=== PATIENT | male | born 1960 | race Caucasian/White ===

== ENCOUNTER 2023-03-31 06:39 | Outpatient (OUT) | payer OTHER, SELFPAY ==
--- NOTE | 2023-03-31 06:46 | MR_ITS ---
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 TECHNIQUE: A variety of imaging planes and parameters were utilized for visualization of suspected pathology. FINDINGS: For the purposes of numbering, sagittal T2 image # 8 extends from the T12 vertebral body superiorly to the S2-3 level inferiorly. PARASPINAL AREA: Normal with no visible mass. BONES: CORD/CAUDA EQUINA: Normal caliber, contour, and signal intensity. DISC LEVELS: 12-L1: No significant disc/facet abnormality, spinal stenosis, or foraminal stenosis. L1-L2: No significant disc/facet abnormality, spinal stenosis, or foraminal stenosis. L2-L3: Early degenerative disc disease is present without focal protrusion or neural impingement. L3-L4: No significant disc/facet abnormality, spinal stenosis, or foraminal stenosis. L4-L5: Mild right, moderate left foramen narrowing. No significant central canal narrowing. Mild diffuse disc bulging with minimal disc at reduction. Mild degenerative facet arthropathy and ligamentum flavum thickening. L5-S1: Minimal central canal and bilateral foramen narrowing. Mild diffuse disc bulging with posterior central disc protrusion projecting 5 mm into the central canal. Moderate disc height reduction. Mild right, moderate left degenerative facet arthropathy. IMPRESSION: 1. L4-5 moderate left foramen narrowing which may contribute to patient's symptoms. 2. L5-S1 disc protrusion without significant central canal or foramen narrowing. No appreciable annular tear. Electronically authenticated by: GARCIA VERMA Date: 03/31/2023 15:20
== END 2023-03-31 06:40 ==
PROVIDERS: PCP Family Medicine; Visit Provider Family Medicine
DX: M51.17 Intervertebral disc disorders with radiculopathy, lumbosacral region (principal)
CPT/HCPCS: 72148

== ENCOUNTER 2023-05-27 12:04 | Outpatient (OUT) | payer OTHER, SELFPAY ==
--- NOTE | 2023-05-27 13:30 | CA_ITS ---
[facility] Test Date: 2023-05-27 Pat Name: Harrison Nichols Department: Room: - Gender: Male Material Expediter: DIPIKA LOYOLA : 1960 Requested By: [id number] Order Number: [id number] Reading MD: JANET GRIFFIN Interpretive Statements Biphasic doppler waveforms PVR waveforms with normal upstroke, amplitude and dicrotic notch Right: - no significant pressure gradient between cuffs - normal STEPHANIE Left: - no significant pressure gradient between cuffs - normal STEPHANIE Impression: Normal arterial evaluation of the lower extremities without hemodynamic impairment of the B/L lower extremities at rest (right STEPHANIE 1.20, left STEPHANIE 1.12) Electronically Signed On 05-28-2023 7:24:44 EDT by JANET GRIFFIN
== END 2023-05-27 12:05 | disposition home or self-care (01) ==
LOC: CARD 12:04
PROVIDERS: PCP Family Medicine; Visit Provider Physician Assistant
DX: R09.89 Other specified symptoms and signs involving the circulatory and respiratory systems (principal)
CPT/HCPCS: 93923

== ENCOUNTER 2023-11-13 09:05 | Outpatient (OUT) | payer OTHER, SELFPAY ==
[2023-11-13 09:20] LABS: Basophils Percent Auto 0.5 % (0.2-2.0); Eosinophils Absolute Auto 0.3 10^3/uL (0.0-0.7); Eosinophils Percent Auto 3.8 % (0.9-7.0); Hematocrit 50.5 % (42.0-54.0); Immature Granulocytes Abs Auto 0.03 10^3/uL (0.00-0.03); Immature Granulocytes Pct Auto 0.4 % (0.0-0.5); Lymphocytes Absolute Auto 2.1 10^3/uL (1.2-3.8); Lymphocytes Percent Auto 28.5 % (20.5-60.0); Mean Corpuscular HGB Conc 33.7 g/dL (29.9-35.2); Mean Corpuscular Hemoglobin 28.7 pg (25.9-34.0); Mean Corpuscular Volume 85.2 fL (80.0-94.0); Mean Platelet Volume 9.4 fL (9.5-13.5); Monocytes Absolute Auto 0.9 10^3/uL (0.3-0.8); Monocytes Percent Auto 11.6 % (1.7-12.0); Neutrophils Percent Auto 55.2 % (43.0-75.0); Platelet Count 235 10^3/uL (150-450); Red Blood Count 5.93 10^6/uL (4.70-6.10); Red Cell Distribution Width 13.6 % (11.0-15.0); White Blood Count 7.3 10^3/uL (4.0-11.0)
[2023-11-13 09:38] LABS: Estimated Average Glucose 126 mg/dL
[2023-11-13 10:21] LABS: Alanine Aminotransferase 42 U/L (16-63); Albumin Globulin Ratio 0.9; Albumin Level 3.7 g/dL (3.4-5.0); Alkaline Phosphatase 58 U/L (46-116); Anion Gap 9.6; Aspartate Amino Transferase 20 U/L (15-37); BUN Creatinine Ratio 13.4; Bilirubin Total 0.6 mg/dL (0.2-1.0); Calcium 9.4 mg/dL (8.5-10.1); Carbon Dioxide 35.5 mmol/L (21.0-32.0); Chloride 99 mmol/L (98-107); Cholesterol 166 mg/dL (<=200); Estimated GFR (African America >60 (>=60); Estimated GFR (Non-African Ame 57 (>=60); Free T3 2.91 pg/mL (2.18-3.98); Globulin 4.3 g/dL; Glucose 108 mg/dL (74-106); HDL Cholesterol 56 mg/dL (40-60); LDL Cholesterol Calculated 89.2 mg/dL; Potassium 3.1 mmol/L (3.5-5.1); Sodium 141 mmol/L (136-145); Thyroid Stimulating Hormone 3.282 uIU/mL (0.358-3.740); Triglycerides 104 mg/dL (<=150); VLDL CHOLESTEROL 20.8 mg/dL
[2023-11-13 10:26] LABS: Prostate Specific Antigen Scrn 1.26 ng/mL (<=4.00)
== END 2023-11-13 09:06 | disposition home or self-care (01) ==
LOC: LAB 09:06
PROVIDERS: PCP Family Medicine; Visit Provider Family Medicine
DX: Z00.00 Encounter for general adult medical examination without abnormal findings (principal); E78.5 Hyperlipidemia, unspecified; R73.09 Other abnormal glucose; Z12.5 Encounter for screening for malignant neoplasm of prostate
CPT/HCPCS: 36415; 80053; 80061; 83036; 84436; 84443; 84481; 85025; G0103

== ENCOUNTER 2024-03-12 08:12 | Outpatient (OUT) | payer OTHER, SELFPAY ==
--- NOTE | 2024-03-12 08:20 | XR_ITS ---
[address] [address] Patient Name: KIM BOWEN MRN: [id number] date: 1960 Sex: M Assigned Patient Location: LAB Current Patient Location: LAB Accession/Order Number: [id number] Exam Date: 03/12/2024 08:25 Report Date: 03/12/2024 09:35 At the request of: AVI YEPEZ Procedure: XR knee LT 3V PROCEDURE: XR knee LT 3V COMPARISON: None. HISTORY: Left Knee Pain M25.562 FINDINGS: BONES:No acute fracture or dislocation. Minimal degenerative changes with marginal osteophyte formation. SOFT TISSUES:Negative. No visible soft tissue swelling. EFFUSION:None visible. OTHER: Negative. XR/XR knee LT 3V IMPRESSION: No acute abnormality Electronically authenticated by: OSCAR FRANCO Date: 03/12/2024 09:35
--- OUTSIDE RECORDS SUMMARY | 2024-03-12 08:24 | XMS_ITS | CCD ---
Author Organization [facility] Care Team Providers Care University Professor Name Role Phone Unavailable Unavailable DR AVI CERVANTES Attending Unavailable DR AVI CERVANTES Admitting Unavailable DR AVI CERVANTES Attending Unavailable DR AVI CERVANTES Admitting Unavailable DR AVI CERVANTES Consulting Unavailable WEST, DR OSCAR Ingram Consulting Unavailable Avi Cervantes Unavailable MD Avi Cervantes Primary Care Provider [phone] Bijan Betts Jr Attending Provider [phone] Bijan Betts Jr Attending Unavailable Bijan Betts Jr Admitting Unavailable Avi Cervantes Primary Care Unavailable Leslie DAVALOS, Dr. Reilly Hernandez Referring Unavailable Leslie DAVALOS, Dr. Reilly Hernandez Attending Unavailable Dr. Avi Cervantes Primary Care Unavail able Avi Cervantes MD Unavailable Avi Cervantes MD Primary Care Provider [phone] DARREN HARRIS Attending Unavailable AVI CERVANTES Primary Care Unavailable DARREN HARRIS Attending Unavailable JESSICA CAMP Admitting Unavailable JESSICA CAMP Attending Unavailable JESSICA CAMP Referring Unavailable JUAN R BEY Attending Unavailable AVI CERVANTES Primary Care Unavailable Allergies Allergy Classification Reported Allergen(s) Allergy Type Date of Onset Reaction(s) Facility (13 sources) Amoxicillin; Translations: [amoxicillin] Drug Allergy 09-26-2020 Judith Beck [facility] (1 source) Amoxicillin Drug Allergy [facility] (1 source) traMADol Drug Allergy [facility] (1 source) Amoxicillin Drug Allergy 09-26-2020 [facility] Medications Current Medications Medication Drug Class(es) Dates Sig (Normalized) Sig (Original) ascorbic acid 1000 mg oral tablet (1 source) Vitamin C Start: 09-26-2020 take 1 g by mouth once daily Ascorbic Acid (Vitamin C) (Vitamin C) 1,000 mg Tablet Active 1 GM PO Daily September 26, 2020 1:00am aspirin 81 mg delayed release oral tablet (10 sources) Platelet Aggregation Inhibitor, Nonsteroidal Anti-inflammatory Drug Start: 09-26-2020 take 81 mg by mouth once daily Aspirin Active 81 MG PO Daily September 26, 2020 1:00am aspirin 81 mg ca p Take by mouth. 0 Active Comment on above: Take by mouth. atorvastatin 40 mg oral tablet (1 source) HMG-CoA Reductase Inhibitor Start: 09-26-20 take 40 mg by mouth once daily Atorvastatin Active 40 MG PO Daily September 26, 2020 1:00am carvedilol 6.25 mg oral tablet (1 source) alpha-Adrenergic Pina, beta-Adrenergic Pina Start: 09-26-20 take 6.25 mg by mouth twice daily Carvedilol Active 6.25 MG PO Twice daily September 26, 2020 1:00am fexofenadine hydrochloride 180 mg oral tablet (1 source) Histamine-1 Receptor Antagonist Start: 09-26-20 take 180 mg by mouth once daily Fexofenadine Active 180 MG PO Daily September 26, 2020 1:00am fluocinonide 0.5 mg/ml topical cream (1 source) Corticosteroid Start: 09-26-20 Fluocinonide Active 1 APPLIC TOPICAL Daily September 26, 2020 1:00am Multivitamin preparation (1 source) Start: 09-26-20 take 1 tablet by mouth once daily in the morning Multivitamin Active 1 TAB PO Every morning September 26, 2020 1:00am Completed/Discontinued Medications Medication Drug Class(es) Dates Sig (Normalized) Sig (Original) acetaminophen 325 mg / HYDROcodone bitartrate 5 mg oral tablet (8 sources) Opioid Agonist Start: 05-02-2023 take 1 tablet by mouth every six hours as needed HYDROcodone-aceta minophen (NORCO) 5-325 mg per tablet Take 1 tablet by mouth every 6 hours as needed. 0 05/02/2023 Active Start: 09-26-2020 take 1 tablet by zainab th every six hours Hydrocodone-Acetaminophen Active 1 TAB P O Q6H September 26, 2020 1:00am [place] 5-325 MG T ABS TAKE 1 TABLET EVERY 4 TO 6 HOURS NEEDED. Quantity: 0 Refills: 0 Ordered: 13-May-2023 DO Active Comment on above: Take 1 tablet by zainab th every 6 hours as needed. betamethasone 0.5 mg/ml / clotrimazole 10 mg/ml topical cream (5 sources) Azole Antifungal, Corticosteroid Start: 023 clotrimazole-betameth asone (LOTRISONE) cream APPLY TO BOTH FEET TWICE A DAY 0 05/13/2023 Active Comment on above: APPLY TO BOTH FEET T WICE A DAY chlorthalidone 25 mg oral tablet (10 sources) Thiazide-like Diuretic Start: 020 take 1 tablet by mouth once daily at mealtime chlorthalidone (HYGROTON) 25 mg tablet TAKE 1 TABLET BY MOUTH EVERY DAY IN THE MORNING WITH FOOD FOR 90 DAYS 0 04/29/2023 Active Comment on above: TAKE 1 TABLET BY ZAINAB TH EVERY DAY IN THE MORNING WITH FOOD FOR 90 DAYS famotidine 40 mg oral tablet (4 sources) Histamine-2 Receptor Antagonist take 1 tablet by mouth at bedtime Famotidine 40 MG Oral Tablet TAKE 1 TABLET AT BEDTIME. Quantity: 30 Refills: 1 Ordered: 07-May-2022 DO Active gabapentin 300 mg oral capsule (7 sources) Anti-epileptic Agent Start: 023 take 1 capsule by mouth twice daily gabapentin (NEURONTIN) 300 mg capsule Take 300 mg by mouth twice daily. 0 05/27/2023 Active take 1 capsule by mouth twice da jose Gabapentin 300 MG Oral Capsule TAKE 1 CAPSULE TWICE DAILY. Quantity: 0 Refills: 0 Ordered: 13-May-2023 DO Active Comment on above: Take 300 mg by mouth twice daily. omeprazole 40 mg delayed release oral capsule (10 sources) Proton Pump Inhibitor Start: 09-26-2020 omeprazole (PRILOSEC) 40 mg capsule rosuvastatin calcium 20 mg oral tablet (9 sources) HMG-CoA Reductase Inhibitor Start: 05-30-2023 rosuvastatin (CRESTOR) 20 mg tablet Start: 12-10-2021 take 1 tablet by zainab th at bedtime Rosuvastatin Calcium 20 MG Oral Tablet take 1 tablet by mouth at bedtime Quantity: 90 Refills: 3 Ordered: 13-May-2023 Reilly Nelson MD Start : 10-Dec-2021 Active Problems Active Problems Problem Classification Problem Date Documented Date Episodic/Chronic Coronary atherosclerosis and other heart disease (4 sources) Coronary arteriosclerosis; Translations: [Coronary atherosclerosis of unspecified type of vessel, [place] or graft] Chronic Diabetes mellitus without complication (1 source) Other abnormal glucose; Translations: [OTHER ABNORMAL GLUCOSE] Onset: 12-21-2021 Episodic Disorders of lipid metabolism (5 sources) Hyperlipidemia; Translations: [Other and unspecified hyperlipidemia] Chronic Esophageal disorders (4 sources) Gastroesophageal reflux disease; Translations: [Esophageal reflux] Chronic Essential hypertension (4 sources) Benign essential hypertension; Translations: [Benign essential hypertension] Chronic Immunizations and screening for infectious disease (4 sources) Patient encounter status; Translations: [Other specified vaccination] Episodic Other nervous system disorders (1 source) Meralgia paresthetica of left leg; Translations: [Meralgia paresthetica, left lower limb] 2023 Chronic Other nervous system disorders (1 source) Meralgia paresthetica, left lower limb; Translations: [Meralgia paresthetica of left side] Onset: 2023 Chronic Other nervous system disorders (1 source) Other chronic pain; Translations: [Chronic midline low back pain without sciatica] Onset: 2023 Chronic Other nutritional; endocrine; and metabolic disorders (4 sources) Obesity; Translations: [Obesity, unspecified] Chronic Other screening for suspected conditions (not mental disorders or infectious disease) (1 source) Encounter for screening for malignant neoplasm of prostate; Translations: [ENC SCREEN MALIG NEOPLASM PROSTATE] Onset: 12-21-2021 Episodic Spondylosis; intervertebral disc disorders; other back problems (6 sources) Prolapsed lumbar intervertebral disc; Translations: [Other intervertebral disc displacement, lumbar region] Onset: 06-02-2023 06-02-2023 Chronic Spondylosis; intervertebral disc disorders; other back problems (7 sources) Lumbar radiculopathy; Translations: [Radiculopathy, lumbar region] Onset: 06-02-2023 06-02-2023 Episodic Unclassified (1 source) LOW BACK PAIN, UNSPECIFIED; Translations: [LOW BACK PAIN, UNSPECIFIED] Onset: 12-21-2021 Unclassified (1 source) Chronic midline low back pain without sciatica; Translations: [Chronic midline low back pain without sciatica] Onset: 2023 Past or Other Problems Problem Classification Problem Date Documented Da te Episodic/Chronic Unclassified (5 sources) Never smoked tobacco; Translations: [Never a smoker] Results Test Name Value Interpretation Reference Range Facility OV 2023 CNOV Office Visit (SPSLU ) KIM NICHOLS ([id number]) 1960 M Date Time Provider Department 08/04/23 8:00 AM JUAN R BEY [facility] During your visit today, we recorded the following information about you: Weight Height 120.2 kg 1.829 m Bossman Saunders 2023 9:14 AM Signed Pt has been identified by name and birthdate: Yes Allergies reviewed: Yes Medication - prescribed and OTC reviewed and updated: Yes Latex allergy: no. Have you had a recent problem with pain? Yes LOCATION: Lower back pain with radiating left left PAIN SCALE: 3 on a scale of 0-10 worse at 10-10 PAIN CHARACTER: burning and numbness DURATION: (How long have you had the pain?) 3 years FREQUENCY: (How often does the pain occur?) occurs intermittently AGGRAVATING FACTORS: activity, standing, and walking ALLEVIATING FACTORS: sitting, resting, lying supine, and medications - muscle relaxants, NSAIDs, and opioids Medications: See medication reconciliation list in [facility] MEDICATIONS: Gabapentin, [place], Tylenol Have you ever seen a pain management physician: No Have you ever taken any pain medications (Narcotics): Yes; Type(s) AND Duration: 1 day How is your appetite?: normal Do you feel safe in the home? Yes Do you have concerns about falling or have you fallen in the past year? No Do you have difficulty performing or completing routine daily living activities? No Juan R Andrew MD 2023 9:14 AM Signed SPINE SURGERY NEW PATIENT This is an in-person visit. PCP: Avi Cervantes MD REFERRING PROVIDER: Clara PACHECO SUBJECTIVE HISTORY OF PRESENT ILLNESS: Kim Nichols is a 63 year old male presenting alone. CHIEF COMPLAINT: Left lateral thigh altered sensation, non radiating, low back pain PRECIPITATING EVENT: None DURATION OF SYMPTOMS: Greater Than 6 Months 63M with isolated left lateral thigh altered sensation. Non radiating. Reports he can walk miles without issues, no radiating pain down his leg. Reports chronic history of low back pain, but left thigh altered sensation is new within last 6 months. Denies it being painful. Reports he underwent L5 SUKUMAR with improvement in his symptoms for < 3 days. Denies bowel or bladder issues. 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 Denies any weakness. No pain, left thigh altered sensation. DERMATOMAL DISTRIBUTION: Not applicable AMBULATORY STATUS: Independent Community Distances ANTIPLATELET OR ANTICOAGULATION STATUS: No PREVIOUS CONSERVATIVE TREATMENTS: Membrane stabilizers PT HEP x 6 weeks Nsaids SUKUMAR left l5/s1 with Dr. Camp 07/01/2023 PREVIOUS SPINAL SURGERY: None ACTIVE PROBLEM LIST Lumbar Radiculopathy Displacement of Lumbar Intervertebral Disc Without Myelopathy No past medical history on file. No past surgical history on file. No family history on file. Social History Tobacco Use Smoking status: Never Smokeless tobacco: Never ALLERGIES Allergen Reactions Amoxicillin Hives, Rash MEDICATIONS: gabapentin (NEURONTIN) 300 mg capsule Take 300 mg by mouth twice daily. HYDROcodone-acetamino phen (NORCO) 5-325 mg per tablet Take 1 tablet by mouth every 6 hours as needed. omeprazole (PRILOSEC) 40 mg capsule rosuvastatin (CRESTOR) 20 mg tablet clotrimazole-betameth asone (LOTRISONE) cream APPLY TO BOTH FEET TWICE A DAY chlorthalidone (HYGROTON) 25 mg tablet TAKE 1 TABLET BY MOUTH EVERY DAY IN THE MORNING WITH FOOD FOR 90 DAYS aspirin 81 mg cap Take by mouth. REVIEW OF SYSTEMS: All are negative except those stated in the History of Present illness. Patient Entered Questionnaires Spine Questions 08/01/2023 08/03/2023 Pain Location: Lower back Lower back Pain Duration: More than 5 years - Pain over last 6 months: Every day or nearly every day in the past 6 months - Symptoms from neck/cervical spine: No No Employment Status: Retired - Involved in law suit/legal claim: No - PROMIS Score Percentiles Physical Health 08/01/2023 Physical Function Percentile 21* Sleep Percentile 12 Fatigue Percentile 24* Pain Interference Percentile 12 PROMIS SOCIAL ROLE SCORE 08/01/2023 Social Role Satisfaction Percentile 31 PROMIS Global Health Scale 08/01/2023 Physical Health Percentile 15 Mental Health Percentile 43 Percentiles provide an indication of how the patient's score ranks in relation to the general population. Higher percentile rankings indicate better function/quality of life. 50th percentile is the average of the general population and indicates half of respondents had a worse score. Depression Screening: PHQ-9 08/01/2023 Score 3 PHQ-9 Self-harm Question 08/01/2023 Thoughts that you would be better off , or of hurting yourself in some way 0 PHQ-9 Self-Harm (Item 9) response options: 0 Not at all 1 Several days 2 More than (more content not included)... [facility] 07-08-2023 [facility] Telephone (SPWYMN) KIM NICHOLS ([id number]) 1960 M Date Time Provider Department 07/08/23 JESSICA CAMP [facility] During your visit today, we recorded the following information about you: Stacy Gallagher RN 07/08/2023 12:56 PM Signed Post Spine Injection phone call: [phone] on 07/08/23 Patient denies fever, chills, new headache, prolonged numbness nor exacerbation of pain status. Injection site(s) flat and dry with no redness nor drainage. Pre Procedure Pain level: 4 Immediately Post Procedure 0 Percentage of pain relief: 70% Patient verbalized understanding that it may take up to 14 days to realize full benefit of spinal injection. Follow up as indicated on order: No follow -up Visit, patient instructed to call office 2-4 weeks. Patient reminded to bring pain diary to follow appointment. If follow up appointment indicated on order, patient encouraged to schedule follow up appointment 2-4 weeks post procedure by calling [phone] Patient does not have any questions or concerns. Patient will call office with any questions or concerns. Allergies As of Date: 07/08/2023 Noted Allergy Reaction AMOXICILLIN 09/26/2020 4 - Hives 2 - Rash Date Reviewed: 07/01/2023 Reviewed by: Fausto Pal, RN - Fully Assessed Reason for Visit: post injection follow up [Other] Prescriptions as of 07/08/2023 - gabapentin (NEURONTIN) 300 mg capsule Take 300 mg by mouth twice daily. - HYDROcodone-acetamino phen (NORCO) 5-325 mg per tablet Take 1 tablet by mouth every 6 hours as needed. - omeprazole (PRILOSEC) 40 mg capsule - rosuvastatin (CRESTOR) 20 mg tablet - clotrimazole-betameth asone (LOTRISONE) cream APPLY TO BOTH FEET TWICE A DAY - chlorthalidone (HYGROTON) 25 mg tablet TAKE 1 TABLET BY MOUTH EVERY DAY IN THE MORNING WITH FOOD FOR 90 DAYS - aspirin 81 mg cap Take by mouth. Problem List As Of Date 07/08/2023 Noted Resolved Lumbar radiculopathy [M54.16] 07/01/2023 Displacement of lumbar intervertebral disc with*07/01/2023 Encounter Status:Closed by STACY GALLAGHER on 07/08/23 [facility] HISTORY PHYSICALon HISTORY PHYSICAL HNO ID: [id number] Author: Sherice Galvin APRN.KNITTING DEMONSTRATOR Service: ? Author Type: Nurse Practitioner Type: HANDP Filed: 07/01/2023 9:05 AM Note Text: LOCAL PROCEDURE HISTORY AND PHYSICAL EXAM SERVICE DATE: 07/01/2023 SERVICE TIME: 9:04 AM Provisional Diagnosis/Treatment Plan: Transforaminal Lumbar epidural steroid injection Subjective HPI: This is a 62 year old male who presents with back pain MEDICATIONS: Prior to Admission medications as of 07/01/23 0857 Medication Sig Last Dose Taking gabapentin (NEURONTIN) 300 mg capsule Take 300 mg by mouth twice daily. 06/30/2023 Yes HYDROcodone-acetamino phen (NORCO) 5-325 mg per tablet Take 1 tablet by mouth every 6 hours as needed. 06/30/2023 Yes omeprazole (PRILOSEC) 40 mg capsule 06/30/2023 Yes rosuvastatin (CRESTOR) 20 mg tablet 06/30/2023 Yes clotrimazole-betameth asone (LOTRISONE) cream APPLY TO BOTH FEET TWICE A DAY 06/30/2023 Yes chlorthalidone (HYGROTON) 25 mg tablet TAKE 1 TABLET BY MOUTH EVERY DAY IN THE MORNING WITH FOOD FOR 90 DAYS 06/30/2023 Yes aspirin 81 mg cap Take by mouth. 06/30/2023 Yes ALLERGIES Allergen Reactions Amoxicillin Hives, Rash Objective PHYSICAL EXAM: The remainder of the physical exam is noncontributory. GENERAL: Alert, no distress, cooperative LUNGS: Lungs clear to auscultation, Good diaphragmatic excursion CARDIAC: Normal S1 and S2; no rubs, murmurs, or gallops BP 135/96 Pulse 74 Temp 36.3 ?C (97.4 ?F) (Temporal) Resp 16 SpO2 96% PAIN ASSESSMENT: PAIN EVALUATION 07/01/2023 0857 Pain Level: 4 Pain Location: Leg-Left Description: Numbness Assessment/Plan Active Problems: Lumbar radiculopathy (POA: Unknown) Assessment AND Plan: Transforaminal Lumbar epidural steroid injection Displacement of lumbar intervertebral disc without myelopathy (POA: Unknown) Assessment AND Plan: Transforaminal Lumbar epidural steroid injection Resolved Problems: * No resolved hospital problems. * Medication and Non-Pharmacologic VTE Prophylaxis/Anticoagu lants VTE Prophylaxis: NA SIGNATURE: Sherice Galvin APRN.CNP PATIENT NAME: Kim Nichols DATE: July 01, 2023 TIME: 9:04 AM Normal [facility] OPERATIVE NOon 07-01-2023 OPERATIVE NO HNO ID: [id number] Author: Jessica Camp DO Service: Physical Medicine AND Rehabilitation Author Type: Physician Type: Operative Report Filed: 07/01/2023 9:40 AM Note Text: PROCEDURE REPORT Surgery/Procedure Date: July 01, 2023 Interventionalist: Jessica Camp DO Procedure(s): Left L5 transforaminal epidural steroid injection Pre-Op/Pre-Procedure Diagnosis: Lumbar radiculopathy Post-Op Diagnosis: same SUBJECTIVE: Kim Nichols is a 62 year old male, who presents to the [facility] for a left L5 transforaminal epidural steroid injection. This is his first (1) procedure. He states he is NPO and has a road driver for return home. Pain is central low back, intermittently radiates to the left anterolateral thigh with burning/numbness, does not go distally. Pain is currently 2/10, but can get to 10/10 at the highest. I have reviewed the nurses notes and am aware of the patient's history. OBJECTIVE: Vital signs are documented in the paper chart prior to and throughout the procedure. INFORMED CONSENT: Risks, benefits, alternatives and personnel discussed with patient who consents to proceed. A formal sign in and timeout with team members and patient present were performed prior to procedure start/delivery of medication. PROCEDURE: Procedure: Left L5 Transforaminal Epidural Steroid Injection Kim Nichols was transferred to the Block Room. Time out was performed. After placement of routine monitors (blood pressure, pulse oximetry, and heart rate monitored by dedicated nurse), the procedure was performed in the usual manner. Anesthesia: Local only Start time: 927 Stop time: 934 Fluoroscopy time: 22 seconds Estimated blood loss: none Level: left L5 Technique: Patient positioned prone. Procedure area was prepped with Betadine and draped with sterile coverings. An oblique approach was used with C-arm guidance. The skin was anesthetized with 1% lidocaine. A #22 gauge short-bevel spinal needle was inserted to the proper location within the intervertebral foramen using intermittent fluoroscopy. Position was confirmed with iohexol contrast under live fluoroscopy. Needle position was verified in two views and epidurogram was visualized and recorded. 10 mg of dexamethasone and 2 cc of lidocaine 1% was injected. The spinal needle was then removed. Adequate hemostasis was obtained at the needle puncture site. The patient's back was cleaned and a sterile dressing was applied. Patient tolerated the procedure well and was taken conscious and in stable condition to the recovery room for observation. No complications as a result of this procedure. Post procedure precautions and instructions were reviewed with the patient who verbalized understanding. I/primary surgeon/proceduralist performed the entire procedure. No complications were encountered. Estimated blood loss: none Specimens: none Implanted devices: none Drains: none Post procedure physical exam unchanged from pre procedure. Significant findings: AP was oblique 5 left Oblique 35 L5 spinous process appears to have spina bifida occulta ASSESSMENT: Pre Procedure diagnosis: Lumbar radiculopathy Post-Procedure diagnosis: same Pre Procedure Pain Level: same as above Post Procedure Pain Level: as documented in nursing notes and paper chart Purposeful response to verbal or tactile stimulation: Yes PLAN: Post-procedure instructions reviewed with patient. Patient is to complete post-procedure pain diary and return for follow-up in 2-3 weeks. Patient is to contact our office with any question or if any side effects are noted. Kim Nichols was transferred to the recovery room and is to be discharged home in stable condition. DO Fátima Castrejon [facility] KIM NICHOLS ([id number]) 1960 M Date Time Provider Department 06/26/23 [facility] During your visit today, we recorded the following information about you: Oscar Rollins LPN 06/26/2023 9:20 AM Signed Phoned patient and message left for Kim to confirm appointment for Kim Nichols for spine procedure on 07/01/2023. Patient notified that [place] will call patient the night before with the time to arrive for injection. Patient verbalized understanding of the following: -Provided education on spine procedure and answered questions related to spine injection procedure. -Applied Technologist is needed to drive patient home. -NPO 6 hours prior to appointment, ok to take morning medications with sip of water. -Not to take any pain medications the day of injection to see how well injection works. -Do not take any NSAIDs/anti-inflammat ories (mobic, ibuprofen, advil, aleve, etc) the day of procedure for all lumbar, hip, and sacroiliac joint procedures. Hold NSAIDs for 1 day prior to procedure for cervical cases. Allergies reviewed: Yes Allergy to IV contrast dye or steroids: No Taking any antiplatelet/anticoag ulant (blood thinners): No Taking aspirin 81mg: Yes, requested to hold the day of procedure Any open wounds/sores?: Patient to report Taking Antibiotics?: Patient to report. Diabetic: No Patient given number [phone], spine injections schedulers, if there is any need to reschedule/ change appointment during normal business hours. Active MyChart users were informed to read MyChart procedure instructions prior to appointment. AMBULATORY PATIENT EDUCATION TOPIC: SPINE INJECTION PROCEDURE, PRE-INJECTION AND POST- INJECTION INSTRUCTIONS READINESS TO LEARN COGNITIVE ABILITY: ALERT AND ORIENTED MOTIVATION TO LEARN: Message FAMILY SUPPORT: Unable to assess - Family not present INSTRUCTION PROVIDED TO: Patient PATIENT LEARNS BEST BY: INDIVIDUAL INSTRUCTION FACTORS AFFECTING LEARNING: None PHYSICAL LIMITATIONS AFFECTING LEARNING: None LEARNING RESPONSE METHOD OF INSTRUCTION: TEACH BACK AND INDIVIDUAL INSTRUCTION PATIENT / FAMILY RESPONSE: VERBALIZED UNDERSTANDING OF PRE AND POST INJECTION INSTRUCTIONS Allergies As of Date: 06/26/2023 Noted Allergy Reaction AMOXICILLIN 09/26/2020 4 - Hives 2 - Rash Date Reviewed: 06/02/2023 Reviewed by: Anna Spencer MA - Fully Assessed Reason for Visit: Preparations For Procedures [899] Cmt: Pre-injection instructions Prescriptions as of 06/26/2023 - gabapentin (NEURONTIN) 300 mg capsule Take 300 mg by mouth twice daily. - HYDROcodone-acetamino phen (NORCO) 5-325 mg per tablet Take 1 tablet by mouth every 6 hours as needed. - omeprazole (PRILOSEC) 40 mg capsule - rosuvastatin (CRESTOR) 20 mg tablet - clotrimazole-betameth asone (LOTRISONE) cream APPLY TO BOTH FEET TWICE A DAY - chlorthalidone (HYGROTON) 25 mg tablet TAKE 1 TABLET BY MOUTH EVERY DAY IN THE MORNING WITH FOOD FOR 90 DAYS - aspirin 81 mg cap Take by mouth. Problem List As Of Date: 06/26/2023 (None) Encounter Status:Closed by OSCAR ROLLINS on 06/26/23 [facility] CNOVon 06-02-2023 CNOV Office Visit (SPNSMN ) KIM NICHOLS ([id number]) 1960 M Date Time Provider Department 06/02/23 1:40 PM DARREN HARRISMN During your visit today, we recorded the following information about you: Pulse Respiration Blood pressure Weight 63/minute 18/minute 128/84 117 kg Height 1.829 m Darren Harris APRN.CNP 06/03/2023 1:01 PM Signed SPINE SURGERY OUTPATIENT CONSULT This is an in-person visit. SERVICE DATE: 06/02/2023 PCP: No primary care provider on file. REFERRING PROVIDER: No referring provider defined for this encounter. Consult requested for an opinion regarding the evaluation and treatment of left leg pain. My final impression and recommendations will be communicated back to the requesting physician by way of the shared medical record or letter via US mail. SUBJECTIVE Kim Nichols is a 62 year old male presenting alone. CHIEF COMPLAINT: low back pain and left leg pain Patient states that he has always had LBP but over the last year it has gotten worse and he started having left leg pain. Denies any weakness, Denies bowel and bladder incontinence. Denies trouble using hands. Denies unsteady gait and feeling unbalanced. States he gets intermittent numbness in his leg but this is rare, denies right leg symptoms. His PCP started him on Gabapentin BID 300 mg which states has helped significantly with him pain. He also is prescribed [place] for breakthrough pain which he only takes PRN. He has not done any recent PT, discussed with patient that PT will be beneficial to him. 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 Never tried injections HISTORY OF PRESENT ILLNESS PRECIPITATING EVENT: None DURATION OF SYMPTOMS: Greater Than 1 Year PAIN EVALUATION 06/02/2023 1322 Pain Level: 3 Pain Location: Back-Lower Description: Aching;Dull Duration Amount of Time: 7 Duration Units: Months Frequency: Intermittent Intervention/Comfort measure: Medication;Heat;Exerc ise Pain Radiation: down the left thigh, below the left knee, and to the left foot/feet Aggravating Factors: Flexion, Standing, Walking Alleviating Factors: Medications DERMATOMAL DISTRIBUTION: Left: L4 and L5 AMBULATORY STATUS: Independent Community Distances ANTIPLATELET OR ANTICOAGULATION STATUS: No PREVIOUS CONSERVATIVE TREATMENTS: See HPI PREVIOUS SPINAL SURGERY: None There is no problem list on file for this patient. No past medical history on file. No past surgical history on file. No family history on file. Social History Tobacco Use Smoking status: Never Smokeless tobacco: Never ALLERGIES Allergen Reactions Amoxicillin Hives, Rash MEDICATIONS: gabapentin (NEURONTIN) 300 mg capsule Take 300 mg by mouth twice daily. HYDROcodone-acetamino phen (NORCO) 5-325 mg per tablet Take 1 tablet by mouth every 6 hours as needed. omeprazole (PRILOSEC) 40 mg capsule rosuvastatin (CRESTOR) 20 mg tablet clotrimazole-betameth asone (LOTRISONE) cream APPLY TO BOTH FEET TWICE A DAY chlorthalidone (HYGROTON) 25 mg tablet TAKE 1 TABLET BY MOUTH EVERY DAY IN THE MORNING WITH FOOD FOR 90 DAYS aspirin 81 mg cap Take by mouth. REVIEW OF SYSTEMS: PAIN ASSESSMENT: See HPI. GENERAL: Denies fever, chills malaise and weight loss. HEENT: No recent change in vision or hearing. CARDIOVASCULAR: Denies chest pain, history of A-fib, valvular disease, or pacemaker/ICD. RESPIRATORY: Denies SOB, sputum production, and hemoptysis. GI: Denies GI ulcers, inflammatory disease, or liver disease. : Denies change in frequency or urgency, kidney disease, and burning with urination. MUSCULOSKELETAL: Positive for low back pain SKIN: Denies rash or itching. PSYCHOLOGICAL: Denies uncontrolled depression or anxiety. NEURO: Denies CVA, seizures, headaches. ENDOCRINE: Denies diabetes, thyroid disease. HEMATOLOGY/LYMPHOLOGY : Denies cancer, bleeding or clotting disorders, anemia,and DVT's. ALLERGIC/IMMUNOLOGICA L: Denies risks for infection, or recent MRSA infections. Patient Entered Questionnaires PROMIS Score Percentiles Percentiles provide an indication of how the patient's score ranks in relation to the general population. Higher percentile rankings indicate better function/quality of life. 50th percentile is the average of the general population and indicates half of respondents had a worse score. Depression Screening: PHQ-9 Self-Harm (Item 9) response options: 0 Not at all 1 Several days 2 More than half the days 3 Nearly every day PHQ-9 Levels: 0-4 No to mild depression 5-9 Mild depression 10-14 Moderate depression 15-19 Moderately severe depression 20-27 Severe depression OBJECTIVE: PHYSICAL EXAM BP 128/84 Pulse 63 Resp 18 Ht 182.9 cm (6') Wt 117 kg (258 lb) SpO2 95% BMI 34.99 kg/m? GENERAL APPEARANCE: Well nourished, well de (more content not included)... Normal [facility] Office Visit (Cardiology)on 05-13-2023 Follow-up visit Diagnoses/Problems Assessed Coronary disease (414.00) (I25.10) Essential hypertension, benign (401.1) (I10) Hyperlipidemia (272.4) (E78.5) Class 2 obesity with body mass index (BMI) of 36.0 to 36.9 in adult (278.00,V85.36) (E66.9,Z68.36) Never a smoker Orders Class 2 obesity with body mass index (BMI) of 36.0 to 36.9 in adult Healthy Weight Tips; Status:Complete - Retrospective Authorization; Done: [id number] Some eating tips that can help you lose weight.; Status:Complete - Retrospective Authorization; Done: [id number] Coronary disease, Hyperlipidemia Renew: Aspirin EC Low Dose 81 MG Oral Tablet Delayed Release; TAKE 1 TABLET DAILY DIRECTED Hyperlipidemia Renew: Rosuvastatin Calcium 20 MG Oral Tablet; take 1 tablet by mouth at bedtime SocHx: Never a smoker Tobacco Use Screening; Status:Complete; Done: [id number] Patient Instructions Please bring all medicines, vitamins, and herbal supplements with you when you come to the office. Prescriptions will not be filled unless you are compliant with your follow up appointments or have a follow up appointment scheduled as per instruction of your physician. Refills should be requested at the time of your visit. Follow up as needed only Chief Complaint KIM NICHOLS is being seen for an annual follow-up of. History of Present Illness Patient returns in follow-up of problems as noted. In the interim he is done well. He has been aggressively dieting and has lost 20 or 30 pounds. He is pleased in this regard and this was discussed in great detail. I advised him that continued weight loss will more than likely bring his blood pressure down and blood sugar under control and ultimately his blood pressure medicine may have to be reduced or discontinued. He understands the concept well and will keep an eye out for orthostatic symptomatology We discussed other management. I believe he requires aspirin lifelong and the rationale for this was explained. I also advocated lifelong treatment of hyperlipidemia with statins. He understands this recommendation as well. He expresses a desire to henceforth follow-up predominantly with primary care physician and I advised him this is a good idea and acceptable. He is on appropriate therapy and I will defer management of blood sugar and hypertension influenced by weight loss to the primary care physician henceforth. He was educated regarding symptoms to watch for and encouraged to call if they arise or occur. Surgical History Problems History of Cardiac catheterization History of Cholecystectomy History of Complete colonoscopy Current Meds Medication NameInstruction Aspirin EC Low Dose 81 MG Oral Tablet Delayed ReleaseTAKE 1 TABLET DAILY DIRECTED. Chlorthalidone 25 MG Oral TabletTAKE 1 TABLET DAILY. Famotidine 40 MG Oral TabletTAKE 1 TABLET AT BEDTIME. Gabapentin 300 MG Oral CapsuleTAKE 1 CAPSULE TWICE DAILY. [place] 5-325 MG TABSTAKE 1 TABLET EVERY 4 TO 6 HOURS NEEDED. Omeprazole 40 MG Oral Capsule Delayed ReleaseTAKE 1 CAPSULE Daily Rosuvastatin Calcium 20 MG Oral Tablettake 1 tablet by mouth at bedtime Allergies Medication amoxicillin Adverse Reaction; Rash; Recorded By: Jolanta Huitron; 12/10/2021 10:44:02 AM Social History Problems Caffeine use (V49.89) (Z78.9) occasional Consumes alcohol (V49.89) (Z78.9) socially Never a smoker No illicit drug use Review of Systems Constitutional: not feeling tired. Eyes: no eyesight problems. ENT: no hearing loss and no nosebleeds. Cardiovascular: no intermittent leg claudication and as noted in HPI. Respiratory: no chronic cough and no shortness of breath. Gastrointestinal: no change in bowel habits and no blood in stools. Genitourinary: no urinary frequency and no hematuria. Skin: no skin rashes. Neurological: no seizures and no frequent falls. Psychiatric: no depression and not suicidal. All other systems have been reviewed and are negative for complaint. Vitals Vital Signs Recorded: [id number] 11:22AM Heart Rate64, R Radial Qcdymcdv897, RUE, Sitting Sikxsasag15, RUE, Sitting Height6 ft Izuwmb519 lb BMI Abbkkghgnn68.21 kg/m2 BSA Calculated2.41 Tobacco Useb) No PHQ-2 #1. Over the last 2 weeks have you felt down, depressed or hopeless? (If yes, answer PHQ-9 below)No PHQ-2 #2. Over the last 2 weeks have you felt little interest or pleasure in doing things? (If yes, answer PHQ-9 below)No Physical Exam Constitutional: alert and in no acute distress. Eyes: no erythema, swelling or discharge from the eye . Neck: neck is supple, symmetric, trachea midline, no masses and no thyromegaly . Pulmonary: no increased work of breathing or signs of respiratory distress and lungs clear to auscultation. Cardiovascular: carotid pulses 2+ bilaterally with no bruit , JVP was normal, no thrills , regular rhythm, normal S1 and S2, no murmurs , pedal pulses 2+ bilaterally and no edema . Abdomen: abdomen non-tender, no masses and no hep (more content not included)... Normal [facility] Tobacco Screening.on 023 Adult depression screening assessment No [facility] [address] DO Work Phone: Tobacco use status CPH[facility] b) No [facility] DO Work Phone: XR knee LT 4V*on 07-17-2022 XR knee LT 4V* [facility] [place] [address] [place] [address] XRay Report Signed Patient: Kim Nichols MR#: [id number] : 1960 Acct:[id number] Age/Sex: 61 / M ADM Date: 07/17/22 Loc: [place] Room: Type: [facility] Attending Dr: Bijan Betts Jr, DO Copies to: Bijan Betts DO Ordering Provider: Bijan Betts DO Date of Service: 07/17/22 XR/XR knee LT 4V*: ICO-SLIP TODAY LEFT KNEE - 4 views COMPARISON: None CLINICAL DATA: Patient slipped on the floor and fell. Anterior left knee pain. AP, lateral and both oblique views were obtained. There is no acute fracture or dislocation. There is no disproportionate joint space narrowing or prominent hypertrophy. A fabella is seen at the popliteal fossa laterally. No significant knee effusion or focal soft tissue swelling. XR/XR knee LT 4V* IMPRESSION: NO ACUTE BONY INJURY. Impression dictated by: Stacy Ellis M.D.07/17/2022 1:18 PM Dictation Location: [place] [address] Transcribed By: ANN 07/17/22 1318 Dictated By: Stacy Ellis MD 07/17/22 1315 Signed By: 07/17/22 1318 [facility] Tobacco Screening.on 022 Adult depression screening assessment No [facility] 250 DO Work Phone: Fall risk assessment c) Not medically indicated [facility] 250 DO Work Phone: Tobacco use status CPHS b) No [facility] 250 DO Work Phone: H PYLORI ANTIBODY IGGon 11-28 H. PYLORI IGG ABS 0.45 Index Value Normal 0.00-0.79 [facility] Comment on above: Result Comment: Nega tive <0.80 Equivocal 0.80 - 0.89 Positive >0.89 Performed By: #### L IPID, TSH, T7, URIC, CMP #### [facility] [address] [address] [address] Conor Chan INSULINon 12-21-2021 Insulin 55.2 uIU/mL Critically high 2.6-24.9 [facility] Comment on above: Performed By: #### I NSULIN #### [facility] [address] [place] [address] Dr. Conor Chan TESTOSTERONE, TOTALon 2021 Testosterone [Mass/Vol] 380 ng/dL Normal 264-916 [facility] Comment on above: Result Comment: Adul t male reference interval is based on a population of healthy nonobese males (BMI <30) between 19 and 39 years old. Travon et.al. JCEM 2017,102;[id number]. PMID: [id number]. Performed By: #### L IPID, TSH, T7, URIC, CMP #### [facility] [address] [address] [address] Conor Chan CBC AUTO DIFFon 12-20-2021 BASO # 0.0 103/ul Normal 0.0-0.1 [facility] Comment on above: Performed By: #### C BC #### [facility] [address] [place] [address] Dr. Conor Chan Basophils/100 WBC (Bld) 0.5 % Normal 0.2-2.0 [facility] Comment on above: Performed By: #### C BC #### [facility] [address] [place] [address] Dr. Conor Chan EO # 0.2 103/ul Normal 0.0-0.7 [facility] Comment on above: Performed By: #### C BC #### [facility] [address] [place] [address] Dr. Conor Chan Eosinophils/100 WBC (Bld) 3.5 % Normal 0.9-7.0 [facility] Comment on above: Performed By: #### C BC #### [facility] [address] [place] [address] Dr. Conor Chan Erythrocyte distribution width (RBC) [Ratio] 13.8 % Normal 11.0-15.0 [facility] Comment on above: Performed By: #### C BC #### [facility] [address] [place] [address] Dr. Conor Chan Hematocrit (Bld) [Volume fraction] 48.5 % Normal 42.0-54.0 [facility] Comment on above: Performed By: #### C BC #### [facility] [address] [place] [address] Dr. Conor Chan Hemoglobin (Bld) [Mass/Vol] 16.3 g/dL Normal 14.0-18.0 [facility] Comment on above: Performed By: #### C BC #### [facility] [address] [place] [address] Dr. Conor Chan IG # 0.02 10e3/ul Normal 0.00-0.03 [facility] Comment on above: Performed By: #### C BC #### [facility] [address] [place] [address] Dr. Conor Chan IG % 0.3 % Normal 0.0-0.5 [facility] Comment on above: Performed By: #### C BC #### [facility] [address] [address] [address] Conor Chan LYMPH # 1.4 103/ul Normal 1.2-3.8 [facility] Comment on above: Performed By: #### C BC #### [facility] [address] [address] [address] Conor Chan Lymphocytes/100 WBC (Bld) 21.7 % Normal 20.5-60.0 [facility] Comment on above: Performed By: #### C BC #### [facility] [address] [place] [address] Dr. Conor Chan MANUAL DIFF REQ NO Normal [facility] Comment on above: Performed By: #### C BC #### [facility] [address] [place] [address] Dr. Conor Chan MCH (RBC) [Entitic mass] 28.5 pg Normal 25.9-34.0 [facility] Comment on above: Performed By: #### C BC #### [facility] [address] [place] [address] Dr. Conor Chan MCHC (RBC) [Mass/Vol] 33.6 g/dL Normal 29.9-35.2 [facility] Comment on above: Performed By: #### C BC #### [facility] [address] [place] [address] Dr. Conor Chan MCV (RBC) [Entitic vol] 84.9 fL Normal 80.0-94.0 [facility] Comment on above: Performed By: #### C BC #### [facility] [address] [place] [address] Dr. Conor Chan MONO # 0.6 103/ul Normal 0.3-0.8 [facility] Comment on above: Performed By: #### C BC #### [facility] [address] [place] [address] Dr. Conor Chan Monocytes/100 WBC (Bld) 9.3 % Normal 1.7-12.0 [facility] Comment on above: Performed By: #### C BC #### [facility] [address] [address] [address] Conor Chan NEUT # 4.1 103/ul Normal 1.4-6.5 [facility] Comment on above: Performed By: #### C BC #### [facility] [address] [place] [address] Dr. Conor Chan Neutrophils/100 WBC (Bld) 64.7 % Normal 43.0-75.0 [facility] Comment on above: Performed By: #### C BC #### [facility] [address] [place] [address] Dr. Conor Chan Platelet mean volume (Bld) [Entitic vol] 9.8 fL Normal 9.5-13.5 [facility] Comment on above: Performed By: #### C BC #### [facility] [address] [place] [address] Dr. Conor Chan PLT 235 103/ul Normal 150-450 [facility] Comment on above: Performed By: #### C BC #### [facility] [address] [place] [address] Dr. Conor Chan RBC 5.71 106/ul Normal 4.70-6.10 [facility] Comment on above: Performed By: #### C BC #### [facility] [address] [place] [address] Dr. Conor Chan WBC 6.4 103/ul Normal 4.0-11.0 [facility] Comment on above: Performed By: #### C BC #### [facility] [address] [place] [address] Dr. Conor Chan FREE THYROXINE INDEX T7on FTI 2.89 Normal [facility] Comment on above: Performed By: #### L IPID, TSH, T7, URIC, CMP #### [facility] [address] [place] [address] Dr. Conor Chan T3U 34.0 % Normal 23.5-40.5 [facility] Comment on above: Performed By: #### L IPID, TSH, T7, URIC, CMP #### [facility] [address] [place] [address] Dr. Conor Chan T4 [Mass/Vol] 8.50 ug/dL Normal 5.53-11.00 [facility] Comment on above: Performed By: #### L IPID, TSH, T7, URIC, CMP #### [facility] [address] [address] [address] Conor Chan GLYCOHEMOGLOBIN A1Con 2021 ADA RECOMMENDATION ADA THERAPEUTIC TARGET 6.0 - 7.0 ACTION SUGGESTED > 7.0 Normal [facility] Comment on above: Performed By: #### A 1C #### [facility] [address] [address] [address] Conor Chan Glucose [Mass/Vol] 126 mg/dL Normal [facility] Comment on above: Performed By: #### A 1C #### [facility] [address] [place] [address] Dr. Conor Chan HbA1c (Bld) [Mass fraction] 6.0 % Normal <=6.0 [facility] Comment on above: Performed By: #### A 1C #### [facility] [address] [place] [address] Dr. Conor Chan LIPID PROFILEon 12-20-2021 CHOL-HDL RATIO NORM SEE BELOW Normal [facility] Comment on above: Result Comment: 3.3 - 4.4 LOW RISK 4.4 - 7.1 AVERAGE RISK 7.1 - 11.0 MODERATE RISK >11.0 HIGH RISK Performed By: #### L IPID, TSH, T7, URIC, CMP #### [facility] [address] [address] [address] Conor Chan Cholesterol [Mass/Vol] 161 mg/dL Normal <=200 [facility] Comment on above: Performed By: #### L IPID, TSH, T7, URIC, CMP #### [facility] [address] [address] [address] Conor Chan Cholesterol in HDL [Mass/Vol] 50 mg/dL Normal [facility] Comment on above: Performed By: #### L IPID, TSH, T7, URIC, CMP #### [facility] [address] [address] [address] Conor Chan Cholesterol in LDL [Mass/Vol] 96.0 mg/dL Normal [facility] Comment on above: Performed By: #### L IPID, TSH, T7, URIC, CMP #### [facility] [address] [place] [address] Dr. Conor Chan Cholesterol.total/Ch olesterol in HDL [Mass ratio] 3.2 {ratio} Normal [facility] Comment on above: Performed By: #### L IPID, TSH, T7, URIC, CMP #### [facility] [address] [address] [address] Conor Chan HDL NORMAL > or = 60 mg/dl - LO W CARDIOVASCULAR RISK <40 mg/dl - HIGH CARDIOVASCULAR RISK Normal [facility] Comment on above: Performed By: #### L IPID, TSH, T7, URIC, CMP #### [facility] [address] [place] [address] Dr. Conor Chan LDL CALC NORMAL SEE BELOW Normal [facility] Comment on above: Result Comment: <100 mg/dl OPTIMAL 100 - 129 mg/dl NEAR OR ABOVE OPTIMAL 130 - 159 mg/dl BORDERLINE HIGH 160 - 189 mg/dl HIGH >190 mg/dl VERY HIGH Performed By: #### L IPID, TSH, T7, URIC, CMP #### [facility] [address] [place] [address] Dr. Conor Chan Triglyceride [Mass/Vol] 75 mg/dL Normal <=150 [facility] Comment on above: Performed By: #### L IPID, TSH, T7, URIC, CMP #### [facility] [address] [place] [address] Dr. Conor Chan VLDL CALC 15.0 mg/dL Normal [facility] Comment on above: Performed By: #### L IPID, TSH, T7, URIC, CMP #### [facility] [address] [place] [address] Dr. Conor Chan PROF 14(COMP METB)on 022 Albumin [Mass/Vol] 3.7 g/dL Normal 3.5-5.0 [facility] Comment on above: Performed By: #### L IPID, TSH, T7, URIC, CMP #### [facility] [address] [place] [address] Dr. Conor Chan Albumin/Globulin [Mass ratio] 0.9 {ratio} Normal [facility] Comment on above: Performed By: #### L IPID, TSH, T7, URIC, CMP #### [facility] [address] [place] [address] Dr. Conor Chan ALP [Catalytic activity/Vol] 58 U/L Normal 38-126 [facility] Comment on above: Performed By: #### L IPID, TSH, T7, URIC, CMP #### [facility] [address] [place] [address] Dr. Conor Chan ALT [Catalytic activity/Vol] 40 U/L Normal 21-72 [facility] Comment on above: Performed By: #### L IPID, TSH, T7, URIC, CMP #### [facility] [address] [place] [address] Dr. Conor Chan Anion gap [Moles/Vol] 5.5 mmol/L Normal [facility] Comment on above: Performed By: #### L IPID, TSH, T7, URIC, CMP #### [facility] [address] [place] [address] Dr. Conor Chan AST [Catalytic activity/Vol] 18 U/L Normal 17-59 [facility] Comment on above: Performed By: #### L IPID, TSH, T7, URIC, CMP #### [facility] [address] [place] [address] Dr. Conor Chan Bilirubin [Mass/Vol] 0.5 mg/dL Normal 0.2-1.3 [facility] Comment on above: Performed By: #### L IPID, TSH, T7, URIC, CMP #### [facility] [address] [place] [address] Dr. Conor Chan Calcium [Mass/Vol] 9.9 mg/dL Normal 8.4-10.2 [facility] Comment on above: Performed By: #### L IPID, TSH, T7, URIC, CMP #### [facility] [address] [address] [address] Conor Chan Chloride [Moles/Vol] 97 mmol/L Critically low 98-107 [facility] Comment on above: Performed By: #### L IPID, TSH, T7, URIC, CMP #### [facility] [address] [place] [address] Dr. Conor Chan CO2 [Moles/Vol] 30.7 mmol/L Critically high 22.0-30.0 [facility] Comment on above: Performed By: #### L IPID, TSH, T7, URIC, CMP #### [facility] [address] [place] [address] Dr. Conor Chan Creatinine [Mass/Vol] 1.04 mg/dL Normal 0.66-1.25 [facility] Comment on above: Performed By: #### L IPID, TSH, T7, URIC, CMP #### [facility] [address] [place] [address] Dr. Conor Chan EGFR-AF FINNISH >60 Normal >=60 [facility] Comment on above: Performed By: #### L IPID, TSH, T7, URIC, CMP #### [facility] [address] [place] [address] Dr. Conor Chan EGFR-NON AF FINNISH >60 Normal >=60 [facility] Comment on above: Performed By: #### L IPID, TSH, T7, URIC, CMP #### [facility] [address] [address] [address] Conor Chan Globulin (S) [Mass/Vol] 4.2 g/dL Normal [facility] Comment on above: Performed By: #### L IPID, TSH, T7, URIC, CMP #### [facility] [address] [address] [address] Conor Chan Glucose [Mass/Vol] 122 mg/dL Critically high 74-106 [facility] Comment on above: Performed By: #### L IPID, TSH, T7, URIC, CMP #### [facility] [address] [place] [address] Dr. Conor Chan Potassium [Moles/Vol] 3.2 mmol/L Critically low 3.4-5.0 [facility] Comment on above: Performed By: #### L IPID, TSH, T7, URIC, CMP #### [facility] [address] [place] [address] Dr. Conor Chan Protein [Mass/Vol] 7.9 g/dL Normal 6.1-8.2 [facility] Comment on above: Performed By: #### L IPID, TSH, T7, URIC, CMP #### [facility] [address] [place] [address] Dr. Conor Chan Sodium [Moles/Vol] 130 mmol/L Critically low 137-145 Th [facility] Comment on above: Performed By: #### L IPID, TSH, T7, URIC, CMP #### [facility] [address] [place] [address] Dr. Conor Chan Urea nitrogen [Mass/Vol] 15.0 mg/dL Normal 9.0-20.0 [facility] Comment on above: Performed By: #### L IPID, TSH, T7, URIC, CMP #### [facility] [address] [place] [address] Dr. Conor Chan Urea nitrogen/Creatinine [Mass ratio] 14.4 mg/mg Normal [facility] Comment on above: Performed By: #### L IPID, TSH, T7, URIC, CMP #### [facility] [address] [place] [address] Dr. Conor Chan TSHon 12-20-2021 TSH 2.122 uIU/mL Normal 0.470-4.680 [facility] Comment on above: Performed By: #### L IPID, TSH, T7, URIC, CMP #### [facility] [address] [place] [address] Dr. Conor Chan TSH RANGE SEE BELOW Normal [facility] Comment on above: Result Comment: <0.3 4 UIU/ml HYPERTHYROID 0.34-5.60 UIU/ml EUTHYROID >5.60 UIU/ml HYPOTHYROID Performed By: #### L IPID, TSH, T7, URIC, CMP #### [facility] [address] [address] [address] Conor Chan URIC ACID SERUMon 12-20-2021 Urate [Mass/Vol] 7.3 mg/dL Normal 3.5-8.5 [facility] Comment on above: Performed By: #### L IPID, TSH, T7, URIC, CMP #### [facility] [id number] Conor Chan XR LSPINE MIN 4 VIEWSon 11-28 XR LSPINE MIN 4 VIEWS EXAMINATION: XR LSPINE MIN 4 VIEWS HISTORY: Low back pain COMPARISON: No relevant comparison available. FINDINGS: BONES: Normal alignment with no acute fracture or spondylolisthesis. Minimal degenerative spondylosis. Mild to moderate facet osteoarthropathy most significant at L5-S1 DISC SPACES: Moderate disc space narrowing L5-S1 with endplate sclerosis PARASPINOUS: Negative. No paraspinous abnormality is seen. OTHER: Atherosclerosis. IMPRESSION: Mild to moderate degenerative changes L5-S1 Electronically authenticated by: OSCAR FRANCO Date: 2021-12-20 10:06 Normal [facility] Vital Signs Date Time Vital Sign Value Performing Clinician Faci lity 2023 08:03-0400 Body height 182.9 cm Bilal Butt Work Phone: [facility] 2023 08:03-0400 Body weight 120.2 kg Bilal Butt Work Phone: [facility] 06-02-2023 13:26-0400 Body height 182.9 cm Darren Harris APRN.KNITTING DEMONSTRATOR Work Phone: [facility] 06-02-2023 13:26-0400 Body weight 117.03 kg Darren Harris APRN.CNP Work Phone: [facility] 06-02-2023 13:26-0400 Diastolic blood pressure 84 mm[Hg] Darren Harris APRN.KNITTING DEMONSTRATOR Work Phone: [facility] 06-02-2023 13:26-0400 Heart rate 63 /min Darren Harris APRN.KNITTING DEMONSTRATOR Work Phone: [facility] 06-02-2023 13:26-0400 Respiratory rate 18 /min Darren Harris REHAB TRAINER.KNITTING DEMONSTRATOR Work Phone: [facility] 06-02-2023 13:26-0400 SaO2% (BldA) [Mass fraction] 95 % Darren Harris REHAB TRAINER.KNITTING DEMONSTRATOR Work Phone: [facility] 06-02-2023 13:26-0400 Systolic blood pressure 128 mm[Hg] Darrensalome Harris REHAB TRAINER.KNITTING DEMONSTRATOR Work Phone: [facility] 05-13-2023 11:22-0400 Body height 182.88 cm Avi Lauren Hoy Work Phone: [facility] DO Work Phone: 05-13-2023 11:22-0400 Body mass index (BMI) [Ratio] 36.21 kg/m2 Avi M Hoy Work Phone: [facility] DO Work Phone: 05-13-2023 11:22-0400 Body surface area Derived from formula 2.41 m2 Avi Lauren Hoy Work Phone: [facility] DO Work Phone: 05-13-2023 11:22-0400 Body weight 121.11 kg Avi Lauren Hoy Work Phone: [facility] 250 DO Work Phone: 05-13-2023 11:22-0400 Diastolic blood pressure 78 mm[Hg] Avi Lauren Hoy Work Phone: [facility] DO Work Phone: 05-13-2023 11:22-0400 Heart rate 64 /min Avi Lauren Hoy Work Phone: [facility] DO Work Phone: 05-13-2023 11:22-0400 Systolic blood pressure 132 mm[Hg] Avi M Hoy Work Phone: [facility] DO Work Phone: 05-07-2022 11:36-0400 Body height 182.88 cm Avi M Hoy Work Phone: [facility] DO Work Phone: 05-07-2022 11:36-0400 Body mass index (BMI) [Ratio] 38.38 kg/m2 Avi M Hoy Work Phone: [facility] DO Work Phone: 05-07-2022 11:36-0400 Body surface area Derived from formula 2.47 m2 Avi M Hoy Work Phone: [facility] DO Work Phone: 05-07-2022 11:36-0400 Body weight 128.37 kg Avi M Hoy Work Phone: [facility] DO Work Phone: 05-07-2022 11:36-0400 Diastolic blood pressure 72 mm[Hg] Avi M Hoy Work Phone: [facility] DO Work Phone: 05-07-2022 11:36-0400 Heart rate 66 /min Avi M Hoy Work Phone: [facility] DO Work Phone: 05-07-2022 11:36-0400 Systolic blood pressure 110 mm[Hg] Avi M Hoy Work Phone: [facility] DO Work Phone: Encounters Encounter Date Encounter Type Care Provider Facility Start: 2023 End: 2023 ambulatory JUAN R BEY Facility:[facility] Start: 2023 End: 2023 Office outpatient new 30 minutes Juan R Bey MD Work Phone: [facility] Comment on above: Meralgia paresthetic a of left side (Primary Dx); Chronic midline low back pain without sciatica Start: 08-01-2023 End: 08-01-2023 ambulatory Darren Harris REHAB TRAINER.KNITTING DEMONSTRATOR Work Phone: [facility] Comment on above: Dr chong Cut me open Start: 07-01-2023 End: 07-01-2023 ambulatory JESSICA CAMP Facility:[facility] Start: 06-26-2023 Telephone encounter Jessica Camp DO Work Phone: [facility] Comment on above: Preparations For Pro cedures (Pre-injection instructions) Start: 06-19-2023 Orders Only Jessica hall DO Work Phone: Neurology Comment on above: Lumbar radiculopathy (Primary Dx); Displacement of lumbar intervertebral disc without myelopathy Start: 06-02-2023 End: 06-03-2023 ambulatory DARREN HARRIS Facility:[facility] Start: 06-02-2023 End: 06-02-2023 Patient encounter procedure Darren Harris REHAB TRAINER.KNITTING DEMONSTRATOR Work Phone: [facility] Comment on above: Radiculopathy, lumba r region (Primary Dx); Lumbar disc herniation Start: 05-13-2023 Office outpatient vi sit 25 minutes Avi Cervantes Work Phone: [facility] DO Work Phone: Start: 05-13-[address] Reilly Nelson II Facility: Start: 05-06-2023 Chart abstracting None (Historical) Neurology Start: 12-16-2022 Rx Renewal Avi Cervantes Work Phone: [facility] DO Work Phone: Start: 07-17-2022 End: 07-17-2022 ambulatory Bijan Betts Jr Facility:[facility] Start: 07-17-2022 End: 07-17-2022 Departed Referred MD Avi Cervantes Work Phone: [facility] 250 Start: 05-07-2022 Office outpatient vi sit 25 minutes Avi Cervantes Work Phone: [facility] 250 DO Work Phone: Start: 01-03-[address] AVI CEVRANTES Facility :[facility] Start: 12-21-2021 Encounter for genera l adult medical examination without abnormal findings DR AVI CERVANTES [facility] Start: 12-20-2021 End: 12-21-[address] AVI CERVANTES Facility:[facility] Start: 12-20-2021 End: 12-21-2021 Encounter for general adult medical examination without abnormal findings DR AVI CERVANTES Facility:[facility] Start: 12-10-2021 Rx Renewal Reilly mcmahon MD Work Phone: [facility] 250 DO Work Phone: Procedures Date Procedure Procedure Detail Performing Clinician Start: 07-17-2022 Radiologic examinati on of knee MD Avi Cervantes Work Phone: Start: 12-20-[address] RONDA CERVANTES Comment on above: Performed By: #### P [facility] #### [facility] [address] [place] [address] Dr. Conor Chan Start: 06-09-2020 Total colonoscopy Chaz Nelson MD Work Phone: Start: 07-02-2019 Colonoscopy Darren harris APRN.KNITTING DEMONSTRATOR Work Phone: Cardiac catheterization Will renetta Nelson MD Work Phone: Cholecystectomy Reilly miranda MD Work Phone: Plan of Treatment Date Care Activity Detail Author Start: 12-20-2026 PROSTATE CANCER SCREENING DISCUSSION PROSTATE CANCER SCREENING DISCUSSION [facility] Start: 06-27-2023 Influenza vaccination [facility] Start: 05-13-2023 FUV, Provider: Reilly Nelson, Status: Pen, Time: 11:10 AM FUV, Provider: Reilly Nelson, Status: Pen, Time: 11:10 AM [facility] 250 DO Work Phone: Start: 10-27-2022 DEPRESSION ASSESSMENT DEPRESSION ASS ESSMENT [facility] Start: 05-17-2022 COVID-19 VACCINE (6 - Pfizer series) COVID-19 VACCINE (6 - Pfizer series) [facility] Start: 05-15-2022 FUV, Provider: Reilly Nelson, Status: Pen, Time: 2:00 PM FUV, Provider: Reilly Nelson, Status: Pen, Time: 2:00 PM [facility] DO Work Phone: Start: 07-02-2020 Colonoscopy COLONOSCOPY [facility] Start: 07-02-2020 COLORECTAL CANCER SCREENING COLORECTAL CANCER SCREENING [facility] Start: 2016 Prostate Cancer Screening Discussion Prostate Cancer Screening Discussion [facility] Start: 2011 SHINGRIX VACCINE (1 of 2) SHINGRIX VACCINE (1 of 2) [facility] Start: 2006 COLOGUARD (FIT-DNA) COLOGUARD (FIT-D NA) [facility] Start: [address] COLONOGRAPHY [facility] Start: 2006 DIABETES SCREEN DIABETES SCREEN [facility] Start: 2006 Diabetes Screening Diabetes Screenin g [facility] Start: 2006 FECAL OCCULT BLOOD FECAL OCCULT BLOO D [facility] Start: 2006 SIGMOIDOSCOPY SIGMOIDOSCOPY [facility] Start: 1996 Lipid 1996 panel - S hayden or Plasma Lipid Screening [facility] Start: 1996 LIPID SCREEN LIPID SCREEN [facility] Start: 1980 Urine microalbumin profile [facility] Start: 1979 HEPATITIS C SCREENING HEPATITIS C SC REENING [facility] Start: 1979 HIV SCREENING HIV SCREENING [facility] End: 09-02-2024 Radex spine lumbosacral minimum 4 views XR LUMBAR MOTION 4V AP/LAT/ FLEX/EXT Radiology Routine Meralgia paresthetica of left side 1 Occurrences starting 2023 until 09/02/2024 [facility] Work Phone: Comment on above: 1 Occurrences starti ng 2023 until 09/02/2024 SPINE INTERVENTION PROCEDURE SPINE INTERVENTION PROCEDURE Procedures Routine Radiculopathy, lumbar region Lumbar disc herniation Ordered: 06/02/2023 [facility] Work Phone: Comment on above: Ordered: 06/02/2023 [facility] RACHAEL [facility] Immunizations Immunization Date Immunization Notes Care Provider Deepa rehman 10-14-2022 Pfizer COVID-19 Vac Bivalent 30 MCG/0.3ML Intramuscular Suspension Avi M Hoy Work Phone: [facility] 250 DO Work Phone: 10-03-2022 influenza, injectabl e, quadrivalent, preservative free Avi M Hoy Work Phone: [facility] 250 DO Work Phone: 10-03-2022 influenza virus vacc ine, unspecified formulation Darren Harris REHAB TRAINER.KNITTING DEMONSTRATOR Work Phone: [facility] 03-22-2022 Comirnaty 30 MCG/0.3 ML Intramuscular Suspension Avi M Hoy Work Phone: [facility] DO Work Phone: 03-22-2022 Moderna COVID-19 Vac cine 100 MCG/0.5ML Intramuscular Suspension Avi M Hoy Work Phone: [facility] Comment on above: Series: 03-22-2022 zoster vaccine recombinant Avi M Hoy Work Phone: [facility] DO Work Phone: 09-03-2021 Pfizer-BioNTech COVI D-19 Vacc 30 MCG/0.3ML Intramuscular Suspension Avi M Hoy Work Phone: [facility] 08-25-2021 influenza, injectabl e, quadrivalent, preservative free Avi M Hoy Work Phone: [facility] 250 DO Work Phone: 08-25-2021 zoster vaccine recombinant Avi M Hoy Work Phone: [facility] DO Work Phone: 02-13-2021 Pfizer-BioNTech COVI D-19 Vacc 30 MCG/0.3ML Intramuscular Suspension Avi Cervantes Work Phone: [facility] 01-13-2021 Pfizer-BioNTech COVI D-19 Vacc 30 MCG/0.3ML Intramuscular Suspension Avi Cervantes Work Phone: [facility] 12-23-2020 Pfizer-BioNTech COVI D-19 Vacc 30 MCG/0.3ML Intramuscular Suspension Avi Cervantes Work Phone: [facility] 08-28-2020 influenza, injectabl e, quadrivalent, preservative free Avi Aguilar Hosvetlana Work Phone: [facility] 250 DO Work Phone: 08-28-2020 influenza virus vacc ine, unspecified formulation Juan R Bey MD Work Phone: [facility] Payers Date Payer Category Payer Self-pay [id number] [phone] [id number] 2021 Private Health Insurance [employer] [place] [employer] POS [id number] 2021-Present [phone] [address] [place] [address] POS [id number] 1961 Unknown [id number] 1961 Unknown [id number] 1961 Unknown [id number] 1959 Private Health Insurance [id number] 1958 Self-pay [id number] Unknown Unknown [facility] [id number] Unknown [id number] Social History Date Type Detail Facility Start: 06-02-2023 End: 08-01-2023 Consumes alcohol Consumes alcohol [facility] Comment on above: socially; occasional; Start: 09-28-2020 End: 06-02-2023 Tobacco smoking status NHIS Never smoked tobacco (finding) [facility] Start: 1960 Sex Assigned At Male F [facility] Tobacco smoking stat us NHIS Tobacco smoking consumption unknown [facility] Start: 1960 Sex Assigned At Not on file [facility] Start: 06-02-2023 End: 08-01-2023 Gender identity Not on file [facility] Start: 06-02-2023 Tobacco use and exposure Smokeless tobacco non-user [facility] National Score (1-10 0), lower number is lower risk 62 [facility] Start: 07-28-2023 Gender identity Identifies as male gender (finding) [facility] Start: 07-28-2023 Sexual orientation Heterosexual (fin ding) [facility] Clinical Notes 05-06-2023 to 2023 Juan R Bey MD - 2023 8:40 AM EDTPBossman Brian - 2023 7:48 AM EDTTelephone Encounter - Oscar Rollins LPN - 06/26/2023 9:12 AM EDT Note Date & Type Note Facility 2023 Note HNO ID: [id number] Author: Juan R Bey MD Service: ? Author Type: Physician Type: Progress Notes Filed: 2023 9:14 AM Note Text: SPINE SURGERY NEW PATIENT This is an in-person visit. PCP: Avi Cervantes MD REFERRING PROVIDER: Clara PACHECO SUBJECTIVE HISTORY OF PRESENT ILLNESS: Kim Nichosl is a 63 year old male presenting alone. CHIEF COMPLAINT: Left lateral thigh altered sensation, non radiating, low back pain PRECIPITATING EVENT: None DURATION OF SYMPTOMS: Greater Than 6 Months 63M with isolated left lateral thigh altered sensation. Non radiating. Reports he can walk miles without issues, no radiating pain down his leg. Reports chronic history of low back pain, but left thigh altered sensation is new within last 6 months. Denies it being painful. Reports he underwent L5 SUKUMAR with improvement in his symptoms for < 3 days. Denies bowel or bladder issues. 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 Denies any weakness. No pain, left thigh altered sensation. DERMATOMAL DISTRIBUTION: Not applicable AMBULATORY STATUS: Independent Community Distances ANTIPLATELET OR ANTICOAGULATION STATUS: No PREVIOUS CONSERVATIVE TREATMENTS: Membrane stabilizers PT HEP x 6 weeks Nsaids SUKUMAR left l5/s1 with Dr. Camp 07/01/2023 PREVIOUS SPINAL SURGERY: None ACTIVE PROBLEM LIST Lumbar Radiculopathy Displacement of Lumbar Intervertebral Disc Without Myelopathy No past medical history on file. No past surgical history on file. No family history on file. Social History Tobacco Use Smoking status: Never Smokeless tobacco: Never ALLERGIES Allergen Reactions Amoxicillin Hives, Rash MEDICATIONS: gabapentin (NEURONTIN) 300 mg capsule Take 300 mg by mouth twice daily. HYDROcodone-acetaminophen (NORCO) 5-325 mg per tablet Take 1 tablet by mouth every 6 hours as needed. omeprazole (PRILOSEC) 40 mg capsule rosuvastatin (CRESTOR) 20 mg tablet clotrimazole-betamethasone (LOTRISONE) cream APPLY TO BOTH FEET TWICE A DAY chlorthalidone (HYGROTON) 25 mg tablet TAKE 1 TABLET BY MOUTH EVERY DAY IN THE MORNING WITH FOOD FOR 90 DAYS aspirin 81 mg cap Take by mouth. REVIEW OF SYSTEMS: All are negative except those stated in the History of Present illness. Patient Entered Questionnaires Spine Questions 08/01/2023 08/03/2023 Pain Location: Lower back Lower back Pain Duration: More than 5 years - Pain over last 6 months: Every day or nearly every day in the past 6 months - Symptoms from neck/cervical spine: No No Employment Status: Retired - Involved in law suit/legal claim: No - PROMIS Score Percentiles Physical Health 08/01/2023 Physical Function Percentile 21* Sleep Percentile 12 Fatigue Percentile 24* Pain Interference Percentile 12 PROMIS SOCIAL ROLE SCORE 08/01/2023 Social Role Satisfaction Percentile 31 PROMIS Global Health Scale 08/01/2023 Physical Health Percentile 15 Mental Health Percentile 43 Percentiles provide an indication of how the patient's score ranks in relation to the general population. Higher percentile rankings indicate better function/quality of life. 50th percentile is the average of the general population and indicates half of respondents had a worse score. Depression Screening: PHQ-9 08/01/2023 Score 3 PHQ-9 Self-harm Question 08/01/2023 Thoughts that you would be better off , or of hurting yourself in some way 0 PHQ-9 Self-Harm (Item 9) response options: 0 Not at all 1 Several days 2 More than half the days 3 Nearly every day PHQ-9 Levels: 0-4 No to mild depression 5-9 Mild depression 10-14 Moderate depression 15-19 Moderately severe depression 20-27 Severe depression OBJECTIVE: PHYSICAL EXAM Ht 182.9 cm (6') Wt 120.2 kg (265 lb) BMI 35.94 kg/m? Spine Exam Drain(s): none Incision: none Neck No obvious deformity, normal ROM Back No stepoffs/deformities. No tenderness or instability to palpation along spinous processes or paravertebral musculature Upper Extremities UE BICEPS TRICEPS DELTS Wrist Ext Wrist Flex Online Program Coordinator HI R 5 5 5 5 5 5 5 L 5 5 5 5 5 5 5 Sensation to light touch intact to bilateral upper extremities +2 radial pulse Right: Triceps, Biceps, Brachial normoreflexic Left: Triceps, Biceps, Brachial normoreflexic Phelps's: negative bilaterally Lower Extremities LE Hip Flex Knee Flex Knee Extend Plantarflex Dorsiflex EHL R 5 5 5 5 5 5 L 5 5 5 5 5 5 Sensation intact to light tough in bilateral lower extremities in spn, dpn, sural, saphenous, and tibial nerves. Right: Patellar, Ankle normoreflexic Left: Patellar, Ankle normoreflexic Clonus: 1 beat bilaterally Toe walk able Heel Walk able Tandem gait able Ambulatory status: independent NEURO TESTS: DATA REVIEW Imaging and outside records independently reviewed MRI reviewed with mild disc bulge at L5/S1 with degenerative changes Xray (more content not included).[facility] 2023 Note HNO ID: [id number] Author: Bossman Saunders Service: ? Author Type: ? Type: Progress Notes Filed: 2023 9:14 AM Note Text: Pt has been identified by name and birthdate: Yes Allergies reviewed: Yes Medication - prescribed and OTC reviewed and updated: Yes Latex allergy: no. Have you had a recent problem with pain? Yes LOCATION: Lower back pain with radiating left left PAIN SCALE: 3 on a scale of 0-10 worse at 10-10 PAIN CHARACTER: burning and numbness DURATION: (How long have you had the pain?) 3 years FREQUENCY: (How often does the pain occur?) occurs intermittently AGGRAVATING FACTORS: activity, standing, and walking ALLEVIATING FACTORS: sitting, resting, lying supine, and medications - muscle relaxants, NSAIDs, and opioids Medications: See medication reconciliation list in [facility] MEDICATIONS: Gabapentin, [place], Tylenol Have you ever seen a pain management physician: No Have you ever taken any pain medications (Narcotics): Yes; Type(s) AND Duration: 1 day How is your appetite?: normal Do you feel safe in the home? Yes Do you have concerns about falling or have you fallen in the past year? No Do you have difficulty performing or completing routine daily living activities? No [facility] 2023 History of Presen t illness Narrative SPINE SURGERY NEW PATIENT This is an in-person visit. PCP: Avi Cervantes MD REFERRING PROVIDER: Clara PACHECO SUBJECTIVE HISTORY OF PRESENT ILLNESS: Kim Nichols is a 63 year old male presenting alone. CHIEF COMPLAINT: Left lateral thigh altered sensation, non radiating, low back pain PRECIPITATING EVENT: None DURATION OF SYMPTOMS: Greater Than 6 Months 63M with isolated left lateral thigh altered sensation. Non radiating. Reports he can walk miles without issues, no radiating pain down his leg. Reports chronic history of low back pain, but left thigh altered sensation is new within last 6 months. Denies it being painful. Reports he underwent L5 SUKUMAR with improvement in his symptoms for < 3 days. Denies bowel or bladder issues. 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 Denies any weakness. No pain, left thigh altered sensation. DERMATOMAL DISTRIBUTION: Not applicable AMBULATORY STATUS: Independent Community Distances ANTIPLATELET OR ANTICOAGULATION STATUS: No PREVIOUS CONSERVATIVE TREATMENTS: Membrane stabilizers PT HEP x 6 weeks Nsaids SUKUMAR left l5/s1 with Dr. Camp 07/01/2023 PREVIOUS SPINAL SURGERY: None ACTIVE PROBLEM LIST Lumbar Radiculopathy Displacement of Lumbar Intervertebral Disc Without Myelopathy No past medical history on file. No past surgical history on file. No family history on file. Social History Tobacco Use Smoking status: Never Smokeless tobacco: Never ALLERGIES Allergen Reactions Amoxicillin Hives, Rash MEDICATIONS: gabapentin (NEURONTIN) 300 mg capsule Take 300 mg by mouth twice daily. HYDROcodone-acetaminophen (NORCO) 5-325 mg per tablet Take 1 tablet by mouth every 6 hours as needed. omeprazole (PRILOSEC) 40 mg capsule rosuvastatin (CRESTOR) 20 mg tablet clotrimazole-betamethasone (LOTRISONE) cream APPLY TO BOTH FEET TWICE A DAY chlorthalidone (HYGROTON) 25 mg tablet TAKE 1 TABLET BY MOUTH EVERY DAY IN THE MORNING WITH FOOD FOR 90 DAYS aspirin 81 mg cap Take by mouth. REVIEW OF SYSTEMS: All are negative except those stated in the History of Present illness. Patient Entered Questionnaires Spine Questions 08/01/2023 08/03/2023 Pain Location: Lower back Lower back Pain Duration: More than 5 years - Pain over last 6 months: Every day or nearly every day in the past 6 months - Symptoms from neck/cervical spine: No No Employment Status: Retired - Involved in law suit/legal claim: No - PROMIS Score Percentiles Physical Health 08/01/2023 Physical Function Percentile 21* Sleep Percentile 12 Fatigue Percentile 24* Pain Interference Percentile 12 PROMIS SOCIAL ROLE SCORE 08/01/2023 Social Role Satisfaction Percentile 31 PROMIS Global Health Scale 08/01/2023 Physical Health Percentile 15 Mental Health Percentile 43 Percentiles provide an indication of how the patient's score ranks in relation to the general population. Higher percentile rankings indicate better function/quality of life. 50th percentile is the average of the general population and indicates half of respondents had a worse score. Depression Screening: PHQ-9 08/01/2023 Score 3 PHQ-9 Self-harm Question 08/01/2023 Thoughts that you would be better off , or of hurting yourself in some way 0 PHQ-9 Self-Harm (Item 9) response options: 0 Not at all 1 Several days 2 More than half the days 3 Nearly every day PHQ-9 Levels: 0-4 No to mild depression 5-9 Mild depression 10-14 Moderate depression 15-19 Moderately severe depression 20-27 Severe depression OBJECTIVE: PHYSICAL EXAM Ht 182.9 cm (6') Wt 120.2 kg (265 lb) BMI 35.94 kg/m Spine Exam Drain(s): none Incision: none Neck No obvious deformity, normal ROM Back No stepoffs/deformities. No tenderness or instability to palpation along spinous processes or paravertebral musculature Upper Extremities UE BICEPS TRICEPS DELTS Wrist Ext Wrist Flex Online Program Coordinator HI R 5 5 5 5 5 5 5 L 5 5 5 5 5 5 5 Sensation to light touch intact to bilateral upper extremities +2 radial pulse Right: Triceps, Biceps, Brachial normoreflexic Left: Triceps, Biceps, Brachial normoreflexic Phelps's: negative bilaterally Lower Extremities LE Hip Flex Knee Flex Knee Extend Plantarflex Dorsiflex EHL R 5 5 5 5 5 5 L 5 5 5 5 5 5 Sensation intact to light tough in bilateral lower extremities in spn, dpn, sural, saphenous, and tibial nerves. Right: Patellar, Ankle normoreflexic Left: Patellar, Ankle normoreflexic Clonus: 1 beat bilaterally Toe walk able Heel Walk able Tandem gait able Ambulatory status: independent NEURO TESTS: DATA REVIEW Imaging and outside records independently reviewed MRI reviewed with mild disc bulge at L5/S1 with degenerative changes Xrays dated 2021 with l5/S1 degenerative changes Maintained lumbar lordosis ASSESSMENT/PLAN (G57.12) Meralgia paresthetica of left side (primary encounter diagnosis) (M54.50, G89.29) Chronic midline low back pain without sciatica Kim Nichols will continue with medical management of his/her condition. 1. Long discussion was had with patient regarding his imaging and his symptoms. 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 I discussed that for his low back pain weight loss, exercise, and home exercise program can help. I discussed for his LFCN entrapment, membrane stabilizers along with continued weight loss can help with his altered sensation in his thigh. I discussed obtaining xrays of his lumbar spine to assess for any dynamic instability. I will see Kim carrillo in approximately 6 months time with xrays for a clinic check. If there are any changes to his overall spine health, I would be more than happy to see him back sooner. 2. Follow up: 6 months Imaging Ordered: Xr lumbar spine, AP, lateral, flex, ex The majority of the visit was spent counseling and/or coordinating care for the patient. The patient was counseled regarding lfcn entrapment, and spinal stenosis. Total face to face time was 30 minutes. SIGNATURE: Juan R Bey MD PATIENT NAME: Kim Nichols DATE: 2023 TIME: 8:40 AM PAGER: Pt has been identified by name and birthdate: Yes Allergies reviewed: Yes Medication - prescribed and OTC reviewed and updated: Yes Latex allergy: no. Have you had a recent problem with pain? Yes LOCATION: Lower back pain with radiating left left PAIN SCALE: 3 on a scale of 0-10 worse at 10-10 PAIN CHARACTER: burning and numbness DURATION: (How long have you had the pain?) 3 years FREQUENCY: (How often does the pain occur?) occurs intermittently AGGRAVATING FACTORS: activity, standing, and walking ALLEVIATING FACTORS: sitting, resting, lying supine, and medications - muscle relaxants, NSAIDs, and opioids Medications: See medication reconciliation list in [facility] MEDICATIONS: Gabapentin, [place], Tylenol Have you ever seen a pain management physician: No Have you ever taken any pain medications (Narcotics): Yes; Type(s) & Duration: 1 day How is your appetite?: normal Do you feel safe in the home? Yes Do you have concerns about falling or have you fallen in the past year? No Do you have difficulty performing or completing routine daily living activities? No Bossman Escoto documented in this encounter [facility] 08-01-2023 Note HNO ID: [id number] Author: Darren Harris APRN.CNP Service: ? Author Type: Nurse Practitioner Type: Progress Notes Filed: 08/01/2023 1:30 PM Note Text: SPINE SURGERY ESTABLISHED VISIT This is a virtual visit using [employer] Video Visit. It required patient-provider interaction for the medical decision making as documented below. DATE OF SERVICE: 08/01/2023 DATE OF LAST VISIT: 06/02/2023 SUBJECTIVE: HPI:Kim Nichols is a 62 year old male presenting via virtual vist s/p Left L5 transforaminal epidural steroid injection on 07/01/[address] Camp[address] Auberry great initially and for the first few days after injection, symptoms returned shortly after. Patient has increased his Gabapentin 300 mg from BID to TID and is feeling good today. 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 Would like to consider surgical intervention and I am agreeable to this next step as he has exacerbated all conservative treatments with minimal relief, and his symptoms continue to hinder and alter his ADLs. MEDICATIONS: gabapentin (NEURONTIN) 300 mg capsule Take 300 mg by mouth twice daily. HYDROcodone-acetaminophen (NORCO) 5-325 mg per tablet Take 1 tablet by mouth every 6 hours as needed. omeprazole (PRILOSEC) 40 mg capsule rosuvastatin (CRESTOR) 20 mg tablet clotrimazole-betamethasone (LOTRISONE) cream APPLY TO BOTH FEET TWICE A DAY chlorthalidone (HYGROTON) 25 mg tablet TAKE 1 TABLET BY MOUTH EVERY DAY IN THE MORNING WITH FOOD FOR 90 DAYS aspirin 81 mg cap Take by mouth. Patient Entered Questionnaires Spine Questions 08/01/2023 Pain Location: Lower back Pain Duration: More than 5 years Pain over last 6 months: Every day or nearly every day in the past 6 months Symptoms from neck/cervical spine: No Employment Status: Retired Involved in law suit/legal claim: No PROMIS Score Percentiles Physical Health 08/01/2023 Physical Function Percentile 21* Sleep Percentile 12 Fatigue Percentile 24* Pain Interference Percentile 12 PROMIS SOCIAL ROLE SCORE 08/01/2023 Social Role Satisfaction Percentile 31 PROMIS Global Health Scale 08/01/2023 Physical Health Percentile 15 Mental Health Percentile 43 Percentiles provide an indication of how the patient's score ranks in relation to the general population. Higher percentile rankings indicate better function/quality of life. 50th percentile is the average of the general population and indicates half of respondents had a worse score. Depression Screening: PHQ-9 08/01/2023 Score 3 PHQ-9 Self-harm Question 08/01/2023 Thoughts that you would be better off , or of hurting yourself in some way 0 PHQ-9 Self-Harm (Item 9) response options: 0 Not at all 1 Several days 2 More than half the days 3 Nearly every day PHQ-9 Levels: 0-4 No to mild depression 5-9 Mild depression 10-14 Moderate depression 15-19 Moderately severe depression 20-27 Severe depression OBJECTIVE: PHYSICAL EXAM: LIMITED DUE TO VIRTUAL VISIT GENERAL APPEARANCE: Well nourished, well developed, and no apparent distress. NEURO PSYCH: Patient oriented to person, place, and time. Mood pleasant. Benign affect. ASSESSMENT/PLAN (M54.16) Radiculopathy, lumbar region (primary encounter diagnosis) (M51.26) Lumbar disc herniation Kim Nichols will continue medically managing his condition and would like to see a surgeon and discussed possible surgical intervention. Discussed various surgeons, I recommend Dr Velasquez/Dr Bey who would have sooner availability and are confident and capable options for the patient. He would like to review with his prior to decided and will reach out to me once he decides. I will connect with scheduling once patient confirms. 1. Medications: Continue current medications 2. Follow up: schedule with surgeon I spent a total of 22 minutes on the date of the service which included preparing to see the patient, [id number] patient care, completing clinical documentation, obtaining and/or reviewing separately obtained history, performing a medically appropriate examination, counseling and educating the patient/family/caregiver, independently interpreting results (not separately reported), and communicating results to the patient/family/caregiver. SIGNATURE: Darren Harris APRN.KNITTING DEMONSTRATOR PATIENT NAME: Kim Nichols DATE: August 01, 2023 TIME: 12:53 PM PAGER: [facility] 06-26-2023 Miscellaneous Notes Phoned patient and message left for Kim to confirm appointment for Kim Nichols for spine procedure on 07/01/2023. Patient notified that [place] will call patient the night before with the time to arrive for injection. Patient verbalized understanding of the following: -Provided education on spine procedure and answered questions related to spine injection procedure. -Applied Technologist is needed to drive patient home. -NPO 6 hours prior to appointment, ok to take morning medications with sip of water. -Not to take any pain medications the day of injection to see how well injection works. -Do not take any NSAIDs/anti-inflammatories (mobic, ibuprofen, advil, aleve, etc) the day of procedure for all lumbar, hip, and sacroiliac joint procedures. Hold NSAIDs for 1 day prior to procedure for cervical cases. Allergies reviewed: Yes Allergy to IV contrast dye or steroids: No Taking any antiplatelet/anticoagulant (blood thinners): No Taking aspirin 81mg: Yes, requested to hold the day of procedure Any open wounds/sores?: Patient to report Taking Antibiotics?: Patient to report. Diabetic: No Patient given number [phone], spine injections schedulers, if there is any need to reschedule/ change appointment during normal business hours. Active MyChart users were informed to read MyChart procedure instructions prior to appointment. AMBULATORY PATIENT EDUCATION TOPIC: SPINE INJECTION PROCEDURE, PRE-INJECTION AND POST- INJECTION INSTRUCTIONS READINESS TO LEARN COGNITIVE ABILITY: ALERT AND ORIENTED MOTIVATION TO LEARN: Message FAMILY SUPPORT: Unable to assess - Family not present INSTRUCTION PROVIDED TO: Patient PATIENT LEARNS BEST BY: INDIVIDUAL INSTRUCTION FACTORS AFFECTING LEARNING: None PHYSICAL LIMITATIONS AFFECTING LEARNING: None LEARNING RESPONSE METHOD OF INSTRUCTION: TEACH BACK AND INDIVIDUAL INSTRUCTION PATIENT / FAMILY RESPONSE: VERBALIZED UNDERSTANDING OF PRE AND POST INJECTION INSTRUCTIONS documented in this encounter [facility] 06-02-2023 Note HNO ID: [id number] Author: Darren Harris APRN.KNITTING DEMONSTRATOR Service: ? Author Type: Nurse Practitioner Type: Progress Notes Filed: 06/03/2023 1:01 PM Note Text: SPINE SURGERY OUTPATIENT CONSULT This is an in-person visit. SERVICE DATE: 06/02/2023 PCP: No primary care provider on file. REFERRING PROVIDER: No referring provider defined for this encounter. Consult requested for an opinion regarding the evaluation and treatment of left leg pain. My final impression and recommendations will be communicated back to the requesting physician by way of the shared medical record or letter via [place] mail. SUBJECTIVE Kim Nichols is a 62 year old male presenting alone. CHIEF COMPLAINT: low back pain and left leg pain Patient states that he has always had LBP but over the last year it has gotten worse and he started having left leg pain. Denies any weakness, Denies bowel and bladder incontinence. Denies trouble using hands. Denies unsteady gait and feeling unbalanced. States he gets intermittent numbness in his leg but this is rare, denies right leg symptoms. His PCP started him on Gabapentin BID 300 mg which states has helped significantly with him pain. He also is prescribed [place] for breakthrough pain which he only takes PRN. He has not done any recent PT, discussed with patient that PT will be beneficial to him. 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 Never tried injections HISTORY OF PRESENT ILLNESS PRECIPITATING EVENT: None DURATION OF SYMPTOMS: Greater Than 1 Year PAIN EVALUATION 06/02/2023 1322 Pain Level: 3 Pain Location: Back-Lower Description: Aching;Dull Duration Amount of Time: 7 Duration Units: Months Frequency: Intermittent Intervention/Comfort measure: Medication;Heat;Exercise Pain Radiation: down the left thigh, below the left knee, and to the left foot/feet Aggravating Factors: Flexion, Standing, Walking Alleviating Factors: Medications DERMATOMAL DISTRIBUTION: Left: L4 and L5 AMBULATORY STATUS: Independent Community Distances ANTIPLATELET OR ANTICOAGULATION STATUS: No PREVIOUS CONSERVATIVE TREATMENTS: See HPI PREVIOUS SPINAL SURGERY: None There is no problem list on file for this patient. No past medical history on file. No past surgical history on file. No family history on file. Social History Tobacco Use Smoking status: Never Smokeless tobacco: Never ALLERGIES Allergen Reactions Amoxicillin Hives, Rash MEDICATIONS: gabapentin (NEURONTIN) 300 mg capsule Take 300 mg by mouth twice daily. HYDROcodone-acetaminophen (NORCO) 5-325 mg per tablet Take 1 tablet by mouth every 6 hours as needed. omeprazole (PRILOSEC) 40 mg capsule rosuvastatin (CRESTOR) 20 mg tablet clotrimazole-betamethasone (LOTRISONE) cream APPLY TO BOTH FEET TWICE A DAY chlorthalidone (HYGROTON) 25 mg tablet TAKE 1 TABLET BY MOUTH EVERY DAY IN THE MORNING WITH FOOD FOR 90 DAYS aspirin 81 mg cap Take by mouth. REVIEW OF SYSTEMS: PAIN ASSESSMENT: See HPI. GENERAL: Denies fever, chills malaise and weight loss. HEENT: No recent change in vision or hearing. CARDIOVASCULAR: Denies chest pain, history of A-fib, valvular disease, or pacemaker/ICD. RESPIRATORY: Denies SOB, sputum production, and hemoptysis. GI: Denies GI ulcers, inflammatory disease, or liver disease. : Denies change in frequency or urgency, kidney disease, and burning with urination. MUSCULOSKELETAL: Positive for low back pain SKIN: Denies rash or itching. PSYCHOLOGICAL: Denies uncontrolled depression or anxiety. NEURO: Denies CVA, seizures, headaches. ENDOCRINE: Denies diabetes, thyroid disease. HEMATOLOGY/LYMPHOLOGY: Denies cancer, bleeding or clotting disorders, anemia,and DVT's. ALLERGIC/IMMUNOLOGICAL: Denies risks for infection, or recent MRSA infections. Patient Entered Questionnaires PROMIS Score Percentiles Percentiles provide an indication of how the patient's score ranks in relation to the general population. Higher percentile rankings indicate better function/quality of life. 50th percentile is the average of the general population and indicates half of respondents had a worse score. Depression Screening: PHQ-9 Self-Harm (Item 9) response options: 0 Not at all 1 Several days 2 More than half the days 3 Nearly every day PHQ-9 Levels: 0-4 No to mild depression 5-9 Mild depression 10-14 Moderate depression 15-19 Moderately severe depression 20-27 Severe depression OBJECTIVE: PHYSICAL EXAM BP 128/84 Pulse 63 Resp 18 Ht 182.9 cm (6') Wt 117 kg (258 lb) SpO2 95% BMI 34.99 kg/m? GENERAL APPEARANCE: Well nourished, well developed, and no apparent distress. NEURO PSYCH: Patient oriented to person, place, and time. Mood pleasant. Benign affect. MUSCULOSKELETAL VISUAL INSPECTION CERVICAL: WNL THORACIC: WNL LUMBAR: WNL SENSORY: Normal sensory exam GAIT: Normal. DATA REVIE (more content not included)... [facility] 06-02-2023 History of Presen t illness Narrative SPINE SURGERY OUTPATIENT CONSULT This is an in-person visit. SERVICE DATE: 06/02/2023 PCP: No primary care provider on file. REFERRING PROVIDER: No referring provider defined for this encounter. Consult requested for an opinion regarding the evaluation and treatment of left leg pain. My final impression and recommendations will be communicated back to the requesting physician by way of the shared medical record or letter via [place] mail. SUBJECTIVE Kim Nichols is a 62 year old male presenting alone. CHIEF COMPLAINT: low back pain and left leg pain Patient states that he has always had LBP but over the last year it has gotten worse and he started having left leg pain. Denies any weakness, Denies bowel and bladder incontinence. Denies trouble using hands. Denies unsteady gait and feeling unbalanced. States he gets intermittent numbness in his leg but this is rare, denies right leg symptoms. His PCP started him on Gabapentin BID 300 mg which states has helped significantly with him pain. He also is prescribed [place] for breakthrough pain which he only takes PRN. He has not done any recent PT, discussed with patient that PT will be beneficial to him. 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 Never tried injections HISTORY OF PRESENT ILLNESS PRECIPITATING EVENT: None DURATION OF SYMPTOMS: Greater Than 1 Year PAIN EVALUATION 06/02/2023 1322 Pain Level: 3 Pain Location: Back-Lower Description: Aching;Dull Duration Amount of Time: 7 Duration Units: Months Frequency: Intermittent Intervention/Comfort measure: Medication;Heat;Exercise Pain Radiation: down the left thigh, below the left knee, and to the left foot/feet Aggravating Factors: Flexion, Standing, Walking Alleviating Factors: Medications DERMATOMAL DISTRIBUTION: Left: L4 and L5 AMBULATORY STATUS: Independent Community Distances ANTIPLATELET OR ANTICOAGULATION STATUS: No PREVIOUS CONSERVATIVE TREATMENTS: See HPI PREVIOUS SPINAL SURGERY: None There is no problem list on file for this patient. No past medical history on file. No past surgical history on file. No family history on file. Social History Tobacco Use Smoking status: Never Smokeless tobacco: Never ALLERGIES Allergen Reactions Amoxicillin Hives, Rash MEDICATIONS: gabapentin (NEURONTIN) 300 mg capsule Take 300 mg by mouth twice daily. HYDROcodone-acetaminophen (NORCO) 5-325 mg per tablet Take 1 tablet by mouth every 6 hours as needed. omeprazole (PRILOSEC) 40 mg capsule rosuvastatin (CRESTOR) 20 mg tablet clotrimazole-betamethasone (LOTRISONE) cream APPLY TO BOTH FEET TWICE A DAY chlorthalidone (HYGROTON) 25 mg tablet TAKE 1 TABLET BY MOUTH EVERY DAY IN THE MORNING WITH FOOD FOR 90 DAYS aspirin 81 mg cap Take by mouth. REVIEW OF SYSTEMS: PAIN ASSESSMENT: See HPI. GENERAL: Denies fever, chills malaise and weight loss. HEENT: No recent change in vision or hearing. CARDIOVASCULAR: Denies chest pain, history of A-fib, valvular disease, or pacemaker/ICD. RESPIRATORY: Denies SOB, sputum production, and hemoptysis. GI: Denies GI ulcers, inflammatory disease, or liver disease. : Denies change in frequency or urgency, kidney disease, and burning with urination. MUSCULOSKELETAL: Positive for low back pain SKIN: Denies rash or itching. PSYCHOLOGICAL: Denies uncontrolled depression or anxiety. NEURO: Denies CVA, seizures, headaches. ENDOCRINE: Denies diabetes, thyroid disease. HEMATOLOGY/LYMPHOLOGY: Denies cancer, bleeding or clotting disorders, anemia,and DVT's. ALLERGIC/IMMUNOLOGICAL: Denies risks for infection, or recent MRSA infections. Patient Entered Questionnaires PROMIS Score Percentiles Percentiles provide an indication of how the patient's score ranks in relation to the general population. Higher percentile rankings indicate better function/quality of life. 50th percentile is the average of the general population and indicates half of respondents had a worse score. Depression Screening: PHQ-9 Self-Harm (Item 9) response options: 0 Not at all 1 Several days 2 More than half the days 3 Nearly every day PHQ-9 Levels: 0-4 No to mild depression 5-9 Mild depression 10-14 Moderate depression 15-19 Moderately severe depression 20-27 Severe depression OBJECTIVE: PHYSICAL EXAM BP 128/84 Pulse 63 Resp 18 Ht 182.9 cm (6') Wt 117 kg (258 lb) SpO2 95% BMI 34.99 kg/m GENERAL APPEARANCE: Well nourished, well developed, and no apparent distress. NEURO PSYCH: Patient oriented to person, place, and time. Mood pleasant. Benign affect. MUSCULOSKELETAL VISUAL INSPECTION CERVICAL: WNL THORACIC: WNL LUMBAR: WNL SENSORY: Normal sensory exam GAIT: Normal. DATA REVIEW Images independently reviewed with the patient MRI Lumbar: L4/5 moderate left foramen narrowing; L5/S1 canal and bilateral foraminal narrowing with posterior central disc protrusion projecting 5 mm in the central canal ASSESSMENT/PLAN (M54.16) Radiculopathy, lumbar region (primary encounter diagnosis) (M51.26) Lumbar disc herniation Kim Nichols will continue with medical management of his/her condition. Discussed with patient SUKUMAR can be both diagnostic and therapeutic and will follow up after to see its effect. Patient agreeable to this. Also discussed continuing his gabapentin and he could increase it if needed as he is currently on low dose. All patient questions answered and he was appreciative of appointment 1. Medications: Continue current medications and OTC NSAIDS/anaglesics as directed, in the absence of medical contraindication, with meals for 7-14 days Consults: Medical Spine Intervention 2. Follow up: 2-4 weeks after injection to assess for symptom improvement. I spent a total of 40 minutes on the date of the service which included preparing to see the patient, [id number] patient care, completing clinical documentation, obtaining and/or reviewing separately obtained history, performing a medically appropriate examination, counseling and educating the patient/family/caregiver, independently interpreting results (not separately reported), and communicating results to the patient/family/caregiver. SIGNATURE: Darren Harris APRN.CNP PATIENT NAME: Kim Nichols DATE: June 02, 2023 TIME: 1:57 PM PAGER: documented in this encounter [facility] 05-14-2023 Note HNO ID: [id number] Author: Ember Delatorre PA-C Service: ? Author Type: Physician Taximeter Repairer Type: Progress Notes Filed: 05/14/2023 4:17 PM Note Text: Per Triage: Kim Nichols is a 62 year old male that requests evaluation of lumbar spine. Per review, they have symptoms of back and LLE pain. Positive for numbness. CMT: Medication: Gabapentin, Tylenol, [place] Studies (Reports unless indicated) MRI Lumbar: L4/5 moderate left foramen narrowing which may contribute to patient's symptoms 2. L5/S1 disc protrusion without significant canal or foramen narrowing. Disposition: Please schedule with surgical SANDY. Consider if injection is appropriate or on effective dose of Neurontin. Also see if symptoms correlate with imaging. [facility] 05-14-2023 History of Presen t illness Narrative Per Triage: Kim Nichols is a 62 year old male that requests evaluation of lumbar spine. Per review, they have symptoms of back and LLE pain. Positive for numbness. CMT: Medication: Gabapentin, Tylenol, [place] Studies (Reports unless indicated) MRI Lumbar: L4/5 moderate left foramen narrowing which may contribute to patient's symptoms 2. L5/S1 disc protrusion without significant canal or foramen narrowing. Disposition: Please schedule with surgical SANDY. Consider if injection is appropriate or on effective dose of Neurontin. Also see if symptoms correlate with imaging. Patient name: Kim Nichols Are you being referred by a [facility] or Pain Management Provider at [facility]? No If answer is YES please schedule directly with surgeon, triage does not need to be completed. Is this a self-referral No If not, who is the Referring Provider Avi Cervantes Is this a 2nd opinion? No Were you offered surgery? No MRI/CT/myelogram within 12 months? Yes If NO , please refer to medical spine or PCP to complete above imaging, triage does not need to be completed If YES, please ask for the name/address of the facility where the MRI/CT/myelogram was completed: [facility] [address] [place] [address] MRI/CT/myelogram viewable in Epic: No If not, please provide [phone] to fax in imaging reports for review. Also, please inform patient to hand carry imaging disc to appointment. XR (spine) within 12 months: No If YES, please ask for the name/address of the facility where the XR was completed: Dr. Nix's patients: Have you had previous EMG/Nerve Conduction Study, Ultrasound, or MRI for these same symptoms? If YES, please ask for the name/address of the facility where they were completed: Requested provider (First and Last name): UN Are you interested in a virtual visit if offered? No 1. Where are you having symptoms related to this visit? LBP (R) Leg pain (L) Numbness, Burning sensation Back pain Yes Leg pain Yes Arm pain No Neck pain No 2. Are you having any of the following symptoms: Difficulty walking No Numbness Yes Weakness No Trouble using your hands? No 3. Have you had any injections or physical therapy in the last 12 months? No If YES then please ask for the name/address of the facility where the injections and/or physical therapy was completed Have you tried any other kinds of non-surgical treatments in the last 12 months? (For example: NSAIDS, muscle relaxants, analgesics, oral steroids, Chiropractor, Acupuncture): Gabapentin Tylenol 4. Are you currently taking daily prescribed narcotic medications for your current symptoms (For example Oxycodone, Hydrocodone, Tramadol, Morphine, Other)? Yes Hydrocodone as needed 5. Have you had previous spinal surgery for this same symptoms? No If YES please ask for the name of facility/address of where the surgery was completed: Additional Comments Hydrocodone documented in this encounter [facility] 05-06-2023 Note HNO ID: [id number] Author: Mauricio Kelley Service: ? Author Type: ? Type: Progress Notes Filed: 05/14/2023 4:17 PM Note Text: Patient name: Kim Nichols Are you being referred by a [facility] or Pain Management Provider at [facility]? No If answer is YES please schedule directly with surgeon, triage does not need to be completed. Is this a self-referral No If not, who is the Referring Provider Avi Cervantes Is this a 2nd opinion? No Were you offered surgery? No MRI/CT/myelogram within 12 months? Yes If NO , please refer to medical spine or PCP to complete above imaging, triage does not need to be completed If YES,? please ask for the name/address of the facility where the MRI/CT/myelogram was completed: [facility] [place] [id number] MRI/CT/myelogram viewable in Epic: No If not, please provide [phone] to fax in imaging reports for review. Also, please inform patient to hand carry imaging disc to appointment. XR (spine) within 12 months: No If YES,? please ask for the name/address of the facility where the XR was completed: Dr. Nix's patients: Have you had previous EMG/Nerve Conduction Study, Ultrasound, or MRI for these same symptoms? If YES,? please ask for the name/address of the facility where they were completed: Requested provider (First and Last name): UN Are you interested in a virtual visit if offered? No 1. Where are you having symptoms related to this visit? LBP (R) Leg pain (L) Numbness, Burning sensation Back pain Yes Leg pain Yes Arm pain No Neck pain No 2. Are you having any of the following symptoms: Difficulty walking No Numbness Yes Weakness No Trouble using your hands? No 3. Have you had any injections or physical therapy in the last 12 months? No If YES then please ask for the name/address of the facility where the injections and/or physical therapy was completed Have you tried any other kinds of non-surgical treatments in the last 12 months? (For example: NSAIDS, muscle relaxants, analgesics, oral steroids, Chiropractor, Acupuncture): Gabapentin Tylenol 4. Are you currently taking daily prescribed narcotic medications for your current symptoms (For example Oxycodone, Hydrocodone, Tramadol, Morphine, Other)? Yes Hydrocodone as needed 5. Have you had previous spinal surgery for this same symptoms? No If YES? please ask for the name of facility/address of where the surgery was completed: Additional Comments Hydrocodone [facility] Evaluation note No assessment inform ation available [facility] Work Phone: Evaluation note Diagnosis Radiculopathy, lumbar region- Primary Thoracic or lumbosacral neuritis or radiculitis, unspecified Lumbar disc herniation Displacement of lumbar intervertebral disc without myelopathy [facility] Diagnosis Lumbar radiculopathy- Primary Thoracic or lumbosacral neuritis or radiculitis, unspecified Displacement of lumbar intervertebral disc without myelopathy [facility] Diagnosis Meralgia paresthetica of left side- Primary Meralgia paresthetica Chronic midline low back pain without sciatica [facility] Present illness NarrativePatient returns in follow-up of problems as noted. Is done well. He has no angina CHF or arrhythmia symptomatology. With the implementation of Pepcid in addition to previously prescribed omeprazole his episodes of nocturnal shortness of breath have completely resolved. We presume it to be on the basis of nocturnal acid reflux and he concurs. Control blood pressure and cholesterol is discussed. Lipids are acceptable and blood pressure also good. He questions whether carvedilol can be stopped Kell believe it is reasonable to give it a try and because of this he will wean off. The merits of diet exercise and weight loss were discussed in regards to their favorable impact on blood pressure andcholesterol.-Merged With [facility] 250 DO Work Phone: History of Present illness Narrative* Patient returns in follow-up of problems as noted. In the interim he is done well. He has been aggressively dieting and has lost 20 or 30 pounds. He is pleased in this regard and this was discussed in great detail. I advised him that continued weight loss will more than likely bring his blood pressure down and blood sugar under control and ultimately his blood pressure medicine may have to be reduced or discontinued. He understands the concept well and will keep an eye out for orthostatic symptomatology * We discussed other management. I believe he requires aspirin lifelong and the rationale for this was explained. I also advocated lifelong treatment of hyperlipidemia with statins. He understands thisrecommendation as well. * He expresses a desire to henceforth follow-up predominantly with primary care physician and I advised him this is a good idea and acceptable. He is on appropriate therapy and I will defer management of blood sugar and hypertension influenced by weight loss to the primary care physician henceforth. He was educated regarding symptoms to watch for and encouraged to call if they arise or occur. [facility] LeadiD DO Work Phone: History of Present illness Narrative* Patient returns in follow-up of problems as noted. In the interim he is done well. He has been aggressively dieting and has lost 20 or 30 pounds. He is pleased in this regard and this was discussed in great detail. I advised him that continued weight loss will more than likely bring his blood pressure down and blood sugar under control and ultimately his blood pressure medicine may have to be reduced or discontinued. He understands the concept well and will keep an eye out for orthostatic symptomatology * We discussed other management. I believe he requires aspirin lifelong and the rationale for this was explained. I also advocated lifelong treatment of hyperlipidemia with statins. He understands thisrecommendation as well. * He expresses a desire to henceforth follow-up predominantly with primary care physician and I advised him this is a good idea and acceptable. He is on appropriate therapy and I will defer management of blood sugar and hypertension influenced by weight loss to the primary care physician henceforth. He was educated regarding symptoms to watch for and encouraged to call if they arise or occur. [facility] Tabber 530 DO Work Phone: Reason for referral (narrative)* Diagnostic Procedure Only (Routine) - Pending Review Specialty Diagnoses / Procedures Referred By Contac t Referred To Contact XR IMAGING Diagnoses Meralgia paresthetica of left side Procedures XR LUMBAR MOTION 4V AP/LAT/ FLEX/EXT RADEX SPINE LUMBOSACRAL MINIMUM 4 VIEWS Juan R Bey MD [address] [place] [address] [place] [address] Referral ID Status Reason Start Date Expiration Date Visits Requested Visits Authorized [id number] Pending Review Auto-Generat ed Referral 2023 09/02/2024 1 1 [facility] Summary Purpose Family History No Family History Records FoundUnknown Family Member Name Dates Details Family history of cardiovasc ular disease: Sister(V17.49, Z82.49) Status:Active Family history of myocardial infarction: Sister(V17.3, Z82.49) Status:Active Family history of diabetes m ellitus: Sister(V18.0, Z83.3) Status:Active Relationship Condition Age at Onset Recorded Date/T tereza father Diabetes mellitus Unknown Malignant neoplasm of urinary bladder Unk nown Myocardial infarction Unknown Cerebrovascular accident (CVA) Unknown Abdominal aortic aneurysm (AAA) Unknown Not Specified Cerebral aneurysm Unknown History of thyroidectomy Unknown sister Diabetes mellitus Unknown Unknown Family Member Name Dates Details Family history of cardiovasc ular disease: Sister(V17.49, Z82.49) Status:Active Family history of myocardial infarction: Sister(V17.3, Z82.49) Status:Active Family history of diabetes m ellitus: Sister(V18.0, Z83.3) Status:Active Unknown Family Member Name Dates Details Family history of cardiovasc ular disease: Sister(V17.49, Z82.49) Status:Active Family history of myocardial infarction: Sister(V17.3, Z82.49) Status:Active Family history of diabetes m ellitus: Sister(V18.0, Z83.3) Status:Active Unknown Family Member Name Dates Details Family history of cardiovasc ular disease: Sister(V17.49, Z82.49) Status:Active Family history of myocardial infarction: Sister(V17.3, Z82.49) Status:Active Family history of diabetes m ellitus: Sister(V18.0, Z83.3) Status:Active Advance Directives No Advanced Directives Records Found Advance Directive Response Recorded Date/ Time Advance Directives No November 25th , 2020 12:49pm Chief Complaint KIM NICHOLS is being seen for an annual follow-up of.KIM NICHOLS is being seen for an annual follow-up of.KIM NICHOLS is being seen for an annual follow-up of. Chief Complaint and Reason for Visit Chief Complaint X-ray Additional Source Comments (unrecognized sect ion and content) No Status Records FoundNo Status Records FoundNo Status Records FoundNo Status Records FoundNo Status Records FoundNo Status Records Found INFORMATION SOURCE (unrecogn ized section and content) DATE CREATED AUTHOR 01/05/2022 [facility] DATE CREATED AUTHOR AUTHOR'S ORGANIZ ATION 07/28/2022 [facility] DATE CREATED AUTHOR AUTHOR'S ORGANIZ ATION 05/14/2023 [facility] DATE CREATED AUTHOR AUTHOR'S ORGANIZ ATION 05/14/2023 [employer] DATE CREATED AUTHOR AUTHOR'S ORGANIZ ATION 2023 [facility] DATE CREATED AUTHOR AUTHOR'S ORGANIZ ATION 08/05/2023 [facility] Care Teams (unrecognized sec tion and content) Team Status: Inactive Member Role Status Dates Avi Cervantes MD Primary Care Provider Active Bijan Betts Jr, DO Attending Provider Active Team Status: Active Member Role Status Dates Avi Cervantes MD Primary Care Provider Active University Professor Relationship Specialty Start Date End Date Avi Cervantes MD [address] [place] [address] Referring Family Medicine 04/24/23 University Professor Relationship Specialty Start Date End Date Avi Cervantes MD [address] [place] [address] Referring Family Medicine 04/24/23 University Professor Relationship Specialty Start Date End Date Avi Cervantes MD [address] [place] [address] Referring Family Medicine 04/24/23 University Professor Relationship Specialty Start Date End Date Avi Cervantes MD [address] [place] [address] PCP - General Family Medicine 06/25/23 Avi Cervantes MD [address] [place] [facility] [address] Referring Family Medicine 04/24/23 University Professor Relationship Specialty Start Date End Date Avi Cervantes MD [address] [place] [facility] [address] PCP - General Family Medicine 06/25/23 Avi Cervantes MD [address] [place] [facility] [address] Referring Family Medicine 04/24/23 University Professor Relationship Specialty Start Date End Date Avi Cervantes MD [address] [place] [facility] [address] PCP - General Family Medicine 06/25/23 Avi Cervantes MD [address] [place] [address] Referring Family Medicine 04/24/23 Goals (unrecognized section and content) Goals may be documented in a n alternate section Source Comments (unrecognize d section and content) In the event this informatio n is protected by the Federal Confidentiality of Alcohol and Drug Abuse Patient Records regulations: The Federal rules restrict any use of the information to criminally investigate or prosecute any alcohol or drug abuse patient.[facility] the event this information is protected by the Federal Confidentiality of Alcohol and Drug Abuse Patient Records regulations: The Federal rules restrict any use of the information to criminally investigate or prosecute any alcohol or drug abuse patient.[facility] Company[facility] the event this information is protected by the Federal Confidentiality of Alcohol and Drug Abuse Patient Records regulations: The Federal rules restrict any use of the information to criminally investigate or prosecute any alcohol or drug abuse patient.[facility] Company[facility] the event this information is protected by the Federal Confidentiality of Alcohol and Drug Abuse Patient Records regulations: The Federal rules restrict any use of the information to criminally investigate or prosecute any alcohol or drug abuse patient.[facility] Company[facility] the event this information is protected by the Federal Confidentiality of Alcohol and Drug Abuse Patient Records regulations: The Federal rules restrict any use of the information to criminally investigate or prosecute any alcohol or drug abuse patient.[facility] Company[facility] the event this information is protected by the Federal Confidentiality of Alcohol and Drug Abuse Patient Records regulations: The Federal rules restrict any use of the information to criminally investigate or prosecute any alcohol or drug abuse patient.[facility] Reason for Visit (unrecogniz ed section and content) Reason Comments New Patient Reason Comments Preparations For Procedures Pre-injectio n instructions Reason Comments Low Back Pain New Patient Evaluation FOR RECORDS PERTAINING TO PATIENTS WHO ARE OR HAVE BEEN ENROLLED IN A CHEMICAL DEPENDENCY/SUBSTANCEABUSE PROGRAM, SOME INFORMATION MAY BE OMITTED. This clinical summary was aggregated from multiple sources. Caution should be exercised in using it in the provision of clinical care. This summary normalizes information from multiple sources, and as a consequence, information in this document may materially change the coding, format and clinical context of patient data. In addition, data may be omitted in some cases. CLINICAL DECISIONS SHOULD BE BASED ON THE PRIMARY CLINICAL RECORDS. [facility] [employer] [facility]. provides no warranty or guarantee of the accuracy or completeness of information in this document.
== END 2024-03-12 08:13 | disposition home or self-care (01) ==
LOC: LAB 08:14
PROVIDERS: PCP Family Medicine; Visit Provider Family Medicine
DX: M25.562 Pain in left knee (principal)
CPT/HCPCS: 73562

== ENCOUNTER 2024-04-27 06:37 | Outpatient (OUT) | payer OTHER, SELFPAY ==
--- OUTSIDE RECORDS SUMMARY | 2024-04-27 06:40 | XMS_ITS ---
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 Reilly Hernandez Referring Unavailable Leslie DAVALOS, Dr. Reilly Hernandez Attending Unavailable Dr. Avi Cervantes Primary Care Unavail able Avi Cervantes MD Unavailable Avi Cervantes MD Primary Care Provider [phone] DARREN HARRIS Attending Unavailable AVI CERVANTES Primary Care Unavailable DARREN HARRIS Attending Unavailable JESSICA CAMP Admitting Unavailable JESSICA CAMP Attending Unavailable JESSICA CAMP Referring Unavailable BUTT, BILAL CHINA Attending Unavailable AVI CERVANTES Primary Care Unavailable Allergies Allergy Classification Reported Allergen(s) Allergy Type Date of Onset Reaction(s) Facility (13 sources) Amoxicillin; Translations: [amoxicillin] Drug Allergy 09-26-2020 Judith Beck [facility] (1 source) Amoxicillin Drug Allergy [facility] (1 source) traMADol Drug Allergy [facility] (1 source) Amoxicillin Drug Allergy 09-26-2020 [facility] Encounters Encounter Date Encounter Type Care Provider Facility Start: 2023 End: 2023 ambulatory BILAL CHINA BUTT Facility:[facility] Start: 2023 End: 2023 Office outpatient new 30 minutes Juan R Bey MD Work Phone: [facility] Comment on above: Meralgia paresthetic a of left side (Primary Dx); Chronic midline low back pain without sciatica Start: 08-01-2023 End: 08-01-2023 ambulatory Darren Harris LEMON GROWER.PLASTICS FITTER Work Phone: [facility] Comment on above: Dr chong Cut me open Start: 07-01-2023 End: 07-01-2023 ambulatory JESSICA CAMP Facility:[facility] Start: 06-26-2023 Telephone encounter Jessica Camp DO Work Phone: [facility] Comment on above: Preparations For Pro cedures (Pre-injection instructions) Start: 06-19-2023 Orders Only Jessica hall DO Work Phone: Neurology Comment on above: Lumbar radiculopathy (Primary Dx); Displacement of lumbar intervertebral disc without myelopathy Start: 06-02-2023 End: 06-03-2023 ambulatory DARREN HARRIS Facility:[facility] Start: 06-02-2023 End: 06-02-2023 Patient encounter procedure Darren Harris LEMON GROWER.PLAST[employer] FITTER Work Phone: [facility] Comment on above: Radiculopathy, lumba r region (Primary Dx); Lumbar disc herniation Start: 05-13-2023 Office outpatient vi sit 25 minutes Avi Cervantes Work Phone: [facility] 250 DO Work Phone: Start: 05-13-[address] Reilly Nelson II Facility: Start: 05-06-2023 Chart abstracting None (Historical) Neurology Start: 12-16-2022 Rx Renewal Avi Cervantes Work Phone: [facility] 250 DO Work Phone: Start: 07-17-2022 End: 07-17-2022 ambulatory Bijan Betts Jr Facility:[facility] Start: 07-17-2022 End: 07-17-2022 Departed Referred MD Avi Cervantes Work Phone: [facility] 250 Start: 05-07-2022 Office outpatient vi sit 25 minutes [facility] Work Phone: Start: 01-03-[address] AVI CERVANTES Facility :[facility] Start: 12-21-2021 Encounter for genera l adult medical examination without abnormal findings DR AVI CERVANTES [facility] Start: 12-20-2021 End: 12-21-[address] AVI CERVANTES Facility:[facility] Start: 12-20-2021 End: 12-21-2021 Encounter for general adult medical examination without abnormal findings DR AVI CERVANTES Facility:[facility] Start: 12-10-2021 Rx Renewal Reilly mcmahon MD [facility] Work Phone: Immunizations Immunization Date Immunization Notes Care Provider [facility] 10-14-2022 Pfizer COVID-19 Vac Bivalent 30 MCG/0.3ML Intramuscular Suspension Avi Cervantes [facility] Work Phone: 10-03-2022 influenza, injectabl e, quadrivalent, preservative free Avi [facility]ervantes [facility] Work Phone: 10-03-2022 influenza virus vacc ine, unspecified formulation Darren Harris LEMON GROWER.PLAST[employer] FITTER Work Phone: [facility] 03-22-2022 Comirnaty 30 MCG/0.3 ML Intramuscular Suspension Avi Cervantes [facility] Work Phone: 03-22-2022 Moderna COVID-19 Vac cine 100 MCG/0.5ML Intramuscular Suspension Avi Cervantes Work Phone: [facility] Comment on above: Series: 03-22-2022 zoster vaccine recombinant Avi M Hoy Work Phone: [facility] DO Work Phone: 09-03-2021 Pfizer-BioNTech COVI D-19 Vacc 30 MCG/0.3ML Intramuscular Suspension Avi M Hoy Work Phone: [facility] 08-25-2021 influenza, injectabl e, quadrivalent, preservative free Avi M Hoy Work [facility]: [facility] DO Work Phone: 08-25-2021 zoster vaccine recombinant Avi M Hoy [facility] DO Work Phone: 02-13-2021 Pfizer-BioNTech COVI D-19 Vacc 30 MCG/0.3ML Intramuscular Suspension Avi M Hoy Work Phone: [facility] 01-13-2021 Pfizer-BioNTech COVI D-19 Vacc 30 MCG/0.3ML Intramuscular Suspension Avi M Hoy Work Phone: [facility] 12-23-2020 Pfizer-BioNTech COVI D-19 Vacc 30 MCG/0.3ML Intramuscular Suspension Avi M Hoy Work Phone: [facility] 08-28-2020 influenza, injectabl e, quadrivalent, preservative free Avi M Hoy Work Phone: [facility] 250 DO Work Phone: 08-28-2020 influenza virus vacc ine, unspecified formulation Juan R Bey MD Work Phone: [facility] Medications Current Medications Medication Drug Class(es) Dates [...] P O Q6H September 26, 2020 1:00am Miami 5-325 MG T ABS TAKE 1 TABLET [...] Reilly Nelson MD Start : 10-Dec-2021 Active Payers Date Payer Category Payer Self-pay [id number] [phone] [id number] 2021 Private Health Insurance [employer] A ETNA POS [id number] 2021-Present [phone] [address] [place] [address] POS [id number] 1960 Unknown [id number] 1960 Unknown [id number] 1960 Unknown [id number] 1959 Private Health Insurance [id number] 1958 Self-pay [id number] Unknown Unknown [facility] [id number] Unknown [id number] Plan of Treatment Date Care Activity Detail Author Start: 12-20-2026 PROSTATE CANCER SCREENING DISCUSSION PROSTATE CANCER SCREENING DISCUSSION [facility] Start: 06-27-2023 Influenza vaccination [facility] Start: 05-13-2023 FUV, Provider: Reilly Nelson, Status: Jus, Time: 11:10 AM FUV, Provider: Reilly Nelson, Status: Jus, Time: 11:10 AM [facility] 250 DO Work Phone: Start: 10-27-2022 DEPRESSION ASSESSMENT DEPRESSION ASS ESSMENT [facility] Start: 05-17-2022 COVID-19 VACCINE (6 - Pfizer series) COVID-19 VACCINE (6 - Pfizer series) [facility] Start: 05-15-2022 FUV, Provider: Reilly Nelson, Status: Jus, Time: 2:00 PM FUV, Provider: Reilly Nelson, Status: Jus, Time: 2:00 PM [facility] 250 DO Work Phone: Start: 07-02-2020 Colonoscopy COLONOSCOPY [facility] Start: 07-02-2020 COLORECTAL CANCER SCREENING COLORECTAL CANCER SCREENING [facility] Start: 2016 Prostate Cancer Screening Discussion Prostate Cancer Screening Discussion [facility] Start: 2011 SHINGRIX VACCINE (1 of 2) SHINGRIX VACCINE (1 of 2) [facility] Start: 2006 COLOGUARD (FIT-DNA) COLOGUARD (FIT-D NA) [facility] Start: [address] COLONOGRAPHY [facility] Start: 2006 DIABETES SCREEN DIABETES SCREEN [facility] Start: 2006 Diabetes Screening Diabetes Screenin g [facility] Start: 2006 FECAL OCCULT BLOOD FECAL OCCULT BLOO D [facility] Start: 2006 SIGMOIDOSCOPY SIGMOIDOSCOPY [facility] Start: 1996 Lipid 1996 panel - S hayden or Plasma Lipid Screening [facility] Start: 1996 LIPID SCREEN LIPID SCREEN [facility] Start: 1980 Urine microalbumin profile [facility] Start: 1979 HEPATITIS C SCREENING HEPATITIS C SC REENING [facility] Start: 1979 HIV SCREENING HIV SCREENING [facility] End: 09-02-2024 Radex spine lumbosacral minimum 4 views XR LUMBAR MOTION 4V AP/LAT/ FLEX/EXT Radiology Routine Meralgia paresthetica of left side 1 Occurrences starting 2023 until 09/02/2024 [facility] Work Phone: Comment on above: 1 Occurrences starti ng 2023 until 09/02/2024 SPINE INTERVENTION PROCEDURE SPINE INTERVENTION PROCEDURE Procedures Routine Radiculopathy, lumbar region Lumbar disc herniation Ordered: 06/02/2023 [facility] Work Phone: Comment on above: Ordered: 06/02/2023 [facility] Problems Active Problems Problem Classification Problem Date Documented Date Episodic/Chronic Coronary atherosclerosis and other heart disease (4 sources) Coronary arteriosclerosis; Translations: [Coronary atherosclerosis of unspecified type of vessel, [place] or graft] Chronic Diabetes mellitus without complication [...] Never smoked tobacco; Translations: [Never a smoker] Procedures Date Procedure Procedure Detail Performing Clinician Start: 07-17-2022 Radiologic examinati on of knee MD Avi Cervantes Work Phone: Start: 12-20-[address] RONDA CERVANTES Comment on above: Performed By: #### P [facility] #### [facility] [address] [place] [address] Dr. Conor Chan Start: 06-09-2020 Total colonoscopy Chaz Nelson MD Work Phone: Start: 07-02-2019 Colonoscopy Darren harris [facility] Work Phone: Cardiac catheterization Will renetta Nelson MD Work Phone: Cholecystectomy Reilly miranda MD Work Phone: Results Test Name Value Interpretation Reference Range Facility CNOVon 2023 CNOV Office Visit (SPSLUH ) KIM NICHOLS ([id number]) 1960 M Date Time Provider Department 08/04/23 8:00 AM JUAN R BEY SPSLUH During your visit today, we recorded the following information about you: Weight Height 120.2 kg 1.829 m Paul Bossman [place] 2023 9:14 AM Signed Pt has been [...] opioids Medications: [facility] MEDICATIONS: Gabapentin, [place], Tylenol Have you ever seen a pain [...] issues. 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 [facility] 07-08-2023 [facility] Telephone (SPNMMN) KIM NICHOLS ([id number]) 1960 M Date Time Provider Department 07/08/23 JESSICA CAMP [facility] During your visit today, we recorded the following information about you: Stacy Gallagher RN 07/08/2023 12:56 PM Signed Post Spine Injection phone call: [phone] on 07/08/23 Patient denies fever, chills, new [...] appointment 2-4 weeks post procedure by calling [phone] Patient does not have any questions or concerns. Patient will call office with any questions or concerns. Allergies As of Date: 07/08/2023 Noted Allergy Reaction AMOXICILLIN 09/26/2020 4 - Hives 2 - Rash Date Reviewed: 07/01/2023 Reviewed by: Fausto Pal RN - Fully Assessed Reason for Visit: [...] Encounter Status:Closed by STACY GALLAGHER on 07/08/23 [facility] HISTORY PHYSICALon HISTORY PHYSICAL HNO ID: [id number] Author: Sherice Galvin APRN.PLASTICS FITTER Service: ? Author Type: Nurse Practitioner Type: [...] July 01, 2023 TIME: 9:04 AM Normal [facility] OPERATIVE NOon 07-01-2023 OPERATIVE NO HNO ID: [id number] Author: Jessica Camp DO Service: Physical Medicine AND Rehabilitation Author Type: Physician Type: Operative Report Filed: 07/01/2023 9:40 AM Note Text: PROCEDURE REPORT Surgery/Procedure Date: July 01, 2023 Interventionalist: Jessica Camp DO Procedure(s): Left L5 transforaminal epidural steroid injection Pre-Op/Pre-Procedure Diagnosis: Lumbar radiculopathy Post-Op Diagnosis: same SUBJECTIVE: Kim Nichols is a 62 year old male, who presents to the [facility] for a left L5 transforaminal epidural steroid injection. This is his first (1) procedure. 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 Pain is central [...] home in stable condition. DO Fátima Castrejon [facility] 06-26-2023 [facility] Telephone (SPNMMN) LANIEKIM Zhang ([id number]) 1960 M Date Time Provider Department 06/26/23 JESSICA CAMP [facility] During your visit today, we recorded the following information about you: Oscar Rollins LPN 06/26/2023 9:20 AM Signed Phoned patient and message left for Kim to confirm appointment for Kim Nichols for spine procedure on 07/01/2023. Patient notified that [facility] will call patient the night before with the time to arrive for injection. Patient verbalized understanding of the following: -Provided education on spine procedure and answered questions related to spine injection procedure. -Director Speech is needed to drive patient home. -NPO [...] to report. Diabetic: No Patient given number [phone], spine injections schedulers, if there is any [...] Encounter Status:Closed by OSCAR ROLLINS on 06/26/23 [facility] CNOVon 06-02-2023 CNOV Office Visit (SPNSMN ) KIM NICHOLS ([id number]) 1960 M Date Time Provider Department 06/02/23 1:40 PM DARREN HARRIS SPNSMN During your visit today, we recorded the following information about you: Pulse Respiration Blood pressure Weight 63/minute 18/minute 128/84 117 kg Height 1.829 m Darren Harris APRN.PLASTICS FITTER 06/03/2023 1:01 PM Signed SPINE SURGERY OUTPATIENT [...] with him pain. He also is prescribed Miami for breakthrough pain which he only takes [...] well de (more content not included)... Normal [facility] Office Visit (Cardiology)on 05-13-2023 Follow-up visit Diagnoses/Problems Assessed Coronary disease (414.00) (I25.10) Essential hypertension, benign (401.1) (I10) Hyperlipidemia (272.4) (E78.5) Class 2 obesity with body mass index (BMI) of 36.0 to 36.9 in adult (278.00,V85.36) (E66.9,Z68.36) Never a smoker Orders Class 2 obesity with body mass index (BMI) of 36.0 to 36.9 in adult Healthy Weight Tips; Status:Complete - Retrospective Authorization; Done: [id number] Some eating tips that can help you lose weight.; Status:Complete - Retrospective Authorization; Done: [id number] Coronary disease, Hyperlipidemia Renew: Aspirin EC Low Dose 81 MG Oral Tablet Delayed Release; TAKE 1 TABLET DAILY DIRECTED Hyperlipidemia Renew: Rosuvastatin Calcium 20 MG Oral Tablet; take 1 tablet by mouth at bedtime SocHx: Never a smoker Tobacco Use Screening; Status:Complete; Done: [id number] Patient Instructions Please bring all medicines, vitamins, [...] MG Oral CapsuleTAKE 1 CAPSULE TWICE DAILY. Miami 5-325 MG TABSTAKE 1 TABLET EVERY 4 [...] negative for complaint. Vitals Vital Signs Recorded: [id number] 11:22AM Heart Rate64, R Radial Vrqnnvgf892, RUE, Sitting Acccpnlej74, RUE, Sitting Height6 ft Xlefxl342 lb BMI Glqkbwrzww68.21 kg/m2 BSA Calculated2.41 Tobacco Useb) No PHQ-2 [...] no hep (more content not included)... Normal [facility] Tobacco Screening.on 023 Adult depression screening assessment No [facility] 250 DO Work Phone: Tobacco use status [facility]PH[facility] b) No [facility] 250 DO Work Phone: XR knee LT 4V*on 07-17-2022 XR knee LT 4V* [facility] Main [place] [address] [place] [address] XRay Report Signed Patient: Kim Nichols MR#: [id number] : 1960 Acct:[id number] Age/Sex: 61 / M ADM Date: 07/17/22 Loc: [place] Room: Type: REG REF Attending Dr: Bijan Betts Jr, DO Copies [...] Stacy Ellis M.D.07/17/2022 1:18 PM Dictation Location: [place] [address] Transcribed By: [facility] 07/17/22 1318 Dictated By: Stacy Ellis MD 07/17/22 1315 Signed By: 07/17/22 1318 [facility] Tobacco Screening.on 022 Adult depression screening assessment No [facility] 250 DO Work Phone: Fall risk assessment c) Not medically indicated [facility] 250 DO Work Phone: Tobacco use status [facility] b) No [facility] DO Work Phone: H PYLORI ANTIBODY IGGon 11-28 H. PYLORI IGG ABS 0.45 Index Value Normal 0.00-0.79 [facility] Comment on above: Result Comment: Nega tive <0.80 Equivocal 0.80 - 0.89 Positive >0.89 Performed By: #### L IPID, TSH, T7, URIC, CMP #### [facility] [address] [address] [address] Conor Chan INSULINon 12-21-2021 Insulin 55.2 uIU/mL Critically high 2.6-24.9 [facility] Comment on above: Performed By: #### I NSULIN #### [facility] [address] [address] [address] Conor Chan TESTOSTERONE, TOTALon 2021 Testosterone [Mass/Vol] 380 ng/dL Normal 264-916 [facility] Comment on above: Result Comment: Adul t male reference interval is based on a population of healthy nonobese males (BMI <30) between 19 and 39 years old. Travison, et.al. JCEM 2017,102;0588-3330. PMID: [id number]. Performed By: #### L IPID, TSH, T7, URIC, CMP #### [facility] [address] [address] [address] Conor Chan CBC AUTO DIFFon 12-20-2021 BASO # 0.0 103/ul Normal 0.0-0.1 [facility] Comment on above: Performed By: #### C BC #### [facility] [address] [place] [address] Dr. Conor Chan Basophils/100 WBC (Bld) 0.5 % Normal 0.2-2.0 [facility] Comment on above: Performed By: #### C BC #### [facility] [address] [place] [address] Dr. Conor Chan EO # 0.2 103/ul Normal 0.0-0.7 [facility] Comment on above: Performed By: #### C BC #### [facility] [address] [place] [address] Dr. Conor Chan Eosinophils/100 WBC (Bld) 3.5 % Normal 0.9-7.0 [facility] Comment on above: Performed By: #### C BC #### [facility] [address] [place] [address] Dr. Conor Chan Erythrocyte distribution width (RBC) [Ratio] 13.8 % Normal 11.0-15.0 [facility] Comment on above: Performed By: #### C BC #### [facility] [address] [place] [address] Dr. Conor Chan Hematocrit (Bld) [Volume fraction] 48.5 % Normal 42.0-54.0 [facility] Comment on above: Performed By: #### C BC #### [facility] [address] [place] [address] Dr. Conor Chan Hemoglobin (Bld) [Mass/Vol] 16.3 g/dL Normal 14.0-18.0 [facility] Comment on above: Performed By: #### C BC #### [facility] [address] [place] [address] Dr. Conor Chan IG # 0.02 10e3/ul Normal 0.00-0.03 [facility] Comment on above: Performed By: #### C BC #### [facility] [address] [place] [address] Dr. Conor Chan IG % 0.3 % Normal 0.0-0.5 [facility] Comment on above: Performed By: #### C BC #### [facility] [address] [place] [address] Dr. Conor Chan LYMPH # 1.4 103/ul Normal 1.2-3.8 [facility] Comment on above: Performed By: #### C BC #### [facility] [address] [place] [address] Dr. Conor Chan Lymphocytes/100 WBC (Bld) 21.7 % Normal 20.5-60.0 [facility] Comment on above: Performed By: #### C BC #### [facility] [address] [place] [address] Dr. Conor Chan MANUAL DIFF REQ NO Normal [facility] Comment on above: Performed By: #### C BC #### [facility] [address] [place] [address] Dr. Conor Chan MCH (RBC) [Entitic mass] 28.5 pg Normal 25.9-34.0 [facility] Comment on above: Performed By: #### C BC #### [facility] [address] [place] [address] Dr. Conor Chan MCHC (RBC) [Mass/Vol] 33.6 g/dL Normal 29.9-35.2 [facility] Comment on above: Performed By: #### C BC #### [facility] [address] [place] [address] Dr. Conor Chan MCV (RBC) [Entitic vol] 84.9 fL Normal 80.0-94.0 [facility] Comment on above: Performed By: #### C BC #### [facility] [address] [place] [address] Dr. Conor Chan MONO # 0.6 103/ul Normal 0.3-0.8 [facility] Comment on above: Performed By: #### C BC #### [facility] [address] [place] [address] Dr. Conor Chan Monocytes/100 WBC (Bld) 9.3 % Normal 1.7-12.0 [facility] Comment on above: Performed By: #### C BC #### [facility] [address] [place] [address] Dr. Conor Chan NEUT # 4.1 103/ul Normal 1.4-6.5 [facility] Comment on above: Performed By: #### C BC #### [facility] [address] [place] [address] Dr. Conor Chan Neutrophils/100 WBC (Bld) 64.7 % Normal 43.0-75.0 [facility] Comment on above: Performed By: #### C BC #### [facility] [address] [place] [address] Dr. Conor Chan Platelet mean volume (Bld) [Entitic vol] 9.8 fL Normal 9.5-13.5 [facility] Comment on above: Performed By: #### C BC #### [facility] [address] [place] [address] Dr. Conor Chan PLT 235 103/ul Normal 150-450 [facility] Comment on above: Performed By: #### C BC #### [facility] [address] [place] [address] Dr. Conor Chan RBC 5.71 106/ul Normal 4.70-6.10 [facility] Comment on above: Performed By: #### C BC #### [facility] [address] [place] [address] Dr. Conor Chan WBC 6.4 103/ul Normal 4.0-11.0 [facility] Comment on above: Performed By: #### C BC #### [facility] [address] [place] [address] Dr. Conor Chan FREE THYROXINE INDEX T7on FTI 2.89 Normal [facility] Comment on above: Performed By: #### L IPID, TSH, T7, URIC, CMP #### [facility] [address] [address] [address] Conor Chan T3U 34.0 % Normal 23.5-40.5 [facility] Comment on above: Performed By: #### L IPID, TSH, T7, URIC, CMP #### [facility] [address] [place] [address] Dr. Conor Chan T4 [Mass/Vol] 8.50 ug/dL Normal 5.53-11.00 [facility] Comment on above: Performed By: #### L IPID, TSH, T7, URIC, CMP #### [facility] [address] [address] [address] Conor Chan GLYCOHEMOGLOBIN A1Con 2021 ADA RECOMMENDATION ADA THERAPEUTIC TARGET 6.0 - 7.0 ACTION SUGGESTED > 7.0 Normal [facility] Comment on above: Performed By: #### A 1C #### [facility] [address] [place] [address] Dr. Conor Chan Glucose [Mass/Vol] 126 mg/dL Normal [facility] Comment on above: Performed By: #### A 1C #### [facility] [address] [place] [address] Dr. Conor Chan HbA1c (Bld) [Mass fraction] 6.0 % Normal <=6.0 [facility] Comment on above: Performed By: #### A 1C #### [facility] [address] [place] [address] Dr. Conor Chan LIPID PROFILEon 12-20-2021 CHOL-HDL RATIO NORM SEE BELOW Normal [facility] Comment on above: Result Comment: 3.3 - 4.4 LOW RISK 4.4 - 7.1 AVERAGE RISK 7.1 - 11.0 MODERATE RISK >11.0 HIGH RISK Performed By: #### L IPID, TSH, T7, URIC, CMP #### [facility] Laboratory [address] [place] [address] Dr. Conor Chan Cholesterol [Mass/Vol] 161 mg/dL Normal <=200 [facility] Comment on above: Performed By: #### L IPID, TSH, T7, URIC, CMP #### [facility] [address] [address] [address] Conor Chan Cholesterol in HDL [Mass/Vol] 50 mg/dL Normal [facility] Comment on above: Performed By: #### L IPID, TSH, T7, URIC, CMP #### [facility] [address] [address] [address] Conor Chan Cholesterol in LDL [Mass/Vol] 96.0 mg/dL Normal [facility] Comment on above: Performed By: #### L IPID, TSH, T7, URIC, CMP #### [facility] [address] [place] [address] Dr. Conor Chan Cholesterol.total/Ch olesterol in HDL [Mass ratio] 3.2 {ratio} Normal [facility] Comment on above: Performed By: #### L IPID, TSH, T7, URIC, CMP #### [facility] [address] [place] [address] Dr. Conor Chan HDL NORMAL > or = 60 mg/dl - LO W CARDIOVASCULAR RISK <40 mg/dl - HIGH CARDIOVASCULAR RISK Normal [facility] Comment on above: Performed By: #### L IPID, TSH, T7, URIC, CMP #### [facility] [address] [place] [address] Dr. Conor Chan LDL CALC NORMAL SEE BELOW Normal [facility] Comment on above: Result Comment: <100 mg/dl OPTIMAL 100 - 129 mg/dl NEAR OR ABOVE OPTIMAL 130 - 159 mg/dl BORDERLINE HIGH 160 - 189 mg/dl HIGH >190 mg/dl VERY HIGH Performed By: #### L IPID, TSH, T7, URIC, CMP #### [facility] [address] [place] [address] Dr. Conor Chan Triglyceride [Mass/Vol] 75 mg/dL Normal <=150 [facility] Comment on above: Performed By: #### L IPID, TSH, T7, URIC, CMP #### [facility] [address] [place] [address] Dr. Conor Chan VLDL CALC 15.0 mg/dL Normal [facility] Comment on above: Performed By: #### L IPID, TSH, T7, URIC, CMP #### [facility] [address] [place] [address] Dr. Conor Chan PROF 14(COMP METB)on 022 Albumin [Mass/Vol] 3.7 g/dL Normal 3.5-5.0 [facility] Comment on above: Performed By: #### L IPID, TSH, T7, URIC, CMP #### [facility] [address] [place] [address] Dr. Conor Chan Albumin/Globulin [Mass ratio] 0.9 {ratio} Normal [facility] Comment on above: Performed By: #### L IPID, TSH, T7, URIC, CMP #### [facility] [address] [place] [address] Dr. Conor Chan ALP [Catalytic activity/Vol] 58 U/L Normal 38-126 [facility] Comment on above: Performed By: #### L IPID, TSH, T7, URIC, CMP #### [facility] [address] [place] [address] Dr. Conor Chan ALT [Catalytic activity/Vol] 40 U/L Normal 21-72 [facility] Comment on above: Performed By: #### L IPID, TSH, T7, URIC, CMP #### [facility] [address] [address] [address] oCnor Chan Anion gap [Moles/Vol] 5.5 mmol/L Normal [facility] Comment on above: Performed By: #### L IPID, TSH, T7, URIC, CMP #### [facility] [address] [address] [address] Conor Chan AST [Catalytic activity/Vol] 18 U/L Normal 17-59 [facility] Comment on above: Performed By: #### L IPID, TSH, T7, URIC, CMP #### [facility] [address] [address] [address] Conor Chan Bilirubin [Mass/Vol] 0.5 mg/dL Normal 0.2-1.3 [facility] Comment on above: Performed By: #### L IPID, TSH, T7, URIC, CMP #### [facility] [address] [place] [address] Dr. Conor Chan Calcium [Mass/Vol] 9.9 mg/dL Normal 8.4-10.2 [facility] Comment on above: Performed By: #### L IPID, TSH, T7, URIC, CMP #### [facility] [address] [place] [address] Dr. Conor Chan Chloride [Moles/Vol] 97 mmol/L Critically low 98-107 [facility] Comment on above: Performed By: #### L IPID, TSH, T7, URIC, CMP #### [facility] [address] [place] [address] Dr. Conor Chan CO2 [Moles/Vol] 30.7 mmol/L Critically high 22.0-30.0 [facility] Comment on above: Performed By: #### L IPID, TSH, T7, URIC, CMP #### [facility] [address] [place] [address] Dr. Conor Chan Creatinine [Mass/Vol] 1.04 mg/dL Normal 0.66-1.25 [facility] Comment on above: Performed By: #### L IPID, TSH, T7, URIC, CMP #### [facility] [address] [place] [address] Dr. Conor Chan EGFR-AF MARTINIQUAIS >60 Normal >=60 [facility] Comment on above: Performed By: #### L IPID, TSH, T7, URIC, CMP #### [facility] [address] [place] [address] Dr. Conor Chan EGFR-NON AF MARTINIQUAIS >60 Normal >=60 [facility] Comment on above: Performed By: #### L IPID, TSH, T7, URIC, CMP #### [facility] [address] [place] [address] Dr. Conor Chan Globulin (S) [Mass/Vol] 4.2 g/dL Normal [facility] Comment on above: Performed By: #### L IPID, TSH, T7, URIC, CMP #### [facility] [address] [place] [address] Dr. Conor Chan Glucose [Mass/Vol] 122 mg/dL Critically high 74-106 [facility] Comment on above: Performed By: #### L IPID, TSH, T7, URIC, CMP #### [facility] [address] [place] [address] Dr. Conor Chan Potassium [Moles/Vol] 3.2 mmol/L Critically low 3.4-5.0 [facility] Comment on above: Performed By: #### L IPID, TSH, T7, URIC, CMP #### [facility] [address] [place] [address] Dr. Conor Chan Protein [Mass/Vol] 7.9 g/dL Normal 6.1-8.2 [facility] Comment on above: Performed By: #### L IPID, TSH, T7, URIC, CMP #### [facility] [address] [place] [address] Dr. Conor Chan Sodium [Moles/Vol] 130 mmol/L Critically low 137-145 [facility] Comment on above: Performed By: #### L IPID, TSH, T7, URIC, CMP #### [facility] [address] [place] [address] Dr. Conor Chan Urea nitrogen [Mass/Vol] 15.0 mg/dL Normal 9.0-20.0 [facility] Comment on above: Performed By: #### L IPID, TSH, T7, URIC, CMP #### [facility] [address] [place] [address] Dr. Conor Chan Urea nitrogen/Creatinine [Mass ratio] 14.4 mg/mg Normal [facility] Comment on above: Performed By: #### L IPID, TSH, T7, URIC, CMP #### [facility] [address] [place] [address] Dr. Conor Chan TSHon 12-20-2021 TSH 2.122 uIU/mL Normal 0.470-4.680 [facility] Comment on above: Performed By: #### L IPID, TSH, T7, URIC, CMP #### [facility] [address] [address] [address] Conor Chan TSH RANGE SEE BELOW Normal [facility] Comment on above: Result Comment: <0.3 4 UIU/ml HYPERTHYROID 0.34-5.60 UIU/ml EUTHYROID >5.60 UIU/ml HYPOTHYROID Performed By: #### L IPID, TSH, T7, URIC, CMP #### [facility] [address] [address] [address] Conor Chan URIC ACID SERUMon 12-20-2021 Urate [Mass/Vol] 7.3 mg/dL Normal 3.5-8.5 [facility] Comment on above: Performed By: #### L IPID, TSH, T7, URIC, CMP #### [facility] [address] [address] [address] Conor Chan XR LSPINE MIN 4 [...] by: OSCAR FRANCO Date: 2021-12-20 10:06 Normal [facility] Social History Date Type Detail Facility Start: 07-28-2023 Gender identity Identifies as male gender (finding) [facility] Start: 07-28-2023 Sexual orientation Heterosexual (fin rajan) [facility] Start: 06-02-2023 End: 08-01-2023 Consumes alcohol Consumes alcohol [facility] Comment on above: socially; occasional; Start: 06-02-2023 End: 08-01-2023 Gender identity Not on file [facility] Start: 06-02-2023 Tobacco use and exposure Smokeless tobacco non-user [facility] Start: 09-28-2020 End: 06-02-2023 Tobacco smoking status NHIS Never smoked tobacco (finding) [facility] Start: 1960 Sex Assigned At Male [facility] Start: 1960 Sex Assigned At Not on file [facility] unknown [facility] National Score (1-10 0), lower number is lower risk 61 [facility] Vital Signs Date Time Vital Sign Value Performing Clinician Faci lity 2023 08:03-0400 Body height 182.9 cm Bilal Butt Work Phone: [facility] 2023 08:03-0400 Body weight 120.2 kg Bilal Butt Work Phone: [facility] 06-02-2023 13:26-0400 Body height 182.9 cm Darren Harris APRN.PLASTICS FITTER Work Phone: [facility] 06-02-2023 13:26-0400 Body weight 117.03 kg Darren Harris APRN.PLASTICS FITTER Work Phone: [facility] 06-02-2023 13:26-0400 Diastolic blood pressure 84 mm[Hg] Darren Harris APRN.PLASTICS FITTER Work Phone: [facility] 06-02-2023 13:26-0400 Heart rate 63 /min Darren Harris APRN.PLASTICS FITTER Work Phone: [facility] 06-02-2023 13:26-0400 Respiratory rate 18 /min Darren Harris APRN.PLASTICS FITTER Work Phone: [facility] 06-02-2023 13:26-0400 SaO2% (BldA) [Mass fraction] 95 % Darren Harris APRN.PLASTICS FITTER Work Phone: [facility] 06-02-2023 13:26-0400 Systolic blood pressure 128 mm[Hg] Darren Harris APRN.PLASTICS FITTER Work Phone: [facility] 05-13-2023 11:22-0400 Body height 182.88 cm Avi Lauren Billy Work Phone: [facility] [address] DO Work Phone: 05-13-2023 11:22-0400 Body mass index (BMI) [Ratio] 36.21 kg/m2 Avi M Hoy Work Phone: [facility] 250 DO Work Phone: 05-13-2023 11:22-0400 Body surface area Derived from formula 2.41 m2 Avi M Hoy Work Phone: [facility] [address] DO Work Phone: 05-13-2023 11:22-0400 Body weight 121.11 kg Avi M Hoy Work Phone: [facility] [address] DO Work Phone: 05-13-2023 11:22-0400 Diastolic blood pressure 78 mm[Hg] Avi M Hoy Work Phone: [facility] [address] DO Work Phone: 05-13-2023 11:22-0400 Heart rate 64 /min Avi M Hoy Work Phone: [facility] [address] DO Work Phone: 05-13-2023 11:22-0400 Systolic blood pressure 132 mm[Hg] Avi M Hoy Work Phone: [facility] [address] DO Work Phone: 05-07-2022 11:36-0400 Body height 182.88 cm Avi M Hoy Work Phone: [facility] [address] DO Work Phone: 05-07-2022 11:36-0400 Body mass index (BMI) [Ratio] 38.38 kg/m2 Avi M Hoy Work Phone: [facility] DO Work Phone: 05-07-2022 11:36-0400 Body surface area Derived from formula 2.47 m2 Avi M Hoy Work Phone: [facility] DO Work Phone: 05-07-2022 11:36-0400 Body weight 128.37 kg Avi Cervantes Work Phone: [facility] DO Work Phone: 05-07-2022 11:36-0400 Diastolic blood pressure 72 mm[Hg] Avi Cervantes Work Phone: [facility] DO Work Phone: 05-07-2022 11:36-0400 Heart rate 66 /min Avi Cervantes Work Phone: [facility] DO Work Phone: 05-07-2022 11:36-0400 Systolic blood pressure 110 mm[Hg] Avi Cervantes Work Phone: [facility] DO Work Phone: Clinical Notes 05-06-2023 to 2023 Juan R Bey MD - 2023 8:40 AM EDTPBossman Brian - 2023 7:48 AM EDTTelephone Encounter - Oscar Rollins LPN - 06/26/2023 9:12 AM EDT Note Date & Type Note Facility 2023 Note HNO ID: [id number] Author: Juan R Bey MD Service: ? [...] issues. 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 [facility] 2023 Note HNO ID: [id number] Author: Bossman Saunders Service: ? Author Type: [...] opioids Medications: See medication reconciliation list in [facility] MEDICATIONS: Gabapentin, [place], Tylenol Have you ever seen a pain [...] issues. 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 Author Type: Nurse Practitioner Type: Progress Notes Filed: 08/01/2023 1:30 PM Note Text: SPINE SURGERY ESTABLISHED VISIT This is a virtual visit using [employer] Video Visit. It required patient-provider interaction for the medical decision making as documented below. DATE OF SERVICE: 08/01/2023 DATE OF LAST VISIT: 06/02/2023 SUBJECTIVE: HPI:Kim Nichols is a 62 year old male presenting via virtual vist s/p Left L5 transforaminal epidural steroid injection on 07/01/[address] Camp. [place] great initially and for the first few [...] which included preparing to see the patient, [id number] patient care, completing clinical documentation, obtaining and/or reviewing separately obtained history, performing a medically appropriate examination, counseling and educating the patient/family/caregiver, independently interpreting results (not separately reported), and communicating results to the patient/family/caregiver. SIGNATURE: Darren Harris APRN.PLASTICS FITTER PATIENT NAME: Kim Nichols DATE: August 01, 2023 TIME: 12:53 PM PAGER: [facility] 06-26-2023 Miscellaneous Notes Phoned patient and message left for Kim to confirm appointment for Kim Nichols for spine procedure on 07/01/2023. Patient notified that [facility] will call patient the night before with the time to arrive for injection. Patient verbalized understanding of the following: -Provided education on spine procedure and answered questions related to spine injection procedure. -Director Speech is needed to drive patient home. -NPO [...] to report. Diabetic: No Patient given number [phone], spine injections schedulers, if there is any [...] POST INJECTION INSTRUCTIONS documented in this encounter [facility] 06-02-2023 Note HNO ID: [id number] Author: Darren Harris APRN.PLASTICS FITTER Service: ? Author Type: Nurse Practitioner Type: [...] with him pain. He also is prescribed Miami for breakthrough pain which he only takes [...] Normal. DATA REVIE (more content not included)... [facility] 06-02-2023 History of Presen t illness Narrative [...] with him pain. He also is prescribed Miami for breakthrough pain which he only takes [...] which included preparing to see the patient, [id number] patient care, completing clinical documentation, obtaining and/or reviewing separately obtained history, performing a medically appropriate examination, counseling and educating the patient/family/caregiver, independently interpreting results (not separately reported), and communicating results to the patient/family/caregiver. SIGNATURE: Darren Harris APRN.CNP PATIENT NAME: Kim Nichols DATE: June 02, 2023 TIME: 1:57 PM PAGER: documented in this encounter [facility] 05-14-2023 Note HNO ID: [id number] Author: Ember Deltaorre PA-C Service: ? Author Type: Physician Sas Statistical Programmer Type: Progress Notes Filed: 05/14/2023 4:17 PM Note Text: Per Triage: Kim Nichols is a 62 year old male that requests evaluation of lumbar spine. Per review, they have symptoms of back and LLE pain. Positive for numbness. CMT: Medication: Gabapentin, Tylenol, [place] Studies (Reports unless indicated) MRI Lumbar: L4/5 moderate left foramen narrowing which may contribute to patient's symptoms 2. L5/S1 disc protrusion without significant canal or foramen narrowing. Disposition: Please schedule with surgical SANDY. Consider if injection is appropriate or on effective dose of Neurontin. Also see if symptoms correlate with imaging. [facility] 05-14-2023 History of Presen t illness Narrative Per Triage: Kim Nichols is a 62 year old male that requests evaluation of lumbar spine. Per review, they have symptoms of back and LLE pain. Positive for numbness. CMT: Medication: Gabapentin, Tylenol, [place] Studies (Reports unless indicated) MRI Lumbar: L4/5 [...] Health Provider or Pain Management Provider at [facility]? No If answer is YES please [...] facility where the MRI/CT/myelogram was completed: [facility] [address] [place] [address] MRI/CT/myelogram viewable in Epic: No If not, please provide [phone] to fax in imaging reports for review. [...] Additional Comments Hydrocodone documented in this encounter [facility] 05-06-2023 Note HNO ID: [id number] Author: Mauricio Kelley Service: ? Author Type: ? Type: Progress Notes Filed: 05/14/2023 4:17 PM Note Text: Patient name: Kim Nichols Are you being referred by a [place] for Spine Health Provider or Pain Management Provider at [facility]? No If answer is YES please [...] facility where the MRI/CT/myelogram was completed: [facility] [place] [id number] MRI/CT/myelogram viewable in Epic: No If not, please provide [phone] to fax in imaging reports for review. [...] the surgery was completed: Additional Comments Hydrocodone [facility] Evaluation note No assessment inform ation available 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 [facility] Lumbar radiculopathy- Primary Thoracic or lumbosacral neuritis or radiculitis, unspecified Displacement of lumbar intervertebral disc without myelopathy [facility] Diagnosis Meralgia paresthetica of left side- Primary Meralgia paresthetica Chronic midline low back pain without sciatica [facility] of Present illness NarrativePatient returns in follow-up [...] to their favorable impact on blood pressure andcholesterol.-[facility] DO Work Phone: History [...] to call if they arise or occur. [facility] Beep DO Work Phone: History of Present illness [...] to call if they arise or occur. [facility] LOOKSIMA 361 DO Work Phone: Reason for referral (narrative)* Diagnostic Procedure Only (Routine) - Pending Review Specialty Diagnoses / Procedures Referred By Contac t Referred To Contact XR IMAGING Diagnoses Meralgia paresthetica of left side Procedures XR LUMBAR MOTION 4V AP/LAT/ FLEX/EXT RADEX SPINE LUMBOSACRAL MINIMUM 4 VIEWS Juan R Bey MD [address] [place] [address] [place] [id number] Referral ID Status Reason Start Date Expiration Date Visits Requested Visits Authorized [id number] Pending Review Auto-Generat ed Referral 2023 09/02/2024 1 1 [facility] Summary Purpose Family History No Family History [...] Response Recorded Date/ Time Advance Directives No August 12:49pm Chief Complaint KIM NICHOLS is being [...] and content) DATE CREATED AUTHOR 01/05/2022 [facility] DATE CREATED AUTHOR AUTHOR'S ORGANIZ ATION 07/28/2022 [facility] DATE CREATED AUTHOR AUTHOR'S ORGANIZ ATION 05/14/2023 [facility] DATE CREATED AUTHOR AUTHOR'S ORGANIZ ATION 05/14/2023 [facility] DATE CREATED AUTHOR AUTHOR'S ORGANIZ ATION 2023 [facility] DATE CREATED AUTHOR AUTHOR'S ORGANIZ ATION 08/05/2023 [facility] Care Teams (unrecognized sec tion and content) Team Status: Inactive Member Role Status Dates Avi Cervantes MD Primary Care Provider Active Bijan Betts Jr, DO Attending Provider Active Team Status: Active Member Role Status Dates Avi Cervantes MD Primary Care Provider Active Hydro Excavation Operator Relationship Specialty Start Date End Date Avi Cervantes MD [address] [place] [address] Referring Family Medicine 04/24/23 Hydro Excavation Operator Relationship Specialty Start Date End Date Avi Cervantes MD [address] [place] [address] Referring Family Medicine 04/24/23 Hydro Excavation Operator Relationship Specialty Start Date End Date Avi Cervantes MD [address] [place] [address] Referring Family Medicine 04/24/23 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 Excavation Operator Relationship Specialty Start Date End Date Avi Cervantes MD [address] [place] [facility] [address] PCP - General Family Medicine 06/25/23 Avi Cervantes MD [address] [place] [facility] [address] Referring Family Medicine 04/24/23 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 Excavation Operator Relationship Specialty Start Date End Date Avi Cervantes MD [address] [place] [facility] [address] PCP - General Family Medicine 06/25/23 Avi Cervantes MD [address] [place] [facility] [address] Referring Family Medicine 04/24/23 Hydro Excavation Operator Relationship Specialty Start Date End Date Avi Cervantes MD [address] [place] [facility] [address] PCP - General Family Medicine 06/25/23 Avi Cervantes MD [address] [place] [address] Referring Family Medicine 04/24/23 Goals (unrecognized section [...] or prosecute any alcohol or drug abuse patient.[facility] the event this information is protected by the Federal Confidentiality of Alcohol and Drug Abuse Patient Records regulations: The Federal rules restrict any use of the information to criminally investigate or prosecute any alcohol or drug abuse patient.[facility] the event this information is protected by the Federal Confidentiality of Alcohol and Drug Abuse Patient Records regulations: The Federal rules restrict any use of the information to criminally investigate or prosecute any alcohol or drug abuse patient.[facility] the event this information is protected by the Federal Confidentiality of Alcohol and Drug Abuse Patient Records regulations: The Federal rules restrict any use of the information to criminally investigate or prosecute any alcohol or drug abuse patient.[facility] the event this information is protected by the Federal Confidentiality of Alcohol and Drug Abuse Patient Records regulations: The Federal rules restrict any use of the information to criminally investigate or prosecute any alcohol or drug abuse patient.[facility] the event this information is protected by the Federal Confidentiality of Alcohol and Drug Abuse Patient Records regulations: The Federal rules restrict any use of the information to criminally investigate or prosecute any alcohol or drug abuse patient.[facility] Reason for Visit (unrecogniz ed section and [...] BE BASED ON THE PRIMARY CLINICAL RECORDS. [facility] [facility]. provides no warranty or guarantee of the accuracy or completeness of information in this document.
--- NOTE | 2024-04-27 06:47 | MR_ITS ---
[address] [address] Patient Name: KIM BOWEN MRN: [id number] date: 1960 Sex: M Assigned Patient Location: MRI Current Patient Location: Accession/Order Number: [id number] Exam Date: 04/27/2024 06:55 Report Date: 04/28/2024 08:42 At the request of: AVI YEPEZ Procedure: MR knee LT wo con EXAMINATION: MR knee LT wo con HISTORY: knee osteoarthritis M17.9 ; chronic knee pain COMPARISON: XR knee left 03/12/2024 TECHNIQUE: A complete multi-planar MRI was performed. FINDINGS: MEDIAL COMPARTMENT MEDIAL MENISCUS: No visible tear or significant degeneration. CARTILAGE: Marked thinning with focal areas of loss of cartilage overlying the weightbearing surface of the femoral condyle. BONES: Prominent marrow edema adjacent weightbearing surface of medial femoral condyle. . MCL AND MEDIAL CAPSULE: Grade I sprain of the medial collateral ligament. LATERAL COMPARTMENT LATERAL MENISCUS: No visible tear or significant degeneration. CARTILAGE: No visible defect. BONES: No marrow pathology, fracture, or significant arthropathy. LCL/POSTEROLAT COMPLEX: Normal lateral collateral ligament, fascicles, lateral capsule and ligaments. ANTERIOR COMPARTMENT PATELLA: No marrow pathology, fracture, or significant arthropathy. CARTILAGE: No visible defect. TENDONS: Normal. EFFUSION: Large joint effusion. ACL: Normal appearing ligament. PCL: Normal appearing ligament. MENISCOFEMORAL: Normal meniscofemoral ligaments. OTHER: Prominent Willis cyst. MR/MR knee LT wo con IMPRESSION: 1. Prominent bone bruising of medial femoral condyle with overlying cartilage thinning and focal areas of cartilage loss. 2. Mild strain of medial collateral ligament. 3. Large joint effusion. 4. Prominent Willis cyst. Electronically authenticated by: GARCIA VERMA Date: 04/28/2024 08:42
== END 2024-04-27 06:38 | disposition home or self-care (01) ==
LOC: MRI 06:38
PROVIDERS: PCP Family Medicine; Visit Provider Family Medicine
DX: M17.9 Osteoarthritis of knee, unspecified (principal); M25.462 Effusion, left knee; M71.22 Synovial cyst of popliteal space [Baker], left knee
CPT/HCPCS: 73721

== ENCOUNTER 2024-05-07 12:02 | Observation (INO) | payer OTHER, SELFPAY ==
[2024-05-07] VITALS (58 sets, daily range): BP systolic 90–144; BP diastolic 60–97; PULSE 56–155; TEMP 36.6; O2SAT 62–96; BMI 86.4; BMI 40.2
--- NOTE | 2024-05-07 12:19 | XR_ITS ---
The [address] [address] Patient Name: KIM BOWEN MRN: [id number] date: 1960 Sex: M Assigned Patient Location: ER Current Patient Location: ER Accession/Order Number: [id number] Exam Date: 05/07/2024 12:55 Report Date: 05/07/2024 13:27 At the request of: ASTRID LANDERS Procedure: XR chest 1V EXAMINATION: XR chest 1V HISTORY: chest discomfort COMPARISON: No relevant comparison available. TECHNIQUE: AP portable FINDINGS: LUNGS: No significant pulmonary parenchymal abnormalities. VASCULATURE: No increased pulmonary vasculature. PLEURA: No pneumothorax, effusion, or pleural thickening. CARDIAC: No cardiomegaly or cardiac silhouette abnormality. MEDIASTINUM: No visible mass or adenopathy. BONES: No fracture or visible bone lesion. OTHER: Negative. XR/XR chest 1V IMPRESSION: No acute cardiopulmonary process Electronically authenticated by: OSCAR FRANCO Date: 05/07/2024 13:27
--- NOTE | 2024-05-07 12:19 | ECG_ITS ---
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: : 1960 Requested By: VAI YEPEZ Order Number: [id number] Reading MD: AVI YEPEZ Measurements Intervals [place] Rate: 129 P: -03371 OR: -[id number] QRS: 8 QRSD: 78 T: -47 QT: 304 QTc: 380 Interpretive Statements 84721 Atrial fibrillation with rapid ventricular response [address] depression, probably digitalis effect 50436 Twave abnormality, possible lateral ischemia or digitalis effect 15710 Twave abnormality, possible inferior ischemia or digitalis effect 8102 Low QRS voltage in chest leads 9150 abnormal ECG No previous ECG available for comparison Electronically Signed On 05-08-2024 13:19:14 EDT by AVI YEPEZ
--- NOTE | 2024-05-07 12:21 | ED_ITS ---
HPI - Chest Pain General Chief Complaint: Chest Pain Stated Complaint: CHEST PAIN Time Seen by Provider: 05/07/24 12:19 Source: patient Mode of arrival: walk-in Limitations: no limitations History of Present Illness HPI narrative: The patient presented to us with a sense of discomfort in his chest that started this morning. He mentioned that he went to sleep with no complain, he never been diagnosed with A-fib and he mentioned that he had a cardiac cath 4 years ago during which she had a 20% blockage and he did not need to follow-up with cardiology after that The patient is not a smoker and denies any drug use No history of fever chills coughing or any difficulty breathing Related Data Allergies Allergy/AdvReac Type Severity Reaction Status Date / Time amoxicillin Allergy Intermediate Rash Verified 05/07/24 12:08 Review of Systems ROS Status of ROS 10 or more systems reviewed and unremark able except as noted in history and below Exam Narrative Exam Narrative: Nurses notes and vital signs reviewed and patient is not hypoxic. General: Well-appearing and in no apparent distress. Skin: Warm, dry, no pallor noted. No rash. Head: Normocephalic, atraumatic. Neck: Supple, non-tender. Eye: Pupils are equal, round and EOMI. No scleral icterus. Ears, Nose, Mouth, and Throat: TM are clear, no nasal mucosal hypertrophy. Oral mucosa is moist, no posterior oropharynx erythema, uvula is mid-line Cardiovascular: irregular Rate and Rhythm without murmur, gallop or rub. Respiratory: No accessory muscle use or respiratory distress. Lungs are clear to auscultation, no wheezing, rales or rhonchi Chest Wall: no tenderness Back: No midline thoracic or lumbar vertebral tenderness. No CVA tenderness Musculoskeletal: normal ROM, no calf or popliteal tenderness, no lower extremity edema/swelling GI: Abdomen is soft, non-distended. Normal bowel sounds. No masses appreciated. No tenderness to palpation. No rebound, guarding, or rigidity noted. Neurological: A&O x4. No cranial nerve dysfunction observed. No truncal ataxia. Moves all extremities. Sensation intact. Psychiatric: Cooperative and interactive. Normal mood and affect. Constitutional Vital Signs, click to edit/add: Last Vital Signs Temp 97.9 F 05/07/24 12:20 Pulse 68 05/07/24 14:50 Resp 17 05/07/24 14:50 BP 120/78 05/07/24 14:45 Pulse Ox 92 L 05/07/24 14:50 O2 Del Method Room Air 05/07/24 12:08 Course Vital Signs Vital signs: Vital Signs Pulse Rate 82 05/07/24 12:08 Respiratory Rate 18 05/07/24 12:08 Blood Pressure 130/97 H 05/07/24 12:08 Pulse Oximetry 92 L 05/07/24 12:08 Oxygen Delivery Method Room Air 05/07/24 12:08 Temperature 97.9 F 05/07/24 12:20 Pulse Rate 68 05/07/24 14:50 Respiratory Rate 17 05/07/24 14:50 Blood Pressure 120/78 05/07/24 14:45 Pulse Oximetry 92 L 05/07/24 14:50 Oxygen Delivery Method Room Air 05/07/24 12:08 MDM - Chest Pain MDM Narrative Medical decision making narrative: The patient EKG showing A-fib with a heart rate of 129 at least although it could be 146 according to the monitor There is no ST elevation or any concern for acute changes The patient after being provided with Lopressor 5 mg he is in sinus rhythm the EKG repeated shows a sinus rhythm with a heart rate of [address] elevation or depression Patient potassium 2.8 and he was provided with 20 milliequivalents of potassium Troponin as well as negative The patient had his chest x-ray showing no acute pathology Patient case was discussed with team ( fellow ) and right now the patient plan is to be started on Eliquis in addition to amiodarone 150 with no drip just a bolus and the patient to be admitted for further monitoring and correcting his potassium Patient case discussed with Dr. Cervantes and he agreed to admit the patient for observation Lab Data Labs: Lab Results 05/07/24 05/07/24 Range/Units 12:43 15:19 WBC 6.0 (4.0-11.0) 10^3/uL RBC 6.03 (4.70-6.10) 10^6/uL Hgb 17.4 (14.0-18.0) g/dL Hct 50.6 (42.0-54.0) % MCV 83.9 (80.0-94.0) fL MCH 28.9 (25.9-34.0) pg MCHC 34.4 (29.9-35.2) g/dL RDW 13.4 (11.0-15.0) % Plt Count 191 (150-450) 10^3/uL MPV 10.8 (9.5-13.5) fL Neut % (Auto) 58.7 (43.0-75.0) % Lymph % (Auto) 24.8 (20.5-60.0) % [place] % (Auto) 11.8 (1.7-12.0) % Eos % (Auto) 3.8 (0.9-7.0) % Baso % (Auto) 0.7 (0.2-2.0) % Neut # (Auto) 3.5 (1.4-6.5) 10^3/uL Lymph # (Auto) 1.5 (1.2-3.8) 10^3/uL [place] # (Auto) 0.7 (0.3-0.8) 10^3/uL Eos # (Auto) 0.2 (0.0-0.7) 10^3/uL Baso # (Auto) 0.0 (0.0-0.1) 10^3/uL Abs Immat Gran (auto) 0.01 (0.00-0.03) 10^3/uL Imm/Tot Granulo (auto) 0.2 (0.0-0.5) % Sodium 139 (136-145) mmol/L Potassium 2.8 L* (3.5-5.1) mmol/L Chloride 98 (98-107) mmol/L Carbon Dioxide 28.1 (21.0-32.0) mmol/L Anion Gap 15.7 BUN 20.0 H (7.0-18.0) mg/dL Creatinine 1.10 (0.70-1.30) mg/dL Est GFR ( Amer) >60 (>=60) Est GFR (Non-Af Amer) >60 (>=60) BUN/Creatinine Ratio 18.2 Glucose 95 (74-106) mg/dL Calcium 9.5 (8.5-10.1) mg/dL Magnesium 1.9 (1.8-2.4) mg/dL Total Bilirubin 0.7 (0.2-1.0) mg/dL AST 32 (15-37) U/L ALT 47 (16-63) U/L Alkaline Phosphatase 61 (46-116) U/L Troponin I High Sens 42.5 50.0 (4.0-76.1) pg/mL Total Protein 7.4 (6.4-8.2) g/dL Albumin 3.5 (3.4-5.0) g/dL Globulin 3.9 g/dL Albumin/Globulin Ratio 0.9 Ethanol Quant <3 mg/dL Discharge Plan Discharge Chief Complaint: Chest Pain Clinical Impression: New onset a-fib, Hypokalemia Patient Disposition: Admitted as Observation Time of Disposition Decision: 15:10
[2024-05-07] MEDS: METOPROLOL TARTRATE 5 MG/5 ML VIAL IVP (12:33)
[2024-05-07] MEDS: 0.9 % SODIUM CHLORIDE 1,000 ML 500 ML IV (12:33)
[2024-05-07 12:53] LABS: Basophils Percent Auto 0.7 % (0.2-2.0); Eosinophils Absolute Auto 0.2 10^3/uL (0.0-0.7); Eosinophils Percent Auto 3.8 % (0.9-7.0); Hematocrit 50.6 % (42.0-54.0); Hemoglobin 17.4 g/dL (14.0-18.0); Immature Granulocytes Abs Auto 0.01 10^3/uL (0.00-0.03); Immature Granulocytes Pct Auto 0.2 % (0.0-0.5); Lymphocytes Absolute Auto 1.5 10^3/uL (1.2-3.8); Lymphocytes Percent Auto 24.8 % (20.5-60.0); Mean Corpuscular HGB Conc 34.4 g/dL (29.9-35.2); Mean Corpuscular Hemoglobin 28.9 pg (25.9-34.0); Mean Corpuscular Volume 83.9 fL (80.0-94.0); Mean Platelet Volume 10.8 fL (9.5-13.5); Monocytes Absolute Auto 0.7 10^3/uL (0.3-0.8); Monocytes Percent Auto 11.8 % (1.7-12.0); Neutrophils Absolute Auto 3.5 10^3/uL (1.4-6.5); Neutrophils Percent Auto 58.7 % (43.0-75.0); Platelet Count 191 10^3/uL (150-450); Red Blood Count 6.03 10^6/uL (4.70-6.10); Red Cell Distribution Width 13.4 % (11.0-15.0)
[2024-05-07 13:08] LABS: Magnesium 1.9 mg/dL (1.8-2.4)
[2024-05-07 13:16] LABS: Alanine Aminotransferase 47 U/L (16-63); Albumin Globulin Ratio 0.9; Albumin Level 3.5 g/dL (3.4-5.0); Alkaline Phosphatase 61 U/L (46-116); Anion Gap 15.7; Aspartate Amino Transferase 32 U/L (15-37); BUN Creatinine Ratio 18.2; Bilirubin Total 0.7 mg/dL (0.2-1.0); Calcium 9.5 mg/dL (8.5-10.1); Carbon Dioxide 28.1 mmol/L (21.0-32.0); Chloride 98 mmol/L (98-107); Estimated GFR (African America >60 (>=60); Estimated GFR (Non-African Ame >60 (>=60); Globulin 3.9 g/dL; Glucose 95 mg/dL (74-106); Sodium 139 mmol/L (136-145); Total Protein 7.4 g/dL (6.4-8.2); Troponin I High Sensitivity 42.5 pg/mL (4.0-76.1)
[2024-05-07 13:30] LABS: Ethanol <3 mg/dL
[2024-05-07 13:33] LABS: Potassium 2.8 mmol/L (3.5-5.1)
[2024-05-07] MEDS: POTASSIUM CHLORIDE IN WATER 10 MEQ/100 ML PIGGYBACK 100 MEQ IV (14:25)
--- NOTE | 2024-05-07 14:47 | ECG_ITS ---
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
[2024-05-07] MEDS: AMIODARONE IN DEXTROSE,ISO-OSM 150 MG/100 ML PIGGYBACK 600 MG IV (15:51)
[2024-05-07] MEDS: APIXABAN 5 MG TABLET PO ×2 (15:51→21:48)
--- NOTE | 2024-05-07 16:29 | P.HP_ITS ---
HPI H&P: HPI History of Present Illness Chief complaint: CHEST PAIN Narrative: Patient is a acute onset of chest pain, pressure type, palpitations. Presented to the emergency room found to be in atrial fibrillation with rapid ventricular response. Treated with amiodarone and metoprolol, rate improved and converted back to normal sinus rhythm. With the chest pain part he will be admitted overnight observation. When I saw the patient in the emergency room, he was resting comfortably in bed, denies any chest pain or shortness of breath. Feels much improved. Denies any prodromal symptoms no recent palpitations or shortness of breath. No other history of atrial fibrillation in the past. Has been dieting differently lately but for him to eat is more of a starvation type diet. No decongestants, actually decreasing caffeine Opioid HPI Opioid Management Most Recent Pain and Opioid Data: No Data to Display Review of Systems ROS Status of ROS 10 or more systems reviewed and unremark able except as noted in history and below Meds Home Medications and Allergies Allergies Allergy/AdvReac Type Severity Reaction Status Date / Time amoxicillin Allergy Intermediate Rash Verified 05/07/24 12:08 Exam Constitutional Vital Signs, click to edit/add: Last Vital Signs Temp 97.9 F 05/07/24 12:20 Pulse 68 05/07/24 14:50 Resp 17 05/07/24 14:50 BP 120/78 05/07/24 14:45 Pulse Ox 92 L 05/07/24 14:50 O2 Del Method Room Air 05/07/24 12:08 Documenting provider has reviewed patient's vital signs: yes Common normals: no apparent distress Respiratory Common normals: normal respiratory effort Cardio Common normals: regular rate, regular rhythm and no murmurs GI Common normals: Normal to inspection, nondistended, normoactive bowel sounds present and soft to palpation Extremity Common normals: normal to inspection Neuro Common normals: oriented x3, CN's II-XII intact bilaterally and moves all extremities Results Labs Labs: Short CBC 05/07/24 Range/Units 12:43 WBC 6.0 (4.0-11.0) 10^3/uL Hgb 17.4 (14.0-18.0) g/dL Hct 50.6 (42.0-54.0) % Plt Count 191 (150-450) 10^3/uL BMP 05/07/24 12:43 Sodium 139 Potassium 2.8 L* Chloride 98 Carbon Dioxide 28.1 BUN 20.0 H Creatinine 1.10 Glucose 95 Calcium 9.5 Liver Function 05/07/24 Range/Units 12:43 Total Bilirubin 0.7 (0.2-1.0) mg/dL AST 32 (15-37) U/L ALT 47 (16-63) U/L Alkaline Phosphatase 61 (46-116) U/L Albumin 3.5 (3.4-5.0) g/dL Assessment and Plan Assessment and Plan (1) Hypokalemia: (2) New onset a-fib: Plan Admission findings: Tachycardia, chest pain, shortness of breath, palpitations labs showing hypokalemia resulting in the new onset atrial fibrillation with rapid ventricular response. Treated with amiodarone and metoprolol. Converted back to normal sinus rhythm. Placed patient on metoprolol. Check cardiac markers secondary to the chest pain part. Repeat labs in AM. Stable overnight, patient will be started on Eliquis tonight, will be discharged home in improving condition. Medications see list. Admission status: Patient with new onset atrial fibrillation with rapid ventricular response. Converted in ER, start patient on metoprolol and Eliquis, likely discharge to home in a.m., medically necessary treatment likely only to span 1 midnight, observation status.
[2024-05-07 17:21] LABS: Basophils Percent Auto 0.5 % (0.2-2.0); Eosinophils Absolute Auto 0.2 10^3/uL (0.0-0.7); Eosinophils Percent Auto 3.4 % (0.9-7.0); Hematocrit 49.4 % (42.0-54.0); Hemoglobin 16.6 g/dL (14.0-18.0); Immature Granulocytes Abs Auto 0.02 10^3/uL (0.00-0.03); Immature Granulocytes Pct Auto 0.3 % (0.0-0.5); Lymphocytes Absolute Auto 1.5 10^3/uL (1.2-3.8); Lymphocytes Percent Auto 23.8 % (20.5-60.0); Mean Corpuscular HGB Conc 33.6 g/dL (29.9-35.2); Mean Corpuscular Hemoglobin 28.6 pg (25.9-34.0); Mean Corpuscular Volume 85.2 fL (80.0-94.0); Mean Platelet Volume 11.1 fL (9.5-13.5); Monocytes Absolute Auto 0.7 10^3/uL (0.3-0.8); Monocytes Percent Auto 11.5 % (1.7-12.0); Neutrophils Absolute Auto 3.9 10^3/uL (1.4-6.5); Neutrophils Percent Auto 60.5 % (43.0-75.0); Platelet Count 221 10^3/uL (150-450); Red Cell Distribution Width 13.4 % (11.0-15.0); White Blood Count 6.5 10^3/uL (4.0-11.0)
[2024-05-07 17:46] LABS: Alanine Aminotransferase 50 U/L (16-63); Albumin Level 3.4 g/dL (3.4-5.0); Alkaline Phosphatase 55 U/L (46-116); Anion Gap 9.2; Aspartate Amino Transferase 34 U/L (15-37); BUN Creatinine Ratio 15.9; Bilirubin Total 0.7 mg/dL (0.2-1.0); Calcium 9.2 mg/dL (8.5-10.1); Carbon Dioxide 33.8 mmol/L (21.0-32.0); Chloride 100 mmol/L (98-107); Estimated GFR (African America >60 (>=60); Estimated GFR (Non-African Ame >60 (>=60); Globulin 3.5 g/dL; Glucose 92 mg/dL (74-106); Sodium 140 mmol/L (136-145); Total Protein 6.9 g/dL (6.4-8.2); Troponin I High Sensitivity 54.9 pg/mL (4.0-76.1)
[2024-05-07 17:52] LABS: Thyroid Stimulating Hormone 1.055 uIU/mL (0.358-3.740)
[2024-05-07 19:55] LABS: Troponin I High Sensitivity 57.1 pg/mL (4.0-76.1)
[2024-05-07] MEDS: 0.9 % SODIUM CHLORIDE 250 ML 50 ML IV (21:47)
[2024-05-07] MEDS: POTASSIUM CHLORIDE 40 MEQ in 0.9 % SODIUM CHLORIDE 250 ML 67.5 MEQ IV (21:47)
[2024-05-07] MEDS: METOPROLOL TARTRATE 25 MG TABLET PO (21:48)
[2024-05-07] MEDS: GABAPENTIN 300 MG CAPSULE 600 MG PO (21:48)
[2024-05-07] MEDS: ATORVASTATIN CALCIUM 40 MG TABLET PO (21:48)
[2024-05-08] VITALS (11 sets, daily range): BP systolic 121–128; BP diastolic 65–87; PULSE 59–82; TEMP 36.3–36.4; O2SAT 92–96
[2024-05-08 06:09] LABS: Troponin I High Sensitivity 54.7 pg/mL (4.0-76.1)
[2024-05-08] MEDS: OMEPRAZOLE 40 MG CAPSULE.DR PO (06:17)
[2024-05-08 08:18] LABS: Anion Gap 14.4; BUN Creatinine Ratio 14.6; Calcium 9.2 mg/dL (8.5-10.1); Carbon Dioxide 29.5 mmol/L (21.0-32.0); Chloride 100 mmol/L (98-107); Estimated GFR (African America >60 (>=60); Estimated GFR (Non-African Ame >60 (>=60); Glucose 82 mg/dL (74-106); Sodium 141 mmol/L (136-145)
[2024-05-08 08:26] LABS: Potassium 2.9 mmol/L (3.5-5.1)
[2024-05-08] MEDS: POTASSIUM CHLORIDE 10 MEQ ER TABLET 20 MEQ PO (09:28)
[2024-05-08] MEDS: CHLORTHALIDONE 25 MG TABLET PO (09:29)
[2024-05-08] MEDS: APIXABAN 5 MG TABLET PO (09:29)
[2024-05-08] MEDS: METOPROLOL TARTRATE 25 MG TABLET PO (09:29)
[2024-05-08] MEDS: POTASSIUM CHLORIDE 40 MEQ in 0.9 % SODIUM CHLORIDE 250 ML 67.5 MEQ IV (09:29)
[2024-05-08] MEDS: GABAPENTIN 300 MG CAPSULE 600 MG PO (09:29)
--- NOTE | 2024-05-08 10:29 | PM.DS1 ---
DS: Providers Provider Date of admission: 05/07/24 18:02 Primary care physician: Jason Cervantes MD Consults: 05/07/24 16:18 Consult to Pharmacy Routine Consulting Provider: Reason for consultation: Please [place] me when Med Rec is Updated Has provider been notified: No DS: Diagnosis Discharge Diagnosis (1) Hypokalemia: (2) New onset a-fib: Plan Admission findings: Tachycardia, chest pain, shortness of breath, palpitations labs showing hypokalemia resulting in the new onset atrial fibrillation with rapid ventricular response. Proving at the time of discharge Admission status: Patient with new onset atrial fibrillation with rapid ventricular response. Converted in ER, start patient on metoprolol and Eliquis, likely discharge to home in a.m., medically necessary treatment likely only to span 1 midnight, observation status. ? DS: Summary Hospital Course Hospital Course: While I was seeing his in the office, she received a text message from her son indicating that he was having chest pain. I recommended he go to the emergency room. In the emergency room he was found to have atrial fibrillation with rapid ventricular response and significant hypokalemia. The potassium was treated in the emergency room, given amiodarone for the atrial fibrillation and patient converted into the normal sinus rhythm. With his chest pain he was observed overnight. His high-sensitivity troponins have been negative. Only other issue is his hypokalemia. He will receive infusion of potassium IV this morning. He is no longer having any chest pain. He feels back to his baseline. So we will discharge patient to home in improved condition. Medications see list. Follow-up with me in the office in 2 days. Status at Discharge Overall status at discharge: patient is back to baseline Time Spent with Patient Time attestation: Total time spent providing and/or coordinating discharge services: Time spent: greater than 30 minutes Exam Constitutional Vital Signs, click to edit/add: Last Vital Signs Temp 97.6 F 05/08/24 08:14 Pulse 68 05/08/24 08:14 Resp 12 05/08/24 08:14 BP 128/87 05/08/24 08:14 Pulse Ox 96 05/08/24 08:14 O2 Del Method Room Air 05/08/24 08:14 Documenting provider has reviewed patient's vital signs: yes Common normals: no apparent distress Respiratory Common normals: normal respiratory effort Cardio Common normals: regular rate, regular rhythm and no murmurs GI Common normals: Normal to inspection, nondistended, normoactive bowel sounds present and soft to palpation Extremity Common normals: normal to inspection Neuro Common normals: oriented x3, CN's II-XII intact bilaterally and moves all extremities DS: Data Data Completed and Pending Labs on day of discharge: Labs from last 24 hours 05/08/24 05/07/24 05/07/24 05:13 19:20 16:45 WBC 6.5 RBC 5.80 Hgb 16.6 Hct 49.4 MCV 85.2 MCH 28.6 MCHC 33.6 RDW 13.4 Plt Count 221 MPV 11.1 Neut % (Auto) 60.5 Lymph % (Auto) 23.8 [place] % (Auto) 11.5 Eos % (Auto) 3.4 Baso % (Auto) 0.5 Neut # (Auto) 3.9 Lymph # (Auto) 1.5 [place] # (Auto) 0.7 Eos # (Auto) 0.2 Baso # (Auto) 0.0 Abs Immat Gran (auto) 0.02 Imm/Tot Granulo (auto) 0.3 Sodium 141 140 Potassium 2.9 L* 3.0 L Chloride 100 100 Carbon Dioxide 29.5 33.8 H Anion Gap 14.4 9.2 BUN 15.0 18.0 Creatinine 1.03 1.13 Est GFR ( Amer) >60 >60 Est GFR (Non-Af Amer) >60 >60 BUN/Creatinine Ratio 14.6 15.9 Glucose 82 92 Calcium 9.2 9.2 Magnesium Total Bilirubin 0.7 AST 34 ALT 50 Alkaline Phosphatase 55 Troponin I High Sens 54.7 57.1 54.9 NT-Pro-B Natriuret Pep 92.0 Total Protein 6.9 Albumin 3.4 Globulin 3.5 Albumin/Globulin Ratio 1.0 TSH 1.055 Thyroxine (T4) 9.00 Ethanol Quant 05/07/24 05/07/24 15:19 12:43 WBC 6.0 RBC 6.03 Hgb 17.4 Hct 50.6 MCV 83.9 MCH 28.9 MCHC 34.4 RDW 13.4 Plt Count 191 MPV 10.8 Neut % (Auto) 58.7 Lymph % (Auto) 24.8 [place] % (Auto) 11.8 Eos % (Auto) 3.8 Baso % (Auto) 0.7 Neut # (Auto) 3.5 Lymph # (Auto) 1.5 [place] # (Auto) 0.7 Eos # (Auto) 0.2 Baso # (Auto) 0.0 Abs Immat Gran (auto) 0.01 Imm/Tot Granulo (auto) 0.2 Sodium 139 Potassium 2.8 L* Chloride 98 Carbon Dioxide 28.1 Anion Gap 15.7 BUN 20.0 H Creatinine 1.10 Est GFR ( Amer) >60 Est GFR (Non-Af Amer) >60 BUN/Creatinine Ratio 18.2 Glucose 95 Calcium 9.5 Magnesium 1.9 Total Bilirubin 0.7 AST 32 ALT 47 Alkaline Phosphatase 61 Troponin I High Sens 50.0 42.5 NT-Pro-B Natriuret Pep Total Protein 7.4 Albumin 3.5 Globulin 3.9 Albumin/Globulin Ratio 0.9 TSH Thyroxine (T4) Ethanol Quant <3 Discharge Plan Discharge Disposition: Home, Self-Care Discharge Medications: New potassium chloride 20 mEq tablet extended release 20 meq PO BID Qty: 60 11RF metoprolol tartrate 25 mg Tablet 25 mg PO BID Qty: 60 11RF Eliquis 5 mg Tablet 5 mg PO BID Qty: 60 11RF Continued chlorthalidone 25 mg tablet 25 mg PO QAM gabapentin 300 mg capsule 300 mg PO .Q1400 omeprazole 40 mg capsule,delayed release(DR/EC) 40 mg PO .ACB rosuvastatin 20 mg tablet 20 mg PO .QHS aspirin 81 mg capsule 81 mg PO DAILY gabapentin 600 mg tablet 600 mg PO BID Print Language: Turkmen Forms: Portal Instructions
--- NOTE | 2024-05-10 13:28 | CM.DCFOLLOWU ---
Person spoke with: contacted How are you feeling? well How is your pain? none Did you understand your discharge instructions? yes Do you have any questions about your discharge instructions? no Were you given any prescriptions at discharge? yes Were you able to get your prescriptions filled? yes Do you understand how to take your medications as ordered? yes Do you have any questions about your follow up appointment and do you plan to keep your follow up appointment? no questions, follow up tomorrow with PCP, meeting with a medical artist for heart healthy diet and eventually pediatric psychologist Is there anything else that you would like to discuss? no Questions/Comments/Concerns/Other: no
== END 2024-05-08 14:51 | disposition home or self-care (01) ==
LOC: ER 15:19 → MS 18:13
PROVIDERS: Admitting Provider Family Medicine; Emergency Provider Emergency Medicine; PCP Family Medicine; Visit Provider Family Medicine
DX: I48.91 Unspecified atrial fibrillation (principal); E87.6 Hypokalemia; R07.9 Chest pain, unspecified; R00.0 Tachycardia, unspecified; R06.02 Shortness of breath
CPT/HCPCS: 36415; 71045; 80048; 80053; 80320; 83735; 83880; 84436; 84443; 84484; 85025; 93005; 94761; 96365; 96366; 96368; 96375; 99285; G0378; J0283; J3480

== ENCOUNTER 2024-05-25 06:35 | Outpatient (OUT) | payer OTHER, SELFPAY ==
--- NOTE | 2024-05-25 06:20 | NM_ITS ---
Patient Name: KIM BOWEN MR#: [id number] : 1960 Exam Date: 05/25/2024 Ordering Doctor: DR Jason Cervantes . RADIOLOGY REPORT PROCEDURE: NM JUDY PERF SPECT REST STR COMPARISON: None. INDICATIONS: ATRIAL FIBRILLATION, CHEST PAIN TECHNIQUE: Exam Description: Stress/Rest two day protocol gated SPECT Rest Imagin.2 mCi Tc-99m Cardiolite IV on 05/25/2024 Stress Imaging 26.2 mCi Tc-99m Cardiolite IV on 05/26/2024 Exercise Protocol: 0.4 mg Lexiscan given IV Heart Rate (bpm): Rest: 68 Max: 93 PMHR: 58 Blood Pressure: Rest: 132/88 Max: 132/88 Symptoms: Rest and peak stress ECG findings were pending and the exercise portion of the study was pending per attending physician Dr. Melara . For more details please see separate cardiac stress test report. FINDINGS: QUALITY OF STUDY: Good. PERFUSION DEFECT: LOCATION: Basal inferior. Mid-inferior. [place]. SIZE: Medium (3-4 segments). SEVERITY: Moderate. TYPE: Persistent. WALL MOTION: Normal. LV SIZE: Normal. 81 mL. TID / TCD: None; 0.9 LVEF: Normal. Calculated EF 59%. SUMMARY: Myocardial perfusion imaging study has ABNORMAL findings. CONCLUSION: 1. Fixed defect inferior wall and apex, primarily RCA distribution 2. No reversible ischemia 3. Pending exercise test results Dictated by: Stefano Pearson MD on 05/26/2024 at 14:59 Approved by: Stefano Pearson MD on 05/26/2024 at 15:00
--- OUTSIDE RECORDS SUMMARY | 2024-05-25 06:37 | XMS_ITS | CCD ---
Author Organization [facility] Care Team Providers Care Fish Cake Maker Name Role Phone Unavailable Unavailable DR AVI CERVANTES Attending Unavailable MARLENI, DR CÁRDENAS Admitting Unavailable MARLENI, DR CÁRDENAS Attending Unavailable DR AVI CERVANTES Admitting Unavailable DR AVI CERVANTES Consulting Unavailable WEST, DR OSCAR Ingram Consulting Unavailable Avi Cervantes Unavailable MD Avi Cervantes Primary Care Provider [phone] DO Bijan Betts Jr Attending Provider [phone] Bijan Betts Jr Attending Unavailable Bijan Betts Jr Admitting Unavailable Avi Cervantes Primary Care Unavailable Leslie DAVALOS, Dr. Reilly Hernandez Referring Unavailable Leslie DAVALOS, Dr. Reilly Hernandez Attending Unavailable Dr. Avi Cervantes Primary Care Unavail able Avi Cervantes MD Unavailable Avi Cervantes MD Primary Care Provider DARREN HARRIS Attending Unavailable AVI CERVANTES Primary Care Unavailable DARREN HARRIS Attending Unavailable JESSICA CAMP Admitting Unavailable JESSICA CAMP Attending Unavailable JESSICA CAMP Referring Unavailable JUAN R BEY Attending Unavailable AVI CERVANTES Primary Care Unavailable Allergies Allergy Classification Reported Allergen(s) Allergy Type Date of Onset Reaction(s) Facility (13 sources) Amoxicillin; Translations: [amoxicillin] Drug Allergy 09-26-2020 Judith Beck [facility] (1 source) Amoxicillin Drug Allergy [facility] (1 source) traMADol Drug Allergy [facility] (1 source) Amoxicillin Drug Allergy 09-26-2020 [facility] Medications Current Medications Medication Drug Class(es) [...] P O Q6H September 26, 2020 1:00am Ardsley 5-325 MG T ABS TAKE 1 TABLET [...] [Coronary atherosclerosis of unspecified type of vessel, campo or graft] Chronic Diabetes mellitus without complication [...] Range Facility OV 2023 CNOV Office Visit (SPSLUH ) KIM NICHOLS ([id number]) 1960 M Date Time Provider Department 08/04/23 8:00 AM JUAN R BEY [facility] During your visit today, we recorded the [...] opioids Medications: See medication reconciliation list in [facility] MEDICATIONS: Gabapentin, Ardsley, Tylenol Have you ever seen a pain [...] issues. 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 [facility] 07-08-2023 [facility] Telephone (SPNMMN) KIM NICHOLS ([id number]) 1960 M Date Time Provider Department 07/08/23 JESSICA CAMP [facility] During your visit today, we recorded the following information about you: Stacy Gallagher RN 07/08/2023 12:56 PM Signed Post Spine Injection phone call: [phone] on 07/08/23 Patient denies fever, chills, new [...] appointment 2-4 weeks post procedure by calling [phone] Patient does not have any questions or [...] Status:Closed by STACY GALLAGHER on 07/08/23 [facility] HISTORY PHYSICALon HISTORY PHYSICAL HNO ID: [id number] Author: Sherice Galvin APRN.CHILD CARE CENTER ASSISTANT DIRECTOR Service: ? Author Type: Nurse Practitioner Type: [...] July 01, 2023 TIME: 9:04 AM [facility] OPERATIVE NOon 07-01-2023 OPERATIVE NO HNO ID: [id number] Author: Jessica Camp DO Service: Physical Medicine AND Rehabilitation Author Type: Physician Type: Operative Report Filed: 07/01/2023 9:40 AM Note Text: PROCEDURE REPORT Surgery/Procedure Date: July 01, 2023 Interventionalist: Jessica Camp DO Procedure(s): Left L5 transforaminal epidural steroid injection Pre-Op/Pre-Procedure Diagnosis: Lumbar radiculopathy Post-Op Diagnosis: same SUBJECTIVE: Kim Nichols is a 62 year old male, who presents to the [facility] for a left L5 transforaminal epidural steroid injection. This is his first (1) procedure. 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 Pain is central [...] to be discharged home in stable condition. [facility] Camp [facility] KIM NICHOLS ([id number]) 1960 M Date Time Provider Department 06/26/[address] [facility] During your visit today, we recorded the following information about you: Oscar Rollins LPN 06/26/2023 9:20 AM Signed Phoned patient and message left for Kim to confirm appointment for Kim Sureshjamal for spine procedure on 07/01/2023. Patient notified that [facility] will call patient the night before with the time to arrive for injection. Patient verbalized understanding of the following: -Provided education on spine procedure and answered questions related to spine injection procedure. -Welt Rander is needed to drive patient home. -NPO [...] to report. Diabetic: No Patient given number [phone], spine injections schedulers, if there is any [...] Encounter Status:Closed by OSCAR ROLLINS on 06/26/23 [facility] [place] 06-02-2023 CNOV Office Visit (SPNSMN ) KIM NICHOLS ([id number]) 1960 M Date Time Provider Department 06/02/23 1:40 PM DARREN HARRIS During your visit today, we recorded the [...] with him pain. He also is prescribed Ardsley for breakthrough pain which he only takes [...] well de (more content not included)... [facility] Office Visit (Cardiology)on 05-13-2023 Follow-up visit Diagnoses/Problems Assessed Coronary disease (414.00) (I25.10) Essential hypertension, benign (401.1) (I10) Hyperlipidemia (272.4) (E78.5) Class 2 obesity with body mass index (BMI) of 36.0 to 36.9 in adult (278.00,V85.36) (E66.9,Z68.36) Never a smoker Orders Class 2 obesity with body mass index (BMI) of 36.0 to 36.9 in adult Healthy Weight Tips; Status:Complete - Retrospective Authorization; Done: [id number] Some eating tips that can help you lose weight.; Status:Complete - Retrospective Authorization; Done: [id number] Coronary disease, Hyperlipidemia Renew: Aspirin EC Low Dose 81 MG Oral Tablet Delayed Release; TAKE 1 TABLET DAILY DIRECTED Hyperlipidemia Renew: Rosuvastatin Calcium 20 MG Oral Tablet; take 1 tablet by mouth at bedtime SocHx: Never a smoker Tobacco Use Screening; Status:Complete; Done: [id number] Patient Instructions Please bring all medicines, vitamins, [...] MG Oral CapsuleTAKE 1 CAPSULE TWICE DAILY. Ardsley 5-325 MG TABSTAKE 1 TABLET EVERY 4 [...] negative for complaint. Vitals Vital Signs Recorded: [id number] 11:22AM Heart Rate64, R Radial Xriszjbh007, RUE, Sitting Odhikoxuf76, RUE, Sitting Height6 ft Pfcjxv935 lb BMI Yfawehjfbd88.21 kg/m2 BSA Calculated2.41 Tobacco Useb) No PHQ-2 [...] Screening.on 023 Adult depression screening assessment No [facility] 250 DO Work Phone: Tobacco use status CPHS b) No [facility] 250 DO Work Phone: XR knee LT 4V*on 07-17-2022 XR knee LT 4V* [facility] [place] [address] [place] [address] XRay Report Signed Patient: Kim Nichols MR#: [id number] : 1960 Acct:[id number] Age/Sex: 61 / M ADM Date: 07/17/22 Loc: [place] Room: Type: [facility] Attending Dr: Bijan Betts Jr, DO Copies [...] Stacy Ellis M.D.07/17/2022 1:18 PM Dictation Location: [place] [address] Transcribed By: [facility] 07/17/22 1318 Dictated By: Stacy Ellis MD 07/17/22 1315 Signed By: 07/17/22 1318 [facility] Tobacco Screening.on 022 Adult depression screening assessment No [facility] 250 DO Work Phone: Fall risk assessment c) Not medically indicated [facility] 250 DO Work Phone: Tobacco use status CPHS b) No [facility] 250 DO Work Phone: H PYLORI ANTIBODY IGGon 11-28 H. PYLORI IGG ABS 0.45 Index Value Normal 0.00-0.79 [facility] Comment on above: Result Comment: Nega tive <0.80 Equivocal 0.80 - 0.89 Positive >0.89 Performed By: #### L IPID, TSH, T7, URIC, CMP #### [facility] [address] [address] [address] Conor Chan INSULINon 12-21-2021 Insulin 55.2 uIU/mL Critically high 2.6-24.9 [facility] Comment on above: Performed By: #### I NSULIN #### [facility] [address] [address] [address] Conor Chan TESTOSTERONE, TOTALon 2021 Testosterone [Mass/Vol] 380 ng/dL Normal 264-916 [facility] Comment on above: Result Comment: Adul t male reference interval is based on a population of healthy nonobese males (BMI <30) between 19 and 39 years old. Travon, et.al. JCEM 2017,102;7843-2253. PMID: [id number]. Performed By: #### L IPID, TSH, T7, URIC, CMP #### [facility] [address] [place] [address] Dr. Conor Chan CBC AUTO DIFFon 12-20-2021 BASO # 0.0 103/ul Normal 0.0-0.1 [facility] Comment on above: Performed By: #### C BC #### [facility] [address] [place] [address] Dr. Conor Chan Basophils/100 WBC (Bld) 0.5 % Normal 0.2-2.0 [facility] Comment on above: Performed By: #### C BC #### [facility] [address] [place] [address] Dr. Conor Chan EO # 0.2 103/ul Normal 0.0-0.7 [facility] Comment on above: Performed By: #### C BC #### [facility] [address] [place] [address] Dr. Conor Chan Eosinophils/100 WBC (Bld) 3.5 % Normal 0.9-7.0 [facility] Comment on above: Performed By: #### C BC #### [facility] [address] [place] [address] Dr. Conor Chan Erythrocyte distribution width (RBC) [Ratio] 13.8 % Normal 11.0-15.0 [facility] Comment on above: Performed By: #### C BC #### [facility] [address] [place] [address] Dr. Conor Chan Hematocrit (Bld) [Volume fraction] 48.5 % Normal 42.0-54.0 [facility] Comment on above: Performed By: #### C BC #### [facility] [address] [place] [address] Dr. Conor Chan Hemoglobin (Bld) [Mass/Vol] 16.3 g/dL Normal 14.0-18.0 [facility] Comment on above: Performed By: #### C BC #### [facility] [address] [place] [address] Dr. Conor Chan IG # 0.02 10e3/ul Normal 0.00-0.03 [facility] Comment on above: Performed By: #### C BC #### [facility] [address] [place] [address] Dr. Conor Chan IG % 0.3 % Normal 0.0-0.5 [facility] Comment on above: Performed By: #### C BC #### [facility] [address] [place] [address] Dr. Conor Chan LYMPH # 1.4 103/ul Normal 1.2-3.8 [facility] Comment on above: Performed By: #### C BC #### [facility] [address] [address] [address] Conor Chan Lymphocytes/100 WBC (Bld) 21.7 % Normal 20.5-60.0 [facility] Comment on above: Performed By: #### C BC #### [facility] [address] [place] [address] Dr. Conor Chan MANUAL DIFF REQ NO Normal [facility] Comment on above: Performed By: #### C BC #### [facility] [address] [place] [address] Dr. Conor Chan MCH (RBC) [Entitic mass] 28.5 pg Normal 25.9-34.0 [facility] Comment on above: Performed By: #### C BC #### [facility] [address] [place] [address] Dr. Conor Chan MCHC (RBC) [Mass/Vol] 33.6 g/dL Normal 29.9-35.2 [facility] Comment on above: Performed By: #### C BC #### [facility] [address] [place] [address] Dr. Conor Chan MCV (RBC) [Entitic vol] 84.9 fL Normal 80.0-94.0 [facility] Comment on above: Performed By: #### C BC #### [facility] [address] [place] [address] Dr. Conor Chan MONO # 0.6 103/ul Normal 0.3-0.8 [facility] Comment on above: Performed By: #### C BC #### [facility] [address] [place] [address] Dr. Conor Chan Monocytes/100 WBC (Bld) 9.3 % Normal 1.7-12.0 [facility] Comment on above: Performed By: #### C BC #### [facility] [address] [address] [address] Conor Chan NEUT # 4.1 103/ul Normal 1.4-6.5 [facility] Comment on above: Performed By: #### C BC #### [facility] [address] [place] [address] Dr. Conor Chan Neutrophils/100 WBC (Bld) 64.7 % Normal 43.0-75.0 [facility] Comment on above: Performed By: #### C BC #### [facility] [address] [place] [address] Dr. Conor Chan Platelet mean volume (Bld) [Entitic vol] 9.8 fL Normal 9.5-13.5 [facility] Comment on above: Performed By: #### C BC #### [facility] [address] [place] [address] Dr. Conor Chan PLT 235 103/ul Normal 150-450 [facility] Comment on above: Performed By: #### C BC #### [facility] [address] [place] [address] Dr. Conor Chan RBC 5.71 106/ul Normal 4.70-6.10 [facility] Comment on above: Performed By: #### C BC #### [facility] [address] [place] [address] Dr. Conor Chan WBC 6.4 103/ul Normal 4.0-11.0 [facility] Comment on above: Performed By: #### C BC #### [facility] [address] [place] [address] Dr. Conor Chan FREE THYROXINE INDEX T7on FTI 2.89 Normal [facility] Comment on above: Performed By: #### L IPID, TSH, T7, URIC, CMP #### [facility] [address] [place] [address] Dr. Conor Chan T3U 34.0 % Normal 23.5-40.5 [facility] Comment on above: Performed By: #### L IPID, TSH, T7, URIC, CMP #### [facility] [address] [place], [place] [id number] Dr. Conor Chan T4 [Mass/Vol] 8.50 ug/dL Normal 5.53-11.00 [facility] Comment on above: Performed By: #### L IPID, TSH, T7, URIC, CMP #### [facility] [address] [address] [address] Conor Chan GLYCOHEMOGLOBIN A1Con 2021 ADA RECOMMENDATION ADA THERAPEUTIC TARGET 6.0 - 7.0 ACTION SUGGESTED > 7.0 Normal [facility] Comment on above: Performed By: #### A 1C #### [facility] [address] [place] [address] Dr. Conor Chan Glucose [Mass/Vol] 126 mg/dL Normal [facility] Comment on above: Performed By: #### A 1C #### [facility] [address] [place] [address] Dr. Conor Chan HbA1c (Bld) [Mass fraction] 6.0 % Normal <=6.0 [facility] Comment on above: Performed By: #### A 1C #### [facility] [address] [place] [address] Dr. Conor Chan LIPID PROFILEon 12-20-2021 CHOL-HDL RATIO NORM SEE BELOW Normal [facility] Comment on above: Result Comment: 3.3 - 4.4 LOW RISK 4.4 - 7.1 AVERAGE RISK 7.1 - 11.0 MODERATE RISK >11.0 HIGH RISK Performed By: #### L IPID, TSH, T7, URIC, CMP #### [facility] [address] [place] [address] Dr. Conor Chan Cholesterol [Mass/Vol] 161 mg/dL Normal <=200 [facility] Comment on above: Performed By: #### L IPID, TSH, T7, URIC, CMP #### [facility] [address] [place] [address] Dr. Conor Chan Cholesterol in HDL [Mass/Vol] 50 mg/dL Normal [facility] Comment on above: Performed By: #### L IPID, TSH, T7, URIC, CMP #### [facility] [address] [address] [address] Conor Chan Cholesterol in LDL [Mass/Vol] 96.0 mg/dL Normal [facility] Comment on above: Performed By: #### L IPID, TSH, T7, URIC, CMP #### [facility] [address] [place] [address] Dr. Conor Chan Cholesterol.total/Ch olesterol in HDL [Mass ratio] 3.2 {ratio} Normal [facility] Comment on above: Performed By: #### L IPID, TSH, T7, URIC, CMP #### [facility] [address] [address] [address] Conor Chan HDL NORMAL > or = 60 mg/dl - LO W CARDIOVASCULAR RISK <40 mg/dl - HIGH CARDIOVASCULAR RISK Normal [facility] Comment on above: Performed By: #### L IPID, TSH, T7, URIC, CMP #### [facility] [address] [place] [address] Dr. Conor Chan LDL CALC NORMAL SEE BELOW Normal [facility] Comment on above: Result Comment: <100 mg/dl OPTIMAL 100 - 129 mg/dl NEAR OR ABOVE OPTIMAL 130 - 159 mg/dl BORDERLINE HIGH 160 - 189 mg/dl HIGH >190 mg/dl VERY HIGH Performed By: #### L IPID, TSH, T7, URIC, CMP #### [facility] [address] [address] [address] Conor Chan Triglyceride [Mass/Vol] 75 mg/dL Normal <=150 [facility] Comment on above: Performed By: #### L IPID, TSH, T7, URIC, CMP #### [facility] [address] [address] [address] Conor Chan VLDL CALC 15.0 mg/dL Normal [facility] Comment on above: Performed By: #### L IPID, TSH, T7, URIC, CMP #### [facility] [address] [address] [address] Conor Chan PROF 14(COMP METB)on 022 Albumin [Mass/Vol] 3.7 g/dL Normal 3.5-5.0 [facility] Comment on above: Performed By: #### L IPID, TSH, T7, URIC, CMP #### [facility] [address] [address] [address] Conor Chan Albumin/Globulin [Mass ratio] 0.9 {ratio} Normal [facility] Comment on above: Performed By: #### L IPID, TSH, T7, URIC, CMP #### [facility] [address] [place] [address] Dr. Conor Chan ALP [Catalytic activity/Vol] 58 U/L Normal 38-126 [facility] Comment on above: Performed By: #### L IPID, TSH, T7, URIC, CMP #### [facility] [address] [place] [address] Dr. Conor Chan ALT [Catalytic activity/Vol] 40 U/L Normal 21-72 [facility] Comment on above: Performed By: #### L IPID, TSH, T7, URIC, CMP #### [facility] [address] [place] [address] Dr. Conor Chan Anion gap [Moles/Vol] 5.5 mmol/L Normal [facility] Comment on above: Performed By: #### L IPID, TSH, T7, URIC, CMP #### [facility] [address] [place] [address] Dr. Conor Chan AST [Catalytic activity/Vol] 18 U/L Normal 17-59 [facility] Comment on above: Performed By: #### L IPID, TSH, T7, URIC, CMP #### [facility] [address] [place] [address] Dr. Conor Chan Bilirubin [Mass/Vol] 0.5 mg/dL Normal 0.2-1.3 [facility] Comment on above: Performed By: #### L IPID, TSH, T7, URIC, CMP #### [facility] [address] [place] [address] Dr. Conor Chan Calcium [Mass/Vol] 9.9 mg/dL Normal 8.4-10.2 [facility] Comment on above: Performed By: #### L IPID, TSH, T7, URIC, CMP #### [facility] [address] [place] [address] Dr. Conor Chan Chloride [Moles/Vol] 97 mmol/L Critically low 98-107 [facility] Comment on above: Performed By: #### L IPID, TSH, T7, URIC, CMP #### [facility] [address] [place] [address] Dr. Conor Chan CO2 [Moles/Vol] 30.7 mmol/L Critically high 22.0-30.0 [facility] Comment on above: Performed By: #### L IPID, TSH, T7, URIC, CMP #### [facility] [address] [place] [address] Dr. Conor Chan Creatinine [Mass/Vol] 1.04 mg/dL Normal 0.66-1.25 [facility] Comment on above: Performed By: #### L IPID, TSH, T7, URIC, CMP #### [facility] [address] [place] [address] Dr. Conor Chan EGFR-AF ROMANIAN >60 Normal >=60 [facility] Comment on above: Performed By: #### L IPID, TSH, T7, URIC, CMP #### [facility] [address] [place] [address] Dr. Conor Chan EGFR-NON AF ROMANIAN >60 Normal >=60 [facility] Comment on above: Performed By: #### L IPID, TSH, T7, URIC, CMP #### [facility] [address] [place] [address] Dr. Conor Chan Globulin (S) [Mass/Vol] 4.2 g/dL Normal [facility] Comment on above: Performed By: #### L IPID, TSH, T7, URIC, CMP #### [facility] [address] [place] [address] Dr. Conor Chan Glucose [Mass/Vol] 122 mg/dL Critically high 74-106 [facility] Comment on above: Performed By: #### L IPID, TSH, T7, URIC, CMP #### [facility] [address] [place] [address] Dr. Conor Chan Potassium [Moles/Vol] 3.2 mmol/L Critically low 3.4-5.0 [facility] Comment on above: Performed By: #### L IPID, TSH, T7, URIC, CMP #### [facility] [address] [place] [address] Dr. Conor Chan Protein [Mass/Vol] 7.9 g/dL Normal 6.1-8.2 [facility] Comment on above: Performed By: #### L IPID, TSH, T7, URIC, CMP #### [facility] [address] [place] [address] Dr. Conor Chan Sodium [Moles/Vol] 130 mmol/L Critically low 137-145 [facility] Comment on above: Performed By: #### L IPID, TSH, T7, URIC, CMP #### [facility] [address] [place] [address] Dr. Conor Chan Urea nitrogen [Mass/Vol] 15.0 mg/dL Normal 9.0-20.0 [facility] Comment on above: Performed By: #### L IPID, TSH, T7, URIC, CMP #### [facility] [address] [place] [address] Dr. Conor Chan Urea nitrogen/Creatinine [Mass ratio] 14.4 mg/mg Normal [facility] Comment on above: Performed By: #### L IPID, TSH, T7, URIC, CMP #### [facility] [address] [place] [address] Dr. Conor Chan TSHon 12-20-2021 TSH 2.122 uIU/mL Normal 0.470-4.680 [facility] Comment on above: Performed By: #### L IPID, TSH, T7, URIC, CMP #### [facility] [address] [place] [address] Dr. Conor Chan TSH RANGE SEE BELOW Normal [facility] Comment on above: Result Comment: <0.3 4 UIU/ml HYPERTHYROID 0.34-5.60 UIU/ml EUTHYROID >5.60 UIU/ml HYPOTHYROID Performed By: #### L IPID, TSH, T7, URIC, CMP #### [facility] [address] [address] [address] Conor Chan URIC ACID SERUMon 12-20-2021 Urate [Mass/Vol] 7.3 mg/dL Normal 3.5-8.5 [facility] Comment on above: Performed By: #### L IPID, TSH, T7, URIC, CMP #### [facility] [address] [address] [address] Conor Chan XR LSPINE MIN 4 [...] by: OSCAR FRANCO Date: 2021-12-20 10:06 Normal [facility] Vital Signs Date Time Vital Sign Value Performing Clinician Idalmis rausch 2023 08:03-0400 Body height 182.9 cm Bilal Butt Work Phone: [facility] 2023 08:03-0400 Body weight 120.2 kg Bilal Butt Work Phone: [facility] 06-02-2023 13:26-0400 Body height 182.9 cm Darren Harris APRN.CHILD CARE CENTER ASSISTANT DIRECTOR Work Phone: [facility] 06-02-2023 13:26-0400 Body weight 117.03 kg Darren Harris APRN.CHILD CARE CENTER ASSISTANT DIRECTOR Work Phone: [facility] 06-02-2023 13:26-0400 Diastolic blood pressure 84 mm[Hg] Darren Harris APRN.KIRILL Work Phone: [facility] 06-02-2023 13:26-0400 Heart rate 63 /min Darren Harris APRN.KIRILL Work Phone: [facility] 08-07-2023 13:26-0400 Respiratory rate 18 /min Darren Clara ACTING SECTION CHIEF.CHILD CARE CENTER ASSISTANT DIRECTOR Work Phone: [facility] 06-02-2023 13:26-0400 SaO2% (BldA) [Mass fraction] 95 % Darren Harris ACTING SECTION CHIEF.CHILD CARE CENTER ASSISTANT DIRECTOR Work Phone: [facility] 06-02-2023 13:26-0400 Systolic blood pressure 128 mm[Hg] Darren Clara ACTING SECTION CHIEF.CHILD CARE CENTER ASSISTANT DIRECTOR Work Phone: [facility] 05-13-2023 11:22-0400 Body height 182.88 cm Avi Lauren Hoy Work Phone: [facility] [facility] DO Work Phone: 05-13-2023 11:22-0400 Body mass index (BMI) [Ratio] 36.21 kg/m2 Avi M Hoy Work Phone: [facility] 250 DO Work Phone: 05-13-2023 11:22-0400 Body surface area Derived from formula 2.41 m2 Avi Lauren Hoy Work Phone: [facility] [place] 250 DO Work Phone: 05-13-2023 11:22-0400 Body weight 121.11 kg Avi M Hoy Work Phone: [facility] 250 DO Work Phone: 05-13-2023 11:22-0400 Diastolic blood pressure 78 mm[Hg] Avi M Hoy Work Phone: [facility] [place] 250 DO Work Phone: 05-13-2023 11:22-0400 Heart rate 64 /min Avi M Hoy Work Phone: [facility] 250 DO Work Phone: 05-13-2023 11:22-0400 Systolic blood pressure 132 mm[Hg] Avi M Hoy Work Phone: [facility] [place] 250 DO Work Phone: 05-07-2022 11:36-0400 Body height 182.88 cm Avi M Hoy Work Phone: [facility] 250 DO Work Phone: 05-07-2022 11:36-0400 Body mass index (BMI) [Ratio] 38.38 kg/m2 Avi M Hoy Work Phone: [facility] 250 DO Work Phone: 05-07-2022 11:36-0400 Body surface area Derived from formula 2.47 m2 Avi M Hoy Work Phone: [facility] 250 DO Work Phone: 05-07-2022 11:36-0400 Body weight 128.37 kg Avi M Hoy Work Phone: [facility] 250 DO Work Phone: 05-07-2022 11:36-0400 Diastolic blood pressure 72 mm[Hg] Avi M Hoy Work Phone: [facility] 250 DO Work Phone: 05-07-2022 11:36-0400 Heart rate 66 /min Avi M Hoy Work Phone: [facility] 250 DO Work Phone: 05-07-2022 11:36-0400 Systolic blood pressure 110 mm[Hg] Avi M Hoy Work Phone: [facility] 250 DO Work Phone: Encounters Encounter Date Encounter Type Care Provider Facility Start: 2023 End: 2023 ambulatory JUAN R BEY Facility:[facility] Start: 2023 End: 2023 Office outpatient new 30 minutes Juan R Bey MD Work Phone: [facility] Comment on above: Meralgia paresthetic a of left side (Primary Dx); Chronic midline low back pain without sciatica Start: 08-01-2023 End: 08-01-2023 ambulatory Darren Harris ACTING SECTION CHIEF.CHILD CARE CENTER ASSISTANT DIRECTOR Work Phone: [facility] Comment on above: Dr chong Cut me open Start: 07-01-2023 End: 07-01-2023 ambulatory JESSICA CAMP Facility:[facility] Start: 06-26-2023 Telephone encounter Jessica Camp DO Work Phone: [facility] Comment on above: Preparations For Pro cedures (Pre-injection instructions) Start: 06-19-2023 Orders Only Jessica hall DO Work Phone: Neurology Comment on above: Lumbar radiculopathy (Primary Dx); Displacement of lumbar intervertebral disc without myelopathy Start: 06-02-2023 End: 06-03-2023 ambulatory DARREN HARRIS Facility:[facility] Start: 06-02-2023 End: 06-02-2023 Patient encounter procedure Darren Harris ACTING SECTION CHIEF.CHILD CARE CENTER ASSISTANT DIRECTOR Work Phone: [facility] Comment on above: Radiculopathy, lumba r region (Primary Dx); Lumbar disc herniation Start: 05-13-2023 Office outpatient vi sit 25 minutes Avi Cervantes Work Phone: [facility] 250 DO Work Phone: Start: 05-13-[address] Reilly Nelson II Facility: Start: 05-06-2023 Chart abstracting None (Historical) Neurology Start: 12-16-2022 Rx Renewal Avi Cervantes Work Phone: [facility] 250 DO Work Phone: Start: 07-17-2022 End: 07-17-2022 ambulatory Bijan Betts Jr Facility:[facility] Start: 07-17-2022 End: 07-17-2022 Departed Referred MD Avi Cervantes Work Phone: [facility] 250 Start: 05-07-2022 Office outpatient vi sit 25 minutes Avi Cervantes Work Phone: [facility] 250 DO Work Phone: Start: 01-03-[address] AVI CERVANTES Facility :[facility] Start: 12-21-2021 Encounter for genera l adult medical examination without abnormal findings DR AVI CERVANTES [facility] Start: 12-20-2021 End: 12-21-[address] AVI CERVANTES Facility:[facility] Start: 12-20-2021 End: 12-21-2021 Encounter for general adult medical examination without abnormal findings DR AVI CERVANTES Facility:[facility] Start: 12-10-2021 Rx Renewal Reilly mcmahon MD Work Phone: [facility] 250 DO Work Phone: Procedures Date Procedure Procedure Detail Performing Clinician Start: 07-17-2022 Radiologic examinati on of knee MD Avi Cervantes Work Phone: Start: 12-20-[address] RONDA CERVANTES Comment on above: Performed By: #### [facility] #### [facility] [address] [place] [address] Dr. Conor Chan Start: 06-09-2020 Total colonoscopy Chaz Nelson MD Work Phone: Start: 07-02-2019 Colonoscopy Darren harris APRN.CHILD CARE CENTER ASSISTANT DIRECTOR Work Phone: Cardiac catheterization Will renetta Nelson MD Work Phone: Cholecystectomy Reilly miranda MD Work Phone: Plan of Treatment Date Care Activity Detail Author Start: 12-20-2026 PROSTATE CANCER SCREENING DISCUSSION PROSTATE CANCER SCREENING DISCUSSION [facility] Start: 06-27-2023 Influenza vaccination [facility] Start: 05-13-2023 FUV, Provider: Reilly Nelson, Status: Pen, Time: 11:10 AM FUV, Provider: Reilly Nelson, Status: Pen, Time: 11:10 AM [facility] 250 DO Work Phone: Start: 10-27-2022 DEPRESSION ASSESSMENT DEPRESSION ASS ESSMENT [facility] Start: 05-17-2022 COVID-19 VACCINE (6 - Pfizer series) COVID-19 VACCINE (6 - Pfizer series) [facility] Start: 05-15-2022 FUV, Provider: Reilly Nelson, Status: Pen, Time: 2:00 PM FUV, Provider: Reilly Nelson, Status: Pen, Time: 2:00 PM [facility] 250 DO Work Phone: Start: 07-02-2020 Colonoscopy COLONOSCOPY [facility] Start: 07-02-2020 COLORECTAL CANCER SCREENING COLORECTAL CANCER SCREENING [facility] Start: 2016 Prostate Cancer Screening Discussion Prostate Cancer Screening Discussion [facility] Start: 2011 SHINGRIX VACCINE (1 of 2) SHINGRIX VACCINE (1 of 2) [facility] Start: 2006 COLOGUARD (FIT-DNA) COLOGUARD (FIT-D NA) [facility] Start: [address] COLONOGRAPHY [facility] Start: 2006 DIABETES SCREEN DIABETES SCREEN [facility] Start: 2006 Diabetes Screening Diabetes Screenin g [facility] Start: 2006 FECAL OCCULT BLOOD FECAL OCCULT BLOO D [facility] Start: 2006 SIGMOIDOSCOPY SIGMOIDOSCOPY [facility] Start: 1996 Lipid 1996 panel - S hayden or Plasma Lipid Screening [facility] Start: 1996 LIPID SCREEN LIPID SCREEN [facility] Start: 1980 Urine microalbumin profile [facility] Start: 1979 HEPATITIS C SCREENING HEPATITIS C SC REENING [facility] Start: 1979 HIV SCREENING HIV SCREENING [facility] End: 09-02-2024 Radex spine lumbosacral minimum 4 views XR LUMBAR MOTION 4V AP/LAT/ FLEX/EXT Radiology Routine Meralgia paresthetica of left side 1 Occurrences starting 2023 until 09/02/2024 [facility] Work Phone: Comment on above: 1 Occurrences starti ng 2023 until 09/02/2024 SPINE INTERVENTION PROCEDURE SPINE INTERVENTION PROCEDURE Procedures Routine Radiculopathy, lumbar region Lumbar disc herniation Ordered: 06/02/2023 [facility] Work Phone: Comment on above: Ordered: 06/02/2023 [facility] RACHAEL [facility] Immunizations Immunization Date Immunization Notes Care Provider Deepa rehman 10-14-2022 Pfizer COVID-19 Vac Bivalent 30 MCG/0.3ML Intramuscular Suspension Avi M Hoy Work Phone: [facility] 250 DO Work Phone: 10-03-2022 influenza, injectabl e, quadrivalent, preservative free Avi M Hoy Work Phone: [facility] 250 DO Work Phone: 10-03-2022 influenza virus vacc ine, unspecified formulation Darren Harris APRN.CHILD CARE CENTER ASSISTANT DIRECTOR Work Phone: [facility] 03-22-2022 Comirnaty 30 MCG/0.3 ML Intramuscular Suspension Avi M Hoy Work Phone: [facility] 250 DO Work Phone: 03-22-2022 Moderna COVID-19 Vac cine 100 MCG/0.5ML Intramuscular Suspension Avi M Hoy Work Phone: [facility] Comment on above: Series: 03-22-2022 zoster vaccine recombinant Avi M Hoy Work Phone: [facility] 250 DO Work Phone: 09-03-2021 Pfizer-BioNTech COVI D-19 Vacc 30 MCG/0.3ML Intramuscular Suspension Avi M Hoy Work Phone: [facility] 08-25-2021 influenza, injectabl e, quadrivalent, preservative free Avi M Hoy Work Phone: [facility] 250 DO Work Phone: 08-25-2021 zoster vaccine recombinant Avi M Hoy Work Phone: [facility] DO Work Phone: 02-13-2021 Pfizer-BioNTech COVI D-19 Vacc 30 MCG/0.3ML Intramuscular Suspension Avi Cervantes Work Phone: [facility] 01-13-2021 Pfizer-BioNTech COVI D-19 Vacc 30 MCG/0.3ML Intramuscular Suspension Avi Cervantes Work Phone: [facility] 12-23-2020 Pfizer-BioNTech COVI D-19 Vacc 30 MCG/0.3ML Intramuscular Suspension Avi Cervantes Work Phone: [facility] 08-28-2020 influenza, injectabl e, quadrivalent, preservative free Avi Cervantes Work Phone: [facility] 250 DO Work Phone: 08-28-2020 influenza virus vacc ine, unspecified formulation Juan R Bey MD Work Phone: [facility] Payers Date Payer Category Payer Self-pay [id number] [phone] [id number] 2021 Private Health Insurance [employer] A ETNA POS [id number] 2021-Present [phone] [address] [place] [address] POS [id number] 1961 Unknown [id number] 1961 Unknown [id number] 1961 Unknown [id number] 1959 Private Health Insurance [id number] 1958 Self-pay [id number] Unknown Unknown [facility] [id number] Unknown [id number] Social History Date Type Detail Facility Start: 06-02-2023 End: 08-01-2023 Consumes alcohol Consumes alcohol [facility] Comment on above: socially; occasional; Start: 09-28-2020 End: 06-02-2023 Tobacco smoking status NHIS Never smoked tobacco (finding) [facility] Start: 1960 Sex Assigned At Male F [facility] Tobacco smoking stat NHIS Tobacco smoking consumption unknown [facility] Start: 1960 Sex Assigned At Not on file [facility] Start: 06-02-2023 End: 08-01-2023 Gender identity Not on file [facility] Start: 06-02-2023 Tobacco use and exposure Smokeless tobacco non-user [facility] National Score (1-10 0), lower number is lower risk 61 [facility] Start: 07-28-2023 Gender identity Identifies as male gender (finding) [facility] Start: 07-28-2023 Sexual orientation Heterosexual (fin ding) [facility] Clinical Notes 05-06-2023 to 2023 Juan R Bey MD - 2023 8:40 AM EDTPBossman Brian - 2023 7:48 AM EDTTelephone Encounter - Oscar Rollins LPN - 06/26/2023 9:12 AM EDT Note Date & Type Note Facility 2023 Note HNO ID: [id number] Author: Juan R Bey MD Service: ? [...] issues. 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 Author Type: [...] opioids Medications: See medication reconciliation list in [facility] MEDICATIONS: Gabapentin, Ardsley, Tylenol Have you ever seen a pain [...] or completing routine daily living activities? No [facility] 2023 History of Presen t illness [...] issues. 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 Author Type: Nurse Practitioner Type: Progress Notes Filed: 08/01/2023 1:30 PM Note Text: SPINE SURGERY ESTABLISHED VISIT This is a virtual visit using BackTrack[employer] Video Visit. It required patient-provider interaction for the medical decision making as documented below. DATE OF SERVICE: 08/01/2023 DATE OF LAST VISIT: 06/02/2023 SUBJECTIVE: HPI:Kim Nichols is a 62 year old male presenting via virtual vist s/p Left L5 transforaminal epidural steroid injection on 07/01/[address] Camp. [place] great initially and for the first few [...] (primary encounter diagnosis) (M51.26) Lumbar disc herniation iKm Nichols will continue medically managing his condition [...] which included preparing to see the patient, [id number] patient care, completing clinical documentation, obtaining and/or reviewing separately obtained history, performing a medically appropriate examination, counseling and educating the patient/family/caregiver, independently interpreting results (not separately reported), and communicating results to the patient/family/caregiver. SIGNATURE: Darren Harris APRN.KIRILL PATIENT NAME: Kim Nichols DATE: August 01, 2023 TIME: 12:53 PM PAGER: [facility] 06-26-2023 Miscellaneous Notes Phoned patient and message left for Kim to confirm appointment for Kim Nichols for spine procedure on 07/01/2023. Patient notified that [place] will call patient the night before with the time to arrive for injection. Patient verbalized understanding of the following: -Provided education on spine procedure and answered questions related to spine injection procedure. -Welt Rander is needed to drive patient home. -NPO [...] to report. Diabetic: No Patient given number [phone], spine injections schedulers, if there is any [...] POST INJECTION INSTRUCTIONS documented in this encounter [facility] 06-02-2023 Note HNO ID: [id number] Author: Darren Harris APRN.CHILD CARE CENTER ASSISTANT DIRECTOR Service: ? Author Type: Nurse Practitioner Type: [...] with him pain. He also is prescribed Ardsley for breakthrough pain which he only takes [...] Normal. DATA REVIE (more content not included)... [facility] 06-02-2023 History of Presen t illness [...] with him pain. He also is prescribed Ardsley for breakthrough pain which he only takes [...] which included preparing to see the patient, [id number] patient care, completing clinical documentation, obtaining and/or reviewing separately obtained history, performing a medically appropriate examination, counseling and educating the patient/family/caregiver, independently interpreting results (not separately reported), and communicating results to the patient/family/caregiver. SIGNATURE: Darren Harris APRN.CNP PATIENT NAME: Kim Nichols DATE: June 02, 2023 TIME: 1:57 PM PAGER: documented in this encounter [facility] 05-14-2023 Note HNO ID: [id number] Author: Ember Delatorre PA-C Service: ? Author Type: Physician Machine Buffer Type: Progress Notes Filed: 05/14/2023 4:17 PM Note Text: Per Triage: Kim Nichols is a 62 year old male that requests evaluation of lumbar spine. Per review, they have symptoms of back and LLE pain. Positive for numbness. CMT: Medication: Gabapentin, Tylenol, Ardsley Studies (Reports unless indicated) MRI Lumbar: L4/5 moderate left foramen narrowing which may contribute to patient's symptoms 2. L5/S1 disc protrusion without significant canal or foramen narrowing. Disposition: Please schedule with surgical SANDY. Consider if injection is appropriate or on effective dose of Neurontin. Also see if symptoms correlate with imaging. [facility] 05-14-2023 History of Presen t illness Narrative Per Triage: Kim Nichols is a 62 year old male that requests evaluation of lumbar spine. Per review, they have symptoms of back and LLE pain. Positive for numbness. CMT: Medication: Gabapentin, Tylenol, Ardsley Studies (Reports unless indicated) MRI Lumbar: L4/5 [...] Health Provider or Pain Management Provider at [facility]? No If answer is YES please [...] facility where the MRI/CT/myelogram was completed: [facility] [address] [place] [address] MRI/CT/myelogram viewable in Epic: No If not, please provide [phone] to fax in imaging reports for review. [...] Additional Comments Hydrocodone documented in this encounter [facility] 05-06-2023 Note HNO ID: [id number] Author: Mauricio Kelley Service: ? Author Type: ? Type: Progress Notes Filed: 05/14/2023 4:17 PM Note Text: Patient name: Kim Nichols Are you being referred by a [place] for Spine Health Provider or Pain Management Provider at [facility]? No If answer is YES please [...] facility where the MRI/CT/myelogram was completed: The [address] [address] MRI/CT/myelogram viewable in Epic: No If not, please provide [phone] to fax in imaging reports for review. [...] the surgery was completed: Additional Comments Hydrocodone [facility] Evaluation note No assessment inform ation [facility] Work Phone: Evaluation note Diagnosis Radiculopathy, lumbar region- Primary Thoracic or lumbosacral neuritis or radiculitis, unspecified Lumbar disc herniation Displacement of lumbar intervertebral disc without myelopathy [facility] Lumbar radiculopathy- Primary Thoracic or lumbosacral neuritis or radiculitis, unspecified Displacement of lumbar intervertebral disc without myelopathy [facility] Diagnosis Meralgia paresthetica of left side- Primary Meralgia paresthetica Chronic midline low back pain without sciatica documented [facility] this encounter [facility] Present illness NarrativePatient returns in [...] to their favorable impact on blood pressure andcholesterol.-[facility] DO Work Phone: History [...] to call if they arise or occur. -[facility] [employer] DO Work Phone: History of Present illness [...] to call if they arise or occur. [facility] [employer] DO Work Phone: Reason for referral (narrative)* Diagnostic Procedure Only (Routine) - Pending Review Specialty Diagnoses / Procedures Referred By Contac t Referred To Contact XR IMAGING Diagnoses Meralgia paresthetica of left side Procedures XR LUMBAR MOTION 4V AP/LAT/ FLEX/EXT RADEX SPINE LUMBOSACRAL MINIMUM 4 VIEWS Juan R Bey MD [address] [place] [address] [place] [address] Referral ID Status Reason Start Date Expiration Date Visits Requested Visits Authorized [id number] Pending Review Auto-Generat ed Referral 2023 09/02/2024 1 1 [facility] Summary Purpose Family History No Family [...] and content) DATE CREATED AUTHOR 01/05/2022 [facility] DATE CREATED AUTHOR AUTHOR'S ORGANIZ ATION 07/28/2022 [facility] DATE CREATED AUTHOR AUTHOR'S ORGANIZ ATION 05/14/2023 [facility] DATE CREATED AUTHOR AUTHOR'S ORGANIZ ATION 05/14/2023 [facility] DATE CREATED AUTHOR AUTHOR'S ORGANIZ ATION 2023 [facility] DATE CREATED AUTHOR AUTHOR'S ORGANIZ ATION 08/05/2023 [facility] l Care Teams (unrecognized sec tion and content) Team Status: Inactive Member Role Status Dates Avi Cervantes MD Primary Care Provider Active Bijan Betts Jr, DO Attending Provider Active Team Status: Active Member Role Status Dates Avi Cervantes MD Primary Care Provider Active Fish Cake Maker Relationship Specialty Start Date End Date Avi Cervantes MD [address] [place] [address] Referring Family Medicine 04/24/23 [employer] Relationship Specialty Start Date End Date Avi Cervantes MD [address] [place] [address] Referring Family Medicine 04/24/23 Fish Cake Maker Relationship Specialty Start Date End Date Avi Cervantes MD [address] [place] [address] Referring Family Medicine 04/24/23 Fish Cake Maker Relationship Specialty Start Date End Date Avi Cervantes MD [address] [facility] [place] [address] PCP - General Family Medicine 06/25/23 Avi Cervantes MD [address] [facility] [place] [address] Referring Family Medicine 04/24/23 Fish Cake Maker Relationship Specialty Start Date End Date Avi Cervantes MD [address] [place] [address] PCP - General Family Medicine 06/25/23 Avi Cervantes MD [address] [place] [address] Referring Family Medicine 04/24/23 Fish Cake Maker Relationship Specialty Start Date End Date Avi Cervantes MD [address] [place] [address] PCP - General Family Medicine 06/25/23 Avi Cervantes MD [address] [place] [address] Referring Family Medicine 04/24/23 Goals (unrecognized section [...] or prosecute any alcohol or drug abuse patient.[facility] the event this information is protected by the Federal Confidentiality of Alcohol and Drug Abuse Patient Records regulations: The Federal rules restrict any use of the information to criminally investigate or prosecute any alcohol or drug abuse patient.[facility] the event this information is protected by the Federal Confidentiality of Alcohol and Drug Abuse Patient Records regulations: The Federal rules restrict any use of the information to criminally investigate or prosecute any alcohol or drug abuse patient.[facility] the event this information is protected by the Federal Confidentiality of Alcohol and Drug Abuse Patient Records regulations: The Federal rules restrict any use of the information to criminally investigate or prosecute any alcohol or drug abuse patient.[facility] the event this information is protected by the Federal Confidentiality of Alcohol and Drug Abuse Patient Records regulations: The Federal rules restrict any use of the information to criminally investigate or prosecute any alcohol or drug abuse patient.[facility] the event this information is protected by the Federal Confidentiality of Alcohol and Drug Abuse Patient Records regulations: The Federal rules restrict any use of the information to criminally investigate or prosecute any alcohol or drug abuse patient.[facility] Reason for Visit (unrecogniz ed section [...] BE BASED ON THE PRIMARY CLINICAL RECORDS. [facility] [employer] [facility]. provides no warranty or guarantee of the accuracy or completeness of information in this document.
--- NOTE | 2024-05-25 08:00 | CA_ITS ---
Patient Name: KIM BOWEN MR#: [id number] : 1960 Exam Date: 05/25/2024 Ordering Doctor: DR Jason Cervantes . ECHOCARDIOGRAM REPORT PROCEDURE: CA ECHO DOPPLER COMPLETE INDICATIONS: Atrial fibrillation, Chest pain, MILIAN COMPARISON: None. DESCRIPTION: COMPLETE ECHOCARDIOGRAM Real-time transthoracic echocardiography with 2D, M-mode, spectral and color flow Doppler performed. QUALITY: Technical quality was good. LEFT VENTRICLE: Normal chamber size. Normal left ventricular wall thickness. LV EF: Global left ventricular systolic function is normal. Visual estimation of left ventricular ejection fraction is 60%. No obvious wall motion abnormalities DIASTOLIC: Normal diastolic function. ATRIAL SEPTUM: Inadequately seen LEFT ATRIUM: Normal chamber size. RIGHT ATRIUM: Normal chamber size. RIGHT VENTRICLE: Appears enlarged. Systolic function appears reduced. TRICUSPID VALVE: Normal mobility and thickness. No stenosis with trivial regurgitation. No evidence of pulmonary hypertension. RVSP 23mmHg. MITRAL VALVE: Normal mobility and thickness. No evidence of mitral valve stenosis. There is no mitral annular calcification. No mitral regurgitation. AORTIC VALVE: Normal trileaflet appearance. No visible sclerosis. Normal leaflet mobility. No evidence of aortic valve stenosis. No aortic regurgitation. AORTIC ROOT: Normal diameter and appearance. PULMONIC VALVE: Normal thickness and mobility. No stenosis. No regurgitation. PERICARDIUM: No evidence of pericardial effusion. IVC: Collapses with inspirations. Normal size. CONCLUSION: 1. Global left ventricular systolic function is normal; visually estimated ejection fraction is 60 to 65% 2. The right ventricle appears enlarged with reduced systolic function 3. Normal diastolic function 4. The valves are poorly seen; no significant valvular abnormalities Adult Echocardiography Procedure Report Left Ventricle LVEDD (3.7 - 5.6 cm): 5.08 cm LVESD (2.2 - 4.0 cm): 3.13 cm LVIVS thickness (0.6 - 1.2 cm): 0.89 cm LVPW thickness (0.5 - 1.0 cm): 0.71 cm e': 0.10 m/s E - e': 3.82 LVOT Max Gradient: 1.87 mm[Hg] LVOT Area (cm2): 0.68 m/s Peak Velocity (LVOT): 0.68 m/s Mean Velocity (LVOT): 0.52 m/s LVOT Diameter 2.33 cm Left Atrium LA Volume Index (2D A2C): 14.77 ml/m2 Left Atrium Systolic Dimension: 2.82 cm Mitral Valve MV E to A Ratio: 0.91 Mitral Valve A-Wave Peak Velocity: 0.41 m/s Mitral Valve E-Wave Peak Velocity: 0.37 m/s Right Ventricle RV Internal Diastolic Dimension: 3.37 cm Aorta AO Root Diam: 3.34 cm Ascending Ao Diam: 3.56 cm Aortic Valve AoV Area (Peak Andrew): 2.68 cm2, 2.68 cm2 AoV Area (VTI): 2.21 cm2, 2.21 cm2 Peak Velocity(Antegrade Flow): 1.09 m/s Peak Gradient(Antegrade Flow): 4.72 mm[Hg] Mean Velocity(Antegrade Flow): 0.77 m/s Mean Gradient(Antegrade Flow): 2.71 mm[Hg] Velocity Time Integral: 26.77 cm Tricuspid Valve Peak Velocity (Regurgitant Flow): 2.23 m/s, 1.84 m/s, 2.26 m/s Pulmonic Valve Mean Gradient: 1.72 mm[Hg] Mean Velocity: 0.62 m/s Peak Velocity: 0.94 m/s, 0.59 m/s Peak Gradient: 1.39 mm[Hg], 3.56 mm[Hg] Right Atrium Right Atrium Systolic Pressure: 38.01 ml, 38.01 ml Dictated by: Jero Mims M.D. on 05/25/2024 at 13:51 Approved by: Jero Mims M.D. on 05/25/2024 at 13:54
== END 2024-05-25 06:36 | disposition home or self-care (01) ==
LOC: NM 06:35
PROVIDERS: PCP Family Medicine; Visit Provider Family Medicine
DX: I48.91 Unspecified atrial fibrillation (principal); R07.9 Chest pain, unspecified
CPT/HCPCS: 78452; 93306; A9500

== ENCOUNTER 2024-05-26 07:07 | Outpatient (OUT) | payer OTHER, SELFPAY ==
--- OUTSIDE RECORDS SUMMARY | 2024-05-26 07:09 | XMS_ITS | CCD ---
Author Organization [facility] Care Team Providers Care Animal [place] Code Enforcement Officer Name Role Phone Unavailable Unavailable DR AVI CERVANTES Attending Unavailable MARLENI, DR CÁRDENAS Admitting Unavailable MARLENI, DR CÁRDENAS Attending Unavailable DR AVI CERVANTES Admitting Unavailable DR AVI CERVANTES Consulting Unavailable WEST, DR OSCAR Ingram Consulting Unavailable Avi Cervantes Unavailable MD Avi Cervantes Primary Care Provider [phone] DO Bijan Betts Jr Attending Provider Bijan Betts Jr Attending Unavailable Bijan Betts Jr Admitting Unavailable Avi Cervantes Primary Care Unavailable Leslie DAVALOS, Dr. Reilly Hernandez Referring Unavailable Leslie DAVALOS, Dr. Reilly Hernandez Attending Unavailable Dr. Avi Cervantes Primary Care Unavail able Avi Cervantes MD Unavailable Avi Cervantes MD Primary Care Provider [phone] DARREN HARRIS Attending Unavailable AVI CERVANTES Primary Care Unavailable DARREN HARRIS Attending Unavailable JESSICA CAMP Admitting Unavailable JESSICA CAMP Attending Unavailable JESSICA CAMP Referring Unavailable JUAN R BEY Attending Unavailable AVI CERVANTES Primary Care Unavailable Allergies Allergy Classification Reported Allergen(s) Allergy Type Date of Onset Reaction(s) Facility (13 sources) Amoxicillin; Translations: [amoxicillin] Drug Allergy 09-26-[address] [facility] (1 source) Amoxicillin Drug Allergy [facility] (1 source) traMADol Drug Allergy [facility] (1 source) Amoxicillin Drug Allergy 09-26-[address] [facility] Repository Medications Current Medications Medication Drug [...] P O Q6H September 26, 2020 1:00am Kohler 5-325 MG T ABS TAKE 1 TABLET [...] [Coronary atherosclerosis of unspecified type of vessel, [place] or graft] Chronic Diabetes mellitus without complication [...] CNOV Office Visit (SPSLUH ) KIM NICHOLS ([id number]) 1960 M Date Time Provider Department 08/04/23 8:00 AM JUAN R BEY [facility] During your visit today, we recorded [...] opioids Medications: See medication reconciliation list in [facility] MEDICATIONS: Gabapentin, Kohler, Tylenol Have you ever seen a pain [...] issues. 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 [facility] 07-08-2023 [facility] Telephone (SPNMMN) KIM NICHOLS ([id number]) 1960 M Date Time Provider Department 07/08/23 JESSICA CAMP [facility] During your visit today, we recorded the following information about you: Stacy Gallagher RN 07/08/2023 12:56 PM Signed Post Spine Injection phone call: [phone] on 07/08/23 Patient denies fever, chills, new [...] appointment 2-4 weeks post procedure by calling [phone] Patient does not have any questions or [...] Status:Closed by STACY GALLAGHER on 07/08/23 Normal [facility] HISTORY PHYSICALon HISTORY PHYSICAL HNO ID: [id number] Author: Sherice Galvin APRN.PATTERN AND CHAIN MAKER Service: ? Author Type: Nurse Practitioner Type: [...] 2023 TIME: 9:04 AM Normal [facility] OPERATIVE NOon 07-01-2023 OPERATIVE NO HNO ID: [id number] Author: Jessica Camp DO Service: Physical Medicine AND Rehabilitation Author Type: Physician Type: Operative Report Filed: 07/01/2023 9:40 AM Note Text: PROCEDURE REPORT Surgery/Procedure Date: July 01, 2023 Interventionalist: Jessica Camp DO Procedure(s): Left L5 transforaminal epidural steroid injection Pre-Op/Pre-Procedure Diagnosis: Lumbar radiculopathy Post-Op Diagnosis: same SUBJECTIVE: Kim Nichols is a 62 year old male, [facility]5 transforaminal epidural steroid injection. This is his first (1) procedure. He states he is NPO and has a city driver for return home. Pain is central [...] in stable condition. [facility] Camp [facility] KIM NICHOLS ([id number]) 1960 M Date Time Provider Department 06/26/23 [facility] During your visit today, we recorded the following information about you: Oscar Rollins LPN 06/26/2023 9:20 AM Signed Phoned patient and message left for Kim to confirm appointment for Kim Sureshjamal for spine procedure on 07/01/2023. Patient notified that [place] will call patient the night before with the time to arrive for injection. Patient verbalized understanding of the following: -Provided education on spine procedure and answered questions related to spine injection procedure. -[facility] [place] is needed to drive patient home. -NPO [...] to report. Diabetic: No Patient given number [phone], spine injections schedulers, if there is any [...] Encounter Status:Closed by OSCAR ROLLINS on 06/26/23 [facility] [place] 06-02-2023 CNOV Office Visit (SPNSMN ) KIM NICHOLS ([id number]) 1960 M Date Time Provider Department 06/02/23 [...] with him pain. He also is prescribed Kohler for breakthrough pain which he only takes [...] (more content not included)... Normal [facility] Office Visit (Cardiology)on 05-13-2023 Follow-up visit Diagnoses/Problems Assessed Coronary disease (414.00) (I25.10) Essential hypertension, benign (401.1) (I10) Hyperlipidemia (272.4) (E78.5) Class 2 obesity with body mass index (BMI) of 36.0 to 36.9 in adult (278.00,V85.36) (E66.9,Z68.36) Never a smoker Orders Class 2 obesity with body mass index (BMI) of 36.0 to 36.9 in adult Healthy Weight Tips; Status:Complete - Retrospective Authorization; Done: [id number] Some eating tips that can help you lose weight.; Status:Complete - Retrospective Authorization; Done: [id number] Coronary disease, Hyperlipidemia Renew: Aspirin EC Low Dose 81 MG Oral Tablet Delayed Release; TAKE 1 TABLET DAILY DIRECTED Hyperlipidemia Renew: Rosuvastatin Calcium 20 MG Oral Tablet; take 1 tablet by mouth at bedtime SocHx: Never a smoker Tobacco Use Screening; Status:Complete; Done: [id number] Patient Instructions Please bring all medicines, vitamins, [...] MG Oral CapsuleTAKE 1 CAPSULE TWICE DAILY. Kohler 5-325 MG TABSTAKE 1 TABLET EVERY 4 [...] negative for complaint. Vitals Vital Signs Recorded: [id number] 11:22AM Heart Rate64, R Radial Xocatsrj047, RUE, Sitting Lrxxmhcxp69, RUE, Sitting Height6 ft Vwydnv944 lb BMI Xshilpugdc98.21 kg/m2 BSA Calculated2.41 Tobacco Useb) No PHQ-2 [...] depression screening assessment No [facility] 250 DO Work Phone: Tobacco use status CPHS b) No [facility] 250 DO Work Phone: XR knee LT 4V*on 07-17-2022 XR knee LT 4V* [facility] [employer] [address] [place] [address] XRay Report Signed Patient: Kim Nichols MR#: [id number] : 1960 Acct:[id number] Age/Sex: 61 / M ADM Date: 07/17/22 Loc: [place] Room: Type: [facility] Attending Dr: Bijan Betts Jr, DO Copies [...] Stacy Ellis M.D.07/17/2022 1:18 PM Dictation Location: [place] [address] Transcribed By: [facility] 07/17/22 1318 Dictated By: Stacy Ellis MD 07/17/22 1315 Signed By: 07/17/22 1318 [facility] Tobacco Screening.on 022 Adult depression screening assessment No [facility] DO Work Phone: Fall risk assessment c) Not medically indicated [facility] 250 DO Work Phone: Tobacco use status CPHS b) No [facility] 250 DO Work Phone: H PYLORI ANTIBODY IGGon 11-28 H. PYLORI IGG ABS 0.45 Index Value Normal 0.00-0.79 [facility] Comment on above: Result Comment: Nega tive <0.80 Equivocal 0.80 - 0.89 Positive >0.89 Performed By: #### L IPID, TSH, T7, URIC, CMP #### [facility] [address] [address] [address] Conor Chan INSULINon 12-21-2021 Insulin 55.2 uIU/mL Critically high 2.6-24.9 [facility] Comment on above: Performed By: #### I NSULIN #### [facility] [address] [address] [address] Conor Chan TESTOSTERONE, TOTALon 2021 Testosterone [Mass/Vol] 380 ng/dL Normal 264-916 [facility] Comment on above: Result Comment: Adul t male reference interval is based on a population of healthy nonobese males (BMI <30) between 19 and 39 years old. Travon, et.al. JCEM 2017,102;3522-9253. PMID: [id number]. Performed By: #### L IPID, TSH, T7, URIC, CMP #### [facility] [address] [place] [address] Dr. Conor Chan CBC AUTO DIFFon 12-20-2021 BASO # 0.0 103/ul Normal 0.0-0.1 [facility] Comment on above: Performed By: #### C BC #### [facility] [address] [place] [address] Dr. Conor Chan Basophils/100 WBC (Bld) 0.5 % Normal 0.2-2.0 [facility] Comment on above: Performed By: #### C BC #### [facility] [address] [place] [address] Dr. Conor Chan EO # 0.2 103/ul Normal 0.0-0.7 [facility] Comment on above: Performed By: #### C BC #### [facility] [address] [place] [address] Dr. Conor Chan Eosinophils/100 WBC (Bld) 3.5 % Normal 0.9-7.0 [facility] Comment on above: Performed By: #### C BC #### [facility] [address] [place] [address] Dr. Conor Chan Erythrocyte distribution width (RBC) [Ratio] 13.8 % Normal 11.0-15.0 [facility] Comment on above: Performed By: #### C BC #### [facility] [address] [place] [address] Dr. Conor Chan Hematocrit (Bld) [Volume fraction] 48.5 % Normal 42.0-54.0 [facility] Comment on above: Performed By: #### C BC #### [facility] [address] [place] [address] Dr. Conor Chan Hemoglobin (Bld) [Mass/Vol] 16.3 g/dL Normal 14.0-18.0 [facility] Comment on above: Performed By: #### C BC #### [facility] [address] [place] [address] Dr. Conor Chan IG # 0.02 10e3/ul Normal 0.00-0.03 [facility] Comment on above: Performed By: #### C BC #### [facility] [address] [place] [address] Dr. Conor Chan IG % 0.3 % Normal 0.0-0.5 [facility] Comment on above: Performed By: #### C BC #### [facility] [address] [place] [address] Dr. Conor Chan LYMPH # 1.4 103/ul Normal 1.2-3.8 [facility] Comment on above: Performed By: #### C BC #### [facility] [address] [address] [address] Conor Chan Lymphocytes/100 WBC (Bld) 21.7 % Normal 20.5-60.0 [facility] Comment on above: Performed By: #### C BC #### [facility] [address] [place] [address] Dr. Conor Chan MANUAL DIFF REQ NO Normal [facility] Comment on above: Performed By: #### C BC #### [facility] [address] [place] [address] Dr. Conor Chan MCH (RBC) [Entitic mass] 28.5 pg Normal 25.9-34.0 [facility] Comment on above: Performed By: #### C BC #### [facility] [address] [place] [address] Dr. Conor Chan MCHC (RBC) [Mass/Vol] 33.6 g/dL Normal 29.9-35.2 [facility] Comment on above: Performed By: #### C BC #### [facility] [address] [place] [address] Dr. Conor Chan MCV (RBC) [Entitic vol] 84.9 fL Normal 80.0-94.0 [facility] Comment on above: Performed By: #### C BC #### [facility] [address] [place] [address] Dr. Conor Chan MONO # 0.6 103/ul Normal 0.3-0.8 [facility] Comment on above: Performed By: #### C BC #### [facility] [address] [place] [address] Dr. Conor Chan Monocytes/100 WBC (Bld) 9.3 % Normal 1.7-12.0 [facility] Comment on above: Performed By: #### C BC #### [facility] [address] [address] [address] Conor Chan NEUT # 4.1 103/ul Normal 1.4-6.5 [facility] Comment on above: Performed By: #### C BC #### [facility] [address] [place] [address] Dr. Conor Chan Neutrophils/100 WBC (Bld) 64.7 % Normal 43.0-75.0 [facility] Comment on above: Performed By: #### C BC #### [facility] [address] [place] [address] Dr. Conor Chan Platelet mean volume (Bld) [Entitic vol] 9.8 fL Normal 9.5-13.5 [facility] Comment on above: Performed By: #### C BC #### [facility] [address] [place] [address] Dr. Conor Chan PLT 235 103/ul Normal 150-450 [facility] Comment on above: Performed By: #### C BC #### [facility] [address] [place] [address] Dr. Conor Chan RBC 5.71 106/ul Normal 4.70-6.10 [facility] Comment on above: Performed By: #### C BC #### [facility] [address] [place] [address] Dr. Conor Chan WBC 6.4 103/ul Normal 4.0-11.0 [facility] Comment on above: Performed By: #### C BC #### [facility] [address] [place] [address] Dr. Conor Chan FREE THYROXINE INDEX T7on FTI 2.89 Normal [facility] Comment on above: Performed By: #### L IPID, TSH, T7, URIC, CMP #### [facility] [address] [place] [address] Dr. Conor Chan T3U 34.0 % Normal 23.5-40.5 [facility] Comment on above: Performed By: #### L IPID, TSH, T7, URIC, CMP #### [facility] [address] [place], [place] [address] Dr. Conor Chan T4 [Mass/Vol] 8.50 ug/dL Normal 5.53-11.[address] [facility] Comment on above: Performed By: #### L IPID, TSH, T7, URIC, CMP #### [facility] [address] [address] [address] Conor Chan GLYCOHEMOGLOBIN A1Con 2021 ADA RECOMMENDATION ADA THERAPEUTIC TARGET 6.0 - 7.0 ACTION SUGGESTED > 7.0 Normal [facility] Comment on above: Performed By: #### A 1C #### [facility] [address] [place] [address] Dr. Conor Chan Glucose [Mass/Vol] 126 mg/dL Normal [facility] Comment on above: Performed By: #### A 1C #### [facility] [address] [place] [address] Dr. Conor Chan HbA1c (Bld) [Mass fraction] 6.0 % Normal <=6.0 [facility] Comment on above: Performed By: #### A 1C #### [facility] [address] [place] [address] Dr. Conor Chan LIPID PROFILEon 12-20-2021 CHOL-HDL RATIO NORM SEE BELOW Normal [facility] Comment on above: Result Comment: 3.3 - 4.4 LOW RISK 4.4 - 7.1 AVERAGE RISK 7.1 - 11.0 MODERATE RISK >11.0 HIGH RISK Performed By: #### L IPID, TSH, T7, URIC, CMP #### [facility] [address] [place] [address] Dr. Conor Chan Cholesterol [Mass/Vol] 161 mg/dL Normal <=200 [facility] Comment on above: Performed By: #### L IPID, TSH, T7, URIC, CMP #### [facility] [address] [place] [address] Dr. Conor Chan Cholesterol in HDL [Mass/Vol] 50 mg/dL Normal [facility] Comment on above: Performed By: #### L IPID, TSH, T7, URIC, CMP #### [facility] [address] [address] [address] Conor Chan Cholesterol in LDL [Mass/Vol] 96.0 mg/dL Normal [facility] Comment on above: Performed By: #### L IPID, TSH, T7, URIC, CMP #### [facility] [address] [place] [address] Dr. Conor Chan Cholesterol.total/Ch olesterol in HDL [Mass ratio] 3.2 {ratio} Normal [facility] Comment on above: Performed By: #### L IPID, TSH, T7, URIC, CMP #### [facility] [address] [address] [address] Conor Chan HDL NORMAL > or = 60 mg/dl - LO W CARDIOVASCULAR RISK <40 mg/dl - HIGH CARDIOVASCULAR RISK Normal [facility] Comment on above: Performed By: #### L IPID, TSH, T7, URIC, CMP #### [facility] [address] [place] [address] Dr. Conor Chan LDL CALC NORMAL SEE BELOW Normal [facility] Comment on above: Result Comment: <100 mg/dl OPTIMAL 100 - 129 mg/dl NEAR OR ABOVE OPTIMAL 130 - 159 mg/dl BORDERLINE HIGH 160 - 189 mg/dl HIGH >190 mg/dl VERY HIGH Performed By: #### L IPID, TSH, T7, URIC, CMP #### [facility] [address] [address] [address] Conor Chan Triglyceride [Mass/Vol] 75 mg/dL Normal <=150 [facility] Comment on above: Performed By: #### L IPID, TSH, T7, URIC, CMP #### [facility] [address] [address] [address] Conor Chan VLDL CALC 15.0 mg/dL Normal [facility] Comment on above: Performed By: #### L IPID, TSH, T7, URIC, CMP #### [facility] [address] [address] [address] Conor Chan PROF 14(COMP METB)on 022 Albumin [Mass/Vol] 3.7 g/dL Normal 3.5-5.0 [facility] Comment on above: Performed By: #### L IPID, TSH, T7, URIC, CMP #### [facility] [address] [address] [address] Conor Chan Albumin/Globulin [Mass ratio] 0.9 {ratio} Normal [facility] Comment on above: Performed By: #### L IPID, TSH, T7, URIC, CMP #### [facility] [address] [place] [address] Dr. Conor Chan ALP [Catalytic activity/Vol] 58 U/L Normal 38-126 [facility] Comment on above: Performed By: #### L IPID, TSH, T7, URIC, CMP #### [facility] [address] [place] [address] Dr. Conor Chan ALT [Catalytic activity/Vol] 40 U/L Normal 21-72 [facility] Comment on above: Performed By: #### L IPID, TSH, T7, URIC, CMP #### [facility] [address] [place] [address] Dr. Conor Chan Anion gap [Moles/Vol] 5.5 mmol/L Normal [facility] Comment on above: Performed By: #### L IPID, TSH, T7, URIC, CMP #### [facility] [address] [place] [address] Dr. Conor Chan AST [Catalytic activity/Vol] 18 U/L Normal 17-59 [facility] Comment on above: Performed By: #### L IPID, TSH, T7, URIC, CMP #### [facility] [address] [place] [address] Dr. Conor Chan Bilirubin [Mass/Vol] 0.5 mg/dL Normal 0.2-1.3 [facility] Comment on above: Performed By: #### L IPID, TSH, T7, URIC, CMP #### [facility] [address] [place] [address] Dr. Conor Chan Calcium [Mass/Vol] 9.9 mg/dL Normal 8.4-10.2 [facility] Comment on above: Performed By: #### L IPID, TSH, T7, URIC, CMP #### [facility] [address] [place] [address] Dr. Conor Chan Chloride [Moles/Vol] 97 mmol/L Critically low 98-107 [facility] Comment on above: Performed By: #### L IPID, TSH, T7, URIC, CMP #### [facility] [address] [place] [address] Dr. Conor Chan CO2 [Moles/Vol] 30.7 mmol/L Critically high 22.0-30.0 [facility] Comment on above: Performed By: #### L IPID, TSH, T7, URIC, CMP #### [facility] [address] [place] [address] Dr. Conor Chan Creatinine [Mass/Vol] 1.04 mg/dL Normal 0.66-1.25 [facility] Comment on above: Performed By: #### L IPID, TSH, T7, URIC, CMP #### [facility] [address] [place] [address] Dr. Conor Chan EGFR-AF [place] >60 Normal >=60 [facility] Comment on above: Performed By: #### L IPID, TSH, T7, URIC, CMP #### [facility] [address] [place] [address] Dr. Conor Chan EGFR-NON AF [place] >60 Normal >=60 [facility] Comment on above: Performed By: #### L IPID, TSH, T7, URIC, CMP #### [facility] [address] [place] [address] Dr. Conor Chan Globulin (S) [Mass/Vol] 4.2 g/dL Normal [facility] Comment on above: Performed By: #### L IPID, TSH, T7, URIC, CMP #### [facility] [address] [place] [address] Dr. Conor Chan Glucose [Mass/Vol] 122 mg/dL Critically high 74-106 [facility] Comment on above: Performed By: #### L IPID, TSH, T7, URIC, CMP #### [facility] [address] [place] [address] Dr. Conor Chan Potassium [Moles/Vol] 3.2 mmol/L Critically low 3.4-5.0 [facility] Comment on above: Performed By: #### L IPID, TSH, T7, URIC, CMP #### [facility] [address] [place] [address] Dr. Conor Chan Protein [Mass/Vol] 7.9 g/dL Normal 6.1-8.2 [facility] Comment on above: Performed By: #### L IPID, TSH, T7, URIC, CMP #### [facility] [address] [place] [address] Dr. Conor Chan Sodium [Moles/Vol] 130 mmol/L Critically low 137-145 [facility] Comment on above: Performed By: #### L IPID, TSH, T7, URIC, CMP #### [facility] [address] [place] [address] Dr. Conor Chan Urea nitrogen [Mass/Vol] 15.0 mg/dL Normal 9.0-20.0 [facility] Comment on above: Performed By: #### L IPID, TSH, T7, URIC, CMP #### [facility] [address] [place] [address] Dr. Conor Chan Urea nitrogen/Creatinine [Mass ratio] 14.4 mg/mg Normal [facility] Comment on above: Performed By: #### L IPID, TSH, T7, URIC, CMP #### [facility] [address] [place] [address] Dr. Conor Chan TSHon 12-20-2021 TSH 2.122 uIU/mL Normal 0.470-4.[address] [facility] Comment on above: Performed By: #### L IPID, TSH, T7, URIC, CMP #### [facility] [address] [place] [address] Dr. Conor Chan TSH RANGE SEE BELOW Normal [facility] Comment on above: Result Comment: <0.3 4 UIU/ml HYPERTHYROID 0.34-5.60 UIU/ml EUTHYROID >5.60 UIU/ml HYPOTHYROID Performed By: #### L IPID, TSH, T7, URIC, CMP #### [facility] [address] [address] [address] Conor Chan URIC ACID SERUMon 12-20-2021 Urate [Mass/Vol] 7.3 mg/dL Normal 3.5-8.5 [facility] Comment on above: Performed By: #### L IPID, TSH, T7, URIC, CMP #### [facility] [address] [address] [address] Conor Chan XR LSPINE MIN 4 [...] by: OSCAR FRANCO Date: 2021-12-20 10:06 Normal [facility] Vital Signs Date Time Vital Sign Value Performing Clinician Idalmis rausch 2023 08:03-0400 Body height 182.9 cm Bilal Butt Work Phone: [facility] 2023 08:03-0400 Body weight 120.2 kg Bilal Butt Work Phone: [facility] 06-02-2023 13:26-0400 Body height 182.9 cm Darren Harris APRN.[employer]KER Work Phone: [facility] [facility] 06-[facility]-2023 13:26-0400 Body weight 117.03 kg Darren Harris APRN.PATTERN AND CHAIN MAKER Work Phone: [facility] 06-02-2023 13:26-0400 Diastolic blood pressure 84 mm[Hg] Darren Harris APRN.KIRILL Work Phone: [facility] 06-02-2023 13:26-0400 Heart rate 63 /min Darren Harris APRN.KIRILL Work Phone: [facility] 08-07-2023 13:26-0400 Respiratory rate 18 /min Darren Clara WRITER EDITOR.PATTERN AND CHAIN MAKER Work Phone: [facility] 06-02-2023 13:26-0400 SaO2% (BldA) [Mass fraction] 95 % Darren Harris WRITER EDITOR.PATTERN AND CHAIN MAKER Work Phone: [facility] 06-02-2023 13:26-0400 Systolic blood pressure 128 mm[Hg] Darren Clara WRITER EDITOR.PATTERN AND CHAIN MAKER Work Phone: [facility] 05-13-2023 11:22-0400 Body height 182.88 cm Avi Lauren Hoy Work Phone: [facility] DO Work Phone: 05-13-2023 11:22-0400 Body mass index (BMI) [Ratio] 36.21 kg/m2 Avi M Hoy Work Phone: [facility] 250 DO Work Phone: 05-13-2023 11:22-0400 Body surface area Derived from formula 2.41 m2 Avi Lauren Hoy Work Phone: [facility] 250 DO Work Phone: 05-13-2023 11:22-0400 Body weight 121.11 kg Avi M Hoy Work Phone: [facility] 250 DO Work Phone: 05-13-2023 11:22-0400 Diastolic blood pressure 78 mm[Hg] Avi M Hoy Work Phone: [facility] DO Work Phone: 05-13-2023 11:22-0400 Heart rate 64 /min Avi M Hoy Work Phone: [facility] DO Work Phone: 05-13-2023 11:22-0400 Systolic blood pressure 132 mm[Hg] Avi M Hoy Work Phone: [facility] DO Work Phone: 05-07-2022 11:36-0400 Body height 182.88 cm Avi M Hoy Work Phone: [facility] DO Work Phone: 05-07-2022 11:36-0400 Body mass index (BMI) [Ratio] 38.38 kg/m2 Avi M Hoy Work Phone: [facility] DO Work Phone: 05-07-2022 11:36-0400 Body surface area Derived from formula 2.47 m2 Avi M Hoy Work Phone: [facility] DO Work Phone: 05-07-2022 11:36-0400 Body weight 128.37 kg Avi M Hoy Work Phone: [facility] DO Work Phone: 05-07-2022 11:36-0400 Diastolic blood pressure 72 mm[Hg] Avi M Hoy Work Phone: [facility] DO Work Phone: 05-07-2022 11:36-0400 Heart rate 66 /min Avi M Hoy Work Phone: [facility] DO Work Phone: 05-07-2022 11:36-0400 Systolic blood pressure 110 mm[Hg] Avi M Hoy Work Phone: [facility] DO Work Phone: Encounters Encounter Date Encounter Type Care Provider Facility Start: 2023 End: 2023 ambulatory JUAN R BEY Facility:[facility] Start: 2023 End: 2023 Office outpatient new 30 minutes Juan R Bey MD Work Phone: [facility] Comment on above: Meralgia paresthetic a of left side (Primary Dx); Chronic midline low back pain without sciatica Start: 08-01-2023 End: 08-01-2023 ambulatory Darren Harris WRITER EDITOR.PATTERN AND CHAIN MAKER Work Phone: [facility] Comment on above: Dr chong Cut me open Start: 07-01-2023 End: 07-01-2023 ambulatory JESSICA CAMP Facility:[facility] Start: 06-26-2023 Telephone encounter Jessica Camp DO Work Phone: [facility] Comment on above: Preparations For Pro cedures (Pre-injection instructions) Start: 06-19-2023 Orders Only Jessica hall DO Work Phone: Neurology Comment on above: Lumbar radiculopathy (Primary Dx); Displacement of lumbar intervertebral disc without myelopathy Start: 06-02-2023 End: 06-03-2023 ambulatory DARREN HARRIS Facility:[facility] Start: 06-02-2023 End: 06-02-2023 Patient encounter procedure Darren Harris WRITER EDITOR.PATTERN AND CHAIN MAKER Work Phone: [facility] Comment on above: Radiculopathy, lumba r region (Primary Dx); Lumbar disc herniation Start: 05-13-2023 Office outpatient vi sit 25 minutes Avi Cervantes Work Phone: [facility] DO Work Phone: Start: 05-13-[address] Reilly Nelson II Facility: Start: 05-06-2023 Chart abstracting None (Historical) Neurology Start: 12-16-2022 Rx Renewal Avi Cervantes Work Phone: [facility] DO Work Phone: Start: 07-17-2022 End: 07-17-2022 ambulatory Bijan Betts Jr Facility:[facility] Start: 07-17-2022 End: 07-17-2022 Departed Referred MD Avi Cervantes Work Phone: [facility] 250 Start: 05-07-2022 Office outpatient vi sit 25 minutes Avi Cervantes Work Phone: [facility] 250 DO Work Phone: Start: 01-03-[address] AVI CERVANTES Facility :[facility] Start: 12-21-2021 Encounter for genera l adult medical examination without abnormal findings DR AVI CERVANTES [facility] Start: 12-20-2021 End: 12-21-[address] AVI CERVANTES Facility:[facility] Start: 12-20-2021 End: 12-21-2021 Encounter for general adult medical examination without abnormal findings DR AVI CERVANTES Facility:[facility] Start: 12-10-2021 Rx Renewal Reilly mcmahon MD Work Phone: [facility] 250 DO Work Phone: Procedures Date Procedure Procedure Detail Performing Clinician Start: 07-17-2022 Radiologic examinati on of knee MD Avi Cervantes Work Phone: Start: 12-20-[address] RONDA CERVANTES Comment on above: Performed By: #### P [facility] #### [facility] [address] [place] [address] Dr. Conor Chan Start: 06-09-2020 Total colonoscopy Chaz Nelson MD Work Phone: Start: 07-02-2019 Colonoscopy Darren harris APRN.PATTERN AND CHAIN MAKER Work Phone: Cardiac catheterization Will renetta Nelson MD Work Phone: Cholecystectomy Reilly miranda MD Work Phone: Plan of Treatment Date Care Activity Detail Author Start: 12-20-2026 PROSTATE CANCER SCREENING DISCUSSION PROSTATE CANCER SCREENING DISCUSSION [facility] Start: 06-27-2023 Influenza vaccination C [facility] Start: 05-13-2023 FUV, Provider: Reilly Nelson, Status: Pen, Time: 11:10 AM FUV, Provider: Reilly Nelson, Status: Pen, Time: 11:10 AM [facility] 250 DO Work Phone: Start: 10-27-2022 DEPRESSION ASSESSMENT DEPRESSION ASS ESSMENT [facility] Start: 05-17-2022 COVID-19 VACCINE (6 - Pfizer series) COVID-19 VACCINE (6 - Pfizer series) [facility] Start: 05-15-2022 FUV, Provider: Reilly Nelson, Status: Pen, Time: 2:00 PM FUV, Provider: Reilly Nelson, Status: Pen, Time: 2:00 PM [facility] DO Work Phone: Start: 07-02-2020 Colonoscopy COLONOSCOPY [facility] Start: 07-02-2020 COLORECTAL CANCER SCREENING COLORECTAL CANCER SCREENING [facility] Start: 2016 Prostate Cancer Screening Discussion Prostate Cancer Screening Discussion [facility] Start: 2011 SHINGRIX VACCINE (1 of 2) SHINGRIX VACCINE (1 of 2) [facility] Start: 2006 COLOGUARD (FIT-DNA) COLOGUARD (FIT-D NA) [facility] Start: [address] COLONOGRAPHY [facility] Start: 2006 DIABETES SCREEN DIABETES SCREEN [facility] Start: 2006 Diabetes Screening Diabetes Screenin g [facility] Start: 2006 FECAL OCCULT BLOOD FECAL OCCULT BLOO D [facility] Start: 2006 SIGMOIDOSCOPY SIGMOIDOSCOPY [facility] Start: 1996 Lipid 1996 panel - S hayden or Plasma Lipid Screening [facility] Start: 1996 LIPID SCREEN LIPID SCREEN [facility] Start: 1980 Urine microalbumin profile [facility] Start: 1979 HEPATITIS C SCREENING HEPATITIS C SC REENING [facility] Start: 1979 HIV SCREENING HIV SCREENING [facility] End: 09-02-2024 Radex spine lumbosacral minimum 4 views XR LUMBAR MOTION 4V AP/LAT/ FLEX/EXT Radiology Routine Meralgia paresthetica of left side 1 Occurrences starting 2023 until 09/02/2024 [facility] Work Phone: Comment on above: 1 Occurrences starti ng 2023 until 09/02/2024 SPINE INTERVENTION PROCEDURE SPINE INTERVENTION PROCEDURE Procedures Routine Radiculopathy, lumbar region Lumbar disc herniation Ordered: 06/02/2023 [facility] Work Phone: Comment on above: Ordered: 06/02/2023 [facility] RACHAEL [facility] Immunizations Immunization Date Immunization Notes Care Provider Deepa rehman 10-14-2022 Pfizer COVID-19 Vac Bivalent 30 MCG/0.3ML Intramuscular Suspension Avi M Hoy Work Phone: [facility] DO Work Phone: 10-03-2022 influenza, injectabl e, quadrivalent, preservative free Avi M Hoy Work Phone: [facility] 250 DO Work Phone: 10-03-2022 influenza virus vacc ine, unspecified formulation Darren Harris APRN.PATTERN AND CHAIN MAKER Work Phone: [facility] 03-22-2022 Comirnaty 30 MCG/0.3 ML Intramuscular Suspension Avi M Hoy Work Phone: [facility] DO Work Phone: 03-22-2022 Moderna COVID-19 Vac cine 100 MCG/0.5ML Intramuscular Suspension Avi M Hoy Work Phone: [facility] Comment on above: Series: 03-22-2022 zoster vaccine recombinant Avi M Hoy Work Phone: [facility] DO Work Phone: 09-03-2021 Pfizer-BioNTech COVI D-19 Vacc 30 MCG/0.3ML Intramuscular Suspension Avi M Hoy Work Phone: [facility] 08-25-2021 influenza, injectabl e, quadrivalent, preservative free Avi M Hoy Work Phone: [facility] DO Work Phone: 08-25-2021 zoster vaccine recombinant Avi M Hoy Work Phone: [facility] 250 DO Work Phone: 02-13-2021 Pfizer-BioNTech COVI D-19 Vacc 30 MCG/0.3ML Intramuscular Suspension Avi Cervantes Work Phone: [facility] 01-13-2021 Pfizer-BioNTech COVI D-19 Vacc 30 MCG/0.3ML Intramuscular Suspension Avi Cervantes Work Phone: [facility] 12-23-2020 Pfizer-BioNTech COVI D-19 Vacc 30 MCG/0.3ML Intramuscular Suspension Avi Cervantes Work Phone: [facility] 08-28-2020 influenza, injectabl e, quadrivalent, preservative free Avi Cervantes Work Phone: [facility] DO Work Phone: 08-28-2020 influenza virus vacc ine, unspecified formulation Juan R Bey MD Work Phone: [facility] Payers Date Payer Category Payer Self-pay [id number] [phone] [id number] 2021 Private Health Insurance [employer] A ETNA POS [id number] 2021-Present [phone] [address] [place] [address] POS [id number] 1961 Unknown [id number] 1961 Unknown [id number] 1961 Unknown [id number] 1959 Private Health Insurance [id number] 1958 Self-pay [id number] Unknown Unknown [facility] [id number] Unknown [id number] Social History Date Type Detail Facility Start: 06-02-2023 End: 08-01-2023 Consumes alcohol Consumes alcohol [facility] Comment on above: socially; occasional; Start: 09-28-2020 End: 06-02-2023 Tobacco smoking status NHIS Never smoked tobacco (finding) [facility] Start: 1960 Sex Assigned At Male F [facility] Tobacco smoking stat NHIS Tobacco smoking consumption unknown [facility] Start: 1960 Sex Assigned At Not on file C [facility] Start: 06-02-2023 End: 08-01-2023 Gender identity Not on file [facility] Start: 06-02-2023 Tobacco use and exposure Smokeless tobacco non-user [facility] National Score (1-10 0), lower number is lower risk 61 [facility] Start: 07-28-2023 Gender identity Identifies as male gender (finding) [facility] Start: 07-28-2023 Sexual orientation Heterosexual (fin ding) [facility] Clinical Notes 05-06-2023 to 2023 Juan R Bey MD - 2023 8:40 AM EDTPBossman Brian - 2023 7:48 AM EDTTelephone Encounter - Oscar Rollins LPN - 06/26/2023 9:12 AM EDT Note Date & Type Note Facility 2023 Note HNO ID: [id number] Author: Juan R Bey MD Service: ? Author Type: Physician Type: Progress Notes Filed: 2023 9:14 AM Note Text: SPINE SURGERY NEW PATIENT This is an in-person visit. PCP: Avi Cervatnes MD REFERRING PROVIDER: Clara PACHECO SUBJECTIVE HISTORY [...] issues. 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 2023 Note HNO ID: [id number] Author: Bossman Saunders Service: ? Author Type: [...] opioids Medications: See medication reconciliation list in [facility] MEDICATIONS: Gabapentin, Kohler, Tylenol Have you ever seen a pain [...] or completing routine daily living activities? No [facility] 2023 History of Presen t illness Narrative [...] issues. 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 Author Type: Nurse Practitioner Type: Progress Notes Filed: 08/01/2023 1:30 PM Note Text: SPINE SURGERY ESTABLISHED VISIT This is a virtual visit using [employer] Video Visit. It required patient-provider interaction for the medical decision making as documented below. DATE OF SERVICE: 08/01/2023 DATE OF LAST VISIT: 06/02/2023 SUBJECTIVE: HPI:Kim Nichols is a 62 year old male presenting via virtual vist s/p Left L5 transforaminal epidural steroid injection on 07/01/[address] Camp[address] Kenefic great initially and for the first few [...] which included preparing to see the patient, [id number] patient care, completing clinical documentation, obtaining and/or reviewing separately obtained history, performing a medically appropriate examination, counseling and educating the patient/family/caregiver, independently interpreting results (not separately reported), and communicating results to the patient/family/caregiver. SIGNATURE: Darren Harris APRN.KIRILL PATIENT NAME: Kim Nichols DATE: August 01, 2023 TIME: 12:53 PM PAGER: [facility] 06-26-2023 Miscellaneous Notes Phoned patient and message left for Kim to confirm appointment for Kim Nichols for spine procedure on 07/01/2023. Patient notified that [place] will call patient the night before with the time to arrive for injection. Patient verbalized understanding of the following: -Provided education on spine procedure and answered questions related to spine injection procedure. -Laboratory [facility] is needed to drive patient home. -NPO [...] to report. Diabetic: No Patient given number [phone], spine injections schedulers, if there is any [...] POST INJECTION INSTRUCTIONS documented in this encounter [facility] 06-02-2023 Note HNO ID: [id number] Author: Darren Harris APRN.PATTERN AND CHAIN MAKER Service: ? Author Type: Nurse Practitioner Type: [...] with him pain. He also is prescribed Kohler for breakthrough pain which he only takes [...] REVIE (more content not included)... [facility] 06-02-2023 History of Presen t illness Narrative [...] with him pain. He also is prescribed Kohler for breakthrough pain which he only takes [...] which included preparing to see the patient, [id number] patient care, completing clinical documentation, obtaining and/or reviewing separately obtained history, performing a medically appropriate examination, counseling and educating the patient/family/caregiver, independently interpreting results (not separately reported), and communicating results to the patient/family/caregiver. SIGNATURE: Darren Harris APRN.CNP PATIENT NAME: Kim Nichols DATE: June 02, 2023 TIME: 1:57 PM PAGER: documented in this encounter [facility] 05-14-2023 Note HNO ID: [id number] Author: Ember Delatorre PA-C Service: ? Author Type: Physician Building Operator Type: Progress Notes Filed: 05/14/2023 4:17 PM Note Text: Per Triage: Kim Nichols is a 62 year old male that requests evaluation of lumbar spine. Per review, they have symptoms of back and LLE pain. Positive for numbness. CMT: Medication: Gabapentin, Tylenol, Kohler Studies (Reports unless indicated) MRI Lumbar: L4/5 moderate left foramen narrowing which may contribute to patient's symptoms 2. L5/S1 disc protrusion without significant canal or foramen narrowing. Disposition: Please schedule with surgical SANDY. Consider if injection is appropriate or on effective dose of Neurontin. Also see if symptoms correlate with imaging. [facility] 05-14-2023 History of Presen t illness Narrative Per Triage: Kim Nichols is a 62 year old male that requests evaluation of lumbar spine. Per review, they have symptoms of back and LLE pain. Positive for numbness. CMT: Medication: Gabapentin, Tylenol, Kohler Studies (Reports unless indicated) MRI Lumbar: L4/5 [...] Health Provider or Pain Management Provider at [facility]? No If answer is YES please [...] facility where the MRI/CT/myelogram was completed: [facility] [address] [place] [address] MRI/CT/myelogram viewable in Epic: No If not, please provide [phone] to fax in imaging reports for review. [...] Additional Comments Hydrocodone documented in this encounter [facility] 05-06-2023 Note HNO ID: [id number] Author: Mauricio Kelley Service: ? Author Type: ? Type: Progress Notes Filed: 05/14/2023 4:17 PM Note Text: Patient name: Kim Nichols Are you being referred by a [place] for Spine Health Provider or Pain Management Provider at [facility]? No If answer is YES please [...] facility where the MRI/CT/myelogram was completed: The [address] [address] MRI/CT/myelogram viewable in Epic: No If not, please provide [phone] to fax in imaging reports for review. [...] was completed: Additional Comments Hydrocodone [facility] Evaluation note No assessment inform ation [facility] Work Phone: Evaluation note Diagnosis Radiculopathy, lumbar region- Primary Thoracic or lumbosacral neuritis or radiculitis, unspecified Lumbar disc herniation Displacement of lumbar intervertebral disc without myelopathy [facility] Diagnosis Lumbar radiculopathy- Primary Thoracic or lumbosacral neuritis or radiculitis, unspecified Displacement of lumbar intervertebral disc without myelopathy [facility] Diagnosis Meralgia paresthetica of left side- Primary Meralgia paresthetica Chronic midline low back pain without sciatica documented [facility] this [facility] Present illness NarrativePatient returns in [...] to their favorable impact on blood pressure andcholesterol.-[facility] DO Work Phone: History of [...] to call if they arise or occur. -[facility] [employer] DO Work Phone: History of Present illness [...] to call if they arise or occur. [facility] [employer] DO Work Phone: Reason for referral (narrative)* Diagnostic Procedure Only (Routine) - Pending Review Specialty Diagnoses / Procedures Referred By Contac t Referred To Contact XR IMAGING Diagnoses Meralgia paresthetica of left side Procedures XR LUMBAR MOTION 4V AP/LAT/ FLEX/EXT RADEX SPINE LUMBOSACRAL MINIMUM 4 VIEWS Juan R Bey MD [address] [place] [address] [place] [address] Referral ID Status Reason Start Date Expiration Date Visits Requested Visits Authorized [id number] Pending Review Auto-Generat ed Referral 2023 09/02/2024 1 1 [facility] Summary Purpose Family History No Family [...] and content) DATE CREATED AUTHOR 01/05/2022 [facility] DATE CREATED AUTHOR AUTHOR'S ORGANIZ ATION 07/28/2022 [facility] DATE CREATED AUTHOR AUTHOR'S ORGANIZ ATION 05/14/2023 [facility] DATE CREATED AUTHOR AUTHOR'S ORGANIZ ATION 05/14/2023 [employer] DATE CREATED AUTHOR AUTHOR'S ORGANIZ ATION 2023 [facility] DATE CREATED AUTHOR AUTHOR'S ORGANIZ ATION 08/05/2023 [facility] l Care Teams (unrecognized sec tion and content) Team Status: Inactive Member Role Status Dates Avi Cervantes MD Primary Care Provider Active Bijan Betts Jr, DO Attending Provider Active Team Status: Active Member Role Status Dates Avi Cervantes MD Primary Care Provider Active [employer] Code Enforcement Officer Relationship Specialty Start Date End Date Avi Cervantes MD [address] [place] [address] Referring Family Medicine 04/24/23 [employer] Code Enforcement Officer Relationship Specialty Start Date End Date Avi Cervantes MD [address] [place] [address] Referring Family Medicine 04/24/23 [employer] Code Enforcement Officer Relationship Specialty Start Date End Date Avi Cervantes MD [address] [place] [address] Referring Family Medicine 04/24/23 [employer] Code Enforcement Officer Relationship Specialty Start Date End Date Avi Cervantes MD [address] [facility] [address] PCP - General Family Medicine 06/25/23 Avi Cervantes MD [address] [facility] [place] [address] Referring Family Medicine 04/24/23 [employer] Code Enforcement Officer Relationship Specialty Start Date End Date Avi Cervantes MD [address] [place] [address] PCP - General Family Medicine 06/25/23 Avi Cervantes MD [address] [place] [address] Referring Family Medicine 04/24/23 [employer] Code Enforcement Officer Relationship Specialty Start Date End Date Avi Cervantes MD [address] [place] [address] PCP - General Family Medicine 06/25/23 Avi Cervantes MD [address] [place] [address] Referring Family Medicine 04/24/23 Goals (unrecognized section [...] or prosecute any alcohol or drug abuse patient.[facility] the event this information is protected by the Federal Confidentiality of Alcohol and Drug Abuse Patient Records regulations: The Federal rules restrict any use of the information to criminally investigate or prosecute any alcohol or drug abuse patient.[facility] the event this information is protected by the Federal Confidentiality of Alcohol and Drug Abuse Patient Records regulations: The Federal rules restrict any use of the information to criminally investigate or prosecute any alcohol or drug abuse patient.[facility] the event this information is protected by the Federal Confidentiality of Alcohol and Drug Abuse Patient Records regulations: The Federal rules restrict any use of the information to criminally investigate or prosecute any alcohol or drug abuse patient.[facility] the event this information is protected by the Federal Confidentiality of Alcohol and Drug Abuse Patient Records regulations: The Federal rules restrict any use of the information to criminally investigate or prosecute any alcohol or drug abuse patient.[facility] the event this information is protected by the Federal Confidentiality of Alcohol and Drug Abuse Patient Records regulations: The Federal rules restrict any use of the information to criminally investigate or prosecute any alcohol or drug abuse patient.[facility] [facility] Reason for Visit (unrecogniz ed section [...] BE BASED ON THE PRIMARY CLINICAL RECORDS. [facility] [employer] [facility]. provides no warranty or guarantee of the accuracy or completeness of information in this document.
[2024-05-26] MEDS: REGADENOSON 0.4 MG/5 ML SYRINGE IV (07:54)
--- NOTE | 2024-05-26 08:13 | PC.NURSE ---
Nursing Note Cardiac Stress Test Reviewed: Medication, allergies and patient history reviewed. Stress Test: [x ] Patient tolerated stress test well. [ ] Patient unable to tolerate walking on treadmill. Switched to Lexiscan stress test. [x ] No chest pain noted per patient [ ] Chest pain that resolved prior to leaving stress lab. [x ] No dyspnea noted. [ ] Dyspnea that resolved prior to leaving stress lab. [ x] Patient left stress lab asymptomatic and hemodynamically stable. [ ] Patient taken to the Emergency Room due to non-resolving symptoms following stress test. [ ] Patient achieved target heart rate. [ ] Patient unable to achieve target heart rate. [ ] Aminophylline administered as reversal agent to Lexiscan (Regadenoson). [ ] Nitro administered. Nursing Comments:Pt had Lexiscan done and tolerated well. No issues noted. Pt ambulated with staff to cafeteria for breakfast.
--- NOTE | 2024-05-26 15:16 | P.STRESS_ITS ---
Stress Test Stress Test Allergies Allergy/AdvReac Type Severity Reaction Status Date / Time amoxicillin Allergy Intermediate Rash Verified 05/07/24 12:08 Requesting physician: Jason Cervantes Procedure: Lexiscan Cardiolite stress test General Information: Reason for Stress Test: Atrial fibrillation Cardiac History and Risk Factors: Father and sister had [place] Resting 12 - Lead Electrocardiogram: Rate & rhythm: Normal sinus at a rate of 68. [place]: Normal T-waves: Normal ST-segments: Normal Stress Test: Protocol: Lexiscan protocol was initiated with injection of 0.4mg Lexiscan IV push followed by Cardiolite. Blood pressure: Initial and Maximum: 132/88 Rate & rhythm: Patient remained in sinus rhythm during the exercise and recovery portions of the study.? The maximum heart rate was 93, which was 58% of the maximum predicted heart rate. ST-segments & T-waves: There were no T-wave changes and no ST-segment changes when compared to the baseline EKG. Patient response/symptoms: There were no symptoms similar to the chief complain t. Interpretation: Normal Lexiscan stress test without electrocardiographical evidence of ischemia. Cardiolite imaging interpretation will be reported separately. Clinical correlation required.?
== END 2024-05-26 07:08 | disposition home or self-care (01) ==
LOC: CARD 07:07
PROVIDERS: PCP Family Medicine; Visit Provider Family Medicine
DX: I48.91 Unspecified atrial fibrillation (principal); R07.9 Chest pain, unspecified; R06.00 Dyspnea, unspecified
CPT/HCPCS: 93017; J2785

== ENCOUNTER 2024-05-27 11:44 | Outpatient (OUT) | payer OTHER, SELFPAY ==
--- OUTSIDE RECORDS SUMMARY | 2024-05-27 11:53 | XMS_ITS | CCD ---
Author Organization [facility] Care Team Providers Care Credit Card Control Clerk Name Role Phone Unavailable Unavailable DR AVI CERVANTES Attending Unavailable MARLENI, DR CÁRDENAS Admitting Unavailable MARLENI, DR CÁRDENAS Attending Unavailable DR AVI CERVANTES Admitting Unavailable DR AVI CERVANTES Consulting Unavailable WEST, DR OSCAR Ingram Consulting Unavailable Avi Cervantes Unavailable MD Avi Cervantes Primary Care Provider [phone] DO Bijan Betts Jr Attending Provider [phone] Bijan Betts Jr Attending Unavailable Bijan Betts [...] Translations: [amoxicillin] Drug Allergy 09-26-2020 Judith Beck [facility] (1 source) Amoxicillin Drug Allergy [facility] (1 source) traMADol Drug Allergy [facility] (1 source) Amoxicillin Drug Allergy 09-26-2020 [facility] Repository Medications Current Medications Medication Drug Class(es) [...] P O Q6H September 26, 2020 1:00am Howells 5-325 MG T ABS TAKE 1 TABLET [...] [Coronary atherosclerosis of unspecified type of vessel, [place] or graft] Chronic Diabetes mellitus without complication [...] CNOV Office Visit (SPSLUH ) KIM NICHOLS ([id number]) 1960 M Date Time Provider Department 08/04/23 8:00 AM JUAN R BEY [facility] During your visit today, we recorded [...] Medications: See medication reconciliation list in [facility] MEDICATIONS: Gabapentin, Howells, Tylenol Have you ever seen a pain [...] issues. 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 [facility] 07-08-2023 [facility] Telephone (SPNMMN) KIM NICHOLS ([id number]) 1960 M Date Time Provider Department 07/08/23 JESSICA CAMP [facility] During your visit today, we recorded the following information about you: Stacy Gallagher RN 07/08/2023 12:56 PM Signed Post Spine Injection phone call: [phone] on 07/08/23 Patient denies fever, chills, new [...] appointment 2-4 weeks post procedure by calling [phone] Patient does not have any questions or [...] Status:Closed by STACY GALLAGHER on 07/08/23 [facility] HISTORY PHYSICALon HISTORY PHYSICAL HNO ID: [id number] Author: Sherice Galvin APRN.PICK PULLING MACHINE TENDER Service: ? Author Type: Nurse Practitioner Type: [...] July 01, 2023 TIME: 9:04 AM [facility] OPERATIVE NOon 07-01-2023 OPERATIVE NO HNO ID: [id number] Author: Jessica Camp DO Service: Physical Medicine AND Rehabilitation Author Type: Physician Type: Operative Report Filed: 07/01/2023 9:40 AM Note Text: PROCEDURE REPORT Surgery/Procedure Date: July 01, 2023 Interventionalist: Jessica Camp DO Procedure(s): Left L5 transforaminal epidural steroid injection Pre-Op/Pre-Procedure Diagnosis: Lumbar radiculopathy Post-Op Diagnosis: same SUBJECTIVE: Kim Nichols is a 62 year old male, who presents to the [facility] for a left L5 transforaminal epidural steroid injection. This is his first (1) procedure. 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 Pain is central [...] in stable condition. Jessica [facility] DO [facility] KIM NICHOLS ([id number]) 1960 M Date Time Provider Department 06/26/[address] [facility] During your visit today, we recorded the following information about you: Oscar Rollins LPN 06/26/2023 9:20 AM Signed Phoned patient and message left for Kim to confirm appointment for Kim Sureshjamal for spine procedure on 07/01/2023. Patient notified that [facility] will call patient the night before with the time to arrive for injection. Patient verbalized understanding of the following: -Provided education on spine procedure and answered questions related to spine injection procedure. -Design Painter is needed to drive patient home. -NPO [...] to report. Diabetic: No Patient given number [phone], spine injections schedulers, if there is any [...] by OSCAR ROLLINS on 06/26/23 [facility] [place] 06-02-2023 CNOV Office Visit (SPNSMN ) KIM NICHOLS ([id number]) 1960 M Date Time Provider Department 06/02/23 [...] with him pain. He also is prescribed Howells for breakthrough pain which he only takes [...] well de (more content not included)... [facility] Office Visit (Cardiology)on 05-13-2023 Follow-up visit Diagnoses/Problems Assessed Coronary disease (414.00) (I25.10) Essential hypertension, benign (401.1) (I10) Hyperlipidemia (272.4) (E78.5) Class 2 obesity with body mass index (BMI) of 36.0 to 36.9 in adult (278.00,V85.36) (E66.9,Z68.36) Never a smoker Orders Class 2 obesity with body mass index (BMI) of 36.0 to 36.9 in adult Healthy Weight Tips; Status:Complete - Retrospective Authorization; Done: [id number] Some eating tips that can help you lose weight.; Status:Complete - Retrospective Authorization; Done: [id number] Coronary disease, Hyperlipidemia Renew: Aspirin EC Low Dose 81 MG Oral Tablet Delayed Release; TAKE 1 TABLET DAILY DIRECTED Hyperlipidemia Renew: Rosuvastatin Calcium 20 MG Oral Tablet; take 1 tablet by mouth at bedtime SocHx: Never a smoker Tobacco Use Screening; Status:Complete; Done: [id number] Patient Instructions Please bring all medicines, vitamins, [...] MG Oral CapsuleTAKE 1 CAPSULE TWICE DAILY. Howells 5-325 MG TABSTAKE 1 TABLET EVERY 4 [...] negative for complaint. Vitals Vital Signs Recorded: [id number] 11:22AM Heart Rate64, R Radial Gmjlhgbx322, RUE, Sitting Jvjwxcpbr23, RUE, Sitting Height6 ft Kpgjfc379 lb BMI Nuqvrppkhm69.21 kg/m2 BSA Calculated2.41 Tobacco Useb) No PHQ-2 [...] Screening.on 023 Adult depression screening assessment No [facility] [address] DO Work Phone: Tobacco use status CPHS b) No [facility] DO Work Phone: XR knee LT 4V*on 07-17-2022 XR knee LT 4V* [facility] [place] [address] [place] [address] XRay Report Signed Patient: Kim Nichols MR#: [id number] : 1960 Acct:[id number] Age/Sex: 61 / M ADM Date: 07/17/22 Loc: [place] Room: Type: [facility] Attending Dr: Bijan Betts Jr, DO [...] Stacy Ellis M.D.07/17/2022 1:18 PM Dictation Location: [place] [address] Transcribed By: [facility] 07/17/22 1318 Dictated By: Stacy Ellis MD 07/17/22 1315 Signed By: 07/17/22 1318 [facility] Tobacco Screening.on 022 Adult depression screening assessment No [facility] 250 DO Work Phone: Fall risk assessment c) Not medically indicated [facility] DO Work Phone: Tobacco use status CPHS b) No [facility] DO Work Phone: H PYLORI ANTIBODY IGGon 11-28 H. PYLORI IGG ABS 0.45 Index Value Normal 0.00-0.79 [facility] Comment on above: Result Comment: Nega tive <0.80 Equivocal 0.80 - 0.89 Positive >0.89 Performed By: #### L IPID, TSH, T7, URIC, CMP #### [facility] [address] [address] [address] Conor Chan INSULINon 12-21-2021 Insulin 55.2 uIU/mL Critically high 2.6-24.9 [facility] Comment on above: Performed By: #### I NSULIN #### [facility] [address] [address] [address] Conor Chan TESTOSTERONE, TOTALon 2021 Testosterone [Mass/Vol] 380 ng/dL Normal 264-916 [facility] Comment on above: Result Comment: Adul t male reference interval is based on a population of healthy nonobese males (BMI <30) between 19 and 39 years old. Travon, et.al. JCEM 2017,102;2521-3506. PMID: [id number]. Performed By: #### L IPID, TSH, T7, URIC, CMP #### [facility] [address] [place] [address] Dr. Conor Chan CBC AUTO DIFFon 12-20-2021 BASO # 0.0 103/ul Normal 0.0-0.1 [facility] Comment on above: Performed By: #### C BC #### [facility] [address] [place] [address] Dr. Conor Chan Basophils/100 WBC (Bld) 0.5 % Normal 0.2-2.0 [facility] Comment on above: Performed By: #### C BC #### [facility] [address] [place] [address] Dr. Conor Chan EO # 0.2 103/ul Normal 0.0-0.7 [facility] Comment on above: Performed By: #### C BC #### [facility] [address] [place] [address] Dr. Conor Chan Eosinophils/100 WBC (Bld) 3.5 % Normal 0.9-7.0 [facility] Comment on above: Performed By: #### C BC #### [facility] [address] [place] [address] Dr. Conor Chan Erythrocyte distribution width (RBC) [Ratio] 13.8 % Normal 11.0-15.0 [facility] Comment on above: Performed By: #### C BC #### [facility] [address] [place] [address] Dr. Conor Chan Hematocrit (Bld) [Volume fraction] 48.5 % Normal 42.0-54.0 [facility] Comment on above: Performed By: #### C BC #### [facility] [address] [place] [address] Dr. Conor Chan Hemoglobin (Bld) [Mass/Vol] 16.3 g/dL Normal 14.0-18.0 [facility] Comment on above: Performed By: #### C BC #### [facility] [address] [place] [address] Dr. Conor Chan IG # 0.02 10e3/ul Normal 0.00-0.03 [facility] Comment on above: Performed By: #### C BC #### [facility] [address] [place] [address] Dr. Conor Chan IG % 0.3 % Normal 0.0-0.5 [facility] Comment on above: Performed By: #### C BC #### [facility] [address] [place] [address] Dr. Conor Chan LYMPH # 1.4 103/ul Normal 1.2-3.8 [facility] Comment on above: Performed By: #### C BC #### [facility] [address] [address] [address] Conor Chan Lymphocytes/100 WBC (Bld) 21.7 % Normal 20.5-60.0 [facility] Comment on above: Performed By: #### C BC #### [facility] [address] [place] [address] Dr. Conor Chan MANUAL DIFF REQ NO Normal [facility] Comment on above: Performed By: #### C BC #### [facility] [address] [place] [address] Dr. Conor Chan MCH (RBC) [Entitic mass] 28.5 pg Normal 25.9-34.0 [facility] Comment on above: Performed By: #### C BC #### [facility] [address] [place] [address] Dr. Conor Chan MCHC (RBC) [Mass/Vol] 33.6 g/dL Normal 29.9-35.2 [facility] Comment on above: Performed By: #### C BC #### [facility] [address] [place] [address] Dr. Conor Chan MCV (RBC) [Entitic vol] 84.9 fL Normal 80.0-94.0 [facility] Comment on above: Performed By: #### C BC #### [facility] [address] [place] [address] Dr. Conor Chan MONO # 0.6 103/ul Normal 0.3-0.8 [facility] Comment on above: Performed By: #### C BC #### [facility] [address] [place] [address] Dr. Conor Chan Monocytes/100 WBC (Bld) 9.3 % Normal 1.7-12.0 [facility] Comment on above: Performed By: #### C BC #### [facility] [address] [address] [address] Conor Chan NEUT # 4.1 103/ul Normal 1.4-6.5 [facility] Comment on above: Performed By: #### C BC #### [facility] [address] [place] [address] Dr. Conor Chan Neutrophils/100 WBC (Bld) 64.7 % Normal 43.0-75.0 [facility] Comment on above: Performed By: #### C BC #### [facility] [address] [place] [address] Dr. Conor Chan Platelet mean volume (Bld) [Entitic vol] 9.8 fL Normal 9.5-13.5 [facility] Comment on above: Performed By: #### C BC #### [facility] [address] [place] [address] Dr. Conor Chan PLT 235 103/ul Normal 150-450 [facility] Comment on above: Performed By: #### C BC #### [facility] [address] [place] [address] Dr. Conor Chan RBC 5.71 106/ul Normal 4.70-6.10 [facility] Comment on above: Performed By: #### C BC #### [facility] [address] [place] [address] Dr. Conor Chan WBC 6.4 103/ul Normal 4.0-11.0 [facility] Comment on above: Performed By: #### C BC #### [facility] [address] [place] [address] Dr. Conor Chan FREE THYROXINE INDEX T7on FTI 2.89 Normal [facility] Comment on above: Performed By: #### L IPID, TSH, T7, URIC, CMP #### [facility] [address] [place] [address] Dr. Conor Chan T3U 34.0 % Normal 23.5-40.5 [facility] Comment on above: Performed By: #### L IPID, TSH, T7, URIC, CMP #### [facility] [address] [place], [place] [address] Dr. Conor Chan T4 [Mass/Vol] 8.50 ug/dL Normal 5.53-11.00 [facility] Comment on above: Performed By: #### L IPID, TSH, T7, URIC, CMP #### [facility] [address] [address] [address] Conor Chan GLYCOHEMOGLOBIN A1Con 2021 ADA RECOMMENDATION ADA THERAPEUTIC TARGET 6.0 - 7.0 ACTION SUGGESTED > 7.0 Normal [facility] Comment on above: Performed By: #### A 1C #### [facility] [address] [place] [address] Dr. Conor Chan Glucose [Mass/Vol] 126 mg/dL Normal [facility] Comment on above: Performed By: #### A 1C #### [facility] [address] [place] [address] Dr. Conor Chan HbA1c (Bld) [Mass fraction] 6.0 % Normal <=6.0 [facility] Comment on above: Performed By: #### A 1C #### [facility] [address] [place] [address] Dr. Conor Chan LIPID PROFILEon 12-20-2021 CHOL-HDL RATIO NORM SEE BELOW Normal [facility] Comment on above: Result Comment: 3.3 - 4.4 LOW RISK 4.4 - 7.1 AVERAGE RISK 7.1 - 11.0 MODERATE RISK >11.0 HIGH RISK Performed By: #### L IPID, TSH, T7, URIC, CMP #### [facility] [address] [place] [address] Dr. Conor Chan Cholesterol [Mass/Vol] 161 mg/dL Normal <=200 [facility] Comment on above: Performed By: #### L IPID, TSH, T7, URIC, CMP #### [facility] [address] [place] [address] Dr. Conor Chan Cholesterol in HDL [Mass/Vol] 50 mg/dL Normal [facility] Comment on above: Performed By: #### L IPID, TSH, T7, URIC, CMP #### [facility] [address] [address] [address] Conor Chan Cholesterol in LDL [Mass/Vol] 96.0 mg/dL Normal [facility] Comment on above: Performed By: #### L IPID, TSH, T7, URIC, CMP #### [facility] [address] [place] [address] Dr. Conor Chan Cholesterol.total/Ch olesterol in HDL [Mass ratio] 3.2 {ratio} Normal [facility] Comment on above: Performed By: #### L IPID, TSH, T7, URIC, CMP #### [facility] [address] [address] [address] Conor Chan HDL NORMAL > or = 60 mg/dl - LO W CARDIOVASCULAR RISK <40 mg/dl - HIGH CARDIOVASCULAR RISK Normal [facility] Comment on above: Performed By: #### L IPID, TSH, T7, URIC, CMP #### [facility] [address] [place] [address] Dr. Conor Chan LDL CALC NORMAL SEE BELOW Normal [facility] Comment on above: Result Comment: <100 mg/dl OPTIMAL 100 - 129 mg/dl NEAR OR ABOVE OPTIMAL 130 - 159 mg/dl BORDERLINE HIGH 160 - 189 mg/dl HIGH >190 mg/dl VERY HIGH Performed By: #### L IPID, TSH, T7, URIC, CMP #### [facility] [address] [address] [address] Conor Chan Triglyceride [Mass/Vol] 75 mg/dL Normal <=150 [facility] Comment on above: Performed By: #### L IPID, TSH, T7, URIC, CMP #### [facility] [address] [address] [address] Conor Chan VLDL CALC 15.0 mg/dL Normal [facility] Comment on above: Performed By: #### L IPID, TSH, T7, URIC, CMP #### [facility] [address] [address] [address] Conor Chan PROF 14(COMP METB)on 022 Albumin [Mass/Vol] 3.7 g/dL Normal 3.5-5.0 [facility] Comment on above: Performed By: #### L IPID, TSH, T7, URIC, CMP #### [facility] [address] [address] [address] Conor Chan Albumin/Globulin [Mass ratio] 0.9 {ratio} Normal [facility] Comment on above: Performed By: #### L IPID, TSH, T7, URIC, CMP #### [facility] [address] [place] [address] Dr. Conor Chan ALP [Catalytic activity/Vol] 58 U/L Normal 38-126 [facility] Comment on above: Performed By: #### L IPID, TSH, T7, URIC, CMP #### [facility] [address] [place] [address] Dr. Conor Chan ALT [Catalytic activity/Vol] 40 U/L Normal 21-72 [facility] Comment on above: Performed By: #### L IPID, TSH, T7, URIC, CMP #### [facility] [address] [place] [address] Dr. Conor Chan Anion gap [Moles/Vol] 5.5 mmol/L Normal [facility] Comment on above: Performed By: #### L IPID, TSH, T7, URIC, CMP #### [facility] [address] [place] [address] Dr. Conor Chan AST [Catalytic activity/Vol] 18 U/L Normal 17-59 [facility] Comment on above: Performed By: #### L IPID, TSH, T7, URIC, CMP #### [facility] [address] [place] [address] Dr. Conor Chan Bilirubin [Mass/Vol] 0.5 mg/dL Normal 0.2-1.3 [facility] Comment on above: Performed By: #### L IPID, TSH, T7, URIC, CMP #### [facility] [address] [place] [address] Dr. Conor Chan Calcium [Mass/Vol] 9.9 mg/dL Normal 8.4-10.2 [facility] Comment on above: Performed By: #### L IPID, TSH, T7, URIC, CMP #### [facility] [address] [place] [address] Dr. Conor Chan Chloride [Moles/Vol] 97 mmol/L Critically low 98-107 [facility] Comment on above: Performed By: #### L IPID, TSH, T7, URIC, CMP #### [facility] [address] [place] [address] Dr. Conor Chan CO2 [Moles/Vol] 30.7 mmol/L Critically high 22.0-30.0 [facility] Comment on above: Performed By: #### L IPID, TSH, T7, URIC, CMP #### [facility] [address] [place] [address] Dr. Conor Chan Creatinine [Mass/Vol] 1.04 mg/dL Normal 0.66-1.25 [facility] Comment on above: Performed By: #### L IPID, TSH, T7, URIC, CMP #### [facility] [address] [place] [address] Dr. Conor Chan EGFR-AF SALVADOREAN >60 Normal >=60 [facility] Comment on above: Performed By: #### L IPID, TSH, T7, URIC, CMP #### [facility] [address] [place] [address] Dr. Conor Chan EGFR-NON AF SALVADOREAN >60 Normal >=60 [facility] Comment on above: Performed By: #### L IPID, TSH, T7, URIC, CMP #### [facility] [address] [place] [address] Dr. Conor Chan Globulin (S) [Mass/Vol] 4.2 g/dL Normal [facility] Comment on above: Performed By: #### L IPID, TSH, T7, URIC, CMP #### [facility] [address] [place] [address] Dr. Conor Chan Glucose [Mass/Vol] 122 mg/dL Critically high 74-106 [facility] Comment on above: Performed By: #### L IPID, TSH, T7, URIC, CMP #### [facility] [address] [place] [address] Dr. Conor Chan Potassium [Moles/Vol] 3.2 mmol/L Critically low 3.4-5.0 [facility] Comment on above: Performed By: #### L IPID, TSH, T7, URIC, CMP #### [facility] [address] [place] [address] Dr. Conor Chan Protein [Mass/Vol] 7.9 g/dL Normal 6.1-8.2 [facility] Comment on above: Performed By: #### L IPID, TSH, T7, URIC, CMP #### [facility] [address] [place] [address] Dr. Conor Chan Sodium [Moles/Vol] 130 mmol/L Critically low 137-145 [facility] Comment on above: Performed By: #### L IPID, TSH, T7, URIC, CMP #### [facility] [address] [place] [address] Dr. Conor Chan Urea nitrogen [Mass/Vol] 15.0 mg/dL Normal 9.0-20.0 [facility] Comment on above: Performed By: #### L IPID, TSH, T7, URIC, CMP #### [facility] [address] [place] [address] Dr. Conor Chan Urea nitrogen/Creatinine [Mass ratio] 14.4 mg/mg Normal [facility] Comment on above: Performed By: #### L IPID, TSH, T7, URIC, CMP #### [facility] [address] [place] [address] Dr. Conor Chan TSHon 12-20-2021 TSH 2.122 uIU/mL Normal 0.470-4.680 [facility] Comment on above: Performed By: #### L IPID, TSH, T7, URIC, CMP #### [facility] [address] [place] [address] Dr. Conor Chan TSH RANGE SEE BELOW Normal [facility] Comment on above: Result Comment: <0.3 4 UIU/ml HYPERTHYROID 0.34-5.60 UIU/ml EUTHYROID >5.60 UIU/ml HYPOTHYROID Performed By: #### L IPID, TSH, T7, URIC, CMP #### [facility] [address] [address] [address] Conor Chan URIC ACID SERUMon 12-20-2021 Urate [Mass/Vol] 7.3 mg/dL Normal 3.5-8.5 [facility] Comment on above: Performed By: #### L IPID, TSH, T7, URIC, CMP #### [facility] [address] [address] [address] Conor Chan XR LSPINE MIN 4 [...] OSCAR FRANCO Date: 2021-12-20 10:06 Normal [facility] Vital Signs Date Time Vital Sign Value Performing Clinician Idalmis rausch 2023 08:03-0400 Body height 182.9 cm Bilal Butt Work Phone: [facility] 2023 08:03-0400 Body weight 120.2 kg Bilal Butt Work Phone: [facility] 06-02-2023 13:26-0400 Body height 182.9 cm Darren Harris APRN.PICK PULLING MACHINE TENDER Work Phone: [facility] 06-02-2023 13:26-0400 Body weight 117.03 kg Darren Harris APRN.PICK PULLING MACHINE TENDER Work Phone: [facility] 06-02-2023 13:26-0400 Diastolic blood pressure 84 mm[Hg] Darren Harris APRN.KIRILL Work Phone: [facility] 06-02-2023 13:26-0400 Heart rate 63 /min Darren Harris APRN.KIRILL Work Phone: [facility] 08-07-2023 13:26-0400 Respiratory rate 18 /min Darren Clara GARDE MANGER.PICK PULLING MACHINE TENDER Work Phone: [facility] 06-02-2023 13:26-0400 SaO2% (BldA) [Mass fraction] 95 % Darren Harris GARDE MANGER.PICK PULLING MACHINE TENDER Work Phone: [facility] 06-02-2023 13:26-0400 Systolic blood pressure 128 mm[Hg] Darren Clara GARDE MANGER.PICK PULLING MACHINE TENDER Work Phone: [facility] 05-13-2023 11:22-0400 Body height 182.88 cm Avi Lauren Hoy Work Phone: [facility] 250 DO Work Phone: 05-13-2023 11:22-0400 Body mass index (BMI) [Ratio] 36.21 kg/m2 Avi M Hoy Work Phone: [facility] 250 DO Work Phone: 05-13-2023 11:22-0400 Body surface area Derived from formula 2.41 m2 Avi Lauren Hoy Work Phone: [facility] 250 DO Work Phone: 05-13-2023 11:22-0400 Body weight 121.11 kg Avi M Hoy Work Phone: [facility] 250 DO Work Phone: 05-13-2023 11:22-0400 Diastolic blood pressure 78 mm[Hg] Avi M Hoy Work Phone: [facility] 250 DO Work Phone: 05-13-2023 11:22-0400 Heart rate 64 /min Avi M Hoy Work Phone: [facility] 250 DO Work Phone: 05-13-2023 11:22-0400 Systolic blood pressure 132 mm[Hg] Avi M Hoy Work Phone: [facility] 250 DO Work Phone: 05-07-2022 11:36-0400 Body height 182.88 cm Avi M Hoy Work Phone: [facility] DO Work Phone: 05-07-2022 11:36-0400 Body mass index (BMI) [Ratio] 38.38 kg/m2 Avi M Hoy Work Phone: [facility] 250 DO Work Phone: 05-07-2022 11:36-0400 Body surface area Derived from formula 2.47 m2 Avi M Hoy Work Phone: [facility] 250 DO Work Phone: 05-07-2022 11:36-0400 Body weight 128.37 kg Avi M Hoy Work Phone: [facility] DO Work Phone: 05-07-2022 11:36-0400 Diastolic blood pressure 72 mm[Hg] Avi M Hoy Work Phone: [facility] DO Work Phone: 05-07-2022 11:36-0400 Heart rate 66 /min Avi M Hoy Work Phone: [facility] DO Work Phone: 05-07-2022 11:36-0400 Systolic blood pressure 110 mm[Hg] Avi M Hoy Work Phone: [facility] DO Work Phone: Encounters Encounter Date Encounter Type Care Provider Facility Start: 2023 End: 2023 ambulatory JUAN R BEY Facility:[facility] Start: 2023 End: 2023 Office outpatient new 30 minutes Juan R Bey MD Work Phone: [facility] Comment on above: Meralgia paresthetic a of left side (Primary Dx); Chronic midline low back pain without sciatica Start: 08-01-2023 End: 08-01-2023 ambulatory Darren Harris GARDE MANGER.PICK PULLING MACHINE TENDER Work Phone: [facility] Comment on above: Dr chong Cut me open Start: 07-01-2023 End: 07-01-2023 ambulatory JESSICA CAMP Facility:[facility] Start: 06-26-2023 Telephone encounter Jessica Camp DO Work Phone: [facility] Comment on above: Preparations For Pro cedures (Pre-injection instructions) Start: 06-19-2023 Orders Only Jessica hall DO Work Phone: Neurology Comment on above: Lumbar radiculopathy (Primary Dx); Displacement of lumbar intervertebral disc without myelopathy Start: 06-02-2023 End: 06-03-2023 ambulatory DARREN HARRIS Facility:[facility] Start: 06-02-2023 End: 06-02-2023 Patient encounter procedure Darren Harris GARDE MANGER.PICK PULLING MACHINE TENDER Work Phone: [facility] Comment on above: Radiculopathy, lumba r region (Primary Dx); Lumbar disc herniation Start: 05-13-2023 Office outpatient vi sit 25 minutes Avi Cervantes Work Phone: [facility] 250 DO Work Phone: Start: 05-13-[address] Reilly Nelson II Facility: Start: 05-06-2023 Chart abstracting None (Historical) Neurology Start: 12-16-2022 Rx Renewal Avi Cervantes Work Phone: [facility] 250 DO Work Phone: Start: 07-17-2022 End: 07-17-2022 ambulatory Bijan Betts Jr Facility:[facility] Start: 07-17-2022 End: 07-17-2022 Departed Referred MD Avi Cervantes Work Phone: [facility] 250 Start: 05-07-2022 Office outpatient vi sit 25 minutes Avi Cervantes Work Phone: [facility] 250 DO Work Phone: Start: 01-03-[address] AVI CERVANTES Facility :[facility] Start: 12-21-2021 Encounter for genera l adult medical examination without abnormal findings DR AVI CERVANTES [facility] Start: 12-20-2021 End: 12-21-[address] AVI CERVANTES Facility:[facility] Start: 12-20-2021 End: 12-21-2021 Encounter for general adult medical examination without abnormal findings DR AVI CERVANTES Facility:[facility] Start: 12-10-2021 Rx Renewal Reilly mcmahon MD Work Phone: [facility] 250 DO Work Phone: Procedures Date Procedure Procedure Detail Performing Clinician Start: 07-17-2022 Radiologic examinati on of knee MD Avi Cervantes Work Phone: Start: 12-20-[address] RONDA CERVANTES Comment on above: Performed By: #### P [facility] #### [facility] [address] [place] [address] Dr. Conor Chan Start: 06-09-2020 Total colonoscopy Chaz Nelson MD Work Phone: Start: 07-02-2019 Colonoscopy Darren harris APRN.PICK PULLING MACHINE TENDER Work Phone: Cardiac catheterization Will renetta Nelson MD Work Phone: Cholecystectomy Reilly miranda MD Work Phone: Plan of Treatment Date Care Activity Detail Author Start: 12-20-2026 PROSTATE CANCER SCREENING DISCUSSION PROSTATE CANCER SCREENING DISCUSSION [facility] Start: 06-27-2023 Influenza vaccination C [facility] Start: 05-13-2023 FUV, Provider: Reilly Nelson, Status: Pen, Time: 11:10 AM FUV, Provider: Reilly Nelson, Status: Pen, Time: 11:10 AM [facility] 250 DO Work Phone: Start: 10-27-2022 DEPRESSION ASSESSMENT DEPRESSION ASS ESSMENT [facility] Start: 05-17-2022 COVID-19 VACCINE (6 - Pfizer series) COVID-19 VACCINE (6 - Pfizer series) [facility] Start: 05-15-2022 FUV, Provider: Reilly Nelson, Status: Pen, Time: 2:00 PM FUV, Provider: Reilly Nelson, Status: Pen, Time: 2:00 PM [facility] 250 DO Work Phone: Start: 07-02-2020 Colonoscopy COLONOSCOPY [facility] Start: 07-02-2020 COLORECTAL CANCER SCREENING COLORECTAL CANCER SCREENING [facility] Start: 2016 Prostate Cancer Screening Discussion Prostate Cancer Screening Discussion [facility] Start: 2011 SHINGRIX VACCINE (1 of 2) SHINGRIX VACCINE (1 of 2) [facility] Start: 2006 COLOGUARD (FIT-DNA) COLOGUARD (FIT-D NA) [facility] Start: [address] COLONOGRAPHY [facility] Start: 2006 DIABETES SCREEN DIABETES SCREEN [facility] Start: 2006 Diabetes Screening Diabetes Screenin g [facility] Start: 2006 FECAL OCCULT BLOOD FECAL OCCULT BLOO D [facility] Start: 2006 SIGMOIDOSCOPY SIGMOIDOSCOPY [facility] Start: 1996 Lipid 1996 panel - S hayden or Plasma Lipid Screening [facility] Start: 1996 LIPID SCREEN LIPID SCREEN [facility] Start: 1980 Urine microalbumin profile [facility] Start: 1979 HEPATITIS C SCREENING HEPATITIS C SC REENING [facility] Start: 1979 HIV SCREENING HIV SCREENING [facility] End: 09-02-2024 Radex spine lumbosacral minimum 4 views XR LUMBAR MOTION 4V AP/LAT/ FLEX/EXT Radiology Routine Meralgia paresthetica of left side 1 Occurrences starting 2023 until 09/02/2024 [facility] Work Phone: Comment on above: 1 Occurrences starti ng 2023 until 09/02/2024 SPINE INTERVENTION PROCEDURE SPINE INTERVENTION PROCEDURE Procedures Routine Radiculopathy, lumbar region Lumbar disc herniation Ordered: 06/02/2023 [facility] Work Phone: Comment on above: Ordered: 06/02/2023 [facility] RACHAEL [facility] Immunizations Immunization Date Immunization Notes Care Provider Deepa rehman 10-14-2022 Pfizer COVID-19 Vac Bivalent 30 MCG/0.3ML Intramuscular Suspension Avi M Hoy Work Phone: [facility] 250 DO Work Phone: 10-03-2022 influenza, injectabl e, quadrivalent, preservative free Avi M Hoy Work Phone: [facility] 250 DO Work Phone: 10-03-2022 influenza virus vacc ine, unspecified formulation Darren Harris APRN.PICK PULLING MACHINE TENDER Work Phone: [facility] 03-22-2022 Comirnaty 30 MCG/0.3 ML Intramuscular Suspension Avi M Hoy Work Phone: [facility] 250 DO Work Phone: 03-22-2022 Moderna COVID-19 Vac cine 100 MCG/0.5ML Intramuscular Suspension Avi M Hoy Work Phone: [facility] Comment on above: Series: 03-22-2022 zoster vaccine recombinant Avi M Hoy Work Phone: [facility] 250 DO Work Phone: 09-03-2021 Pfizer-BioNTech COVI D-19 Vacc 30 MCG/0.3ML Intramuscular Suspension Avi M Hoy Work Phone: [facility] 08-25-2021 influenza, injectabl e, quadrivalent, preservative free Avi M Hoy Work Phone: [facility] 250 DO Work Phone: 08-25-2021 zoster vaccine recombinant Avi M Hoy Work Phone: [facility] 250 DO Work Phone: 02-13-2021 Pfizer-BioNTech COVI D-19 Vacc 30 MCG/0.3ML Intramuscular Suspension Avi Cervantes Work Phone: [facility] 01-13-2021 Pfizer-BioNTech COVI D-19 Vacc 30 MCG/0.3ML Intramuscular Suspension Avi Cervantes Work Phone: [facility] 12-23-2020 Pfizer-BioNTech COVI D-19 Vacc 30 MCG/0.3ML Intramuscular Suspension Avi Cervantes Work Phone: [facility] 08-28-2020 influenza, injectabl e, quadrivalent, preservative free Avi Cervantes Work Phone: [facility] 250 DO Work Phone: 08-28-2020 influenza virus vacc ine, unspecified formulation Juan R Bey MD Work Phone: [facility] Payers Date Payer Category Payer Self-pay [id number] [phone] [id number] 2021 Private Health Insurance [employer] A ETNA POS [id number] 2021-Present [phone] [address] [place] [address] POS [id number] 1961 Unknown [id number] 1961 Unknown [id number] 1961 Unknown [id number] 1959 Private Health Insurance [id number] 1958 Self-pay [id number] Unknown Unknown [facility] [id number] Unknown [id number] Social History Date Type Detail Facility Start: 06-02-2023 End: 08-01-2023 Consumes alcohol Consumes alcohol [facility] Comment on above: socially; occasional; Start: 09-28-2020 End: 06-02-2023 Tobacco smoking status NHIS Never smoked tobacco (finding) [facility] Start: 1960 Sex Assigned At Male F [facility] Tobacco smoking stat NHIS Tobacco smoking consumption unknown [facility] Start: 1960 Sex Assigned At Not on file C [facility] Start: 06-02-2023 End: 08-01-2023 Gender identity Not on file [facility] Start: 06-02-2023 Tobacco use and exposure Smokeless tobacco non-user [facility] National Score (1-10 0), lower number is lower risk 61 [facility] Start: 07-28-2023 Gender identity Identifies as male gender (finding) [facility] Start: 07-28-2023 Sexual orientation Heterosexual (fin ding) [facility] Clinical Notes 05-06-2023 to 2023 Juan R Bey MD - 2023 8:40 AM EDTPBossman Brian - 2023 7:48 AM EDTTelephone Encounter - Oscar oRllins LPN - 06/26/2023 9:12 AM EDT Note Date & Type Note Facility 2023 Note HNO ID: [id number] Author: Juan R Bey MD Service: ? [...] issues. 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 Author Type: [...] Medications: See medication reconciliation list in [facility] MEDICATIONS: Gabapentin, Howells, Tylenol Have you ever seen a pain [...] or completing routine daily living activities? No [facility] 2023 History of Presen t illness [...] issues. 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 Author Type: Nurse Practitioner Type: Progress Notes Filed: 08/01/2023 1:30 PM Note Text: SPINE SURGERY ESTABLISHED VISIT This is a virtual visit using [employer] Video Visit. It required patient-provider interaction for the medical decision making as documented below. DATE OF SERVICE: 08/01/2023 DATE OF LAST VISIT: 06/02/2023 SUBJECTIVE: HPI:Kim Nichols is a 62 year old male presenting via virtual vist s/p Left L5 transforaminal epidural steroid injection on 07/01/[address] Camp. [place] great initially and for the first few [...] which included preparing to see the patient, [id number] patient care, completing clinical documentation, obtaining and/or reviewing separately obtained history, performing a medically appropriate examination, counseling and educating the patient/family/caregiver, independently interpreting results (not separately reported), and communicating results to the patient/family/caregiver. SIGNATURE: Darren Harris APRN.KIRILL PATIENT NAME: Kim Nichols DATE: August 01, 2023 TIME: 12:53 PM PAGER: [facility] 06-26-2023 Miscellaneous Notes Phoned patient and message left for Kim to confirm appointment for Kim Nichols for spine procedure on 07/01/2023. Patient notified that Beauregard will call patient the night before with the time to arrive for injection. Patient verbalized understanding of the following: -Provided education on spine procedure and answered questions related to spine injection procedure. -Design Painter is needed to drive patient home. -NPO [...] to report. Diabetic: No Patient given number [phone], spine injections schedulers, if there is any [...] POST INJECTION INSTRUCTIONS documented in this encounter [facility] 06-02-2023 Note HNO ID: [id number] Author: Darren Harris APRN.PICK PULLING MACHINE TENDER Service: ? Author Type: Nurse Practitioner Type: [...] with him pain. He also is prescribed Howells for breakthrough pain which he only takes [...] Normal. DATA REVIE (more content not included)... [facility] 06-02-2023 History of Presen t illness [...] with him pain. He also is prescribed Howells for breakthrough pain which he only takes [...] which included preparing to see the patient, [id number] patient care, completing clinical documentation, obtaining and/or reviewing separately obtained history, performing a medically appropriate examination, counseling and educating the patient/family/caregiver, independently interpreting results (not separately reported), and communicating results to the patient/family/caregiver. SIGNATURE: Darren Harris APRN.CNP PATIENT NAME: Kim Nichols DATE: June 02, 2023 TIME: 1:57 PM PAGER: documented in this encounter [facility] 05-14-2023 Note HNO ID: [id number] Author: Ember Delatorre PA-C Service: ? Author Type: Physician Produce Assistant Type: Progress Notes Filed: 05/14/2023 4:17 PM Note Text: Per Triage: Kim Nichols is a 62 year old male that requests evaluation of lumbar spine. Per review, they have symptoms of back and LLE pain. Positive for numbness. CMT: Medication: Gabapentin, Tylenol, Howells Studies (Reports unless indicated) MRI Lumbar: L4/5 moderate left foramen narrowing which may contribute to patient's symptoms 2. L5/S1 disc protrusion without significant canal or foramen narrowing. Disposition: Please schedule with surgical SANDY. Consider if injection is appropriate or on effective dose of Neurontin. Also see if symptoms correlate with imaging. [facility] 05-14-2023 History of Presen t illness Narrative Per Triage: Kim Nichols is a 62 year old male that requests evaluation of lumbar spine. Per review, they have symptoms of back and LLE pain. Positive for numbness. CMT: Medication: Gabapentin, Tylenol, Howells Studies (Reports unless indicated) MRI Lumbar: L4/5 [...] Health Provider or Pain Management Provider at [facility]? No If answer is YES please [...] facility where the MRI/CT/myelogram was completed: [facility] [place] [address] [place] [address] MRI/CT/myelogram viewable in Epic: No If not, please provide [phone] to fax in imaging reports for review. [...] Additional Comments Hydrocodone documented in this encounter [facility] 05-06-2023 Note HNO ID: [id number] Author: Mauricio Kelley Service: ? Author Type: ? Type: Progress Notes Filed: 05/14/2023 4:17 PM Note Text: Patient name: Kim Nichols Are you being referred by a Dougherty for Spine Health Provider or Pain Management Provider at [facility]? No If answer is YES please [...] facility where the MRI/CT/myelogram was completed: The [address] [address] MRI/CT/myelogram viewable in Epic: No If not, please provide [phone] to fax in imaging reports for review. [...] the surgery was completed: Additional Comments Hydrocodone [facility] Evaluation note No assessment inform ation [facility] Work Phone: Evaluation note Diagnosis Radiculopathy, lumbar region- Primary Thoracic or lumbosacral neuritis or radiculitis, unspecified Lumbar disc herniation Displacement of lumbar intervertebral disc without myelopathy [facility] Lumbar radiculopathy- Primary Thoracic or lumbosacral neuritis or radiculitis, unspecified Displacement of lumbar intervertebral disc without myelopathy [facility] Diagnosis Meralgia paresthetica of left side- Primary Meralgia paresthetica Chronic midline low back pain without sciatica [facility] of [facility] NarrativePatient returns in follow-up [...] to their favorable impact on blood pressure andcholesterol.-[facility] DO Work Phone: History of [...] to call if they arise or occur. -[facility] [employer] DO Work Phone: History of Present illness [...] to call if they arise or occur. [facility] DO Work Phone: Reason for referral (narrative)* Diagnostic Procedure Only (Routine) - Pending Review Specialty Diagnoses / Procedures Referred By Contac t Referred To Contact XR IMAGING Diagnoses Meralgia paresthetica of left side Procedures XR LUMBAR MOTION 4V AP/LAT/ FLEX/EXT RADEX SPINE LUMBOSACRAL MINIMUM 4 VIEWS Juan R Bey MD [address] [place] [address] [place] [address] Referral ID Status Reason Start Date Expiration Date Visits Requested Visits Authorized [id number] Pending Review Auto-Generat ed Referral 2023 09/02/2024 1 1 [facility] Summary Purpose Family History No Family History [...] and content) DATE CREATED AUTHOR 01/05/2022 [facility] DATE CREATED AUTHOR AUTHOR'S ORGANIZ ATION 07/28/2022 [facility] DATE CREATED AUTHOR AUTHOR'S ORGANIZ ATION 05/14/2023 [facility] DATE CREATED AUTHOR AUTHOR'S ORGANIZ ATION 05/14/2023 [facility] DATE CREATED AUTHOR AUTHOR'S ORGANIZ ATION 2023 [facility] DATE CREATED AUTHOR AUTHOR'S ORGANIZ ATION 08/05/2023 [facility] l Care Teams (unrecognized sec tion and content) Team Status: Inactive Member Role Status Dates Avi Cervantes MD Primary Care Provider Active Bijan Betts Jr, DO Attending Provider Active Team Status: Active Member Role Status Dates Avi Cervantes MD Primary Care Provider Active Credit Card Control Clerk Relationship Specialty Start Date End Date Avi Cervantes MD [address] [place] [address] Referring Family Medicine 04/24/23 Credit Card Control Clerk Relationship Specialty Start Date End Date Avi Cervantes MD [address] [place] [address] Referring Family Medicine 04/24/23 Credit Card Control Clerk Relationship Specialty Start Date End Date Avi Cervantes MD [address] [place] [address] Referring Family Medicine 04/24/23 Credit Card Control Clerk Relationship Specialty Start Date End Date Avi Cervantes MD [address] [facility] [address] PCP - General Family Medicine 06/25/23 Avi Cervantes MD [address] [place] [facility] [address] Referring Family Medicine 04/24/23 Credit Card Control Clerk Relationship Specialty Start Date End Date Avi Cervantes MD [address] [place] [address] PCP - General Family Medicine 06/25/23 Avi Cervantes MD [address] [place] [address] Referring Family Medicine 04/24/23 Credit Card Control Clerk Relationship Specialty Start Date End Date Avi Cervantes MD [address] [place] [address] PCP - General Family Medicine 06/25/23 Avi Cervantes MD [address] [place] [address] Referring Family Medicine 04/24/23 Goals (unrecognized section [...] or prosecute any alcohol or drug abuse patient.[facility] the event this information is protected by the Federal Confidentiality of Alcohol and Drug Abuse Patient Records regulations: The Federal rules restrict any use of the information to criminally investigate or prosecute any alcohol or drug abuse patient.[facility] the event this information is protected by the Federal Confidentiality of Alcohol and Drug Abuse Patient Records regulations: The Federal rules restrict any use of the information to criminally investigate or prosecute any alcohol or drug abuse patient.[facility] the event this information is protected by the Federal Confidentiality of Alcohol and Drug Abuse Patient Records regulations: The Federal rules restrict any use of the information to criminally investigate or prosecute any alcohol or drug abuse patient.[facility] the event this information is protected by the Federal Confidentiality of Alcohol and Drug Abuse Patient Records regulations: The Federal rules restrict any use of the information to criminally investigate or prosecute any alcohol or drug abuse patient.[facility] the event this information is protected by the Federal Confidentiality of Alcohol and Drug Abuse Patient Records regulations: The Federal rules restrict any use of the information to criminally investigate or prosecute any alcohol or drug abuse patient.[facility] Reason for Visit (unrecogniz ed section and [...] BE BASED ON THE PRIMARY CLINICAL RECORDS. [facility] [employer] [facility]. provides no warranty or guarantee of the accuracy or completeness of information in this document.
== END 2024-05-27 11:45 | disposition home or self-care (01) ==
LOC: CARD 11:44
PROVIDERS: PCP Family Medicine; Visit Provider Family Medicine
DX: I48.91 Unspecified atrial fibrillation (principal)
CPT/HCPCS: 93270

== ENCOUNTER 2024-05-28 09:22 | Outpatient (OUT) | payer OTHER, SELFPAY ==
--- OUTSIDE RECORDS SUMMARY | 2024-05-28 09:25 | XMS_ITS | CCD ---
Author Organization [facility] Care Team Providers Care Senior Manager Name Role Phone Unavailable Unavailable DR AVI CERVANTES Attending Unavailable MARLENI, DR CÁRDENAS Admitting Unavailable MARLENI, DR CÁRDENAS Attending Unavailable DR AVI CERVANTES Admitting Unavailable DR AVI CERVANTES Consulting Unavailable WEST, DR OSCAR Ingram Consulting Unavailable Avi Cervantes Unavailable MD Avi Cervantes Primary Care Provider [phone] DO Bijan Betts Jr Attending Provider [...] Translations: [amoxicillin] Drug Allergy 09-26-[address] [facility] (1 source) Amoxicillin Drug Allergy [facility] (1 source) traMADol Drug Allergy [facility] (1 source) Amoxicillin Drug Allergy 09-26-[address] [facility] Repository Medications Current Medications Medication Drug [...] P O Q6H September 26, 2020 1:00am [place] 5-325 MG T ABS TAKE 1 TABLET [...] [Coronary atherosclerosis of unspecified type of vessel, [place] or graft] Chronic Diabetes mellitus without complication [...] CNOV Office Visit (SPSLUH ) KIM NICHOLS ([id number]) 1960 M Date Time Provider Department 08/04/23 8:00 AM JUAN R BEY [facility] During your visit today, we recorded the [...] opioids Medications: See medication reconciliation list in [facility] MEDICATIONS: Gabapentin, [place], Tylenol Have you ever seen a pain [...] issues. 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 [facility] 07-08-2023 [facility] Telephone (SPNMMN) KIM NICHOLS ([id number]) 1960 M Date Time Provider Department 07/08/23 JESSICA CAMP [facility] During your visit today, we recorded the following information about you: Stacy Gallagher RN 07/08/2023 12:56 PM Signed Post Spine Injection phone call: [phone] on 07/08/23 Patient denies fever, chills, new [...] appointment 2-4 weeks post procedure by calling [phone] Patient does not have any questions or [...] Status:Closed by STACY GALLAGHER on 07/08/23 Normal [facility] HISTORY PHYSICALon HISTORY PHYSICAL HNO ID: [id number] Author: Sherice Galvin APRN.PIPELINE DISPATCH OPERATOR Service: ? Author Type: Nurse Practitioner Type: [...] July 01, 2023 TIME: 9:04 AM Normal [facility] OPERATIVE NOon 07-01-2023 OPERATIVE NO HNO ID: [id number] Author: Jessica Camp DO Service: Physical Medicine AND Rehabilitation Author Type: Physician Type: Operative Report Filed: 07/01/2023 9:40 AM Note Text: PROCEDURE REPORT Surgery/Procedure Date: July 01, 2023 Interventionalist: Jessica Camp DO Procedure(s): Left L5 transforaminal epidural steroid injection Pre-Op/Pre-Procedure Diagnosis: Lumbar radiculopathy Post-Op Diagnosis: same SUBJECTIVE: Kim Nichols is a 62 year old male, who presents to the [facility] for a left L5 transforaminal epidural steroid injection. This is his first (1) procedure. 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 Pain is [...] in stable condition. Jessica Camp DO [facility] Telephone (SPNMMN) KIM NICHOLS ([id number]) 1960 M Date Time Provider Department 06/26/23 [facility] During your visit today, we recorded the following information about you: Oscar Rollins LPN 06/26/2023 9:20 AM Signed Phoned patient and message left for Kim to confirm appointment for Kim Sureshjamal for spine procedure on 07/01/2023. Patient notified that [place] will call patient the night before with the time to arrive for injection. Patient verbalized understanding of the following: -Provided education on spine procedure and answered questions related to spine injection procedure. -Production Assembly Supervisor is needed to drive patient home. -NPO [...] to report. Diabetic: No Patient given number [phone], spine injections schedulers, if there is any [...] Encounter Status:Closed by OSCAR ROLLINS on 06/26/23 [facility] [place] 06-02-2023 CNOV Office Visit (SPNSMN ) KIM NICHOLS ([id number]) 1960 M Date Time Provider Department 06/02/23 [...] with him pain. He also is prescribed N[place]ilchik for breakthrough pain which he only takes [...] well de (more content not included)... Normal [facility] Office Visit (Cardiology)on 05-13-2023 Follow-up visit Diagnoses/Problems Assessed Coronary disease (414.00) (I25.10) Essential hypertension, benign (401.1) (I10) Hyperlipidemia (272.4) (E78.5) Class 2 obesity with body mass index (BMI) of 36.0 to 36.9 in adult (278.00,V85.36) (E66.9,Z68.36) Never a smoker Orders Class 2 obesity with body mass index (BMI) of 36.0 to 36.9 in adult Healthy Weight Tips; Status:Complete - Retrospective Authorization; Done: [id number] Some eating tips that can help you lose weight.; Status:Complete - Retrospective Authorization; Done: [id number] Coronary disease, Hyperlipidemia Renew: Aspirin EC Low Dose 81 MG Oral Tablet Delayed Release; TAKE 1 TABLET DAILY DIRECTED Hyperlipidemia Renew: Rosuvastatin Calcium 20 MG Oral Tablet; take 1 tablet by mouth at bedtime SocHx: Never a smoker Tobacco Use Screening; Status:Complete; Done: [id number] Patient Instructions Please bring all medicines, vitamins, [...] MG Oral CapsuleTAKE 1 CAPSULE TWICE DAILY. [place] 5-325 MG TABSTAKE 1 TABLET EVERY 4 [...] negative for complaint. Vitals Vital Signs Recorded: [id number] 11:22AM Heart Rate64, R Radial Ztvcpozh351, RUE, Sitting Xhzoysvdr78, RUE, Sitting Height6 ft Woqgow032 lb BMI Gqvduihhsp24.21 kg/m2 BSA Calculated2.41 Tobacco Useb) No PHQ-2 [...] Screening.on 023 Adult depression screening assessment No [facility] 250 DO Work Phone: Tobacco use status [facility] b) No [facility] [address] DO Work Phone: XR knee LT 4V*on 07-17-2022 XR knee LT 4V* [facility] [place] [address] [place] [address] XRay Report Signed Patient: Kim Nichols MR#: [id number] : 1960 Acct:[id number] Age/Sex: 61 / M ADM Date: 07/17/22 Loc: [place] Room: Type: [facility] Attending Dr: Bijan Betts Jr, DO [...] Stacy Ellis M.D.07/17/2022 1:18 PM Dictation Location: [place] [address] Transcribed By: [facility] 07/17/22 1318 Dictated By: Stacy Ellis MD 07/17/22 1315 Signed By: 07/17/22 1318 [facility] Tobacco Screening.on 022 Adult depression screening assessment No [facility] [address] DO Work Phone: Fall risk assessment c) Not medically indicated [facility] [address] DO Work Phone: Tobacco use status CPHS b) No [facility] [address] DO Work Phone: H PYLORI ANTIBODY IGGon 11-28 H. PYLORI IGG ABS 0.45 Index Value Normal 0.00-0.79 [facility] Comment on above: Result Comment: Nega tive <0.80 Equivocal 0.80 - 0.89 Positive >0.89 Performed By: #### L IPID, TSH, T7, URIC, CMP #### [facility] [address] [address] [address] Conor Chan INSULINon 12-21-2021 Insulin 55.2 uIU/mL Critically high 2.6-24.9 [facility] Comment on above: Performed By: #### I NSULIN #### [facility] [address] [address] [address] Conor Chan TESTOSTERONE, TOTALon 2021 Testosterone [Mass/Vol] 380 ng/dL Normal 264-916 [facility] Comment on above: Result Comment: Adul t male reference interval is based on a population of healthy nonobese males (BMI <30) between 19 and 39 years old. Travon, et.al. JCEM 2017,102;[id number]. PMID: [id number]. Performed By: #### L IPID, TSH, T7, URIC, CMP #### [facility] [address] [place] [address] Dr. Conor Chan CBC AUTO DIFFon 12-20-2021 BASO # 0.0 103/ul Normal 0.0-0.1 [facility] Comment on above: Performed By: #### C BC #### [facility] [address] [place] [address] Dr. Conor Chan Basophils/100 WBC (Bld) 0.5 % Normal 0.2-2.0 [facility] Comment on above: Performed By: #### C BC #### [facility] [address] [place] [address] Dr. Conor Chan EO # 0.2 103/ul Normal 0.0-0.7 [facility] Comment on above: Performed By: #### C BC #### [facility] [address] [place] [address] Dr. Conor Chan Eosinophils/100 WBC (Bld) 3.5 % Normal 0.9-7.0 [facility] Comment on above: Performed By: #### C BC #### [facility] [address] [place] [address] Dr. Conor Chan Erythrocyte distribution width (RBC) [Ratio] 13.8 % Normal 11.0-15.0 [facility] Comment on above: Performed By: #### C BC #### [facility] [address] [place] [address] Dr. Conro Chan Hematocrit (Bld) [Volume fraction] 48.5 % Normal 42.0-54.0 [facility] Comment on above: Performed By: #### C BC #### [facility] [address] [place] [address] Dr. Conor Chan Hemoglobin (Bld) [Mass/Vol] 16.3 g/dL Normal 14.0-18.0 [facility] Comment on above: Performed By: #### C BC #### [facility] [address] [place] [address] Dr. Conor Chan IG # 0.02 10e3/ul Normal 0.00-0.03 [facility] Comment on above: Performed By: #### C BC #### [facility] [address] [place] [address] Dr. Conor Chan IG % 0.3 % Normal 0.0-0.5 [facility] Comment on above: Performed By: #### C BC #### [facility] [address] [place] [address] Dr. Conor hCan LYMPH # 1.4 103/ul Normal 1.2-3.8 [facility] Comment on above: Performed By: #### C BC #### [facility] [address] [address] [address] Conor Chan Lymphocytes/100 WBC (Bld) 21.7 % Normal 20.5-60.0 [facility] Comment on above: Performed By: #### C BC #### [facility] [address] [place] [address] Dr. Conor Chan MANUAL DIFF REQ NO Normal [facility] Comment on above: Performed By: #### C BC #### [facility] [address] [place] [address] Dr. Conor Chan MCH (RBC) [Entitic mass] 28.5 pg Normal 25.9-34.0 [facility] Comment on above: Performed By: #### C BC #### [facility] [address] [place] [address] Dr. Conor Chan MCHC (RBC) [Mass/Vol] 33.6 g/dL Normal 29.9-35.2 [facility] Comment on above: Performed By: #### C BC #### [facility] [address] [place] [address] Dr. Conor Chan MCV (RBC) [Entitic vol] 84.9 fL Normal 80.0-94.0 [facility] Comment on above: Performed By: #### C BC #### [facility] [address] [place] [address] Dr. Conor Chan MONO # 0.6 103/ul Normal 0.3-0.8 [facility] Comment on above: Performed By: #### C BC #### [facility] [address] [place] [address] Dr. Conor Chan Monocytes/100 WBC (Bld) 9.3 % Normal 1.7-12.0 [facility] Comment on above: Performed By: #### C BC #### [facility] [address] [address] [address] Conor hCan NEUT # 4.1 103/ul Normal 1.4-6.5 [facility] Comment on above: Performed By: #### C BC #### [facility] [address] [place] [address] Dr. Conor Chan Neutrophils/100 WBC (Bld) 64.7 % Normal 43.0-75.0 [facility] Comment on above: Performed By: #### C BC #### [facility] [address] [place] [address] Dr. Conor Chan Platelet mean volume (Bld) [Entitic vol] 9.8 fL Normal 9.5-13.5 [facility] Comment on above: Performed By: #### C BC #### [facility] [address] [place] [address] Dr. Conor Chan PLT 235 103/ul Normal 150-450 [facility] Comment on above: Performed By: #### C BC #### [facility] [address] [place] [address] Dr. Conor Chan RBC 5.71 106/ul Normal 4.70-6.10 [facility] Comment on above: Performed By: #### C BC #### [facility] [address] [place] [address] Dr. Conor Chan WBC 6.4 103/ul Normal 4.0-11.0 [facility] Comment on above: Performed By: #### C BC #### [facility] [address] [place] [address] Dr. Conor Chan FREE THYROXINE INDEX T7on FTI 2.89 Normal [facility] Comment on above: Performed By: #### L IPID, TSH, T7, URIC, CMP #### [facility] [address] [place] [address] Dr. Conor Chan T3U 34.0 % Normal 23.5-40.5 [facility] Comment on above: Performed By: #### L IPID, TSH, T7, URIC, CMP #### [facility] [address] [place], [place] [address] Dr. Conor Chan T4 [Mass/Vol] 8.50 ug/dL Normal 5.53-11.00 [facility] Comment on above: Performed By: #### L IPID, TSH, T7, URIC, CMP #### [facility] [address] [address] [address] Conor Chan GLYCOHEMOGLOBIN A1Con 2021 ADA RECOMMENDATION ADA THERAPEUTIC TARGET 6.0 - 7.0 ACTION SUGGESTED > 7.0 Normal [facility] Comment on above: Performed By: #### A 1C #### [facility] [address] [place] [address] Dr. Conor Chan Glucose [Mass/Vol] 126 mg/dL Normal [facility] Comment on above: Performed By: #### A 1C #### [facility] [address] [place] [address] Dr. Conor Chan HbA1c (Bld) [Mass fraction] 6.0 % Normal <=6.0 [facility] Comment on above: Performed By: #### A 1C #### [facility] [address] [place] [address] Dr. Conor Chan LIPID PROFILEon 12-20-2021 CHOL-HDL RATIO NORM SEE BELOW Normal [facility] Comment on above: Result Comment: 3.3 - 4.4 LOW RISK 4.4 - 7.1 AVERAGE RISK 7.1 - 11.0 MODERATE RISK >11.0 HIGH RISK Performed By: #### L IPID, TSH, T7, URIC, CMP #### [facility] [address] [place] [address] Dr. Conor Chan Cholesterol [Mass/Vol] 161 mg/dL Normal <=200 [facility] Comment on above: Performed By: #### L IPID, TSH, T7, URIC, CMP #### [facility] [address] [place] [address] Dr. Conor Chan Cholesterol in HDL [Mass/Vol] 50 mg/dL Normal [facility] Comment on above: Performed By: #### L IPID, TSH, T7, URIC, CMP #### [facility] [address] [address] [address] Conor Chan Cholesterol in LDL [Mass/Vol] 96.0 mg/dL Normal [facility] Comment on above: Performed By: #### L IPID, TSH, T7, URIC, CMP #### [facility] [address] [place] [address] Dr. Conor Chan Cholesterol.total/Ch olesterol in HDL [Mass ratio] 3.2 {ratio} Normal [facility] Comment on above: Performed By: #### L IPID, TSH, T7, URIC, CMP #### [facility] [address] [address] [address] Conor Chan HDL NORMAL > or = 60 mg/dl - LO W CARDIOVASCULAR RISK <40 mg/dl - HIGH CARDIOVASCULAR RISK Normal [facility] Comment on above: Performed By: #### L IPID, TSH, T7, URIC, CMP #### [facility] [address] [place] [address] Dr. Conor Chan LDL CALC NORMAL SEE BELOW Normal [facility] Comment on above: Result Comment: <100 mg/dl OPTIMAL 100 - 129 mg/dl NEAR OR ABOVE OPTIMAL 130 - 159 mg/dl BORDERLINE HIGH 160 - 189 mg/dl HIGH >190 mg/dl VERY HIGH Performed By: #### L IPID, TSH, T7, URIC, CMP #### [facility] [address] [address] [address] Conor Chan Triglyceride [Mass/Vol] 75 mg/dL Normal <=150 [facility] Comment on above: Performed By: #### L IPID, TSH, T7, URIC, CMP #### [facility] [address] [address] [address] Conor Chan VLDL CALC 15.0 mg/dL Normal [facility] Comment on above: Performed By: #### L IPID, TSH, T7, URIC, CMP #### [facility] [address] [address] [address] Conor Chan PROF 14(COMP METB)on 022 Albumin [Mass/Vol] 3.7 g/dL Normal 3.5-5.0 [facility] Comment on above: Performed By: #### L IPID, TSH, T7, URIC, CMP #### [facility] [address] [address] [address] Conor Chan Albumin/Globulin [Mass ratio] 0.9 {ratio} Normal [facility] Comment on above: Performed By: #### L IPID, TSH, T7, URIC, CMP #### [facility] [address] [place] [address] Dr. Conor Chan ALP [Catalytic activity/Vol] 58 U/L Normal 38-126 [facility] Comment on above: Performed By: #### L IPID, TSH, T7, URIC, CMP #### [facility] [address] [place] [address] Dr. Conor Chan ALT [Catalytic activity/Vol] 40 U/L Normal 21-72 [facility] Comment on above: Performed By: #### L IPID, TSH, T7, URIC, CMP #### [facility] [address] [place] [address] Dr. Conor Chan Anion gap [Moles/Vol] 5.5 mmol/L Normal [facility] Comment on above: Performed By: #### L IPID, TSH, T7, URIC, CMP #### [facility] [address] [place] [address] Dr. Conor Chan AST [Catalytic activity/Vol] 18 U/L Normal 17-59 [facility] Comment on above: Performed By: #### L IPID, TSH, T7, URIC, CMP #### [facility] [address] [place] [address] Dr. Conor Chan Bilirubin [Mass/Vol] 0.5 mg/dL Normal 0.2-1.3 [facility] Comment on above: Performed By: #### L IPID, TSH, T7, URIC, CMP #### [facility] [address] [place] [address] Dr. Conor Chan Calcium [Mass/Vol] 9.9 mg/dL Normal 8.4-10.2 [facility] Comment on above: Performed By: #### L IPID, TSH, T7, URIC, CMP #### [facility] [address] [place] [address] Dr. Conor Chan Chloride [Moles/Vol] 97 mmol/L Critically low 98-107 [facility] Comment on above: Performed By: #### L IPID, TSH, T7, URIC, CMP #### [facility] [address] [place] [address] Dr. Conor Chan CO2 [Moles/Vol] 30.7 mmol/L Critically high 22.0-30.0 [facility] Comment on above: Performed By: #### L IPID, TSH, T7, URIC, CMP #### [facility] [address] [place] [address] Dr. Conor Chan Creatinine [Mass/Vol] 1.04 mg/dL Normal 0.66-1.25 [facility] Comment on above: Performed By: #### L IPID, TSH, T7, URIC, CMP #### [facility] [address] [place] [address] Dr. Conor Chan EGFR-AF SURINAMESE >60 Normal >=60 [facility] Comment on above: Performed By: #### L IPID, TSH, T7, URIC, CMP #### [facility] [address] [place] [address] Dr. Conor Chan EGFR-NON AF SURINAMESE >60 Normal >=60 [facility] Comment on above: Performed By: #### L IPID, TSH, T7, URIC, CMP #### [facility] [address] [place] [address] Dr. Conor Chan Globulin (S) [Mass/Vol] 4.2 g/dL Normal [facility] Comment on above: Performed By: #### L IPID, TSH, T7, URIC, CMP #### [facility] [address] [place] [address] Dr. Conor Chan Glucose [Mass/Vol] 122 mg/dL Critically high 74-106 [facility] Comment on above: Performed By: #### L IPID, TSH, T7, URIC, CMP #### [facility] [address] [place] [address] Dr. Conor Chan Potassium [Moles/Vol] 3.2 mmol/L Critically low 3.4-5.0 [facility] Comment on above: Performed By: #### L IPID, TSH, T7, URIC, CMP #### [facility] [address] [place] [address] Dr. Conor Chan Protein [Mass/Vol] 7.9 g/dL Normal 6.1-8.2 [facility] Comment on above: Performed By: #### L IPID, TSH, T7, URIC, CMP #### [facility] [address] [place] [address] Dr. Conor Chan Sodium [Moles/Vol] 130 mmol/L Critically low 137-145 [facility] Comment on above: Performed By: #### L IPID, TSH, T7, URIC, CMP #### [facility] [address] [place] [address] Dr. Conor Chan Urea nitrogen [Mass/Vol] 15.0 mg/dL Normal 9.0-20.0 [facility] Comment on above: Performed By: #### L IPID, TSH, T7, URIC, CMP #### [facility] [address] [place] [address] Dr. Conor Chan Urea nitrogen/Creatinine [Mass ratio] 14.4 mg/mg Normal [facility] Comment on above: Performed By: #### L IPID, TSH, T7, URIC, CMP #### [facility] [address] [place] [address] Dr. Conor Chan TSHon 12-20-2021 TSH 2.122 uIU/mL Normal 0.470-4.680 [facility] Comment on above: Performed By: #### L IPID, TSH, T7, URIC, CMP #### [facility] [address] [place] [address] Dr. Conor Chan TSH RANGE SEE BELOW Normal [facility] Comment on above: Result Comment: <0.3 4 UIU/ml HYPERTHYROID 0.34-5.60 UIU/ml EUTHYROID >5.60 UIU/ml HYPOTHYROID Performed By: #### L IPID, TSH, T7, URIC, CMP #### [facility] [address] [address] [address] Conor Chan URIC ACID SERUMon 12-20-2021 Urate [Mass/Vol] 7.3 mg/dL Normal 3.5-8.5 [facility] Comment on above: Performed By: #### L IPID, TSH, T7, URIC, CMP #### [facility] [address] [address] [address] Conor Chan XR LSPINE MIN 4 [...] by: OSCAR FRANCO Date: 2021-12-20 10:06 Normal [facility] Vital Signs Date Time Vital Sign Value Performing Clinician Idalmis rausch 2023 08:03-0400 Body height 182.9 cm Bilal Butt Work Phone: [facility] 2023 08:03-0400 Body weight 120.2 kg Bilal Butt Work Phone: [facility] 06-02-2023 13:26-0400 Body height 182.9 cm Darren Harris APRN.PIPELINE DISPATCH OPERATOR Work Phone: [facility] 06-02-2023 13:26-0400 Body weight 117.03 kg Darren Harris APRN.PIPELINE DISPATCH OPERATOR Work Phone: [facility] 06-02-2023 13:26-0400 Diastolic blood pressure 84 mm[Hg] Darren Harris APRN.KIRILL Work Phone: [facility] 06-02-2023 13:26-0400 Heart rate 63 /min Darren Harris APRN.KIRILL Work Phone: [facility] 08-07-2023 13:26-0400 Respiratory rate 18 /min Darren Clara MANAGER DR[address].PIPELINE DISPATCH OPERATOR Work Phone: [facility] 06-02-2023 13:26-0400 SaO2% (BldA) [Mass fraction] 95 % Darren Harris MANAGER DRIVE.PIPELINE DISPATCH OPERATOR Work Phone: [facility] 06-02-2023 13:26-0400 Systolic blood pressure 128 mm[Hg] Darren Clara MANAGER DRIVE.PIPELINE DISPATCH OPERATOR Work Phone: [facility] 05-13-2023 11:22-0400 Body height 182.88 cm Avi Lauren Hoy Work Phone: [facility] [address] DO Work Phone: 05-13-2023 11:22-0400 Body mass index (BMI) [Ratio] 36.21 kg/m2 Avi M Hoy Work Phone: [facility] DO Work Phone: 05-13-2023 11:22-0400 Body surface area Derived from formula 2.41 m2 Avi Lauren Hoy Work Phone: [facility] 250 DO Work Phone: 05-13-2023 11:22-0400 Body weight 121.11 kg Avi M Hoy Work Phone: [facility] DO Work Phone: 05-13-2023 11:22-0400 Diastolic blood pressure 78 mm[Hg] Avi M Hoy Work Phone: [facility] DO Work Phone: 05-13-2023 11:22-0400 Heart rate 64 /min Avi M Hoy Work Phone: [facility] DO Work Phone: 05-13-2023 11:22-0400 Systolic blood pressure 132 mm[Hg] Avi M Hoy Work Phone: [facility] DO Work Phone: 05-07-2022 11:36-0400 Body height 182.88 cm Avi M Hoy Work Phone: [facility] DO Work Phone: 05-07-2022 11:36-0400 Body mass index (BMI) [Ratio] 38.38 kg/m2 Avi M Hoy Work Phone: [facility] DO Work Phone: 05-07-2022 11:36-0400 Body surface area Derived from formula 2.47 m2 Avi M Hoy Work Phone: [facility] 250 DO Work Phone: 05-07-2022 11:36-0400 Body weight 128.37 kg Avi M Hoy Work Phone: [facility] DO Work Phone: 05-07-2022 11:36-0400 Diastolic blood pressure 72 mm[Hg] Avi M Hoy Work Phone: [facility] DO Work Phone: 05-07-2022 11:36-0400 Heart rate 66 /min Avi M Hoy Work Phone: [facility] DO Work Phone: 05-07-2022 11:36-0400 Systolic blood pressure 110 mm[Hg] Avi M Hoy Work Phone: [facility] DO Work Phone: Encounters Encounter Date Encounter Type Care Provider Facility Start: 2023 End: 2023 ambulatory JUAN R BEY Facility:[facility] Start: 2023 End: 2023 Office outpatient new 30 minutes Juan R Bey MD Work Phone: [facility] Comment on above: Meralgia paresthetic a of left side (Primary Dx); Chronic midline low back pain without sciatica Start: 08-01-2023 End: 08-01-2023 ambulatory Darren Harris MANAGER [address]IVE.PIPELINE DISPATCH OPERATOR Work Phone: [facility] [place] Comment on above: Dr chong Cut me open Start: 07-01-2023 End: 07-01-2023 ambulatory JESSICA CAMP Facility:[facility] Start: 06-26-2023 Telephone encounter Jessica Camp DO Work Phone: [facility] Comment on above: Preparations For Pro cedures (Pre-injection instructions) Start: 06-19-2023 Orders Only Jessica hall DO Work Phone: Neurology Comment on above: Lumbar radiculopathy (Primary Dx); Displacement of lumbar intervertebral disc without myelopathy Start: 06-02-2023 End: 06-03-2023 ambulatory DARREN HARRIS Facility:[facility] Start: 06-02-2023 End: 06-02-2023 Patient encounter procedure Darren Harris MANAGER DRIVE.PIPELINE DISPATCH OPERATOR Work Phone: [facility] [place] Comment on above: Radiculopathy, lumba r region (Primary Dx); Lumbar disc herniation Start: 05-13-2023 Office outpatient vi sit 25 minutes Avi Cervantes Work Phone: [facility] DO Work Phone: Start: 05-13-[address] Reilly Nelson II Facility: Start: 05-06-2023 Chart abstracting None (Historical) Neurology Start: 12-16-2022 Rx Renewal Avi Cervantes Work Phone: [facility] DO Work Phone: Start: 07-17-2022 End: 07-17-2022 ambulatory Bijan Betts Jr Facility:[facility] Start: 07-17-2022 End: 07-17-2022 Departed Referred MD Avi Cervantes Work Phone: [facility] 250 Start: 05-07-2022 Office outpatient vi sit 25 minutes Avi Cervantes Work Phone: [facility] 250 DO Work Phone: Start: 01-03-[address] AVI CERVANTES Facility :[facility] Start: 12-21-2021 Encounter for genera l adult medical examination without abnormal findings DR AVI CERVANTES [facility] Start: 12-20-2021 End: 12-21-[address] AVI CERVANTES Facility:[facility] Start: 12-20-2021 End: 12-21-2021 Encounter for general adult medical examination without abnormal findings DR AVI CERVANTES Facility:[facility] Start: 12-10-2021 Rx Renewal Reilly mcmahon MD Work Phone: [facility] 250 DO Work Phone: Procedures Date Procedure Procedure Detail Performing Clinician Start: 07-17-2022 Radiologic examinati on of knee MD Avi Cervantes Work Phone: Start: 12-20-[address] RONDA CERVANTES Comment on above: Performed By: #### P [facility] #### [facility] [address] [place] [address] Dr. Conor Chan Start: 06-09-2020 Total colonoscopy Chaz Nelson MD Work Phone: Start: 07-02-2019 Colonoscopy Darren harris APRN.PIPELINE DISPATCH OPERATOR Work Phone: Cardiac catheterization Will renetta Nelson MD Work Phone: Cholecystectomy Reilly miranda MD Work Phone: Plan of Treatment Date Care Activity Detail Author Start: 12-20-2026 PROSTATE CANCER SCREENING DISCUSSION PROSTATE CANCER SCREENING DISCUSSION [facility] Start: 06-27-2023 Influenza vaccination [facility] Start: 05-13-2023 FUV, Provider: Reilly Nelson, Status: Pen, Time: 11:10 AM FUV, Provider: Reilly Nelson, Status: Pen, Time: 11:10 AM [facility] 250 DO Work Phone: Start: 10-27-2022 DEPRESSION ASSESSMENT DEPRESSION ASS ESSMENT [facility] Start: 05-17-2022 COVID-19 VACCINE (6 - Pfizer series) COVID-19 VACCINE (6 - Pfizer series) [facility] Start: 05-15-2022 FUV, Provider: Reilly Nelson, Status: Pen, Time: 2:00 PM FUV, Provider: Reilly Nelson, Status: Pen, Time: 2:00 PM [facility] DO Work Phone: Start: 07-02-2020 Colonoscopy COLONOSCOPY [facility] Start: 07-02-2020 COLORECTAL CANCER SCREENING COLORECTAL CANCER SCREENING [facility] Start: 2016 Prostate Cancer Screening Discussion Prostate Cancer Screening Discussion [facility] Start: 2011 SHINGRIX VACCINE (1 of 2) SHINGRIX VACCINE (1 of 2) [facility] Start: 2006 COLOGUARD (FIT-DNA) COLOGUARD (FIT-D NA) [facility] Start: [address] COLONOGRAPHY [facility] Start: 2006 DIABETES SCREEN DIABETES SCREEN [facility] Start: 2006 Diabetes Screening Diabetes Screenin g [facility] Start: 2006 FECAL OCCULT BLOOD FECAL OCCULT BLOO D [facility] Start: 2006 SIGMOIDOSCOPY SIGMOIDOSCOPY [facility] Start: 1996 Lipid 1996 panel - S hayden or Plasma Lipid Screening [facility] Start: 1996 LIPID SCREEN LIPID SCREEN [facility] Start: 1980 Urine microalbumin profile [facility] Start: 1979 HEPATITIS C SCREENING HEPATITIS C SC REENING [facility] Start: 1979 HIV SCREENING HIV SCREENING [facility] End: 09-02-2024 Radex spine lumbosacral minimum 4 views XR LUMBAR MOTION 4V AP/LAT/ FLEX/EXT Radiology Routine Meralgia paresthetica of left side 1 Occurrences starting 2023 until 09/02/2024 [facility] Work Phone: Comment on above: 1 Occurrences starti ng 2023 until 09/02/2024 SPINE INTERVENTION PROCEDURE SPINE INTERVENTION PROCEDURE Procedures Routine Radiculopathy, lumbar region Lumbar disc herniation Ordered: 06/02/2023 [facility] Work Phone: Comment on above: Ordered: 06/02/2023 [facility] RACHAEL [facility] Immunizations Immunization Date Immunization Notes Care Provider Deepa rehman 10-14-2022 Pfizer COVID-19 Vac Bivalent 30 MCG/0.3ML Intramuscular Suspension Avi M Hoy Work Phone: [facility] DO Work Phone: 10-03-2022 influenza, injectabl e, quadrivalent, preservative free Avi M Hoy Work Phone: [facility] 250 DO Work Phone: 10-03-2022 influenza virus vacc ine, unspecified formulation Darren Harris APRN.PIPELINE DISPATCH OPERATOR Work Phone: [facility] 03-22-2022 Comirnaty 30 MCG/0.3 ML Intramuscular Suspension Avi M Hoy Work Phone: [facility] 250 DO Work Phone: 03-22-2022 Moderna COVID-19 Vac cine 100 MCG/0.5ML Intramuscular Suspension Avi M Hoy Work Phone: [facility] Comment on above: Series: 03-22-2022 zoster vaccine recombinant Avi M Hoy Work Phone: [facility] DO Work Phone: 09-03-2021 Pfizer-BioNTech COVI D-19 Vacc 30 MCG/0.3ML Intramuscular Suspension Avi M Hoy Work Phone: [facility] 08-25-2021 influenza, injectabl e, quadrivalent, preservative free Avi M Hoy Work Phone: [facility] DO Work Phone: 08-25-2021 zoster vaccine recombinant Avi M Hoy Work Phone: [facility] 250 DO Work Phone: 02-13-2021 Pfizer-BioNTech COVI D-19 Vacc 30 MCG/0.3ML Intramuscular Suspension Avi Cervantes Work Phone: [facility] 01-13-2021 Pfizer-BioNTech COVI D-19 Vacc 30 MCG/0.3ML Intramuscular Suspension Avi Cervantes Work Phone: [facility] 12-23-2020 Pfizer-BioNTech COVI D-19 Vacc 30 MCG/0.3ML Intramuscular Suspension Avi Cervantes Work Phone: [facility] 08-28-2020 influenza, injectabl e, quadrivalent, preservative free Avi Cervantes Work Phone: [facility] DO Work Phone: 08-28-2020 influenza virus vacc ine, unspecified formulation Juan R Bey MD Work Phone: [facility] Payers Date Payer Category Payer Self-pay [id number] [phone] [id number] 2021 Private Health Insurance [employer] A ETNA POS [id number] 2021-Present [phone] [address] [place] [address] POS [id number] 1961 Unknown [id number] 1961 Unknown [id number] 1961 Unknown [id number] 1959 Private Health Insurance [id number] 1958 Self-pay [id number] Unknown Unknown [facility] [id number] Unknown [id number] Social History Date Type Detail Facility Start: 06-02-2023 End: 08-01-2023 Consumes alcohol Consumes alcohol [facility] Comment on above: socially; occasional; Start: 09-28-2020 End: 06-02-2023 Tobacco smoking status NHIS Never smoked tobacco (finding) [facility] Start: 1960 Sex Assigned At Male F [facility] Tobacco smoking stat NHIS Tobacco smoking consumption unknown [facility] Start: 1960 Sex Assigned At Not on file [facility] Start: 06-02-2023 End: 08-01-2023 Gender identity Not on file [facility] Start: 06-02-2023 Tobacco use and exposure Smokeless tobacco non-user [facility] National Score (1-10 0), lower number is lower risk 61 [facility] Start: 07-28-2023 Gender identity Identifies as male gender (finding) [facility] Start: 07-28-2023 Sexual orientation Heterosexual (fin ding) [facility] Clinical Notes 05-06-2023 to 2023 Juan R Bey MD - 2023 8:40 AM EDTPBossman Brian - 2023 7:48 AM EDTTelephone Encounter - Oscar Rollins LPN - 06/26/2023 9:12 AM EDT Note Date & Type Note Facility 2023 Note HNO ID: [id number] Author: Juan R Bey MD Service: ? [...] issues. 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 Author Type: [...] opioids Medications: See medication reconciliation list in [facility] MEDICATIONS: Gabapentin, N[place], Tylenol Have you ever seen a pain [...] or completing routine daily living activities? No [facility] 2023 History of Presen t illness [...] issues. 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 Author Type: Nurse Practitioner Type: Progress Notes Filed: 08/01/2023 1:30 PM Note Text: SPINE SURGERY ESTABLISHED VISIT This is a virtual visit using [email or web address] Video Visit. It required patient-provider interaction for the medical decision making as documented below. DATE OF SERVICE: 08/01/2023 DATE OF LAST VISIT: 06/02/2023 SUBJECTIVE: HPI:Kim Nichols is a 62 year old male presenting via virtual vist s/p Left L5 transforaminal epidural steroid injection on 07/01/[address] Camp. Parks great initially and for the first few [...] which included preparing to see the patient, [id number] patient care, completing clinical documentation, obtaining and/or reviewing separately obtained history, performing a medically appropriate examination, counseling and educating the patient/family/caregiver, independently interpreting results (not separately reported), and communicating results to the patient/family/caregiver. SIGNATURE: Darren Harris APRN.KIRILL PATIENT NAME: Kim Nichols DATE: August 01, 2023 TIME: 12:53 PM PAGER: [facility] 06-26-2023 Miscellaneous Notes Phoned patient and message left for Kim to confirm appointment for Kim Nichols for spine procedure on 07/01/2023. Patient notified that [place] will call patient the night before with the time to arrive for injection. Patient verbalized understanding of the following: -Provided education on spine procedure and answered questions related to spine injection procedure. -Production Assembly Supervisor is needed to drive patient home. -NPO [...] to report. Diabetic: No Patient given number [phone], spine injections schedulers, if there is any [...] POST INJECTION INSTRUCTIONS documented in this encounter [facility] 06-02-2023 Note HNO ID: [id number] Author: Darren Harris APRN.PIPELINE DISPATCH OPERATOR Service: ? Author Type: Nurse Practitioner Type: [...] with him pain. He also is prescribed Ninilchik for breakthrough pain which he only takes [...] Normal. DATA REVIE (more content not included)... [facility] 06-02-2023 History of Presen t illness [...] with him pain. He also is prescribed Ninilchik for breakthrough pain which he only takes [...] which included preparing to see the patient, sxhz-bi-ghhc patient care, completing clinical documentation, obtaining and/or reviewing separately obtained history, performing a medically appropriate examination, counseling and educating the patient/family/caregiver, independently interpreting results (not separately reported), and communicating results to the patient/family/caregiver. SIGNATURE: Darren Harris APRN.CNP PATIENT NAME: Kim Nichols DATE: June 02, 2023 TIME: 1:57 PM PAGER: documented in this encounter [facility] 05-14-2023 Note HNO ID: [id number] Author: Ember Delatorre PA-C Service: ? Author Type: Physician Gun Mechanic Type: Progress Notes Filed: 05/14/2023 4:17 PM Note Text: Per Triage: Kim Nichols is a 62 year old male that requests evaluation of lumbar spine. Per review, they have symptoms of back and LLE pain. Positive for numbness. CMT: Medication: Gabapentin, Tylenol, Ninilchik Studies (Reports unless indicated) MRI Lumbar: L4/5 moderate left foramen narrowing which may contribute to patient's symptoms 2. L5/S1 disc protrusion without significant canal or foramen narrowing. Disposition: Please schedule with surgical SANDY. Consider if injection is appropriate or on effective dose of Neurontin. Also see if symptoms correlate with imaging. [facility] 05-14-2023 History of Presen t illness Narrative Per Triage: Kim Nichols is a 62 year old male that requests evaluation of lumbar spine. Per review, they have symptoms of back and LLE pain. Positive for numbness. CMT: Medication: Gabapentin, Tylenol, N[place] Studies (Reports unless indicated) MRI Lumbar: L4/5 [...] Health Provider or Pain Management Provider at [facility]? No If answer is YES please [...] facility where the MRI/CT/myelogram was completed: [facility] [address] [place] [address] MRI/CT/myelogram viewable in Epic: No If not, please provide [phone] to fax in imaging reports for review. [...] Additional Comments Hydrocodone documented in this encounter [facility] 05-06-2023 Note HNO ID: [id number] Author: Mauricio Kelley Service: ? Author Type: ? Type: Progress Notes Filed: 05/14/2023 4:17 PM Note Text: Patient name: Kim Nichols Are you being referred by a [place] for Spine Health Provider or Pain Management Provider at [facility]? No If answer is YES please [...] where the MRI/CT/myelogram was completed: The [address] [address] MRI/CT/myelogram viewable in Epic: No If not, please provide [phone] to fax in imaging reports for review. [...] the surgery was completed: Additional Comments Hydrocodone [facility] Evaluation note No assessment inform ation [facility] Work Phone: Evaluation note Diagnosis Radiculopathy, lumbar region- Primary Thoracic or lumbosacral neuritis or radiculitis, unspecified Lumbar disc herniation Displacement of lumbar intervertebral disc without myelopathy [facility] Diagnosis Lumbar radiculopathy- Primary Thoracic or lumbosacral neuritis or radiculitis, unspecified Displacement of lumbar intervertebral disc without myelopathy [facility] Diagnosis Meralgia paresthetica of left side- Primary Meralgia paresthetica Chronic midline low back pain without sciatica documented [facility] Present illness NarrativePatient returns in [...] to their favorable impact on blood pressure andcholesterol.-[facility] DO Work Phone: History [...] to call if they arise or occur. -[facility] DO Work Phone: History of Present illness [...] to call if they arise or occur. [facility] DO Work Phone: Reason for referral (narrative)* Diagnostic Procedure Only (Routine) - Pending Review Specialty Diagnoses / Procedures Referred By Contac t Referred To Contact XR IMAGING Diagnoses Meralgia paresthetica of left side Procedures XR LUMBAR MOTION 4V AP/LAT/ FLEX/EXT RADEX SPINE LUMBOSACRAL MINIMUM 4 VIEWS Juan R Bey MD [address] [place] [address] [place] [address] Referral ID Status Reason Start Date Expiration Date Visits Requested Visits Authorized [id number] Pending Review Auto-Generat ed Referral 2023 09/02/2024 1 1 [facility] Summary Purpose Family History No Family [...] and content) DATE CREATED AUTHOR 01/05/2022 [facility] DATE CREATED AUTHOR AUTHOR'S ORGANIZ ATION 07/28/2022 [facility] DATE CREATED AUTHOR AUTHOR'S ORGANIZ ATION 05/14/2023 [facility] DATE CREATED AUTHOR AUTHOR'S ORGANIZ ATION 05/14/2023 [facility] DATE CREATED AUTHOR AUTHOR'S ORGANIZ ATION 2023 [facility] DATE CREATED AUTHOR AUTHOR'S ORGANIZ ATION 08/05/2023 [facility] l Care Teams (unrecognized sec tion and content) Team Status: Inactive Member Role Status Dates Avi Cervantes MD Primary Care Provider Active Bijan Betts Jr, DO Attending Provider Active Team Status: Active Member Role Status Dates Avi Cervantes MD Primary Care Provider Active Senior Manager Relationship Specialty Start Date End Date Avi Cervantes MD [address] [place] [address] Referring Family Medicine 04/24/23 Senior Manager Relationship Specialty Start Date End Date Avi Cervantes MD [address] [place] [address] Referring Family Medicine 04/24/23 Senior Manager Relationship Specialty Start Date End Date Avi Cervantes MD [address] [place] [address] Referring Family Medicine 04/24/23 Senior Manager Relationship Specialty Start Date End Date Avi Cervantes MD [address] [place] [facility] [place] [address] PCP - General Family Medicine 06/25/23 Avi Cervantes MD [address] [place] [facility] [place] [address] Referring Family Medicine 04/24/23 Senior Manager Relationship Specialty Start Date End Date Avi Cervantes MD [address] [place] [address] PCP - General Family Medicine 06/25/23 Avi Cervantes MD [address] [place] [address] Referring Family Medicine 04/24/23 Senior Manager Relationship Specialty Start Date End Date Avi Cervantes MD [address] [place] [address] PCP - General Family Medicine 06/25/23 Avi Cervantes MD [address] [place] [address] Referring Family Medicine 04/24/23 Goals (unrecognized section [...] or prosecute any alcohol or drug abuse patient.[facility] the event this information is protected by the Federal Confidentiality of Alcohol and Drug Abuse Patient Records regulations: The Federal rules restrict any use of the information to criminally investigate or prosecute any alcohol or drug abuse patient.[facility] the event this information is protected by the Federal Confidentiality of Alcohol and Drug Abuse Patient Records regulations: The Federal rules restrict any use of the information to criminally investigate or prosecute any alcohol or drug abuse patient.[facility] the event this information is protected by the Federal Confidentiality of Alcohol and Drug Abuse Patient Records regulations: The Federal rules restrict any use of the information to criminally investigate or prosecute any alcohol or drug abuse patient.[facility] the event this information is protected by the Federal Confidentiality of Alcohol and Drug Abuse Patient Records regulations: The Federal rules restrict any use of the information to criminally investigate or prosecute any alcohol or drug abuse patient.[facility] the event this information is protected by the Federal Confidentiality of Alcohol and Drug Abuse Patient Records regulations: The Federal rules restrict any use of the information to criminally investigate or prosecute any alcohol or drug abuse patient.[facility] Reason for Visit (unrecogniz ed section [...] BE BASED ON THE PRIMARY CLINICAL RECORDS. [facility] [employer] [facility]. provides no warranty or guarantee of the accuracy or completeness of information in this document.
== END 2024-05-28 09:23 | disposition home or self-care (01) ==
LOC: MN 09:23
PROVIDERS: PCP Family Medicine
DX: E78.00 Pure hypercholesterolemia, unspecified (principal); Z68.41 Body mass index [BMI] 40.0-44.9, adult
CPT/HCPCS: 97802

== ENCOUNTER 2024-06-12 09:35 | Outpatient (OUT) | payer OTHER, SELFPAY ==
--- OUTSIDE RECORDS SUMMARY | 2024-06-12 09:37 | XMS_ITS | CCD ---
Author Organization [facility] Care Team Providers Care Government Affairs Fellow Name Role Phone Unavailable Unavailable DR AVI CERVANTES Attending Unavailable MARLENI, DR CÁRDENAS Admitting Unavailable MARLENI, DR CÁRDENAS Attending Unavailable DR AVI CERVANTES Admitting Unavailable DR AVI CERVANTES Consulting Unavailable WEST, DR OSCAR Ingram Consulting Unavailable Avi Cervantes Unavailable MD Avi Cervantes Primary Care Provider [phone] DO Bijan Betts Jr Attending Provider [phone] Bijan Betts Jr Attending Unavailable Bijan Betts [...] Translations: [amoxicillin] Drug Allergy 09-26-2020 [facility] (1 source) Amoxicillin Drug Allergy [facility] (1 source) traMADol Drug Allergy [facility] (1 source) Amoxicillin Drug Allergy 09-26-2020 [facility] Medications Current Medications Medication Drug [...] P O Q6H September 26, 2020 1:00am Nerstrand 5-325 MG T ABS TAKE 1 TABLET [...] [Coronary atherosclerosis of unspecified type of vessel, crow or graft] Chronic Diabetes mellitus without complication [...] CNOV Office Visit (SPSLUH ) KIM NICHOLS ([id number]) 1960 M Date Time Provider Department 08/04/23 8:00 AM [facility] During your visit today, we recorded the [...] opioids Medications: See medication reconciliation list in [facility] MEDICATIONS: Gabapentin, Nerstrand, Tylenol Have you ever seen a pain [...] issues. 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 [facility] 07-08-2023 [facility] Telephone (SPNMMN) KIM NICHOLS ([id number]) 1960 M Date Time Provider Department 07/08/23 [facility]ESSICA CAMP [facility] During your visit today, we recorded the following information about you: Stacy Gallagher RN 07/08/2023 12:56 PM Signed Post Spine Injection phone call: [phone] on 07/08/23 Patient denies fever, chills, new [...] appointment 2-4 weeks post procedure by calling [phone] Patient does not have any questions or [...] Status:Closed by STACY GALLAGHER on 07/08/23 Normal [facility] HISTORY PHYSICALon HISTORY PHYSICAL HNO ID: [id number] Author: Sherice Galvin APRN.BARKING MACHINE FEEDER Service: ? Author Type: Nurse Practitioner Type: [...] July 01, 2023 TIME: 9:04 AM Normal [facility] OPERATIVE NOon 07-01-2023 OPERATIVE NO HNO ID: [id number] Author: Jessica Camp DO Service: Physical Medicine AND Rehabilitation Author Type: Physician Type: Operative Report Filed: 07/01/2023 9:40 AM Note Text: PROCEDURE REPORT Surgery/Procedure Date: July 01, 2023 Interventionalist: Jessica Camp DO Procedure(s): Left L5 transforaminal epidural steroid injection Pre-Op/Pre-Procedure Diagnosis: Lumbar radiculopathy Post-Op Diagnosis: same SUBJECTIVE: Kim Nichols is a 62 year old male, who presents to the [facility] for a left L5 transforaminal epidural steroid injection. This is his first (1) procedure. 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 Pain is central low [...] in stable condition. [facility] KIM NICHOLS ([id number]) 1960 M Date Time Provider Department 06/26/23 [facility] During your visit today, we recorded the following information about you: Oscar Rollins LPN 06/26/2023 9:20 AM Signed Phoned patient and message left for Kim to confirm appointment for Kim Sureshjamal for spine procedure on 07/01/2023. Patient notified that [place] will call patient the night before with the time to arrive for injection. Patient verbalized understanding of the following: -Provided education on spine procedure and answered questions related to spine injection procedure. -Small Package And Bundle Sorter Clerk is needed to drive patient home. -NPO [...] to report. Diabetic: No Patient given number [phone], spine injections schedulers, if there is any [...] Encounter Status:Closed by OSCAR ROLLINS on 06/26/23 [facility] 06-02-2023 CNOV Office Visit (SPNSMN ) KIM NICHOLS ([id number]) 1960 M Date Time Provider Department 06/02/23 [...] with him pain. He also is prescribed Nerstrand for breakthrough pain which he only takes [...] well de (more content not included)... Normal [facility] Office Visit (Cardiology)on 05-13-2023 Follow-up visit Diagnoses/Problems Assessed Coronary disease (414.00) (I25.10) Essential hypertension, benign (401.1) (I10) Hyperlipidemia (272.4) (E78.5) Class 2 obesity with body mass index (BMI) of 36.0 to 36.9 in adult (278.00,V85.36) (E66.9,Z68.36) Never a smoker Orders Class 2 obesity with body mass index (BMI) of 36.0 to 36.9 in adult Healthy Weight Tips; Status:Complete - Retrospective Authorization; Done: [id number] Some eating tips that can help you lose weight.; Status:Complete - Retrospective Authorization; Done: [id number] Coronary disease, Hyperlipidemia Renew: Aspirin EC Low Dose 81 MG Oral Tablet Delayed Release; TAKE 1 TABLET DAILY DIRECTED Hyperlipidemia Renew: Rosuvastatin Calcium 20 MG Oral Tablet; take 1 tablet by mouth at bedtime SocHx: Never a smoker Tobacco Use Screening; Status:Complete; Done: [id number] Patient Instructions Please bring all medicines, vitamins, [...] MG Oral CapsuleTAKE 1 CAPSULE TWICE DAILY. Nerstrand 5-325 MG TABSTAKE 1 TABLET EVERY 4 [...] negative for complaint. Vitals Vital Signs Recorded: [id number] 11:22AM Heart Rate64, R Radial Xkdsooci250, RUE, Sitting Jhyphkojk99, RUE, Sitting Height6 ft Rjopqw651 lb BMI Uhjsjvqrda09.21 kg/m2 BSA Calculated2.41 Tobacco Useb) No PHQ-2 [...] Screening.on 023 Adult depression screening assessment No [facility] 250 DO Work Phone: Tobacco use status [facility] b) No [facility] 250 DO Work Phone: XR knee LT 4V*on 07-17-2022 XR knee LT 4V* [facility] [place] [address] [place] [address] XRay Report Signed Patient: Kim Nichols MR#: [id number] : 1960 Acct:[id number] Age/Sex: 61 / M ADM Date: 07/17/22 [...] Stacy Ellis M.D.07/17/2022 1:18 PM Dictation Location: [place] [address] Transcribed By: [facility] 07/17/22 1318 Dictated By: Stacy Ellis MD 07/17/22 1315 Signed By: 07/17/22 1318 [facility] Tobacco Screening.on 022 Adult depression screening assessment No [facility] 250 DO Work Phone: Fall risk assessment c) Not medically indicated [facility] 250 DO Work Phone: Tobacco use status [facility] b) No [facility] 250 DO Work Phone: H PYLORI ANTIBODY IGGon 11-28 H. PYLORI IGG ABS 0.45 Index Value Normal 0.00-0.79 [facility] Comment on above: Result Comment: Nega tive <0.80 Equivocal 0.80 - 0.89 Positive >0.89 Performed By: #### L IPID, TSH, T7, URIC, CMP #### [facility] [address] [address] [address] Conor Chan INSULINon 12-21-2021 Insulin 55.2 uIU/mL Critically high 2.6-24.[address] [facility] Comment on above: Performed By: #### I NSULIN #### [facility] [address] [address] [address] Conor Chan TESTOSTERONE, TOTALon 2021 Testosterone [Mass/Vol] 380 ng/dL Normal 264-916 [facility] Comment on above: Result Comment: Adul t male reference interval is based on a population of healthy nonobese males (BMI <30) between 19 and 39 years old. Travon, et.al. JCEM 2017,102;9935-8971. PMID: [id number]. Performed By: #### L IPID, TSH, T7, URIC, CMP #### [facility] [address] [place] [address] Dr. Conor Chan CBC AUTO DIFFon 12-20-2021 BASO # 0.0 103/ul Normal 0.0-0.1 [facility] Comment on above: Performed By: #### C BC #### [facility] [address] [place] [address] Dr. Conor Chan Basophils/100 WBC (Bld) 0.5 % Normal 0.2-2.0 [facility] Comment on above: Performed By: #### C BC #### [facility] [address] [place] [address] Dr. Conor Chan EO # 0.2 103/ul Normal 0.0-0.7 [facility] Comment on above: Performed By: #### C BC #### [facility] [address] [place] [address] Dr. Conor Chan Eosinophils/100 WBC (Bld) 3.5 % Normal 0.9-7.0 [facility] Comment on above: Performed By: #### C BC #### [facility] [address] [place] [address] Dr. Conor Chan Erythrocyte distribution width (RBC) [Ratio] 13.8 % Normal 11.0-15.0 [facility] Comment on above: Performed By: #### C BC #### [facility] [address] [place] [address] Dr. Conor Chan Hematocrit (Bld) [Volume fraction] 48.5 % Normal 42.0-54.0 [facility] Comment on above: Performed By: #### C BC #### [facility] [address] [place] [address] Dr. Conor Chan Hemoglobin (Bld) [Mass/Vol] 16.3 g/dL Normal 14.0-18.0 [facility] Comment on above: Performed By: #### C BC #### [facility] [address] [place] [address] Dr. Conor Chan IG # 0.02 10e3/ul Normal 0.00-0.03 [facility] Comment on above: Performed By: #### C BC #### [facility] [address] [place] [address] Dr. Conor Chan IG % 0.3 % Normal 0.0-0.5 [facility] Comment on above: Performed By: #### C BC #### [facility] [address] [place] [address] Dr. Conor Chan LYMPH # 1.4 103/ul Normal 1.2-3.8 [facility] Comment on above: Performed By: #### C BC #### [facility] [address] [address] [address] Conor Chan Lymphocytes/100 WBC (Bld) 21.7 % Normal 20.5-60.0 [facility] Comment on above: Performed By: #### C BC #### [facility] [address] [place] [address] Dr. Conor Chan MANUAL DIFF REQ NO Normal [facility] Comment on above: Performed By: #### C BC #### [facility] [address] [place] [address] Dr. Conor Chan MCH (RBC) [Entitic mass] 28.5 pg Normal 25.9-34.0 [facility] Comment on above: Performed By: #### C BC #### [facility] [address] [place] [address] Dr. Conor Chan MCHC (RBC) [Mass/Vol] 33.6 g/dL Normal 29.9-35.2 [facility] Comment on above: Performed By: #### C BC #### [facility] [address] [place] [address] Dr. Conor Chan MCV (RBC) [Entitic vol] 84.9 fL Normal 80.0-94.0 [facility] Comment on above: Performed By: #### C BC #### [facility] [address] [place] [address] Dr. Cnoor Chan MONO # 0.6 103/ul Normal 0.3-0.8 [facility] Comment on above: Performed By: #### C BC #### [facility] [address] [place] [address] Dr. Conor Chan Monocytes/100 WBC (Bld) 9.3 % Normal 1.7-12.0 [facility] Comment on above: Performed By: #### C BC #### [facility] [address] [address] [address] Conor Chan NEUT # 4.1 103/ul Normal 1.4-6.5 [facility] Comment on above: Performed By: #### C BC #### [facility] [address] [place] [address] Dr. Conor Chan Neutrophils/100 WBC (Bld) 64.7 % Normal 43.0-75.0 [facility] Comment on above: Performed By: #### C BC #### [facility] [address] [place] [address] Dr. Conor Chan Platelet mean volume (Bld) [Entitic vol] 9.8 fL Normal 9.5-13.5 [facility] Comment on above: Performed By: #### C BC #### [facility] [address] [place] [address] Dr. Conor Chan PLT 235 103/ul Normal 150-450 [facility] Comment on above: Performed By: #### C BC #### [facility] [address] [place] [address] Dr. Conor Chan RBC 5.71 106/ul Normal 4.70-6.10 [facility] Comment on above: Performed By: #### C BC #### [facility] [address] [place] [address] Dr. Conor Chan WBC 6.4 103/ul Normal 4.0-11.0 [facility] Comment on above: Performed By: #### C BC #### [facility] [address] [place] [address] Dr. Conor Chan FREE THYROXINE INDEX T7on FTI 2.89 Normal [facility] Comment on above: Performed By: #### L IPID, TSH, T7, URIC, CMP #### [facility] [address] [place] [address] Dr. Conor Chan T3U 34.0 % Normal 23.5-40.5 [facility] Comment on above: Performed By: #### L IPID, TSH, T7, URIC, CMP #### [facility] [address] [place], [place] [id number] Dr. Conor Chan T4 [Mass/Vol] 8.50 ug/dL Normal 5.53-11.00 [facility] Comment on above: Performed By: #### L IPID, TSH, T7, URIC, CMP #### [facility] [address] [address] [address] Conor Chan GLYCOHEMOGLOBIN A1Con 2021 ADA RECOMMENDATION ADA THERAPEUTIC TARGET 6.0 - 7.0 ACTION SUGGESTED > 7.0 Normal [facility] Comment on above: Performed By: #### A 1C #### [facility] [address] [place] [address] Dr. Conor Chan Glucose [Mass/Vol] 126 mg/dL Normal [facility] [place] [facility] Comment on above: Performed By: #### A 1C #### [facility] [address] [place] [address] Dr. Conor Chan HbA1c (Bld) [Mass fraction] 6.0 % Normal <=6.0 [facility] Comment on above: Performed By: #### A 1C #### [facility] [address] [place] [address] Dr. Conor Chan LIPID PROFILEon 12-20-2021 CHOL-HDL RATIO NORM SEE BELOW Normal [facility] Comment on above: Result Comment: 3.3 - 4.4 LOW RISK 4.4 - 7.1 AVERAGE RISK 7.1 - 11.0 MODERATE RISK >11.0 HIGH RISK Performed By: #### L IPID, TSH, T7, URIC, CMP #### [facility] [address] [place] [address] Dr. Conor Chan Cholesterol [Mass/Vol] 161 mg/dL Normal <=200 [facility] Comment on above: Performed By: #### L IPID, TSH, T7, URIC, CMP #### [facility] [address] [place] [address] Dr. Conor Chan Cholesterol in HDL [Mass/Vol] 50 mg/dL Normal [facility] Comment on above: Performed By: #### L IPID, TSH, T7, URIC, CMP #### [facility] [address] [address] [address] Conor Chan Cholesterol in LDL [Mass/Vol] 96.0 mg/dL Normal [facility] Comment on above: Performed By: #### L IPID, TSH, T7, URIC, CMP #### [facility] [address] [place] [address] Dr. Conor Chan Cholesterol.total/Ch olesterol in HDL [Mass ratio] 3.2 {ratio} Normal [facility] Comment on above: Performed By: #### L IPID, TSH, T7, URIC, CMP #### [facility] [address] [address] [address] Conor Chan HDL NORMAL > or = 60 mg/dl - LO W CARDIOVASCULAR RISK <40 mg/dl - HIGH CARDIOVASCULAR RISK Normal [facility] Comment on above: Performed By: #### L IPID, TSH, T7, URIC, CMP #### [facility] [address] [place] [address] Dr. Conor Chan LDL CALC NORMAL SEE BELOW Normal [facility] Comment on above: Result Comment: <100 mg/dl OPTIMAL 100 - 129 mg/dl NEAR OR ABOVE OPTIMAL 130 - 159 mg/dl BORDERLINE HIGH 160 - 189 mg/dl HIGH >190 mg/dl VERY HIGH Performed By: #### L IPID, TSH, T7, URIC, CMP #### [facility] [address] [address] [address] Conor Chan Triglyceride [Mass/Vol] 75 mg/dL Normal <=150 [facility] Comment on above: Performed By: #### L IPID, TSH, T7, URIC, CMP #### [facility] [address] [address] [address] Conor Chan VLDL CALC 15.0 mg/dL Normal [facility] Comment on above: Performed By: #### L IPID, TSH, T7, URIC, CMP #### [facility] [address] [address] [address] Conor Chan PROF 14(COMP METB)on 022 Albumin [Mass/Vol] 3.7 g/dL Normal 3.5-5.[address] [facility] [place] [facility] Comment on above: Performed By: #### L IPID, TSH, T7, URIC, CMP #### [facility] [address] [address] [address] Conor Chan Albumin/Globulin [Mass ratio] 0.9 {ratio} Normal [facility] Comment on above: Performed By: #### L IPID, TSH, T7, URIC, CMP #### [facility] [address] [place] [address] Dr. Conor Chan ALP [Catalytic activity/Vol] 58 U/L Normal 38-126 [facility] Comment on above: Performed By: #### L IPID, TSH, T7, URIC, CMP #### [facility] [address] [place] [address] Dr. Conor Chan ALT [Catalytic activity/Vol] 40 U/L Normal 21-72 [facility] Comment on above: Performed By: #### L IPID, TSH, T7, URIC, CMP #### [facility] [address] [place] [address] Dr. Conor Chan Anion gap [Moles/Vol] 5.5 mmol/L Normal [facility] Comment on above: Performed By: #### L IPID, TSH, T7, URIC, CMP #### [facility] [address] [place] [address] Dr. Conor Chan AST [Catalytic activity/Vol] 18 U/L Normal 17-59 [facility] Comment on above: Performed By: #### L IPID, TSH, T7, URIC, CMP #### [facility] [address] [place] [address] Dr. Conor Chan Bilirubin [Mass/Vol] 0.5 mg/dL Normal 0.2-1.3 [facility] Comment on above: Performed By: #### L IPID, TSH, T7, URIC, CMP #### [facility] [address] [place] [address] Dr. Conor Chan Calcium [Mass/Vol] 9.9 mg/dL Normal 8.4-10.2 [facility] Comment on above: Performed By: #### L IPID, TSH, T7, URIC, CMP #### [facility] [address] [place] [address] Dr. Conor Chan Chloride [Moles/Vol] 97 mmol/L Critically low 98-107 [facility] Comment on above: Performed By: #### L IPID, TSH, T7, URIC, CMP #### [facility] [address] [place] [address] Dr. Conor Chan CO2 [Moles/Vol] 30.7 mmol/L Critically high 22.0-30.0 [facility] Comment on above: Performed By: #### L IPID, TSH, T7, URIC, CMP #### [facility] [address] [place] [address] Dr. Conor Chan Creatinine [Mass/Vol] 1.04 mg/dL Normal 0.66-1.25 [facility] Comment on above: Performed By: #### L IPID, TSH, T7, URIC, CMP #### [facility] [address] [place] [address] Dr. Conor Chan EGFR-AF ENGLISH >60 Normal >=[address] [facility] Comment on above: Performed By: #### L IPID, TSH, T7, URIC, CMP #### [facility] [address] [place] [address] Dr. Conor Chan EGFR-NON AF ENGLISH >60 Normal >=60 [facility] Comment on above: Performed By: #### L IPID, TSH, T7, URIC, CMP #### [facility] [address] [place] [address] Dr. Conor Chan Globulin (S) [Mass/Vol] 4.2 g/dL Normal [facility] Comment on above: Performed By: #### L IPID, TSH, T7, URIC, CMP #### [facility] [address] [place] [address] Dr. Conor Chan Glucose [Mass/Vol] 122 mg/dL Critically high 74-106 [facility] Comment on above: Performed By: #### L IPID, TSH, T7, URIC, CMP #### [facility] [address] [place] [address] Dr. Conor Chan Potassium [Moles/Vol] 3.2 mmol/L Critically low 3.4-5.0 [facility] Comment on above: Performed By: #### L IPID, TSH, T7, URIC, CMP #### [facility] [address] [place] [address] Dr. Conor Chan Protein [Mass/Vol] 7.9 g/dL Normal 6.1-8.[address] [facility] Comment on above: Performed By: #### L IPID, TSH, T7, URIC, CMP #### [facility] [address] [place] [address] Dr. Conor Chan Sodium [Moles/Vol] 130 mmol/L Critically low 137-145 [facility] Comment on above: Performed By: #### L IPID, TSH, T7, URIC, CMP #### [facility] [address] [place] [address] Dr. Conor Chan Urea nitrogen [Mass/Vol] 15.0 mg/dL Normal 9.0-20.0 [facility] Comment on above: Performed By: #### L IPID, TSH, T7, URIC, CMP #### [facility] [address] [place] [address] Dr. Conor Chan Urea nitrogen/Creatinine [Mass ratio] 14.4 mg/mg Normal [facility] Comment on above: Performed By: #### L IPID, TSH, T7, URIC, CMP #### [facility] [address] [place] [address] Dr. Conor Chan TSHon 12-20-2021 TSH 2.122 uIU/mL Normal 0.470-4.680 [facility] Comment on above: Performed By: #### L IPID, TSH, T7, URIC, CMP #### [facility] [address] [place] [address] Dr. Conor Chan TSH RANGE SEE BELOW Normal [facility] Comment on above: Result Comment: <0.3 4 UIU/ml HYPERTHYROID 0.34-5.60 UIU/ml EUTHYROID >5.60 UIU/ml HYPOTHYROID Performed By: #### L IPID, TSH, T7, URIC, CMP #### [facility] [address] [address] [address] Conor Chan URIC ACID SERUMon 12-20-2021 Urate [Mass/Vol] 7.3 mg/dL Normal 3.5-8.[address] [facility] Comment on above: Performed By: #### L IPID, TSH, T7, URIC, CMP #### [facility] [address] [address] [address] Conor Chan XR LSPINE MIN 4 [...] by: OSCAR FRANCO Date: 2021-12-20 10:06 Normal [facility] Vital Signs Date Time Vital Sign Value Performing Clinician Idalmis rausch 2023 08:03-0400 Body height 182.9 cm Bilal Butt Work Phone: [facility] 2023 08:03-0400 Body weight 120.2 kg Bilal Butt Work Phone: [facility] 06-02-2023 13:26-0400 Body height 182.9 cm Darren Harris APRN.BARKING MACHINE FEEDER Work Phone: [facility] 06-02-2023 13:26-0400 Body weight 117.03 kg Darren Harris APRN.BARKING MACHINE FEEDER Work Phone: [facility] 06-02-2023 13:26-0400 Diastolic blood pressure 84 mm[Hg] Darren Harris APRN.KIRILL Work Phone: [facility] 06-02-2023 13:26-0400 Heart rate 63 /min Darren Harris APRN.KIRILL Work Phone: [facility] 08-07-2023 13:26-0400 Respiratory rate 18 /min Darren Clara AUTOMOTIVE SERVICE MANAGEMENT TEACHER.BARKING MACHINE FEEDER Work Phone: [facility] 06-02-2023 13:26-0400 SaO2% (BldA) [Mass fraction] 95 % Darren Harris AUTOMOTIVE SERVICE MANAGEMENT TEACHER.BARKING MACHINE FEEDER Work Phone: [facility] [facility] 06-02-2023 13:26-0400 Systolic blood pressure 128 mm[Hg] Darren Clara AUTOMOTIVE SERVICE MANAGEMENT TEACHER.BARKING MACHINE FEEDER Work Phone: [facility] 05-13-2023 11:22-0400 Body height 182.88 cm Avi Lauren Hoy Work Phone: [facility] 250 DO Work Phone: 05-13-2023 11:22-0400 Body mass index (BMI) [Ratio] 36.21 kg/m2 Avi M Hoy Work Phone: [facility] DO Work Phone: 05-13-2023 11:22-0400 Body surface area Derived from formula 2.41 m2 Avi Lauren Hoy Work Phone: [facility] 250 DO Work Phone: 05-13-2023 11:22-0400 Body weight 121.11 kg Avi M Hoy Work Phone: [facility] DO Work Phone: 05-13-2023 11:22-0400 Diastolic blood pressure 78 mm[Hg] Avi M Hoy Work Phone: [facility] DO Work Phone: 05-13-2023 11:22-0400 Heart rate 64 /min Avi M Hoy Work Phone: [facility] DO Work Phone: 05-13-2023 11:22-0400 Systolic blood pressure 132 mm[Hg] Avi M Hoy Work Phone: [facility] DO Work Phone: 05-07-2022 11:36-0400 Body height 182.88 cm Avi M Hoy Work Phone: [facility] DO Work Phone: 05-07-2022 11:36-0400 Body mass index (BMI) [Ratio] 38.38 kg/m2 Avi M Hoy Work Phone: [facility] DO Work Phone: 05-07-2022 11:36-0400 Body surface area Derived from formula 2.47 m2 Avi M Hoy Work Phone: [facility] DO Work Phone: 05-07-2022 11:36-0400 Body weight 128.37 kg Avi M Hoy Work Phone: [facility] DO Work Phone: 05-07-2022 11:36-0400 Diastolic blood pressure 72 mm[Hg] Avi M Hoy Work Phone: [facility] DO Work Phone: 05-07-2022 11:36-0400 Heart rate 66 /min Avi M Hoy Work Phone: [facility] DO Work Phone: 05-07-2022 11:36-0400 Systolic blood pressure 110 mm[Hg] Avi M Hoy Work Phone: [facility] DO Work Phone: Encounters Encounter Date Encounter Type Care Provider Facility Start: 2023 End: 2023 ambulatory JUAN R BEY Facility:[facility] Start: 2023 End: 2023 Office outpatient new 30 minutes Juan R Bey MD Work Phone: [facility] Comment on above: Meralgia paresthetic a of left side (Primary Dx); Chronic midline low back pain without sciatica Start: 08-01-2023 End: 08-01-2023 ambulatory Darren Harris AUTOMOTIVE SERVICE MANAGEMENT TEACHER.BARKING MACHINE FEEDER Work Phone: [facility] Comment on above: Dr chong Cut me open Start: 07-01-2023 End: 07-01-2023 ambulatory JESSICA CAMP Facility:[facility] Start: 06-26-2023 Telephone encounter Jessica Camp DO Work Phone: [facility] Comment on above: Preparations For Pro cedures (Pre-injection instructions) Start: 06-19-2023 Orders Only Jessica hall DO Work Phone: Neurology Comment on above: Lumbar radiculopathy (Primary Dx); Displacement of lumbar intervertebral disc without myelopathy Start: 06-02-2023 End: 06-03-2023 ambulatory DARREN HARRIS Facility:[facility] Start: 06-02-2023 End: 06-02-2023 Patient encounter procedure Darren Harris AUTOMOTIVE SERVICE MANAGEMENT TEACHER.BARKING MACHINE FEEDER Work Phone: [facility] Comment on above: Radiculopathy, lumba r region (Primary Dx); Lumbar disc herniation Start: 05-13-2023 Office outpatient vi sit 25 minutes Avi Cervantes Work Phone: [facility] DO Work Phone: Start: 05-13-[address] Reilly Nelson II Facility: Start: 05-06-2023 Chart abstracting None (Historical) Neurology Start: 12-16-2022 Rx Renewal Avi Cervantes Work Phone: [facility] DO Work Phone: Start: 07-17-2022 End: 07-17-2022 ambulatory Bijan Betts Jr Facility:[facility] Start: 07-17-2022 End: 07-17-2022 Departed Referred MD Avi Cervantes Work Phone: [facility] 250 Start: 05-07-2022 Office outpatient vi sit 25 minutes Avi Cervantes Work Phone: [facility] 250 DO Work Phone: Start: 01-03-[address] AVI CERVANTES Facility :[facility] Start: 12-21-2021 Encounter for genera l adult medical examination without abnormal findings DR AVI CERVANTES [facility] Start: 12-20-2021 End: 12-21-[address] AVI CERVANTES Facility:[facility] Start: 12-20-2021 End: 12-21-2021 Encounter for general adult medical examination without abnormal findings DR AVI CERVANTES Facility:[facility] Start: 12-10-2021 Rx Renewal Reilly mcmahon MD Work Phone: [facility] 250 DO Work Phone: Procedures Date Procedure Procedure Detail Performing Clinician Start: 07-17-2022 Radiologic examinati on of knee MD Avi Cervantes Work Phone: Start: 12-20-[address] RONDA CERVANTES Comment on above: Performed By: #### [facility] #### [facility] [address] [place] [address] Dr. Conor Chan Start: 06-09-2020 Total colonoscopy Chaz Nelson MD Work Phone: Start: 07-02-2019 Colonoscopy Darren harris APRN.BARKING MACHINE FEEDER Work Phone: Cardiac catheterization Will renetta Nelson MD Work Phone: Cholecystectomy Reilly miranda MD Work Phone: Plan of Treatment Date Care Activity Detail Author Start: 12-20-2026 PROSTATE CANCER SCREENING DISCUSSION PROSTATE CANCER SCREENING DISCUSSION [facility] Start: 06-27-2023 Influenza vaccination [facility] Start: 05-13-2023 FUV, Provider: Reilly Nelson, Status: Pen, Time: 11:10 AM FUV, Provider: Reilly Nelson, Status: Pen, Time: 11:10 AM [facility] 250 DO Work Phone: Start: 10-27-2022 DEPRESSION ASSESSMENT DEPRESSION ASS ESSMENT [facility] Start: 05-17-2022 COVID-19 VACCINE (6 - Pfizer series) COVID-19 VACCINE (6 - Pfizer series) [facility] Start: 05-15-2022 FUV, Provider: Reilly Nelson, Status: Pen, Time: 2:00 PM FUV, Provider: Reilly Nelson, Status: Pen, Time: 2:[address] [facility] DO Work Phone: Start: 07-02-2020 Colonoscopy COLONOSCOPY [facility] Start: 07-02-2020 COLORECTAL CANCER SCREENING COLORECTAL CANCER SCREENING [facility] Start: 2016 Prostate Cancer Screening Discussion Prostate Cancer Screening Discussion [facility] Start: 2011 SHINGRIX VACCINE (1 of 2) SHINGRIX VACCINE (1 of 2) [facility] Start: 2006 COLOGUARD (FIT-DNA) COLOGUARD (FIT-D NA) [facility] Start: [address] COLONOGRAPHY [facility] Start: 2006 DIABETES SCREEN DIABETES SCREEN [facility] Start: 2006 Diabetes Screening Diabetes Screenin g [facility] Start: 2006 FECAL OCCULT BLOOD FECAL OCCULT BLOO D [facility] Start: 2006 SIGMOIDOSCOPY SIGMOIDOSCOPY [facility] Start: 1996 Lipid 1996 panel - S hayden or Plasma Lipid Screening [facility] Start: 1996 LIPID SCREEN LIPID SCREEN [facility] Start: 1980 Urine microalbumin profile [facility] Start: 1979 HEPATITIS C SCREENING HEPATITIS C SC REENING [facility] Start: 1979 HIV SCREENING HIV SCREENING [facility] End: 09-02-2024 Radex spine lumbosacral minimum 4 views XR LUMBAR MOTION 4V AP/LAT/ FLEX/EXT Radiology Routine Meralgia paresthetica of left side 1 Occurrences starting 2023 until 09/02/2024 [facility] Work Phone: Comment on above: 1 Occurrences starti ng 2023 until 09/02/2024 SPINE INTERVENTION PROCEDURE SPINE INTERVENTION PROCEDURE Procedures Routine Radiculopathy, lumbar region Lumbar disc herniation Ordered: 06/02/2023 [facility] Work Phone: Comment on above: Ordered: 06/02/2023 [facility] R[facility] Immunizations Immunization Date Immunization Notes Care Provider Deepa rehman 10-14-2022 Pfizer COVID-19 Vac Bivalent 30 MCG/0.3ML Intramuscular Suspension Avi M Hoy Work Phone: [facility] DO Work Phone: 10-03-2022 influenza, injectabl e, quadrivalent, preservative free Avi M Hoy Work Phone: [facility] 250 DO Work Phone: 10-03-2022 influenza virus vacc ine, unspecified formulation Darren Harris APRN.BARKING MACHINE FEEDER Work Phone: [facility] 03-22-2022 Comirnaty 30 MCG/0.3 ML Intramuscular Suspension Avi M Hoy Work Phone: [facility] 250 DO Work Phone: 03-22-2022 Moderna COVID-19 Vac cine 100 MCG/0.5ML Intramuscular Suspension Avi M Hoy Work Phone: [facility] Comment on above: Series: 03-22-2022 zoster vaccine recombinant Avi M Hoy Work Phone: [facility] DO Work Phone: 09-03-2021 Pfizer-BioNTech COVI D-19 Vacc 30 MCG/0.3ML Intramuscular Suspension Avi M Hoy Work Phone: [facility] 08-25-2021 influenza, injectabl e, quadrivalent, preservative free Avi M Hoy Work Phone: [facility] DO Work Phone: 08-25-2021 zoster vaccine recombinant Avi M Hoy Work Phone: [facility] DO Work Phone: 02-13-2021 Pfizer-BioNTech COVI D-19 Vacc 30 MCG/0.3ML Intramuscular Suspension Avi Cervantes Work Phone: [facility] 01-13-2021 Pfizer-BioNTech COVI D-19 Vacc 30 MCG/0.3ML Intramuscular Suspension Avi Cervantes Work Phone: [facility] 12-23-2020 Pfizer-BioNTech COVI D-19 Vacc 30 MCG/0.3ML Intramuscular Suspension Avi Cervantes Work Phone: [facility] 08-28-2020 influenza, injectabl e, quadrivalent, preservative free Avi Cervantes Work Phone: [facility] 250 DO Work Phone: 08-28-2020 influenza virus vacc ine, unspecified formulation Juan R Bey MD Work Phone: [facility] Payers Date Payer Category Payer Self-pay [id number] [id number] 2021 Private Health Insurance [employer] A ETNA POS [id number] 2021-Present [phone] [address] [place] [address] POS [id number] 1961 Unknown [id number] 1961 Unknown [id number] 1961 Unknown [id number] 1959 Private Health Insurance [id number] 1958 Self-pay [id number] Unknown Unknown [facility] [id number] Unknown [id number] Social History Date Type Detail Facility Start: 06-02-2023 End: 08-01-2023 Consumes alcohol Consumes alcohol [facility] Comment on above: socially; occasional; Start: 09-28-2020 End: 06-02-2023 Tobacco smoking status NHIS Never smoked tobacco (finding) [facility] Start: 1960 Sex Assigned At Male F [facility] Tobacco smoking stat NHIS Tobacco smoking consumption unknown [facility] Start: 1960 Sex Assigned At Not on file [facility] Start: 06-02-2023 End: 08-01-2023 Gender identity Not on file [facility] Start: 06-02-2023 Tobacco use and exposure Smokeless tobacco non-user [facility] National Score (1-10 0), lower number is lower risk 61 [facility] Start: 07-28-2023 Gender identity Identifies as male gender (finding) [facility] Start: 07-28-2023 Sexual orientation Heterosexual (fin ding) [facility] Clinical Notes 05-06-2023 to 2023 Juan R Bey MD - 2023 8:40 AM EDTPBossman Brian - 2023 7:48 AM EDTTelephone Encounter - Oscar Rollins LPN - 06/26/2023 9:12 AM EDT Note Date & Type Note Facility 2023 Note HNO ID: [id number] Author: Juan R Bey MD Service: ? [...] issues. 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 Author Type: [...] opioids Medications: See medication reconciliation list in [facility] MEDICATIONS: Gabapentin, Nerstrand, Tylenol Have you ever seen a pain [...] or completing routine daily living activities? No [facility] 2023 History of Presen t illness Narrative [...] issues. 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 MEDICATIONS: Gabapentin, Nerstrand, Tylenol Have you ever seen a pain [...] No Bossman Escoto documented in this encounter [facility] 08-01-2023 Note HNO ID: [id number] Author: Darren Harris APRN.KIRILL Service: ? Author Type: Nurse Practitioner Type: Progress Notes Filed: 08/01/2023 1:30 PM Note Text: SPINE SURGERY ESTABLISHED VISIT This is a virtual visit using [employer] Video Visit. It required patient-provider interaction for the medical decision making as documented below. DATE OF SERVICE: 08/01/2023 DATE OF LAST VISIT: 06/02/2023 SUBJECTIVE: HPI:Kim Nichols is a 62 year old male presenting via virtual vist s/p Left L5 transforaminal epidural steroid injection on 07/01/[address] Camp. [place] great initially and for the first few [...] which included preparing to see the patient, [id number] patient care, completing clinical documentation, obtaining and/or reviewing separately obtained history, performing a medically appropriate examination, counseling and educating the patient/family/caregiver, independently interpreting results (not separately reported), and communicating results to the patient/family/caregiver. SIGNATURE: Darren Harris APRN.KIRILL PATIENT NAME: Kim Nichols DATE: August 01, 2023 TIME: 12:53 PM PAGER: [facility] 06-26-2023 Miscellaneous Notes Phoned patient and message left for Kim to confirm appointment for Kim Nichols for spine procedure on 07/01/2023. Patient notified that [place] will call patient the night before with the time to arrive for injection. Patient verbalized understanding of the following: -Provided education on spine procedure and answered questions related to spine injection procedure. -Small Package And Bundle Sorter Clerk is needed to drive patient home. -NPO [...] to report. Diabetic: No Patient given number [phone], spine injections schedulers, if there is any [...] POST INJECTION INSTRUCTIONS documented in this encounter [facility] 06-02-2023 Note HNO ID: [id number] Author: Darren Harris APRN.BARKING MACHINE FEEDER Service: ? Author Type: Nurse Practitioner Type: [...] with him pain. He also is prescribed Nerstrand for breakthrough pain which he only takes [...] Normal. DATA REVIE (more content not included)... [facility] 06-02-2023 History of Presen t illness Narrative [...] with him pain. He also is prescribed Nerstrand for breakthrough pain which he only takes [...] which included preparing to see the patient, [id number] patient care, completing clinical documentation, obtaining and/or reviewing separately obtained history, performing a medically appropriate examination, counseling and educating the patient/family/caregiver, independently interpreting results (not separately reported), and communicating results to the patient/family/caregiver. SIGNATURE: Darren Harris APRN.CNP PATIENT NAME: Kim Nichols DATE: June 02, 2023 TIME: 1:57 PM PAGER: documented in this encounter [facility] 05-14-2023 Note HNO ID: [id number] Author: Ember Delatorre PA-C Service: ? Author Type: Physician Medical Recruiter Type: Progress Notes Filed: 05/14/2023 4:17 PM Note Text: Per Triage: Kim Nichols is a 62 year old male that requests evaluation of lumbar spine. Per review, they have symptoms of back and LLE pain. Positive for numbness. CMT: Medication: Gabapentin, Tylenol, Nerstrand Studies (Reports unless indicated) MRI Lumbar: L4/5 moderate left foramen narrowing which may contribute to patient's symptoms 2. L5/S1 disc protrusion without significant canal or foramen narrowing. Disposition: Please schedule with surgical SANDY. Consider if injection is appropriate or on effective dose of Neurontin. Also see if symptoms correlate with imaging. [facility] 05-14-2023 History of Presen t illness Narrative Per Triage: Kim Nichols is a 62 year old male that requests evaluation of lumbar spine. Per review, they have symptoms of back and LLE pain. Positive for numbness. CMT: Medication: Gabapentin, Tylenol, Nerstrand Studies (Reports unless indicated) MRI Lumbar: L4/5 [...] Health Provider or Pain Management Provider at [facility]? No If answer is YES please [...] facility where the MRI/CT/myelogram was completed: [facility] [address] [place] [address] MRI/CT/myelogram viewable in Epic: No If not, please provide [phone] to fax in imaging reports for review. [...] Additional Comments Hydrocodone documented in this encounter [facility] 05-06-2023 Note HNO ID: [id number] Author: Mauricio Kelley Service: ? Author Type: ? Type: Progress Notes Filed: 05/14/2023 4:17 PM Note Text: Patient name: Kim Nichols Are you being referred by a [place] for Spine Health Provider or Pain Management Provider at [facility]? No If answer is YES please [...] facility where the MRI/CT/myelogram was completed: The [address] [address] MRI/CT/myelogram viewable in Epic: No If not, please provide [phone] to fax in imaging reports for review. [...] the surgery was completed: Additional Comments Hydrocodone [facility] Evaluation note No assessment inform ation [facility] Work Phone: Evaluation note Diagnosis Radiculopathy, lumbar region- Primary Thoracic or lumbosacral neuritis or radiculitis, unspecified Lumbar disc herniation Displacement of lumbar intervertebral disc without myelopathy [facility] Diagnosis Lumbar radiculopathy- Primary Thoracic or lumbosacral neuritis or radiculitis, unspecified Displacement of lumbar intervertebral disc without myelopathy [facility] Diagnosis Meralgia paresthetica of left side- Primary Meralgia paresthetica Chronic midline low back pain without sciatica documented in this [facility] Present illness NarrativePatient returns in [...] to their favorable impact on blood pressure andcholesterol.-[facility] DO Work Phone: History [...] to call if they arise or occur. -[facility] [place] DO Work Phone: History of Present illness [...] call if they arise or occur. [facility] [place] DO Work Phone: Reason for referral (narrative)* Diagnostic Procedure Only (Routine) - Pending Review Specialty Diagnoses / Procedures Referred By Contac t Referred To Contact XR IMAGING Diagnoses Meralgia paresthetica of left side Procedures XR LUMBAR MOTION 4V AP/LAT/ FLEX/EXT RADEX SPINE LUMBOSACRAL MINIMUM 4 VIEWS Juan R Bey MD [address] [place] [address] [place] [address] Referral ID Status Reason Start Date Expiration Date Visits Requested Visits Authorized [id number] Pending Review Auto-Generat ed Referral 2023 09/02/2024 1 1 [facility] Summary Purpose Family History No Family [...] and content) DATE CREATED AUTHOR 01/05/2022 [facility] DATE CREATED AUTHOR AUTHOR'S ORGANIZ ATION 07/28/2022 [facility] DATE CREATED AUTHOR AUTHOR'S ORGANIZ ATION 05/14/2023 [facility] DATE CREATED AUTHOR AUTHOR'S ORGANIZ ATION 05/14/2023 [facility] DATE CREATED AUTHOR AUTHOR'S ORGANIZ ATION 2023 [facility] DATE CREATED AUTHOR AUTHOR'S ORGANIZ ATION 08/05/2023 [facility] l Care Teams (unrecognized sec tion and content) Team Status: Inactive Member Role Status Dates Avi Cervantes MD Primary Care Provider Active Bijan Betts Jr, DO Attending Provider Active Team Status: Active Member Role Status Dates Avi Cervantes MD Primary Care Provider Active Government Affairs Fellow Relationship Specialty Start Date End Date Avi Cervantes MD [address] [place] [address] Referring Family Medicine 04/24/23 Government Affairs Fellow Relationship Specialty Start Date End Date Avi Cervantes MD [address] [place] [address] Referring Family Medicine 04/24/23 Government Affairs Fellow Relationship Specialty Start Date End Date Avi Cervantes MD [address] [place] [address] Referring Family Medicine 04/24/23 Government Affairs Fellow Relationship Specialty Start Date End Date Avi Cervantes MD [address] [place] [facility] [address] PCP - General Family Medicine 06/25/23 Avi Cervantes MD [address] [place] [facility] [address] Referring Family Medicine 04/24/23 Government Affairs Fellow Relationship Specialty Start Date End Date Avi Cervantes MD [address] [place] [address] PCP - General Family Medicine 06/25/23 Avi Cervantes MD [address] [place] [address] Referring Family Medicine 04/24/23 Government Affairs Fellow Relationship Specialty Start Date End Date Avi Cervantes MD [address] [place] [address] PCP - General Family Medicine 06/25/23 Avi Cervantes MD [address] [place] [address] Referring Family Medicine 04/24/23 Goals (unrecognized section [...] or prosecute any alcohol or drug abuse patient.[facility] the event this information is protected by the Federal Confidentiality of Alcohol and Drug Abuse Patient Records regulations: The Federal rules restrict any use of the information to criminally investigate or prosecute any alcohol or drug abuse patient.[facility] the event this information is protected by the Federal Confidentiality of Alcohol and Drug Abuse Patient Records regulations: The Federal rules restrict any use of the information to criminally investigate or prosecute any alcohol or drug abuse patient.[facility] the event this information is protected by the Federal Confidentiality of Alcohol and Drug Abuse Patient Records regulations: The Federal rules restrict any use of the information to criminally investigate or prosecute any alcohol or drug abuse patient.[facility] the event this information is protected by the Federal Confidentiality of Alcohol and Drug Abuse Patient Records regulations: The Federal rules restrict any use of the information to criminally investigate or prosecute any alcohol or drug abuse patient.[facility] the event this information is protected by the Federal Confidentiality of Alcohol and Drug Abuse Patient Records regulations: The Federal rules restrict any use of the information to criminally investigate or prosecute any alcohol or drug abuse patient.[facility] Reason for Visit (unrecogniz ed section [...] BE BASED ON THE PRIMARY CLINICAL RECORDS. [facility]. provides no warranty or guarantee of the accuracy or completeness of information in this document.
[2024-06-12 11:03] LABS: Anion Gap 10.7; BUN Creatinine Ratio 12.5; Calcium 9.8 mg/dL (8.5-10.1); Carbon Dioxide 30.9 mmol/L (21.0-32.0); Chloride 99 mmol/L (98-107); Cholesterol 137 mg/dL (<=200); Estimated GFR (African America >60 (>=60); Estimated GFR (Non-African Ame >60 (>=60); Glucose 89 mg/dL (74-106); HDL Cholesterol 46 mg/dL (40-60); LDL Cholesterol Calculated 77.8 mg/dL; Potassium 3.6 mmol/L (3.5-5.1); Sodium 137 mmol/L (136-145); Triglycerides 66 mg/dL (<=150); VLDL CHOLESTEROL 13.2 mg/dL
== END 2024-06-12 09:36 | disposition home or self-care (01) ==
LOC: LAB 09:36
PROVIDERS: PCP Family Medicine; Visit Provider Internal Medicine Cardiovascular Disease
DX: E78.5 Hyperlipidemia, unspecified (principal)
CPT/HCPCS: 36415; 80048; 80061

== ENCOUNTER 2024-07-02 08:03 | Outpatient (OUT) | payer OTHER, SELFPAY ==
--- NOTE | 2024-07-02 08:06 | FL_ITS ---
The [address] [address] Patient Name: KIM BOWEN MRN: [id number] date: 1960 Sex: M Assigned Patient Location: [place] Current Patient Location: [place] Accession/Order Number: [id number] Exam Date: 07/02/2024 08:18 Report Date: 07/02/2024 11:26 At the request of: AVI YEPEZ Procedure: FL cineradiography PROCEDURE: FL upper GI w air, FL cineradiography COMPARISON: None. HISTORY: Gastroesophageal Reflux Disease K21.9 TECHNIQUE: An air contrast upper gastrointestinal series was performed in the usual manner. Standard level fluoroscopic mode of operation utilized. FINDINGS: ESOPHAGUS:Trace amount of gastroesophageal reflux. No visible obstruction, dilatation, or hernia STOMACH: No obstruction, mass, or ulceration. Normal motility. DUODENUM:No ulceration or diverticulum. OTHER: Negative. FL/KS cineradiography IMPRESSION: 1. Trace amount of gastroesophageal reflux during the study. Otherwise normal examination. Electronically authenticated by: GARCIA VERMA Date: 07/02/2024 11:26
--- NOTE | 2024-07-02 08:06 | FL_ITS ---
The [address] [address] Patient Name: KIM BOWEN MRN: [id number] date: 1960 Sex: M Assigned Patient Location: [place] Current Patient Location: [place] Accession/Order Number: [id number] Exam Date: 07/02/2024 08:18 Report Date: 07/02/2024 11:26 At the request of: AVI YEPEZ Procedure: FL upper GI w air PROCEDURE: FL upper GI w air, FL cineradiography COMPARISON: None. HISTORY: Gastroesophageal Reflux Disease K21.9 TECHNIQUE: An air contrast upper gastrointestinal series was performed in the usual manner. Standard level fluoroscopic mode of operation utilized. FINDINGS: ESOPHAGUS:Trace amount of gastroesophageal reflux. No visible obstruction, dilatation, or hernia STOMACH: No obstruction, mass, or ulceration. Normal motility. DUODENUM:No ulceration or diverticulum. OTHER: Negative. FL/FL upper GI w air IMPRESSION: 1. Trace amount of gastroesophageal reflux during the study. Otherwise normal examination. Electronically authenticated by: GARCIA VERMA Date: 07/02/2024 11:26
--- OUTSIDE RECORDS SUMMARY | 2024-07-02 08:08 | XMS_ITS | CCD ---
Author Organization [facility] Care Team Providers Care Data Analyst Name Role Phone Unavailable Unavailable DR AVI CERVANTES Attending Unavailable MARLENI, DR CÁRDENAS Admitting Unavailable MARLENI, DR CÁRDENAS Attending Unavailable AMRLENI, DR CÁRDENAS Admitting Unavailable MARLENI, DR CÁRDENAS Consulting Unavailable WEST, DR OSCAR Ingram Consulting Unavailable Avi Cervantes Unavailable MD Avi Cervantes Primary Care Provider DO Bijan Betts Jr Attending Provider Bijan [...] Attending Unavailable AVI CERVANTES Primary Care Unavailable JR. FLETCHER GEORGE C Attending Unavaila amy FLETCHER JR., GEORGE C Referring Unavaila amy FLETCHER JR., GEORGE C Attending Unavaila RICHARD Valentine Attending Unavailable Allergies Allergy Classification Reported Allergen(s) Allergy Type Date of Onset Reaction(s) Facility (14 sources) Amoxicillin; Translations: [amoxicillin] Drug Allergy 09-26-2020 [facility] (1 source) Amoxicillin Drug Allergy [facility] Repository (1 source) traMADol Drug Allergy [facility] (1 source) Amoxicillin Drug Allergy 09-26-2020 [place] [facility] (1 source) traMADol; Translations: [TRAMADOL] Drug Allergy 05-10-2024 [facility] Repository Medications Current Medications Medication Drug [...] topical cream (1 source) Corticosteroid Start: 09-26-20 20 Fluocinonide Active 1 APPLIC TOPICAL Daily September 26, 2020 1:00am Multivitamin preparation (1 source) Start: 09-26-20 20 take 1 tablet by mouth once daily [...] P O Q6H September 26, 2020 1:00am Holland 5-325 MG T ABS TAKE 1 TABLET [...] Problem Classification Problem Date Documented Date Episodic/Chronic Cardiac dysrhythmias (2 sources) Unspecified atrial fibrillation; Translations: [Unspecified atrial fibrillation] Onset: 06-11-2024 Chronic Coronary atherosclerosis and other heart disease (4 sources) Coronary arteriosclerosis; Translations: [Coronary atherosclerosis of unspecified type of vessel, manzanita or graft] Chronic Diabetes mellitus without complication [...] Test Name Value Interpretation Reference Range Facility Office Visiton 06-11-2024 Follow-up visit [id number] Kim Nichols 1960 M Date Provider Department Center 06/11/2024 3848-RICHARD BENITEZ [facility]ARD [facility] Family History Problem Relation Age of Onset Brain Aneurysm Mother Stroke Father Heart attack Sister Family Status - Relation Status Age at Mother Father Sister Level of Service:11285 AL OFFICE/OUTPATIENT NEW MODERATE MDM 45 MINUTES Reason for Visit and Comments: New Patient [Other] - CHEST PAIN/AFIB Normal [facility] CNOVon 2023 CNOV Office Visit (SPSLUH ) KIM NICHOLS ([id number]) 1960 M Date Time Provider Department 08/04/23 [...] list in [facility] MEDICATIONS: Gabapentin, Holland, Tylenol Have you ever seen a pain [...] issues. 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 [facility] 07-08-2023 [facility] Telephone (SPNMMN) KIM NICHOLS ([id number]) 1960 M Date Time Provider Department 07/08/23 ZOË JESSICA G SPNMMN During your visit today, we recorded the following information about you: Stacy Gallagher RN 07/08/2023 12:56 PM Signed Post Spine Injection phone call: [phone] on 07/08/23 Patient denies fever, chills, new [...] appointment 2-4 weeks post procedure by calling [phone] Patient does not have any questions or [...] 07/08/23 Normal [facility] HISTORY PHYSICALon HISTORY PHYSICAL HNO ID: [id number] Author: Sherice Galvin APRN.KIRILL Service: ? Author Type: Nurse Practitioner [...] AM Normal [facility] OPERATIVE NOon 07-01-2023 OPERATIVE NO HNO ID: [id number] Author: Jessica Camp DO Service: Physical Medicine AND Rehabilitation Author Type: Physician Type: Operative Report Filed: 07/01/2023 9:40 AM Note Text: PROCEDURE REPORT Surgery/Procedure Date: July 01, 2023 Interventionalist: Jessica Camp DO Procedure(s): Left L5 transforaminal epidural steroid injection Pre-Op/Pre-Procedure Diagnosis: Lumbar radiculopathy Post-Op Diagnosis: same SUBJECTIVE: Kim Nichols is a 62 year old male, who presents to the [facility] for a left L5 transforaminal epidural steroid injection. This is his first (1) procedure. He states he is NPO and has a powder truck driver for return home. Pain is central [...] if any side effects are noted. Kim Bertoamaya was transferred to the recovery room and is to be discharged home in stable condition. DO Fátima Castrejon [facility] Nina 06-26-2023 [facility] Telephone (SPNMMN) JESSIKIM ([id number]) 1960 M Date Time Provider Department 06/26/23 JESSICA CAMP SPNMMN During your visit today, we recorded the following information about you: Oscar RollinsHERNANDO 06/26/2023 9:20 AM Signed Phoned patient and message left for Kim to confirm appointment for Kim Nichols for spine procedure on 07/01/2023. Patient notified that [place] will call patient the night before with the time to arrive for injection. Patient verbalized understanding of the following: -Provided education on spine procedure and answered questions related to spine injection procedure. -[employer] Contractor is needed to drive patient home. -NPO [...] to report. Diabetic: No Patient given number [phone], spine injections schedulers, if there is any [...] Encounter Status:Closed by OSCAR ROLLINS on 06/26/23 [facility] CNOVon 06-02-2023 CNOV Office Visit (SPNSMN ) KIM NICHOLS ([id number]) 1960 M Date Time Provider Department 06/02/23 1:40 PM DARREN HARRIS SPNSMN During your visit today, we recorded the following information about you: Pulse Respiration Blood pressure Weight 63/minute 18/minute 128/84 117 kg Height 1.829 m Darren Harris APRN.MEASUREMENT DEPARTMENT CHIEF CLERK 06/03/2023 1:01 PM Signed SPINE SURGERY OUTPATIENT [...] with him pain. He also is prescribed Holland for breakthrough pain which he only takes [...] included)... Normal [facility] Office Visit (Cardiology)on 05-13-2023 Follow-up visit Diagnoses/Problems Assessed Coronary disease (414.00) (I25.10) Essential hypertension, benign (401.1) (I10) Hyperlipidemia (272.4) (E78.5) Class 2 obesity with body mass index (BMI) of 36.0 to 36.9 in adult (278.00,V85.36) (E66.9,Z68.36) Never a smoker Orders Class 2 obesity with body mass index (BMI) of 36.0 to 36.9 in adult Healthy Weight Tips; Status:Complete - Retrospective Authorization; Done: [id number] Some eating tips that can help you lose weight.; Status:Complete - Retrospective Authorization; Done: [id number] Coronary disease, Hyperlipidemia Renew: Aspirin EC Low Dose 81 MG Oral Tablet Delayed Release; TAKE 1 TABLET DAILY DIRECTED Hyperlipidemia Renew: Rosuvastatin Calcium 20 MG Oral Tablet; take 1 tablet by mouth at bedtime Socx: Never a smoker Tobacco Use Screening; Status:Complete; Done: [id number] Patient Instructions Please bring all medicines, vitamins, [...] MG Oral CapsuleTAKE 1 CAPSULE TWICE DAILY. Holland 5-325 MG TABSTAKE 1 TABLET EVERY 4 [...] negative for complaint. Vitals Vital Signs Recorded: [id number] 11:22AM Heart Rate64, R Radial Immvzhko441, RUE, Sitting Lbpmeuwwr18, RUE, Sitting Height6 ft Kpbvzm974 lb BMI Trpjdlaclj31.21 kg/m2 BSA Calculated2.41 Tobacco Useb) No PHQ-2 [...] no hep (more content not included)... Normal [place] Tobacco Screening.on 023 Adult depression screening assessment No [facility] 250 DO Work Phone: Tobacco use status CPHS b) No [facility] 250 DO Work Phone: XR knee LT 4V*on 07-17-2022 XR knee LT 4V* [facility] Main [place] [address] [place] [id number] XRay Report Signed Patient: Kim Nichols MR#: [id number] : 1960 Acct:[id number] Age/Sex: 61 / M ADM Date: 07/17/22 Loc: [place] Room: Type: [facility] Attending Dr: Bijan Betts Jr, DO [...] M.D.07/17/2022 1:18 PM Dictation Location: [place] [address] Transcribed By: [facility] 07/17/22 1318 Dictated By: Stacy Ellis MD 07/17/22 1315 Signed By: 07/17/22 1318 [facility] Tobacco Screening.on 022 Adult depression screening assessment No [facility] 250 DO Work Phone: Fall risk assessment c) Not medically indicated [facility] 250 DO Work Phone: Tobacco use status CPHS b) No [facility] 250 DO Work Phone: H PYLORI ANTIBODY IGGon 11-28 H. PYLORI IGG ABS 0.45 Index Value Normal 0.00-0.79 [facility] Comment on above: Result Comment: Nega tive <0.80 Equivocal 0.80 - 0.89 Positive >0.89 Performed By: #### L IPID, TSH, T7, URIC, CMP #### [facility] [address] [place], [place] [address] Dr. Conor Chan INSULINon 12-21-2021 Insulin 55.2 uIU/mL Critically high 2.6-24.9 [facility] Comment on above: Performed By: #### I NSULIN #### [facility] [address] [place] [address] Dr. Conor Chan TESTOSTERONE, TOTALon 2021 Testosterone [Mass/Vol] 380 ng/dL Normal 264-916 [facility] Comment on above: Result Comment: Adul t male reference interval is based on a population of healthy nonobese males (BMI <30) between 19 and 39 years old. Travon, et.al. JCEM 2017,102;4452-3456. PMID: [id number]. Performed By: #### L IPID, TSH, T7, URIC, CMP #### [facility] [address] [place] [address] Dr. Conor Chan CBC AUTO DIFFon 12-20-2021 BASO # 0.0 103/ul Normal 0.0-0.1 [facility] Comment on above: Performed By: #### C BC #### [facility] [address] [place] [address] Dr. Conor Chan Basophils/100 WBC (Bld) 0.5 % Normal 0.2-2.0 [facility] Comment on above: Performed By: #### C BC #### [facility] [address] [place] [address] Dr. Conor Chan EO # 0.2 103/ul Normal 0.0-0.7 [facility] Comment on above: Performed By: #### C BC #### [facility] [address] [place] [address] Dr. Conor Chan Eosinophils/100 WBC (Bld) 3.5 % Normal 0.9-7.0 [facility] Comment on above: Performed By: #### C BC #### [facility] [address] [place] [address] Dr. Conor Chan Erythrocyte distribution width (RBC) [Ratio] 13.8 % Normal 11.0-15.0 [facility] Comment on above: Performed By: #### C BC #### [facility] [address] [place] [address] Dr. Conor Chan Hematocrit (Bld) [Volume fraction] 48.5 % Normal 42.0-54.0 [facility] Comment on above: Performed By: #### C BC #### [facility] [address] [place] [address] Dr. Conor Chan Hemoglobin (Bld) [Mass/Vol] 16.3 g/dL Normal 14.0-18.0 [facility] Comment on above: Performed By: #### C BC #### [facility] [address] [place] [address] Dr. Conor Chan IG # 0.02 10e3/ul Normal 0.00-0.03 [facility] Comment on above: Performed By: #### C BC #### [facility] [address] [place] [address] Dr. Conor Chan IG % 0.3 % Normal 0.0-0.5 [facility] Comment on above: Performed By: #### C BC #### [facility] [address] [place] [address] Dr. Conor Chan LYMPH # 1.4 103/ul Normal 1.2-3.8 [facility] Comment on above: Performed By: #### C BC #### [facility] [address] [place] [address] Dr. Conor Chan Lymphocytes/100 WBC (Bld) 21.7 % Normal 20.5-60.0 [facility] Comment on above: Performed By: #### C BC #### [facility] [address] [place] [address] Dr. Conor Chan MANUAL DIFF REQ NO Normal [facility] Comment on above: Performed By: #### C BC #### [facility] [address] [place] [address] Dr. Conor Chan MCH (RBC) [Entitic mass] 28.5 pg Normal 25.9-34.0 [facility] Comment on above: Performed By: #### C BC #### [facility] [address] [place] [address] Dr. Conor Chan MCHC (RBC) [Mass/Vol] 33.6 g/dL Normal 29.9-35.2 [facility] Comment on above: Performed By: #### C BC #### [facility] [address] [place] [address] [address] Conor Chan MCV (RBC) [Entitic vol] 84.9 fL Normal 80.0-94.0 [facility] Comment on above: Performed By: #### C BC #### [facility] [address] [place] [address] Dr. Conor Chan MONO # 0.6 103/ul Normal 0.3-0.8 [facility] Comment on above: Performed By: #### C BC #### [facility] [address] [place] [address] Dr. Conor Chan Monocytes/100 WBC (Bld) 9.3 % Normal 1.7-12.0 [facility] Comment on above: Performed By: #### C BC #### [facility] [address] [place] [address] Dr. Conor Chan NEUT # 4.1 103/ul Normal 1.4-6.5 [facility] Comment on above: Performed By: #### C BC #### [facility] [address] [place] [address] Dr. Conor Chan Neutrophils/100 WBC (Bld) 64.7 % Normal 43.0-75.0 [facility] Comment on above: Performed By: #### C BC #### [facility] [address] [place] [address] Dr. Conor Chan Platelet mean volume (Bld) [Entitic vol] 9.8 fL Normal 9.5-13.5 [facility] Comment on above: Performed By: #### C BC #### [facility] [address] [place] [address] Dr. Conor Chan PLT 235 103/ul Normal 150-450 [facility] Comment on above: Performed By: #### C BC #### [facility] [address] [place] [address] Dr. Conor Chan RBC 5.71 106/ul Normal 4.70-6.10 [facility] Comment on above: Performed By: #### C BC #### [facility] [address] [place] [address] Dr. Conor Chan WBC 6.4 103/ul Normal 4.0-11.0 [facility] Comment on above: Performed By: #### C BC #### [facility] [address] [place] [address] Dr. Conor Chan FREE THYROXINE INDEX T7on FTI 2.89 Normal [facility] Comment on above: Performed By: #### L IPID, TSH, T7, URIC, CMP #### [facility] [address] [place] [address] Dr. Conor Chan T3U 34.0 % Normal 23.5-40.5 [facility] Comment on above: Performed By: #### L IPID, TSH, T7, URIC, CMP #### [facility] [address] [place] [address] Dr. Conor Chan T4 [Mass/Vol] 8.50 ug/dL Normal 5.53-11.00 [place] Comment on above: Performed By: #### L IPID, TSH, T7, URIC, CMP #### [facility] [address] [place] [address] Dr. Conor Chan GLYCOHEMOGLOBIN A1Con 2021 ADA RECOMMENDATION ADA THERAPEUTIC TARGET 6.0 - 7.0 ACTION SUGGESTED > 7.0 Normal [facility] Comment on above: Performed By: #### A 1C #### [facility] [address] [place] [address] Dr. Conor Chan Glucose [Mass/Vol] 126 mg/dL Normal [facility] Comment on above: Performed By: #### A 1C #### [facility] [address] [place] [address] Dr. Conor Chan HbA1c (Bld) [Mass fraction] 6.0 % Normal <=6.0 [facility] Comment on above: Performed By: #### A 1C #### [facility] [address] [place] [address] [address] Conor Chan LIPID PROFILEon 12-20-2021 CHOL-HDL RATIO NORM SEE BELOW Normal [facility] Comment on above: Result Comment: 3.3 - 4.4 LOW RISK 4.4 - 7.1 AVERAGE RISK 7.1 - 11.0 MODERATE RISK >11.0 HIGH RISK Performed By: #### L IPID, TSH, T7, URIC, CMP #### [facility] [address] [place] [address] [address] Conor Chan Cholesterol [Mass/Vol] 161 mg/dL Normal <=200 [facility] Comment on above: Performed By: #### L IPID, TSH, T7, URIC, CMP #### [facility] [address] [place] [address] [address] Conor Chan Cholesterol in HDL [Mass/Vol] 50 mg/dL Normal [facility] Comment on above: Performed By: #### L IPID, TSH, T7, URIC, CMP #### [facility] [address] [place] [address] [address] Conor Chan Cholesterol in LDL [Mass/Vol] 96.0 mg/dL Normal [facility] Comment on above: Performed By: #### L IPID, TSH, T7, URIC, CMP #### [facility] [address] [place] [address] [address] Conor Chan Cholesterol.total/Ch olesterol in HDL [Mass ratio] 3.2 {ratio} Normal [facility] Comment on above: Performed By: #### L IPID, TSH, T7, URIC, CMP #### [facility] [address] [place] [address] [address] Conor Chan HDL NORMAL > or = 60 mg/dl - LO W CARDIOVASCULAR RISK <40 mg/dl - HIGH CARDIOVASCULAR RISK Normal [facility] Comment on above: Performed By: #### L IPID, TSH, T7, URIC, CMP #### [facility] [address] [place] [address] [address] Conor Chan LDL CALC NORMAL SEE BELOW Normal [facility] Comment on above: Result Comment: <100 mg/dl OPTIMAL 100 - 129 mg/dl NEAR OR ABOVE OPTIMAL 130 - 159 mg/dl BORDERLINE HIGH 160 - 189 mg/dl HIGH >190 mg/dl VERY HIGH Performed By: #### L IPID, TSH, T7, URIC, CMP #### [facility] [address] [place] [address] [address] Conor Chan Triglyceride [Mass/Vol] 75 mg/dL Normal <=150 [facility] Comment on above: Performed By: #### L IPID, TSH, T7, URIC, CMP #### [facility] [address] [place] [address] [address] Conor Chan VLDL CALC 15.0 mg/dL Normal [facility] Comment on above: Performed By: #### L IPID, TSH, T7, URIC, CMP #### [facility] [address] [place] [address] Dr. Conor Chan PROF 14(COMP METB)on 022 Albumin [Mass/Vol] 3.7 g/dL Normal 3.5-5.0 [facility] Comment on above: Performed By: #### L IPID, TSH, T7, URIC, CMP #### [facility] [address] [place] [address] [address] Conor Chan Albumin/Globulin [Mass ratio] 0.9 {ratio} Normal [facility] Comment on above: Performed By: #### L IPID, TSH, T7, URIC, CMP #### [facility] [address] [place] [address] [address] Conor Chan ALP [Catalytic activity/Vol] 58 U/L Normal 38-126 [facility] Comment on above: Performed By: #### L IPID, TSH, T7, URIC, CMP #### [facility] [address] [place] [address] [address] Conor Chan ALT [Catalytic activity/Vol] 40 U/L Normal 21-72 [facility] Comment on above: Performed By: #### L IPID, TSH, T7, URIC, CMP #### [facility] [address] [place] [address] [address] Conor Chan Anion gap [Moles/Vol] 5.5 mmol/L Normal [facility] Comment on above: Performed By: #### L IPID, TSH, T7, URIC, CMP #### [facility] [address] [place] [address] Dr. Conor Chan AST [Catalytic activity/Vol] 18 U/L Normal 17-59 [facility] Comment on above: Performed By: #### L IPID, TSH, T7, URIC, CMP #### [facility] [address] [place] [address] Dr. Conor Chan Bilirubin [Mass/Vol] 0.5 mg/dL Normal 0.2-1.3 [facility] Comment on above: Performed By: #### L IPID, TSH, T7, URIC, CMP #### [facility] [address] [place] [address] Dr. Conor Chan Calcium [Mass/Vol] 9.9 mg/dL Normal 8.4-10.2 [facility] Comment on above: Performed By: #### L IPID, TSH, T7, URIC, CMP #### [facility] [address] [place] [address] Dr. Conor Chan Chloride [Moles/Vol] 97 mmol/L Critically low 98-107 [facility] Comment on above: Performed By: #### L IPID, TSH, T7, URIC, CMP #### [facility] [address] [place] [address] Dr. Conor Chan CO2 [Moles/Vol] 30.7 mmol/L Critically high 22.0-30.0 [facility] Comment on above: Performed By: #### L IPID, TSH, T7, URIC, CMP #### [facility] [address] [place] [address] Dr. Conor Chan Creatinine [Mass/Vol] 1.04 mg/dL Normal 0.66-1.25 [facility] Comment on above: Performed By: #### L IPID, TSH, T7, URIC, CMP #### [facility] [address] [place] [address] Dr. Conor Chan EGFR-AF [place] >60 Normal >=60 [facility] Comment on above: Performed By: #### L IPID, TSH, T7, URIC, CMP #### [facility] [address] [place] [address] Dr. Conor Chan EGFR-NON AF [place] >60 Normal >=60 [facility] Comment on above: Performed By: #### L IPID, TSH, T7, URIC, CMP #### [facility] [address] [place] [address] Dr. Conor Chan Globulin (S) [Mass/Vol] 4.2 g/dL Normal [facility] Comment on above: Performed By: #### L IPID, TSH, T7, URIC, CMP #### [facility] [address] [place] [address] Dr. Conor Chan Glucose [Mass/Vol] 122 mg/dL Critically high 74-106 [facility] Comment on above: Performed By: #### L IPID, TSH, T7, URIC, CMP #### [facility] [address] [place] [address] Dr. Conor Chan Potassium [Moles/Vol] 3.2 mmol/L Critically low 3.4-5.0 [facility] Comment on above: Performed By: #### L IPID, TSH, T7, URIC, CMP #### [facility] [address] [place] [address] Dr. Conor Chan Protein [Mass/Vol] 7.9 g/dL Normal 6.1-8.2 [facility] Comment on above: Performed By: #### L IPID, TSH, T7, URIC, CMP #### [facility] [address] [place] [address] Dr. Conor Chan Sodium [Moles/Vol] 130 mmol/L Critically low 137-145 [facility] Comment on above: Performed By: #### L IPID, TSH, T7, URIC, CMP #### [facility] [address] [place] [address] Dr. Conor Chan Urea nitrogen [Mass/Vol] 15.0 mg/dL Normal 9.0-20.0 [facility] Comment on above: Performed By: #### L IPID, TSH, T7, URIC, CMP #### [facility] [address] [place] [address] [address] Conor Chan Urea nitrogen/Creatinine [Mass ratio] 14.4 mg/mg Normal [facility] Comment on above: Performed By: #### L IPID, TSH, T7, URIC, CMP #### [facility] [address] [place] [address] Dr. Conor Chan TSHon 12-20-2021 TSH 2.122 uIU/mL Normal 0.470-4.680 [place] Comment on above: Performed By: #### L IPID, TSH, T7, URIC, CMP #### [facility] [address] [place] [address] Dr. Conor Chan TSH RANGE SEE BELOW Normal [facility] Comment on above: Result Comment: <0.3 4 UIU/ml HYPERTHYROID 0.34-5.60 UIU/ml EUTHYROID >5.60 UIU/ml HYPOTHYROID Performed By: #### L IPID, TSH, T7, URIC, CMP #### [facility] [address] [place] [address] Dr. Conor Chan URIC ACID SERUMon 12-20-2021 Urate [Mass/Vol] 7.3 mg/dL Normal 3.5-8.5 [facility] Comment on above: Performed By: #### L IPID, TSH, T7, URIC, CMP #### [facility] [address] [place] [address] Dr. Conor Chan XR LSPINE MIN 4 [...] OSCAR FRANCO Date: 2021-12-20 10:06 Normal [facility] Vital Signs Date Time Vital Sign Value Performing Clinician Idalmis rausch 2023 08:03-0400 Body height 182.9 cm Bilal Butt Work Phone: [place] [facility] 2023 08:03-0400 Body weight 120.2 kg Bilal Butt Work Phone: [place] [facility] 06-02-2023 13:26-0400 Body height 182.9 cm Darren Harris TITLE SEARCHER.MEASUREMENT DEPARTMENT CHIEF CLERK Work Phone: [facility] 06-02-2023 13:26-0400 Body weight 117.03 kg Darren Harris TITLE SEARCHER.MEASUREMENT DEPARTMENT CHIEF CLERK Work Phone: [facility] 06-02-2023 13:26-0400 Diastolic blood pressure 84 mm[Hg] Darren Harris TITLE SEARCHER.MEASUREMENT DEPARTMENT CHIEF CLERK Work Phone: [facility] 06-02-2023 13:26-0400 Heart rate 63 /min Darren Harris TITLE SEARCHER.MEASUREMENT DEPARTMENT CHIEF CLERK Work Phone: [facility] 06-02-2023 13:26-0400 Respiratory rate 18 /min Darren Harris TITLE SEARCHER.MEASUREMENT DEPARTMENT CHIEF CLERK Work Phone: [facility] 06-02-2023 13:26-0400 SaO2% (BldA) [Mass fraction] 95 % Darren Harris TITLE SEARCHER.MEASUREMENT DEPARTMENT CHIEF CLERK Work Phone: [facility] 06-02-2023 13:26-0400 Systolic blood pressure 128 mm[Hg] Darren Harris TITLE SEARCHER.MEASUREMENT DEPARTMENT CHIEF CLERK Work Phone: [facility] 05-13-2023 11:22-0400 Body height 182.88 cm Avi Cervantes Work Phone: [facility] [employer] 250 DO Work Phone: 05-13-2023 11:22-0400 Body mass index (BMI) [Ratio] 36.21 kg/m2 Avi Cervantes Work Phone: [facility] 250 DO Work Phone: 05-13-2023 11:22-0400 Body surface area Derived from formula 2.41 m2 Avi M Hoy Work Phone: [facility] 250 DO Work Phone: 05-13-2023 11:22-0400 Body weight 121.11 kg Avi Lauren Hoy Work Phone: [facility] 250 DO Work Phone: 05-13-2023 11:22-0400 Diastolic blood pressure 78 mm[Hg] Avi Lauren Hoy Work Phone: [facility] 250 DO Work Phone: 05-13-2023 11:22-0400 Heart rate 64 /min Avi Lauren Hoy Work Phone: [facility] 250 DO Work Phone: 05-13-2023 11:22-0400 Systolic blood pressure 132 mm[Hg] Avi Aguilar Hoy Work Phone: [facility] 250 DO Work Phone: 05-07-2022 11:36-0400 Body height 182.88 cm Avi Lauren Hoy Work Phone: [facility] 250 DO Work Phone: 05-07-2022 11:36-0400 Body mass index (BMI) [Ratio] 38.38 kg/m2 Avi Aguilar Hoy Work Phone: [facility] 250 DO Work Phone: 05-07-2022 11:36-0400 Body surface area Derived from formula 2.47 m2 Avi Lauren Hoy Work Phone: [facility] 250 DO Work Phone: 05-07-2022 11:36-0400 Body weight 128.37 kg Avi Lauren Hoy Work Phone: [facility] 250 DO Work Phone: 05-07-2022 11:36-0400 Diastolic blood pressure 72 mm[Hg] Avi Cervantes Work Phone: [facility] 250 DO Work Phone: 05-07-2022 11:36-0400 Heart rate 66 /min Avi Cervantes Work Phone: [facility] 250 DO Work Phone: 05-07-2022 11:36-0400 Systolic blood pressure 110 mm[Hg] Avi Cervantes Work Phone: [facility] 250 DO Work Phone: Encounters Encounter Date Encounter Type Care Provider Facility Start: 06-21-2024 End: 06-21-2024 ambulatory ELIAS EDEN Not Available Start: 06-11-2024 End: 06-11-2024 ambulatory [facility] Start: 05-10-2024 End: 05-10-2024 ambulatory ELIAS EDEN Not Available Start: 2023 End: 2023 ambulatory JUAN R BEY Facility:[facility] Start: 2023 End: 2023 Office outpatient new 30 minutes Juan R Bey MD Work Phone: [facility] Comment on above: Meralgia paresthetic a of left side (Primary Dx); Chronic midline low back pain without sciatica Start: 08-01-2023 End: 08-01-2023 ambulatory Darren Harris TITLE SEARCHER.MEASUREMENT DEPARTMENT CHIEF CLERK Work Phone: [facility] Comment on above: Dr chong Cut me open Start: 07-01-2023 End: 07-01-2023 ambulatory JESSICA CAMP Facility:[facility] Start: 06-26-2023 Telephone encounter Jessica Camp DO Work Phone: [facility] Comment on above: Preparations For Pro cedures (Pre-injection instructions) Start: 06-19-2023 Orders Only Jessica hall DO Work Phone: Neurology Comment on above: Lumbar radiculopathy (Primary Dx); Displacement of lumbar intervertebral disc without myelopathy Start: 06-02-2023 End: 06-03-2023 ambulatory DARREN HARRIS Facility:[facility] Start: 06-02-2023 End: 06-02-2023 Patient encounter procedure Darren Harris TITLE SEARCHER.MEASUREMENT DEPARTMENT CHIEF CLERK Work Phone: [facility] Comment on above: Radiculopathy, lumba r region (Primary Dx); Lumbar disc herniation Start: 05-13-2023 Office outpatient vi sit 25 minutes Avi Cervantes Work Phone: [facility] 250 DO Work Phone: Start: 05-13-[address] Reilly Nelson II Facility: Start: 05-06-2023 Chart abstracting None (Historical) Neurology Start: 12-16-2022 Rx Renewal Avi Cervantes Work Phone: [facility] 250 DO Work Phone: Start: 07-17-2022 End: 07-17-2022 ambulatory Bijan Betts Jr Facility:[place] Start: 07-17-2022 End: 07-17-2022 Departed Referred MD Avi Cervantes Work Phone: [facility] 250 Start: 05-07-2022 Office outpatient vi sit 25 minutes Avi Cervantes Work Phone: [facility] 250 DO Work Phone: Start: 01-03-[address] AVI CERVANTES Facility :[facility] Start: 12-21-2021 Encounter for genera l adult medical examination without abnormal findings DR AVI CERVANTES [facility] Start: 12-20-2021 End: 12-21-[address] AVI CERVANTES Facility:[facility] Start: 12-20-2021 End: 12-21-2021 Encounter for general adult medical examination without abnormal findings DR AVI CERVANTES Facility:[facility] Start: 12-10-2021 Rx Renewal Reilly mcmahon MD Work Phone: [facility] 250 DO Work Phone: Procedures Date Procedure Procedure Detail Performing Clinician Start: 07-17-2022 Radiologic examinati on of knee MD Avi Cervantes Work Phone: Start: 12-20-[address] RONDA CERVANTES Comment on above: Performed By: #### [facility] #### [facility] [address] [address] [address] Conor Chan Start: 06-09-2020 Total colonoscopy Willi daryl Nelson MD Work Phone: Start: 07-02-2019 Colonoscopy Darren harris APRN.MEASUREMENT DEPARTMENT CHIEF CLERK Work Phone: Cardiac catheterization Will renetta Nelson MD Work Phone: Cholecystectomy Reilly miranda MD Work Phone: Plan of Treatment Date Care Activity Detail Author Start: 12-20-2026 PROSTATE CANCER SCREENING DISCUSSION PROSTATE CANCER SCREENING DISCUSSION [facility] Start: 06-27-2023 Influenza vaccination [facility] Start: 05-13-2023 FUV, Provider: Reilly Nelson, Status: Pen, Time: 11:10 AM FUV, Provider: Reilly Nelson, Status: Pen, Time: 11:10 AM [facility] Work [facility]: Start: 10-27-2022 DEPRESSION ASSESSMENT DEPRESSION ASS ESSMENT [facility] Start: 05-17-2022 COVID-19 VACCINE (6 - Pfizer series) COVID-19 VACCINE (6 - Pfizer series) [facility] Start: 05-15-2022 FUV, Provider: Reilly Nelson, Status: Pen, Time: 2:00 PM FUV, Provider: Reilly Nelson, Status: Pen, Time: 2:00 PM [facility] Work Phone: Start: 07-02-2020 Colonoscopy COLONOSCOPY [facility] Start: 07-02-2020 COLORECTAL CANCER SCREENING COLORECTAL CANCER SCREENING [facility] Start: 2016 Prostate Cancer Screening Discussion Prostate Cancer Screening Discussion [facility] Start: 2011 SHINGRIX VACCINE (1 of 2) SHINGRIX VACCINE (1 of 2) [facility] Start: 2006 COLOGUARD (FIT-DNA) COLOGUARD (FIT-D NA) [facility] Start: [address] COLONOGRAPHY [facility] Start: 2006 DIABETES SCREEN DIABETES SCREEN [facility] Start: 2006 Diabetes Screening Diabetes Screenin g [facility] Start: 2006 FECAL OCCULT BLOOD FECAL OCCULT BLOO D [facility] Start: 2006 SIGMOIDOSCOPY SIGMOIDOSCOPY [facility] Start: 1996 Lipid 1996 panel - S hayden or Plasma Lipid Screening [facility] Start: 1996 LIPID SCREEN LIPID SCREEN [facility] Start: 1980 Urine microalbumin profile [facility] Start: 1979 HEPATITIS C SCREENING HEPATITIS C SC REENING [facility] Start: 1979 HIV SCREENING HIV SCREENING [facility] End: 09-02-2024 Radex spine lumbosacral minimum 4 views XR LUMBAR MOTION 4V AP/LAT/ FLEX/EXT Radiology Routine Meralgia paresthetica of left side 1 Occurrences starting 2023 until 09/02/2024 [facility] Work Phone: Comment on above: 1 Occurrences starti ng 2023 until 09/02/2024 SPINE INTERVENTION PROCEDURE SPINE INTERVENTION PROCEDURE Procedures Routine Radiculopathy, lumbar region Lumbar disc herniation Ordered: 06/02/2023 [facility] Work Phone: Comment on above: Ordered: 06/02/2023 [facility] Immunizations Immunization Date Immunization Notes Care Provider Fa cilitatyana 10-14-2022 Pfizer COVID-19 Vac Bivalent 30 MCG/0.3ML Intramuscular Suspension Avi Cervantes Work Phone: [facility] [employer] 250 DO Work Phone: 10-03-2022 influenza, injectabl e, quadrivalent, preservative free Avi Cervantes Work Phone: [facility] [employer] 250 DO Work Phone: 10-03-2022 influenza virus vacc ine, unspecified formulation Darren Harris TITLE SEARCHER.MEASUREMENT DEPARTMENT CHIEF CLERK Work Phone: [facility] 03-22-2022 Comirnaty 30 MCG/0.3 ML Intramuscular Suspension Avi M Hoy Work Phone: [facility] 250 DO Work Phone: 03-22-2022 Moderna COVID-19 Vac cine 100 MCG/0.5ML Intramuscular Suspension Avi M Hoy Work Phone: [facility] Comment on above: Series: 03-22-2022 zoster vaccine recombinant Avi M Hoy Work Phone: [facility] 250 DO Work Phone: 09-03-2021 Pfizer-BioNTech COVI D-19 Vacc 30 MCG/0.3ML Intramuscular Suspension Avi M Hoy Work Phone: [facility] 08-25-2021 influenza, injectabl e, quadrivalent, preservative free Avi M Hoy Work Phone: [facility] 250 DO Work Phone: 08-25-2021 zoster vaccine recombinant Avi M Hoy Work Phone: [facility] 250 DO Work Phone: 02-13-2021 Pfizer-BioNTech COVI D-19 Vacc 30 MCG/0.3ML Intramuscular Suspension Avi M Hoy Work Phone: [facility] 01-13-2021 Pfizer-BioNTech COVI D-19 Vacc 30 MCG/0.3ML Intramuscular Suspension Avi M Hoy Work Phone: [facility] 12-23-2020 Pfizer-BioNTech COVI D-19 Vacc 30 MCG/0.3ML Intramuscular Suspension Avi M Hoy Work Phone: [facility] 08-28-2020 influenza, injectabl e, quadrivalent, preservative free Avi M Hoy Work Phone: [facility] 250 DO Work Phone: 08-28-2020 influenza virus vacc ine, unspecified formulation Juan R Bey MD Work Phone: [facility] Payers Date Payer Category Payer Self-pay [id number] [phone] [id number] 2021 Private Health Insurance [employer] A ETNA POS [id number] 2021-Present [phone] [address] [place] [address] POS [id number] 1961 Unknown [id number] 1961 Unknown [id number] 1961 Unknown [id number] 1960 Unknown [id number] 1960 Unknown [id number] 1960 Unknown [id number] 1958 Private Health Insurance [id number] 1958 Self-pay [id number] Unknown Unknown [facility] [id number] Unknown [id number] Social History Date Type Detail Facility Start: 06-02-2023 End: 08-01-2023 Consumes alcohol Consumes alcohol [facility] Comment on above: socially; occasional; Start: 09-28-2020 End: 06-02-2023 Tobacco smoking status NHIS Never smoked tobacco (finding) [place] Start: 1960 Sex Assigned At Male F [facility] Tobacco smoking stat us NHIS Tobacco smoking consumption unknown [facility] Start: 1960 Sex Assigned At Not on file [facility] Start: 06-02-2023 End: 08-01-2023 Gender identity Not on file [facility] Start: 06-02-2023 Tobacco use and exposure Smokeless tobacco non-user [facility] National Score (1-10 0), lower number is lower risk 62 [facility] Start: 07-28-2023 Gender identity Identifies as male gender (finding) [facility] Start: 07-28-2023 Sexual orientation Heterosexual (jose alfredo tolentino) [facility] Clinical Notes 05-06-2023 to 06-11-2024 Juan R Bey MD - 2023 8:40 AM EDTPBossman Brian - 2023 7:48 AM EDTTelephone Encounter - Oscar Rollins LPN - 06/26/2023 9:12 AM EDT Note Date & Type Note Facility 06-11-2024 Note Cardiology Clinic No te Chief Complaint: New Patient (CHEST PAIN/AFIB ) HPI: Kim Nichols is a 63 y.o. male who With no significant past cardiac history who was referred to cardiology clinic for chest pain and new diagnosis of A-fib. Patient was recently evaluated in the hospital after presenting with acute onset shortness of breath. At the time, he was found to be in atrial fibrillation. He was started on rate control anticoagulation, and he was discharged home. Since that time, patient has experienced intermittent chest pain. Chest pain can occur both at rest and with exertion, and does not seem to be worsened with exertion. He denies any associated shortness of breath at the present time. He denies any lower extremity DIPIKA, orthopnea, or paroxysmal nocturnal dyspnea. Patient is skeptical about diagnosis of atrial fibrillation. He does not believe he has atrial fibrillation, despite being found to be in atrial fibrillation in the hospital. Additionally, he was profoundly hypokalemic, which likely incited his arrhythmia genic event. Patient denies any previous history of CVA, PVD, DM, HTN, Depressed LVEF, and CAD. ROS 10 point ROS is performed and is negative unless otherwise specified in HPI Past Medical History He has a past medical history of Aching headache. Surgical History He has a past surgical history that includes Cholecystectomy. Social History He reports that he has never smoked. He has never used smokeless tobacco. He reports current alcohol use. He reports that he does not use drugs. Family History Family History Problem Relation Name Age of Onset Brain Aneurysm Mother Stroke Father Heart attack Sister Medications Current Outpatient Medications on File Prior to Visit Medication Sig Dispense Refill apixaban (Eliquis) 5 mg tablet 5 mg. aspirin (Vazalore) 81 mg capsule Take by mouth. chlorthalidone (Hygroton) 25 mg tablet TAKE 1 TABLET BY MOUTH EVERY MORNING WITH FOOD FOR 90 DAYS gabapentin (Neurontin) 300 mg capsule Take 300 mg by mouth twice a day. metoprolol tartrate (Lopressor) 25 mg tablet omeprazole (PriLOSEC) [address] capsule 40 mg. potassium chloride CR (K-Tab) 20 mEq ER tablet rosuvastatin (Crestor) 20 mg tablet Take 20 mg by mouth. No current facility-administered medications on file prior to visit. Allergies Tramadol and Amoxicillin Physical Exam VITAL SIGNS: BP 126/78 (BP Location: Right arm, Patient Position: Sitting, BP Cuff Size: Adult) Pulse 78 Resp 16 Ht 1.829 m (6') Wt 129 kg (285 lb) SpO2 95% BMI 38.65 kg/m??? Constitutional: Well developed, Well nourished, No acute distress, Non-toxic appearance. HENT: Normocephalic, Atraumatic, Bilateral external ears have normal appearance, Nose appears normal, nares are patent. Eyes: PERRLA, EOMI, Conjunctiva normal, No discharge. Neck: Normal range of motion, No tenderness, Supple, No stridor. No cervical lymphadenopathy noted. Cardiovascular: Normal heart rate, Normal rhythm, No murmurs, No rubs, No gallops. Thorax & Lungs: Normal breath sounds, No respiratory distress, No wheezing, No chest tenderness to palpation. Abdomen: Bowel sounds normal, Soft, Nontender, No masses, No pulsatile masses. Skin: Warm, Dry, No erythema, No rash. Back: No tenderness, No CVA tenderness. Extremities: Intact distal pulses, No edema, No tenderness, No cyanosis, No clubbing. Musculoskeletal: Grossly normal strength in extremities Neurologic: Alert & oriented x 3, no gross focal neurological deficits Psychiatric: Affect normal, Judgment normal, Mood normal. EKG results: No results found for this or any previous visit (from the past 4464 hour(s)). Echo results: No echocardiogram results found for the past 12 months Radiology: No image results found. Assessment/Plan: Kim Nichols is a 63 y.o. male with Chest pain, unspecified type Atrial fibrillation, unspecified type (CMS/HCC) Mixed hyperlipidemia Primary hypertension Diagnoses and all orders for this visit: Atrial fibrillation, unspecified type (CMS/HCC) - ECG 12 lead; Future Chest pain is atypical in nature. Patient had a Lexiscan myocardial perfusion imaging which demonstrates a fixed perfusion defect in the inferior portion of the heart. No reversible iscehmia He had a cardiac catheterization performed in 2019 for abnormal stress test with reversible perfusion defect in the inferior portion of the heart. Cardiac cath was unremarkable. There was no significant coronary artery disease identified Discussed options with patient, including invasive coronary angiography versus optimization of medical management and evaluation for additional causes of chest pain. Patient prefers to look into alternative causes of chest pain at the present time. He declines cath presently, but will consider in future if chest pain persists Patient is moderate risk for surgery. He may proceed without additional cardiac (more content not included)... [facility] 2023 Note HNO ID: [id number] Author: Juan R Bey MD Service: ? [...] issues. 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 Author Type: [...] list in [facility] MEDICATIONS: Gabapentin, Holland, Tylenol Have you ever seen a pain [...] or completing routine daily living activities? No [facility] 2023 History of Presen t illness Narrative [...] issues. 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 Author Type: Nurse Practitioner Type: Progress Notes Filed: 08/01/2023 1:30 PM Note Text: SPINE SURGERY ESTABLISHED VISIT This is a virtual visit using [employer] Video Visit. It required patient-provider interaction for the medical decision making as documented below. DATE OF SERVICE: 08/01/2023 DATE OF LAST VISIT: 06/02/2023 SUBJECTIVE: HPI:Kim Nichols is a 62 year old male presenting via virtual vist s/p Left L5 transforaminal epidural steroid injection on 07/01/[address] Camp. [place] great initially and for the first few days after injection, symptoms returned shortly after. Patient has increased his Gabapentin 300 mg from BID to TID and is feeling good today. 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 SIGNATURE: Darren Harris APRN.KIRILL PATIENT NAME: Kim Nichols DATE: August 01, 2023 TIME: 12:53 PM PAGER: [facility] 06-26-2023 Miscellaneous Notes Phoned patient and message left for Kim to confirm appointment for Kim Nichols for spine procedure on 07/01/2023. Patient notified that [place] will call patient the night before with the time to arrive for injection. Patient verbalized understanding of the following: -Provided education on spine procedure and answered questions related to spine injection procedure. -[employer]or is needed to drive patient home. -NPO [...] to report. Diabetic: No Patient given number [phone], spine injections schedulers, if there is any [...] POST INJECTION INSTRUCTIONS documented in this encounter [facility] 06-02-2023 Note HNO ID: [id number] Author: Darren Harris APRN.MEASUREMENT DEPARTMENT CHIEF CLERK Service: ? Author Type: Nurse Practitioner Type: [...] with him pain. He also is prescribed Holland for breakthrough pain which he only takes [...] not included)... [facility] 06-02-2023 History of Presen t illness Narrative [...] with him pain. He also is prescribed Holland for breakthrough pain which he only takes [...] which included preparing to see the patient, [id number] patient care, completing clinical documentation, obtaining and/or reviewing separately obtained history, performing a medically appropriate examination, counseling and educating the patient/family/caregiver, independently interpreting results (not separately reported), and communicating results to the patient/family/caregiver. SIGNATURE: Darren Harris APRN.CNP PATIENT NAME: Kim Nichols DATE: June 02, 2023 TIME: 1:57 PM PAGER: documented in this encounter [facility] 05-14-2023 Note HNO ID: [id number] Author: Ember Delatorre PA-C Service: ? Author Type: Physician Horticultural Farmer Type: Progress Notes Filed: 05/14/2023 4:17 PM Note Text: Per Triage: Kim Nichols is a 62 year old male that requests evaluation of lumbar spine. Per review, they have symptoms of back and LLE pain. Positive for numbness. CMT: Medication: Gabapentin, Tylenol, Holland Studies (Reports unless indicated) MRI Lumbar: L4/5 moderate left foramen narrowing which may contribute to patient's symptoms 2. L5/S1 disc protrusion without significant canal or foramen narrowing. Disposition: Please schedule with surgical SANDY. Consider if injection is appropriate or on effective dose of Neurontin. Also see if symptoms correlate with imaging. [facility] 05-14-2023 History of Presen t illness Narrative Per Triage: Kim Nichols is a 62 year old male that requests evaluation of lumbar spine. Per review, they have symptoms of back and LLE pain. Positive for numbness. CMT: Medication: Gabapentin, Tylenol, Holland Studies (Reports unless indicated) MRI Lumbar: L4/5 [...] Health Provider or Pain Management Provider at [facility]? No If answer is YES please [...] facility where the MRI/CT/myelogram was completed: [facility] [address] [place] [address] MRI/CT/myelogram viewable in Epic: No If not, please provide [phone] to fax in imaging reports for review. [...] Additional Comments Hydrocodone documented in this encounter [facility] 05-06-2023 Note HNO ID: [id number] Author: Mauricio Kelley Service: ? Author Type: ? Type: Progress Notes Filed: 05/14/2023 4:17 PM Note Text: Patient name: Kim Nichols Are you being referred by a [facility] Spine Health Provider or Pain Management Provider at [facility]? No If answer is YES please [...] facility where the MRI/CT/myelogram was completed: The [address] [address] MRI/CT/myelogram viewable in Epic: No If not, please provide [phone] to fax in imaging reports for review. [...] Comments Hydrocodone [facility] Evaluation note No assessment inform [facility] Work Phone: Evaluation note Diagnosis Radiculopathy, lumbar region- Primary Thoracic or lumbosacral neuritis or radiculitis, unspecified Lumbar disc herniation Displacement of lumbar intervertebral disc without myelopathy [facility] Lumbar radiculopathy- Primary Thoracic or lumbosacral neuritis or radiculitis, unspecified Displacement of lumbar intervertebral disc without myelopathy [facility] Diagnosis Meralgia paresthetica of left side- Primary Meralgia paresthetica Chronic midline low back pain without sciatica documented [facility] this [facility] of Present illness NarrativePatient returns in [...] their favorable impact on blood pressure andcholesterol.-[facility] [address] DO Work Phone: [...] to call if they arise or occur. [facility] [employer] [address] DO Work Phone: History of Present [...] to call if they arise or occur. [facility] [employer] 250 DO Work Phone: Reason for referral (narrative)* Diagnostic Procedure Only (Routine) - Pending Review Specialty Diagnoses / Procedures Referred By Erlinda mao Referred To Contact XR IMAGING Diagnoses Meralgia paresthetica of left side Procedures XR LUMBAR MOTION 4V AP/LAT/ FLEX/EXT RADEX SPINE LUMBOSACRAL MINIMUM 4 VIEWS Juan R Bey MD [address] [place], [place] [id number] [place] [address] Referral ID Status Reason Start Date Expiration Date Visits Requested Visits Authorized [id number] Pending Review Auto-Generat ed Referral 2023 09/02/2024 1 1 [facility] Summary Purpose Family History No Family [...] and content) DATE CREATED AUTHOR 01/05/2022 [facility] DATE CREATED AUTHOR AUTHOR'S ORGANIZ ATION 07/28/2022 [facility] DATE CREATED AUTHOR AUTHOR'S ORGANIZ ATION 05/14/2023 [facility] DATE CREATED AUTHOR AUTHOR'S ORGANIZ ATION 05/14/2023 [employer] DATE CREATED AUTHOR AUTHOR'S ORGANIZ ATION 2023 [facility] DATE CREATED AUTHOR AUTHOR'S ORGANIZ ATION 08/05/2023 [facility] DATE CREATED AUTHOR AUTHOR'S ORGANIZ ATION 06/22/2024 [facility] EPIC DATE CREATED AUTHOR AUTHOR'S ORGANIZ ATION 06/24/2024 [facility] Care Teams (unrecognized sec tion and content) Team Status: Inactive Member Role Status Dates Avi Cervantes MD Primary Care Provider Active Bijan Betts Jr, DO Attending Provider Active Team Status: Active Member Role Status Dates Avi Cervantes MD Primary Care Provider Active Data Analyst Relationship Specialty Start Date End Date Avi Cervantes MD [address] [place] [address] Referring Family Medicine 04/24/23 Data Analyst Relationship Specialty Start Date End Date Avi Cervantes MD [address] [place] [address] Referring Family Medicine 04/24/23 Data Analyst Relationship Specialty Start Date End Date Avi Cervantes MD [address] [place] [address] Referring Family Medicine 04/24/23 Data Analyst Relationship Specialty Start Date End Date Avi Cervantes MD [address] [facility] [place] [place] [address] PCP - General Family Medicine 06/25/23 Avi Cervantes MD [address] [place] [facility] [address] Referring Family Medicine 04/24/23 Data Analyst Relationship Specialty Start Date End Date Avi Cervantes MD [address] [facility] [place] [address] PCP - General Family Medicine 06/25/23 Avi Cervantes MD [address] [facility] [place] [address] Referring Family Medicine 04/24/23 Data Analyst Relationship Specialty Start Date End Date Avi Cervantes MD [address] [place] [address] PCP - General Family Medicine 06/25/23 Avi Cervantes MD [address] [facility] [place] [address] Referring Family Medicine 04/24/23 Goals (unrecognized section [...] or prosecute any alcohol or drug abuse patient.[facility] the event this information is protected by the Federal Confidentiality of Alcohol and Drug Abuse Patient Records regulations: The Federal rules restrict any use of the information to criminally investigate or prosecute any alcohol or drug abuse patient.[facility] the event this information is protected by the Federal Confidentiality of Alcohol and Drug Abuse Patient Records regulations: The Federal rules restrict any use of the information to criminally investigate or prosecute any alcohol or drug abuse patient.[facility] the event this information is protected by the Federal Confidentiality of Alcohol and Drug Abuse Patient Records regulations: The Federal rules restrict any use of the information to criminally investigate or prosecute any alcohol or drug abuse patient.[facility] Hospital[facility] the event this information is protected by the Federal Confidentiality of Alcohol and Drug Abuse Patient Records regulations: The Federal rules restrict any use of the information to criminally investigate or prosecute any alcohol or drug abuse patient.[facility] HospitalIn the event this information is protected by the Federal Confidentiality of Alcohol and Drug Abuse Patient Records regulations: The Federal rules restrict any use of the information to criminally investigate or prosecute any alcohol or drug abuse patient.[facility] Reason for Visit (unrecogniz ed section [...] BE BASED ON THE PRIMARY CLINICAL RECORDS. [employer] provides no warranty or guarantee of the accuracy or completeness of information in this document.
== END 2024-07-02 08:04 | disposition home or self-care (01) ==
LOC: FL 08:03
PROVIDERS: PCP Family Medicine; Visit Provider Family Medicine
DX: K21.9 Gastro-esophageal reflux disease without esophagitis (principal)
CPT/HCPCS: 74246; 76120

== ENCOUNTER 2024-07-09 12:23 | Outpatient (OUT) | payer OTHER, SELFPAY ==
--- OUTSIDE RECORDS SUMMARY | 2024-07-09 12:29 | XMS_ITS | CCD ---
Author Organization [facility] Care Team Providers Care Dental Surgery Doctor Name Role Phone Unavailable Unavailable DR AVI CERVANTES Attending Unavailable MARLENI, DR CÁRDENAS Admitting Unavailable MARLENI, DR CÁRDENAS Attending Unavailable MARLENI, DR CÁRDENAS Admitting Unavailable MARLENI, DR CÁRDENAS Consulting Unavailable WEST, DR OSCAR Ingram Consulting Unavailable Avi Cervantes Unavailable MD Avi Cervantes Primary Care Provider [phone] Bijan Betts Jr Attending Provider [phone] Bijan Betts Jr Attending Unavailable Bijan Betts Jr Admitting Unavailable Avi Cervantes Primary Care Unavailable Leslie DAVALOS, Dr. Reilly Hernandez Referring Unavailable Leslie DAVALOS, Dr. Reilly Hernandez Attending Unavailable Dr. Avi Cervantes Primary Care Unavail able Avi Cervantes MD Unavailable Avi Cervantes MD Primary Care Provider [phone] DARREN HARRIS Attending Unavailable AVI CERVANTES Primary Care Unavailable DARREN HARRIS Attending Unavailable JESSICA CAMP Admitting Unavailable JESSICA CAMP Attending Unavailable JESSICA CAMP Referring Unavailable JUAN R BEY Attending Unavailable AVI CERVANTES Primary Care Unavailable JR. FLETCHER GEORGE C Attending Unavaila amy FLETCHER JR., GEORGE C Referring Unavaila amy FLETCHER JR., GEORGE C Attending Unavaila RICHARD Valentine Attending Unavailable Rell ADAMSON Attending Unavailable Allergies Allergy Classification Reported Allergen(s) Allergy Type Date of Onset Reaction(s) Facility (14 sources) Amoxicillin; Translations: [amoxicillin] Drug Allergy 09-26-2020 [facility] (1 source) Amoxicillin Drug Allergy [facility] Repository (1 source) traMADol Drug Allergy [facility] Repository (1 source) Amoxicillin Drug Allergy 09-26-2020 [facility] Repository (1 source) traMADol; Translations: [TRAMADOL] Drug Allergy 05-10-2024 [facility] Repository Medications Current Medications Medication Drug [...] P O Q6H September 26, 2020 1:00am Steens 5-325 MG T ABS TAKE 1 TABLET [...] [Coronary atherosclerosis of unspecified type of vessel, nez perce or graft] Chronic Diabetes mellitus without complication [...] Range Facility Office Visiton 06-11-2024 Follow-up visit [id number] Kim Nichols 1960 M Date Provider Department Center 06/11/2024 3848-RICHARD BENITEZ [facility] Family History Problem Relation Age of Onset Brain Aneurysm Mother Stroke Father Heart attack Sister Family Status - Relation Status Age at Mother Father Sister Level of Service:52862 GA OFFICE/OUTPATIENT NEW MODERATE MDM 45 MINUTES Reason for Visit and Comments: New Patient [Other] - CHEST PAIN/AFIB Normal [facility] CNOVon 2023 CNOV Office Visit (SPSLUH ) KIM NICHOLS ([id number]) 1960 M Date Time Provider Department 08/04/23 [...] opioids Medications: See medication reconciliation list in [facility] MEDICATIONS: Gabapentin, Steens, Tylenol Have you ever seen a pain [...] issues. 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 [facility] 07-08-2023 [facility] Telephone (SPNMMN) KIM NICHOLS ([id number]) 1960 M Date Time Provider Department 07/08/23 ZOË JESSICA G SPNMMN During your visit today, we recorded the following information about you: Stacy Gallagher RN 07/08/2023 12:56 PM Signed Post Spine Injection phone call: [phone] on 07/08/23 Patient denies fever, chills, new [...] appointment 2-4 weeks post procedure by calling [phone] Patient does not have any questions or [...] Status:Closed by STACY GALLAGHER on 07/08/23 Normal [facility] HISTORY PHYSICALon HISTORY PHYSICAL HNO ID: [id number] Author: Sherice Galvin APRN.KIRILL Service: ? Author [...] July 01, 2023 TIME: 9:04 AM Normal [facility] OPERATIVE NOon 07-01-2023 OPERATIVE NO HNO ID: [id number] Author: Jessica Camp DO Service: Physical Medicine AND Rehabilitation Author Type: Physician Type: Operative Report Filed: 07/01/2023 9:40 AM Note Text: PROCEDURE REPORT Surgery/Procedure Date: July 01, 2023 Interventionalist: Jessica Camp DO Procedure(s): Left L5 transforaminal epidural steroid injection Pre-Op/Pre-Procedure Diagnosis: Lumbar radiculopathy Post-Op Diagnosis: same SUBJECTIVE: Kim Nichols is a 62 year old male, who presents to the [facility] for a left L5 transforaminal epidural steroid injection. This is his first (1) procedure. He states he is NPO and has a lokie driver for return home. Pain is central [...] home in stable condition. DO Fátima Castrejon [facility] Nina 06-26-2023 [facility] Telephone (SPNMMN) JESSIKIM ([id number]) 1960 M Date Time Provider Department 06/26/23 JESSICA CAMP SPNMMN During your visit today, we recorded the following information about you: Oscar RollinsHERNANDO 06/26/2023 9:20 AM Signed Phoned patient and message left for Kim to confirm appointment for Kim Nichols for spine procedure on 07/01/2023. Patient notified that Jefferson Davis will call patient the night before with the time to arrive for injection. Patient verbalized understanding of the following: -Provided education on spine procedure and answered questions related to spine injection procedure. -Mechanical Design Technician is needed to drive patient home. -NPO [...] to report. Diabetic: No Patient given number [phone], spine injections schedulers, if there is any [...] Encounter Status:Closed by OSCAR ROLLINS on 06/26/23 [facility] [place] CNOVon 06-02-2023 CNOV Office Visit (SPNSMN ) KIM NICHOLS ([id number]) 1960 M Date Time Provider Department 06/02/23 1:40 PM DARREN HARRIS SPNSMN During your visit today, we recorded the following information about you: Pulse Respiration Blood pressure Weight 63/minute 18/minute 128/84 117 kg Height 1.829 m Darren Harris APRN.[employer] 06/03/2023 1:01 PM Signed SPINE SURGERY OUTPATIENT [...] with him pain. He also is prescribed Steens for breakthrough pain which he only takes [...] well de (more content not included)... Normal [facility] Office Visit (Cardiology)on 05-13-2023 Follow-up visit Diagnoses/Problems Assessed Coronary disease (414.00) (I25.10) Essential hypertension, benign (401.1) (I10) Hyperlipidemia (272.4) (E78.5) Class 2 obesity with body mass index (BMI) of 36.0 to 36.9 in adult (278.00,V85.36) (E66.9,Z68.36) Never a smoker Orders Class 2 obesity with body mass index (BMI) of 36.0 to 36.9 in adult Healthy Weight Tips; Status:Complete - Retrospective Authorization; Done: [id number] Some eating tips that can help you lose weight.; Status:Complete - Retrospective Authorization; Done: [id number] Coronary disease, Hyperlipidemia Renew: Aspirin EC Low Dose 81 MG Oral Tablet Delayed Release; TAKE 1 TABLET DAILY DIRECTED Hyperlipidemia Renew: Rosuvastatin Calcium 20 MG Oral Tablet; take 1 tablet by mouth at bedtime Socx: Never a smoker Tobacco Use Screening; Status:Complete; Done: [id number] Patient Instructions Please bring all medicines, vitamins, [...] MG Oral CapsuleTAKE 1 CAPSULE TWICE DAILY. Steens 5-325 MG TABSTAKE 1 TABLET EVERY 4 [...] negative for complaint. Vitals Vital Signs Recorded: [id number] 11:22AM Heart Rate64, R Radial Favgtrib300, RUE, Sitting Xecjnlhmc24, RUE, Sitting Height6 ft Uqqcgi483 lb BMI Djipnldego48.21 kg/m2 BSA Calculated2.41 Tobacco Useb) No PHQ-2 [...] no hep (more content not included)... Normal [facility] Tobacco Screening.on 023 Adult depression screening assessment No [facility] 250 DO Work Phone: Tobacco use status CPHS b) No [facility] 250 DO Work Phone: XR knee LT 4V*on 07-17-2022 XR knee LT 4V* [facility] Main [place] [address] [place] [id number] XRay Report Signed Patient: Kim Nicohls MR#: [id number] : 1960 Acct:[id number] Age/Sex: 61 / M ADM Date: 07/17/22 Loc: [place] Room: Type: [facility] Attending Dr: Bijan Betts Jr, DO [...] Stacy Ellis M.D.07/17/2022 1:18 PM Dictation Location: [place] [address] Transcribed By: [facility] 07/17/22 1318 Dictated By: Stacy Ellis MD 07/17/22 1315 Signed By: 07/17/[address] [facility] Tobacco Screening.on 022 Adult depression screening assessment No [facility] 250 DO Work Phone: Fall risk assessment c) Not medically indicated [facility] 250 DO Work Phone: Tobacco use status CPHS b) No [facility] 250 DO Work Phone: H PYLORI ANTIBODY IGGon 11-28 H. PYLORI IGG ABS 0.45 Index Value Normal 0.00-0.79 [facility] Comment on above: Result Comment: Nega tive <0.80 Equivocal 0.80 - 0.89 Positive >0.89 Performed By: #### L IPID, TSH, T7, URIC, CMP #### [facility] [address] [place], [place] [address] Dr. Conor Chan INSULINon 12-21-2021 Insulin 55.2 uIU/mL Critically high 2.6-24.9 [facility] Comment on above: Performed By: #### I NSULIN #### [facility] [address] [place] [address] Dr. Conor Chan TESTOSTERONE, TOTALon 2021 Testosterone [Mass/Vol] 380 ng/dL Normal 264-916 [facility] Comment on above: Result Comment: Adul t male reference interval is based on a population of healthy nonobese males (BMI <30) between 19 and 39 years old. Travon, et.al. JCEM 2017,102;5737-3677. PMID: [id number]. Performed By: #### L IPID, TSH, T7, URIC, CMP #### [facility] [address] [place] [address] Dr. Conor Chan CBC AUTO DIFFon 12-20-2021 BASO # 0.0 103/ul Normal 0.0-0.1 [facility] Comment on above: Performed By: #### C BC #### [facility] [address] [place] [address] Dr. Conor Chan Basophils/100 WBC (Bld) 0.5 % Normal 0.2-2.0 [facility] Comment on above: Performed By: #### C BC #### [facility] [address] [place] [address] Dr. Conor Chan EO # 0.2 103/ul Normal 0.0-0.7 [facility] Comment on above: Performed By: #### C BC #### [facility] [address] [place] [address] Dr. Conor Chan Eosinophils/100 WBC (Bld) 3.5 % Normal 0.9-7.0 [facility] Comment on above: Performed By: #### C BC #### [facility] [address] [place] [address] Dr. Conor Chan Erythrocyte distribution width (RBC) [Ratio] 13.8 % Normal 11.0-15.0 [facility] Comment on above: Performed By: #### C BC #### [facility] [address] [place] [address] Dr. Conor Chan Hematocrit (Bld) [Volume fraction] 48.5 % Normal 42.0-54.0 [facility] Comment on above: Performed By: #### C BC #### [facility] [address] [place] [address] Dr. Conor Chan Hemoglobin (Bld) [Mass/Vol] 16.3 g/dL Normal 14.0-18.0 [facility] Comment on above: Performed By: #### C BC #### [facility] [address] [place] [address] Dr. Conor Chan IG # 0.02 10e3/ul Normal 0.00-0.03 [facility] Comment on above: Performed By: #### C BC #### [facility] [address] [place] [address] Dr. Conor Chan IG % 0.3 % Normal 0.0-0.5 [facility] Comment on above: Performed By: #### C BC #### [facility] [address] [place] [address] Dr. Conor Chan LYMPH # 1.4 103/ul Normal 1.2-3.8 [facility] Comment on above: Performed By: #### C BC #### [facility] [address] [place] [address] Dr. Conor Chan Lymphocytes/100 WBC (Bld) 21.7 % Normal 20.5-60.0 [facility] Comment on above: Performed By: #### C BC #### [facility] [address] [place] [address] Dr. Conor Chan MANUAL DIFF REQ NO Normal [facility] Comment on above: Performed By: #### C BC #### [facility] [address] [place] [address] Dr. Conor Chan MCH (RBC) [Entitic mass] 28.5 pg Normal 25.9-34.0 [facility] Comment on above: Performed By: #### C BC #### [facility] [address] [place] [address] Dr. Conor Chan MCHC (RBC) [Mass/Vol] 33.6 g/dL Normal 29.9-35.2 [facility] Comment on above: Performed By: #### C BC #### [facility] [address] [place] [address] [address] Conor Chan MCV (RBC) [Entitic vol] 84.9 fL Normal 80.0-94.0 [facility] Comment on above: Performed By: #### C BC #### [facility] [address] [place] [address] Dr. Conor Chan MONO # 0.6 103/ul Normal 0.3-0.8 [facility] Comment on above: Performed By: #### C BC #### [facility] [address] [place] [address] Dr. Conor Chan Monocytes/100 WBC (Bld) 9.3 % Normal 1.7-12.0 [facility] Comment on above: Performed By: #### C BC #### [facility] [address] [place] [address] Dr. Conor Chan NEUT # 4.1 103/ul Normal 1.4-6.5 [facility] Comment on above: Performed By: #### C BC #### [facility] [address] [place] [address] Dr. Conor Chan Neutrophils/100 WBC (Bld) 64.7 % Normal 43.0-75.0 [facility] Comment on above: Performed By: #### C BC #### [facility] [address] [place] [address] Dr. Conor Chan Platelet mean volume (Bld) [Entitic vol] 9.8 fL Normal 9.5-13.5 [facility] Comment on above: Performed By: #### C BC #### [facility] [address] [place] [address] Dr. Conor Chan PLT 235 103/ul Normal 150-450 [facility] Comment on above: Performed By: #### C BC #### [facility] [address] [place] [address] Dr. Conor Chan RBC 5.71 106/ul Normal 4.70-6.10 [facility] Comment on above: Performed By: #### C BC #### [facility] [address] [place] [address] Dr. Conor Chan WBC 6.4 103/ul Normal 4.0-11.0 [facility] Comment on above: Performed By: #### C BC #### [facility] [address] [place] [address] Dr. Conor Chan FREE THYROXINE INDEX T7on FTI 2.89 Normal [facility] Comment on above: Performed By: #### L IPID, TSH, T7, URIC, CMP #### [facility] [address] [place] [address] Dr. Conor Chan T3U 34.0 % Normal 23.5-40.5 [facility] Comment on above: Performed By: #### L IPID, TSH, T7, URIC, CMP #### [facility] [address] [place] [address] Dr. Conor Chan T4 [Mass/Vol] 8.50 ug/dL Normal 5.53-11.00 [facility] Comment on above: Performed By: #### L IPID, TSH, T7, URIC, CMP #### [facility] [address] [place] [address] Dr. Conor Chan GLYCOHEMOGLOBIN A1Con 2021 ADA RECOMMENDATION ADA THERAPEUTIC TARGET 6.0 - 7.0 ACTION SUGGESTED > 7.0 Normal [facility] Comment on above: Performed By: #### A 1C #### [facility] [address] [place] [address] Dr. Conor Chan Glucose [Mass/Vol] 126 mg/dL Normal [facility] Comment on above: Performed By: #### A 1C #### [facility] [address] [place] [address] Dr. Conor Chan HbA1c (Bld) [Mass fraction] 6.0 % Normal <=6.0 [facility] Comment on above: Performed By: #### A 1C #### [facility] [address] [place] [address] [address] Conor Chan LIPID PROFILEon 12-20-2021 CHOL-HDL RATIO NORM SEE BELOW Normal [facility] Comment on above: Result Comment: 3.3 - 4.4 LOW RISK 4.4 - 7.1 AVERAGE RISK 7.1 - 11.0 MODERATE RISK >11.0 HIGH RISK Performed By: #### L IPID, TSH, T7, URIC, CMP #### [facility] [address] [place] [address] [address] Conor Chan Cholesterol [Mass/Vol] 161 mg/dL Normal <=200 [facility] Comment on above: Performed By: #### L IPID, TSH, T7, URIC, CMP #### [facility] [address] [place] [address] [address] Conor Chan Cholesterol in HDL [Mass/Vol] 50 mg/dL Normal [facility] Comment on above: Performed By: #### L IPID, TSH, T7, URIC, CMP #### [facility] [address] [place] [address] [address] Conor Chan Cholesterol in LDL [Mass/Vol] 96.0 mg/dL Normal [facility] Comment on above: Performed By: #### L IPID, TSH, T7, URIC, CMP #### [facility] [address] [place] [address] [address] Conor Chan Cholesterol.total/Ch olesterol in HDL [Mass ratio] 3.2 {ratio} Normal [facility] Comment on above: Performed By: #### L IPID, TSH, T7, URIC, CMP #### [facility] [address] [place] [address] [address] Conor Chan HDL NORMAL > or = 60 mg/dl - LO W CARDIOVASCULAR RISK <40 mg/dl - HIGH CARDIOVASCULAR RISK Normal [facility] Comment on above: Performed By: #### L IPID, TSH, T7, URIC, CMP #### [facility] [address] [place] [address] [address] Conor Chan LDL CALC NORMAL SEE BELOW Normal [facility] Comment on above: Result Comment: <100 mg/dl OPTIMAL 100 - 129 mg/dl NEAR OR ABOVE OPTIMAL 130 - 159 mg/dl BORDERLINE HIGH 160 - 189 mg/dl HIGH >190 mg/dl VERY HIGH Performed By: #### L IPID, TSH, T7, URIC, CMP #### [facility] [address] [place] [address] [address] Conor Chan Triglyceride [Mass/Vol] 75 mg/dL Normal <=150 [facility] Comment on above: Performed By: #### L IPID, TSH, T7, URIC, CMP #### [facility] [address] [place] [address] [address] Conor Chan VLDL CALC 15.0 mg/dL Normal [facility] Comment on above: Performed By: #### L IPID, TSH, T7, URIC, CMP #### [facility] [address] [place] [address] Dr. Conor Chan PROF 14(COMP METB)on 022 Albumin [Mass/Vol] 3.7 g/dL Normal 3.5-5.0 [facility] Comment on above: Performed By: #### L IPID, TSH, T7, URIC, CMP #### [facility] [address] [place] [address] [address] Conor Chan Albumin/Globulin [Mass ratio] 0.9 {ratio} Normal [facility] Comment on above: Performed By: #### L IPID, TSH, T7, URIC, CMP #### [facility] [address] [place] [address] [address] Conor Chan ALP [Catalytic activity/Vol] 58 U/L Normal 38-126 [facility] Comment on above: Performed By: #### L IPID, TSH, T7, URIC, CMP #### [facility] [address] [place] [address] [address] Conor Chan ALT [Catalytic activity/Vol] 40 U/L Normal 21-72 [facility] Comment on above: Performed By: #### L IPID, TSH, T7, URIC, CMP #### [facility] [address] [place] [address] [address] Conor Chan Anion gap [Moles/Vol] 5.5 mmol/L Normal [facility] Comment on above: Performed By: #### L IPID, TSH, T7, URIC, CMP #### [facility] [address] [place] [address] Dr. Conor Chan AST [Catalytic activity/Vol] 18 U/L Normal 17-59 [facility] Comment on above: Performed By: #### L IPID, TSH, T7, URIC, CMP #### [facility] [address] [place] [address] Dr. Conor Chan Bilirubin [Mass/Vol] 0.5 mg/dL Normal 0.2-1.3 [facility] Comment on above: Performed By: #### L IPID, TSH, T7, URIC, CMP #### [facility] [address] [place] [address] Dr. Conor Chan Calcium [Mass/Vol] 9.9 mg/dL Normal 8.4-10.2 [facility] Comment on above: Performed By: #### L IPID, TSH, T7, URIC, CMP #### [facility] [address] [place] [address] Dr. Conor Chan Chloride [Moles/Vol] 97 mmol/L Critically low 98-107 [facility] Comment on above: Performed By: #### L IPID, TSH, T7, URIC, CMP #### [facility] [address] [place] [address] Dr. Conor Chan CO2 [Moles/Vol] 30.7 mmol/L Critically high 22.0-30.0 [facility] Comment on above: Performed By: #### L IPID, TSH, T7, URIC, CMP #### [facility] [address] [place] [address] Dr. Conor Chan Creatinine [Mass/Vol] 1.04 mg/dL Normal 0.66-1.25 [facility] Comment on above: Performed By: #### L IPID, TSH, T7, URIC, CMP #### [facility] [address] [place] [address] Dr. Conor Chan EGFR-AF BHUTANESE >60 Normal >=60 [facility] Comment on above: Performed By: #### L IPID, TSH, T7, URIC, CMP #### [facility] [address] [place] [address] Dr. Conor Chan EGFR-NON AF BHUTANESE >60 Normal >=60 [facility] Comment on above: Performed By: #### L IPID, TSH, T7, URIC, CMP #### [facility] [address] [place] [address] Dr. Conor Chan Globulin (S) [Mass/Vol] 4.2 g/dL Normal [facility] Comment on above: Performed By: #### L IPID, TSH, T7, URIC, CMP #### [facility] [address] [place] [address] Dr. Conor Chan Glucose [Mass/Vol] 122 mg/dL Critically high 74-106 T [facility] Comment on above: Performed By: #### L IPID, TSH, T7, URIC, CMP #### [facility] [address] [place] [address] Dr. Conor Chan Potassium [Moles/Vol] 3.2 mmol/L Critically low 3.4-5.0 [facility] Comment on above: Performed By: #### L IPID, TSH, T7, URIC, CMP #### [facility] [address] [place] [address] Dr. Conor Chan Protein [Mass/Vol] 7.9 g/dL Normal 6.1-8.2 [facility] Comment on above: Performed By: #### L IPID, TSH, T7, URIC, CMP #### [facility] [address] [place] [address] Dr. Conor Chan Sodium [Moles/Vol] 130 mmol/L Critically low 137-145 Th [facility] Comment on above: Performed By: #### L IPID, TSH, T7, URIC, CMP #### [facility] [address] [place] [address] Dr. Conor Chan Urea nitrogen [Mass/Vol] 15.0 mg/dL Normal 9.0-20.0 [facility] Comment on above: Performed By: #### L IPID, TSH, T7, URIC, CMP #### [facility] [address] [place] [address] [address] Conor Chan Urea nitrogen/Creatinine [Mass ratio] 14.4 mg/mg Normal [facility] Comment on above: Performed By: #### L IPID, TSH, T7, URIC, CMP #### [facility] [address] [place] [address] Dr. Conor Chan TSHon 12-20-2021 TSH 2.122 uIU/mL Normal 0.470-4.680 [facility] Comment on above: Performed By: #### L IPID, TSH, T7, URIC, CMP #### [facility] [address] [place] [address] Dr. Conor Chan TSH RANGE SEE BELOW Normal [facility] Comment on above: Result Comment: <0.3 4 UIU/ml HYPERTHYROID 0.34-5.60 UIU/ml EUTHYROID >5.60 UIU/ml HYPOTHYROID Performed By: #### L IPID, TSH, T7, URIC, CMP #### [facility] [address] [place] [address] Dr. Conor Chan URIC ACID SERUMon 12-20-2021 Urate [Mass/Vol] 7.3 mg/dL Normal 3.5-8.5 [facility] Comment on above: Performed By: #### L IPID, TSH, T7, URIC, CMP #### [facility] [address] [place] [address] Dr. Conor Chan XR LSPINE MIN 4 [...] OSCAR FRANCO Date: 2021-12-20 10:06 Normal [facility] Vital Signs Date Time Vital Sign Value Performing Clinician Idalmis rausch 2023 08:03-0400 Body height 182.9 cm Bilal Butt Work Phone: [facility] 2023 08:03-0400 Body weight 120.2 kg Bilal Butt Work Phone: [facility] 06-02-2023 13:26-0400 Body height 182.9 cm Darren Harris HOOP PUNCH AND COILER OPERATOR.STAINLESS STEEL FINISHER Work Phone: [facility] 06-02-2023 13:26-0400 Body weight 117.03 kg Darren Harris HOOP PUNCH AND COILER OPERATOR.STAINLESS STEEL FINISHER Work Phone: [facility] 06-02-2023 13:26-0400 Diastolic blood pressure 84 mm[Hg] Darren Harris HOOP PUNCH AND COILER OPERATOR.STAINLESS STEEL FINISHER Work Phone: [facility] 06-02-2023 13:26-0400 Heart rate 63 /min Darren Harris HOOP PUNCH AND COILER OPERATOR.STAINLESS STEEL FINISHER Work Phone: [facility] 06-02-2023 13:26-0400 Respiratory rate 18 /min Darren Harris HOOP PUNCH AND COILER OPERATOR.STAINLESS STEEL FINISHER Work Phone: [facility] 06-02-2023 13:26-0400 SaO2% (BldA) [Mass fraction] 95 % Darren Harris HOOP PUNCH AND COILER OPERATOR.STAINLESS STEEL FINISHER Work Phone: [facility] 06-02-2023 13:26-0400 Systolic blood pressure 128 mm[Hg] Darren Harris HOOP PUNCH AND COILER OPERATOR.STAINLESS STEEL FINISHER Work Phone: [facility] 05-13-2023 11:22-0400 Body height 182.88 cm Avi Cervantes Work Phone: [facility] [employer] [address] DO Work Phone: 05-13-2023 11:22-0400 Body mass index (BMI) [Ratio] 36.21 kg/m2 Avi Cervantes Work Phone: [facility] DO Work Phone: 05-13-2023 11:22-0400 Body surface area Derived from formula 2.41 m2 Avi M Hoy Work Phone: [facility] 250 DO Work Phone: 05-13-2023 11:22-0400 Body weight 121.11 kg Avi Zach Hoy Work Phone: [facility] DO Work Phone: 05-13-2023 11:22-0400 Diastolic blood pressure 78 mm[Hg] Avi Zach Hoy Work Phone: [facility] DO Work Phone: 05-13-2023 11:22-0400 Heart rate 64 /min Avi Zach Hoy Work Phone: [facility] DO Work Phone: 05-13-2023 11:22-0400 Systolic blood pressure 132 mm[Hg] Avi Aguilar Hoy Work Phone: [facility] DO Work Phone: 05-07-2022 11:36-0400 Body height 182.88 cm Avi Zach Hoy Work Phone: [facility] DO Work Phone: 05-07-2022 11:36-0400 Body mass index (BMI) [Ratio] 38.38 kg/m2 Avi Aguilar Hoy Work Phone: [facility] DO Work Phone: 05-07-2022 11:36-0400 Body surface area Derived from formula 2.47 m2 Avi Zach Hoy Work Phone: [facility] DO Work Phone: 05-07-2022 11:36-0400 Body weight 128.37 kg Avi Zach Hoy Work Phone: [facility] DO Work Phone: 05-07-2022 11:36-0400 Diastolic blood pressure 72 mm[Hg] Avi Cervantes Work Phone: [facility] DO Work Phone: 05-07-2022 11:36-0400 Heart rate 66 /min Avi Cervantes Work Phone: [facility] DO Work Phone: 05-07-2022 11:36-0400 Systolic blood pressure 110 mm[Hg] Avi Cervantes Work Phone: [facility] DO Work Phone: Encounters Encounter Date Encounter Type Care Provider Facility Start: 07-20-2024 ambulatory Rell ADAMSON Facility : [facility] Start: 07-05-2024 ambulatory Rell ADAMSON Facility: [facility] Start: 06-21-2024 End: 06-21-2024 ambulatory ELIAS EDEN Not Available Start: 06-11-2024 End: 06-11-2024 ambulatory [facility] Start: 05-10-2024 End: 05-10-2024 ambulatory ELIAS EDEN Not Available Start: 2023 End: 2023 ambulatory JUAN R BEY Facility:[facility] Start: 2023 End: 2023 Office outpatient new 30 minutes Juan R Bey MD Work Phone: [facility] Comment on above: Meralgia paresthetic a of left side (Primary Dx); Chronic midline low back pain without sciatica Start: 08-01-2023 End: 08-01-2023 ambulatory Darren Harris HOOP PUNCH AND COILER OPERATOR.STAINLESS STEEL FINISHER Work Phone: [facility] Comment on above: Dr chong Cut me open Start: 07-01-2023 End: 07-01-2023 ambulatory JESSICA CAMP Facility:[facility] Start: 06-26-2023 Telephone encounter Jessica Camp DO Work Phone: [facility] Comment on above: Preparations For Pro cedures (Pre-injection instructions) Start: 06-19-2023 Orders Only Jessica Montgomery is DO Work Phone: Neurology Comment on above: Lumbar radiculopathy (Primary Dx); Displacement of lumbar intervertebral disc without myelopathy Start: 06-02-2023 End: 06-03-2023 ambulatory DARREN HARRIS Facility:[facility] Start: 06-02-2023 End: 06-02-2023 Patient encounter procedure Darrensalome Harris HOOP PUNCH AND COILER OPERATOR.STAINLESS STEEL FINISHER Work Phone: [facility] Comment on above: Radiculopathy, lumba r region (Primary Dx); Lumbar disc herniation Start: 05-13-2023 Office outpatient vi sit 25 minutes Avi Cervantes Work Phone: [facility] [employer] DO Work Phone: Start: 05-13-[address] [facility]: Start: 05-06-2023 Chart abstracting None (Historical) Neurology Start: 12-16-2022 Rx Renewal Avi Cervantes Work Phone: [facility] DO Work Phone: Start: 07-17-2022 End: 07-17-2022 ambulatory Bijan Betts Jr Facility:[facility] Start: 07-17-2022 End: 07-17-2022 Departed Referred MD Avi Cervantes Work Phone: [facility] [address] Start: 05-07-2022 Office outpatient vi sit 25 minutes Avi Cervantes Work Phone: [facility] DO Work Phone: Start: 01-03-[address] AVI CERVANTES Facility :[facility] Start: 12-21-2021 Encounter for genera l adult medical examination without abnormal findings DR AVI CERVANTES [facility] Start: 12-20-2021 End: 12-21-[address] AVI CERVANTES Facility:[facility] Start: 12-20-2021 End: 12-21-2021 Encounter for general adult medical examination without abnormal findings DR AVI CERVANTES Facility: Start: 12-10-2021 Rx Renewal Reilly mcmahon MD Work Phone: [facility] 250 DO Work Phone: Procedures Date Procedure Procedure Detail Performing Clinician Start: 07-17-2022 Radiologic examinati on of knee MD Avi Cervantes Work Phone: Start: 12-20-[address] RONDA CERVANTES Comment on above: Performed By: #### P [facility] #### [facility] [address] [place] [address] Dr. Conor Chan Start: 06-09-2020 Total colonoscopy Willi daryl Nelson MD Work Phone: Start: 07-02-2019 Colonoscopy Darren hraris APRN.STAINLESS STEEL FINISHER Work Phone: Cardiac catheterization Will renetta Nelson MD Work Phone: Cholecystectomy Reilly miranda MD Work Phone: Plan of Treatment Date Care Activity Detail Author Start: 12-20-2026 PROSTATE CANCER SCREENING DISCUSSION PROSTATE CANCER SCREENING DISCUSSION [facility] Start: 06-27-2023 Influenza vaccination C [facility] Start: 05-13-2023 FUV, Provider: Reilly Nelson, Status: Pen, Time: 11:10 AM FUV, Provider: Reilly Nelson, Status: Pen, Time: 11:10 AM [facility] Work Phone: Start: 10-27-2022 DEPRESSION ASSESSMENT DEPRESSION ASS ESSMENT [facility] Start: 05-17-2022 COVID-19 VACCINE (6 - Pfizer series) COVID-19 VACCINE (6 - Pfizer series) [facility] Start: 05-15-2022 FUV, Provider: Reilly Nelson, Status: Pen, Time: 2:00 PM FUV, Provider: Reilly Nelson, Status: Pen, Time: 2:00 PM [facility] DO Work Phone: Start: 07-02-2020 Colonoscopy COLONOSCOPY [facility] Start: 07-02-2020 COLORECTAL CANCER SCREENING COLORECTAL CANCER SCREENING [facility] Start: 2016 Prostate Cancer Screening Discussion Prostate Cancer Screening Discussion [facility] Start: 2011 SHINGRIX VACCINE (1 of 2) SHINGRIX VACCINE (1 of 2) [facility] Start: 2006 COLOGUARD (FIT-DNA) COLOGUARD (FIT-D NA) [facility] Start: [address] COLONOGRAPHY [facility] Start: 2006 DIABETES SCREEN DIABETES SCREEN [facility] Start: 2006 Diabetes Screening Diabetes Screenin g [facility] Start: 2006 FECAL OCCULT BLOOD FECAL OCCULT BLOO D [facility] Start: 2006 SIGMOIDOSCOPY SIGMOIDOSCOPY [facility] Start: 1996 Lipid 1996 panel - S hayden or Plasma Lipid Screening [facility] Start: 1996 LIPID SCREEN LIPID SCREEN [facility] Start: 1980 Urine microalbumin profile [facility] Start: 1979 HEPATITIS C SCREENING HEPATITIS C SC REENING [facility] Start: 1979 HIV SCREENING HIV SCREENING [facility] End: 09-02-2024 Radex spine lumbosacral minimum 4 views XR LUMBAR MOTION 4V AP/LAT/ FLEX/EXT Radiology Routine Meralgia paresthetica of left side 1 Occurrences starting 2023 until 09/02/[address] [facility] Work Phone: Comment on above: 1 Occurrences starti ng 2023 until 09/02/2024 SPINE INTERVENTION PROCEDURE SPINE INTERVENTION PROCEDURE Procedures Routine Radiculopathy, lumbar region Lumbar disc herniation Ordered: 06/02/[address] [facility] Work Phone: Comment on above: Ordered: 06/02/2023 [facility] LIC[facility] Immunizations Immunization Date Immunization Notes Care Provider Deepa rehman 10-14-2022 Pfizer COVID-19 Vac Bivalent 30 MCG/0.3ML Intramuscular Suspension Avi Cervantes Work Phone: [facility] 250 DO Work Phone: 10-03-2022 influenza, injectabl e, quadrivalent, preservative free Avi M Hoy Work Phone: [facility] Work Phone: 10-03-2022 influenza virus vacc ine, unspecified formulation Darren Harris HOOP PUNCH AND COILER OPERATOR.STAINLESS STEEL FINISHER Work Phone: [facility] 03-22-2022 Comirnaty 30 MCG/0.3 ML Intramuscular Suspension Avi M Hoy Work Phone: [facility] DO Work Phone: 03-22-2022 Moderna COVID-19 Vac cine 100 MCG/0.5ML Intramuscular Suspension Avi M Hoy Work Phone: [facility] Comment on above: Series: 03-22-2022 zoster vaccine recombinant Avi M Hoy Work Phone: [facility] 250 DO Work Phone: 09-03-2021 Pfizer-BioNTech COVI D-19 Vacc 30 MCG/0.3ML Intramuscular Suspension Avi M Hoy Work Phone: [facility] 08-25-2021 influenza, injectabl e, quadrivalent, preservative free Avi M Hoy Work Phone: [facility] DO Work Phone: 08-25-2021 zoster vaccine recombinant Vai M Hoy Work Phone: [facility] 250 DO Work Phone: 02-13-2021 Pfizer-BioNTech COVI D-19 Vacc 30 MCG/0.3ML Intramuscular Suspension Avi M Hoy Work Phone: [facility] 01-13-2021 Pfizer-BioNTech COVI D-19 Vacc 30 MCG/0.3ML Intramuscular Suspension Avi M Hoy Work Phone: [facility] 12-23-2020 Pfizer-BioNTech COVI D-19 Vacc 30 MCG/0.3ML Intramuscular Suspension Avi M Hoy Work Phone: [facility] 08-28-2020 influenza, injectabl e, quadrivalent, preservative free Avi Cervantes Work Phone: -[facility] DO Work Phone: 08-28-2020 influenza virus vacc ine, unspecified formulation Juan R Bey MD Work Phone: [facility] Payers Date Payer Category Payer Self-pay [id number] [id number] 2021 Private Health Insurance [employer] A ETNA POS [id number] 2021-Present [phone] [address] [place] [address] POS [id number] 2021 Private Health Insurance [facility] [id number] 1960 Unknown [id number] 1960 Unknown [id number] 1960 Unknown [id number] 1960 Unknown [id number] 1960 Unknown [id number] 1961 Unknown [id number] 1960 Unknown [id number] 1959 Private Health Insurance [facility] [id number] 1958 Self-pay [id number] Unknown Unknown [facility] [id number] Unknown [id number] Social History Date Type Detail Facility Start: 06-02-2023 End: 08-01-2023 Consumes alcohol Consumes alcohol [facility] Comment on above: socially; occasional; Start: 09-28-2020 End: 06-02-2023 Tobacco smoking status NHIS Never smoked tobacco (finding) [facility] Start: 1960 Sex Assigned At Male [facility] Start: 1960 Sex Assigned At Not on file C [facility] Start: 06-02-2023 End: 08-01-2023 Gender identity Not on file [facility] Start: 06-02-2023 Tobacco use and exposure Smokeless tobacco non-user [facility] National Score (1-10 0), lower number is lower risk 61 [facility] Start: 07-28-2023 Gender identity Identifies as male gender (finding) [facility] Start: 07-28-2023 Sexual orientation Heterosexual (fin rajan) [facility] Clinical Notes 05-06-2023 to 06-11-2024 Juan [...] He had a cardiac catheterization performed in 2020 for abnormal stress test with reversible perfusion [...] without additional cardiac (more content not included)... [facility] 2023 Note HNO ID: [id number] Author: Juan R Bey MD Service: ? [...] issues. 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 Denies any [...] BICEPS TRICEPS DELTS Wrist Ext Wrist Flex Amphibian Crewmember HI R 5 5 5 5 5 [...] changes Xray (more content not included)... [facility] 2023 Note HNO ID: [id number] Author: Bossman Saunders Service: ? Author Type: [...] opioids Medications: See medication reconciliation list in [facility] MEDICATIONS: Gabapentin, Steens, Tylenol Have you ever seen a pain [...] or completing routine daily living activities? No [facility] 2023 History of Presen t illness [...] issues. 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 Author Type: Nurse Practitioner Type: Progress Notes Filed: 08/01/2023 1:30 PM Note Text: SPINE SURGERY ESTABLISHED VISIT This is a virtual visit using [employer] Video Visit. It required patient-provider interaction for the medical decision making as documented below. DATE OF SERVICE: 08/01/2023 DATE OF LAST VISIT: 06/02/2023 SUBJECTIVE: HPI:Kim Nichols is a 62 year old male presenting via virtual vist s/p Left L5 transforaminal epidural steroid injection on 07/01/[address] Camp. [place] great initially and for the first few [...] which included preparing to see the patient, [id number] patient care, completing clinical documentation, obtaining and/or reviewing separately obtained history, performing a medically appropriate examination, counseling and educating the patient/family/caregiver, independently interpreting results (not separately reported), and communicating results to the patient/family/caregiver. SIGNATURE: Darren Harris APRN.CNP PATIENT NAME: Kim Nichols DATE: August 01, 2023 TIME: 12:53 PM PAGER: [facility] 06-26-2023 Miscellaneous Notes Phoned patient and message left for Kim to confirm appointment for Kim Nichols for spine procedure on 07/01/2023. Patient notified that Jefferson Davis will call patient the night before with the time to arrive for injection. Patient verbalized understanding of the following: -Provided education on spine procedure and answered questions related to spine injection procedure. -Mechanical Design Technician is needed to drive patient home. -NPO [...] to report. Diabetic: No Patient given number [phone], spine injections schedulers, if there is any [...] POST INJECTION INSTRUCTIONS documented in this encounter [facility] 06-02-2023 Note HNO ID: [id number] Author: Darren Harris APRN.STAINLESS STEEL FINISHER Service: ? Author Type: Nurse Practitioner Type: [...] with him pain. He also is prescribed Steens for breakthrough pain which he only takes [...] Normal. DATA REVIE (more content not included)... [facility] 06-02-2023 History of Presen t illness Narrative [...] with him pain. He also is prescribed Steens for breakthrough pain which he only takes [...] which included preparing to see the patient, anca-rr-btas patient care, completing clinical documentation, obtaining and/or reviewing separately obtained history, performing a medically appropriate examination, counseling and educating the patient/family/caregiver, independently interpreting results (not separately reported), and communicating results to the patient/family/caregiver. SIGNATURE: Darren Harris APRN.CNP PATIENT NAME: Kim Nichols DATE: June 02, 2023 TIME: 1:57 PM PAGER: documented in this encounter [facility] 05-14-2023 Note HNO ID: [id number] Author: Ember Delatorre PA-C Service: ? Author Type: Physician Tub Tender Type: Progress Notes Filed: 05/14/2023 4:17 PM Note Text: Per Triage: Kim Nichols is a 62 year old male that requests evaluation of lumbar spine. Per review, they have symptoms of back and LLE pain. Positive for numbness. CMT: Medication: Gabapentin, Tylenol, Steens Studies (Reports unless indicated) MRI Lumbar: L4/5 moderate left foramen narrowing which may contribute to patient's symptoms 2. L5/S1 disc protrusion without significant canal or foramen narrowing. Disposition: Please schedule with surgical SANDY. Consider if injection is appropriate or on effective dose of Neurontin. Also see if symptoms correlate with imaging. [facility] 05-14-2023 History of Presen t illness Narrative Per Triage: Kim Nichols is a 62 year old male that requests evaluation of lumbar spine. Per review, they have symptoms of back and LLE pain. Positive for numbness. CMT: Medication: Gabapentin, Tylenol, Steens Studies (Reports unless indicated) MRI Lumbar: L4/5 [...] Health Provider or Pain Management Provider at [facility]? No If answer is YES please [...] facility where the MRI/CT/myelogram was completed: The [address] [address] MRI/CT/myelogram viewable in Epic: No If not, please provide [phone] to fax in imaging reports for review. [...] Additional Comments Hydrocodone documented in this encounter [facility] 05-06-2023 Note HNO ID: [id number] Author: Mauricio Kelley Service: ? Author Type: ? Type: Progress Notes Filed: 05/14/2023 4:17 PM Note Text: Patient name: Kim Nichols Are you being referred by a [facility] Spine Health Provider or Pain Management Provider at [facility]? No If answer is YES please [...] facility where the MRI/CT/myelogram was completed: The [place] [id number] MRI/CT/myelogram viewable in Epic: No If not, please provide [phone] to fax in imaging reports for review. [...] the surgery was completed: Additional Comments Hydrocodone [facility]: Evaluation note Diagnosis Radiculopathy, lumbar region- Primary Thoracic or lumbosacral neuritis or radiculitis, unspecified Lumbar disc herniation Displacement of lumbar intervertebral disc without myelopathy [facility] Lumbar radiculopathy- Primary Thoracic or lumbosacral neuritis or radiculitis, unspecified Displacement of lumbar intervertebral disc without myelopathy [facility] Meralgia paresthetica of left side- Primary Meralgia paresthetica Chronic midline low back pain without sciatica [facility] illness NarrativePatient returns in [...] their favorable impact on blood pressure andcholesterol.-[facility] 250 DO Work Phone: History [...] call if they arise or occur. -[facility] [employer] DO Work Phone: History of Present illness [...] to call if they arise or occur. [facility] Work Phone: Reason for referral (narrative)* Diagnostic Procedure Only (Routine) - Pending Review Specialty Diagnoses / Procedures Referred By Contac t Referred To Contact XR IMAGING Diagnoses Meralgia paresthetica of left side Procedures XR LUMBAR MOTION 4V AP/LAT/ FLEX/EXT RADEX SPINE LUMBOSACRAL MINIMUM 4 VIEWS Juan R Bey MD [address] [place] [address] [place] [id number] Referral ID Status Reason Start Date Expiration Date Visits Requested Visits Authorized [id number] Pending Review Auto-Generat ed Referral 2023 09/02/2024 1 1 [facility] Summary Purpose Family History No Family [...] Sister(V17.3, Z82.49) Status:Active Family history of diabetes zach ayoub: Sister(V18.0, Z83.3) Status:Active Advance Directives No Advanced [...] content) DATE CREATED AUTHOR 01/05/2022 [facility] DATE CREATED AUTHOR AUTHOR'S ORGANIZ ATION 07/28/2022 [facility] DATE CREATED AUTHOR AUTHOR'S ORGANIZ ATION 05/14/2023 [facility] DATE CREATED AUTHOR AUTHOR'S ORGANIZ ATION 05/14/2023 [employer] DATE CREATED AUTHOR AUTHOR'S ORGANIZ ATION 2023 [facility] DATE CREATED AUTHOR AUTHOR'S ORGANIZ ATION 08/05/2023 [facility] DATE CREATED AUTHOR AUTHOR'S ORGANIZ ATION 06/22/2024 [facility] EPIC DATE CREATED AUTHOR AUTHOR'S ORGANIZ ATION 06/24/2024 [facility] DATE CREATED AUTHOR AUTHOR'S ORGANIZ ATION 07/09/2024 [facility] Care Teams (unrecognized sec tion and content) Team Status: Inactive Member Role Status Dates Avi Cervantes MD Primary Care Provider Active Bijan Betts Jr, DO Attending Provider Active Team Status: Active Member Role Status Dates Avi Cervantes MD Primary Care Provider Active Dental Surgery Doctor Relationship Specialty Start Date End Date Avi Cervantes MD [address] [place] [id number] Referring Family Medicine 04/24/23 Dental Surgery Doctor Relationship Specialty Start Date End Date Avi Cervantes MD [address] [facility] [address] Referring Family Medicine 04/24/23 Dental Surgery Doctor Relationship Specialty Start Date End Date Avi Cervantes MD [address] [facility] [address] Referring Family Medicine 04/24/23 Dental Surgery Doctor Relationship Specialty Start Date End Date Avi Cervantes MD [address] [facility] [address] PCP - General Family Medicine 06/25/23 Avi Cervantes MD [address] [facility] [address] Referring Family Medicine 04/24/23 Dental Surgery Doctor Relationship Specialty Start Date End Date Avi Cervantes MD [address] [facility] [place] [address] PCP - General Family Medicine 06/25/23 Avi Cervantes MD [address] [facility] [address] Referring Family Medicine 04/24/23 Dental Surgery Doctor Relationship Specialty Start Date End Date Avi Cervantes MD [address] [facility] [address] PCP - General Family Medicine 06/25/23 Avi Cervantes MD [address] [place] [address] Referring Family Medicine 04/24/23 Goals (unrecognized section [...] or prosecute any alcohol or drug abuse patient.[facility] the event this information is protected by the Federal Confidentiality of Alcohol and Drug Abuse Patient Records regulations: The Federal rules restrict any use of the information to criminally investigate or prosecute any alcohol or drug abuse patient.[facility] the event this information is protected by the Federal Confidentiality of Alcohol and Drug Abuse Patient Records regulations: The Federal rules restrict any use of the information to criminally investigate or prosecute any alcohol or drug abuse patient.[facility] the event this information is protected by the Federal Confidentiality of Alcohol and Drug Abuse Patient Records regulations: The Federal rules restrict any use of the information to criminally investigate or prosecute any alcohol or drug abuse patient.[facility] the event this information is protected by the Federal Confidentiality of Alcohol and Drug Abuse Patient Records regulations: The Federal rules restrict any use of the information to criminally investigate or prosecute any alcohol or drug abuse patient.[facility] the event this information is protected by the Federal Confidentiality of Alcohol and Drug Abuse Patient Records regulations: The Federal rules restrict any use of the information to criminally investigate or prosecute any alcohol or drug abuse patient.[facility] Reason for Visit (unrecogniz ed section [...] BE BASED ON THE PRIMARY CLINICAL RECORDS. [facility] [employer] [facility]. provides no warranty or guarantee of the accuracy or completeness of information in this document.
[2024-07-09 12:57] LABS: Basophils Percent Auto 0.5 % (0.2-2.0); Eosinophils Absolute Auto 0.2 10^3/uL (0.0-0.7); Hematocrit 46.2 % (42.0-54.0); Hemoglobin 15.6 g/dL (14.0-18.0); Immature Granulocytes Abs Auto 0.03 10^3/uL (0.00-0.03); Immature Granulocytes Pct Auto 0.5 % (0.0-0.5); Lymphocytes Absolute Auto 1.4 10^3/uL (1.2-3.8); Lymphocytes Percent Auto 22.3 % (20.5-60.0); Mean Corpuscular HGB Conc 33.8 g/dL (29.9-35.2); Mean Corpuscular Hemoglobin 28.9 pg (25.9-34.0); Mean Corpuscular Volume 85.7 fL (80.0-94.0); Mean Platelet Volume 10.5 fL (9.5-13.5); Monocytes Absolute Auto 0.7 10^3/uL (0.3-0.8); Monocytes Percent Auto 11.6 % (1.7-12.0); Neutrophils Percent Auto 62.1 % (43.0-75.0); Platelet Count 246 10^3/uL (150-450); Red Blood Count 5.39 10^6/uL (4.70-6.10); Red Cell Distribution Width 13.9 % (11.0-15.0); White Blood Count 6.4 10^3/uL (4.0-11.0)
== END 2024-07-09 12:24 | disposition home or self-care (01) ==
LOC: LAB 12:25
PROVIDERS: PCP Family Medicine; Visit Provider Personal Emergency Response Attendant
DX: Z01.818 Encounter for other preprocedural examination (principal)
CPT/HCPCS: 36415; 85025

== ENCOUNTER 2024-08-17 13:12 | Outpatient (OUT) | payer OTHER, SELFPAY ==
--- OUTSIDE RECORDS SUMMARY | 2024-08-17 13:28 | XMS_ITS | CCD ---
Author Organization [facility] Care Team Providers Care Shed Boss Name Role Phone Unavailable Unavailable DR AVI CERVANTES Attending Unavailable MARLENI, DR CÁRDENAS Admitting Unavailable MARLENI, DR CÁRDENAS Attending Unavailable MARLENI, DR CÁRDENAS Admitting Unavailable MARLENI, DR CÁRDENAS Consulting Unavailable WEST, DR OSCAR Ingram Consulting Unavailable Avi Cervantes Unavailable MD Avi Cervantes Primary Care Provider [phone] DO Bijan Betts Jr Attending Provider Bijan Betts Jr Attending Unavailable Bijan Betts Jr Admitting Unavailable Avi Cervantes Primary Care Unavailable Leslie DAVALOS, Dr. Reilly Hernandez Referring Unavailable Leslie DAVALOS, Dr. Reilly Hernandez Attending Unavailable Dr. Avi Cervantes Primary Care Unavail able Avi Cervantes MD Unavailable Avi Cervantes MD Primary Care Provider [phone] DARREN HARRIS Attending Unavailable AVI CERVANTES Primary Care Unavailable DARREN HARRIS Attending Unavailable NIKOLAY CAMP Admitting Unavailable NIKOLAY CAMP Attending Unavailable NIKOLAY CAMP Referring Unavailable JUICE BEYAL CHINA Attending Unavailable AVI CERVANTES Primary Care Unavailable RICHARD BENITEZ Attending Unavailable JR. THOMAS GEORGE C Attending Unavailfarhad THOMAS JR., GEORGE C Referring Unavaila amy THOMAS JR., GEORGE C Attending Unavaila CAR Mack Attending Unavailable MARIA E LEDBETTER Attending Unavailable CAR CUELLAR Referring Unavailable Avi Cervantes Primary Care Physician Rell ADAMSON Attending Unavailable Avi Cervantes MD Primary Care Provider [phone] Allergies Allergy Classification Reported Allergen(s) Allergy Type Date of Onset Reaction(s) Facility (18 sources) Amoxicillin; Translations: [amoxicillin] Drug Allergy 0 Hives, Rash [facility] (1 source) Amoxicillin Drug Allergy [facility] (1 source) traMADol Drug Allergy [facility] (1 source) Amoxicillin Drug Allergy 0 [facility] Repository (5 sources) traMADol; Translations: [TRAMADOL] Drug Allergy 4 Unknown [facility] Repository (2 sources) Penicillin; Translations: [penicillin] Drug Allergy Weal (disorder) [facility] [place] Medications Current Medications Medication Drug Class(es) Dates Sig (Normalized) Sig (Original) acetaminophen 325 mg / HYDROcodone bitartrate 5 mg oral tablet (10 sources) Opioid Agonist Start: 07-28-2024 End: 07-31-2024 take 1 tablet by mouth every six hours for pain HYDROcodone-aceta minophen ([place]) 5-325 MG tablet Indications: Post-op pain Take 1 tablet by mouth every 6 (six) hours if needed for severe pain for up to 3 days 12 tablet 07/28/2024 07/31/2024 Active Start: 07-08-2024 take 1 tablet by zainab th twice daily as needed for pain [place] 325 mg-5 mg oral tablet 1 tab(s), Oral, BID as needed for pain, Refill(s) 0 Start Date: 07/08/24 Status: Ordered Start: 05-02-2023 take 1 tablet by zainab th every six hours as needed HYDROcodone-acetaminophen (NORCO) 5-325 mg per tablet Take 1 tablet by mouth every 6 hours as needed. 0 05/02/2023 Active Start: 09-26-2020 take 1 tablet by zainab th every six hours Hydrocodone-Acetaminophen Active 1 TAB PO Q6H September 26, 2020 1:00am [place] 5-325 MG T ABS TAKE 1 TABLET EVERY 4 TO 6 HOURS NEEDED. Quantity: 0 Refills: 0 Ordered: 13-May-2023 DO Active Comment on above: Take 1 tablet by zainab th every 6 hours as needed. apixaban 5 mg oral tablet (5 sources) Factor Xa Inhibitor Start: 07-13-2024 Eliquis 5 MG tablet 5 mg 05/08/2024 Active ascorbic acid 1000 mg oral tablet (1 source) Vitamin C Start: 09-26-2020 take 1 g by mouth once daily Ascorbic Acid (Vitamin C) (Vitamin C) 1,000 mg Tablet Active 1 GM PO Daily September 26, 2020 1:00am aspirin 81 mg delayed release oral tablet (15 sources) Platelet Aggregation Inhibitor, Nonsteroidal Anti-inflammatory Drug Start: 07-08-2024 take 1 tablet by mouth once daily aspirin 81 mg Oral EC Tab 81 mg = 1 tab(s), Oral, Daily, Refills(s) 0 Start Date: 07/08/24 Status: Ordered Start: 09-26-2020 take 81 mg by mouth once daily Aspirin Active 81 MG PO Daily September 26, 2020 1:00am aspirin (Vazalor e) 81 MG capsule Take by mouth Active Comment on above: Take by mouth. atorvastatin 40 mg oral tablet (1 source) HMG-CoA Reductase Inhibitor Start: take 40 mg by mouth once daily Atorvastatin Active 40 MG PO Daily September 26, 2020 1:00am carvedilol 6.25 mg oral tablet (1 source) alpha-Adrenergic Pina, beta-Adrenergic Pina Start: take 6.25 mg by mouth twice daily Carvedilol Active 6.25 MG PO Twice daily September 26, 2020 1:00am chlorthalidone 25 mg oral tablet (15 sources) Thiazide-like Diuretic Start: take 1 tablet by mouth once daily chlorthalidone 25 mg Tab 25 mg = 1 tab(s), Oral, Daily, Refills(s) 0 Start Date: 07/08/24 Status: Ordered Comment on above: TAKE 1 TABLET BY ZAINAB TH EVERY DAY IN THE MORNING WITH FOOD FOR 90 DAYS diclofenac 35 mg oral capsule (4 sources) Nonsteroidal Anti-inflammatory Drug Diclofenac 35 MG capsule Active fexofenadine hydrochloride 180 mg oral tablet (1 source) Histamine-1 Receptor Antagonist Start: take 180 mg by mouth once daily Fexofenadine Active 180 MG PO Daily September 26, 2020 1:00am fluocinonide 0.5 mg/ml topical cream (1 source) Corticosteroid Start: Fluocinonide Active 1 APPLIC TOPICAL Daily September 26, 2020 1:00am gabapentin 300 mg oral capsule (12 sources) Anti-epileptic Agent Start: 023 take 1 capsule by mouth in the morning gabapentin (Neurontin) 300 MG capsule Take 300 mg by mouth in the morning and 300 mg in the evening. 05/27/2023 Active Start: 05-27-2023 take 1 capsule by mo [facility] twice daily gabapentin (NEURONTIN) 300 mg capsule Take 300 mg by mouth twice daily. 0 05/27/2023 Active take 1 capsule by mo [facility] twice daily Gabapentin 300 MG Oral Capsule TAKE 1 CAPSULE TWICE DAILY. Quantity: 0 Refills: 0 Ordered: 13-May-2023 DO Active Comment on above: Take 300 mg by mouth twice daily. metoprolol tartrate 25 mg oral tablet (5 sources) beta-Adrenergic Pina Start: 4 metoprolol tartrate (Lopressor) 25 MG tablet 05/08/2024 Active Multivitamin preparation (1 source) Start: 0 take 1 tablet by mouth once daily in the morning Multivitamin Active 1 TAB PO Every morning September 26, 2020 1:00am omeprazole 40 mg delayed release oral capsule (11 sources) Proton Pump Inhibitor Start: 4 take 1 capsule by mouth once daily omeprazole 40 mg Cap-DR 40 mg = 1 cap(s), Oral, Daily, Refills(s) 0 Start Date: 07/20/24 Status: Ordered Start: 09-26-2020 omeprazole (MD ILOSEC) 40 mg capsule pantoprazole 40 mg delayed release oral tablet (4 sources) Proton Pump Inhibitor take 1 tablet by mouth before mealtime pantoprazole (ProtoNix) 40 MG EC tablet Take 40 mg by mouth in the morning. Take before meals. Do not crush, chew, or split.. Active potassium chloride 20 meq extended release oral tablet (5 sources) Start: potassium chloride CR (K-Tab) 20 MEQ ER tablet 05/08/2024 Active rosuvastatin calcium 20 mg oral tablet (14 sources) HMG-CoA Reductase Inhibitor Start: take 1 tablet by mouth once daily rosuvastatin 20 mg Tab 20 mg = 1 tab(s), Oral, Daily, Refills(s) 0 Start Date: 07/08/24 Status: Ordered sildenafil 50 mg oral tablet (4 sources) Phosphodiesterase 5 Inhibitor Start: End: 10-21-2 024 take 1 tablet by mouth once daily sildenafil (Viagra) 50 MG tablet take 1 tablet by mouth once daily if needed for 10 days 07/14/2023 08/16/2024 Discontinued sucralfate 1000 mg oral tablet (4 sources) Aluminum Complex sucralfate (Carafate) 1 g tablet Take by mouth 4 (four) times a day before meals Active Completed/Discontinued Medications Medication Drug Class(es) Dates Sig (Normalized) Sig (Original) betamethasone 0.5 mg/ml / clotrimazole 10 mg/ml topical cream (5 sources) Azole Antifungal, Corticosteroid Start: 05-13-2023 clotrimazole-bet amethasone (LOTRISONE) cream APPLY TO BOTH FEET TWICE A DAY 0 05/13/2023 Active Comment on above: APPLY TO BOTH FEET T WICE A DAY famotidine 40 mg oral tablet (4 sources) Histamine-2 Receptor Antagonist take 1 tablet by mouth at bedtime Famotidine 40 MG Oral Tablet TAKE 1 TABLET AT BEDTIME. Quantity: 30 Refills: 1 Ordered: 07-May-2022 DO Active Problems Active Problems Problem Classification Problem Date Documented Date Episodic/Chronic Cardiac dysrhythmias (3 sources) Unspecified atrial fibrillation; Translations: [Atrial fibrillation] Onset: 05-07-2024 Chronic Coronary atherosclerosis and other heart disease (5 sources) Coronary arteriosclerosis; Translations: [Coronary atherosclerosis of unspecified type of vessel, [place] or graft] 07-08-2024 Chronic Diabetes mellitus without complication (1 source) Other abnormal glucose; Translations: [OTHER ABNORMAL GLUCOSE] Onset: 12-21-2021 Episodic Disorders of lipid metabolism (6 sources) Hyperlipidemia; Translations: [Other and unspecified hyperlipidemia] Onset: 05-28-2024 07-08-2024 Chronic Diverticulosis and diverticulitis (1 source) Diverticular disease 07-08-2024 Chronic Esophageal disorders (7 sources) Gastroesophageal reflux disease; Translations: [Esophageal reflux] Onset: 07-20-2024 Chronic Essential hypertension (5 sources) Benign essential hypertension; Translations: [Benign essential hypertension] 07-08-2024 Chronic Headache; including migraine (1 source) Migraine 07-08-2024 Chronic Immunizations and screening for infectious disease (8 sources) Patient encounter status; Translations: [Other specified vaccination] Onset: 07-19-2024 07-19-2024 Episodic Joint disorders and dislocations; trauma-related (4 sources) Derangement of left knee; Translations: [Unspecified internal derangement of left knee] Onset: 07-19-2024 07-19-2024 Chronic Nonspecific chest pain (2 sources) Chest pain; Translations: [Chest pain, unspecified] Onset: 07-20-2024 Episodic Other male genital disorders (1 source) Impotence 07-08-2024 Chronic Other nervous system disorders (1 source) Meralgia paresthetica of left leg; Translations: [Meralgia paresthetica, left lower limb] 2023 Chronic Other nervous system disorders (1 source) Meralgia paresthetica, left lower limb; Translations: [Meralgia paresthetica of left side] Onset: 2023 Chronic Other nervous system disorders (1 source) Other chronic pain; Translations: [Chronic midline low back pain without sciatica] Onset: 2023 Chronic Other nervous system disorders (1 source) Postoperative pain ; Translations: [Other acute postprocedural pain] 07-28-2024 Episodic Other nutritional; endocrine; and metabolic disorders (4 sources) Obesity; Translations: [Obesity, unspecified] Chronic Other nutritional; endocrine; and metabolic disorders (1 source) Body mass index 30+ - obesity 07-20-2024 Chronic Other nutritional; endocrine; and metabolic disorders (1 source) Obese class III 07-08-2024 Chronic Other screening for suspected conditions (not mental disorders or infectious disease) (1 source) Encounter for screening for malignant neoplasm of prostate; Translations: [ENC SCREEN MALIG NEOPLASM PROSTATE] Onset: 12-21-2021 Episodic Residual codes; unclassified (2 sources) Family history of polyp of colon; Translations: [Family history of colon polyps, unspecified] Onset: 07-20-2024 Episodic Residual codes; unclassified (2 sources) History of arthroscopy of knee joint; Translations: [Other specified postprocedural states] 08-16-2024 Episodic Spondylosis; intervertebral disc disorders; other back problems (6 sources) Prolapsed lumbar intervertebral disc; Translations: [Other intervertebral disc displacement, lumbar region] Onset: 06-02-2023 06-02-2023 Chronic Spondylosis; intervertebral disc disorders; other back problems (9 sources) Lumbar radiculopathy; Translations: [Radiculopathy, lumbar region] [...] Test Name Value Interpretation Reference Range Facility Ambulatory Visit Summaryon 0 07-20-2024 Ambulatory Visit Summary Ambulatory Visit Summary KIM NICHOLS :1960 Visit Date:07/20/2024 Ambulatory Visit Instructions Your Diagnosis Gastroesophageal reflux disease, Chest pain due to GERD Family history of colonic polyps Chest pain, unspecified Your Care Team Attending Physician - SNOW LANDA, Rell Marr Primary Care Physician - Marleni LANDA, Avi This Is Your Medications List Contact prescribing physician if questions or concerns acetaminophen-hydroco done ([place] 325 mg-5 mg oral tablet) apixaban (Eliquis 5 mg oral tablet) aspirin (aspirin 81 mg Oral EC Tab) chlorthalidone (chlorthalidone 25 mg Tab) gabapentin (gabapentin 300 mg Cap) metoprolol (Metoprolol tartrate 25 mg Tab) omeprazole (omeprazole 40 mg Cap-DR) potassium chloride (potassium chloride 20 mEq ER Tab) rosuvastatin (rosuvastatin 20 mg Tab) Procedures Performed Colonoscopy (07/02/2019), Cardiac catheterization, Cholecystectomy, Nasal septoplasty. Discharge Vitals Heart Rate (Peripheral) 72 Respiratory Rate 16 Blood Pressure 116/78 Height 177.8 cm Height 70 in Weight 122.7 kg Weight 269.94 lb BMI 38.81 Medications What How Much When Instructions Unchanged acetaminophen-hydroco done ([place] 325 mg-5 mg oral tablet) 1 Tablets By Mouth 2 times a day as needed for as needed for pain Contact prescribing physician if questions or concerns Unchanged apixaban (Eliquis 5 mg oral tablet) 1 Tablets By Mouth 2 times a day Contact prescribing physician if questions or concerns Unchanged aspirin (aspirin 81 mg Oral EC Tab) 1 Tablets By Mouth Every day Contact prescribing physician if questions or concerns Unchanged chlorthalidone (chlorthalidone 25 mg Tab) 1 Tablets By Mouth Every day Contact prescribing physician if questions or concerns Unchanged gabapentin (gabapentin 300 mg Cap) 1 Capsules By Mouth 3 times a day Contact prescribing physician if questions or concerns Unchanged metoprolol (Metoprolol tartrate 25 mg Tab) 1 Tablets By Mouth 2 times a day Contact prescribing physician if questions or concerns Unchanged omeprazole (omeprazole 40 mg Cap-DR) 1 Capsules By Mouth Every day Contact prescribing physician if questions or concerns Unchanged potassium chloride (potassium chloride 20 mEq ER Tab) 1 Tablets By Mouth 2 times a day Contact prescribing physician if questions or concerns Unchanged rosuvastatin (rosuvastatin 20 mg Tab) 1 Tablets By Mouth Every day Contact prescribing physician if questions or concerns Allergies penicillin (Hives) Problems Ongoing - Any problem that you are currently receiving treatment for. Atrial fibrillation Benign essential hypertension BMI 38.0-38.9,adult Chest pain due to GERD Chronic low back pain Class 3 obesity Coronary arteriosclerosis Diverticulosis Erectile dysfunction Family history of colonic polyps Gastroesophageal reflux disease Hyperlipidemia Lumbar radiculopathy Migraine Patient Survey You may receive a survey via text or e-mail asking about your office visit. Please share your experience with us by completing your survey. We appreciate your feedback and thank you for choosing us for your care. [facility] Office Visiton 06-11-2024 Follow-up visit [id number] Kim Nichols 1960 M Date Provider Department Center 06/11/2024 3848-RICHARD BENITEZ RAVIN [facility] Family History Problem Relation Age of Onset Brain Aneurysm Mother Stroke Father Heart attack Sister Family Status - Relation Status Age at Mother Father Sister Level of Service:99082 MD OFFICE/OUTPATIENT NEW MODERATE MDM 45 MINUTES Reason for Visit and Comments: New Patient [Other] - CHEST PAIN/AFIB Normal [facility] CNOVon 2023 CNOV Office Visit (SPSLUH ) KIM NICHOLS ([id number]) 1960 M Date Time Provider Department 08/04/23 8:00 AM JUAN R BEY During your visit today, we recorded the [...] opioids Medications: See medication reconciliation list in [facility] MEDICATIONS: Gabapentin, [place], Tylenol Have you ever [...] completing routine daily living activities? No Bossman Paul Juan R Teresa MD 2023 9:14 AM Signed SPINE SURGERY [...] issues. 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 [facility] 07-08-2023 [facility] Telephone (SPNMMN) KIM NICHOLS ([id number]) 1960 M Date Time Provider Department 07/08/23 NIKOLAY CAMP SPWVMN During your visit today, we recorded the following information about you: Stacy Gallagher RN 07/08/2023 12:56 PM Signed Post Spine Injection phone call: [phone] on 07/08/23 Patient denies fever, chills, new [...] appointment 2-4 weeks post procedure by calling [phone] Patient does not have any questions or [...] Status:Closed by STACY GALLAGHER on 07/08/23 Normal [facility] HISTORY PHYSICALon HISTORY PHYSICAL HNO ID: [id number] Author: Sherice Galvin APRN.CATEGORY SPECIALIST Service: ? Author Type: Nurse Practitioner Type: [...] July 01, 2023 TIME: 9:04 AM Normal [facility] OPERATIVE NOon 07-01-2023 OPERATIVE NO HNO ID: [id number] Author: Nikolay Camp DO Service: Physical Medicine AND Rehabilitation Author Type: Physician Type: Operative Report Filed: 07/01/2023 9:40 AM Note Text: PROCEDURE REPORT Surgery/Procedure Date: July 01, 2023 Interventionalist: Nikolay Camp DO Procedure(s): Left L5 transforaminal epidural steroid injection Pre-Op/Pre-Procedure Diagnosis: Lumbar radiculopathy Post-Op Diagnosis: same SUBJECTIVE: Kim Nichols is a 62 year old male, who presents to the [facility] for a left L5 transforaminal epidural steroid injection. This is his first (1) procedure. 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 Pain is central [...] home in stable condition. DO Fátima Castrejon [facility] 06-26-2023 [facility] Telephone (SPWVMN) JESSIKIM ([id number]) 1960 M Date Time Provider Department 06/26/23 NIKOLAY CAMP [facility] During your visit today, we recorded the following information about you: Oscar Rollins LPN 06/26/2023 9:20 AM Signed Phoned patient and message left for Kim to confirm appointment for Kim Nichols for spine procedure on 07/01/2023. Patient notified that [place] will call patient the night before with the time to arrive for injection. Patient verbalized understanding of the following: -Provided education on spine procedure and answered questions related to spine injection procedure. -Kindergartners Helper is needed to drive patient home. -NPO [...] to report. Diabetic: No Patient given number [phone], spine injections schedulers, if there is any [...] Encounter Status:Closed by OSCAR ROLLINS on 06/26/23 [facility] [place] 06-02-2023 CNOV Office Visit (SPNSMN ) KIM NICHOLS ([id number]) 1960 M Date Time Provider Department 06/02/23 1:40 PM DARREN HARRIS During your visit today, we recorded the following information about you: Pulse Respiration Blood pressure Weight 63/minute 18/minute 128/84 117 kg Height 1.829 m Darren Harris APRN.CATEGORY SPECIALIST 06/03/2023 1:01 PM Signed SPINE SURGERY OUTPATIENT [...] well de (more content not included)... Normal [facility] Office Visit (Cardiology)on 05-13-2023 Follow-up visit Diagnoses/Problems Assessed Coronary disease (414.00) (I25.10) Essential hypertension, benign (401.1) (I10) Hyperlipidemia (272.4) (E78.5) Class 2 obesity with body mass index (BMI) of 36.0 to 36.9 in adult (278.00,V85.36) (E66.9,Z68.36) Never a smoker Orders Class 2 obesity with body mass index (BMI) of 36.0 to 36.9 in adult Healthy Weight Tips; Status:Complete - Retrospective Authorization; Done: [id number] Some eating tips that can help you lose weight.; Status:Complete - Retrospective Authorization; Done: [id number] Coronary disease, Hyperlipidemia Renew: Aspirin EC Low Dose 81 MG Oral Tablet Delayed Release; TAKE 1 TABLET DAILY DIRECTED Hyperlipidemia Renew: Rosuvastatin Calcium 20 MG Oral Tablet; take 1 tablet by mouth at bedtime SocHx: Never a smoker Tobacco Use Screening; Status:Complete; Done: [id number] Patient Instructions Please bring all medicines, vitamins, [...] negative for complaint. Vitals Vital Signs Recorded: [id number] 11:22AM Heart Rate64, R Radial Vdciualk827, RUE, Sitting Cedqullyd05, RUE, Sitting Height6 ft Cdzmrb862 lb BMI Igeldcfweg50.21 kg/m2 BSA Calculated2.41 Tobacco Useb) No PHQ-2 [...] Screening.on 023 Adult depression screening assessment No [facility] 250 DO Work Phone: Tobacco use status [facility]PH[facility] b) No [facility] 250 DO Work Phone: XR knee LT 4V*on 07-17-2022 XR knee LT 4V* [facility] Main [place] [address] [place] [id number] XRay Report Signed Patient: Kim Nichols MR#: [id number] : 1960 Acct:[id number] Age/Sex: 61 / M ADM Date: 07/17/22 Loc: [place] Room: Type: [facility] Attending Dr: Bijan Betts Jr, DO [...] M.D.07/17/2022 1:18 PM Dictation Location: [place] [address] Transcribed By: [facility] 07/17/22 1318 Dictated By: Stacy Ellis MD 07/17/22 1315 Signed By: 07/17/22 1318 [facility] Tobacco Screening.on 022 Adult depression screening assessment No [facility] 250 DO Work Phone: Fall risk assessment c) Not medically indicated [facility] 250 DO Work Phone: Tobacco use status [facility] b) [facility] Work Phone: H PYLORI ANTIBODY IGGon 11-28 H. PYLORI IGG ABS 0.45 Index Value Normal 0.00-0.79 T [facility] Comment on above: Result Comment: Nega tive <0.80 Equivocal 0.80 - 0.89 Positive >0.89 Performed By: #### L IPID, TSH, T7, URIC, CMP #### [facility] [address] [place] [address] Dr. Conor Chan INSULINon 12-21-2021 Insulin 55.2 uIU/mL Critically high 2.6-24.9 [facility] Comment on above: Performed By: #### I NSULIN #### [facility] [address] [place] [address] Dr. Conor Chan TESTOSTERONE, TOTALon 2021 Testosterone [Mass/Vol] 380 ng/dL Normal 264-916 [facility] Comment on above: Result Comment: Adul t male reference interval is based on a population of healthy nonobese males (BMI <30) between 19 and 39 years old. Travon, et.al. JCEM 2017,102;4163-5058. PMID: [id number]. Performed By: #### L IPID, TSH, T7, URIC, CMP #### [facility] [address] [place] [address] Dr. Conor Chan CBC AUTO DIFFon 12-20-2021 BASO # 0.0 103/ul Normal 0.0-0.1 [facility] Comment on above: Performed By: #### C BC #### [facility] [address] [place] [address] Dr. Conor Chan Basophils/100 WBC (Bld) 0.5 % Normal 0.2-2.0 [facility] Comment on above: Performed By: #### C BC #### [facility] [address] [place] [address] Dr. Conor Chan EO # 0.2 103/ul Normal 0.0-0.7 [facility] Comment on above: Performed By: #### C BC #### [facility] [address] [place] [address] Dr. Conor Chan Eosinophils/100 WBC (Bld) 3.5 % Normal 0.9-7.0 [facility] Comment on above: Performed By: #### C BC #### [facility] [address] [place] [address] Dr. Conor Chan Erythrocyte distribution width (RBC) [Ratio] 13.8 % Normal 11.0-15.0 [facility] Comment on above: Performed By: #### C BC #### [facility] [address] [place] [address] Dr. Conor Chan Hematocrit (Bld) [Volume fraction] 48.5 % Normal 42.0-54.0 [facility] Comment on above: Performed By: #### C BC #### [facility] [address] [place] [address] Dr. Conor Chan Hemoglobin (Bld) [Mass/Vol] 16.3 g/dL Normal 14.0-18.0 [facility] Comment on above: Performed By: #### C BC #### [facility] [address] [place] [address] Dr. Conor Chan IG # 0.02 10e3/ul Normal 0.00-0.03 [facility] [facility] Comment on above: Performed By: #### C BC #### [facility] [address] [place] [address] Dr. Conor Chan IG % 0.3 % Normal 0.0-0.5 [facility] Comment on above: Performed By: #### C BC #### [facility] [address] [place] [address] Dr. Conor Chan LYMPH # 1.4 103/ul Normal 1.2-3.8 [facility] Comment on above: Performed By: #### C BC #### [facility] [address] [place] [address] Dr. Conor Chan Lymphocytes/100 WBC (Bld) 21.7 % Normal 20.5-60.0 [facility] Comment on above: Performed By: #### C BC #### [facility] [address] [place] [address] Dr. Conor Chan MANUAL DIFF REQ NO Normal [facility] Comment on above: Performed By: #### C BC #### [facility] [address] [place] [address] Dr. Conor Chan MCH (RBC) [Entitic mass] 28.5 pg Normal 25.9-34.0 [facility] Comment on above: Performed By: #### C BC #### [facility] [address] [place] [address] Dr. Conor Chan MCHC (RBC) [Mass/Vol] 33.6 g/dL Normal 29.9-35.2 [facility] Comment on above: Performed By: #### C BC #### [facility] [address] [place] [address] Dr. Conor Chan MCV (RBC) [Entitic vol] 84.9 fL Normal 80.0-94.0 [facility] Comment on above: Performed By: #### C BC #### [facility] [address] [place] [address] Dr. Conor Chan MONO # 0.6 103/ul Normal 0.3-0.8 [facility] Comment on above: Performed By: #### C BC #### [facility] [address] [place] [address] Dr. Conor Chan Monocytes/100 WBC (Bld) 9.3 % Normal 1.7-12.0 [facility] Comment on above: Performed By: #### C BC #### [facility] [address] [place] [address] Dr. Conor Chan NEUT # 4.1 103/ul Normal 1.4-6.5 [facility] Comment on above: Performed By: #### C BC #### [facility] [address] [place] [address] Dr. Conor Chan Neutrophils/100 WBC (Bld) 64.7 % Normal 43.0-75.0 [facility] Comment on above: Performed By: #### C BC #### [facility] [address] [address] [address] Conor Chan Platelet mean volume (Bld) [Entitic vol] 9.8 fL Normal 9.5-13.5 [facility] Comment on above: Performed By: #### C BC #### [facility] [address] [place] [address] Dr. Conor Chan PLT 235 103/ul Normal 150-450 [facility] Comment on above: Performed By: #### C BC #### [facility] [address] [address] [address] Conor Chan RBC 5.71 106/ul Normal 4.70-6.10 [facility] Comment on above: Performed By: #### C BC #### [facility] [address] [place] [address] Dr. Conor Chan WBC 6.4 103/ul Normal 4.0-11.0 [facility] Comment on above: Performed By: #### C BC #### [facility] [address] [place] [address] Dr. Conor Chan FREE THYROXINE INDEX T7on FTI 2.89 Normal [facility] Comment on above: Performed By: #### L IPID, TSH, T7, URIC, CMP #### [facility] [address] [place] [address] Dr. Conor Chan T3U 34.0 % Normal 23.5-40.5 [facility] Comment on above: Performed By: #### L IPID, TSH, T7, URIC, CMP #### [facility] [address] [place] [address] Dr. Conor Chan T4 [Mass/Vol] 8.50 ug/dL Normal 5.53-11.00 [facility] Comment on above: Performed By: #### L IPID, TSH, T7, URIC, CMP #### [facility] [address] [place] [address] Dr. Conor Chan GLYCOHEMOGLOBIN A1Con 2021 ADA RECOMMENDATION ADA THERAPEUTIC TARGET 6.0 - 7.0 ACTION SUGGESTED > 7.0 Normal [facility] Comment on above: Performed By: #### A 1C #### [facility] [address] [place] [address] Dr. Conor Chan Glucose [Mass/Vol] 126 mg/dL Normal [facility] Comment on above: Performed By: #### A 1C #### [facility] [address] [place] [address] Dr. Conor Chan HbA1c (Bld) [Mass fraction] 6.0 % Normal <=6.0 [facility] Comment on above: Performed By: #### A 1C #### [facility] [address] [place] [address] Dr. Conor Chan LIPID PROFILEon 12-20-2021 CHOL-HDL RATIO NORM SEE BELOW Normal [facility] Comment on above: Result Comment: 3.3 - 4.4 LOW RISK 4.4 - 7.1 AVERAGE RISK 7.1 - 11.0 MODERATE RISK >11.0 HIGH RISK Performed By: #### L IPID, TSH, T7, URIC, CMP #### [facility] [address] [place] [address] Dr. Conor Chan Cholesterol [Mass/Vol] 161 mg/dL Normal <=200 [facility] Comment on above: Performed By: #### L IPID, TSH, T7, URIC, CMP #### [facility] [address] [place] [address] Dr. Conor Chan Cholesterol in HDL [Mass/Vol] 50 mg/dL Normal [facility] Comment on above: Performed By: #### L IPID, TSH, T7, URIC, CMP #### [facility] [address] [place] [address] Dr. Conor Chan Cholesterol in LDL [Mass/Vol] 96.0 mg/dL Normal [facility] Comment on above: Performed By: #### L IPID, TSH, T7, URIC, CMP #### [facility] [address] [place] [address] Dr. Conor Chan Cholesterol.total/Ch olesterol in HDL [Mass ratio] 3.2 {ratio} Normal [facility] Comment on above: Performed By: #### L IPID, TSH, T7, URIC, CMP #### [facility] [address] [address] [address] Conor Chan HDL NORMAL > or = 60 mg/dl - LO W CARDIOVASCULAR RISK <40 mg/dl - HIGH CARDIOVASCULAR RISK Normal [facility] Comment on above: Performed By: #### L IPID, TSH, T7, URIC, CMP #### [facility] [address] [address] [address] Conor Chan LDL CALC NORMAL SEE BELOW Normal [facility] Comment on above: Result Comment: <100 mg/dl OPTIMAL 100 - 129 mg/dl NEAR OR ABOVE OPTIMAL 130 - 159 mg/dl BORDERLINE HIGH 160 - 189 mg/dl HIGH >190 mg/dl VERY HIGH Performed By: #### L IPID, TSH, T7, URIC, CMP #### [facility] [address] [address] [address] Conor Chan Triglyceride [Mass/Vol] 75 mg/dL Normal <=150 [facility] Comment on above: Performed By: #### L IPID, TSH, T7, URIC, CMP #### [facility] [address] [address] [address] Conor Chan VLDL CALC 15.0 mg/dL Normal [facility] Comment on above: Performed By: #### L IPID, TSH, T7, URIC, CMP #### [facility] [address] [address] [address] Conor Chan PROF 14(COMP METB)on 022 Albumin [Mass/Vol] 3.7 g/dL Normal 3.5-5.0 [facility] Comment on above: Performed By: #### L IPID, TSH, T7, URIC, CMP #### [facility] [address] [address] [address] Conor Chan Albumin/Globulin [Mass ratio] 0.9 {ratio} Normal [facility] Comment on above: Performed By: #### L IPID, TSH, T7, URIC, CMP #### [facility] [address] [address] [address] Conor Chan ALP [Catalytic activity/Vol] 58 U/L Normal 38-126 [facility] Comment on above: Performed By: #### L IPID, TSH, T7, URIC, CMP #### [facility] [address] [place] [address] Dr. Conor Chan ALT [Catalytic activity/Vol] 40 U/L Normal 21-72 [facility] Comment on above: Performed By: #### L IPID, TSH, T7, URIC, CMP #### [facility] [address] [place] [address] Dr. Conor Chan Anion gap [Moles/Vol] 5.5 mmol/L Normal [facility] Comment on above: Performed By: #### L IPID, TSH, T7, URIC, CMP #### [facility] [address] [place] [address] Dr. Conor Chan AST [Catalytic activity/Vol] 18 U/L Normal 17-59 [facility] Comment on above: Performed By: #### L IPID, TSH, T7, URIC, CMP #### [facility] [address] [place] [address] Dr. Conor Chan Bilirubin [Mass/Vol] 0.5 mg/dL Normal 0.2-1.3 [facility] Comment on above: Performed By: #### L IPID, TSH, T7, URIC, CMP #### [facility] [address] [place] [address] Dr. Conor Chan Calcium [Mass/Vol] 9.9 mg/dL Normal 8.4-10.2 [facility] Comment on above: Performed By: #### L IPID, TSH, T7, URIC, CMP #### [facility] [address] [place] [address] Dr. Conor Chan Chloride [Moles/Vol] 97 mmol/L Critically low 98-107 [facility] Comment on above: Performed By: #### L IPID, TSH, T7, URIC, CMP #### [facility] [address] [place] [address] Dr. Conor Chan CO2 [Moles/Vol] 30.7 mmol/L Critically high 22.0-30.0 [facility] Comment on above: Performed By: #### L IPID, TSH, T7, URIC, CMP #### [facility] [address] [place] [address] Dr. Conor Chan Creatinine [Mass/Vol] 1.04 mg/dL Normal 0.66-1.25 [facility] Comment on above: Performed By: #### L IPID, TSH, T7, URIC, CMP #### [facility] [address] [place] [address] Dr. Conor Chan EGFR-AF SAUDI ARABIAN >60 Normal >=60 [facility] Comment on above: Performed By: #### L IPID, TSH, T7, URIC, CMP #### [facility] [address] [place] [address] Dr. Conor Chan EGFR-NON AF SAUDI ARABIAN >60 Normal >=60 [facility] Comment on above: Performed By: #### L IPID, TSH, T7, URIC, CMP #### [facility] [address] [place] [address] Dr. Conor Chan Globulin (S) [Mass/Vol] 4.2 g/dL Normal [facility] Comment on above: Performed By: #### L IPID, TSH, T7, URIC, CMP #### [facility] [address] [place] [address] Dr. Conor Chan Glucose [Mass/Vol] 122 mg/dL Critically high 74-106 T [facility] Comment on above: Performed By: #### L IPID, TSH, T7, URIC, CMP #### [facility] [address] [place] [address] Dr. Conor Chan Potassium [Moles/Vol] 3.2 mmol/L Critically low 3.4-5.0 [facility] Comment on above: Performed By: #### L IPID, TSH, T7, URIC, CMP #### [facility] [address] [place] [address] Dr. Conor Chan Protein [Mass/Vol] 7.9 g/dL Normal 6.1-8.2 [facility] Comment on above: Performed By: #### L IPID, TSH, T7, URIC, CMP #### [facility] [address] [place] [address] Dr. Conor Chan Sodium [Moles/Vol] 130 mmol/L Critically low 137-145 [facility] Comment on above: Performed By: #### L IPID, TSH, T7, URIC, CMP #### [facility] [address] [place] [address] Dr. Conor Chan Urea nitrogen [Mass/Vol] 15.0 mg/dL Normal 9.0-20.0 [facility] Comment on above: Performed By: #### L IPID, TSH, T7, URIC, CMP #### [facility] [address] [place] [address] Dr. Conor Chan Urea nitrogen/Creatinine [Mass ratio] 14.4 mg/mg Normal [facility] Comment on above: Performed By: #### L IPID, TSH, T7, URIC, CMP #### [facility] [address] [place] [address] Dr. Conor Chan TSHon 12-20-2021 TSH 2.122 uIU/mL Normal 0.470-4.680 [facility] Comment on above: Performed By: #### L IPID, TSH, T7, URIC, CMP #### [facility] [address] [place] [address] Dr. Conor Chan TSH RANGE SEE BELOW Normal [facility] Comment on above: Result Comment: <0.3 4 UIU/ml HYPERTHYROID 0.34-5.60 UIU/ml EUTHYROID >5.60 UIU/ml HYPOTHYROID Performed By: #### L IPID, TSH, T7, URIC, CMP #### [facility] [address] [place] [address] Dr. Conor Chan URIC ACID SERUMon 12-20-2021 Urate [Mass/Vol] 7.3 mg/dL Normal 3.5-8.5 [facility] Comment on above: Performed By: #### L IPID, TSH, T7, URIC, CMP #### [facility] [address] [place] [address] Dr. Conor Chan XR LSPINE MIN 4 VIEWSon 02-2 4-2022 XR LSPINE MIN 4 VIEWS EXAMINATION: XR [...] by: OSCAR FRANCO Date: 2021-12-20 10:06 Normal [facility] Vital Signs Date Time Vital Sign Value Performing Clinician Idalmis rausch 07-20-2024 13:29-0400 Blood Pressure Location Rell SNOW [facility] 07-20-2024 13:29-0400 Diastolic blood pressure 78 mm[Hg] Rell ADAMSON [facility] 07-20-2024 13:29-0400 Heart rate 72 /min Rell ADAMSON [facility] 07-20-2024 13:29-0400 Respiratory rate 16 /min Rell ADAMSON [facility] 07-20-2024 13:29-0400 Systolic blood pressure 116 mm[Hg] Rell ADAMSON [facility] 2023 08:03-0400 Body height 182.9 cm Bilal Butt Work Phone: [facility] 2023 08:03-0400 Body weight 120.2 kg Bilal Butt Work Phone: [facility] 06-02-2023 13:26-0400 Body height 182.9 cm Darern Harris PRODUCTION CONTROL TECHNOLOGIST.CATEGORY SPECIALIST Work Phone: [facility] 06-02-2023 13:26-0400 Body weight 117.03 kg Darren Harris PRODUCTION CONTROL TECHNOLOGIST.CATEGORY SPECIALIST Work Phone: [facility] 08-07-2023 13:26-0400 Diastolic blood pressure 84 mm[Hg] Darrensalome Harris PRODUCTION CONTROL TECHNOLOGIST.CATEGORY SPECIALIST Work Phone: [facility] 06-02-2023 13:26-0400 Heart rate 63 /min Darren Harris PRODUCTION CONTROL TECHNOLOGIST.CATEGORY SPECIALIST Work Phone: [facility] 06-02-2023 13:26-0400 Respiratory rate 18 /min Darren Harris PRODUCTION CONTROL TECHNOLOGIST.CATEGORY SPECIALIST Work Phone: [facility] 06-02-2023 13:26-0400 SaO2% (BldA) [Mass fraction] 95 % Darrensalome Harris PRODUCTION CONTROL TECHNOLOGIST.CATEGORY SPECIALIST Work Phone: [facility] 06-02-2023 13:26-0400 Systolic blood pressure 128 mm[Hg] Darrensalome Harris PRODUCTION CONTROL TECHNOLOGIST.CATEGORY SPECIALIST Work Phone: [facility] 05-13-2023 11:22-0400 Body height 182.88 cm Avi Lauren Hoy Work Phone: [facility] 250 DO Work Phone: 05-13-2023 11:22-0400 Body mass index (BMI) [Ratio] 36.21 kg/m2 Avi Lauren Hoy Work Phone: [facility] 250 DO Work Phone: 05-13-2023 11:22-0400 Body surface area Derived from formula 2.41 m2 Vai Lauren Hoy Work Phone: [facility] 250 DO Work Phone: 05-13-2023 11:22-0400 Body weight 121.11 kg Avi M Hoy Work Phone: [facility] 250 DO Work Phone: 05-13-2023 11:22-0400 Diastolic blood pressure 78 mm[Hg] Avi M Hoy Work Phone: [facility] 250 DO Work Phone: 05-13-2023 11:22-0400 Heart rate 64 /min Avi M Hoy Work Phone: [facility] 250 DO Work Phone: 05-13-2023 11:22-0400 Systolic blood pressure 132 mm[Hg] Avi M Hoy Work Phone: [facility] 250 DO Work Phone: 05-07-2022 11:36-0400 Body height 182.88 cm Avi M Hoy Work Phone: [facility] 250 DO Work Phone: 05-07-2022 11:36-0400 Body mass index (BMI) [Ratio] 38.38 kg/m2 Avi M Hoy Work Phone: [facility] 250 DO Work Phone: 05-07-2022 11:36-0400 Body surface area Derived from formula 2.47 m2 Avi Lauren Hoy Work Phone: [facility] 250 DO Work Phone: 05-07-2022 11:36-0400 Body weight 128.37 kg Avi Lauren Hoy Work Phone: [facility] 250 DO Work Phone: 05-07-2022 11:36-0400 Diastolic blood pressure 72 mm[Hg] Avi Lauren Hoy Work Phone: [facility] 250 DO Work Phone: 05-07-2022 11:36-0400 Heart rate 66 /min Avi Lauren Hoy Work Phone: [facility] 250 DO Work Phone: 05-07-2022 11:36-0400 Systolic blood pressure 110 mm[Hg] Avi M Hoy Work Phone: [facility] 250 DO Work Phone: Encounters Encounter Date Encounter Type Care Provider Facility Start: 08-16-2024 End: 08-16-2024 Bamboo flowsheet Car LUCIANO Work Phone: [facility] Start: 08-16-2024 End: 08-16-2024 Bamboo flowsheet Car LUCIANO Work Phone: [facility] Start: 08-16-2024 End: 08-16-2024 Postop follow up visit related to original px Car Cuellar PA Work Phone: [facility] Comment on above: S/P left knee arthro scopy (Primary Dx) Start: 07-28-2024 End: 07-28-2024 Refill Corona Peng [employer] Work Phone: [facility] Comment on above: Post-op pain (Primar y Dx) Start: 07-20-2024 End: 07-20-2024 ambulatory Rell ADAMSON Facility:[facility] Start: 07-20-2024 End: 07-20-2024 Patient encounter procedure Rell ADAMSON [facility] Start: 07-19-2024 End: 07-19-2024 ambulatory MARIA E KHLOE Not Available Start: 07-08-2024 End: 07-08-2024 ambulatory CAR CUELLAR Not Available Start: 07-05-2024 ambulatory Rell ADAMSON Facility:[facility] Start: 06-21-2024 End: 06-21-2024 ambulatory ELIAS EDEN Not Available Start: 06-11-2024 End: 06-11-2024 ambulatory [facility] Start: 05-10-2024 End: 05-10-2024 ambulatory ELIAS EDEN Not Available Start: 2023 End: 2023 ambulatory JUAN R BEY Facility:[facility] Start: 2023 End: 2023 Office outpatient new 30 minutes Juan R Bey MD Work Phone: [facility] Comment on above: Meralgia paresthetic a of left side (Primary Dx); Chronic midline low back pain without sciatica Start: 08-01-2023 End: 08-01-2023 ambulatory Darren Harris PRODUCTION CONTROL TECHNOLOGIST.CATEGORY SPECIALIST Work Phone: [facility] Comment on above: Dr chong Cut me open Start: 07-01-2023 End: 07-01-2023 ambulatory NIKOLAY Maira CAMP Facility:[facility] Start: 06-26-2023 Telephone encounter Nikolay Camp DO Work Phone: [facility] Comment on above: Preparations For Pro cedures (Pre-injection instructions) Start: 06-19-2023 Orders Only Nikolay hall DO Work Phone: Neurology Comment on above: Lumbar radiculopathy (Primary Dx); Displacement of lumbar intervertebral disc without myelopathy Start: 06-02-2023 End: 06-03-2023 ambulatory DARREN HARRIS Facility:[facility] Start: 06-02-2023 End: 06-02-2023 Patient encounter procedure Darren Harris PRODUCTION CONTROL TECHNOLOGIST.CATEGORY SPECIALIST Work Phone: [facility] Comment on above: Radiculopathy, lumba r region (Primary Dx); Lumbar disc herniation Start: 05-13-2023 Office outpatient vi sit 25 minutes Avi Cervantes Work Phone: [facility] 250 DO Work Phone: Start: 05-13-[address] [facility] Facility: Start: 05-06-2023 Chart abstracting None (Historical) Neurology Start: 12-16-2022 Rx Renewal Avi Cervantes Work Phone: [facility] 250 DO Work Phone: Start: 07-17-2022 End: 07-17-2022 ambulatory Bijan Betts Jr Facility:[facility] Start: 07-17-2022 End: 07-17-2022 Departed Referred MD Avi Cervantes Work Phone: [facility] [address] 250 Start: 05-07-2022 Office outpatient vi sit 25 minutes Avi Cervantes Work Phone: [facility] 250 DO Work Phone: Start: 01-03-[address] AVI CERVANTES Facility :[facility] Start: 12-21-2021 Encounter for genera l adult medical examination without abnormal findings DR AVI CERVANTES [facility] Start: 12-20-2021 End: 12-21-[address] AVI CERVANTES Facility:[facility] Start: 12-20-2021 End: 12-21-2021 Encounter for general adult medical examination without abnormal findings DR AVI CERVANTES Facility:[facility] Start: 12-10-2021 Rx Renewal Reilly mcmahon MD [facility] Phone[facility] 250 DO Work Phone: Procedures Date Procedure Procedure Detail Performing Clinician Start: 07-17-2022 Radiologic examinati on of knee MD Avi Cervantes Work Phone: Start: 12-20-[address] RONDA CERVANTES Comment on above: Performed By: #### P [facility] #### [facility] [address] [place] [address] Dr. Conor Chan Start: 06-09-2020 Total colonoscopy Chaz Nelson MD Work Phone: Start: 07-02-2019 End: 07-02-2019 Colonoscopy Darren Harris PRODUCTION CONTROL TECHNOLOGIST.CATEGORY SPECIALIST Work Phone: Cardiac catheterization Will renetta Nelson MD Work Phone: Cardiac catheterization Jorge ADAMSON Cholecystectomy Reilly miranda MD Work Phone: Cholecystectomy Rell ADAMSON Nasal septoplasty Rell MORALEZ Plan of Treatment Date Care Activity Detail Author Start: 07-02-2029 Screening for malign ant neoplasm of colon [facility] Start: 12-20-2026 PROSTATE CANCER SCREENING DISCUSSION PROSTATE CANCER SCREENING DISCUSSION [facility] Start: 08-16-2024 End: 08-16-2024 Patient encounter procedure 08/16/2024 10:00 AM EDT Office Visit [facility] [address] [place] [address] Car Cuellar, PA [address] [place] [address] S/P left knee arthroscopy (Primary Dx) [facility] Comment on above: S/P left knee arthro scopy (Primary Dx) Start: 08-12-2024 End: 08-12-2024 Patient encounter procedure 08/12/2024 9:00 AM EDT Office Visit [facility] [address] [place] [id number] Car Cuellar, ANKITA [address] [place] [address] [facility] Start: 07-29-2024 End: 07-29-2024 Patient encounter procedure 07/29/2024 10:45 AM EDT Procedure Visit [facility] Jr. Elias Thomas, DO [address] [place] [address] [facility] Start: 06-27-2024 Influenza vaccination Influenza Vacc ine (#1) [facility] Start: 06-27-2023 Influenza vaccination C [facility] Start: 05-13-2023 FUV, Provider: Reilly Nelson, Status: Jus, Time: 11:10 AM FUV, Provider: Reilly Nelson, Status: Pen, Time: 11:10 AM [facility] 250 DO Work Phone: Start: 10-27-2022 DEPRESSION ASSESSMENT DEPRESSION ASS ESSMENT [facility] Start: 05-17-2022 COVID-19 VACCINE (6 - Pfizer series) COVID-19 VACCINE (6 - Pfizer series) [facility] Start: 05-15-2022 FUV, Provider: Reilly Nelson, Status: Jus, Time: 2:00 PM FUV, Provider: Reilly Nelson, Status: Pen, Time: 2:00 PM -[facility] 250 DO Work Phone: Start: 07-02-2020 Colonoscopy COLONOSCOPY [facility] Start: 07-02-2020 COLORECTAL CANCER SCREENING COLORECTAL CANCER SCREENING [facility] Start: 2016 Prostate Cancer Screening Discussion Prostate Cancer Screening Discussion [facility] Start: 2011 SHINGRIX VACCINE (1 of 2) SHINGRIX VACCINE (1 of 2) [facility] Start: 2006 COLOGUARD (FIT-DNA) COLOGUARD (FIT-D NA) [facility] Start: [address] COLONOGRAPHY [facility] Start: 2006 DIABETES SCREEN DIABETES SCREEN [facility] Start: 2006 Diabetes Screening Diabetes Screenin g [facility] Start: 2006 FECAL OCCULT BLOOD FECAL OCCULT BLOO D [facility] Start: 2006 SIGMOIDOSCOPY SIGMOIDOSCOPY [facility] Start: 1996 Lipid 1996 panel - S hayden or Plasma Lipid Screening [facility] Start: 1996 LIPID SCREEN LIPID SCREEN [facility] Start: 1980 Urine microalbumin profile [facility] Start: 1979 HEPATITIS C SCREENING HEPATITIS C SC REENING [facility] Start: 1979 HIV SCREENING HIV SCREENING [facility] Start: 1961 Screening for malign ant neoplasm of colon [facility] End: 09-02-2024 Radex spine lumbosacral minimum 4 views XR LUMBAR MOTION 4V AP/LAT/ FLEX/EXT Radiology Routine Meralgia paresthetica of left side 1 Occurrences starting 2023 until 09/02/2024 [facility] Work Phone: Comment on above: 1 Occurrences starti ng 2023 until 09/02/2024 SPINE INTERVENTION PROCEDURE SPINE INTERVENTION PROCEDURE Procedures Routine Radiculopathy, lumbar region Lumbar disc herniation Ordered: 06/02/2023 [facility] Work Phone: Comment on above: Ordered: 06/02/2023 [facility] Immunizations Immunization Date Immunization Notes Care Provider Fa sherie 09-12-2023 influenza virus vacc ine, unspecified formulation Rell ADAMSON [facility] 10-14-2022 Pfizer COVID-19 Vac Bivalent 30 MCG/0.3ML Intramuscular Suspension Avi Cervantes Work Phone: [facility] 10-03-2022 influenza, injectabl e, quadrivalent, preservative free Avi Aguilar Hosvetlana Work Phone: [facility] 250 DO Work Phone: 10-03-2022 influenza virus vacc ine, unspecified formulation Darren Harris APRN.CATEGORY SPECIALIST Work Phone: [facility] 03-22-2022 Comirnaty 30 MCG/0.3 ML Intramuscular Suspension Avi Cervantes Work Phone: [facility] 250 DO Work Phone: 03-22-2022 Moderna COVID-19 Vac cine 100 MCG/0.5ML Intramuscular Suspension Avi Cervantes Work Phone: [facility] Comment on above: Series: 03-22-2022 SARS-CoV-2 mRNA (nccgquxirbq-nuec-svdamx e) vaccine Rell ADAMSON [facility] 03-22-2022 zoster vaccine recombinant Avi Cervantes Work Phone: [facility] 250 DO Work Phone: 09-03-2021 Pfizer-BioNTech COVI D-19 Vacc 30 MCG/0.3ML Intramuscular Suspension Avi Cervantes Work Phone: [facility] 08-25-2021 influenza virus vacc ine, unspecified formulation Rell ADAMSON [facility] 08-25-2021 influenza, injectabl e, quadrivalent, preservative free Avi Aguilar Hosvetlana Work Phone: [facility] 250 DO Work Phone: 08-25-2021 zoster vaccine recombinant Avi Cervantes Work Phone: [facility] Work Phone: 02-13-2021 Pfizer-BioNTech COVI D-19 Vacc 30 MCG/0.3ML Intramuscular Suspension Avi Cervantes Work Phone: [facility] 01-20-2021 SARS-CoV-2 (COVID-19 ) mRNA BNT-162b2 vax Rell ADAMSON [facility] 01-13-2021 Pfizer-BioNTech COVI D-19 Vacc 30 MCG/0.3ML Intramuscular Suspension Avi Cervantes Work Phone: [facility] 12-23-2020 Pfizer-BioNTech COVI D-19 Vacc 30 MCG/0.3ML Intramuscular Suspension Avi Cervantes Work Phone: [facility] 08-28-2020 influenza, injectabl e, quadrivalent, preservative free Avi Cervantes Work Phone: [facility] 250 DO Work Phone: 08-28-2020 influenza virus vacc ine, unspecified formulation Juan R Bey MD Work Phone: [facility] Payers Date Payer Category Payer Self-pay [id number] [phone] [id number] 2021 Private Health Insurance [employer] A ETNA POS [id number] 2021-Present [phone] [address] [place] [address] POS [id number] 2007 Managed Care O (unspecified) [id number] 1961 Unknown [id number] 1961 Unknown [id number] 1961 Unknown [id number] 1961 Unknown [id number] .1259 1961 Unknown [id number] [id number] .1259 1961 Unknown [id number] .1259 1961 Unknown [id number] [id number] .1259 1961 Unknown [id number] .1259 1961 Unknown [id number] 1959 Private Health Insurance [id number] 1959 Self-pay [id number] Unknown Unknown [facility] [id number] Unknown [id number] Social History Date Type Detail Facility Start: 06-02-2023 End: 07-08-2024 Consumes alcohol Consumes alcohol [facility] Comment on above: socially; occasional; Start: 09-28-2020 End: 05-10-2024 Tobacco smoking status NHIS Never smoked tobacco (finding) [facility] Start: 1960 Sex Assigned At Male F [facility] Tobacco smoking stat us AKIS Tobacco smoking consumption unknown [facility] Start: 1960 Sex Assigned At Not on file C [facility] Start: 06-02-2023 End: 07-08-2024 Gender identity Not on file [facility] Start: 06-02-2023 End: 05-10-2024 Tobacco use and exposure Smokeless tobacco non-user [facility] National Score (1-10 0), lower number is lower risk 61 [facility] Start: 07-28-2023 Gender identity Identifies as male gender (finding) [facility] Start: 07-28-2023 Sexual orientation Heterosexual (fin ding) [facility] Start: 07-08-2024 End: 08-09-2024 Alcoholic beverage intake Current drinker of alcohol (finding) [facility] Start: 05-10-2024 Alcohol Comment 1/WK [facility] Functional Status Date Assessment Result Facility 07-20-2024 Functional Status N/A [facility] Clinical Notes 05-06-2023 to 08-16-2024 Car Cuellar, ANKITA - 08/16/2024 10:00 AM EDTPatient InstructionsTelephone Encounter - Corona Peng NP - 07/28/2024 8:14 AM EDTTelephone Encounter - Corona Peng NP - 07/28/2024 8:14 AM EDT Note Date & Type Note Facility 08-16-2024 History of Presen t illness Narrative Images from the original note were not included. HISTORY OF PRESENT ILLNESS: POST OP PT Kim Nichols is an 64 y.o. @ male. (EST PT) 1ST P/O (R) KNEE SCOPE 07/29/24 (18 DAYS). DOING WELL. CONTINUES TO HAVE SOME SORENESS. NO HEP BUT STATES HE IS STAYING ACTIVE - NOTES GOOD ROM ; SOME TIGHTNESS WITH FULL BENDING. DENIES ANY INSTABILITY / WEAKNESS. DENIES ANY SWELLING - ICES PRN. TAKING NORCO PRN. SUTURES INTACT, REMOVED. NO S/S OF INFECTION. REVIEW OF SYSTEMS: General: Denies fever, fatigue or weight loss Lungs: Denies SOB Cardio: Denies chest pain GI: Denies indigestion or abdominal pain Neuro: Denies numbness or tingling, denies new onset paralysis Musculoskeletal: ( see note) PHYSICAL EXAM: Left Knee Exam Left knee exam is normal. Tenderness Left knee tenderness location: Compartments soft. Range of Motion The patient has normal left knee ROM. Left knee flexion: tightness on terminal flexion. Other Erythema: absent Scars: present (Portals well healing, sutures removed, no erythema, drainge or discharge, no dehisence) Sensation: normal Pulse: present Swelling: mild Effusion: effusion (consistent with surgery) present Comments: Operative lower extremity was noted to be neurovascularly intact. Patient was able to motor feet, toes and ankles in all anatomic planes bilaterally with 5 out of 5 strength. Operative knee's patellar tracking was optimal and quad/ham strength was 5 out of 5 to operative lower extremity. There was no varus valgus, anterior-posterior, or rotatory instability noted to the operative knee. Swelling was well controlled, patella was not ballotable and compartments were soft to the operative lower extremity. Dorsalis pedis and posterior tibial pulses were present and equal bilaterally. There was no evidence of infection or ascending lymphangitis to operative lower extremity. Sensation to light touch was intact to all dermatomes to bilateral lower extremities. Negative Homans and negative Carl were noted bilaterally to lower extremities. Incision was healing without evidence of infection XR knee 1 or 2 views left Imaging Result: X-rays AP and lateral of left knee show mild degenerative changes with mild flattening of the articular surfaces to the medial joint line with decreased joint space height to the medial joint line. Lateral joint line appeared to be well preserved there was subchondral sclerosis noted at the medial joint line and patellofemoral joint. There is no evidence of fracture or dislocation. Bony structures visualized appeared to be adequately ossified. Procedures No orders of the defined types were placed in this encounter. ASSESSMENT: ICD-10-CM 1. S/P left knee arthroscopy Z98.890 S/p TPHMM, CPMFC-4, CDMTP-4 PLAN: Pt noted improvement in symptoms from before surgery.. Pt going [place] in [place].. pt denies any catching or locking, we discussed Medial jointline OA at length at bedside.. pt had abrupt onset of symptoms and improvement more recently with scope.. discussed gradual return to exercise.. Questions answered in laymen terms at the bedside. The diagnosis, home exercise plan and any ongoing restrictions/ recommendations reviewed. If unable to be reached in office, I recommend evaluation at nearest Emergency Room if any symptoms worsened or new symptoms develop for requiring urgent evaluation. documented in this encounter [facility] 08-16-2024 Instructions ANKITA Stapleton - 08/16/2024 10:00 AM EDT Discussed surgery for knee arthroscopy: Recommend no deep squatting, no pivoting or rotation... Recommend no running, jumping or high impact.. Avoid kneeling Cont with ice and elevation, 20 minutes on and 20 minutes off for 1 hour 2-3 times day. Be mindful of swelling pending increasing activities... consider sleeve or sunshine wrap if up for more than 10 mins documented in this encounter [facility] 07-28-2024 Telephone encounter Note Post op pain rx. PDMP reviewed [facility] 07-28-2024 Miscellaneous Notes Post op pain rx. PDMP reviewed documented in this encounter [facility] 07-20-2024 Note General Surgery Offi ce/Clinic Note Chief Complaint consultation for GERD and colonoscopy HPI Staff 63 year old male presents on consultation from Dr. Cervantes for GERD and surveillance colonoscopy. Patient reports several month history of intermittent sternal chest pain. Describes pain as being punched in the chest . Denies heartburn, belching, bloating, sour taste in mouth, nausea or vomiting. Denies abdominal pain, rectal pain or bleeding or bowel changes. UGI completed 07/02 with trace GERD. Took Protonix 40mg daily x 1 month, Carafate BID without change in pain. Patient has since stopped these medications and resumed Omeprazole 40mg daily. Last colonoscopy completed 06/2019 with diverticulosis. FH of colon polyps in father. Patient had negative cardiac workup. Has a.fib which is treated with Metoprolol and Eliquis. History of Present Illness 63 yo male with h/o CAD, atrial fibrillation, on Eliquis, htn, hyperlipidemia, GERD, migraines, lumbar radiculopathy, referred for GERD and possible colonoscopy; patient with intermittent GERD symptoms/chest pain, recent negative cardiac workup; on omeprazole 40 mg daily, no dysphagia or early satiety, no wt loss, no change in bms or blood in stools, no melena; abdominal operations significant for cholecystectomy; last colonoscopy 2018 with sigmoid diverticulosis, one remote EGD with gastritis; on Eliquis and baby asa daily, no NSAID use; no tobacco use; no fmhx of GI malignancy or IBD, fmhx of colon polyps. Review of Systems PHQ Score Initial Depression Screen Score: 0 SCORE ROS - Provider Constitutional: no fever, no sweats, no weight loss. Eyes: no glasses, no blurred vision, no visual loss. ENMT: no dentures, no hoarseness, no swallowing difficulties, no hearing loss, no ear infection(s), no nose bleeds. Cardiovascular: normal blood pressure, mild chest pain, regular heartbeat, no heart murmur. Respiratory: no shortness of breath, no cough, no asthma, no wheezing. Gastrointestinal: no nausea, no vomiting, no diarrhea, no constipation, no blood in stool, no change in bowel habits, no abdominal pain, no hepatitis. Genitourinary: no kidney stones, no urine infection, no dysuria. Musculoskeletal: no pain, no weakness. Skin: no changing moles, no rash, no skin lumps. Neurologic: no seizures, no epilepsy, no headache. Psychiatric: no emotional or psychiatric problem. Heme/Lymph: no bleeding problems, no anemia, no blood clots, no transfusions. Allergy/Immunologic: no swollen lymph nodes/glands, no IV drug abuse. Other: Additional ROS info: Except as noted in the above Review of Systems and in the History of Present Illness, all other systems have been reviewed and are negative or noncontributory. Physical Exam Vitals & Measurements HR: 72(Peripheral) RR: 16 BP: 116/78 HT: 70 in HT: 177.8 cm WT: 122.7 kg WT: 269.94 lb BMI: 38.81 HEENT: normal conjunctiva, sclera clear, no scleral icterus, EOM intact, PERRLA, oral mucosa moist without lesions. Neck: trachea midline, no mass, symmetric, no thyromegaly or nodules, no adenopathy Respiratory: lungs CTA, respirations non labored. Cardiovascular: regular rate and rhythm, no murmur, no pedal edema or varicosities. Gastrointestinal: obese, soft, non distended, no tenderness, no masses, no palpable hernias, diastasis recti no, no hepatosplenomegaly; normal bs Lymphatic: no cervical adenopathy, no supraclavicular adenopathy. Musculoskeletal: normal gait, digits and nails without infection, nodes, cyanosis, clubbing. Skin: no rashes, no lesions, no ulcers, no subcutaneous nodules, induration. Psychiatric/Neuro: oriented to time, place, person, judgement normal, affect appropriate for age, insight intact, no focal deficits. Tests: labs reviewed, x-rays reviewed, review of old records completed , Discussed surgical options, risks, and possible complications with patient. Assessment/Plan 1. Gastroesophageal reflux disease, (K21.9: Gastro-esophageal reflux disease without esophagitis)Chest pain due to GERD plan EGD and colonoscopy under anesthesia for further evaluation, informed consent obtained. 3. Family history of colonic polyps (Z83.719: Family history of colon polyps, unspecified) see # 1 Chest pain, unspecified (R07.9: Chest pain, unspecified) see # 1 Follow-up No qualifying data available Problem List/Past Medical History Ongoing Atrial fibrillation Benign essential hypertension BMI 38.0-38.9,adult Chest pain due to GERD Chronic low back pain Class 3 obesity Coronary arteriosclerosis Diverticulosis Erectile dysfunction Family history of colonic polyps Gastroesophageal reflux disease Hyperlipidemia Lumbar radiculopathy Migraine Historical No qualifying data Procedure/Surgical History Colonoscopy (07/02/2019), Cardiac catheterization, Cholecystectomy, Nasal septoplasty. Medications aspirin 81 mg Oral EC Tab, 81 mg= 1 tab(s), Oral, Daily chlorthalidone 25 mg Tab, 25 mg= 1 tab(s), Oral, Ivy (more content not included)... [facility] Comment on above: Result Comment: Elec tronically Signed By: SNOW LANDA, Rell Mccormick\Date and Time Signed: 07/20/24 14:20 EDT 06-11-2024 Note Cardiology Clinic No te Chief [...] additional cardiac (more content not included)... [facility] 2023 Note O ID: [id number] Author: Juan R Bey MD Service: ? [...] issues. 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 [facility] 2023 Note HNO ID: [id number] Author: Bossman Saunders Service: ? Author Type: [...] opioids Medications: See medication reconciliation list in [facility] MEDICATIONS: Gabapentin, [place], Tylenol Have you ever [...] routine daily living activities? No Bossman Escoto [facility] 2023 History of [...] issues. 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 Author Type: Nurse Practitioner Type: Progress Notes Filed: 08/01/2023 1:30 PM Note Text: SPINE SURGERY ESTABLISHED VISIT This is a virtual visit using [employer] Video Visit. It required patient-provider interaction for the medical decision making as documented below. DATE OF SERVICE: 08/01/2023 DATE OF LAST VISIT: 06/02/2023 SUBJECTIVE: HPI:Kim Nichols is a 62 year old male presenting via virtual vist s/p Left L5 transforaminal epidural steroid injection on 07/01/[address] Camp. Philip great initially and for the first few days after injection, symptoms returned shortly after. Patient has increased his Gabapentin 300 mg from BID to TID and is feeling good today. 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 SIGNATURE: Darren Harris APRN.CNP PATIENT NAME: Kim Nichols DATE: August 01, 2023 TIME: 12:53 PM PAGER: [facility] 06-26-2023 Miscellaneous Notes Phoned patient and message left for Kim to confirm appointment for Kim Nichols for spine procedure on 07/01/2023. Patient notified that [place] will call patient the night before with the time to arrive for injection. Patient verbalized understanding of the following: -Provided education on spine procedure and answered questions related to spine injection procedure. -Kindergartners Helper is needed to drive patient home. -NPO [...] to report. Diabetic: No Patient given number [phone], spine injections schedulers, if there is any need to reschedule/ change appointment during normal business hours. Active MyChart users were informed to read Metrum Swedenhart procedure instructions prior to appointment. AMBULATORY PATIENT [...] POST INJECTION INSTRUCTIONS documented in this encounter [facility] 06-02-2023 Note HNO ID: [id number] Author: Darren Harris APRN.KIRILL Service: ? Author [...] Normal. DATA REVIE (more content not included)... [facility] 06-02-2023 History of Presen t illness [...] which included preparing to see the patient, [id number] patient care, completing clinical documentation, obtaining and/or reviewing separately obtained history, performing a medically appropriate examination, counseling and educating the patient/family/caregiver, independently interpreting results (not separately reported), and communicating results to the patient/family/caregiver. SIGNATURE: Darren Harris APRN.CNP PATIENT NAME: Kim Nichols DATE: June 02, 2023 TIME: 1:57 PM PAGER: documented in this encounter [facility] 05-14-2023 Note HNO ID: [id number] Author: Ember Delatorre PA-C Service: ? Author Type: Physician Warrant Clerk Type: Progress Notes Filed: 05/14/2023 4:17 PM [...] Also see if symptoms correlate with imaging. [facility] 05-14-2023 History of Presen t illness [...] Health Provider or Pain Management Provider at [facility]? No If answer is YES please schedule [...] facility where the MRI/CT/myelogram was completed: The [address] [address] MRI/CT/myelogram viewable in Epic: No If not, please provide [phone] to fax in imaging reports for review. [...] Additional Comments Hydrocodone documented in this encounter [facility] 05-06-2023 Note HNO ID: [id number] Author: Mauricio Kelley Service: ? Author Type: ? Type: Progress Notes Filed: 05/14/2023 4:17 PM Note Text: Patient name: Kim Nichols Are you being referred by a [place] for Spine Health Provider or Pain Management Provider at [facility]? No If answer is YES please schedule [...] facility where the MRI/CT/myelogram was completed: The [address] [address] MRI/CT/myelogram viewable in Epic: No If not, please provide [phone] to fax in imaging reports for review. [...] the surgery was completed: Additional Comments Hydrocodone [facility] Evaluation + Plan note No data available for this section [facility] General Surgery [facility] Evaluation note No assessment inform ation available [facility] Work Phone: Evaluation note Diagnosis Radiculopathy, lumbar region- Primary Thoracic or lumbosacral neuritis or radiculitis, unspecified Lumbar disc herniation Displacement of lumbar intervertebral disc without myelopathy [facility] Lumbar radiculopathy- Primary Thoracic or lumbosacral neuritis or radiculitis, unspecified Displacement of lumbar intervertebral disc without myelopathy [facility] Meralgia paresthetica of left side- Primary Meralgia paresthetica Chronic midline low back pain without sciatica [facility] Diagnosis Post-op pain- Primary Other acute postoperative pain documented in this encounter [facility]* Diagnosis S/P left knee arthroscopy- Primary [facility] NarrativePatient returns in follow-up [...] to their favorable impact on blood pressure andcholesterol.[facility] Weatlas DO Work Phone: History of Present illness [...] to call if they arise or occur. [facility] [employer] 250 DO Work Phone: History of Present [...] to call if they arise or occur. [facility]na 250 DO Work Phone: Hospital Discharge instructions No data available for this section [facility] [employer] Progress note No data available for this section [facility] [employer] Reason for referral (narrative)* Diagnostic Procedure Only (Routine) - Pending Review Specialty Diagnoses / Procedures Referred By Erlinda t Referred To Contact XR IMAGING Diagnoses Meralgia paresthetica of left side Procedures XR LUMBAR MOTION 4V AP/LAT/ FLEX/EXT RADEX SPINE LUMBOSACRAL MINIMUM 4 VIEWS Juan R Bey MD [address] [place] [address] [place] [address] Referral ID Status Reason Start Date Expiration Date Visits Requested Visits Authorized [id number] Pending Review Auto-Generat ed Referral 2023 09/02/2024 1 1 [facility] Summary Purpose Family History Unknown Family Member Name Dates Details Family [...] m ellitus: Sister(V18.0, Z83.3) Status:Active Advance Directives Advance Directive Response Recorded Date/ Time Advance [...] content) DATE CREATED AUTHOR 01/05/2022 [facility] DATE CREATED AUTHOR AUTHOR'S ORGANIZ ATION 07/28/2022 [facility] DATE CREATED AUTHOR AUTHOR'S ORGANIZ ATION 05/14/2023 [facility] DATE CREATED AUTHOR AUTHOR'S ORGANIZ ATION 05/14/2023 [employer] DATE CREATED AUTHOR AUTHOR'S ORGANIZ ATION 2023 [facility] DATE CREATED AUTHOR AUTHOR'S ORGANIZ ATION 08/05/2023 [facility] DATE CREATED AUTHOR AUTHOR'S ORGANIZ ATION 06/24/2024 [facility] DATE CREATED AUTHOR AUTHOR'S ORGANIZ ATION 07/21/2024 [facility] d[facility] Specialists [facility] DATE CREATED AUTHOR AUTHOR'S ORGANIZ ATION 07/22/2024 Arsh Wetzel [facility] Care Teams (unrecognized sec tion and content) Team Status: Inactive Member Role Status Dates Avi Cervantes MD Primary Care Provider Active Bijan Betts Jr, DO Attending Provider Active Team Status: Active Member Role Status Dates Avi Cervantes MD Primary Care Provider Active Shed Boss Relationship Specialty Start Date End Date Avi Cervantes MD [address] [place] [address] Referring Family Medicine 04/24/23 Shed Boss Relationship Specialty Start Date End Date Avi Cervantes MD [address] [phone] Referring Family Medicine 04/24/23 Shed Boss Relationship Specialty Start Date End Date Avi Cervantes MD [address] [place] [address] Referring Family Medicine 04/24/23 Shed Boss Relationship Specialty Start Date End Date Avi Cervantes MD [address] [place] [address] PCP - General Family Medicine 06/25/23 Avi Cervantes MD [address] [place] [address] Referring Family Medicine 04/24/23 Shed Boss Relationship Specialty Start Date End Date Avi Cervantes MD [address] [place] [facility] [address] PCP - General Family Medicine 06/25/23 Avi Cervantes MD [address] [place] [facility] [address] Referring Family Medicine 04/24/23 Shed Boss Relationship Specialty Start Date End Date Avi Cervantes MD [address] [place] [facility] [address] PCP - General Family Medicine 06/25/23 Avi Cervantes MD [address] [place] [facility] [address] Referring Family Medicine 04/24/23 Shed Boss Relationship Specialty Start Date End Date Avi Cervantes MD [address] [facility] [place] [address] PCP - General 05/05/24 Shed Boss Relationship Specialty Start Date End Date Avi Cervantes MD [address] [facility] [place] [address] PCP - General 05/05/24 Shed Boss Relationship Specialty Start Date End Date Avi Cervantes MD [address] [facility] [place] [address] PCP - General 05/05/24 Goals (unrecognized section and content) Goals may be documented in a n alternate section No data available for this section Source Comments (unrecognize d section and content) In the event this informatio n is protected by the Federal Confidentiality of Alcohol and Drug Abuse Patient Records regulations: The Federal rules restrict any use of the information to criminally investigate or prosecute any alcohol or drug abuse patient.[facility] the event this information is protected by the Federal Confidentiality of Alcohol and Drug Abuse Patient Records regulations: The Federal rules restrict any use of the information to criminally investigate or prosecute any alcohol or drug abuse patient.[facility] the event this information is protected by the Federal Confidentiality of Alcohol and Drug Abuse Patient Records regulations: The Federal rules restrict any use of the information to criminally investigate or prosecute any alcohol or drug abuse patient.[facility] the event this information is protected by the Federal Confidentiality of Alcohol and Drug Abuse Patient Records regulations: The Federal rules restrict any use of the information to criminally investigate or prosecute any alcohol or drug abuse patient.[facility] the event this information is protected by the Federal Confidentiality of Alcohol and Drug Abuse Patient Records regulations: The Federal rules restrict any use of the information to criminally investigate or prosecute any alcohol or drug abuse patient.[facility] the event this information is protected by the Federal Confidentiality of Alcohol and Drug Abuse Patient Records regulations: The Federal rules restrict any use of the information to criminally investigate or prosecute any alcohol or drug abuse patient.[facility] Reason for Visit (unrecogniz ed section and content) Reason Comments New Patient Reason Comments Preparations For Procedures Pre-injectio n instructions Reason Comments Low Back Pain New Patient Evaluation Reason Comments Pain Post-op FOR RECORDS PERTAINING TO PATIENTS WHO ARE [...] BE BASED ON THE PRIMARY CLINICAL RECORDS. [facility] [employer] [facility]. provides no warranty or guarantee of the accuracy or completeness of information in this document.
== END 2024-08-17 13:13 | disposition home or self-care (01) ==
LOC: PST 13:12
PROVIDERS: PCP Family Medicine; Visit Provider Surgery
DX: Z01.818 Encounter for other preprocedural examination (principal); Z86.0100 Personal history of colon polyps, unspecified; K21.9 Gastro-esophageal reflux disease without esophagitis

== ENCOUNTER 2024-08-25 06:45 | Day surgery (SDC) | payer OTHER, SELFPAY ==
--- NOTE | 2024-08-25 | OP_ITS ---
OPERATION DATE: 08/25/2024 PREOPERATIVE DIAGNOSIS: Refractory GERD and family history of colon polyps. POSTOPERATIVE DIAGNOSIS: Small sliding type hiatal hernia, 7 mm gastric polyp in the fundus. PROCEDURE: EGD with biopsy of gastric polyp and colonoscopy to cecum. SURGEON: Rell Hall M.D. ANESTHESIA: Monitored anesthesia care. ESTIMATED BLOOD LOSS: Less than 1 mL. INDICATIONS AND CONSENT: Patient is a 64-year-old male with refractory gastroesophageal reflux disease, despite proton pump inhibitors and Carafate, with intermittent chest pain. He also has a family history of colon polyps. Last colonoscopy was 2018. Indications, risks, benefits, alternatives of proceeding with EGD and colonoscopy were explained extensively to the patient, including the risks of bleeding, aspiration, esophageal/gastric/duodenal or colonic perforation or anesthetic complications. All of his questions were answered. Informed consent was obtained. PROCEDURE: Patient brought to the operating room, placed in the left lateral decubitus position. Monitored anesthesia care was provided. Bite block was placed in the patient?s mouth. Scope was inserted into the oropharynx. Under direct visualization, it was advanced into the esophagus, past the cricopharyngeus, down to the stomach. The stomach was insufflated with air. The pylorus was traversed down to the descending portion of the duodenum. There was no evidence of duodenitis or ulceration. There was no scarring within the pyloric channel. Scope was pulled back into the stomach and retroflexed. There was noted to be a small, sliding type hiatal hernia. No gastritis or ulcerations. Within the fundus, there was noted to be a 7 mm pedunculated polyp. Biopsy was obtained with cold biopsy forceps with good hemostasis. The GE junction was noted at approximately 40 cm. There was no distal esophagitis or Tobar?s changes. The remainder of the esophagus was unremarkable. The scope was then withdrawn. Patient tolerated procedure well, was then positioned for colonoscopy. Rectal exam was performed which showed no masses or blood. Scope was inserted into the anal canal. Under direct visualization was advanced. With the aid of abdominal compression, it was advanced to the cecum where cecal markings were clearly identified. Upon withdrawal of the scope, mucosal surfaces were carefully examined. There were no mass lesions or polyps. No inflammatory changes or ulcerations. There was moderate sigmoid diverticulosis without inflammatory changes or scarring. The scope was retroflexed in the anal canal. There was no significant hemorrhoidal disease. Scope was then withdrawn. Patient tolerated procedure well, was sent to recovery room in good condition. Follow up screening colonoscopy should be in 10 years. [facility]
--- OUTSIDE RECORDS SUMMARY | 2024-08-25 06:48 | XMS_ITS | CCD ---
Author Organization [facility] Care Team Providers Care Engineer [employer] Name Role Phone Unavailable Unavailable DR AVI CERVANTES Attending Unavailable MARLENI, DR CÁRDENAS Admitting Unavailable MARLENI, DR CÁRDENAS Attending Unavailable MARLENI, DR CÁRDENAS Admitting Unavailable MARLENI, DR CÁRDENAS Consulting Unavailable WEST, DR OSCAR Ingram Consulting Unavailable Avi Cervantes Unavailable MD Avi Cervantes Primary Care Provider [phone] Bijan Betts Jr Attending Provider [phone] Bijan Betts Jr Attending Unavailable Bijan Betts Jr Admitting Unavailable Avi Cervantes Primary Care Unavailable Leslie DAVALOS, Dr. Reilly Hernandez Referring Unavailable Leslie DAVALOS, Dr. Reilly Hernandez Attending Unavailable Dr. Avi Cervantes Primary Care Unavail able Avi Cervantes MD Unavailable Avi Cervantes MD Primary Care Provider [phone] DARREN HARRIS Attending Unavailable AVI CERVANTES Primary Care Unavailable DARREN HARRIS Attending Unavailable NIKOLAY CAMP Admitting Unavailable NIKOLAY CAMP Attending Unavailable NIKOLAY CAMP Referring Unavailable JUAN R BEY Attending Unavailable AVI CERVANTES Primary Care Unavailable RICHARD BENITEZ Attending Unavailable Avi Cervantes Primary Care Physician Rell ADAMSON Attending Unavailable Avi Cervantes MD Primary Care Provider JR. THOMAS GEORGE C Attending Unavaila amy THOMAS JR., GEORGE C Referring Unavaila amy THOMAS JR., GEORGE C Attending Unavaila CAR Mack Attending Unavailable MARIA E LEDBETTER Attending Unavailable CAR CUELLAR Referring Unavailable CAR CUELLAR Attending Unavailable Allergies Allergy Classification Reported Allergen(s) Allergy Type Date of Onset Reaction(s) Facility (18 sources) Amoxicillin; Translations: [amoxicillin] Drug Allergy 0 Hives, Rash [facility] (1 source) Amoxicillin Drug Allergy [facility] (1 source) traMADol Drug Allergy [facility] (1 source) Amoxicillin Drug Allergy 0 [facility] Repository (5 sources) traMADol; Translations: [TRAMADOL] Drug Allergy 4 Unknown [facility] Rep[facility] (2 sources) Penicillin; Translations: [penicillin] Drug Allergy Weal (disorder) [facility] Medications Current Medications Medication Drug Class(es) Dates Sig (Normalized) Sig (Original) acetaminophen 325 mg / HYDROcodone bitartrate 5 mg oral tablet (10 sources) Opioid Agonist Start: 07-28-2024 End: 07-31-2024 take 1 tablet by mouth every six hours for pain HYDROcodone-aceta minophen (Anamosa) 5-325 MG tablet Indications: Post-op pain Take 1 tablet by mouth every 6 (six) hours if needed for severe pain for up to 3 days 12 tablet 07/28/2024 07/31/2024 Active Start: 07-08-2024 take 1 tablet by zainab th twice daily as needed for pain Anamosa 325 mg-5 mg oral tablet 1 tab(s), [...] TAB PO Q6H September 26, 2020 1:00am Anamosa 5-325 MG T ABS TAKE 1 TABLET EVERY 4 TO 6 HOURS NEEDED. Quantity: 0 Refills: 0 Ordered: 13-May-2023 DO Active Comment on above: Take 1 tablet by zainab th every 6 hours as needed. apixaban 5 mg oral tablet (5 sources) Factor Xa Inhibitor Start: 05-08-2024 Eliquis 5 MG tablet 5 mg 05/08/2024 [...] Active Start: 05-27-2023 take 1 capsule by [facility] twice daily gabapentin (NEURONTIN) 300 mg capsule Take 300 mg by mouth twice daily. 0 05/27/2023 Active take 1 capsule by [facility] twice daily Gabapentin 300 MG Oral Capsule [...] Date: 07/20/24 Status: Ordered Start: 09-26-2020 omeprazole (NH ILOSEC) 40 mg capsule pantoprazole 40 mg delayed release oral tablet (4 sources) Proton Pump Inhibitor take 1 tablet by mouth before mealtime pantoprazole (ProtoNix) 40 MG EC tablet Take 40 mg by mouth in the morning. Take before meals. Do not crush, chew, or split.. Active potassium chloride 20 meq extended release oral tablet (5 sources) Start: 024 potassium chloride CR (K-Tab) 20 MEQ ER tablet 05/08/2024 Active rosuvastatin calcium 20 mg oral tablet (14 sources) HMG-CoA Reductase Inhibitor Start: 022 take 1 tablet by mouth once daily rosuvastatin 20 mg Tab 20 mg = 1 tab(s), Oral, Daily, Refills(s) 0 Start Date: 07/08/24 Status: Ordered sildenafil 50 mg oral tablet (4 sources) Phosphodiesterase 5 Inhibitor Start: 023 End: 024 take 1 tablet by mouth once [...] [Coronary atherosclerosis of unspecified type of vessel, cher-ae heights or graft] 07-08-2024 Chronic Diabetes mellitus without [...] LANDA, Rell Marr Primary Care Physician - Avi Cervantes MD This Is Your Medications List Contact prescribing physician if questions or concerns acetaminophen-hydroco done (Anamosa 325 mg-5 mg oral tablet) apixaban (Eliquis [...] How Much When Instructions Unchanged acetaminophen-hydroco done (Anamosa 325 mg-5 mg oral tablet) 1 Tablets [...] you for choosing us for your care. [facility] Office Visiton 06-11-2024 Follow-up visit [id number] Kim Nichols 1960 [facility] Provider Department Center 06/11/2024 3848-RICHARD BENITEZ [facility] [place] [facility] Family History Problem Relation Age of Onset Brain Aneurysm Mother Stroke Father Heart attack Sister Family Status - Relation Status Age at Mother Father Sister Level of Service:00277 [place] OFFICE/OUTPATIENT NEW MODERATE MDM 45 MINUTES Reason for Visit and Comments: New Patient [Other] - CHEST PAIN/AFIB Normal [facility] CNOVon 2023 CNOV Office Visit (SPSLUH ) KIM NICHOLS ([id number]) 1960 M Date Time Provider Department 08/04/23 8:00 AM JUAN R BEYDemond During your visit today, we recorded the following information about you: Weight Height 120.2 kg 1.829 m Paul EscotoBossman 2023 9:14 AM Signed Pt has been [...] opioids Medications: See medication reconciliation list in [facility] MEDICATIONS: Gabapentin, Anamosa, Tylenol Have you ever seen a pain [...] issues. 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 [facility]ICH[facility]S ([id number]) 1960 M Date Time Provider Department 07/08/23 NIKOLAY CAMP SPAKMN During your visit today, we recorded the following information about you: Stacy Gallagher RN 07/08/2023 12:56 PM Signed Post Spine Injection phone call: [phone] on 07/08/23 Patient denies fever, chills, new [...] appointment 2-4 weeks post procedure by calling [phone] Patient does not have any questions or concerns. Patient will call office with any questions or concerns. Allergies As of Date: 07/08/2023 Noted Allergy Reaction AMOXICILLIN 09/26/2020 4 - Hives 2 - Rash Date Reviewed: 07/01/2023 Reviewed by: Fausto Pal, FAVIOLA - Fully Assessed Reason for Visit: post [...] Status:Closed by STACY GALLAGHER on 07/08/23 Normal [facility] HISTORY PHYSICALon HISTORY PHYSICAL HNO ID: [id number] Author: Sherice Galvin APRN.LEAD INVESTIGATOR Service: ? Author Type: Nurse Practitioner Type: [...] July 01, 2023 TIME: 9:04 AM Normal [facility] OPERATIVE NOon 07-01-2023 OPERATIVE NO HNO ID: [id number] Author: Nikolay Camp DO Service: Physical Medicine AND Rehabilitation Author Type: Physician Type: Operative Report Filed: 07/01/2023 9:40 AM Note Text: PROCEDURE REPORT Surgery/Procedure Date: July 01, 2023 Interventionalist: Nikolay Camp DO Procedure(s): Left L5 transforaminal epidural steroid injection Pre-Op/Pre-Procedure Diagnosis: Lumbar radiculopathy Post-Op Diagnosis: same SUBJECTIVE: Kim Nichols is a 62 year old male, who presents to the [facility] for a left L5 transforaminal epidural steroid injection. This is his first (1) procedure. 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 Pain is central [...] to be discharged home in stable condition. Nikolay Camp, DO Normal [facility] 06-26-2023 CNPN Telephone (SPNMMN) JESSIKIM ([id number]) 1960 M Date Time Provider Department 06/26/23 NIKOLAY CAMP [facility] During your visit today, we recorded the following information about you: Oscar Rollins LPN 06/26/2023 9:20 AM Signed Phoned patient and message left for Kim to confirm appointment for Kim Nichols for spine procedure on 07/01/2023. Patient notified that [facility] will call patient the night before with the time to arrive for injection. Patient verbalized understanding of the following: -Provided education on spine procedure and answered questions related to spine injection procedure. -Foreign Language Professor is needed to drive patient home. -NPO [...] to report. Diabetic: No Patient given number [phone], spine injections schedulers, if there is any [...] CNOV Office Visit (SPNSMN ) KIM NICHOLS ([id number]) 1960 M Date Time Provider Department 06/02/23 1:40 PM DARREN HARRIS During your visit today, we recorded the following information about you: Pulse Respiration Blood pressure Weight 63/minute 18/minute 128/84 117 kg Height 1.829 m Darren Harris APRN.LEAD INVESTIGATOR 06/03/2023 1:01 PM Signed SPINE SURGERY OUTPATIENT [...] with him pain. He also is prescribed Anamosa for breakthrough pain which he only takes [...] well de (more content not included)... Normal [facility] Office Visit (Cardiology)on 05-13-2023 Follow-up visit Diagnoses/Problems Assessed Coronary disease (414.00) (I25.10) Essential hypertension, benign (401.1) (I10) Hyperlipidemia (272.4) (E78.5) Class 2 obesity with body mass index (BMI) of 36.0 to 36.9 in adult (278.00,V85.36) (E66.9,Z68.36) Never a smoker Orders Class 2 obesity with body mass index (BMI) of 36.0 to 36.9 in adult Healthy Weight Tips; Status:Complete - Retrospective Authorization; Done: [id number] Some eating tips that can help you lose weight.; Status:Complete - Retrospective Authorization; Done: [id number] Coronary disease, Hyperlipidemia Renew: Aspirin EC Low Dose 81 MG Oral Tablet Delayed Release; TAKE 1 TABLET DAILY DIRECTED Hyperlipidemia Renew: Rosuvastatin Calcium 20 MG Oral Tablet; take 1 tablet by mouth at bedtime SocHx: Never a smoker Tobacco Use Screening; Status:Complete; Done: [id number] Patient Instructions Please bring all medicines, vitamins, [...] MG Oral CapsuleTAKE 1 CAPSULE TWICE DAILY. Anamosa 5-325 MG TABSTAKE 1 TABLET EVERY 4 [...] negative for complaint. Vitals Vital Signs Recorded: [id number] 11:22AM Heart Rate64, R Radial Vjybtnyh732, RUE, Sitting Kotpgxyyq29, RUE, Sitting Height6 ft Mcpawx691 lb BMI Ukyqounnpo14.21 kg/m2 BSA Calculated2.41 Tobacco Useb) No PHQ-2 [...] no hep (more content not included)... Normal [place] Tobacco Screening.on 023 Adult depression screening assessment No [facility] 250 DO Work Phone: Tobacco use status CPHS b) No [facility] 250 DO Work Phone: XR knee LT 4V*on 07-17-2022 XR knee LT 4V* [facility] Main [place] [address] [place] [id number] XRay Report Signed Patient: Kim Nichols MR#: [id number] : 1960 Acct:[id number] Age/Sex: 61 / M ADM Date: 07/17/22 Loc: [place] Room: Type: [facility] Attending Dr: Bijan Betts Jr, DO Copies [...] Stacy Ellis M.D.07/17/2022 1:18 PM Dictation Location: [place] [address] Transcribed By: [facility] 07/17/22 1318 Dictated By: Stacy Ellis MD 07/17/22 1315 Signed By: 07/17/22 1318 [facility] Tobacco Screening.on 022 Adult depression screening assessment No [facility] 250 DO Work Phone: Fall risk assessment c) Not medically indicated [facility] 250 DO Work Phone: Tobacco use status CP b) No [facility] 250 DO Work Phone: H PYLORI ANTIBODY IGGon 11-28 H. PYLORI IGG ABS 0.45 Index Value Normal 0.00-0.79 [facility] Comment on above: Result Comment: Nega tive <0.80 Equivocal 0.80 - 0.89 Positive >0.89 Performed By: #### L IPID, TSH, T7, URIC, CMP #### [facility] [address] [place] [address] Dr. Conor Chan INSULINon 12-21-2021 Insulin 55.2 uIU/mL Critically high 2.6-24.9 [facility] Comment on above: Performed By: #### I NSULIN #### [facility] [address] [place] [address] Dr. Conor Chan TESTOSTERONE, TOTALon 2021 Testosterone [Mass/Vol] 380 ng/dL Normal 264-916 [facility] Comment on above: Result Comment: Adul t male reference interval is based on a population of healthy nonobese males (BMI <30) between 19 and 39 years old. Travon, et.al. JCEM 2017,102;7110-0930. PMID: [id number]. Performed By: #### L IPID, TSH, T7, URIC, CMP #### [facility] [address] [place] [address] Dr. Conor Chan CBC AUTO DIFFon 12-20-2021 BASO # 0.0 103/ul Normal 0.0-0.1 [facility] Comment on above: Performed By: #### C BC #### [facility] [address] [place] [address] Dr. Conor Chan Basophils/100 WBC (Bld) 0.5 % Normal 0.2-2.0 [facility] Comment on above: Performed By: #### C BC #### [facility] [address] [place] [address] Dr. Conor Chan EO # 0.2 103/ul Normal 0.0-0.7 [facility] Comment on above: Performed By: #### C BC #### [facility] [address] [place] [address] Dr. Conor Chan Eosinophils/100 WBC (Bld) 3.5 % Normal 0.9-7.0 [facility] Comment on above: Performed By: #### C BC #### [facility] [address] [place] [address] Dr. Conor Chan Erythrocyte distribution width (RBC) [Ratio] 13.8 % Normal 11.0-15.0 [facility] Comment on above: Performed By: #### C BC #### [facility] [address] [place] [address] Dr. Conor Chan Hematocrit (Bld) [Volume fraction] 48.5 % Normal 42.0-54.0 [facility] Comment on above: Performed By: #### C BC #### [facility] [address] [place] [address] Dr. Conor Chan Hemoglobin (Bld) [Mass/Vol] 16.3 g/dL Normal 14.0-18.0 [facility] Comment on above: Performed By: #### C BC #### [facility] [address] [place] [address] Dr. Conor Chan IG # 0.02 10e3/ul Normal 0.00-0.03 [facility] Comment on above: Performed By: #### C BC #### [facility] [address] [place] [address] Dr. Conor Chan IG % 0.3 % Normal 0.0-0.5 [facility] Comment on above: Performed By: #### C BC #### [facility] [address] [place] [address] Dr. Conor Chan LYMPH # 1.4 103/ul Normal 1.2-3.8 [facility] Comment on above: Performed By: #### C BC #### [facility] [address] [place] [address] Dr. Conor Chan Lymphocytes/100 WBC (Bld) 21.7 % Normal 20.5-60.0 [facility] Comment on above: Performed By: #### C BC #### [facility] [address] [place] [address] Dr. Conor Chan MANUAL DIFF REQ NO Normal [facility] Comment on above: Performed By: #### C BC #### [facility] [address] [place] [address] Dr. Conor Chan MCH (RBC) [Entitic mass] 28.5 pg Normal 25.9-34.0 [facility] Comment on above: Performed By: #### C BC #### [facility] [address] [place] [address] Dr. Conor Chan MCHC (RBC) [Mass/Vol] 33.6 g/dL Normal 29.9-35.2 [facility] Comment on above: Performed By: #### C BC #### [facility] [address] [place] [address] Dr. Conor Chan MCV (RBC) [Entitic vol] 84.9 fL Normal 80.0-94.0 [facility] Comment on above: Performed By: #### C BC #### [facility] [address] [place] [address] Dr. Conor Chan MONO # 0.6 103/ul Normal 0.3-0.8 [facility] Comment on above: Performed By: #### C BC #### [facility] [address] [place] [address] Dr. Conor Chan Monocytes/100 WBC (Bld) 9.3 % Normal 1.7-12.0 [facility] Comment on above: Performed By: #### C BC #### [facility] [address] [place] [address] Dr. Conor Chan NEUT # 4.1 103/ul Normal 1.4-6.5 [facility] Comment on above: Performed By: #### C BC #### [facility] [address] [place] [address] Dr. Conor Chan Neutrophils/100 WBC (Bld) 64.7 % Normal 43.0-75.0 [facility] Comment on above: Performed By: #### C BC #### [facility] [address] [place] [address] [address] Conor Chan Platelet mean volume (Bld) [Entitic vol] 9.8 fL Normal 9.5-13.5 [facility] Comment on above: Performed By: #### C BC #### [facility] [address] [place] [address] [address] Conor Chan PLT 235 103/ul Normal 150-450 [facility] Comment on above: Performed By: #### C BC #### [facility] [address] [place] [address] [address] Conor Chan RBC 5.71 106/ul Normal 4.70-6.10 [facility] Comment on above: Performed By: #### C BC #### [facility] [address] [place] [address] Dr. Conor Chan WBC 6.4 103/ul Normal 4.0-11.0 [facility] Comment on above: Performed By: #### C BC #### [facility] [address] [place] [address] Dr. Conor Chan FREE THYROXINE INDEX T7on FTI 2.89 Normal [facility] Comment on above: Performed By: #### L IPID, TSH, T7, URIC, CMP #### [facility] [address] [place] [address] Dr. Conor Chan T3U 34.0 % Normal 23.5-40.5 [facility] Comment on above: Performed By: #### L IPID, TSH, T7, URIC, CMP #### [facility] [address] [place] [address] Dr. Conor Chan T4 [Mass/Vol] 8.50 ug/dL Normal 5.53-11.00 [facility] Comment on above: Performed By: #### L IPID, TSH, T7, URIC, CMP #### [facility] [address] [place] [address] Dr. Conor Chan GLYCOHEMOGLOBIN A1Con 2021 ADA RECOMMENDATION ADA THERAPEUTIC TARGET 6.0 - 7.0 ACTION SUGGESTED > 7.0 Normal [facility] Comment on above: Performed By: #### A 1C #### [facility] [address] [place] [address] [address] Conor Chan Glucose [Mass/Vol] 126 mg/dL Normal [facility] Comment on above: Performed By: #### A 1C #### [facility] [address] [place] [address] [address] Conor Chan HbA1c (Bld) [Mass fraction] 6.0 % Normal <=6.0 [facility] Comment on above: Performed By: #### A 1C #### [facility] [address] [place] [address] [address] Conor Chan LIPID PROFILEon 12-20-2021 CHOL-HDL RATIO NORM SEE BELOW Normal [facility] Comment on above: Result Comment: 3.3 - 4.4 LOW RISK 4.4 - 7.1 AVERAGE RISK 7.1 - 11.0 MODERATE RISK >11.0 HIGH RISK Performed By: #### L IPID, TSH, T7, URIC, CMP #### [facility] [address] [place] [address] [address] Conor Chan Cholesterol [Mass/Vol] 161 mg/dL Normal <=200 [facility] Comment on above: Performed By: #### L IPID, TSH, T7, URIC, CMP #### [facility] [address] [place] [address] [address] Conor Chan Cholesterol in HDL [Mass/Vol] 50 mg/dL Normal [facility] Comment on above: Performed By: #### L IPID, TSH, T7, URIC, CMP #### [facility] [address] [place] [address] [address] Conor Chan Cholesterol in LDL [Mass/Vol] 96.0 mg/dL Normal [facility] Comment on above: Performed By: #### L IPID, TSH, T7, URIC, CMP #### [facility] [address] [place] [address] [address] Conor Chan Cholesterol.total/Ch olesterol in HDL [Mass ratio] 3.2 {ratio} Normal [facility] Comment on above: Performed By: #### L IPID, TSH, T7, URIC, CMP #### [facility] [address] [place] [address] [address] Conor Chan HDL NORMAL > or = 60 mg/dl - LO W CARDIOVASCULAR RISK <40 mg/dl - HIGH CARDIOVASCULAR RISK Normal [facility] Comment on above: Performed By: #### L IPID, TSH, T7, URIC, CMP #### [facility] [address] [place] [address] [address] Conor Chan LDL CALC NORMAL SEE BELOW Normal [facility] Comment on above: Result Comment: <100 mg/dl OPTIMAL 100 - 129 mg/dl NEAR OR ABOVE OPTIMAL 130 - 159 mg/dl BORDERLINE HIGH 160 - 189 mg/dl HIGH >190 mg/dl VERY HIGH Performed By: #### L IPID, TSH, T7, URIC, CMP #### [facility] [address] [place] [address] Dr. Conor Chan Triglyceride [Mass/Vol] 75 mg/dL Normal <=150 [facility] Comment on above: Performed By: #### L IPID, TSH, T7, URIC, CMP #### [facility] [address] [place] [address] Dr. Conor Chan VLDL CALC 15.0 mg/dL Normal [facility] Comment on above: Performed By: #### L IPID, TSH, T7, URIC, CMP #### [facility] [address] [place] [address] Dr. Conor Chan PROF 14(COMP METB)on 022 Albumin [Mass/Vol] 3.7 g/dL Normal 3.5-5.0 [facility] Comment on above: Performed By: #### L IPID, TSH, T7, URIC, CMP #### [facility] [address] [place] [address] Dr. Conor Chan Albumin/Globulin [Mass ratio] 0.9 {ratio} Normal [facility] Comment on above: Performed By: #### L IPID, TSH, T7, URIC, CMP #### [facility] [address] [place] [address] Dr. Conor Chan ALP [Catalytic activity/Vol] 58 U/L Normal 38-126 [facility] Comment on above: Performed By: #### L IPID, TSH, T7, URIC, CMP #### [facility] [address] [place] [address] Dr. Conor Chan ALT [Catalytic activity/Vol] 40 U/L Normal 21-72 [facility] Comment on above: Performed By: #### L IPID, TSH, T7, URIC, CMP #### [facility] [address] [place] [address] Dr. Conor Chan Anion gap [Moles/Vol] 5.5 mmol/L Normal [facility] Comment on above: Performed By: #### L IPID, TSH, T7, URIC, CMP #### [facility] [address] [place] [address] Dr. Conor Chan AST [Catalytic activity/Vol] 18 U/L Normal 17-59 [facility] Comment on above: Performed By: #### L IPID, TSH, T7, URIC, CMP #### [facility] [address] [place] [address] Dr. Conor Chan Bilirubin [Mass/Vol] 0.5 mg/dL Normal 0.2-1.3 [facility] Comment on above: Performed By: #### L IPID, TSH, T7, URIC, CMP #### [facility] [address] [place] [address] Dr. Conor Chan Calcium [Mass/Vol] 9.9 mg/dL Normal 8.4-10.2 [facility] Comment on above: Performed By: #### L IPID, TSH, T7, URIC, CMP #### [facility] [address] [place] [address] Dr. Conor Chan Chloride [Moles/Vol] 97 mmol/L Critically low 98-107 [facility] Comment on above: Performed By: #### L IPID, TSH, T7, URIC, CMP #### [facility] [address] [place] [address] Dr. Conor Chan CO2 [Moles/Vol] 30.7 mmol/L Critically high 22.0-30.0 [facility] Comment on above: Performed By: #### L IPID, TSH, T7, URIC, CMP #### [facility] [address] [place] [address] Dr. Conor Chan Creatinine [Mass/Vol] 1.04 mg/dL Normal 0.66-1.25 [facility] Comment on above: Performed By: #### L IPID, TSH, T7, URIC, CMP #### [facility] [address] [place] [address] Dr. Conor Chan EGFR-AF BELGIAN >60 Normal >=60 [facility] Comment on above: Performed By: #### L IPID, TSH, T7, URIC, CMP #### [facility] [address] [place] [address] Dr. Conor Chan EGFR-NON AF BELGIAN >60 Normal >=60 [facility] Comment on above: Performed By: #### L IPID, TSH, T7, URIC, CMP #### [facility] [address] [place] [address] Dr. Conor Chan Globulin (S) [Mass/Vol] 4.2 g/dL Normal [facility] Comment on above: Performed By: #### L IPID, TSH, T7, URIC, CMP #### [facility] [address] [place] [address] Dr. Conor Chan Glucose [Mass/Vol] 122 mg/dL Critically high 74-106 [facility] Comment on above: Performed By: #### L IPID, TSH, T7, URIC, CMP #### [facility] [address] [place] [address] Dr. Conor Chan Potassium [Moles/Vol] 3.2 mmol/L Critically low 3.4-5.0 [facility] Comment on above: Performed By: #### L IPID, TSH, T7, URIC, CMP #### [facility] [address] [place] [address] Dr. Conor Chan Protein [Mass/Vol] 7.9 g/dL Normal 6.1-8.2 [facility] Comment on above: Performed By: #### L IPID, TSH, T7, URIC, CMP #### [facility] [address] [address] [address] Conor Chan Sodium [Moles/Vol] 130 mmol/L Critically low 137-145 [facility] Comment on above: Performed By: #### L IPID, TSH, T7, URIC, CMP #### [facility] [address] [place] [address] Dr. Conor Chan Urea nitrogen [Mass/Vol] 15.0 mg/dL Normal 9.0-20.0 [facility] Comment on above: Performed By: #### L IPID, TSH, T7, URIC, CMP #### [facility] [address] [place] [address] Dr. Conor Chan Urea nitrogen/Creatinine [Mass ratio] 14.4 mg/mg Normal [facility] Comment on above: Performed By: #### L IPID, TSH, T7, URIC, CMP #### [facility] [address] [place] [address] Dr. Conor Chan TSHon 12-20-2021 TSH 2.122 uIU/mL Normal 0.470-4.680 [facility] Comment on above: Performed By: #### L IPID, TSH, T7, URIC, CMP #### [facility] [address] [place] [address] Dr. Conor Chan TSH RANGE SEE BELOW Normal [facility] Comment on above: Result Comment: <0.3 4 UIU/ml HYPERTHYROID 0.34-5.60 UIU/ml EUTHYROID >5.60 UIU/ml HYPOTHYROID Performed By: #### L IPID, TSH, T7, URIC, CMP #### [facility] [address] [place] [address] Dr. Conor Chan URIC ACID SERUMon 12-20-2021 Urate [Mass/Vol] 7.3 mg/dL Normal 3.5-8.5 [facility] Comment on above: Performed By: #### L IPID, TSH, T7, URIC, CMP #### [facility] [address] [place] [address] Dr. Conor Chan XR LSPINE MIN 4 [...] OSCAR FRANCO Date: 2021-12-20 10:06 Normal [facility] Vital Signs Date Time Vital Sign Value Performing Clinician Idalmis rausch 07-20-2024 13:29-0400 Blood Pressure Location Rell SNOW [facility] 07-20-2024 13:29-0400 Diastolic blood pressure 78 mm[Hg] Rell ADAMSON [facility] 07-20-2024 13:29-0400 Heart rate 72 /min Rell ADAMSON [facility] 07-20-2024 13:29-0400 Respiratory rate 16 /min Rell VALENCIAGia [facility] 07-20-2024 13:29-0400 Systolic blood pressure 116 mm[Hg] Rell ADAMSON [facility] 2023 08:03-0400 Body height 182.9 cm Bilal Butt Work Phone: [facility] 2023 08:03-0400 Body weight 120.2 kg Bilal Butt Work Phone: [facility] 06-02-2023 13:26-0400 Body height 182.9 cm Darren Harris BOARD MACHINE SET UP OPERATOR.LEAD INVESTIGATOR Work Phone: [facility] 06-02-2023 13:26-0400 Body weight 117.03 kg Darren Harris BOARD MACHINE SET UP OPERATOR.LEAD INVESTIGATOR Work Phone: [facility] 06-02-2023 13:26-0400 Diastolic blood pressure 84 mm[Hg] Darrensalome Harris BOARD MACHINE SET UP OPERATOR.LEAD INVESTIGATOR Work Phone: [facility] 06-02-2023 13:26-0400 Heart rate 63 /min Darren Harris BOARD MACHINE SET UP OPERATOR.LEAD INVESTIGATOR Work Phone: [facility] 06-02-2023 13:26-0400 Respiratory rate 18 /min Darrensalome Harris BOARD MACHINE SET UP OPERATOR.LEAD INVESTIGATOR Work Phone: [facility] 06-02-2023 13:26-0400 SaO2% (BldA) [Mass fraction] 95 % Darrensalome Harris BOARD MACHINE SET UP OPERATOR.LEAD INVESTIGATOR Work Phone: [facility] 06-02-2023 13:26-0400 Systolic blood pressure 128 mm[Hg] Darrensalome Harris BOARD MACHINE SET UP OPERATOR.LEAD INVESTIGATOR Work Phone: [facility] 05-13-2023 11:22-0400 Body height 182.88 cm Avi Aguilar Hoy Work Phone: [facility] 250 DO Work Phone: 05-13-2023 11:22-0400 Body mass index (BMI) [Ratio] 36.21 kg/m2 Avi Lauren Hoy Work Phone: [facility] 250 DO Work Phone: 05-13-2023 11:22-0400 Body surface area Derived from formula 2.41 m2 Avi Lauren Hoy Work Phone: [facility] 250 DO Work Phone: 05-13-2023 11:22-0400 Body weight 121.11 kg Avi Lauren Hoy Work Phone: [facility] 250 DO Work Phone: 05-13-2023 11:22-0400 Diastolic blood pressure 78 mm[Hg] Avi Lauren Hoy Work Phone: [facility] 250 DO Work Phone: 05-13-2023 11:22-0400 Heart rate 64 /min Avi Lauren Hoy Work Phone: [facility] 250 DO Work Phone: 05-13-2023 11:22-0400 Systolic blood pressure 132 mm[Hg] Avi M Hoy Work Phone: [facility] 250 DO Work Phone: 05-07-2022 11:36-0400 Body height 182.88 cm Avi M Hoy Work Phone: [facility] 250 DO Work Phone: 05-07-2022 11:36-0400 Body mass index (BMI) [Ratio] 38.38 kg/m2 Avi M Hoy Work Phone: [facility] 250 DO Work Phone: 05-07-2022 11:36-0400 Body surface area Derived from formula 2.47 m2 Avi Lauren Hoy Work Phone: [facility] 250 DO Work Phone: 05-07-2022 11:36-0400 Body weight 128.37 kg Avi Lauren Hoy Work Phone: [facility] 250 DO Work Phone: 05-07-2022 11:36-0400 Diastolic blood pressure 72 mm[Hg] Avi Lauren Hoy Work Phone: [facility] 250 DO Work Phone: 05-07-2022 11:36-0400 Heart rate 66 /min Avi Lauren Hoy Work Phone: [facility] 250 DO Work Phone: 05-07-2022 11:36-0400 Systolic blood pressure 110 mm[Hg] Avi M Hoy Work Phone: [facility] 250 DO Work Phone: Encounters Encounter Date Encounter Type Care Provider Facility Start: 08-16-2024 End: 08-16-2024 Bamboo flowsheet Car Cuellar PA Work Phone: [facility] Start: 08-16-2024 End: 08-16-2024 Bamboo flowsheet Car Cuellar PA Work Phone: [facility] Start: 08-16-2024 End: 08-16-2024 Postop follow up visit related to original px Car Cuellar PA Work Phone: [facility] Comment on above: S/P left knee arthro scopy (Primary Dx) Start: 08-16-2024 End: 08-16-2024 ambulatory CAR CUELLAR Not Available Start: 07-28-2024 End: 07-28-2024 Refill Corona Peng NP Work Phone: [facility] Comment on above: Post-op pain (Primar y Dx) Start: 07-20-2024 End: 07-20-2024 ambulatory Rell ADAMSON Facility:[facility] Start: 07-20-2024 End: 07-20-2024 Patient encounter procedure Rell ADAMSON [facility] Start: 07-19-2024 End: 07-19-2024 ambulatory MARIA E KHLOE Not Available Start: 07-08-2024 End: 07-08-2024 ambulatory CAR CUELLAR Not Available Start: 07-05-2024 ambulatory Rell VALENCIAGia Facility: [facility] Start: 06-21-2024 End: 06-21-2024 ambulatory ELIAS EDEN Not Available Start: 06-11-2024 End: 06-11-2024 ambulatory [facility] Start: 05-10-2024 End: 05-10-2024 ambulatory ELIAS EDEN Not Available Start: 2023 End: 2023 ambulatory BILAL CHINA BUTT Facility:[facility] Start: 2023 End: 2023 Office outpatient new 30 minutes Juan R Bey MD Work Phone: [facility] Comment on above: Meralgia paresthetic a of left side (Primary Dx); Chronic midline low back pain without sciatica Start: 08-01-2023 End: 08-01-2023 ambulatory Darren Harris BOARD MACHINE SET UP OPERATOR.LEAD INVESTIGATOR Work Phone: [facility] Comment on above: Dr chong Cut me open Start: 07-01-2023 End: 07-01-2023 ambulatory NIKOLAY CAMP Facility:[facility] Start: 06-26-2023 Telephone encounter Nikolay Camp DO Work Phone: [facility] Comment on above: Preparations For Pro cedures (Pre-injection instructions) Start: 06-19-2023 Orders Only Nikolay hall DO Work Phone: Neurology Comment on above: Lumbar radiculopathy (Primary Dx); Displacement of lumbar intervertebral disc without myelopathy Start: 06-02-2023 End: 06-03-2023 ambulatory DARREN HARRIS Facility:[facility] Start: 06-02-2023 End: 06-02-2023 Patient encounter procedure Darren Harris BOARD MACHINE SET UP OPERATOR.LEAD INVESTIGATOR Work Phone: [facility] Comment on above: Radiculopathy, lumba r region (Primary Dx); Lumbar disc herniation Start: 05-13-2023 Office outpatient vi sit 25 minutes Avi Cervantes Work Phone: [facility] 250 DO Work Phone: Start: 05-13-[address] Reilly Nelson II Facility: Start: 05-06-2023 Chart abstracting None (Historical) Neurology Start: 12-16-2022 Rx Renewal Avi M Hoy Work Phone: [facility] 250 DO Work Phone: Start: 07-17-2022 End: 07-17-2022 ambulatory Bijan Betts Jr Facility:[facility] Start: 07-17-2022 End: 07-17-2022 Departed Referred MD Avi Cervantes Work Phone: [facility] [address] Start: 05-07-2022 Office outpatient vi sit 25 minutes Avi Cervantes Work Phone: [facility] 250 DO Work Phone: Start: 01-03-[address] AVI CERVANTES Facility :[facility] Start: 12-21-2021 Encounter for genera l adult medical examination without abnormal findings DR AVI CERVANTES [facility] Start: 12-20-2021 End: 12-21-[address] AVI CERVANTES Facility:[facility] Start: 12-20-2021 End: 12-21-2021 Encounter for general adult medical examination without abnormal findings DR AVI CERVANTES Facility:[facility] Start: 12-10-2021 Rx Renewal Reilly mcmahon MD Work Phone: [facility] 250 DO Work Phone: Procedures Date Procedure Procedure Detail Performing Clinician Start: 07-17-2022 Radiologic examinati on of knee MD Avi Cervantes Work Phone: Start: 12-20-[address] RONDA CERVANTES Comment on above: Performed By: #### P [facility] #### [facility] [address] [place] [address] Dr. Conor Chan Start: 06-09-2020 Total colonoscopy Chaz Nelson MD Work Phone: Start: 07-02-2019 End: 07-02-2019 Colonoscopy Darren Harris BOARD MACHINE SET UP OPERATOR.LEAD INVESTIGATOR Work Phone: Cardiac catheterization Will renetta Nelson MD Work Phone: Cardiac catheterization Jorge aegia NILGia Cholecystectomy Reilly miranda MD Work Phone: Cholecystectomy Rell ADAMSON Nasal septoplasty Rell MORALEZ Plan of Treatment Date Care Activity Detail Author Start: 07-02-2029 Screening for malign ant neoplasm of colon [facility] Start: 12-20-2026 PROSTATE CANCER SCREENING DISCUSSION PROSTATE CANCER SCREENING DISCUSSION [facility] Start: 08-16-2024 End: 08-16-2024 Patient encounter procedure 08/16/2024 10:00 AM EDT Office Visit [facility] [address] [place] [id number] Car Cuellar, PA [address] [place] [address] S/P left knee arthroscopy (Primary Dx) [facility] Comment on above: S/P left knee arthro scopy (Primary Dx) Start: 08-12-2024 End: 08-12-2024 Patient encounter procedure 08/12/2024 9:00 AM EDT Office Visit [facility] [address] [place] [address] Car Cuellar, PA [address] [place] [address] [facility] Start: 07-29-2024 End: 07-29-2024 Patient encounter procedure 07/29/2024 10:45 AM EDT Procedure Visit [facility] Jr. Elias Thomas DO [address] [place] [address] [facility] Start: 06-27-2024 Influenza vaccination Influenza Vacc ine (#1) [facility] Start: 06-27-2023 Influenza vaccination [facility] Start: 05-13-2023 FUV, Provider: Reilly Nelson, Status: Pen, Time: 11:10 AM FUV, Provider: Reilly Nelson, Status: Jus, Time: 11:10 AM [facility] 250 DO Work Phone: Start: 10-27-2022 DEPRESSION ASSESSMENT DEPRESSION ASS ESSMENT [facility] Start: 05-17-2022 COVID-19 VACCINE (6 - Pfizer series) COVID-19 VACCINE (6 - Pfizer series) [facility] Start: 07-20-2022 FUV, Provider: Reilly Nelson, Status: Pen, Time: 2:00 PM FUV, Provider: Reilly Nelson, Status: Pen, Time: 2:00 PM -[facility] 250 DO Work Phone: Start: 07-02-2020 Colonoscopy COLONOSCOPY [facility] Start: 07-02-2020 COLORECTAL CANCER SCREENING COLORECTAL CANCER SCREENING [facility] Start: 2016 Prostate Cancer Screening Discussion Prostate Cancer Screening Discussion [facility] Start: 2011 SHINGRIX VACCINE (1 of 2) SHINGRIX VACCINE (1 of 2) [facility] Start: 2006 COLOGUARD (FIT-DNA) COLOGUARD (FIT-D NA) [facility] Start: [address] COLONOGRAPHY [facility] Start: 2006 DIABETES SCREEN DIABETES SCREEN [facility] Start: 2006 Diabetes Screening Diabetes Screenin g [facility] Start: 2006 FECAL OCCULT BLOOD FECAL OCCULT BLOO D [facility] Start: 2006 SIGMOIDOSCOPY SIGMOIDOSCOPY [facility] Start: 1996 Lipid 1996 panel - S hayden or Plasma Lipid Screening [facility] Start: 1996 LIPID SCREEN LIPID SCREEN [facility] Start: 1980 Urine microalbumin profile [facility] Start: 1979 [facility] Start: 1979 HIV SCREENING HIV SCREENING [facility] Start: 1961 Screening for malign ant neoplasm of colon [facility] End: 09-02-2024 Radex spine lumbosacral minimum 4 views XR LUMBAR MOTION 4V AP/LAT/ FLEX/EXT Radiology Routine Meralgia paresthetica of left side 1 Occurrences starting 2023 until 09/02/2024 [facility] Work Phone: Comment on above: 1 Occurrences starti ng 2023 until 09/02/2024 SPINE INTERVENTION PROCEDURE SPINE INTERVENTION PROCEDURE Procedures Routine Radiculopathy, lumbar region Lumbar disc herniation Ordered: 06/02/2023 [facility] Work Phone: Comment on above: Ordered: 06/02/2023 [facility] Immunizations Immunization Date Immunization Notes Care Provider Deepa rehman 09-12-2023 influenza virus vacc ine, unspecified formulation Rell SNOW [facility] 10-14-2022 Pfizer COVID-19 Vac Bivalent 30 MCG/0.3ML Intramuscular Suspension Avi Cervantes Work Phone: [facility] 10-03-2022 influenza, injectabl e, quadrivalent, preservative free Avi Aguilar Hosvetlana Work Phone: [facility] 250 DO Work Phone: 10-03-2022 influenza virus vacc ine, unspecified formulation Darren Harris APRN.LEAD INVESTIGATOR Work Phone: [facility] 03-22-2022 Comirnaty 30 MCG/0.3 ML Intramuscular Suspension Avi Cervantes Work Phone: [facility] 250 DO Work Phone: 03-22-2022 Moderna COVID-19 Vac cine 100 MCG/0.5ML Intramuscular Suspension Avi Cervantes Work Phone: [facility] Comment on above: Series: 03-22-2022 SARS-CoV-2 mRNA (ltvxljfabfv-eegt-swnakm e) vaccine Rell VALENCIAGia [facility] 03-22-2022 zoster vaccine recombinant Avi Cervantes Work Phone: [facility] 250 DO Work Phone: 09-03-2021 Pfizer-BioNTech COVI D-19 Vacc 30 MCG/0.3ML Intramuscular Suspension Avi Cervantes Work Phone: [facility] 08-25-2021 influenza virus vacc ine, unspecified formulation Rell ADAMSON [facility] 08-25-2021 influenza, injectabl e, quadrivalent, preservative free Avi Cervantes Work Phone: [facility] 250 DO Work Phone: 08-25-2021 zoster vaccine recombinant Avi Cervantes Work Phone: [facility] 250 DO Work Phone: 02-13-2021 Pfizer-BioNTech COVI D-19 Vacc 30 MCG/0.3ML Intramuscular Suspension Avi Cervantes Work Phone: [facility] 01-20-2021 SARS-CoV-2 (COVID-19 ) mRNA BNT-162b2 vax Rell VALENCIAL [facility] 01-13-2021 Pfizer-BioNTech COVI D-19 Vacc 30 MCG/0.3ML Intramuscular Suspension Avi Cervantes Work Phone: [facility] 12-23-2020 Pfizer-BioNTech COVI D-19 Vacc 30 MCG/0.3ML Intramuscular Suspension Avi Cervantes Work Phone: [facility] 08-28-2020 influenza, injectabl e, quadrivalent, preservative free Avi Cervantes Work Phone: [facility] 250 DO Work Phone: 08-28-2020 influenza virus vacc ine, unspecified formulation Juan R Bey MD Work Phone: [facility] Payers Date Payer Category Payer Self-pay [id number] [id number] 2021 Private Health Insurance CHRISTINA EWING POS [id number] 2021-Present [phone] [address] [place] [address] POS [id number] 2007 Managed Care O (unspecified) [id number] 1961 Unknown [id number] 1961 Unknown [id number] 1961 Unknown [id number] 1961 Unknown [id number] 1961 Unknown [id number] .[id number] 1961 Unknown [id number] .[id number] 1961 Unknown [id number] .[id number] 1961 Unknown [id number] .[id number] 1961 Unknown [id number] .[id number] 1961 Unknown [id number] 1959 Private Health Insurance [id number] 1959 Self-pay [id number] Unknown Unknown [facility] [id number] Unknown [id number] Social History Date Type Detail Facility Start: 06-02-2023 End: 07-08-2024 Consumes alcohol Consumes alcohol [facility] Comment on above: socially; occasional; Start: 09-28-2020 End: 05-10-2024 Tobacco smoking status LAIS Never smoked tobacco (finding) [facility] Start: 1960 Sex Assigned At Male F [facility] Tobacco smoking stat us NHIS Tobacco smoking consumption unknown [facility] Start: 1960 Sex Assigned At Not on file [facility] Start: 06-02-2023 End: 07-08-2024 Gender identity Not on file [facility] Start: 06-02-2023 End: 05-10-2024 Tobacco use and exposure Smokeless tobacco non-user [facility] National Score (1-10 0), lower number is lower risk 61 [facility] Start: 07-28-2023 Gender identity Identifies as male gender (finding) [facility] Start: 07-28-2023 Sexual orientation Heterosexual (fin ding) [facility] Start: 07-08-2024 End: 08-09-2024 Alcoholic beverage intake Current drinker of alcohol (finding) [facility] Start: 05-10-2024 Alcohol Comment 1/WK [facility] Functional Status Date Assessment Result Facility 07-20-2024 Functional Status N/A [facility] Clinical Notes 05-06-2023 to 08-16-2024 Car Cuellar, [...] requiring urgent evaluation. documented in this encounter [facility] 08-16-2024 Instructions ANKITA Stapleton - 08/16/2024 10:00 [...] than 10 mins documented in this encounter [facility] 07-28-2024 Telephone encounter Note Post op pain rx. PDMP reviewed [facility] 07-28-2024 Miscellaneous Notes Post op pain rx. PDMP reviewed documented in this encounter [facility] 07-20-2024 Note General Surgery Offi ce/Clinic Note [...] tab(s), Oral, Ivy (more content not included)... [facility] Comment on above: Result Comment: Elec tronically [...] without additional cardiac (more content not included)... [facility] 2023 Note HNO ID: [id number] Author: Juan R Bey MD Service: ? [...] issues. 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 [facility] 2023 Note HNO ID: [id number] Author: Bossman Saunders Service: ? Author Type: [...] opioids Medications: See medication reconciliation list in [facility] MEDICATIONS: Gabapentin, [place], Tylenol Have you ever seen a pain [...] living activities? No Bossman Escoto [facility] 2023 History of Presen t illness [...] issues. 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 Author Type: Nurse Practitioner Type: Progress Notes Filed: 08/01/2023 1:30 PM Note Text: SPINE SURGERY ESTABLISHED VISIT This is a virtual visit using [employer] Video Visit. It required patient-provider interaction for the medical decision making as documented below. DATE OF SERVICE: 08/01/2023 DATE OF LAST VISIT: 06/02/2023 SUBJECTIVE: HPI:Kim Nichols is a 62 year old male presenting via virtual vist s/p Left L5 transforaminal epidural steroid injection on 07/01/[address] Camp. [place] great initially and for the first few days after injection, symptoms returned shortly after. Patient has increased his Gabapentin 300 mg from BID to TID and is feeling good today. 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 SIGNATURE: Darren Harris APRN.KIRILL PATIENT NAME: Kim Nichols DATE: August 01, 2023 TIME: 12:53 PM PAGER: [facility] 06-26-2023 Miscellaneous Notes Phoned patient and message left for Kim to confirm appointment for Kim Nichols for spine procedure on 07/01/2023. Patient notified that [facility] will call patient the night before with the time to arrive for injection. Patient verbalized understanding of the following: -Provided education on spine procedure and answered questions related to spine injection procedure. -Foreign Language Professor is needed to drive patient home. -NPO [...] to report. Diabetic: No Patient given number [phone], spine injections schedulers, if there is any [...] POST INJECTION INSTRUCTIONS documented in this encounter [facility] 06-02-2023 Note HNO ID: [id number] Author: Darren Harris APRN.LEAD INVESTIGATOR Service: ? Author Type: Nurse Practitioner Type: [...] with him pain. He also is prescribed Anamosa for breakthrough pain which he only takes [...] Normal. DATA REVIE (more content not included)... [facility] 06-02-2023 History of Presen t illness [...] with him pain. He also is prescribed Anamosa for breakthrough pain which he only takes [...] which included preparing to see the patient, [id number] patient care, completing clinical documentation, obtaining and/or reviewing separately obtained history, performing a medically appropriate examination, counseling and educating the patient/family/caregiver, independently interpreting results (not separately reported), and communicating results to the patient/family/caregiver. SIGNATURE: Darren Harris APRN.CNP PATIENT NAME: Kim Nichols DATE: June 02, 2023 TIME: 1:57 PM PAGER: documented in this encounter [facility] 05-14-2023 Note HNO ID: [id number] Author: Ember Delatorre PA-C Service: ? Author Type: Physician [employer] Tier Type: Progress Notes Filed: 05/14/2023 4:17 PM Note Text: Per Triage: Kim Nichols is a 62 year old male that requests evaluation of lumbar spine. Per review, they have symptoms of back and LLE pain. Positive for numbness. CMT: Medication: Gabapentin, Tylenol, Anamosa Studies (Reports unless indicated) MRI Lumbar: L4/5 moderate left foramen narrowing which may contribute to patient's symptoms 2. L5/S1 disc protrusion without significant canal or foramen narrowing. Disposition: Please schedule with surgical SANDY. Consider if injection is appropriate or on effective dose of Neurontin. Also see if symptoms correlate with imaging. [facility] 05-14-2023 History of Presen t illness Narrative Per Triage: Kim Nichols is a 62 year old male that requests evaluation of lumbar spine. Per review, they have symptoms of back and LLE pain. Positive for numbness. CMT: Medication: Gabapentin, Tylenol, Anamosa Studies (Reports unless indicated) MRI Lumbar: L4/5 moderate left foramen narrowing which may contribute to patient's symptoms 2. L5/S1 disc protrusion without significant canal or foramen narrowing. Disposition: Please schedule with surgical SANDY. Consider if injection is appropriate or on effective dose of Neurontin. Also see if symptoms correlate with imaging. Patient name: Kim Nichols Are you being referred by a [facility] Spine Health Provider or Pain Management Provider at [facility]? No If answer is YES [...] facility where the MRI/CT/myelogram was completed: [facility] [address] [place] [address] MRI/CT/myelogram viewable in Epic: No If not, please provide [phone] to fax in imaging reports for review. [...] Additional Comments Hydrocodone documented in this encounter [facility] 05-06-2023 Note HNO ID: [id number] Author: Mauricio Kelley Service: ? Author Type: ? Type: Progress Notes Filed: 05/14/2023 4:17 PM Note Text: Patient name: Kim Nichols Are you being referred by a [facility] for Spine Health Provider or Pain Management Provider at [facility]? No If answer is YES [...] facility where the MRI/CT/myelogram was completed: [facility] [address] [place] [address] MRI/CT/myelogram viewable in Epic: No If not, please provide [phone] to fax in imaging reports for review. [...] the surgery was completed: Additional Comments Hydrocodone [facility] Evaluation + Plan note No data available for this section [facility] Evaluation note No assessment inform ation available [facility] Work Phone: Evaluation note Diagnosis Radiculopathy, lumbar region- Primary Thoracic or lumbosacral neuritis or radiculitis, unspecified Lumbar disc herniation Displacement of lumbar intervertebral disc without myelopathy [facility] Diagnosis Lumbar radiculopathy- Primary Thoracic or lumbosacral neuritis or radiculitis, unspecified Displacement of lumbar intervertebral disc without myelopathy [facility] Diagnosis Meralgia paresthetica of left side- Primary Meralgia paresthetica Chronic midline low back pain without sciatica [facility] Diagnosis Post-op pain- Primary Other acute postoperative pain [facility] S/P left knee arthroscopy- [...] to their favorable impact on blood pressure andcholesterol.-[facility] [place] [employer] DO Work Phone: History of Present illness [...] to call if they arise or occur. [facility] [employer] DO Work Phone: History of Present illness [...] to call if they arise or occur. [facility] 250 DO Work Phone: Hospital Discharge instructions No data available for this section [facility] [employer] Progress note No data available for this section [facility] [employer] Reason for referral (narrative)* Diagnostic Procedure Only (Routine) - Pending Review Specialty Diagnoses / Procedures Referred By Erlinda mao Referred To Contact XR IMAGING Diagnoses Meralgia paresthetica of left side Procedures XR LUMBAR MOTION 4V AP/LAT/ FLEX/EXT RADEX SPINE LUMBOSACRAL MINIMUM 4 VIEWS Juan R Bey MD [address] [place] [address] [place] [address] Referral ID Status Reason Start Date Expiration Date Visits Requested Visits Authorized [id number] Pending Review Auto-Generat ed Referral 2023 09/02/2024 1 1 [facility] Summary Purpose Family History No Family History [...] Directives No August 12:49pm Chief Complaint KIM MATACOLTON is being seen for an annual follow-up of.KIM NICHOLS is being seen for an annual follow-up of.KIM JESSI is being seen for an annual follow-up [...] content) DATE CREATED AUTHOR 01/05/2022 [facility] DATE CREATED AUTHOR AUTHOR'S CE ATCHARU 07/28/2022 [facility] DATE CREATED AUTHOR AUTHOR'S ORGANIZ ATION [facility]/14[facility]20[facility] DATE CREATED AUTHOR AUTHOR'S ORGANIZ ATION 05/14/2023 [employer] DATE CREATED AUTHOR AUTHOR'S ORGANIZ ATION 2023 [facility] DATE CREATED AUTHOR AUTHOR'S ORGANIZ ATION 08/05/2023 [facility] DATE CREATED AUTHOR AUTHOR'S ORGANIZ ATION 06/24/2024 [facility] DATE CREATED AUTHOR AUTHOR'S ORGANIZ ATION 07/22/2024 Arsh Wetzel [facility] DATE CREATED AUTHOR AUTHOR'S ORGANIZ ATION 08/17/2024 [facility] Care Teams (unrecognized sec tion and content) Team Status: Inactive Member Role Status Dates Avi Cervantes MD Primary Care Provider Active Bijan Betts Jr, DO Attending Provider Active Team Status: Active Member Role Status Dates Avi Cervantes MD Primary Care Provider Active [employer] Relationship Specialty Start Date End Date Avi Cervantes MD [address] [place] [address] Referring Family Medicine 04/24/23 [employer] Relationship Specialty Start Date End Date Avi Cervantes MD [address] [place] [address] Referring Family Medicine 04/24/23 [employer] Relationship Specialty Start Date End Date Avi Cervantes MD [address] [place] [address] Referring Family Medicine 04/24/23 [employer] Relationship Specialty Start Date End Date Avi Cervantes MD [address] [place] [address] PCP - General Family Medicine 06/25/23 Avi Cervantes MD [address] [place] [facility] [address] Referring Family Medicine 04/24/23 [employer] Relationship Specialty Start Date End Date Avi Cervantes MD [address] [place] [facility] [place] [address] PCP - General Family Medicine 06/25/23 Avi Cervantes MD [address] [place] [facility] [place] [address] Referring Family Medicine 04/24/23 [employer] Relationship Specialty Start Date End Date Avi Cervantes MD [address] [place] [facility] [address] PCP - General Family Medicine 06/25/23 Avi Cervantes MD [address] [place] [facility] [place] [address] Referring Family Medicine 04/24/23 [employer] Relationship Specialty Start Date End Date Avi Cervantes MD [address] [facility] [place] [address] PCP - General 05/05/24 [employer] Relationship Specialty Start Date End Date Avi Cervantes MD [address] [facility] [place] [address] PCP - General 05/05/24 [employer] Relationship Specialty Start Date End Date Avi Cervantes MD [address] [facility] [place] [address] PCP - General 05/05/24 Goals (unrecognized section [...] or prosecute any alcohol or drug abuse patient.[facility] the event this information is protected by the Federal Confidentiality of Alcohol and Drug Abuse Patient Records regulations: The Federal rules restrict any use of the information to criminally investigate or prosecute any alcohol or drug abuse patient.[facility] the event this information is protected by the Federal Confidentiality of Alcohol and Drug Abuse Patient Records regulations: The Federal rules restrict any use of the information to criminally investigate or prosecute any alcohol or drug abuse patient.[facility] the event this information is protected by the Federal Confidentiality of Alcohol and Drug Abuse Patient Records regulations: The Federal rules restrict any use of the information to criminally investigate or prosecute any alcohol or drug abuse patient.[facility] the event this information is protected by the Federal Confidentiality of Alcohol and Drug Abuse Patient Records regulations: The Federal rules restrict any use of the information to criminally investigate or prosecute any alcohol or drug abuse patient.[facility] Center[facility] the event this information is protected by the Federal Confidentiality of Alcohol and Drug Abuse Patient Records regulations: The Federal rules restrict any use of the information to criminally investigate or prosecute any alcohol or drug abuse patient.[facility] Reason for Visit (unrecogniz ed section and [...] BE BASED ON THE PRIMARY CLINICAL RECORDS. [employer] [facility]. provides no warranty or guarantee of the accuracy or completeness of information in this document.
[2024-08-25 06:55] VITALS: BP 132/89; PULSE 95; TEMP 36.1; O2SAT 95; BMI 35.4
[2024-08-25] MEDS: 0.9 % SODIUM CHLORIDE 500 ML 50 ML IV (07:19)
[2024-08-25 08:29] VITALS: BP 108/68; PULSE 66; TEMP 36.7; O2SAT 94
[2024-08-25 08:46] VITALS: BP 126/88; PULSE 68; O2SAT 96
[2024-08-25 08:59] VITALS: BP 120/82; PULSE 64; O2SAT 94
== END 2024-08-25 08:59 | disposition home or self-care (01) ==
PROVIDERS: PCP Family Medicine; Visit Provider Surgery
PROC: (CPT 00813; principal; 2024-08-25 07:55)
DX: K21.9 Gastro-esophageal reflux disease without esophagitis (principal); K44.9 Diaphragmatic hernia without obstruction or gangrene; K57.30 Diverticulosis of large intestine without perforation or abscess without bleeding; Z83.719 Family history of colon polyps, unspecified; I25.10 Atherosclerotic heart disease of native coronary artery without angina pectoris; I48.91 Unspecified atrial fibrillation; Z79.01 Long term (current) use of anticoagulants; I10 Essential (primary) hypertension; G47.33 Obstructive sleep apnea (adult) (pediatric); E78.5 Hyperlipidemia, unspecified
CPT/HCPCS: 00813; 43239; 45378; J2704

== ENCOUNTER 2024-12-13 12:11 | Outpatient (OUT) | payer OTHER, SELFPAY ==
--- OUTSIDE RECORDS SUMMARY | 2024-12-13 12:27 | XMS_ITS | CCD ---
Author Organization [facility] CliniSyak Care Team Providers Care Data Network Architect Name Role Phone Unavailable Unavailable DR AVI YEPEZ Attending Unavailable MARLENI, DR CÁRDENAS Admitting Unavailable MARLENI, DR CÁRDENAS Attending Unavailable MARLENI, DR CÁRDENAS Admitting Unavailable MARLENI, DR CÁRDENAS Consulting Unavailable WEST, DR OSCAR Ingram Consulting Unavailable Avi Yepez Unavailable MD Avi Yepez Primary Care Provider [phone] DO Bijan Betts Jr Attending Provider Leslie DAVALOS, Dr. Reilly Hernandez Referring Unavailable Leslie DAVALOS, Dr. Reilly Hernandez Attending Unavailable Dr. Avi Yepez Primary Care Unavail able Avi Yepez MD Unavailable Avi Yepez MD Primary Care Provider [phone] DARREN ELIZABETH Attending Unavailable AVI YEPEZ Primary Care Unavailable DARREN ELIZABETH Attending Unavailable NIKOLAY CAMP Admitting Unavailable NIKOLAY CAMP Attending Unavailable NIKOLAY CAMP Referring Unavailable JUAN R LING Attending Unavailable AVI YEPEZ Primary Care Unavailable Avi Yepez Primary Care Physician Avi Yepez MD Primary Care Provider MD Avi Yepez Primary Care Provider MD Rell Adamson Attending Provider JR. CHANCE, ELIAS Saucedo Attending Unavailfarhad THOMAS JR., GEORGE C Referring Unavaila amy THOMAS JR., ELIAS Saucedo Attending Unavaila CAR Mack Attending Unavailable MARIA E PECK Attending Unavailable CAR CUELLAR Referring Unavailable CAR CUELLAR Attending Unavailable CAR CUELLAR Attending Unavailable Avi Yepez Primary Care Unavailable Rell Adamson Attending Unavailable Rell Adamson Admitting Unavailable Rell ADAMSON Attending Unavailable Rell ADAMSON Attending Unavailable Rell ADAMSON Attending Unavailable RICHARD BENITEZ Attending Unavailable RICHARD BENITEZ Attending Unavailable Allergies Allergy Classification Reported Allergen(s) Allergy Type Date of Onset Reaction(s) Facility (20 sources) Amoxicillin; Translations: [amoxicillin] Drug Allergy 0 Hives, Rash [facility] (1 source) Amoxicillin Drug Allergy [facility] Repository (1 source) traMADol Drug Allergy [facility] Repository (3 sources) Penicillin; Translations: [penicillin] Drug Allergy Weal (disorder) [facility] [place] (16 sources) traMADol; Translations: [TRAMADOL] Drug Allergy 4 Unknown [facility] Healthcare (1 source) Amoxicillin Drug Allergy 0 [facility] Repository Medications Current Medications Medication Drug Class(es) Dates Sig (Normalized) Sig (Original) acetaminophen 325 mg / HYDROcodone bitartrate 5 mg oral tablet (14 sources) Opioid Agonist Start: 07-08-2024 take 1 tablet by mouth twice daily as needed for pain Pleasant Unity 325 mg-5 mg oral tablet 1 tab(s), Oral, BID as needed for pain, Refill(s) 0 Start Date: 07/08/24 Status: Ordered Start: 03-29-2024 End: 06-21-2024 take 1 tablet by mouth every twelve hours HYDROcodone-acetaminophen (Pleasant Unity) 5-325 MG tablet Take 1 tablet by mouth every 12 (twelve) hours 03/29/2024 06/21/2024 Discontinued (Therapy completed) Start: 09-26-2020 End: 07-31-2024 take 1 tablet by mouth every six hours for pain HYDROcodone-acetaminophen (Pleasant Unity) 5-325 MG tablet Indications: Post-op pain Take 1 tablet by mouth every 6 (six) hours if needed for severe pain for up to 3 days 12 tablet 07/28/2024 07/31/2024 Active Pleasant Unity 5-325 MG T ABS TAKE 1 TABLET EVERY 4 TO 6 HOURS NEEDED. Quantity: 0 Refills: 0 Ordered: 13-May-2023 DO Active Comment on above: Take 1 tablet by zainab th every 6 hours as needed. apixaban 5 mg oral tablet (17 sources) Factor Xa Inhibitor Start: 05-08-2024 take 1 tablet by mouth twice daily Eliquis 5 mg oral tablet 5 mg = 1 tab(s), Oral, BID, Refills(s) 0 Start Date: 07/08/24 Status: Ordered ascorbic acid 1000 mg oral tablet (2 sources) Vitamin C Start: 09-26-2020 take 1 g by mouth once daily Ascorbic Acid (Vitamin C) (Vitamin C) 1,000 mg Tablet Active 1 GM PO Daily September 26, 2020 1:00am aspirin 81 mg delayed release oral tablet (20 sources) Platelet Aggregation Inhibitor, Nonsteroidal Anti-inflammatory Drug Start: 09-26-2020 take 1 tablet by mouth once daily aspirin 81 mg Oral EC Tab 81 mg = 1 tab(s), Oral, Daily, Refills(s) 0 Start Date: 07/08/24 Status: Ordered aspirin (Vazalor e) 81 MG capsule Take by mouth Active Comment on above: Take by mouth. atorvastatin 40 mg oral tablet (2 sources) HMG-CoA Reductase Inhibitor Start: take 40 mg by mouth once daily Atorvastatin Active 40 MG PO Daily September 26, 2020 1:00am carvedilol 6.25 mg oral tablet (2 sources) alpha-Adrenergic Pina, beta-Adrenergic Pina Start: take 6.25 mg by mouth twice daily Carvedilol Active 6.25 MG PO Twice daily September 26, 2020 1:00am chlorthalidone 25 mg oral tablet (20 sources) Thiazide-like Diuretic Start: take 1 tablet by mouth once daily chlorthalidone 25 mg Tab 25 mg = 1 tab(s), Oral, Daily, Refills(s) 0 Start Date: 07/08/24 Status: Ordered Comment on above: TAKE 1 TABLET BY ZAINAB TH EVERY DAY IN THE MORNING WITH FOOD FOR 90 DAYS diclofenac 35 mg oral capsule (15 sources) Nonsteroidal Anti-inflammatory Drug Diclofenac 35 MG capsule Active fexofenadine hydrochloride 180 mg oral tablet (2 sources) Histamine-1 Receptor Antagonist Start: take 180 mg by mouth once daily Fexofenadine Active 180 MG PO Daily September 26, 2020 1:00am fluocinonide 0.5 mg/ml topical cream (2 sources) Corticosteroid Start: Fluocinonide Active 1 APPLIC TOPICAL Daily September 26, 2020 1:00am gabapentin 300 mg oral capsule (20 sources) Anti-epileptic Agent Start: take 1 capsule by mouth three times daily gabapentin 300 mg Cap 300 mg = 1 cap(s), Oral, TID, Refills(s) 0 Start Date: 07/08/24 Status: Ordered Start: 05-27-2023 take 1 capsule by mo ut twice daily gabapentin (NEURONTIN) 300 mg capsule Take 300 mg by mouth twice daily. 0 05/27/2023 Active take 1 capsule by mo uth twice daily Gabapentin 300 MG Oral Capsule TAKE 1 CAPSULE TWICE DAILY. Quantity: 0 Refills: 0 Ordered: 13-May-2023 DO Active Comment on above: Take 300 mg by mouth twice daily. metoprolol tartrate 25 mg oral tablet (17 sources) beta-Adrenergic Pina Start: take 1 tablet by mouth twice daily Metoprolol tartrate 25 mg Tab 25 mg = 1 tab(s), Oral, BID, Refills(s) 0 Start Date: 07/08/24 Status: Ordered Multivitamin preparation (2 sources) Start: take 1 tablet by mouth once daily in the morning Multivitamin Active 1 TAB PO Every morning September 26, 2020 1:00am omeprazole 40 mg delayed release oral capsule (15 sources) Proton Pump Inhibitor Start: End: take 1 capsule by mouth once daily omeprazole 40 mg Cap-DR 40 mg = 1 cap(s), Oral, Daily, Refills(s) 0 Start Date: 07/20/24 Status: Ordered pantoprazole 40 mg delayed release oral tablet (15 sources) Proton Pump Inhibitor take 1 tablet by mouth before mealtime pantoprazole (ProtoNix) 40 MG EC tablet Take 40 mg by mouth in the morning. Take before meals. Do not crush, chew, or split.. Active rosuvastatin calcium 20 mg oral tablet (20 sources) HMG-CoA Reductase Inhibitor Start: take 1 tablet by mouth once daily rosuvastatin 20 mg Tab 20 mg = 1 tab(s), Oral, Daily, Refills(s) 0 Start Date: 07/08/24 Status: Ordered sildenafil 50 mg oral tablet (12 sources) Phosphodiesterase 5 Inhibitor Start: 023 End: 024 take 1 tablet by mouth once daily sildenafil (Viagra) 50 MG tablet take 1 tablet by mouth once daily if needed for 10 days 07/14/2023 08/16/2024 Discontinued sucralfate 1000 mg oral tablet (15 sources) Aluminum Complex sucralfate (Carafate) 1 g [...] 30 Refills: 1 Ordered: 07-May-2022 DO Active potassium chloride 20 meq extended release oral tablet (17 sources) Start: 05-08-2024 take 1 tablet by mouth twice daily potassium chloride 20 mEq ER Tab 20 mEq = 1 tab(s), Oral, BID, Refills(s) 0 Start Date: 07/08/24 Status: Ordered Problems Active Problems Problem Classification Problem Date Documented Date Episodic/Chronic Abdominal hernia (1 source) Diaphragmatic hernia; Translations: [Diaphragmatic hernia without obstruction or gangrene] Onset: 09-08-2024 Episodic Cardiac dysrhythmias (4 sources) Atrial fibrillation; Translations: [Unspecified atrial fibrillation] Onset: 05-07-2024 07-08-2024 Chronic Coronary atherosclerosis and other heart disease (6 sources) Coronary arteriosclerosis; Translations: [Coronary atherosclerosis of unspecified type of vessel, chevak or graft] 07-08-2024 Chronic Diabetes mellitus without complication (1 source) Other abnormal glucose; Translations: [OTHER ABNORMAL GLUCOSE] Onset: 12-21-2021 Episodic Disorders of lipid metabolism (7 sources) Hyperlipidemia; Translations: [Other and unspecified hyperlipidemia] Onset: 05-28-2024 07-08-2024 Chronic Diverticulosis and diverticulitis (4 sources) Diverticular disease; Translations: [Diverticula of intestine] Onset: 09-08-2024 07-08-2024 Chronic Esophageal disorders (10 sources) Gastroesophageal reflux disease; Translations: [Esophageal reflux] Onset: 07-20-2024 Chronic Essential hypertension (6 sources) Benign essential hypertension; Translations: [Benign essential hypertension] 07-08-2024 Chronic Headache; including migraine (2 sources) Migraine 07-08-2024 Chronic Immunizations and screening for infectious disease (13 sources) Patient encounter status; Translations: [Other specified vaccination] Onset: 07-19-2024 07-19-2024 Episodic Joint disorders and dislocations; trauma-related (13 sources) Derangement of left knee; Translations: [Unspecified internal derangement of left knee] Onset: 07-19-2024 07-19-2024 Chronic Nonspecific chest pain (3 sources) Chest pain; Translations: [Chest pain, unspecified] Onset: 07-20-2024 Episodic Other and unspecified benign neoplasm (1 source) Benign neoplasm of stomach; Translations: [Benign neoplasm of stomach] Onset: 09-08-2024 Episodic Other and unspecified benign neoplasm (1 source) Gastric polyp 09-08-2024 Episodic Other male genital disorders (2 sources) Impotence 07-08-2024 Chronic Other nervous system disorders [...] Chronic Other nutritional; endocrine; and metabolic disorders (2 sources) Body mass index 30+ - obesity 07-20-2024 Chronic Other nutritional; endocrine; and metabolic disorders (2 sources) Obese class III 07-08-2024 Chronic Other screening for suspected conditions (not mental disorders or infectious disease) (1 source) Encounter for screening for malignant neoplasm of prostate; Translations: [ENC SCREEN MALIG NEOPLASM PROSTATE] Onset: 12-21-2021 Episodic Residual codes; unclassified (4 sources) Family history of polyp of colon; Translations: [Family history of colon polyps, unspecified] Onset: 07-20-2024 Episodic Residual codes; unclassified (4 sources) History of arthroscopy of knee joint; Translations: [Other specified postprocedural states] 08-16-2024 Episodic Spondylosis; intervertebral disc disorders; other back problems (6 sources) Prolapsed lumbar intervertebral disc; Translations: [Other intervertebral disc displacement, lumbar region] Onset: 06-02-2023 06-02-2023 Chronic Spondylosis; intervertebral disc disorders; other back problems (11 sources) Lumbar radiculopathy; Translations: [Radiculopathy, lumbar region] [...] Value Interpretation Reference Range Facility Office Visiton 09-09-2024 Follow-up visit [id number] Kim Nichols 1960 M Date Provider Department Center 09/09/2024 3848-RICHARD BENITEZ [facility] Family History Problem Relation Age of Onset Brain Aneurysm Mother Stroke Father Heart attack Sister Family Status - Relation Status Age at Mother Father Sister Level of Service:75318 MO OFFICE/OUTPATIENT ESTABLISHED LOW MDM 20 MIN Normal [facility] Ambulatory Visit Summaryon 1 11-08-2023 Ambulatory Visit Summary Ambulatory Visit Summary KIM NICHOLS :1960 Visit Date:09/08/2024 Ambulatory Visit Instructions Your Care Team Attending Physician - SNOW LANDA, Rell Marr Primary Care Physician - Avi Yepez MD This Is Your Medications List acetaminophen-hydrocodone (Pleasant Unity 325 mg-5 mg oral tablet) apixaban (Eliquis 5 mg oral tablet) aspirin (aspirin 81 mg Oral EC Tab) chlorthalidone (chlorthalidone 25 mg Tab) gabapentin (gabapentin 300 mg Cap) metoprolol (Metoprolol tartrate 25 mg Tab) omeprazole (omeprazole 40 mg Cap-DR) potassium chloride (potassium chloride 20 mEq ER Tab) rosuvastatin (rosuvastatin 20 mg Tab) Procedures Performed Colonoscopy (08/25/2024), EGD - esophagogastroduodenoscopy (08/25/2024), Colonoscopy (07/02/2019), Cardiac catheterization, Cholecystectomy, Nasal septoplasty. Medications What How Much When Instructions Unchanged acetaminophen-hydrocodone (Pleasant Unity 325 mg-5 mg oral tablet) 1 Tablets By Mouth 2 times a day as needed for as needed for pain Unchanged apixaban (Eliquis 5 mg oral tablet) 1 Tablets By Mouth 2 times a day Unchanged aspirin (aspirin 81 mg Oral EC Tab) 1 Tablets By Mouth Every day Unchanged chlorthalidone (chlorthalidone 25 mg Tab) 1 Tablets By Mouth Every day Unchanged gabapentin (gabapentin 300 mg Cap) 1 Capsules By Mouth 3 times a day Unchanged metoprolol (Metoprolol tartrate 25 mg Tab) 1 Tablets By Mouth 2 times a day Unchanged omeprazole (omeprazole 40 mg Cap-DR) 1 Capsules By Mouth Every day Unchanged potassium chloride (potassium chloride 20 mEq ER Tab) 1 Tablets By Mouth 2 times a day Unchanged rosuvastatin (rosuvastatin 20 mg Tab) 1 Tablets By Mouth Every day Allergies penicillin (Hives) Problems Ongoing - Any [...] you for choosing us for your care. [facility] General Surgery Office/Clini c Noteon 09-08-2024 General Surgery Office/Clinic Note General Surgery Office/Clinic Note Chief Complaint post operative follow up HPI Staff 14 day post operative follow up post EGD with gastric polyp biopsy and colonoscopy. Review of Systems PHQ Score Initial Depression Screen Score: 0 SCORE ROS - Provider Constitutional: no fever, no sweats, no weight loss. Eyes: no glasses, no blurred vision, no visual loss. ENMT: no dentures, no hoarseness, no swallowing difficulties, no hearing loss, no ear infection(s), no nose bleeds. Cardiovascular: normal blood pressure, no chest pain, regular heartbeat, no heart murmur. [...] been reviewed and are negative or noncontributory. Assessment/Plan 1. Hiatal hernia with GERD (K44.9: Diaphragmatic hernia without obstruction or gangrene) consider changing to Protonix daily, patient will discuss with Dr Yepez. 2. Fundic gland polyps of stomach, benign (D13.1: Benign neoplasm of stomach) from PPI 3. Sigmoid diverticulosis (K57.30: Diverticulosis of large intestine without perforation or abscess without bleeding) high fiber diet and daily fiber supplement 4. Family history of colonic polyps (Z83.719: Family history of colon polyps, unspecified) surveillance colonoscopy in 10 years, call sooner if problems/questions. Gastro-esophageal reflux disease without esophagitis (K21.9: Gastro-esophageal reflux disease without esophagitis) Follow-up No qualifying data available Problem List/Past Medical History Ongoing Atrial fibrillation Benign essential hypertension BMI 38.0-38.9,adult Chest pain due to GERD Chronic low back pain Class 3 obesity Coronary arteriosclerosis Diverticulosis Erectile dysfunction Family history of colonic polyps Fundic gland polyps of stomach, benign Gastroesophageal reflux disease Hiatal hernia with GERD Hyperlipidemia Lumbar radiculopathy Migraine Sigmoid diverticulosis Historical No qualifying data Procedure/Surgical History Colonoscopy (08/25/2024), EGD - esophagogastroduodenoscopy (08/25/2024), Colonoscopy (07/02/2019), Cardiac catheterization, Cholecystectomy, Nasal septoplasty. Medications aspirin 81 mg Oral EC Tab, 81 mg= 1 tab(s), Oral, Daily chlorthalidone 25 mg Tab, 25 mg= 1 tab(s), Oral, Daily Eliquis 5 mg oral tablet, 5 mg= 1 tab(s), Oral, BID gabapentin 300 mg Cap, 300 mg= 1 cap(s), Oral, TID Metoprolol tartrate 25 mg Tab, 25 mg= 1 tab(s), Oral, BID Pleasant Unity 325 mg-5 mg oral tablet, 1 tab(s), Oral, BID, PRN omeprazole 40 mg Cap-DR, 40 mg= 1 cap(s), Oral, Daily potassium chloride 20 mEq ER Tab, 20 mEq= 1 tab(s), Oral, BID rosuvastatin 20 mg Tab, 20 mg= 1 tab(s), Oral, Daily Allergies penicillin (Hives) Social History Alcohol Never., 09/03/2024 Substance Abuse Current. Marijuana. 1-2 times per month. Previous treatment: None., 09/03/2024 Tobacco Never (less than 100 in lifetime) Tobacco Use:. Never Smokeless Tobacco Use:., 09/08/2024 Family History Acute myocardial infarction: Sister. Aneurysm: Mother. Diabetes mellitus type 2: Father and Sister. Heart disease: Father. Immunizations Vaccine Date Status influenza virus vaccine, inactivated 09/12/2023 Recorded SARS-CoV-2 (COVID-19) [id number] 10/14/2022 Recorded influenza virus vaccine, inactivated 10/03/2022 Recorded SARSCoV2 mRNA([id number]) vac 03/22/2022 Recorded SARS-CoV-2 (COVID-19) mRNA BNT-162b2 vax 09/03/2021 Recorded influenza virus vaccine, inactivated 08/25/2021 Recorded SARS-CoV-2 (COVID-19) mRNA BNT-162b2 vax 02/13/2021 Recorded SARS-CoV-2 (COVID-19) mRNA BNT-162b2 vax 01/20/2021 Recorded SARS-CoV-2 (COVID-19) mRNA BNT-162b2 vax 01/13/2021 Recorded SARS-CoV-2 (COVID-19) mRNA BNT-162b2 vax 12/23/2020 Recorded influenza virus vaccine, inactivated 08/28/2020 Recorded [facility] Comment on above: Result Comment: Elec tronically Signed By: SNOW LANDA, Rell Marr\.br\Date and Time Signed: 09/08/24 16:32 EST Reminderson 08-26-2024 Reminders Reminders From: María Ayala LPN To: N - Clinical; Sent: 08/26/2024 11:53:39 EDT Show up: 07/26/2034 07:00:00 EDT Subject: colonoscopy recall Due Date/Time: 08/25/2034 07:00:00 EDT Reminder/Recall Patient due for screening colonoscopy 08/25/2034. [facility] Pathology Request for Lab Co rpon 08-25-2024 Pathology Request for Lab Le Normal [facility] Comment on above: Order Comment: PATHO LOGY GI SPECIMEN Result Comment: See report. Scanned copy available in EMR. PERFORMED BY: [place] [address] PATHOLOGIST PACK TRAIN DRIVER MICHAEL LEMUS M.D. Performed By: #### P ATH TO [facility] #### [address] Ambulatory Visit Summaryon 0 07-20-2024 Ambulatory Visit Summary Ambulatory Visit Summary KIM NICHOLS :1960 Visit Date:07/20/2024 Ambulatory Visit Instructions Your Diagnosis Gastroesophageal reflux disease, Chest pain due to GERD Family history of colonic polyps Chest pain, unspecified Your Care Team Attending Physician - SNOW LANDA, Rell Marr Primary Care Physician - Avi Yepez MD This Is Your Medications List Contact prescribing physician if questions or concerns acetaminophen-hydrocodone (Pleasant Unity 325 mg-5 mg oral tablet) apixaban (Eliquis [...] Medications What How Much When Instructions Unchanged acetaminophen-hydrocodone (Pleasant Unity 325 mg-5 mg oral tablet) 1 Tablets [...] you for choosing us for your care. [facility] ALL CBC WITH AUTO DIFFon BASOPHILS ABSOLUTE AUTO 0.0 [facility] Basophils/100 WBC (Bld) 0.5 % 0.2 - 2.0 % [facility] Eosinophils/100 WBC (Bld) 3.0 % 0.9 - 7.0 % [facility] Erythrocyte distribution width (RBC) [Ratio] 13.9 % 11.0 - 15.0 % [facility] Hematocrit (Bld) [Volume fraction] 46.2 % 42.0 - 54.0 % [facility] Hemoglobin (Bld) [Mass/Vol] 15.6 g/dL 14.0 - 18.0 g/dL [facility] IMMATURE GRANULOCYTES ABS AUTO 0.03 [facility] Immature granulocytes/100 WBC (Bld) 0.5 % 0.0 - 0.5 % [facility] LYMPHOCYTES ABSOLUTE AUTO 1.4 [facility] Lymphocytes/100 WBC (Bld) 22.3 % 20.5 - 60.0 % [facility] MCH (RBC) [Entitic mass] 28.9 pg 25.9 - 34.[address] [facility] MCHC (RBC) [Mass/Vol] 33.8 g/dL 29.9 - 35.2 g/dL [facility] MCV (RBC) [Entitic vol] 85.7 fL 80.0 - 94.[address] [facility] MONOCYTES ABSOLUTE AUTO 0.7 [facility] Monocytes/100 WBC (Bld) 11.6 % 1.7 - 12.0 % [facility] NEUTROPHILS ABSOLUTE AUTO 4.0 [facility] Neutrophils/100 WBC (Bld) 62.1 % 43.0 - 75.0 % [facility] Platelet mean volume (Bld) [Entitic vol] 10.5 fL 9.5 - 13.[address] [facility] TBH EO # 0.2 [facility] Healthcare TBH PLT 246 [facility] TB RBC 5.39 [facility] Healthcare TB WBC 6.4 [facility] Healthcare [facility] Office Visiton 06-11-2024 Follow-up visit [id number] Kim Nichols 1960 Date Provider Department Center 06/11/2024 3848-RICHARD BENITEZ [facility] Family History Problem Relation Age of Onset Brain Aneurysm Mother Stroke Father Heart attack Sister Family Status - Relation Status Age at Mother Father Sister Level of Service:25801 MO OFFICE/OUTPATIENT NEW MODERATE MDM 45 MINUTES Reason for Visit and Comments: New Patient [Other] - CHEST PAIN/AFIB Normal [facility] CNOVon 2023 CNOV Office Visit (SPSLUH ) KIM NICHOLS ([id number]) 1960 M Date Time Provider Department 08/04/23 8:00 AM [facility] During your visit today, we recorded the [...] opioids [facility]ations: [facility]: Gabapentin, Ple[place], Tylenol Have you ever seen a pain [...] This is an in-person visit. PCP: Avi Yepez MD REFERRING PROVIDER: Clara PACHECO SUBJECTIVE HISTORY [...] issues. 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 [facility] 07-08-2023 [facility] Telephone (SPCOMN) KIM NICHOLS ([id number]) 1960 M Date Time Provider Department 07/08/23 NIKOLAY CAMP [facility] During your visit today, we recorded the following information about you: Stacy Gallagher RN 07/08/2023 12:56 PM Signed Post Spine Injection phone call: [phone] on 07/08/23 Patient denies fever, chills, new [...] appointment 2-4 weeks post procedure by calling [phone] Patient does not have any questions or [...] 300 mg by mouth twice daily. - HYDROcodone-acetaminophen (NORCO) 5-325 mg per tablet Take 1 tablet by mouth every 6 hours as needed. - omeprazole (PRILOSEC) 40 mg capsule - rosuvastatin (CRESTOR) 20 mg tablet - clotrimazole-betamethasone (LOTRISONE) cream APPLY TO BOTH FEET [...] Status:Closed by STACY GALLAGHER on 07/08/23 Normal [facility] HISTORY PHYSICALon HISTORY PHYSICAL HNO ID: [id number] Author: Sherice Galvin APRN.PROCESSING MANAGER Service: ? Author Type: Nurse Practitioner Type: [...] mg by mouth twice daily. 06/30/2023 Yes HYDROcodone-acetaminophen (NORCO) 5-325 mg per tablet Take 1 tablet by mouth every 6 hours as needed. 06/30/2023 Yes omeprazole (PRILOSEC) 40 mg capsule 06/30/2023 Yes rosuvastatin (CRESTOR) 20 mg tablet 06/30/2023 Yes clotrimazole-betamethasone (LOTRISONE) cream APPLY TO BOTH FEET [...] hospital problems. * Medication and Non-Pharmacologic VTE Prophylaxis/Anticoagulants VTE Prophylaxis: NA SIGNATURE: Sherice Galvin APRN.CNP PATIENT NAME: Kim Nichols DATE: July 01, 2023 TIME: 9:04 AM Normal [facility] OPERATIVE NOon 07-01-2023 OPERATIVE NO HNO ID: [id number] Author: Nikolay Camp DO Service: Physical Medicine AND Rehabilitation Author Type: Physician Type: Operative Report Filed: 07/01/2023 9:40 AM Note Text: PROCEDURE REPORT Surgery/Procedure Date: July 01, 2023 Interventionalist: Nikolay Camp DO Procedure(s): Left L5 transforaminal epidural steroid injection Pre-Op/Pre-Procedure Diagnosis: Lumbar radiculopathy Post-Op Diagnosis: same SUBJECTIVE: Kim Nichols is a 62 year old male, who presents to the [facility] for a left L5 transforaminal epidural steroid injection. This is his first (1) procedure. 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 Pain is [...] home in stable condition. DO Fátima Castrejon [facility] JESSIKIM ([id number]) 1960 M Date Time Provider Department 06/26/23 NIKOLAY CAMP [facility] During your visit today, we recorded the following information about you: Oscar Rollins LPN 06/26/2023 9:20 AM Signed Phoned patient and message left for Kim to confirm appointment for Kim Nichols for spine procedure on 07/01/2023. Patient notified that [place] will call patient the night before with the time to arrive for injection. Patient verbalized understanding of the following: -Provided education on spine procedure and answered questions related to spine injection procedure. -[employer] Assistant Manager is needed to drive patient home. -NPO [...] to report. Diabetic: No Patient given number [phone], spine injections schedulers, if there is any [...] 300 mg by mouth twice daily. - HYDROcodone-acetaminophen (NORCO) 5-325 mg per tablet Take 1 tablet by mouth every 6 hours as needed. - omeprazole (PRILOSEC) 40 mg capsule - rosuvastatin (CRESTOR) 20 mg tablet - clotrimazole-betamethasone (LOTRISONE) cream APPLY TO BOTH FEET TWICE A DAY - chlorthalidone (HYGROTON) 25 mg tablet TAKE 1 TABLET BY MOUTH EVERY DAY IN THE MORNING WITH FOOD FOR 90 DAYS - aspirin 81 mg cap Take by mouth. 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 He also is prescribed Pleasant Unity for breakthrough pain which he only takes [...] well de (more content not included)... Normal [facility] Office Visit (Cardiology)on 05-13-2023 Follow-up visit Diagnoses/Problems Assessed Coronary disease (414.00) (I25.10) Essential hypertension, benign (401.1) (I10) Hyperlipidemia (272.4) (E78.5) Class 2 obesity with body mass index (BMI) of 36.0 to 36.9 in adult (278.00,V85.36) (E66.9,Z68.36) Never a smoker Orders Class 2 obesity with body mass index (BMI) of 36.0 to 36.9 in adult Healthy Weight Tips; Status:Complete - Retrospective Authorization; Done: [id number] Some eating tips that can help you lose weight.; Status:Complete - Retrospective Authorization; Done: [id number] Coronary disease, Hyperlipidemia Renew: Aspirin EC Low Dose 81 MG Oral Tablet Delayed Release; TAKE 1 TABLET DAILY DIRECTED Hyperlipidemia Renew: Rosuvastatin Calcium 20 MG Oral Tablet; take 1 tablet by mouth at bedtime SocHx: Never a smoker Tobacco Use Screening; Status:Complete; Done: [id number] Patient Instructions Please bring all medicines, vitamins, [...] MG Oral CapsuleTAKE 1 CAPSULE TWICE DAILY. Pleasant Unity 5-325 MG TABSTAKE 1 TABLET EVERY 4 [...] negative for complaint. Vitals Vital Signs Recorded: [id number] 11:22AM Heart Rate64, R Radial Xrrqnibu812, RUE, Sitting Noffuucip66, RUE, Sitting Height6 ft Ddjaih687 lb BMI Rfhlvdlufz44.21 kg/m2 BSA Calculated2.41 Tobacco Useb) No PHQ-2 [...] Screening.on 023 Adult depression screening assessment No [facility] [address] DO Work Phone: Tobacco use status [facility] b) No -[facility] [address] DO Work Phone: Tobacco Screening.on 022 Adult depression screening assessment No [facility] [address] DO Work Phone: Fall risk assessment c) Not medically indicated MP-No [facility] 250 DO Work Phone: Tobacco use status [facility] b) No [facility] 250 DO Work Phone: H PYLORI ANTIBODY IGGon 11-28 H. PYLORI IGG ABS 0.45 Index Value Normal 0.00-0.79 [facility] Comment on above: Result Comment: Nega tive <0.80 Equivocal 0.80 - 0.89 Positive >0.89 Performed By: #### L IPID, TSH, T7, URIC, CMP #### [facility] [address] [place] [address] Dr. Conor Chan INSULINon 12-21-2021 Insulin 55.2 uIU/mL Critically high 2.6-24.9 [facility] Comment on above: Performed By: #### I NSULIN #### [facility] [address] [address] [address] Conor Chan TESTOSTERONE, TOTALon 2021 Testosterone [Mass/Vol] 380 ng/dL Normal 264-916 [facility] Comment on above: Result Comment: Adul t male reference interval is based on a population of healthy nonobese males (BMI <30) between 19 and 39 years old. román Cool.al. JCEM 2017,102;2606-6353. PMID: [id number]. Performed By: #### L IPID, TSH, T7, URIC, CMP #### [facility] [address] [place] [address] Dr. Conor Chan CBC AUTO DIFFon 12-20-2021 BASO # 0.0 103/ul Normal 0.0-0.1 [facility] Comment on above: Performed By: #### C BC #### [facility] [address] [place] [address] Dr. Conor Chan Basophils/100 WBC (Bld) 0.5 % Normal 0.2-2.0 [facility] Comment on above: Performed By: #### C BC #### [facility] [address] [place] [address] Dr. Conor Chan EO # 0.2 103/ul Normal 0.0-0.7 [facility] Comment on above: Performed By: #### C BC #### [facility] [address] [place] [address] Dr. Conor Chan Eosinophils/100 WBC (Bld) 3.5 % Normal 0.9-7.0 [facility] Comment on above: Performed By: #### C BC #### [facility] [address] [place] [address] Dr. Conor Chan Erythrocyte distribution width (RBC) [Ratio] 13.8 % Normal 11.0-15.0 [facility] Comment on above: Performed By: #### C BC #### [facility] [address] [place] [address] Dr. Conor Chan Hematocrit (Bld) [Volume fraction] 48.5 % Normal 42.0-54.0 [facility] Comment on above: Performed By: #### C BC #### [facility] [address] [place] [address] Dr. Conor Chan Hemoglobin (Bld) [Mass/Vol] 16.3 g/dL Normal 14.0-18.0 [facility] Comment on above: Performed By: #### C BC #### [facility] [address] [place] [address] Dr. Conor Chan IG # 0.02 10e3/ul Normal 0.00-0.03 [facility] Comment on above: Performed By: #### C BC #### [facility] [address] [place] [address] Dr. Conor Chan IG % 0.3 % Normal 0.0-0.5 [facility] Comment on above: Performed By: #### C BC #### [facility] [address] [place] [address] Dr. Conor Chan LYMPH # 1.4 103/ul Normal 1.2-3.8 [facility] Comment on above: Performed By: #### C BC #### [facility] [address] [place] [address] Dr. Conor Chan Lymphocytes/100 WBC (Bld) 21.7 % Normal 20.5-60.0 [facility] Comment on above: Performed By: #### C BC #### [facility] [address] [place] [address] Dr. Conor Chan MANUAL DIFF REQ NO Normal [facility] Comment on above: Performed By: #### C BC #### [facility] [address] [place] [address] Dr. Conor Chan MCH (RBC) [Entitic mass] 28.5 pg Normal 25.9-34.0 [facility] Comment on above: Performed By: #### C BC #### [facility] [address] [place] [address] Dr. Conor Chan MCHC (RBC) [Mass/Vol] 33.6 g/dL Normal 29.9-35.2 [facility] Comment on above: Performed By: #### C BC #### [facility] [address] [place] [address] Dr. Conor Chan MCV (RBC) [Entitic vol] 84.9 fL Normal 80.0-94.0 [facility] Comment on above: Performed By: #### C BC #### [facility] [address] [place] [address] Dr. Conor Chan MONO # 0.6 103/ul Normal 0.3-0.8 [facility] Comment on above: Performed By: #### C BC #### [facility] [address] [place] [address] Dr. Conor Chan Monocytes/100 WBC (Bld) 9.3 % Normal 1.7-12.0 [facility] Comment on above: Performed By: #### C BC #### [facility] [address] [place] [address] Dr. Conor Chan NEUT # 4.1 103/ul Normal 1.4-6.5 [facility] Comment on above: Performed By: #### C BC #### [facility] [address] [place] [address] Dr. Conor Chan Neutrophils/100 WBC (Bld) 64.7 % Normal 43.0-75.0 [facility] Comment on above: Performed By: #### C BC #### [facility] [address] [place] [address] Dr. Conor Chan Platelet mean volume (Bld) [Entitic vol] 9.8 fL Normal 9.5-13.5 [facility] Comment on above: Performed By: #### C BC #### [facility] [address] [place] [address] Dr. Conor Chan PLT 235 103/ul Normal 150-450 [facility] Comment on above: Performed By: #### C BC #### [facility] [address] [place] [address] Dr. Conor Chan RBC 5.71 106/ul Normal 4.70-6.10 [facility] Comment on above: Performed By: #### C BC #### [facility] [address] [place] [address] Dr. Conor Chan WBC 6.4 103/ul Normal 4.0-11.0 [facility] Comment on above: Performed By: #### C BC #### [facility] [address] [place] [address] Dr. Conor Chan FREE THYROXINE INDEX T7on FTI 2.89 Normal [facility] Comment on above: Performed By: #### L IPID, TSH, T7, URIC, CMP #### [facility] [address] [place] [address] Dr. Conor Chan T3U 34.0 % Normal 23.5-40.5 [facility] Comment on above: Performed By: #### L IPID, TSH, T7, URIC, CMP #### [facility] [address] [place] [address] Dr. Conor Chan T4 [Mass/Vol] 8.50 ug/dL Normal 5.53-11.00 [facility] Comment on above: Performed By: #### L IPID, TSH, T7, URIC, CMP #### [facility] [address] [place] [address] Dr. Conor Chan GLYCOHEMOGLOBIN A1Con 2021 ADA RECOMMENDATION ADA THERAPEUTIC TARG ET 6.0 - 7.0 ACTION SUGGESTED > 7.0 Normal [facility] Comment on above: Performed By: #### A 1C #### [facility] [address] [place] [address] Dr. Conor Chan Glucose [Mass/Vol] 126 mg/dL Normal [facility] Comment on above: Performed By: #### A 1C #### [facility] [address] [place] [address] Dr. Conor Chan HbA1c (Bld) [Mass fraction] 6.0 % Normal <=6.0 [facility] Comment on above: Performed By: #### A 1C #### [facility] [address] [place] [address] Dr. Conor Chan LIPID PROFILEon 12-20-2021 CHOL-HDL RATIO NORM SEE BELOW Normal [facility] Comment on above: Result Comment: 3.3 - 4.4 LOW RISK 4.4 - 7.1 AVERAGE RISK 7.1 - 11.0 MODERATE RISK >11.0 HIGH RISK Performed By: #### L IPID, TSH, T7, URIC, CMP #### [facility] [address] [place] [address] Dr. Conor Chan Cholesterol [Mass/Vol] 161 mg/dL Normal <=200 [facility] Comment on above: Performed By: #### L IPID, TSH, T7, URIC, CMP #### [facility] [address] [place] [address] Dr. Conor Chan Cholesterol in HDL [Mass/Vol] 50 mg/dL Normal [facility] Comment on above: Performed By: #### L IPID, TSH, T7, URIC, CMP #### [facility] [address] [place] [address] Dr. Conor Chan Cholesterol in LDL [Mass/Vol] 96.0 mg/dL Normal [facility] Comment on above: Performed By: #### L IPID, TSH, T7, URIC, CMP #### [facility] [address] [place] [address] Dr. Conor Chan Cholesterol.total/ Cholesterol in HDL [Mass ratio] 3.2 {ratio} Normal [facility] Comment on above: Performed By: #### L IPID, TSH, T7, URIC, CMP #### [facility] [address] [place] [address] Dr. Conor Chan HDL NORMAL > or = 60 mg/dl - LO W CARDIOVASCULAR RISK <40 mg/dl - HIGH CARDIOVASCULAR RISK Normal [facility] Comment on above: Performed By: #### L IPID, TSH, T7, URIC, CMP #### [facility] [address] [place] [address] Dr. Conor Chan LDL CALC NORMAL SEE BELOW Normal [facility] Comment on above: Result Comment: <100 mg/dl OPTIMAL 100 - 129 mg/dl NEAR OR ABOVE OPTIMAL 130 - 159 mg/dl BORDERLINE HIGH 160 - 189 mg/dl HIGH >190 mg/dl VERY HIGH Performed By: #### L IPID, TSH, T7, URIC, CMP #### [facility] [address] [place] [address] Dr. Conor Chan Triglyceride [Mass/Vol] 75 mg/dL Normal <=150 [facility] Comment on above: Performed By: #### L IPID, TSH, T7, URIC, CMP #### [facility] [address] [address] [address] Conor Chan VLDL CALC 15.0 mg/dL Normal [facility] Comment on above: Performed By: #### L IPID, TSH, T7, URIC, CMP #### [facility] [address] [address] [address] Conor Chan PROF 14(COMP METB)on 022 Albumin [Mass/Vol] 3.7 g/dL Normal 3.5-5.0 [facility] Comment on above: Performed By: #### L IPID, TSH, T7, URIC, CMP #### [facility] [address] [place] [address] Dr. Conor Chan Albumin/Globulin [Mass ratio] 0.9 {ratio} Normal [facility] Comment on above: Performed By: #### L IPID, TSH, T7, URIC, CMP #### [facility] [address] [address] [address] Conor Chan ALP [Catalytic activity/Vol] 58 U/L Normal 38-126 [facility] Comment on above: Performed By: #### L IPID, TSH, T7, URIC, CMP #### [facility] [address] [place] [address] Dr. Conor Chan ALT [Catalytic activity/Vol] 40 U/L Normal 21-72 [facility] Comment on above: Performed By: #### L IPID, TSH, T7, URIC, CMP #### [facility] [address] [address] [address] Conor Chan Anion gap [Moles/Vol] 5.5 mmol/L Normal [facility] Comment on above: Performed By: #### L IPID, TSH, T7, URIC, CMP #### [facility] [address] [address] [address] Conor Chan AST [Catalytic activity/Vol] 18 U/L Normal 17-59 [facility] Comment on above: Performed By: #### L IPID, TSH, T7, URIC, CMP #### [facility] [address] [place] [address] Dr. Coonr Chan Bilirubin [Mass/Vol] 0.5 mg/dL Normal 0.2-1.3 [facility] Comment on above: Performed By: #### L IPID, TSH, T7, URIC, CMP #### [facility] [address] [place] [address] Dr. Conor Chan Calcium [Mass/Vol] 9.9 mg/dL Normal 8.4-10.2 [facility] Comment on above: Performed By: #### L IPID, TSH, T7, URIC, CMP #### [facility] [address] [place] [address] Dr. Conor Chan Chloride [Moles/Vol] 97 mmol/L Critically low 98-107 [facility] Comment on above: Performed By: #### L IPID, TSH, T7, URIC, CMP #### [facility] [address] [place] [address] Dr. Conor Chan CO2 [Moles/Vol] 30.7 mmol/L Critically high 22.0-30.0 [facility] Comment on above: Performed By: #### L IPID, TSH, T7, URIC, CMP #### [facility] [address] [place] [address] Dr. Conor Chan Creatinine [Mass/Vol] 1.04 mg/dL Normal 0.66-1.25 [facility] Comment on above: Performed By: #### L IPID, TSH, T7, URIC, CMP #### [facility] [address] [place] [address] Dr. Conor Chan EGFR-AF SLOVAK >60 Normal >=60 [facility] Comment on above: Performed By: #### L IPID, TSH, T7, URIC, CMP #### [facility] [address] [place] [address] Dr. Conor Chan EGFR-NON AF SLOVAK >60 Normal >=60 [facility] Comment on above: Performed By: #### L IPID, TSH, T7, URIC, CMP #### [facility] [address] [place] [address] Dr. Conor Chan Globulin (S) [Mass/Vol] 4.2 g/dL Normal [facility] Comment on above: Performed By: #### L IPID, TSH, T7, URIC, CMP #### [facility] [address] [place] [address] Dr. Conor Chan Glucose [Mass/Vol] 122 mg/dL Critically high 74-106 T [facility] Comment on above: Performed By: #### L IPID, TSH, T7, URIC, CMP #### [facility] [address] [place] [address] Dr. Conor Chan Potassium [Moles/Vol] 3.2 mmol/L Critically low 3.4-5.0 [facility] Comment on above: Performed By: #### L IPID, TSH, T7, URIC, CMP #### [facility] [address] [place] [address] Dr. Conor Chan Protein [Mass/Vol] 7.9 g/dL Normal 6.1-8.2 [facility] Comment on above: Performed By: #### L IPID, TSH, T7, URIC, CMP #### [facility] [address] [place] [address] Dr. Conor Chan Sodium [Moles/Vol] 130 mmol/L Critically low 137-145 [facility] Comment on above: Performed By: #### L IPID, TSH, T7, URIC, CMP #### [facility] [address] [place] [address] Dr. Conor Chan Urea nitrogen [Mass/Vol] 15.0 mg/dL Normal 9.0-20.0 [facility] Comment on above: Performed By: #### L IPID, TSH, T7, URIC, CMP #### [facility] [address] [place] [address] Dr. Conor Chan Urea nitrogen/Creatinin e [Mass ratio] 14.4 mg/mg Normal [facility] Comment on above: Performed By: #### L IPID, TSH, T7, URIC, CMP #### [facility] [address] [address] [address] Conor Chan TSHon 12-20-2021 TSH 2.122 uIU/mL Normal 0.470-4.[address] [facility] Comment on above: Performed By: #### L IPID, TSH, T7, URIC, CMP #### [facility] [address] [place] [address] Dr. Conor Chan TSH RANGE SEE BELOW Normal [facility] Comment on above: Result Comment: <0.3 4 UIU/ml HYPERTHYROID 0.34-5.60 UIU/ml EUTHYROID >5.60 UIU/ml HYPOTHYROID Performed By: #### L IPID, TSH, T7, URIC, CMP #### [facility] [address] [place] [address] Dr. Conor Chan URIC ACID SERUMon 12-20-2021 Urate [Mass/Vol] 7.3 mg/dL Normal 3.5-8.5 [facility] Comment on above: Performed By: #### L IPID, TSH, T7, URIC, CMP #### [facility] [address] [place] [address] Dr. Conor Chan XR LSPINE MIN 4 [...] by: OSCAR FRANCO Date: 2021-12-20 10:06 Normal [facility] Vital Signs Date Time Vital Sign Value Performing Clinician Facility 07-20-2024 13:29-0400 Blood Pressure Location Rell ADAMSON [facility] [place] 07-20-2024 13:29-0400 Diastolic blood pressure 78 mm[Hg] Rell ADAMSON [facility] 07-20-2024 13:29-0400 Heart rate 72 /min Rell VALENCIAL [facility] 07-20-2024 13:29-0400 Respiratory rate 16 /min Rell NILL [facility] 07-20-2024 13:29-0400 Systolic blood pressure 116 mm[Hg] Rell NILL [facility] 07-08-2024 09:47-0400 Body height 182.9 cm Car LUCIANO Work Phone: [facility] 07-08-2024 09:47-0400 Body mass index (BMI) [Ratio] 36.84 kg/m2 Car LUCIANO Work Phone: [facility] 07-08-2024 09:47-0400 Body weight 123.2 kg Car LUCIANO Work Phone: [facility] 2023 08:03-0400 Body height 182.9 cm Bilal Butt Work Phone: [facility] 2023 08:03-0400 Body weight 120.2 kg Bilal Butt Work Phone: [facility] 06-02-2023 13:26-0400 Body height 182.9 cm Darren Elizabeth SPRING COVERER.PROCESSING MANAGER Work Phone: [facility] 06-02-2023 13:26-0400 Body weight 117.03 kg Darren Elizabeth SPRING COVERER.PROCESSING MANAGER Work Phone: [facility] 06-02-2023 13:26-0400 Diastolic blood pressure 84 mm[Hg] Darren Elizabeth SPRING COVERER.PROCESSING MANAGER Work Phone: [facility] 06-02-2023 13:26-0400 Heart rate 63 /min Darren Elizabeth SPRING COVERER.PROCESSING MANAGER Work Phone: [facility] 06-02-2023 13:26-0400 Respiratory rate 18 /min Darren Elizabeth SPRING COVERER.PROCESSING MANAGER Work Phone: [facility] 06-02-2023 13:26-0400 SaO2% (BldA) [Mass fraction] 95 % Darren Clara SPRING COVERER.PROCESSING MANAGER Work Phone: [facility] 06-02-2023 13:26-0400 Systolic blood pressure 128 mm[Hg] Darrensalome Elizabeth SPRING COVERER.PROCESSING MANAGER Work Phone: [facility] 05-13-2023 11:22-0400 Body height 182.88 cm Avi Aguilar Hoy Work Phone: [facility] 250 DO Work Phone: 05-13-2023 11:22-0400 Body mass index (BMI) [Ratio] 36.21 kg/m2 Avi Lauren Hoy Work Phone: [facility] 250 DO Work Phone: 05-13-2023 11:22-0400 Body surface area Derived from formula 2.41 m2 Avi Lauren Hoy Work Phone: [facility] 250 DO Work Phone: 05-13-2023 11:22-0400 Body weight 121.11 kg Avi Lauren Hoy Work Phone: [facility] 250 DO Work Phone: 05-13-2023 11:22-0400 Diastolic blood pressure 78 mm[Hg] Avi Lauren Hoy Work Phone: [facility] 250 DO Work Phone: 05-13-2023 11:22-0400 Heart rate 64 /min Avi Lauren Hoy Work Phone: [facility] 250 DO Work Phone: 05-13-2023 11:22-0400 Systolic blood pressure 132 mm[Hg] Avi M Hoy Work Phone: [facility] 250 DO Work Phone: 05-07-2022 11:36-0400 Body height 182.88 cm Avi M Hoy Work Phone: [facility] 250 DO Work Phone: 05-07-2022 11:36-0400 Body mass index (BMI) [Ratio] 38.38 kg/m2 Avi M Hoy Work Phone: [facility] 250 DO Work Phone: 05-07-2022 11:36-0400 Body surface area Derived from formula 2.47 m2 Avi M Hoy Work Phone: [facility] 250 DO Work Phone: 05-07-2022 11:36-0400 Body weight 128.37 kg Avi M Hoy Work Phone: [facility] 250 DO Work Phone: 05-07-2022 11:36-0400 Diastolic blood pressure 72 mm[Hg] Avi M Hoy Work Phone: [facility] 250 DO Work Phone: 05-07-2022 11:36-0400 Heart rate 66 /min Avi M Hoy Work Phone: [facility] 250 DO Work Phone: 05-07-2022 11:36-0400 Systolic blood pressure 110 mm[Hg] Avi M Hoy Work Phone: [facility] 250 DO Work Phone: Encounters Encounter Date Encounter Type Care Provider Facility Start: 09-09-2024 End: 09[facility]09[facility]: 09-08-2024 End: 09-08-2024 ambulatory Rell ADAMSON Facility: [facility] Start: 09-08-2024 End: 09-08-2024 Patient encounter procedure Rell ADAMSON [facility] Start: 08-30-2024 End: 08-30-2024 Bamboo flowsheet Car Cuellar PA Work Phone: [facility] Start: 08-30-2024 End: 08-30-2024 Bamboo flowsheet Car Cuellar PA Work Phone: [facility] Start: 08-30-2024 End: 08-30-2024 Postop follow up visit related to original px Car Cuellar PA Work Phone: [facility] Comment on above: S/P left knee arthro scopy (Primary Dx) Start: 08-30-2024 End: 08-30-2024 ambulatory CAR CUELLAR Not Available Start: 08-25-2024 End: 08-25-2024 ambulatory MD Avi Yepez Work Phone: [facility] Work Phone: Start: 08-25-2024 End: 08-25-2024 Departed Referred MD Avi Yepez Work Phone: [facility] Start: 08-25-2024 End: 08-25-2024 ambulatory Rell ADAMSON Facility:[id number] Start: 08-16-2024 End: 08-16-2024 Bamboo flowsheet Car [...] Available Start: 07-28-2024 End: 07-28-2024 Refill Corona Son Danish ARNOLD Work Phone: [facility] Comment on above: Post-op pain (Primar y Dx) Start: 07-20-2024 End: 07-20-2024 ambulatory Rell ADAMSON Facility:[facility] Start: 07-20-2024 End: 07-20-2024 Patient encounter procedure Rell ADAMSON [facility] Start: 07-19-2024 End: 07-19-2024 Bamboo flowsheet Maria E Fate PT [facility] Start: 07-19-2024 End: 07-19-2024 Bamboo flowsheet Maria E Fate PT [facility] Start: 07-19-2024 End: 07-19-2024 ambulatory MARIA EAMERICA MONTEZKHLOE [facility] Comment on above: Internal derangement of left knee (Primary Dx); Need for crutch training Start: 07-09-2024 End: 07-09-2024 Clinisync Result Encounter Car LUCIANO Work Phone: [facility] Department Unsolicited Start: 07-09-2024 End: 07-09-2024 Clinisync Result Encounter Car LUCIANO Work Phone: [facility] Unsolicited Start: 07-08-2024 End: 07-08-2024 Bamboo flowsheet Car LUCIANO Work Phone: [facility] Start: 07-08-2024 End: 07-08-2024 Bamboo flowsheet Car LUCIANO Work Phone: [facility] Start: 07-08-2024 End: 07-08-2024 Patient encounter procedure Car LUCIANO Work Phone: [facility] Comment on above: Preop examination (P rimary Dx); Internal derangement of left knee Start: 07-08-2024 End: 07-08-2024 Preprocedural examination done Car LUCIANO Work Phone: [facility] Start: 07-08-2024 End: 07-08-2024 ambulatory CAR CUELLAR Not Available Start: 07-05-2024 ambulatory Rell ADAMSON Facility:[facility] Start: 06-21-2024 End: 06-21-2024 Office outpatient visit 25 minutes Jr. Elias Thomas DO Work Phone: [facility] Comment on above: Internal derangement of left knee (Primary Dx) Start: 06-21-2024 End: 06-21-2024 ambulatory ELIAS EDEN Not Available Start: 06-11-2024 End: 06-11-2024 ambulatory [facility] Start: 06-09-2024 Non-patient / Non-visit MD Indra Yepez Work Phone: [facility] Work Phone: Start: 05-10-2024 End: 05-10-2024 ambulatory ELIAS EDEN Not Available Start: 2023 End: 2023 ambulatory JUAN R LING Facility:[facility] Start: 2023 End: 2023 Office outpatient new 30 minutes Juan R Ling MD Work Phone: [facility] Comment on above: Meralgia paresthetic a of left side (Primary Dx); Chronic midline low back pain without sciatica Start: 08-01-2023 End: 08-01-2023 ambulatory Darren Elizabeth SPRING COVERER.PROCESSING MANAGER Work Phone: [facility] Comment on above: Dr chong Cut me open Start: 07-01-2023 End: 07-01-2023 ambulatory NIKOLAY CAMP Facility:[facility] Start: 06-26-2023 Telephone encounter Nikolay Camp DO Work Phone: [facility] Comment on above: Preparations For Pro cedures (Pre-injection instructions) Start: 06-19-2023 Orders Only Nikolay hall DO Work Phone: Neurology Comment on above: Lumbar radiculopathy (Primary Dx); Displacement of lumbar intervertebral disc without myelopathy Start: 06-02-2023 End: 06-03-2023 ambulatory DARREN ELIZABETH Facility:[facility] Start: 06-02-2023 End: 06-02-2023 Patient encounter procedure Darrensalome Elizabeth SPRING COVERER.PROCESSING MANAGER Work Phone: [facility] Comment on above: Radiculopathy, lumba r region (Primary Dx); Lumbar disc herniation Start: 05-13-2023 Office outpatient vi sit 25 minutes Avizander Yepez Work Phone: [facility] 250 DO Work Phone: Start: 05-13-[address] Reilly Nelson II Facility: Start: 05-06-2023 Chart abstracting None (Historical) Neurology Start: 12-16-2022 Rx Renewal Avi Yepez Work Phone: [facility] 250 DO Work Phone: Start: 07-17-2022 End: 07-17-2022 Departed Referred MD Avi Yepez Work Phone: [facility] [address] 250 Start: 05-07-2022 Office outpatient vi sit 25 minutes Avi M Hosvetlana Work Phone: [facility] 250 DO Work Phone: Start: 01-03-[address] AVI YEPEZ Facility :[facility] Start: 12-21-2021 Encounter for genera l adult medical examination without abnormal findings DR AVI YEPEZ [facility] Start: 12-20-2021 End: 12-21-[address] AVI YEPEZ Facility:[facility] Start: 12-20-2021 End: 12-21-2021 Encounter for general adult medical examination without abnormal findings DR AVI YEPEZ Facility:[facility] Start: 12-10-2021 Rx Renewal Reilly mcmahon MD Work Phone: [facility] 250 DO Work Phone: Procedures Date Procedure Procedure Detail Performing Clinician Start: 08-25-2024 Colonoscopy Rell NI LL Start: 08-25-2024 Esophagogastroduodenoscopy Rell NILL Start: 07-09-2024 ALL CBC WITH AUTO DIFF Car LUCIANO Work Phone: Start: 07-17-2022 Radiologic examination of knee MD Avi Yepez Work Phone: Start: 12-20-[address] RONDA YEPEZ Comment on above: Performed By: #### P [facility] #### [facility] [address] [place] [address] Dr. Conor Chan Start: 06-09-2020 Total colonoscopy Chaz Nelson MD Work Phone: Start: 07-02-2019 End: 07-02-2019 Colonoscopy Darren Elizabeth APRN.PROCESSING MANAGER Work Phone: Cardiac catheterization Will renetta Nelson MD Work Phone: Cardiac catheterization Jorge aegia ADAMSON Cholecystectomy Reilly miranda MD Work Phone: Cholecystectomy Rell NILGia Nasal septoplasty Rell NI LL Plan of Treatment Date Care Activity Detail Author Start: 07-02-2029 Screening for malign ant neoplasm of colon [facility] Start: 12-20-2026 PROSTATE CANCER SCREENING DISCUSSION PROSTATE CANCER SCREENING DISCUSSION [facility] Start: 08-30-2024 End: 08-30-2024 Patient encounter procedure 08/30/2024 10:15 AM EST Office Visit [facility] [address] [place] [address] Car Cuellar, ANKITA [address] [place] [address] S/P left knee arthroscopy (Primary Dx) [facility] Comment on above: S/P left knee arthro scopy (Primary Dx) Start: 08-25-2024 [facility] Start: 08-16-2024 End: 08-16-2024 Patient encounter procedure 08/16/2024 10:00 AM EDT Office Visit [facility] [address] [place] [phone] Car Cuellar, PA [address] [place] [address] S/P left knee arthroscopy (Primary Dx) [facility] Comment on above: S/P left knee arthro scopy (Primary Dx) Start: 08-12-2024 End: 08-12-2024 Patient encounter procedure 08/12/2024 9:00 AM EDT Office Visit [facility] [address] [place] [address] Car Cuellar, PA [address] [place] [address] [facility] Start: 07-29-2024 End: 07-29-2024 Patient encounter procedure 07/29/2024 10:45 AM EDT Procedure Visit [facility] Jr. Elias Thomas DO [address] [place] [address] [facility] Start: 07-19-2024 End: 07-19-2024 ambulatory [facility] PT Comment on above: Internal derangement of left knee Start: 07-08-2024 End: 07-08-2025 CBC W Auto Differential panel - Blood CBC and differential Lab Routine Preop examination Expected: 07/08/2024 (Approximate), Expires: 07/08/2025 [facility] Work Phone: Comment on above: Expected: 07/08/2024 (Approximate), Expires: 07/08/2025 Start: 07-08-2024 End: 07-08-2024 Patient encounter procedure 07/08/2024 10:00 AM EDT Office Visit [facility] [address] [place] [phone] Car Cuellar PA [address] [facility] [address] [place] [address] Preop examination (Primary Dx); Internal derangement of left knee [facility] Comment on above: Preop examination (P rimary Dx); Internal derangement of left knee Start: 06-27-2024 Influenza vaccination Influenza Vacc ine (#1) [facility] Start: 06-27-2023 Influenza vaccination [facility] Start: 05-13-2023 FUV, Provider: Reilly Nelson, Status: Pen, Time: 11:10 AM FUV, Provider: Reilly Nelson, Status: Pen, Time: 11:10 AM [facility] [employer] 250 DO Work Phone: Start: 10-27-2022 DEPRESSION ASSESSMENT DEPRESSION ASS ESSMENT [facility] Start: 05-17-2022 COVID-19 VACCINE (6 - Pfizer series) COVID-19 VACCINE (6 - Pfizer series) [facility] Start: 05-15-2022 FUV, Provider: Reilly Nelson, Status: Pen, Time: 2:00 PM FUV, Provider: Reilly Nelson, Status: Pen, Time: 2:00 PM [facility] [employer] 250 DO Work Phone: Start: 07-02-2020 Colonoscopy COLONOSCOPY [facility] Start: 07-02-2020 COLORECTAL CANCER SCREENING COLORECTAL CANCER SCREENING [facility] Start: 2016 Prostate Cancer Screening Discussion Prostate Cancer Screening Discussion [facility] Start: 2011 SHINGRIX VACCINE (1 of 2) SHINGRIX VACCINE (1 of 2) [facility] Start: 2006 COLOGUARD (FIT-DNA) COLOGUARD (FIT-D NA) [facility] Start: [address] COLONOGRAPHY [facility] Start: 2006 DIABETES SCREEN DIABETES SCREEN [facility] Start: 2006 Diabetes Screening Diabetes Screenin g [facility] Start: 2006 FECAL OCCULT BLOOD FECAL OCCULT BLOO D [facility] Start: [address] Start: 1996 Lipid 1996 panel - S hayden or Plasma Lipid Screening [facility] Start: 1996 LIPID SCREEN LIPID SCREEN [facility] Start: 1980 Urine microalbumin profile [facility] Start: 1979 HEPATITIS C SCREENING HEPATITIS C SC RAUL [facility] Start: 1979 HIV SCREENING HIV SCREENING [facility] Start: 1961 Screening for malign ant neoplasm of colon [facility] End: 09-02-2024 Radex spine lumbosacral minimum 4 views XR LUMBAR MOTION 4V AP/LAT/ FLEX/EXT Radiology Routine Meralgia paresthetica of left side 1 Occurrences starting 2023 until 09/02/2024 [facility] Work Phone: Comment on above: 1 Occurrences starti ng 2023 until 09/02/2024 SPINE INTERVENTION PROCEDURE SPINE INTERVENTION PROCEDURE Procedures Routine Radiculopathy, lumbar region Lumbar disc herniation Ordered: 06/02/2023 [facility] Work Phone: Comment on above: Ordered: 06/02/[address] [facility] Immunizations Immunization Date Immunization Notes Care Provider Deep[facility] 09-12-2023 influenza virus vacc ine, unspecified formulation JrHerbie Stepanic DO Work Phone: [facility] 10-14-2022 Pfizer COVID-19 Vac Bivalent 30 MCG/0.3ML Intramuscular Suspension Avi M Hoy Work Phone: [facility] 10-03-2022 influenza, injectabl e, quadrivalent, preservative free [facility]vi M [facility]oy [facility] Work Phone: 10-03-2022 influenza virus vacc ine, unspecified formulation Darren Elizabeth SPRING COVERER.PROCESSING MANAGER Work Phone: [facility] 03-22-2022 Comirnaty 30 MCG/0.3 ML Intramuscular Suspension [facility]vi M [facility] Work Phone: 03-22-2022 Moderna COVID-19 Vac cine 100 MCG/0.5ML Intramuscular Suspension Avi Yepez Work Phone: [facility] Comment on above: Series: 03-22-2022 SARS-CoV-2 mRNA (amobcxekhdw-euhm-mmjrmd e) vaccine Rell ADAMSON [facility] 03-22-2022 zoster vaccine recombinant [facility] Work Phone: 09-03-2021 Pfizer-BioNTech COVI D-19 Vacc 30 MCG/0.3ML Intramuscular Suspension Avi Yepez Work Phone: [facility] 08-25-2021 influenza virus vacc ine, unspecified formulation Rell ADAMSON [facility] 08-25-2021 influenza, injectabl e, quadrivalent, preservative free [facility]vi [facility]pez [facility] Work Phone: 08-25-2021 zoster vaccine recombinant [facility] Work Phone: 02-13-2021 Pfizer-BioNTech COVI D-19 Vacc 30 MCG/0.3ML Intramuscular Suspension Avi Yepez Work Phone: [facility] 01-20-2021 SARS-CoV-2 (COVID-19 ) mRNA BNT-162b2 vax Rell ADAMSON [facility] 01-13-2021 Pfizer-BioNTech COVI D-19 Vacc 30 MCG/0.3ML Intramuscular Suspension Avi Yepez Work Phone: [facility] 12-23-2020 Pfizer-BioNTech COVI D-19 Vacc 30 MCG/0.3ML Intramuscular Suspension Avi Yepez Work Phone: [facility] 08-28-2020 influenza, injectabl e, quadrivalent, preservative free Avi Yepez Work Phone: -[facility] 250 DO Work Phone: 08-28-2020 influenza virus vacc ine, unspecified formulation Juan R Ling MD Work Phone: [facility] Payers Date Payer Category Payer Self-pay [id number] [phone] [id number] 2021 Private Health Insurance AEDAISY EWING POS [id number] 2021-Present [phone] [address] [place] [address] POS [id number] 2007 Managed Care HMO (unspecified) [id number] 1961 Unknown [id number] 1961 Unknown [id number] [id number] .593 1961 Unknown [id number] [id number] .356 1961 Unknown [id number] [id number] .1259 1961 Unknown [id number] [id number] .1259 1961 Unknown [id number] [id number] .1259 1961 Unknown [id number] [id number] .1259 1961 Unknown [id number] [id number] .1259 1961 Unknown [id number] 2.16.840.1.943267.3.579.2 .9 1961 Unknown [id number] 2.16.840.1.932230.3.579.2 .1259 1961 Unknown [id number] 2.16.840.1.473483.3.579.2 .727 1961 Unknown [id number] [id number] .727 1961 Unknown [id number] [id number] .727 1959 Private Health Insurance [id number] 1959 Self-pay [id number] Unknown Unknown [facility] [id number] Unknown [id number] Social History Date Type Detail Facility Start: 06-02-2023 End: 07-08-2024 Consumes alcohol Consumes alcohol [facility] Comment on above: socially; occasional; Start: 09-28-2020 End: 05-10-2024 Tobacco smoking status SDIS Never smoked tobacco (finding) [facility] Start: 1960 Sex Assigned At Male F [facility] Tobacco smoking stat us SDIS Tobacco smoking consumption unknown [facility] Start: 1960 Sex Assigned At Not on file [facility] Start: 06-02-2023 End: 07-08-2024 Gender identity Not on file [facility] Start: 06-02-2023 End: 05-10-2024 Tobacco use and exposure Smokeless tobacco non-user [facility] National Score (1-10 0), lower number is lower risk 61 [facility] Start: 07-28-2023 Gender identity Identifies as male gender (finding) [facility] Start: 07-28-2023 Sexual orientation Heterosexual (fin ding) [facility] Start: 05-10-2024 End: 07-08-2024 Alcoholic beverage intake Current drinker of alcohol (finding) [facility] Start: 05-10-2024 Alcohol Comment 1/WK [facility] Functional Status Date Assessment Result Facility 09-08-2024 Functional Status N/A [facility] 07-20-2024 Functional Status N/A [facility] [place] Clinical Notes 05-06-2023 to 09-09-2024 Car Cuellar, ANKITA - 08/30/2024 10:15 AM Magnus Cuellar, ANKITA - 08/16/2024 10:00 AM EDTPatient InstructionsTelephone Encounter - Corona Peng, CLAYTON - 07/28/2024 8:14 AM EDT Note Date & Type Note Facility 09-09-2024 Note Cardiology Clinic No te Chief Complaint: Follow up HPI: Kim Nichols is a 64 y.o. male who With no significant past cardiac history who was referred to cardiology clinic for chest pain and new diagnosis of A-fib. He presents today for followup. He is doing well from a cardiac standpoint. Patient adamantly denies any cardiac complaints or concerns. Patient denies any chest pain or shortness of breath. Patient denies any lower extremity edema, orthopnea, or proximal nocturnal dyspnea. No near-syncope or syncope. No dizziness or lightheadedness. ROS 10 point ROS is performed and [...] and Amoxicillin Physical Exam VITAL SIGNS: BP 134/80 (BP Location: Left arm, Patient Position: Sitting) Pulse 73 Ht 1.829 m (6') Wt 120 kg (264 lb) SpO2 95% BMI 35.80 kg/m??? Constitutional: Well developed, Well nourished, No [...] results found. Assessment/Plan: Kim Nichols is a 64 y.o. male with Atrial fibrillation, unspecified type (CMS/HCC) Primary hypertension Mixed hyperlipidemia Chest pain was atypical in nature and has resolved. Patient had a Lexiscan myocardial perfusion imaging [...] consider in future if chest pain persists Continue Eliquis And metoprolol to tartrate for A-fib Continue chlorthalidone 25 mg daily for hypertension, as blood pressure is well-controlled Continue rosuvastatin 20 mg daily for hyperlipidemia Optimize medical management Aggressive risk factor modification Plan of care discussed with patient. All questions were answered. Patient voices understanding and is agreeable with current plan. Patient was educated on red flag symptoms. Strict return precautions were provided. Patient verbalizes understanding Follow-up in cardiology clinic in 6 months, or sooner as needed Richard Benitez MD Interventional Cardiology [facility] 08-30-2024 History of Presen t illness Narrative Images from the original note were not included. HISTORY OF PRESENT ILLNESS: POST OP PT Kim Nichols is an 64 y.o. @ male. (EST PT) S/P (R) KNEE SCOPE 07/29/24 (4WKS 4DAYS). CONTINUES TO HAVE MILD SORENESS - WORSE AFTER PROLONGED SITTING ; MEDIAL ASPECT. CONTINUES HEP - NOTES GOOD ROM ; DENIES ANY INSTABILITY / WEAKNESS. NO PAIN MEDS ; CONTINUES TO ICE. REVIEW OF SYSTEMS: General: Denies fever, fatigue [...] Left knee flexion: tightness on terminal flexion. Tests Varus: negative Valgus: negative Other Erythema: absent Scars: present (Portal scars well healed) Sensation: normal Pulse: present Swelling: mild Effusion: no effusion present Comments: Operative lower extremity was noted [...] Z98.890 S/p TPHMM, CPMFC-4, CDMTP-4 PLAN: Pt noting soreness anterior medial near portal, no s/s of infection, walks well, discussed symptoms of arthritis such as pain medial knee, worse with standing/ activity or end of day... pt denies these symptoms, notes knee overall feeling better than before, will call if symptoms worsen, consider injection/ [place] trip in December. Questions answered in laymen terms at the bedside. The diagnosis, home exercise plan and any ongoing restrictions/ recommendations reviewed. If unable to be reached in office, I recommend evaluation at nearest Emergency Room if any symptoms worsened or new symptoms develop for requiring urgent evaluation. documented in this encounter [facility] 08-16-2024 History of Presen t illness Narrative [...] requiring urgent evaluation. documented in this encounter [facility] 08-16-2024 Instructions ANKITA Stapleton - 08/16/2024 [...] than 10 mins documented in this encounter [facility] 07-28-2024 Telephone encounter Note Post op pain rx. PDMP reviewed [facility] 07-28-2024 Miscellaneous Notes Post op pain rx. PDMP reviewed documented in this encounter [facility] 07-20-2024 Note General Surgery Offi ce/Clinic Note Chief Complaint consultation for GERD and colonoscopy HPI Staff 63 year old male presents on consultation from Dr. Yepez for GERD and surveillance colonoscopy. Patient reports several month history of intermittent sternal chest pain. Describes pain as being punched in the chest . Denies heartburn, belching, bloating, sour taste in mouth, nausea or vomiting. Denies abdominal pain, rectal pain or bleeding or bowel changes. UGI completed 9/6 with trace GERD. Took Protonix 40mg daily [...] tab(s), Oral, Ivy (more content not included)... [facility] Comment on above: Result Comment: Elec tronically Signed By: SNOW LANDA, Rell Mccormick\Date and Time Signed: 07/20/24 14:20 EDT 07-19-2024 History of Presen t illness Narrative Physical Therapy Physical Therapy Evaluation Visit Patient Name: Kim Nichosl Today's Date: 07/19/2024 Encounter Diagnoses Name Primary? Internal derangement of left knee Yes Need for crutch training Visit number: 1 Subjective: Interim History: Kim Nichols presents today for crutch training. He will be using bilateral crutches with (weightbearing orders) on the left. Here today for instruction on proper use, safety, and training. Pt says he will be NWB for at least 1 week and potentially up to 6 weeks. Pt says he only has to go up 1 step to get into his house. He is going to try and get a handrail installed prior to surgery. Precautions: pt will be having L knee scope on 07/29/24. Treatment: Gait Training: Crutch training provided today. Fit crutches to proper height. Educated and demonstrated proper sequencing on flat ground, stairs, and transfers. Patient able to demonstrate with proper and safe pattern. Educated on safety tips including removing trip hazards at home, going at a controlled pace. No other questions from patient. x20' Assessment: Goal: Patient met goal of one time crutch training by demonstrating safe ambulation with bilateral crutches on flat ground and stairs- MET Completed 1 times crutch training. Discharge after today's visit.. I hereby deem this POC medically necessary. Please sign below. Date: documented in this encounter [facility] 07-08-2024 History of Presen t illness Narrative Images from the original note were not included. GENERAL HISTORY AND PHYSICAL: NAME: Kim Nichols : 1960 HISTORY OF PRESENT ILLNESS: Kim Nichols is an 63 y.o. @ male. Here for surgery instructions - (L) KNEE SCOPE 07/29/2024 @TANMAY PAST MEDICAL HISTORY: Past Medical History: Diagnosis Date A-fib (CMS/HCC) GERD (gastroesophageal reflux disease) High cholesterol (CMS/HCC) Hypertension (CMS/HCC) PAST SURGICAL HISTORY: Past Surgical History: Procedure Laterality Date CHOLECYSTECTOMY 1996 SOCIAL HISTORY: Social History Occupational History Not on file Tobacco Use Smoking status: Never Smokeless tobacco: Never Substance and Sexual Activity Alcohol use: Yes Comment: 1/WK Drug use: Not on file Sexual activity: Not on file ALLERGIES: Allergies Allergen Reactions Tramadol Unknown Amoxicillin Hives and Rash MEDICATIONS: Current Outpatient Medications Medication Instructions aspirin (Vazalore) 81 MG capsule Oral chlorthalidone (Hygroton) 25 MG tablet TAKE 1 TABLET BY MOUTH EVERY MORNING WITH FOOD FOR 90 DAYS Diclofenac 35 MG capsule Eliquis 5 mg gabapentin (NEURONTIN) 300 mg, Oral, 2 times daily metoprolol tartrate (Lopressor) 25 MG tablet pantoprazole (PROTONIX) 40 mg, Oral, Daily before breakfast, Do not crush, chew, or split. potassium chloride CR (K-Tab) 20 MEQ ER tablet rosuvastatin (CRESTOR) 20 mg, Oral, Nightly sildenafil (Viagra) 50 MG tablet take 1 tablet by mouth once daily if needed for 10 days sucralfate (Carafate) 1 g tablet Oral, 4 times daily before meals and nightly REVIEW OF SYSTEMS: Review of Systems Constitutional: Negative for fatigue, fever and unexpected weight change. Eyes: Negative for redness and visual disturbance. Cardiovascular: Positive for chest pain (Pt notes GI related.. still investigating per PCP). Gastrointestinal: Negative for abdominal pain. Denies Indigestion Musculoskeletal: See note: Skin: Negative for color change and rash. Neurological: Negative for light-headedness and numbness. Vitals: Body mass index is 36.84 kg/m . PHYSICAL EXAM: Physical Exam Constitutional: General: He is not in acute distress. Appearance: Normal appearance. HENT: Head: Normocephalic and atraumatic. Right Ear: External ear normal. Left Ear: External ear normal. Nose: Nose normal. No rhinorrhea. Mouth/Throat: Mouth: Mucous membranes are moist. Pharynx: No posterior oropharyngeal erythema. Eyes: Extraocular Movements: Extraocular movements intact. Conjunctiva/sclera: Conjunctivae normal. Cardiovascular: Rate and Rhythm: Normal rate and regular rhythm. Pulses: Normal pulses. Heart sounds: No murmur heard. Pulmonary: Effort: Pulmonary effort is normal. No respiratory distress. Breath sounds: Normal breath sounds. No wheezing or rhonchi. Abdominal: Palpations: Abdomen is soft. Tenderness: There is no abdominal tenderness. Musculoskeletal: Cervical back: Normal range of motion and neck supple. Lymphadenopathy: Cervical: No cervical adenopathy. Skin: General: Skin is warm and dry. Findings: No erythema or rash. Neurological: General: No focal deficit present. Mental Status: He is alert and oriented to person, place, and time. Psychiatric: Mood and Affect: Mood normal. Behavior: Behavior normal. Orders Placed This Encounter Procedures CBC and differential Standing Status: Future Number of Occurrences: 1 Standing Expiration Date: 07/08/2025 Order Specific Question: Print requisition? Answer: No Ambulatory referral to Physical Therapy FERNY WOO ; PLEASE CALL PATIENT TO SCHEDULE, THANK YOU (CAMILLA Arteaga/OUR OFFICE 07/08 @10AM) [facility]UT[facility] TRAIN AND DISPENSE - (L) KNEE SCOPE 07/29 Standing Status: Future Standing Expiration Date: 12/29/2024 Referral Priority: Routine Referral Type: Consultation Referral Reason: Consult and Treat Referred to Provider: Tasha Davis, PT Requested Specialty: Physical Therapy Number of Visits Requested: 1 ASSESSMENT: ICD-10-CM 1. Preop examination Z01.818 CBC and differential CBC and differential 2. Internal derangement of left knee M23.92 Ambulatory referral to Physical Therapy PLAN: This patient presents for preadmission testing for upcoming surgery. Complete history with medical, surgery, and current allergy and medication list obtained. Consent for surgery signed and witnessed after verbal consent to perform surgery received. All questions answered and proposed surgery scheduled. (L) KNEE SCOPE 07/29 @TANMAY MONTEZ INSTRUCTIONS GIVEN TODAY 07/08 @10AM - [facility] CARDIAC CLEARANCE ; OBTAINED - JOEQU PROTOCOL PT REFERRAL SENT ; CRUTCH TRAIN AND DISPENSE NPAR ([id number], [id number]) Follow up for 08/12 @9AM W/AMANDA IN [place]. documented in this encounter [facility] 06-21-2024 History of Presen t illness Narrative Images from the original note were not included. HISTORY OF PRESENT ILLNESS: EST PT Kim Nichols is an 63 y.o. @ male. EST PT RECHECK LT KNEE PAIN - POSSIBLY DISCUSS SURGERY- PT WAS GETTING A CARDIAC WORK UP- PT DID SEE DR BENITEZ (STOVE MECHANIC) 06/11/24; PT STATES HE IS CLEARED (OFFICE NOT IS UNDER ENCOUNTER) PT STATES HE WAS ADMITTED TO [facility] FOR A-FIB X 1DAY ~05/17/24 XRAY LT KNEE EPIC 05/10/24 XRAY LT KNEE TBH 03/12/24 MRI LT KNEE TB 04/28/24 CORTISONE INJ 03/2024; TEMP RELIEF - per Dr. Yepez PREDNISONE; DENIES RELIEF - per Dr. Yepez NO PT PT NOTES INCREASE PAIN- PAIN POSTERIOR KNEE THAT RADIATES DOWN CALF AND HAMSTRING- +MEDIAL KNEE PAIN- INCREASE PAIN FROM GOING TO SITTING TO STANDING- +INSTABILITY- +SWELLING -NO PAIN MEDS JASON: 01/2024- PT STATES HE WAS WALKING AND STATES KNEE STOPPED WORKING Lower Extremity Issue The symptoms are aggravated by weight bearing. ALLERGIES: Allergies Allergen Reactions Tramadol Unknown Amoxicillin Hives and Rash HOME MEDICATIONS: Current Outpatient Medications Medication Instructions aspirin (Vazalore) 81 MG capsule Oral chlorthalidone (Hygroton) 25 MG tablet TAKE 1 TABLET BY MOUTH EVERY MORNING WITH FOOD FOR 90 DAYS Diclofenac 35 MG capsule Eliquis 5 mg gabapentin (NEURONTIN) 300 mg, Oral, 2 times daily metoprolol tartrate (Lopressor) 25 MG tablet pantoprazole (PROTONIX) 40 mg, Oral, Daily before breakfast, Do not crush, chew, or split. potassium chloride CR (K-Tab) 20 MEQ ER tablet rosuvastatin (CRESTOR) 20 mg, Oral, Nightly sildenafil (Viagra) 50 MG tablet take 1 tablet by mouth once daily if needed for 10 days sucralfate (Carafate) 1 g tablet Oral, 4 times daily before meals and nightly PHYSICAL EXAM: Knee Musculoskeletal Exam Gait Antalgic: left Limp: left Inspection Left Erythema: none Effusion: mild Edema: mild Ecchymosis: none Deformity: none Alignment: normal Previous incision: no previous incision Palpation Left Increased warmth: none Masses: none Crepitus: none Tenderness: present Medial joint line: moderate Range of Motion Left Active extension: 0 Active flexion: 120 Strength Left Extension: 5/5. Flexion: 5/5. Instability Left Varus stress grade: normal Valgus stress grade: normal Pivot shift: normal Anterior drawer: normal Posterior drawer: normal Quad active test: normal Medial Sly test: positive Gerald: negative Neurovascular Left Sensation: sural, saphenous, tibial, superficial peroneal and deep peroneal Patella reflex: normal and 2/4 Dorsalis pedis: 2+ Posterior tibial: 2+ Capillary refill: brisk Special Signs Left Left knee special signs are normal. Vitals: There is no height or weight on file to calculate BMI. Tobacco Use: Low Risk (06/11/2024) Received from [facility] Patient History Smoking Tobacco Use: Never Smokeless Tobacco Use: Never Passive Exposure: Not on file Alcohol Use: Not on file IMAGING: Procedures No orders of the defined types were placed in this encounter. ASSESSMENT: ICD-10-CM 1. Internal derangement of left knee M23.92 PLAN: We have answered all the patients questions and explained the patients condition, decision making and plan including the risks and benefits associated with said plan in layman''s terms in a language the patient could understand easily. If patient''s symptoms significantly worsen and they cannot get a hold of us or their family physician, we have recommended that the patient proceed to the nearest emergency department (room). Dr. Thomas obtained history and examined the patient, I am acting as scribe for Dr. Thomas/[facility], PLAN: We have reviewed prior (L) knee xrays / MRI results. After examination of his left knee today we have discussed both surgical and nonsurgical intervention, with the risks and benefits of both. Patient is requesting a (L) knee scope as the pain is affecting his ADL's - increased pain with ambulation. Patient states that he was cleared per his job hand ; we will need to obtain clearance prior to proceeding with surgical intervention. He is understanding if a repair is made he could be NWB. We have discussed his HEP and restrictions and will see him back on the day of sx. Surgery - Diagnostic and operative (L) knee scope w/medial meniscetomy. We have discussed both surgical and nonsurgical treatment options with the patient at length and the risks and benefits associated with both. The patient is requesting surgical intervention because they have not responded to outpatient treatment options including but not limited to rest ice, and home exercise program. Pain and decreased range of motion are affecting the patient''s ability to sleep and activities of daily living and we have recommended surgical intervention. Elias Thomas D.O. documented in this encounter [facility] 06-11-2024 Note Cardiology Clinic No te Chief [...] without additional cardiac (more content not included)... [facility] 2023 Note HNO ID: [id number] Author: Juan R Ling MD Service: ? Author Type: Physician Type: Progress Notes Filed: 2023 9:14 AM Note Text: SPINE SURGERY NEW PATIENT This is an in-person visit. PCP: Avi Yepez MD REFERRING PROVIDER: Clara PACHECO SUBJECTIVE HISTORY [...] issues. 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 [facility] 2023 Note HNO ID: [id number] Author: Bossman Saunders Service: ? Author Type: [...] opioids Medications: See medication reconciliation list in [facility] MEDICATIONS: Gabapentin, Pleasant Unity, Tylenol Have you ever seen a pain [...] or completing routine daily living activities? No [facility] 2023 History of Presen t illness Narrative SPINE SURGERY NEW PATIENT This is an in-person visit. PCP: Avi Yepez MD REFERRING PROVIDER: Clara PACHECO SUBJECTIVE HISTORY [...] issues. 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 SIGNATURE: Juan R Ling MD PATIENT NAME: Kim Nichols DATE: 2023 [...] opioids Medications: See medication reconciliation list in [facility] MEDICATIONS: Gabapentin, Pleasant Unity, Tylenol Have you ever seen a pain [...] No Bossman Escoto documented in this encounter [facility] 08-01-2023 Note HNO ID: [id number] Author: Darren Elizabeth APRN.PROCESSING MANAGER Service: ? Author Type: Nurse Practitioner Type: Progress Notes Filed: 08/01/2023 1:30 PM Note Text: SPINE SURGERY ESTABLISHED VISIT This is a virtual visit using Anyviteom Video Visit. It required patient-provider interaction for the medical decision making as documented below. DATE OF SERVICE: 08/01/2023 DATE OF LAST VISIT: 06/02/2023 SUBJECTIVE: HPI:Kim Nichols is a 62 year old male presenting via virtual vist s/p Left L5 transforaminal epidural steroid injection on 07/01/[address] Camp. [place] great initially and for the first few days after injection, symptoms returned shortly after. Patient has increased his Gabapentin 300 mg from BID to TID and is feeling good today. 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 SIGNATURE: Darren Elizabeth APRN.CNP PATIENT NAME: Kim Nichols DATE: August 01, 2023 TIME: 12:53 PM PAGER: [facility] 06-26-2023 Miscellaneous Notes Phoned patient and message left for Kim to confirm appointment for Kim Nichols for spine procedure on 07/01/2023. Patient notified that [place] will call patient the night before with the time to arrive for injection. Patient verbalized understanding of the following: -Provided education on spine procedure and answered questions related to spine injection procedure. -[employer] Assistant Manager is needed to drive patient home. -NPO [...] to report. Diabetic: No Patient given number [phone], spine injections schedulers, if there is any need to reschedule/ change appointment during normal business hours. Active MyChart users were informed to read Futubankhart procedure instructions prior to appointment. AMBULATORY PATIENT [...] POST INJECTION INSTRUCTIONS documented in this encounter [facility] 06-02-2023 Note HNO ID: [id number] Author: Darren Elizabeth APRN.PROCESSING MANAGER Service: ? Author Type: Nurse Practitioner Type: [...] with him pain. He also is prescribed Pleasant Unity for breakthrough pain which he only takes [...] Normal. DATA REVIE (more content not included)... [facility] 06-02-2023 History of Presen t illness Narrative [...] with him pain. He also is prescribed Pleasant Unity for breakthrough pain which he only takes [...] which included preparing to see the patient, [id number] patient care, completing clinical documentation, obtaining and/or reviewing separately obtained history, performing a medically appropriate examination, counseling and educating the patient/family/caregiver, independently interpreting results (not separately reported), and communicating results to the patient/family/caregiver. SIGNATURE: Darren Elizabeth APRN.CNP PATIENT NAME: Kim Nichols DATE: June 02, 2023 TIME: 1:57 PM PAGER: documented in this encounter [facility] 05-14-2023 Note HNO ID: [id number] Author: Ember Delatorre PA-C Service: ? Author Type: Physician Skiver Operator Type: Progress Notes Filed: 05/14/2023 4:17 PM Note Text: Per Triage: Kim Nichols is a 62 year old male that requests evaluation of lumbar spine. Per review, they have symptoms of back and LLE pain. Positive for numbness. CMT: Medication: Gabapentin, Tylenol, Pleasant Unity Studies (Reports unless indicated) MRI Lumbar: L4/5 moderate left foramen narrowing which may contribute to patient's symptoms 2. L5/S1 disc protrusion without significant canal or foramen narrowing. Disposition: Please schedule with surgical SANDY. Consider if injection is appropriate or on effective dose of Neurontin. Also see if symptoms correlate with imaging. [facility] 05-14-2023 History of Presen t illness Narrative Per Triage: Kim Nichols is a 62 year old male that requests evaluation of lumbar spine. Per review, they have symptoms of back and LLE pain. Positive for numbness. CMT: Medication: Gabapentin, Tylenol, Pleasant Unity Studies (Reports unless indicated) MRI Lumbar: L4/5 [...] Health Provider or Pain Management Provider at [facility]? No If answer is YES please schedule directly with surgeon, triage does not need to be completed. Is this a self-referral No If not, who is the Referring Provider Avi Yepez Is this a 2nd opinion? No Were you offered surgery? No MRI/CT/myelogram within 12 months? Yes If NO , please refer to medical spine or PCP to complete above imaging, triage does not need to be completed If YES, please ask for the name/address of the facility where the MRI/CT/myelogram was completed: [facility] [address] [place] [address] MRI/CT/myelogram viewable in Epic: No If not, please provide [phone] to fax in imaging reports for review. [...] Additional Comments Hydrocodone documented in this encounter [facility] 05-06-2023 Note HNO ID: [id number] Author: Mauricio Kelley Service: ? Author Type: ? Type: Progress Notes Filed: 05/14/2023 4:17 PM Note Text: Patient name: Kim Nichols Are you being referred by a [facility] Provider or Pain Management Provider at [facility]? No If answer is YES please schedule directly with surgeon, triage does not need to be completed. Is this a self-referral No If not, who is the Referring Provider Avi Yepez Is this a 2nd opinion? No Were you offered surgery? No MRI/CT/myelogram within 12 months? Yes If NO , please refer to medical spine or PCP to complete above imaging, triage does not need to be completed If YES,? please ask for the name/address of the facility where the MRI/CT/myelogram was completed: [facility] [address] [place] [address] MRI/CT/myelogram viewable in Epic: No If not, please provide [phone] to fax in imaging reports for review. [...] the surgery was completed: Additional Comments Hydrocodone [facility] Evaluation + Plan note No data available for this section [facility] Evaluation note No assessment inform ation available [facility] Work Phone: Evaluation note Diagnosis Radiculopathy, lumbar region- Primary Thoracic or lumbosacral neuritis or radiculitis, unspecified Lumbar disc herniation Displacement of lumbar intervertebral disc without myelopathy [facility] Lumbar radiculopathy- Primary Thoracic or lumbosacral neuritis or radiculitis, unspecified Displacement of lumbar intervertebral disc without myelopathy [facility] Meralgia paresthetica of left side- Primary Meralgia paresthetica Chronic midline low back pain without sciatica [facility] Post-op pain- Primary Other acute postoperative pain documented in this encounter [facility]* Diagnosis S/P left knee arthroscopy- Primary documented in this encounter [facility]* Diagnosis S/P left knee arthroscopy- Primary documented in this encounter [facility]* Diagnosis Preop examination- Primary Unspecified pre-operative examination Internal derangement of left knee [facility] Diagnosis Internal derangement of left knee- Primary [facility] Diagnosis Internal derangement of left knee- Primary Need for crutch training documented [facility] [...] impact on blood pressure andcholesterol.-[facility] [address] DO Work Phone: History of Present [...] to call if they arise or occur. [facility] [employer] DO Work Phone: History of Present illness [...] to call if they arise or occur. [facility] Work Phone: Hospital Discharge instructions No data available for this section [facility] Progress note No data available for this section [facility] Surgery Fern Reason for referral (narrative)* Diagnostic Procedure Only (Routine) - Pending Review Specialty Diagnoses / Procedures Referred By Erlinda mao Referred To Contact XR IMAGING Diagnoses Meralgia paresthetica of left side Procedures XR LUMBAR MOTION 4V AP/LAT/ FLEX/EXT RADEX SPINE LUMBOSACRAL MINIMUM 4 VIEWS Juan R Ling MD [address] [place] [address] [place] [address] Referral ID Status Reason Start Date Expiration Date Visits Requested Visits Authorized [id number] Pending Review Auto-Generat ed Referral 2023 09/02/2024 1 1 [facility] for referral (narrative)* Consultation (Routine) - Pending Review Specialty Diagnoses / Procedures Referred By Erlinda mao Referred To Contact Physical Therapy Diagnoses Internal derangement of left knee Procedures MO OFFICE/OUTPATIENT NEW HIGH MDM 60 MINUTES Car Cuellar PA [address] [place] [address] [facility] [address] [place] [address] Referral ID Status Reason Start Date Expiration Date Visits Requested Visits Authorized [id number] Pending Review Consult and Treat 07/01/2024 12/28/2024 1 1 [facility] Summary Purpose Family History Unknown Family Member [...] (CVA) Unknown Abdominal aortic aneurysm (AAA) Unknown mother Cerebral aneurysm Unknown History of thyroidectomy Unknown sister Diabetes mellitus Unknown Advance Directives Advance Directive Response Recorded Date/ Time Advance Directives No August 12:49pm Chief Complaint KIM NICHOLS is being seen for an annual follow-up of.KIM NICHOLS is being seen for an annual follow-up of.KIM NICHOLS is being seen for an annual follow-up of. Chief Complaint and Reason for Visit Chief Complaint X-ray Chief Complaint Unknown Additional Source Comments (unrecognized sect ion and content) No Status Records FoundNo Status Records FoundNo Status Records FoundNo Status Records FoundNo Status Records FoundNo Status Records FoundNo Status Records FoundNo Status Records FoundNo Status Records Found INFORMATION SOURCE (unrecogn ized section and content) DATE CREATED AUTHOR 01/05/2022 [place] [facility] DATE CREATED AUTHOR AUTHOR'S CE CALDWELL 05/14/2023 [facility] DATE CREATED AUTHOR AUTHOR'S ORGANIZ ATION 05/14/2023 [facility] DATE CREATED AUTHOR AUTHOR'S ORGANIZ ATION 2023 [facility] DATE CREATED AUTHOR AUTHOR'S ORGANIZ ATION 08/05/2023 [facility] DATE CREATED AUTHOR AUTHOR'S ORGANIZ ATION 08/31/2024 [facility] EPIC DATE CREATED AUTHOR AUTHOR'S ORGANIZ ATION 09/01/2024 [facility] DATE CREATED AUTHOR AUTHOR'S ORGANIZ ATION 09/10/2024 [facility] DATE CREATED AUTHOR AUTHOR'S ORGANIZ ATION 09/16/2024 [facility] Care Teams (unrecognized sec tion and content) Team Status: Active Member Role Status Dates Avi Yepez MD Primary Care Provider Active Team Status: Active Member Role Status Dates Avi Yepez MD Primary Care Provider Active Start: June 09, 2024 Kaushal Moy DO Attending Provider Active Sta rt: June 09, 2024 Team Status: Inactive Member Role Status Dates Avi Yepez MD Primary Care Provider Active Start: August 25, 2024 End: August 25, 2024 Rell Adamson MD [facility] Attending Provider Active Start: August 25, 2024 End: August 25, 2024 Team Status: Inactive Member Role Status Dates Avi Yepez MD Primary Care Provider Active Bijan Betts Jr, DO Attending Provider Active Data Network Architect Relationship Specialty Start Date End Date Avi Yepez MD [address] [place] [address] Referring Family Medicine 04/24/23 Data Network Architect Relationship Specialty Start Date End Date Avi Yepez MD [address] [place] [address] Referring Family Medicine 04/24/23 Data Network Architect Relationship Specialty Start Date End Date Avi Yeepz MD [address] [place] [address] Referring Family Medicine 04/24/23 Data Network Architect Relationship Specialty Start Date End Date Avi Yepez MD [address] [place] [address] PCP - General Family Medicine 06/25/23 Avi Yepez MD [address] [place] [facility] [place] [address] Referring Family Medicine 04/24/23 Data Network Architect Relationship Specialty Start Date End Date Avi Yepez MD [address] [place] [facility] [address] PCP - General Family Medicine 06/25/23 Avi Yepez MD [address] [place] [facility] [place] [address] Referring Family Medicine 04/24/23 Data Network Architect Relationship Specialty Start Date End Date Avi Yepez MD [address] [place] [facility] [place] [address] PCP - General Family Medicine 06/25/23 Avi Yepez MD [address] [place] [address] Referring Family Medicine 04/24/23 Data Network Architect Relationship Specialty Start Date End Date Avi Yepez MD [address] [place] [address] PCP - General 05/05/24 Data Network Architect Relationship Specialty Start Date End Date Avi Yepez MD [address] [place] [address] PCP - General 05/05/24 Data Network Architect Relationship Specialty Start Date End Date Avi Yepez MD [address] [place] [facility] [address] PCP - General 05/05/24 Data Network Architect Relationship Specialty Start Date End Date Avi Yepez MD [address] [place] [facility] [address] PCP - General 05/05/24 Data Network Architect Relationship Specialty Start Date End Date Avi Yepez MD [address] [place] [facility] [address] PCP - General 05/05/24 Data Network Architect Relationship Specialty Start Date End Date Avi Yepez MD [address] [place] [facility] [address] PCP - General 05/05/24 Data Network Architect Relationship Specialty Start Date End Date Avi Yepez MD [address] [place] [facility] [address] PCP - General 05/05/24 Data Network Architect Relationship Specialty Start Date End Date Avi Yepez MD [address] [place] [facility] [address] PCP - General 05/05/24 Data Network Architect Relationship Specialty Start Date End Date Avi Yepez MD [address] [place] [address] PCP - General 05/05/24 Goals (unrecognized section and content) Goals may be documented in a n alternate section No data available for this sectionGoals may be documented in an alternate section No data available for this section Source Comments (unrecognize d section and content) In the event this informatio n is protected by the Federal Confidentiality of Alcohol and Drug Abuse Patient Records regulations: The Federal rules restrict any use of the information to criminally investigate or prosecute any alcohol or drug abuse patient.[facility] the event this information is protected by the Federal Confidentiality of Alcohol and Drug Abuse Patient Records regulations: The Federal rules restrict any use of the information to criminally investigate or prosecute any alcohol or drug abuse patient.[facility] the event this information is protected by the Federal Confidentiality of Alcohol and Drug Abuse Patient Records regulations: The Federal rules restrict any use of the information to criminally investigate or prosecute any alcohol or drug abuse patient.[facility] the event this information is protected by the Federal Confidentiality of Alcohol and Drug Abuse Patient Records regulations: The Federal rules restrict any use of the information to criminally investigate or prosecute any alcohol or drug abuse patient.[facility] the event this information is protected by the Federal Confidentiality of Alcohol and Drug Abuse Patient Records regulations: The Federal rules restrict any use of the information to criminally investigate or prosecute any alcohol or drug abuse patient.[facility] the event this information is protected by the Federal Confidentiality of Alcohol and Drug Abuse Patient Records regulations: The Federal rules restrict any use of the information to criminally investigate or prosecute any alcohol or drug abuse patient.[facility] Reason for Visit (unrecogniz ed section and content) Reason Comments New Patient Reason Comments Preparations For Procedures Pre-injectio n instructions Reason Comments Low Back Pain New Patient Evaluation Reason Comments Pain Post-op Reason Comments Pain Reason Comments Pain Specialty Diagnoses / Procedures Referred By Contac t Referred To Contact Physical Therapy Diagnoses Internal derangement of left knee Procedures MO OFFICE/OUTPATIENT NEW HIGH MDM 60 MINUTES Car Cuellar PA [address] [facility] [address] [place] [address] Maria E Peck PT Referral ID Status Reason Start Date Expiration Date Visits Requested Visits Authorized [id number] Authorized Consult and Treat 07/01/2024 12/28/2024 60 60 FOR RECORDS PERTAINING TO PATIENTS WHO ARE [...] BE BASED ON THE PRIMARY CLINICAL RECORDS. [facility]. provides no warranty or guarantee of the accuracy or completeness of information in this document.
--- NOTE | 2024-12-13 14:17 | P.CN_ITS ---
Consult Note: HPI Data of Consult Patient: new to practice Consult date: 12/13/24 Requesting Physician: Evelyne Polk MD Primary Care Provider: Jason Cervantes MD Consult Narrative Reason for consult: low back pain Narrative: 64yom who presents for evaluation. notes longstanding low back pain history, worsening over past several months to years. imaging reviewed, significant for multilevel spondylosis in lower lumbar spine, as well as disc bulge with resultant stenosis at l4-5, l5-s1. has engaged in a series of provider directed home exercises >6 weeks, without lasting benefit. uses norco on very rare occasions. denies adverse med side effects. cc:: CC: Evelyne Polk MD Review of Systems ROS Status of ROS 10 or more systems reviewed and unremark able except as noted in history and below PFSH [facility] Medical History Migraine ?G43.909 - Migraine, unspecified, not intractable, without status migrainosus (ICD-10) Colon polyp ?K63.5 - Polyp of colon (ICD-10) Sleep apnea ?G47.30 - Sleep apnea, unspecified (ICD-10) Atrial fibrillation ?I48.91 - Unspecified atrial fibrillation (ICD-10) Erectile dysfunction ?N52.9 - Male erectile dysfunction, unspecified (ICD-10) Hypokalemia ?E87.6 - Hypokalemia (ICD-10) New onset a-fib ?I48.91 - Unspecified atrial fibrillation (ICD-10) H/O multiple concussions ?Z87.820 - Personal history of traumatic brain injury (ICD-10) Arthritis ?M19.90 - Unspecified osteoarthritis, unspecified site (ICD-10) Bulging lumbar disc ?M51.36 - Other intervertebral disc degeneration, lumbar region (ICD-10) Chronic GERD ?K21.9 - Gastro-esophageal reflux disease without esophagitis (ICD-10) Hyperlipidemia ?E78.5 - Hyperlipidemia, unspecified (ICD-10) Hypertension ?I10 - Essential (primary) hypertension (ICD-10) Surgical History History of arthroscopy of knee (07/2024) ?Z98.890 - Other specified postprocedural states (ICD-10) H/O nasal septoplasty ?Z98.890 - Other specified postprocedural states (ICD-10) H/O left heart catheterization by ventricular puncture ?Z98.890 - Other specified postprocedural states (ICD-10) Hx of cholecystectomy ?Z90.49 - Acquired absence of other specified parts of digestive tract (ICD- 10) Family History Sister Family history of myocardial infarction Family history of diabetes mellitus Father Family history of cancer Family history of myocardial infarction Family history of hypertension Family history of diabetes mellitus Mother Brain aneurysm Grandmother Family history of stroke Social History Within the past year, how often did you have a drink containing alcohol: monthly or less Within the past year, how many standard drinks containing alcohol did you have on a typical day: 1 or 2 Within the past year, how often did you have six or more drinks on one occasion: never Total score: 0 Score interpretation: A score less than 4 is consistent with normal alcohol consumption. Smoking status: Never smoker Non-prescribed substance use: cannabis (any form) Previous occupational history: Retired Highest level of school completed/degree received: Bachelor's degree Are you now , , , , never or living with a partner: In a typical week, how many times do you talk on the telephone with family, friends, or neighbors: twice per week How often do you get together with friends or relatives: twice per week How often do you attend zoroastrian or orthodox services: 4 or more times per year Do you belong to any clubs or organizations such as zoroastrian groups unions, fraternal or athletic groups, or school groups: no Total score: 3 Score interpretation: A score of greater than or equal to 2 indicates the lowest level of social isolation. Little interest or pleasure in doing things: not at all Feeling down, depressed, or hopeless: several days Feel stressed/tense/nervous/anxious/difficulty sleeping: not at all Do you think of yourself as: straight/heterosexual Gender Identity: male Meds Home Medications and Allergies Home Medications ?Medication ?Instructions ?Recorded ?Confirmed ?Type aspirin 81 mg capsule 81 mg PO DAILY 05/07/24 08/25/24 History chlorthalidone 25 mg tablet 25 mg PO QAM 05/07/24 08/25/24 History gabapentin 300 mg capsule 300 mg PO BID 05/07/24 12/13/24 History rosuvastatin 20 mg tablet 20 mg PO .QHS 05/07/24 08/25/24 History apixaban 5 mg tablet (Eliquis) 5 mg PO BID #60 tabs 05/08/24 08/25/24 Rx metoprolol tartrate 25 mg tablet 25 mg PO BID #60 tabs 05/08/24 08/25/24 Rx potassium chloride 20 mEq 20 meq PO BID #60 tabs 05/08/24 08/25/24 Rx tablet,extended release hydrocodone 5 mg-acetaminophen 325 1 tab PO Q6H PRN pain 08/17/24 08/25/24 History mg tablet pantoprazole 40 mg tablet,delayed mg PO 12/13/24 History release Allergies Allergy/AdvReac Type Severity Reaction Status Date / Time amoxicillin Allergy Intermediate Rash Verified 05/07/24 12:08 thiopental (From Pentothal) Allergy delayed Verified 08/17/24 13:30 emergence Exam Narrative Exam Narrative: Psych-alert and oriented x 3. Attentive and appropriate, constitutionally normal, displays normal mood and affect per situation.? There are no obvious deficits in memory, reasoning, or intellect.? Skin-no obvious rashes, bruising, erythema noted to the patient's area of pain. Extremities- extremities are warm with minimal edema and palpable pulses. Lumbar-no significant tenderness to palpation noted in the lumbar spine and paraspinal musculature.? Pain is elicited with extension, and lateral rotation of the lumbar spine. Range of motion is slightly diminished with these motions due to pain. Facet loading maneuvers are positive bilaterally and do appear to be concordant with the patient's normal complaints of pain.? Coordination remains intact.? Gait remains non-antalgic. Assessment and Plan Assessment and Plan (1) Lumbar spondylosis: Plan 64yom who presents for evaluation. failed conservative measures, as noted. imaging reviewed, as noted. given symptoms and imaging, prudent to attempt diagnostic bilateral l4-5, l5-s1 medial branch block under fluoroscopic guidance with intention of proceeding to radiofrequency ablation. he will call to schedule when ready. meds reviewed, no changes. follow up after procedure.
== END 2024-12-13 12:12 | disposition home or self-care (01) ==
PROVIDERS: PCP Family Medicine; Visit Provider Anesthesiology
DX: M47.816 Spondylosis without myelopathy or radiculopathy, lumbar region (principal)
CPT/HCPCS: G0463

== ENCOUNTER 2025-01-25 03:44 | Emergency (ER) | payer OTHER, SELFPAY ==
--- OUTSIDE RECORDS SUMMARY | 2025-01-25 03:52 | XMS_ITS | CCD ---
Author Organization [facility] Care Team Providers Care Commissioner Conservation Of Resources Name Role Phone Unavailable Unavailable DR AVI YEPEZ Attending Unavailable MARLENI, DR CÁRDENAS Admitting Unavailable MARLENI, DR CÁRDENAS Attending Unavailable MARLENI, DR CÁRDENAS Admitting Unavailable MARLENI, DR CÁRDENAS Consulting Unavailable SALVADOR, DR OSCAR Ingram Consulting Unavailable Avi Yepez Unavailable MD Avi Yepez Primary Care Provider DO Bijan Betts Jr Attending Provider Leslie DAVALOS, Dr. Reilly Hernandez Referring Unavailable Leslie DAVALOS, Dr. Reilly Hernandez Attending Unavailable Dr. Avi Yepez Primary Care Unavail able Avi Yepez MD Unavailable Avi Yepez MD Primary Care Provider DARREN ELIZABETH Attending Unavailable AVI YEPEZ Primary Care Unavailable DARREN ELIZABETH Attending Unavailable NIKOLAY CAMP Admitting Unavailable NIKOLAY CAMP Attending Unavailable NIKOLAY CAMP Referring Unavailable JUAN R LING Attending Unavailable AVI YEPEZ Primary Care Unavailable Avi Yepez Primary Care Physician Avi Yepez MD Primary Care Provider MD Avi Yepez Primary Care Provider MD Rell Adamson Attending Provider JR. CHANCE, ELIAS Saucedo Attending Unavailbrenton THOMAS JR., GEORGE C Referring Unavaila amy [...] BENITEZ Attending Unavailable RICHARD BENITEZ Attending Unavailable Jam LANDA, Evelyne Bradley Attending Unavailable Allergies Allergy Classification Reported Allergen(s) Allergy Type Date of Onset Reaction(s) Facility (20 sources) Amoxicillin; Translations: [amoxicillin] Drug Allergy 0 Hives, Rash [facility] [place] [facility] (1 source) Amoxicillin Drug Allergy [facility] (1 source) traMADol Drug Allergy [facility] (3 sources) Penicillin; Translations: [penicillin] Drug Allergy Weal (disorder) [facility] (16 sources) traMADol; Translations: [TRAMADOL] Drug Allergy 4 Unknown [facility] (1 source) Amoxicillin Drug Allergy 0 [facility] [place] [facility] Repository Medications Current Medications Medication Drug Class(es) Dates Sig (Normalized) Sig (Original) acetaminophen 325 mg / HYDROcodone bitartrate 5 mg oral tablet (14 sources) Opioid Agonist Start: 07-08-2024 take 1 tablet by mouth twice daily as needed for pain Weston 325 mg-5 mg oral tablet 1 tab(s), Oral, BID as needed for pain, Refill(s) 0 Start Date: 07/08/24 Status: Ordered Start: 03-29-2024 End: 06-21-2024 take 1 tablet by mouth every twelve hours HYDROcodone-acetaminophen (Weston) 5-325 MG tablet Take 1 tablet by mouth every 12 (twelve) hours 03/29/2024 06/21/2024 Discontinued (Therapy completed) Start: 09-26-2020 End: 07-31-2024 take 1 tablet by mouth every six hours for pain HYDROcodone-acetaminophen (Weston) 5-325 MG tablet Indications: Post-op pain Take 1 tablet by mouth every 6 (six) hours if needed for severe pain for up to 3 days 12 tablet 07/28/2024 07/31/2024 Active Weston 5-325 MG T ABS TAKE 1 TABLET [...] Start: 05-27-2023 take 1 capsule by mo [facility] twice daily gabapentin (NEURONTIN) 300 mg capsule Take 300 mg by mouth twice daily. 0 05/27/2023 Active take 1 capsule by mo [facility] twice daily Gabapentin 300 MG Oral Capsule [...] [Coronary atherosclerosis of unspecified type of vessel, [place] or graft] 07-08-2024 Chronic Diabetes mellitus without [...] Range Facility Office Visiton 09-09-2024 Follow-up visit [id number] Kim Nichols 1960 M Date Provider Department Center 09/09/2024 3848-RICHARD BENITEZ [facility] Family History Problem Relation Age of Onset Brain Aneurysm Mother Stroke Father Heart attack Sister Family Status - Relation Status Age at Mother Father Sister Level of Service:25727 [place] OFFICE/OUTPATIENT ESTABLISHED LOW MDM 20 MIN Normal [facility] Ambulatory Visit Summaryon 1 11-08-2023 Ambulatory Visit Summary Ambulatory Visit Summary KIM NICHOLS :1960 Visit Date:09/08/2024 Ambulatory Visit Instructions Your Care Team Attending Physician - SNOW LANDA, Rell Marr Primary Care Physician - Avi Yepez MD This Is Your Medications List acetaminophen-hydrocodone (Weston 325 mg-5 mg oral tablet) apixaban (Eliquis [...] What How Much When Instructions Unchanged acetaminophen-hydrocodone (Weston 325 mg-5 mg oral tablet) 1 Tablets [...] choosing us for your care. [facility] General Surgery Office/Clini c Noteon 09-08-2024 General [...] Tab, 25 mg= 1 tab(s), Oral, BID Weston 325 mg-5 mg oral tablet, 1 tab(s), [...] virus vaccine, inactivated 09/12/2023 Recorded SARS-CoV-2 (COVID-19) [id number] 10/14/2022 Recorded influenza virus vaccine, inactivated 10/03/2022 Recorded SARSCoV2 mRNA(ucrneclly-zmdr-jxutvh) vac 03/22/2022 Recorded SARS-CoV-2 (COVID-19) mRNA BNT-162b2 vax 09/03/2021 Recorded influenza virus vaccine, inactivated 08/25/2021 Recorded SARS-CoV-2 (COVID-19) mRNA BNT-162b2 vax 02/13/2021 Recorded SARS-CoV-2 (COVID-19) mRNA BNT-162b2 vax 01/20/2021 Recorded SARS-CoV-2 (COVID-19) mRNA BNT-162b2 vax 01/13/2021 Recorded SARS-CoV-2 (COVID-19) mRNA BNT-162b2 vax 12/23/2020 Recorded influenza virus vaccine, inactivated 08/28/2020 Recorded Normal [facility] Comment on above: Result Comment: Elec tronically Signed By: SNOW LANDA, Rell Mccormick\Date and Time Signed: 09/08/24 16:32 EST Reminderson 08-26-2024 Reminders Reminders From: María Ayala LPN To: N - Clinical; Sent: 08/26/2024 11:53:39 EDT Show up: 07/26/2034 07:00:00 EDT Subject: colonoscopy recall Due Date/Time: 08/25/2034 07:00:00 EDT Reminder/Recall Patient due for screening colonoscopy 08/25/2034. Normal [facility] Pathology Request for Lab Co rpon 08-25-2024 Pathology Request for Lab Le Normal [facility] Comment on above: Order Comment: PATHO LOGY GI SPECIMEN Result Comment: See report. Scanned copy available in EMR. PERFORMED BY: [place] [address] PATHOLOGIST SECURITY DOOR INSTALLER MICHAEL LEMUS M.D. Performed By: #### P ATH TO [facility] #### [address] Ambulatory Visit Summaryon 0 07-20-2024 Ambulatory [...] prescribing physician if questions or concerns acetaminophen-hydrocodone (Weston 325 mg-5 mg oral tablet) apixaban (Eliquis [...] What How Much When Instructions Unchanged acetaminophen-hydrocodone (Weston 325 mg-5 mg oral tablet) 1 Tablets [...] for choosing us for your care. Normal [facility] ALL CBC WITH AUTO DIFFon BASOPHILS ABSOLUTE AUTO 0.0 [facility] Healthcare Basophils/100 WBC (Bld) 0.5 % 0.2 - 2.0 % [facility] Eosinophils/100 WBC (Bld) 3.0 % 0.9 - 7.0 % [facility] Erythrocyte distribution width (RBC) [Ratio] 13.9 % 11.0 - 15.0 % [facility] Hematocrit (Bld) [Volume fraction] 46.2 % 42.0 - 54.0 % [facility] Hemoglobin (Bld) [Mass/Vol] 15.6 g/dL 14.0 - 18.0 g/dL [facility] IMMATURE GRANULOCYTES ABS AUTO 0.03 [facility] Immature granulocytes/100 WBC (Bld) 0.5 % 0.0 - 0.5 % [facility] LYMPHOCYTES ABSOLUTE AUTO 1.4 [facility] Lymphocytes/100 WBC (Bld) 22.3 % 20.5 - 60.0 % [facility] MCH (RBC) [Entitic mass] 28.9 pg 25.9 - 34.0 pg [facility] MCHC (RBC) [Mass/Vol] 33.8 g/dL 29.9 - 35.2 g/dL [facility] MCV (RBC) [Entitic vol] 85.7 fL 80.0 - 94.0 fL [facility] MONOCYTES ABSOLUTE AUTO 0.7 [facility] Monocytes/100 WBC (Bld) 11.6 % 1.7 - 12.0 % [facility] NEUTROPHILS ABSOLUTE AUTO 4.0 [facility] Neutrophils/100 WBC (Bld) 62.1 % 43.0 - 75.0 % [facility] Platelet mean volume (Bld) [Entitic vol] 10.5 fL 9.5 - 13.5 fL [facility] TBH EO # 0.2 [facility] TBH PLT 246 [facility] TB RBC 5.39 [facility]H WBC 6.4 [facility] Office Visiton 06-11-2024 Follow-up visit [id number] Kim Nichols 1960 M Date Provider Department Center 06/11/2024 3848-RICHARD BENITEZ [facility] Family History Problem Relation Age of Onset Brain Aneurysm Mother Stroke Father Heart attack Sister Family Status - Relation Status Age at Mother Father Sister Level of Service:99334 [place] OFFICE/OUTPATIENT NEW MODERATE MDM 45 MINUTES Reason for Visit and Comments: New Patient [Other] - CHEST PAIN/AFIB Normal [facility] CNOVon 2023 CNOV Office Visit (SPSLUH ) KIM NICHOLS ([id number]) 1960 M Date Time Provider Department 08/04/23 8:00 AM JUAN R LING SPSLUH During your visit today, we recorded [...] opioids Medications: [facility] MEDICATIONS: Gabapentin, Weston, Tylenol Have you ever seen a pain [...] completing routine daily living activities? No Bossman Juan R Patino MD 2023 9:14 AM Signed SPINE SURGERY [...] issues. 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 [facility] 07-08-2023 [facility] Telephone (SPNMMN) KIM NICHOLS ([id number]) 1960 M Date Time Provider Department 07/08/23 NIKOLAY CAMP [facility] During your visit today, we recorded the following information about you: Stacy Gallagher RN 07/08/2023 12:56 PM Signed Post Spine Injection phone call: [phone] on 07/08/23 Patient denies fever, chills, new [...] appointment 2-4 weeks post procedure by calling [phone] Patient does not have any questions or [...] Encounter Status:Closed by STACY GALLAGHER on 07/08/23 [facility] HISTORY PHYSICALon HISTORY PHYSICAL HNO ID: [id number] Author: Sherice Galvin APRN.TELEGRAPH INSPECTOR Service: ? Author Type: Nurse Practitioner Type: [...] Prophylaxis/Anticoagulants VTE Prophylaxis: NA SIGNATURE: Sherice Galvin APRN.KIRILL PATIENT NAME: Kim Nichols DATE: July 01, 2023 TIME: 9:04 AM Normal [facility] OPERATIVE NOon 07-01-2023 OPERATIVE NO HNO ID: [id number] Author: Nikolay Camp DO Service: Physical Medicine AND Rehabilitation Author Type: Physician Type: Operative Report Filed: 07/01/2023 9:40 AM Note Text: PROCEDURE REPORT Surgery/Procedure Date: July 01, 2023 Interventionalist: Nikolay Camp DO Procedure(s): Left L5 transforaminal epidural steroid injection Pre-Op/Pre-Procedure Diagnosis: Lumbar radiculopathy Post-Op Diagnosis: same SUBJECTIVE: Kim Nichols is a 62 year old male, who presents to the [facility] for a left L5 transforaminal epidural steroid injection. This is his first (1) procedure. He states he is NPO and has a driver medic for return home. Pain is central low [...] home in stable condition. DO Fátima Castrejon [facility] 06-26-2023 [facility] Telephone (SPNMMN) KIM NICHOLS ([id number]) 1960 M Date Time Provider Department 06/26/23 NIKOLAY CAMP [facility] During your visit today, we recorded the following information about you: Oscar Rollins LPN 06/26/2023 9:20 AM Signed Phoned patient and message left for Kim to confirm appointment for Kim Nichols for spine procedure on 07/01/2023. Patient notified that [place] will call patient the night before with the time to arrive for injection. Patient verbalized understanding of the following: -Provided education on spine procedure and answered questions related to spine injection procedure. -Advanced Nursing Professor is needed to drive patient home. [...] to report. Diabetic: No Patient given number [phone], spine injections schedulers, if there is any [...] Encounter Status:Closed by OSCAR ROLLINS on 06/26/23 [facility] CNOVon 06-02-2023 CNOV Office Visit (SPNSMN ) KIM NICHOLS ([id number]) 1960 M Date Time Provider Department 06/02/23 1:40 PM DARREN ELIZABETH SPNSMN During your visit today, we recorded the following information about you: Pulse Respiration Blood pressure Weight 63/minute 18/minute 128/84 117 kg Height 1.829 m Darren Elizabeth, KRYS.TELEGRAPH INSPECTOR 06/03/2023 1:01 PM Signed SPINE SURGERY OUTPATIENT [...] with him pain. He also is prescribed Weston for breakthrough pain which he only takes [...] well de (more content not included)... Normal [facility] Office Visit (Cardiology)on 05-13-2023 Follow-up visit Diagnoses/Problems Assessed Coronary disease (414.00) (I25.10) Essential hypertension, benign (401.1) (I10) Hyperlipidemia (272.4) (E78.5) Class 2 obesity with body mass index (BMI) of 36.0 to 36.9 in adult (278.00,V85.36) (E66.9,Z68.36) Never a smoker Orders Class 2 obesity with body mass index (BMI) of 36.0 to 36.9 in adult Healthy Weight Tips; Status:Complete - Retrospective Authorization; Done: [id number] Some eating tips that can help you lose weight.; Status:Complete - Retrospective Authorization; Done: [id number] Coronary disease, Hyperlipidemia Renew: Aspirin EC Low Dose 81 MG Oral Tablet Delayed Release; TAKE 1 TABLET DAILY DIRECTED Hyperlipidemia Renew: Rosuvastatin Calcium 20 MG Oral Tablet; take 1 tablet by mouth at bedtime SocHx: Never a smoker Tobacco Use Screening; Status:Complete; Done: [id number] Patient Instructions Please bring all medicines, vitamins, [...] MG Oral CapsuleTAKE 1 CAPSULE TWICE DAILY. Weston 5-325 MG TABSTAKE 1 TABLET EVERY 4 [...] negative for complaint. Vitals Vital Signs Recorded: [id number] 11:22AM Heart Rate64, R Radial Fshzydby209, RUE, Sitting Fwcuiayni17, RUE, Sitting Height6 ft Prrbcw796 lb BMI Isbeomozbj01.21 kg/m2 BSA Calculated2.41 Tobacco Useb) No PHQ-2 [...] Screening.on 023 Adult depression screening assessment No [facility] [address] DO Work Phone: Tobacco use status [facility] b) No [facility] [address] DO Work Phone: Tobacco Screening.on 022 Adult depression screening assessment No [facility] [address] DO Work Phone: Fall risk assessment c) Not medically indicated [facility] [place] [facility] [address] DO Work Phone: Tobacco use status [facility] b) No [facility] [address] DO Work Phone: H PYLORI ANTIBODY IGGon 11-28 H. PYLORI IGG ABS 0.45 Index Value Normal 0.00-0.79 [facility] Comment on above: Result Comment: Nega tive <0.80 Equivocal 0.80 - 0.89 Positive >0.89 Performed By: #### L IPID, TSH, T7, URIC, CMP #### [facility] [address] [place], [place] [address] Dr. Conor Chan INSULINon 12-21-2021 Insulin 55.2 uIU/mL Critically high 2.6-24.9 [facility] Comment on above: Performed By: #### I NSULIN #### [facility] [address] [place] [address] Dr. Conor Chan TESTOSTERONE, TOTALon 2021 Testosterone [Mass/Vol] 380 ng/dL Normal 264-916 [facility] Comment on above: Result Comment: Adul t male reference interval is based on a population of healthy nonobese males (BMI <30) between 19 and 39 years old. Travon, et.al. JCEM 2017,102;3704-8859. PMID: [id number]. Performed By: #### L IPID, TSH, T7, URIC, CMP #### [facility] [address] [place] [address] Dr. Conor Chan CBC AUTO DIFFon 12-20-2021 BASO # 0.0 103/ul Normal 0.0-0.1 [facility] Comment on above: Performed By: #### C BC #### [facility] [address] [place] [address] Dr. Conor Chan Basophils/100 WBC (Bld) 0.5 % Normal 0.2-2.0 [facility] Comment on above: Performed By: #### C BC #### [facility] [address] [place] [address] Dr. Conor Chan EO # 0.2 103/ul Normal 0.0-0.7 [facility] Comment on above: Performed By: #### C BC #### [facility] [address] [place] [address] Dr. Conor Chan Eosinophils/100 WBC (Bld) 3.5 % Normal 0.9-7.0 [facility] Comment on above: Performed By: #### C BC #### [facility] [address] [place] [address] Dr. Conor Chan Erythrocyte distribution width (RBC) [Ratio] 13.8 % Normal 11.0-15.0 [facility] Comment on above: Performed By: #### C BC #### [facility] [address] [place] [address] Dr. Conor Chan Hematocrit (Bld) [Volume fraction] 48.5 % Normal 42.0-54.0 [facility] Comment on above: Performed By: #### C BC #### [facility] [address] [place] [address] [address] Conor Chan Hemoglobin (Bld) [Mass/Vol] 16.3 g/dL Normal 14.0-18.0 [facility] Comment on above: Performed By: #### C BC #### [facility] [address] [place] [address] [address] Conor Chan IG # 0.02 10e3/ul Normal 0.00-0.03 [facility] Comment on above: Performed By: #### C BC #### [facility] [address] [place] [address] Dr. Conor Chan IG % 0.3 % Normal 0.0-0.5 [facility] Comment on above: Performed By: #### C BC #### [facility] [address] [place] [address] Dr. Conor Chan LYMPH # 1.4 103/ul Normal 1.2-3.8 [facility] Comment on above: Performed By: #### C BC #### [facility] [address] [place] [address] Dr. Conor Chan Lymphocytes/100 WBC (Bld) 21.7 % Normal 20.5-60.0 [facility] Comment on above: Performed By: #### C BC #### [facility] [address] [place] [address] Dr. Conor Chan MANUAL DIFF REQ NO Normal [facility] Comment on above: Performed By: #### C BC #### [facility] [address] [place] [address] Dr. Conor Chan MCH (RBC) [Entitic mass] 28.5 pg Normal 25.9-34.0 [facility] Comment on above: Performed By: #### C BC #### [facility] [address] [place] [address] Dr. Conor Chan MCHC (RBC) [Mass/Vol] 33.6 g/dL Normal 29.9-35.2 [facility] Comment on above: Performed By: #### C BC #### [facility] [address] [address] [address] Conor Chan MCV (RBC) [Entitic vol] 84.9 fL Normal 80.0-94.0 [facility] Comment on above: Performed By: #### C BC #### [facility] [address] [address] [address] Conor Chan MONO # 0.6 103/ul Normal 0.3-0.8 [facility] Comment on above: Performed By: #### C BC #### [facility] [address] [address] [address] Conor Chan Monocytes/100 WBC (Bld) 9.3 % Normal 1.7-12.0 [facility] Comment on above: Performed By: #### C BC #### [facility] [address] [place] [address] Dr. Conor Chan NEUT # 4.1 103/ul Normal 1.4-6.5 [facility] Comment on above: Performed By: #### C BC #### [facility] [address] [place] [address] Dr. Conor Chan Neutrophils/100 WBC (Bld) 64.7 % Normal 43.0-75.0 [facility] Comment on above: Performed By: #### C BC #### [facility] [address] [place] [address] Dr. Conor Chan Platelet mean volume (Bld) [Entitic vol] 9.8 fL Normal 9.5-13.5 [facility] Comment on above: Performed By: #### C BC #### [facility] [address] [place] [address] Dr. Conor Chan PLT 235 103/ul Normal 150-450 [facility] Comment on above: Performed By: #### C BC #### [facility] [address] [place] [address] Dr. Conor Chan RBC 5.71 106/ul Normal 4.70-6.10 [facility] Comment on above: Performed By: #### C BC #### [facility] [address] [place] [address] [address] Conor Chan WBC 6.4 103/ul Normal 4.0-11.0 [facility] Comment on above: Performed By: #### C BC #### [facility] [address] [place] [address] Dr. Conor Chan FREE THYROXINE INDEX T7on FTI 2.89 Normal [facility] Comment on above: Performed By: #### L IPID, TSH, T7, URIC, CMP #### [facility] [address] [place] [address] Dr. Conor Chan T3U 34.0 % Normal 23.5-40.5 [facility] Comment on above: Performed By: #### L IPID, TSH, T7, URIC, CMP #### [facility] [address] [place] [address] Dr. Conor Chan T4 [Mass/Vol] 8.50 ug/dL Normal 5.53-11.00 [facility] Comment on above: Performed By: #### L IPID, TSH, T7, URIC, CMP #### [facility] [address] [place] [address] Dr. Conor Chan GLYCOHEMOGLOBIN A1Con 2021 ADA RECOMMENDATION ADA THERAPEUTIC TARG ET 6.0 - 7.0 ACTION SUGGESTED > 7.0 Normal [facility] Comment on above: Performed By: #### A 1C #### [facility] [address] [place] [address] Dr. Conor Chan Glucose [Mass/Vol] 126 mg/dL Normal [facility] Comment on above: Performed By: #### A 1C #### [facility] [address] [place] [address] Dr. Conor Chan HbA1c (Bld) [Mass fraction] 6.0 % Normal <=6.0 [facility] Comment on above: Performed By: #### A 1C #### [facility] [address] [place] [address] Dr. Conor Chan LIPID PROFILEon 12-20-2021 CHOL-HDL RATIO NORM SEE BELOW Normal [facility] Comment on above: Result Comment: 3.3 - 4.4 LOW RISK 4.4 - 7.1 AVERAGE RISK 7.1 - 11.0 MODERATE RISK >11.0 HIGH RISK Performed By: #### L IPID, TSH, T7, URIC, CMP #### [facility] [address] [address] [address] Conor Chan Cholesterol [Mass/Vol] 161 mg/dL Normal <=200 [facility] Comment on above: Performed By: #### L IPID, TSH, T7, URIC, CMP #### [facility] [address] [address] [address] Conor Chan Cholesterol in HDL [Mass/Vol] 50 mg/dL Normal [facility] Comment on above: Performed By: #### L IPID, TSH, T7, URIC, CMP #### [facility] [address] [place] [address] Dr. Conor Chan Cholesterol in LDL [Mass/Vol] 96.0 mg/dL Normal [facility] Comment on above: Performed By: #### L IPID, TSH, T7, URIC, CMP #### [facility] [address] [address] [address] Conor Chan Cholesterol.total/ Cholesterol in HDL [Mass ratio] 3.2 {ratio} Normal [facility] Comment on above: Performed By: #### L IPID, TSH, T7, URIC, CMP #### [facility] [address] [address] [address] Conor Chan HDL NORMAL > or = 60 mg/dl - LO W CARDIOVASCULAR RISK <40 mg/dl - HIGH CARDIOVASCULAR RISK Normal [facility] Comment on above: Performed By: #### L IPID, TSH, T7, URIC, CMP #### [facility] [address] [place] [address] [address] Conor Chan LDL CALC NORMAL SEE BELOW Normal [facility] Comment on above: Result Comment: <100 mg/dl OPTIMAL 100 - 129 mg/dl NEAR OR ABOVE OPTIMAL 130 - 159 mg/dl BORDERLINE HIGH 160 - 189 mg/dl HIGH >190 mg/dl VERY HIGH Performed By: #### L IPID, TSH, T7, URIC, CMP #### [facility] [address] [address] [address] Conor Chan Triglyceride [Mass/Vol] 75 mg/dL Normal <=150 [facility] Comment on above: Performed By: #### L IPID, TSH, T7, URIC, CMP #### [facility] [address] [address] [address] Conor Chan VLDL CALC 15.0 mg/dL Normal [facility] Comment on above: Performed By: #### L IPID, TSH, T7, URIC, CMP #### [facility] [address] [address] [address] Conor Chan PROF 14(COMP METB)on 022 Albumin [Mass/Vol] 3.7 g/dL Normal 3.5-5.0 [facility] Comment on above: Performed By: #### L IPID, TSH, T7, URIC, CMP #### [facility] [address] [place] [address] Dr. Conor Chan Albumin/Globulin [Mass ratio] 0.9 {ratio} Normal [facility] Comment on above: Performed By: #### L IPID, TSH, T7, URIC, CMP #### [facility] [address] [place] [address] Dr. Conor Chan ALP [Catalytic activity/Vol] 58 U/L Normal 38-126 [facility] Comment on above: Performed By: #### L IPID, TSH, T7, URIC, CMP #### [facility] [address] [place] [address] Dr. Conor Chan ALT [Catalytic activity/Vol] 40 U/L Normal 21-72 [facility] Comment on above: Performed By: #### L IPID, TSH, T7, URIC, CMP #### [facility] [address] [place] [address] Dr. Conor Chan Anion gap [Moles/Vol] 5.5 mmol/L Normal [facility] Comment on above: Performed By: #### L IPID, TSH, T7, URIC, CMP #### [facility] [address] [place] [address] Dr. Conor Chan AST [Catalytic activity/Vol] 18 U/L Normal 17-59 [facility] Comment on above: Performed By: #### L IPID, TSH, T7, URIC, CMP #### [facility] [address] [place] [address] Dr. Conor Chan Bilirubin [Mass/Vol] 0.5 mg/dL Normal 0.2-1.3 [facility] Comment on above: Performed By: #### L IPID, TSH, T7, URIC, CMP #### [facility] [address] [place] [address] Dr. Conor Chan Calcium [Mass/Vol] 9.9 mg/dL Normal 8.4-10.2 [facility] Comment on above: Performed By: #### L IPID, TSH, T7, URIC, CMP #### [facility] [address] [place] [address] Dr. Conor Chan Chloride [Moles/Vol] 97 mmol/L Critically low 98-107 [facility] Comment on above: Performed By: #### L IPID, TSH, T7, URIC, CMP #### [facility] [address] [place] [address] Dr. Conor Chan CO2 [Moles/Vol] 30.7 mmol/L Critically high 22.0-30.0 [facility] Comment on above: Performed By: #### L IPID, TSH, T7, URIC, CMP #### [facility] [address] [place] [address] Dr. Conor Chan Creatinine [Mass/Vol] 1.04 mg/dL Normal 0.66-1.25 [facility] Comment on above: Performed By: #### L IPID, TSH, T7, URIC, CMP #### [facility] [address] [place] [address] Dr. Conor Chan EGFR-AF UKRAINIAN >60 Normal >=60 [facility] Comment on above: Performed By: #### L IPID, TSH, T7, URIC, CMP #### [facility] [address] [place] [address] Dr. Conor Chan EGFR-NON AF UKRAINIAN >60 Normal >=60 [facility] Comment on above: Performed By: #### L IPID, TSH, T7, URIC, CMP #### [facility] [address] [place] [address] Dr. Conor Chan Globulin (S) [Mass/Vol] 4.2 g/dL Normal [facility] Comment on above: Performed By: #### L IPID, TSH, T7, URIC, CMP #### [facility] [address] [place] [address] Dr. Conor Chan Glucose [Mass/Vol] 122 mg/dL Critically high 74-106 T [facility] Comment on above: Performed By: #### L IPID, TSH, T7, URIC, CMP #### [facility] [address] [place] [address] Dr. Conor Chan Potassium [Moles/Vol] 3.2 mmol/L Critically low 3.4-5.0 [facility] Comment on above: Performed By: #### L IPID, TSH, T7, URIC, CMP #### [facility] [address] [place] [address] Dr. Conor Chan Protein [Mass/Vol] 7.9 g/dL Normal 6.1-8.2 [facility] Comment on above: Performed By: #### L IPID, TSH, T7, URIC, CMP #### [facility] [address] [place] [address] Dr. Conor Chan Sodium [Moles/Vol] 130 mmol/L Critically low 137-145 Th [facility] Comment on above: Performed By: #### L IPID, TSH, T7, URIC, CMP #### [facility] [address] [place] [address] Dr. Conor Chan Urea nitrogen [Mass/Vol] 15.0 mg/dL Normal 9.0-20.0 [facility] Comment on above: Performed By: #### L IPID, TSH, T7, URIC, CMP #### [facility] [address] [place] [address] Dr. Conor Chan Urea nitrogen/Creatinin e [Mass ratio] 14.4 mg/mg Normal [facility] Comment on above: Performed By: #### L IPID, TSH, T7, URIC, CMP #### [facility] [address] [place] [address] Dr. Conor Chan TSHon 12-20-2021 TSH 2.122 uIU/mL Normal 0.470-4.680 [facility] Comment on above: Performed By: #### L IPID, TSH, T7, URIC, CMP #### [facility] [address] [place] [address] Dr. Conor Chan TSH RANGE SEE BELOW Normal [facility] Comment on above: Result Comment: <0.3 4 UIU/ml HYPERTHYROID 0.34-5.60 UIU/ml EUTHYROID >5.60 UIU/ml HYPOTHYROID Performed By: #### L IPID, TSH, T7, URIC, CMP #### [facility] [address] [place] [address] Dr. Conor Chan URIC ACID SERUMon 12-20-2021 Urate [Mass/Vol] 7.3 mg/dL Normal 3.5-8.5 [facility] Comment on above: Performed By: #### L IPID, TSH, T7, URIC, CMP #### [facility] [address] [place] [address] Dr. Conor Chan XR LSPINE MIN 4 [...] by: OSCAR FRANCO Date: 2021-12-20 10:06 Normal [facility] Vital Signs Date Time Vital Sign Value Performing Clinician Facility 07-20-2024 13:29-0400 Blood Pressure Location Rell VALENCIAClif [facility] [place] 07-20-2024 13:29-0400 Diastolic blood pressure 78 mm[Hg] Rell VALENCIAL [facility] 07-20-2024 13:29-0400 Heart rate 72 /min Rell VALENCIAL [facility] 07-20-2024 13:29-0400 Respiratory rate 16 /min Rell VALENCIAL [facility] 07-20-2024 13:29-0400 Systolic blood pressure 116 mm[Hg] Rell VALENCIAL [facility] 07-08-2024 09:47-0400 Body height 182.9 cm Car LUCIANO Work Phone: [facility] 07-08-2024 09:47-0400 Body mass index (BMI) [Ratio] 36.84 kg/m2 Car LUCIANO Work Phone: [facility] 07-08-2024 09:47-0400 Body weight 123.2 kg Car LUCIANO Work Phone: [facility] 2023 08:03-0400 Body height 182.9 cm Bilal Butt Work Phone: [facility] 2023 08:03-0400 Body weight 120.2 kg Bilal Butt Work Phone: [facility] 06-02-2023 13:26-0400 Body height 182.9 cm Darren Elizabeth APRN.TELEGRAPH INSPECTOR Work Phone: [facility] 06-02-2023 13:26-0400 Body weight 117.03 kg Darren Elizabeth APRN.TELEGRAPH INSPECTOR Work Phone: [facility] 06-02-2023 13:26-0400 Diastolic blood pressure 84 mm[Hg] Darren Elizabeth APRN.TELEGRAPH INSPECTOR Work Phone: [facility] 06-02-2023 13:26-0400 Heart rate 63 /min Darren Elizabeth APRN.TELEGRAPH INSPECTOR Work Phone: [facility] 06-02-2023 13:26-0400 Respiratory rate 18 /min Darren Clara THRESHING OPERATOR.TELEGRAPH INSPECTOR Work Phone: [facility] 06-02-2023 13:26-0400 SaO2% (BldA) [Mass fraction] 95 % Darrensalome Elizabeth THRESHING OPERATOR.TELEGRAPH INSPECTOR Work Phone: [facility] 06-02-2023 13:26-0400 Systolic blood pressure 128 mm[Hg] Darrensalome Elizabeth THRESHING OPERATOR.TELEGRAPH INSPECTOR Work Phone: [facility] 05-13-2023 11:22-0400 Body height 182.88 cm Avi M Hoy Work Phone: [facility] 250 DO Work Phone: 05-13-2023 11:22-0400 Body mass index (BMI) [Ratio] 36.21 kg/m2 Avi M Hoy Work Phone: [facility] 250 DO Work Phone: 05-13-2023 11:22-0400 Body surface area Derived from formula 2.41 m2 Avi M Hoy Work Phone: [facility] 250 DO Work Phone: 05-13-2023 11:22-0400 Body weight 121.11 kg Avi M Hoy Work Phone: [facility] 250 DO Work Phone: 05-13-2023 11:22-0400 Diastolic blood pressure 78 mm[Hg] Avi M Hoy Work Phone: [facility] 250 DO Work Phone: 05-13-2023 11:22-0400 Heart rate 64 /min Avi M Hoy Work Phone: [facility] 250 DO Work Phone: 05-13-2023 11:22-0400 Systolic blood pressure 132 mm[Hg] Avi M Hoy Work Phone: [facility] 250 DO Work Phone: 05-07-2022 11:36-0400 Body height 182.88 cm Avi Aguilar Hoy Work Phone: [facility] 250 DO Work Phone: 05-07-2022 11:36-0400 Body mass index (BMI) [Ratio] 38.38 kg/m2 Avi Aguilar Hoy Work Phone: [facility] 250 DO Work Phone: 05-07-2022 11:36-0400 Body surface area Derived from formula 2.47 m2 Avi Lauren Hoy Work Phone: [facility] 250 DO Work Phone: 05-07-2022 11:36-0400 Body weight 128.37 kg Avi Aguilar Hoy Work Phone: [facility] 250 DO Work Phone: 05-07-2022 11:36-0400 Diastolic blood pressure 72 mm[Hg] Avi Aguilar Hoy Work Phone: [facility] 250 DO Work Phone: 05-07-2022 11:36-0400 Heart rate 66 /min Avi Aguilar Hoy Work Phone: [facility] 250 DO Work Phone: 05-07-2022 11:36-0400 Systolic blood pressure 110 mm[Hg] Avi Aguilar Hoy Work Phone: [facility] 250 DO Work Phone: Encounters Encounter Date Encounter Type Care Provider Facility Start: 12-13-2024 End: 12-13-2024 ambulatory Evelyne Polk MD Facility: [facility] Start: 09-09-2024 End: 09-09-2024 ambulatory [facility] Start: 09-08-2024 End: 09-08-2024 ambulatory Rell Marr ANNIEClif Facility:[facility] [place] Start: 09-08-2024 End: 09-08-2024 Patient encounter procedure Rell ADAMSON [facility] [place] Start: 08-30-2024 End: 08-30-2024 Bamboo flowsheet Car [...] 08-25-2024 ambulatory MD Avi Yepez Work Phone: [facility] Work Phone: Start: 08-25-2024 End: 08-25-2024 Departed Referred MD Avi Yepez Work Phone: [facility] Start: 08-25-2024 End: 08-25-2024 ambulatory Rell ADAMSON Facility:[id number] Start: 08-16-2024 End: 08-16-2024 Bamboo flowsheet Car Cuellar PA Work Phone: [facility] Start: 08-16-2024 End: 08-16-2024 Bamboo flowsheet Car Cuellar PA Work Phone: [facility] Start: 08-16-2024 End: 08-16-2024 Postop follow up visit related to original px Car LUCIANO Work Phone: [facility] Comment on above: S/P left knee arthro scopy (Primary Dx) Start: 08-16-2024 End: 08-16-2024 ambulatory CAR CUELLAR Not Available Start: 07-28-2024 End: 07-28-2024 Refill Corona Peng COUNTER INTELLIGENCE AGENT Work Phone: [facility] Comment on above: Post-op pain (Primar y Dx) Start: 07-20-2024 End: 07-20-2024 ambulatory Rell ADAMSON Facility:[facility] Start: 07-20-2024 End: 07-20-2024 Patient encounter procedure Rell ADAMSON [facility] Start: 07-19-2024 End: 07-19-2024 Bamboo flowsheet Maria E Liv PT [facility] Start: 07-19-2024 End: 07-19-2024 Bamboo flowsheet Maria E [place] [facility] Start: 07-19-2024 End: 07-19-2024 ambulatory MARIA E LIV [facility] Comment on above: Internal derangement of [...] Patient encounter procedure Car LUCIANO Work Phone: [facility] Comment on above: Preop examination (P rimary Dx); Internal derangement of left knee Start: 07-08-2024 End: 07-08-2024 Preprocedural examination done Car Cuellar PA Work Phone: [facility] Start: 07-08-2024 End: 07-08-2024 ambulatory CAR CUELLAR Not Available Start: 07-05-2024 [facility] Start: 06-21-2024 End: 06-21-2024 Office outpatient visit 25 minutes Jr. Elias Thomas DO Work Phone: [facility] Comment on above: Internal derangement of left knee (Primary Dx) Start: 06-21-2024 End: 06-21-2024 ambulatory ELIAS EDEN Not Available Start: 06-11-2024 End: 06-11-2024 ambulatory [facility] Start: 06-09-2024 Non-patient / Non-visit MD Indra Yepez Work Phone: [facility] Work Phone: Start: 05-10-2024 End: 05-10-2024 ambulatory ELIAS EDEN Not Available Start: 2023 End: 2023 ambulatory BILAL CHINA BUTT Facility:[facility] Start: 2023 End: 2023 Office outpatient new 30 minutes Bilal Chinaanjana Ling MD Work Phone: [facility] Comment on above: Meralgia paresthetic a of left side (Primary Dx); Chronic midline low back pain without sciatica Start: 08-01-2023 End: 08-01-2023 ambulatory Darren Elizabeth THRESHING OPERATOR.TELEGRAPH INSPECTOR Work Phone: [facility] Comment on above: Dr chong Cut me open Start: 07-01-2023 End: 07-01-2023 ambulatory NIKOLAY CAMP Facility:[facility] Start: 06-26-2023 Telephone encounter Nikolay Camp DO Work Phone: [facility] Comment on above: Preparations For Pro cedures (Pre-injection instructions) Start: 06-19-2023 Orders Only Nikolay hall DO Work Phone: Neurology Comment on above: Lumbar radiculopathy (Primary Dx); Displacement of lumbar intervertebral disc without myelopathy Start: 06-02-2023 End: 06-03-2023 ambulatory DARREN ELIZABETH Facility:[facility] Start: 06-02-2023 End: 06-02-2023 Patient encounter procedure Darren Elizabeth THRESHING OPERATOR.TELEGRAPH INSPECTOR Work Phone: [facility] Comment on above: Radiculopathy, lumba r region (Primary Dx); Lumbar disc herniation Start: 05-13-2023 Office outpatient vi sit 25 minutes Avi Yepez Work Phone: [facility] [employer] 250 DO Work Phone: Start: 05-13-[address] Reilly ochoa [facility] Facility: Start: 05-06-2023 Chart abstracting None (Historical) Neurology Start: 12-16-2022 Rx Renewal Avi Yepez Work Phone: [facility] 250 DO Work Phone: Start: 07-17-2022 End: 07-17-2022 Departed Referred MD Avi Yepez Work Phone: [facility] [address] 250 Start: 05-07-2022 Office outpatient vi sit 25 minutes Avi Yepez Work Phone: [facility] 250 DO Work Phone: Start: 01-03-[address] AVI YEPEZ Facility :[facility] Start: 12-21-2021 Encounter for genera l adult medical examination without abnormal findings DR AVI YEPEZ [facility] Start: 12-20-2021 End: 12-21-[address] AIV YEPEZ Facility:[facility] Start: 12-20-2021 End: 12-21-2021 Encounter for general adult medical examination without abnormal findings DR AVI YEPEZ Facility:[facility] Start: 12-10-2021 Rx Renewal Reilly mcmahon MD Work Phone: [facility] 250 DO Work Phone: Procedures Date Procedure Procedure Detail Performing Clinician Start: 08-25-2024 Colonoscopy Rell MORALEZ Start: 08-25-2024 Esophagogastroduodenoscopy Rell ADAMSON Start: 07-09-2024 ALL CBC WITH AUTO DIFF Car LUCIANO Work Phone: Start: 07-17-2022 Radiologic examination of knee MD Avi Yepez Work Phone: Start: 12-20-[address] RONDA YEPEZ Comment on above: Performed By: #### P [facility] #### [facility] [address] [place] [address] Dr. Conor Chan Start: 06-09-2020 Total colonoscopy Chaz Nelson MD Work Phone: Start: 07-02-2019 End: 07-02-2019 Colonoscopy Darren Elizabeth THRESHING OPERATOR.TELEGRAPH INSPECTOR Work Phone: Cardiac catheterization Will ernetta Nelson MD Work Phone: Cardiac catheterization Jorge ADAMSON Cholecystectomy Reilly miranda MD Work Phone: Cholecystectomy Rell ADAMSON Nasal septoplasty Rell MORALEZ Plan of Treatment Date Care Activity Detail Author Start: 07-02-2029 Screening for malign ant neoplasm of colon [facility] Start: 12-20-2026 PROSTATE CANCER SCREENING DISCUSSION PROSTATE CANCER SCREENING DISCUSSION [facility] Start: 08-30-2024 End: 08-30-2024 Patient encounter procedure 08/30/2024 10:15 AM EST Office Visit [facility] [address] [place] [address] Car Cuellar, PA [address] [place] [address] S/P left knee arthroscopy (Primary Dx) [facility] Comment on above: S/P left knee arthro scopy (Primary Dx) Start: 08-25-2024 [facility] Start: 08-16-2024 End: 08-16-2024 Patient encounter procedure 08/16/2024 10:00 AM EDT Office Visit [facility] [address] [place] [address] Car Cuellar, PA [address] [place] [address] S/P left knee arthroscopy (Primary Dx) [facility] Comment on above: S/P left knee arthro scopy (Primary Dx) Start: 08-12-2024 End: 08-12-2024 Patient encounter procedure 08/12/2024 9:00 AM EDT Office Visit [facility] [address] [place] [address] Car Cuellar, PA [address] [place] [address] [facility] Start: 07-29-2024 End: 07-29-2024 Patient encounter procedure 07/29/2024 10:45 AM EDT Procedure Visit [facility] Jr. Elias Thomas DO [address] [place] [address] [facility] Start: 07-19-2024 End: 07-19-2024 ambulatory [facility] Comment on above: Internal derangement of left knee Start: 07-08-2024 End: 07-08-2025 CBC W Auto Differential panel - Blood CBC and differential Lab Routine Preop examination Expected: 07/08/2024 (Approximate), Expires: 07/08/2025 [facility] Work Phone: Comment on above: Expected: 07/08/2024 (Approximate), Expires: 07/08/2025 Start: 07-08-2024 End: 07-08-2024 Patient encounter procedure 07/08/2024 10:00 AM EDT Office Visit [facility] [address] [place] [address] Car Cuellar PA [address] [place] [address] Preop examination (Primary Dx); [facility] Comment on above: Preop examination (P rimary Dx); Internal derangement of left knee Start: 06-27-2024 Influenza vaccination Influenza Vacc ine (#1) [facility] Start: 06-27-2023 Influenza vaccination [facility] Start: 05-13-2023 FUV, Provider: Reilly Nelson, Status: Pen, Time: 11:10 AM FUV, Provider: Reilly Nelson, Status: Pen, Time: 11:10 AM [facility] 250 DO Work Phone: Start: 10-27-2022 DEPRESSION ASSESSMENT DEPRESSION ASS ESSMENT [facility] Start: 05-17-2022 COVID-19 VACCINE (6 - Pfizer series) COVID-19 VACCINE (6 - Pfizer series) [facility] Start: 05-15-2022 FUV, Provider: Reilly Nelson, Status: Pen, Time: 2:00 PM FUV, Provider: Reilly Nelson, Status: Pen, Time: 2:00 PM [facility] 250 DO Work Phone: Start: 07-02-2020 Colonoscopy COLONOSCOPY [facility] Start: 07-02-2020 COLORECTAL CANCER SCREENING COLORECTAL CANCER SCREENING [facility] Start: 2016 Prostate Cancer Screening Discussion Prostate Cancer Screening Discussion [facility] Start: 2011 SHINGRIX VACCINE (1 of 2) SHINGRIX VACCINE (1 of 2) [facility] Start: 2006 COLOGUARD (FIT-DNA) COLOGUARD (FIT-D NA) [facility] Start: [address] COLONOGRAPHY [facility] Start: 2006 DIABETES SCREEN DIABETES SCREEN [facility] Start: 2006 Diabetes Screening Diabetes Screenin g [facility] Start: 2006 FECAL OCCULT BLOOD FECAL OCCULT BLOO D [facility] Start: 2006 SIGMOIDOSCOPY SIGMOIDOSCOPY [facility] Start: 1996 Lipid 1996 panel - S hayden or Plasma Lipid Screening [facility] Start: 1996 LIPID SCREEN LIPID SCREEN [facility] Start: 1980 Urine microalbumin profile [facility] Start: 1979 HEPATITIS C SCREENING HEPATITIS C SC REENING [facility] Start: 1979 HIV SCREENING HIV SCREENING [facility] Start: 1961 Screening for malign ant neoplasm of colon [facility] End: 09-02-2024 Radex spine lumbosacral minimum 4 views XR LUMBAR MOTION 4V AP/LAT/ FLEX/EXT Radiology Routine Meralgia paresthetica of left side 1 Occurrences starting 2023 until 09/02/2024 [facility] Work Phone: Comment on above: 1 Occurrences starti ng 2023 until 09/02/2024 SPINE INTERVENTION PROCEDURE SPINE INTERVENTION PROCEDURE Procedures Routine Radiculopathy, lumbar region Lumbar disc herniation Ordered: 06/02/2023 [facility] Work Phone: Comment on above: Ordered: 06/02/2023 [facility] RACHAEL [facility] Immunizations Immunization Date Immunization Notes Care Provider Deepa [facility] 09-12-2023 influenza virus vacc ine, unspecified formulation JrHerbie Stepanic DO Work Phone: [facility] 10-14-2022 Pfizer COVID-19 Vac Bivalent 30 MCG/0.3ML Intramuscular Suspension Avi Yepez Work Phone: [facility] 10-03-2022 influenza, injectabl e, quadrivalent, preservative free Avi Yepez Work Phone: [facility] 250 DO Work Phone: 10-03-2022 influenza virus vacc ine, unspecified formulation Darren Elizabeth THRESHING OPERATOR.TELEGRAPH INSPECTOR Work Phone: [facility] 03-22-2022 Comirnaty 30 MCG/0.3 ML Intramuscular Suspension Avi Yepez Work Phone: [facility] 250 DO Work Phone: 03-22-2022 Moderna COVID-19 Vac cine 100 MCG/0.5ML Intramuscular Suspension Avi Yepez Work Phone: [facility] Comment on above: Series: 03-22-2022 SARS-CoV-2 mRNA (vsexlrgypbs-qseh-rjgvcv e) vaccine Rell ADAMSON [facility] 03-22-2022 zoster vaccine recombinant Avi Yepez Work Phone: [facility] 250 DO Work Phone: 09-03-2021 Pfizer-BioNTech COVI D-19 Vacc 30 MCG/0.3ML Intramuscular Suspension Avi Yepez Work Phone: [facility] 08-25-2021 influenza virus vacc ine, unspecified formulation Rell ADAMSON [facility] 08-25-2021 influenza, injectabl e, quadrivalent, preservative free Avi Yepez Work Phone: [facility] 250 DO Work Phone: 08-25-2021 zoster vaccine recombinant Avi Yepez Work Phone: [facility] 250 DO Work Phone: 02-13-2021 Pfizer-BioNTech COVI D-19 Vacc 30 MCG/0.3ML Intramuscular Suspension Avi Yepez Work Phone: [facility] 01-20-2021 SARS-CoV-2 (COVID-19 ) mRNA BNT-162b2 vax Rell ADAMSON [facility] 01-13-2021 Pfizer-BioNTech COVI D-19 Vacc 30 MCG/0.3ML Intramuscular Suspension Avi Yepez Work Phone: [facility] 12-23-2020 Pfizer-BioNTech COVI D-19 Vacc 30 MCG/0.3ML Intramuscular Suspension Avi Yepez Work Phone: [facility] 08-28-2020 influenza, injectabl e, quadrivalent, preservative free Avi Yepez Work Phone: [facility] 250 DO Work Phone: 08-28-2020 influenza virus vacc ine, unspecified formulation Juan R Ling MD Work Phone: [facility] Payers Date Payer Category Payer Self-pay [id number] [id number] 2021 Private Health Insurance [id number] 2007 Managed Care HMO (unspecified) [id number]. 3 .[id number] 1960 Unknown [id number] 2.16.840.1.773775.3.579.2.593 1960 Unknown [id number] 2.16.840.1.317706.3.579.2.593 1961 Unknown [id number] 2.16.840.1.335467.3.579.2.356 1961 Unknown [id number] 2.16.840.1.851294.3.579.2.125 9 1961 Unknown [id number] 2.16.840.1.886734.3.579.2.125 9 1961 Unknown [id number] 2.16.840.1.945943.3.579.2.125 9 1961 Unknown [id number] 2.16.840.1.291101.3.579.2.125 9 1961 Unknown [id number] 2.16.840.1.050919.3.579.2.125 9 1961 Unknown [id number] 2.16.840.1.262405.3.579.2.125 9 1961 Unknown [id number] 2.16.840.1.998220.3.579.2.125 9 1961 Unknown [id number] 2.16.840.1.989452.3.579.2.727 1961 Unknown [id number] 2.16.840.1.400169.3.579.2.727 1961 Unknown [id number] 2.16.840.1.638659.3.579.2.727 1961 Unknown [id number] 2.16.840.1.499513.3.579.2.196 1958 Private Health Insurance [id number] Self-pay [id number] Unknown Unknown [facility] [id number] Unknown [id number] 2.16.840.1.994840.3.579.2.531 Social History Date Type Detail Facility Start: 06-02-2023 End: 07-08-2024 Consumes alcohol Consumes alcohol [facility] Comment on above: socially; occasional; Start: 09-28-2020 End: 05-10-2024 Tobacco smoking status INIS Never smoked tobacco (finding) [facility] Start: 1960 Sex Assigned At Male F [facility] Tobacco smoking stat us INIS Tobacco smoking consumption unknown [facility] Start: 1960 Sex Assigned At Not on file [facility] Start: 06-02-2023 End: 07-08-2024 Gender identity Not on file [facility] Start: 06-02-2023 End: 05-10-2024 Tobacco use and exposure Smokeless tobacco non-user [facility] National Score (1-10 0), lower number is lower risk 62 [facility] Start: 07-28-2023 Gender identity Identifies as male gender (finding) [facility] Start: 07-28-2023 Sexual orientation Heterosexual (jose alfredo tolentino) [facility] Start: 05-10-2024 End: 07-08-2024 Alcoholic beverage intake Current drinker of alcohol (finding) [facility] Start: 05-10-2024 Alcohol Comment 1/WK [facility] Functional Status Date Assessment Result Facility 09-08-2024 Functional Status N/A [facility] [place] 07-20-2024 Functional Status N/A [facility] [place] Clinical Notes 05-06-2023 to 09-09-2024 ANKITA Stapleton - 08/30/2024 10:15 AM ANKITA Christiansen - 08/16/2024 10:00 AM EDTPatient InstructionsTelephone Encounter [...] as needed Richard Benitez MD Interventional Cardiology [facility] 08-30-2024 History of Presen t illness Narrative [...] requiring urgent evaluation. documented in this encounter [facility] 08-16-2024 History of Presen t illness Narrative [...] requiring urgent evaluation. documented in this encounter [facility] 08-16-2024 Instructions ANKITA Stapleton - 08/16/2024 10:00 [...] than 10 mins documented in this encounter [facility] 07-28-2024 Telephone encounter Note Post op pain rx. PDMP reviewed [facility] 07-28-2024 Miscellaneous Notes Post op pain rx. PDMP reviewed documented in this encounter [facility] 07-20-2024 Note General Surgery Offi ce/Clinic Note [...] tab(s), Oral, Ivy (more content not included)... [facility] Comment on above: Result Comment: Elec tronically Signed By: SNOW LANDA, Rell Mccormick\Date and Time Signed: 07/20/24 14:20 EDT 07-19-2024 History of Presen t illness Narrative Physical Therapy Physical Therapy Evaluation Visit Patient Name: Kim Nichols Today's Date: 07/19/2024 Encounter Diagnoses Name Primary? [...] sign below. Date: documented in this encounter [facility] 07-08-2024 History of Presen t illness Narrative [...] SCOPE 07/29 @TANMAY MONTEZ INSTRUCTIONS GIVEN TODAY 9/12 @10AM - [place] [facility] CLEARANCE ; OBTAINED - ELIQUIS PROTOCOL PT REFERRAL SENT ; CRUTCH TRAIN AND DISPENSE NPAR ([id number], [id number]) Follow up for 08/12 @9AM W/AMANDA IN [place]. documented in this encounter [facility] 06-21-2024 History of Presen t illness Narrative Images from the original note were not included. HISTORY OF PRESENT ILLNESS: EST PT Kim Nichols is an 63 y.o. @ male. EST PT RECHECK LT KNEE PAIN - POSSIBLY DISCUSS SURGERY- PT WAS GETTING A CARDIAC WORK UP- PT DID SEE DR BENITEZ (BLOOD BANK COORDINATOR) 06/11/24; PT STATES HE IS CLEARED (OFFICE NOT IS UNDER ENCOUNTER) PT STATES HE WAS ADMITTED TO [facility] FOR A-FIB X 1DAY ~05/17/24 XRAY LT KNEE [facility] 05/10/24 XRAY LT KNEE [facility] 03/12/24 MRI LT KNEE [facility] 04/28/24 CORTISONE INJ 03/2024; TEMP RELIEF - [...] Use: Low Risk (06/11/2024) Received from [facility] Patient History Smoking Tobacco Use: Never Smokeless [...] I am acting as scribe for Dr. Thomas/jacqueline, PLAN: We have reviewed prior (L) knee xrays / MRI results. After examination of his left knee today we have discussed both surgical and nonsurgical intervention, with the risks and benefits of both. Patient is requesting a (L) knee scope as the pain is affecting his ADL's - increased pain with ambulation. Patient states that he was cleared per his reception specialist ; we will need to obtain clearance [...] Elias Thomas D.O. documented in this encounter [facility] 06-11-2024 Note Cardiology Clinic No te Chief [...] without additional cardiac (more content not included)... [facility] 2023 Note HNO ID: [id number] Author: Juan R Ling MD Service: ? [...] issues. 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 [facility] 2023 Note HNO ID: [id number] Author: Bossman Saunders Service: ? Author Type: [...] opioids Medications: See medication reconciliation list in [facility] MEDICATIONS: Gabapentin, Weston, Tylenol Have you ever seen a pain [...] routine daily living activities? No [facility] 2023 History of Presen t illness [...] issues. 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 Author Type: Nurse Practitioner Type: Progress Notes Filed: 08/01/2023 1:30 PM Note Text: SPINE SURGERY ESTABLISHED VISIT This is a virtual visit using [employer] Video Visit. It required patient-provider interaction for the medical decision making as documented below. DATE OF SERVICE: 08/01/2023 DATE OF LAST VISIT: 06/02/2023 SUBJECTIVE: HPI:Kim Nichols is a 62 year old male presenting via virtual vist s/p Left L5 transforaminal epidural steroid injection on 07/01/[address] Camp. [place] great initially and for the first few days after injection, symptoms returned shortly after. Patient has increased his Gabapentin 300 mg from BID to TID and is feeling good today. 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 SIGNATURE: Darren Elizabeth APRN.CNP PATIENT NAME: iKm Nichols DATE: August 01, 2023 TIME: 12:53 PM PAGER: [facility] 06-26-2023 Miscellaneous Notes Phoned patient and message left for Kim to confirm appointment for Kim Nichols for spine procedure on 07/01/2023. Patient notified that [place] will call patient the night before with the time to arrive for injection. Patient verbalized understanding of the following: -Provided education on spine procedure and answered questions related to spine injection procedure. -Advanced Nursing Professor is needed to drive patient home. [...] to report. Diabetic: No Patient given number [phone], spine injections schedulers, if there is any [...] POST INJECTION INSTRUCTIONS documented in this encounter [facility] 06-02-2023 Note HNO ID: [id number] Author: Darren Elizabeth APRN.KIRILL Service: ? Author Type: Nurse Practitioner [...] with him pain. He also is prescribed Weston for breakthrough pain which he only takes [...] Normal. DATA REVIE (more content not included)... [facility] 06-02-2023 History of Presen t illness [...] with him pain. He also is prescribed Weston for breakthrough pain which he only takes [...] which included preparing to see the patient, [id number] patient care, completing clinical documentation, obtaining and/or reviewing separately obtained history, performing a medically appropriate examination, counseling and educating the patient/family/caregiver, independently interpreting results (not separately reported), and communicating results to the patient/family/caregiver. SIGNATURE: Darren Elizabeth APRN.KIRILL PATIENT NAME: Kim Nichols DATE: June 02, 2023 TIME: 1:57 PM PAGER: documented in this encounter [facility] 05-14-2023 Note HNO ID: [id number] Author: Ember Delatorre PA-C Service: ? Author Type: Physician Alarm Field Technician Type: Progress Notes Filed: 05/14/2023 4:17 PM Note Text: Per Triage: Kim Nichols is a 62 year old male that requests evaluation of lumbar spine. Per review, they have symptoms of back and LLE pain. Positive for numbness. CMT: Medication: Gabapentin, Tylenol, Weston Studies (Reports unless indicated) MRI Lumbar: L4/5 moderate left foramen narrowing which may contribute to patient's symptoms 2. L5/S1 disc protrusion without significant canal or foramen narrowing. Disposition: Please schedule with surgical SANDY. Consider if injection is appropriate or on effective dose of Neurontin. Also see if symptoms correlate with imaging. [facility] 05-14-2023 History of Presen t illness Narrative Per Triage: Kim Nichols is a 62 year old male that requests evaluation of lumbar spine. Per review, they have symptoms of back and LLE pain. Positive for numbness. CMT: Medication: Gabapentin, Tylenol, Weston Studies (Reports unless indicated) MRI Lumbar: L4/5 [...] Health Provider or Pain Management Provider at [facility]? No If answer is YES [...] facility where the MRI/CT/myelogram was completed: [facility] [address] [place] [address] MRI/CT/myelogram viewable in Epic: No If not, please provide [phone] to fax in imaging reports for review. [...] Additional Comments Hydrocodone documented in this encounter [facility] 05-06-2023 Note HNO ID: [id number] Author: Mauricio Kelley Service: ? Author Type: ? Type: Progress Notes Filed: 05/14/2023 4:17 PM Note Text: Patient name: Kim Nichols Are you being referred by a Center for [facility] Provider or Pain Management Provider at [facility]? No If answer is YES [...] facility where the MRI/CT/myelogram was completed: [facility] [address] [place] [address] MRI/CT/myelogram viewable in Epic: No If not, please provide [phone] to fax in imaging reports for review. [...] the surgery was completed: Additional Comments Hydrocodone [facility] Evaluation + Plan note No data available for this section [facility] Evaluation note No assessment inform ation available [facility] Work Phone: Evaluation note Diagnosis Radiculopathy, lumbar region- Primary Thoracic or lumbosacral neuritis or radiculitis, unspecified Lumbar disc herniation Displacement of lumbar intervertebral disc without myelopathy [facility] Diagnosis Lumbar radiculopathy- Primary Thoracic or lumbosacral neuritis or radiculitis, unspecified Displacement of lumbar intervertebral disc without myelopathy [facility] Diagnosis Meralgia paresthetica of left side- Primary Meralgia paresthetica Chronic midline low back pain without sciatica [facility] Diagnosis Post-op pain- Primary Other acute postoperative pain documented in this encounter [facility]* Diagnosis S/P left knee arthroscopy- Primary documented in this encounter [facility] note* Diagnosis S/P left knee arthroscopy- Primary documented in this encounter [facility] Healthcare[facility]* Diagnosis Preop examination- Primary Unspecified pre-operative examination Internal derangement of left knee documented in this encounter [facility]* Diagnosis Internal derangement of left knee- Primary documented in this encounter [facility]* Diagnosis Internal derangement of left [...] to their favorable impact on blood pressure andcholesterol.[facility] 250 DO Work Phone: History of Present [...] to call if they arise or occur. [facility] 250 DO Work Phone: History of Present [...] to call if they arise or occur. [facility] Work Phone: Hospital Discharge instructions No data available for this section [facility] [place] Progress note No data available for this section [facility] [place] Reason for referral (narrative)* Diagnostic Procedure Only (Routine) - Pending Review Specialty Diagnoses / Procedures Referred By Erlinda mao Referred To Contact XR IMAGING Diagnoses Meralgia paresthetica of left side Procedures XR LUMBAR MOTION 4V AP/LAT/ FLEX/EXT RADEX SPINE LUMBOSACRAL MINIMUM 4 VIEWS Juan R Ling MD [address] [place] [address] [place] [address] Referral ID Status Reason Start Date Expiration Date Visits Requested Visits Authorized [id number] Pending Review Auto-Generat ed Referral 2023 09/02/2024 1 1 [facility] for referral (narrative)* Consultation (Routine) - Pending Review Specialty Diagnoses / Procedures Referred By Erlinda mao Referred To Contact Physical Therapy Diagnoses Internal derangement of left knee Procedures [place] OFFICE/OUTPATIENT NEW HIGH MDM 60 MINUTES Car Cuellar PA [address] [place] [address] [facility] [address] [place] [address] Referral ID Status Reason Start Date Expiration Date Visits Requested Visits Authorized [id number] Pending Review Consult and Treat 07/01/2024 12/28/2024 1 1 [facility] Healthcare Summary Purpose Family History No Family History [...] Unknown sister Diabetes mellitus Unknown Advance Directives No Advanced Directives Records Found [...] pital DATE CREATED AUTHOR AUTHOR'S ORGANIZ ATION 05/14/2023 [facility] DATE CREATED AUTHOR AUTHOR'S ORGANIZ ATION 05/14/2023 [facility] DATE CREATED AUTHOR AUTHOR'S ORGANIZ ATION 2023 [facility] DATE CREATED AUTHOR AUTHOR'S ORGANIZ ATION 08/05/2023 [facility] DATE CREATED AUTHOR AUTHOR'S ORGANIZ ATION 08/31/2024 [facility] EPIC DATE CREATED AUTHOR AUTHOR'S ORGANIZ ATION 09/01/2024 [facility] DATE CREATED AUTHOR AUTHOR'S ORGANIZ ATION 09/10/2024 [facility] DATE CREATED AUTHOR AUTHOR'S ORGANIZ ATION 09/16/2024 [facility] DATE CREATED AUTHOR AUTHOR'S ORGANIZ ATION 12/17/2024 [facility] Care Teams (unrecognized sec tion and content) [...] End: August 25, 2024 Rell Adamson MD [facility] Attending Provider Active Start: August 25, 2024 End: August 25, 2024 Team Status: Inactive Member Role Status Dates Avi Yepez MD Primary Care Provider Active Bijan Betts Jr, DO Attending Provider Active [employer] Relationship Specialty Start Date End Date Avi Yepez MD [address] [place] [address] Referring Family Medicine 04/24/23 [employer] Relationship Specialty Start Date End Date Avi Yepez MD [address] [place] [address] Referring Family Medicine 04/24/23 [employer] Relationship Specialty Start Date End Date Avi Yepez MD [address] [facility] [address] Referring Family Medicine 04/24/23 [employer] Relationship Specialty Start Date End Date Avi Yepez MD [address] [facility] [place] [address] PCP - General Family Medicine 06/25/23 Avi Yepez MD [address] [place] [address] Referring Family Medicine 04/24/23 [employer] Relationship Specialty Start Date End Date Avi Yepez MD [address] [facility] [place] [address] PCP - General Family Medicine 06/25/23 Avi Yepez MD [address] [place] [address], [place] [address] Referring Family Medicine 04/24/23 [employer] Relationship Specialty Start Date End Date Avi Yepez MD [address] [facility] [place] [address] PCP - General Family Medicine 06/25/23 Avi Yepez MD [address] [place] [facility] [place] [address] Referring Family Medicine 04/24/23 [employer] Relationship Specialty Start Date End Date Avi Yepez MD [address] [facility] [place] [address] PCP - General 05/05/24 [employer] Relationship Specialty Start Date End Date Avi Yepez MD [address] [facility] [place] [address] PCP - General 05/05/24 [employer] Relationship Specialty Start Date End Date Avi Yepez MD [address] [facility] [place] [address] PCP - General 05/05/24 [employer] Relationship Specialty Start Date End Date Avi Yepez MD [address] [facility] [place] [address] PCP - General 05/05/24 [employer] Relationship Specialty Start Date End Date Avi Yepez MD [address] [facility] [place] [address] PCP - General 05/05/24 [employer] Relationship Specialty Start Date End Date Avi Yepez MD [address] [facility] [place] [address] PCP - General 05/05/24 [employer] Relationship Specialty Start Date End Date Avi Yepez MD [address] [facility] [place] [address] PCP - General 05/05/24 [employer] Relationship Specialty Start Date End Date Avi Yepez MD [address] [facility] [place] [address] PCP - General 05/05/24 [employer] Relationship Specialty Start Date End Date Avi Yepez MD [address] [facility] [place] [address] PCP - General 05/05/24 Goals (unrecognized section [...] or prosecute any alcohol or drug abuse patient.[facility] the event this information is protected by the Federal Confidentiality of Alcohol and Drug Abuse Patient Records regulations: The Federal rules restrict any use of the information to criminally investigate or prosecute any alcohol or drug abuse patient.[facility] the event this information is protected by the Federal Confidentiality of Alcohol and Drug Abuse Patient Records regulations: The Federal rules restrict any use of the information to criminally investigate or prosecute any alcohol or drug abuse patient.[facility] the event this information is protected by the Federal Confidentiality of Alcohol and Drug Abuse Patient Records regulations: The Federal rules restrict any use of the information to criminally investigate or prosecute any alcohol or drug abuse patient.[facility] the event this information is protected by the Federal Confidentiality of Alcohol and Drug Abuse Patient Records regulations: The Federal rules restrict any use of the information to criminally investigate or prosecute any alcohol or drug abuse patient.[facility] the event this information is protected by the Federal Confidentiality of Alcohol and Drug Abuse Patient Records regulations: The Federal rules restrict any use of the information to criminally investigate or prosecute any alcohol or drug abuse patient.[facility] Reason for Visit (unrecogniz ed section and content) Reason Comments New Patient Reason Comments Preparations For Procedures Pre-injectio n instructions Reason Comments Low Back Pain New Patient Evaluation Reason Comments Pain Post-op Reason Comments Pain Reason Comments Pain Specialty Diagnoses / Procedures Referred By Contac t Referred To Contact Physical Therapy Diagnoses Internal derangement of left knee Procedures [place] OFFICE/OUTPATIENT NEW HIGH MDM 60 MINUTES Car Cuellar, ANKITA [address] [address] Maria E Peck, PT Referral ID Status Reason Start Date Expiration Date Visits Requested Visits Authorized [id number] Authorized Consult and Treat 07/01/2024 12/28/2024 60 [...] BE BASED ON THE PRIMARY CLINICAL RECORDS. [email or web address] [facility]. provides no warranty or guarantee of the accuracy or completeness of information in this document.
[2025-01-25 03:58] VITALS: BP 145/88; PULSE 65; TEMP 36.5; O2SAT 95; BMI 33.2
--- NOTE | 2025-01-25 04:26 | ED_ITS ---
HPI - Ear Problem General Chief complaint: Ear Stated complaint: RINGING IN R EAR Time Seen by Provider: 01/25/25 04:00 Source: patient Mode of arrival: walk-in History of Present Illness HPI Narrative: This 64-year-old male who has left-sided hearing loss which he states he thinks is due to excessive use of Excedrin and [place] in the past presents for evaluation of ringing in the right ear. The patient states he woke up around 3 in the morning and had ringing in his right ear. He used a wet Q-tip in his ear and pulled out a large piece of wax. He is concerned because the wax was brown and he thinks there may be blood in it. The wax looks like normal earwax to me. Upon arrival to the emergency department he states that the ringing in his ear has started to improve and has resolved at some point. The patient has severe anxiety about awakening with tinnitus because several years ago he awakened with ringing in the left ear and ultimately lost the hearing in the left ear. He was seen by several ENTs and an attempt was made to preserve the hearing in the left ear but ultimately he became deaf in the left ear. He denies any headache. He has no dizziness. He has no sore throat. He has no ear pain. He has had some mild nasal congestion. There is been no drainage from his ears. He does not have any chest pain or shortness of breath. He did recently have a bout of atrial fibrillation which he attributes to hypokalemia. Related Data Home Medications ?Medication ?Instructions ?Recorded ?Confirmed aspirin 81 mg capsule 81 mg PO DAILY 05/07/24 01/25/25 chlorthalidone 25 mg tablet 25 mg PO QAM 05/07/24 01/25/25 gabapentin 300 mg capsule 300 mg PO BID 05/07/24 01/25/25 rosuvastatin 20 mg tablet 20 mg PO .QHS 05/07/24 01/25/25 hydrocodone 5 mg-acetaminophen 325 1 tab PO Q6H PRN pain 08/17/24 01/25/25 mg tablet pantoprazole 40 mg tablet,delayed 40 mg PO DAILY 12/13/24 01/25/25 release Previous Rx's ?Medication ?Instructions ?Recorded apixaban 5 mg tablet (Eliquis) 5 mg PO BID #60 tabs 05/08/24 metoprolol tartrate 25 mg tablet 25 mg PO BID #60 tabs 05/08/24 potassium chloride 20 mEq 20 meq PO BID #60 tabs 05/08/24 tablet,extended release Allergies Allergy/AdvReac Type Severity Reaction Status Date / Time amoxicillin Allergy Intermediate Rash Verified 01/25/25 04:04 thiopental (From Pentothal) Allergy delayed Verified 01/25/25 04:04 emergence Review of Systems ROS Status of ROS 10 or more systems reviewed and unremark able except as noted in history and below [facility] Medical History Migraine ?G43.909 - Migraine, unspecified, not intractable, without status migrainosus (ICD-10) Colon polyp ?K63.5 - Polyp of colon (ICD-10) Sleep apnea ?G47.30 - Sleep apnea, unspecified (ICD-10) Atrial fibrillation ?I48.91 - Unspecified atrial fibrillation (ICD-10) Erectile dysfunction ?N52.9 - Male erectile dysfunction, unspecified (ICD-10) Hypokalemia ?E87.6 - Hypokalemia (ICD-10) New onset a-fib ?I48.91 - Unspecified atrial fibrillation (ICD-10) H/O multiple concussions ?Z87.820 - Personal history of traumatic brain injury (ICD-10) Arthritis ?M19.90 - Unspecified osteoarthritis, unspecified site (ICD-10) Bulging lumbar disc ?M51.36 - Other intervertebral disc degeneration, lumbar region (ICD-10) Chronic GERD ?K21.9 - Gastro-esophageal reflux disease without esophagitis (ICD-10) Hyperlipidemia ?E78.5 - Hyperlipidemia, unspecified (ICD-10) Hypertension ?I10 - Essential (primary) hypertension (ICD-10) Surgical History History of arthroscopy of knee (07/2024) ?Z98.890 - Other specified postprocedural states (ICD-10) H/O nasal septoplasty ?Z98.890 - Other specified postprocedural states (ICD-10) H/O left heart catheterization by ventricular puncture ?Z98.890 - Other specified postprocedural states (ICD-10) Hx of cholecystectomy ?Z90.49 - Acquired absence of other specified parts of digestive tract (ICD- 10) Family History Sister Family history of myocardial infarction Family history of diabetes mellitus Father Family history of cancer Family history of myocardial infarction Family history of hypertension Family history of diabetes mellitus Mother Brain aneurysm Grandmother Family history of stroke Social History Within the past year, how often did you have a drink containing alcohol: monthly or less Within the past year, how many standard drinks containing alcohol did you have on a typical day: 1 or 2 Within the past year, how often did you have six or more drinks on one occasion: never Total score: 0 Score interpretation: A score less than 4 is consistent with normal alcohol consumption. Smoking status: Never smoker Non-prescribed substance use: cannabis (any form) Previous occupational history: Retired Highest level of school completed/degree received: Bachelor's degree Are you now , , , , never or living with a partner: In a typical week, how many times do you talk on the telephone with family, friends, or neighbors: twice per week How often do you get together with friends or relatives: twice per week How often do you attend pentecostalism or gnosticist services: 4 or more times per year Do you belong to any clubs or organizations such as pentecostalism groups unions, fraternal or athletic groups, or school groups: no Total score: 3 Score interpretation: A score of greater than or equal to 2 indicates the lowest level of social isolation. Little interest or pleasure in doing things: not at all Feeling down, depressed, or hopeless: several days Feel stressed/tense/nervous/anxious/difficulty sleeping: not at all Do you think of yourself as: straight/heterosexual Gender Identity: male Exam Narrative Exam Narrative: Vital signs and Nursing Notes reviewed: Patient is afebrile with a normal pulse, blood pressure is mildly elevated 145/88, he is not hypoxic with pulse ox of 95% on room air General: Awake, alert, oriented, no acute distress, lying comfortably on the stretcher HEENT: Normocephalic atraumatic, mucous membranes are moist and pink, eyes are clear, normal conjunctiva, vision is grossly intact, posterior pharynx is normal in appearance. Tympanic membranes are normal bilaterally. There is no redness, effusion, tympanic membrane bulging or perforation noted. He was able to hear the different pitches on the tuning fork without difficulty. Neck: Supple, no meningeal signs, no anterior or posterior cervical lymphadenopathy Chest: Lungs are clear to auscultation with good air entry, there is no wheezing rhonchi or rales appreciated no accessory muscle use, patient is speaking in complete sentences-no chest wall tenderness to palpation CVS: Regular rate and rhythm S1-S2, no murmurs rubs or gallops, pulses are brisk and equal bilaterally Skin: Normal in appearance without rash,pallor, petechiae or purpura Neuro: No focal deficits Constitutional Vital Signs, click to edit/add: Last Vital Signs Temp 97.7 F 01/25/25 03:58 Pulse 65 01/25/25 03:58 Resp 16 01/25/25 03:58 BP 145/88 H 01/25/25 03:58 Pulse Ox 95 01/25/25 03:58 O2 Del Method Room Air 01/25/25 03:58 Course Vital Signs Vital signs: Vital Signs Temperature 97.7 F 01/25/25 03:58 Pulse Rate 65 01/25/25 03:58 Respiratory Rate 16 01/25/25 03:58 Blood Pressure 145/88 H 01/25/25 03:58 Pulse Oximetry 95 01/25/25 03:58 Oxygen Delivery Method Room Air 01/25/25 03:58 Temperature 97.7 F 01/25/25 03:58 Pulse Rate 65 01/25/25 03:58 Respiratory Rate 16 01/25/25 03:58 Blood Pressure 145/88 H 01/25/25 03:58 Pulse Oximetry 95 01/25/25 03:58 Oxygen Delivery Method Room Air 01/25/25 03:58 Medical Decision Making MDM Narrative Medical decision making narrative: This 64-year-old male with left-sided hearing loss which he attributes to excessive aspirin and [place] ingestion in the past presents for evaluation of awakening with ringing in the right ear. He states that this makes him very nervous since he lost the hearing in the left ear. He did pull a large piece of brown wax out of the right ear at home and his symptoms appeared to improve after that. His physical exam is benign. I do not appreciate any redness swelling effusion or other notable abnormality in the right ear. He was able to hear the tuning fork without difficulty and even prior to seeing me he states that the ringing in the right ear had improved and during my exam it had resolved. He did request something for treatment of a potential ear infection and although I do not appreciate any ear infection he was provided with a prescription for Cipro HC otic suspension. He was encouraged to follow-up with ENT as needed for ongoing or worsening symptoms or any concerns. Discharge Plan Discharge Chief Complaint: Ear Clinical Impression: Tinnitus of right ear Patient Disposition: Home, Self-Care Time of Disposition Decision: 04:24 Condition: Good Prescriptions / Home Meds: No Action hydrocodone-acetaminophen 5-325 mg tablet 1 tab PO Q6H PRN (Reason: pain) pantoprazole 40 mg tablet,delayed release (DR/EC) 40 mg PO DAILY chlorthalidone 25 mg tablet 25 mg PO QAM gabapentin 300 mg capsule 300 mg PO BID Rx Instructions: 3 tablets in AM and 2 tablets in pm rosuvastatin 20 mg tablet 20 mg PO .QHS aspirin 81 mg capsule 81 mg PO DAILY potassium chloride 20 mEq tablet extended release 20 meq PO BID Qty: 60 11RF metoprolol tartrate 25 mg Tablet 25 mg PO BID Qty: 60 11RF Eliquis 5 mg Tablet 5 mg PO BID Qty: 60 11RF Print Language: Citizen Of [place] Instructions: Tinnitus (ED) Referrals: Jason Cervantes MD [Primary Care Provider] - 1 week Discharge Date/Time: 01/25/25 04:35
== END 2025-01-25 04:35 | disposition home or self-care (01) ==
PROVIDERS: Emergency Provider Emergency Medicine; PCP Family Medicine
DX: H93.11 Tinnitus, right ear (principal); H91.92 Unspecified hearing loss, left ear; I48.91 Unspecified atrial fibrillation; Z90.49 Acquired absence of other specified parts of digestive tract
CPT/HCPCS: 99283

== ENCOUNTER 2025-04-21 07:47 | Outpatient (OUT) | payer OTHER, SELFPAY ==
--- OUTSIDE RECORDS SUMMARY | 2021-01-13 07:00 | XMS_ITS | Continuity of Care Document ---
Author Organization [facility] Address [address] [place] [address] Phone Care Team Providers Care Mobile Paint Specialist Name Role Phone Severiano Martin Unavailable Unavailable Procedures Procedure Date Pfizer COVID Vaccine Admin Dose 2 COVID-19 Pfizer Pfizer COVID Vaccine Admin Dose 1 COVID-19 Pfizer Advance Directives Directive Yes / No Effective Date File Name No Information Encounters Encounter Description Practice Location Reason(s) For Visit Diagnoses Date Provider Providers Copied on Encounter [facility], [address] [place], [place], [id number], [place] tel:[phone] COVID ECHD No Information Radha Man. [address] [place], [place], [id number], [place]. tel:[phone] [facility], [address] [place] [address], [id number], tel:[phone] COVID ECHD No Information Radha Man. [address] [place], [place], [id number], [place]. tel:[phone] Family History Family Member Type Diagnosis Age At Onset No Information Immunizations Vaccine Date Status Comments Pfizer COVID administered Source: New Imm unization Record Pfizer COVID administered Source: New Imm unization Record Payers Payer name Insurance type Covered republican ID Authoriza tion(s) Aetna CI [id number] Aetna CI [id number] Aetna CI [id number] Social History Type Description Quantity Date Captured [...]
--- OUTSIDE RECORDS SUMMARY | 2024-12-07 05:00 | XMS_ITS ---
Author Organization [facility] in [place] Address [address] [place] [address] Care Team Providers Care Hearing Therapy Teacher Name Role Phone Billy Del Primary Care Provider Allergies Allergen (clinical drug ingredient) Drug/Non Drug Allergy documented on EMR Reaction Allergy Type Onset Date Status amoxicillin Amoxicillin hives Drug Allergy Act kriss Reason For Referral Diagnosis 1 Chronic midline low back pain without sciatica (M54.50) Referral Organization [facility] Medicine Referring Provider First Name Del Referring Provider Last Name Billy Referring Provider Speciality Family Med icine Referred Provider Pain Management, TB Referred Provider Specialty Pain Medicin e Referral Priority Routine REASON FOR VISIT Discuss meds- discuss pain management Medications Medication SIG (Take, Route, Frequency, Duration) Notes Start Date End Date Status HYDROcodone-Acetaminop hen 5-325 MG 1 tablet as needed - max sdose 2/day Orally every 6 hrs PRN 12/07/2024 Active HYDROcodone-Acetaminop hen 5-325 MG 1 tablet - M25.569 Orally every 12 hrs for 7 days M25.569 03/29/2024 Unknown Urea 40 % 1 application as needed to bottom of feet Externally Once a day for 30 days Dispense large trade size bottle/tube 10/07/2024 Active Terbinafine HCl 1 % 1 application Externally bid for 21 days 10/12/2024 Active Rosuvastatin Calcium 20 MG 1 tablet Orally Once a day for 7 days Active Protonix 40 MG 1 tablet Orally Once a day for 90 days 09/10/2024 Active Potassium Chloride ER 20 MEQ 1 tablet with food Orally twice daily for 90 days 06/25/2024 Active Metoprolol Tartrate 25 MG 1 tablet with food Orally Twice a day for 90 days 06/25/2024 Active Eliquis 5 MG 1 tablet Orally twice daily for 90 days 06/25/2024 Active Chlorthalidone 25 MG TAKE 1 TABLET BY MOUTH EVERY MORNING WITH FOOD FOR 90 DAYS for 90 Active Aspirin Adult Low Dose 81 MG 1 tablet Orally Once a day Active Luzu 1 % 1 application to bottom and sides of both feet Externally Once a day for 14 days Patient failed OTC lotrimin and Rx lotrisone in past 10/07/2024 Active Gabapentin 300 MG TAKE 3 CAPSULES EVERY MORNING AND TAKE 2 CAPSULESAT BEDTIME Orally as directed for 90 days Active Triamcinolone Acetonide 0.1 % 1 application Externally bid 12/07/2024 Active Social History Tobacco Use: Social History Observation Description Date Details (start date - stop date) Never Smoker NA - NA Tobacco Use/Smoking Question Answer Notes Patient is a nonsmoker AUDIT-C (Standard) Question Answer Notes Did you have a drink contain ing alcohol in the past year? Yes How often did you have six o r more drinks on one occasion in the past year? Never (0 point) How many drinks did you have on a typical day when you were drinking in the past year? 1 or 2 drinks (0 point) How often did you have a dri nk containing alcohol in the past year? 2 to 3 times a week (3 points) Points 3 Interpretation Negative Vital Signs Blood pressure systolic 110 mm Hg 12/07/19 25 Blood pressure diastolic 70 mm Hg 025 Height 70 in 12/07/2024 Weight 258.8 lbs 12/07/2024 BMI 37.13 kg/m2 12/07/2024 Encounters Encounter Location Date Provider Diagnosis [facility] [address] [place] [address] 12/07/2024 Del Cervantes Benign essential hypertension I10 ; Chronic midline low back pain without sciatica M54.50 and Atrial fibrillation I48.91 Assessments Encounter Date Diagnosis (ICD Code) Assessment Notes Treatment Notes Treatment Clinical Notes Section Notes 12/07/2024 Benign essential hypertension (ICD-10 - I10) 12/07/2024 Chronic midline low back pain without sciatica (ICD-10 - M54.50) 12/07/2024 Atrial fibrillation (ICD-10 - I48.91) Plan Of Treatment Medication Medication Name Sig Start Date Stop Date Notes HYDROcodone-Acetaminophen 5-325 MG 1 tablet as needed - max sdose 2/day Orally every 6 hrs 12/07/2024 PRN Diclofenac Sodium 75 MG 1 tablet as need ed Orally Twice a day 01/16/2024 Carafate 1 GM 1 tablet on an empty stomach Orally Twice a day 06/16/2024 Triamcinolone Acetonide 0.1 % 1 application Externally bid 12/07/2024 Referrals Referral Date Details 12/07/2024 12/07/2024, [facility] Pain Management Next Appt Details Provider Name:Del Cervantes, 10:30:00 AM, [address] [place], [address], Progress Notes * Harrison NICHOLSDOB:1959 (64 yo M)Acc No.[id number]:12/07/2024 Progress Note Patient: Suyapa MCLAUGHLINHarrison Provider: Tamara Cervantes ([facility])MD :1960 A ge:64 Y S ex:Male Date:12/07/2024 Address:[address] [place], [place] [id number] Check In:08:35 AM ESTCheck O ut:09:33 AM EST Subjective: * Chief Complaints: * D iscuss meds- discuss pain management * HPI: D epression Screening: PHQ-2 (2015 Edition) L ittle interest or pleasure in doing things??Several days F eeling down, depressed, or hopeless? N ot at all T otal Score 1 KNe is better - acting up at time discussed low back - recommending Pain management itchng on knee. * ROS: E ENT: hearing changes d enies. v isual changes d enies.?non-healing mouth sores d enies. s wollen glands or neck lumps d enies. h oarseness d enies. s ore throat d enies. d ifficulty swallowing d enies. n ose bleeds d enies. n randa congestion d enies. e ar ache d enies. e ar discharge?denies. r inging in ears d enies. l ight sensitivity d enies. e ye pain d enies. b lurring d enies. e ye irritation d enies. d ouble vision d enies.?vision loss d enies. G eneral/Constitutional: Sweats: D enies. F atigue d enies. S leep problems d enies. A norexia d enies. M alaise d enies. W eight loss d enies.?Fatigue or Weakness d enies. F ever or Chills d enies. C ardiovascular: Shortness of Breath w/lying flat d enies. L ightheadedness/dizziness d enies. C hest tightness/ heavy pressure d enies. S welling of legs, ankles, or feet d enies. W aking up with shortness of breath d enies. C hest pain denies. P alpitations d enies. W eight gain d enies. R espiratory: Chronic or frequent cough d enies. C oughing up blood?denies. D ifficulty breathing d enies. P roductive cough d enies. S noring?denies. S hortness of breath that awakens from sleep (PND) d enies. C hest pain d enies. S putum production d enies. W heezing d enies. M usculoskeletal: Joint pain d enies. J oint Fluid d enies. B ack pain d enies. K nee pain d enies. N karl pain d enies. J oint Stiffness d enies. M uscle cramps d enies. W eakness of muscles d enies. A rthritis d enies. M uscle aches d enies. P ain in shoulder(s) d enies. S wollen joints d enies. * Active Problem List K21.9 Gastro-esophageal re flux disease without esophagitis Modified On:11/13/2023W/U Status:confirmed Z90.49 History of cholecyst ectomy Modified On:03/21/2023W/U Status:confirmed G43.909 Migraine Modified On:03/21/2023 Status:confirmed I10 Benign essential hyp ertension Modified On:11/13/2023 Status:confirmed J01.90 Acute sinusitis Modified On:03/21/2023 Status:confirmed Z00.00 Well adult Modified On:11/13/2023 Status:confirmed N52.9 Impotence Modified On:03/21/2023 Status:confirmed M54.50 Chronic midline low back pain without sciatica Modified On:11/13/2023 Status:confirmed M48.061 Spinal stenosis, lum bar region without neurogenic claudication Modified On:01/16/2024 Status:confirmed M51.27 Other intervertebral disc displacement, lumbosacral region Modified On:04/02/2023 Status:confirmed M54.16 Lumbar radiculopathy Modified On:04/24/2023 Status:confirmed R09.89 Other specified symp toms and signs involving the circulatory and respiratory systems Modified On:05/14/2023 Status:confirmed M17.9 Knee osteoarthritis Modified On:03/05/2024 Status:confirmed M17.12 Unilateral primary o steoarthritis, left knee Modified On:03/09/2024 Status:confirmed 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, left Modified On:04/30/2024 Status:confirmed I48.91 Atrial fibrillation Modified On:05/12/2024U Status:confirmed R06.00 MILIAN (dyspnea on exer tion) Modified On:05/12/2024U Status:confirmed R07.9 Chest pain Modified On:05/12/2024U Status:confirmed Z68.41 BMI 40.0-44.9, adult Modified On:05/12/2024 Status:confirmed I48.91 New onset a-fib Modified On:06/14/2024 Status:confirmed * Medical History: * Surgical History: S eptal Plasty Laproscopic Gall Bladder Removal Right Knee Scope 07/29/24EGD with biopsy of gastric polyp and colonoscopy to cecum 08/25/2024 * Hospitalization/Major Diagno stic Procedure: s ee above * Family History: F ather: 88 yrs, cancer, diagnosed with Diabetes mellitus without mention of complication, type II or unspecified type, not stated as uncontrolled, Unspecified heart disease. M other: 42 yrs, Brain Aneurysm. S ister(s): alive, type II diabetes, acute myocardial infarction. S on(s): alive. D russel(s): alive, depression, anxiety. 3 sister(s) . 1 son(s) , 1 daughter(s) - healthy. . * Social History: T obacco Use: T obacco Use/Smoking P atient is a n onsmoker D rug/Alcohol: A AMIRAH-C (Standard) D id you have a drink containing alcohol in the past year? Y es H ow often did you have six or more drinks on one occasion in the past year? N ever (0 point) H ow many drinks did you have on a typical day when you were drinking in the past year? 1 or 2 drinks (0 point) H ow often did you have a drink containing alcohol in the past year? 2 to 3 times a week (3 points) P oints 3 I nterpretation N egative * Medications: T akingAspirin Adult Low Dose(Aspirin) 81 MG Tablet Delayed Release 1 tablet Orally Once a day Carafate(Sucralfate) 1 GM Tablet 1 tablet on an empty stomach Orally Twice a day Chlorthalidone 25 MG Tablet TAKE 1 TABLET BY MOUTH EVERY MORNING WITH FOOD FOR 90 DAYS Diclofenac Sodium 75 MG Tablet Delayed Release 1 tablet as needed Orally Twice a day Eliquis(Apixaban) 5 MG Tablet 1 tablet Orally twice daily Gabapentin 300 MG Capsule TAKE 3 CAPSULES EVERY MORNING AND TAKE 2 CAPSULESAT BEDTIME Orally as directed Luzu(Luliconazole) 1 % Cream 1 application to bottom and sides of both feet Externally Once a day , Notes to Pharmacist: Patient failed OTC lotrimin and Rx lotrisone in pastMetoprolol Tartrate 25 MG Tablet 1 tablet with food Orally Twice a day Potassium Chloride ER 20 MEQ Tablet Extended Release 1 tablet with food Orally twice daily Protonix(Pantoprazole Sodium) 40 MG Tablet Delayed Release 1 tablet Orally Once a day Rosuvastatin Calcium 20 MG Tablet 1 tablet Orally Once a day Terbinafine HCl 1 % Cream 1 application Externally bid Urea 40 % Cream 1 application as needed to bottom of feet Externally Once a day Dispense large trade size bottle/tubeTaking Aspirin Adult Low Dose(Aspirin) 81 MG Tablet Delayed Release 1 tablet Orally Once a day Taking Carafate(Sucralfate) 1 GM Tablet 1 tablet on an empty stomach Orally Twice a day Taking Chlorthalidone 25 MG Tablet TAKE 1 TABLET BY MOUTH EVERY MORNING WITH FOOD FOR 90 DAYS Taking Diclofenac Sodium 75 MG Tablet Delayed Release 1 tablet as needed Orally Twice a day Taking Eliquis(Apixaban) 5 MG Tablet 1 tablet Orally twice daily Taking Gabapentin 300 MG Capsule TAKE 3 CAPSULES EVERY MORNING AND TAKE 2 CAPSULESAT BEDTIME Orally as directed Taking Luzu(Luliconazole) 1 % Cream 1 application to bottom and sides of both feet Externally Once a day , Notes to Pharmacist: Patient failed OTC lotrimin and Rx lotrisone in pastTaking Metoprolol Tartrate 25 MG Tablet 1 tablet with food Orally Twice a day Taking Potassium Chloride ER 20 MEQ Tablet Extended Release 1 tablet with food Orally twice daily Taking Protonix(Pantoprazole Sodium) 40 MG Tablet Delayed Release 1 tablet Orally Once a day Taking Rosuvastatin Calcium 20 MG Tablet 1 tablet Orally Once a day Taking Terbinafine HCl 1 % Cream 1 application Externally bid Taking Urea 40 % Cream 1 application as needed to bottom of feet Externally Once a day Dispense large trade size bottle/tubeUnknownHYDROcodone-Acetaminophen 5-325 MG Tablet 1 tablet as needed - max sdose 2/day Orally every 6 hrs , Notes to Pharmacist: PRNHYDROcodone-Acetaminophen 5-325 MG Tablet 1 tablet - M25.569 Orally every 12 hrs , Notes to Pharmacist: M25.569Medication List reviewed and reconciled with the patientUnknown HYDROcodone-Acetaminophen 5-325 MG Tablet 1 tablet as needed - max sdose 2/day Orally every 6 hrs , Notes to Pharmacist: PRNUnknown HYDROcodone-Acetaminophen 5-325 MG Tablet 1 tablet - M25.569 Orally every 12 hrs , Notes to Pharmacist: M25.569Medication List reviewed and reconciled with the patient * Allergies: A moxicillin: hives - Allergyno[Allergies Verified] Objective: * Vitals: W t:258.8lbs, Ht: 70 in, BP:110/70mm Hg, BMI:37.13Index, Ht-cm: 177.8 cm, Wt-k.39 kg. * Examination: P hysical Exam: GENERAL: w ell developed, well nourished, in no acute distress. HEAD: n ormocephalic/atraumatic. EYES: p upils equal, round and reactive to light, conjunctivae and sclerae normal. EARS: n o deformity or lesion of external ear, canals and TM appear normal bilaterally, TM's intact, not inflamed with normal light reflex, hearing grossly normal to conversational speech. NOSE: n o deformity, discharge, inflammation, or lesions.? MOUTH: m ucous membranes moist, normal oropharynx and posterior pharynx without lesions or exudates, tongue normal, dentition normal. NECK: n karl supple, no masses or palpable cervical nodes, trachea midline, thyroid without nodules, masses, tenderness, or enlargement. CHEST: n o chest wall deformity, no chest wall tenderness.? LUNGS: n ormal respiratory effort and clear to auscultation, no wheezes, rales, or rhonchi, good air exchange. CARDIO: r egular rate and rhythm, normal S1 and S2, nor murmur, rub, or gallop. PULSES: n ormal capillary refill. ABDOMEN: s oft, non-distended, non-tender, no masses. MUSCULOSKELETAL: n o deformity or scoliosis noted, normal range of motion, joints normal, no erythema, edema, effusion, or ecchymosis. EXTREMITY: n o clubbing, cyanosis, edema, or deformity with normal ROM in both upper and lower bilateral extremities. NEUROLOGIC: g rossly normal. SKIN: n o rashes, ulcerations, or suspicious lesions. LYMPH NODES: n o cervical adenopathy, nodes normal. MENTAL STATUS: a lert and oriented x3, normal mood and affect. Assessment: * Assessment: 1. B enign essential hypertension - I10 (Primary) 2 . C hronic midline low back pain without sciatica - M54.50 3 . A trial fibrillation - I48.91 Plan: * Treatment: 2. C hronic midline low back pain without sciatica Referral To:[facility] Pain Management Pain Medicine Reason: * Procedure Codes: * Preventive Medicine: Screenings/Counseling: F ALL RISK SCREENING Fall Risk Assessment: O ne fall without injury in the past year B TN ACTION PLAN Above Normal BMI Follow-up D ietary management education, guidance, and counseling * * Sign off status: Completed Visit Status: C HK (Check Out) true * Provider: Tamara Cervantes ([facility])MD Date: 0 12/07/2024 Generated for Printi ng/Faxing/eTransmitting on: 0 04/21/2025 07:51 AM EDT History and Physical Notes * HPI (History of Present Illness) Category Sub-Category Detail Notes Category Not es Depression Screening PHQ-2 (2015 Edition) Little interest or pleasure in doing things?: Several days KNe is better - acting up at time discussed low back - recommending Pain management itchng on knee Feeling down, depressed, or hopeless?: N ot at all Total Score: 1 Examination Category Sub-Category Detail Notes Category Not es Physical Exam GENERAL: well developed, well nourished, in no acute distress HEAD: normocephalic/atraum atic EYES: pupils equal, round and reactive to light, conjunctivae and sclerae normal EARS: no deformity or lesi on of external ear, canals and TM appear normal bilaterally, TM's intact, not inflamed with normal light reflex, hearing grossly normal to conversational speech NOSE: no deformity, discha rge, inflammation, or lesions MOUTH: mucous membranes julien st, normal oropharynx and posterior pharynx without lesions or exudates, tongue normal, dentition normal NECK: neck supple, no mass es or palpable cervical nodes, trachea midline, thyroid without nodules, masses, tenderness, or enlargement CHEST: no chest wall deform ity, no chest wall tenderness LUNGS: normal respiratory e ffort and clear to auscultation, no wheezes, rales, or rhonchi, good air exchange CARDIO: regular rate and rhy thm, normal S1 and S2, nor murmur, rub, or gallop PULSES: normal capillary ref ill ABDOMEN: soft, non-distended, non-tender, no masses RECTAL: MUSCULOSKELETAL: no deformity or scol iosis noted, normal range of motion, joints normal, no erythema, edema, effusion, or ecchymosis EXTREMITY: no clubbing, cyanosi s, edema, or deformity with normal ROM in both upper and lower bilateral extremities NEUROLOGIC: grossly normal SKIN: no rashes, ulceratio ns, or suspicious lesions LYMPH NODES: no cervical adenopat hy, nodes normal MENTAL STATUS: alert and oriented x 3, normal mood and affect Consultation Request Notes Referral Date Referring Provider Referred Provider Not es 12/07/2024 Del Cervantes Pain Management, [facility]
--- OUTSIDE RECORDS SUMMARY | 2025-02-17 05:16 | XMS_ITS ---
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 Name Role Phone Del Cervantes Primary Care Provider [phone] REASON FOR VISIT pain Medications Medication SIG (Take, Route, Frequency, Duration) Notes Start Date End Date Status HYDROcodone-Acetaminophen 5-325 MG 1 tablet as needed - max sdose 2/day Orally every 6 hrs PRN 02/17/2025 Active Encounters Encounter Location Date Provider Diagnosis [facility] [address] [place] [address] 02/17/2025 Del Cervantes Benign essential hypertension I10 [...] Provider Name:Del Cervantes, 10:30:00 AM, [address] [place], [address], Progress Notes * Harrison NICHOLSDOB:1959 (64 yo M)Acc No.[id number]:02/17/2025 Patient: Harrison ROLAND :1960 A ge:64 Y S ex:Male Address:[address] [place] [address], [facility] [place] [address] * Refills Refill HYDROcodone-Acetaminophen Tablet, 5-325 MG, Orally, 20, 1 tablet as needed - max sdose 2/day, every 6 hrs, Refills=0 * true * Date: Generated for Artur pradhan/Joshua/William on: 0 04/21/2025 07:51 AM EDT
--- OUTSIDE RECORDS SUMMARY | 2025-04-11 06:45 | XMS_ITS ---
Author Organization The [facility] in [place] Address [address] [place] [address] Care Team Providers Care [employer] Board Certified Orthotist Name Role Phone Del Cervantes Primary Care Provider Allergies Allergen (clinical drug ingredient) Drug/Non Drug Allergy documented on EMR Reaction Allergy Type Onset Date Status amoxicillin Amoxicillin hives Drug Allergy Act kriss REASON FOR VISIT Presents to office alone [...] Status Risk Notes Problem Osteoarthritis of knee (246009255) Knee osteoarthritis (M17.10) Active confirmed Vital Signs Blood pressure systolic 116 mm Hg 04/11/20 25 Blood pressure diastolic 68 mm Hg 025 Height 70 in 04/11/2025 Weight 264.8 lbs 04/11/2025 BMI 37.99 kg/m2 04/11/2025 Encounters Encounter Location Date Provider Diagnosis [facility] [address] [place] [address] 04/11/2025 Del Hoy Knee osteoarthritis M17.10 ; [...] INSULIN, TOTAL 04/11/2025 LIPID PANEL (CHOL/TRIG/HDL/LDL) 04/11/20 25 THYROID PANEL (T4/TSH/FREE T3) 5 XR thoracic spine 3V 04/11/2025 PSA, SCREENING 04/11/2025 CMP (COMP MET ELY) w/eGFR CKD-EPI 2024 CBC WITH DIFF 04/11/2025 Next Appt Details Provider Name:Del Cervantes, 10:30:00 AM, [address] [place], [address], Progress Notes * Harrison NICHOLSDOB:1959 (64 yo M)Acc No.[id number]:04/11/2025 Progress Note Patient: Suyapa MCLAUGHLINHarrison Provider: Tamara Cervantes ([facility])MD :1960 A ge:64 Y S ex:Male Date:04/11/2025 Address:[address] [place], [place] [address] Check In:10:24 AM ESTCheck O ut:11:22 AM [...] ectomy Modified On:03/21/2023W/U Status:confirmed G43.909 Migraine Modified On:03/21/2023/U Status:confirmed I10 Benign essential hyp ertension Modified [...] Modified On:05/12/2024 Status:confirmed R07.9 Chest pain Modified On:05/12/2024U Status:confirmed Z68.41 BMI 40.0-44.9, adult Modified On:05/12/2024U Status:confirmed I48.91 New onset a-fib Modified On:06/14/2024 [...] osteoarthritis - M17.10 (Primary) 2 . W [facility] adult - Z00.00 ? 3 . T horacic back pain - M54.6 Plan: * Treatment: 2. W [facility] adult L AB: HEMOGLOBIN A1C (GLYCO) L AB: INSULIN, TOTAL L AB: LIPID PANEL (CHOL/TRIG/HDL/LDL) L AB: THYROID PANEL (T4/TSH/FREE T3) L AB: PSA, SCREENING L AB: CMP (COMP MET ELY) w/eGFR CKD-EPI L AB: CBC WITH DIFF 3. T horacic back pain I maging: XR thoracic spine 3V * Procedure Codes: * Preventive Medicine: Screenings/Counseling: B AR ACTION PLAN Above Normal BMI Follow-up D ietary management education, guidance, and counseling See treatment section of progress note for complete details of management plan. * * Sign off status: Completed Visit Status: C HK (Check Out) true * Provider: Tamara Cervantes ([facility])MD Date: 0 04/11/2025 Generated for Printi ng/Faxing/eTransmitting on: 0 04/21/2025 07:51 AM EDT History and Physical Notes * HPI (History of Present Illness) Category Sub-Category Detail Notes Category Not es General See sundar fung htei month - wants a new [...]
--- OUTSIDE RECORDS SUMMARY | 2025-04-20 08:30 | XMS_ITS | Encounter Summary ---
Author Organization [facility] Address [address] [place] [address] Care Team Providers Care Ecommerce Project Manager Name Role Phone Jason Cervantes MD Primary Care Provider [phone] Reason for Visit * Reason Comments Pain Encounter Details Date Type Department Care Team (Late st Contact Info) Description 04/20/2025 8:30 AM EDT Office Visit [facility] [address] [place] [id number] Jr. Landon Thomas, DO [address] [place] [address] Acute pain of left knee (Primary Dx); Arthritis of left knee Social History Tobacco Use Types Packs/Day Years Used Date Smoking Tobacco: Never Smokeless Tobacco: Never Alcohol Use Standard Drinks/Week Comments Yes 0 (1 standard drink = 0.6 oz pur e alcohol) 1/WK Sex and Gender Information Value Date Recorded Sex Assigned at Male 05/05/2024 8:36 AM EDT Legal Sex Male 7:18 PM EDT Gender Identity Male 05/05/2024 8:36 AM EDT Sexual Orientation Straight 05/05/2024 8: 36 AM EDT documented as of this encounter Progress Notes * Jr. Landon Thomas DO - 04/20/2025 8:30 AM EDT Images from the original note were not included. Orthopedic Office note: NAME: Harrison Nichols : 1960 (EST PT) (LAST APPT W/ [facility]) - S/P (L) KNEE SCOPE 07/29/24 (~9 MONTHS) ; S/P (L) KNEE CORTISONE INJ 02/18/25 (8 WKS, 5 DAYS) - HERE TO DISCUSS OPTIONS PT WOULD LIKE TO SCHEDULE SX AROUND 1ST WK OF OCT IF SURGICAL XRAY (L) KNEE 05/10/24 EPIC NO MRI HX CORTISONE INJ ~1YR AGO NO VISCO NO MDP/PREDNISONE PT (POST-OP) S/P CORTISONE INJ - RELIEF ~2 WKS. ADMITS INTERMITTENT ACHING MEDIAL DISCOMFORT WITH STANDING / USE. PT UMPIRES AND IS ACTIVE ON FEET. CAN RADIATE TO POSTERIOR THIGH. ADMITS INSTABILITY - DENIES GIVING OUT. FULL ROM. ADMITS SWELLING AFTER USE. SOME STIFFNESS AFTER PROLONGED SITTING / DRIVING. OCCASIONALLY WAKING HS WITH CERTAIN POSITIONS. ADMITS ICING / ELEVATING. NORCO PRN - WITH RELIEF. VOLTAREN PRN. LIDOCAINE PATCH - NO RELIEF. EMILIA WRAP WHEN UMPIRING. Physical Exam Knee Musculoskeletal Exam Gait Limp: left Limp comment: with initiation of gait. Inspection Leg length disparity: no discrepancy Left Erythema: none Effusion: mild Edema: mild Ecchymosis: none Deformity: none Alignment: varus Previous incision: arthroscopic portals Incision: well-healed Palpation Left Left knee palpation is unremarkable. Increased warmth: none Masses: none Crepitus: patellofemoral and medial Tenderness: present Medial joint line: moderate Patella: mild Range of Motion Left Left knee range of motion is normal and full. Active extension: 5 Passive extension: 0 Active flexion: 110 Passive flexion: 115 Strength Left Left knee strength is normal. Extension: 5/5. Extension is affected by pain. Flexion: 5/5. Flexion is affected by pain. Instability Left Anterior drawer: normal Instability additional comments: Slight LCL laxity. Firm end point Neurovascular Left Left knee neurovascular exam is normal. Pulses - PT: normal Posterior tibial: 2+ Capillary refill: warm and well-perfused Special Signs Left Left knee special signs are normal. Straight leg raise: normal Patellar compression: mild General Constitutional: appears stated age Labored breathing: no Psychiatric: normal mood and affect Neurological: alert Skin: intact Lymphadenopathy: none No orders of the defined types were placed in this encounter. Procedures Results ICD-10-CM 1. Acute pain of left knee M25.562 2. Arthritis of left knee M17.12 Assessment & Plan We have discussed his restrictions, home exercise program, x-rays, and exam today at length. We recommended total knee arthroplasty O to his left knee in July. Patient fully understands risks and benefits of said surgical program. We have discussed both surgical and nonsurgical treatment options with the patient and the risks and benefits associated with both. The patient is requesting surgical intervention because the patient's symptoms were affecting the patient's activities of daily living and ability to sleep. The patient's symptoms were unresponsive to outpatient treatment options. After lengthy discussions involving but not limited to both surgical and nonsurgical treatment options the patient has requested surgical intervention and we will see them back on the day of surgery. The patient understands the risks ofsaid treatment. We have discussed both surgical and nonsurgical [...] living and we have recommended surgical intervention. We recommended surgery in the form of a total knee arthroplasty. Factors including the patient's age and longevity of pro sthesis, usual postoperative course, and possible need for revision in the future, and leg length inequality postoperatively were discussed at length. We have discussed with the patient that this is a major orthopedic procedure. We discussed that the patient may require more than the average 30 MEDlimited and may require greater than 7 days narcotic treatment postoperatively. Therefore, patient's narcotic usage will be tailored on an individual basis. If this patient at the time of surgery hasany of the following: Morbidities including but not limited to history of falling, cognitive impairment, BMI greater than 30, end-stage renal disease, respiratory failure, heart failure, kidney failure, liver failure, diabetes, cardiac event in the last year, sleep apnea, disorder, excessive tobacco use, if at the time of surgery the patient is greater than 80 years old, or the patient requires discharge to a penitentiary facility, the patient may require to have additional inpatient hospital stay days following the surgery. Physical therapy is contraindicated in this patient''s case because of the [id number] articulation of the patient's knee.. Questions answered in laymen terms at the bedside. The diagnosis, home exercise plan and any ongoing restrictions/ recommendations reviewed. If unable to be reached in office, I recommend evaluation at nearest Emergency Room if any symptoms worsened or new symptoms develop for requiring urgent evaluation. Visit was preformed using [employer] commercial speech recognition. documented in this encounter Plan of Treatment Upcoming Encounters Date Type Department Care Team (Late st Contact Info) Description 06/17/2025 9:00 AM EDT [facility] [address] [place] [address] Justen Cuellar PA [address] [facility] [address] [place] [address] 07/14/2025 9:00 AM EDT Office Visit [facility] [address] [place] [id number] Justen Cuellar PA [address] [facility] [address] [place] [address] documented as of this encounter Visit Diagnoses Diagnosis Acute pain of left knee- Primary Arthritis of left knee documented in this encounter Care Teams Ecommerce Project Manager Relationship Specialty Start Date End Date Jason Cervantes MD PCP - General 05/05/24 documented as of this encounter
--- OUTSIDE RECORDS SUMMARY | 2025-04-21 07:51 | XMS_ITS | Patient Health Record ---
Author Organization The [facility] in [place] Address [address] [place] [address] Care Team Providers Care Radio Division Officer Name Role Phone Del Cervantes Primary Care Provider Elis Salcedo [phone] Allergies Allergen (clinical drug ingredient) Drug/Non Drug Allergy documented on EMR Reaction Allergy Type Onset Date Status amoxicillin Amoxicillin hives Drug Allergy Act kriss Results Component Value Reference Range Notes BNP Reviewed date:05/09/2024 11:55:27 AM Interpretation: Performing Lab: Notes/Report: [facility] , NT Pro B Type Natriuretic Pept 92.0 <=900.0 pg/mL Performing Lab: see note ML - [facility] LB CBC AUTO DIFF Reviewed date:05/09/2024 11:55:27 AM Interpretation: Performing Lab: Notes/Report: [facility] , White Blood Count 6.0 4.0-11.0 10 3/uL Red Blood Count 6.03 4.70-6.10 10 6/uL Hemoglobin 17.4 14.0-18.0 g/dL Hematocrit 50.6 42.0-54.0 % Mean Corpuscular Volume 83.9 80.0-94.0 fL Mean Corpuscular Hemoglobin 28.9 25.9-34.0 pg Mean Corpuscular HGB Conc 34.4 29.9-35.2 g/dL Red Cell Distribution Width 13.4 11.0-15.0 % Platelet Count 191 150-450 10 3/uL Mean Platelet Volume 10.8 9.5-13.5 fL Neutrophils Percent Auto 58.7 43.0-75.0 % Lymphocytes Percent Auto 24.8 20.5-60.0 % Monocytes Percent Auto 11.8 1.7-12.0 % Eosinophils Percent Auto 3.8 0.9-7.0 % Basophils Percent Auto 0.7 0.2-2.0 % Immature Granulocytes Pct Auto 0.2 0.0-0.5 % Neutrophils Absolute Auto 3.5 1.4-6.5 10 3/uL Lymphocytes Absolute Auto 1.5 1.2-3.8 10 3/uL Monocytes Absolute Auto 0.7 0.3-0.8 10 3/uL Eosinophils Absolute Auto 0.2 0.0-0.7 10 3/uL Basophils Absolute Auto 0.0 0.0-0.1 10 3/uL Immature Granulocytes Abs Auto 0.01 0.00-0.03 10 3/uL Performing Lab: see note ML - [facility] LB T4 Reviewed date:05/09/2024 11:55:27 AM Interpretation: Performing Lab: Notes/Report: [facility] , T4 Thyroxine 9.00 4.50-12.10 ug/dL Performing Lab: see note ML - [facility] LB TSH Reviewed date:05/09/2024 11:55:27 AM Interpretation: Performing Lab: Notes/Report: [facility] , Thyroid Stimulating Hormone 1.055 0.358-3.740 uIU/mL Performing Lab: see note ML - [facility] LB ECG 12 lead Reviewed date:05/09/2024 11:55:27 AM Interpretation: Performing Lab: Notes/Report: Source Facility: [place] [address] [place] [address] Electrocardiograph Report Signed Patient: KIM NICHOLS MR#: [id number] : 1960 Acct:[id number] Age/Sex: 63 / M ADM Date: 05/07/24 Loc: [place] 213-[address]: Avi Cervantes M.D. 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 Signed By: 05/08/24 1319 DD/ 1244 TD/TT: [employer]: [place] [address] Electrocardiograph Report Signed Patient: KIM NICHOLS MR#: [id number] : 1960 Acct:[id number] Age/Sex: 63 / M ADM Date: 05/07/24 Loc: [place] 213-[address]: Puja Cervantes M.D. 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 Signed By: 05/08/24 1319 DD/ 1244 TD/TT: [employer]: Troponin I High Sensitivity Reviewed date:05/09/2024 11:55:27 AM Interpretation: Performing Lab: Notes/Report: [facility] , Troponin I High Sensitivity 50.0 4.0-76.1 pg/mL CUT-OFF POINTS HAVE BEEN ESTABLISHED BASED ON THE FOURTH UNIVERSAL DEFINITION OF MYOCARDIAL INFARCTION. THE UPPER REFERENCE LIMIT (URL) OF TROPONIN, DEFINED THE 99TH PERCENTILE OF cTnI DISTRIBUTION IN A REFERENCE POPULATION, HAS BEEN CONFIRMED THE DECISION THRESHOLD FOR AR DIAGNOSIS. 99TH PERCENTILE = 76.2 PG/ML NOTE: HIGH-SENSITIVITY TROPONIN ASSAY IS NOT INTENDED TO BE USED IN ISOLATION BUT SHOULD BE INTERPRETED IN CONJUNCTION WITH OTHER DIAGNOSTIC AND CLINICAL INFORMATION. Performing Lab: see note ML - [facility] LB CBC AUTO DIFF Reviewed date:05/09/2024 11:55:27 AM Interpretation: Performing Lab: Notes/Report: [facility] , White Blood Count 6.5 4.0-11.0 10 3/uL Red Blood Count 5.80 4.70-6.10 10 6/uL Hemoglobin 16.6 14.0-18.0 g/dL Hematocrit 49.4 42.0-54.0 % Mean Corpuscular Volume 85.2 80.0-94.0 fL Mean Corpuscular Hemoglobin 28.6 25.9-34.0 pg Mean Corpuscular HGB Conc 33.6 29.9-35.2 g/dL Red Cell Distribution Width 13.4 11.0-15.0 % Platelet Count 221 150-450 10 3/uL Mean Platelet Volume 11.1 9.5-13.5 fL Neutrophils Percent Auto 60.5 43.0-75.0 % Lymphocytes Percent Auto 23.8 20.5-60.0 % Monocytes Percent Auto 11.5 1.7-12.0 % Eosinophils Percent Auto 3.4 0.9-7.0 % Basophils Percent Auto 0.5 0.2-2.0 % Immature Granulocytes Pct Auto 0.3 0.0-0.5 % Neutrophils Absolute Auto 3.9 1.4-6.5 10 3/uL Lymphocytes Absolute Auto 1.5 1.2-3.8 10 3/uL Monocytes Absolute Auto 0.7 0.3-0.8 10 3/uL Eosinophils Absolute Auto 0.2 0.0-0.7 10 3/uL Basophils Absolute Auto 0.0 0.0-0.1 10 3/uL Immature Granulocytes Abs Auto 0.02 0.00-0.03 10 3/uL Performing Lab: see note - [facility] LB PROF 14(COMP METB) Reviewed date:05/09/2024 11:55:27 AM Interpretation: Performing Lab: Notes/Report: Comment Total of 4 please and thank you [facility] , Sodium 140 136-145 mmol/L Potassium 3.0 3.5-5.1 mmol/L Chloride 100 98-107 mmol/L Carbon Dioxide 33.8 21.0-32.0 mmol/L Anion Gap 9.2 Glucose 92 74-106 mg/dL Blood Urea Nitrogen 18.0 7.0-18.0 mg/dL Creatinine 1.13 0.70-1.30 mg/dL Estimated GFR ( Tatiana >60 >=60 Estimated GFR (Non- [place] >60 >=60 BUN Creatinine Ratio 15.9 Calcium 9.2 8.5-10.1 mg/dL Bilirubin Total 0.7 0.2-1.0 mg/dL Aspartate Amino Transferase 34 15-37 U/L Alanine Aminotransferase 50 16-63 U/L Alkaline Phosphatase 55 46-116 U/L Total Protein 6.9 6.4-8.2 g/dL Albumin Level 3.4 3.4-5.0 g/dL Globulin 3.5 Albumin Globulin Ratio 1.0 Performing Lab: see note - [facility] LB Troponin I High Sensitivity Reviewed date:05/09/2024 11:55:27 AM Interpretation: Performing Lab: Notes/Report: Comment Total of 4 please and thank you [facility] , Troponin I High Sensitivity 54.9 4.0-76.1 pg/mL CUT-OFF POINTS HAVE BEEN ESTABLISHED BASED ON THE FOURTH UNIVERSAL DEFINITION OF MYOCARDIAL INFARCTION. THE UPPER REFERENCE LIMIT (URL) OF TROPONIN, DEFINED THE 99TH PERCENTILE OF cTnI DISTRIBUTION IN A REFERENCE POPULATION, HAS BEEN CONFIRMED THE DECISION THRESHOLD FOR AR DIAGNOSIS. 99TH PERCENTILE = 76.2 PG/ML NOTE: HIGH-SENSITIVITY TROPONIN ASSAY IS NOT INTENDED TO BE USED IN ISOLATION BUT SHOULD BE INTERPRETED IN CONJUNCTION WITH OTHER DIAGNOSTIC AND CLINICAL INFORMATION. Performing Lab: see note ML - [facility] Troponin I High Sensitivity Reviewed date:05/09/2024 11:55:27 AM Interpretation: Performing Lab: Notes/Report: Comment Total of 4 please and thank you [facility] , Troponin I High Sensitivity 57.1 4.0-76.1 pg/mL CUT-OFF POINTS HAVE BEEN ESTABLISHED BASED ON THE FOURTH UNIVERSAL DEFINITION OF MYOCARDIAL INFARCTION. THE UPPER REFERENCE LIMIT (URL) OF TROPONIN, DEFINED THE 99TH PERCENTILE OF cTnI DISTRIBUTION IN A REFERENCE POPULATION, HAS BEEN CONFIRMED THE DECISION THRESHOLD FOR AR DIAGNOSIS. 99TH PERCENTILE = 76.2 PG/ML NOTE: HIGH-SENSITIVITY TROPONIN ASSAY IS NOT INTENDED TO BE USED IN ISOLATION BUT SHOULD BE INTERPRETED IN CONJUNCTION WITH OTHER DIAGNOSTIC AND CLINICAL INFORMATION. Performing Lab: see note ML - [facility] PROF CHEM 8 (BAS METB) Reviewed date:05/09/2024 11:55:27 AM Interpretation: Performing Lab: Notes/Report: Comment use blood from this am? [facility] , Sodium 141 136-145 mmol/L Potassium 2.9 3.5-5.1 mmol/L RESULTS NORRIS D TO Lurdes Burgess RN Chloride 100 98-107 mmol/L Carbon Dioxide 29.5 21.0-32.0 mmol/L Anion Gap 14.4 Glucose 82 74-106 mg/dL Blood Urea Nitrogen 15.0 7.0-18.0 mg/dL Creatinine 1.03 0.70-1.30 mg/dL Estimated GFR ( Tatiana >60 >=60 Estimated GFR (Non- Cand[place]aria >60 >=60 BUN Creatinine Ratio 14.6 Calcium 9.2 8.5-10.1 mg/dL Performing Lab: see note ML - [facility] FL cineradiography Reviewed date:07/04/2024 08:44:38 PM Interpretation: Performing Lab: Notes/Report: Source Facility: [facility]-[address] [place] [address] [place] [address] Fluoroscopy Report Signed Patient: KIM NICHOLS MR#: [id number] : 1960 Acct:[id number] Age/Sex: 63 / M ADM Date: 07/02/24 Loc: [place] Attending Dr: Avi Cervantes M.D. Ordering Physician: Avi Cervantes M.D. Date of Service: 07/02/24 Procedure(s): [place] cineradiography Accession Number(s): [id number] cc: Avi Cervantes M.D. The [place] [id number] Patient Name: KIM NICHOLS MRN: [id number] date: 1960 Sex: M Assigned Patient Location: [place] Current Patient Location: [place] Accession/Order Number: [id number] Exam Date: 07/02/2024 08:18 Report Date: 07/02/2024 11:26 At the request of: AVI CERVANTES Procedure: FL cineradiography PROCEDURE: FL upper GI w air, FL cineradiography COMPARISON: None. HISTORY: Gastroesophageal Reflux Disease K21.9 TECHNIQUE: An air contrast upper gastrointestinal series was performed in the usual manner. Standard level fluoroscopic mode of operation utilized. FINDINGS: ESOPHAGUS:Trace amount of gastroesophageal reflux. No visible obstruction, dilatation, or hernia STOMACH: No obstruction, mass, or ulceration. Normal motility. DUODENUM:No ulceration or diverticulum. OTHER: Negative. FL/FL cineradiography IMPRESSION: 1. Trace amount of gastroesophageal reflux during the study. Otherwise normal examination. Electronically authenticated by: CHRIS VALENCIA Date: 07/02/2024 11:26 Dictated By: Chris Valencia M.D. Signed By: 07/02/24 1128 DD/ 1126 TD/TT: [employer]: [place] [address] Fluoroscopy Report Signed Patient: KIM NICHOLS MR#: [id number] : 1960 Acct:[id number] Age/Sex: 63 / M ADM Date: 07/02/24 Loc: [place] Attending Dr: Puja Cervantes M.D. Ordering Physician: Avi Cervantes M.D. Date of Service: 07/02/24 Procedure(s): FL cineradiography Accession Number(s): [id number] cc: Avi Cervantes M.D. The [place] [address] Patient Name: KIM NICHOLS MRN: [id number] date: 1960 Sex: M Assigned Patient Location: [place] Current Patient Loca tion: [place] Accession/Order Numb er: [id number] Exam Date: 07/02/2024 08:18 Report Date: 07/02/2024 11:26 At the request of: AVI CERVANTES Procedure: FL cineradiography PROCEDURE: FL upper GI w air, FL cineradiography COMPARISON: None. HISTORY: Gastroesoph ageal Reflux Disease K21.9 TECHNIQUE: An air contrast upper gastrointestinal series was performed in the usual manner. Standa rd level fluoroscopic mode of operation utilized. FINDINGS: ESOPHAGUS:Trace amou nt of gastroesophageal reflux. No visible obstruction, dilatation, or hernia STOMACH: No obstruct ion, mass, or ulceration. Normal motility. DUODENUM:No ulcerati on or diverticulum. OTHER: Negative. F L/FL cineradiography IMPRESSION: 1. Trace amount of gastroesophageal reflux during the study. Otherwise normal examination. Electronically authenticated by: CHRIS VALENCIA Date: 07/02/2024 11:26 Dictated By: Chris Valencia M.D. Signed By: 07/02/24 1128 DD/ 1126 TD/TT: [employer]: FL upper GI w air Reviewed date:07/04/2024 08:44:38 PM Interpretation: Performing Lab: Notes/Report: Source Facility: [place] [address] [place] [address] Fluoroscopy Report Signed Patient: KIM NICHOLS MR#: [id number] : 1960 Acct:[id number] Age/Sex: 63 / M ADM Date: 07/02/24 Loc: [place] Attending Dr: Avi Cervantes M.D. Ordering Physician: Avi Cervantes M.D. Date of Service: 07/02/24 Procedure(s): FL upper GI w air Accession Number(s): [id number] cc: Avi Cervantes M.D. The [address] [address] Patient Name: KIM NICHOLS MRN: [id number] date: 1960 Sex: M Assigned Patient Location: [place] Current Patient Location: [place] Accession/Order Number: [id number] Exam Date: 07/02/2024 08:18 Report Date: 07/02/2024 11:26 At the request of: AVI CERVANTES Procedure: FL upper GI w air PROCEDURE: FL upper GI w air, FL cineradiography COMPARISON: None. HISTORY: Gastroesophageal Reflux Disease K21.9 TECHNIQUE: An air contrast upper gastrointestinal series was performed in the usual manner. Standard level fluoroscopic mode of operation utilized. FINDINGS: ESOPHAGUS:Trace amount of gastroesophageal reflux. No visible obstruction, dilatation, or hernia STOMACH: No obstruction, mass, or ulceration. Normal motility. DUODENUM:No ulceration or diverticulum. OTHER: Negative. FL/FL upper GI w air IMPRESSION: 1. Trace amount of gastroesophageal reflux during the study. Otherwise normal examination. Electronically authenticated by: CHRIS VALENCIA Date: 07/02/2024 11:26 Dictated By: Chris Valencia M.D. Signed By: 07/02/24 1129 DD/ 1126 TD/TT: [employer]: [place] [address] Fluoroscopy Report Signed Patient: KIM NICHOLS MR#: [id number] : 1960 Acct:[id number] Age/Sex: 63 / M ADM Date: 07/02/24 Loc: [place] Attending Dr: Puja Cervantes M.D. Ordering Physician: Avi Cervantes M.D. Date of Service: 07/02/24 Procedure(s): FL upp er GI w air Accession Number(s): [id number] cc: Avi Cervantes M.D. The [address] [id number] Patient Name: KIM NICHOLS MRN: [id number] date: 1960 Sex: M Assigned Patient Location: [place] Current Patient Loca tion: [place] Accession/Order Numb er: [id number] Exam Date: 07/02/2024 08:18 Report Date: 07/02/2024 11:26 At the request of: AVI CERVANTES Procedure: FL upper GI w air PROCEDURE: FL upper GI w air, FL cineradiography COMPARISON: None. HISTORY: Gastroesoph ageal Reflux Disease K21.9 TECHNIQUE: An air contrast upper gastrointestinal series was performed in the usual manner. Standa rd level fluoroscopic mode of operation utilized. FINDINGS: ESOPHAGUS:Trace amou nt of gastroesophageal reflux. No visible obstruction, dilatation, or hernia STOMACH: No obstruct ion, mass, or ulceration. Normal motility. DUODENUM:No ulcerati on or diverticulum. OTHER: Negative. F L/FL upper GI w air IMPRESSION: 1. Trace amount of gastroesophageal reflux during the study. Otherwise normal examination. Electronically authenticated by: CHRIS VALENCIA Date: 07/02/2024 11:26 Dictated By: Chris Valencia M.D. Signed By: 07/02/24 1129 DD/ 1126 TD/TT: [employer]: PROF BRIGHT Child ([facility]) Reviewed date:06/13/2024 05:28:01 PM Interpretation: Performing Lab: Notes/Report: [facility] , Sodium 137 136-145 mmol/L Potassium 3.6 3.5-5.1 mmol/L Chloride 99 98-107 mmol/L Carbon Dioxide 30.9 21.0-32.0 mmol/L Anion Gap 10.7 Glucose 89 74-106 mg/dL Blood Urea Nitrogen 13.0 7.0-18.0 mg/dL Creatinine 1.04 0.70-1.30 mg/dL Estimated GFR ( Tatiana >60 >=60 Estimated GFR (Non- Candelaria >60 >=60 BUN Creatinine Ratio 12.5 Calcium 9.8 8.5-10.1 mg/dL Performing Lab: see note ML - [facility] LB LIPID PROFILE Reviewed date:06/13/2024 05:28:01 PM Interpretation: Performing Lab: Notes/Report: [facility] , Triglycerides 66 <=150 mg/dL Cholesterol 137 <=200 mg/dL HDL Cholesterol 46 40-60 mg/dL > or =60 mg/dl - LOW CARDIOVASCULAR RISK <40 mg/dl - HIGH CARDIOVASCULAR RISK LDL Cholesterol Calculated 77.8 <100 mg/dl OPTIMAL 100-129 mg/dl NEAR OR ABOVE OPTIMAL 130-159 mg/dl BORDERLINE HIGH 160-189 mg/dl HIGH >190 mg/dl VERY HIGH VLDL CHOLESTEROL 13.2 Chol HDL Ratio 3.0 3.3 - 4.4 LOW RISK 4.4 - 7.1 AVERAGE RISK 7.1 - 11.0 MODERATE RISK >11.0 HIGH RISK Performing Lab: see note ML - [facility] LB CA 30 day event monitor Reviewed date:06/10/2024 08:43:34 PM Interpretation: Performing Lab: Notes/Report: Source Facility: [facility]-[address] [place] [address] [place] [address] Cardiology Report Signed Patient: KIM NICHOLS MR#: [id number] : 1960 Acct:[id number] Age/Sex: 63 / M ADM Date: 05/27/24 Loc: CARD Attending Dr: Avi Cervantes M.D. Ordering Physician: Avi Cervantes M.D. Date of Service: 05/27/24 Procedure(s): CA 30 day event monitor Accession Number(s): [id number] cc: Avi Cervantes M.D. 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 Signed By: 06/09/24222006/09/242220 DD/ 4 TD/TT: [employer]: [place] [address] Cardiology Report Signed Patient: KIM NICHOLS MR#: [id number] : 1960 Acct:[id number] Age/Sex: 63 / M ADM Date: 05/27/24 Loc: CARD Attending Dr: Puja Cervantes M.D. Ordering Physician: Avi Cervantes M.D. Date of Service: 05/27/24 Procedure(s): CA 30 day event monitor Accession Number(s): [id number] cc: Avi Cervantes M.D. 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 Signed By: 06/09/24222006/09/242220 DD/ 4 TD/TT: [employer]: ALEENA skinner SPECT rest str Reviewed date:05/26/2024 07:36:50 PM Interpretation: Performing Lab: Notes/Report: Source Facility: [place] [address] [place] [address] Nuclear Medicine Report Signed Patient: KIM NICHOLS MR#: [id number] : 1960 Acct:[id number] Age/Sex: 63 / M ADM Date: 05/25/24 Loc: [place] Attending Dr: Avi Cervantes M.D. Ordering Physician: Avi Cervantes M.D. Date of Service: 05/25/24 Procedure(s): NM zainab perf SPECT rest str Accession Number(s): [id number] cc: Avi Cervantes M.D. Patient Name: KIM NICHOLS MR#: [id number] : 1960 Exam Date: 05/25/2024 Ordering Doctor: DR Avi Cervantes . RADIOLOGY REPORT PROCEDURE: NM ZAINAB PERF SPECT REST STR COMPARISON: None. INDICATIONS: ATRIAL FIBRILLATION, CHEST PAIN TECHNIQUE: Exam Description: Stress/Rest two day protocol gated SPECT Rest Imagin.2 mCi Tc-99m Cardiolite IV on 05/25/2024 Stress Imaging 26.2 mCi Tc-99m Cardiolite IV on 05/26/2024 Exercise Protocol: 0.4 mg Lexiscan given IV Heart Rate (bpm): Rest: 68 Max: 93 PMHR: 58 Blood Pressure: Rest: 132/88 Max: 132/88 Symptoms: Rest and peak stress ECG findings were pending and the exercise portion of the study was pending per attending physician Dr. Melara . For more details please see separate cardiac stress test report. FINDINGS: QUALITY OF STUDY: Good. PERFUSION DEFECT: LOCATION: Basal inferior. Mid-inferior. [place]. SIZE: Medium (3-4 segments). SEVERITY: Moderate. TYPE: Persistent. WALL MOTION: Normal. LV SIZE: Normal. 81 mL. TID / TCD: None; 0.9 LVEF: Normal. Calculated EF 59%. SUMMARY: Myocardial perfusion imaging study has ABNORMAL findings. CONCLUSION: 1. Fixed defect inferior wall and apex, primarily RCA distribution 2. No reversible ischemia 3. Pending exercise test results Dictated by: Oscar Franco MD on 05/26/2024 at 14:59 Approved by: Oscar Franco MD on 05/26/2024 at 15:00 Dictated By: Oscar Franco M.D. Signed By: 05/26/24 1501 DD/ 1500 TD/TT: [employer]: [place] [address] Nuclear Medicine Report Signed Patient: KIM NICHOLS MR#: [id number] : 1960 Acct:[id number] Age/Sex: 63 / M ADM Date: 05/25/24 Loc: [place] Attending Dr: Puja Cervantes M.D. Ordering Physician: Avi Cervantes M.D. Date of Service: 05/25/24 Procedure(s): NM zainab perf SPECT rest str Accession Number(s): [id number] cc: Avi Cervantes M.D. Patient Name: KIM NICHOLS MR#: [id number] : 1960 Exam Date: 05/25/2024 Ordering Doctor: DR Avi Cervantes . RADIOLOGY REPORT PROCEDURE: NM ZAINAB PE RF SPECT REST STR COMPARISON: None. INDICATIONS: ATRIAL FIBRILLATION, CHEST PAIN TECHNIQUE: Exam Description: Stress/Rest two day protocol gated SPECT Rest Imagin.2 m Ci Tc-99m Cardiolite IV on 05/25/2024 Stress Imaging 26.2 mCi Tc-99m Cardiolite IV on 05/26/2024 Exercise Protocol: 0 .4 mg Lexiscan given IV Heart Rate (bpm): Re st: 68 Max: 93 PMHR: 58 Blood Pressure: Res t: 132/88 Max: 132/88 Symptoms: Rest and peak stress ECG findings were pending and the exercise portion of the study was pending pe r attending physician Dr. Melara . For more details please see separate cardiac stress test report. FINDINGS: QUALITY OF STUDY: Good. PERFUSION DEFECT: LOCATION: Basal infe rior. Mid-inferior. [place]. SIZE: Medium (3-4 segments). SEVERITY: Moderate. TYPE: Persistent. WALL MOTION: Normal. LV SIZE: Normal. 81 mL. TID / TCD: None; 0.9 LVEF: Normal. Calcul ated EF 59%. SUMMARY: Myocardial perfusion imaging study has ABNORMAL findings. CONCLUSION: 1. Fixed defect infe rior wall and apex, primarily RCA distribution 2. No reversible ischemia 3. Pending exercise test results Dictated by: Oscar zhu MD on 05/26/2024 at 14:59 Approved by: Oscar zhu MD on 05/26/2024 at 15:00 Dictated By: Mandeep Franco M.D. Signed By: 05/26/24 1501 DD/ 1500 TD/TT: [employer]: Troponin I High Sensitivity Reviewed date:05/09/2024 11:55:27 AM Interpretation: Performing Lab: Notes/Report: [facility] , Troponin I High Sensitivity 54.7 4.0-76.1 pg/mL CUT-OFF POINTS HAVE BEEN ESTABLISHED BASED ON THE FOURTH UNIVERSAL DEFINITION OF MYOCARDIAL INFARCTION. THE UPPER REFERENCE LIMIT (URL) OF TROPONIN, DEFINED THE 99TH PERCENTILE OF cTnI DISTRIBUTION IN A REFERENCE POPULATION, HAS BEEN CONFIRMED THE DECISION THRESHOLD FOR AR DIAGNOSIS. 99TH PERCENTILE = 76.2 PG/ML NOTE: HIGH-SENSITIVITY TROPONIN ASSAY IS NOT INTENDED TO BE USED IN ISOLATION BUT SHOULD BE INTERPRETED IN CONJUNCTION WITH OTHER DIAGNOSTIC AND CLINICAL INFORMATION. Performing Lab: see note ML - [facility] LB XR chest 1V Reviewed date:05/09/2024 11:55:27 AM Interpretation: Performing Lab: Notes/Report: Source Facility: [place] [address] [place] [address] XRay Report Signed Patient: KIM NICHOLS MR#: [id number] : 1960 Acct:[id number] Age/Sex: 63 / M ADM Date: 05/07/24 Loc: ER Attending Dr: Ordering Physician: Stephanie Landers Date of Service: 05/07/24 Procedure(s): XR chest 1V Accession Number(s): [id number] cc: Avi Cervantes M.D.; Stephanie Landers [place] [address] Patient Name: KIM NICHOLS MRN: [id number] date: 1960 Sex: M Assigned Patient Location: ER Current Patient Location: ER Accession/Order Number: [id number] Exam Date: 05/07/2024 12:55 Report Date: 05/07/2024 13:27 At the request of: STEPHANIE LANDERS Procedure: XR chest 1V EXAMINATION: XR chest 1V HISTORY: chest discomfort COMPARISON: No relevant comparison available. TECHNIQUE: AP portable FINDINGS: LUNGS: No significant pulmonary parenchymal abnormalities. VASCULATURE: No increased pulmonary vasculature. PLEURA: No pneumothorax, effusion, or pleural thickening. CARDIAC: No cardiomegaly or cardiac silhouette abnormality. MEDIASTINUM: No visible mass or adenopathy. BONES: No fracture or visible bone lesion. OTHER: Negative. XR/XR chest 1V IMPRESSION: No acute cardiopulmonary process Electronically authenticated by: OSCAR FRANCO Date: 05/07/2024 13:27 Dictated By: Oscar Franco M.D. Signed By: 05/07/24 1330 DD/ 1327 TD/TT: [employer]: [place] [address] XRay Report Signed Patient: KIM NICHOLS MR#: [id number] : 1960 Acct:[id number] Age/Sex: 63 / M ADM Date: 05/07/24 Loc: ER Attending Dr: Ordering Physician: Stephanie Landers Date of Service: 05/07/24 Procedure(s): XR chest 1V Accession Number(s): [id number] cc: Avi Cervantes M.D. ; Stephanie Landers [place] [address] Patient Name: KIM NICHOLS MRN: [id number] date: 1960 Sex: M Assigned Patient Location: ER Current Patient Loca tion: ER Accession/Order Numb er: [id number] Exam Date: 05/07/2024 12:55 Report Date: 05/07/2024 13:27 At the request of: STEPHANIE LANDERS Procedure: XR chest 1V EXAMINATION: XR chest 1V HISTORY: chest discomfort COMPARISON: No relev ant comparison available. TECHNIQUE: AP portable FINDINGS: LUNGS: No significan t pulmonary parenchymal abnormalities. VASCULATURE: No incr eased pulmonary vasculature. PLEURA: No pneumotho rax, effusion, or pleural thickening. CARDIAC: No cardiome emily or cardiac silhouette abnormality. MEDIASTINUM: No visi ble mass or adenopathy. BONES: No fracture o r visible bone lesion. OTHER: Negative. X R/XR chest 1V IMPRESSION: No acute cardiopulmo nary process Electronically authenticated by: OSCAR FRANCO Date: 05/07/2024 13:27 Dictated By: Mandeep Franco M.D. Signed By: 05/07/24 133 DD/ 1327 TD/TT: [employer]: Ethanol Reviewed date:05/09/2024 11:55:27 AM Interpretation: Performing Lab: Notes/Report: [facility] , Ethanol <3 NOTE: 80 mg/dl is the legal limit for a blood alcohol level Performing Lab: see note ML - [facility] LB Troponin I High Sensitivity Reviewed date:05/09/2024 11:55:27 AM Interpretation: Performing Lab: Notes/Report: [facility] , Troponin I High Sensitivity 42.5 4.0-76.1 pg/mL CUT-OFF POINTS HAVE BEEN ESTABLISHED BASED ON THE FOURTH UNIVERSAL DEFINITION OF MYOCARDIAL INFARCTION. THE UPPER REFERENCE LIMIT (URL) OF TROPONIN, DEFINED THE 99TH PERCENTILE OF cTnI DISTRIBUTION IN A REFERENCE POPULATION, HAS BEEN CONFIRMED THE DECISION THRESHOLD FOR AR DIAGNOSIS. 99TH PERCENTILE = 76.2 PG/ML NOTE: HIGH-SENSITIVITY TROPONIN ASSAY IS NOT INTENDED TO BE USED IN ISOLATION BUT SHOULD BE INTERPRETED IN CONJUNCTION WITH OTHER DIAGNOSTIC AND CLINICAL INFORMATION. Performing Lab: see note ML - [facility] PROF 14(COMP METB) Reviewed date:05/09/2024 11:55:27 AM Interpretation: Performing Lab: Notes/Report: [facility] , Sodium 139 136-145 mmol/L Potassium 2.8 3.5-5.1 mmol/L RESULTS NORRIS D TO AZEB WHITMORE Chloride 98 98-107 mmol/L Carbon Dioxide 28.1 21.0-32.0 mmol/L Anion Gap 15.7 Glucose 95 74-106 mg/dL Blood Urea Nitrogen 20.0 7.0-18.0 mg/dL Creatinine 1.10 0.70-1.30 mg/dL Estimated GFR ( Tatiana >60 >=60 Estimated GFR (Non- Candelaria >60 >=60 BUN Creatinine Ratio 18.2 Calcium 9.5 8.5-10.1 mg/dL Bilirubin Total 0.7 0.2-1.0 mg/dL Aspartate Amino Transferase 32 15-37 U/L Alanine Aminotransferase 47 16-63 U/L Alkaline Phosphatase 61 46-116 U/L Total Protein 7.4 6.4-8.2 g/dL Albumin Level 3.5 3.4-5.0 g/dL Globulin 3.9 Albumin Globulin Ratio 0.9 Performing Lab: see note ML - [facility] MAGNESIUM Reviewed date:05/09/2024 11:55:27 AM Interpretation: Performing Lab: Notes/Report: [facility] , Magnesium 1.9 1.8-2.4 mg/dL Performing Lab: see note ML - [facility] LB MR knee LT wo con Reviewed date:04/29/2024 12:44:52 PM Interpretation: Performing Lab: Notes/Report: Source Facility: [place] [address] [place] [address] Magnetic Resonance Report Signed Patient: KIM NICHOLS MR#: [id number] : 1960 Acct:[id number] Age/Sex: 63 / M ADM Date: 04/27/24 Loc: MRI Attending Dr: Avi Cervantes M.D. Ordering Physician: Avi Cervantes M.D. Date of Service: 04/27/24 Procedure(s): MR knee LT wo con Accession Number(s): [id number] cc: Avi Cervantes M.D. The [place] [address] Patient Name: KIM NICHOLS MRN: [id number] date: 1960 Sex: M Assigned Patient Location: MRI Current Patient Location: Accession/Order Number: [id number] Exam Date: 04/27/2024 06:55 Report Date: 04/28/2024 08:42 At the request of: AVI CERVANTES Procedure: MR knee LT wo con EXAMINATION: MR knee LT wo con HISTORY: knee osteoarthritis M17.9 ; chronic knee pain COMPARISON: XR knee left 03/12/2024 TECHNIQUE: A complete multi-planar MRI was performed. FINDINGS: MEDIAL COMPARTMENT MEDIAL MENISCUS: No visible tear or significant degeneration. CARTILAGE: Marked thinning with focal areas of loss of cartilage overlying the weightbearing surface of the femoral condyle. BONES: Prominent marrow edema adjacent weightbearing surface of medial femoral condyle. . MCL AND MEDIAL CAPSULE: Grade I sprain of the medial collateral ligament. LATERAL COMPARTMENT LATERAL MENISCUS: No visible tear or significant degeneration. CARTILAGE: No visible defect. BONES: No marrow pathology, fracture, or significant arthropathy. LCL/POSTEROLAT COMPLEX: Normal lateral collateral ligament, fascicles, lateral capsule and ligaments. ANTERIOR COMPARTMENT PATELLA: No marrow pathology, fracture, or significant arthropathy. CARTILAGE: No visible defect. TENDONS: Normal. EFFUSION: Large joint effusion. ACL: Normal appearing ligament. PCL: Normal appearing ligament. MENISCOFEMORAL: Normal meniscofemoral ligaments. OTHER: Prominent Willis cyst. MR/MR knee LT wo con IMPRESSION: 1. Prominent bone bruising of medial femoral condyle with overlying cartilage thinning and focal areas of cartilage loss. 2. Mild strain of medial collateral ligament. 3. Large joint effusion. 4. Prominent Willis cyst. Electronically authenticated by: CHRIS VALENCIA Date: 04/28/2024 08:42 Dictated By: Chris Valencia M.D. Signed By: 04/28/2444 DD/ TD/TT: [employer]: [place] [address] Magnetic Resonance Report Signed Patient: KIM NICHOLS MR#: [id number] : 1960 Acct:[id number] Age/Sex: 63 / M ADM Date: 04/27/24 Loc: MRI Attending Dr: Puja Cervantes M.D. Ordering Physician: Avi Cervantes M.D. Date of Service: 04/27/24 Procedure(s): kne e LT wo con Accession Number(s): [id number] cc: Avi Cervantes M.D. [place] [address] Patient Name: KIM NICHOLS MRN: [id number] date: 1960 Sex: M Assigned Patient Location: MRI Current Patient Location: Accession/Order Numb er: [id number] Exam Date: 04/27/2024 06:55 Report Date: 04/28/2024 08:42 At the request of: AVI CERVANTES Procedure: MR knee L T wo con EXAMINATION: MR knee LT wo con HISTORY: knee osteoarthritis M17.9 ; chronic knee pain COMPARISON: XR knee left 03/12/2024 TECHNIQUE: A complet e multi-planar MRI was performed. FINDINGS: MEDIAL COMPARTMENT MEDIAL MENISCUS: No visible tear or significant degeneration. CARTILAGE: Marked thinning with focal areas of loss of cartilage overlying the weightbearing surfac e of the femoral condyle. BONES: Prominent mar row edema adjacent weightbearing surface of medial femoral condyle. . MCL AND MEDIAL CAPSU LE: Grade I sprain of the medial collateral ligament. LATERAL COMPARTMENT LATERAL MENISCUS: No visible tear or significant degeneration. CARTILAGE: No visibl e defect. BONES: No marrow pathology, fracture, or significant arthropathy. LCL/POSTEROLAT COMPL EX: Normal lateral collateral ligament, fascicles, lateral capsule and ligaments. ANTERIOR COMPARTMENT PATELLA: No marrow pathology, fracture, or significant arthropathy. CARTILAGE: No visibl e defect. TENDONS: Normal. EFFUSION: Large join t effusion. ACL: Normal appearin g ligament. PCL: Normal appearin g ligament. MENISCOFEMORAL: Norm al meniscofemoral ligaments. OTHER: Prominent Donna er cyst. M R/MR knee LT wo con IMPRESSION: 1. Prominent bone bruising of medial femoral condyle with overlying cartilage thinning and focal a reas of cartilage loss. 2. Mild strain of me dial collateral ligament. 3. Large joint effusion. 4. Prominent Willis cyst. Electronically authenticated by: CHRIS VALENCIA Date: 04/28/2024 08:42 Dictated By: Chris Valencia M.D. Signed By: 04/28/24 0844 DD/ 0842 TD/TT: [employer]: BIBI echo doppler complete Reviewed date:05/25/2024 07:24:38 PM Interpretation: Performing Lab: Notes/Report: Source Facility: [place] [address] [place] [address] Cardiology Report Signed Patient: KIM NICHOLS MR#: [id number] : 1960 Acct:[id number] Age/Sex: 63 / M ADM Date: 05/25/24 Loc: NM Attending Dr: Avi Cervantes M.D. Ordering Physician: Avi Cervantes M.D. Date of Service: 05/25/24 Procedure(s): CA echo doppler complete Accession Number(s): [id number] cc: Avi Cervantes M.D. Patient Name: KIM NICHOLS MR#: [id number] : 1960 Exam Date: 05/25/2024 Ordering Doctor: DR Avi Cervantes . ECHOCARDIOGRAM REPORT PROCEDURE: CA ECHO DOPPLER COMPLETE INDICATIONS: Atrial fibrillation, Chest pain, MILIAN COMPARISON: None. DESCRIPTION: COMPLETE ECHOCARDIOGRAM Real-time transthoracic echocardiography with 2D, M-mode, spectral and color flow Doppler performed. QUALITY: Technical quality was good. LEFT VENTRICLE: Normal chamber size. Normal left ventricular wall thickness. LV EF: Global left ventricular systolic function is normal. Visual estimation of left ventricular ejection fraction is 60%. No obvious wall motion abnormalities DIASTOLIC: Normal diastolic function. ATRIAL SEPTUM: Inadequately seen LEFT ATRIUM: Normal chamber size. RIGHT ATRIUM: Normal chamber size. RIGHT VENTRICLE: Appears enlarged. Systolic function appears reduced. TRICUSPID VALVE: Normal mobility and thickness. No stenosis with trivial regurgitation. No evidence of pulmonary hypertension. RVSP 23mmHg. MITRAL VALVE: Normal mobility and thickness. No evidence of mitral valve stenosis. There is no mitral annular calcification. No mitral regurgitation. AORTIC VALVE: Normal trileaflet appearance. No visible sclerosis. Normal leaflet mobility. No evidence of aortic valve stenosis. No aortic regurgitation. AORTIC ROOT: Normal diameter and appearance. PULMONIC VALVE: Normal thickness and mobility. No stenosis. No regurgitation. PERICARDIUM: No evidence of pericardial effusion. IVC: Collapses with inspirations. Normal size. CONCLUSION: 1. Global left ventricular systolic function is normal; visually estimated ejection fraction is 60 to 65% 2. The right ventricle appears enlarged with reduced systolic function 3. Normal diastolic function 4. The valves are poorly seen; no significant valvular abnormalities Adult Echocardiography Procedure Report Left Ventricle LVEDD (3.7 - 5.6 cm): 5.08 cm LVESD (2.2 - 4.0 cm): 3.13 cm LVIVS thickness (0.6 - 1.2 cm): 0.89 cm LVPW thickness (0.5 - 1.0 cm): 0.71 cm e': 0.10 m/s E - e': 3.82 LVOT Max Gradient: 1.87 mm[Hg] LVOT Area (cm2): 0.68 m/s Peak Velocity (LVOT): 0.68 m/s Mean Velocity (LVOT): 0.52 m/s LVOT Diameter 2.33 cm Left Atrium LA Volume Index (2D A2C): 14.77 ml/m2 Left Atrium Systolic Dimension: 2.82 cm Mitral Valve MV E to A Ratio: 0.91 Mitral Valve A-Wave Peak Velocity: 0.41 m/s Mitral Valve E-Wave Peak Velocity: 0.37 m/s Right Ventricle RV Internal Diastolic Dimension: 3.37 cm Aorta AO Root Diam: 3.34 cm Ascending Ao Diam: 3.56 cm Aortic Valve AoV Area (Peak Andrew): 2.68 cm2, 2.68 cm2 AoV Area (VTI): 2.21 cm2, 2.21 cm2 Peak Velocity(Antegrade Flow): 1.09 m/s Peak Gradient(Antegrade Flow): 4.72 mm[Hg] Mean Velocity(Antegrade Flow): 0.77 m/s Mean Gradient(Antegrade Flow): 2.71 mm[Hg] Velocity Time Integral: 26.77 cm Tricuspid Valve Peak Velocity (Regurgitant Flow): 2.23 m/s, 1.84 m/s, 2.26 m/s Pulmonic Valve Mean Gradient: 1.72 mm[Hg] Mean Velocity: 0.62 m/s Peak Velocity: 0.94 m/s, 0.59 m/s Peak Gradient: 1.39 mm[Hg], 3.56 mm[Hg] Right Atrium Right Atrium Systolic Pressure: 38.01 ml, 38.01 ml Dictated by: Jero Mims M.D. on 05/25/2024 at 13:51 Approved by: Jero Mims M.D. on 05/25/2024 at 13:54 Dictated By: Jero Mims M.D. Signed By: 05/25/24 1355 DD/ 53 TD/TT: [employer]: [place] [address] Cardiology Report Signed Patient: KIM NICHOLS MR#: [id number] : 1960 Acct:[id number] Age/Sex: 63 / M ADM Date: 05/25/24 Loc: NM Attending Dr: Puja Cervantes M.D. Ordering Physician: Avi Cervantes M.D. Date of Service: 05/25/24 Procedure(s): CA ech o doppler complete Accession Number(s): [id number] cc: Avi Cervantes M.D. Patient Name: KIM NICHOLS MR#: [id number] : 1960 Exam Date: 05/25/2024 Ordering Doctor: DR Avi Cervantes . ECHOCARDIOGRAM REPORT PROCEDURE: CA ECHO DOPPLER COMPLETE INDICATIONS: Atrial fibrillation, Chest pain, MILIAN COMPARISON: None. DESCRIPTION: COMPLET E ECHOCARDIOGRAM Real-time transthoracic echocardiography wit h 2D, M-mode, spectral and color flow Doppler performed. QUALITY: Technical quality was good. LEFT VENTRICLE: Nor mal chamber size. Normal left ventricular wall thickness. LV EF: Global left ventricular systolic function is normal. Visual estimation of left ventricular ejection fraction is 60%. No obvious wall motion abnormalities DIASTOLIC: Normal diastolic function. ATRIAL SEPTUM: Inadequately seen LEFT ATRIUM: Normal chamber size. RIGHT ATRIUM: Normal chamber size. RIGHT VENTRICLE: Vilma ears enlarged. Systolic function appears reduced. TRICUSPID VALVE: Nor mal mobility and thickness. No stenosis with trivial regurgitation. No evidence of pulmonary hypertension. RVSP 23mmHg. MITRAL VALVE: Normal mobility and thickness. No evidence of mitral valve stenosis. There is n o mitral annular calcification. No mitral regurgitation. AORTIC VALVE: Normal trileaflet appearance. No visible sclerosis. Normal leaflet mobility. No evidence of aortic valve stenosis. No aortic regurgitation. AORTIC ROOT: Normal diameter and appearance. PULMONIC VALVE: Norm al thickness and mobility. No stenosis. No regurgitation. PERICARDIUM: No evid ence of pericardial effusion. IVC: Collapses with inspirations. Normal size. CONCLUSION: 1. Global left ventricular systolic function is normal; visually estimated ejection fraction is 60 to 65% 2. The right ventric le appears enlarged with reduced systolic function 3. Normal diastolic function 4. The valves are po alicia seen; no significant valvular abnormalities Adult Echocardiograp hy Procedure Report Left Ventricle LVEDD (3.7 - 5.6 cm) : 5.08 cm LVESD (2.2 - 4.0 cm) : 3.13 cm LVIVS thickness (0.6 - 1.2 cm): 0.89 cm LVPW thickness (0.5 - 1.0 cm): 0.71 cm e': 0.10 m/s E - e': 3.82 LVOT Max Gradient: 1 .87 mm[Hg] LVOT Area (cm2): 0.68 m/s Peak Velocity (LVOT) : 0.68 m/s Mean Velocity (LVOT) : 0.52 m/s LVOT Diameter 2.33 cm Left Atrium LA Volume Index (2D A2C): 14.77 ml/m2 Left Atrium Systolic Dimension: 2.82 cm Mitral Valve MV E to A Ratio: 0.91 Mitral Valve A-Wave Peak Velocity: 0.41 m/s Mitral Valve E-Wave Peak Velocity: 0.37 m/s Right Ventricle RV Internal Diastoli c Dimension: 3.37 cm Aorta AO Root Diam: 3.34 cm Ascending Ao Diam: 3 .56 cm Aortic Valve AoV Area (Peak Andrew): 2.68 cm2, 2.68 cm2 AoV Area (VTI): 2.21 cm2, 2.21 cm2 Peak Velocity(Antegr sidney Flow): 1.09 m/s Peak Gradient(Antegr sidney Flow): 4.72 mm[Hg] Mean Velocity(Antegr sidney Flow): 0.77 m/s Mean Gradient(Antegr sidney Flow): 2.71 mm[Hg] Velocity Time Integr al: 26.77 cm Tricuspid Valve Peak Velocity (Regurgitant Flow): 2.23 m/s, 1.84 m/s, 2.26 m/s Pulmonic Valve Mean Gradient: 1.72 mm[Hg] Mean Velocity: 0.62 m/s Peak Velocity: 0.94 m/s, 0.59 m/s Peak Gradient: 1.39 mm[Hg], 3.56 mm[Hg] Right Atrium Right Atrium Systoli c Pressure: 38.01 ml, 38.01 ml Dictated by: Jero Mims M.D. on 05/25/2024 at 13:51 Approved by: Jero Mims M.D. on 05/25/2024 at 13:54 Dictated By: Jero Mims M.D. Signed By: 05/25/24 1355 DD/ 1354 TD/TT: [employer]: CBC AUTO DIFF Reviewed date:07/11/2024 11:24:42 AM Interpretation: Performing Lab: Notes/Report: [facility] , White Blood Count 6.4 4.0-11.0 10 3/uL Red Blood Count 5.39 4.70-6.10 10 6/uL Hemoglobin 15.6 14.0-18.0 g/dL Hematocrit 46.2 42.0-54.0 % Mean Corpuscular Volume 85.7 80.0-94.0 fL Mean Corpuscular Hemoglobin 28.9 25.9-34.0 pg Mean Corpuscular HGB Conc 33.8 29.9-35.2 g/dL Red Cell Distribution Width 13.9 11.0-15.0 % Platelet Count 246 150-450 10 3/uL Mean Platelet Volume 10.5 9.5-13.5 fL Neutrophils Percent Auto 62.1 43.0-75.0 % Lymphocytes Percent Auto 22.3 20.5-60.0 % Monocytes Percent Auto 11.6 1.7-12.0 % Eosinophils Percent Auto 3.0 0.9-7.0 % Basophils Percent Auto 0.5 0.2-2.0 % Immature Granulocytes Pct Auto 0.5 0.0-0.5 % Neutrophils Absolute Auto 4.0 1.4-6.5 10 3/uL Lymphocytes Absolute Auto 1.4 1.2-3.8 10 3/uL Monocytes Absolute Auto 0.7 0.3-0.8 10 3/uL Eosinophils Absolute Auto 0.2 0.0-0.7 10 3/uL Basophils Absolute Auto 0.0 0.0-0.1 10 3/uL Immature Granulocytes Abs Auto 0.03 0.00-0.03 10 3/uL Performing Lab: see note ML - [facility] Reason For Referral Diagnosis 1 Synovial cyst of pop liteal space [Willis], unspecified knee (M71.20) Referral Organization [facility] ([place], [place]) Medicine Referring Provider First Name Del Referring Provider Last Name Billy Referring Provider Speciality Family Med dara Referred Provider Landon Thomas Referred Provider Specialty Orthopedic S urgery Referral Priority Routine Reason LOW FAT/ HEART HE ALTHY DIET Diagnosis 1 BMI 40.0-44.9, adult (Z68.41) Referral Organization [facility] Referring Provider First Name Del Referring Provider Last Name Billy Referring Provider [facility] gregne Referred Provider Specialty Dietitian Referral Priority Routine Diagnosis 1 Chest pain (R07.9) Referral Organization [facility] Referring Provider First Name Del Referring Provider Last Name Billy Referring Provider [facility] gregne Referred Provider [facility] Cardiology, [facility] Referred Provider Specialty Cardiology Referral Priority Routine Diagnosis 1 Gastro-esophageal re flux disease without esophagitis (K21.9) Referral Organization [facility] Referring Provider First Name Del Referring Provider Last Name Billy [facility]erred Provider Rell Hall Referred Provider Specialty General Surg ahsan Referral Priority Routine Diagnosis 1 Chronic midline low back pain without sciatica (M54.50) Referral Organization [facility] Referring Provider First Name Del Referring Provider Last Name Billy Referring Provider [facility] dara Referred Provider Pain Management, [facility] Referred Provider Specialty Pain Medicin e Referral Priority Routine Medications Medication SIG (Take, Route, Frequency, Duration) Notes Start Date End Date Status Gabapentin 300 MG TAKE 3 CAPSULES EVERY MORNING AND TAKE 2 CAPSULESAT BEDTIME Orally as directed for 90 days Active HYDROcodone-Acetaminop hen 5-325 MG 1 tablet as needed Orally every 6 hrs for 7 days 04/11/2025 Active HYDROcodone-Acetaminop hen 5-325 MG 1 tablet as needed - max sdose 2/day Orally every 6 hrs PRN 02/17/2025 Active Chlorthalidone 25 MG TAKE 1 TABLET BY MOUTH EVERY MORNING WITH FOOD FOR 90 DAYS for 90 Active Urea 40 % 1 application as needed to bottom of feet Externally Once a day for 30 days Dispense large trade size bottle/tube 10/07/2024 Active Eliquis 5 MG 1 tablet Orally twice daily for 90 days 06/25/2024 Active Terbinafine HCl 1 % 1 application Externally bid for 21 days 10/12/2024 Active Aspirin Adult Low Dose 81 MG 1 tablet Orally Once a day Active Triamcinolone Acetonide 0.1 % 1 application [...] a day for 90 days 06/25/2024 Active Social History Tobacco Use: Social History Observation Description Date Details (start date - stop date) Never Smoker NA - NA Tobacco Use/Smoking Question Answer Notes Patient is a nonsmoker Alcohol Screen (Audit-C) Question Answer Notes Did you have a drink containing alcohol in the p ast year? No Points 0 Interpretation Negative AUDIT-C (Standard) Question Answer Notes Did you [...] Problem Status W/U Status Risk Notes Problem Gastro-esophageal reflux disease without esophagitis (795127614) Gastro-esophageal reflux disease without esophagitis (K21.9) Active confirmed Problem Osteoarthritis of knee (695636347) Unilateral primary osteoarthritis, left knee (M17.12) Active confirmed Problem 06341387 Other intervertebral disc displacement, lumbosacral region (M51.27) Active confirmed Problem 165695507 Other specified symptoms and signs involving the circulatory and respiratory systems (R09.89) Active confirmed Problem Chest pain (54258539) Chest pain (R07.9) Active confirmed Problem Atrial fibrillation (03733740) Atrial fibrillation (I48.91) Active confirmed Problem History of cholecystectomy (387505817) History of cholecystectomy (Z90.49) Active confirmed Problem Osteoarthritis of knee (978774101) Knee osteoarthritis (M17.9) Active confirmed Problem Migraine (27518319) Migraine (G43.909) Active confirmed Problem Benign essential hypertension (4837493) Benign essential hypertension (I10) Active confirmed Problem Lumbar radiculopathy (496446635) Lumbar radiculopathy (M54.16) Active confirmed Problem Acute sinusitis (49569860) Acute sinusitis (J01.90) Active confirmed Problem Well adult (592486768) Well adult (Z00.00) Active confirmed Problem Impotence (N52.9) Active confirmed Problem Willis cyst, 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) Active confirmed Problem Body mass index 40+ - morbidly obese (092931830) BMI 40.0-44.9, adult (Z68.41) Active confirmed Problem Atrial fibrillation (79355539) New onset a-fib (I48.91) Active confirmed Problem 291001178 Spinal stenosis, lumbar region without neurogenic claudication (M48.061) Active confirmed Problem Osteoarthritis of knee (193209105) Knee osteoarthritis (M17.10) Active confirmed Problem Dyspnea on exertion (56870128) MILIAN (dyspnea on exertion) (R06.00) Active confirmed Problem Chronic low back pain (finding) (638772499) Chronic midline low back pain without sciatica (M54.50) Active confirmed Vital Signs Heart Rate 76 /min 10/07/2024 Temperature 98 degrees Fahrenheit 10/07/2024 Respiratory Rate 16 /min 10/07/2024 Oximetry 98 % 10/07/2024 Blood pressure diastolic 68 mm Hg 04/11/2025 Height 70 in 04/11/2025 Blood pressure systolic 116 mm Hg 04/11/2025 Weight 264.8 lbs 04/11/2025 BMI 37.99 kg/m2 04/11/2025 Encounters Encounter Location Date Provider Diagnosis [facility] [address] [place] [address] 05/12/2024 Del Hoy Atrial fibrillation I48.91 ; Chest pain R07.9 and MILIAN (dyspnea on exertion) R06.00 [facility] [address] [place] [address] 06/16/2024 Del Hoy Gastro-esophageal reflux disease without esophagitis K21.9 ; Benign essential hypertension I10 ; Chest pain R07.9 ; New onset a-fib I48.91 and Knee osteoarthritis M17.9 [facility] [address] [place] [address] 09/10/2024 Del Hoy Benign essential hypertension I10 ; Well adult Z00.00 and Chest pain R07.9 [facility] [address] [place] [address] 12/07/2024 Del Hoy Benign essential hypertension I10 ; Chronic midline low back pain without sciatica M54.50 and Atrial fibrillation I48.91 [facility] [address] [place] [place] [address] 04/11/2025 Del Hoy Knee osteoarthritis M17.10 ; Thoracic back pain M54.6 and Well adult Z00.00 [facility] ([facility]) [address] [place] [address] [place] [address] 10/07/2024 Elis Salcedo Tinea pedis B35.3 [facility] [address] [place] [address] 04/29/2024 Del Hoy Synovial cyst of popliteal space [Willis], unspecified knee M71.20 [facility] [address] [place] [address] 05/12/2024 Del Hoy BMI 40.0-44.9, adult Z68.41 and Benign essential hypertension I10 [facility] [address] [place] [address] 05/25/2024 Del Hoy Atrial fibrillation I48.91 [facility] [address] [place] [address] 05/25/2024 Del Hoy [facility] [address] [place] [address] 05/26/2024 Del Hoy Chest pain R07.9 and Atrial fibrillation I48.91 [facility] [address] [place] [address] 06/10/2024 Del Hoy [facility] [address] [place] [address] 06/16/2024 Del Hoy Back pain M54.9 [facility] [address] [place] [address] 06/21/2024 Del Hoy Gastro-esophageal reflux disease without esophagitis K21.9 [facility] [address] [place] [address] 06/25/2024 Del Hoy [facility] [address] [place] [address] 07/04/2024 Del Hosvetlana Gastro-esophageal reflux disease without esophagitis K21.9 [facility] [address] [place] [address] 10/04/2024 Del Hoy Benign essential hypertension I10 [facility] (POD[facility]AT[facility]) [address] [place] [address] [place] [address] 10/12/2024 Elis Salcedo [facility] [address] [place] [address] 02/17/2025 Del Hoy Benign essential hypertension I10 Assessments Encounter Date Diagnosis (ICD Code) Assessment Notes Treatment Notes Treatment Clinical Notes Section Notes 09/10/2024 Benign essential hypertension (ICD-10 - I10) 09/10/2024 Well adult (ICD-10 - Z00.00) 10/07/2024 Tinea pedis (ICD-10 - B35.3) The patient is a pleasant 64-year-old gentleman who presents with recurrent eruption on both plantar feet consistent with tinea pedis/moccasin foot.The patient was previously treated with Lotrisone and topical urea, however symptoms recurred.Prior to that he tried several ygeu-ops-utkwwwu remedies which failed to provide relief in symptoms.The patient could benefit from oral antifungals, however he is on several medications that could interact, so I would feel more comfortable if this type of medication was prescribed by his primary care provider.I would like to try topical Luzu. He was also given a prescription for topical urea to start when the Luzu course is finished. 12/07/2024 Benign essential hypertension (ICD-10 - I10) 12/07/2024 Chronic midline low back pain without sciatica (ICD-10 - M54.50) 06/16/2024 Gastro-esophageal reflux disease without esophagitis (ICD-10 - K21.9) 06/16/2024 Benign essential hypertension (ICD-10 - I10) 05/12/2024 Atrial fibrillation (ICD-10 - I48.91) needs stress and echo 05/12/2024 Chest pain (ICD-10 - R07.9) 04/11/2025 Knee osteoarthritis (ICD-10 - M17.10) neecs new on 0 nees pain meds due to new knee 04/11/2025 Thoracic back pain (ICD-10 - M54.6) 04/11/2025 Well adult (ICD-10 - Z00.00) 04/29/2024 Synovial cyst of popliteal space [Willis], unspecified knee (ICD-10 - M71.20) 05/12/2024 BMI 40.0-44.9, adult (ICD-10 - Z68.41) 05/12/2024 Benign essential hypertension (ICD-10 - I10) 05/25/2024 Atrial fibrillation (ICD-10 - I48.91) 05/26/2024 Chest pain (ICD-10 - R07.9) 05/26/2024 Atrial fibrillation (ICD-10 - I48.91) 06/16/2024 Back pain (ICD-10 - M54.9) 06/21/2024 Gastro-esophageal reflux disease without esophagitis (ICD-10 - K21.9) 07/04/2024 Gastro-esophageal reflux disease without esophagitis (ICD-10 - K21.9) 10/04/2024 Benign essential hypertension (ICD-10 - I10) 02/17/2025 Benign essential hypertension (ICD-10 - I10) 05/12/2024 MILIAN (dyspnea on exertion) (ICD-10 - R06.00) 06/16/2024 Chest pain (ICD-10 - R07.9) 12/07/2024 Atrial fibrillation (ICD-10 - I48.91) 09/10/2024 Chest pain (ICD-10 - R07.9) 06/16/2024 New onset a-fib (ICD-10 - I48.91) 06/16/2024 Knee osteoarthritis (ICD-10 - M17.9) Plan Of Treatment Pending Test Test Name Order Date MRI : Knee, left 04/16/2024 Event Monitor 05/25/2024 CMP (COMPLETE METABOLIC PANEL) HEMOGLOBIN A1C (GLYCO) 11/13/2023 HEMOGLOBIN A1C (GLYCO) 04/11/2025 INSULIN, TOTAL 04/11/2025 LIPID PANEL (CHOL/TRIG/HDL/LDL) 04/11/20 25 LIPID PANEL (CHOL/TRIG/HDL/LDL) 11/13/19 24 CBC WITH DIFF 11/13/2023 PSA, PROSTATE-SPECIFIC ANTIGEN 4 Stress Test Lexiscan Persantine (Lexisca n Stress Test) 05/12/2024 XR Upper GI 06/21/2024 MRI LSPINE WO CON 03/25/2023 THYROID PANEL (T4/TSH/FREE T3) 4 THYROID PANEL (T4/TSH/FREE T3) 5 XR thoracic spine 3V 06/16/2024 XR thoracic spine 3V 04/11/2025 PSA, SCREENING 04/11/2025 CMP (COMP MET ELY) w/eGFR CKD-EPI 2024 CBC WITH DIFF 04/11/2025 Next Appt Details Provider Name:Del Cervantes, 10:30:00 AM, [address] [place], [address], Insurance Providers Payer Name Payer Address Payer Phone Subscriber Number Group Number Insured Name Patient Relationship to Insured Coverage Start Date Coverage End Date [employer] [place] [address] [place] [address] [id number] Stella Nichols Spouse - patient is the spouse of the insured 8 Medications Administered Medication Instructions Date of Administration Dosage Notes Kenalog-40 03/17/2024 80 mg with 1 cc of l odocaine with EPI Medical (General) History Medical History History ICD Code Acute sinusitis J01.90 Impotence N52.9 History of cholecystectomy Z90.49 Chronic midline low back pain without sc iatica M54.50 Well adult Z00.00 Migraine G43.909 Gastro-esophageal reflux disease without esophagitis K21.9 Benign essential hypertension I10 Surgical History Surgery Date(Month/Year) EGD with biopsy of gastric polyp and col onoscopy to cecum 08/25/2024 Laproscopic Gall Bladder Removal Right Knee Scope 07/29/24 Septal Plasty Hospitalization History Reason Date(Month/Year) see above
--- OUTSIDE RECORDS SUMMARY | 2025-04-21 07:51 | XMS_ITS | Encounter Summary ---
Author Organization [facility] Address [address] [place] [address] Phone Care Team Providers Care Yarn Sizer Name Role Phone Jason Cervantes MD Primary Care Provider [phone] Encounter Details Date Type Department Care Team (Late st Contact Info) Description 04/20/2019 Orders Only [facility] [address] [place] [address] Conversion, Onbase Social History Tobacco Use Types Packs/Day Years Used Date Smoking Tobacco: Never Assessed Sex and Gender Information Value Date Recorded Sex Assigned at Not on file Legal Sex Male 4:21 PM EST Gender Identity Not on file Sexual Orientation Not on file documented as of this encounter Plan of Treatment Scheduled Orders Name Type Priority Associated Diagnoses Orde r Schedule OUTSIDE LAB SCAN Lab Ordered: 04/20/2019 documented as of this encounter Visit Diagnoses Not on filedocumented in this encounter Care Teams Yarn Sizer Relationship Specialty Start Date End Date Jason Cervantes MD [address] [facility] [place] [address] PCP - General 05/07/22 documented as of this encounter
--- OUTSIDE RECORDS SUMMARY | 2025-04-21 07:51 | XMS_ITS | Encounter Summary ---
Author Organization [facility] Address [address] [place] [address] Phone Care Team Providers Care Fur Blowing Machine Operator Name Role Phone Jason Cervantes MD Primary Care Provider [phone] Encounter Details Date Type Department Care Team (Late st Contact Info) Description 09/26/2020 Orders Only [facility] [address] [place] [address] Conversion, Onbase Social History Tobacco Use Types [...] r Schedule OUTSIDE LAB SCAN Lab Ordered: 09/26/2020 OUTSIDE LAB SCAN Lab Ordered: 09/26/2020 documented as of this encounter Visit Diagnoses Not on filedocumented in this encounter Care Teams Fur Blowing Machine Operator Relationship Specialty Start Date End Date Jason Cervantes MD [address], [place] [phone] PCP - General 05/07/22 documented as of this encounter
--- OUTSIDE RECORDS SUMMARY | 2025-04-21 07:51 | XMS_ITS | Referral Summary ---
Author Organization [facility] Address [address] [place] [address] Care Team Providers Care Feeder Driver Name Role Phone Jason Cervantes MD Primary Care Provider [phone] Encounters Date Type Department Care Team Description 03/04/2025 9:00 AM EDT Office Visit [facility] at [facility] [address] [place] [address] Marquis Irene MD Coronary arteriosclerosis (Primary Dx); Paroxysmal atrial fibrillation (CMS/HCC); Benign essential hypertension; Pure hypercholesterolemia; Gastroesophageal reflux disease, unspecified whether esophagitis present; BMI 38.0-38.9,adult; Class 3 obesity from Last 3 Months Allergies Active Allergy Reactions Criticality Noted Date Comments Amoxicillin Hives,Rash Low 09/26/2020 Tramadol Other 05/10/2024 Medications chlorthalidone (Hygroton) 25 mg tablet TAKE 1 TABLET BY MOUTH EVERY MORNING WITH FOOD FOR 90 DAYS 09/26/2020 Active rosuvastatin (Crestor) 20 mg tablet Take 20 mg by mouth. 05/30/2023 Active aspirin (Vazalore) 81 mg capsule Take by mouth. Active gabapentin (Neurontin) 300 mg capsule Take 300 mg by mouth twice a day. 05/27/2023 Active apixaban (Eliquis) 5 mg tablet 5 mg. 05/08/2024 Active metoprolol tartrate (Lopressor) 25 mg tablet Take 25 mg by mouth two times daily. 05/08/2024 Active potassium chloride CR (K-Tab) 20 mEq ER tablet Take 20 mEq by mouth two times daily. 05/08/2024 Active pantoprazole (ProtoNix) 40 mg EC tablet Take 40 mg by mouth in the morning. 12/27/2024 Active HYDROcodone-sunshine taminophen ([place]) 5-325 mg tablet Take 1 tablet by mouth every 4 (four) hours if needed for severe pain (8-10 pain score). 02/17/2025 Active Active Problems Problem Noted Date Diagnosed Date Benign essential hypertension 03/04/2025 Chest pain due to GERD 03/04/2025 Chronic low back pain 03/04/2025 BMI 38.0-38.9,adult 03/04/2025 Coronary arteriosclerosis 03/04/2025 Diverticulosis 03/04/2025 Erectile dysfunction 03/04/2025 Family history of colonic polyps 03/04/2025 Fundic gland polyps of stomach, benign Gastroesophageal reflux disease 03/04/2025 Migraine 03/04/2025 Sigmoid diverticulosis 03/04/2025 Internal derangement of left knee 07/19/2024 Need for crutch training 07/19/2024 Hyperlipidemia 05/28/2024 Atrial fibrillation 05/07/2024 Displacement of lumbar inter vertebral disc without myelopathy 07/01/2023 Lumbar radiculopathy 06/02/2023 Resolved Problems Problem Noted Date Diagnosed Date Resolved Date Class 3 obesity 03/04/2025 03/04/2025 Social History Tobacco Use Types Packs/Day Years Used Date Smoking Tobacco: Never Smokeless Tobacco: Never Tobacco Cessation:Counseling Given: Not Answered Alcohol Use Standard Drinks/Week Comments Yes 0 (1 standard drink = 0.6 oz pur e alcohol) occ Sex and Gender Information Value Date Recorded Sex Assigned at Not on file Legal Sex Male 9:12 AM EDT Gender Identity Not on file Sexual Orientation Not on file Last Filed Vital Signs Vital Sign Reading Time Taken Comments Blood Pressure 108/74 03/04/2025 8:58 AM EDT Pulse 57 03/04/2025 8:58 AM EDT Temperature - - Respiratory Rate 16 06/11/2024 9:42 AM EDT Oxygen Saturation 97% 03/04/2025 8:58 AM EDT Inhaled Oxygen Concentration - - Weight 117 kg (257 lb) 03/04/2025 8:58 AM EDT Height 182.9 cm (6') 03/04/2025 8:58 AM EDT Body Mass Index 34.86 03/04/2025 8:58 AM EDT Plan of Treatment Not on file Insurance [employer] Care Teams Feeder Driver Relationship Specialty Start Date End Date Jason Cervantes MD [address] [facility] [address] [address] PCP - General 09/09/24
--- OUTSIDE RECORDS SUMMARY | 2025-04-21 07:51 | XMS_ITS | Clinical Summary ---
Author Organization [facility] Address [address] [place] [address] Care Team Providers Care Financial Aid Counselor Name Role Phone Jason Cervantes MD Primary Care Provider [phone] Allergies Active Allergy Reactions Criticality Noted Date [...] in the morning. 12/27/2024 Active HYDROcodone-sunshine taminophen ([place]) 5-325 mg tablet Take 1 tablet by [...] Resolved Date Class 3 obesity 03/04/2025 03/04/2025 Encounters Date Type Department Care Team Description 03/04/2025 9:00 AM EDT Office Visit [facility] Heart at [address] [address] Marquis Irene MD Coronary arteriosclerosis (Primary Dx); Paroxysmal atrial fibrillation (CMS/HCC); Benign essential hypertension; Pure hypercholesterolemia; Gastroesophageal reflux disease, unspecified whether esophagitis present; BMI 38.0-38.9,adult; Class 3 obesity from Last 3 Months Family History Medical History Relation Name Comments Stroke Father Brain Aneurysm Mother Heart attack Sister Relation Name Status Comments Father Mother Sister Social History Tobacco Use Types Packs/Day Years [...] 03/04/2025 8:58 AM EDT Plan of Treatment Health Maintenance Due Date Last Done Comments CT Colonography 1961 FIT-DNA 1961 FIT 1961 FOBT 1961 Sigmoidoscopy 1961 Depression Screening 1973 Adult Tetanus 1983 COVID-19 Vaccine ( season) 2024 09/03/2024, 09/12/2023, 10/14/2022, Additional history exists Colonoscopy 08/25/2034 08/25/2024, 07/02/2019 Colorectal Cancer Screening 08/25/2034 Zoster Vaccines Completed 03/22/2022, 08/25/2021 Influenza Vaccine Completed 09/03/2024, , 10/03/2022, Additional history exists Pneumococcal Vaccine: Pediatrics (0 to 5 Years) and At-Risk Patients (6 to 64 Years) Completed 09/03/2024 HIB Vaccines Aged Out No longer eligi ble based on patient's age to complete this topic HPV Vaccines Aged Out No longer eligi ble based on patient's age to complete this topic IPV Vaccines Aged Out No longer eligi ble based on patient's age to complete this topic Meningococcal B Vaccine Aged Out No l onger eligible based on patient's age to complete this topic Meningococcal Vaccine Aged Out No doug paz eligible based on patient's age to complete this topic Rotavirus Vaccines Aged Out No longer eligible based on patient's age to complete this topic Insurance [employer] Care Teams Financial Aid Counselor Relationship Specialty Start Date End Date Jason Cervantes MD [address] [facility] [place] [address] [address] PCP - General 09/09/24
--- OUTSIDE RECORDS SUMMARY | 2025-04-21 07:51 | XMS_ITS | Encounter Summary ---
Author Organization [facility] Address [address] [place] [address] Care Team Providers Care Billing Administrator Name Role Phone Jason Cervantes MD Primary Care Provider [phone] Encounter Details Date Type Department Care Team (Latest Contact Info) Description 04/20/2025 Travel Social History Tobacco Use Types Packs/Day Years [...] AM EDT documented as of this encounter Plan of Treatment Upcoming Encounters Date Type Department Care Team (Late st Contact Info) Description 06/17/2025 9:00 AM EDT Office Visit [facility] [address] [place] [address] Justen Cuellar PA [address] [facility] [address] [place] [address] 07/14/2025 9:00 AM EDT Office Visit [facility] [address] [facility] [address] [place] [address] Justen Cuellar, PA [address] [facility] [address] [place] [address] documented as of this encounter Visit Diagnoses Not on filedocumented in this encounter Care Teams Billing Administrator Relationship Specialty Start Date End Date Jason Cervantes MD PCP - General 05/05/24 documented as of this encounter
--- OUTSIDE RECORDS SUMMARY | 2025-04-21 07:51 | XMS_ITS | Encounter Summary ---
Author Organization [facility] Address [address] [place] [address] Care Team Providers Care Patch Setter Name Role Phone Jason Cervantes MD Primary Care Provider [phone] Encounter Details Date Type Department Care Team (Latest Contact Info) Description 04/17/2025 Travel Social History Tobacco Use Types Packs/Day [...] Office Visit [facility] [address] [place] [address] Justen Cuellar PA [address] [facility] [address] [place] [address] 07/14/2025 9:00 AM EDT Office Visit [facility] [address] [facility] [address] [place] [address] Justen Cuellar, PA [address] [facility] [address] [place] [address] documented as of this encounter Visit Diagnoses Not on filedocumented in this encounter Care Teams Patch Setter Relationship Specialty Start Date End Date Jason Cervantes MD PCP - General 05/05/24 documented as of this encounter
--- OUTSIDE RECORDS SUMMARY | 2025-04-21 07:51 | XMS_ITS | Encounter Summary ---
Author Organization [facility] Address [address] [facility] [place] [address] Care Team Providers Care Outpatient Case Manager Name Role Phone Jason Cervantes MD Primary Care Provider [phone] Encounter Details Date Type Department Care Team (Late st Contact Info) Description 04/20/2025 Bamboo flowsheet [facility] [address] [facility] [address] [place] [address] Jr. Landon Thomas DO [address] [place] [address] [place] [address] Social History Tobacco Use Types Packs/Day Years [...] EDT Office Visit [facility] [address] [place] [address] Justen Cuellar, PA [address] [place] [address] [place] [address] 07/14/2025 9:00 AM EDT Office Visit [facility] [address] [facility] [address] [place] [address] Justen Cuellar PA [address] [facility] [address] [place] [address] documented as of this encounter Visit Diagnoses Not on filedocumented in this encounter Care Teams Outpatient Case Manager Relationship Specialty Start Date End Date Jason Cervantes MD PCP - General 05/05/24 documented as of this encounter
--- OUTSIDE RECORDS SUMMARY | 2025-04-21 07:51 | XMS_ITS | Clinical Summary ---
Author Organization [facility] Address [address] [place] [address] Care Team Providers Care Well Drill Operator Rotary Drill Name Role Phone Jason Cervantes MD Primary Care Provider [phone] Allergies Active Allergy Reactions Criticality Noted Date Comments Amoxicillin Hives,Rash Low 09/26/2020 Tramadol Unknown 05/10/2024 Medications Eliquis 5 MG tablet 5 mg 05/08/2024 Active aspirin (Vazalore) 81 MG capsule Take by mouth Active chlorthalidone (Hygroton) 25 MG tablet TAKE 1 TABLET BY MOUTH EVERY MORNING WITH FOOD FOR 90 DAYS Active Diclofenac 35 MG capsule Active gabapentin (Neurontin) 300 MG capsule Take 300 mg by mouth in the morning and 300 mg in the evening. 05/27/2023 Active metoprolol tartrate (Lopressor) 25 MG tablet 05/08/2024 Active potassium chloride CR (K-Tab) 20 MEQ ER tablet 05/08/2024 Active rosuvastatin (Crestor) 20 MG tablet Take 20 mg by mouth at bedtime Active pantoprazole (ProtoNix) 40 MG EC tablet Take 40 mg by mouth in the morning. Take before meals. Do not crush, chew, or split.. Active sucralfate (Carafate) 1 g tablet Take by mouth 4 (four) times a day before meals Active Active Problems Problem Noted Date Diagnosed Date Internal derangement of left knee 07/19/2024 Need for crutch training 07/19/2024 Encounters Date Type Department Care Team Description 04/20/2025 8:30 AM EDT Office Visit [facility] [address] [place] [address] [place] [address] Jr. Landon Thomas, DO Acute pain of left knee (Primary Dx); Arthritis of left knee 04/20/2025 Bamboo flowsheet [facility] [address] [facility] [address] [place] [address] Jr. Landon Thomas, DO 04/20/2025 Travel 04/17/2025 Travel 03/17/2025 Telephone [facility] [address] [facility] 150 [place] [address] Justen Cuellar PA 02/18/2025 9:00 AM EDT Office Visit [facility] [address] [place] [address] Justen Cuellar PA Acute pain of left knee (Primary Dx); Arthritis of left knee; Knee instability, left 02/18/2025 Travel 02/11/2025 Travel from Last 3 Months Family History Medical History Relation Name Comments Brain Aneurysm Mother Relation Name Status Comments Father Mother Social History Tobacco Use Types Packs/Day Years [...] Orientation Straight 05/05/2024 8: 36 AM EDT Last Filed Vital Signs Vital Sign Reading Time Taken Comments Blood Pressure 136/86 06/11/2021 12:00 PM EDT Pulse - - Temperature - - Respiratory Rate - - Oxygen Saturation - - Inhaled Oxygen Concentration - - Weight 123 kg (271 lb 9.6 oz) 07/08/2024 9:47 AM EDT Height 182.9 cm (6') 07/08/2024 9:47 AM EDT Body Mass Index 36.84 07/08/2024 9:47 AM EDT Plan of Treatment Upcoming Encounters Date Type Department Care Team (Late st Contact Info) Description 06/17/2025 9:00 AM EDT Office Visit [facility] [address] [facility] [address] Justen Cuellar PA [address] [facility] 150 [place] [address] 07/14/2025 9:00 AM EDT Office Visit [facility] [address] [place] [address] [place] [address] Justen Cuellar PA 112 [facility] [address] [place] [address] Health Maintenance Due Date Last Done Comments CT Colonography 1961 FIT-DNA 1961 FIT 1961 FOBT 1961 Sigmoidoscopy 1961 Colonoscopy 08/25/2034 08/25/2024, 07/02/2019, 03/2019 Colorectal Cancer Screening 08/25/2034 Influenza Vaccine Completed 09/03/2024, , 10/03/2022, Additional history exists Procedures Procedure Name Priority Date/Time Associated Diagnosis Comments IA ARTHROCENTESIS ASPIR&/INJ MAJOR JT/BURSA W/O US Routine 02/18/2025 9:07 AM EDT Arthritis of left knee COLONOSCOPY Routine 07/02/2019 12:00 PM EDT from Last 3 Months or Most Recently Relevant to Health Maintenance Results * IA ARTHROCENTESIS ASPIR&/INJ MAJOR JT/BURSA W/O US (02/18/2025 9:07 AM EDT) Narrative Justen Cuellar PA - 02/18/2025 9:07 AM EDT ANKITA [place]ap[place] 02/18/2025 9:15 AM L Inj/Asp: L knee on 02/18/2025 9:07 AM Indications: pain Details: 22 G needle, anterolateral approach Medications: 40 mg methylPREDNISolone acetate 40 MG/ML; 2 mL bupivacaine PF 0.5 % Outcome: tolerated well, no immediate complications UTILIZING ASEPTIC TECHNIQUE PT GIVEN INJECTION IN LEFT KNEE, NEUROVASC INTACT S/P INJ, TOLERATED WELL Procedure, treatment alternatives, risks and benefits explained, specific risks discussed. Consent was given by the patient. Patient was prepped and draped in the usual sterile fashion. us Justen LUCIANO IN CLINIC/BEDSIDE ORDERABLES Final Result * Colonoscopy (07/02/2019 12:00 PM EDT) Anatomical Region Laterality Modality Endoscopy 07/02/2019 12:0 0 PM EDT Narrative 07/02/2019 12:00 PM EDT PERFORMED AT [facility] LOCATION:[id number] Procedure Note CONVERSION, GENERIC - 03/12/2023 PERFORMED AT [facility] LOCATION:[id number] Severiano Allison MD ENDOSCOPY PROCEDURE ORDERABL ES Final Result from Last 3 Months or Most Recently Relevant to Health Maintenance Insurance [employer] Care Teams Well Drill Operator Rotary Drill Relationship Specialty Start Date End Date Jason Cervantes MD PCP - General 05/05/24
--- OUTSIDE RECORDS SUMMARY | 2025-04-21 07:51 | XMS_ITS | Encounter Summary ---
Author Organization [facility] Address [address] [place] [address] Phone Care Team Providers Care Theater Teacher Name Role Phone Jason Cervantes MD Primary Care Provider [phone] Encounter Details Date Type Department Care Team (Late st Contact Info) Description 12/20/2021 Orders Only [facility] [address] [place] [address] Conversion, Onbase Social History Tobacco Use Types [...] r Schedule OUTSIDE LAB SCAN Lab Ordered: 12/20/2021 documented as of this encounter Visit Diagnoses Not on filedocumented in this encounter Care Teams Theater Teacher Relationship Specialty Start Date End Date Jason Cervantes MD [address] [facility] [place] [address] PCP - General 05/07/22 documented as of this encounter
--- OUTSIDE RECORDS SUMMARY | 2025-04-21 07:51 | XMS_ITS | Clinical Summary ---
Author Organization [facility] Address [address] [place] [id number] Care Team Providers Care Sustainable Agriculture Specialist Name Role Phone Jason Cervantes MD Unavailable [phone] Jason Cervantes MD Primary Care Provider [phone] Allergies Active Allergy Reactions Criticality Noted Date Comments Amoxicillin Hives,Rash 09/26/2020 Medications gabapentin (NEURONTIN) 300 mg capsule Take 300 mg by mouth twice daily. 05/27/2023 Active HYDROcodone-sunshine taminophen (NORCO) 5-325 mg per tablet Take 1 tablet by mouth every 6 hours as needed. 05/02/2023 Active omeprazole (PRILOSEC) 40 mg capsule 04/29/2023 Active rosuvastatin (CRESTOR) 20 mg tablet 05/30/2023 Active clotrimazole-be tamethasone (LOTRISONE) cream APPLY TO BOTH FEET TWICE A DAY 05/13/2023 Active chlorthalidone (HYGROTON) 25 mg tablet TAKE 1 TABLET BY MOUTH EVERY DAY IN THE MORNING WITH FOOD FOR 90 DAYS 04/29/2023 Active aspirin 81 mg cap Take by mouth. 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 07/01/2023 Immunizations Immunization Administration Dates Next Due COVID-19 original vaccine, a ge 12+ yr, monovalent (SulfurCell - PURPLE TOP) 09/03/2021,02/13/2021,01/13/2021,2020 COVID-19 original vaccine, f ull dose, monovalent (MODERNA) 03/22/2022 Social History Tobacco Use Types Packs/Day Years Used Date Smoking Tobacco: Never Smokeless Tobacco: Never Tobacco Cessation:Counseling Given: Not Answered PHQ-2 Answer Date Recorded PHQ-2 score 1 08/01/2023 Area Deprivation Index Answer Date Garret rded National Score (1-100), lower number is lower ri sk 61 06/02/2023 State Score (1-10), lower number is lower risk 4 06/02/2023 Data from: https://www.neighborhoodatlas.medicine.[facility]/. Last address used for calculation [address] 06/02/2023 Sex and Gender Information Value Date Recorded Sex Assigned at Male 07/28/2023 10:39 AM EDT Legal Sex Male 3:29 PM EDT Gender Identity Male 07/28/2023 10:39 AM EDT Sexual Orientation Straight 07/28/2023 10 :39 AM EDT Last Filed Vital Signs Vital Sign Reading Time Taken Comments Blood Pressure 136/85 07/01/2023 9:45 AM EDT Pulse 66 07/01/2023 9:45 AM EDT Temperature 36.3 C (97.4 F) 07/01/2023 8:57 AM EDT Respiratory Rate 16 07/01/2023 9:35 AM EDT Oxygen Saturation 96% 07/01/2023 9:45 AM EDT Inhaled Oxygen Concentration - - Weight 120.2 kg (265 lb) 2023 8:03 AM EDT Height 182.9 cm (6') 2023 8:03 AM EDT Body Mass Index 35.94 2023 8:03 AM EDT Plan of Treatment Health Maintenance Due Date Last Done Comments Anxiety Screening 1979 Depression Screening 1979 HIV Screening 1979 Hepatitis C Screening 1979 DTaP,Tdap,Td Vaccine (1 - Tdap) [address] Colonography 2006 Cologuard (FIT-DNA) 2006 Diabetes Screening 2006 Fecal Occult Blood 2006 Prostate Cancer Screening Discussion 2006 Sigmoidoscopy 2006 Pneumococcal Vaccine: 50+ (1 of 1 - PCV) 2011 Shingrix Vaccine (1 of 2) 2011 Colonoscopy 07/02/2020 07/02/2019 Colorectal Cancer Screening 07/02/2020 Covid-19 Vaccine (6 - 2023-2 5 season) 2024 03/22/2022, 09/03/2021, 02/13/2021, Additional history exists Influenza Vaccine (Season Ended) 2025 08/28/2020, 09/25/2016, 08/22/2015 RSV Vaccine (1 - 1-dose 75+ series) 2036 Insurance [employer] Care Teams Sustainable Agriculture Specialist Relationship Specialty Start Date End Date Jason Cervantes MD [address] [place] [address] PCP - General Family Medicine 06/25/23 Jason Cervantes MD [address] [place] [address] Referring Family Medicine 04/24/23
--- OUTSIDE RECORDS SUMMARY | 2025-04-21 07:52 | XMS_ITS | Clinical Summary ---
Author Organization [facility] Address [address] [place] [id number] Phone Care Team Providers Care Business Systems Advisor Name Role Phone Jason Cervantes MD Primary Care Provider [phone] Medications rosuvastatin (Crestor) 20 mg tabletIndication s:Hyperlipidemia , unspecified TAKE 1 TABLET BY MOUTH EVERYDAY AT BEDTIME 90 tablet 3 4 Active Social History Tobacco Use Types Packs/Day Years Used Date Smoking Tobacco: Never Assessed Sex and Gender Information Value Date Recorded Sex Assigned at Not on file Legal Sex Male 4:21 PM EST Gender Identity Not on file Sexual Orientation Not on file Last Filed Vital Signs Vital Sign Reading Time Taken Comments Blood Pressure 132/78 05/13/2023 11:22 AM EDT Pulse 64 05/13/2023 11:22 AM EDT Temperature - - Respiratory Rate - - Oxygen Saturation - - Inhaled Oxygen Concentration - - Weight 121 kg (267 lb) 05/13/2023 11:22 AM EDT Height 182.9 cm (6') 05/13/2023 11:22 AM EDT Body Mass Index 36.21 05/13/2023 11:22 AM EDT Plan of Treatment Health Maintenance Due Date Last Done Comments CT Colonography 1961 Colonoscopy 1961 Colorectal Cancer Screening 1961 FIT-DNA (Cologuard) 1961 FIT 1961 HIV Screening 1961 Lipid Panel 1961 Sigmoidoscopy 1961 Skin Cancer Screening 1961 Yearly Adult Physical 1961 MMR Vaccines (1 of 1 - Stand miranda series) 1962 Hepatitis C Screening 1979 DTaP/Tdap/Td Vaccines (1 - Tdap) 1983 Pneumococcal Vaccine (1 of 1 - PCV) 2011 Zoster Vaccines (1 of 2) 2011 RSV High Risk: (Elderly (60+ ) or Population) (1 - Risk 60-74 years 1-dose series) 2021 COVID-19 Vaccine (2 - 2023-2 5 season) 2024 03/22/2022 Influenza Vaccine (Season Ended) 2025 HIB Vaccines Aged Out No longer eligi ble based on patient's age to complete this topic HPV Vaccines (No Doses Required) Completed Hepatitis A Vaccines Aged Out No long er eligible based on patient's age to complete this topic Hepatitis B Vaccines Aged Out No long er eligible based on patient's age to complete this topic IPV Vaccines Aged Out No longer eligi ble based on patient's age to complete this topic Meningococcal Vaccine Aged Out No doug paz eligible based on patient's age to complete this topic Rotavirus Vaccines Aged Out No longer eligible based on patient's age to complete this topic Care Teams Business Systems Advisor Relationship Specialty Start Date End Date Jason Cervantes MD [address] [facility] [place] [address] PCP - General 05/07/22
--- OUTSIDE RECORDS SUMMARY | 2025-04-21 07:56 | XMS_ITS | CCD ---
Author Organization [facility] Care Team Providers Care Hassock Maker Name Role Phone Unavailable Unavailable DR [...] Care Provider MD Rell Adamson Attending Provider Avi Yepez Primary Care Unavailable Rell Adamson Attending Unavailable Rell Adamson Admitting Unavailable Rell ADAMSON Attending Unavailable Rell ADAMSON Attending Unavailable Rell ADAMSON Attending Unavailable Jam LANDA, Evelyne Bradley Attending Unavailable CAR CUELLAR Attending CAR Ceballos Attending Unavailable CAR CUELLAR Attending Unavailable CAR CUELLAR Referring Unavailable MARIA E PECK Attending Unavailable CAR CUELLAR Attending Lacie THOMAS JR., ELIAS Saucedo Attending Wes THOMAS JR., ELIAS Saucedo Referring Unavaila amy THOMAS JR., ELIAS Saucedo Attending Unavaila RICHARD Valentine Attending Unavailable RICHARD BENITEZ Attending Unavailable CJ MOHAMUD Attending Unavailable Avi Yepez MD Primary Care Provider [phone] Allergies Allergy Classification Reported Allergen(s) Allergy Type Date of Onset Reaction(s) Facility (20 sources) Amoxicillin; Translations: [amoxicillin] Drug Allergy 0 Hives, Rash [facility] (1 source) Amoxicillin Drug Allergy [facility] (1 source) traMADol Drug Allergy [facility] (3 sources) Penicillin; Translations: [penicillin] Drug Allergy Weal (disorder) [facility] (20 sources) traMADol; Translations: [TRAMADOL] Drug Allergy 4 Unknown [facility] (1 source) Amoxicillin Drug Allergy 0 [facility] Repository Medications Current Medications Medication Drug Class(es) Dates Sig (Normalized) Sig (Original) acetaminophen 325 mg / HYDROcodone bitartrate 5 mg oral tablet (14 sources) Opioid Agonist Start: 07-08-2024 take 1 tablet by mouth twice daily as needed for pain Winona 325 mg-5 mg oral tablet 1 tab(s), Oral, BID as needed for pain, Refill(s) 0 Start Date: 07/08/24 Status: Ordered Start: 03-29-2024 End: 06-21-2024 take 1 tablet by mouth every twelve hours HYDROcodone-acetaminophen (Winona) 5-325 MG tablet Take 1 tablet by mouth every 12 (twelve) hours 03/29/2024 06/21/2024 Discontinued (Therapy completed) Start: 09-26-2020 End: 07-31-2024 take 1 tablet by mouth every six hours for pain HYDROcodone-acetaminophen (Winona) 5-325 MG tablet Indications: Post-op pain Take 1 tablet by mouth every 6 (six) hours if needed for severe pain for up to 3 days 12 tablet 07/28/2024 07/31/2024 Active Winona 5-325 MG T ABS TAKE 1 TABLET EVERY 4 TO 6 HOURS NEEDED. Quantity: 0 Refills: 0 Ordered: 13-May-2023 DO Active Comment on above: Take 1 tablet by zainab th every 6 hours as needed. apixaban 5 mg oral tablet (20 sources) Factor Xa Inhibitor Start: 05-08-2024 Eliquis 5 MG tablet 5 mg 05/08/2024 Active ascorbic acid 1000 mg oral tablet (2 [...] 90 DAYS diclofenac 35 mg oral capsule (20 sources) Nonsteroidal Anti-inflammatory Drug Diclofenac 35 MG [...] Agent Start: take 1 capsule by mouth in the [...] daily. metoprolol tartrate 25 mg oral tablet (20 sources) beta-Adrenergic Pina Start: metoprolol tartrate (Lopressor) 25 MG tablet 05/08/2024 Active Multivitamin preparation (2 sources) Start: take 1 [...] pantoprazole 40 mg delayed release oral tablet (20 sources) Proton Pump Inhibitor take 1 tablet by mouth before mealtime pantoprazole (ProtoNix) 40 MG EC tablet Take 40 mg by mouth in the morning. Take before meals. Do not crush, chew, or split.. Active potassium chloride 20 meq extended release oral tablet (20 sources) Start: potassium chloride CR (K-Tab) 20 [...] 08/16/2024 Discontinued sucralfate 1000 mg oral tablet (20 sources) Aluminum Complex sucralfate (Carafate) 1 g tablet Take by mouth 4 (four) times a day before meals Active Completed/Discontinued Medications Medication Drug Class(es) Dates Sig (Normalized) Sig (Original) betamethasone 0.5 mg/ml / clotrimazole 10 mg/ml topical cream (5 sources) Azole Antifungal, Corticosteroid Start: 05-13-2023 clotrimazole-beta methasone (LOTRISONE) cream APPLY TO BOTH FEET TWICE A DAY 0 05/13/2023 Active Comment on above: APPLY TO BOTH FEET T WICE A DAY 5 ml bupivacaine hydrochloride 5 mg/ml injection (4 sources) Amide Local Anesthetic Start: 02-18-2025 End: 02-18-2025 bupivacaine PF (Marcaine) 0.5 % injection 2 mL Start: 02-18-2025 End: 02-18-2025 2 mL, Injection, Once PRN Pr ocedure, Starting on Fri02/18/25 at 0907, For 1 dose famotidine 40 mg oral tablet (4 sources) Histamine-2 Receptor Antagonist take 1 tablet by mouth at bedtime Famotidine 40 MG Oral Tablet TAKE 1 TABLET AT BEDTIME. Quantity: 30 Refills: 1 Ordered: 07-May-2022 DO Active 1 ml methylPREDNISolone acetate 40 mg/ml injection (4 sources) Corticosteroid Start: 2024 End: 2024 methylPREDNISolone acetate (DEPO-Medrol) injection 40 mg Start: 02-18-2025 End: 02-18-2025 40 mg, Intra-articular, Once PRN Procedure, Starting on Fri02/18/25 at 0907, For 1 dose Problems Active Problems Problem Classification Problem Date Documented Date Episodic/Chronic Abdominal hernia (1 source) Diaphragmatic hernia; Translations: [Diaphragmatic hernia without obstruction or gangrene] Onset: 09-08-2024 Episodic Cardiac dysrhythmias (6 sources) Atrial fibrillation; Translations: [Paroxysmal atrial fibrillation] Onset: 05-07-2024 07-08-2024 Chronic Coronary atherosclerosis and other heart disease (8 sources) Coronary arteriosclerosis; Translations: [Coronary atherosclerosis of unspecified type of vessel, [place] or graft] Onset: 03-04-2025 07-08-2024 Chronic Diabetes mellitus without complication (1 source) Other abnormal glucose; Translations: [OTHER ABNORMAL GLUCOSE] Onset: 12-21-2021 Episodic Disorders of lipid metabolism (9 sources) Hyperlipidemia; Translations: [Other and unspecified hyperlipidemia] Onset: 05-28-2024 07-08-2024 Chronic Diverticulosis and diverticulitis (4 sources) Diverticular disease; Translations: [Diverticula of intestine] Onset: 09-08-2024 07-08-2024 Chronic Esophageal disorders (12 sources) Gastroesophageal reflux disease; Translations: [Esophageal reflux] Onset: 07-20-2024 Chronic Essential hypertension (8 sources) Benign essential hypertension; Translations: [Benign essential hypertension] Onset: 03-04-2025 07-08-2024 Chronic Headache; including migraine (2 sources) Migraine 07-08-2024 Chronic Joint disorders and dislocations; trauma-related (18 sources) Derangement of left knee; Translations: [Unspecified internal derangement of left knee] Onset: 07-19-2024 07-19-2024 Chronic Nonspecific chest pain (3 sources) Chest pain; Translations: [Chest pain, unspecified] Onset: 07-20-2024 Episodic Osteoarthritis (6 sources) Arthritis of left knee; Translations: [Unilateral primary osteoarthritis, left knee] 02-17-2025 Chronic Other and unspecified benign neoplasm (1 source) [...] [Other acute postprocedural pain] 07-28-2024 Episodic Other non-traumatic joint disorders (4 sources) Pain in left knee; Translations: [Pain in joint, lower leg] 02-17-2025 Episodic Other non-traumatic joint disorders (2 sources) Instability of joint of left knee; Translations: [Other instability, left knee] 02-18-2025 Episodic Other nutritional; endocrine; and metabolic disorders (4 sources) Obesity; Translations: [Obesity, unspecified] Chronic Other nutritional; endocrine; and metabolic disorders (2 sources) Body mass index 30+ - obesity 07-20-2024 Chronic Other nutritional; endocrine; and metabolic disorders (2 sources) Obese class III 07-08-2024 Chronic Other nutritional; endocrine; and metabolic disorders (2 sources) Body mass index (BMI) 38.0-38.9, adult; Translations: [Body mass index (BMI) 38.0-38.9, adult] Onset: 03-04-2025 Chronic Other screening for suspected conditions (not [...] low back pain without sciatica] Onset: 2023 Unclassified (1 source) Obesity, class 3; Translations: [Obesity, class 3] Onset: 03-04-2025 Past or Other Problems Problem Classification Problem Date Documented Da te Episodic/Chronic Immunizations and screening for infectious disease (18 sources) Patient encounter status; Translations: [Other specified vaccination] Onset: 07-19-2024 07-19-2024 Episodic Unclassified (5 sources) Never smoked tobacco; Translations: [Never a smoker] Unclassified (1 source) Obesity, class 3; Translations: [Obesity, class 3] Onset: 03-04-2025 Results Test Name Value Interpretation Reference Range Facility Office Visiton 03-04-2025 Follow-up visit [id number] Kim Nichols 1960 M Date Provider Department Center 03/04/2025 [id number] MOHAMUD [facility] Family History Problem Relation Age of Onset Brain Aneurysm Mother Stroke Father Heart attack Sister Family Status - Relation Status Age at Mother Father Sister Level of Service:46257 [place] OFFICE/OUTPATIENT ESTABLISHED LOW [facility] 20 MIN Reason for Visit and Comments: Coronary Artery Disease [187] - Denies SOB. Atrial Fibrillation [80] - On Eliquis, denies bleeding. Denies palpitations and syncope. Hyperlipidemia [182] - Had lipid panel in May 2024. On rosuvastatin. Hypertension [761522] Chest Pain [746949] - Intermittent, blames his hiatal hernia and back pain. Normal [facility] No Panel Informationon 02-18 ANKITA Stapleton 02/18/2025 9:15 AM L Inj/Asp: [...] and draped in the usual sterile fashion. [facility] Office Visiton 09-09-2024 Follow-up visit [id number] Kim Nichols 1960 M Date Provider Department Center 09/09/2024 3848-RICHARD BENITEZ [facility] Family History Problem Relation Age of Onset Brain Aneurysm Mother Stroke Father Heart attack Sister Family Status - Relation Status Age at Mother Father Sister Level of Service:71732 [place] OFFICE/OUTPATIENT ESTABLISHED LOW MDM 20 MIN Normal [facility] Ambulatory Visit Summaryon 1 11-08-2023 Ambulatory Visit Summary Ambulatory Visit Summary KIM NICHOLS :1960 Visit Date:09/08/2024 Ambulatory Visit Instructions Your Care Team Attending Physician - SNWO LANDA, Rell Marr Primary Care Physician - Avi Yepez MD This Is Your Medications List acetaminophen-hydrocodone (Winona 325 mg-5 mg oral tablet) apixaban (Eliquis [...] What How Much When Instructions Unchanged acetaminophen-hydrocodone (Winona 325 mg-5 mg oral tablet) 1 Tablets [...] you for choosing us for your care. Fátima Caban [facility] General Surgery Office/Clini c Noteon 09-08-2024 [...] Tab, 25 mg= 1 tab(s), Oral, BID Winona 325 mg-5 mg oral tablet, 1 tab(s), [...] virus vaccine, inactivated 09/12/2023 Recorded SARS-CoV-2 (COVID-19) [id number] 10/14/2022 Recorded influenza virus vaccine, inactivated 10/03/2022 Recorded SARSCoV2 mRNA(gdwuuboma-osmv-lcfeum) vac 03/22/2022 Recorded SARS-CoV-2 (COVID-19) mRNA BNT-162b2 vax 09/03/2021 Recorded influenza virus vaccine, inactivated 08/25/2021 Recorded SARS-CoV-2 (COVID-19) mRNA BNT-162b2 vax 02/13/2021 Recorded SARS-CoV-2 (COVID-19) mRNA BNT-162b2 vax 01/20/2021 Recorded SARS-CoV-2 (COVID-19) mRNA BNT-162b2 vax 01/13/2021 Recorded SARS-CoV-2 (COVID-19) mRNA BNT-162b2 vax 12/23/2020 Recorded influenza virus vaccine, inactivated 08/28/2020 Recorded Normal [facility] Comment on above: Result Comment: Elec tronically Signed By: SNOW LANDA, Rell Mccormick\Date and Time Signed: 09/08/24 16:32 EST Reminderson 08-26-2024 Reminders Reminders From: María Ayala LPN To: GSN - Clinical; Sent: 08/26/2024 11:53:39 EDT Show up: 07/26/2034 07:00:00 EDT Subject: colonoscopy recall Due Date/Time: 08/25/2034 07:00:00 EDT Reminder/Recall Patient due for screening colonoscopy 08/25/2034. Normal [facility] Pathology Request for Lab Co rpon 08-25-2024 Pathology Request for Lab Le [facility] Comment on above: Order Comment: PATHO LOGY GI SPECIMEN Result Comment: See report. Scanned copy available in EMR. PERFORMED BY: [place] [address] PATHOLOGIST DRUG REGULATORY AFFAIRS SPECIALIST MICHAEL LEMUS M.D. Performed By: #### P ATH TO [facility] #### [address] Ambulatory Visit Summaryon 0 07-20-2024 Ambulatory [...] prescribing physician if questions or concerns acetaminophen-hydrocodone (Winona 325 mg-5 mg oral tablet) apixaban (Eliquis [...] What How Much When Instructions Unchanged acetaminophen-hydrocodone (Winona 325 mg-5 mg oral tablet) 1 Tablets [...] for choosing us for your care. Normal [facility] ALL CBC WITH AUTO DIFFon BASOPHILS ABSOLUTE AUTO 0.0 [facility] Healthcare Basophils/100 WBC (Bld) 0.5 % 0.2 - 2.0 % [facility] Eosinophils/100 WBC (Bld) 3.0 % 0.9 - 7.0 % [facility] Erythrocyte distribution width (RBC) [Ratio] 13.9 % 11.0 - 15.0 % [facility] Hematocrit (Bld) [Volume fraction] 46.2 % 42.0 - 54.0 % [facility] Hemoglobin (Bld) [Mass/Vol] 15.6 g/dL 14.0 - 18.0 g/dL [facility] IMMATURE GRANULOCYTES ABS AUTO 0.03 [facility] Immature granulocytes/100 WBC (Bld) 0.5 % 0.0 - 0.5 % [facility] LYMPHOCYTES ABSOLUTE AUTO 1.4 [facility] Lymphocytes/100 WBC (Bld) 22.3 % 20.5 - 60.0 % [facility] MCH (RBC) [Entitic mass] 28.9 pg 25.9 - 34.0 pg [facility] MCHC (RBC) [Mass/Vol] 33.8 g/dL 29.9 - 35.2 g/dL [facility] MCV (RBC) [Entitic vol] 85.7 fL 80.0 - 94.0 fL [facility] MONOCYTES ABSOLUTE AUTO 0.7 [facility] Monocytes/100 WBC (Bld) 11.6 % 1.7 - 12.0 % [facility] NEUTROPHILS ABSOLUTE AUTO 4.0 [facility] Neutrophils/100 WBC (Bld) 62.1 % 43.0 - 75.0 % [facility] Platelet mean volume (Bld) [Entitic vol] 10.5 fL 9.5 - 13.5 fL [facility] TBH EO # 0.2 [facility]H PLT 246 [facility] TBH RBC 5.39 [facility] TB WBC 6.4 [facility] Office Visiton 06-11-2024 Follow-up visit [id number] Kim Nichols 1960 M Date Provider Department Center 06/11/2024 3848-RICHARD BENITEZ [facility] Family History Problem Relation Age of Onset Brain Aneurysm Mother Stroke Father Heart attack Sister Family Status - Relation Status Age at Mother Father Sister Level of Service:75771 MI OFFICE/OUTPATIENT NEW MODERATE MDM 45 MINUTES Reason for Visit and Comments: New Patient [Other] - CHEST PAIN/AFIB Normal [facility] CNOVon 2023 CNOV Office Visit (SPSLUH ) KIM NICHOLS ([id number]) 1960 M Date Time Provider Department 08/04/23 [...] opioids Medications: See medication reconciliation list in [facility] MEDICATIONS: Gabapentin, Winona, Tylenol Have you ever seen a pain [...] issues. 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 [facility] 07-08-2023 [facility] Telephone (SPNMMN) KIM NICHOLS ([id number]) 1960 M Date Time Provider Department 07/08/23 NIKOLAY CAMP SPNMMN During your visit today, we recorded the following information about you: Stacy Gallagher RN 07/08/2023 12:56 PM Signed Post Spine Injection phone call: [phone] on 07/08/23 Patient denies fever, chills, new [...] appointment 2-4 weeks post procedure by calling [phone] Patient does not have any questions or [...] Status:Closed by STACY GALLAGHER on 07/08/23 Normal [facility] HISTORY PHYSICALon HISTORY PHYSICAL HNO ID: [id number] Author: Sherice Galvin APRN.KIRILL Service: ? Author [...] July 01, 2023 TIME: 9:04 AM Normal [facility] OPERATIVE NOon 07-01-2023 OPERATIVE NO HNO ID: [id number] Author: Nikolay Camp DO Service: Physical Medicine AND Rehabilitation Author Type: Physician Type: Operative Report Filed: 07/01/2023 9:40 AM Note Text: PROCEDURE REPORT Surgery/Procedure Date: July 01, 2023 Interventionalist: Nikolay Camp DO Procedure(s): Left L5 transforaminal epidural steroid injection Pre-Op/Pre-Procedure Diagnosis: Lumbar radiculopathy Post-Op Diagnosis: same SUBJECTIVE: Kim Nichols is a 62 year old male, who presents to the [facility] for a left L5 transforaminal epidural steroid injection. This is his first (1) procedure. He states he is NPO and has a courtesy car driver for return home. Pain is central [...] if any side effects are noted. Kim Sureshluisfayamaya was transferred to the recovery room and is to be discharged home in stable condition. DO Fátima Castrejon [facility] 06-26-2023 [facility] Telephone (SPNMMN) KIM NICHOLS ([id number]) 1960 M Date Time Provider Department 06/26/23 NIKOLAY CAMPMN During your visit today, we recorded the following information about you: Oscar Rollins LPN 06/26/2023 9:20 AM Signed Phoned patient and message left for Kim to confirm appointment for Kim Nichols for spine procedure on 07/01/2023. Patient notified that Iota will call patient the night before with the time to arrive for injection. Patient verbalized understanding of the following: -Provided education on spine procedure and answered questions related to spine injection procedure. -Chief Radiology is needed to drive patient home. -NPO [...] to report. Diabetic: No Patient given number [phone], spine injections schedulers, if there is any [...] Encounter Status:Closed by OSCAR ROLLINS on 06/26/23 [facility] CNOVon 06-02-2023 CNOV Office Visit (SPNSMN ) KIM NICHOLS ([id number]) 1960 M Date Time Provider Department 06/02/23 1:[address] [facility] During your visit today, we recorded the following information about you: Pulse Respiration Blood pressure Weight 63/minute 18/minute 128/84 117 kg Height 1.829 m Darren Elizabeth APRN.BEE RANCHER 06/03/2023 1:01 PM Signed SPINE SURGERY OUTPATIENT [...] with him pain. He also is prescribed Winona for breakthrough pain which he only takes [...] well de (more content not included)... Normal [facility] Office Visit (Cardiology)on 05-13-2023 Follow-up [...] Weight Tips; Status:Complete - Retrospective Authorization; Done: [id number] Some eating tips that can help you lose weight.; Status:Complete - Retrospective Authorization; Done: [id number] Coronary disease, Hyperlipidemia Renew: Aspirin EC Low Dose 81 MG Oral Tablet Delayed Release; TAKE 1 TABLET DAILY DIRECTED Hyperlipidemia Renew: Rosuvastatin Calcium 20 MG Oral Tablet; take 1 tablet by mouth at bedtime SocHx: Never a smoker Tobacco Use Screening; Status:Complete; Done: [id number] Patient Instructions Please bring all medicines, vitamins, [...] MG Oral CapsuleTAKE 1 CAPSULE TWICE DAILY. Winona 5-325 MG TABSTAKE 1 TABLET EVERY 4 [...] negative for complaint. Vitals Vital Signs Recorded: [id number] 11:22AM Heart Rate64, R Radial Ohmralmv600, RUE, Sitting Xqruebkaa03, RUE, Sitting Height6 ft Ormqix962 lb BMI Tyxyxaphqv66.21 kg/m2 BSA Calculated2.41 Tobacco Useb) No PHQ-2 [...] no hep (more content not included)... Normal [employer] Tobacco Screening.on 023 Adult depression screening assessment No [facility] [address] DO Work Phone: Tobacco use status [facility] b) No [facility] [address] DO Work Phone: Tobacco Screening.on 022 Adult depression screening assessment No [facility] [address] DO Work Phone: Fall risk assessment c) Not medically indicated MP-No [facility] DO Work Phone: Tobacco use status [facility] b) No [facility] DO Work Phone: H PYLORI ANTIBODY IGGon 11-28 H. PYLORI IGG ABS 0.45 Index Value Normal 0.00-0.79 T [facility] Comment on above: Result Comment: Nega tive <0.80 Equivocal 0.80 - 0.89 Positive >0.89 Performed By: #### L IPID, TSH, T7, URIC, CMP #### [facility] [address] [place] [address] Dr. Conor Chan INSULINon 12-21-2021 Insulin 55.2 uIU/mL Critically high 2.6-24.9 [facility] Comment on above: Performed By: #### I NSULIN #### [facility] [address] [place] [address] Dr. Conor Chan TESTOSTERONE, TOTALon 2021 Testosterone [Mass/Vol] 380 ng/dL Normal 264-916 [facility] Comment on above: Result Comment: Adul t male reference interval is based on a population of healthy nonobese males (BMI <30) between 19 and 39 years old. Travon, et.al. JCEM 2017,102;9075-4294. PMID: [id number]. Performed By: #### L IPID, TSH, T7, URIC, CMP #### [facility] [address] [place] [address] Dr. Conor Chan CBC AUTO DIFFon 12-20-2021 BASO # 0.0 103/ul Normal 0.0-0.1 [facility] Comment on above: Performed By: #### C BC #### [facility] [address] [place] [address] Dr. Conor Chan Basophils/100 WBC (Bld) 0.5 % Normal 0.2-2.0 [facility] Comment on above: Performed By: #### C BC #### [facility] [address] [place] [address] Dr. Conor Chan EO # 0.2 103/ul Normal 0.0-0.7 [facility] Comment on above: Performed By: #### C BC #### [facility] [address] [place] [address] Dr. Conor Chan Eosinophils/100 WBC (Bld) 3.5 % Normal 0.9-7.0 [facility] Comment on above: Performed By: #### C BC #### [facility] [address] [place] [address] Dr. Conor Chan Erythrocyte distribution width (RBC) [Ratio] 13.8 % Normal 11.0-15.0 [facility] Comment on above: Performed By: #### C BC #### [facility] [address] [place] [address] Dr. Conor Chan Hematocrit (Bld) [Volume fraction] 48.5 % Normal 42.0-54.0 [facility] Comment on above: Performed By: #### C BC #### [facility] [address] [place] [address] Dr. Conor Chan Hemoglobin (Bld) [Mass/Vol] 16.3 g/dL Normal 14.0-18.0 [facility] Comment on above: Performed By: #### C BC #### [facility] [address] [place] [address] Dr. Conor Chan IG # 0.02 10e3/ul Normal 0.00-0.03 [facility] Comment on above: Performed By: #### C BC #### [facility] [address] [place] [address] Dr. Conor Chan IG % 0.3 % Normal 0.0-0.5 [facility] Comment on above: Performed By: #### C BC #### [facility] [address] [place] [address] Dr. Conor Chan LYMPH # 1.4 103/ul Normal 1.2-3.8 [facility] Comment on above: Performed By: #### C BC #### [facility] [address] [place] [address] Dr. Conor Chan Lymphocytes/100 WBC (Bld) 21.7 % Normal 20.5-60.0 [facility] Comment on above: Performed By: #### C BC #### [facility] [address] [place] [address] Dr. Conor Chan MANUAL DIFF REQ NO Normal [facility] Comment on above: Performed By: #### C BC #### [facility] [address] [place] [address] Dr. Conor Chan MCH (RBC) [Entitic mass] 28.5 pg Normal 25.9-34.0 [facility] Comment on above: Performed By: #### C BC #### [facility] [address] [place] [address] Dr. Conor Chan MCHC (RBC) [Mass/Vol] 33.6 g/dL Normal 29.9-35.2 [facility] Comment on above: Performed By: #### C BC #### [facility] [address] [place] [address] Dr. Conor Chan MCV (RBC) [Entitic vol] 84.9 fL Normal 80.0-94.0 [facility] Comment on above: Performed By: #### C BC #### [facility] [address] [place] [address] Dr. Conor Chan MONO # 0.6 103/ul Normal 0.3-0.8 [facility] Comment on above: Performed By: #### C BC #### [facility] Laboratory [address] [place] [address] Dr. Conor Chan Monocytes/100 WBC (Bld) 9.3 % Normal 1.7-12.0 [facility] Comment on above: Performed By: #### C BC #### [facility] [address] [place] [address] Dr. Conor Chan NEUT # 4.1 103/ul Normal 1.4-6.5 [facility] Comment on above: Performed By: #### C BC #### [facility] [address] [place] [address] Dr. Conor Chan Neutrophils/100 WBC (Bld) 64.7 % Normal 43.0-75.0 [facility] Comment on above: Performed By: #### C BC #### [facility] [address] [address] [address] Conor Chan Platelet mean volume (Bld) [Entitic vol] 9.8 fL Normal 9.5-13.5 [facility] Comment on above: Performed By: #### C BC #### [facility] [address] [place] [address] Dr. Conor Chan PLT 235 103/ul Normal 150-450 [facility] Comment on above: Performed By: #### C BC #### [facility] [address] [place] [address] Dr. Conor Chan RBC 5.71 106/ul Normal 4.70-6.10 [facility] Comment on above: Performed By: #### C BC #### [facility] [address] [place] [address] Dr. Conor Chan WBC 6.4 103/ul Normal 4.0-11.0 [facility] Comment on above: Performed By: #### C BC #### [facility] [address] [place] [address] Dr. Conor Chan FREE THYROXINE INDEX T7on FTI 2.89 Normal [facility] Comment on above: Performed By: #### L IPID, TSH, T7, URIC, CMP #### [facility] [address] [place] [address] Dr. Conor Chan T3U 34.0 % Normal 23.5-40.5 [facility] Comment on above: Performed By: #### L IPID, TSH, T7, URIC, CMP #### [facility] [address] [place] [address] Dr. Conor Chan T4 [Mass/Vol] 8.50 ug/dL Normal 5.53-11.00 [facility] Comment on above: Performed By: #### L IPID, TSH, T7, URIC, CMP #### [facility] [address] [place] [address] Dr. Conor Chan GLYCOHEMOGLOBIN A1Con 2021 ADA RECOMMENDATION ADA THERAPEUTIC TARG ET 6.0 - 7.0 ACTION SUGGESTED > 7.0 Normal [facility] Comment on above: Performed By: #### A 1C #### [facility] [address] [address] [address] Conor Chan Glucose [Mass/Vol] 126 mg/dL Normal [facility] Comment on above: Performed By: #### A 1C #### [facility] [address] [place] [address] Dr. Conor Chan HbA1c (Bld) [Mass fraction] 6.0 % Normal <=6.0 [facility] Comment on above: Performed By: #### A 1C #### [facility] [address] [place] [address] Dr. Conor Chan LIPID PROFILEon 12-20-2021 CHOL-HDL RATIO NORM SEE BELOW Normal [facility] Comment on above: Result Comment: 3.3 - 4.4 LOW RISK 4.4 - 7.1 AVERAGE RISK 7.1 - 11.0 MODERATE RISK >11.0 HIGH RISK Performed By: #### L IPID, TSH, T7, URIC, CMP #### [facility] [address] [place] [address] Dr. Conor Chan Cholesterol [Mass/Vol] 161 mg/dL Normal <=200 [facility] Comment on above: Performed By: #### L IPID, TSH, T7, URIC, CMP #### [facility] [address] [place] [address] Dr. Conor Chan Cholesterol in HDL [Mass/Vol] 50 mg/dL Normal [facility] Comment on above: Performed By: #### L IPID, TSH, T7, URIC, CMP #### [facility] [address] [place] [address] Dr. Conor Chan Cholesterol in LDL [Mass/Vol] 96.0 mg/dL Normal [facility] Comment on above: Performed By: #### L IPID, TSH, T7, URIC, CMP #### [facility] [address] [place] [address] Dr. Conor Chan Cholesterol.total/ Cholesterol in HDL [Mass ratio] 3.2 {ratio} Normal [facility] Comment on above: Performed By: #### L IPID, TSH, T7, URIC, CMP #### [facility] [address] [address] [address] Conor Chan HDL NORMAL > or = 60 mg/dl - LO W CARDIOVASCULAR RISK <40 mg/dl - HIGH CARDIOVASCULAR RISK Normal [facility] Comment on above: Performed By: #### L IPID, TSH, T7, URIC, CMP #### [facility] [address] [address] [address] Conor Chan LDL CALC NORMAL SEE BELOW Normal [facility] Comment on above: Result Comment: <100 mg/dl OPTIMAL 100 - 129 mg/dl NEAR OR ABOVE OPTIMAL 130 - 159 mg/dl BORDERLINE HIGH 160 - 189 mg/dl HIGH >190 mg/dl VERY HIGH Performed By: #### L IPID, TSH, T7, URIC, CMP #### [facility] [address] [place] [address] Dr. Conor Chan Triglyceride [Mass/Vol] 75 mg/dL Normal <=150 [facility] Comment on above: Performed By: #### L IPID, TSH, T7, URIC, CMP #### [facility] [address] [place] [address] Dr. Conor Chan VLDL CALC 15.0 mg/dL Normal [facility] Comment on above: Performed By: #### L IPID, TSH, T7, URIC, CMP #### [facility] [address] [place] [address] Dr. Conor Chan PROF 14(COMP METB)on 022 Albumin [Mass/Vol] 3.7 g/dL Normal 3.5-5.0 [facility] Comment on above: Performed By: #### L IPID, TSH, T7, URIC, CMP #### [facility] [address] [address] [address] Conor Chan Albumin/Globulin [Mass ratio] 0.9 {ratio} Normal [facility] Comment on above: Performed By: #### L IPID, TSH, T7, URIC, CMP #### [facility] [address] [place] [address] Dr. Conor Chan ALP [Catalytic activity/Vol] 58 U/L Normal 38-126 [facility] Comment on above: Performed By: #### L IPID, TSH, T7, URIC, CMP #### [facility] [address] [place] [address] Dr. Conor Chan ALT [Catalytic activity/Vol] 40 U/L Normal 21-72 [facility] Comment on above: Performed By: #### L IPID, TSH, T7, URIC, CMP #### [facility] [address] [place] [address] Dr. Conor Chan Anion gap [Moles/Vol] 5.5 mmol/L Normal [facility] Comment on above: Performed By: #### L IPID, TSH, T7, URIC, CMP #### [facility] [address] [place] [address] Dr. Conor Chan AST [Catalytic activity/Vol] 18 U/L Normal 17-59 [facility] Comment on above: Performed By: #### L IPID, TSH, T7, URIC, CMP #### [facility] [address] [place] [address] Dr. Conor Chan Bilirubin [Mass/Vol] 0.5 mg/dL Normal 0.2-1.3 [facility] Comment on above: Performed By: #### L IPID, TSH, T7, URIC, CMP #### [facility] [address] [place] [address] Dr. Conor Chan Calcium [Mass/Vol] 9.9 mg/dL Normal 8.4-10.2 [facility] Comment on above: Performed By: #### L IPID, TSH, T7, URIC, CMP #### [facility] [address] [place] [address] Dr. Conor Chan Chloride [Moles/Vol] 97 mmol/L Critically low 98-107 [facility] Comment on above: Performed By: #### L IPID, TSH, T7, URIC, CMP #### [facility] [address] [place] [address] Dr. Conor Chan CO2 [Moles/Vol] 30.7 mmol/L Critically high 22.0-30.0 [facility] Comment on above: Performed By: #### L IPID, TSH, T7, URIC, CMP #### [facility] [address] [place] [address] Dr. Conor Chan Creatinine [Mass/Vol] 1.04 mg/dL Normal 0.66-1.25 [facility] Comment on above: Performed By: #### L IPID, TSH, T7, URIC, CMP #### [facility] [address] [place] [address] Dr. Conor Chan EGFR-AF PERUVIAN >60 Normal >=60 [facility] Comment on above: Performed By: #### L IPID, TSH, T7, URIC, CMP #### [facility] [address] [place] [address] Dr. Conor Chan EGFR-NON AF PERUVIAN >60 Normal >=60 [facility] Comment on above: Performed By: #### L IPID, TSH, T7, URIC, CMP #### [facility] [address] [place] [address] Dr. Conor Chan Globulin (S) [Mass/Vol] 4.2 g/dL Normal [facility] Comment on above: Performed By: #### L IPID, TSH, T7, URIC, CMP #### [facility] [address] [place] [address] Dr. Conor Chan Glucose [Mass/Vol] 122 mg/dL Critically high 74-106 T [facility] Comment on above: Performed By: #### L IPID, TSH, T7, URIC, CMP #### [facility] [address] [place] [address] Dr. Conor Chan Potassium [Moles/Vol] 3.2 mmol/L Critically low 3.4-5.0 [facility] Comment on above: Performed By: #### L IPID, TSH, T7, URIC, CMP #### [facility] [address] [place] [address] Dr. Conor Chan Protein [Mass/Vol] 7.9 g/dL Normal 6.1-8.2 [facility] Comment on above: Performed By: #### L IPID, TSH, T7, URIC, CMP #### [facility] [address] [place] [address] Dr. Conor Chan Sodium [Moles/Vol] 130 mmol/L Critically low 137-145 [facility] Comment on above: Performed By: #### L IPID, TSH, T7, URIC, CMP #### [facility] [address] [place] [address] Dr. Conor Chan Urea nitrogen [Mass/Vol] 15.0 mg/dL Normal 9.0-20.0 [facility] Comment on above: Performed By: #### L IPID, TSH, T7, URIC, CMP #### [facility] [address] [place] [address] Dr. Conor Chan Urea nitrogen/Creatinin e [Mass ratio] 14.4 mg/mg Normal [facility] Comment on above: Performed By: #### L IPID, TSH, T7, URIC, CMP #### [facility] [address] [place] [address] Dr. Conor Chan TSHon 12-20-2021 TSH 2.122 uIU/mL Normal 0.470-4.680 [facility] Comment on above: Performed By: #### L IPID, TSH, T7, URIC, CMP #### [facility] [address] [place] [address] Dr. Conor Chan TSH RANGE SEE BELOW Normal [facility] Comment on above: Result Comment: <0.3 4 UIU/ml HYPERTHYROID 0.34-5.60 UIU/ml EUTHYROID >5.60 UIU/ml HYPOTHYROID Performed By: #### L IPID, TSH, T7, URIC, CMP #### [facility] [address] [place] [address] Dr. Conor Chan URIC ACID SERUMon 12-20-2021 Urate [Mass/Vol] 7.3 mg/dL Normal 3.5-8.5 [facility] Comment on above: Performed By: #### L IPID, TSH, T7, URIC, CMP #### [facility] [address] [place] [address] Dr. Conor Chan XR LSPINE MIN 4 [...] FRANCO Date: 2021-12-20 10:06 Normal [facility] Vital Signs Date Time Vital Sign Value Performing Clinician Facility 07-20-2024 13:29-0400 Blood Pressure Location Rell VALENCIAClif [facility] 07-20-2024 13:29-0400 Diastolic blood pressure 78 mm[Hg] Rell ADAMSON [facility] 07-20-2024 13:29-0400 Heart rate 72 /min Rell ADAMSON [facility] 07-20-2024 13:29-0400 Respiratory rate 16 /min Rell VALENCIAClif [facility] 07-20-2024 13:29-0400 Systolic blood pressure 116 mm[Hg] Rell ADAMSON [facility] 07-08-2024 09:47-0400 Body height 182.9 cm Car LUCIANO Work Phone: [facility] 07-08-2024 09:47-0400 Body mass index (BMI) [Ratio] 36.84 kg/m2 Car LUCIANO Work Phone: [facility] 07-08-2024 09:47-0400 Body weight 123.2 kg Car LUCIANO Work Phone: [facility] 2023 08:03-0400 Body height 182.9 cm Juan R Ling MD Work Phone: [facility] 2023 08:03-0400 Body weight 120.2 kg Juan R Ling MD Work Phone: [facility] 06-02-2023 13:26-0400 Body height 182.9 cm Darren Elizabeth APRN.BEE RANCHER Work Phone: [facility] 06-02-2023 13:26-0400 Body weight 117.03 kg Darren Elizabeth APRN.KIRILL Work Phone: [facility] 06-02-2023 13:26-0400 Diastolic blood pressure 84 mm[Hg] Darren Elizabeth APRN.KIRILL Work Phone: [facility] 06-02-2023 13:26-0400 Heart rate 63 /min Darren Elizabeth APRN.BEE RANCHER Work Phone: [facility] 06-02-2023 13:26-0400 Respiratory rate 18 /min Darren Elizabeth APRN.KIRILL Work Phone: [facility] 06-02-2023 13:26-0400 SaO2% (BldA) [Mass fraction] 95 % Darren Elizabeth APRN.BEE RANCHER Work Phone: [facility] 06-02-2023 13:26-0400 Systolic blood pressure 128 mm[Hg] Darren Elizabeth APRN.BEE RANCHER Work Phone: [facility] 05-13-2023 11:22-0400 Body height 182.88 cm Avi Yepez Work Phone: [facility] 250 DO Work Phone: 05-13-2023 11:22-0400 Body mass index (BMI) [Ratio] 36.21 kg/m2 Avi Lauren Hoy Work Phone: [facility] 250 DO Work Phone: 05-13-2023 11:22-0400 Body surface area Derived from formula 2.41 m2 Avi Aguilar Hoy Work Phone: [facility] 250 DO Work Phone: 05-13-2023 11:22-0400 Body weight 121.11 kg Avi Aguilar Hoy Work Phone: [facility] 250 DO Work Phone: 05-13-2023 11:22-0400 Diastolic blood pressure 78 mm[Hg] Avi M Hoy Work Phone: [facility] 250 DO Work Phone: 05-13-2023 11:22-0400 Heart rate 64 /min Avi Lauren Hoy Work Phone: [facility] 250 DO Work Phone: 05-13-2023 11:22-0400 Systolic blood pressure 132 mm[Hg] Avi M Hoy Work Phone: [facility] [facility] DO Work Phone: 05-07-2022 11:36-0400 Body height 182.88 cm Avi Lauren Hoy Work Phone: [facility] 250 DO Work Phone: 05-07-2022 11:36-0400 Body mass index (BMI) [Ratio] 38.38 kg/m2 Avi Lauren Hoy Work Phone: [facility] 250 DO Work Phone: 05-07-2022 11:36-0400 Body surface area Derived from formula 2.47 m2 Avi Lauren Hoy Work Phone: [facility] 250 DO Work Phone: 05-07-2022 11:36-0400 Body weight 128.37 kg Avi Lauren Hoy Work Phone: [facility] 250 DO Work Phone: 05-07-2022 11:36-0400 Diastolic blood pressure 72 mm[Hg] Avi M Hoy Work Phone: [facility] 250 DO Work Phone: 05-07-2022 11:36-0400 Heart rate 66 /min Avi Aguilar Hosvetlana Work Phone: [facility] [facility] DO Work Phone: 05-07-2022 11:36-0400 Systolic blood pressure 110 mm[Hg] Avi Aguilar Hosvetlana Work Phone: [facility] 250 DO Work Phone: Encounters Encounter Date Encounter Type Care Provider Facility Start: 04-20-2025 End: 04-20-2025 Bamboo flowsheet JrHerbie Elias Saucedo Stepanic DO Work Phone: [facility] Start: 04-20-2025 End: 04-20-2025 Bamboo Dering Hallheet JrHerbie Elias Saucedo Stepanic DO Work Phone: [facility] Start: 04-20-2025 End: 04-20-2025 Office outpatient visit 40 minutes Elias Lewis Stepvicenta DO Work Phone: [facility] Comment on above: Acute pain of left k nee (Primary Dx); Arthritis of left knee Start: 03-04-2025 End: 03-04-2025 ambulatory [facility] Start: 02-18-2025 End: 02-18-2025 Office outpatient visit 15 minutes Car Cuellar PA Work Phone: [facility] Comment on above: Acute pain of left k nee (Primary Dx); Arthritis of left knee; Knee instability, left Start: 02-18-2025 End: 02-18-2025 ambulatory CAR CUELLAR Not Available Start: 12-13-2024 End: 12-13-2024 ambulatory Evelyne Polk MD Facility:[facility] Start: 09-09-2024 End: 09-09-2024 [facility] Start: 09-08-2024 End: 09-08-2024 ambulatory Rell ADAMSON Facility: [facility] Start: 09-08-2024 End: 09-08-2024 Patient encounter procedure Rell ADAMSON [facility] Start: 08-30-2024 End: 08-30-2024 Bamboo [...] 08-25-2024 ambulatory MD Avi Yepez Work Phone: [facility] Work Phone: Start: 08-25-2024 End: 08-25-2024 Departed Referred MD Avi Yepez Work Phone: [facility] Start: 08-25-2024 End: 08-25-2024 ambulatory Rell ADAMSON Facility:[id number] Start: 08-16-2024 End: 08-16-2024 Bamboo flowsheet [...] Refill Corona Peng NP Work Phone: [facility] Comment on above: Post-op pain (Primar y Dx) Start: 07-20-2024 End: 07-20-2024 ambulatory Rell ADAMSON Facility:[facility] Start: 07-20-2024 End: 07-20-2024 Patient encounter procedure Rell ADAMSON [facility] Start: 07-19-2024 End: 07-19-2024 Bamboo flowsheet Maria E Liv PT [facility] Start: 07-19-2024 End: 07-19-2024 Bamboo flowsheet Maria E [place] [facility] Start: 07-19-2024 End: 07-19-2024 ambulatory Maria E Liv PT [facility] Comment on above: Internal [...] Preprocedural examination done Car LUCIANO Work Phone: [facility] Start: 07-08-2024 End: 07-08-2024 ambulatory CAR CUELLAR Not Available Start: 07-05-2024 ambulatory Rell ADAMSON Facility:[facility] Start: 06-21-2024 End: 06-21-2024 Office outpatient visit 25 minutes Jr. Elias Thomas DO Work Phone: [facility] Comment on above: Internal derangement of left knee (Primary Dx) Start: 06-21-2024 End: 06-21-2024 ambulatory ELIAS EDEN Not Available Start: 06-11-2024 End: 06-11-2024 ambulatory [facility] Start: 06-09-2024 Non-patient / Non-visit MD Indra Yepez Work Phone: [facility] Work Phone: Start: 05-10-2024 End: 05-10-2024 ambulatory ELIAS EDEN Not Available Start: 2023 End: 2023 ambulatory JUAN R LING Facility:[facility] Start: 2023 End: 2023 Office outpatient new 30 minutes Juan R Ling MD Work Phone: [facility] Comment on above: Meralgia paresthetic a of left side (Primary Dx); Chronic midline low back pain without sciatica Start: 08-01-2023 End: 08-01-2023 ambulatory Darren Elizabeth CATTLE SHIPPER.BEE RANCHER Work Phone: [facility] Comment on above: Dr chong Cut me open Start: 07-01-2023 End: 07-01-2023 ambulatory NIKOLAY CAMP Facility:[facility] Start: 06-26-2023 Telephone encounter Nikolay Camp DO Work Phone: [facility] Comment on above: Preparations For Pro cedures (Pre-injection instructions) Start: 06-19-2023 Orders Only Nikolay hall DO Work Phone: Neurology Comment on above: Lumbar radiculopathy (Primary Dx); Displacement of lumbar intervertebral disc without myelopathy Start: 06-02-2023 End: 06-03-2023 ambulatory DARREN ELIZABETH Facility:[facility] Start: 06-02-2023 End: 06-02-2023 Patient encounter procedure Darren Elizabeth CATTLE SHIPPER.BEE RANCHER Work Phone: [facility] Comment on above: Radiculopathy, lumba r region (Primary Dx); Lumbar disc herniation Start: 05-13-2023 Office outpatient vi sit 25 minutes Avi Archersvetlana Work Phone: [facility] DO Work Phone: Start: 05-13-[address] Reilly Nelson II Facility: Start: 05-06-2023 Chart abstracting None (Historical) Neurology Start: 12-16-2022 Rx Renewal Avi Yepez Work Phone: [facility] DO Work Phone: Start: 07-17-2022 End: 07-17-2022 Departed Referred MD Avi Yepez Work Phone: [facility] [address] Start: 05-07-2022 Office outpatient vi sit 25 minutes Avi Lauren Gianniy Work Phone: [facility] DO Work Phone: Start: 01-03-[address] AVI YEPEZ Facility :[facility] Start: 12-21-2021 Encounter for genera l adult medical examination without abnormal findings DR AVI EYPEZ [facility] Start: 12-20-2021 End: 12-21-[address] AVI YEPEZ Facility:[facility] Start: 12-20-2021 End: 12-21-2021 Encounter for general adult medical examination without abnormal findings DR AVI YEPEZ Facility:[facility] Start: 12-10-2021 Rx Renewal Reilly mcmahon MD Work Phone: [facility] DO Work Phone: Procedures Date Procedure Procedure Detail Performing Clinician Start: 02-18-2025 Arthrocentesis aspir&/inj major jt/bursa w/o us Car LUCIANO Work Phone: Start: 08-25-2024 Colonoscopy Car LUCIANO Work Phone: Start: 08-25-2024 Colonoscopy Rell ADAMSON Start: 08-25-2024 Esophagogastroduodenoscopy Rell NILClif Start: 07-09-2024 ALL CBC WITH AUTO DIFF Car Farris Work Phone: Start: 07-17-2022 Radiologic examination of knee MD Puja Yepez Work Phone: Start: 12-20-[address] AVI YEPEZ Comment on above: Performed By: #### PSASC #### [facility] [address] [place] [address] Dr. Conor Chan Start: 06-09-2020 Total colonoscopy Reilly Nelson MD Work Phone: Start: 07-02-2019 End: 07-02-2019 Colonoscopy Darren Elizabeth CATTLE SHIPPER.BEE RANCHER Work Phone: Cardiac catheterization Will renetta Nelson MD Work Phone: Cardiac catheterization Jorge ADAMSON Cholecystectomy Reilly miranda MD Work Phone: Cholecystectomy Rell ADAMSON Nasal septoplasty Rell MORALEZ Plan of Treatment Date Care Activity Detail Author Start: 08-25-2034 Screening for malign ant neoplasm of colon [facility] Start: 07-02-2029 Screening for malign ant neoplasm of colon [facility] Start: 12-20-2026 PROSTATE CANCER SCREENING DISCUSSION PROSTATE CANCER SCREENING DISCUSSION [facility] Start: 07-14-2025 End: 07-14-2025 Patient encounter procedure 07/14/2025 9:00 AM EDT Office Visit [facility] [address] [place] [address] Car Cuellar, PA [address] [place] [address] [facility] Start: 06-17-2025 End: 06-17-2025 Patient encounter procedure 06/17/2025 9:00 AM EDT Office Visit [facility] [address] [place] [phone] Car Cuellar, PA [address] [place] [address] [facility] Start: 04-20-2025 End: 04-20-2025 Patient encounter procedure 04/20/2025 8:30 AM EDT Office Visit [facility] [address] [place] [phone] Jr. Elias Thomas DO [address] [place] [address] Arrived [facility] Comment on above: Arrived Start: 08-30-2024 End: 08-30-2024 Patient encounter procedure 08/30/2024 10:15 AM EST Office Visit [facility] [address] [place] [phone] Car Cuellar, PA [address] [place] [address] S/P left knee arthroscopy (Primary Dx) [facility] Comment on above: S/P left knee arthro scopy (Primary Dx) Start: 08-25-2024 [facility] Start: 08-16-2024 End: 08-16-2024 Patient encounter procedure 08/16/2024 10:00 AM EDT Office Visit [facility] [address] [place] [phone] Car Cuellar, PA [address] [place] [address] S/P left knee arthroscopy (Primary Dx) [facility] Comment on above: S/P left knee arthro scopy (Primary Dx) Start: 08-12-2024 End: 08-12-2024 Patient encounter procedure 08/12/2024 9:00 AM EDT Office Visit [facility] [address] [place] [phone] Car Cuellar, PA [address] [place] [address] [facility] Start: 07-29-2024 End: 07-29-2024 Patient encounter procedure 07/29/2024 10:45 AM EDT Procedure Visit [facility] Jr. Elias Thomas DO [address] [place] [address] [facility] Start: 07-19-2024 End: 07-19-2024 ambulatory [facility] Comment on above: Internal derangement of left knee Start: 07-08-2024 End: 07-08-2025 CBC W Auto Differential panel - Blood CBC and differential Lab Routine Preop examination Expected: 07/08/2024 (Approximate), Expires: 07/08/2025 [facility] Work Phone: Comment on above: Expected: 07/08/2024 (Approximate), Expires: 07/08/2025 Start: 07-08-2024 End: 07-08-2024 Patient encounter procedure 07/08/2024 10:00 AM EDT Office Visit [facility] [address] [place] [id number] Car Cuellar, [place] [address] [place] [address] Preop examination (Primary Dx); Internal derangement of left knee [facility] Comment on above: Preop examination (P rimary Dx); Internal derangement of left knee Start: 06-27-2024 Influenza vaccination Influenza Vacc ine (#1) [facility] Start: 06-27-2023 Influenza vaccination C [facility] Start: 05-13-2023 FUV, Provider: Reilly Nelson, Status: Pen, Time: 11:10 AM FUV, Provider: Reilly Nelson, Status: Pen, Time: 11:[address] [facility] [email or web address] 250 DO Work Phone: Start: 10-27-2022 DEPRESSION ASSESSMENT DEPRESSION ASS ESSMENT [facility] Start: 05-17-2022 COVID-19 VACCINE (6 - Pfizer series) COVID-19 VACCINE (6 - Pfizer series) [facility] Start: 05-15-2022 FUV, Provider: Reilly Nelson, Status: Pen, Time: 2:00 PM FUV, Provider: Reilly Nelson, Status: Pen, Time: 2:[address] [facility] [email or web address] 250 DO Work Phone: Start: 07-02-2020 Colonoscopy COLONOSCOPY [facility] Start: 07-02-2020 COLORECTAL CANCER SCREENING COLORECTAL CANCER SCREENING [facility] Start: 2016 Prostate Cancer Screening Discussion Prostate Cancer Screening Discussion [facility] Start: 2011 SHINGRIX VACCINE (1 of 2) SHINGRIX VACCINE (1 of 2) [facility] Start: 2006 COLOGUARD (FIT-DNA) COLOGUARD (FIT-D NA) [facility] Start: [address] COLONOGRAPHY [facility] Start: 2006 DIABETES SCREEN DIABETES SCREEN [facility] Start: 2006 Diabetes Screening Diabetes Screenin g [facility] Start: 2006 FECAL OCCULT BLOOD FECAL OCCULT BLOO D [facility] Start: 2006 SIGMOIDOSCOPY SIGMOIDOSCOPY [facility] Start: 1996 Lipid 1996 panel - Serum or Plasma Lipid Screening [facility] Start: 1996 LIPID SCREEN LIPID SCREEN [facility] Start: 1980 Urine microalbumin profile [facility] Start: 1979 HEPATITIS C SCREENING HEPATITIS C SC REENING [facility] Start: 1979 HIV SCREENING HIV SCREENING [facility] Start: 1961 Screening for malign ant neoplasm of colon [facility] End: 09-02-2024 Radex spine lumbosacral minimum 4 views XR LUMBAR MOTION 4V AP/LAT/ FLEX/EXT Radiology Routine Meralgia paresthetica of left side 1 Occurrences starting 2023 until 09/02/2024 [facility] Work Phone: Comment on above: 1 Occurrences starti ng 2023 until 09/02/2024 SPINE INTERVENTION PROCEDURE SPINE INTERVENTION PROCEDURE Procedures Routine Radiculopathy, lumbar region Lumbar disc herniation Ordered: 06/02/2023 [facility] Work Phone: Comment on above: Ordered: 06/02/2023 [facility] Immunizations Immunization Date Immunization Notes Care Provider Deepa rehman 09-12-2023 influenza virus vacc ine, unspecified formulation Stepanic DO Work Phone: [facility] 10-14-2022 Pfizer COVID-19 Vac Bivalent 30 MCG/0.3ML Intramuscular Suspension Avi Lauren Hoy Work Phone: [facility] 10-03-2022 influenza, injectabl e, quadrivalent, preservative free [facility] M [facility] Work Phone: 10-03-2022 influenza virus vacc ine, unspecified formulation Darren Elizabeth APRN.BEE RANCHER Work Phone: [facility] 03-22-2022 Comirnaty 30 MCG/0.3 ML Intramuscular Suspension Avi M Hoy Work Phone: [facility] DO Work Phone: 03-22-2022 Moderna COVID-19 Vac cine 100 MCG/0.5ML Intramuscular Suspension Avi M Hoy Work Phone: [facility] Comment on above: Series: 03-22-2022 SARS-CoV-2 mRNA (nfcfocmpicw-vcqx-whqlfi e) vaccine Rell ADAMSON [facility] 03-22-2022 zoster vaccine recombinant Avi Lauren Hoy Work Phone: [facility] 250 DO Work Phone: 09-03-2021 Pfizer-BioNTech COVI D-19 Vacc 30 MCG/0.3ML Intramuscular Suspension Avi M Hoy Work Phone: [facility] 08-25-2021 influenza virus vacc ine, unspecified formulation Rell ADAMSON [facility] 08-25-2021 influenza, injectabl e, quadrivalent, preservative free Avi M Hoy Work Phone: [facility] 250 DO Work Phone: 08-25-2021 zoster vaccine recombinant Avi M Hoy Work Phone: [facility] 250 DO Work Phone: 02-13-2021 Pfizer-BioNTech COVI D-19 Vacc 30 MCG/0.3ML Intramuscular Suspension Avi Archery Work Phone: [facility] 01-20-2021 SARS-CoV-2 (COVID-19 ) mRNA BNT-162b2 vax Rell ADAMSON [facility] 01-13-2021 Pfizer-BioNTech COVI D-19 Vacc 30 MCG/0.3ML Intramuscular Suspension Avi M Hoy Work Phone: [facility] 12-23-2020 Pfizer-BioNTech COVI D-19 Vacc 30 MCG/0.3ML Intramuscular Suspension Avi M Hoy Work Phone: [facility] 08-28-2020 influenza, injectabl e, quadrivalent, preservative free Avi M Hoy Work Phone: [facility] 250 DO Work Phone: 08-28-2020 influenza virus vacc ine, unspecified formulation Juan R Ling MD Work Phone: [facility] Payers Date Payer Category Payer Self-pay [id number] 2021 Private Health Insurance [id number] 2007 Managed Care HMO (unspecified) [id number] 1961 Unknown [id number] 1961 Unknown [id number] 1961 Unknown [id number] [id number] 1961 Unknown [id number] [id number] 1961 Unknown [id number] [id number] 1961 Unknown [id number] [id number] 1961 Unknown [id number] [id number] 1961 Unknown [id number] [id number] 9 1961 Unknown [id number] 2.16.840.1.261324.3.579.2.125 9 1961 Unknown [id number] 2.16.840.1.552004.3.579.2.125 9 1961 Unknown [id number] 2.16.840.1.473648.3.579.2.125 9 1961 Unknown [id number] 2.16.840.1.846352.3.579.2.125 9 1961 Unknown [id number] 2.16.840.1.507058.3.579.2.125 9 1961 Unknown [id number] 2.16.840.1.291702.3.579.2.125 9 1961 Unknown [id number] [id number] 9 1959 Private Health Insurance [id number] 1959 Self-pay [id number] Unknown Unknown [facility] [id number] Unknown [id number] Social History Date Type Detail Facility Start: 06-02-2023 End: 04-20-2025 Consumes alcohol Consumes alcohol [facility] Comment on above: socially; occasional; Start: 09-28-2020 End: 05-10-2024 Tobacco smoking status NHIS Never smoked tobacco (finding) [facility] Start: 1960 Sex Assigned At Male F [facility] Tobacco smoking stat RUSTIS Tobacco smoking consumption unknown [facility] Start: 1960 Sex Assigned At Not on file [facility] Start: 06-02-2023 End: 04-20-2025 Gender identity Not on file [facility] Start: 06-02-2023 End: 05-10-2024 Tobacco use and exposure Smokeless tobacco non-user [facility] National Score (1-10 0), lower number is lower risk 61 [facility] Start: 07-28-2023 Gender identity Identifies as male gender (finding) [facility] Start: 07-28-2023 Sexual orientation Heterosexual (fin rajan) [facility] Start: 07-08-2024 End: 04-20-2025 Alcoholic beverage intake Current drinker of alcohol (finding) [facility] Start: 05-10-2024 Alcohol Comment 1/WK [facility] Functional Status Date Assessment Result Facility 09-08-2024 Functional Status N/A [facility] 07-20-2024 Functional Status N/A [facility] Clinical Notes 05-06-2023 to 04-20-2025 Jr. Elias Thomas, - 04/20/2025 8:30 AM ANKITA Burgos - 02/18/2025 9:00 AM ANKITA Burgos - 08/30/2024 10:15 AM ANKITA Christiansen - 08/16/2024 10:00 AM EDT Note Date & Type Note Facility 04-20-2025 History of Present illness Narrative Images from the original note were not included. Orthopedic Office note: NAME: Kim Nichols : 1960 (EST PT) (LAST APPT [...] VOLTAREN PRN. LIDOCAINE PATCH - NO RELIEF. SUNSHINE WRAP WHEN UMPIRING. Physical Exam Knee Musculoskeletal [...] of surgery. The patient understands the risks of said treatment. We have discussed both surgical and [...] including the patient's age and longevity of prosthesis, usual postoperative course, and possible need for revision in the future, and leg length inequality postoperatively were discussed at length. We have discussed with the patient that this is a major orthopedic procedure. We discussed that the patient may require more than the average 30 MED limited and may require greater than 7 days narcotic treatment postoperatively. Therefore, patient's narcotic usage will be tailored on an individual basis. If this patient at the time of surgery has any of the following: Morbidities including but not limited to history of falling, cognitive impairment, BMI greater than 30, end-stage renal disease, respiratory failure, heart failure, kidney failure, liver failure, diabetes, cardiac event in the last year, sleep apnea, disorder, excessive tobacco use, if at the time of surgery the patient is greater than 80 years old, or the patient requires discharge to a fdc facility, the patient may require to have additional inpatient hospital stay days following the surgery. Physical therapy is contraindicated in this patient''s case because of the jpsy-eu-oeui articulation of the patient's knee.. Questions answered in laymen terms at the bedside. The diagnosis, home exercise plan and any ongoing restrictions/ recommendations reviewed. If unable to be reached in office, I recommend evaluation at nearest Emergency Room if any symptoms worsened or new symptoms develop for requiring urgent evaluation. Visit was preformed using [employer]-warehouse helper speech recognition. documented in this encounter [facility] 03-04-2025 Note ID Cardiology - [facility] Subjective Kim Nichols is a 64 y.o. year old male patient being seen for Coronary Artery Disease (Denies SOB.), Atrial Fibrillation (On Eliquis, denies bleeding. Denies palpitations and syncope. ), Hyperlipidemia (Had lipid panel in May 2024. On rosuvastatin. ), Hypertension, and Chest Pain (Intermittent, blames his hiatal hernia and back pain. ) Patient Active Problem List Diagnosis Atrial fibrillation (CMS/HCC) Benign essential hypertension Chest pain due to GERD Chronic low back pain BMI 38.0-38.9,adult Class 3 obesity Coronary arteriosclerosis Displacement of lumbar intervertebral disc without myelopathy Diverticulosis Erectile dysfunction Family history of colonic polyps Fundic gland polyps of stomach, benign Gastroesophageal reflux disease Hyperlipidemia Internal derangement of left knee Lumbar radiculopathy Migraine Need for crutch training Sigmoid diverticulosis HPI 64-year-old male who used to follow with . He was evaluated for atypical chest pain and he had Lexiscan nuclear stress test which showed fixed inferior perfusion defect without ischemia and normal left ventricular systolic function.. Patient had prior cardiac catheterization in 2019 which did not show significant coronary artery disease. Chest pain resolved. He also had new onset atrial fibrillation in April 2024 and he was started on metoprolol tartrate and Eliquis. Patient also had history of hypertension, and hyperlipidemia. He denies that he ever had a TIA or stroke in the past. He reports that his dad had a stroke and by mistake it was reported as his issue He states that he has been doing very well. He reports sick occasional chest pains and specifically occurs when he is sitting in bad position and is usually back pain radiating towards the chest or vice versa and it is not related to exertion. He thinks it is related to his back disc herniation and sometimes to hiatal hernia. He denies any chest discomfort with activities. He denies exertional dyspnea orthopnea or paroxysmal nocturnal dyspnea. He denies dizziness or palpitation or legs edema or leg discomfort on exertion. He follows with pain management regarding his back pain. Also he has knees arthritis send he is planning to have knee replacement next summer He denies smoking, alcohol or illicit drugs Regarding family history his father had a stroke but also he was a heavy smoker and he had carotid stenosis, sister had [place], mother had brain aneurysm ROS All systems were reviewed and they were negative except for the positive findings noted above in the history Past Medical History: Diagnosis Date Abnormal ECG Aching headache Arrhythmia Atrial fibrillation (CMS/HCC) Coronary artery disease Hyperlipidemia Hypertension Past Surgical History: Procedure Laterality Date CARDIAC CATHETERIZATION CHOLECYSTECTOMY KNEE SURGERY Family History Problem Relation Name Age of Onset Brain Aneurysm Mother Stroke Father Heart attack Sister Social History Tobacco Use Smoking status: Never Smokeless tobacco: Never Substance Use Topics Alcohol use: Yes Comment: occ Drug use: Never Allergies Allergies Allergen Reactions Tramadol Other Amoxicillin Hives and Rash Medications Current Outpatient Medications: apixaban (Eliquis) 5 mg tablet, 5 mg., Disp: , Rfl: aspirin (Vazalore) 81 mg capsule, Take by mouth., Disp: , Rfl: chlorthalidone (Hygroton) 25 mg tablet, TAKE 1 TABLET BY MOUTH EVERY MORNING WITH FOOD FOR 90 DAYS, Disp: , Rfl: gabapentin (Neurontin) 300 mg capsule, Take 300 mg by mouth twice a day., Disp: , Rfl: HYDROcodone-acetaminophen (Winona) 5-325 mg tablet, Take 1 tablet by mouth every 4 (four) hours if needed for severe pain (8-10 pain score)., Disp: , Rfl: metoprolol tartrate (Lopressor) 25 mg tablet, Take 25 mg by mouth two times daily., Disp: , Rfl: pantoprazole (ProtoNix) 40 mg EC tablet, Take 40 mg by mouth in the morning., Disp: , Rfl: potassium chloride CR (K-Tab) 20 mEq ER tablet, Take 20 mEq by mouth two times daily., Disp: , Rfl: rosuvastatin (Crestor) 20 mg tablet, Take 20 mg by mouth., Disp: , Rfl: Objective Visit Vitals BP 108/74 (BP Location: Left arm, Patient Position: Sitting) Pulse 57 Ht 1.829 m (6') Wt 117 kg (257 lb) SpO2 97% BMI 34.86 kg/m??? Smoking Status Never BSA 2.44 m??? Physical exam: GENERAL: alert and oriented x3, well developed, in no acute distress. HEAD: atraumatic, normocephalic. EYES: ELPIDIO, EOMI. NECK: trachea midline, no JVD present, no carotid bruits present. CARDIAC: S1, S2 present. RRR. No murmur, rubs, or gallops. RESPIRATORY: CTAB, no increased effort of breathing, no rales, rhonchi, or wheezing. ABDOMEN: soft, nontender, nondistended. EXTREMITIES: no lower extremity edema. No rash/skin discoloration present. NEURO: strength/sensation equal and symmetric in (more content not included)... [facility] 02-18-2025 History of Present illness Narrative Associated Order(s): L Inj/Asp: L knee Post-Procedure Diagnose(s): Arthritis of left knee Images from the original note were not included. Orthopedic Office note: NAME: Kim Nichols : 1960 EST PT) S/P (L) KNEE SCOPE 07/29/24 (~6MO)- PT WAS POSSIBLY GOING TO HAVE INJ TODAY XRAY LT KNEE 05/10/24 EPIC NO MRI HX CORTISONE INJ ~1YR AGO NO VISCO NO MDP/PREDNISONE PT NOTES INTERMITTENT DISCOMFORT- PAIN WITH TWISTING WHILE UMPIRING- PAIN GENERALLY MEDIAL KNEE- OCCASIONAL INSTABILITY- PAIN CAN BE SHARP/STABBING- +STIFFNESS WITH PROLONG SITTING- +NORCO - GOOD ROM- PT ICES /ELEVATES- PT DOES WEAR SUNSHINE WRAP WHEN UMPIRING Physical Exam General Appearance: Normal Respiratory: No acute distress Musculoskeletal: Gait: - Patient notes some instability with walking, like his knee may buckle or give out. Left Knee: - Left knee pain and arthritis with prior knee arthroscopy noting grade 4 changes medial femoral condyle and medial tibial plateau. - Increasing pain medial knee. Skin: Warm and dry, no rash. Neurological: Normal Knee Musculoskeletal Exam Gait Limp: left Limp comment: with initiation of gait. Inspection Leg length disparity: no discrepancy Left Erythema: none Effusion: mild Edema: none Ecchymosis: none Deformity: none Alignment: varus Previous incision: arthroscopic portals Incision: well-healed Palpation Left Left knee palpation is unremarkable. Increased warmth: none Masses: none Crepitus: patellofemoral and medial Tenderness: present Medial joint line: moderate Patella: mild Range of Motion Left Left knee range of motion is normal and full. Active extension: 5 Passive extension: 0 Active flexion: 115 Passive flexion: 120 Strength Left Left knee strength is normal. [...] affect Neurological: alert Skin: intact Lymphadenopathy: none Orders Placed This Encounter Procedures L Inj/Asp This order was created via procedure documentation L Inj/Asp: L knee on 02/18/2025 9:07 [...] and draped in the usual sterile fashion. Results ICD-10-CM 1. Acute pain of left knee M25.562 2. Arthritis of left knee M17.12 3. Knee instability, left M25.362 S/p TPHMM, CPMFC-4, CDMTP-4 Assessment & Plan Left knee pain Increasing pain in the medial knee, especially after firing with his son and increased walking. Instability with walking, feeling like the knee may buckle or give out. Fitted with a large economy hinged knee brace today but prefers to see if the injection works first before committing to daily brace use. Treatment plan: Recommended hinged knee brace for stability. Discussed surgical and nonsurgical treatment options, including the possibility of total knee arthroplasty due to significant arthritic changes noted in prior scope. Viscosupplementation discussed as a potential treatment to reduce recurrence, but effectiveness may be diminished. Current pain management routine includes taking 2 Winona before activity, which is not recommended. Discussed appropriate use of narcotic medication, emphasizing not using it solely to complete activities. Surgery may need to be considered sooner if experiencing significant pain. Left knee arthritis Prior knee arthroscopy revealed grade 4 changes in the medial femoral condyle and medial tibial plateau. Follow-up: Follow-up in 4 months. Will call next week if deciding to move forward with the hinged knee brace. PROCEDURE He was fitted with a large hinged knee brace today which felt good, but did not take the brace yet, awaiting to see relief from weekend. We discussed AAOS guidlines for initial treatment of symptomatic osteoarthritis: We have recommended Self-Management programs for strengthening, low-impact aerobic exercises, and physical activity maintenance and modifications to symptom tolerance. Questions answered in laymen terms at the bedside. The diagnosis, home exercise plan and any ongoing restrictions/ recommendations reviewed. If unable to be reached in office, I recommend evaluation at nearest Emergency Room if any symptoms worsened or new symptoms develop for requiring urgent evaluation. Visit was preformed using [employer]-warehouse helper speech recognition. documented in this encounter [facility] 09-09-2024 Note Cardiology Clinic No te Chief [...] as needed Richard Benitez MD Interventional Cardiology [facility] 08-30-2024 History of Present illness Narrative Images from the original note [...] requiring urgent evaluation. documented in this encounter [facility] 08-16-2024 History of Present illness Narrative Images from the original note [...] requiring urgent evaluation. documented in this encounter [facility] 08-16-2024 Instructions ANKITA Stapleton - 08/16/2024 [...] than 10 mins documented in this encounter [facility] 07-28-2024 Telephone encounter Note Post op pain rx. PDMP reviewed [facility] 07-28-2024 Miscellaneous Notes Post op pain rx. PDMP reviewed documented in this encounter [facility] 07-20-2024 Note General Surgery Offi ce/Clinic [...] tab(s), Oral, Ivy (more content not included)... [facility] Comment on above: Result Comment: Elec tronically Signed By: SNOW LANDA, Rell Mccormick\Date and Time Signed: 07/20/24 14:20 EDT 07-19-2024 History of Present illness Narrative Physical Therapy Physical Therapy Evaluation [...] sign below. Date: documented in this encounter [facility] 07-08-2024 History of Present illness Narrative Images from the original note [...] Answer: No Ambulatory referral to Physical Therapy [facility] ; PLEASE CALL PATIENT TO SCHEDULE, THANK YOU (CAMILLA W/OUR OFFICE 07/08 @10AM) CRUTCH TRAIN [employer] DISP[employer] [...] surgery scheduled. (L) KNEE SCOPE 07/29 @TANMAY SX INSTRUCTIONS GIVEN TODAY 07/08 @10AM - [place] CARDIAC CLEARANCE ; OBTAINED - NELLA PROTOCOL PT REFERRAL SENT ; CRUTCH TRAIN AND DISPENSE NPAR ([id number], [id number]) Follow up for 08/12 @9AM W/AMANDA IN [place]. documented in this encounter [facility] 06-21-2024 History of Present illness Narrative Images from the original note were not included. HISTORY OF PRESENT ILLNESS: EST PT Kim Nichols is an 63 y.o. @ male. EST PT RECHECK LT KNEE PAIN - POSSIBLY DISCUSS SURGERY- PT WAS GETTING A CARDIAC WORK UP- PT DID SEE DR BENITEZ (JOINT MACHINE OPERATOR) 06/11/24; PT STATES HE IS CLEARED (OFFICE NOT IS UNDER ENCOUNTER) PT STATES HE WAS ADMITTED TO [facility] FOR A-FIB X 1DAY ~05/17/24 XRAY LT KNEE EPIC 05/10/24 XRAY LT KNEE TB 03/12/24 MRI LT KNEE TB 04/28/24 CORTISONE [...] Use: Low Risk (06/11/2024) Re[facility] from [facility] Patient History Smoking Tobacco Use: Never [...] states that he was cleared per his call center representative ; we will need to obtain clearance [...] Elias Thomas D.O. documented in this encounter [facility] 06-11-2024 Note Cardiology Clinic No te [...] without additional cardiac (more content not included)... [facility] 2023 Note HNO ID: [id number] Author: Juan R Ling MD Service: ? [...] issues. 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 Denies any [...] BICEPS TRICEPS DELTS Wrist Ext Wrist Flex Solder Cream Maker HI R 5 5 5 5 5 [...] degenerative changes Xray (more content not included)... [facility] 2023 Note HNO ID: [id number] Author: Bossman Saunders Service: ? Author Type: [...] opioids Medications: See medication reconciliation list in [facility] MEDICATIONS: Gabapentin, Winona, Tylenol Have you ever seen a pain [...] routine daily living activities? No Bossman Escoto [facility] 2023 History of Present illness Narrative SPINE SURGERY NEW PATIENT This [...] issues. 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 Denies any weakness. No [...] BICEPS TRICEPS DELTS Wrist Ext Wrist Flex Solder Cream Maker HI R 5 5 5 5 5 [...] any dynamic instability. I will see Kim back in approximately 6 months time with xrays [...] opioids Medications: [facility] MEDICATIONS: Gabapentin, Winona, Tylenol Have you ever seen a pain [...] No Bossman Escoto documented in this encounter [facility] 08-01-2023 Note HNO ID: [id number] Author: Darren Elizabeth APRN.BEE RANCHER Service: ? Author Type: Nurse Practitioner Type: Progress Notes Filed: 08/01/2023 1:30 PM Note Text: SPINE SURGERY ESTABLISHED VISIT This is a virtual visit using [employer] Video Visit. It required patient-provider interaction for the medical decision making as documented below. DATE OF SERVICE: 08/01/2023 DATE OF LAST VISIT: 06/02/2023 SUBJECTIVE: HPI:Kim Nichols is a 62 year old male presenting via virtual vist s/p Left L5 transforaminal epidural steroid injection on 07/01/[address] [place] great initially and for the first few days after injection, symptoms returned shortly after. Patient has increased his Gabapentin 300 mg from BID to TID and is feeling good today. 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 SIGNATURE: Darren Elizabeth APRN.KIRILL PATIENT NAME: Kim Nichols DATE: August 01, 2023 TIME: 12:53 PM PAGER: [facility] 06-26-2023 Miscellaneous Notes Phoned patient and message left for Kim to confirm appointment for Kim Nichols for spine procedure on 07/01/2023. Patient notified that Iota will call patient the night before with the time to arrive for injection. Patient verbalized understanding of the following: -Provided education on spine procedure and answered questions related to spine injection procedure. -Chief Radiology is needed to drive patient home. -NPO [...] to report. Diabetic: No Patient given number [phone], spine injections schedulers, if there is any need to reschedule/ change appointment during normal business hours. Active [employer] users were informed to read [employer] procedure instructions prior to appointment. AMBULATORY PATIENT [...] POST INJECTION INSTRUCTIONS documented in this encounter [facility] 06-02-2023 Note HNO ID: [id number] Author: Darren Elizabeth APRN.BEE RANCHER Service: ? Author Type: Nurse Practitioner Type: [...] with him pain. He also is prescribed Winona for breakthrough pain which he only takes [...] Normal. DATA REVIE (more content not included)... [facility] 06-02-2023 History of Present illness Narrative SPINE SURGERY OUTPATIENT CONSULT This [...] with him pain. He also is prescribed Winona for breakthrough pain which he only takes [...] which included preparing to see the patient, [id number] patient care, completing clinical documentation, obtaining and/or reviewing separately obtained history, performing a medically appropriate examination, counseling and educating the patient/family/caregiver, independently interpreting results (not separately reported), and communicating results to the patient/family/caregiver. SIGNATURE: Darren Elizabeth APRN.CNP PATIENT NAME: Kim Nichols DATE: June 02, 2023 TIME: 1:57 PM PAGER: documented in this encounter [facility] 05-14-2023 Note HNO ID: [id number] Author: Ember Delatorre PA-C Service: ? Author Type: Physician English And Reading Instructor Type: Progress Notes Filed: 05/14/2023 4:17 PM Note Text: Per Triage: Kim Nichols is a 62 year old male that requests evaluation of lumbar spine. Per review, they have symptoms of back and LLE pain. Positive for numbness. CMT: Medication: Gabapentin, Tylenol, Winona Studies (Reports unless indicated) MRI Lumbar: L4/5 moderate left foramen narrowing which may contribute to patient's symptoms 2. L5/S1 disc protrusion without significant canal or foramen narrowing. Disposition: Please schedule with surgical SANDY. Consider if injection is appropriate or on effective dose of Neurontin. Also see if symptoms correlate with imaging. [facility] 05-14-2023 History of Present illness Narrative Per Triage: Kim Nichols is a 62 year old male that requests evaluation of lumbar spine. Per review, they have symptoms of back and LLE pain. Positive for numbness. CMT: Medication: Gabapentin, Tylenol, Winona Studies (Reports unless indicated) MRI Lumbar: L4/5 [...] Health Provider or Pain Management Provider at [facility]? No If answer is YES [...] facility where the MRI/CT/myelogram was completed: The [address] [address] MRI/CT/myelogram viewable in Epic: No If not, please provide [phone] to fax in imaging reports for review. [...] Additional Comments Hydrocodone documented in this encounter [facility] 05-06-2023 Note HNO ID: [id number] Author: Mauricio Kelley Service: ? Author Type: ? Type: Progress Notes Filed: 05/14/2023 4:17 PM Note Text: Patient name: Kim Nichols Are you being referred by a [facility] Spine Health Provider or Pain Management Provider at [facility]? No If answer is YES [...] facility where the MRI/CT/myelogram was completed: The [address] [address] MRI/CT/myelogram viewable in Epic: No If not, please provide [phone] to fax in imaging reports for review. [...] the surgery was completed: Additional Comments Hydrocodone [facility] Evaluation + Plan note No data available for this section [facility] General Surgery Backus Evaluation note No assessment inform ation available [facility] Work Phone: Evaluation note Diagnosis Radiculopathy, lumbar region- Primary Thoracic or lumbosacral neuritis or radiculitis, unspecified Lumbar disc herniation Displacement of lumbar intervertebral disc without myelopathy [facility] Diagnosis Lumbar radiculopathy- Primary Thoracic or lumbosacral neuritis or radiculitis, unspecified Displacement of lumbar intervertebral disc without myelopathy [facility]* Diagnosis Meralgia paresthetica of left side- Primary Meralgia paresthetica Chronic midline low back pain without sciatica documented in this encounter [facility] note* Diagnosis Post-op pain- Primary Other acute postoperative pain documented in this encounter [facility]* Diagnosis S/P left knee arthroscopy- Primary documented in this encounter [facility]* Diagnosis S/P left knee arthroscopy- Primary documented in this encounter [facility]* Diagnosis Preop examination- Primary Unspecified pre-operative examination Internal derangement of left knee [facility] Diagnosis Internal derangement of left knee- Primary [facility]* Diagnosis Internal derangement of left knee- Primary Need for crutch training [facility]* Diagnosis Acute pain of left knee- Primary Arthritis of left knee Knee instability, left [facility]* Diagnosis Acute pain of left knee- Primary Arthritis of left knee [facility] [...] to their favorable impact on blood pressure andcholesterol.-[facility] DO Work Phone: History of Present illness [...] to call if they arise or occur. [facility] DO Work Phone: History of Present [...] if they arise or occur. [facility] [email or web address] DO Work Phone: Hospital Discharge instructions No data available for this section [facility] Surgery Fern Progress note No data available for this section [facility] Fern Reason for referral (narrative)* Diagnostic Procedure Only (Routine) - Pending Review Specialty Diagnoses / Procedures Referred By Erlinda mao Referred To Contact XR IMAGING Diagnoses Meralgia paresthetica of left side Procedures XR LUMBAR MOTION 4V AP/LAT/ FLEX/EXT RADEX SPINE LUMBOSACRAL MINIMUM 4 VIEWS Juan R Ling MD [address] [place] [address] [place] [address] Referral ID Status Reason Start Date Expiration Date Visits Requested Visits Authorized [id number] Pending Review Auto-Generat ed Referral 2023 09/02/2024 1 1 [facility] for referral (narrative)* Consultation (Routine) - Pending Review Specialty Diagnoses / Procedures Referred By Erlinda t Referred To Contact Physical Therapy Diagnoses Internal derangement of left knee Procedures MI OFFICE/OUTPATIENT NEW HIGH MDM 60 MINUTES Car Cuellar PA [address] [place] [address] [facility] [address] [address] [place] [address] Referral ID Status Reason Start Date Expiration Date Visits Requested Visits Authorized [id number] Pending Review Consult and Treat 07/01/2024 12/28/2024 1 1 [facility] Healthcare Summary Purpose Family History Unknown Family [...] content) DATE CREATED AUTHOR [facility]/05/2022 [facility] DATE CREATED AUTHOR AUTHOR'S ORGANIZ ATION 05/14/2023 [facility] DATE CREATED AUTHOR AUTHOR'S ORGANIZ ATION 05/14/2023 [employer] DATE CREATED AUTHOR AUTHOR'S ORGANIZ ATION 2023 [facility] DATE CREATED AUTHOR AUTHOR'S ORGANIZ ATION 08/05/2023 [facility] DATE CREATED AUTHOR AUTHOR'S ORGANIZ ATION 09/01/2024 [facility] DATE CREATED AUTHOR AUTHOR'S ORGANIZ ATION 09/10/2024 [facility] DATE CREATED AUTHOR AUTHOR'S ORGANIZ ATION 12/17/2024 [facility] DATE CREATED AUTHOR AUTHOR'S ORGANIZ ATION 02/19/2025 [facility] EPIC DATE CREATED AUTHOR AUTHOR'S ORGANIZ ATION 03/06/2025 [facility] Care Teams (unrecognized sec tion [...] End: August 25, 2024 Rell Adamson MD [facility] Attending Provider Active Start: August 25, 2024 End: August 25, 2024 Team Status: Inactive Member Role Status Dates Avi Yepez MD Primary Care Provider Active Bijan Betts Jr, DO Attending Provider Active Hassock Maker Relationship Specialty Start Date End Date Avi Yepez MD [address] [phone] Referring Family Medicine 04/24/23 Hassock Maker Relationship Specialty Start Date End Date Avi Yepez MD [address] [phone] Referring Family Medicine 04/24/23 Hassock Maker Relationship Specialty Start Date End Date Avi Yepez MD [address] [phone] Referring Family Medicine 04/24/23 Hassock Maker Relationship Specialty Start Date End Date Avi Yepez MD [address] [phone] PCP - General Family Medicine 06/25/23 Avi Yepez MD [address] [place] [address] Referring Family Medicine 04/24/23 Hassock Maker Relationship Specialty Start Date End Date Avi Yepez MD [address] [place] [address] PCP - General Family Medicine 06/25/23 Avi Yepez MD [address] [place] [facility] [place] [address] Referring Family Medicine 04/24/23 Hassock Maker Relationship Specialty Start Date End Date Avi Yepez MD [address] [place] [facility] [place] [address] PCP - General Family Medicine 06/25/23 Avi Yepez MD [address] [place] [facility] [place] [address] Referring Family Medicine 04/24/23 Hassock Maker Relationship Specialty Start Date End Date Avi Yepez MD [address] [facility] [place] [address] PCP - General 05/05/24 Hassock Maker Relationship Specialty Start Date End Date Avi Yepez MD [address] [facility] [place] [address] PCP - General 05/05/24 Hassock Maker Relationship Specialty Start Date End Date Avi Yepez MD [address] [place] [place] [address] PCP - General 05/05/24 Hassock Maker Relationship Specialty Start Date End Date Avi Yepez MD [address] [place] [address] PCP - General 05/05/24 Hassock Maker Relationship Specialty Start Date End Date Avi Yepez MD [address] [place] [place] [address] PCP - General 05/05/24 Hassock Maker Relationship Specialty Start Date End Date Avi Yepez MD [address] [place] [place] [address] PCP - General 05/05/24 Hassock Maker Relationship Specialty Start Date End Date Avi Yepez MD [address] [place] [place] [address] PCP - General 05/05/24 Hassock Maker Relationship Specialty Start Date End Date Avi Yepez MD [address] [place] [place] [address] PCP - General 05/05/24 Hassock Maker Relationship Specialty Start Date End Date Avi Yepez MD [address] [place] [address] PCP - General 05/05/24 Hassock Maker Relationship Specialty Start Date End Date Avi Yepez MD [address] [place] [address] PCP - General 05/05/24 Hassock Maker Relationship Specialty Start Date End Date Avi Yepez MD PCP - General 05/05/24 Hassock Maker Relationship Specialty Start Date End Date Avi Yepez MD PCP - General 05/05/24 Goals (unrecognized section [...] or prosecute any alcohol or drug abuse patient.[facility] the event this information is protected by the Federal Confidentiality of Alcohol and Drug Abuse Patient Records regulations: The Federal rules restrict any use of the information to criminally investigate or prosecute any alcohol or drug abuse patient.[facility] the event this information is protected by the Federal Confidentiality of Alcohol and Drug Abuse Patient Records regulations: The Federal rules restrict any use of the information to criminally investigate or prosecute any alcohol or drug abuse patient.[facility] the event this information is protected by the Federal Confidentiality of Alcohol and Drug Abuse Patient Records regulations: The Federal rules restrict any use of the information to criminally investigate or prosecute any alcohol or drug abuse patient.[facility] the event this information is protected by the Federal Confidentiality of Alcohol and Drug Abuse Patient Records regulations: The Federal rules restrict any use of the information to criminally investigate or prosecute any alcohol or drug abuse patient.[facility] the event this information is protected by the Federal Confidentiality of Alcohol and Drug Abuse Patient Records regulations: The Federal rules restrict any use of the information to criminally investigate or prosecute any alcohol or drug abuse patient.[facility] Reason for Visit (unrecogniz ed section and content) Reason Comments New Patient Reason Comments Preparations For Procedures Pre-injectio n instructions Reason Comments Low Back Pain New Patient Evaluation Reason Comments Pain Post-op Reason Comments Pain Reason Comments Pain Specialty Diagnoses / Procedures Referred By Contac t Referred To Contact Physical Therapy Diagnoses Internal derangement of left knee Procedures MI OFFICE/OUTPATIENT NEW HIGH MDM 60 MINUTES Car Cuellar PA [address] [facility] [address] [place] [address] Maria E Peck PT Referral ID Status Reason Start Date Expiration Date Visits Requested Visits Authorized [id number] Authorized Consult and Treat 07/01/2024 12/28/2024 60 [...] BASED ON THE PRIMARY CLINICAL RECORDS. [facility]. provides no warranty or guarantee of the accuracy or completeness of information in this document.
--- NOTE | 2025-04-21 08:04 | XR_ITS ---
The [address] [address] Patient Name: KIM BOWEN MRN: [id number] date: 1960 Sex: M Assigned Patient Location: LAB Current Patient Location: LAB Accession/Order Number: [id number] Exam Date: 04/21/2025 08:46 Report Date: 04/21/2025 08:48 At the request of: AVI YEPEZ MD Procedure: XR thoracic spine 3V THORACIC SPINE - 3 views: CLINICAL HISTORY: Chest pain radiating to the back for the past year. No reported injury. COMPARISON: None AP, lateral and swimmer's views were obtained. There is subtle dextroscoliotic curvature. There is no evidence of compression fracture or displacement. The pedicles are intact. There is endplate spurring. There are no paraspinal soft tissue abnormalities. XR/XR thoracic spine 3V IMPRESSION: SUBTLE SCOLIOTIC CURVATURE AND DEGENERATIVE CHANGES. NO ACUTE BONY FINDINGS. Impression dictated by: Stacy Ellis M.D. 04/21/2025 8:48 AM Dictation Location: [place] [address] Electronically authenticated by: [id number] Y Date: 04/21/2025 08:48
[2025-04-21 09:06] LABS: Basophils Percent Auto 0.5 % (0.2-2.0); Eosinophils Absolute Auto 0.2 10^3/uL (0.0-0.7); Eosinophils Percent Auto 3.6 % (0.9-7.0); Hematocrit 48.4 % (42.0-54.0); Hemoglobin 16.9 g/dL (14.0-18.0); Immature Granulocytes Abs Auto 0.01 10^3/uL (0.00-0.03); Immature Granulocytes Pct Auto 0.2 % (0.0-0.5); Lymphocytes Absolute Auto 1.5 10^3/uL (1.2-3.8); Lymphocytes Percent Auto 22.9 % (20.5-60.0); Mean Corpuscular HGB Conc 34.9 g/dL (29.9-35.2); Mean Corpuscular Hemoglobin 29.8 pg (25.9-34.0); Mean Corpuscular Volume 85.2 fL (80.0-94.0); Mean Platelet Volume 10.6 fL (9.5-13.5); Monocytes Absolute Auto 0.8 10^3/uL (0.3-0.8); Monocytes Percent Auto 12.5 % (1.7-12.0); Neutrophils Absolute Auto 3.9 10^3/uL (1.4-6.5); Neutrophils Percent Auto 60.3 % (43.0-75.0); Platelet Count 218 10^3/uL (150-450); Red Blood Count 5.68 10^6/uL (4.70-6.10); Red Cell Distribution Width 14.3 % (11.0-15.0); White Blood Count 6.4 10^3/uL (4.0-11.0)
[2025-04-21 10:45] LABS: Alanine Aminotransferase 30 U/L (16-63); Albumin Level 3.8 g/dL (3.4-5.0); Alkaline Phosphatase 57 U/L (46-116); Anion Gap 12.6; Aspartate Amino Transferase 21 U/L (15-37); BUN Creatinine Ratio 20.6; Bilirubin Total 1.6 mg/dL (0.2-1.0); Calcium 9.8 mg/dL (8.5-10.1); Carbon Dioxide 28.7 mmol/L (21.0-32.0); Chloride 100 mmol/L (98-107); Chol HDL Ratio 3.5; Cholesterol 175 mg/dL (<=200); Estimated GFR (African America >60 (>=60 mL/min/1.73m^2); Estimated GFR (Non-African Ame >60 (>=60 mL/min/1.73m^2); Free T3 2.64 pg/mL (2.18-3.98); Globulin 3.8 g/dL; Glucose 86 mg/dL (74-106); HDL Cholesterol 50 mg/dL (40-60); LDL Cholesterol Calculated 107.8 mg/dL; Potassium 3.3 mmol/L (3.5-5.1); Sodium 138 mmol/L (136-145); Thyroid Stimulating Hormone 1.589 uIU/mL (0.358-3.740); Total Protein 7.6 g/dL (6.4-8.2); Triglycerides 86 mg/dL (<=150); VLDL CHOLESTEROL 17.2 mg/dL
[2025-04-21 10:53] LABS: Prostate Specific Antigen Scrn 1.36 ng/mL (<=4.00)
[2025-04-21 10:59] LABS: Estimated Average Glucose 111 mg/dL; Glycohemoglobin A1C 5.5 % (4.5-6.2)
[2025-04-22 04:07] LABS: Insulin 20.8 uIU/mL (2.6-24.9)
== END 2025-04-21 07:48 | disposition home or self-care (01) ==
PROVIDERS: PCP Family Medicine; Visit Provider Family Medicine
DX: Z00.00 Encounter for general adult medical examination without abnormal findings (principal); M54.6 Pain in thoracic spine
CPT/HCPCS: 36415; 72072; 80053; 80061; 83036; 83525; 84436; 84443; 84481; 85025; G0103

== ENCOUNTER 2025-05-26 07:51 | Outpatient (OUT) | payer OTHER, SELFPAY ==
--- OUTSIDE RECORDS SUMMARY | 2025-05-26 07:57 | XMS_ITS | CCD ---
Author Organization [facility] Care Team Providers Care Freelance Director Name Role Phone Unavailable Unavailable DR AVI [...] Care Provider MD Rell Adamson Attending Provider [phone] Avi Yepez Primary Care Unavailable Rell Adamson Attending Unavailable Rell Adamson Admitting Unavailable Rell ADAMSON Attending Unavailable Rell ADAMSON Attending Unavailable Rell ADAMSON Attending Unavailable aJm LANDA, Evelyne Bradley Attending Unavailable RICHARD BENITEZ Attending Unavailable RICHARD BENITEZ Attending Unavailable CJ MOHAMUD Attending Unavailable Avi Yepez MD Primary Care Provider CAR CUELLAR Attending Lacie THOMAS JR., ELIAS Saucedo Attending Wes THOMAS JR., ELIAS Saucedo Attending Wes THOMAS JR., ELIAS Saucedo Referring Wes THOMAS JR., ELIAS Saucedo Attending CAR Fox Attending MARIA E Whitney Attending CAR Ceballos Referring Unavailable CAR CUELLAR Attending Unavailable CAR CUELLAR Attending Unavailable Allergies Allergy Classification Reported Allergen(s) Allergy Type Date of Onset Reaction(s) Facility (20 sources) Amoxicillin; Translations: [amoxicillin] Drug Allergy 0 Hives, Rash [facility] (1 source) Amoxicillin Drug Allergy [facility] Repository (1 source) traMADol Drug Allergy [facility] (3 sources) Penicillin; Translations: [penicillin] Drug Allergy Weal (disorder) [facility] General [facility] [place] (20 sources) traMADol; Translations: [TRAMADOL] Drug Allergy 4 Unknown [facility] Healthcare (1 source) Amoxicillin Drug Allergy 0 [facility] Repository Medications Current Medications Medication Drug Class(es) Dates Sig (Normalized) Sig (Original) acetaminophen 325 mg / HYDROcodone bitartrate 5 mg oral tablet (14 sources) Opioid Agonist Start: 07-08-2024 take 1 tablet by mouth twice daily as needed for pain [place] 325 mg-5 mg oral tablet 1 tab(s), Oral, BID as needed for pain, Refill(s) 0 Start Date: 07/08/24 Status: Ordered Start: 03-29-2024 End: 06-21-2024 take 1 tablet by mouth every twelve hours HYDROcodone-acetaminophen ([place]) 5-325 MG tablet Take 1 tablet by mouth every 12 (twelve) hours 03/29/2024 06/21/2024 Discontinued (Therapy completed) Start: 09-26-2020 End: 07-31-2024 take 1 tablet by mouth every six hours for pain HYDROcodone-acetaminophen ([place]) 5-325 MG tablet Indications: Post-op pain Take 1 tablet by mouth every 6 (six) hours if needed for severe pain for up to 3 days 12 tablet 07/28/2024 07/31/2024 Active [place] 5-325 MG T ABS TAKE 1 TABLET [...] Start: 05-27-2023 take 1 capsule by mo [facility] twice daily gabapentin (NEURONTIN) 300 mg capsule Take 300 mg by mouth twice daily. 0 05/27/2023 Active take 1 capsule by mo ut twice daily Gabapentin 300 MG Oral Capsule [...] tablet (12 sources) Phosphodiesterase 5 Inhibitor Start: End: 024 take 1 tablet by mouth [...] [Coronary atherosclerosis of unspecified type of vessel, [place] or graft] Onset: 03-04-2025 07-08-2024 Chronic Diabetes [...] Range Facility Office Visiton 03-04-2025 Follow-up visit [id number] Kim Nichols 1960 M Date Provider Department Center 03/04/2025 [id number] MOHAMUD CARD [facility] Family History Problem Relation Age of Onset Brain Aneurysm Mother Stroke Father Heart attack Sister Family Status - Relation Status Age at Mother Father Sister Level of Service:35396 [place] OFFICE/OUTPATIENT ESTABLISHED LOW MDM 20 MIN Reason for Visit and Comments: Coronary Artery Disease [187] - Denies SOB. Atrial Fibrillation [80] - On Eliquis, denies bleeding. Denies palpitations and syncope. Hyperlipidemia [182] - Had lipid panel in May 2024. On rosuvastatin. Hypertension [247144] Chest Pain [766890] - Intermittent, blames his hiatal hernia and back pain. [facility] No Panel Informationon 02-18 ANKITA [place]ap[place] 02/18/2025 [...] and draped in the usual sterile fashion. [facility] Healthcare Office Visiton 09-09-2024 Follow-up visit [id number] Kim Nichols 1960 M Date Provider Department Center 09/09/2024 3848-RICHARD BENITEZ RAVIN [facility] Family History Problem Relation Age of Onset Brain Aneurysm Mother Stroke Father Heart attack Sister Family Status - Relation Status Age at Mother Father Sister Level of Service:38406 [place] OFFICE/OUTPATIENT ESTABLISHED LOW MDM 20 MIN Normal [facility] Ambulatory Visit Summaryon 1 11-08-2023 Ambulatory Visit Summary Ambulatory Visit Summary KIM NICHOLS :1960 Visit Date:09/08/2024 Ambulatory Visit Instructions Your Care Team Attending Physician - SNOW LANDA, Rell Marr Primary Care Physician - Avi Yepez MD This Is Your Medications List acetaminophen-hydrocodone ([place] 325 mg-5 mg oral tablet) apixaban (Eliquis [...] What How Much When Instructions Unchanged acetaminophen-hydrocodone ([place] 325 mg-5 mg oral tablet) 1 Tablets [...] for choosing us for your care. [facility] General Surgery Office/Clini c Noteon [...] Tab, 25 mg= 1 tab(s), Oral, BID [place] 325 mg-5 mg oral tablet, 1 tab(s), [...] virus vaccine, inactivated 09/12/2023 Recorded SARS-CoV-2 (COVID-19) [id number] 10/14/2022 Recorded influenza virus vaccine, inactivated 10/03/2022 Recorded SARSCoV2 mRNA(ggclfqgar-zzhv-myfnde) vac 03/22/2022 Recorded SARS-CoV-2 (COVID-19) mRNA BNT-162b2 vax 09/03/2021 Recorded influenza virus vaccine, inactivated 08/25/2021 Recorded SARS-CoV-2 (COVID-19) mRNA BNT-162b2 vax 02/13/2021 Recorded SARS-CoV-2 (COVID-19) mRNA BNT-162b2 vax 01/20/2021 Recorded SARS-CoV-2 (COVID-19) mRNA BNT-162b2 vax 01/13/2021 Recorded SARS-CoV-2 (COVID-19) mRNA BNT-162b2 vax 12/23/2020 Recorded influenza virus vaccine, inactivated 08/28/2020 Recorded Normal [facility] Comment on above: Result Comment: Elec tronically Signed By: SNOW LANDA, Rell Mccormick\Date and Time Signed: 09/08/24 16:32 EST Reminderson 08-26-2024 Reminders Reminders From: María Ayala LPN To: GSN - Clinical; Sent: 08/26/2024 11:53:39 EDT Show up: 07/26/2034 07:00:00 EDT Subject: colonoscopy recall Due Date/Time: 08/25/2034 07:00:00 EDT Reminder/Recall Patient due for screening colonoscopy 08/25/2034. Normal [facility] Pathology Request for Lab Co rpon 08-25-2024 Pathology Request for Lab Le Normal [facility] Comment on above: Order Comment: PATHO LOGY GI SPECIMEN Result Comment: See report. Scanned copy available in EMR. PERFORMED BY: [place] [address] PATHOLOGIST PHYSICAL DAMAGE APPRAISER MICHAEL LEMUS M.D. Performed By: #### P ATH TO [facility] #### [address] Ambulatory Visit Summaryon 0 07-20-2024 Ambulatory [...] prescribing physician if questions or concerns acetaminophen-hydrocodone ([place] 325 mg-5 mg oral tablet) apixaban (Eliquis [...] What How Much When Instructions Unchanged acetaminophen-hydrocodone ([place] 325 mg-5 mg oral tablet) 1 Tablets [...] for choosing us for your care. Normal [facility] ALL CBC WITH AUTO DIFFon BASOPHILS ABSOLUTE AUTO 0.0 [facility] Healthcare Basophils/100 WBC (Bld) 0.5 % 0.2 - 2.0 % [facility] Eosinophils/100 WBC (Bld) 3.0 % 0.9 - 7.0 % [facility] Erythrocyte distribution width (RBC) [Ratio] 13.9 % 11.0 - 15.0 % [facility] Hematocrit (Bld) [Volume fraction] 46.2 % 42.0 - 54.0 % [facility] Hemoglobin (Bld) [Mass/Vol] 15.6 g/dL 14.0 - 18.0 g/dL [facility] IMMATURE GRANULOCYTES ABS AUTO 0.03 [facility] Immature granulocytes/100 WBC (Bld) 0.5 % 0.0 - 0.5 % [facility] LYMPHOCYTES ABSOLUTE AUTO 1.4 [facility] Lymphocytes/100 WBC (Bld) 22.3 % 20.5 - 60.0 % [facility] MCH (RBC) [Entitic mass] 28.9 pg 25.9 - 34.0 pg NOM[facility] MCHC (RBC) [Mass/Vol] 33.8 g/dL 29.9 - 35.2 g/dL [facility] Healthcare MCV (RBC) [Entitic vol] 85.7 fL 80.0 - 94.0 fL [facility] MONOCYTES ABSOLUTE AUTO 0.7 [facility] Monocytes/100 WBC (Bld) 11.6 % 1.7 - 12.0 % [facility] NEUTROPHILS ABSOLUTE AUTO 4.0 [facility] Neutrophils/100 WBC (Bld) 62.1 % 43.0 - 75.0 % [facility] Platelet mean volume (Bld) [Entitic vol] 10.5 fL 9.5 - 13.5 fL [facility] Healthcare TBH EO # 0.2 [facility] TB PLT 246 [facility] TBH RBC 5.39 [facility] Healthcare TB WBC 6.4 [facility] Healthcare [facility] Healthcare Office Visiton 06-11-2024 Follow-up visit [id number] Kim Nichols 1960 M Date Provider Department Center 06/11/2024 3848-RICHARD BENITEZ CARD [facility] Family History Problem Relation Age of Onset Brain Aneurysm Mother Stroke Father Heart attack Sister Family Status - Relation Status Age at Mother Father Sister Level of Service:63318 [place] OFFICE/OUTPATIENT NEW MODERATE MDM 45 MINUTES Reason for Visit and Comments: New Patient [Other] - CHEST PAIN/AFIB [facility] CNOVon 2023 CNOV Office Visit (SPSLUH ) KIM NICHOLS ([id number]) 1960 M Date Time Provider Department 08/04/23 [...] opioids Medications: See medication reconciliation list in [facility] MEDICATIONS: Gabapentin, [place], Tylenol Have you ever seen a pain [...] issues. 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 [facility] 07-08-2023 [facility] Telephone (SPNMMN) KIM NICHOLS ([id number]) 1960 M Date Time Provider Department 07/08/23 SHAISHANNAN NIKOLAY G SPNMMN During your visit today, we recorded the following information about you: Stacy Gallagher RN 07/08/2023 12:56 PM Signed Post Spine Injection phone call: [phone] on 07/08/23 Patient denies fever, chills, new [...] appointment 2-4 weeks post procedure by calling [phone] Patient does not have any questions or [...] 07/08/23 Normal [facility] HISTORY PHYSICALon HISTORY PHYSICAL HNO ID: [id number] Author: Sherice Galvin APRN.SUPERVISOR ALUMINUM FABRICATION Service: ? Author Type: Nurse Practitioner Type: [...] AM Normal [facility] OPERATIVE NOon 07-01-2023 OPERATIVE NO HNO ID: [id number] Author: Nikolay Camp DO Service: Physical Medicine AND Rehabilitation Author Type: Physician Type: Operative Report Filed: 07/01/2023 9:40 AM Note Text: PROCEDURE REPORT Surgery/Procedure Date: July 01, 2023 Interventionalist: Nikolay Camp DO Procedure(s): Left L5 transforaminal epidural steroid injection Pre-Op/Pre-Procedure Diagnosis: Lumbar radiculopathy Post-Op Diagnosis: same SUBJECTIVE: Kim Nichols is a 62 year old male, who presents to the [facility] for a left L5 transforaminal epidural steroid injection. This is his first (1) procedure. 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 Pain is [...] if any side effects are noted. Kim Esperanzaluisfayamaya was transferred to the recovery room and is to be discharged home in stable condition. Nikolay Camp DO Normal [facility] 06-26-2023 [facility] Telephone (SPNMMN) ESPERANZAKIM SEGURA ([id number]) 1960 M Date Time Provider Department 06/26/23 NIKOLAY CAMP [facility] During your visit today, we recorded the following information about you: Oscar Rollins LPN 06/26/2023 9:20 AM Signed Phoned patient and message left for Kim to confirm appointment for Kim Nichols for spine procedure on 07/01/2023. Patient notified that [place] will call patient the night before with the time to arrive for injection. Patient verbalized understanding of the following: -Provided education on spine procedure and answered questions related to spine injection procedure. -Client Administrator is needed to drive patient home. -NPO [...] to report. Diabetic: No Patient given number [phone], spine injections schedulers, if there is any [...] Encounter Status:Closed by OSCAR ROLLINS on 06/26/23 Normal [facility] CNOVon 06-02-2023 CNOV Office Visit (SPNSMN ) KIM NICHOLS ([id number]) 1960 M Date Time Provider Department 06/02/23 1:40 PM DARREN ELIZABETH SPNSMN During your visit today, we recorded the following information about you: Pulse Respiration Blood pressure Weight 63/minute 18/minute 128/84 117 kg Height 1.829 m Darren Elizabeth APRN.SUPERVISOR ALUMINUM FABRICATION 06/03/2023 1:01 PM Signed SPINE SURGERY OUTPATIENT [...] with him pain. He also is prescribed [place] for breakthrough pain which he only takes [...] included)... Normal [facility] Office Visit (Cardiology)on 05-13-2023 Follow-up visit Diagnoses/Problems Assessed Coronary disease (414.00) (I25.10) Essential hypertension, benign (401.1) (I10) Hyperlipidemia (272.4) (E78.5) Class 2 obesity with body mass index (BMI) of 36.0 to 36.9 in adult (278.00,V85.36) (E66.9,Z68.36) Never a smoker Orders Class 2 obesity with body mass index (BMI) of 36.0 to 36.9 in adult Healthy Weight Tips; Status:Complete - Retrospective Authorization; Done: [id number] Some eating tips that can help you lose weight.; Status:Complete - Retrospective Authorization; Done: [id number] Coronary disease, Hyperlipidemia Renew: Aspirin EC Low Dose 81 MG Oral Tablet Delayed Release; TAKE 1 TABLET DAILY DIRECTED Hyperlipidemia Renew: Rosuvastatin Calcium 20 MG Oral Tablet; take 1 tablet by mouth at bedtime SocHx: Never a smoker Tobacco Use Screening; Status:Complete; Done: [id number] Patient Instructions Please bring all medicines, vitamins, [...] MG Oral CapsuleTAKE 1 CAPSULE TWICE DAILY. [place] 5-325 MG TABSTAKE 1 TABLET EVERY 4 [...] negative for complaint. Vitals Vital Signs Recorded: [id number] 11:22AM Heart Rate64, R Radial Jpbuuzne480, RUE, Sitting Xznbspsip03, RUE, Sitting Height6 ft Abamfx258 lb BMI Rvyavxgsml04.21 kg/m2 BSA Calculated2.41 Tobacco Useb) No PHQ-2 [...] no hep (more content not included)... Normal [facility] Tobacco Screening.on 023 Adult depression screening assessment No -[facility] [address] DO Work Phone: Tobacco use status CP b) No -[facility] [address] DO Work Phone: Tobacco Screening.on 022 Adult depression screening assessment No [facility] [address] DO Work Phone: Fall risk assessment c) Not medically indicated [facility] [address] DO Work Phone: Tobacco use status [facility] b) No MP-[facility] [address] DO Work Phone: H PYLORI ANTIBODY IGGon 11-28 H. PYLORI IGG ABS 0.45 Index Value Normal 0.00-0.79 [facility] Comment on above: Result Comment: Nega tive <0.80 Equivocal 0.80 - 0.89 Positive >0.89 Performed By: #### L IPID, TSH, T7, URIC, CMP #### [facility] [address] [place] [address] Dr. Conor Chan INSULINon 12-21-2021 Insulin 55.2 uIU/mL Critically high 2.6-24.9 [facility] Comment on above: Performed By: #### I NSULIN #### [facility] [address] [place] [address] Dr. Conor Chan TESTOSTERONE, TOTALon 2021 Testosterone [Mass/Vol] 380 ng/dL Normal 264-916 [facility] Comment on above: Result Comment: Adul t male reference interval is based on a population of healthy nonobese males (BMI <30) between 19 and 39 years old. Travon, et.al. JCEM 2017,102;[id number]. PMID: [id number]. Performed By: #### L IPID, TSH, T7, URIC, CMP #### [facility] [address] [place] [address] Dr. Conor Chan CBC AUTO DIFFon 12-20-2021 BASO # 0.0 103/ul Normal 0.0-0.1 [facility] Comment on above: Performed By: #### C BC #### [facility] [address] [place] [address] Dr. Conor Chan Basophils/100 WBC (Bld) 0.5 % Normal 0.2-2.0 [facility] Comment on above: Performed By: #### C BC #### [facility] [address] [place] [address] Dr. Conor Chan EO # 0.2 103/ul Normal 0.0-0.7 [facility] Comment on above: Performed By: #### C BC #### [facility] [address] [place] [address] Dr. Conor Chan Eosinophils/100 WBC (Bld) 3.5 % Normal 0.9-7.0 [facility] Comment on above: Performed By: #### C BC #### [facility] [address] [place] [address] Dr. Conor Chan Erythrocyte distribution width (RBC) [Ratio] 13.8 % Normal 11.0-15.0 [facility] Comment on above: Performed By: #### C BC #### [facility] [address] [place] [address] Dr. Conor Chan Hematocrit (Bld) [Volume fraction] 48.5 % Normal 42.0-54.0 [facility] Comment on above: Performed By: #### C BC #### [facility] [address] [place] [address] Dr. Conor Chan Hemoglobin (Bld) [Mass/Vol] 16.3 g/dL Normal 14.0-18.0 [facility] Comment on above: Performed By: #### C BC #### [facility] [address] [place] [address] Dr. Conor Chan IG # 0.02 10e3/ul Normal 0.00-0.03 [facility] Comment on above: Performed By: #### C BC #### [facility] [address] [place] [address] Dr. Conor Chan IG % 0.3 % Normal 0.0-0.5 [facility] Comment on above: Performed By: #### C BC #### [facility] [address] [place] [address] Dr. Conor Chan LYMPH # 1.4 103/ul Normal 1.2-3.8 [facility] Comment on above: Performed By: #### C BC #### [facility] [address] [place] [address] Dr. Conor Chan Lymphocytes/100 WBC (Bld) 21.7 % Normal 20.5-60.0 [facility] Comment on above: Performed By: #### C BC #### [facility] [address] [place] [address] Dr. Conor Chan MANUAL DIFF REQ NO Normal [facility] Comment on above: Performed By: #### C BC #### [facility] [address] [place] [address] Dr. Conor Chan MCH (RBC) [Entitic mass] 28.5 pg Normal 25.9-34.0 [facility] Comment on above: Performed By: #### C BC #### [facility] [address] [place] [address] Dr. Conor Chan MCHC (RBC) [Mass/Vol] 33.6 g/dL Normal 29.9-35.2 [facility] Comment on above: Performed By: #### C BC #### [facility] [address] [place] [address] Dr. Conor Chan MCV (RBC) [Entitic vol] 84.9 fL Normal 80.0-94.0 [facility] Comment on above: Performed By: #### C BC #### [facility] [address] [place] [address] Dr. Conor Chan MONO # 0.6 103/ul Normal 0.3-0.8 [facility] Comment on above: Performed By: #### C BC #### [facility] [address] [place] [address] Dr. Conor Chan Monocytes/100 WBC (Bld) 9.3 % Normal 1.7-12.0 [facility] Comment on above: Performed By: #### C BC #### [facility] [address] [place] [address] Dr. Conor Chan NEUT # 4.1 103/ul Normal 1.4-6.5 [facility] Comment on above: Performed By: #### C BC #### [facility] [address] [place] [address] Dr. Conor Chan Neutrophils/100 WBC (Bld) 64.7 % Normal 43.0-75.0 [facility] Comment on above: Performed By: #### C BC #### [facility] [address] [address] [address] Conor Chan Platelet mean volume (Bld) [Entitic vol] 9.8 fL Normal 9.5-13.5 [facility] Comment on above: Performed By: #### C BC #### [facility] [address] [address] [address] Conor Chan PLT 235 103/ul Normal 150-450 [facility] Comment on above: Performed By: #### C BC #### [facility] [address] [address] [address] Conor Chan RBC 5.71 106/ul Normal 4.70-6.10 [facility] Comment on above: Performed By: #### C BC #### [facility] [address] [address] [address] Conor Chan WBC 6.4 103/ul Normal 4.0-11.0 [facility] Comment on above: Performed By: #### C BC #### [facility] [address] [place] [address] Dr. Conor Chan FREE THYROXINE INDEX T7on FTI 2.89 Normal [facility] Comment on above: Performed By: #### L IPID, TSH, T7, URIC, CMP #### [facility] [address] [place] [address] Dr. Conor Chan T3U 34.0 % Normal 23.5-40.5 [facility] Comment on above: Performed By: #### L IPID, TSH, T7, URIC, CMP #### [facility] [address] [address] [address] Conor Chan T4 [Mass/Vol] 8.50 ug/dL Normal 5.53-11.00 [facility] Comment on above: Performed By: #### L IPID, TSH, T7, URIC, CMP #### [facility] [address] [place] [address] Dr. Conor Chan GLYCOHEMOGLOBIN A1Con 2021 ADA RECOMMENDATION ADA THERAPEUTIC TARG ET 6.0 - 7.0 ACTION SUGGESTED > 7.0 Normal [facility] Comment on above: Performed By: #### A 1C #### [facility] [address] [address] [address] Conor Chan Glucose [Mass/Vol] 126 mg/dL Normal [facility] Comment on above: Performed By: #### A 1C #### [facility] [address] [address] [address] Conor Chan HbA1c (Bld) [Mass fraction] 6.0 % Normal <=6.0 [facility] Comment on above: Performed By: #### A 1C #### [facility] [address] [place] [address] Dr. Conor Chan LIPID PROFILEon 12-20-2021 CHOL-HDL RATIO NORM SEE BELOW Normal [facility] Comment on above: Result Comment: 3.3 - 4.4 LOW RISK 4.4 - 7.1 AVERAGE RISK 7.1 - 11.0 MODERATE RISK >11.0 HIGH RISK Performed By: #### L IPID, TSH, T7, URIC, CMP #### [facility] [address] [address] [address] Conor Chan Cholesterol [Mass/Vol] 161 mg/dL Normal <=200 [facility] Comment on above: Performed By: #### L IPID, TSH, T7, URIC, CMP #### [facility] [address] [address] [address] Conor Chan Cholesterol in HDL [Mass/Vol] 50 mg/dL Normal [facility] Comment on above: Performed By: #### L IPID, TSH, T7, URIC, CMP #### [facility] [address] [address] [address] Conor Chan Cholesterol in LDL [Mass/Vol] 96.0 mg/dL Normal [facility] Comment on above: Performed By: #### L IPID, TSH, T7, URIC, CMP #### [facility] [address] [place] [address] Dr. Conor Chan Cholesterol.total/ Cholesterol in HDL [Mass ratio] 3.2 {ratio} Normal [facility] Comment on above: Performed By: #### L IPID, TSH, T7, URIC, CMP #### [facility] [address] [address] [address] Conor Chan HDL NORMAL > or = 60 mg/dl - LO W CARDIOVASCULAR RISK <40 mg/dl - HIGH CARDIOVASCULAR RISK Normal [facility] Comment on above: Performed By: #### L IPID, TSH, T7, URIC, CMP #### [facility] [address] [address] [address] Conor Chan LDL CALC NORMAL SEE BELOW Normal [facility] Comment on above: Result Comment: <100 mg/dl OPTIMAL 100 - 129 mg/dl NEAR OR ABOVE OPTIMAL 130 - 159 mg/dl BORDERLINE HIGH 160 - 189 mg/dl HIGH >190 mg/dl VERY HIGH Performed By: #### L IPID, TSH, T7, URIC, CMP #### [facility] [address] [address] [address] Conor Chan Triglyceride [Mass/Vol] 75 mg/dL Normal <=150 [facility] Comment on above: Performed By: #### L IPID, TSH, T7, URIC, CMP #### [facility] [address] [address] [address] Conor Chan VLDL CALC 15.0 mg/dL Normal [facility] Comment on above: Performed By: #### L IPID, TSH, T7, URIC, CMP #### [facility] [address] [address] [address] Conor Chan PROF 14(COMP METB)on 022 Albumin [Mass/Vol] 3.7 g/dL Normal 3.5-5.0 [facility] Comment on above: Performed By: #### L IPID, TSH, T7, URIC, CMP #### [facility] [address] [address] [address] Conor Chan Albumin/Globulin [Mass ratio] 0.9 {ratio} Normal [facility] Comment on above: Performed By: #### L IPID, TSH, T7, URIC, CMP #### [facility] [address] [address] [address] Conor Chan ALP [Catalytic activity/Vol] 58 U/L Normal 38-126 [facility] Comment on above: Performed By: #### L IPID, TSH, T7, URIC, CMP #### [facility] [address] [place] [address] Dr. Conor Chan ALT [Catalytic activity/Vol] 40 U/L Normal 21-72 [facility] Comment on above: Performed By: #### L IPID, TSH, T7, URIC, CMP #### [facility] [address] [place] [address] Dr. Conor Chan Anion gap [Moles/Vol] 5.5 mmol/L Normal [facility] Comment on above: Performed By: #### L IPID, TSH, T7, URIC, CMP #### [facility] [address] [place] [address] Dr. Conor Chan AST [Catalytic activity/Vol] 18 U/L Normal 17-59 [facility] Comment on above: Performed By: #### L IPID, TSH, T7, URIC, CMP #### [facility] [address] [place] [address] Dr. Conor Chan Bilirubin [Mass/Vol] 0.5 mg/dL Normal 0.2-1.3 [facility] Comment on above: Performed By: #### L IPID, TSH, T7, URIC, CMP #### [facility] [address] [place] [address] Dr. Conor Chan Calcium [Mass/Vol] 9.9 mg/dL Normal 8.4-10.2 [facility] Comment on above: Performed By: #### L IPID, TSH, T7, URIC, CMP #### [facility] [address] [place] [address] Dr. Conor Chan Chloride [Moles/Vol] 97 mmol/L Critically low 98-107 [facility] Comment on above: Performed By: #### L IPID, TSH, T7, URIC, CMP #### [facility] [address] [place] [address] Dr. Conor Chan CO2 [Moles/Vol] 30.7 mmol/L Critically high 22.0-30.0 [facility] Comment on above: Performed By: #### L IPID, TSH, T7, URIC, CMP #### [facility] [address] [place] [address] Dr. Conor Chan Creatinine [Mass/Vol] 1.04 mg/dL Normal 0.66-1.25 [facility] Comment on above: Performed By: #### L IPID, TSH, T7, URIC, CMP #### [facility] [address] [place] [address] Dr. Conor Chan EGFR-AF WALLISIAN >60 Normal >=60 [facility] Comment on above: Performed By: #### L IPID, TSH, T7, URIC, CMP #### [facility] [address] [place] [address] Dr. Conor Chan EGFR-NON AF WALLISIAN >60 Normal >=60 [facility] Comment on above: Performed By: #### L IPID, TSH, T7, URIC, CMP #### [facility] [address] [place] [address] Dr. Conor Chan Globulin (S) [Mass/Vol] 4.2 g/dL Normal [facility] Comment on above: Performed By: #### L IPID, TSH, T7, URIC, CMP #### [facility] [address] [place] [address] Dr. Conor Chan Glucose [Mass/Vol] 122 mg/dL Critically high 74-106 [facility] Comment on above: Performed By: #### L IPID, TSH, T7, URIC, CMP #### [facility] [address] [place] [address] Dr. Conor Chan Potassium [Moles/Vol] 3.2 mmol/L Critically low 3.4-5.0 [facility] Comment on above: Performed By: #### L IPID, TSH, T7, URIC, CMP #### [facility] [address] [place] [address] Dr. Conor Chan Protein [Mass/Vol] 7.9 g/dL Normal 6.1-8.2 [facility] Comment on above: Performed By: #### L IPID, TSH, T7, URIC, CMP #### [facility] [address] [place] [address] Dr. Conor Chan Sodium [Moles/Vol] 130 mmol/L Critically low 137-145 Th [facility] Comment on above: Performed By: #### L IPID, TSH, T7, URIC, CMP #### [facility] [address] [place] [address] Dr. Conor Chan Urea nitrogen [Mass/Vol] 15.0 mg/dL Normal 9.0-20.0 [facility] Comment on above: Performed By: #### L IPID, TSH, T7, URIC, CMP #### [facility] [address] [place] [address] Dr. Conor Chan Urea nitrogen/Creatinin e [Mass ratio] 14.4 mg/mg Normal [facility] Comment on above: Performed By: #### L IPID, TSH, T7, URIC, CMP #### [facility] [address] [place] [address] Dr. Conor Chan TSHon 12-20-2021 TSH 2.122 uIU/mL Normal 0.470-4.680 [facility] Comment on above: Performed By: #### L IPID, TSH, T7, URIC, CMP #### [facility] [address] [place] [address] Dr. Conor Chan TSH RANGE SEE BELOW Normal [facility] Comment on above: Result Comment: <0.3 4 UIU/ml HYPERTHYROID 0.34-5.60 UIU/ml EUTHYROID >5.60 UIU/ml HYPOTHYROID Performed By: #### L IPID, TSH, T7, URIC, CMP #### [facility] [address] [place] [address] Dr. Conor Chan URIC ACID SERUMon 12-20-2021 Urate [Mass/Vol] 7.3 mg/dL Normal 3.5-8.5 [facility] Comment on above: Performed By: #### L IPID, TSH, T7, URIC, CMP #### [facility] [address] [place] [address] Dr. Conor Chan XR LSPINE MIN 4 [...] by: OSCAR FRANCO Date: 2021-12-20 10:06 Normal [facility] Vital Signs Date Time Vital Sign Value Performing Clinician Facility 07-20-2024 13:29-0400 Blood Pressure Location Rell ADAMSON [facility] 07-20-2024 13:29-0400 Diastolic blood pressure 78 mm[Hg] Rell ADAMSON [facility] 07-20-2024 13:29-0400 Heart rate 72 /min Rell ADAMSON [facility] 07-20-2024 13:29-0400 Respiratory rate 16 /min Rell ADAMSON [facility] 07-20-2024 13:29-0400 Systolic blood pressure 116 mm[Hg] Rell ADAMSON [facility] 07-08-2024 09:47-0400 Body height 182.9 cm Car LUCIANO Work Phone: [facility] 07-08-2024 09:47-0400 Body mass index (BMI) [Ratio] 36.84 kg/m2 Car LUCIANO Work Phone: [facility] 07-08-2024 09:47-0400 Body weight 123.2 kg Car LUCIANO Work Phone: [facility] 2023 08:03-0400 Body height 182.9 cm Juan R Ling MD Work Phone: [facility] 2023 08:03-0400 Body weight 120.2 kg Juan R Ling MD Work Phone: [facility] 06-02-2023 13:26-0400 Body height 182.9 cm Darren Elizabeth SALVAGER HELPER.SUPERVISOR [employer] Work Phone: [facility] 06-02-2023 13:26-0400 Body weight 117.03 kg Darren Elizabeth SALVAGER HELPER.SUPERVISOR [employer] Work Phone: [facility] 06-02-2023 13:26-0400 Diastolic blood pressure 84 mm[Hg] Darren Elizabeth SALVAGER HELPER.SUPERVISOR [employer] Work Phone: [facility] 06-02-2023 13:26-0400 Heart rate 63 /min Darren Elizabeth SALVAGER HELPER.SUPERVISOR [employer] Work Phone: [facility] 06-02-2023 13:26-0400 Respiratory rate 18 /min Darren Elizabeth SALVAGER HELPER.SUPERVISOR [employer]ICATION Work Phone: [facility] 06-02-2023 13:26-0400 SaO2% (BldA) [Mass fraction] 95 % Darren Elizabeth SALVAGER HELPER.SUPERVISOR [employer]RICATION Work Phone: [facility] 06-02-2023 13:26-0400 Systolic blood pressure 128 mm[Hg] Darren Elizabeth SALVAGER HELPER.SUPERVISOR [employer] Work Phone: [facility] 05-13-2023 11:22-0400 Body height 182.88 cm Avi Archery Work Phone: [facility] 250 DO Work Phone: 05-13-2023 11:22-0400 Body mass index (BMI) [Ratio] 36.21 kg/m2 Avi Lauren Hoy Work Phone: [facility] DO Work Phone: 05-13-2023 11:22-0400 Body surface area Derived from formula 2.41 m2 Avi Lauren Hoy Work Phone: [facility] DO Work Phone: 05-13-2023 11:22-0400 Body weight 121.11 kg Avi Lauren Hoy Work Phone: [facility] DO Work Phone: 05-13-2023 11:22-0400 Diastolic blood pressure 78 mm[Hg] Avi M Hoy Work Phone: [facility] DO Work Phone: 05-13-2023 11:22-0400 Heart rate 64 /min Avi Lauren Hoy Work Phone: [facility] [facility] DO Work Phone: 05-13-2023 11:22-0400 Systolic blood pressure 132 mm[Hg] Avi M Hoy Work Phone: [facility] DO Work Phone: 05-07-2022 11:36-0400 Body height 182.88 cm Avi Lauren Hoy Work Phone: [facility] DO Work Phone: 05-07-2022 11:36-0400 Body mass index (BMI) [Ratio] 38.38 kg/m2 Avi M Hoy Work Phone: [facility] DO Work Phone: 05-07-2022 11:36-0400 Body surface area Derived from formula 2.47 m2 Avi Lauren Hoy Work Phone: [facility] [facility] DO Work Phone: 05-07-2022 11:36-0400 Body weight 128.37 kg Avi M Hoy Work Phone: [facility] DO Work Phone: 05-07-2022 11:36-0400 Diastolic blood pressure 72 mm[Hg] Avi M Hoy Work Phone: [facility] DO Work Phone: 05-07-2022 11:36-0400 Heart rate 66 /min Avi Aguilar Hoy Work Phone: [facility] DO Work Phone: 05-07-2022 11:36-0400 Systolic blood pressure 110 mm[Hg] Avi Aguilar Hoy Work Phone: [facility] DO Work Phone: Encounters Encounter Date Encounter Type Care Provider Facility Start: 04-20-2025 End: 04-20-2025 Bamboo flowsheet Jr. Elias Saucedo Stepvicenta DO Work Phone: [facility] Start: 04-20-2025 End: 04-20-2025 Bamboo flowsheet Elias Lewis Stepanic DO Work Phone: [facility] Start: 04-20-2025 End: 04-20-2025 Office outpatient visit 40 minutes Jr. Elias Saucedo Stepvicenta DO Work Phone: [facility] Comment on above: Acute pain of left k nee (Primary Dx); Arthritis of left knee Start: 04-20-2025 End: 04-20-2025 ambulatory ELIAS EDEN Not Available Start: 03-04-2025 End: 03-04-2025 ambulatory [facility] Start: 02-18-2025 End: 02-18-2025 Office outpatient visit 15 minutes Car Cuellar PA Work Phone: [facility] Comment on above: Acute pain of left k nee (Primary Dx); Arthritis of left knee; Knee instability, left Start: 02-18-2025 End: 02-18-2025 ambulatory CAR CUELLAR Not Available Start: 12-13-2024 End: 12-13-2024 ambulatory Evelyne Polk MD Facility:[facility] Start: 09-09-2024 End: 09-09-[address] [facility] Start: 09-08-2024 End: 09-08-2024 ambulatory Rell ADAMSON Facility:[facility] Start: 09-08-2024 End: 09-08-2024 Patient encounter procedure Rell ADAMSON [facility] Start: 08-30-2024 End: 08-30-2024 [...] 08-25-2024 ambulatory MD Avi Yepez Work Phone: [facility] Work Phone: Start: 08-25-2024 End: 08-25-2024 Departed Referred MD Avi Yepez Work Phone: [facility] Start: 08-25-2024 End: 08-25-2024 ambulatory Rell ADAMSON Facility:[id number] Start: 08-16-2024 End: 08-16-2024 Bamboo flowsheet Cra Cuellar PA Work Phone: [facility] [...] Start: 07-28-2024 End: 07-28-2024 Refill Corona Peng MARKET RESEARCH INTERVIEWER Work Phone: [facility] Comment on above: Post-op pain (Primar y Dx) Start: 07-20-2024 End: 07-20-2024 ambulatory Rell ADAMSON Facility:[facility] Start: 07-20-2024 End: 07-20-2024 Patient encounter procedure Rell Marr SNOW [facility] [place] Start: 07-19-2024 End: 07-19-2024 Bamboo flowsheet Maria E [place] [facility] Start: 07-19-2024 End: 07-19-2024 Bamboo flowsheet Maria E [place] [facility] Start: 07-19-2024 End: [...] Preprocedural examination done Car LUCIANO Work Phone: [facility] Start: 07-08-2024 End: 07-08-2024 ambulatory CAR CUELLAR Not Available Start: 07-05-20[facility] Start: 06-21-2024 End: 06-21-2024 Office outpatient visit 25 minutes Jr. Elias Thomas DO Work Phone: [facility] Comment on above: Internal derangement of left knee (Primary Dx) Start: 06-21-2024 End: 06-21-2024 ambulatory ELIAS EDEN Not Available Start: 06-11-2024 End: 06-11-[address] [facility] Start: 06-09-2024 Non-patient / Non-visit MD Indra Yepez Work Phone: [facility] Work Phone: Start: 05-10-2024 End: 05-10-2024 ambulatory ELIAS EDEN Not Available Start: 2023 End: 2023 ambulatory BILAL CHINA BUTT Facility:[facility] Start: 2023 End: 2023 Office outpatient new 30 minutes Bilal Chinaanjana Ling MD Work Phone: [facility] Comment on above: Meralgia paresthetic a of left side (Primary Dx); Chronic midline low back pain without sciatica Start: 08-01-2023 End: 08-01-2023 ambulatory Darren Elizabeth SALVAGER HELPER.SUPERVISOR [employer]RICATION Work Phone: [facility] Comment on above: Dr chong Cut me open Start: 07-01-2023 End: 07-01-2023 ambulatory NIKOLAY CAMP Facility:[facility] Start: 06-26-2023 Telephone encounter Nikolay Camp DO Work Phone: [facility] Comment on above: Preparations For Pro cedures (Pre-injection instructions) Start: 06-19-2023 Orders Only Nikolay Montgomery is DO Work Phone: Neurology Comment on above: Lumbar radiculopathy (Primary Dx); Displacement of lumbar intervertebral disc without myelopathy Start: 06-02-2023 End: 06-03-2023 ambulatory DARREN ELIZABETH Facility:[facility] Start: 06-02-2023 End: 06-02-2023 Patient encounter procedure Darren Elizabeth SALVAGER HELPER.SUPERVISOR [employer]RICATION Work Phone: [facility] Comment on above: Radiculopathy, lumba r region (Primary Dx); Lumbar disc herniation Start: 05-13-2023 Office outpatient vi sit 25 minutes Avi Yepez Work Phone: [facility] 250 DO Work Phone: Start: 05-13-[address] Reilly Nelson II Facility: Start: 05-06-2023 Chart abstracting None (Historical) Neurology Start: 12-16-2022 Rx Renewal Avi Yepez Work Phone: [facility] 250 DO Work Phone: Start: 07-17-2022 End: 07-17-2022 Departed Referred MD Avi Yepez Work Phone: [facility] [address] 250 Start: 05-07-2022 Office outpatient vi sit 25 minutes Avi Yepez Work Phone: [facility] 250 DO Work Phone: Start: 01-03-[address] AVI YEPEZ Facility :[facility] Start: 12-21-2021 Encounter for genera l adult medical examination without abnormal findings DR AVI YEPEZ [facility] Start: 12-20-2021 End: 12-21-[address] AVI YEPEZ Facility:[facility] Start: 12-20-2021 End: 12-21-2021 Encounter for general adult medical examination without abnormal findings DR AVI YEPEZ Facility:[facility] Start: 02-14-2022 Rx Renewal Reilly mcmahon MD Work Phone: [facility] 250 DO Work Phone: Procedures Date Procedure Procedure Detail Performing Clinician Start: 02-18-2025 Arthrocentesis aspir&/inj major jt/bursa w/o us Car LUCIANO Work Phone: Start: 08-25-2024 Colonoscopy Car LUCIANO Work Phone: Start: 08-25-2024 Colonoscopy Rell NILGia Start: 08-25-2024 Esophagogastroduodenoscopy Rell NILGia Start: 07-09-2024 ALL CBC WITH AUTO DIFF Car Grayson A Work Phone: Start: 07-17-2022 Radiologic examination of knee MD Puja Yepez Work Phone: Start: 12-20-[address] AVI YEPEZ Comment on above: Performed By: #### PSASC #### [facility] [address] [place] [address] Dr. Conor Chan Start: 06-09-2020 Total colonoscopy Reilly Nelson MD Work Phone: Start: 07-02-2019 End: 07-02-2019 Colonoscopy Darren Elizabeth APRN.SUPERVISOR [employer]RICATION Work Phone: Cardiac catheterization Will renetta Nelson MD Work Phone: Cardiac catheterization Jorge aegia NILL Cholecystectomy Reilly miranda MD Work Phone: Cholecystectomy Rell NILL Nasal septoplasty Rell MORALEZ Plan of Treatment Date Care Activity Detail Author Start: 08-25-2034 Screening for malign ant neoplasm of colon [facility] Start: 07-02-2029 Screening for malign ant neoplasm of colon [facility] Start: 12-20-2026 PROSTATE CANCER SCREENING DISCUSSION PROSTATE CANCER SCREENING DISCUSSION [facility] Start: 07-14-2025 End: 07-14-2025 Patient encounter procedure 07/14/2025 9:00 AM EDT Office Visit [facility] [address] [place] [phone] Car Cuellar, PA [address] [place] [address] [facility] Start: 06-17-2025 End: 06-17-2025 Patient encounter procedure 06/17/2025 9:00 AM EDT Office Visit [facility] [address] [place] [address] Car Cuellar, PA [address] [place] [address] [facility] Start: 04-20-2025 End: 04-20-2025 Patient encounter procedure 04/20/2025 8:30 AM EDT Office Visit [facility] [address] [place] [address] Jr. Elias Thomas DO [address] [place] [address] Arrived [facility] Comment on above: Arrived Start: 08-30-2024 End: 08-30-2024 Patient encounter procedure 08/30/2024 10:15 AM EST Office Visit [facility] [address] [place] [address] Car Cuellar, PA [address] [place] [address] S/P left knee arthroscopy (Primary Dx) [facility] Comment on above: S/P left knee arthro scopy (Primary Dx) Start: 08-25-2024 [facility] Start: 08-16-2024 End: 08-16-2024 Patient encounter procedure 08/16/2024 10:00 AM EDT Office Visit [facility] [address] [place] [phone] Car Cuellar, PA [address] [place] [address] S/P left knee arthroscopy (Primary Dx) [facility] Comment on above: S/P left knee arthro scopy (Primary Dx) Start: 08-12-2024 End: 08-12-2024 Patient encounter procedure 08/12/2024 9:00 AM EDT Office Visit [facility] [address] [place] [phone] Car Cuellar, PA [address] [place] [address] [facility] Start: 07-29-2024 End: 07-29-2024 Patient encounter procedure 07/29/2024 10:45 AM EDT Procedure Visit [facility] Jr. Elias Thomas DO [address] [place] [address] [facility] Start: 07-19-2024 End: 07-19-2024 ambulatory [facility] Comment on above: Internal derangement of left knee Start: 07-08-2024 End: 07-08-2025 CBC W Auto Differential panel - Blood CBC and differential Lab Routine Preop examination Expected: 07/08/2024 (Approximate), Expires: 07/08/2025 [facility] Work Phone: Comment on above: Expected: 07/08/2024 (Approximate), Expires: 07/08/2025 Start: 07-08-2024 End: 07-08-2024 Patient encounter procedure 07/08/2024 10:00 AM EDT Office Visit [facility] [address] [place] [phone] Car Cuellar, PA [address] [place] [address] Preop examination (Primary Dx); Internal derangement of left knee [facility] Comment on above: Preop examination (P rimary Dx); Internal derangement of left knee Start: 06-27-2024 Influenza vaccination Influenza Vacc ine (#1) [facility] Start: 06-27-2023 Influenza vaccination C [facility] Start: 05-13-2023 FUV, Provider: Reilly Nelson, Status: Pen, Time: 11:10 AM FUV, Provider: Reilly Nelson, Status: Pen, Time: 11:10 AM [facility] [employer] 250 DO Work Phone: Start: 10-27-2022 DEPRESSION ASSESSMENT DEPRESSION ASS ESSMENT [facility] Start: 05-17-2022 COVID-19 VACCINE (6 - Pfizer series) COVID-19 VACCINE (6 - Pfizer series) [facility] Start: 05-15-2022 FUV, Provider: Reilly Nelson, Status: Pen, Time: 2:00 PM FUV, Provider: Reilly Nelson, Status: Pen, Time: 2:00 PM [facility] [employer] 250 DO Work Phone: Start: 07-02-2020 Colonoscopy COLONOSCOPY [facility] Start: 07-02-2020 COLORECTAL CANCER SCREENING COLORECTAL CANCER SCREENING [facility] Start: 2016 Prostate Cancer Screening Discussion Prostate Cancer Screening Discussion [facility] Start: 2011 SHINGRIX VACCINE (1 of 2) SHINGRIX VACCINE (1 of 2) [facility] Start: 2006 COLOGUARD (FIT-DNA) COLOGUARD (FIT-D NA) [facility] Start: [address] COLONOGRAPHY [facility] Start: 2006 DIABETES SCREEN DIABETES SCREEN [facility] Start: 2006 Diabetes Screening Diabetes Screenin g [facility] Start: 2006 FECAL OCCULT BLOOD FECAL OCCULT BLOO D [facility] Start: 2006 SIGMOIDOSCOPY SIGMOIDOSCOPY [facility] Start: 1996 Lipid 1996 panel - Serum or Plasma Lipid Screening [facility] Start: 1996 LIPID SCREEN LIPID SCREEN [facility] Start: 1980 Urine microalbumin profile [facility] Start: 1979 HEPATITIS C SCREENING HEPATITIS C SC REETRACY [facility] Start: 1979 HIV SCREENING HIV SCREENING [facility] Start: 1961 Screening for malign ant neoplasm of colon [facility] End: 09-02-2024 Radex spine lumbosacral minimum 4 views XR LUMBAR MOTION 4V AP/LAT/ FLEX/EXT Radiology Routine Meralgia paresthetica of left side 1 Occurrences starting 2023 until 09/02/2024 [facility] Work Phone: Comment on above: 1 Occurrences starti ng 2023 until 09/02/2024 SPINE INTERVENTION PROCEDURE SPINE INTERVENTION PROCEDURE Procedures Routine Radiculopathy, lumbar region Lumbar disc herniation Ordered: 06/02/2023 [facility] Work Phone: Comment on above: Ordered: 06/02/2023 [facility] RACHAEL [facility] Immunizations Immunization Date Immunization Notes Care Provider Deepa rehman 09-12-2023 influenza virus vacc ine, unspecified formulation Stepanic DO Work Phone: [facility] 10-14-2022 Pfizer COVID-19 Vac Bivalent 30 MCG/0.3ML Intramuscular Suspension Avi Aguilar Hoy Work Phone: [facility] 10-03-2022 influenza, injectabl e, quadrivalent, preservative free Avi M Hoy Work Phone: [facility] 250 DO Work Phone: 10-03-2022 influenza virus vacc ine, unspecified formulation Darren Elizabeth SALVAGER HELPER.SUPERVISOR [employer] Work Phone: [facility] 03-22-2022 Comirnaty 30 MCG/0.3 ML Intramuscular Suspension Avi M Hoy Work Phone: [facility] DO Work Phone: 03-22-2022 Moderna COVID-19 Vac cine 100 MCG/0.5ML Intramuscular Suspension Avi M Hoy Work Phone: [facility] Comment on above: Series: 03-22-2022 SARS-CoV-2 mRNA (zyudyrihfgo-semv-ecsgpb e) vaccine Rell ADAMSON [facility] 03-22-2022 zoster vaccine recombinant Avi Yepez Work Phone: [facility] [employer] 250 DO Work Phone: 09-03-2021 Pfizer-BioNTech COVI D-19 Vacc 30 MCG/0.3ML Intramuscular Suspension Avi Yepez Work Phone: [facility] [facility] 08-25-2021 influenza virus vacc ine, unspecified formulation Rell ADAMSON [facility] 08-25-2021 influenza, injectabl e, quadrivalent, preservative free Avi Yepez Work Phone: [facility] 250 DO Work Phone: 08-25-2021 zoster vaccine recombinant Avi Yepez Work Phone: [facility] 250 DO Work Phone: 02-13-2021 Pfizer-BioNTech COVI D-19 Vacc 30 MCG/0.3ML Intramuscular Suspension Avi Yepez Work Phone: [facility] 01-20-2021 SARS-CoV-2 (COVID-19 ) mRNA BNT-162b2 vax Rell ADAMSON [facility] 01-13-2021 Pfizer-BioNTech COVI D-19 Vacc 30 MCG/0.3ML Intramuscular Suspension Avi Yepez Work Phone: [facility] 12-23-2020 Pfizer-BioNTech COVI D-19 Vacc 30 MCG/0.3ML Intramuscular Suspension Avi Yepez Work Phone: [facility] 08-28-2020 influenza, injectabl e, quadrivalent, preservative free Avi Aguilar Hoy Work Phone: [facility] 250 DO Work Phone: 08-28-2020 influenza virus vacc ine, unspecified formulation Juan R Ling MD Work Phone: [facility] Payers Date Payer Category Payer Self-pay [id number] [phone] [id number] 2021 Private Health Insurance [id number] 2007 Managed Care HMO (unspecified) [id number] 1961 Unknown [id number] 2.16.840.1.822127.3.579.2.593 1961 Unknown [id number] 2.16.840.1.823201.3.579.2.593 1961 Unknown [id number] 2.16.840.1.430034.3.579.2.356 1961 Unknown [id number] 2.16.840.1.526554.3.579.2.727 1961 Unknown [id number] 2.16.840.1.843634.3.579.2.727 1961 Unknown [id number] 2.16.840.1.176234.3.579.2.727 1961 Unknown [id number] 2.16.840.1.504513.3.579.2.196 1961 Unknown [id number] 2.16.840.1.911283.3.579.2.125 9 1961 Unknown [id number] 2.16.840.1.819046.3.579.2.125 9 1961 Unknown [id number] 2.16.840.1.016371.3.579.2.125 9 1961 Unknown [id number] 2.16.840.1.749979.3.579.2.125 9 1961 Unknown [id number] 2.16.840.1.642679.3.579.2.125 9 1961 Unknown [id number] 2.16.840.1.760793.3.579.2.125 9 1961 Unknown [id number] 2.16.840.1.352168.3.579.2.125 9 1961 Unknown [id number] 2.16.840.1.060806.3.579.2.125 9 1961 Unknown [id number] 2.16.840.1.875312.3.579.2.125 9 1959 Private Health Insurance [id number] 1959 Self-pay [id number] Unknown Unknown [facility] [id number] Unknown [id number] [id number] Social History Date Type Detail Facility Start: 06-02-2023 End: 04-20-2025 Consumes alcohol Consumes alcohol [facility] Comment on above: socially; occasional; Start: 09-28-2020 End: 05-10-2024 Tobacco smoking status DCIS Never smoked tobacco (finding) [facility] Start: 1960 Sex Assigned At Male F [facility] Tobacco smoking stat us DCIS Tobacco smoking consumption unknown [facility] Start: 1960 Sex Assigned At Not on file [facility] Start: 06-02-2023 End: 04-20-2025 Gender identity Not on file [facility] Start: 06-02-2023 End: 05-10-2024 Tobacco use and exposure Smokeless tobacco non-user [facility] National Score (1-10 0), lower number is lower risk 62 [facility] Start: 07-28-2023 Gender identity Identifies as male gender (finding) [facility] Start: 07-28-2023 Sexual orientation Heterosexual (fin ding) [facility] Start: 07-08-2024 End: 04-20-2025 Alcoholic beverage intake Current drinker of alcohol (finding) [facility] Start: 05-10-2024 Alcohol Comment 1/WK [facility] Functional Status Date Assessment Result Facility 09-08-2024 Functional Status N/A [facility] 07-20-2024 Functional Status N/A [facility] Clinical Notes 05-06-2023 to 04-20-2025 Jr. Elias Thomas, DO - 04/20/2025 8:30 AM Cahd Cuellar, ANKITA - 02/18/2025 9:00 AM ANKITA Burgos - [...] or the patient requires discharge to a care home facility, the patient may require to have additional inpatient hospital stay days following the surgery. Physical therapy is contraindicated in this patient''s case because of the qtzc-aw-icsl articulation of the patient's knee.. Questions answered in laymen terms at the bedside. The diagnosis, home exercise plan and any ongoing restrictions/ recommendations reviewed. If unable to be reached in office, I recommend evaluation at nearest Emergency Room if any symptoms worsened or new symptoms develop for requiring urgent evaluation. Visit was preformed using [employer] pilot speech recognition. documented in this encounter [facility] 03-04-2025 Note [place] [facility] Subjective Kim Nichols is a 64 [...] and he had carotid stenosis, sister had CO, mother had brain aneurysm ROS All systems [...] twice a day., Disp: , Rfl: HYDROcodone-acetaminophen ([place]) 5-325 mg tablet, Take 1 tablet by [...] and symmetric in (more content not included)... [facility] 02-18-2025 History of Present illness Narrative Associated [...] Current pain management routine includes taking 2 [place] before activity, which is not recommended. Discussed [...] requiring urgent evaluation. Visit was preformed using [employer]fer[employer] pilot speech recognition. documented in this encounter [facility] 09-09-2024 Note Cardiology Clinic No te [...] as needed Richard Benitez MD Interventional Cardiology [facility] 08-30-2024 History of Present illness Narrative [...] requiring urgent evaluation. documented in this encounter [facility] 08-16-2024 History of Present illness Narrative [...] symptoms from before surgery.. Pt going to [place] in December.. pt denies any catching or [...] requiring urgent evaluation. documented in this encounter [facility] 08-16-2024 Instructions ANKITA Stapleton - 08/16/2024 [...] than 10 mins documented in this encounter [facility] 07-28-2024 Telephone encounter Note Post op pain rx. PDMP reviewed [facility] 07-28-2024 Miscellaneous Notes Post op pain rx. PDMP reviewed documented in this encounter [facility] 07-20-2024 Note General Surgery Offi ce/Clinic [...] abdominal operations significant for cholecystectomy; last colonoscopy 2019 with sigmoid diverticulosis, one remote EGD with [...] tab(s), Oral, Ivy (more content not included)... [facility] Comment on above: Result Comment: Elec tronically [...] sign below. Date: documented in this encounter [facility] 07-08-2024 History of Present illness Narrative [...] Answer: No Ambulatory referral to Physical Therapy [facility] ; PLEASE CALL PATIENT TO SCHEDULE, THANK YOU (PAT W/OUR OFFICE 07/08 @10AM) CRUTCH TRAIN AND [...] SX INSTRUCTIONS GIVEN TODAY 07/08 @10AM - [place] CARDIAC CLEARANCE ; OBTAINED - CASEY PROTOCOL PT REFERRAL SENT ; CRUTCH TRAIN AND DISPENSE NPAR ([id number], [id number]) Follow up for 08/12 @9AM W/AMANDA IN [place]. documented in this encounter [facility] 06-21-2024 History of Present illness Narrative Images from the original note were not included. HISTORY OF PRESENT ILLNESS: EST PT Kim Nichols is an 63 y.o. @ male. EST PT RECHECK LT KNEE PAIN - POSSIBLY DISCUSS SURGERY- PT WAS GETTING A CARDIAC WORK UP- PT DID SEE DR BENITEZ (BULK RECEIVER) 06/11/24; PT STATES HE IS CLEARED (OFFICE NOT IS UNDER ENCOUNTER) PT STATES HE WAS ADMITTED TO [facility] FOR A-FIB X 1DAY ~05/17/24 XRAY LT KNEE EPIC 05/10/24 XRAY LT KNEE [facility] 03/12/24 MRI LT KNEE [facility] 04/28/24 CORTISONE INJ 03/2024; TEMP RELIEF - [...] Use: Low Risk (06/11/2024) Re[facility] from [facility] Patient History Smoking Tobacco Use: Never Smokeless [...] states that he was cleared per his workforce management coordinator ; we will need to obtain clearance [...] Elias Thomas D.O. documented in this encounter [facility] 06-11-2024 Note Cardiology Clinic No te [...] is atypical in nature. Patient had a [employer] myocardial perfusion imaging which demonstrates a fixed [...] without additional cardiac (more content not included)... [facility] 2023 Note HNO ID: [id number] Author: Juan R Ling MD Service: ? [...] issues. 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 Denies any [...] BICEPS TRICEPS DELTS Wrist Ext Wrist Flex Twister Operator HI R 5 5 5 5 5 [...] degenerative changes Xray (more content not included)... [facility] 2023 Note HNO ID: [id number] Author: Bossamn Saunders Service: ? Author Type: ? Type: [...] opioids Medications: See medication reconciliation list in [facility] MEDICATIONS: Gabapentin, [place], Tylenol Have you ever seen a pain [...] routine daily living activities? No Bossman Escoto [facility] 2023 History of Present illness Narrative [...] issues. 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 Author Type: Nurse Practitioner Type: Progress Notes Filed: 08/01/2023 1:30 PM Note Text: SPINE SURGERY ESTABLISHED VISIT This is a virtual visit using [employer] Video Visit. It required patient-provider interaction for the medical decision making as documented below. DATE OF SERVICE: 08/01/2023 DATE OF LAST VISIT: 06/02/2023 SUBJECTIVE: HPI:Kim Nichols is a 62 year old male presenting via virtual vist s/p Left L5 transforaminal epidural steroid injection on 07/01/[address] Camp. Virgil great initially and for the first few days after injection, symptoms returned shortly after. Patient has increased his Gabapentin 300 mg from BID to TID and is feeling good today. 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 SIGNATURE: Darren Elizabeth APRN.CNP PATIENT NAME: Kim Nichols DATE: August 01, 2023 TIME: 12:53 PM PAGER: [facility] 06-26-2023 Miscellaneous Notes Phoned patient and message left for Kim to confirm appointment for Kim Nichols for spine procedure on 07/01/2023. Patient notified that [facility] will call patient the night before with the time to arrive for injection. Patient verbalized understanding of the following: -Provided education on spine procedure and answered questions related to spine injection procedure. -Client Administrator is needed to drive patient home. -NPO [...] to report. Diabetic: No Patient given number [phone], spine injections schedulers, if there is any need to reschedule/ change appointment during normal business hours. Active MyChart users were informed to read Adzunahart procedure instructions prior to appointment. AMBULATORY PATIENT [...] POST INJECTION INSTRUCTIONS documented in this encounter [facility] 06-02-2023 Note HNO ID: [id number] Author: Darren Elizabeth APRN.KIRILL Service: ? Author [...] with him pain. He also is prescribed [place] for breakthrough pain which he only takes [...] not included)... [facility] 06-02-2023 History of Present illness Narrative SPINE [...] with him pain. He also is prescribed [place] for breakthrough pain which he only takes [...] which included preparing to see the patient, [id number]-[id number] patient care, completing clinical documentation, obtaining and/or reviewing separately obtained history, performing a medically appropriate examination, counseling and educating the patient/family/caregiver, independently interpreting results (not separately reported), and communicating results to the patient/family/caregiver. SIGNATURE: Darren Elizabeth APRN.CNP PATIENT NAME: Kim Nichols DATE: June 02, 2023 TIME: 1:57 PM PAGER: documented in this encounter [facility] 05-14-2023 Note HNO ID: [id number] Author: Ember Delatorre PA-C Service: ? Author Type: Physician Director Of Institutional Research Type: Progress Notes Filed: 05/14/2023 4:17 PM Note Text: Per Triage: Kim Nichols is a 62 year old male that requests evaluation of lumbar spine. Per review, they have symptoms of back and LLE pain. Positive for numbness. CMT: Medication: Gabapentin, Tylenol, [place] Studies (Reports unless indicated) MRI Lumbar: L4/5 moderate left foramen narrowing which may contribute to patient's symptoms 2. L5/S1 disc protrusion without significant canal or foramen narrowing. Disposition: Please schedule with surgical SANDY. Consider if injection is appropriate or on effective dose of Neurontin. Also see if symptoms correlate with imaging. [facility] 05-14-2023 History of Present illness Narrative Per Triage: Kim Nichols is a 62 year old male that requests evaluation of lumbar spine. Per review, they have symptoms of back and LLE pain. Positive for numbness. CMT: Medication: Gabapentin, Tylenol, [place] Studies (Reports unless indicated) MRI Lumbar: L4/5 moderate left foramen narrowing which may contribute to patient's symptoms 2. L5/S1 disc protrusion without significant canal or foramen narrowing. Disposition: Please schedule with surgical SANDY. Consider if injection is appropriate or on effective dose of Neurontin. Also see if symptoms correlate with imaging. Patient name: Kim Nichols Are you being referred by a [place] for Spine Health Provider or Pain Management Provider at [facility]? No If answer is YES [...] facility where the MRI/CT/myelogram was completed: [facility] [address] [place] [address] MRI/CT/myelogram viewable in Epic: No If not, please provide [phone] to fax in imaging reports for review. [...] Additional Comments Hydrocodone documented in this encounter [facility] 05-06-2023 Note HNO ID: [id number] Author: Mauricio Kelley Service: ? Author Type: ? Type: Progress Notes Filed: 05/14/2023 4:17 PM Note Text: Patient name: Kim Nichols Are you being referred by a [place] for Spine Health Provider or Pain Management Provider at [facility]? No If answer is YES [...] facility where the MRI/CT/myelogram was completed: The [address] [address] MRI/CT/myelogram viewable in Epic: No If not, please provide [phone] to fax in imaging reports for review. 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 [facility] Diagnosis Lumbar radiculopathy- Primary Thoracic or lumbosacral neuritis or radiculitis, unspecified Displacement of lumbar intervertebral disc without myelopathy documented in this encounter [facility] note* Diagnosis Meralgia paresthetica of left side- Primary Meralgia paresthetica Chronic midline low back pain without sciatica documented in this encounter [facility] note* Diagnosis Post-op pain- Primary Other acute postoperative pain [facility] Diagnosis S/P left knee arthroscopy- Primary [facility] Diagnosis S/P left knee arthroscopy- Primary [facility]* Diagnosis Preop examination- Primary Unspecified [...] to their favorable impact on blood pressure [facility]cholesterol[facility] 250 DO Work Phone: History of Present [...] to call if they arise or occur. [facility] 250 DO Work Phone: History of Present [...] to call if they arise or occur. [facility] 250 DO Work Phone: Hospital Discharge instructions No data available for this section [facility] [place] Progress note No data available for this section [facility] [place] Reason for referral (narrative)* Diagnostic Procedure Only (Routine) - Pending Review Specialty Diagnoses / Procedures Referred By Erlinda mao Referred To Contact XR IMAGING Diagnoses Meralgia paresthetica of left side Procedures XR LUMBAR MOTION 4V AP/LAT/ FLEX/EXT RADEX SPINE LUMBOSACRAL MINIMUM 4 VIEWS Juan R Ling MD [address] [place] [address] [place] [address] Referral ID Status Reason Start Date Expiration Date Visits Requested Visits Authorized [id number] Pending Review Auto-Generat ed Referral 2023 09/02/2024 1 1 [facility] for referral (narrative)* Consultation (Routine) - Pending Review Specialty Diagnoses / Procedures Referred By Erlinda t Referred To Contact Physical Therapy Diagnoses Internal derangement of left knee Procedures [place] OFFICE/OUTPATIENT NEW HIGH MDM 60 MINUTES Car Cuellar PA [address] [place] [address] [facility] [address] [place] [address] Referral ID Status Reason Start Date Expiration Date Visits Requested Visits Authorized [id number] Pending Review Consult and Treat 07/01/2024 12/28/2024 1 1 [facility] Summary Purpose Family History No Family [...] being seen for an annual follow-up of.KIM LANIEAmaya is being seen for an annual follow-up [...] AUTHOR'S ORGANIZ ATION 05/14/2023 [facility] DATE CREATED AUTHOR AUTHOR'S ORGANIZ ATION 05/14/2023 [facility] DATE CREATED AUTHOR AUTHOR'S ORGANIZ ATION 2023 [facility] DATE CREATED AUTHOR AUTHOR'S ORGANIZ ATION 08/05/2023 [facility] DATE CREATED AUTHOR AUTHOR'S ORGANIZ ATION 09/01/2024 [facility] DATE CREATED AUTHOR AUTHOR'S ORGANIZ ATION 09/10/2024 [facility] DATE CREATED AUTHOR AUTHOR'S ORGANIZ ATION 12/17/2024 [facility] DATE CREATED AUTHOR AUTHOR'S ORGANIZ ATION 03/06/2025 [facility] DATE CREATED AUTHOR AUTHOR'S ORGANIZ ATION 04/21/2025 [facility] EPIC Care Teams (unrecognized sec tion and content) [...] End: August 25, 2024 Rell Adamson MD [facility] Attending Provider Active Start: August 25, 2024 End: August 25, 2024 Team Status: Inactive Member Role Status Dates Avi Yepez MD Primary Care Provider Active Bijan Betts Jr, DO Attending Provider Active Freelance Director Relationship Specialty Start Date End Date Avi Yepez MD [address] [place] [address] Referring Family Medicine 04/24/23 Freelance Director Relationship Specialty Start Date End Date Avi Yepez MD [address] [place] [address] Referring Family Medicine 04/24/23 Freelance Director Relationship Specialty Start Date End Date Avi Yepez MD [address] [place] [address] Referring Family Medicine 04/24/23 Freelance Director Relationship Specialty Start Date End Date Avi Yepez MD [address] [place] [address] PCP - General Family Medicine 06/25/23 Avi Yepez MD [address] [place] [facility] [place] [address] Referring Family Medicine 04/24/23 Freelance Director Relationship Specialty Start Date End Date Avi Yepez MD [address] [place] [facility] [place] [address] PCP - General Family Medicine 06/25/23 Avi Yepez MD [address] [place] [facility] [place] [address] Referring Family Medicine 04/24/23 Freelance Director Relationship Specialty Start Date End Date Avi Yepez MD [address] [place] [facility] [place] [address] PCP - General Family Medicine 06/25/23 Avi Yepez MD [address] [place] [facility] [place] [address] Referring Family Medicine 04/24/23 Freelance Director Relationship Specialty Start Date End Date Avi Yepez MD [address] [place] [address] PCP - General 05/05/24 Freelance Director Relationship Specialty Start Date End Date Avi Yepez MD [address] [place] [address] PCP - General 05/05/24 Freelance Director Relationship Specialty Start Date End Date Avi Yepez MD [address] [place] [address] PCP - General 05/05/24 Freelance Director Relationship Specialty Start Date End Date Avi Yepez MD [address] [place] [address] PCP - General 05/05/24 Freelance Director Relationship Specialty Start Date End Date Avi Yepez MD [address] [place] [address] PCP - General 05/05/24 Freelance Director Relationship Specialty Start Date End Date Avi Yepez MD [address] [place] [address] PCP - General 05/05/24 Freelance Director Relationship Specialty Start Date End Date Avi Yepez MD [address] [facility] [place], [facility] PCP - General 05/05/24 Freelance Director Relationship Specialty Start Date End Date Avi Yepez MD [address] [place] [address] PCP - General 05/05/24 Freelance Director Relationship Specialty Start Date End Date Avi Yepez MD [address] [place] [address] PCP - General 05/05/24 Freelance Director Relationship Specialty Start Date End Date Avi Yepez MD [address] [place] [address] PCP - General 05/05/24 Freelance Director Relationship Specialty Start Date End Date Avi Yepez MD PCP - General 05/05/24 Freelance Director Relationship Specialty Start Date End Date Avi [...] or prosecute any alcohol or drug abuse patient.[facility] the event this information is protected by the Federal Confidentiality of Alcohol and Drug Abuse Patient Records regulations: The Federal rules restrict any use of the information to criminally investigate or prosecute any alcohol or drug abuse patient.[facility] the event this information is protected by the Federal Confidentiality of Alcohol and Drug Abuse Patient Records regulations: The Federal rules restrict any use of the information to criminally investigate or prosecute any alcohol or drug abuse patient.[facility] the event this information is protected by the Federal Confidentiality of Alcohol and Drug Abuse Patient Records regulations: The Federal rules restrict any use of the information to criminally investigate or prosecute any alcohol or drug abuse patient.[facility] the event this information is protected by the Federal Confidentiality of Alcohol and Drug Abuse Patient Records regulations: The Federal rules restrict any use of the information to criminally investigate or prosecute any alcohol or drug abuse patient.[facility] the event this information is protected by the Federal Confidentiality of Alcohol and Drug Abuse Patient Records regulations: The Federal rules restrict any use of the information to criminally investigate or prosecute any alcohol or drug abuse patient.[facility] Reason for Visit (unrecogniz ed section and content) Reason Comments New Patient Reason Comments Preparations For Procedures Pre-injectio n instructions Reason Comments Low Back Pain New Patient Evaluation Reason Comments Pain Post-op Reason Comments Pain Reason Comments Pain Specialty Diagnoses / Procedures Referred By Contac t Referred To Contact Physical Therapy Diagnoses Internal derangement of left knee Procedures [place] OFFICE/OUTPATIENT NEW HIGH MDM 60 MINUTES Car Cuellar, ANKITA [address] [address] Maria E Peck, PT Referral ID Status Reason Start Date Expiration Date Visits Requested Visits Authorized [id number] Authorized Consult and Treat 07/01/2024 12/28/2024 60 [...] BE BASED ON THE PRIMARY CLINICAL RECORDS. [facility]. provides no warranty or guarantee of the accuracy or completeness of information in this document.
--- NOTE | 2025-05-26 08:15 | PM.CN ---
Consult Note: HPI Data of Consult Patient: known to practice within the last 3 years Requesting Physician: Anamaria Waller NP Primary Care Provider: Jason Cervantes MD Consult Narrative Reason for consult: low back pain Narrative: Harrison Nichols a pleasant 64 year old male presents for evaluation of chronic low back pain secondary to lumbar ddd, lumbar spondylosis based on prior MRI. pt was evaluated by [facility] and deemed nonsurgical. cannot tolerate formal PT due to increased pain, has attempted HEP > 6 weeks with minimal relief. pain today 3/10 constant aching increasing to 6/10 with standing, walking, sleeping, transitioning. pain improved mildly with reclining in his chair and heat. utilizing tylenol with no improvement, cannot take NSAIDs on eliquis. prn use of norco through pcp as well as gabapentin without side effects. cc:: CC: Anamaria Waller NP [facility] Medical History Migraine ?G43.909 - Migraine, unspecified, not intractable, without status migrainosus (ICD-10) Colon polyp ?K63.5 - Polyp of colon (ICD-10) Sleep apnea ?G47.30 - Sleep apnea, unspecified (ICD-10) Atrial fibrillation ?I48.91 - Unspecified atrial fibrillation (ICD-10) Erectile dysfunction ?N52.9 - Male erectile dysfunction, unspecified (ICD-10) Hypokalemia ?E87.6 - Hypokalemia (ICD-10) New onset a-fib ?I48.91 - Unspecified atrial fibrillation (ICD-10) H/O multiple concussions ?Z87.820 - Personal history of traumatic brain injury (ICD-10) Arthritis ?M19.90 - Unspecified osteoarthritis, unspecified site (ICD-10) Bulging lumbar disc ?M51.36 - Other intervertebral disc degeneration, lumbar region (ICD-10) Chronic GERD ?K21.9 - Gastro-esophageal reflux disease without esophagitis (ICD-10) Hyperlipidemia ?E78.5 - Hyperlipidemia, unspecified (ICD-10) Hypertension ?I10 - Essential (primary) hypertension (ICD-10) Surgical History History of arthroscopy of knee (07/2024) ?Z98.890 - Other specified postprocedural states (ICD-10) H/O nasal septoplasty ?Z98.890 - Other specified postprocedural states (ICD-10) H/O left heart catheterization by ventricular puncture ?Z98.890 - Other specified postprocedural states (ICD-10) Hx of cholecystectomy ?Z90.49 - Acquired absence of other specified parts of digestive tract (ICD-10) Family History Sister Family history of myocardial infarction Family history of diabetes mellitus Father Family history of cancer Family history of myocardial infarction Family history of hypertension Family history of diabetes mellitus Mother Brain aneurysm Grandmother Family history of stroke Social History Within the past year, how often did you have a drink containing alcohol: monthly or less Within the past year, how many standard drinks containing alcohol did you have on a typical day: 1 or 2 Within the past year, how often did you have six or more drinks on one occasion: never Total score: 0 Score interpretation: A score less than 4 is consistent with normal alcohol consumption. Smoking status: Never smoker Non-prescribed substance use: cannabis (any form) Previous occupational history: Retired Highest level of school completed/degree received: Bachelor's degree Are you now , , , , never or living with a partner: In a typical week, how many times do you talk on the telephone with family, friends, or neighbors: twice per week How often do you get together with friends or relatives: twice per week How often do you attend holiness or denominational services: 4 or more times per year Do you belong to any clubs or organizations such as holiness groups unions, fraternal or athletic groups, or school groups: no Total score: 3 Score interpretation: A score of greater than or equal to 2 indicates the lowest level of social isolation. Little interest or pleasure in doing things: not at all Feeling down, depressed, or hopeless: several days Feel stressed/tense/nervous/anxious/difficulty sleeping: not at all Do you think of yourself as: straight/heterosexual Gender Identity: male Meds Home Medications and Allergies Home Medications ?Medication ?Instructions ?Recorded ?Confirmed ?Type aspirin 81 mg capsule 81 mg PO DAILY 05/07/24 01/25/25 History chlorthalidone 25 mg tablet 25 mg PO QAM 05/07/24 01/25/25 History gabapentin 300 mg capsule 300 mg PO BID 05/07/24 01/25/25 History rosuvastatin 20 mg tablet 20 mg PO .QHS 05/07/24 01/25/25 History apixaban 5 mg tablet (Eliquis) 5 mg PO BID #60 tabs 05/08/24 01/25/25 Rx metoprolol tartrate 25 mg tablet 25 mg PO BID #60 tabs 05/08/24 01/25/25 Rx potassium chloride 20 mEq 20 meq PO BID #60 tabs 05/08/24 01/25/25 Rx tablet,extended release hydrocodone 5 mg-acetaminophen 325 1 tab PO Q6H PRN pain 08/17/24 01/25/25 History mg tablet pantoprazole 40 mg tablet,delayed 40 mg PO DAILY 12/13/24 01/25/25 History release Allergies Allergy/AdvReac Type Severity Reaction Status Date / Time amoxicillin Allergy Intermediate Rash Verified 01/25/25 04:04 thiopental (From Pentothal) Allergy delayed Verified 01/25/25 04:04 emergence Exam Constitutional Documenting provider has reviewed patient's vital signs: yes Common normals: no apparent distress, oriented x3, healthy appearing, alert and well nourished General appearance: cooperative [facility] Common normals: normocephalic, hearing grossly normal bilaterally and moist oral mucous membranes Head and scalp: normocephalic Eye Common normals: PERRL Pupil: PERRL Neck & C-Spine Common normals: full ROM General: normal visual inspection Chest Common normals: inspection of chest normal Respiratory Common normals: normal respiratory effort, no retractions and no use of accessory muscles Back & Pelvis Lumbar spine/lower back: ROM limited, pain with ROM, lumbar spinal tenderness Lumbar spinal tenderness location: L2, L3 and L4 and straight leg raise negative bilaterally Other: strength 5/5 in BLE sensation intact BLE Neuro Common normals: oriented x3 Sensorium/orientation: alert Psych Common normals: mental status grossly normal, thought process normal, cooperative, affect normal, speech normal and activity/motor behavior normal Speech: normal speech Thought process: normal thought process Results Additional Findings Additional findings: If on a controlled substance or opioids, I have checked an [place] report on this patient and there are no aberrancies noted in the prescribing history.??If on a controlled substance or opioid a drug screen was completed and reviewed within the last year, and if there has not been a drug screen completed we ordered one today to monitor higher risk, state monitored pain medication use. As part of providing excellent, safe, comprehensive care, the following was completed at our patient's visit: 1. A medication reconciliation and review to ensure accurate knowledge of current/active medications, including asking our patients to inform us about any [id number] medications or herbal remedies/nutritional supplements/alternative remedies. 2. A review to specifically ensure our patients have had annual screening for screening for depression, screening for tobacco use, and screening for unhealthy alcohol use. For concerning screenings had a discussion with the patient, provided patient education, and recommended follow-up with primary care provider when appropriate. If patient noted with a risk of falling, they received education on strength, gait, and balance training to prevent future risk of falling. Portions of this note may have been carried over from the previous visit and updated as appropriate. Please note this office utilizes paper charting in addition to the electronic medical record. A list of current medications, vitals, and PMH is available there as the clinical staff outside of myself do not have access to [employer] charting during the clinic day operations. As part of providing quality comprehensive care the current medications, vitals, and PMH were reviewed in the paper chart. Assessment and Plan Assessment and Plan (1) Lumbar spondylosis: Assessment and Plan: The patient has had over 3 months of moderate to severe low back pain with functional impairment and inadequate response to conservative care including NSAIDS (unless there are contraindication such as concurrent blood thinners), multiple oral or topical pain medications, and home exercise program/physical therapy.? Patient has completed >6 weeks of guided home exercise program and/or formal physical therapy program without relief of their symptoms.? I have reviewed the imaging of the lumbar spine and no red flags were identified.? The imaging reveals radiographic findings consistent with lumbar facet arthropathy, lumbar spondylosis, lumbar bulging disc The Oswestry Disability Index was completed, and the patient scored a 22%.? The patient noted the following:?? moderate pain with standing, lifting, ADLs, travel We discussed the risks and benefits of the procedure with the patient, and we are NOT planning on using sedation as outlined in the guidelines from Medicare unless there is a documented reason that sedation would be strongly recommended.??The procedure will be completed with fluoroscopic guidance.? Plan bilateral L2-3 L3-4 facet medial branch block x2 in consideration of RFA for facet mediated pain, as discussed with pt we are treating his most significant pain based on physical exam and reported pain. previously Dr Polk recommended bilateral L4-5 L5-S1 MBBs however patient reports pain higher in the lumbar spine continue f/u with PCP regarding intermittent chest pain, reports this is secondary to a hiatal hernia however he thinks this is back pain. pcp ordered a thoracic xray for evaluation. could consider MRI in the future if pain persists continue medication management through PCP f/u after each injection
== END 2025-05-26 07:52 | disposition home or self-care (01) ==
LOC: PM 07:53
PROVIDERS: PCP Family Medicine; Visit Provider Nurse Practitioner
DX: M47.816 Spondylosis without myelopathy or radiculopathy, lumbar region (principal)
CPT/HCPCS: G0463

== ENCOUNTER 2025-06-13 07:36 | Day surgery (SDC) | payer OTHER, SELFPAY ==
--- OUTSIDE RECORDS SUMMARY | 2021-01-13 07:00 | XMS_ITS | Continuity of Care Document ---
Author Organization [facility] Address [address] [place] [address] Phone Care Team Providers Care Glazier Apprentice Name Role Phone Severiano Martin Unavailable Unavailable Procedures Procedure Date Pfizer COVID Vaccine Admin Dose 2 COVID-19 Pfizer Pfizer COVID Vaccine Admin Dose 1 COVID-19 Pfizer Advance Directives Directive Yes / No Effective Date File Name No Information Encounters Encounter Description Practice Location Reason(s) For Visit Diagnoses Date Provider Providers Copied on Encounter [facility], [address] [place], [place], [id number], [place] tel:[phone] COVID ECHD No Information Radha Man. [address] [place], [place], [id number], [place]. tel:[phone] [facility], [address] [place] [address], [id number], tel:[phone] COVID ECHD No Information Radha Man. [address] [place], [place], [id number], [place]. tel:[phone] Family History Family Member Type Diagnosis Age At Onset No Information Immunizations Vaccine Date Status Comments Pfizer COVID administered Source: New Imm unization Record Pfizer COVID administered Source: New Imm unization Record Payers Payer name Insurance type Covered alliance party ID Authoriza tion(s) Aetna CI [id number] Aetna CI [id number] Aetna CI [id number] Social History Type Description Quantity Date Captured [...]
--- OUTSIDE RECORDS SUMMARY | 2025-04-11 06:45 | XMS_ITS ---
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 Ordering Physician: Avi Yepez M.D. Date of Service: 04/21/25 Procedure(s): XR thoracic spine 3V Accession Number(s): [id number] cc: Avi Yepez M.D. [place] [address] Patient Name: KIM NICHOLS MRN: [facility]:[id number] date: 1960 Sex: M Assigned Patient Location: LAB Current Patient Location: LAB Accession/Order Number: [id number] Exam Date: 04/21/2025 08:46 Report Date: 04/21/2025 08:48 At the request of: AVI YEPEZ MD Procedure: XR thoracic spine 3V THORACIC SPINE - 3 views: CLINICAL HISTORY: Chest pain radiating to the back for the past year. No reported injury. COMPARISON: None AP, lateral and swimmer's views were obtained. There is subtle dextroscoliotic curvature. There is no evidence of compression fracture or displacement. The pedicles are intact. There is endplate spurring. There are no paraspinal soft tissue abnormalities. XR/XR thoracic spine 3V IMPRESSION: SUBTLE SCOLIOTIC CURVATURE AND DEGENERATIVE CHANGES. NO ACUTE BONY FINDINGS. Impression dictated by: Stacy Ellis M.D. 04/21/2025 8:48 AM Dictation Location: [place] [address] Electronically authenticated by: [id number] Y Date: 04/21/2025 08:48 Dictated By: Stacy Ellis M.D. Signed By: 04/21/25 0850 DD/ 0848 TD/TT: Architectural Wood Model Maker: [place] [address] XRay Report Signed Patient: KIM NICHOLS MR#: [id number] : 1960 Acct:[id number] Age/Sex: 64 / M ADM Date: 04/21/25 Loc: LAB Attending Dr: Avi Yepez M.D. Ordering Physician: Avi Yepez M.D. Date of Service: 04/21/25 Procedure(s): XR tho racic spine 3V Accession Number(s): [id number] cc: Avi Yepez M.D. [address] [address] Patient Name: KIM NICHOLS MRN: [facility]:[id number] date: 1960 Sex: M Assigned Patient Location: LAB Current Patient Location: LAB Accession/Order Numb er: [id number] Exam Date: 04/21/2025 08:46 Report Date: 04/21/2025 08:48 At the request of: AVI YEPEZ MD Procedure: XR thoracic spine 3V THORACIC SPINE - 3 views: CLINICAL HISTORY: Ch est pain radiating to the back for the past year. No reported injury. COMPARISON: None AP, lateral and swim sushila's views were obtained. There is subtle dextroscoliotic curv ature. There is no evidence of compression fracture or displacement. The pe dicles are intact. There is endplate spurring. There are no paraspinal so ft tissue abnormalities. X R/XR thoracic spine 3V IMPRESSION: SUBTLE SCOLIOTIC CUR VATURE AND DEGENERATIVE CHANGES. NO ACUTE BONY FINDINGS. Impression dictated by: Stacy Ellis M.D. 04/21/2025 8:48 AM Dictation Location: [place] [address] Electronically authe nticated by: [id number] Y Date: 04/21/2025 08:48 Dictated By: Stacy Ellis M.D. Signed By: 04/21/25 0850 DD/ TD/TT: Architectural Wood Model Maker: REASON FOR VISIT Presents to office alone for 6 month med check, CSA updated Medications Medication SIG (Take, Route, Frequency, Duration) Notes Start Date End Date Status HYDROcodone-Acetaminop hen 5-325 MG 1 tablet as needed Orally every 6 hrs for 7 days 04/11/2025 Active Urea 40 % 1 application as needed to bottom of feet Externally Once a day for 30 days Dispense large trade size bottle/tube 10/07/2024 Active Terbinafine HCl 1 % 1 application Externally bid for 21 days 10/12/2024 Active Triamcinolone Acetonide 0.1 % 1 application Externally bid 12/07/2024 Active Protonix 40 MG 1 tablet Orally Once a day for 90 days 09/10/2024 Active Rosuvastatin Calcium 20 MG 1 tablet Orally Once a day for 7 days Active Potassium Chloride ER 20 MEQ 1 tablet with food Orally twice daily for 90 days 06/25/2024 Active Luzu 1 % 1 application to bottom and sides of both feet Externally Once a day for 14 days Patient failed OTC lotrimin and Rx lotrisone in past 10/07/2024 Active Metoprolol Tartrate 25 MG 1 tablet with food Orally Twice a day for 90 days 06/25/2024 Active Gabapentin 300 MG TAKE 3 CAPSULES EVERY MORNING AND TAKE 2 CAPSULESAT BEDTIME Orally as directed for 90 days Active HYDROcodone-Acetaminop hen 5-325 MG 1 tablet as needed - max sdose 2/day Orally every 6 hrs PRN 02/17/2025 Active Chlorthalidone 25 MG TAKE 1 TABLET BY MOUTH EVERY MORNING WITH FOOD FOR 90 DAYS for 90 Active Eliquis 5 MG 1 tablet Orally twice daily for 90 days 06/25/2024 Active Aspirin Adult Low Dose 81 MG 1 tablet Orally Once a day Active Social History Tobacco Use: Social History [...] week (3 points) Points 3 Interpretation Negative Problems Problem Type SNOMED Code ICD Code Onset Dates Problem Status W/U Status Risk Notes Problem Osteoarthritis of knee (141238268) Knee osteoarthritis (M17.10) Active confirmed Vital Signs Blood pressure systolic 116 mm Hg 04/11/20 25 Blood pressure diastolic 68 mm Hg 025 Height 70 in 04/11/2025 Weight 264.8 lbs 04/11/2025 BMI 37.99 kg/m2 04/11/2025 Encounters Encounter Location Date Provider Diagnosis [facility] [address] [place] [address] 04/11/2025 Del Hoy Knee osteoarthritis M17.10 ; Thoracic back pain M54.6 and Well adult Z00.00 Assessments Encounter Date Diagnosis (ICD Code) Assessment Notes Treatment Notes Treatment Clinical Notes Section Notes 04/11/2025 Knee osteoarthritis (ICD-10 - M17.10) neecs new on 0 nees pain meds due to new knee 04/11/2025 Thoracic back pain (ICD-10 - M54.6) 04/11/2025 Well adult (ICD-10 - Z00.00) Plan Of Treatment Medication Medication Name Sig Start Date Stop Date Notes HYDROcodone-Acetaminophen 5- 325 MG 1 tablet as needed Orally every 6 hrs for 7 days 04/11/2025 Treatment Notes Assessment Notes Knee osteoarthritis neecs new on 0 nees pain meds due to new knee Pending Test Test Name Order Date HEMOGLOBIN A1C (GLYCO) 04/11/2025 INSULIN, TOTAL 04/11/2025 LIPID PANEL (CHOL/TRIG/HDL/LDL) 04/11/20 THYROID PANEL (T4/TSH/FREE T3) PSA, SCREENING 04/11/2025 CMP (COMP MET ELY) w/eGFR CKD-EPI 2024 CBC WITH DIFF 04/11/2025 Next Appt Details Provider Name:Del Yepez, 10:30:00 AM, [address] [place], [address], Progress Notes * Kim NICHOLSDOB:1959 (64 yo M)Acc No.[id number]:04/11/2025 Progress Note Patient: Suyapa MCLAUGHLIN Kim Arthur Provider: Tamara Yepez ([facility])MD :1960 A ge:64 Y S ex:Male Date:04/11/2025 Address:[address] [place], [place] [address] Check In:10:24 AM ESTCheck O ut:11:22 AM EST Subjective: * Chief Complaints: * P resents to office alone for 6 month med checkCSA updated * HPI: G eneral: See ing Dr Rosa htei month - wants a new knee. * ROS: E ENT: hearing changes [...] Gastro-esophageal re flux disease without esophagitis Modified On:11/13/2023 Status:confirmed Z90.49 History of cholecyst ectomy Modified On:03/21/2023 Status:confirmed G43.909 Migraine Modified On:03/21/2023 Status:confirmed I10 Benign essential hyp ertension Modified On:01/18/2024W/U Status:confirmed J01.90 Acute sinusitis Modified On:03/21/2023 Status:confirmed Z00.00 Well adult Modified On:11/13/2023 Status:confirmed N52.9 Impotence Modified On:03/21/2023 Status:confirmed M54.50 Chronic midline low back pain without sciatica Modified On:11/13/2023 Status:confirmed M48.061 Spinal stenosis, lum bar region without neurogenic claudication Modified On:01/16/2024U Status:confirmed M51.27 Other intervertebral disc displacement, lumbosacral region Modified On:04/02/2023 Status:confirmed M54.16 Lumbar radiculopathy Modified On:04/24/2023 Status:confirmed R09.89 Other specified symp toms and signs involving the circulatory and respiratory systems Modified On:05/14/2023 Status:confirmed M17.9 Knee osteoarthritis Modified On:03/05/2024 Status:confirmed M17.12 Unilateral primary o steoarthritis, left knee Modified On:03/09/2024 Status:confirmed 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, left Modified On:04/30/2024 Status:confirmed I48.91 Atrial fibrillation Modified On:05/12/2024 Status:confirmed R06.00 MILIAN (dyspnea on exer tion) Modified On:05/12/2024 Status:confirmed R07.9 Chest pain Modified On:05/12/2024 Status:confirmed Z68.41 BMI 40.0-44.9, adult Modified On:05/12/2024 Status:confirmed I48.91 New onset a-fib Modified On:06/14/2024 Status:confirmed M17.10 Knee osteoarthritis Modified On:04/11/2025 Status:confirmed * Medical History: * Surgical History: [...] Release 1 tablet Orally Once a day Chlorthalidone 25 MG Tablet TAKE 1 TABLET BY MOUTH EVERY MORNING WITH FOOD FOR 90 DAYS Eliquis(Apixaban) 5 MG Tablet 1 tablet Orally twice daily Gabapentin 300 MG Capsule TAKE 3 CAPSULES EVERY MORNING AND TAKE 2 CAPSULESAT BEDTIME Orally as directed HYDROcodone-Acetaminophen 5-325 MG Tablet 1 tablet as needed - max sdose 2/day Orally every 6 hrs , Notes to Pharmacist: PRNLuzu(Luliconazole) 1 % Cream 1 application to bottom [...] 1 % Cream 1 application Externally bid Triamcinolone Acetonide 0.1 % Cream 1 application Externally bid Urea 40 % Cream 1 application as needed to bottom of feet Externally Once a day Dispense large trade size bottle/tubeTaking Aspirin Adult Low Dose(Aspirin) 81 MG Tablet Delayed Release 1 tablet Orally Once a day Taking Chlorthalidone 25 MG Tablet TAKE 1 TABLET BY MOUTH EVERY MORNING WITH FOOD FOR 90 DAYS Taking Eliquis(Apixaban) 5 MG Tablet 1 tablet Orally twice daily Taking Gabapentin 300 MG Capsule TAKE 3 CAPSULES EVERY MORNING AND TAKE 2 CAPSULESAT BEDTIME Orally as directed Taking HYDROcodone-Acetaminophen 5-325 MG Tablet 1 tablet as needed - max sdose 2/day Orally every 6 hrs , Notes to Pharmacist: PRNTaking Luzu(Luliconazole) 1 % Cream 1 application to [...] % Cream 1 application Externally bid Taking Triamcinolone Acetonide 0.1 % Cream 1 application Externally bid Taking Urea 40 % Cream 1 application as needed to bottom of feet Externally Once a day Dispense large trade size bottle/tubeDiscontinuedHYDROcodone-Acetaminophen 5-325 MG Tablet 1 tablet - M25.569 Orally every 12 hrs , Notes to Pharmacist: M25.569Medication List reviewed and reconciled with the patientDiscontinued HYDROcodone-Acetaminophen 5-325 MG Tablet 1 tablet - M25.569 Orally every 12 hrs , Notes to Pharmacist: M25.569Medication List reviewed and reconciled with the patient * Allergies: A moxicillin: hives - Allergyno[Allergies Verified] Objective: * Vitals: W t:264.8lbs, Ht: 70 in, BP:116/68mm Hg, BMI:37.99Index, Ht-cm: 177.8 cm, Wt-k.11 kg. * Examination: P hysical Exam: GENERAL: [...] mood and affect. Assessment: * Assessment: 1. K nee osteoarthritis - M17.10 (Primary) [facility] . [facility] - Z00.00 ? 3 . T horacic back pain - M54.6 Plan: * Treatment: [facility]. [facility] L AB: HEMOGLOBIN A1C (GLYCO) L AB: INSULIN, TOTAL L AB: LIPID PANEL (CHOL/TRIG/HDL/LDL) L AB: THYROID PANEL (T4/TSH/FREE T3) L AB: PSA, SCREENING L AB: CMP (COMP MET ELY) w/eGFR CKD-EPI L AB: CBC WITH DIFF 3. T horacic back pain I maging: XR thoracic spine 3V * Procedure Codes: * Preventive Medicine: Screenings/Counseling: B CO ACTION PLAN Above Normal BMI Follow-up D ietary management education, guidance, and counseling See treatment section of progress note for complete details of management plan. * * Sign off status: Completed Visit Status: C HK (Check Out) true * Provider: Tamara Yepez ([facility])MD Date: 0 04/11/2025 Generated for Printi ng/Faxing/eTransmitting on: 0 06/13/2025 07:38 AM EDT History and Physical Notes * HPI (History of Present Illness) Category Sub-Category Detail Notes Category Not es General See ing Dr Trev fung htei month - wants a new knee Examination Category Sub-Category Detail Notes Category Not [...]
--- OUTSIDE RECORDS SUMMARY | 2025-04-21 15:33 | XMS_ITS ---
Author Organization The [facility] in [place] Address [address] [place] [address] Care Team Providers Care Micro Computer Specialist Name Role Phone Del Cervantes Primary Care Provider REASON FOR VISIT Lab Results Encounters Encounter Location Date Provider Diagnosis [facility] [address] [place] [address] 04/21/2025 Del Cervantes Elevated bilirubin R 17 Assessments Encounter Date Diagnosis (ICD Code) Assessment Notes Treatment Notes Treatment Clinical Notes Section Notes 04/21/2025 Elevated bilirubin (ICD-10 - R17) Plan Of Treatment Pending Test Test Name Order Date PROF 14(COMP METB) 04/21/2025 Next Appt Details Provider Name:Del Cervantes, 10:30:00 AM, [address] [place], [address], Progress Notes * Harrison NICHOLSDOB:1959 (64 yo M)Acc No.[id number]:04/21/2025 Patient: Suyapa Harrison MCLAUGHLIN :1960 A ge:64 Y S ex:Male Address:[address] [place] [address] Subjective: * Chief Complaints: * L ab Results * Medical History: * Surgical History: * Hospitalization/Major Diagno stic Procedure: * Medications: Objective: * Vitals: * Physical Examination: Assessment: * Assessment: 1. E levated bilirubin - R17 (Primary) Plan: * Treatment: * Procedure Codes: * true * Date: Generated for Artur pradhan/Joshua/William on: 0 06/13/2025 07:38 AM EDT
--- OUTSIDE RECORDS SUMMARY | 2025-05-12 07:11 | XMS_ITS ---
Author Organization The [facility] in [place] Address [address] [place] [address] Care Team Providers Care Space Scheduler Name Role Phone Del Cervantes Primary Care Provider REASON FOR VISIT [place], back/knee pain Medications Medication SIG (Take, Route, Frequency, Duration) Notes Start Date End Date Status HYDROcodone-Acetaminophen 5-325 MG 1 tablet as needed Orally every 6 hrs for 14 days 05/12/2025 Active Encounters Encounter Location Date Provider Diagnosis [facility] [address] [place] [address] 05/12/2025 Del Cervantes Knee osteoarthritis M17.10 Assessments Encounter Date Diagnosis (ICD Code) Assessment Notes Treatment Notes Treatment Clinical Notes Section Notes 05/12/2025 Knee osteoarthritis (ICD-10 - M17.10) Plan Of Treatment Medication Medication Name Sig Start Date Stop Date Notes HYDROcodone-Acetaminophen 5- 325 MG 1 tablet as needed Orally every 6 hrs for 14 days 05/12/2025 Next Appt Details Provider Name:Del Cervantes, 10:30:00 AM, [address] [place], [address], Progress Notes * Harrison NICHOLSDOB:1959 (64 yo M)Acc No.[id number]:05/12/2025 Patient: Harrison ROLAND :1960 A ge:64 Y S ex:Male Address:[address] [place] [address], [place] [address] * Refills Refill HYDROcodone-Acetaminophen Tablet, 5-325 MG, Orally, 56 Tablet, 1 tablet as needed, every 6 hrs, 14 days, Refills=0 * true * Date: Generated for Artur pradhan/Joshua/William on: 0 06/13/2025 07:38 AM EDT
--- OUTSIDE RECORDS SUMMARY | 2025-06-13 07:38 | XMS_ITS | Encounter Summary ---
Author Organization [facility] Address [address] [place] [address] Phone Care Team Providers Care Housekeeper And Laundry Assistant Name Role Phone Jason Cervantes MD Primary Care Provider [phone] Encounter Details Date Type Department Care Team (Late st Contact Info) Description 04/20/2019 Orders Only [facility] [address] [place] [address] Conversion, Onbase Social History Tobacco Use Types [...] on filedocumented in this encounter Care Teams Housekeeper And Laundry Assistant Relationship Specialty Start Date End Date Jason Cervantes MD [address] [facility] [place] [address] PCP - General 05/07/22 documented as of this encounter
--- OUTSIDE RECORDS SUMMARY | 2025-06-13 07:38 | XMS_ITS | Clinical Summary ---
Author Organization [facility] Address [address] [place] [id number] Care Team Providers Care Newscast Director Name Role Phone Jason Cervantes MD Unavailable [phone] Jason Cervantes MD Primary Care Provider [phone] Allergies Active Allergy Reactions Criticality Noted Date [...] original vaccine, a ge 12+ yr, monovalent ([place] - PURPLE TOP) 09/03/2021,02/13/2021,01/13/2021,2020 COVID-19 original vaccine, [...] is lower risk 4 06/02/2023 Data from: https://www.neighborhoodatlas.medicine.[facility]/. Last address used for calculation [address] 06/02/2023 Sex and Gender Information Value [...] Colonoscopy 07/02/2020 07/02/2019 Colorectal Cancer Screening 07/02/2020 Influenza Vaccine (#1) 2025 0, 09/25/2016, 08/22/2015 RSV Vaccine (1 - 1-dose 75+ series) 2036 Insurance Care Teams Newscast Director Relationship Specialty Start Date End Date Jason Cervantes MD [address] [place] [address] PCP - General Family Medicine 06/25/23 Jason Cervantes MD [address] [place] [address] Referring Family Medicine 04/24/23
--- OUTSIDE RECORDS SUMMARY | 2025-06-13 07:38 | XMS_ITS | Patient Health Record ---
Author Organization [facility] Address [address] [place] [address] Care Team Providers Care Glass Belt Sander Name Role Phone Del Yepez Primary Care Provider Elis Salcedo [phone] Allergies Allergen (clinical drug ingredient) Drug/Non Drug Allergy documented on EMR Reaction Allergy Type Onset Date Status amoxicillin Amoxicillin hives Drug Allergy Act kriss Results Component Value Reference Range Notes TSH Reviewed date:04/21/2025 07:35:49 PM Interpretation: Performing Lab: Notes/Report: [facility] , Thyroid Stimulating Hormone 1.589 0.358-3.740 uIU/mL Performing Lab: see note - [facility] LB T4 Reviewed date:04/21/2025 07:35:49 PM Interpretation: Performing Lab: Notes/Report: [facility] , T4 Thyroxine 8.50 4.50-12.10 ug/dL Performing Lab: see note ML - [facility] LB PSA SCREENING Reviewed date:04/21/2025 07:35:49 PM Interpretation: Performing Lab: Notes/Report: [facility] , Prostate Specific Antigen Scrn 1.36 <=4.00 ng/mL Performing Lab: see note - [facility] LB PROF 14(COMP METB) Reviewed date:04/21/2025 07:35:49 PM Interpretation: Performing Lab: Notes/Report: [facility] , Sodium 138 136-145 mmol/L Potassium 3.3 3.5-5.1 mmol/L Chloride 100 98-107 mmol/L Carbon Dioxide 28.7 21.0-32.0 mmol/L Anion Gap 12.6 Glucose 86 74-106 mg/dL Blood Urea Nitrogen 21.0 7.0-18.0 mg/dL Creatinine 1.02 0.70-1.30 mg/dL Estimated GFR ( Tatiana >60 >=60 mL/min/1.73m 2 Estimated GFR (Non- Candelaria >60 >=60 mL/min/1.73m 2 BUN Creatinine Ratio 20.6 Calcium 9.8 8.5-10.1 mg/dL Bilirubin Total 1.6 0.2-1.0 mg/dL Aspartate Amino Transferase 21 15-37 U/L Alanine Aminotransferase 30 16-63 U/L Alkaline Phosphatase 57 46-116 U/L Total Protein 7.6 6.4-8.2 g/dL Albumin Level 3.8 3.4-5.0 g/dL Globulin 3.8 Albumin Globulin Ratio 1.0 Performing Lab: see note - [facility] LIPID PROFILE Reviewed date:04/21/2025 07:35:49 PM Interpretation: Performing Lab: Notes/Report: [facility] , Triglycerides 86 <=150 mg/dL Cholesterol 175 <=200 mg/dL HDL Cholesterol 50 40-60 mg/dL > or =60 mg/dl - LOW CARDIOVASCULAR RISK <40 mg/dl - HIGH CARDIOVASCULAR RISK LDL Cholesterol Calculated 107.8 <100 mg/dl OPTIMAL 100-129 mg/dl NEAR OR ABOVE OPTIMAL 130-159 mg/dl BORDERLINE HIGH 160-189 mg/dl HIGH >190 mg/dl VERY HIGH VLDL CHOLESTEROL 17.2 Chol HDL Ratio 3.5 3.3 - 4.4 LOW RISK 4.4 - 7.1 AVERAGE RISK 7.1 - 11.0 MODERATE RISK >11.0 HIGH RISK Performing Lab: see note - [facility] LB INSULIN Reviewed date:04/24/2025 03:02:25 PM Interpretation: Performing Lab: Notes/Report: [facility] , Insulin 20.8 2.6-24.9 uIU/mL Performed at: [facility] [address] [id number] Design Director: Adam Byers PhD, Phone: [phone] Performing Lab: see note - [facility] LB GLYCOHEMOGLOBIN A1C Reviewed date:04/21/2025 07:35:49 PM Interpretation: Performing Lab: Notes/Report: [facility] , Glycohemoglobin A1C 5.5 4.5-6.2 % ADA RECOMMENDED LIMIT 4.0 - 6.0 ADA THERAPEUTIC TARGET < 7.0 ACTION SUGGESTED > 7.0 Estimated Average Glucose 111 Performing Lab: see note ML - [facility] LB FREE T3 Reviewed date:04/21/2025 07:35:49 PM Interpretation: Performing Lab: Notes/Report: [facility] , Free T3 2.64 2.18-3.98 pg/mL Performing Lab: see note ML - [facility] LB CBC AUTO DIFF Reviewed date:04/21/2025 07:35:49 PM Interpretation: Performing Lab: Notes/Report: [facility] , White Blood Count 6.4 4.0-11.0 10 3/uL Red Blood Count 5.68 4.70-6.10 10 6/uL Hemoglobin 16.9 14.0-18.0 g/dL Hematocrit 48.4 42.0-54.0 % Mean Corpuscular Volume 85.2 80.0-94.0 fL Mean Corpuscular Hemoglobin 29.8 25.9-34.0 pg Mean Corpuscular HGB Conc 34.9 29.9-35.2 g/dL Red Cell Distribution Width 14.3 11.0-15.0 % Platelet Count 218 150-450 10 3/uL Mean Platelet Volume 10.6 9.5-13.5 fL Neutrophils Percent Auto 60.3 43.0-75.0 % Lymphocytes Percent Auto 22.9 20.5-60.0 % Monocytes Percent Auto 12.5 1.7-12.0 % Eosinophils Percent Auto 3.6 0.9-7.0 % Basophils Percent Auto 0.5 0.2-2.0 % Immature Granulocytes Pct Auto 0.2 0.0-0.5 % Neutrophils Absolute Auto 3.9 1.4-6.5 10 3/uL Lymphocytes Absolute Auto 1.5 1.2-3.8 10 3/uL Monocytes Absolute Auto 0.8 0.3-0.8 10 3/uL Eosinophils Absolute Auto 0.2 0.0-0.7 10 3/uL Basophils Absolute Auto 0.0 0.0-0.1 10 3/uL Immature Granulocytes Abs Auto 0.01 0.00-0.03 10 3/uL Performing Lab: see note ML - [facility] LB CBC AUTO DIFF Reviewed date:07/11/2024 11:24:42 AM Interpretation: Performing Lab: Notes/Report: [facility] , White Blood Count 6.4 4.0-11.0 10 [...] Performing Lab: see note ML - [facility] LB FL upper GI w air Reviewed date:07/04/2024 08:44:38 PM Interpretation: Performing Lab: Notes/Report: Source Facility: [facility] [place] [address] [place] [address] Fluoroscopy Report Signed Patient: KIM NICHOLS MR#: [id number] : 1960 Acct:[id number] Age/Sex: 63 / M ADM Date: 07/02/24 Loc: [place] Attending Dr: Avi Yepez M.D. Ordering Physician: Avi Yepez M.D. Date of Service: 07/02/24 Procedure(s): FL upper GI w air Accession Number(s): [id number] cc: Avi Yepez M.D. [place] [address] Patient Name: KIM NICHOLS MRN: [id number] date: 1960 Sex: M Assigned Patient Location: [place] Current Patient Location: [place] Accession/Order Number: [id number] Exam Date: 07/02/2024 08:18 Report Date: 07/02/2024 11:26 At the request of: AVI YEPEZ Procedure: FL upper GI w air PROCEDURE: [...] Signed By: 07/02/24 1129 DD/ 1126 TD/TT: Senior Net Engineer: [place] [address] Fluoroscopy Report Signed Patient: KIM NICHOLS MR#: [id number] : 1960 Acct:[id number] Age/Sex: 63 / M ADM Date: 07/02/24 Loc: [place] Attending Dr: Puja Yepez M.D. Ordering Physician: Avi Yepez M.D. Date of Service: 07/02/24 Procedure(s): FL upp er GI w air Accession Number(s): [id number] cc: Avi Yepez M.D. The [place] [address] Patient Name: KIM NICHOLS MRN: [id number] date: 1960 Sex: M Assigned Patient Location: [place] Current Patient Location: [place] Accession/Order Numb er: [id number] Exam Date: 07/02/2024 08:18 Report Date: 07/02/2024 11:26 At the request of: AVI YEPEZ Procedure: FL upper GI w air PROCEDURE: [...] Signed By: 07/02/24 1129 DD/ 1126 TD/TT: Senior Net Engineer: [place] cineradiography Reviewed date:07/04/2024 08:44:38 PM Interpretation: Performing Lab: Notes/Report: Source Facility: [place] [address] [place] [address] Fluoroscopy Report Signed Patient: KIM NICHOLS MR#: [id number] : 1960 Acct:[id number] Age/Sex: 63 / M ADM Date: 07/02/24 Loc: [place] Attending Dr: Avi Yepez M.D. Ordering Physician: Avi Yepez M.D. Date of Service: 07/02/24 Procedure(s): FL cineradiography Accession Number(s): [id number] cc: Avi Yepez M.D. [address] [id number] Patient Name: KIM NICHOLS MRN: [id number] date: 1960 Sex: M Assigned Patient Location: [place] Current Patient Location: [place] Accession/Order Number: [id number] Exam Date: 07/02/2024 08:18 Report Date: 07/02/2024 11:26 At the request of: AVI YEPEZ Procedure: FL cineradiography PROCEDURE: FL upper GI [...] Signed By: 07/02/24 1128 DD/ 1126 TD/TT: Senior Net Engineer: [place] [address] Fluoroscopy Report Signed Patient: KIM NICHOLS MR#: [id number] : 1960 Acct:[id number] Age/Sex: 63 / M ADM Date: 07/02/24 Loc: [place] Attending Dr: Puja Yepez M.D. Ordering Physician: Avi Yepez M.D. Date of Service: 07/02/24 Procedure(s): FL cineradiography Accession Number(s): [id number] cc: Avi Yepez M.D. [address] [id number] Patient Name: KIM NICHOLS MRN: [id number] date: 1960 Sex: M Assigned Patient Location: [place] Current Patient Location: [place] Accession/Order Numb er: [id number] Exam Date: 07/02/2024 08:18 Report Date: 07/02/2024 11:26 At the request of: AVI YEPEZ Procedure: FL cineradiography PROCEDURE: FL upper GI [...] Signed By: 07/02/24 1128 DD/ 1126 TD/TT: Senior Net Engineer: XR thoracic spine 3V Reviewed date:04/21/2025 07:35:49 PM Interpretation: Performing Lab: Notes/Report: Source Facility: [place] [address] [place] [address] XRay Report Signed Patient: KIM NICHOLS MR#: [id number] : 1960 Acct:[id number] Age/Sex: 64 / M ADM Date: 04/21/25 Loc: LAB Attending Dr: Avi Yepez M.D. Ordering Physician: Avi Yepez M.D. Date of Service: 04/21/25 Procedure(s): XR thoracic spine 3V Accession Number(s): [id number] cc: Avi Yepez M.D. The [place] [address] Patient Name: KIM NICHOLS MRN: [id number] date: 1960 Sex: M Assigned Patient Location: LAB Current Patient Location: LAB Accession/Order Number: [id number] Exam Date: 04/21/2025 08:46 Report Date: 04/21/2025 [...] Ellis M.D. 04/21/2025 8:48 AM Dictation Location: [place] [address] Electronically authenticated by: [id number] Y Date: 04/21/2025 08:48 Dictated By: Stacy Ellis M.D. Signed By: 04/21/2550 DD/ TD/TT: Senior Net Engineer: [place] [address] XRay Report Signed Patient: KIM NICHOLS MR#: [id number] : 1960 Acct:[id number] Age/Sex: 64 / M ADM Date: 04/21/25 Loc: LAB Attending Dr: Puja Yepez M.D. Ordering Physician: Avi Yepez M.D. Date of Service: 04/21/25 Procedure(s): XR thoracic spine 3V Accession Number(s): [id number] cc: Avi Yepez M.D. [place] [id number] Patient Name: KIM NICHOLS MRN: [id number] date: 1960 Sex: M Assigned Patient Location: LAB Current Patient Location: LAB Accession/Order Numb er: [id number] Exam Date: 04/21/2025 08:46 Report Date: 04/21/2025 08:48 At the request of: AVI YEPEZ MD Procedure: XR thorac ic spine 3V THORACIC SPINE - 3 views: [...] R/XR thoracic spine 3V IMPRESSION: SUBTLE SCOLIOTIC CURVATURE AND DEGENERATIVE CHANGES. NO ACUTE BONY FINDINGS. Impression dictated by: Stacy Ellis M.D. 04/21/2025 8:48 AM Dictation Location: [place] [address] Electronically authenticated by: [id number] Y Date: 04/21/2025 08:48 Dictated By: Stacy Ellis M.D. Signed By: 04/21/25 0850 DD/ TD/TT: Senior Net Engineer: Reason For Referral Diagnosis 1 Gastro-esophageal re flux disease without esophagitis (K21.9) Referral Organization [facility] Referring Provider First Name Del Referring Provider Last Name Billy [facility] Referred Provider Rell Hall Referred Provider Specialty General Surg ahsan Referral Priority Routine Diagnosis 1 Chronic midline low back pain without sciatica (M54.50) Referral Organization [facility] Referring Provider First Name Del Referring Provider Last Name Billy Referring Provider [facility] Referred Provider Pain Management, [facility] Referred Provider Specialty Pain Medicin e Referral Priority Routine Medications Medication SIG (Take, Route, Frequency, Duration) Notes Start Date End Date Status Metoprolol Tartrate 25 MG TAKE 1 TABLET 2 TIMES DAILYWITH FOOD for 90 Active Gabapentin 300 MG TAKE 3 CAPSULES EVERY MORNING AND TAKE 2 CAPSULESAT BEDTIME Orally as directed for 90 days Active HYDROcodone-Acetaminop hen 5-325 MG 1 tablet as needed - max sdose 2/day Orally every 6 hrs PRN 02/17/2025 Active Klor-Con M20 20 MEQ TAKE 1 TABLET 2 TIMES DAILYWITH FOOD for 90 Active Chlorthalidone 25 MG TAKE 1 TABLET [...] Once a day for 7 days Active HYDROcodone-Acetaminop hen 5-325 MG 1 tablet as needed Orally every 6 hrs for 14 days 05/12/2025 Active Luzu 1 % 1 application to bottom and sides of both feet Externally Once a day for 14 days Patient failed OTC lotrimin and Rx lotrisone in past 10/07/2024 Active Social History Tobacco Use: Social History [...] Notes Problem Gastro-esophageal reflux disease without esophagitis (190957113) Gastro-esophageal reflux disease without esophagitis (K21.9) Active confirmed Problem Osteoarthritis of knee (905569597) Unilateral primary osteoarthritis, left knee (M17.12) Active confirmed Problem 51928401 Other intervertebral disc displacement, lumbosacral region (M51.27) Active confirmed Problem 779248109 Other specified symptoms and signs involving the circulatory and respiratory systems (R09.89) Active confirmed Problem Chest pain (19222433) Chest pain (R07.9) Active confirmed Problem Atrial fibrillation (16632419) Atrial fibrillation (I48.91) Active confirmed Problem History of cholecystectomy (339774010) History of cholecystectomy (Z90.49) Active confirmed Problem Osteoarthritis of knee (767987644) Knee osteoarthritis (M17.9) Active confirmed Problem Migraine (39683882) Migraine (G43.909) Active confirmed Problem Benign essential hypertension (5493655) Benign essential hypertension (I10) Active confirmed Problem Lumbar radiculopathy (855562412) Lumbar radiculopathy (M54.16) Active confirmed Problem Acute sinusitis (48829816) Acute sinusitis (J01.90) Active confirmed Problem Well adult (036610579) Well adult (Z00.00) Active confirmed Problem Erectile dysfunction (disorder) (669520843) Impotence (N52.9) Active confirmed Problem Willis cyst, 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) Active confirmed Problem Body mass index 40+ - morbidly obese (048661047) BMI 40.0-44.9, adult (Z68.41) Active confirmed Problem Atrial fibrillation (15173498) New onset a-fib (I48.91) Active confirmed Problem 610780135 Spinal stenosis, lumbar region without neurogenic claudication (M48.061) Active confirmed Problem Osteoarthritis of knee (107476758) Knee osteoarthritis (M17.10) Active confirmed Problem Dyspnea on exertion (47993809) MILIAN (dyspnea on exertion) (R06.00) Active confirmed Problem Chronic low back pain (finding) (047945957) Chronic midline low back pain without sciatica (M54.50) Active confirmed Vital Signs Heart Rate 76 /min 10/07/2024 Temperature 98 degrees Fahrenheit 10/07/2024 Respiratory Rate 16 /min 10/07/2024 Oximetry 98 % 10/07/2024 Blood pressure diastolic 68 mm Hg 04/11/2025 Height 70 in 04/11/2025 Blood pressure systolic 116 mm Hg 04/11/2025 Weight 264.8 lbs 04/11/2025 BMI 37.99 kg/m2 04/11/2025 Encounters Encounter Location Date Provider Diagnosis [facility] [address] [place] [address] 07/04/2024 Del Hoy Gastro-esophageal reflux disease without esophagitis K21.9 [facility] [address] [place] [facility] [place] [address] 10/04/2024 Del Hoy Benign essential hypertension I10 [facility] [address] [place] [address] [place] [address] 10/12/2024 Elis Salcedo [facility] [address] [place] [address] 02/17/2025 Del Hoy Benign essential hypertension I10 [facility] [address] [place] [facility] [place] [address] 04/21/2025 Del Hoy Elevated bilirubin R17 [facility] [address] [place] [facility] [place] [address] 05/12/2025 Del Hoy Knee osteoarthritis M17.10 [facility] [address] [place] [facility] [place] [address] 06/16/2024 Del Hoy Back pain M54.9 [facility] [address] [place] [facility] [place] [address] 06/21/2024 Del Hoy Gastro-esophageal reflux disease without esophagitis K21.9 [facility] [address] [place] [facility] [place] [address] 06/25/2024 Del Hoy [facility] [address] [address] 10/07/2024 Elis Salcedo Tinea pedis B35.3 [facility] [address] [place] [facility] [place] [address] 06/16/2024 Del Hoy Gastro-esophageal reflux disease without esophagitis K21.9 ; Benign essential hypertension I10 ; Chest pain R07.9 ; New onset a-fib I48.91 and Knee osteoarthritis M17.9 [facility] [address] [place] [facility] [place] [address] 09/10/2024 Del Hosvetlana Benign essential hypertension I10 ; Well adult Z00.00 and Chest pain R07.9 [facility] [address] [place] [address] 12/07/2024 Del Yepez Benign essential hypertension I10 ; Chronic midline low back pain without sciatica M54.50 and Atrial fibrillation I48.91 [facility] [address] [place] [address] 04/11/2025 Del Hoy Knee osteoarthritis M17.10 ; [...] symptoms recurred.Prior to that he tried several ahtc-uwj-icpfdef remedies which failed to provide relief in [...] 06/16/2024 Benign essential hypertension (ICD-10 - I10) 04/11/2025 Knee osteoarthritis (ICD-10 - M17.10) neecs new on 0 nees pain meds due to new knee 04/11/2025 Thoracic back pain (ICD-10 - M54.6) 04/11/2025 Well adult (ICD-10 - Z00.00) 06/16/2024 Back pain (ICD-10 - M54.9) 06/21/2024 Gastro-esophageal reflux disease without esophagitis (ICD-10 - K21.9) 07/04/2024 Gastro-esophageal reflux disease without esophagitis (ICD-10 - K21.9) 10/04/2024 Benign essential hypertension (ICD-10 - I10) 02/17/2025 Benign essential hypertension (ICD-10 - I10) 04/21/2025 Elevated bilirubin (ICD-10 - R17) 05/12/2025 Knee osteoarthritis (ICD-10 - M17.10) 06/16/2024 Chest pain (ICD-10 - R07.9) 12/07/2024 Atrial fibrillation (ICD-10 - I48.91) 09/10/2024 Chest pain (ICD-10 - R07.9) 06/16/2024 New onset a-fib (ICD-10 - I48.91) 06/16/2024 Knee osteoarthritis (ICD-10 - M17.9) Plan Of Treatment Pending Test Test Name Order Date MRI : Knee, left 04/16/2024 Event Monitor 05/25/2024 CMP (COMPLETE METABOLIC PANEL) 4 HEMOGLOBIN A1C (GLYCO) 11/13/2023 HEMOGLOBIN A1C (GLYCO) 04/11/2025 INSULIN, TOTAL 04/11/2025 LIPID PANEL (CHOL/TRIG/HDL/LDL) 11/13/19 24 LIPID PANEL (CHOL/TRIG/HDL/LDL) 04/11/20 25 CBC WITH DIFF 11/13/2023 PSA, PROSTATE-SPECIFIC ANTIGEN 4 Stress Test Lexiscan Persantine (Lexisca n Stress Test) 05/12/2024 XR Upper GI 06/21/2024 PROF 14(COMP METB) 04/21/2025 MRI LSPINE WO CON 03/25/2023 THYROID PANEL (T4/TSH/FREE T3) 4 THYROID PANEL (T4/TSH/FREE T3) 5 XR thoracic spine 3V 06/16/2024 PSA, SCREENING 04/11/2025 CMP (COMP MET ELY) w/eGFR CKD-EPI 2024 CBC WITH DIFF 04/11/2025 Next Appt Details Provider Name:Del Yepez, 10:30:00 AM, [address] [facility], [place], [address], Insurance Providers Payer Name Payer Address Payer Phone Subscriber Number Group Number Insured Name Patient Relationship to Insured Coverage Start Date Coverage End Date [employer] MARKOS STARR [address] [place] [phone] [id number] Stella Nichols Spouse - patient is the [...] polyp and col onoscopy to cecum 08/25/2024 Septal Plasty Laproscopic Gall Bladder Removal Right Knee Scope 07/29/24 Hospitalization History Reason Date(Month/Year) see above
--- OUTSIDE RECORDS SUMMARY | 2025-06-13 07:38 | XMS_ITS | Clinical Summary ---
Author Organization [facility] Address [address] [place] [address] Care Team Providers Care Retail Parts Pro Name Role Phone Jason Cervantes MD Primary Care Provider [phone] Allergies Active Allergy Reactions Criticality Noted Date [...] in the morning. 12/27/2024 Active HYDROcodone-sunshine taminophen ([place]) 5-325 mg tablet Take 1 tablet by [...] Resolved Date Class 3 obesity 03/04/2025 03/04/2025 Family History Medical History Relation Name Comments [...] 2024 09/03/2024, 09/12/2023, 10/14/2022, Additional history exists Influenza Vaccine (#1) 2025 , 09/12/2023, 10/03/2022, Additional history exists Colonoscopy 08/25/2034 08/25/2024, 07/02/2019 Colorectal Cancer Screening 08/25/2034 Zoster Vaccines Completed 03/22/2022, 08/25/2021 Pneumococcal Vaccine: Pediatrics (0 to 5 Years) [...] complete this topic Insurance [employer] Care Teams Retail Parts Pro Relationship Specialty Start Date End Date Jason Cervantes MD [address] [facility] [address] [address] PCP - General 09/09/24
--- OUTSIDE RECORDS SUMMARY | 2025-06-13 07:38 | XMS_ITS | Encounter Summary ---
Author Organization [facility] Address [address] [place] [address] Phone Care Team Providers Care Principal Bioinformatics Specialist Name Role Phone Jason Cervantes MD Primary Care Provider [phone] Encounter Details Date Type Department Care Team (Late st Contact Info) Description 09/26/2020 Orders Only [facility] [address] [place] [address] Conversion, Onbase Social History Tobacco Use Types [...] on filedocumented in this encounter Care Teams Principal Bioinformatics Specialist Relationship Specialty Start Date End Date Jason Cervantes MD [address] [place], [place] [phone] PCP - General 05/07/22 documented as of this encounter
--- OUTSIDE RECORDS SUMMARY | 2025-06-13 07:38 | XMS_ITS | Clinical Summary ---
Author Organization [facility] Address [address] [place] [address] Care Team Providers Care Frickertron Checker Name Role Phone Jason Cervantes MD Primary Care Provider [phone] Allergies Active Allergy Reactions Criticality Noted Date [...] Encounters Date Type Department Care Team Description 06/10/2025 Travel 04/20/2025 8:30 AM EDT Office Visit [facility] [address] [place] [address] Jr. Landon Thomas, DO Acute pain of left knee (Primary Dx); Arthritis of left knee 04/20/2025 Bamboo flowsheet [facility] [place] [facility] [address] [place] [address] Jr. Landon Thomas, 04/20/2025 Travel 04/17/2025 Travel 03/17/2025 Telephone [facility] [address] [place] [address] Justen Cuellar PA from Last 3 Months Family History Medical [...] Description 06/17/2025 9:00 AM EDT [facility] [address] [place] [address] Justen Cuellar PA [address] [place] [address] 07/14/2025 9:00 AM EDT Office Visit [facility] [address] [place] [address] Justen Cuellar, ANKITA [address] [place] [address] Health Maintenance Due Date Last Done Comments CT Colonography 1960 FIT-DNA 1960 FIT 1960 FOBT 1960 Sigmoidoscopy 1960 Influenza Vaccine (#1) 2025 , 09/12/2023, 10/03/2022, Additional history exists Colonoscopy 08/25/2034 08/25/2024, 07/02/2019, 03/2019 Colorectal Cancer Screening 08/25/2034 Procedures Procedure Name Priority Date/Time Associated Diagnosis Comments COLONOSCOPY Routine 07/02/2019 12:00 PM EDT from Last 3 Months or Most Recently Relevant to Health Maintenance Results * Colonoscopy (07/02/2019 12:00 PM EDT) Anatomical Region Laterality Modality Endoscopy 07/02/2019 12:0 0 PM EDT Narrative 07/02/2019 12:00 PM EDT PERFORMED AT [facility] LOCATION:[id number] Procedure Note CONVERSION, GENERIC - 03/12/2023 PERFORMED AT [facility] LOCATION:[id number] Severiano Allison MD ENDOSCOPY PROCEDURE ORDERABL ES Final Result from Last 3 Months or Most Recently Relevant to Health Maintenance Insurance [employer] Care Teams Frickertron Checker Relationship Specialty Start Date End Date Jason Cervantes MD PCP - General 05/05/24
--- OUTSIDE RECORDS SUMMARY | 2025-06-13 07:39 | XMS_ITS | Encounter Summary ---
Author Organization [facility] Address [address] [facility] [address] Care Team Providers Care Senior Applications Analyst Name Role Phone Jason Cervantes MD Primary Care Provider [phone] Encounter Details Date Type Department Care Team (Latest Contact Info) Description 06/10/2025 Travel Social History Tobacco Use Types Packs/Day [...] Description 06/17/2025 9:00 AM EDT Office Visit [facility] [address] [place] [address] Justen Cuellar PA [address] [place] [address] 07/14/2025 9:00 AM EDT Office Visit [facility] [address] [place] [address] Justen Cuellar PA [address] [place] [address] documented as of this encounter Visit Diagnoses Not on filedocumented in this encounter Care Teams Senior Applications Analyst Relationship Specialty Start Date End Date Jason Cervantes MD PCP - General 05/05/24 documented as of this encounter
--- OUTSIDE RECORDS SUMMARY | 2025-06-13 07:39 | XMS_ITS | Encounter Summary ---
Author Organization [facility] Address [address] [place] [address] Phone Care Team Providers Care Caustics Loader Name Role Phone Jason Cervantes MD Primary Care Provider [phone] Encounter Details Date Type Department Care Team (Late st Contact Info) Description 12/20/2021 Orders Only [facility] [address] [place] [address] Conversion, Onbase Social History Tobacco Use Types [...] on filedocumented in this encounter Care Teams Caustics Loader Relationship Specialty Start Date End Date Jason Cervantes MD [address] [facility] [place] [address] PCP - General 05/07/22 documented as of this encounter
--- OUTSIDE RECORDS SUMMARY | 2025-06-13 07:39 | XMS_ITS | Clinical Summary ---
Author Organization [facility] Address [address] [place] [id number] Phone Care Team Providers Care Operator Cavity Pump Name Role Phone Jason Cervantes MD Primary Care Provider [phone] Medications rosuvastatin (Crestor) 20 mg tabletIndication s:Hyperlipidemia [...] Screening 1961 Lipid Panel 1961 Sigmoidoscopy 1961 Yearly Adult Physical 1961 MMR Vaccines (1 of 1 - Stand miranda series) 1962 Hepatitis C Screening 1979 DTaP/Tdap/Td Vaccines (1 - Tdap) 1983 PSA Prostate Cancer Screening 2011 Pneumococcal Vaccine (1 of 1 - PCV) 2011 Zoster Vaccines (1 of 2) 2011 RSV High Risk: (Elderly (60+ ) or Population) (1 - Risk 60-74 years 1-dose series) 2021 COVID-19 Vaccine (2 - 2023-2 5 season) 2024 03/22/2022 Influenza Vaccine (#1) 2025 HIB Vaccines Aged Out No longer eligi ble based on patient's age to complete this topic HPV Vaccines Aged Out No longer eligi ble based on patient's age to complete this topic Hepatitis A Vaccines Aged Out No long [...] age to complete this topic Care Teams Operator Cavity Pump Relationship Specialty Start Date End Date Jason Cervantes MD [address] [place] [address] PCP - General 05/07/22
--- OUTSIDE RECORDS SUMMARY | 2025-06-13 07:41 | XMS_ITS | CCD ---
Author Organization [facility] Care Team Providers Care Technical Support Analyst Name Role Phone Unavailable Unavailable DR AVI YEPEZ Attending Unavailable MARLENI, DR CÁRDENAS Admitting Unavailable MARLENI, DR CÁRDENAS Attending Unavailable MARLENI, DR CÁRDENAS Admitting Unavailable MARLENI, DR CÁRDENAS Consulting Unavailable WEST, DR OSCAR Ingram Consulting Unavailable Avi Yepez Unavailable MD Avi Yepez Primary Care Provider DO Bijan Betts Jr Attending Provider [phone] Leslie DAVALOS, Dr. Reilly Hernandez Referring Unavailable [...] Care Provider MD Rell Adamson Attending Provider [phone] Avi Yepez Primary Care Unavailable Rell Adamson Attending Unavailable Rell Adamson Admitting Unavailable Rell ADAMSON Attending Unavailable Rell ADAMSON Attending Unavailable Rell ADAMSON Attending Unavailable Jam LANDA, Evelyne Bradley Attending Unavailable RICHARD BENITEZ Attending Unavailable RICHARD BENITEZ Attending Unavailable CJ MOHAMUD Attending Unavailable Avi Yepez MD Primary Care Provider CAR CUELLAR Attending Lacie THOMAS JR., ELIAS Saucedo Attending Wes THOMAS JR., ELIAS Saucedo Attending Wes THOMAS JR., ELIAS Saucedo Referring Wes THOMAS JR., ELIAS Saucedo Attending CAR Fox Attending MARIA E Whitney Attending ACR Ceballos Referring Unavailable CAR CUELLAR Attending Unavailable CAR CUELLAR Attending Unavailable Allergies Allergy Classification Reported Allergen(s) Allergy Type Date of Onset Reaction(s) Facility (20 sources) Amoxicillin; Translations: [amoxicillin] Drug Allergy 0 Hives, Rash [facility] (1 source) Amoxicillin Drug Allergy [facility] Repository (1 source) traMADol Drug Allergy [facility] Repository (3 sources) Penicillin; Translations: [penicillin] Drug Allergy Weal (disorder) [facility] General Surgery [place] (20 sources) traMADol; Translations: [TRAMADOL] Drug Allergy 4 Unknown [facility] Healthcare (1 source) Amoxicillin Drug Allergy 0 [facility] Repository Medications Current Medications Medication Drug Class(es) Dates Sig (Normalized) Sig (Original) acetaminophen 325 mg / HYDROcodone bitartrate 5 mg oral tablet (14 sources) Opioid Agonist Start: 07-08-2024 take 1 tablet by mouth twice daily as needed for pain Ohlman 325 mg-5 mg oral tablet 1 tab(s), Oral, BID as needed for pain, Refill(s) 0 Start Date: 07/08/24 Status: Ordered Start: 03-29-2024 End: 06-21-2024 take 1 tablet by mouth every twelve hours HYDROcodone-acetaminophen (Ohlman) 5-325 MG tablet Take 1 tablet by mouth every 12 (twelve) hours 03/29/2024 06/21/2024 Discontinued (Therapy completed) Start: 09-26-2020 End: 07-31-2024 take 1 tablet by mouth every six hours for pain HYDROcodone-acetaminophen (Ohlman) 5-325 MG tablet Indications: Post-op pain Take 1 tablet by mouth every 6 (six) hours if needed for severe pain for up to 3 days 12 tablet 07/28/2024 07/31/2024 Active Ohlman 5-325 MG T ABS TAKE 1 TABLET [...] Start: 05-27-2023 take 1 capsule by mo [facility] twice daily gabapentin (NEURONTIN) 300 [...] [Coronary atherosclerosis of unspecified type of vessel, tlingit & ha[place] or graft] Onset: 03-04-2025 07-08-2024 Chronic Diabetes [...] Range Facility Office Visiton 03-04-2025 Follow-up visit [id number] Kim Nichols 1960 M Date Provider Department Center 03/04/2025 [id number] MOHAMUD CARD [facility] Family History Problem Relation Age of Onset Brain Aneurysm Mother Stroke Father Heart attack Sister Family Status - Relation Status Age at Mother Father Sister Level of Service:36614 NM OFFICE/OUTPATIENT ESTABLISHED LOW MDM 20 MIN Reason for Visit and Comments: Coronary Artery Disease [187] - Denies SOB. Atrial Fibrillation [80] - On Eliquis, denies bleeding. Denies palpitations and syncope. Hyperlipidemia [182] - Had lipid panel in May 2024. On rosuvastatin. Hypertension [710541] Chest Pain [297985] - Intermittent, blames his hiatal hernia and back pain. Normal [facility] No Panel Informationon 02-18 ANKITA Stapleton 02/18/2025 [...] and draped in the usual sterile fashion. [facility] Healthcare Office Visiton 09-09-2024 Follow-up visit [id number] Kim Nichols 1960 M Date Provider Department Center 09/09/2024 3848-RICHARD BENITEZ RAVIN [facility] Family History Problem Relation Age of Onset Brain Aneurysm Mother Stroke Father Heart attack Sister Family Status - Relation Status Age at Mother Father Sister Level of Service:48042 NM OFFICE/OUTPATIENT ESTABLISHED LOW MDM 20 MIN Normal [facility] Ambulatory Visit Summaryon 1 11-08-2023 Ambulatory Visit Summary Ambulatory Visit Summary KIM NICHOLS :1960 Visit Date:09/08/2024 Ambulatory Visit Instructions Your Care Team Attending Physician - SNOW LANDA, Rell Marr Primary Care Physician - Avi Yepez MD This Is Your Medications List acetaminophen-hydrocodone (Ohlman 325 mg-5 mg oral tablet) apixaban (Eliquis [...] What How Much When Instructions Unchanged acetaminophen-hydrocodone (Ohlman 325 mg-5 mg oral tablet) 1 Tablets [...] for choosing us for your care. Fátima [facility] General Surgery Office/Clini c Noteon 09-08-2024 [...] Tab, 25 mg= 1 tab(s), Oral, BID Ohlman 325 mg-5 mg oral tablet, 1 tab(s), [...] virus vaccine, inactivated 09/12/2023 Recorded SARS-CoV-2 (COVID-19) [id number].[id number] 10/14/2022 Recorded influenza virus vaccine, inactivated 10/03/2022 Recorded SARSCoV2 mRNA(wlmitdwmy-avdz-qhcngt) vac 03/22/2022 Recorded SARS-CoV-2 (COVID-19) mRNA BNT-162b2 vax 09/03/2021 Recorded influenza virus vaccine, inactivated 08/25/2021 Recorded SARS-CoV-2 (COVID-19) mRNA BNT-162b2 vax 02/13/2021 Recorded SARS-CoV-2 (COVID-19) mRNA BNT-162b2 vax 01/20/2021 Recorded SARS-CoV-2 (COVID-19) mRNA BNT-162b2 vax 01/13/2021 Recorded SARS-CoV-2 (COVID-19) mRNA BNT-162b2 vax 12/23/2020 Recorded influenza virus vaccine, inactivated 08/28/2020 Recorded Normal [facility] Comment on above: Result Comment: Elec tronically Signed By: SNOW LANDA, Rell Mccormick\Date and Time Signed: 09/08/24 16:32 EST Reminderson 08-26-2024 Reminders Reminders From: María Ayala LPN To: GSN - Clinical; Sent: 08/26/2024 11:53:39 EDT Show up: 07/26/2034 07:00:00 EDT Subject: colonoscopy recall Due Date/Time: 08/25/2034 07:00:00 EDT Reminder/Recall Patient due for screening colonoscopy 08/25/2034. Normal [facility] Pathology Request for Lab Co rpon 08-25-2024 Pathology Request for Lab Le Normal [facility] Comment on above: Order Comment: PATHO LOGY GI SPECIMEN Result Comment: See report. Scanned copy available in EMR. PERFORMED BY: [place] [address] PATHOLOGIST GENETICIST MICHAEL LEMUS M.D. Performed By: #### P ATH TO [facility] #### [address] Ambulatory Visit Summaryon 0 07-20-2024 Ambulatory [...] prescribing physician if questions or concerns acetaminophen-hydrocodone (Ohlman 325 mg-5 mg oral tablet) apixaban (Eliquis [...] What How Much When Instructions Unchanged acetaminophen-hydrocodone (Ohlman 325 mg-5 mg oral tablet) 1 Tablets [...] for choosing us for your care. Normal [facility] ALL CBC WITH AUTO DIFFon BASOPHILS ABSOLUTE AUTO 0.0 [facility] Healthcare Basophils/100 WBC (Bld) 0.5 % 0.2 - 2.0 % [facility] Eosinophils/100 WBC (Bld) 3.0 % 0.9 - 7.0 % [facility] Erythrocyte distribution width (RBC) [Ratio] 13.9 % 11.0 - 15.0 % [facility] Hematocrit (Bld) [Volume fraction] 46.2 % 42.0 - 54.0 % [facility] Hemoglobin (Bld) [Mass/Vol] 15.6 g/dL 14.0 - 18.0 g/dL [facility] IMMATURE GRANULOCYTES ABS AUTO 0.03 [facility] Immature granulocytes/100 WBC (Bld) 0.5 % 0.0 - 0.5 % [facility] LYMPHOCYTES ABSOLUTE AUTO 1.4 [facility] Lymphocytes/100 WBC (Bld) 22.3 % 20.5 - 60.0 % [facility] MCH (RBC) [Entitic mass] 28.9 pg 25.9 - 34.0 pg [facility] MCHC (RBC) [Mass/Vol] 33.8 g/dL 29.9 - 35.2 g/dL [facility] Healthcare MCV (RBC) [Entitic vol] 85.7 fL 80.0 - 94.0 fL [facility] MONOCYTES ABSOLUTE AUTO 0.7 [facility] Monocytes/100 WBC (Bld) 11.6 % 1.7 - 12.0 % [facility] NEUTROPHILS ABSOLUTE AUTO 4.0 [facility] Neutrophils/100 WBC (Bld) 62.1 % 43.0 - 75.0 % [facility] Platelet mean volume (Bld) [Entitic vol] 10.5 fL 9.5 - 13.5 fL [facility] Healthcare TBH EO # 0.2 [facility] TB PLT 246 [facility] TBH RBC 5.39 [facility] Healthcare TB WBC 6.4 [facility] Healthcare Office Visiton 06-11-2024 Follow-up visit [id number] Kim Nichols 1960 M Date Provider Department Center 06/11/2024 3848-RICHARD BENITEZ CARD [facility] Family History Problem Relation Age of Onset Brain Aneurysm Mother Stroke Father Heart attack Sister Family Status - Relation Status Age at Mother Father Sister Level of Service:35140 NM OFFICE/OUTPATIENT NEW MODERATE MDM 45 MINUTES Reason for Visit and Comments: New Patient [Other] - CHEST PAIN/AFIB Normal [facility] CNOVon 2023 CNOV Office Visit (SPSLUH ) KIM NICHOLS ([id number]) 1960 M Date Time Provider Department 08/04/23 [...] opioids Medications: See medication reconciliation list in [facility] MEDICATIONS: Gabapentin, Ohlman, Tylenol Have you ever seen a pain [...] issues. 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 [facility] 07-08-2023 [facility] Telephone (SPNMMN) KIM NICHOLS ([id number]) 1960 M Date Time Provider Department 07/08/23 SHAISHANNAN NIKOLAY G SPNMMN During your visit today, we recorded the following information about you: Stacy Gallagher RN 07/08/2023 12:56 PM Signed Post Spine Injection phone call: [phone] on 07/08/23 Patient denies fever, chills, new [...] appointment 2-4 weeks post procedure by calling [phone] Patient does not have any questions or [...] Health HISTORY PHYSICALon HISTORY PHYSICAL HNO ID: [id number] Author: Sherice Galvin APRN.DANCING INSTRUCTOR Service: ? Author Type: Nurse Practitioner Type: [...] OPERATIVE NOon 07-01-2023 OPERATIVE NO HNO ID: [id number] Author: Nikolay Camp DO Service: Physical Medicine AND Rehabilitation Author Type: Physician Type: Operative Report Filed: 07/01/2023 9:40 AM Note Text: PROCEDURE REPORT Surgery/Procedure Date: July 01, 2023 Interventionalist: Nikolay Camp DO Procedure(s): Left L5 transforaminal epidural steroid injection Pre-Op/Pre-Procedure Diagnosis: Lumbar radiculopathy Post-Op Diagnosis: same SUBJECTIVE: Kim Nichols is a 62 year old male, who [facility] for a left L5 transforaminal epidural steroid injection. This is his first (1) procedure. 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 Pain is central low [...] in stable condition. Nikolay Camp DO Normal [facility] 06-26-2023 [facility] Telephone (SPNMMN) ESPERANZAKIM SEGURA ([id number]) 1960 M Date Time Provider Department 06/26/23 NIKOLAY CAMP [facility] During your visit today, we recorded the following information about you: Oscar Rollins LPN 06/26/2023 9:20 AM Signed Phoned patient and message left for Kim to confirm appointment for Kim Nichols for spine procedure on 07/01/2023. Patient notified that [place] will call patient the night before with the time to arrive for injection. Patient verbalized understanding of the following: -Provided education on spine procedure and answered questions related to spine injection procedure. -Technical Project Manager is needed to drive patient home. [...] to report. Diabetic: No Patient given number [phone], spine injections schedulers, if there is any [...] Status:Closed by OSCAR ROLLINS on 06/26/23 Normal [facility] CNOVon 06-02-2023 CNOV Office Visit (SPNSMN ) KIM NICHOLS ([id number]) 1960 M Date Time Provider Department 06/02/23 1:40 PM DARREN ELIZABETH SPNSMN During your visit today, we recorded the following information about you: Pulse Respiration Blood pressure Weight 63/minute 18/minute 128/84 117 kg Height 1.829 m Darren Elizabeth APRN.DANCING INSTRUCTOR 06/03/2023 1:01 PM Signed SPINE SURGERY OUTPATIENT [...] with him pain. He also is prescribed Ohlman for breakthrough pain which he only takes [...] Weight Tips; Status:Complete - Retrospective Authorization; Done: [id number] Some eating tips that can help you lose weight.; Status:Complete - Retrospective Authorization; Done: [id number] Coronary disease, Hyperlipidemia Renew: Aspirin EC Low Dose 81 MG Oral Tablet Delayed Release; TAKE 1 TABLET DAILY DIRECTED Hyperlipidemia Renew: Rosuvastatin Calcium 20 MG Oral Tablet; take 1 tablet by mouth at bedtime SocHx: Never a smoker Tobacco Use Screening; Status:Complete; Done: [id number] Patient Instructions Please bring all medicines, vitamins, [...] MG Oral CapsuleTAKE 1 CAPSULE TWICE DAILY. Ohlman 5-325 MG TABSTAKE 1 TABLET EVERY 4 [...] negative for complaint. Vitals Vital Signs Recorded: [id number] 11:22AM Heart Rate64, R Radial Uujvbsbs632, RUE, Sitting Fxrgzyppt62, RUE, Sitting Height6 ft Cgzlux740 lb BMI Yiwxfjfatl92.21 kg/m2 BSA Calculated2.41 Tobacco Useb) No PHQ-2 [...] no hep (more content not included)... Normal [facility] Tobacco Screening.on 023 Adult depression screening assessment No -[facility] [address] DO Work Phone: Tobacco use status CP b) No -[facility] [address] DO Work Phone: Tobacco Screening.on 022 Adult depression screening assessment No [facility] [address] DO Work Phone: Fall risk assessment c) Not medically indicated [facility] [address] DO Work Phone: Tobacco use status CPHS b) No MP-[facility] [address] DO Work Phone: H PYLORI ANTIBODY IGGon 11-28 H. PYLORI IGG ABS 0.45 Index Value Normal 0.00-0.79 T [facility] Comment on above: Result Comment: Nega tive <0.80 Equivocal 0.80 - 0.89 Positive >0.89 Performed By: #### L IPID, TSH, T7, URIC, CMP #### [facility] [address] [place] [address] Dr. Conor Chan INSULINon 12-21-2021 Insulin 55.2 uIU/mL Critically high 2.6-24.9 [facility] Comment on above: Performed By: #### I NSULIN #### [facility] [address] [place] [address] Dr. Conor Chan TESTOSTERONE, TOTALon 2021 Testosterone [Mass/Vol] 380 ng/dL Normal 264-916 [facility] Comment on above: Result Comment: Adul t male reference interval is based on a population of healthy nonobese males (BMI <30) between 19 and 39 years old. Travon, et.al. JCEM 2017,102;7111-5328. PMID: [id number]. Performed By: #### L IPID, TSH, T7, URIC, CMP #### [facility] [address] [place] [address] Dr. Conor Chan CBC AUTO DIFFon 12-20-2021 BASO # 0.0 103/ul Normal 0.0-0.1 [facility] Comment on above: Performed By: #### C BC #### [facility] [address] [place] [address] Dr. Conor Chan Basophils/100 WBC (Bld) 0.5 % Normal 0.2-2.0 [facility] Comment on above: Performed By: #### C BC #### [facility] [address] [place] [address] Dr. Conor Chan EO # 0.2 103/ul Normal 0.0-0.7 [facility] Comment on above: Performed By: #### C BC #### [facility] [address] [place] [address] Dr. Conor Chan Eosinophils/100 WBC (Bld) 3.5 % Normal 0.9-7.0 [facility] Comment on above: Performed By: #### C BC #### [facility] [address] [place] [address] Dr. Conor Chan Erythrocyte distribution width (RBC) [Ratio] 13.8 % Normal 11.0-15.0 [facility] Comment on above: Performed By: #### C BC #### [facility] [address] [place] [address] Dr. Conor Chan Hematocrit (Bld) [Volume fraction] 48.5 % Normal 42.0-54.0 [facility] Comment on above: Performed By: #### C BC #### [facility] [address] [place] [address] Dr. Conor Chan Hemoglobin (Bld) [Mass/Vol] 16.3 g/dL Normal 14.0-18.0 [facility] Comment on above: Performed By: #### C BC #### [facility] [address] [place] [address] Dr. Conor Chan IG # 0.02 10e3/ul Normal 0.00-0.03 [facility] Comment on above: Performed By: #### C BC #### [facility] [address] [place] [address] Dr. Conor Chan IG % 0.3 % Normal 0.0-0.5 [facility] Comment on above: Performed By: #### C BC #### [facility] [address] [place] [address] Dr. Conor Chan LYMPH # 1.4 103/ul Normal 1.2-3.8 [facility] Comment on above: Performed By: #### C BC #### [facility] [address] [place] [address] Dr. Conor Chan Lymphocytes/100 WBC (Bld) 21.7 % Normal 20.5-60.0 [facility] Comment on above: Performed By: #### C BC #### [facility] [address] [place] [address] Dr. Conor Chan MANUAL DIFF REQ NO Normal [facility] Comment on above: Performed By: #### C BC #### [facility] [address] [place] [address] Dr. Conor Chan MCH (RBC) [Entitic mass] 28.5 pg Normal 25.9-34.0 [facility] Comment on above: Performed By: #### C BC #### [facility] [address] [place] [address] Dr. Conor Chan MCHC (RBC) [Mass/Vol] 33.6 g/dL Normal 29.9-35.2 [facility] Comment on above: Performed By: #### C BC #### [facility] [address] [place] [address] Dr. Conor Chan MCV (RBC) [Entitic vol] 84.9 fL Normal 80.0-94.0 [facility] Comment on above: Performed By: #### C BC #### [facility] [address] [place] [address] Dr. Conor Chan MONO # 0.6 103/ul Normal 0.3-0.8 [facility] Comment on above: Performed By: #### C BC #### [facility] [address] [place] [address] Dr. Conor Chan Monocytes/100 WBC (Bld) 9.3 % Normal 1.7-12.0 [facility] Comment on above: Performed By: #### C BC #### [facility] [address] [place] [address] Dr. Conor Chan NEUT # 4.1 103/ul Normal 1.4-6.5 [facility] Comment on above: Performed By: #### C BC #### [facility] [address] [place] [address] Dr. Conor Chan Neutrophils/100 WBC (Bld) 64.7 % Normal 43.0-75.0 [facility] Comment on above: Performed By: #### C BC #### [facility] [address] [address] [address] Conor Chan Platelet mean volume (Bld) [Entitic vol] 9.8 fL Normal 9.5-13.5 [facility] Comment on above: Performed By: #### C BC #### [facility] [address] [address] [address] Conor Chan PLT 235 103/ul Normal 150-450 [facility] Comment on above: Performed By: #### C BC #### [facility] [address] [address] [address] Conor Chan RBC 5.71 106/ul Normal 4.70-6.10 [facility] Comment on above: Performed By: #### C BC #### [facility] [address] [address] [address] Conor Chan WBC 6.4 103/ul Normal 4.0-11.0 [facility] Comment on above: Performed By: #### C BC #### [facility] [address] [place] [address] Dr. Conor Chan FREE THYROXINE INDEX T7on FTI 2.89 Normal [facility] Comment on above: Performed By: #### L IPID, TSH, T7, URIC, CMP #### [facility] [address] [place] [address] Dr. Conor Chan T3U 34.0 % Normal 23.5-40.5 [facility] Comment on above: Performed By: #### L IPID, TSH, T7, URIC, CMP #### [facility] [address] [address] [address] Conor Chan T4 [Mass/Vol] 8.50 ug/dL Normal 5.53-11.00 [facility] Comment on above: Performed By: #### L IPID, TSH, T7, URIC, CMP #### [facility] [address] [place] [address] Dr. Conor Chan GLYCOHEMOGLOBIN A1Con 2021 ADA RECOMMENDATION ADA THERAPEUTIC TARG ET 6.0 - 7.0 ACTION SUGGESTED > 7.0 Normal [facility] Comment on above: Performed By: #### A 1C #### [facility] [address] [address] [address] Conor Chan Glucose [Mass/Vol] 126 mg/dL Normal [facility] Comment on above: Performed By: #### A 1C #### [facility] [address] [address] [address] Conor Chan HbA1c (Bld) [Mass fraction] 6.0 % Normal <=6.0 [facility] Comment on above: Performed By: #### A 1C #### [facility] [address] [place] [address] Dr. Conor Chan LIPID PROFILEon 12-20-2021 CHOL-HDL RATIO NORM SEE BELOW Normal [facility] Comment on above: Result Comment: 3.3 - 4.4 LOW RISK 4.4 - 7.1 AVERAGE RISK 7.1 - 11.0 MODERATE RISK >11.0 HIGH RISK Performed By: #### L IPID, TSH, T7, URIC, CMP #### [facility] [address] [address] [address] Conor Chan Cholesterol [Mass/Vol] 161 mg/dL Normal <=200 [facility] Comment on above: Performed By: #### L IPID, TSH, T7, URIC, CMP #### [facility] [address] [address] [address] Conor Chan Cholesterol in HDL [Mass/Vol] 50 mg/dL Normal [facility] Comment on above: Performed By: #### L IPID, TSH, T7, URIC, CMP #### [facility] [address] [address] [address] Conor Chan Cholesterol in LDL [Mass/Vol] 96.0 mg/dL Normal [facility] Comment on above: Performed By: #### L IPID, TSH, T7, URIC, CMP #### [facility] [address] [place] [address] Dr. Conor Chan Cholesterol.total/ Cholesterol in HDL [Mass ratio] 3.2 {ratio} Normal [facility] Comment on above: Performed By: #### L IPID, TSH, T7, URIC, CMP #### [facility] [address] [address] [address] Conor Chan HDL NORMAL > or = 60 mg/dl - LO W CARDIOVASCULAR RISK <40 mg/dl - HIGH CARDIOVASCULAR RISK Normal [facility] Comment on above: Performed By: #### L IPID, TSH, T7, URIC, CMP #### [facility] [address] [address] [address] Conor Chan LDL CALC NORMAL SEE BELOW Normal [facility] Comment on above: Result Comment: <100 mg/dl OPTIMAL 100 - 129 mg/dl NEAR OR ABOVE OPTIMAL 130 - 159 mg/dl BORDERLINE HIGH 160 - 189 mg/dl HIGH >190 mg/dl VERY HIGH Performed By: #### L IPID, TSH, T7, URIC, CMP #### [facility] [address] [address] [address] Conor Chan Triglyceride [Mass/Vol] 75 mg/dL Normal <=150 [facility] Comment on above: Performed By: #### L IPID, TSH, T7, URIC, CMP #### [facility] [address] [address] [address] Conor Chan VLDL CALC 15.0 mg/dL Normal [facility] Comment on above: Performed By: #### L IPID, TSH, T7, URIC, CMP #### [facility] [address] [address] [address] Conor Chan PROF 14(COMP METB)on 022 Albumin [Mass/Vol] 3.7 g/dL Normal 3.5-5.0 [facility] Comment on above: Performed By: #### L IPID, TSH, T7, URIC, CMP #### [facility] [facility] [address] [address] [address] Conor Chan Albumin/Globulin [Mass ratio] 0.9 {ratio} Normal [facility] Comment on above: Performed By: #### L IPID, TSH, T7, URIC, CMP #### [facility] [address] [address] [address] Conor Chan ALP [Catalytic activity/Vol] 58 U/L Normal 38-126 [facility] Comment on above: Performed By: #### L IPID, TSH, T7, URIC, CMP #### [facility] [address] [place] [address] Dr. Conor Chan ALT [Catalytic activity/Vol] 40 U/L Normal 21-72 [facility] Comment on above: Performed By: #### L IPID, TSH, T7, URIC, CMP #### [facility] [address] [place] [address] Dr. Conor Chan Anion gap [Moles/Vol] 5.5 mmol/L Normal [facility] Comment on above: Performed By: #### L IPID, TSH, T7, URIC, CMP #### [facility] [address] [place] [address] Dr. Conor Chan AST [Catalytic activity/Vol] 18 U/L Normal 17-59 [facility] Comment on above: Performed By: #### L IPID, TSH, T7, URIC, CMP #### [facility] [address] [place] [address] Dr. Conor Chan Bilirubin [Mass/Vol] 0.5 mg/dL Normal 0.2-1.3 [facility] Comment on above: Performed By: #### L IPID, TSH, T7, URIC, CMP #### [facility] [address] [place] [address] Dr. Conor Chan Calcium [Mass/Vol] 9.9 mg/dL Normal 8.4-10.2 [facility] Comment on above: Performed By: #### L IPID, TSH, T7, URIC, CMP #### [facility] [address] [place] [address] Dr. Conor Chan Chloride [Moles/Vol] 97 mmol/L Critically low 98-107 [facility] Comment on above: Performed By: #### L IPID, TSH, T7, URIC, CMP #### [facility] [address] [place] [address] Dr. Conor Chan CO2 [Moles/Vol] 30.7 mmol/L Critically high 22.0-30.0 [facility] Comment on above: Performed By: #### L IPID, TSH, T7, URIC, CMP #### [facility] [address] [place] [address] Dr. Conor Chan Creatinine [Mass/Vol] 1.04 mg/dL Normal 0.66-1.25 [facility] Comment on above: Performed By: #### L IPID, TSH, T7, URIC, CMP #### [facility] [address] [place] [address] Dr. Conor Chan EGFR-AF EGYPTIAN >60 Normal >=60 [facility] Comment on above: Performed By: #### L IPID, TSH, T7, URIC, CMP #### [facility] [address] [place] [address] Dr. Conor Chan EGFR-NON AF EGYPTIAN >60 Normal >=60 [facility] Comment on above: Performed By: #### L IPID, TSH, T7, URIC, CMP #### [facility] [address] [place] [address] Dr. Conor Chan Globulin (S) [Mass/Vol] 4.2 g/dL Normal [facility] Comment on above: Performed By: #### L IPID, TSH, T7, URIC, CMP #### [facility] [address] [place] [address] Dr. Conor Chan Glucose [Mass/Vol] 122 mg/dL Critically high 74-106 T [facility] Comment on above: Performed By: #### L IPID, TSH, T7, URIC, CMP #### [facility] [address] [place] [address] Dr. Conor Chan Potassium [Moles/Vol] 3.2 mmol/L Critically low 3.4-5.0 [facility] Comment on above: Performed By: #### L IPID, TSH, T7, URIC, CMP #### [facility] [address] [place] [address] Dr. Conor Chan Protein [Mass/Vol] 7.9 g/dL Normal 6.1-8.2 [facility] Comment on above: Performed By: #### L IPID, TSH, T7, URIC, CMP #### [facility] [address] [place] [address] Dr. Conor Chan Sodium [Moles/Vol] 130 mmol/L Critically low 137-145 [facility] Comment on above: Performed By: #### L IPID, TSH, T7, URIC, CMP #### [facility] [address] [place] [address] Dr. Conor Chan Urea nitrogen [Mass/Vol] 15.0 mg/dL Normal 9.0-20.0 [facility] Comment on above: Performed By: #### L IPID, TSH, T7, URIC, CMP #### [facility] [address] [place] [address] Dr. Conor Chan Urea nitrogen/Creatinin e [Mass ratio] 14.4 mg/mg Normal [facility] Comment on above: Performed By: #### L IPID, TSH, T7, URIC, CMP #### [facility] [address] [place] [address] Dr. Conor Chan TSHon 12-20-2021 TSH 2.122 uIU/mL Normal 0.470-4.680 [facility] Comment on above: Performed By: #### L IPID, TSH, T7, URIC, CMP #### [facility] [address] [place] [address] Dr. Conor Chan TSH RANGE SEE BELOW Normal [facility] Comment on above: Result Comment: <0.3 4 UIU/ml HYPERTHYROID 0.34-5.60 UIU/ml EUTHYROID >5.60 UIU/ml HYPOTHYROID Performed By: #### L IPID, TSH, T7, URIC, CMP #### [facility] [address] [place] [address] Dr. Conor Chan URIC ACID SERUMon 12-20-2021 Urate [Mass/Vol] 7.3 mg/dL Normal 3.5-8.5 [facility] Comment on above: Performed By: #### L IPID, TSH, T7, URIC, CMP #### [facility] [address] [place] [address] Dr. Conor Chan XR LSPINE MIN 4 [...] moderate degenerative changes L5-S1 Electronically authenticated by: OSACR FRANCO Date: 2021-12-20 10:06 Normal [facility] Vital Signs Date Time Vital Sign Value Performing Clinician Facility 07-20-2024 13:29-0400 Blood Pressure Location Rell ADAMSON [facility] 07-20-2024 13:29-0400 Diastolic blood pressure 78 mm[Hg] Rell ADAMSON [facility] 07-20-2024 13:29-0400 Heart rate 72 /min Rell ADAMSON [facility] 07-20-2024 13:29-0400 Respiratory rate 16 /min Rell ADAMSON [facility] 07-20-2024 13:29-0400 Systolic blood pressure 116 mm[Hg] Rell ADAMSON [facility] 07-08-2024 09:47-0400 Body height 182.9 cm Car LUCIANO Work Phone: [facility] 07-08-2024 09:47-0400 Body mass index (BMI) [Ratio] 36.84 kg/m2 Car LUCIANO Work Phone: [facility] 07-08-2024 09:47-0400 Body weight 123.2 kg Car LUCIANO Work Phone: [facility] 2023 08:03-0400 Body height 182.9 cm Juan R Ling MD Work Phone: [facility] 2023 08:03-0400 Body weight 120.2 kg Juan R Ling MD Work Phone: [facility] 06-02-2023 13:26-0400 Body height 182.9 cm Darren lEizabeth CONTROL CHEMIST.DANCING INSTRUCTOR Work Phone: [facility] 06-02-2023 13:26-0400 Body weight 117.03 kg Darren Elizabeth CONTROL CHEMIST.DANCING INSTRUCTOR Work Phone: [facility] 06-02-2023 13:26-0400 Diastolic blood pressure 84 mm[Hg] Darren Elizabeth CONTROL CHEMIST.DANCING INSTRUCTOR Work Phone: [facility] 06-02-2023 13:26-0400 Heart rate 63 /min Darren Elizabeth CONTROL CHEMIST.DANCING INSTRUCTOR Work Phone: [facility] 06-02-2023 13:26-0400 Respiratory rate 18 /min Darren Elizabeth CONTROL CHEMIST.DANCING INSTRUCTOR Work Phone: [facility] 06-02-2023 13:26-0400 SaO2% (BldA) [Mass fraction] 95 % Darren Elizabeth CONTROL CHEMIST.DANCING INSTRUCTOR Work Phone: [facility] 06-02-2023 13:26-0400 Systolic blood pressure 128 mm[Hg] Darren Elizabeth CONTROL CHEMIST.DANCING INSTRUCTOR Work Phone: [facility] 05-13-2023 11:22-0400 Body height 182.88 cm Avi Archery Work Phone: [facility] [place] 250 DO Work Phone: 05-13-2023 11:22-0400 Body mass index (BMI) [Ratio] 36.21 kg/m2 Avi Lauren Hoy Work Phone: [facility] 250 DO Work Phone: 05-13-2023 11:22-0400 Body surface area Derived from formula 2.41 m2 Avi Lauren Hoy Work Phone: [facility] [place] 250 DO Work Phone: 05-13-2023 11:22-0400 Body weight 121.11 kg Avi Lauren Hoy Work Phone: [facility] 250 DO Work Phone: 05-13-2023 11:22-0400 Diastolic blood pressure 78 mm[Hg] Avi M Hoy Work Phone: [facility] 250 DO Work Phone: 05-13-2023 11:22-0400 Heart rate 64 /min Avi Lauren Hoy Work Phone: [facility] 250 DO Work Phone: 05-13-2023 11:22-0400 Systolic blood pressure 132 mm[Hg] Avi M Hoy Work Phone: [facility] 250 DO Work Phone: 05-07-2022 11:36-0400 Body height 182.88 cm Avi Lauren Hoy Work Phone: [facility] 250 DO Work Phone: 05-07-2022 11:36-0400 Body mass index (BMI) [Ratio] 38.38 kg/m2 Avi M Hoy Work Phone: [facility] 250 DO Work Phone: 05-07-2022 11:36-0400 Body surface area Derived from formula 2.47 m2 Avi Lauren Hoy Work Phone: [facility] 250 DO Work Phone: 05-07-2022 11:36-0400 Body weight 128.37 kg Avi M Hoy Work Phone: [facility] 250 DO Work Phone: 05-07-2022 11:36-0400 Diastolic blood pressure 72 mm[Hg] Avi M Hoy Work Phone: [facility] [place] 250 DO Work Phone: 05-07-2022 11:36-0400 Heart rate 66 /min Avi Aguilar Hoy Work Phone: [facility] 250 DO Work Phone: 05-07-2022 11:36-0400 Systolic blood pressure 110 mm[Hg] Avi Aguilar Hoy Work Phone: [facility] 250 DO Work Phone: Encounters Encounter Date [...] Not Available Start: 03-04-2025 End: 03-04-2025 ambulatory [facility] Start: 02-18-2025 End: 02-18-2025 Office outpatient visit 15 minutes Car Cuellar PA Work Phone: [facility] Comment on above: Acute pain of left k nee (Primary Dx); Arthritis of left knee; Knee instability, left Start: 02-18-2025 End: 02-18-2025 ambulatory CAR CUELLAR Not Available Start: 12-13-2024 End: 12-13-2024 ambulatory Evelyne Polk MD Facility:[facility] Start: 09-09-2024 End: 09-09-2024 ambulatory [facility] Start: 09-08-2024 End: 09-08-2024 ambulatory [facility] Start: 09-08-2024 End: 09-08-2024 Patient encounter procedure Rell ADAMSON [facility] [place] Start: 08-30-2024 End: 08-30-2024 Bamboo flowsheet Car [...] 08-25-2024 ambulatory MD Avi Yepez Work Phone: [facility] Work Phone: Start: 08-25-2024 End: 08-25-2024 Departed Referred MD Avi Yepez Work Phone: [facility] Start: 08-25-2024 End: 08-25-2024 ambulatory Rell ADAMSON Facility:[id number] Start: 08-16-2024 End: 08-16-2024 Bamboo flowsheet [...] Start: 07-28-2024 End: 07-28-2024 Refill Corona Peng WASHROOM OPERATOR Work Phone: [facility] Comment on above: Post-op pain (Primar y Dx) Start: 07-20-2024 End: 07-20-2024 ambulatory Rell ADAMSON Facility:[facility] Start: 07-20-2024 End: 07-20-2024 Patient encounter procedure Rell Marr SNOW [facility] [place] Start: 07-19-2024 End: 07-19-2024 Bamboo flowsheet Maria E Liv PT [facility] Start: 07-19-2024 End: 07-19-2024 Bamboo flowsheet Maria E Alexis PT [facility] Start: 07-19-2024 End: [...] Preprocedural examination done Car LUCIANO Work Phone: [facility] Start: 07-08-2024 End: 07-08-2024 ambulatory CAR CUELLAR Not Available Start: [facility] Start: 06-21-2024 End: 06-21-2024 Office outpatient visit 25 minutes Jr. Elias Thomas DO Work Phone: [facility] Comment on above: Internal derangement of left knee (Primary Dx) Start: 06-21-2024 End: 06-21-2024 ambulatory ELIAS EDEN Not Available Start: 06-11-2024 End: 06-11-2024 ambulatory [facility] Start: 06-09-2024 Non-patient / Non-visit MD Indra Yepez Work Phone: [facility] Work Phone: Start: 05-10-2024 End: 05-10-2024 ambulatory ELIAS EDEN Not Available Start: 2023 End: 2023 ambulatory BILAL CHINA BUTT Facility:[facility] Start: 2023 End: 2023 Office outpatient new 30 minutes Bilal Chinaanjana Ling MD Work Phone: [facility] Comment on above: Meralgia paresthetic a of left side (Primary Dx); Chronic midline low back pain without sciatica Start: 08-01-2023 End: 08-01-2023 ambulatory Darren Elizabeth CONTROL CHEMIST.DANCING INSTRUCTOR Work Phone: [facility] Comment on above: Dr chong Cut me open Start: 07-01-2023 End: 07-01-2023 ambulatory NIKOLAY CAMP Facility:[facility] Start: 06-26-2023 Telephone encounter Nikolay Camp DO Work Phone: [facility] Comment on above: Preparations For Pro cedures (Pre-injection instructions) Start: 06-19-2023 Orders Only Nikolay Montgomery is DO Work Phone: Neurology Comment on above: Lumbar radiculopathy (Primary Dx); Displacement of lumbar intervertebral disc without myelopathy Start: 06-02-2023 End: 06-03-2023 ambulatory DARREN ELIZABETH Facility:[facility] Start: 06-02-2023 End: 06-02-2023 Patient encounter procedure Darren Elizabeth CONTROL CHEMIST.DANCING INSTRUCTOR Work Phone: [facility] Comment on above: Radiculopathy, lumba r region (Primary Dx); Lumbar disc herniation Start: 05-13-2023 Office outpatient vi sit 25 minutes Avi Yepez Work Phone: [facility] 250 DO Work Phone: Start: 05-13-[address] Reilly Nelson II Facility: Start: 05-06-2023 Chart abstracting None (Historical) Neurology Start: 12-16-2022 Rx Renewal Avi Yepez Work Phone: [facility] 250 DO Work Phone: Start: 07-17-2022 End: 07-17-2022 Departed Referred MD Avi Yepez Work Phone: [facility] 250 Start: 05-07-2022 Office outpatient vi sit 25 minutes Avi Yepez Work Phone: [facility] 250 DO Work Phone: Start: 01-03-[address] AVI YEPEZ Facility :[facility] Start: 12-21-2021 Encounter for genera l adult medical examination without abnormal findings DR AVI YEPEZ [facility] Start: 12-20-2021 End: 12-21-[address] AVI YEPEZ Facility:[facility] Start: 12-20-2021 End: 12-21-2021 Encounter for general adult medical examination without abnormal findings DR AVI YEPEZ Facility:[facility] Start: 02-14-2022 Rx Renewal Reilly mcmahon MD Work Phone: [facility] 250 DO Work Phone: Procedures Date Procedure [...] on above: Performed By: #### PSASC #### [facility] [address] [place] [address] Dr. Conor Chan Start: 06-09-2020 Total colonoscopy Reilly Nelson MD Work Phone: Start: 07-02-2019 End: 07-02-2019 Colonoscopy Darren Elizabeth APRN.DANCING INSTRUCTOR Work Phone: Cardiac catheterization Will renetta Nelson MD Work Phone: Cardiac catheterization Jorge aegia NILL Cholecystectomy Reilly miranda MD Work Phone: Cholecystectomy Rell NILL Nasal septoplasty Rell MORALEZ Plan of Treatment Date Care Activity Detail Author Start: 08-25-2034 Screening for malign ant neoplasm of colon [facility] Start: 07-02-2029 Screening for malign ant neoplasm of colon [facility] Start: 12-20-2026 PROSTATE CANCER SCREENING DISCUSSION PROSTATE CANCER SCREENING DISCUSSION [facility] Start: 07-14-2025 End: 07-14-2025 Patient encounter procedure 07/14/2025 9:00 AM EDT Office Visit [facility] [address] [place] [phone] Car Cuellar, PA [address] [place] [address] [facility] Start: 06-17-2025 End: 06-17-2025 Patient encounter procedure 06/17/2025 9:00 AM EDT Office Visit [facility] [address] [facility] [place] [address] Car Cuellar, PA [address] [place] [address] [facility] Start: 04-20-2025 End: 04-20-2025 Patient encounter procedure 04/20/2025 8:30 AM EDT Office Visit [facility] [address] [place] [address] Jr. Elias Thomas DO [address] [place] [address] Arrived [facility] Comment on above: Arrived Start: 08-30-2024 End: 08-30-2024 Patient encounter procedure 08/30/2024 10:15 AM EST Office Visit [facility] [address] [place] [address] Car Cuellar, PA [address] [place] [address] S/P left knee arthroscopy (Primary Dx) [facility] Comment on above: S/P left knee arthro scopy (Primary Dx) Start: 08-25-2024 [facility] Start: 08-16-2024 End: 08-16-2024 Patient encounter procedure 08/16/2024 10:00 AM EDT Office Visit [facility] [address] [place] [phone] Car Cuellar, PA [address] [place] [address] S/P left knee arthroscopy (Primary Dx) [facility] Comment on above: S/P left knee arthro scopy (Primary Dx) Start: 08-12-2024 End: 08-12-2024 Patient encounter procedure 08/12/2024 9:00 AM EDT Office Visit [facility] [address] [place] [phone] Car Cuellar, PA [address] [place] [address] [facility] Start: 07-29-2024 End: 07-29-2024 Patient encounter procedure 07/29/2024 10:45 AM EDT Procedure Visit [facility] Jr. Elias Thomas DO [address] [place] [address] [facility] Start: 07-19-2024 End: 07-19-2024 ambulatory [facility] Comment on above: Internal derangement of left knee Start: 07-08-2024 End: 07-08-2025 CBC W Auto Differential panel - Blood CBC and differential Lab Routine Preop examination Expected: 07/08/2024 (Approximate), Expires: 07/08/2025 [facility] Work Phone: Comment on above: Expected: 07/08/2024 (Approximate), Expires: 07/08/2025 Start: 07-08-2024 End: 07-08-2024 Patient encounter procedure 07/08/2024 10:00 AM EDT Office Visit [facility] [address] [place] [phone] Car Cuellar, PA [address] [place] [address] Preop examination (Primary Dx); Internal derangement of left knee [facility] Comment on above: Preop examination (P rimary Dx); Internal derangement of left knee Start: 06-27-2024 Influenza vaccination Influenza Vacc ine (#1) [facility] Start: 06-27-2023 Influenza vaccination [facility] Start: 05-13-2023 FUV, Provider: Reilly Nelson, Status: Pen, Time: 11:10 AM FUV, Provider: Reilly Nelson, Status: Pen, Time: 11:10 AM [facility] [employer] 250 DO Work Phone: Start: 10-27-2022 DEPRESSION ASSESSMENT DEPRESSION ASS ESSMENT [facility] Start: 05-17-2022 COVID-19 VACCINE (6 - Pfizer series) COVID-19 VACCINE (6 - Pfizer series) [facility] Start: 05-15-2022 FUV, Provider: Reilly Nelson, Status: Pen, Time: 2:00 PM FUV, Provider: Reilly Nelson, Status: Pen, Time: 2:00 PM [facility] [employer] 250 DO Work Phone: Start: 07-02-2020 Colonoscopy COLONOSCOPY [facility] Start: 07-02-2020 COLORECTAL CANCER SCREENING COLORECTAL CANCER SCREENING [facility] Start: 2016 Prostate Cancer Screening Discussion Prostate Cancer Screening Discussion [facility] Start: 2011 SHINGRIX VACCINE (1 of 2) SHINGRIX VACCINE (1 of 2) [facility] Start: 2006 COLOGUARD (FIT-DNA) COLOGUARD (FIT-D NA) [facility] Start: [address] COLONOGRAPHY [facility] Start: 2006 DIABETES SCREEN DIABETES SCREEN [facility] Start: 2006 Diabetes Screening Diabetes Screenin g [facility] Start: 2006 FECAL OCCULT BLOOD FECAL OCCULT BLOO D [facility] Start: 2006 SIGMOIDOSCOPY SIGMOIDOSCOPY [facility] Start: 1996 Lipid 1996 panel - Serum or Plasma Lipid Screening [facility] Start: 1996 LIPID SCREEN LIPID SCREEN [facility] Start: 1980 Urine microalbumin profile [facility] Start: 1979 HEPATITIS C SCREENING HEPATITIS C SC REETRACY [facility] Start: 1979 HIV SCREENING HIV SCREENING [facility] Start: 1961 Screening for malign ant neoplasm of colon [facility] End: 09-02-2024 Radex spine lumbosacral minimum 4 views XR LUMBAR MOTION 4V AP/LAT/ FLEX/EXT Radiology Routine Meralgia paresthetica of left side 1 Occurrences starting 2023 until 09/02/2024 [facility] Work Phone: Comment on above: 1 Occurrences starti ng 2023 until 09/02/2024 SPINE INTERVENTION PROCEDURE SPINE INTERVENTION PROCEDURE Procedures Routine Radiculopathy, lumbar region Lumbar disc herniation Ordered: 06/02/2023 [facility] Work Phone: Comment on above: Ordered: 06/02/2023 [facility] RACHAEL [facility] Immunizations Immunization Date Immunization Notes Care Provider Deepa rehman 09-12-2023 influenza virus vacc ine, unspecified formulation Stepanic DO Work Phone: [facility] 10-14-2022 Pfizer COVID-19 Vac Bivalent 30 MCG/0.3ML Intramuscular Suspension Avi Aguilar Hoy Work Phone: [facility] 10-03-2022 influenza, injectabl e, quadrivalent, preservative free Avi M Hoy Work Phone: [facility] 250 DO Work Phone: 10-03-2022 influenza virus vacc ine, unspecified formulation Darren Elizabeth CONTROL CHEMIST.DANCING INSTRUCTOR Work Phone: [facility] 03-22-2022 Comirnaty 30 MCG/0.3 ML Intramuscular Suspension Avi M Hoy [facility] DO Work Phone: 03-22-2022 Moderna COVID-19 Vac cine 100 MCG/0.5ML Intramuscular Suspension Avi M Hoy Work Phone: [facility] Comment on above: Series: 03-22-2022 SARS-CoV-2 mRNA (jwetpxqvigo-mbfa-ablnsu e) vaccine Rell ADAMSON [facility] 03-22-2022 zoster vaccine recombinant Avi Yepez Work Phone: [facility] [employer] 250 DO Work Phone: 09-03-2021 Pfizer-BioNTech COVI D-19 Vacc 30 MCG/0.3ML Intramuscular Suspension Avi Yepez Work Phone: [facility] 08-25-2021 influenza virus vacc ine, unspecified formulation Rell ADAMSON [facility] 08-25-2021 influenza, injectabl e, quadrivalent, preservative free Avi Yepez Work Phone: [facility] 250 DO Work Phone: 08-25-2021 zoster vaccine recombinant Avi Yepez Work [facility]: [facility] DO Work Phone: 02-13-2021 Pfizer-BioNTech COVI D-19 Vacc 30 MCG/0.3ML Intramuscular Suspension Avi Yepez Work Phone: [facility] 01-20-2021 SARS-CoV-2 (COVID-19 ) mRNA BNT-162b2 vax Rell ADAMSON [facility] 01-13-2021 Pfizer-BioNTech COVI D-19 Vacc 30 MCG/0.3ML Intramuscular Suspension Avi Yepez Work Phone: [facility] 12-23-2020 Pfizer-BioNTech COVI D-19 Vacc 30 MCG/0.3ML Intramuscular Suspension Avi Yepez Work Phone: [facility] 08-28-2020 influenza, injectabl e, quadrivalent, preservative free Avi Aguilar Hoy Work Phone: [facility] 250 DO Work Phone: 08-28-2020 influenza virus vacc ine, unspecified formulation Juan R Ling MD Work Phone: [facility] Payers Date Payer Category Payer Self-pay [id number] 2021 Private Health Insurance [id number] 2007 Managed Care HMO (unspecified) [id number] 1961 Unknown [id number] 1961 Unknown [id number] 1961 Unknown [id number] 1961 Unknown [id number] 1961 Unknown [id number] 1961 Unknown [id number] 1960 Unknown [id number] [id number] 1960 Unknown [id number] 2.16.840.1.769792.3.579.2.125 9 1961 Unknown [id number] 2.16.840.1.127041.3.579.2.125 9 1961 Unknown [id number] 2.16.840.1.014062.3.579.2.125 9 1961 Unknown [id number] 2.16.840.1.540835.3.579.2.125 9 1961 Unknown [id number] 2.16.840.1.732758.3.579.2.125 9 1961 Unknown [id number] 2.16.840.1.543574.3.579.2.125 9 1961 Unknown [id number] 2.16.840.1.602836.3.579.2.125 9 1961 Unknown [id number] 2.16.840.1.341727.3.579.2.125 9 1961 Unknown [id number] 2.16.840.1.474797.3.579.2.125 9 1958 Private Health Insurance [id number] 1958 Self-pay [id number] Unknown Unknown [facility] [id number] Unknown [id number] Social History Date Type Detail Facility Start: 06-02-2023 End: 04-20-2025 Consumes alcohol Consumes alcohol [facility] Comment on above: socially; occasional; Start: 09-28-2020 End: 05-10-2024 Tobacco smoking status UTIS Never smoked tobacco (finding) [facility] Start: 1960 Sex Assigned At Male F [facility] Tobacco smoking stat us UTIS Tobacco smoking consumption unknown [facility] Start: 1960 Sex Assigned At Not on file [facility] Start: 06-02-2023 End: 04-20-2025 Gender identity Not on file [facility] Start: 06-02-2023 End: 05-10-2024 Tobacco use and exposure Smokeless tobacco non-user [facility] National Score (1-10 0), lower number is lower risk 61 [facility] Start: 07-28-2023 Gender identity Identifies as male gender (finding) [facility] Start: 07-28-2023 Sexual orientation Heterosexual (fin ding) [facility] Start: 07-08-2024 End: 04-20-2025 Alcoholic beverage intake Current drinker of alcohol (finding) [facility] Start: 05-10-2024 Alcohol Comment 1/WK [facility] Functional Status Date Assessment Result Facility 09-08-2024 Functional Status N/A [facility] 07-20-2024 Functional Status N/A [facility] [place] Clinical Notes 05-06-2023 to 04-20-2025 Jr. Elias Thomas, DO - 04/20/2025 8:30 AM Chad Cuellar, ANKITA - 02/18/2025 9:00 AM ANKITA [...] or the patient requires discharge to a [facility] facility, the patient may require to have additional inpatient hospital stay days following the surgery. Physical therapy is contraindicated in this patient''s case because of the mdnh-jw-uwsa articulation of the patient's knee.. Questions answered in laymen terms at the bedside. The diagnosis, home exercise plan and any ongoing restrictions/ recommendations reviewed. If unable to be reached in office, I recommend evaluation at nearest Emergency Room if any symptoms worsened or new symptoms develop for requiring urgent evaluation. Visit was preformed using [employer] pilot speech recognition. documented in this encounter [facility] 03-04-2025 Note [place] Cardiology - [facility] Subjective Kim Nichols is a [...] and he had carotid stenosis, sister had VA, mother had brain aneurysm ROS All systems [...] twice a day., Disp: , Rfl: HYDROcodone-acetaminophen (Ohlman) 5-325 mg tablet, Take 1 tablet by [...] and symmetric in (more content not included)... [facility] 02-18-2025 History of Present illness Narrative Associated [...] Current pain management routine includes taking 2 Ohlman before activity, which is not recommended. Discussed [...] requiring urgent evaluation. Visit was preformed using [employer] speech recognition. documented in this encounter [facility] 09-09-2024 Note Cardiology Clinic No te Chief [...] as needed Richard Benitez MD Interventional Cardiology [facility] 08-30-2024 History of Present illness Narrative Images [...] requiring urgent evaluation. documented in this encounter [facility] 08-16-2024 History of Present illness Narrative Images [...] symptoms from before surgery.. Pt going to [place] in December.. pt denies any catching or [...] requiring urgent evaluation. documented in this encounter [facility] 08-16-2024 Instructions ANKITA Stapleton - 08/16/2024 [...] than 10 mins documented in this encounter [facility] 07-28-2024 Telephone encounter Note Post op pain rx. PDMP reviewed [facility] 07-28-2024 Miscellaneous Notes Post op pain rx. PDMP reviewed documented in this encounter [facility] 07-20-2024 Note General Surgery Offi ce/Clinic [...] tab(s), Oral, Ivy (more content not included)... [facility] Comment on above: Result Comment: [...] sign below. Date: documented in this encounter [facility] 07-08-2024 History of Present illness Narrative Images [...] Answer: No Ambulatory referral to Physical Therapy [facility] ; PLEASE CALL PATIENT TO SCHEDULE, THANK [...] SX INSTRUCTIONS GIVEN TODAY 07/08 @10AM - [facility] CARDIAC CLEARANCE ; OBTAINED - CASEY PROTOCOL PT REFERRAL SENT ; CRUTCH TRAIN AND DISPENSE NPAR ([id number], [id number]) Follow up for 08/12 @9AM W/AMANDA IN [place]. documented in this encounter [facility] 06-21-2024 History of Present illness Narrative Images from the original note were not included. HISTORY OF PRESENT ILLNESS: EST PT Kim Nichols is an 63 y.o. @ male. EST PT RECHECK LT KNEE PAIN - POSSIBLY DISCUSS SURGERY- PT WAS GETTING A CARDIAC WORK UP- PT DID SEE DR BENITEZ (DIRECTOR OF PHYSICAL THERAPY) 06/11/24; PT STATES HE IS CLEARED (OFFICE NOT IS UNDER ENCOUNTER) PT STATES HE WAS ADMITTED TO [facility] FOR A-FIB X 1DAY ~05/17/24 XRAY [...] Use: Low Risk (06/11/2024) Received from [facility] Patient History Smoking Tobacco Use: Never Smokeless [...] states that he was cleared per his senior escrow officer ; we will need to obtain clearance [...] Elias Thomas D.O. documented in this encounter [facility] 06-11-2024 Note Cardiology Clinic No te Chief [...] is atypical in nature. Patient had a Nu-B-2Biscan myocardial perfusion imaging which demonstrates a fixed [...] cardiac (more content not included)... [facility] 2023 Note HNO ID: [id number] Author: Juan R Ling MD Service: ? [...] issues. 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 Denies any [...] BICEPS TRICEPS DELTS Wrist Ext Wrist Flex Wrapper Stripper HI R 5 5 5 5 5 [...] degenerative changes Xray (more content not included)... [facility] 2023 Note HNO ID: [id number] Author: Bossman Saunders Service: ? Author Type: [...] opioids Medications: See medication reconciliation list in [facility] MEDICATIONS: Gabapentin, Ohlman, Tylenol Have you ever seen a pain [...] routine daily living activities? No Bossman Escoto [facility] 2023 History of Present illness Narrative [...] issues. 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 Author Type: Nurse Practitioner Type: Progress Notes Filed: 08/01/2023 1:30 PM Note Text: SPINE SURGERY ESTABLISHED VISIT This is a virtual visit using [employer] Video Visit. It required patient-provider interaction for the medical decision making as documented below. DATE OF SERVICE: 08/01/2023 DATE OF LAST VISIT: 06/02/2023 SUBJECTIVE: HPI:Kim Nichols is a 62 year old male presenting via virtual vist s/p Left L5 transforaminal epidural steroid injection on 07/01/[address] Camp. Albin great initially and for the first few days after injection, symptoms returned shortly after. Patient has increased his Gabapentin 300 mg from BID to TID and is feeling good today. 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 Patient notified that [place] will call patient the night before with the time to arrive for injection. Patient verbalized understanding of the following: -Provided education on spine procedure and answered questions related to spine injection procedure. -Technical Project Manager is needed to drive patient home. [...] to report. Diabetic: No Patient given number [phone], spine injections schedulers, if there is any need to reschedule/ change appointment during normal business hours. Active MyChart users were informed to read [employer] procedure instructions prior to appointment. AMBULATORY PATIENT [...] POST INJECTION INSTRUCTIONS documented in this encounter [facility] 06-02-2023 Note HNO ID: [id number] Author: Darren Elizabeth APRN.KIRILL Service: ? Author [...] with him pain. He also is prescribed Ohlman for breakthrough pain which he only takes [...] not included)... [facility] 06-02-2023 History of Present illness Narrative SPINE [...] with him pain. He also is prescribed Ohlman for breakthrough pain which he only takes [...] which included preparing to see the patient, aycy-pv-yrfn patient care, completing clinical documentation, obtaining and/or reviewing separately obtained history, performing a medically appropriate examination, counseling and educating the patient/family/caregiver, independently interpreting results (not separately reported), and communicating results to the patient/family/caregiver. SIGNATURE: Darren Elizabeth APRN.CNP PATIENT NAME: Kim Nichols DATE: June 02, 2023 TIME: 1:57 PM PAGER: documented in this encounter [facility] 05-14-2023 Note HNO ID: [id number] Author: Ember Delatorre PA-C Service: ? Author Type: Physician Assurance Specialist Type: Progress Notes Filed: 05/14/2023 4:17 PM Note Text: Per Triage: Kim Nichols is a 62 year old male that requests evaluation of lumbar spine. Per review, they have symptoms of back and LLE pain. Positive for numbness. CMT: Medication: Gabapentin, Tylenol, Ohlman Studies (Reports unless indicated) MRI Lumbar: L4/5 moderate left foramen narrowing which may contribute to patient's symptoms 2. L5/S1 disc protrusion without significant canal or foramen narrowing. Disposition: Please schedule with surgical SANDY. Consider if injection is appropriate or on effective dose of Neurontin. Also see if symptoms correlate with imaging. [facility] 05-14-2023 History of Present illness Narrative Per Triage: Kim iNchols is a 62 year old male that requests evaluation of lumbar spine. Per review, they have symptoms of back and LLE pain. Positive for numbness. CMT: Medication: Gabapentin, Tylenol, Ohlman Studies (Reports unless indicated) MRI Lumbar: L4/5 moderate left foramen narrowing which may contribute to patient's symptoms 2. L5/S1 disc protrusion without significant canal or foramen narrowing. Disposition: Please schedule with surgical SANDY. Consider if injection is appropriate or on effective dose of Neurontin. Also see if symptoms correlate with imaging. Patient name: Kim Nichols Are you being referred by a [place] for Spine Health Provider or Pain Management Provider at [facility]? No If answer is YES please [...] facility where the MRI/CT/myelogram was completed: [facility] [address] [place] [address] MRI/CT/myelogram viewable in Epic: No If not, please provide [phone] to fax in imaging reports for review. [...] Additional Comments Hydrocodone documented in this encounter [facility] 05-06-2023 Note HNO ID: [id number] Author: Mauricio Kelley Service: ? Author Type: ? Type: Progress Notes Filed: 05/14/2023 4:17 PM Note Text: Patient name: Kim Nichols Are you being referred by a [place] for Spine Health Provider or Pain Management Provider at [facility]? No If answer is YES please [...] facility where the MRI/CT/myelogram was completed: The [address] [address] MRI/CT/myelogram viewable in Epic: No If not, please provide [phone] to fax in imaging reports for review. [...] completed: Additional Comments Hydrocodone [facility] Evaluation + Plan note No data available for this section [facility] [place] Evaluation note No assessment inform ation available [facility] Work Phone: Evaluation note Diagnosis Radiculopathy, lumbar region- Primary Thoracic or lumbosacral neuritis or radiculitis, unspecified Lumbar disc herniation Displacement of lumbar intervertebral disc without myelopathy [facility] Diagnosis Lumbar radiculopathy- Primary Thoracic or lumbosacral neuritis or radiculitis, unspecified Displacement of lumbar intervertebral disc without myelopathy documented in this encounter [facility] note* Diagnosis Meralgia paresthetica of left side- Primary Meralgia paresthetica Chronic midline low back pain without sciatica documented in this encounter [facility] note* Diagnosis Post-op pain- Primary Other [...] favorable impact on blood pressure andcholesterol.-[facility] Work Phone: History of Present [...] to call if they arise or occur. [facility] 250 DO Work Phone: History of [...] to call if they arise or occur. [facility] 250 DO Work Phone: Hospital Discharge instructions No data available for this section [facility] [place] Progress note No data available for this section [facility] [place] Reason for referral (narrative)* Diagnostic Procedure Only (Routine) - Pending Review Specialty Diagnoses / Procedures Referred By Erlinda mao Referred To Contact XR IMAGING Diagnoses Meralgia paresthetica of left side Procedures XR LUMBAR MOTION 4V AP/LAT/ FLEX/EXT RADEX SPINE LUMBOSACRAL MINIMUM 4 VIEWS Juan R Ling MD [address] [place] [address] [place] [id number] Referral ID Status Reason Start Date Expiration Date Visits Requested Visits Authorized [id number] Pending Review Auto-Generat ed Referral 2023 09/02/2024 1 1 [facility] for referral (narrative)* Consultation (Routine) - Pending Review Specialty Diagnoses / Procedures Referred By Erlinda t Referred To Contact Physical Therapy Diagnoses Internal derangement of left knee Procedures NM OFFICE/OUTPATIENT NEW HIGH MDM 60 MINUTES Car Cuellar PA [address] [place] [address] [facility] [address] [place] [address] Referral ID Status Reason Start Date Expiration Date Visits Requested Visits Authorized [id number] Pending Review Consult and Treat 07/01/2024 12/28/2024 [...] DATE CREATED AUTHOR AUTHOR'S ORGANIZ ATION 05/14/2023 [facility] DATE CREATED AUTHOR AUTHOR'S ORGANIZ ATION 05/14/2023 [employer] DATE CREATED AUTHOR AUTHOR'S ORGANIZ ATION 2023 [facility] DATE CREATED AUTHOR AUTHOR'S ORGANIZ ATION 08/05/2023 [facility] DATE CREATED AUTHOR AUTHOR'S ORGANIZ ATION 09/01/2024 [facility] DATE CREATED AUTHOR AUTHOR'S ORGANIZ ATION 09/10/2024 [facility] DATE CREATED AUTHOR AUTHOR'S ORGANIZ ATION 12/17/2024 [facility] DATE CREATED AUTHOR AUTHOR'S ORGANIZ ATION 03/06/2025 [facility] DATE CREATED AUTHOR AUTHOR'S ORGANIZ ATION 04/21/2025 [facility] d[facility] Specialists EPIC Care Teams (unrecognized sec [...] End: August 25, 2024 Rell Adamson MD [facility] Attending Provider Active Start: August 25, 2024 End: August 25, 2024 Team Status: Inactive Member Role Status Dates Avi Yepez MD Primary Care Provider Active Bijan Betts Jr, DO Attending Provider Active Technical Support Analyst Relationship Specialty Start Date End Date Avi Yepez MD [address] [place] [address] Referring Family Medicine 04/24/23 Technical Support Analyst Relationship Specialty Start Date End Date Avi Yepez MD [address] [place] [address] Referring Family Medicine 04/24/23 Technical Support Analyst Relationship Specialty Start Date End Date Avi Yepez MD [address] [place] [address] Referring Family Medicine 04/24/23 Technical Support Analyst Relationship Specialty Start Date End Date Avi Yepez MD [address] [place] [address] PCP - General Family Medicine 06/25/23 Avi Yepez MD [address] [place] [address] Referring Family Medicine 04/24/23 Technical Support Analyst Relationship Specialty Start Date End Date Avi Yepez MD [address] [place] [address] PCP - General Family Medicine 06/25/23 Avi Yepez MD [address] [place] [address] Referring Family Medicine 04/24/23 Technical Support Analyst Relationship Specialty Start Date End Date Avi Yepez MD [address] [place] [address] PCP - General Family Medicine 06/25/23 Avi Yepez MD [address] [place] [address] Referring Family Medicine 04/24/23 Technical Support Analyst Relationship Specialty Start Date End Date Avi Yepez MD [address] [facility] [place] [place] [facility] [place] [address] PCP - General 05/05/24 Technical Support Analyst Relationship Specialty Start Date End Date Avi Yepez MD [address] [facility] [place] [facility] [place] [address] PCP - General 05/05/24 Technical Support Analyst Relationship Specialty Start Date End Date Avi Yepez MD [address] [facility] [place] [facility] [place] [address] PCP - General 05/05/24 Technical Support Analyst Relationship Specialty Start Date End Date Avi Yepez MD [address] [facility] [place] [facility] [place] [address] PCP - General 05/05/24 Technical Support Analyst Relationship Specialty Start Date End Date Avi Yepez MD [address] [facility] [place] [facility] [place] [address] PCP - General 05/05/24 Technical Support Analyst Relationship Specialty Start Date End Date Avi Yepez MD [address] [facility] [place] [facility] [place] [address] PCP - General 05/05/24 Technical Support Analyst Relationship Specialty Start Date End Date Avi Yepez MD [address] [facility] PCP - General 05/05/24 Technical Support Analyst Relationship Specialty Start Date End Date Avi Yepez MD [address] [facility] [place] [facility] [place] [address] PCP - General 05/05/24 Technical Support Analyst Relationship Specialty Start Date End Date Avi Yepez MD [address] [facility] [place] [facility] [place] [address] PCP - General 05/05/24 Technical Support Analyst Relationship Specialty Start Date End Date Avi Yepez MD [address] [facility] [place] [address] PCP - General 05/05/24 Technical Support Analyst Relationship Specialty Start Date End Date Avi Yepez MD PCP - General 05/05/24 Technical Support Analyst Relationship Specialty Start Date End Date [...] or prosecute any alcohol or drug abuse patient.[facility] the event this information is protected by the Federal Confidentiality of Alcohol and Drug Abuse Patient Records regulations: The Federal rules restrict any use of the information to criminally investigate or prosecute any alcohol or drug abuse patient.[facility] the event this information is protected by the Federal Confidentiality of Alcohol and Drug Abuse Patient Records regulations: The Federal rules restrict any use of the information to criminally investigate or prosecute any alcohol or drug abuse patient.[facility] the event this information is protected by the Federal Confidentiality of Alcohol and Drug Abuse Patient Records regulations: The Federal rules restrict any use of the information to criminally investigate or prosecute any alcohol or drug abuse patient.[facility] the event this information is protected by the Federal Confidentiality of Alcohol and Drug Abuse Patient Records regulations: The Federal rules restrict any use of the information to criminally investigate or prosecute any alcohol or drug abuse patient.[facility] the event this information is protected by the Federal Confidentiality of Alcohol and Drug Abuse Patient Records regulations: The Federal rules restrict any use of the information to criminally investigate or prosecute any alcohol or drug abuse patient.[facility] Reason for Visit (unrecogniz ed section and content) Reason Comments New Patient Reason Comments Preparations For Procedures Pre-injectio n instructions Reason Comments Low Back Pain New Patient Evaluation Reason Comments Pain Post-op Reason Comments Pain Reason Comments Pain Specialty Diagnoses / Procedures Referred By Contac t Referred To Contact Physical Therapy Diagnoses Internal derangement of left knee Procedures NM OFFICE/OUTPATIENT NEW HIGH MDM 60 MINUTES Car Cuellar, ANKITA [address] [address] Maria E Peck, PT Referral ID Status Reason Start Date Expiration Date Visits Requested Visits Authorized [id number] Authorized Consult and Treat 07/01/2024 12/28/2024 60 [...] BE BASED ON THE PRIMARY CLINICAL RECORDS. [facility]. provides no warranty or guarantee of the accuracy or completeness of information in this document.
[2025-06-13 07:51] VITALS: BP 124/84; PULSE 72; TEMP 36.3; O2SAT 96
[2025-06-13 08:31] VITALS: BP 147/88; PULSE 70; O2SAT 98
[2025-06-13 08:32] VITALS: BP 145/84; PULSE 60; O2SAT 95
[2025-06-13] MEDS: BUPIVACAINE HCL 0.25% PF 25 MG/10 ML VIAL 8 ML INJ (08:33)
[2025-06-13] MEDS: LIDOCAINE HCL 2% 400 MG/20 ML MDV INJ (08:33)
--- NOTE | 2025-06-13 08:36 | W.PM.PROCNOT ---
Date of procedure: 06/13/25 Pre-op diagnosis: Pain due to lumbar spondylosis without myelopathy Post-op diagnosis: same as pre-op Procedure: Procedure: Bilateral L2-3, L3-4 medial branch block Medications: Bupivacaine 0.25% 6cc The patient was seen and examined in the preoperative holding area.? An informed consent was obtained and placed on the chart.? The patient was brought to the medical procedure unit and placed in the prone position.? A timeout was completed verifying correct patient, procedure site, positioning, plan, and special equipment.? Using aseptic technique, the needle was placed at left L2. Under direct fluoroscopic visualization a Quincke-tipped spinal needle was advanced to the junction of the superior articulating process with the transverse process at the designated medial branch segment.? Preceded by negative aspiration, the above-mentioned injectate was placed in 1 mL aliquots.? The procedure was repeated at left L3, 4.? The needle was removed and insertion site was covered. The same procedure, at the same levels, was completed on the right side. The patient was taken to the postprocedural recovery area and monitored for an appropriate length of time before found suitable for discharge in the company of a responsible adult. Anesthesia: Local Surgeon: Evelyne Polk Pathology: none sent Condition: stable Disposition: no change
== END 2025-06-13 08:41 | disposition home or self-care (01) ==
PROVIDERS: PCP Family Medicine; Visit Provider Anesthesiology
DX: M47.816 Spondylosis without myelopathy or radiculopathy, lumbar region (principal); M54.50 Low back pain, unspecified
CPT/HCPCS: 64493; 64494; J0665

== ENCOUNTER 2025-06-15 09:49 | Outpatient (OUT) | payer OTHER, SELFPAY ==
--- NOTE | 2025-06-15 09:52 | PM.CN ---
Consult Note: HPI Data of Consult Patient: known to practice within the last 3 years Requesting Physician: Anamaria Waller NP Primary Care Provider: Jason Cervantes MD Consult Narrative Reason for consult: low back pain Narrative: Harrison Nichols a 64 year old male presents for evaluation of chronic low back pain secondary to lumbar ddd, lumbar spondylosis based on prior MRI. pt was evaluated by [facility] and deemed nonsurgical. cannot tolerate formal PT due to increased pain, has attempted HEP > 6 weeks with minimal relief. pain today 4-5/10 constant aching increasing to 6/10 with standing, walking, sleeping, transitioning. pain improved mildly with reclining in his chair and heat. utilizing tylenol with no improvement, cannot take NSAIDs on eliquis. prn use of norco through pcp as well as gabapentin without side effects. recently underwent bilateral L2-3 L3-4 facet medial branch block #1 with no improvement. cc:: CC: Anamaria Waller NP [facility] Medical History Migraine ?G43.909 - Migraine, unspecified, not intractable, without status migrainosus (ICD-10) Colon polyp ?K63.5 - Polyp of colon (ICD-10) Sleep apnea ?G47.30 - Sleep apnea, unspecified (ICD-10) Atrial fibrillation ?I48.91 - Unspecified atrial fibrillation (ICD-10) Erectile dysfunction ?N52.9 - Male erectile dysfunction, unspecified (ICD-10) Hypokalemia ?E87.6 - Hypokalemia (ICD-10) New onset a-fib ?I48.91 - Unspecified atrial fibrillation (ICD-10) H/O multiple concussions ?Z87.820 - Personal history of traumatic brain injury (ICD-10) Arthritis ?M19.90 - Unspecified osteoarthritis, unspecified site (ICD-10) Bulging lumbar disc ?M51.36 - Other intervertebral disc degeneration, lumbar region (ICD-10) Chronic GERD ?K21.9 - Gastro-esophageal reflux disease without esophagitis (ICD-10) Hyperlipidemia ?E78.5 - Hyperlipidemia, unspecified (ICD-10) Hypertension ?I10 - Essential (primary) hypertension (ICD-10) Surgical History History of arthroscopy of knee (07/2024) ?Z98.890 - Other specified postprocedural states (ICD-10) H/O nasal septoplasty ?Z98.890 - Other specified postprocedural states (ICD-10) H/O left heart catheterization by ventricular puncture ?Z98.890 - Other specified postprocedural states (ICD-10) Hx of cholecystectomy ?Z90.49 - Acquired absence of other specified parts of digestive tract (ICD-10) Family History Sister Family history of myocardial infarction Family history of diabetes mellitus Father Family history of cancer Family history of myocardial infarction Family history of hypertension Family history of diabetes mellitus Mother Brain aneurysm Grandmother Family history of stroke Social History Within the past year, how often did you have a drink containing alcohol: monthly or less Within the past year, how many standard drinks containing alcohol did you have on a typical day: 1 or 2 Within the past year, how often did you have six or more drinks on one occasion: never Total score: 0 Score interpretation: A score less than 4 is consistent with normal alcohol consumption. Smoking status: Never smoker Non-prescribed substance use: cannabis (any form) Previous occupational history: Retired Highest level of school completed/degree received: Bachelor's degree Are you now , , , , never or living with a partner: In a typical week, how many times do you talk on the telephone with family, friends, or neighbors: twice per week How often do you get together with friends or relatives: twice per week How often do you attend amish or confucianist services: 4 or more times per year Do you belong to any clubs or organizations such as amish groups unions, fraternal or athletic groups, or school groups: no Total score: 3 Score interpretation: A score of greater than or equal to 2 indicates the lowest level of social isolation. Little interest or pleasure in doing things: not at all Feeling down, depressed, or hopeless: several days Feel stressed/tense/nervous/anxious/difficulty sleeping: not at all Do you think of yourself as: straight/heterosexual Gender Identity: male Meds Home Medications and Allergies Home Medications ?Medication ?Instructions ?Recorded ?Confirmed ?Type aspirin 81 mg capsule 81 mg PO DAILY 05/07/24 06/13/25 History chlorthalidone 25 mg tablet 25 mg PO QAM 05/07/24 06/13/25 History gabapentin 300 mg capsule 300 mg PO BID 05/07/24 06/13/25 History rosuvastatin 20 mg tablet 20 mg PO .QHS 05/07/24 06/13/25 History apixaban 5 mg tablet (Eliquis) 5 mg PO BID #60 tabs 05/08/24 06/13/25 Rx metoprolol tartrate 25 mg tablet 25 mg PO BID #60 tabs 05/08/24 06/13/25 Rx potassium chloride 20 mEq 20 meq PO BID #60 tabs 05/08/24 06/13/25 Rx tablet,extended release hydrocodone 5 mg-acetaminophen 325 1 tab PO Q6H PRN pain 08/17/24 06/13/25 History mg tablet pantoprazole 40 mg tablet,delayed 40 mg PO DAILY 12/13/24 06/13/25 History release Allergies Allergy/AdvReac Type Severity Reaction Status Date / Time amoxicillin Allergy Intermediate Rash Verified 06/13/25 07:52 thiopental (From Pentothal) Allergy delayed Verified 06/13/25 07:52 emergence Exam Constitutional Documenting provider has reviewed patient's vital signs: yes Common normals: no apparent distress, oriented x3, healthy appearing, alert and well nourished General appearance: cooperative HENCT Common normals: normocephalic, hearing grossly normal bilaterally and moist oral mucous membranes Head and scalp: normocephalic Eye Common normals: PERRL Pupil: PERRL Neck & C-Spine Common normals: full ROM General: normal visual inspection Chest Common normals: inspection of chest normal Respiratory Common normals: normal respiratory effort, no retractions and no use of accessory muscles Back & Pelvis Lumbar spine/lower back: ROM limited, pain with ROM, lumbar spinal tenderness Lumbar spinal tenderness location: L2, L3, L4 and L5 and straight leg raise negative bilaterally Other: strength 5/5 in BLE sensation intact BLE myofascial spasm noted below Back image (male):  1. right paraspinous muscle spasm Neuro Common normals: oriented x3 Sensorium/orientation: alert Psych Common normals: mental status grossly normal, thought process normal, cooperative, affect normal, speech normal and activity/motor behavior normal Speech: normal speech Thought process: normal thought process Results Additional Findings Additional findings: If on a controlled substance or opioids, I have checked an [place] report on this patient and there are no aberrancies noted in the prescribing history.??If on a controlled substance or opioid a drug screen was completed and reviewed within the last year, and if there has not been a drug screen completed we ordered one today to monitor higher risk, state monitored pain medication use. As part of providing excellent, safe, comprehensive care, the following was completed at our patient's visit: 1. A medication reconciliation and review to ensure accurate knowledge of current/active medications, including asking our patients to inform us about any [id number] medications or herbal remedies/nutritional supplements/alternative remedies. 2. A review to specifically ensure our patients have had annual screening for screening for depression, screening for tobacco use, and screening for unhealthy alcohol use. For concerning screenings had a discussion with the patient, provided patient education, and recommended follow-up with primary care provider when appropriate. If patient noted with a risk of falling, they received education on strength, gait, and balance training to prevent future risk of falling. Portions of this note may have been carried over from the previous visit and updated as appropriate. Please note this office utilizes paper charting in addition to the electronic medical record. A list of current medications, vitals, and PMH is available there as the clinical staff outside of myself do not have access to [facility] charting during the clinic day operations. As part of providing quality comprehensive care the current medications, vitals, and PMH were reviewed in the paper chart. Assessment and Plan Assessment and Plan (1) Lumbar spondylosis: Assessment and Plan: The patient has had over 3 months of moderate to severe low back pain with functional impairment and inadequate response to conservative care including NSAIDS (unless there are contraindication such as concurrent blood thinners), multiple oral or topical pain medications, and home exercise program/physical therapy.? Patient has completed >6 weeks of guided home exercise program and/or formal physical therapy program without relief of their symptoms.? I have reviewed the imaging of the lumbar spine and no red flags were identified.? The imaging reveals radiographic findings consistent with lumbar facet arthropathy, lumbar spondylosis, lumbar bulging disc The Oswestry Disability Index was completed, and the patient scored a 31%.? The patient noted the following:?? moderate pain with standing, lifting, ADLs, travel We discussed the risks and benefits of the procedure with the patient, and we are NOT planning on using sedation as outlined in the guidelines from Medicare unless there is a documented reason that sedation would be strongly recommended.??The procedure will be completed with fluoroscopic guidance.? 06/15/25 bilateral L2-3 L3-4 facet medial branch block preop pain 1/10 post op pain 0/10 for 15 minutes (2) Myofascial pain: Plan bilateral L4-5 L5-S1 facet medial branch block x2 in consideration of RFA for facet mediated pain continue medication management through PCP f/u after each injection, consider updating lumbar MRI and trigger point injections if fails MBB
== END 2025-06-15 09:50 | disposition home or self-care (01) ==
LOC: PM 09:51
PROVIDERS: PCP Family Medicine; Visit Provider Nurse Practitioner
DX: M47.816 Spondylosis without myelopathy or radiculopathy, lumbar region (principal); M79.18 Myalgia, other site
CPT/HCPCS: G0463

== ENCOUNTER 2025-07-04 11:07 | Day surgery (SDC) | payer OTHER, SELFPAY ==
--- OUTSIDE RECORDS SUMMARY | 2025-07-04 11:14 | XMS_ITS | CCD ---
Author Organization [facility] Care Team Providers Care Cell Builder Name Role Phone Unavailable Unavailable DR AVI [...] Unavailable Avi Yepez MD Primary Care Provider [phone] Avi Yepez MD Primary Care Provider [phone] CAR CUELLAR Attending Lacie THOMAS JR., ELIAS Saucedo Attending Wes THOMAS JR., ELIAS Saucedo Attending UnavailCAR Soto Attending Unavailable MARIA E PECK Attending Unavailable CAR CUELLAR Referring Unavailable CAR CUELLAR Attending Unavailable CAR CUELLAR Attending Unavailable Jam LANDA, Evelyne Bradley Attending Unavailable Jam LANDA, Evelyne Bradley Attending Unavailable Allergies Allergy Classification Reported Allergen(s) Allergy Type Date of Onset Reaction(s) Facility (20 sources) Amoxicillin; Translations: [amoxicillin] Drug Allergy 0 Judith Beck [facility] (1 source) Amoxicillin Drug Allergy [facility] (1 source) traMADol Drug Allergy [facility] (3 sources) Penicillin; Translations: [penicillin] Drug Allergy Weal (disorder) [facility] [place] (20 sources) traMADol; Translations: [TRAMADOL] Drug Allergy 4 Unknown [facility] (1 source) Amoxicillin Drug Allergy 0 [facility] Medications Current Medications Medication Drug Class(es) Dates Sig (Normalized) Sig (Original) acetaminophen 325 mg / HYDROcodone bitartrate 5 mg oral tablet (14 sources) Opioid Agonist Start: 07-08-2024 take 1 tablet by mouth twice daily as needed for pain Chico 325 mg-5 mg oral tablet 1 tab(s), Oral, BID as needed for pain, Refill(s) 0 Start Date: 07/08/24 Status: Ordered Start: 03-29-2024 End: 06-21-2024 take 1 tablet by mouth every twelve hours HYDROcodone-acetaminophen (Chico) 5-325 MG tablet Take 1 tablet by mouth every 12 (twelve) hours 03/29/2024 06/21/2024 Discontinued (Therapy completed) Start: 09-26-2020 End: 07-31-2024 take 1 tablet by mouth every six hours for pain HYDROcodone-acetaminophen (Chico) 5-325 MG tablet Indications: Post-op pain Take 1 tablet by mouth every 6 (six) hours if needed for severe pain for up to 3 days 12 tablet 07/28/2024 07/31/2024 Active Chico 5-325 MG T ABS TAKE 1 TABLET [...] [Coronary atherosclerosis of unspecified type of vessel, creek or graft] Onset: 03-04-2025 07-08-2024 Chronic Diabetes [...] 07-08-2024 Chronic Joint disorders and dislocations; trauma-related (19 sources) Derangement of left knee; Translations: [Unspecified [...] Episodic/Chronic Immunizations and screening for infectious disease (19 sources) Patient encounter status; Translations: [Other specified vaccination] Onset: 07-19-2024 07-19-2024 Episodic Unclassified (5 sources) Never smoked tobacco; Translations: [Never a smoker] Unclassified (1 source) Obesity, class 3; Translations: [Obesity, class 3] Onset: 03-04-2025 Results Test Name Value Interpretation Reference Range Facility Office Visiton 03-04-2025 Follow-up visit [id number] Kim Nichols 1960 M Date Provider Department Center 03/04/2025 [id number] MOHAMUD CARD [facility] Family History Problem Relation Age of Onset Brain Aneurysm Mother Stroke Father Heart attack Sister Family Status - Relation Status Age at Mother Father Sister Level of Service:18033 [place] OFFICE/OUTPATIENT ESTABLISHED LOW MDM 20 MIN Reason for Visit and Comments: Coronary Artery Disease [187] - Denies SOB. Atrial Fibrillation [80] - On Eliquis, denies bleeding. Denies palpitations and syncope. Hyperlipidemia [182] - Had lipid panel in May 2024. On rosuvastatin. Hypertension [263853] Chest Pain [309301] - Intermittent, blames his hiatal hernia and back pain. Normal [facility] No Panel Informationon 02-18 ANKITA Stapleton [...] and draped in the usual sterile fashion. [facility] Office Visiton 09-09-2024 Follow-up visit [id number] Kim Nichols 1960 M Date Provider Department Center 09/09/2024 3848-RICHARD BENITEZ RAVIN [facility] Family History Problem Relation Age of Onset Brain Aneurysm Mother Stroke Father Heart attack Sister Family Status - Relation Status Age at Mother Father Sister Level of Service:22507 [place] OFFICE/OUTPATIENT ESTABLISHED LOW MDM 20 MIN Normal [facility] Ambulatory Visit Summaryon 1 11-08-2023 Ambulatory Visit Summary Ambulatory Visit Summary KIM NICHOLS :1960 Visit Date:09/08/2024 Ambulatory Visit Instructions Your Care Team Attending Physician - SNOW LANDA, Rell Marr Primary Care Physician - Avi Yepez MD This Is Your Medications List acetaminophen-hydrocodone (Chico 325 mg-5 mg oral tablet) apixaban (Eliquis [...] What How Much When Instructions Unchanged acetaminophen-hydrocodone (Chico 325 mg-5 mg oral tablet) 1 Tablets [...] choosing us for your care. Fátima Caban [facility] General Surgery Office/Clini c Noteon 09-08-2024 General [...] Tab, 25 mg= 1 tab(s), Oral, BID Chico 325 mg-5 mg oral tablet, 1 tab(s), [...] virus vaccine, inactivated 09/12/2023 Recorded SARS-CoV-2 (COVID-19) [id number] 10/14/2022 Recorded influenza virus vaccine, inactivated 10/03/2022 Recorded SARSCoV2 mRNA(xyyjtejic-yler-xqbyxo) vac 03/22/2022 Recorded SARS-CoV-2 (COVID-19) mRNA BNT-162b2 vax 09/03/2021 Recorded influenza virus vaccine, inactivated 08/25/2021 Recorded SARS-CoV-2 (COVID-19) mRNA BNT-162b2 vax 02/13/2021 Recorded SARS-CoV-2 (COVID-19) mRNA BNT-162b2 vax 01/20/2021 Recorded SARS-CoV-2 (COVID-19) mRNA BNT-162b2 vax 01/13/2021 Recorded SARS-CoV-2 (COVID-19) mRNA BNT-162b2 vax 12/23/2020 Recorded influenza virus vaccine, inactivated 08/28/2020 Recorded Normal [facility] Comment on above: Result Comment: Elec tronically Signed By: SNOW LANDA, Rell Mccormick\Date and Time Signed: 09/08/24 16:32 EST Reminderson 08-26-2024 Reminders Reminders From: María Ayala LPN To: CHANDRAN - Clinical; Sent: 08/26/2024 11:53:39 EDT Show up: 07/26/2034 07:00:00 EDT Subject: colonoscopy recall Due Date/Time: 08/25/2034 07:00:00 EDT Reminder/Recall Patient due for screening colonoscopy 08/25/2034. Normal [facility] Pathology Request for Lab Co rpon 08-25-2024 Pathology Request for Lab Le Normal [facility] Comment on above: Order Comment: PATHO LOGY GI SPECIMEN Result Comment: See report. Scanned copy available in EMR. PERFORMED BY: [place] [id number] PATHOLOGIST FRAUD PREVENTION ANALYST MICHAEL LEMUS M.D. Performed By: #### P ATH TO [facility] #### [place] [id number] [facility] Ambulatory Visit Summaryon 0 07-20-2024 Ambulatory Visit [...] prescribing physician if questions or concerns acetaminophen-hydrocodone (Chico 325 mg-5 mg oral tablet) apixaban (Eliquis [...] What How Much When Instructions Unchanged acetaminophen-hydrocodone (Chico 325 mg-5 mg oral tablet) 1 Tablets [...] for choosing us for your care. Normal [facility] ALL CBC WITH AUTO DIFFon BASOPHILS ABSOLUTE AUTO 0.0 [facility] Healthcare Basophils/100 WBC (Bld) 0.5 % 0.2 - 2.0 % [facility] Eosinophils/100 WBC (Bld) 3.0 % 0.9 - 7.0 % [facility] Erythrocyte distribution width (RBC) [Ratio] 13.9 % 11.0 - 15.0 % [facility] Hematocrit (Bld) [Volume fraction] 46.2 % 42.0 - 54.0 % [facility] Hemoglobin (Bld) [Mass/Vol] 15.6 g/dL 14.0 - 18.0 g/dL [facility] IMMATURE GRANULOCYTES ABS AUTO 0.03 [facility] Immature granulocytes/100 WBC (Bld) 0.5 % 0.0 - 0.5 % [facility] LYMPHOCYTES ABSOLUTE AUTO 1.4 [facility] Lymphocytes/100 WBC (Bld) 22.3 % 20.5 - 60.0 % [facility] MCH (RBC) [Entitic mass] 28.9 pg 25.9 - 34.0 pg [facility] MCHC (RBC) [Mass/Vol] 33.8 g/dL 29.9 - 35.2 g/dL [facility] MCV (RBC) [Entitic vol] 85.7 fL 80.0 - 94.0 fL [facility] MONOCYTES ABSOLUTE AUTO 0.7 [facility] Monocytes/100 WBC (Bld) 11.6 % 1.7 - 12.0 % [facility] NEUTROPHILS ABSOLUTE AUTO 4.0 [facility] Neutrophils/100 WBC (Bld) 62.1 % 43.0 - 75.0 % [facility] Platelet mean volume (Bld) [Entitic vol] 10.5 fL 9.5 - 13.5 fL [facility] TBH EO # 0.2 [facility] PLT 246 [facility] RBC 5.39 [facility] TB WBC 6.4 [facility] Healthcare Office Visiton 06-11-2024 Follow-up visit [id number] Kim Nichols 1960 M Date Provider Department Center 06/11/2024 3848-RICHARD BENITEZ [facility]ARD [facility] Family History Problem Relation Age of Onset Brain Aneurysm Mother Stroke Father Heart attack Sister Family Status - Relation Status Age at Mother Father Sister Level of Service:36863 [place] OFFICE/OUTPATIENT NEW MODERATE MDM 45 MINUTES Reason for Visit and Comments: New Patient [Other] - CHEST PAIN/AFIB Normal [facility] CNOVon 2023 CNOV Office Visit (SPSLUH ) KIM NICHOLS ([id number]) 1960 M Date Time Provider Department 08/04/23 8:00 AM JUAN R LING SPSLU During your visit today, we recorded the [...] opioids Medications: See medication reconciliation list in [facility] MEDICATIONS: Gabapentin, Chico, Tylenol Have you ever seen a pain [...] This is an in-person visit. PCP: Avi Ypeez MD REFERRING PROVIDER: Clara PACHECO SUBJECTIVE HISTORY [...] issues. 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 [facility] 07-08-2023 [facility] Telephone (SPNMMN) ESPERANZAKIM SEGURA ([id number]) 1960 M Date Time Provider Department 07/08/23 ZOË NKIOLAY G SPNMMN During your visit today, we recorded the following information about you: Stacy Gallagher RN 07/08/2023 12:56 PM Signed Post Spine Injection phone call: [phone] on 07/08/23 Patient denies fever, chills, new [...] appointment 2-4 weeks post procedure by calling [phone] Patient does not have any questions or [...] Status:Closed by STACY GALLAGHER on 07/08/[address] [facility] HISTORY PHYSICALon HISTORY PHYSICAL HNO ID: [id number] Author: Sherice Galvin APRN.CNP Service: ? Author Type: Nurse Practitioner [...] July 01, 2023 TIME: 9:04 AM Normal [facility] OPERATIVE NOon 07-01-2023 OPERATIVE NO HNO ID: [id number] Author: Nikolay Camp DO Service: Physical Medicine AND Rehabilitation Author Type: Physician Type: Operative Report Filed: 07/01/2023 9:40 AM Note Text: PROCEDURE REPORT Surgery/Procedure Date: July 01, 2023 Interventionalist: Nikolay Camp DO Procedure(s): Left L5 transforaminal epidural steroid injection Pre-Op/Pre-Procedure Diagnosis: Lumbar radiculopathy Post-Op Diagnosis: same SUBJECTIVE: Kim Nichols is a 62 year old male, who presents to the [facility] for a left L5 transforaminal epidural steroid injection. This is his first (1) procedure. 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 Pain is [...] if any side effects are noted. Kim Lanieamaya was transferred to the recovery room and is to be discharged home in stable condition. DO Fátima Castrejon [facility] Nina 06-26-2023 [facility] Telephone (SPNMMN) JESSIKIM ([id number]) 1960 M Date Time Provider Department 06/26/23 NIKOLAY CAMP SPNMMN During your visit today, we recorded the following information about you: Oscar RollinsHERNANDO 06/26/2023 9:20 AM Signed Phoned patient and message left for Kim to confirm appointment for Kim Nichols for spine procedure on 07/01/2023. Patient notified that Glenn will call patient the night before with the time to arrive for injection. Patient verbalized understanding of the following: -Provided education on spine procedure and answered questions related to spine injection procedure. -Brush Holder Assembler is needed to drive patient home. -NPO [...] to report. Diabetic: No Patient given number [phone], spine injections schedulers, if there is any [...] by OSCAR ROLLINS on 06/26/23 [facility] CNOVon 06-02-2023 CNOV Office Visit (SPNSMN ) KIM NICHOLS ([id number]) 1960 M Date Time Provider Department 06/02/23 1:40 PM DARREN ELIZABETH SPNSMN During your visit today, we recorded the following information about you: Pulse Respiration Blood pressure Weight 63/minute 18/minute 128/84 117 kg Height 1.829 m Darren Elizabeth APRN.PHARMACY DELIVERY DRIVER 06/03/2023 1:01 PM Signed SPINE SURGERY OUTPATIENT [...] with him pain. He also is prescribed Chico for breakthrough pain which he only takes [...] well de (more content not included)... Normal [facility] Office Visit (Cardiology)on 05-13-2023 Follow-up visit Diagnoses/Problems Assessed Coronary disease (414.00) (I25.10) Essential hypertension, benign (401.1) (I10) Hyperlipidemia (272.4) (E78.5) Class 2 obesity with body mass index (BMI) of 36.0 to 36.9 in adult (278.00,V85.36) (E66.9,Z68.36) Never a smoker Orders Class 2 obesity with body mass index (BMI) of 36.0 to 36.9 in adult Healthy Weight Tips; Status:Complete - Retrospective Authorization; Done: [id number] Some eating tips that can help you lose weight.; Status:Complete - Retrospective Authorization; Done: [id number] Coronary disease, Hyperlipidemia Renew: Aspirin EC Low Dose 81 MG Oral Tablet Delayed Release; TAKE 1 TABLET DAILY DIRECTED Hyperlipidemia Renew: Rosuvastatin Calcium 20 MG Oral Tablet; take 1 tablet by mouth at bedtime SocHx: Never a smoker Tobacco Use Screening; Status:Complete; Done: [id number] Patient Instructions Please bring all medicines, vitamins, [...] MG Oral CapsuleTAKE 1 CAPSULE TWICE DAILY. Chico 5-325 MG TABSTAKE 1 TABLET EVERY 4 [...] negative for complaint. Vitals Vital Signs Recorded: [id number] 11:22AM Heart Rate64, R Radial Ucxbacsh472, RUE, Sitting Ftxvpmcxe37, RUE, Sitting Height6 ft Mntokv021 lb BMI Qqdbspojvq24.21 kg/m2 BSA Calculated2.41 Tobacco Useb) No PHQ-2 [...] no hep (more content not included)... Normal Respi Tobacco Screening.on 023 Adult depression screening assessment No -[facility] [address] DO Work Phone: Tobacco use status CP b) No -[facility] [address] DO Work Phone: Tobacco Screening.on 022 Adult depression screening assessment No [facility] [address] DO Work Phone: Fall risk assessment c) Not medically indicated [facility] Work Phone: Tobacco use status CPHS b) No -[facility] [address] DO Work Phone: H PYLORI ANTIBODY IGGon 11-28 H. PYLORI IGG ABS 0.45 Index Value Normal 0.00-0.79 T [facility] Comment on above: Result Comment: Nega tive <0.80 Equivocal 0.80 - 0.89 Positive >0.89 Performed By: #### L IPID, TSH, T7, URIC, CMP #### [facility] [address] [place] [address] [address] Conor Chan INSULINon 12-21-2021 Insulin 55.2 uIU/mL Critically high 2.6-24.9 [facility] Comment on above: Performed By: #### I NSULIN #### [facility] [address] [place] [address] Dr. Conor Chan TESTOSTERONE, TOTALon 2021 Testosterone [Mass/Vol] 380 ng/dL Normal 264-916 [facility] Comment on above: Result Comment: Adul t male reference interval is based on a population of healthy nonobese males (BMI <30) between 19 and 39 years old. Travon, et.al. JCEM 2017,102;3639-5975. PMID: [id number]. Performed By: #### L IPID, TSH, T7, URIC, CMP #### [facility] [address] [place] [address] Dr. Conor Chan CBC AUTO DIFFon 12-20-2021 BASO # 0.0 103/ul Normal 0.0-0.1 [facility] Comment on above: Performed By: #### C BC #### [facility] [address] [place] [address] Dr. Conor Chan Basophils/100 WBC (Bld) 0.5 % Normal 0.2-2.0 [facility] Comment on above: Performed By: #### C BC #### [facility] [address] [place] [address] Dr. Conor Chan EO # 0.2 103/ul Normal 0.0-0.7 [facility] Comment on above: Performed By: #### C BC #### [facility] [address] [place] [address] Dr. Conor Chan Eosinophils/100 WBC (Bld) 3.5 % Normal 0.9-7.0 [facility] Comment on above: Performed By: #### C BC #### [facility] [address] [place] [address] Dr. Conor Chan Erythrocyte distribution width (RBC) [Ratio] 13.8 % Normal 11.0-15.0 [facility] Comment on above: Performed By: #### C BC #### [facility] [address] [place] [address] Dr. Conor Chan Hematocrit (Bld) [Volume fraction] 48.5 % Normal 42.0-54.0 [facility] Comment on above: Performed By: #### C BC #### [facility] [address] [place] [address] Dr. Conor Chan Hemoglobin (Bld) [Mass/Vol] 16.3 g/dL Normal 14.0-18.0 [facility] Comment on above: Performed By: #### C BC #### [facility] [address] [place] [address] Dr. Conor Chan IG # 0.02 10e3/ul Normal 0.00-0.03 [facility] Comment on above: Performed By: #### C BC #### [facility] [address] [place] [address] Dr. Conor Chan IG % 0.3 % Normal 0.0-0.5 [facility] Comment on above: Performed By: #### C BC #### [facility] [address] [place] [address] Dr. Conor Chan LYMPH # 1.4 103/ul Normal 1.2-3.8 [facility] Comment on above: Performed By: #### C BC #### [facility] [address] [place] [address] Dr. Conor Chan Lymphocytes/100 WBC (Bld) 21.7 % Normal 20.5-60.0 [facility] Comment on above: Performed By: #### C BC #### [facility] [address] [place] [address] Dr. Conor Chan MANUAL DIFF REQ NO Normal [facility] Comment on above: Performed By: #### C BC #### [facility] [address] [place] [address] Dr. Conor Chan MCH (RBC) [Entitic mass] 28.5 pg Normal 25.9-34.0 [facility] Comment on above: Performed By: #### C BC #### [facility] [address] [place] [address] Dr. Conor Chan MCHC (RBC) [Mass/Vol] 33.6 g/dL Normal 29.9-35.2 [facility] Comment on above: Performed By: #### C BC #### [facility] [address] [place] [address] Dr. Conor Chan MCV (RBC) [Entitic vol] 84.9 fL Normal 80.0-94.0 [facility] Comment on above: Performed By: #### C BC #### [facility] [address] [place] [address] Dr. Conor Chan MONO # 0.6 103/ul Normal 0.3-0.8 [facility] Comment on above: Performed By: #### C BC #### [facility] [address] [place] [address] Dr. Conor Chan Monocytes/100 WBC (Bld) 9.3 % Normal 1.7-12.0 [facility] Comment on above: Performed By: #### C BC #### [facility] [address] [place] [address] Dr. Conor Chan NEUT # 4.1 103/ul Normal 1.4-6.5 [facility] Comment on above: Performed By: #### C BC #### [facility] [address] [place] [address] Dr. Conor Chan Neutrophils/100 WBC (Bld) 64.7 % Normal 43.0-75.0 [facility] Comment on above: Performed By: #### C BC #### [facility] [address] [address] [address] Conor Chan Platelet mean volume (Bld) [Entitic vol] 9.8 fL Normal 9.5-13.5 [facility] Comment on above: Performed By: #### C BC #### [facility] [address] [place] [address] Dr. Conor Chan PLT 235 103/ul Normal 150-450 [facility] Comment on above: Performed By: #### C BC #### [facility] [address] [address] [address] Conor Chan RBC 5.71 106/ul Normal 4.70-6.10 [facility] Comment on above: Performed By: #### C BC #### [facility] [address] [place] [address] Dr. Conor Chan WBC 6.4 103/ul Normal 4.0-11.0 [facility] Comment on above: Performed By: #### C BC #### [facility] [address] [place] [address] Dr. Conor Chan FREE THYROXINE INDEX T7on FTI 2.89 Normal [facility] Comment on above: Performed By: #### L IPID, TSH, T7, URIC, CMP #### [facility] [address] [place] [address] Dr. Conor Chan T3U 34.0 % Normal 23.5-40.5 [facility] Comment on above: Performed By: #### L IPID, TSH, T7, URIC, CMP #### [facility] [address] [place] [address] Dr. Conor Chan T4 [Mass/Vol] 8.50 ug/dL Normal 5.53-11.00 [facility] Comment on above: Performed By: #### L IPID, TSH, T7, URIC, CMP #### [facility] [address] [place] [address] Dr. Conor Chan GLYCOHEMOGLOBIN A1Con 2021 ADA RECOMMENDATION ADA THERAPEUTIC TARG ET 6.0 - 7.0 ACTION SUGGESTED > 7.0 Normal [facility] Comment on above: Performed By: #### A 1C #### [facility] [address] [address] [address] Conor Chan Glucose [Mass/Vol] 126 mg/dL Normal [facility] Comment on above: Performed By: #### A 1C #### [facility] [address] [address] [address] Conor Chan HbA1c (Bld) [Mass fraction] 6.0 % Normal <=6.0 [facility] Comment on above: Performed By: #### A 1C #### [facility] [address] [address] [address] Conor Chan LIPID PROFILEon 12-20-2021 CHOL-HDL RATIO NORM SEE BELOW Normal [facility] Comment on above: Result Comment: 3.3 - 4.4 LOW RISK 4.4 - 7.1 AVERAGE RISK 7.1 - 11.0 MODERATE RISK >11.0 HIGH RISK Performed By: #### L IPID, TSH, T7, URIC, CMP #### [facility] [address] [place] [address] Dr. Conor Chan Cholesterol [Mass/Vol] 161 mg/dL Normal <=200 [facility] Comment on above: Performed By: #### L IPID, TSH, T7, URIC, CMP #### [facility] [address] [place] [address] Dr. Conor Chan Cholesterol in HDL [Mass/Vol] 50 mg/dL Normal [facility] Comment on above: Performed By: #### L IPID, TSH, T7, URIC, CMP #### [facility] [address] [address] [address] Conor Chan Cholesterol in LDL [Mass/Vol] 96.0 mg/dL Normal [facility] Comment on above: Performed By: #### L IPID, TSH, T7, URIC, CMP #### [facility] [address] [address] [address] Conor Chan Cholesterol.total/ Cholesterol in HDL [Mass ratio] 3.2 {ratio} Normal [facility] Comment on above: Performed By: #### L IPID, TSH, T7, URIC, CMP #### [facility] [address] [address] [address] Conor Chan HDL NORMAL > or = 60 mg/dl - LO W CARDIOVASCULAR RISK <40 mg/dl - HIGH CARDIOVASCULAR RISK Normal [facility] Comment on above: Performed By: #### L IPID, TSH, T7, URIC, CMP #### [facility] [address] [place] [address] Dr. Conor Chan LDL CALC NORMAL SEE BELOW Normal [facility] Comment on above: Result Comment: <100 mg/dl OPTIMAL 100 - 129 mg/dl NEAR OR ABOVE OPTIMAL 130 - 159 mg/dl BORDERLINE HIGH 160 - 189 mg/dl HIGH >190 mg/dl VERY HIGH Performed By: #### L IPID, TSH, T7, URIC, CMP #### [facility] [address] [place] [address] Dr. Conor Chan Triglyceride [Mass/Vol] 75 mg/dL Normal <=150 [facility] Comment on above: Performed By: #### L IPID, TSH, T7, URIC, CMP #### [facility] [address] [place] [address] Dr. Conor Chan VLDL CALC 15.0 mg/dL Normal [facility] Comment on above: Performed By: #### L IPID, TSH, T7, URIC, CMP #### [facility] [address] [place] [address] Dr. Conor Chan PROF 14(COMP METB)on 022 Albumin [Mass/Vol] 3.7 g/dL Normal 3.5-5.0 [facility] [facility] Comment on above: Performed By: #### L IPID, TSH, T7, URIC, CMP #### [facility] [address] [place] [address] Dr. Conor Chan Albumin/Globulin [Mass ratio] 0.9 {ratio} Normal [facility] Comment on above: Performed By: #### L IPID, TSH, T7, URIC, CMP #### [facility] [address] [place] [address] Dr. Conor Chan ALP [Catalytic activity/Vol] 58 U/L Normal 38-126 [facility] Comment on above: Performed By: #### L IPID, TSH, T7, URIC, CMP #### [facility] [address] [place] [address] Dr. Conor Chan ALT [Catalytic activity/Vol] 40 U/L Normal 21-72 [facility] Comment on above: Performed By: #### L IPID, TSH, T7, URIC, CMP #### [facility] [address] [place] [address] Dr. Conor Chan Anion gap [Moles/Vol] 5.5 mmol/L Normal [facility] Comment on above: Performed By: #### L IPID, TSH, T7, URIC, CMP #### [facility] [address] [place] [address] Dr. Conor Chan AST [Catalytic activity/Vol] 18 U/L Normal 17-59 [facility] Comment on above: Performed By: #### L IPID, TSH, T7, URIC, CMP #### [facility] [address] [place] [address] Dr. Conor Chan Bilirubin [Mass/Vol] 0.5 mg/dL Normal 0.2-1.3 [facility] Comment on above: Performed By: #### L IPID, TSH, T7, URIC, CMP #### [facility] [address] [place] [address] Dr. Conor Chan Calcium [Mass/Vol] 9.9 mg/dL Normal 8.4-10.2 [facility] Comment on above: Performed By: #### L IPID, TSH, T7, URIC, CMP #### [facility] [address] [place] [address] Dr. Conor Chan Chloride [Moles/Vol] 97 mmol/L Critically low 98-107 [facility] Comment on above: Performed By: #### L IPID, TSH, T7, URIC, CMP #### [facility] [address] [place] [address] Dr. Conor Chan CO2 [Moles/Vol] 30.7 mmol/L Critically high 22.0-30.0 [facility] Comment on above: Performed By: #### L IPID, TSH, T7, URIC, CMP #### [facility] [address] [place] [address] Dr. Conor Chan Creatinine [Mass/Vol] 1.04 mg/dL Normal 0.66-1.25 [facility] Comment on above: Performed By: #### L IPID, TSH, T7, URIC, CMP #### [facility] [address] [place] [address] Dr. Conor Chan EGFR-AF [place] ISLANDER >60 Normal >=60 [facility] Comment on above: Performed By: #### L IPID, TSH, T7, URIC, CMP #### [facility] [address] [place] [address] Dr. Conor Chan EGFR-NON AF [place]ER >60 Normal >=60 [facility] Comment on above: Performed By: #### L IPID, TSH, T7, URIC, CMP #### [facility] [address] [place] [address] Dr. Conor Chan Globulin (S) [Mass/Vol] 4.2 g/dL Normal [facility] Comment on above: Performed By: #### L IPID, TSH, T7, URIC, CMP #### [facility] [address] [place] [address] Dr. Conor Chan Glucose [Mass/Vol] 122 mg/dL Critically high 74-106 T [facility] Comment on above: Performed By: #### L IPID, TSH, T7, URIC, CMP #### [facility] [address] [place] [address] Dr. Conor Chan Potassium [Moles/Vol] 3.2 mmol/L Critically low 3.4-5.0 [facility] Comment on above: Performed By: #### L IPID, TSH, T7, URIC, CMP #### [facility] [address] [place] [address] Dr. Conor Chan Protein [Mass/Vol] 7.9 g/dL Normal 6.1-8.[address] [facility] Comment on above: Performed By: #### L IPID, TSH, T7, URIC, CMP #### [facility] [address] [place] [address] Dr. Conor Chan Sodium [Moles/Vol] 130 mmol/L Critically low 137-145 Th [facility] Comment on above: Performed By: #### L IPID, TSH, T7, URIC, CMP #### [facility] [address] [place] [address] Dr. Conor Chan Urea nitrogen [Mass/Vol] 15.0 mg/dL Normal 9.0-20.0 [facility] Comment on above: Performed By: #### L IPID, TSH, T7, URIC, CMP #### [facility] [address] [place] [address] Dr. Conor Chan Urea nitrogen/Creatinin e [Mass ratio] 14.4 mg/mg Normal [facility] Comment on above: Performed By: #### L IPID, TSH, T7, URIC, CMP #### [facility] [address] [place] [address] Dr. Conor Chan TSHon 12-20-2021 TSH 2.122 uIU/mL Normal 0.470-4.680 [facility] Comment on above: Performed By: #### L IPID, TSH, T7, URIC, CMP #### [facility] [address] [place] [address] Dr. Conor Chan TSH RANGE SEE BELOW Normal [facility] Comment on above: Result Comment: <0.3 4 UIU/ml HYPERTHYROID 0.34-5.60 UIU/ml EUTHYROID >5.60 UIU/ml HYPOTHYROID Performed By: #### L IPID, TSH, T7, URIC, CMP #### [facility] [address] [place] [address] Dr. Conor Chan URIC ACID SERUMon 12-20-2021 Urate [Mass/Vol] 7.3 mg/dL Normal 3.5-8.5 [facility] Comment on above: Performed By: #### L IPID, TSH, T7, URIC, CMP #### [facility] [address] [place] [address] Dr. Conor Chan XR LSPINE MIN 4 [...] by: OSCAR FRANCO Date: 2021-12-20 10:06 Normal [facility] Vital Signs Date Time Vital Sign Value Performing Clinician Facility 07-20-2024 13:29-0400 Blood Pressure Location Rell ADAMSON [facility] 07-20-2024 13:29-0400 Diastolic blood pressure 78 mm[Hg] Rell ADAMSON [facility] 07-20-2024 13:29-0400 Heart rate 72 /min Rell ADAMSON [facility] 07-20-2024 13:29-0400 Respiratory rate 16 /min Rell ADAMSON [facility] 07-20-2024 13:29-0400 Systolic blood pressure 116 mm[Hg] Rell ADAMSON [facility] 07-08-2024 09:47-0400 Body height 182.9 cm Car LUCIANO Work Phone: [facility] 07-08-2024 09:47-0400 Body mass index (BMI) [Ratio] 36.84 kg/m2 Car LUCIANO Work Phone: [facility] 07-08-2024 09:47-0400 Body weight 123.2 kg Car LUCIANO Work Phone: [facility] 2023 08:03-0400 Body height 182.9 cm Bilal Sushil LANDA Work Phone: [facility] 2023 08:03-0400 Body weight 120.2 kg Bilal Sushil LANDA Work Phone: [facility] 06-02-2023 13:26-0400 Body height 182.9 cm Darren Elizabeth APRN.PHARMACY DELIVERY DRIVER Work Phone: [facility] 06-02-2023 13:26-0400 Body weight 117.03 kg Darren Elizabeth APRN.PHARMACY DELIVERY DRIVER Work Phone: [facility] 06-02-2023 13:26-0400 Diastolic blood pressure 84 mm[Hg] Darren Elizabeth APRN.PHARMACY DELIVERY DRIVER Work Phone: [facility] 06-02-2023 13:26-0400 Heart rate 63 /min Darren Elizabeth APRN.KIRILL Work Phone: [facility] 06-02-2023 13:26-0400 Respiratory rate 18 /min Darren Elizabeth APRN.PHARMACY DELIVERY DRIVER Work Phone: [facility] 06-02-2023 13:26-0400 SaO2% (BldA) [Mass fraction] 95 % Darren Elizabeth APRN.PHARMACY DELIVERY DRIVER Work Phone: [facility] 06-02-2023 13:26-0400 Systolic blood pressure 128 mm[Hg] Darren Elizabeth APRN.PHARMACY DELIVERY DRIVER Work Phone: [facility] 05-13-2023 11:22-0400 Body height 182.88 cm Avi Yepez Work Phone: [facility] [employer] 250 DO Work Phone: 05-13-2023 11:22-0400 Body mass index (BMI) [Ratio] 36.21 kg/m2 Avi Aguilar [employer] Work Phone: [facility] 250 DO Work Phone: 05-13-2023 11:22-0400 Body surface area Derived from formula 2.41 m2 Avi Aguilar [employer] Work Phone: [facility] 250 DO Work Phone: 05-13-2023 11:22-0400 Body weight 121.11 kg Avi M Hoy Work Phone: [facility] 250 DO Work Phone: 05-13-2023 11:22-0400 Diastolic blood pressure 78 mm[Hg] Avi M Hoy Work Phone: [facility] 250 DO Work Phone: 05-13-2023 11:22-0400 Heart rate 64 /min Vai M Hoy Work Phone: [facility] 250 DO Work Phone: 05-13-2023 11:22-0400 Systolic blood pressure 132 mm[Hg] Avi M Hoy Work Phone: [facility] 250 DO Work Phone: 05-07-2022 11:36-0400 Body height 182.88 cm Avi M Hoy Work Phone: [facility] 250 DO Work Phone: 05-07-2022 11:36-0400 Body mass index (BMI) [Ratio] 38.38 kg/m2 Avi M Hoy Work Phone: [facility] 250 DO Work Phone: 05-07-2022 11:36-0400 Body surface area Derived from formula 2.47 m2 Avi M Hoy Work Phone: [facility] 250 DO Work Phone: 05-07-2022 11:36-0400 Body weight 128.37 kg Avi M Hoy Work Phone: [facility] 250 DO Work Phone: 05-07-2022 11:36-0400 Diastolic blood pressure 72 mm[Hg] Avi M Hoy Work Phone: [facility] 250 DO Work Phone: 05-07-2022 11:36-0400 Heart rate 66 /min Avi Aguilar [employer] Work Phone: [facility] 250 DO Work Phone: 05-07-2022 11:36-0400 Systolic blood pressure 110 mm[Hg] Avi Aguilar [employer] Work Phone: [facility] 250 DO Work Phone: Encounters Encounter Date Encounter Type Care Provider Facility Start: 06-17-2025 End: 06-17-2025 Bamboo flowsheet Car LUCIANO Work Phone: [facility] Start: 06-17-2025 End: 06-17-2025 Bamboo flowsheet Car LUCIANO Work Phone: [facility] Start: 06-13-2025 End: 06-13-2025 ambulatory Evelyne Polk MD Facility:[facility] Start: 04-20-2025 End: 04-20-2025 Bambowade flowsgregorio Thomas DO Work Phone: [facility] Start: 04-20-2025 End: 04-20-2025 Bamboo flowsheet Jr. Elias Thomas DO Work Phone: [facility] Start: 04-20-2025 End: 04-20-2025 Office outpatient visit 40 minutes Jr. Elias Thomas DO Work Phone: [facility] Comment on above: Acute pain of left k nee (Primary Dx); Arthritis of left knee Start: 04-20-2025 End: 04-20-2025 ambulatory ELIAS EDEN Not Available Start: 03-04-2025 End: 03-04-2025 ambulatory [facility] Start: 02-18-2025 End: 02-18-2025 Office outpatient visit 15 minutes Car LUCIANO Work Phone: [facility] Comment on above: Acute pain of left k nee (Primary Dx); Arthritis of left knee; Knee instability, left Start: 02-18-2025 End: 02-18-2025 ambulatory CAR CUELLAR Not Available Start: 12-13-2024 End: 12-13-2024 ambulatory Evelyne Polk MD Facility:[facility] Start: 09-09-2024 End: 09-09-2024 [facility] Start: 09-08-2024 End: 09-08-2024 ambulatory Rell ADAMSON Facility:[facility] Start: 09-08-2024 End: 09-08-2024 Patient encounter procedure Rell ADAMSON [facility] [place] Start: 08-30-2024 End: 08-30-2024 Bamboo flowsheet Car [...] 08-25-2024 ambulatory MD Avi Yepez Work Phone: [facility] Work Phone: Start: 08-25-2024 End: 08-25-2024 Departed Referred MD Avi Yepez Work Phone: [facility] Start: 08-25-2024 End: 08-25-2024 ambulatory Rell ADAMSON Facility:[id number] Start: 08-16-2024 End: 08-16-2024 Bamboo flowsheet [...] Start: 07-28-2024 End: 07-28-2024 Refill Corona Peng [employer] Work Phone: [facility] Comment on above: Post-op pain (Primar y Dx) Start: 07-20-2024 End: 07-20-2024 ambulatory Rell ADAMSON Facility:[facility] Start: 07-20-2024 End: 07-20-2024 Patient encounter procedure Rell ADAMSON [facility] Start: 07-19-2024 End: 07-19-2024 Bamboo flowsheet Maria E Liv PT [facility] Start: 07-19-2024 End: 07-19-2024 Bamboo flowsheet Maria E Commodore PT [facility] Start: 07-19-2024 End: [...] Start: 07-08-2024 End: 07-08-2024 Bamboo flowsheet Car Cuellar PA Work Phone: [facility] Start: 07-08-2024 End: 07-08-2024 Bamboo flowsheet Car Cuellar PA Work Phone: [facility] Start: 07-08-2024 End: 07-08-2024 Patient encounter procedure Car LUCIANO Work Phone: [facility] Comment on above: Preop examination (P rimary Dx); Internal derangement of left knee Start: 07-08-2024 End: 07-08-2024 Preprocedural examination done Car LUCIANO Work Phone: [facility] Start: 07-08-2024 End: 07-08-2024 ambulatory CAR CUELLAR Not Available Start: 07-05-2024 ambulatory [facility] Facility:[facility] Start: 06-21-2024 End: 06-21-2024 Office outpatient visit 25 minutes Jr. Elias Thomas DO Work Phone: [facility] Comment on above: Internal derangement of left knee (Primary Dx) Start: 06-21-2024 End: 06-21-2024 ambulatory ELIAS EDEN Not Available Start: 06-11-2024 End: 06-11-2024 ambulatory [facility] Start: 06-09-2024 Non-patient / Non-visit MD Indra Yepez Work Phone: [facility] Work Phone: Start: 2023 End: 2023 ambulatory BILAL CHINA BUTT Facility:[facility] Start: 2023 End: 2023 Office outpatient new 30 minutes Bilal China Butt Work Phone: [facility] Comment on above: Meralgia paresthetic a of left side (Primary Dx); Chronic midline low back pain without sciatica Start: 08-01-2023 End: 08-01-2023 ambulatory Darren Elizabeth X RAY SERVICE ENGINEER.PHARMACY DELIVERY DRIVER Work Phone: [facility] Comment on above: Dr chong Cut me open Start: 07-01-2023 End: 07-01-2023 ambulatory NIKOLAY Maira CAMP Facility:[facility] Start: 06-26-2023 Telephone encounter Nikolay Camp DO Work Phone: [facility] Comment on above: Preparations For Pro cedures (Pre-injection instructions) Start: 06-19-2023 Orders Only Nikolay hall DO Work Phone: Neurology Comment on above: Lumbar radiculopathy (Primary Dx); Displacement of lumbar intervertebral disc without myelopathy Start: 06-02-2023 End: 06-03-2023 ambulatory DARREN ELIZABETH Facility:[facility] Start: 06-02-2023 End: 06-02-2023 Patient encounter procedure Darren Elizabeth X RAY SERVICE ENGINEER.PHARMACY DELIVERY DRIVER Work Phone: [facility] Comment on above: Radiculopathy, lumba r region (Primary Dx); Lumbar disc herniation Start: 05-13-2023 Office outpatient vi sit 25 minutes Avi Yepez Work Phone: [facility] 250 DO Work Phone: Start: 05-13-[address] [facility] Facility: Start: 05-06-2023 Chart abstracting None (Historical) Neurology Start: 12-16-2022 Rx Renewal Avi Yepez Work Phone: [facility] 250 DO Work Phone: Start: 07-17-2022 End: 07-17-2022 Departed Referred MD Avi Yepez Work Phone: [facility] 250 Start: 05-07-2022 Office outpatient vi sit 25 minutes Avi Yepez Work Phone: [facility] 250 DO Work Phone: Start: 01-03-[address] AVI YEPEZ Facility :[facility] Start: 12-21-2021 Encounter for genera l adult medical examination without abnormal findings DR AVI YEPEZ [facility] Start: 12-20-2021 End: 12-21-[address] AVI YEPEZ Facility:[facility] Start: 12-20-2021 End: 12-21-2021 Encounter for general adult medical examination without abnormal findings DR AVI YEPEZ Facility:[facility] Start: 12-10-2021 Rx Renewal Reilly mcmahon MD Work Phone: [facility] 250 DO Work Phone: Procedures Date Procedure Procedure Detail Performing Clinician Start: 02-18-2025 Arthrocentesis aspir&/inj major jt/bursa w/o us Car LUCIANO Work Phone: Start: 08-25-2024 Colonoscopy Car LUCIANO Work Phone: Start: 08-25-2024 Colonoscopy Rell NILClif Start: 08-25-2024 Esophagogastroduodenoscopy Rell NILClif Start: 07-09-2024 ALL CBC WITH AUTO DIFF Car Farris Work Phone: Start: 07-17-2022 Radiologic examination of knee MD Puja Yepez Work Phone: Start: 12-20-[address] AVI YEPEZ Comment on above: Performed By: #### PSASC #### [facility] [address] [place] [address] Dr. Conor Chan Start: 06-09-2020 Total colonoscopy Reilly Nelson MD Work Phone: Start: 07-02-2019 End: 07-02-2019 Colonoscopy Darren Elizabeth APRN.CNP Work Phone: Cardiac catheterization Will renetta Nelson MD Work Phone: Cardiac catheterization Jorge ADAMSON Cholecystectomy Reilly miranda MD Work Phone: Cholecystectomy Rell ADAMSON Nasal septoplasty Rell MORALEZ Plan of Treatment Date Care Activity Detail Author Start: 08-25-2034 Screening for malign ant neoplasm of colon [facility] Start: 07-02-2029 Screening for malign ant neoplasm of colon [facility] Start: 12-20-2026 PROSTATE CANCER SCREENING DISCUSSION PROSTATE CANCER SCREENING DISCUSSION [facility] Start: 07-14-2025 End: 07-14-2025 Patient encounter procedure [facility] Start: 06-27-2025 Influenza vaccination Influenza Vacc ine (#1) [facility] Start: 06-17-2025 End: 06-17-2025 Patient encounter procedure [facility] Comment on above: Acute pain of left k nee (Primary Dx) Start: 04-20-2025 End: 04-20-2025 Patient encounter procedure 04/20/2025 8:30 AM EDT Office Visit [facility] [address] [place] [phone] Jr. Elias Thomas DO [address] [facility] [address] [place] [address] Arrived [facility] Comment on above: Arrived Start: 08-30-2024 End: 08-30-2024 Patient encounter procedure 08/30/2024 10:15 AM EST Office Visit [facility] [address] [place] [address] Car Cuellar PA [address] [facility] [address] [place] [address] S/P left knee arthroscopy (Primary Dx) [facility] Comment on above: S/P left knee arthro scopy (Primary Dx) Start: 08-25-2024 [facility] Start: 08-16-2024 End: 08-16-2024 Patient encounter procedure 08/16/2024 10:00 AM EDT Office Visit [facility] [address] [place] [phone] Car Cuellar PA [address] [place] [address] S/P left knee arthroscopy (Primary Dx) [facility] Comment on above: S/P left knee arthro scopy (Primary Dx) Start: 08-12-2024 End: 08-12-2024 Patient encounter procedure 08/12/2024 9:00 AM EDT Office Visit [facility] [address] [place] [phone] Car Cuellar, PA [address] [facility] [address] [place] [address] [facility] Start: 07-29-2024 End: 07-29-2024 Patient encounter procedure 07/29/2024 10:45 AM EDT Procedure Visit [facility] Jr. Elias Thomas DO [address] [facility] [address] [place] [address] [facility] Start: 07-19-2024 End: 07-19-2024 ambulatory [facility] Comment on above: Internal derangement of left knee Start: 07-08-2024 End: 07-08-2025 CBC W Auto Differential panel - Blood CBC and differential Lab Routine Preop examination Expected: 07/08/2024 (Approximate), Expires: 07/08/2025 [facility] Work Phone: Comment on above: Expected: 07/08/2024 (Approximate), Expires: 07/08/2025 Start: 07-08-2024 End: 07-08-2024 Patient encounter procedure 07/08/2024 10:00 AM EDT Office Visit [facility] [address] [place] [phone] Car Cuellar, PA [address] [facility] [address] [place] [address] Preop examination (Primary Dx); Internal derangement of left knee [facility] Comment on above: Preop examination (P rimary Dx); Internal derangement of left knee Start: 06-27-2024 Influenza vaccination Influenza Vacc ine (#1) [facility] Start: 06-27-2023 Influenza vaccination C [facility] Start: 05-13-2023 FUV, Provider: Reilly Nelson, Status: Pen, Time: 11:10 AM FUV, Provider: Reilly Nelson, Status: Pen, Time: 11:10 [facility] Work Phone: Start: 10-27-2022 DEPRESSION ASSESSMENT DEPRESSION ASS ESSMENT [facility] Start: 05-17-2022 COVID-19 VACCINE (6 - Pfizer series) COVID-19 VACCINE (6 - Pfizer series) [facility] Start: 05-15-2022 FUV, Provider: Reilly Nelson, Status: Pen, Time: 2:00 PM FUV, Provider: Reilly Nelson, Status: Pen, Time: 2:00 PM [facility] Work Phone: Start: 07-02-2020 Colonoscopy COLONOSCOPY [facility] Start: 07-02-2020 COLORECTAL CANCER SCREENING COLORECTAL CANCER SCREENING [facility] Start: 2016 Prostate Cancer Screening Discussion Prostate Cancer Screening Discussion [facility] Start: 2011 SHINGRIX VACCINE (1 of 2) SHINGRIX VACCINE (1 of 2) [facility] Start: 2006 COLOGUARD (FIT-DNA) COLOGUARD (FIT-D NA) [facility] Start: [address] COLONOGRAPHY [facility] Start: 2006 DIABETES SCREEN DIABETES SCREEN [facility] Start: 2006 Diabetes Screening Diabetes Screenin g [facility] Start: 2006 FECAL OCCULT BLOOD FECAL OCCULT BLOO D [facility] Start: 2006 SIGMOIDOSCOPY SIGMOIDOSCOPY [facility] Start: 1996 Lipid 1996 panel - Serum or Plasma Lipid Screening [facility] Start: 1996 LIPID SCREEN LIPID SCREEN [facility] Start: 1980 Urine microalbumin profile [facility] Start: 1979 HEPATITIS C SCREENING HEPATITIS C SC REENING [facility] Start: 1979 HIV SCREENING HIV SCREENING [facility] Start: 1961 Screening for malign ant neoplasm of colon [facility] End: 09-02-2024 Radex spine lumbosacral minimum 4 views XR LUMBAR MOTION 4V AP/LAT/ FLEX/EXT Radiology Routine Meralgia paresthetica of left side 1 Occurrences starting 2023 until 09/02/2024 [facility] Work Phone: Comment on above: 1 Occurrences starti ng 2023 until 09/02/2024 SPINE INTERVENTION PROCEDURE SPINE INTERVENTION PROCEDURE Procedures Routine Radiculopathy, lumbar region Lumbar disc herniation Ordered: 06/02/2023 [facility] Work Phone: Comment on above: Ordered: 06/02/2023 [facility] Immunizations Immunization Date Immunization Notes Care Provider Deepa rehman 09-03-2024 influenza virus vaccine, unspecified formulation Car LUCIANO Work Phone: [facility] 09-12-2023 influenza virus vaccine, unspecified formulation JrHerbie Stepanic DO Work Phone: [facility] 10-14-2022 Pfizer COVID-19 Vac Bivalent 30 MCG/0.3ML Intramuscular Suspension Avi M Hoy Work Phone: [facility] 10-03-2022 influenza, injectabl e, quadrivalent, preservative free Avi M Hoy Work Phone: [facility] 250 DO Work Phone: 10-03-2022 influenza virus vaccine, unspecified formulation Darren Elizabeth X RAY SERVICE ENGINEER.PHARMACY DELIVERY DRIVER Work Phone: [facility] 03-22-2022 Comirnaty 30 MCG/0.3 ML Intramuscular Suspension [facility]vi M Hoy [facility] DO Work Phone: 03-22-2022 Moderna COVID-19 Vaccine 100 MCG/0.5ML Intramuscular Suspension Avi M Hoy Work Phone: [facility] Comment on above: Series: 03-22-2022 SARS-CoV-2 mRNA ([id number] se) vaccine Rell VALENCIAL [facility] 03-22-2022 zoster vaccine recombinant Avi M Hoy Work Phone: [facility] 250 DO Work Phone: 09-03-2021 Pfizer-BioNTech COVID-19 Vacc 30 MCG/0.3ML Intramuscular Suspension Avi M Hoy Work Phone: [facility] 08-25-2021 influenza virus vaccine, unspecified formulation Rell [employer]ENCIAL [facility] 08-25-2021 influenza, injectabl e, quadrivalent, preservative free Avi M Hoy Work Phone: [facility] 250 DO Work Phone: 08-25-2021 zoster vaccine recombinant Avi M Hoy Work Phone: [facility] 250 DO Work Phone: 02-13-2021 Pfizer-BioNTech COVID-19 Vacc 30 MCG/0.3ML Intramuscular Suspension Avi M Hoy Work Phone: [facility] 01-20-2021 SARS-CoV-2 (COVID-19 ) mRNA BNT-162b2 vax Rell [employer]EN[employer] [facility] 01-13-2021 Pfizer-BioNTech COVID-19 Vacc 30 MCG/0.3ML Intramuscular Suspension Avi M Hoy Work Phone: [facility] 12-23-2020 Pfizer-BioNTech COVID-19 Vacc 30 MCG/0.3ML Intramuscular Suspension Avi M Hoy Work Phone: [facility] 08-28-2020 influenza, injectabl e, quadrivalent, preservative free Avi M Hoy Work Phone: [facility] 250 DO Work Phone: 08-28-2020 influenza virus vaccine, unspecified formulation Juan R Ling MD Work Phone: [facility] Payers Date Payer Category Payer Self-pay [id number] [phone] [id number] 2021 Private Health Insurance [id number] 2007 Managed Care HMO (unspecified) [id number] 1961 Unknown [id number] [id number] 1961 Unknown [id number] 2.16.840.1.875416.3.579.2.593 1961 Unknown [id number] 2.16.840.1.596098.3.579.2.356 1961 Unknown [id number] 2.16.840.1.040621.3.579.2.727 1961 Unknown [id number] 2.16.840.1.791579.3.579.2.727 1961 Unknown [id number] 2.16.840.1.128182.3.579.2.727 1961 Unknown [id number] 2.16.840.1.339764.3.579.2.125 9 1961 Unknown [id number] 2.16.840.1.524586.3.579.2.125 9 1961 Unknown [id number] 2.16.840.1.870366.3.579.2.125 9 1961 Unknown [id number] 2.16.840.1.915460.3.579.2.125 9 1961 Unknown [id number] 2.16.840.1.431927.3.579.2.125 9 1961 Unknown [id number] 2.16.840.1.475584.3.579.2.125 9 1961 Unknown [id number] 2.16.840.1.010600.3.579.2.125 9 1961 Unknown [id number] 2.16.840.1.017260.3.579.2.196 1961 Unknown [id number] 2.16.840.1.089735.3.579.2.196 1959 Private Health Insurance [id number] 1959 Self-pay [id number] Unknown Unknown [facility] [id number] Unknown [id number] Social History Date Type Detail Facility Start: 06-02-2023 End: 04-20-2025 Consumes alcohol Consumes alcohol [facility] Comment on above: socially; occasional; Start: 09-28-2020 End: 05-10-2024 Tobacco smoking status NHIS Never smoked tobacco (finding) [facility] Start: 1960 Sex Assigned At Male F [facility] Tobacco smoking stat us HIIS Tobacco smoking consumption unknown [facility] Start: 1960 Sex Assigned At Not on file [facility] Start: 06-02-2023 End: 04-20-2025 Gender identity Not on file [facility] Start: 06-02-2023 End: 05-10-2024 Tobacco use and exposure Smokeless tobacco non-user [facility] National Score (1-10 0), lower number is lower risk 61 [facility] Start: 07-28-2023 Gender identity Identifies as male gender (finding) [facility] Start: 07-28-2023 Sexual orientation Heterosexual (fin ding) [facility] Start: 07-08-2024 End: 04-20-2025 Alcoholic beverage intake Current drinker of alcohol (finding) [facility] Start: 05-10-2024 Alcohol Comment 1/WK [facility] Functional Status Date Assessment Result Facility 09-08-2024 Functional Status N/A [facility] [place] 07-20-2024 Functional Status N/A [facility] [place] Clinical Notes 05-06-2023 to 04-20-2025 Jr. Elias [...] or the patient requires discharge to a retirement facility, the patient may require to have additional inpatient hospital stay days following the surgery. Physical therapy is contraindicated in this patient''s case because of the tosi-gw-axef articulation of the patient's knee.. Questions answered in laymen terms at the bedside. The diagnosis, home exercise plan and any ongoing restrictions/ recommendations reviewed. If unable to be reached in office, I recommend evaluation at nearest Emergency Room if any symptoms worsened or new symptoms develop for requiring urgent evaluation. Visit was preformed using [employer]-aerial applicator pilot speech recognition. documented in this encounter [facility] 03-04-2025 Note [place] [facility] - [facility] Subjective Kim Nichols is [...] and he had carotid stenosis, sister had NC, mother had brain aneurysm ROS All systems [...] twice a day., Disp: , Rfl: HYDROcodone-acetaminophen (Chico) 5-325 mg tablet, Take 1 tablet by [...] and symmetric in (more content not included)... [facility] 02-18-2025 History of Present illness Narrative [...] Current pain management routine includes taking 2 Chico before activity, which is not recommended. Discussed [...] requiring urgent evaluation. Visit was preformed using [employer]-aerial applicator pilot speech recognition. documented in this encounter [facility] [...] as needed Richard Benitez MD Interventional Cardiology [facility] 08-30-2024 History of Present illness Narrative Images [...] tab(s), Oral, Ivy (more content not included)... [facility] Comment on above: Result Comment: Elec [...] Answer: No Ambulatory referral to Physical Therapy [facility] ; PLEASE CALL PATIENT TO SCHEDULE, [...] SX INSTRUCTIONS GIVEN TODAY 07/08 @10AM - [place] CARDIAC CLEARANCE ; OBTAINED - CASEY PROTOCOL PT REFERRAL SENT ; CRUTCH TRAIN AND DISPENSE NPAR ([id number], [id number]) Follow up for 08/12 @9AM W/AMANDA IN [place]. documented in this encounter [facility] 06-21-2024 History of Present illness Narrative Images from the original note were not included. HISTORY OF PRESENT ILLNESS: EST PT Kim Nichols is an 63 y.o. @ male. EST PT RECHECK LT KNEE PAIN - POSSIBLY DISCUSS SURGERY- PT WAS GETTING A CARDIAC WORK UP- PT DID SEE DR BENITEZ (DRAG SEINER) 06/11/24; PT STATES HE IS CLEARED (OFFICE NOT IS UNDER ENCOUNTER) PT STATES HE WAS ADMITTED TO [facility] FOR A-FIB X 1DAY ~05/17/24 XRAY [...] Use: Low Risk (06/11/2024) Received from The [facility] Patient History Smoking Tobacco Use: Never Smokeless [...] states that he was cleared per his aircraft structural design engineer ; we will need to obtain clearance [...] without additional cardiac (more content not included)... [facility] 10-09-2023 Note HNO ID: [id number] Author: Juan R Ling MD Service: ? [...] issues. 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 [facility] 2023 Note HNO ID: [id number] Author: Bossman Saunders Service: ? Author Type: [...] opioids Medications: See medication reconciliation list in [facility] MEDICATIONS: Gabapentin, Chico, Tylenol Have you ever seen a pain [...] routine daily living activities? No Bossman Escoto [facility] 2023 History of Present illness Narrative [...] issues. 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 Author Type: Nurse Practitioner Type: Progress Notes Filed: 08/01/2023 1:30 PM Note Text: SPINE SURGERY ESTABLISHED VISIT This is a virtual visit using [employer] Video Visit. It required patient-provider interaction for the medical decision making as documented below. DATE OF SERVICE: 08/01/2023 DATE OF LAST VISIT: 06/02/2023 SUBJECTIVE: HPI:Kim Nichols is a 62 year old male presenting via virtual vist s/p Left L5 transforaminal epidural steroid injection on 07/01/[address] Camp. [place] great initially and for the first few [...] which included preparing to see the patient, [id number] patient care, completing clinical documentation, obtaining and/or reviewing separately obtained history, performing a medically appropriate examination, counseling and educating the patient/family/caregiver, independently interpreting results (not separately reported), and communicating results to the patient/family/caregiver. SIGNATURE: Darren Elizabeth APRN.KIRILL PATIENT NAME: Kim Nichols DATE: August 01, 2023 TIME: 12:53 PM PAGER: [facility] 06-26-2023 Miscellaneous Notes Phoned patient and message left for Kim to confirm appointment for Kim Nichols for spine procedure on 07/01/2023. Patient notified that Glenn will call patient the night before with the time to arrive for injection. Patient verbalized understanding of the following: -Provided education on spine procedure and answered questions related to spine injection procedure. -Brush Holder Assembler is needed to drive patient home. -NPO [...] to report. Diabetic: No Patient given number [phone], spine injections schedulers, if there is any [...] POST INJECTION INSTRUCTIONS documented in this encounter [facility] 06-02-2023 Note HNO ID: [id number] Author: Darren Elizabeth APRN.KIRILL Service: ? Author [...] with him pain. He also is prescribed Chico for breakthrough pain which he only takes [...] Normal. DATA REVIE (more content not included)... [facility] 06-02-2023 History of Present illness Narrative SPINE [...] with him pain. He also is prescribed Chico for breakthrough pain which he only takes [...] which included preparing to see the patient, [id number] patient care, completing clinical documentation, obtaining and/or reviewing separately obtained history, performing a medically appropriate examination, counseling and educating the patient/family/caregiver, independently interpreting results (not separately reported), and communicating results to the patient/family/caregiver. SIGNATURE: Darren Elizabeth APRN.CNP PATIENT NAME: Kim Nichols DATE: June 02, 2023 TIME: 1:57 PM PAGER: documented in this encounter [facility] 05-14-2023 Note HNO ID: [id number] Author: Ember Delatorre PA-C Service: ? Author Type: Physician Cigarette Making Examiner Type: Progress Notes Filed: 05/14/2023 4:17 PM Note Text: Per Triage: Kim Nichols is a 62 year old male that requests evaluation of lumbar spine. Per review, they have symptoms of back and LLE pain. Positive for numbness. CMT: Medication: Gabapentin, Tylenol, Chico Studies (Reports unless indicated) MRI Lumbar: L4/5 moderate left foramen narrowing which may contribute to patient's symptoms 2. L5/S1 disc protrusion without significant canal or foramen narrowing. Disposition: Please schedule with surgical SANDY. Consider if injection is appropriate or on effective dose of Neurontin. Also see if symptoms correlate with imaging. [facility] 05-14-2023 History of Present illness Narrative Per Triage: Kim Nichols is a 62 year old male that requests evaluation of lumbar spine. Per review, they have symptoms of back and LLE pain. Positive for numbness. CMT: Medication: Gabapentin, Tylenol, Chico Studies (Reports unless indicated) MRI Lumbar: L4/5 moderate left foramen narrowing which may contribute to patient's symptoms 2. L5/S1 disc protrusion without significant canal or foramen narrowing. Disposition: Please schedule with surgical SANDY. Consider if injection is appropriate or on effective dose of Neurontin. Also see if symptoms correlate with imaging. Patient name: Kim Nichols Are you being referred by a [place] for Spine Health Provider or Pain Management [...] facility where the MRI/CT/myelogram was completed: The [address] [address] MRI/CT/myelogram viewable in Epic: No If not, please provide [phone] to fax in imaging reports for review. [...] Additional Comments Hydrocodone documented in this encounter [facility] 05-06-2023 Note HNO ID: [id number] Author: Mauricio Kelley Service: ? Author Type: ? Type: Progress Notes Filed: 05/14/2023 4:17 PM Note Text: Patient name: Kim Nichols Are you being referred by a [place] for Spine Health Provider or Pain Management [...] facility where the MRI/CT/myelogram was completed: The [facility] [address] [place] [address] MRI/CT/myelogram viewable in Epic: No If not, please provide [phone] to fax in imaging reports for review. [...] the surgery was completed: Additional Comments Hydrocodone 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 [facility] Diagnosis Lumbar radiculopathy- Primary Thoracic or lumbosacral neuritis or radiculitis, unspecified Displacement of lumbar intervertebral disc without myelopathy documented in this encounter [facility] note* Diagnosis Meralgia paresthetica of left side- Primary Meralgia paresthetica Chronic midline low back pain without sciatica documented in this encounter [facility] note* Diagnosis Post-op pain- Primary Other acute postoperative pain [facility] Diagnosis S/P left knee arthroscopy- Primary [facility] Diagnosis S/P left knee arthroscopy- Primary documented in this encounter [facility]* Diagnosis Preop examination- Primary Unspecified pre-operative examination Internal derangement of left knee [facility] Diagnosis Internal derangement of left knee- Primary [facility]* Diagnosis Internal derangement of left knee- Primary Need for crutch training documented in this encounter [facility]* Diagnosis Acute pain of left [...] to their favorable impact on blood pressure [facility]cholesterol.[facility] 250 DO Work Phone: History of Present [...] to call if they arise or occur. [facility] 250 DO Work Phone: History of Present [...] to call if they arise or occur. [facility] 250 DO Work Phone: Hospital Discharge instructions No data available for this section [facility] [place] Progress note No data available for this section [facility] [place] Reason for referral (narrative)* Diagnostic Procedure Only (Routine) - Pending Review Specialty Diagnoses / Procedures Referred By Contac t Referred To Contact XR IMAGING Diagnoses Meralgia paresthetica of left side Procedures XR LUMBAR MOTION 4V AP/LAT/ FLEX/EXT RADEX SPINE LUMBOSACRAL MINIMUM 4 VIEWS Juan R Ling MD [address] [place] [address] [place] [address] Referral ID Status Reason Start Date Expiration Date Visits Requested Visits Authorized [id number] Pending Review Auto-Generat ed Referral 2023 09/02/2024 1 1 [facility] for referral (narrative)* Consultation (Routine) - Pending Review Specialty Diagnoses / Procedures Referred By Contac t Referred To Contact Physical Therapy Diagnoses Internal derangement of left knee Procedures [place] OFFICE/OUTPATIENT NEW HIGH MDM 60 MINUTES Car Cuellar PA [address] [place] [address] [facility] [address] [place] [address] Referral ID Status Reason Start Date Expiration Date Visits Requested Visits Authorized [id number] Pending Review Consult and Treat 07/01/2024 12/28/2024 1 1 [facility] Healthcare Summary Purpose Family History No Family [...] being seen for an annual follow-up of.KIM MATACOLTON is being seen for an annual [...] DATE CREATED AUTHOR 01/05/2022 [facility] DATE CREATED AUTHOR AUTHOR'S ORGANIZ ATION 05/14/2023 [facility] DATE CREATED AUTHOR AUTHOR'S ORGANIZ ATION 05/14/2023 [facility] DATE CREATED AUTHOR AUTHOR'S ORGANIZ ATION [address] [facility] DATE CREATED AUTHOR AUTHOR'S ORGANIZ ATION 08/05/2023 [facility] DATE CREATED AUTHOR AUTHOR'S ORGANIZ ATION 09/01/2024 [facility] DATE CREATED AUTHOR AUTHOR'S ORGANIZ ATION 09/10/2024 [facility] DATE CREATED AUTHOR AUTHOR'S ORGANIZ ATION 03/06/2025 [facility] DATE CREATED AUTHOR AUTHOR'S ORGANIZ ATION 06/19/2025 [facility] EPIC DATE CREATED AUTHOR AUTHOR'S ORGANIZ ATION 06/19/2025 [facility] Care Teams (unrecognized sec tion and content) [...] End: August 25, 2024 Rell Adamson MD [facility] Attending Provider Active Start: August 25, 2024 End: August 25, 2024 Team Status: Inactive Member Role Status Dates Avi Yepez MD Primary Care Provider Active Bijan Betts Jr, DO Attending Provider Active Cell Builder Relationship Specialty Start Date End Date Avi Yepez MD [address] [place] [address] Referring Family Medicine 04/24/23 Cell Builder Relationship Specialty Start Date End Date Avi Yepez MD [address] [place] [address] Referring Family Medicine 04/24/23 Cell Builder Relationship Specialty Start Date End Date Avi Yepez MD [address] [place] [address] Referring Family Medicine 04/24/23 Cell Builder Relationship Specialty Start Date End Date Avi Yepez MD [address] [place] [address] PCP - General Family Medicine 06/25/23 Avi Yepez MD [address] [place] [address] Referring Family Medicine 04/24/23 Cell Builder Relationship Specialty Start Date End Date Avi Yepez MD [address] [place] [facility] [address] PCP - General Family Medicine 06/25/23 Avi Yepez MD [address] [place] [facility] [address] Referring Family Medicine 04/24/23 Cell Builder Relationship Specialty Start Date End Date Avi Yepez MD [address] [place] [facility] [address] PCP - General Family Medicine 06/25/23 Avi Yepez MD [address] [facility], [facility] Referring Family Medicine 04/24/23 Cell Builder Relationship Specialty Start Date End Date Avi Yepez MD [address] [facility] [place] [address] PCP - General 05/05/24 Cell Builder Relationship Specialty Start Date End Date Avi Yepez MD [address] [place] [facility] [address] PCP - General 05/05/24 Cell Builder Relationship Specialty Start Date End Date Avi Yepez MD [address] [place] [facility] [address] PCP - General 05/05/24 Cell Builder Relationship Specialty Start Date End Date Aiv Yepez MD [address] [place] [facility] [address] PCP - General 05/05/24 Cell Builder Relationship Specialty Start Date End Date Avi Yepez MD [address] [place] [facility] [address] PCP - General 05/05/24 Cell Builder Relationship Specialty Start Date End Date Avi Yepez MD [address] [place] [facility] [address] PCP - General 05/05/24 Cell Builder Relationship Specialty Start Date End Date Avi Yepez MD [address] [place] [facility] [address] PCP - General 05/05/24 Cell Builder Relationship Specialty Start Date End Date Avi Yepez MD [address] [place] [facility] [address] PCP - General 05/05/24 Cell Builder Relationship Specialty Start Date End Date Avi Yepez MD [address] [place] [facility] [address] PCP - General 05/05/24 Cell Builder Relationship Specialty Start Date End Date Avi Yepez MD [address] [place] [facility] [address] PCP - General 05/05/24 Cell Builder Relationship Specialty Start Date End Date Avi Ypeez MD PCP - General 05/05/24 Cell Builder Relationship Specialty Start Date End Date Avi Yepez MD PCP - General 05/05/24 Cell Builder Relationship Specialty Start Date End Date Avi Yepez MD [address] [place] [address] PCP - General Family Medicine 06/17/25 Goals (unrecognized section and content) Goals may [...] or prosecute any alcohol or drug abuse patient.[facility] the event this information is protected by the Federal Confidentiality of Alcohol and Drug Abuse Patient Records regulations: The Federal rules restrict any use of the information to criminally investigate or prosecute any alcohol or drug abuse patient.[facility] the event this information is protected by the Federal Confidentiality of Alcohol and Drug Abuse Patient Records regulations: The Federal rules restrict any use of the information to criminally investigate or prosecute any alcohol or drug abuse patient.[facility] the event this information is protected by the Federal Confidentiality of Alcohol and Drug Abuse Patient Records regulations: The Federal rules restrict any use of the information to criminally investigate or prosecute any alcohol or drug abuse patient.[facility] the event this information is protected by the Federal Confidentiality of Alcohol and Drug Abuse Patient Records regulations: The Federal rules restrict any use of the information to criminally investigate or prosecute any alcohol or drug abuse patient.[facility] the event this information is protected by the Federal Confidentiality of Alcohol and Drug Abuse Patient Records regulations: The Federal rules restrict any use of the information to criminally investigate or prosecute any alcohol or drug abuse patient.[facility] Reason for Visit (unrecogniz ed section and content) Reason Comments New Patient Reason Comments Preparations For Procedures Pre-injectio n instructions Reason Comments Low Back Pain New Patient Evaluation Reason Comments Pain Post-op Reason Comments Pain Reason Comments Pain Specialty Diagnoses / Procedures Referred By Contac t Referred To Contact Physical Therapy Diagnoses Internal derangement of left knee Procedures [place] OFFICE/OUTPATIENT NEW [facility] 60 MINUTES Car Cuellar, ANKITA [address] [place] [address] Maria E Peck, EFRA Referral ID Status Reason Start Date Expiration Date Visits Requested Visits Authorized [id number] Authorized Consult and Treat 07/01/2024 12/28/2024 60 [...] BE BASED ON THE PRIMARY CLINICAL RECORDS. [facility] provides no warranty or guarantee of the accuracy or completeness of information in this document.
[2025-07-04 11:23] VITALS: BP 143/98; PULSE 67; TEMP 36.4; O2SAT 96
[2025-07-04 12:15] VITALS: BP 141/81; PULSE 71; O2SAT 96
[2025-07-04 12:16] VITALS: BP 148/83; PULSE 67; O2SAT 94
[2025-07-04] MEDS: BUPIVACAINE HCL 0.25% PF 25 MG/10 ML VIAL 8 ML INJ (12:18)
[2025-07-04] MEDS: LIDOCAINE HCL 2% 400 MG/20 ML MDV INJ (12:18)
--- NOTE | 2025-07-04 12:21 | W.PM.PROCNOT ---
Date of procedure: 07/04/25 Pre-op diagnosis: Pain due to lumbar spondylosis without myelopathy Post-op diagnosis: same as pre-op Procedure: Procedure: Bilateral L4-5, L5-S1 medial branch block Medications: Bupivacaine 0.25% 6cc The patient was seen and examined in the preoperative holding area.? An informed consent was obtained and placed on the chart.? The patient was brought to the medical procedure unit and placed in the prone position.? A timeout was completed verifying correct patient, procedure site, positioning, plan, and special equipment.? Using aseptic technique, the needle was placed at left L4. Under direct fluoroscopic visualization a Quincke-tipped spinal needle was advanced to the junction of the superior articulating process with the transverse process at the designated medial branch segment.? Preceded by negative aspiration, the above-mentioned injectate was placed in 1 mL aliquots.? The procedure was repeated at left L5, S1.? The needle was removed and insertion site was covered. The same procedure, at the same levels, was completed on the right side. The patient was taken to the postprocedural recovery area and monitored for an appropriate length of time before found suitable for discharge in the company of a responsible adult. Anesthesia: Local Surgeon: Evelyne Polk Pathology: none sent Condition: stable Disposition: no change
--- NOTE | 2025-07-04 12:26 | PC.NURSE ---
1225 pt d/c pain level 2/10
== END 2025-07-04 12:25 | disposition home or self-care (01) ==
LOC: SURGOUT 11:08
PROVIDERS: PCP Family Medicine; Visit Provider Anesthesiology
DX: M47.816 Spondylosis without myelopathy or radiculopathy, lumbar region (principal); M54.50 Low back pain, unspecified
CPT/HCPCS: 64493; 64494; J0665

== ENCOUNTER 2025-07-06 07:54 | Outpatient (OUT) | payer OTHER, SELFPAY ==
--- OUTSIDE RECORDS SUMMARY | 2021-01-13 07:00 | XMS_ITS | Continuity of Care Document ---
Author Organization [facility] Address [address] [place] [address] Phone Care Team Providers Care Cone Former Name Role Phone Severiano Martin Unavailable Unavailable Procedures Procedure Date Pfizer COVID Vaccine Admin Dose 2 COVID-19 Pfizer Pfizer COVID Vaccine Admin Dose 1 COVID-19 Pfizer Advance Directives Directive Yes / No Effective Date File Name No Information Encounters Encounter Description Practice Location Reason(s) For Visit Diagnoses Date Provider Providers Copied on Encounter [facility], [address] [place], [place], [id number], [place] tel:[phone] COVID ECHD No Information Radha Man. [address] [place], [place], [id number], [place]. tel:[phone] [facility], [address] [place] [address], [id number], tel:[phone] COVID ECHD No Information Radha Man. [address] [place], [place], [id number], [place]. tel:[phone] Family History Family Member Type Diagnosis Age At Onset No Information Immunizations Vaccine Date Status Comments Pfizer COVID administered Source: New Imm unization Record Pfizer COVID administered Source: New Imm unization Record Payers Payer name Insurance type Covered green party ID Authoriza tion(s) Aetna CI [id number] Aetna CI [id number] Aetna CI [id number] Social History Type Description Quantity Date Captured [...]
--- OUTSIDE RECORDS SUMMARY | 2025-02-17 05:16 | XMS_ITS ---
Author Organization [facility] in [place] Address [address] [place] [address] Care Team Providers Care Operations Research Director Name Role Phone Del Cervantes Primary Care Provider REASON FOR VISIT pain Medications Medication SIG (Take, Route, Frequency, Duration) Notes Start Date End Date Status HYDROcodone-Acetaminophen 5-325 MG 1 tablet as needed - max sdose 2/day Orally every 6 hrs PRN 02/17/2025 Active Encounters Encounter Location Date Provider Diagnosis [facility], [place] [address] [place] [address] 02/17/2025 Del Cervantes Benign essential hypertension I10 Assessments Encounter Date Diagnosis (ICD Code) Assessment Notes Treatment Notes Treatment Clinical Notes Section Notes 02/17/2025 Benign essential hypertension (ICD-10 - I10) Plan Of Treatment Medication Medication Name Sig Start Date Stop Date Notes HYDROcodone-Acetaminophen 5- 325 MG 1 tablet as needed - max sdose 2/day Orally every 6 hrs 02/17/2025 PRN Next Appt Details Provider Name:Del Cervantes, 10:30:00 AM, [address] [place], [address], Progress Notes * Harrison NICHOLSDOB:1959 (64 yo M)Acc No.[id number]:02/17/2025 Patient: Harrison ORLAND :1960 A ge:64 Y S ex:Male Address:[address] [place] [address], [facility] [address] * Refills Refill HYDROcodone-Acetaminophen Tablet, 5-325 MG, Orally, 20, 1 tablet as needed - max sdose 2/day, every 6 hrs, Refills=0 * true * Date: Generated for Artur pradhan/Joshua/William on: 0 07/06/2025 07:56 AM EDT
--- OUTSIDE RECORDS SUMMARY | 2025-04-11 06:45 | XMS_ITS ---
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 Ordering Physician: Avi Yepez M.D. Date of Service: 04/21/25 Procedure(s): XR thoracic spine 3V Accession Number(s): [id number] cc: Avi Yepez M.D. [place] [address] Patient Name: KIM NICHOLS MRN: [facility]:[id number] date: 1960 Sex: M Assigned Patient Location: LAB Current Patient Location: LAB Accession/Order Number: [id number] Exam Date: 04/21/2025 08:46 Report Date: 04/21/2025 [...] Ellis M.D. 04/21/2025 8:48 AM Dictation Location: [place] [address] Electronically authenticated by: [id number] Y Date: 04/21/2025 08:48 Dictated By: Stacy Ellis M.D. Signed By: 04/21/25 0850 DD/ 0848 TD/TT: Ese Teacher: [place] [address] XRay Report Signed Patient: KIM NICHOLS MR#: [id number] : 1960 Acct:[id number] Age/Sex: 64 / M ADM Date: 04/21/25 Loc: LAB Attending Dr: Avi Yepez M.D. Ordering Physician: Avi Yepez M.D. Date of Service: 04/21/25 Procedure(s): XR tho racic spine 3V Accession Number(s): [id number] cc: Avi Yepez M.D. [address] [address] Patient Name: KIM NICHOLS MRN: [facility]:[id number] date: 1960 Sex: M Assigned Patient Location: LAB Current Patient Location: LAB Accession/Order Numb er: [id number] Exam Date: 04/21/2025 08:46 Report Date: 04/21/2025 [...] Ellis M.D. 04/21/2025 8:48 AM Dictation Location: [place] [address] Electronically authe nticated by: [id number] Y Date: 04/21/2025 08:48 Dictated By: Stacy Ellis M.D. Signed By: 04/21/25 0850 DD/ TD/TT: Ese Teacher: REASON FOR VISIT Presents to office alone [...] Status Risk Notes Problem Osteoarthritis of knee (121053893) Knee osteoarthritis (M17.10) Active confirmed Vital Signs Weight 264.8 lbs 04/11/2025 Height 70 in 04/11/2025 Blood pressure systolic 116 mm Hg 04/11/20 25 Blood pressure diastolic 68 mm Hg 025 BMI 37.99 kg/m2 04/11/2025 Encounters Encounter Location Date Provider Diagnosis [facility] [address] [place] [address] 04/11/2025 Del Hoy Knee osteoarthritis M17.10 ; [...] Provider Name:Del Yepez, 10:30:00 AM, [address] [place], [address], Progress Notes * Kim NICHOLSDOB:1959 (64 yo M)Acc No.[id number]:04/11/2025 Progress Note Patient: Suyapa MCLAUGHLIN Kim Arthur Provider: Tamara Yepez ([facility])MD :1960 A ge:64 Y S ex:Male Date:04/11/2025 Address:[address] [place], [place] [address] Check In:10:24 AM ESTCheck O ut:11:22 AM [...] osteoarthritis - M17.10 (Primary) 2 . W [facility] adult - Z00.00 ? 3 . T horacic back pain - M54.6 Plan: * Treatment: 2. W [facility] adult L AB: HEMOGLOBIN A1C (GLYCO) L AB: INSULIN, TOTAL L AB: LIPID PANEL (CHOL/TRIG/HDL/LDL) L AB: THYROID PANEL (T4/TSH/FREE T3) L AB: PSA, SCREENING L AB: CMP (COMP MET ELY) w/eGFR CKD-EPI L AB: CBC WITH DIFF 3. T horacic back pain I maging: XR thoracic spine 3V * Procedure Codes: * Preventive Medicine: Screenings/Counseling: B SC ACTION PLAN Above Normal BMI Follow-up D ietary management education, guidance, and counseling See treatment section of progress note for complete details of management plan. * * Sign off status: Completed Visit Status: C HK (Check Out) true * Provider: Tamara Yepez ([facility])MD Date: 0 04/11/2025 Generated for Printi ng/Faxing/eTransmitting on: 0 07/06/2025 07:57 AM EDT History and Physical Notes * [...]
--- OUTSIDE RECORDS SUMMARY | 2025-04-21 15:33 | XMS_ITS ---
Author Organization The [facility] in [place] Address [address] [place] [address] Care Team Providers Care Ibm Bpm Architect Name Role Phone Del Cervantes Primary Care Provider [phone] REASON FOR VISIT Lab Results Encounters Encounter Location Date Provider Diagnosis [facility] [address] [place] [address] 04/21/2025 Del Cervantes Elevated bilirubin R 17 Assessments Encounter Date Diagnosis (ICD Code) Assessment Notes Treatment Notes Treatment Clinical Notes Section Notes 04/21/2025 Elevated bilirubin (ICD-10 - R17) Plan Of Treatment Pending Test Test Name Order Date PROF 14(COMP METB) 04/21/2025 Next Appt Details Provider Name:Del Cervantes, 10:30:00 AM, [address] [place], [address], Progress Notes * Harrison NICHOLSDOB:1959 (64 yo M)Acc No.[id number]:04/21/2025 Patient: Suyapa Harrison MCLAUGHLIN :1960 A ge:64 Y S ex:Male Address:[address] [place] [address] Subjective: * Chief Complaints: * L ab [...]
--- OUTSIDE RECORDS SUMMARY | 2025-05-12 07:11 | XMS_ITS ---
Author Organization The [facility] in [place] Address [address] [place] [address] Care Team Providers Care Assistant Plant Manager Name Role Phone Del Cervantes Primary Care Provider REASON FOR VISIT [place], back/knee pain Medications Medication SIG (Take, Route, Frequency, Duration) Notes Start Date End Date Status HYDROcodone-Acetaminophen 5-325 MG 1 tablet as needed Orally every 6 hrs for 14 days 05/12/2025 Active Encounters Encounter Location Date Provider Diagnosis [facility] [address] [place] [address] 05/12/2025 Del Cervantes Knee osteoarthritis M17.10 Assessments [...] Provider Name:Del Cervantes, 10:30:00 AM, [address] [place], [address], Progress Notes * Harrison NICHOLSDOB:1959 (64 yo M)Acc No.[id number]:05/12/2025 Patient: Harrison ROLAND :1960 A ge:64 Y S ex:Male Address:[address] [place] [address], [place] [address] * Refills Refill HYDROcodone-Acetaminophen Tablet, 5-325 MG, Orally, 56 Tablet, 1 tablet as needed, every 6 hrs, 14 days, Refills=0 * true * Date: Generated for Artur pradhan/Joshua/William on: 0 07/06/2025 07:57 AM EDT
--- OUTSIDE RECORDS SUMMARY | 2025-06-20 10:11 | XMS_ITS ---
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 Qualified Name Role Phone Del Cervantes Primary Care Provider REASON FOR VISIT refill Medications Medication SIG (Take, Route, Frequency, Duration) Notes Start Date End Date Status HYDROcodone-Acetaminophen 5-325 MG 1 tablet as needed Orally every 6 hrs for 14 days 06/20/2025 Active Encounters Encounter Location Date Provider Diagnosis [facility] [address] [place] [address] 06/20/2025 Del Cervantes Knee osteoarthritis M17.10 Assessments Encounter Date Diagnosis (ICD Code) Assessment Notes Treatment Notes Treatment Clinical Notes Section Notes 06/20/2025 Knee osteoarthritis (ICD-10 - M17.10) Plan Of Treatment Medication Medication Name Sig Start Date Stop Date Notes HYDROcodone-Acetaminophen 5- 325 MG 1 tablet as needed Orally every 6 hrs for 14 days 06/20/2025 Next Appt Details Provider Name:Del Cervantes, 10:30:00 AM, [address] [place], [address], Progress Notes * Harrison NICHOLSDOB:1959 (64 yo M)Acc No.[id number]:06/20/2025 Patient: Harrison ROLAND :1960 A ge:64 Y S ex:Male Address:[address] [place] [address], [place] [address] * Refills Refill HYDROcodone-Acetaminophen Tablet, 5-325 MG, Orally, 56 Tablet, 1 tablet as needed, every 6 hrs, 14 days, Refills=0 * true * Date: Generated for Artur pradhan/Joshua/Yaynitting on: 0 07/06/2025 07:56 AM EDT
--- OUTSIDE RECORDS SUMMARY | 2025-07-06 07:56 | XMS_ITS | Encounter Summary ---
Author Organization [facility] Address [address] [place] [address] Phone Care Team Providers Care Emergency Room Registered Nurse Name Role Phone Jason Cervantes MD Primary Care Provider [phone] Encounter Details Date Type Department Care Team (Late st Contact Info) Description 04/20/2019 Orders Only [facility] LE[facility] [address] [place] [address] Conversion, Onbase Social History Tobacco Use Types [...] on filedocumented in this encounter Care Teams Emergency Room Registered Nurse Relationship Specialty Start Date End Date Jason Cervantes MD [address] [facility] [address] PCP - General 05/07/22 documented as of this encounter
--- OUTSIDE RECORDS SUMMARY | 2025-07-06 07:56 | XMS_ITS | Clinical Summary ---
Author Organization [facility] Address [address] [place] [address] Care Team Providers Care Email Deployment Specialist Name Role Phone Jason Cervantes MD Primary Care Provider [phone] Allergies Active Allergy Reactions Criticality Noted Date [...] Encounters Date Type Department Care Team Description 06/17/2025 Bamboo flowsheet [facility] [address] [place] [address] Justen Cuellar PA 06/17/2025 Travel 06/10/2025 Travel 04/20/2025 8:30 AM EDT [facility] [address] [facility] [address] [place] [address] Jr. Landon Thomas, Acute pain of left knee (Primary Dx); Arthritis of left knee 04/20/2025 [facility] [address] [facility] [address] [place] [address] Jr. Landon Thomas, 04/20/2025 Travel 04/17/2025 Travel from Last 3 Months Family History [...] Care Team (Late st Contact Info) Description 07/14/2025 9:00 AM EDT Office Visit [facility] [address] [facility] [address] [place] [address] Justen Cuellar, ANKITA [address] [place] [address] Health Maintenance Due Date Last Done Comments CT Colonography 1960 FIT-DNA 1960 FIT 1960 FOBT 1960 Sigmoidoscopy 1960 Influenza Vaccine (#1) 2025 , 09/12/2023, 10/03/2022, Additional history exists Colonoscopy 08/25/2034 08/25/2024, 07/29, 07/02/2019, Additional history exists Colorectal Cancer Screening 08/25/2034 Procedures Procedure Name Priority Date/Time Associated Diagnosis Comments COLONOSCOPY Routine 07/02/2019 12:00 PM EDT from Last 3 Months or Most Recently Relevant to Health Maintenance Results * Colonoscopy (07/02/2019 12:00 PM EDT) Anatomical Region Laterality Modality Endoscopy 07/02/2019 12:0 0 PM EDT Narrative 07/02/2019 12:00 PM EDT PERFORMED AT [facility] LOCATION:[id number] Procedure Note CONVERSION, GENERIC - 03/12/2023 PERFORMED AT [facility] LOCATION:[id number] us Severiano Allison MD ENDOSCOPY PROCEDURE ORDERABL ES Final Result from Last 3 Months or Most Recently Relevant to Health Maintenance Insurance AETNA [facility] Address: [facility] [id number] [place] [address] Care Teams Email Deployment Specialist Relationship Specialty Start Date End Date Jason Cervantes MD [address] [place] [address] PCP - General Family Medicine 06/17/25
--- OUTSIDE RECORDS SUMMARY | 2025-07-06 07:57 | XMS_ITS | Patient Health Record ---
Author Organization [facility] Address [address] [place] [address] Care Team Providers Care Rhic Systems Safety Engineer Name Role Phone Del Yepez Primary Care Provider [phone] Elis Salcedo Unavailable [phone] Allergies Allergen (clinical drug ingredient) Drug/Non Drug Allergy documented on EMR Reaction Allergy Type Onset Date Status amoxicillin Amoxicillin hives Drug Allergy Act kriss Results Component Value Reference Range Notes CBC AUTO DIFF Reviewed date:07/11/2024 11:24:42 AM Interpretation: Performing Lab: Notes/Report: [facility] , White Blood Count 6.4 4.0-11.0 10 [...] 10 3/uL Performing Lab: see note - [facility] GLYCOHEMOGLOBIN A1C Reviewed date:04/21/2025 07:35:49 PM Interpretation: Performing Lab: Notes/Report: [facility] , Glycohemoglobin A1C 5.5 4.5-6.2 % ADA RECOMMENDED LIMIT 4.0 - 6.0 ADA THERAPEUTIC TARGET < 7.0 > 7.0 ACTION SUGGESTED Estimated Average Glucose 111 Performing Lab: see note - [facility] INSULIN Reviewed date:04/24/2025 03:02:25 PM Interpretation: Performing Lab: Notes/Report: [facility] , Insulin 20.8 2.6-24.9 uIU/mL [address] [place], [place] [id number] Dependency Director: Adam Byers PhD, Phone: [phone] Performed at: [facility] Performing Lab: see note - [facility] LB XR thoracic spine 3V Reviewed date:04/21/2025 07:35:49 PM Interpretation: Performing Lab: Notes/Report: Source Facility: [place] [address] XRay Report Signed Patient: KIM NICHOLS MR#: [id number] : 1960 Acct:[id number] Age/Sex: 64 / M ADM Date: 04/21/25 Loc: LAB Attending Dr: Avi Yepez M.D. Ordering Physician: Avi Yepez M.D. Date of Service: 04/21/25 Procedure(s): XR thoracic spine 3V Accession Number(s): [id number] cc: Avi Yepez M.D. [address] [address] Patient Name: KIM NICHOLS MRN: [id number] date: 1960 Sex: M Assigned Patient Location: LAB Current Patient Location: LAB Accession/Order Number: [id number] Exam Date: 04/21/2025 08:46 Report Date: 04/21/2025 [...] Ellis M.D. 04/21/2025 8:48 AM Dictation Location: [place] [address] Electronically authenticated by: [id number] Y Date: 04/21/2025 08:48 Dictated By: Stacy Ellis M.D. Signed By: 04/21/25 0850 DD/ TD/TT: Nightclub Manager: [place] [address] XRay Report Signed Patient: KIM NICHOLS MR#: [id number] : 1960 Acct:[id number] Age/Sex: 64 / M ADM Date: 04/21/25 Loc: LAB Attending Dr: Puja Yepez M.D. Ordering Physician: Avi Yepez M.D. Date of Service: 04/21/25 Procedure(s): XR thoracic spine 3V Accession Number(s): [id number] cc: Avi Yepez M.D. [address] [id number] Patient Name: KIM NICHOLS MRN: [id number] date: 1960 Sex: M Assigned Patient Location: LAB Current Patient Location: LAB Accession/Order Divya er: [id number] Exam Date: 04/21/2025 08:46 Report Date: 04/21/2025 [...] are no paraspinal so ft tissue abnormalities. XR/XR thoracic spine 3V IMPRESSION: SUBTLE SCOLIOTIC CURVATURE AND DEGENERATIVE CHANGES. NO ACUTE BONY FINDINGS. Impression dictated by: Stacy Ellis M.D. 04/21/2025 8:48 AM Dictation Location: [place] [address] Electronically authenticated by: [id number] Y Date: 04/21/2025 08:48 Dictated By: Stacy Ellis M.D. Signed By: 04/21/25 0850 DD/ 0848 TD/TT: Nightclub Manager: TSH Reviewed date:04/21/2025 07:35:49 PM Interpretation: Performing Lab: Notes/Report: [facility] , Thyroid Stimulating Hormone 1.589 0.358-3.740 uIU/mL Performing Lab: see note - [facility] LB T4 Reviewed date:04/21/2025 07:35:49 PM Interpretation: Performing Lab: Notes/Report: [facility] , T4 Thyroxine 8.50 4.50-12.10 ug/dL Performing Lab: see note - [facility] LB PSA SCREENING Reviewed date:04/21/2025 07:35:49 PM Interpretation: Performing Lab: Notes/Report: [facility] , Prostate Specific Antigen Scrn 1.36 <=4.00 ng/mL Performing Lab: see note - [facility] LB PROF 14(COMP METB) Reviewed date:04/21/2025 07:35:49 PM Interpretation: Performing Lab: Notes/Report: [facility] , Sodium 138 136-145 mmol/L Potassium 3.3 [...] Globulin Ratio 1.0 Performing Lab: see note ML - [facility] LB LIPID PROFILE Reviewed date:04/21/2025 07:35:49 PM Interpretation: Performing Lab: Notes/Report: [facility] , Triglycerides 86 <=150 mg/dL Cholesterol 175 <=200 mg/dL HDL Cholesterol 50 40-60 mg/dL <40 mg/dl - HIGH CARDIOVASCULAR RISK > or =60 mg/dl - LOW CARDIOVASCULAR RISK LDL Cholesterol Calculated 107.8 >190 mg/dl VERY HIGH 130-159 mg/dl BORDERLINE HIGH 100-129 mg/dl NEAR OR ABOVE OPTIMAL 160-189 mg/dl HIGH <100 mg/dl OPTIMAL VLDL CHOLESTEROL 17.2 Chol HDL Ratio 3.5 >11.0 HIGH RISK 3.3 - 4.4 LOW RISK 7.1 - 11.0 MODERATE RISK 4.4 - 7.1 AVERAGE RISK Performing Lab: see note ML - [facility] FREE T3 Reviewed date:04/21/2025 07:35:49 PM Interpretation: Performing Lab: Notes/Report: [facility] , Free T3 2.64 2.18-3.98 pg/mL Performing Lab: see note ML - [facility] LB CBC AUTO DIFF Reviewed date:04/21/2025 07:35:49 PM Interpretation: Performing Lab: Notes/Report: [facility] , White Blood Count 6.4 4.0-11.0 10 [...] Performing Lab: see note ML - [facility] LB Reason For Referral Diagnosis 1 Chronic midline low back pain without sciatica (M54.50) Referral Organization [facility] Referring Provider First Name Del Referring Provider Last Name Giannisvetlana Referring Provider Speciality Family Med icine Referred [...] 6 hrs for 14 days 06/20/2025 Active HYDROcodone-Acetaminop hen 5-325 MG 1 tablet [...] Once a day for 7 days Active Eliquis 5 MG TAKE 1 TABLET BY MOUTH TWICE A DAY for 90 Active Luzu 1 % 1 application to [...] Notes Problem Gastro-esophageal reflux disease without esophagitis (740691634) Gastro-esophageal reflux disease without esophagitis (K21.9) Active confirmed Problem Osteoarthritis of knee (204911370) Unilateral primary osteoarthritis, left knee (M17.12) Active confirmed Problem 74835611 Other intervertebral disc displacement, lumbosacral region (M51.27) Active confirmed Problem 947758070 Other specified symptoms and signs involving the circulatory and respiratory systems (R09.89) Active confirmed Problem Chest pain (73608804) Chest pain (R07.9) Active confirmed Problem Atrial fibrillation (94327688) Atrial fibrillation (I48.91) Active confirmed Problem History of cholecystectomy (915919240) History of cholecystectomy (Z90.49) Active confirmed Problem Osteoarthritis of knee (279865633) Knee osteoarthritis (M17.9) Active confirmed Problem Migraine (62446663) Migraine (G43.909) Active confirmed Problem Benign essential hypertension (5489321) Benign essential hypertension (I10) Active confirmed Problem Lumbar radiculopathy (351478021) Lumbar radiculopathy (M54.16) Active confirmed Problem Acute sinusitis (90883118) Acute sinusitis (J01.90) Active confirmed Problem Well adult (563391145) Well adult (Z00.00) Active confirmed Problem Erectile dysfunction (disorder) (118086956) Impotence (N52.9) Active confirmed Problem Willis cyst, 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) Active confirmed Problem Body mass index 40+ - morbidly obese (963386242) BMI 40.0-44.9, adult (Z68.41) Active confirmed Problem Atrial fibrillation (02762018) New onset a-fib (I48.91) Active confirmed Problem 858710060 Spinal stenosis, lumbar region without neurogenic claudication (M48.061) Active confirmed Problem Osteoarthritis of knee (654902863) Knee osteoarthritis (M17.10) Active confirmed Problem Dyspnea on exertion (99740462) MILIAN (dyspnea on exertion) (R06.00) Active confirmed Problem Chronic low back pain (finding) (689456051) Chronic midline low back pain without sciatica (M54.50) Active confirmed Vital Signs Heart Rate 76 /min 10/07/2024 Temperature 98 degrees Fahrenheit 10/07/2024 Respiratory Rate 16 /min 10/07/2024 Oximetry 98 % 10/07/2024 Blood pressure diastolic 68 mm Hg 04/11/2025 Height 70 in 04/11/2025 Blood pressure systolic 116 mm Hg 04/11/2025 Weight 264.8 lbs 04/11/2025 BMI 37.99 kg/m2 04/11/2025 Encounters Encounter Location Date Provider Diagnosis [facility] [address] [place] [address] 10/04/2024 Del Hoy Benign essential hypertension I10 [facility] (PODIATRY) [address] [place] [address] [place] [address] 10/12/2024 Elis Salcedo [facility] [address] [place] [facility] [place] [place] [address] 02/17/2025 Del Hoy Benign essential hypertension I10 [facility] [address] [facility] [address] 04/21/2025 Del Hoy Elevated bilirubin R17 [facility] [address] [facility] [address] 05/12/2025 Del Hoy Knee osteoarthritis M17.10 [facility] [address] [place] [facility] [place] [address] 06/20/2025 Del Hoy Knee osteoarthritis M17.10 [facility] (PODIATRY) [address] [place] [address] [place] [address] 10/07/2024 Elis Salcedo Tinea pedis B35.3 [facility] [address] [facility] [address] 09/10/2024 Del Hoy Benign essential hypertension I10 ; Well adult Z00.00 and Chest pain R07.9 [facility] [address] [facility] [address] 12/07/2024 Del Hoy Benign essential hypertension I10 ; Chronic midline low back pain without sciatica M54.50 and Atrial fibrillation I48.91 [facility] [address] [facility] [address] 04/11/2025 Del Hoy Knee osteoarthritis M17.10 ; [...] symptoms recurred.Prior to that he tried several vlto-qto-szyaxiy remedies which failed to provide relief in [...] back pain without sciatica (ICD-10 - M54.50) 04/11/2025 Knee osteoarthritis (ICD-10 - M17.10) neecs new on 0 nees pain meds due to new knee 04/11/2025 Thoracic back pain (ICD-10 - M54.6) 04/11/2025 Well adult (ICD-10 - Z00.00) 10/04/2024 Benign essential hypertension (ICD-10 - I10) 02/17/2025 Benign essential hypertension (ICD-10 - I10) 04/21/2025 Elevated bilirubin (ICD-10 - R17) 05/12/2025 Knee osteoarthritis (ICD-10 - M17.10) 06/20/2025 Knee osteoarthritis (ICD-10 - M17.10) 12/07/2024 Atrial fibrillation (ICD-10 - I48.91) 09/10/2024 Chest pain (ICD-10 - R07.9) Plan Of Treatment Pending Test Test Name [...] DIFF 04/11/2025 Next Appt Details Provider Name:Del Lauren Yepez, 10:30:00 AM, [address] [place], [address], Insurance Providers Payer Name Payer Address Payer Phone Subscriber Number Group Number Insured Name Patient Relationship to Insured Coverage Start Date Coverage End Date AET[employer] [facility] [address] [place] [address] [id number] Stella Nichols Spouse - patient is the [...] essential hypertension I10 Surgical History Surgery Date(Month/Year) Septal Plasty Laproscopic Gall Bladder Removal Right Knee Scope 07/29/24 EGD with biopsy of gastric polyp and col onoscopy to cecum 08/25/2024 L4-5, L5-S1 Medial Branch Block- Dr Rao 07/04/25 Hospitalization History Reason Date(Month/Year) see above
--- OUTSIDE RECORDS SUMMARY | 2025-07-06 07:57 | XMS_ITS | Encounter Summary ---
Author Organization [facility] Address [address] [place] [address] Phone Care Team Providers Care Engine Designer Name Role Phone Jason Cervantes MD Primary Care Provider [phone] Encounter Details Date Type Department Care Team (Late st Contact Info) Description 12/20/2021 Orders Only [facility] [address] [place] [address] Conversion, Onbase Social History Tobacco Use Types [...] on filedocumented in this encounter Care Teams Engine Designer Relationship Specialty Start Date End Date Jason Cervantes MD [address] [place] [address] PCP - General 05/07/22 documented as of this encounter
--- OUTSIDE RECORDS SUMMARY | 2025-07-06 07:57 | XMS_ITS | Encounter Summary ---
Author Organization [facility] Address [address] [place] [address] Phone Care Team Providers Care Forming Department End Finder Name Role Phone Jason Cervantes MD Primary Care Provider [phone] Reason for Visit * Reason Comments Med Refill Encounter Details Date Type Department Care Team ([facility] st Contact Info) Description 06/21/2025 Refill [facility] [address] [facility] [address] [place] [address] Carlota Walker MD [address] [facility] [address] [place] [address] Hyperlipidemia, unspecified Social History Tobacco Use Types Packs/Day Years Used Date Smoking Tobacco: Never Assessed Sex and Gender Information Value Date Recorded Sex Assigned at Not on file Legal Sex Male 4:21 PM EST Gender Identity Not on file Sexual Orientation Not on file documented as of this encounter Plan of Treatment Not on file documented as of this encounter Visit Diagnoses Diagnosis Hyperlipidemia, unspecified documented in this encounter Care Teams Forming Department End Finder Relationship Specialty Start Date End Date Jason Cervantes MD [address] [facility] [address] [place] [id number] PCP - General 05/07/22 documented as of this encounter
--- OUTSIDE RECORDS SUMMARY | 2025-07-06 07:57 | XMS_ITS | Clinical Summary ---
Author Organization [facility] Address [address] [place] [address] Care Team Providers Care Human Service Specialist Name Role Phone Jason Cervantes MD Unavailable [phone] Jason Cervantes MD Primary Care Provider [phone] Allergies Active Allergy Reactions Criticality Noted Date [...] original vaccine, a ge 12+ yr, monovalent (Fishidy - PURPLE TOP) 09/03/2021,02/13/2021,01/13/2021,2020 COVID-19 original vaccine, [...] is lower risk 4 06/02/2023 Data from: https://www.neighborhoodatlas.medicine.[facility]/. Last address used for calculation [address] 06/02/2023 Sex and Gender Information Value [...] 1-dose 75+ series) 2036 Insurance Care Teams Human Service Specialist Relationship Specialty Start Date End Date Jason Cervantes MD [address] [place] [address] PCP - General Family Medicine 06/25/23 Jason Cervantes MD [address] [place] [address] Referring Family Medicine 04/24/23
--- OUTSIDE RECORDS SUMMARY | 2025-07-06 07:57 | XMS_ITS | Encounter Summary ---
Author Organization [facility] Address [address] [place] [address] Phone Care Team Providers Care Instrumentation And Control Technician Name Role Phone Jason Cervantes MD Primary Care Provider [phone] Encounter Details Date Type Department Care Team (Late st Contact Info) Description 09/26/2020 Orders Only [email or web address] LEGACY [address] [place] [address] Conversion, Onbase Social History Tobacco Use Types [...] on filedocumented in this encounter Care Teams Instrumentation And Control Technician Relationship Specialty Start Date End Date Jason Cervantes MD [address] [place], [place] [phone] PCP - General 05/07/22 documented as of this encounter
--- OUTSIDE RECORDS SUMMARY | 2025-07-06 07:57 | XMS_ITS | Clinical Summary ---
Author Organization [facility] Address [address] [place] [place] [address] Care Team Providers Care Supervisor Soakers Name Role Phone Jason Cervantes MD Primary Care Provider [phone] Allergies Active Allergy Reactions Criticality Noted Date [...] in the morning. 12/27/2024 Active HYDROcodone-sunshine taminophen ([place]) 5-325 mg tablet Take 1 tablet by [...] Adult Tetanus 1983 COVID-19 Vaccine ( season) 2025 09/03/2024, 09/12/2023, 10/14/2022, Additional history exists Influenza [...] complete this topic Insurance [employer] Care Teams Supervisor Soakers Relationship Specialty Start Date End Date Jason Cervantes MD [address] [facility] [address] [address] PCP - General 09/09/24
--- OUTSIDE RECORDS SUMMARY | 2025-07-06 07:57 | XMS_ITS | Clinical Summary ---
Author Organization [facility] Address [address] [place] [address] Phone Care Team Providers Care Foam Caster Name Role Phone Jason Cervantes MD Primary Care Provider [phone] Allergies No known active allergies Medications rosuvastatin (Crestor) 20 mg tabletIndicatio ns:Hyperlipidem ia, unspecified TAKE 1 TABLET BY MOUTH EVERYDAY AT BEDTIME 90 tablet 3 06/23/20 25 Active rosuvastatin (Crestor) 20 mg tabletIndicatio ns:Hyperlipidem ia, unspecified TAKE 1 TABLET BY MOUTH EVERYDAY AT BEDTIME 90 tablet 3 06/23/20 24 025 Discontinued Encounters Date Type Department Care Team Description 06/21/2025 Refill [place] [id number] [address] [address] Carlota Walker MD Hyperlipidemia, unspecified from Last 3 Months Social History Tobacco Use Types Packs/Day Years [...] 1-dose series) 2021 COVID-19 Vaccine (2 - 2024-2 6 season) 2025 03/22/2022 Influenza Vaccine (#1) 2025 HIB Vaccines [...] age to complete this topic Care Teams Foam Caster Relationship Specialty Start Date End Date Jason Cervantes MD [address] [place] [address] PCP - General 05/07/22
--- OUTSIDE RECORDS SUMMARY | 2025-07-06 07:57 | XMS_ITS | CCD ---
Author Organization [facility] Care Team Providers Care Cable Swager Name Role Phone Unavailable Unavailable DR AVI [...] Unavailable Avi Yepez MD Primary Care Provider [phone] Avi Yepez MD Primary Care Provider [phone] CAR CUELLAR Attending Lacie THOMAS JR., ELIAS [...] Translations: [amoxicillin] Drug Allergy 0 Judith Beck [facility] (1 source) Amoxicillin Drug Allergy [facility] (1 source) traMADol Drug Allergy [facility] (3 sources) Penicillin; Translations: [penicillin] Drug Allergy Weal (disorder) [facility] [place] (20 sources) traMADol; Translations: [TRAMADOL] Drug Allergy 4 Unknown [facility] (1 source) Amoxicillin Drug Allergy 0 [facility] Repository Medications Current Medications Medication Drug Class(es) Dates Sig (Normalized) Sig (Original) acetaminophen 325 mg / HYDROcodone bitartrate 5 mg oral tablet (14 sources) Opioid Agonist Start: 07-08-2024 take 1 tablet by mouth twice daily as needed for pain [place] 325 mg-5 mg oral tablet 1 tab(s), Oral, BID as needed for pain, Refill(s) 0 Start Date: 07/08/24 Status: Ordered Start: 03-29-2024 End: 06-21-2024 take 1 tablet by mouth every twelve hours HYDROcodone-acetaminophen ([place]) 5-325 MG tablet Take 1 tablet by mouth every 12 (twelve) hours 03/29/2024 06/21/2024 Discontinued (Therapy completed) Start: 09-26-2020 End: 07-31-2024 take 1 tablet by mouth every six hours for pain HYDROcodone-acetaminophen ([place]) 5-325 MG tablet Indications: Post-op pain Take 1 tablet by mouth every 6 (six) hours if needed for severe pain for up to 3 days 12 tablet 07/28/2024 07/31/2024 Active [place] 5-325 MG T ABS TAKE 1 TABLET [...] [Coronary atherosclerosis of unspecified type of vessel, assiniboine and sioux or graft] Onset: 03-04-2025 07-08-2024 Chronic Diabetes [...] Range Facility Office Visiton 03-04-2025 Follow-up visit [id number] Kim Nichols 1960 M Date Provider Department Center 03/04/2025 [id number] MOHAMUD CARD [facility] Family History Problem Relation Age of Onset Brain Aneurysm Mother Stroke Father Heart attack Sister Family Status - Relation Status Age at Mother Father Sister Level of Service:11545 SD OFFICE/OUTPATIENT ESTABLISHED LOW MDM 20 MIN Reason for Visit and Comments: Coronary Artery Disease [187] - Denies SOB. Atrial Fibrillation [80] - On Eliquis, denies bleeding. Denies palpitations and syncope. Hyperlipidemia [182] - Had lipid panel in May 2024. On rosuvastatin. Hypertension [078273] Chest Pain [[id number]] - Intermittent, blames his hiatal hernia and back pain. Normal [facility] No Panel Informationon 02-18 ANKITA Stapleton 02/18/2025 [...] and draped in the usual sterile fashion. [facility] Office Visiton 09-09-2024 Follow-up visit [id number] Kim Nichols 1960 M Date Provider Department Center 09/09/2024 3848-RICHARD BENITEZ RAVIN [facility] Family History Problem Relation Age of Onset Brain Aneurysm Mother Stroke Father Heart attack Sister Family Status - Relation Status Age at Mother Father Sister Level of Service:33192 SD OFFICE/OUTPATIENT ESTABLISHED LOW MDM 20 MIN Normal [facility] Ambulatory Visit Summaryon 1 11-08-2023 Ambulatory Visit Summary Ambulatory Visit Summary KIM NICHOLS :1960 Visit Date:09/08/2024 Ambulatory Visit Instructions Your Care Team Attending Physician - SNOW LANDA, Rell Marr Primary Care Physician - Avi Yepez MD This Is Your Medications List acetaminophen-hydrocodone ([place] 325 mg-5 mg oral tablet) apixaban (Eliquis [...] What How Much When Instructions Unchanged acetaminophen-hydrocodone ([place] 325 mg-5 mg oral tablet) 1 Tablets [...] choosing us for your care. Fátima Caban [facility] General Surgery Office/Clini c Noteon [...] Tab, 25 mg= 1 tab(s), Oral, BID [place] 325 mg-5 mg oral tablet, 1 tab(s), [...] virus vaccine, inactivated 09/12/2023 Recorded SARS-CoV-2 (COVID-19) mRNAMUL.[id number] 10/14/2022 Recorded influenza virus vaccine, inactivated 10/03/2022 Recorded SARSCoV2 mRNA(enthcvlhm-citr-xcadbp) vac 03/22/2022 Recorded SARS-CoV-2 (COVID-19) mRNA BNT-162b2 vax 09/03/2021 Recorded influenza virus vaccine, inactivated 08/25/2021 Recorded SARS-CoV-2 (COVID-19) mRNA BNT-162b2 vax 02/13/2021 Recorded SARS-CoV-2 (COVID-19) mRNA BNT-162b2 vax 01/20/2021 Recorded SARS-CoV-2 (COVID-19) mRNA BNT-162b2 vax 01/13/2021 Recorded SARS-CoV-2 (COVID-19) mRNA BNT-162b2 vax 12/23/2020 Recorded influenza virus vaccine, inactivated 08/28/2020 Recorded Normal [facility] Comment on above: Result Comment: Elec tronically Signed By: SNOW LANDA, Rell Mccormick\Date and Time Signed: 09/08/24 16:32 EST Reminderson 08-26-2024 Reminders Reminders From: aMría Ayala LPN To: CHANDRAN - Clinical; Sent: 08/26/2024 11:53:39 EDT Show up: 07/26/2034 07:00:00 EDT Subject: colonoscopy recall Due Date/Time: 08/25/2034 07:00:00 EDT Reminder/Recall Patient due for screening colonoscopy 08/25/2034. Normal [facility] Pathology Request for Lab Co rpon 08-25-2024 Pathology Request for Lab Le Normal [facility] Comment on above: Order Comment: PATHO LOGY GI SPECIMEN Result Comment: See report. Scanned copy available in EMR. PERFORMED BY: [place] [id number] PATHOLOGIST PLANT AND INSTRUMENT ENGINEER MICHAEL LEMUS M.D. Performed By: #### P ATH TO [facility] #### [place] [id number] [facility] Ambulatory Visit Summaryon 0 07-20-2024 Ambulatory Visit [...] prescribing physician if questions or concerns acetaminophen-hydrocodone ([place] 325 mg-5 mg oral tablet) apixaban (Eliquis [...] What How Much When Instructions Unchanged acetaminophen-hydrocodone ([place] 325 mg-5 mg oral tablet) 1 Tablets [...] for choosing us for your care. Normal [facility] ALL CBC WITH AUTO DIFFon BASOPHILS ABSOLUTE AUTO 0.0 [facility] Healthcare Basophils/100 WBC (Bld) 0.5 % 0.2 - 2.0 % [facility] Eosinophils/100 WBC (Bld) 3.0 % 0.9 - 7.0 % [facility] Erythrocyte distribution width (RBC) [Ratio] 13.9 % 11.0 - 15.0 % [facility] Hematocrit (Bld) [Volume fraction] 46.2 % 42.0 - 54.0 % [facility] Hemoglobin (Bld) [Mass/Vol] 15.6 g/dL 14.0 - 18.0 g/dL [facility] IMMATURE GRANULOCYTES ABS AUTO 0.03 [facility] Immature granulocytes/100 WBC (Bld) 0.5 % 0.0 - 0.5 % [facility] LYMPHOCYTES ABSOLUTE AUTO 1.[address] [facility] Lymphocytes/100 WBC (Bld) 22.3 % 20.5 - 60.0 % [facility] MCH (RBC) [Entitic mass] 28.9 pg 25.9 - 34.[address] [facility] MCHC (RBC) [Mass/Vol] 33.8 g/dL 29.9 [...] Healthcare TB WBC 6.4 [facility] Healthcare Office Visiton 06-11-2024 Follow-up visit [id number] Kim Nichols 1960 M Date Provider Department Center 06/11/2024 3848-RICHARD BENITEZ [facility] Family History Problem Relation Age of Onset Brain Aneurysm Mother Stroke Father Heart attack Sister Family Status - Relation Status Age at Mother Father Sister Level of Service:16077 SD OFFICE/OUTPATIENT NEW MODERATE MDM 45 MINUTES Reason for Visit and Comments: New Patient [Other] - CHEST PAIN/AFIB Normal [facility] CNOVon 2023 CNOV Office Visit (SPSLUH ) KIM NICHOLS ([id number]) 1960 M Date Time Provider Department 08/04/23 [...] opioids Medications: See medication reconciliation list in [facility] MEDICATIONS: Gabapentin, [place], Tylenol Have you ever seen a pain [...] issues. 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 [facility] 07-08-2023 [facility] Telephone (SPNMMN) ESPERANZAKIM SEGURA ([id number]) 1960 M Date Time Provider Department 07/08/23 ZOË NIKOLAY G SPNMMN During your visit today, we recorded the following information about you: Stacy Gallagher RN 07/08/2023 12:56 PM Signed Post Spine Injection phone call: [phone] on 07/08/23 Patient denies fever, chills, new [...] appointment 2-4 weeks post procedure by calling [phone] Patient does not have any questions or [...] Status:Closed by STACY GALLAGHER on 07/08/23 Normal [facility] HISTORY PHYSICALon HISTORY PHYSICAL HNO ID: [id number] Author: Sherice Galvin APRN.CNP Service: ? Author [...] July 01, 2023 TIME: 9:04 AM Normal [facility] OPERATIVE NOon 07-01-2023 OPERATIVE NO HNO ID: [id number] Author: Nikolay Camp DO Service: Physical Medicine AND Rehabilitation Author Type: Physician Type: Operative Report Filed: 07/01/2023 9:40 AM Note Text: PROCEDURE REPORT Surgery/Procedure Date: July 01, 2023 Interventionalist: Nikolay Camp DO Procedure(s): Left L5 transforaminal epidural steroid injection Pre-Op/Pre-Procedure Diagnosis: Lumbar radiculopathy Post-Op Diagnosis: same SUBJECTIVE: Kim Nichols is a 62 year old male, who presents to the [facility] for a left L5 transforaminal epidural steroid injection. This is his first (1) procedure. 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 Pain is [...] home in stable condition. DO Fátima Castrejon [facility] Nina 06-26-2023 [facility] Telephone (SPNMMN) JESSIKIM ([id number]) 1960 M Date Time Provider Department 06/26/23 NIKOLAY CAMP SPNMMN During your visit today, we recorded the following information about you: Oscar RollinsHERNANDO 06/26/2023 9:20 AM Signed Phoned patient and message left for Kim to confirm appointment for Kim Nichols for spine procedure on 07/01/2023. Patient notified that [place] will call patient the night before with the time to arrive for injection. Patient verbalized understanding of the following: -Provided education on spine procedure and answered questions related to spine injection procedure. -Internal Communications Writer is needed to drive patient home. -NPO [...] to report. Diabetic: No Patient given number [phone], spine injections schedulers, if there is any [...] by OSCAR ROLLINS on 06/26/23 [facility] CNOVon 06-02-2023 CNOV Office Visit (SPNSMN ) KIM NICHOLS ([id number]) 1960 M Date Time Provider Department 06/02/23 1:40 PM DARREN ELIZABETH SPNSMN During your visit today, we recorded the following information about you: Pulse Respiration Blood pressure Weight 63/minute 18/minute 128/84 117 kg Height 1.829 m Darren Elizabeth APRN.MANAGER EDITORIAL 06/03/2023 1:01 PM Signed SPINE SURGERY OUTPATIENT [...] with him pain. He also is prescribed [place] for breakthrough pain which he only takes [...] well de (more content not included)... Normal [facility] Office Visit (Cardiology)on 05-13-2023 Follow-up visit Diagnoses/Problems Assessed Coronary disease (414.00) (I25.10) Essential hypertension, benign (401.1) (I10) Hyperlipidemia (272.4) (E78.5) Class 2 obesity with body mass index (BMI) of 36.0 to 36.9 in adult (278.00,V85.36) (E66.9,Z68.36) Never a smoker Orders Class 2 obesity with body mass index (BMI) of 36.0 to 36.9 in adult Healthy Weight Tips; Status:Complete - Retrospective Authorization; Done: [id number] Some eating tips that can help you lose weight.; Status:Complete - Retrospective Authorization; Done: [id number] Coronary disease, Hyperlipidemia Renew: Aspirin EC Low Dose 81 MG Oral Tablet Delayed Release; TAKE 1 TABLET DAILY DIRECTED Hyperlipidemia Renew: Rosuvastatin Calcium 20 MG Oral Tablet; take 1 tablet by mouth at bedtime SocHx: Never a smoker Tobacco Use Screening; Status:Complete; Done: [id number] Patient Instructions Please bring all medicines, vitamins, [...] MG Oral CapsuleTAKE 1 CAPSULE TWICE DAILY. [place] 5-325 MG TABSTAKE 1 TABLET EVERY 4 [...] negative for complaint. Vitals Vital Signs Recorded: [id number] 11:22AM Heart Rate64, R Radial Owydhddu645, RUE, Sitting Iddfyaygf65, RUE, Sitting Height6 ft Hggamq693 lb BMI Kgwxjjtxfu76.21 kg/m2 BSA Calculated2.41 Tobacco Useb) No PHQ-2 [...] no hep (more content not included)... Normal [employer] Tobacco Screening.on 023 Adult depression screening assessment No -[facility] [address] DO Work Phone: Tobacco use status CP b) No -[facility] [address] DO Work Phone: Tobacco Screening.on 022 Adult depression screening assessment No [facility] [address] DO Work Phone: Fall risk assessment c) Not medically indicated [facility] [facility] [place] Work Phone: Tobacco use status CPHS b) No -[facility] [address] DO Work Phone: H PYLORI ANTIBODY IGGon 11-28 H. PYLORI IGG ABS 0.45 Index Value Normal 0.00-0.79 [facility] Comment on above: Result Comment: Nega tive <0.80 Equivocal 0.80 - 0.89 Positive >0.89 Performed By: #### L IPID, TSH, T7, URIC, CMP #### [facility] [address] [place] [address] [address] Conor Chan INSULINon 12-21-2021 Insulin 55.2 uIU/mL Critically high 2.6-24.9 [facility] Comment on above: Performed By: #### I NSULIN #### [facility] [address] [place] [address] Dr. Conor Chan TESTOSTERONE, TOTALon 2021 Testosterone [Mass/Vol] 380 ng/dL Normal 264-916 [facility] Comment on above: Result Comment: Adul t male reference interval is based on a population of healthy nonobese males (BMI <30) between 19 and 39 years old. Travon, et.al. JCEM 2017,102;0425-6730. PMID: [id number]. Performed By: #### L IPID, TSH, T7, URIC, CMP #### [facility] [address] [place] [address] Dr. Conor Chan CBC AUTO DIFFon 12-20-2021 BASO # 0.0 103/ul Normal 0.0-0.1 [facility] Comment on above: Performed By: #### C BC #### [facility] [address] [place] [address] Dr. Conor Chan Basophils/100 WBC (Bld) 0.5 % Normal 0.2-2.0 [facility] Comment on above: Performed By: #### C BC #### [facility] [address] [place] [address] Dr. Conor Chan EO # 0.2 103/ul Normal 0.0-0.7 [facility] Comment on above: Performed By: #### C BC #### [facility] [address] [place] [address] Dr. Conor Chan Eosinophils/100 WBC (Bld) 3.5 % Normal 0.9-7.0 [facility] Comment on above: Performed By: #### C BC #### [facility] [address] [place] [address] Dr. Conor Chan Erythrocyte distribution width (RBC) [Ratio] 13.8 % Normal 11.0-15.0 [facility] Comment on above: Performed By: #### C BC #### [facility] [address] [place] [address] Dr. Conor Chan Hematocrit (Bld) [Volume fraction] 48.5 % Normal 42.0-54.0 [facility] Comment on above: Performed By: #### C BC #### [facility] [address] [place] [address] Dr. Conor Chan Hemoglobin (Bld) [Mass/Vol] 16.3 g/dL Normal 14.0-18.0 [facility] Comment on above: Performed By: #### C BC #### [facility] [address] [place] [address] Dr. Conor Chan IG # 0.02 10e3/ul Normal 0.00-0.03 [facility] Comment on above: Performed By: #### C BC #### [facility] [address] [place] [address] Dr. Conor Chan IG % 0.3 % Normal 0.0-0.5 [facility] Comment on above: Performed By: #### C BC #### [facility] [address] [place] [address] Dr. Conor Chan LYMPH # 1.4 103/ul Normal 1.2-3.8 [facility] Comment on above: Performed By: #### C BC #### [facility] [address] [place] [address] Dr. Conor hCan Lymphocytes/100 WBC (Bld) 21.7 % Normal 20.5-60.0 [facility] Comment on above: Performed By: #### C BC #### [facility] [address] [place] [address] Dr. Conor Chan MANUAL DIFF REQ NO Normal [facility] Comment on above: Performed By: #### C BC #### [facility] [address] [place] [address] Dr. Conor Chan MCH (RBC) [Entitic mass] 28.5 pg Normal 25.9-34.0 [facility] Comment on above: Performed By: #### C BC #### [facility] [address] [place] [address] Dr. Conor Chan MCHC (RBC) [Mass/Vol] 33.6 g/dL Normal 29.9-35.2 [facility] Comment on above: Performed By: #### C BC #### [facility] [address] [place] [address] Dr. Conor Chan MCV (RBC) [Entitic vol] 84.9 fL Normal 80.0-94.0 [facility] Comment on above: Performed By: #### C BC #### [facility] [address] [place] [address] Dr. Conor Chan MONO # 0.6 103/ul Normal 0.3-0.8 [facility] Comment on above: Performed By: #### C BC #### [facility] [address] [place] [address] Dr. Conor Chan Monocytes/100 WBC (Bld) 9.3 % Normal 1.7-12.0 [facility] Comment on above: Performed By: #### C BC #### [facility] [address] [place] [address] Dr. Conor Chan NEUT # 4.1 103/ul Normal 1.4-6.5 [facility] Comment on above: Performed By: #### C BC #### [facility] [address] [place] [address] Dr. Conor Chan Neutrophils/100 WBC (Bld) 64.7 % Normal 43.0-75.0 [facility] Comment on above: Performed By: #### C BC #### [facility] [address] [address] [address] Conor Chan Platelet mean volume (Bld) [Entitic vol] 9.8 fL Normal 9.5-13.5 [facility] Comment on above: Performed By: #### C BC #### [facility] [address] [place] [address] Dr. Conor Chan PLT 235 103/ul Normal 150-450 [facility] Comment on above: Performed By: #### C BC #### [facility] [address] [address] [address] Conor Chan RBC 5.71 106/ul Normal 4.70-6.10 [facility] Comment on above: Performed By: #### C BC #### [facility] [address] [place] [address] Dr. Conor Chan WBC 6.4 103/ul Normal 4.0-11.0 [facility] Comment on above: Performed By: #### C BC #### [facility] [address] [place] [address] Dr. Conor Chan FREE THYROXINE INDEX T7on FTI 2.89 Normal [facility] Comment on above: Performed By: #### L IPID, TSH, T7, URIC, CMP #### [facility] [address] [place] [address] Dr. Conor Chan T3U 34.0 % Normal 23.5-40.5 [facility] Comment on above: Performed By: #### L IPID, TSH, T7, URIC, CMP #### [facility] [address] [place] [address] Dr. Conor Chan T4 [Mass/Vol] 8.50 ug/dL Normal 5.53-11.00 [facility] Comment on above: Performed By: #### L IPID, TSH, T7, URIC, CMP #### [facility] [address] [place] [address] Dr. Conor Chan GLYCOHEMOGLOBIN A1Con 2021 ADA RECOMMENDATION ADA THERAPEUTIC TARG ET 6.0 - 7.0 ACTION SUGGESTED > 7.0 Normal [facility] Comment on above: Performed By: #### A 1C #### [facility] [address] [address] [address] Conor Chan Glucose [Mass/Vol] 126 mg/dL Normal [facility] Comment on above: Performed By: #### A 1C #### [facility] [address] [address] [address] Conor Chan HbA1c (Bld) [Mass fraction] 6.0 % Normal <=6.0 [facility] Comment on above: Performed By: #### A 1C #### [facility] [address] [address] [address] Conor Chan LIPID PROFILEon 12-20-2021 CHOL-HDL RATIO NORM SEE BELOW Normal [facility] Comment on above: Result Comment: 3.3 - 4.4 LOW RISK 4.4 - 7.1 AVERAGE RISK 7.1 - 11.0 MODERATE RISK >11.0 HIGH RISK Performed By: #### L IPID, TSH, T7, URIC, CMP #### [facility] [address] [place] [address] Dr. Conor Chan Cholesterol [Mass/Vol] 161 mg/dL Normal <=200 [facility] Comment on above: Performed By: #### L IPID, TSH, T7, URIC, CMP #### [facility] [address] [place] [address] Dr. Conor Chan Cholesterol in HDL [Mass/Vol] 50 mg/dL Normal [facility] Comment on above: Performed By: #### L IPID, TSH, T7, URIC, CMP #### [facility] [address] [address] [address] Conor Chan Cholesterol in LDL [Mass/Vol] 96.0 mg/dL Normal [facility] Comment on above: Performed By: #### L IPID, TSH, T7, URIC, CMP #### [facility] [address] [address] [address] Conor Chan Cholesterol.total/ Cholesterol in HDL [Mass ratio] 3.2 {ratio} Normal [facility] Comment on above: Performed By: #### L IPID, TSH, T7, URIC, CMP #### [facility] [address] [address] [address] Conor Chan HDL NORMAL > or = 60 mg/dl - LO W CARDIOVASCULAR RISK <40 mg/dl - HIGH CARDIOVASCULAR RISK Normal [facility] Comment on above: Performed By: #### L IPID, TSH, T7, URIC, CMP #### [facility] [address] [place] [address] Dr. Coonr Chan LDL CALC NORMAL SEE BELOW Normal [facility] Comment on above: Result Comment: <100 mg/dl OPTIMAL 100 - 129 mg/dl NEAR OR ABOVE OPTIMAL 130 - 159 mg/dl BORDERLINE HIGH 160 - 189 mg/dl HIGH >190 mg/dl VERY HIGH Performed By: #### L IPID, TSH, T7, URIC, CMP #### [facility] [address] [place] [address] Dr. Conor Chan Triglyceride [Mass/Vol] 75 mg/dL Normal <=150 [facility] Comment on above: Performed By: #### L IPID, TSH, T7, URIC, CMP #### [facility] [address] [place] [address] Dr. Conor Chan VLDL CALC 15.0 mg/dL Normal [facility] Comment on above: Performed By: #### L IPID, TSH, T7, URIC, CMP #### [facility] [address] [place] [address] Dr. Conor Chan PROF 14(COMP METB)on 022 Albumin [Mass/Vol] 3.7 g/dL Normal 3.5-5.0 [facility] Comment on above: Performed By: #### L IPID, TSH, T7, URIC, CMP #### [facility] [address] [place] [address] Dr. Conor Chan Albumin/Globulin [Mass ratio] 0.9 {ratio} Normal [facility] Comment on above: Performed By: #### L IPID, TSH, T7, URIC, CMP #### [facility] [address] [place] [address] Dr. Conor Chan ALP [Catalytic activity/Vol] 58 U/L Normal 38-126 [facility] Comment on above: Performed By: #### L IPID, TSH, T7, URIC, CMP #### [facility] [address] [place] [address] Dr. Conor Chan ALT [Catalytic activity/Vol] 40 U/L Normal 21-72 [facility] Comment on above: Performed By: #### L IPID, TSH, T7, URIC, CMP #### [facility] [address] [place] [address] Dr. Conor Chan Anion gap [Moles/Vol] 5.5 mmol/L Normal [facility] Comment on above: Performed By: #### L IPID, TSH, T7, URIC, CMP #### [facility] [address] [place] [address] Dr. Conor Chan AST [Catalytic activity/Vol] 18 U/L Normal 17-59 [facility] Comment on above: Performed By: #### L IPID, TSH, T7, URIC, CMP #### [facility] [address] [place] [address] Dr. Conor Chan Bilirubin [Mass/Vol] 0.5 mg/dL Normal 0.2-1.3 [facility] Comment on above: Performed By: #### L IPID, TSH, T7, URIC, CMP #### [facility] [address] [place] [address] Dr. Conor Chan Calcium [Mass/Vol] 9.9 mg/dL Normal 8.4-10.2 [facility] Comment on above: Performed By: #### L IPID, TSH, T7, URIC, CMP #### [facility] [address] [place] [address] Dr. Conor Chan Chloride [Moles/Vol] 97 mmol/L Critically low 98-107 [facility] Comment on above: Performed By: #### L IPID, TSH, T7, URIC, CMP #### [facility] [address] [place] [address] Dr. Conor Chan CO2 [Moles/Vol] 30.7 mmol/L Critically high 22.0-30.0 [facility] Comment on above: Performed By: #### L IPID, TSH, T7, URIC, CMP #### [facility] [address] [place] [address] Dr. Conor Chan Creatinine [Mass/Vol] 1.04 mg/dL Normal 0.66-1.25 [facility] Comment on above: Performed By: #### L IPID, TSH, T7, URIC, CMP #### [facility] [address] [place] [address] Dr. Conor Chan EGFR-AF CITIZEN [place] >60 Normal >=60 [facility] Comment on above: Performed By: #### L IPID, TSH, T7, URIC, CMP #### [facility] [address] [place] [address] Dr. Conor hCan EGFR-NON AF CITIZEN OF [place] >60 Normal >=60 [facility] Comment on above: Performed By: #### L IPID, TSH, T7, URIC, CMP #### [facility] [address] [place] [address] Dr. Conor Chan Globulin (S) [Mass/Vol] 4.2 g/dL Normal [facility] Comment on above: Performed By: #### L IPID, TSH, T7, URIC, CMP #### [facility] [address] [place] [address] Dr. Conor Chan Glucose [Mass/Vol] 122 mg/dL Critically high 74-106 [facility] Comment on above: Performed By: #### L IPID, TSH, T7, URIC, CMP #### [facility] [address] [place] [address] Dr. Conor Chan Potassium [Moles/Vol] 3.2 mmol/L Critically low 3.4-5.0 [facility] Comment on above: Performed By: #### L IPID, TSH, T7, URIC, CMP #### [facility] [address] [place] [address] Dr. Conor Chan Protein [Mass/Vol] 7.9 g/dL Normal 6.1-8.2 [facility] Comment on above: Performed By: #### L IPID, TSH, T7, URIC, CMP #### [facility] [address] [place] [address] Dr. Conor Chan Sodium [Moles/Vol] 130 mmol/L Critically low 137-145 [facility] Comment on above: Performed By: #### L IPID, TSH, T7, URIC, CMP #### [facility] [address] [place] [address] Dr. Conor Chan Urea nitrogen [Mass/Vol] 15.0 mg/dL Normal 9.0-20.0 [facility] Comment on above: Performed By: #### L IPID, TSH, T7, URIC, CMP #### [facility] [address] [place] [address] Dr. Conor Chan Urea nitrogen/Creatinin e [Mass ratio] 14.4 mg/mg Normal [facility] Comment on above: Performed By: #### L IPID, TSH, T7, URIC, CMP #### [facility] [address] [place] [address] Dr. Conor Chan TSHon 12-20-2021 TSH 2.122 uIU/mL Normal 0.470-4.680 [facility] Comment on above: Performed By: #### L IPID, TSH, T7, URIC, CMP #### [facility] [address] [place] [address] Dr. Conor Chan TSH RANGE SEE BELOW Normal [facility] Comment on above: Result Comment: <0.3 4 UIU/ml HYPERTHYROID 0.34-5.60 UIU/ml EUTHYROID >5.60 UIU/ml HYPOTHYROID Performed By: #### L IPID, TSH, T7, URIC, CMP #### [facility] [address] [place] [address] Dr. Conor Chan URIC ACID SERUMon 12-20-2021 Urate [Mass/Vol] 7.3 mg/dL Normal 3.5-8.5 [facility] Comment on above: Performed By: #### L IPID, TSH, T7, URIC, CMP #### [facility] [address] [place] [address] Dr. Conor Chan XR LSPINE MIN 4 [...] by: OSCAR FRANCO Date: 2021-12-20 10:06 Normal [facility] Vital Signs Date Time Vital Sign Value Performing Clinician Facility 07-20-2024 13:29-0400 Blood Pressure Location Rell ADAMSON [facility] 07-20-2024 13:29-0400 Diastolic blood pressure 78 mm[Hg] Rell ADAMSON [facility] 07-20-2024 13:29-0400 Heart rate 72 /min Rell ADAMSON [facility] 07-20-2024 13:29-0400 Respiratory rate 16 /min Rell ADAMSON [facility] 07-20-2024 13:29-0400 Systolic blood pressure 116 mm[Hg] Rell ADAMSON [facility] 07-08-2024 09:47-0400 Body height 182.9 cm Car LUCIANO Work Phone: [facility] 07-08-2024 09:47-0400 Body mass index (BMI) [Ratio] 36.84 kg/m2 Car LUCIANO Work Phone: [facility] 07-08-2024 09:47-0400 Body weight 123.2 kg Car LUCIANO Work Phone: [facility] 2023 08:03-0400 Body height 182.9 cm Bilal Sushil LANDA Work Phone: [facility] 2023 08:03-0400 Body weight 120.2 kg Bilal Sushil LANDA Work Phone: [facility] 06-02-2023 13:26-0400 Body height 182.9 cm Darren Elizabeth APRN.MANAGER EDITORIAL Work Phone: [facility] 06-02-2023 13:26-0400 Body weight 117.03 kg Darren Elizabeth APRN.MANAGER EDITORIAL Work Phone: [facility] 06-02-2023 13:26-0400 Diastolic blood pressure 84 mm[Hg] Darren Elizabeth APRN.MANAGER EDITORIAL Work Phone: [facility] 06-02-2023 13:26-0400 Heart rate 63 /min Darren Elizabeth APRN.KIRILL Work Phone: [facility] 06-02-2023 13:26-0400 Respiratory rate 18 /min Darern Elizabeth APRN.MANAGER EDITORIAL Work Phone: [facility] 06-02-2023 13:26-0400 SaO2% (BldA) [Mass fraction] 95 % Darren Elizabeth APRN.MANAGER EDITORIAL Work Phone: [facility] 06-02-2023 13:26-0400 Systolic blood pressure 128 mm[Hg] Darren Elizabeth APRN.MANAGER EDITORIAL Work Phone: [facility] 05-13-2023 11:22-0400 Body height 182.88 cm Avi Yepez Work Phone: [facility] 250 DO Work Phone: 05-13-2023 11:22-0400 Body mass index (BMI) [Ratio] 36.21 kg/m2 Avi Aguilar [employer] Work Phone: [facility] 250 DO Work Phone: 05-13-2023 11:22-0400 Body surface area Derived from formula 2.41 m2 Avi Aguilar [employer] Work Phone: [facility] 250 DO Work Phone: 05-13-2023 11:22-0400 Body weight 121.11 kg Avi M Hoy Work Phone: [facility] 250 DO Work Phone: 05-13-2023 11:22-0400 Diastolic blood pressure 78 mm[Hg] Avi M Hoy Work Phone: [facility] 250 DO Work Phone: 05-13-2023 11:22-0400 Heart rate 64 /min Avi M Hoy Work Phone: [facility] 250 DO Work Phone: 05-13-2023 11:22-0400 Systolic blood pressure 132 mm[Hg] Avi M Hoy Work Phone: [facility] 250 DO Work Phone: 05-07-2022 11:36-0400 Body height 182.88 cm Avi M Hoy Work Phone: [facility] 250 DO Work Phone: 05-07-2022 11:36-0400 Body mass index (BMI) [Ratio] 38.38 kg/m2 Avi M Hoy Work Phone: [facility] 250 DO Work Phone: 05-07-2022 11:36-0400 Body surface area Derived from formula 2.47 m2 Avi M Hoy Work Phone: [facility] 250 DO Work Phone: 05-07-2022 11:36-0400 Body weight 128.37 kg Avi M Hoy Work Phone: [facility] 250 DO Work Phone: 05-07-2022 11:36-0400 Diastolic blood pressure 72 mm[Hg] Avi M Hoy Work Phone: [facility] 250 DO Work Phone: 05-07-2022 11:36-0400 Heart rate 66 /min Avi Aguilar Hosvetlana Work Phone: [facility] 250 DO Work Phone: 05-07-2022 11:36-0400 Systolic blood pressure 110 mm[Hg] Avi Aguilar Hosvetlana Work Phone: [facility] 250 DO Work Phone: Encounters Encounter Date Encounter Type Care Provider Facility Start: 06-17-2025 End: 06-17-2025 Bamboo flowsheet Car LUCIANO Work Phone: [facility] Start: 06-17-2025 End: 06-17-2025 Bamboo flowsheet Car LUCIANO Work Phone: [facility] Start: 06-13-2025 End: 06-13-2025 ambulatory Evelnye Polk MD Facility:[facility] Start: 04-20-2025 End: 04-20-2025 Bambowade flowsgregorio [...] Not Available Start: 03-04-2025 End: 03-04-2025 ambulatory [facility] Start: 02-18-2025 End: 02-18-2025 Office outpatient visit 15 minutes Car LUCIANO Work Phone: [facility] Comment on above: Acute pain of left k nee (Primary Dx); Arthritis of left knee; Knee instability, left Start: 02-18-2025 End: 02-18-2025 ambulatory CAR CUELLAR Not Available Start: 12-13-2024 End: 12-13-2024 ambulatory Evelyne Polk MD Facility:[facility] Start: 09-09-2024 End: 09-09-2024 [facility] Start: 09-08-2024 End: 09-08-2024 ambulatory Rell ADAMSON Facility:[facility] Start: 09-08-2024 End: 09-08-2024 Patient encounter procedure Rell ADAMSON [facility] Start: 08-30-2024 End: 08-30-2024 Bamboo flowsheet Car [...] 08-25-2024 ambulatory MD Avi Yepez Work Phone: [facility] Work Phone: Start: 08-25-2024 End: 08-25-2024 Departed Referred MD Avi Yepez Work Phone: [facility] Start: 08-25-2024 End: 08-25-2024 ambulatory Rell ADAMSON Facility:[id number] Start: 08-16-2024 End: 08-16-2024 Bamboo flowsheet [...] Start: 07-28-2024 End: 07-28-2024 Refill Corona Peng LEAD ADVISOR Work Phone: [facility] Comment on above: Post-op pain (Primar y Dx) Start: 07-20-2024 End: 07-20-2024 ambulatory Rell ADAMSON Facility:[facility] Start: 07-20-2024 End: 07-20-2024 Patient encounter procedure Rell ADAMSON [facility] Start: 07-19-2024 End: 07-19-2024 Bamboo flowsheet Maria E Liv PT [facility] Start: 07-19-2024 End: 07-19-2024 Bamboo flowsheet Maria E [place] PT [facility] Start: 07-19-2024 End: [...] Bamboo flowsheet Car Cuellar PA Work Phone: [facility] Start: 07-08-2024 End: 07-08-2024 Bamboo flowsheet Car Cuellar PA Work Phone: [facility] Start: 07-08-2024 End: 07-08-2024 Patient encounter procedure Car LUCIANO Work Phone: [facility] Comment on above: Preop examination (P rimary Dx); Internal derangement of left knee Start: 07-08-2024 End: 07-08-2024 Preprocedural examination done Car LUCIANO Work Phone: [facility] Start: 07-08-2024 End: 07-08-2024 ambulatory CAR CUELLAR Not Available Start: 07-05-2024 ambulatory [facility] Facility:[facility] Start: 06-21-2024 End: 06-21-2024 Office outpatient visit 25 minutes Jr. Elias Thomas DO Work Phone: [facility] Comment on above: Internal derangement of left knee (Primary Dx) Start: 06-21-2024 End: 06-21-2024 ambulatory ELIAS EDEN Not Available Start: 06-11-2024 End: 06-11-2024 ambulatory [facility] Start: 06-09-2024 Non-patient / Non-visit MD Indra Yepez Work Phone: [facility] Work Phone: Start: 2023 End: 2023 ambulatory BILAL CHINA BUTT Facility:[facility] Start: 2023 End: 2023 Office outpatient new 30 minutes Bilal China Butt Work Phone: [facility] Comment on above: Meralgia paresthetic a of left side (Primary Dx); Chronic midline low back pain without sciatica Start: 08-01-2023 End: 08-01-2023 ambulatory Darren Elizabeth MARINE WATER TENDER.MANAGER EDITORIAL Work Phone: [facility] Comment on above: Dr chong Cut me open Start: 07-01-2023 End: 07-01-2023 ambulatory NIKOLAY Maira CAMP Facility:[facility] Start: 06-26-2023 Telephone encounter Nikolay Camp DO Work Phone: [facility] Comment on above: Preparations For Pro cedures (Pre-injection instructions) Start: 06-19-2023 Orders Only Nikolay hall DO Work Phone: Neurology Comment on above: Lumbar radiculopathy (Primary Dx); Displacement of lumbar intervertebral disc without myelopathy Start: 06-02-2023 End: 06-03-2023 ambulatory DARREN ELIZABETH Facility:[facility] Start: 06-02-2023 End: 06-02-2023 Patient encounter procedure Darren Elizabeth MARINE WATER TENDER.MANAGER EDITORIAL Work Phone: [facility] Comment on above: Radiculopathy, lumba r region (Primary Dx); Lumbar disc herniation Start: 05-13-2023 Office outpatient vi sit 25 minutes Avi Yepez Work Phone: [facility] 250 DO Work Phone: Start: 05-13-[address] Reilly [facility]cho[facility] Facility: Start: 05-06-2023 Chart abstracting None (Historical) Neurology Start: 12-16-2022 Rx Renewal Avi Yepez Work Phone: [facility] 250 DO Work Phone: Start: 07-17-2022 End: 07-17-2022 Departed Referred MD Avi Yepez Work Phone: [facility] 250 Start: 05-07-2022 Office outpatient vi sit 25 minutes Avi Yepez Work Phone: [facility] 250 DO Work Phone: Start: 01-03-[address] AVI YEPEZ Facility :[facility] Start: 12-21-2021 Encounter for genera l adult medical examination without abnormal findings DR AVI YEPEZ [facility] Start: 12-20-2021 End: 12-21-[address] AVI YEPEZ Facility:[facility] Start: 12-20-2021 End: 12-21-2021 Encounter for general adult medical examination without abnormal findings DR AVI YEPEZ Facility:[facility] Start: 12-10-2021 Rx Renewal Reilly mcmahon MD Work Phone: [facility] 250 DO Work Phone: Procedures Date [...] on above: Performed By: #### PSASC #### [facility] [address] [place] [address] Dr. Conor Chan Start: 06-09-2020 Total colonoscopy [...] Screening for malign ant neoplasm of colon [facility] Start: 07-02-2029 Screening for malign ant neoplasm of colon [facility] Start: 12-20-2026 PROSTATE CANCER SCREENING DISCUSSION PROSTATE CANCER SCREENING DISCUSSION [facility] Start: 07-14-2025 End: 07-14-2025 Patient encounter procedure [facility] Start: 06-27-2025 Influenza vaccination Influenza Vacc ine (#1) [facility] Start: 06-17-2025 End: 06-17-[address] [facility] Comment on above: Acute pain of left k nee (Primary Dx) Start: 04-20-2025 End: 04-20-2025 Patient encounter procedure 04/20/2025 8:30 AM EDT Office Visit [facility] [address] [place] [phone] Jr. Elias Thomas DO [address] [facility] [address] [place] [address] Arrived [facility] Comment on above: Arrived Start: 08-30-2024 End: 08-30-2024 Patient encounter procedure 08/30/2024 10:15 AM EST Office Visit [facility] [address] [place] [address] Car Cuellar PA [address] [facility] [address] [place] [address] S/P left knee arthroscopy (Primary Dx) [facility] Comment on above: S/P left knee arthro scopy (Primary Dx) Start: 08-25-2024 [facility] Start: 08-16-2024 End: 08-16-2024 Patient encounter procedure 08/16/2024 10:00 AM EDT Office Visit [facility] [address] [place] [address] Car Cuellar PA [address] [place] [address] S/P left knee arthroscopy (Primary Dx) [facility] Comment on above: S/P left knee arthro scopy (Primary Dx) Start: 08-12-2024 End: 08-12-2024 Patient encounter procedure 08/12/2024 9:00 AM EDT Office Visit [facility] [address] [place] [phone] Car Cuellar, PA [address] [facility] [address] [place] [address] [facility] Start: 07-29-2024 End: 07-29-2024 Patient encounter procedure 07/29/2024 10:45 AM EDT Procedure Visit [facility] Jr. Elias Thomas DO [address] [facility] [address] [place] [address] [facility] Start: 07-19-2024 End: 07-19-2024 ambulatory [facility] Comment on above: Internal derangement of left knee Start: 07-08-2024 End: 07-08-2025 CBC W Auto Differential panel - Blood CBC and differential Lab Routine Preop examination Expected: 07/08/2024 (Approximate), Expires: 07/08/[address] [facility] Work Phone: Comment on above: Expected: 07/08/2024 (Approximate), Expires: 07/08/2025 Start: 07-08-2024 End: 07-08-2024 Patient encounter procedure 07/08/2024 10:00 AM EDT Office Visit [facility] [address] [place] [phone] Car Cuellar, PA [address] [facility] [address] [place] [address] Preop examination (Primary Dx); Internal derangement of left knee [facility] Comment on above: Preop examination (P rimary Dx); Internal derangement of left knee Start: 06-27-2024 Influenza vaccination Influenza Vacc ine (#1) [facility] Start: 06-27-2023 Influenza vaccination [facility] Start: 05-13-2023 FUV, Provider: Reilly Nelson, Status: Pen, Time: 11:10 AM FUV, Provider: Reilly Nelson, Status: Pen, [facility]: 11:10 AM [facility] Work Phone: Start: 10-27-2022 DEPRESSION ASSESSMENT DEPRESSION ASS ESSMENT [facility] Start: 05-17-2022 COVID-19 VACCINE (6 - Pfizer series) COVID-19 VACCINE (6 - Pfizer series) [facility] Start: 05-15-2022 FUV, Provider: Reilly Nelson, Status: Pen, Time: 2:00 PM FUV, Provider: Reilly Nelson, Status: Pen, Time: 2:00 PM [facility] Work Phone: Start: 07-02-2020 Colonoscopy COLONOSCOPY [facility] Start: 07-02-2020 COLORECTAL CANCER SCREENING COLORECTAL CANCER SCREENING [facility] Start: 2016 Prostate Cancer Screening Discussion Prostate Cancer Screening Discussion [facility] Start: 2011 SHINGRIX VACCINE (1 of 2) SHINGRIX VACCINE (1 of 2) [facility] Start: 2006 COLOGUARD (FIT-DNA) COLOGUARD (FIT-D NA) [facility] Start: [address] COLONOGRAPHY [facility] Start: 2006 DIABETES SCREEN DIABETES SCREEN [facility] Start: 2006 Diabetes Screening Diabetes Screenin g [facility] Start: 2006 FECAL OCCULT BLOOD FECAL OCCULT BLOO D [facility] Start: 2006 SIGMOIDOSCOPY SIGMOIDOSCOPY [facility] Start: 1996 Lipid 1996 panel - Serum or Plasma Lipid Screening [facility] Start: 1996 LIPID SCREEN LIPID SCREEN [facility] Start: 1980 Urine microalbumin profile [facility] Start: 1979 HEPATITIS C SCREENING HEPATITIS C SC REENING [facility] Start: 1979 HIV SCREENING HIV SCREENING [facility] Start: 1961 Screening for malign ant neoplasm of colon [facility] End: 09-02-2024 Radex spine lumbosacral minimum 4 views XR LUMBAR MOTION 4V AP/LAT/ FLEX/EXT Radiology Routine Meralgia paresthetica of left side 1 Occurrences starting 2023 until 09/02/2024 [facility] Work Phone: Comment on above: 1 Occurrences starti ng 2023 until 09/02/2024 SPINE INTERVENTION PROCEDURE SPINE INTERVENTION PROCEDURE Procedures Routine Radiculopathy, lumbar region Lumbar disc herniation Ordered: 06/02/2023 [facility] Work Phone: Comment on above: Ordered: 06/02/2023 [facility] Immunizations Immunization Date Immunization Notes Care Provider Deepa rehman 09-03-2024 influenza virus vaccine, unspecified formulation Car LUCIANO Work Phone: [facility] 09-12-2023 influenza virus vaccine, unspecified formulation JrHerbie Stepanic DO Work Phone: [facility] 10-14-2022 Pfizer COVID-19 Vac Bivalent 30 MCG/0.3ML Intramuscular Suspension Avi M Hoy Work Phone: [facility] 10-03-2022 influenza, injectabl e, quadrivalent, preservative free Avi M Hoy Work Phone: [facility] 250 DO Work Phone: 10-03-2022 influenza virus vaccine, unspecified formulation Darren Elizabeth MARINE WATER TENDER.MANAGER EDITORIAL Work Phone: [facility] 03-22-2022 Comirnaty 30 MCG/0.3 ML Intramuscular Suspension Avi M Hoy Work Phone: [facility] DO Work Phone: 03-22-2022 Moderna COVID-19 Vaccine 100 MCG/0.5ML Intramuscular Suspension Avi M Hoy Work Phone: [facility] Comment on above: Series: 03-22-2022 SARS-CoV-2 mRNA (idwatmgwwdt-[id number] se) vaccine Rell VALENCIAL [facility] 03-22-2022 zoster vaccine recombinant Avi M Hoy Work Phone: [facility] 250 DO Work Phone: 09-03-2021 Pfizer-BioNTech COVID-19 Vacc 30 MCG/0.3ML Intramuscular Suspension Avi M Hoy Work Phone: [facility] 08-25-2021 influenza virus vaccine, unspecified formulation Rell VALENCIAL [facility] 08-25-2021 influenza, injectabl e, quadrivalent, preservative free Avi M Hoy Work Phone: [facility] 250 DO Work Phone: 08-25-2021 zoster vaccine recombinant Avi M Hoy Work Phone: [facility] 250 DO Work Phone: 02-13-2021 Pfizer-BioNTech COVID-19 Vacc 30 MCG/0.3ML Intramuscular Suspension Avi M Hoy Work Phone: [facility] 01-20-2021 SARS-CoV-2 (COVID-19 ) mRNA [id number] vax Rell VALENCIAL [facility] 01-13-2021 Pfizer-BioNTech COVID-19 Vacc 30 MCG/0.3ML Intramuscular Suspension Avi M Hoy Work Phone: [facility] 12-23-2020 Pfizer-BioNTech COVID-19 Vacc 30 MCG/0.3ML Intramuscular Suspension Avi M Hoy Work Phone: [facility] 08-28-2020 influenza, injectabl e, quadrivalent, preservative free Avi M Hoy Work Phone: [facility] 250 DO Work Phone: 08-28-2020 influenza virus vaccine, unspecified formulation Juan R Ling MD Work Phone: [facility] Payers Date Payer Category Payer Self-pay [id number] 2021 Private Health Insurance [id number] 2007 Managed Care HMO (unspecified) [id number] 1961 Unknown [id number] 1961 Unknown [id number] 1961 Unknown [id number] 1961 Unknown [id number] 1961 Unknown [id number] 1961 Unknown [id number] 1961 Unknown [id number] 9 1961 Unknown [id number] 9 1961 Unknown [id number] 9 1960 Unknown [id number] 9 1960 Unknown [id number] 9 1961 Unknown [id number] 9 1961 Unknown [id number] 9 1961 Unknown [id number] 1961 Unknown [id number] 1958 Private Health Insurance [id number] 1958 Self-pay [id number] Unknown Unknown [facility] [id number] Unknown [id number] Social History Date Type Detail Facility Start: 06-02-2023 End: 04-20-2025 Consumes alcohol Consumes alcohol [facility] Comment on above: socially; occasional; Start: 09-28-2020 End: 05-10-2024 Tobacco smoking status NHIS Never smoked tobacco (finding) [facility] Start: 1960 Sex Assigned At Male F [facility] Tobacco smoking stat us TXIS Tobacco smoking consumption unknown [facility] Start: 1960 Sex Assigned At Not on file [facility] Start: 06-02-2023 End: 04-20-2025 Gender identity Not on file [facility] Start: 06-02-2023 End: 05-10-2024 Tobacco use and exposure Smokeless tobacco non-user [facility] National Score (1-10 0), lower number is lower risk 62 [facility] Start: 07-28-2023 Gender identity Identifies as male gender (finding) [facility] Start: 07-28-2023 Sexual orientation Heterosexual (fin ding) [facility] Start: 07-08-2024 End: 04-20-2025 Alcoholic beverage intake Current drinker of alcohol (finding) [facility] Start: 05-10-2024 Alcohol Comment 1/WK [facility] Functional Status Date Assessment Result Facility 09-08-2024 Functional Status N/A [facility] [place] 07-20-2024 Functional Status N/A [facility] [place] Clinical Notes 05-06-2023 to 04-20-2025 Jr. Elias [...] in this patient''s case because of the fgrb-[id number]-bhrk articulation of the patient's knee.. Questions answered in laymen terms at the bedside. The diagnosis, home exercise plan and any ongoing restrictions/ recommendations reviewed. If unable to be reached in office, I recommend evaluation at nearest Emergency Room if any symptoms worsened or new symptoms develop for requiring urgent evaluation. Visit was preformed using zkipster Co-airplane pilot crop dusting speech recognition. documented in this encounter [facility] 03-04-2025 Note [place] [facility] [...] and he had carotid stenosis, sister had CT, mother had brain aneurysm ROS All systems [...] twice a day., Disp: , Rfl: HYDROcodone-acetaminophen ([place]) 5-325 mg tablet, Take 1 tablet by [...] and symmetric in (more content not included)... [facility] 02-18-2025 History of Present illness Narrative Associated [...] Current pain management routine includes taking 2 [place] before activity, which is not recommended. Discussed [...] requiring urgent evaluation. Visit was preformed using zkipster [employer]-airplane pilot crop dusting speech recognition. documented in this encounter [facility] 09-09-2024 Note Cardiology Clinic No te Chief [...] as needed Richard Benitez MD Interventional Cardiology [facility] 08-30-2024 History of Present illness Narrative [...] requiring urgent evaluation. documented in this encounter [facility] 08-16-2024 History of Present illness Narrative Images [...] requiring urgent evaluation. documented in this encounter [facility] 08-16-2024 Instructions ANKITA Stapleton - 08/16/2024 10:00 [...] than 10 mins documented in this encounter [facility] 07-28-2024 Telephone encounter Note Post op pain rx. PDMP reviewed [facility] 07-28-2024 Miscellaneous Notes Post op pain rx. PDMP reviewed documented in this encounter [facility] 07-20-2024 Note General Surgery Offi ce/Clinic Note [...] tab(s), Oral, Ivy (more content not included)... [facility] Comment on above: Result Comment: Elec [...] sign below. Date: documented in this encounter [facility] 07-08-2024 History of Present illness Narrative Images [...] Answer: No Ambulatory referral to Physical Therapy [facility] ; PLEASE CALL PATIENT TO SCHEDULE, [...] SX INSTRUCTIONS GIVEN TODAY 07/08 @10AM - [place] CARDIAC CLEARANCE ; OBTAINED - CASEY PROTOCOL PT REFERRAL SENT ; CRUTCH TRAIN AND DISPENSE NPAR ([id number], [id number]) Follow up for 08/12 @9AM W/AMANDA IN [place]. documented in this encounter [facility] 06-21-2024 History of Present illness Narrative Images from the original note were not included. HISTORY OF PRESENT ILLNESS: EST PT Kim Nichols is an 63 y.o. @ male. EST PT RECHECK LT KNEE PAIN - POSSIBLY DISCUSS SURGERY- PT WAS GETTING A CARDIAC WORK UP- PT DID SEE DR BENITEZ (FLUE DUST LABORER) 06/11/24; PT STATES HE IS CLEARED (OFFICE NOT IS UNDER ENCOUNTER) PT STATES HE WAS ADMITTED TO [facility] FOR A-FIB X 1DAY ~05/17/24 XRAY [...] Use: Low Risk (06/11/2024) Received from [facility] Patient History Smoking Tobacco Use: Never [...] states that he was cleared per his industrial engineering ; we will need to obtain clearance [...] Elias Thomas D.O. documented in this encounter [facility] 06-11-2024 Note Cardiology Clinic No te Chief [...] without additional cardiac (more content not included)... [facility] 10-09-2023 Note HNO ID: [id number] Author: Juan R Ling MD Service: ? [...] issues. 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 [facility] 2023 Note HNO ID: [id number] Author: Bossman Saunders Service: ? Author Type: [...] opioids Medications: See medication reconciliation list in [facility] MEDICATIONS: Gabapentin, [place], Tylenol Have you ever seen a pain [...] routine daily living activities? No Bossman Escoto [facility] 2023 History of Present illness Narrative [...] issues. 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 Author Type: Nurse Practitioner Type: Progress Notes Filed: 08/01/2023 1:30 PM Note Text: SPINE SURGERY ESTABLISHED VISIT This is a virtual visit using [employer] Video Visit. It required patient-provider interaction for the medical decision making as documented below. DATE OF SERVICE: 08/01/2023 DATE OF LAST VISIT: 06/02/2023 SUBJECTIVE: HPI:Kim Nichols is a 62 year old male presenting via virtual vist s/p Left L5 transforaminal epidural steroid injection on 07/01/[address] Camp. [place] great initially and for the first few [...] which included preparing to see the patient, [id number] patient care, completing clinical documentation, obtaining and/or reviewing separately obtained history, performing a medically appropriate examination, counseling and educating the patient/family/caregiver, independently interpreting results (not separately reported), and communicating results to the patient/family/caregiver. SIGNATURE: Darren Elizabeth APRN.KIRILL PATIENT NAME: Kim Nichols DATE: August 01, 2023 TIME: 12:53 PM PAGER: [facility] 06-26-2023 Miscellaneous Notes Phoned patient and message left for Kim to confirm appointment for Kim Nichols for spine procedure on 07/01/2023. Patient notified that [place] will call patient the night before with the time to arrive for injection. Patient verbalized understanding of the following: -Provided education on spine procedure and answered questions related to spine injection procedure. -Internal Communications Writer is needed to drive patient home. -NPO [...] to report. Diabetic: No Patient given number [phone], spine injections schedulers, if there is any [...] POST INJECTION INSTRUCTIONS documented in this encounter [facility] 06-02-2023 Note HNO ID: [id number] Author: Darren Elizabeth APRN.KIRILL Service: ? Author [...] with him pain. He also is prescribed [place] for breakthrough pain which he only takes [...] Normal. DATA REVIE (more content not included)... [facility] 06-02-2023 History of Present illness Narrative [...] with him pain. He also is prescribed [place] for breakthrough pain which he only takes [...] which included preparing to see the patient, [id number] patient care, completing clinical documentation, obtaining and/or reviewing separately obtained history, performing a medically appropriate examination, counseling and educating the patient/family/caregiver, independently interpreting results (not separately reported), and communicating results to the patient/family/caregiver. SIGNATURE: Darren Elizabeth APRN.CNP PATIENT NAME: Kim Nichols DATE: June 02, 2023 TIME: 1:57 PM PAGER: documented in this encounter [facility] 05-14-2023 Note HNO ID: [id number] Author: Ember Delatorre PA-C Service: ? Author Type: Physician Pharmacy General Manager Type: Progress Notes Filed: 05/14/2023 4:17 PM Note Text: Per Triage: Kim Nichols is a 62 year old male that requests evaluation of lumbar spine. Per review, they have symptoms of back and LLE pain. Positive for numbness. CMT: Medication: Gabapentin, Tylenol, [place] Studies (Reports unless indicated) MRI Lumbar: L4/5 moderate left foramen narrowing which may contribute to patient's symptoms 2. L5/S1 disc protrusion without significant canal or foramen narrowing. Disposition: Please schedule with surgical SANDY. Consider if injection is appropriate or on effective dose of Neurontin. Also see if symptoms correlate with imaging. [facility] 05-14-2023 History of Present illness Narrative Per Triage: Kim Nichols is a 62 year old male that requests evaluation of lumbar spine. Per review, they have symptoms of back and LLE pain. Positive for numbness. CMT: Medication: Gabapentin, Tylenol, [place] Studies (Reports unless indicated) MRI Lumbar: L4/5 moderate left foramen narrowing which may contribute to patient's symptoms 2. L5/S1 disc protrusion without significant canal or foramen narrowing. Disposition: Please schedule with surgical SANDY. Consider if injection is appropriate or on effective dose of Neurontin. Also see if symptoms correlate with imaging. Patient name: Kim Nichols Are you being referred by a [facility] for Spine Health Provider or Pain Management [...] facility where the MRI/CT/myelogram was completed: The [address] [address] MRI/CT/myelogram viewable in Epic: No If not, please provide [phone] to fax in imaging reports for review. [...] Additional Comments Hydrocodone documented in this encounter [facility] 05-06-2023 Note HNO ID: [id number] Author: Mauricio Kelley Service: ? Author Type: ? Type: Progress Notes Filed: 05/14/2023 4:17 PM Note Text: Patient name: Kim Nichols Are you being referred by a [facility] for Spine Health Provider or Pain Management [...] facility where the MRI/CT/myelogram was completed: The [place] [address] [place] [address] MRI/CT/myelogram viewable in Epic: No If not, please provide [phone] to fax in imaging reports for review. [...] the surgery was completed: Additional Comments Hydrocodone [facility] Evaluation + Plan note No data available for this section [facility] [place] Evaluation note No assessment inform ation available [facility] Work Phone: Evaluation note Diagnosis Radiculopathy, lumbar region- Primary Thoracic or lumbosacral neuritis or radiculitis, unspecified Lumbar disc herniation Displacement of lumbar intervertebral disc without myelopathy [facility] Diagnosis Lumbar radiculopathy- Primary Thoracic or lumbosacral neuritis or radiculitis, unspecified Displacement of lumbar intervertebral disc without myelopathy documented in this encounter [facility] note* Diagnosis Meralgia paresthetica of left side- Primary Meralgia paresthetica Chronic midline low back pain without sciatica documented in this encounter [facility] note* Diagnosis Post-op pain- Primary Other acute postoperative pain [facility] S/P left knee arthroscopy- Primary [facility] Diagnosis S/P left knee arthroscopy- Primary documented in this encounter [facility]* Diagnosis Preop examination- Primary Unspecified pre-operative examination Internal derangement of left knee [facility] Diagnosis Internal derangement of left knee- Primary [facility]* Diagnosis Internal derangement of left knee- Primary Need for crutch training documented in this encounter [facility]* Diagnosis Acute pain of [...] to their favorable impact on blood pressure [facility]cholesterol.[facility] Work Phone: History of Present [...] to call if they arise or occur. [facility] 250 DO Work Phone: History of [...] to call if they arise or occur. [facility] 250 DO Work Phone: Hospital Discharge instructions No data available for this section [facility] Progress note No data available for this section [facility] [place] Reason for referral (narrative)* Diagnostic Procedure Only (Routine) - Pending Review Specialty Diagnoses / Procedures Referred By Contac t Referred To Contact XR IMAGING Diagnoses Meralgia paresthetica of left side Procedures XR LUMBAR MOTION 4V AP/LAT/ FLEX/EXT RADEX SPINE LUMBOSACRAL MINIMUM 4 VIEWS Juan R Ling MD [address] [place] [address] [place] [address] Referral ID Status Reason Start Date Expiration Date Visits Requested Visits Authorized [id number] Pending Review Auto-Generat ed Referral 2023 09/02/2024 1 1 [facility] for referral (narrative)* Consultation (Routine) - Pending Review Specialty Diagnoses / Procedures Referred By Contac t Referred To Contact Physical Therapy Diagnoses Internal derangement of left knee Procedures SD OFFICE/OUTPATIENT NEW HIGH MDM 60 MINUTES Car Cuellar PA [address] [place] [address] [facility] [address] [place] [address] Referral ID Status Reason Start Date Expiration Date Visits Requested Visits Authorized [id number] Pending Review Consult and Treat 07/01/2024 12/28/2024 1 1 [facility] Healthcare Summary Purpose Family History No Family [...] DATE CREATED AUTHOR 01/05/2022 [facility] DATE CREATED AUTHOR AUTHOR'S ORGANIZ ATION 05/14/2023 [facility] DATE CREATED AUTHOR AUTHOR'S ORGANIZ ATION 05/14/2023 [employer] [facility] DATE CREATED AUTHOR AUTHOR'S ORGANIZ ATION 2023 [facility] DATE CREATED AUTHOR AUTHOR'S ORGANIZ ATION 08/05/2023 [facility] DATE CREATED AUTHOR AUTHOR'S ORGANIZ ATION 09/01/2024 [facility] DATE CREATED AUTHOR AUTHOR'S ORGANIZ ATION 09/10/2024 [facility] DATE CREATED AUTHOR AUTHOR'S ORGANIZ ATION 03/06/2025 [facility] DATE CREATED AUTHOR AUTHOR'S ORGANIZ ATION 06/19/2025 [facility] EPIC DATE CREATED AUTHOR AUTHOR'S ORGANIZ ATION 06/19/2025 [facility] Care Teams (unrecognized sec tion and [...] August 25, 2024 End: August 25, 2024 eRll Adamson MD [facility] Attending Provider Active Start: August 25, 2024 End: August 25, 2024 Team Status: Inactive Member Role Status Dates Avi Yepez MD Primary Care Provider Active Bijan Betts Jr, DO Attending Provider Active Cable Swager Relationship Specialty Start Date End Date Avi Yepez MD [address] [place] [address] Referring Family Medicine 04/24/23 Cable Swager Relationship Specialty Start Date End Date Avi Yepez MD [address] [place] [address] Referring Family Medicine 04/24/23 Cable Swager Relationship Specialty Start Date End Date Avi Yepez MD [address] [place] [address] Referring Family Medicine 04/24/23 Cable Swager Relationship Specialty Start Date End Date Avi Yepez MD [address] [place] [address] PCP - General Family Medicine 06/25/23 Avi Yepez MD [address] [place] [address] Referring Family Medicine 04/24/23 Cable Swager Relationship Specialty Start Date End Date Avi Yepez MD [address] [place] [facility] [address] PCP - General Family Medicine 06/25/23 Avi Yepez MD [address] [place] [facility] [address] Referring Family Medicine 04/24/23 Cable Swager Relationship Specialty Start Date End Date Avi Yepez MD [address] [place] [facility] [place] [address] PCP - General Family Medicine 06/25/23 Avi Yepez MD [address] [facility], [facility] Referring Family Medicine 04/24/23 Cable Swager Relationship Specialty Start Date End Date Avi Yepez MD [address] [place] [address] PCP - General 05/05/24 Cable Swager Relationship Specialty Start Date End Date Avi Yepez MD [address] [facility] [address] PCP - General 05/05/24 Cable Swager Relationship Specialty Start Date End Date Avi Yepez MD [address] [facility] [place] [address] PCP - General 05/05/24 Cable Swager Relationship Specialty Start Date End Date Avi Yepez MD [address] [facility] [place] [address] PCP - General 05/05/24 Cable Swager Relationship Specialty Start Date End Date Avi Yepez MD [address] [facility] [place] [address] PCP - General 05/05/24 Cable Swager Relationship Specialty Start Date End Date Avi Yepez MD [address] [facility] [place] [address] PCP - General 05/05/24 Cable Swager Relationship Specialty Start Date End Date Avi Yepez MD [address] [facility] [place] [address] PCP - General 05/05/24 Cable Swager Relationship Specialty Start Date End Date Avi Yepez MD [address] [facility] [place] [address] PCP - General 05/05/24 Cable Swager Relationship Specialty Start Date End Date Avi Yepez MD [address] [facility] [place] [address] PCP - General 05/05/24 Cable Swager Relationship Specialty Start Date End Date Avi Yepez MD [address] [facility] [place] [address] PCP - General 05/05/24 Cable Swager Relationship Specialty Start Date End Date Avi Yepez MD PCP - General 05/05/24 Cable Swager Relationship Specialty Start Date End Date Avi Yepez MD PCP - General 05/05/24 Cable Swager Relationship Specialty Start Date End Date Avi Yepez MD [address] [place] [address] PCP - General Family Medicine 06/17/25 Goals [...] or prosecute any alcohol or drug abuse patient.[facility] the event this information is protected by the Federal Confidentiality of Alcohol and Drug Abuse Patient Records regulations: The Federal rules restrict any use of the information to criminally investigate or prosecute any alcohol or drug abuse patient.[facility] the event this information is protected by the Federal Confidentiality of Alcohol and Drug Abuse Patient Records regulations: The Federal rules restrict any use of the information to criminally investigate or prosecute any alcohol or drug abuse patient.[facility] the event this information is protected by the Federal Confidentiality of Alcohol and Drug Abuse Patient Records regulations: The Federal rules restrict any use of the information to criminally investigate or prosecute any alcohol or drug abuse patient.[facility] the event this information is protected by the Federal Confidentiality of Alcohol and Drug Abuse Patient Records regulations: The Federal rules restrict any use of the information to criminally investigate or prosecute any alcohol or drug abuse patient.[facility] the event this information is protected by the Federal Confidentiality of Alcohol and Drug Abuse Patient Records regulations: The Federal rules restrict any use of the information to criminally investigate or prosecute any alcohol or drug abuse patient.[facility] Reason for Visit (unrecogniz ed section and content) Reason Comments New Patient Reason Comments Preparations For Procedures Pre-injectio n instructions Reason Comments Low Back Pain New Patient Evaluation Reason Comments Pain Post-op Reason Comments Pain Reason Comments Pain Specialty Diagnoses / Procedures Referred By Contac t Referred To Contact Physical Therapy Diagnoses Internal derangement of left knee Procedures SD OFFICE/OUTPATIENT NEW HIGH [facility] 60 MINUTES Car Cuellar, ANKITA [address] [place] [address] Maria E Peck, EFRA Referral ID Status Reason Start Date Expiration Date Visits Requested Visits Authorized [id number] Authorized Consult and Treat 07/01/2024 12/28/2024 60 [...] BE BASED ON THE PRIMARY CLINICAL RECORDS. [facility] [employer] [facility]. provides no warranty or guarantee of the accuracy or completeness of information in this document.
--- NOTE | 2025-07-06 08:12 | PM.CN ---
Consult Note: HPI Data of Consult Patient: known to practice within the last 3 years Requesting Physician: Evelyne Polk MD Primary Care Provider: Jason Cervantes MD Consult Narrative Reason for consult: low back pain Narrative: Harrison Nichols a 64 year old male presents for evaluation of chronic low back pain secondary to lumbar ddd, lumbar spondylosis based on prior MRI. pt was evaluated by [facility] and deemed nonsurgical. cannot tolerate formal PT due to increased pain, has attempted HEP > 6 weeks with minimal relief. pain today 3-4/10 aching increasing to 6/10 with standing, walking, sleeping, transitioning. pain improved mildly with reclining in his chair and heat. utilizing tylenol with no improvement, cannot take NSAIDs on eliquis. prn use of norco through pcp as well as gabapentin without side effects. recently underwent bilateral L4-5 L5-S1 facet medial branch block #1 with no improvement. >80% improvement in pain and functional ability for at least 3 hours post injection. preop pain up to 6/10 post op pain 0/10. cc:: CC: Evelyne Polk MD [facility] Medical History Migraine ?G43.909 - Migraine, unspecified, not intractable, without status migrainosus (ICD-10) Colon polyp ?K63.5 - Polyp of colon (ICD-10) Sleep apnea ?G47.30 - Sleep apnea, unspecified (ICD-10) Atrial fibrillation ?I48.91 - Unspecified atrial fibrillation (ICD-10) Erectile dysfunction ?N52.9 - Male erectile dysfunction, unspecified (ICD-10) Hypokalemia ?E87.6 - Hypokalemia (ICD-10) New onset a-fib ?I48.91 - Unspecified atrial fibrillation (ICD-10) H/O multiple concussions ?Z87.820 - Personal history of traumatic brain injury (ICD-10) Arthritis ?M19.90 - Unspecified osteoarthritis, unspecified site (ICD-10) Bulging lumbar disc ?M51.36 - Other intervertebral disc degeneration, lumbar region (ICD-10) Chronic GERD ?K21.9 - Gastro-esophageal reflux disease without esophagitis (ICD-10) Hyperlipidemia ?E78.5 - Hyperlipidemia, unspecified (ICD-10) Hypertension ?I10 - Essential (primary) hypertension (ICD-10) Surgical History History of arthroscopy of knee (07/2024) ?Z98.890 - Other specified postprocedural states (ICD-10) H/O nasal septoplasty ?Z98.890 - Other specified postprocedural states (ICD-10) H/O left heart catheterization by ventricular puncture ?Z98.890 - Other specified postprocedural states (ICD-10) Hx of cholecystectomy ?Z90.49 - Acquired absence of other specified parts of digestive tract (ICD-10) Family History Sister Family history of myocardial infarction Family history of diabetes mellitus Father Family history of cancer Family history of myocardial infarction Family history of hypertension Family history of diabetes mellitus Mother Brain aneurysm Grandmother Family history of stroke Social History Within the past year, how often did you have a drink containing alcohol: monthly or less Within the past year, how many standard drinks containing alcohol did you have on a typical day: 1 or 2 Within the past year, how often did you have six or more drinks on one occasion: never Total score: 0 Score interpretation: A score less than 4 is consistent with normal alcohol consumption. Smoking status: Never smoker Non-prescribed substance use: cannabis (any form) Previous occupational history: Retired Highest level of school completed/degree received: Bachelor's degree Are you now , , , , never or living with a partner: In a typical week, how many times do you talk on the telephone with family, friends, or neighbors: twice per week How often do you get together with friends or relatives: twice per week How often do you attend episcopalian or catholic services: 4 or more times per year Do you belong to any clubs or organizations such as episcopalian groups unions, fraternal or athletic groups, or school groups: no Total score: 3 Score interpretation: A score of greater than or equal to 2 indicates the lowest level of social isolation. Little interest or pleasure in doing things: not at all Feeling down, depressed, or hopeless: several days Feel stressed/tense/nervous/anxious/difficulty sleeping: not at all Do you think of yourself as: straight/heterosexual Gender Identity: male Meds Home Medications and Allergies Home Medications ?Medication ?Instructions ?Recorded ?Confirmed ?Type aspirin 81 mg capsule 81 mg PO DAILY 05/07/24 07/04/25 History chlorthalidone 25 mg tablet 25 mg PO QAM 05/07/24 07/04/25 History gabapentin 300 mg capsule 300 mg PO BID 05/07/24 07/04/25 History rosuvastatin 20 mg tablet 20 mg PO .QHS 05/07/24 07/04/25 History apixaban 5 mg tablet (Eliquis) 5 mg PO BID #60 tabs 05/08/24 07/04/25 Rx metoprolol tartrate 25 mg tablet 25 mg PO BID #60 tabs 05/08/24 07/04/25 Rx potassium chloride 20 mEq 20 meq PO BID #60 tabs 05/08/24 07/04/25 Rx tablet,extended release hydrocodone 5 mg-acetaminophen 325 1 tab PO Q6H PRN pain 08/17/24 07/04/25 History mg tablet pantoprazole 40 mg tablet,delayed 40 mg PO DAILY 12/13/24 07/04/25 History release Allergies Allergy/AdvReac Type Severity Reaction Status Date / Time amoxicillin Allergy Intermediate Rash Verified 07/04/25 11:26 thiopental (From Pentothal) Allergy delayed Verified 07/04/25 11:26 emergence Exam Constitutional Documenting provider has reviewed patient's vital signs: yes Common normals: no apparent distress, oriented x3, healthy appearing, alert and well nourished General appearance: cooperative [facility] Common normals: normocephalic, hearing grossly normal bilaterally and moist oral mucous membranes Head and scalp: normocephalic Eye Common normals: PERRL Pupil: PERRL Neck & C-Spine Common normals: full ROM General: normal visual inspection Chest Common normals: inspection of chest normal Respiratory Common normals: normal respiratory effort, no retractions and no use of accessory muscles Back & Pelvis Lumbar spine/lower back: ROM limited, pain with ROM, lumbar spinal tenderness Lumbar spinal tenderness location: L2, L3, L4 and L5 and straight leg raise negative bilaterally Other: strength 5/5 in BLE sensation intact BLE myofascial spasm noted below Neuro Common normals: oriented x3 Sensorium/orientation: alert Psych Common normals: mental status grossly normal, thought process normal, cooperative, affect normal, speech normal and activity/motor behavior normal Speech: normal speech Thought process: normal thought process Results Additional Findings Additional findings: If on a controlled substance or opioids, I have checked an [place] report on this patient and there are no aberrancies noted in the prescribing history.??If on a controlled substance or opioid a drug screen was completed and reviewed within the last year, and if there has not been a drug screen completed we ordered one today to monitor higher risk, state monitored pain medication use. As part of providing excellent, safe, comprehensive care, the following was completed at our patient's visit: 1. A medication reconciliation and review to ensure accurate knowledge of current/active medications, including asking our patients to inform us about any [id number] medications or herbal remedies/nutritional supplements/alternative remedies. 2. A review to specifically ensure our patients have had annual screening for screening for depression, screening for tobacco use, and screening for unhealthy alcohol use. For concerning screenings had a discussion with the patient, provided patient education, and recommended follow-up with primary care provider when appropriate. If patient noted with a risk of falling, they received education on strength, gait, and balance training to prevent future risk of falling. Portions of this note may have been carried over from the previous visit and updated as appropriate. Please note this office utilizes paper charting in addition to the electronic medical record. A list of current medications, vitals, and PMH is available there as the clinical staff outside of myself do not have access to [employer] charting during the clinic day operations. As part of providing quality comprehensive care the current medications, vitals, and PMH were reviewed in the paper chart. Assessment and Plan Assessment and Plan (1) Lumbar spondylosis: Assessment and Plan: The patient has had over 3 months of moderate to severe low back pain with functional impairment and inadequate response to conservative care including NSAIDS (unless there are contraindication such as concurrent blood thinners), multiple oral or topical pain medications, and home exercise program/physical therapy.? Patient has completed >6 weeks of guided home exercise program and/or formal physical therapy program without relief of their symptoms.? I have reviewed the imaging of the lumbar spine and no red flags were identified.? The imaging reveals radiographic findings consistent with lumbar facet arthropathy, lumbar spondylosis, lumbar bulging disc The Oswestry Disability Index was completed, and the patient scored a 16%.? The patient noted the following:?? moderate pain with standing, lifting, ADLs, travel We discussed the risks and benefits of the procedure with the patient, and we are NOT planning on using sedation as outlined in the guidelines from Medicare unless there is a documented reason that sedation would be strongly recommended.??The procedure will be completed with fluoroscopic guidance.? 06/15/25 bilateral L2-3 L3-4 facet medial branch block preop pain 1/10 post op pain 0/10 for 15 minutes 07-04-25 bilateral L4-5 L5-S1 facet medial branch block #1 (2) Myofascial pain: Plan bilateral L4-5 L5-S1 facet medial branch block #2 in consideration of RFA for facet mediated pain continue medication management through PCP continue transdermal cream 3-4x/day to affected areas, finding benefit f/u after each injection
== END 2025-07-06 07:55 | disposition home or self-care (01) ==
PROVIDERS: PCP Family Medicine; Visit Provider Anesthesiology
DX: M47.816 Spondylosis without myelopathy or radiculopathy, lumbar region (principal); M79.18 Myalgia, other site
CPT/HCPCS: G0463

== ENCOUNTER 2025-07-15 10:41 | Outpatient (OUT) | payer OTHER, SELFPAY ==
--- OUTSIDE RECORDS SUMMARY | 2025-07-15 10:46 | XMS_ITS | CCD ---
Author Organization [facility] Care Team Providers Care Pyrometer Operator Name Role Phone Unavailable Unavailable DR [...] Unavailable Avi Yepez MD Primary Care Provider [phone] Avi Yepez MD Primary Care Provider [phone] CAR CUELLAR Attending Lacie THOMAS JR., ELIAS Saucedo Attending Unavailfarhad THOMAS JR., ELIAS Saucedo Attending Unavaila CAR Mack Attending Unavailable MARIA E PECK Attending Unavailable CAR CUELLAR Referring Unavailable CAR CUELLAR Attending Unavailable CAR CUELLAR Attending Unavailable Jam LANDA, Evelyne Bradley Attending Unavailable Jam LANDA, Evelyne Bradley Attending Unavailable Jam LANDA, Evelyne Bradley Attending Unavailable Avi Yepez MD Primary Care Provider [phone] Car Cuellar PA-C Attending Provider Allergies Allergy Classification Reported Allergen(s) Allergy Type Date of Onset Reaction(s) Facility (20 sources) Amoxicillin; Translations: [amoxicillin] Drug Allergy 0 Hives, Rash [facility] (1 source) Amoxicillin Drug Allergy [facility] (1 source) traMADol Drug Allergy [facility] (3 sources) Penicillin; Translations: [penicillin] Drug Allergy Weal (disorder) [facility] [place] (20 sources) traMADol; Translations: [TRAMADOL] Drug Allergy 4 Unknown [facility] (1 source) Amoxicillin Drug Allergy 0 [facility] Repository Medications Current Medications Medication Drug Class(es) Dates Sig (Normalized) Sig (Original) acetaminophen 325 mg / HYDROcodone bitartrate 5 mg oral tablet (17 sources) Opioid Agonist Start: 07-08-2024 take 1 tablet by mouth twice daily as needed for pain Orwell 325 mg-5 mg oral tablet 1 tab(s), Oral, BID as needed for pain, Refill(s) 0 Start Date: 07/08/24 Status: Ordered Start: 03-29-2024 End: 06-21-2024 take 1 tablet by mouth every twelve hours HYDROcodone-acetaminophen (Orwell) 5-325 MG tablet Take 1 tablet by mouth every 12 (twelve) hours 03/29/2024 06/21/2024 Discontinued (Therapy completed) Start: 09-26-2020 End: 07-31-2024 take 1 tablet by mouth every six hours as needed for headache HYDROcodone-acet aminophen (Orwell) 5-325 MG tablet Active Orwell 5-325 MG T ABS TAKE 1 TABLET EVERY 4 TO 6 HOURS NEEDED. Quantity: 0 Refills: 0 Ordered: 13-May-2023 DO Active Comment on above: Take 1 tablet by zainab th every 6 hours as needed. apixaban 5 mg oral tablet (20 sources) Factor Xa Inhibitor Start: 05-08-2024 Eliquis 5 MG tablet 5 mg 05/08/2024 Active ascorbic acid 1000 mg oral tablet (3 sources) Vitamin C Start: 09-26-2020 take 1 g by mouth once daily aspirin 81 mg delayed release oral tablet (20 sources) Platelet Aggregation Inhibitor, Nonsteroidal Anti-inflammatory Drug Start: 09-26-2020 take 1 tablet by mouth once daily aspirin (Vazalor e) 81 MG capsule Take by mouth Active Comment on above: Take by mouth. atorvastatin 40 mg oral tablet (3 sources) HMG-CoA Reductase Inhibitor Start: take 1 tablet by mouth once daily carvedilol 6.25 mg oral tablet (3 sources) alpha-Adrenergic Pina, beta-Adrenergic Pina Start: take 1 tablet by mouth twice daily chlorhexidine gluconate 40 mg/ml medicated liquid soap (2 sources) Start: End: Chlorhexidine Gluconate (Hibiclens) 4 % solution Indications: Pre-op examination Apply 1 Dose topically 1 time for 1 dose As directed night before surgery 118 mL 07/14/2025 07/14/2025 Active chlorthalidone 25 mg oral tablet (20 sources) Thiazide-like Diuretic Start: take 1 tablet by mouth once daily Comment on above: TAKE 1 TABLET BY ZAINAB TH EVERY DAY IN THE MORNING WITH FOOD FOR 90 DAYS diclofenac 35 mg oral capsule (20 sources) Nonsteroidal Anti-inflammatory Drug End: Diclofenac 35 MG capsule 07/14/2025 Discontinued (Therapy completed) fexofenadine hydrochloride 180 mg oral tablet (3 sources) Histamine-1 Receptor Antagonist Start: take 1 tablet by mouth once daily as needed fluocinonide 0.5 mg/ml topical cream (3 sources) Corticosteroid Start: folic acid 1 mg / polysaccharide iron complex 150 mg / vitamin b12 0.025 mg oral capsule (2 sources) Vitamin B12 Start: End: take 1 tablet by mouth once daily Iron Polysacch Vjgfj-R03-DO (Poly-Iron 150 Forte) 150-0.025-1 MG capsule Indications: Pre-op examination Take 1 tablet by mouth Daily 30 capsule 1 07/14/2025 08/13/2025 Active gabapentin 300 mg oral capsule (20 sources) Anti-epileptic Agent Start: take 1 capsule by mouth in the morning gabapentin (Neurontin) 300 MG capsule Take 300 mg by mouth in the morning and 300 mg in the evening. 05/27/2023 Active Start: 05-27-2023 take 1 capsule by [facility] twice daily gabapentin (NEURONTIN) 300 mg capsule Take 300 mg by mouth twice daily. 0 05/27/2023 Active take 1 capsule by [facility] twice daily Gabapentin 300 MG Oral Capsule [...] PO Every morning September 26, 2020 1:00am Multivitamin Tablet (1 source) Start: take 1 tablet by mouth once daily in the morning omeprazole 40 mg delayed release oral capsule (16 sources) Proton Pump Inhibitor Start: End: take 1 capsule by mouth once daily pantoprazole 40 mg delayed release oral tablet (20 sources) Proton Pump Inhibitor take 1 tablet by mouth before mealtime pantoprazole (ProtoNix) 40 MG EC tablet Take 40 mg by mouth in the morning. Take before meals. Do not crush, chew, or split. Active potassium chloride 20 meq extended release [...] (12 sources) Phosphodiesterase 5 Inhibitor Start: End: take 1 tablet by mouth once daily sildenafil (Viagra) 50 MG tablet take 1 tablet by mouth once daily if needed for 10 days 07/14/2023 08/16/2024 Discontinued sucralfate 1000 mg oral tablet (20 sources) Aluminum Complex End: sucralfate (Carafate) 1 g tablet Take by mouth 4 (four) times a day before meals 07/14/2025 Discontinued (Therapy completed) Completed/Discontinued Medications Medication Drug Class(es) Dates Sig [...] [Coronary atherosclerosis of unspecified type of vessel, tribe or graft] Onset: 03-04-2025 07-08-2024 Chronic Diabetes [...] 07-08-2024 Chronic Joint disorders and dislocations; trauma-related (20 sources) Derangement of left knee; Translations: [Unspecified internal derangement of left knee] Onset: 07-19-2024 07-19-2024 Chronic Nonspecific chest pain (3 sources) Chest pain; Translations: [Chest pain, unspecified] Onset: 07-20-2024 Episodic Osteoarthritis (10 sources) Arthritis of left knee; Translations: [Unilateral [...] Episodic/Chronic Immunizations and screening for infectious disease (20 sources) Patient encounter status; Translations: [Other specified vaccination] Onset: 07-19-2024 07-19-2024 Episodic Unclassified (5 sources) Never smoked tobacco; Translations: [Never a smoker] Unclassified (1 source) Obesity, class 3; Translations: [Obesity, class 3] Onset: 03-04-2025 Results Test Name Value Interpretation Reference Range Facility X-ray reportOrdered By: Ángel Huerta on 07-14-2025 Study report [facility] [place] [address] XRay Report Signed Patient: Kim Nichols MR#: [id number] : 1960 Acct:[id number] Age/Sex: 64 / M ADM Date: 5 Loc: XDS Room: Type: [facility] Attending Dr: Car Cuellar PA-C Copies to: Car Cuellar PA-C~ Ordering Provider: Car Cuellar PA-C Date of Service: 07/14/25 XR/XR femur BI: PRE OP ([id number]) XR/XR tibia/fibula BI: PRE OP History: Preop assessment for left total knee arthroplasty. Plain film imaging of the femurs. Adequate alignment. No acute displaced fracture. The right greater trochanter out of the field of view. No significant hip degeneration. Extensive left knee medial uzob-ph-qlkj contact degeneration. Unremarkable right knee. Plain film imaging of the tibia and fibula bilaterally. No acute displaced fracture. Adequate ankle joints. XR/XR tibia/fibula BI IMPRESSION: Extensive left and medial scec-dh-fsok contact the degeneration. Unremarkable hips. Unremarkable ankles. Impression dictated by: Tom Huerta M.D. 07/14/2025 4:10 PM Dictation Location: [facility]--16 Transcribed By: [facility] 07/14/25 1610 Dictated By: Tom Huerta DO 07/14/25 1608 Signed By: 07/14/25 1610 [facility] Office Visiton 03-04-2025 Follow-up visit [id number] Kim Nichols 1960 [facility] Provider Department Center 03/04/2025 [id number] MOHAMUD RAVIN [facility] Family History Problem Relation Age of Onset Brain Aneurysm Mother Stroke Father Heart attack Sister Family Status - Relation Status Age at Mother Father Sister Level of Service:69090 MT OFFICE/OUTPATIENT ESTABLISHED LOW [facility] 20 MIN Reason for Visit and Comments: Coronary Artery Disease [187] - Denies SOB. Atrial Fibrillation [80] - On Eliquis, denies bleeding. Denies palpitations and syncope. Hyperlipidemia [182] - Had lipid panel in May 2024. On rosuvastatin. Hypertension [935230] Chest Pain [484087] - Intermittent, blames his hiatal hernia and back pain. Normal [facility] No Panel Informationon 02-18 ANKITA Stapleton 02/18/2025 [...] and draped in the usual sterile fashion. [facility] Office Visiton 09-09-2024 Follow-up visit [id number] Kim Nichols 1960 M Date Provider Department Center 09/09/2024 3848-RICHARD BENITEZ RAVIN Sheaevbaljit [facility] Family History Problem Relation Age of Onset Brain Aneurysm Mother Stroke Father Heart attack Sister Family Status - Relation Status Age at Mother Father Sister Level of Service:69816 MT OFFICE/OUTPATIENT ESTABLISHED LOW MDM 20 MIN Normal [facility] Ambulatory Visit Summaryon 1 11-08-2023 Ambulatory Visit Summary Ambulatory Visit Summary KIM NICHOLS :1960 Visit Date:09/08/2024 Ambulatory Visit Instructions Your Care Team Attending Physician - SNOW LANDA, Rell Marr Primary Care Physician - Avi Yepez MD This Is Your Medications List acetaminophen-hydrocodone (Orwell 325 mg-5 mg oral tablet) apixaban (Eliquis [...] What How Much When Instructions Unchanged acetaminophen-hydrocodone (Orwell 325 mg-5 mg oral tablet) 1 Tablets [...] choosing us for your care. Normal [facility] General Surgery Office/Clini c Noteon 09-08-2024 [...] Tab, 25 mg= 1 tab(s), Oral, BID Orwell 325 mg-5 mg oral tablet, 1 tab(s), [...] virus vaccine, inactivated 09/12/2023 Recorded SARS-CoV-2 (COVID-19) [id number].[id number] 10/14/2022 Recorded influenza virus vaccine, inactivated 10/03/2022 Recorded SARSCoV2 mRNA(xhqbujhik-konm-bznaxy) vac 03/22/2022 Recorded SARS-CoV-2 (COVID-19) mRNA BNT-162b2 vax 09/03/2021 Recorded influenza virus vaccine, inactivated 08/25/2021 Recorded SARS-CoV-2 (COVID-19) mRNA BNT-162b2 vax 02/13/2021 Recorded SARS-CoV-2 (COVID-19) mRNA BNT-162b2 vax 01/20/2021 Recorded SARS-CoV-2 (COVID-19) mRNA BNT-162b2 vax 01/13/2021 Recorded SARS-CoV-2 (COVID-19) mRNA BNT-162b2 vax 12/23/2020 Recorded influenza virus vaccine, inactivated 08/28/2020 Recorded Normal [facility] Comment on above: Result Comment: Elec tronically Signed By: SNOW LANDA, Rell Mccormick\Date and Time Signed: 09/08/24 16:32 EST Reminderson 08-26-2024 Reminders Reminders From: María Ayala LPN To: GSN - Clinical; Sent: 08/26/2024 11:53:39 EDT Show up: 07/26/2034 07:00:00 EDT Subject: colonoscopy recall Due Date/Time: 08/25/2034 07:00:00 EDT Reminder/Recall Patient due for screening colonoscopy 08/25/2034. Normal [facility] Pathology Request for Lab Co rpon 08-25-2024 Pathology Request for Lab Le Normal [facility] Comment on above: Order Comment: PATHO LOGY GI SPECIMEN Result Comment: See report. Scanned copy available in EMR. PERFORMED BY: [facility] [place] [address] PATHOLOGIST RN ENTEROSTOMAL MICHAEL LEMUS M.D. Performed By: #### P ATH TO LABCO #### [facility] [address] Ambulatory Visit Summaryon 0 07-20-2024 Ambulatory [...] prescribing physician if questions or concerns acetaminophen-hydrocodone (Orwell 325 mg-5 mg oral tablet) apixaban (Eliquis [...] What How Much When Instructions Unchanged acetaminophen-hydrocodone (Orwell 325 mg-5 mg oral tablet) 1 Tablets [...] you for choosing us for your care. [facility] ALL CBC WITH AUTO DIFFon BASOPHILS ABSOLUTE AUTO 0.0 [facility] Basophils/100 WBC (Bld) 0.5 % 0.2 - 2.0 % [facility] Eosinophils/100 WBC (Bld) 3.0 % 0.9 [...] vol] 85.7 fL 80.0 - 94.0 fL [facility] MONOCYTES ABSOLUTE AUTO 0.7 [facility] Monocytes/100 WBC (Bld) 11.6 % 1.7 - 12.0 % [facility] Healthcare NEUTROPHILS ABSOLUTE AUTO 4.0 [facility] Neutrophils/100 WBC (Bld) 62.1 % 43.0 - 75.0 % [facility] Platelet mean volume (Bld) [Entitic vol] 10.5 fL 9.5 - 13.5 fL [facility] TB EO # 0.2 [facility] TBH PLT 246 [facility] RBC 5.39 [facility] TB WBC 6.4 [facility] Office Visiton 06-11-2024 Follow-up visit [id number] Kim Nichols 1960 M Date Provider Department Center 06/11/2024 3848-RICHARD BENITEZ RAVIN [facility] Family History Problem Relation Age of Onset Brain Aneurysm Mother Stroke Father Heart attack Sister Family Status - Relation Status Age at Mother Father Sister Level of Service:55447 MT OFFICE/OUTPATIENT NEW MODERATE MDM 45 MINUTES Reason for Visit and Comments: New Patient [Other] - CHEST PAIN/AFIB Normal [facility] CNOVon 2023 CNOV Office Visit (SPSLUH ) KIM NICHOLS ([id number]) 1960 M Date Time Provider Department 08/04/23 [...] opioids Medications: See medication reconciliation list in [facility] MEDICATIONS: Gabapentin, Orwell, Tylenol Have you ever seen a pain [...] issues. 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 [facility] 07-08-2023 [facility] Telephone (SPNMMN) KIM NICHOLS ([id number]) 1960 M Date Time Provider Department 07/08/23 NIKOLAY CAMP SPNMMN During your visit today, we recorded the following information about you: Stacy Gallagher RN 07/08/2023 12:56 PM Signed Post Spine Injection phone call: [phone] on 07/08/23 Patient denies fever, chills, new [...] appointment 2-4 weeks post procedure by calling [phone] Patient does not have any questions or [...] Status:Closed by STACY GALLAGHER on 07/08/23 Normal [facility] HISTORY PHYSICALon HISTORY PHYSICAL HNO ID: [id number] Author: Sherice Galvin APRN.KIRILL Service: ? Author [...] Prophylaxis/Anticoagulants VTE Prophylaxis: NA SIGNATURE: Sherice Galvin APRN.MARITIME OFFICER PATIENT NAME: Kim Nichols DATE: July 01, 2023 TIME: 9:04 AM Normal [facility] OPERATIVE NOon 07-01-2023 OPERATIVE NO HNO ID: [id number] Author: Nikolay Camp DO Service: Physical Medicine AND Rehabilitation Author Type: Physician Type: Operative Report Filed: 07/01/2023 9:40 AM Note Text: PROCEDURE REPORT Surgery/Procedure Date: July 01, 2023 Interventionalist: Nikolay Camp DO Procedure(s): Left L5 transforaminal epidural steroid injection Pre-Op/Pre-Procedure Diagnosis: Lumbar radiculopathy Post-Op Diagnosis: same SUBJECTIVE: Kim Nichols is a 62 year old male, who presents to the [facility] for a left L5 transforaminal epidural steroid injection. This is his first (1) procedure. 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 Pain is [...] home in stable condition. DO Fátima Castrejon [facility] Nina 06-26-2023 [facility] Telephone (SPNMMN) KIM NICHOLS ([id number]) 1960 M Date Time Provider Department 06/26/23 NIKOLAY CAMP [facility] During your visit today, we recorded the following information about you: Oscar Rollins LPN 06/26/2023 9:20 AM Signed Phoned patient and message left for Kim to confirm appointment for Kim Nichols for spine procedure on 07/01/2023. Patient notified that Emmet will call patient the night before with the time to arrive for injection. Patient verbalized understanding of the following: -Provided education on spine procedure and answered questions related to spine injection procedure. -Limited Radiology Technician is needed to drive patient home. [...] to report. Diabetic: No Patient given number [phone], spine injections schedulers, if there is any need to reschedule/ change appointment during normal business hours. Active MyChart users were informed to read PANOSOLhart procedure instructions prior to appointment. AMBULATORY PATIENT [...] Encounter Status:Closed by OSCAR ROLLINS on 06/26/23 [facility] CNOVon 06-02-2023 CNOV Office Visit (SPNSMN ) KIM NICHOLS ([id number]) 1960 M Date Time Provider Department 06/02/23 1:40 PM DARREN ELIZABETH SPNSMN During your visit today, we recorded the following information about you: Pulse Respiration Blood pressure Weight 63/minute 18/minute 128/84 117 kg Height 1.829 m Darren Elizabeth, TRAFFIC OPERATIONS MANAGER.MARITIME OFFICER 06/03/2023 1:01 PM Signed SPINE SURGERY OUTPATIENT [...] with him pain. He also is prescribed Orwell for breakthrough pain which he only takes [...] well de (more content not included)... Normal [facility] Office Visit (Cardiology)on 05-13-2023 Follow-up visit Diagnoses/Problems Assessed Coronary disease (414.00) (I25.10) Essential hypertension, benign (401.1) (I10) Hyperlipidemia (272.4) (E78.5) Class 2 obesity with body mass index (BMI) of 36.0 to 36.9 in adult (278.00,V85.36) (E66.9,Z68.36) Never a smoker Orders Class 2 obesity with body mass index (BMI) of 36.0 to 36.9 in adult Healthy Weight Tips; Status:Complete - Retrospective Authorization; Done: [id number] Some eating tips that can help you lose weight.; Status:Complete - Retrospective Authorization; Done: [id number] Coronary disease, Hyperlipidemia Renew: Aspirin EC Low Dose 81 MG Oral Tablet Delayed Release; TAKE 1 TABLET DAILY DIRECTED Hyperlipidemia Renew: Rosuvastatin Calcium 20 MG Oral Tablet; take 1 tablet by mouth at bedtime SocHx: Never a smoker Tobacco Use Screening; Status:Complete; Done: [id number] Patient Instructions Please bring all medicines, vitamins, [...] MG Oral CapsuleTAKE 1 CAPSULE TWICE DAILY. Orwell 5-325 MG TABSTAKE 1 TABLET EVERY 4 [...] negative for complaint. Vitals Vital Signs Recorded: 13May2023 11:22AM Heart Rate64, R Radial Tbgbfqkg535, RUE, Sitting Mvurdgyvf85, RUE, Sitting Height6 ft Tptutg283 lb BMI Rzhviyxrxd04.21 kg/m2 BSA Calculated2.41 Tobacco Useb) No PHQ-2 [...] no hep (more content not included)... Normal [facility] Tobacco Screening.on 023 Adult depression screening assessment No -[facility] [address] DO Work Phone: Tobacco use status [facility] b) No MP-[facility] [address] DO Work Phone: Tobacco Screening.on 022 Adult depression screening assessment No -[facility] [address] DO Work Phone: Fall risk assessment c) Not medically indicated [facility] DO Work Phone: Tobacco use status [facility] b) No [facility] DO Work Phone: H PYLORI ANTIBODY IGGon 11-28 H. PYLORI IGG ABS 0.45 Index Value Normal 0.00-0.79 [facility] Comment on above: Result Comment: Nega tive <0.80 Equivocal 0.80 - 0.89 Positive >0.89 Performed By: #### L IPID, TSH, T7, URIC, CMP #### [facility] [address] [place] [address] Dr. Conor Chan INSULINon 12-21-2021 Insulin 55.2 uIU/mL Critically high 2.6-24.9 [facility] Comment on above: Performed By: #### I NSULIN #### [facility] [address] [place] [address] Dr. Conor Chan TESTOSTERONE, TOTALon 2021 Testosterone [Mass/Vol] 380 ng/dL Normal 264-916 [facility] Comment on above: Result Comment: Adul t male reference interval is based on a population of healthy nonobese males (BMI <30) between 19 and 39 years old. Travon et.al. JCEM 2017,102;5775-8697. PMID: [id number]. Performed By: #### L IPID, TSH, T7, URIC, CMP #### [facility] [address] [place] [address] Dr. Conor Chan CBC AUTO DIFFon 12-20-2021 BASO # 0.0 103/ul Normal 0.0-0.1 [facility] Comment on above: Performed By: #### C BC #### [facility] [address] [place] [address] Dr. Conor Chan Basophils/100 WBC (Bld) 0.5 % Normal 0.2-2.0 [facility] Comment on above: Performed By: #### C BC #### [facility] [address] [place] [address] Dr. Conor Chan EO # 0.2 103/ul Normal 0.0-0.7 [facility] Comment on above: Performed By: #### C BC #### [facility] [address] [place] [address] Dr. Conor Chan Eosinophils/100 WBC (Bld) 3.5 % Normal 0.9-7.0 [facility] Comment on above: Performed By: #### C BC #### [facility] [address] [place] [address] Dr. Conor Chan Erythrocyte distribution width (RBC) [Ratio] 13.8 % Normal 11.0-15.0 [facility] Comment on above: Performed By: #### C BC #### [facility] [address] [place] [address] Dr. Conor Chan Hematocrit (Bld) [Volume fraction] 48.5 % Normal 42.0-54.0 [facility] Comment on above: Performed By: #### C BC #### [facility] [address] [place] [address] Dr. Conor Chan Hemoglobin (Bld) [Mass/Vol] 16.3 g/dL Normal 14.0-18.0 [facility] Comment on above: Performed By: #### C BC #### [facility] [address] [place] [address] Dr. Conor Chan IG # 0.02 10e3/ul Normal 0.00-0.03 [facility] Comment on above: Performed By: #### C BC #### [facility] [address] [place] [address] Dr. Conor Chan IG % 0.3 % Normal 0.0-0.5 [facility] Comment on above: Performed By: #### C BC #### [facility] [address] [place] [address] Dr. Conor Chan LYMPH # 1.4 103/ul Normal 1.2-3.8 [facility] Comment on above: Performed By: #### C BC #### [facility] [address] [place] [address] Dr. Conor Chna Lymphocytes/100 WBC (Bld) 21.7 % Normal 20.5-60.0 [facility] Comment on above: Performed By: #### C BC #### [facility] [address] [place] [address] Dr. Conor Chan MANUAL DIFF REQ NO Normal [facility] Comment on above: Performed By: #### C BC #### [facility] [address] [place] [address] Dr. Conor Chan MCH (RBC) [Entitic mass] 28.5 pg Normal 25.9-34.0 [facility] Comment on above: Performed By: #### C BC #### [facility] [address] [place] [address] Dr. Conor Chan MCHC (RBC) [Mass/Vol] 33.6 g/dL Normal 29.9-35.2 [facility] Comment on above: Performed By: #### C BC #### [facility] [address] [place] [address] Dr. Conor Chan MCV (RBC) [Entitic vol] 84.9 fL Normal 80.0-94.0 [facility] Comment on above: Performed By: #### C BC #### [facility] [address] [place] [address] Dr. Conor Chan MONO # 0.6 103/ul Normal 0.3-0.8 [facility] Comment on above: Performed By: #### C BC #### [facility] [address] [place] [address] Dr. Conor Chan Monocytes/100 WBC (Bld) 9.3 % Normal 1.7-12.0 [facility] Comment on above: Performed By: #### C BC #### [facility] [address] [place] [address] Dr. Conor Chan NEUT # 4.1 103/ul Normal 1.4-6.5 [facility] Comment on above: Performed By: #### C BC #### [facility] [address] [place] [address] Dr. Conor Chan Neutrophils/100 WBC (Bld) 64.7 % Normal 43.0-75.0 [facility] Comment on above: Performed By: #### C BC #### [facility] [address] [place] [address] Dr. Conor Chan Platelet mean volume (Bld) [Entitic vol] 9.8 fL Normal 9.5-13.5 [facility] Comment on above: Performed By: #### C BC #### [facility] [address] [address] [address] Conor Chan PLT 235 103/ul Normal 150-450 [facility] Comment on above: Performed By: #### C BC #### [facility] [address] [address] [address] Conor Chan RBC 5.71 106/ul Normal 4.70-6.10 [facility] Comment on above: Performed By: #### C BC #### [facility] [address] [address] [address] Conor Chan WBC 6.4 103/ul Normal 4.0-11.0 [facility] Comment on above: Performed By: #### C BC #### [facility] [address] [place] [address] Dr. Conor Chan FREE THYROXINE INDEX T7on FTI 2.89 Normal [facility] Comment on above: Performed By: #### L IPID, TSH, T7, URIC, CMP #### [facility] [address] [place] [address] Dr. Conor Chan T3U 34.0 % Normal 23.5-40.5 [facility] Comment on above: Performed By: #### L IPID, TSH, T7, URIC, CMP #### [facility] [address] [place] [address] Dr. Conor Chan T4 [Mass/Vol] 8.50 ug/dL Normal 5.53-11.00 [facility] Comment on above: Performed By: #### L IPID, TSH, T7, URIC, CMP #### [facility] [address] [place] [address] Dr. Conor Chan GLYCOHEMOGLOBIN A1Con 2021 ADA RECOMMENDATION ADA THERAPEUTIC TARG ET 6.0 - 7.0 ACTION SUGGESTED > 7.0 Normal [facility] Comment on above: Performed By: #### A 1C #### [facility] [address] [place] [address] Dr. Conor Chan Glucose [Mass/Vol] 126 mg/dL Normal [facility] Comment on above: Performed By: #### A 1C #### [facility] [address] [address] [address] Conor Chan HbA1c (Bld) [Mass fraction] 6.0 % Normal <=6.0 [facility] Comment on above: Performed By: #### A 1C #### [facility] [address] [address] [address] Conor Chan LIPID PROFILEon 12-20-2021 CHOL-HDL RATIO NORM SEE BELOW Normal [facility] Comment on above: Result Comment: 3.3 - 4.4 LOW RISK 4.4 - 7.1 AVERAGE RISK 7.1 - 11.0 MODERATE RISK >11.0 HIGH RISK Performed By: #### L IPID, TSH, T7, URIC, CMP #### [facility] [address] [address] [address] Conor Chan Cholesterol [Mass/Vol] 161 mg/dL Normal <=200 [facility] Comment on above: Performed By: #### L IPID, TSH, T7, URIC, CMP #### [facility] [address] [address] [address] Conor Chan Cholesterol in HDL [Mass/Vol] 50 mg/dL Normal [facility] Comment on above: Performed By: #### L IPID, TSH, T7, URIC, CMP #### [facility] [address] [address] [address] Conor Chan Cholesterol in LDL [Mass/Vol] 96.0 mg/dL Normal [facility] Comment on above: Performed By: #### L IPID, TSH, T7, URIC, CMP #### [facility] [address] [address] [address] Conor Chan Cholesterol.total/ Cholesterol in HDL [Mass ratio] 3.2 {ratio} Normal [facility] Comment on above: Performed By: #### L IPID, TSH, T7, URIC, CMP #### [facility] [address] [address] [address] Conor Chan HDL NORMAL > or = 60 mg/dl - LO W CARDIOVASCULAR RISK <40 mg/dl - HIGH CARDIOVASCULAR RISK Normal [facility] Comment on above: Performed By: #### L IPID, TSH, T7, URIC, CMP #### [facility] [address] [place] [address] Dr. Conor Chan LDL CALC NORMAL SEE BELOW Normal [facility] Comment on above: Result Comment: <100 mg/dl OPTIMAL 100 - 129 mg/dl NEAR OR ABOVE OPTIMAL 130 - 159 mg/dl BORDERLINE HIGH 160 - 189 mg/dl HIGH >190 mg/dl VERY HIGH Performed By: #### L IPID, TSH, T7, URIC, CMP #### [facility] [address] [address] [address] Conor Chan Triglyceride [Mass/Vol] 75 mg/dL Normal <=150 [facility] Comment on above: Performed By: #### L IPID, TSH, T7, URIC, CMP #### [facility] [address] [place] [address] Dr. Conor Chan VLDL CALC 15.0 mg/dL Normal [facility] Comment on above: Performed By: #### L IPID, TSH, T7, URIC, CMP #### [facility] [address] [place] [address] Dr. Conor Chan PROF 14(COMP METB)on 022 Albumin [Mass/Vol] 3.7 g/dL Normal 3.5-5.0 [facility] Comment on above: Performed By: #### L IPID, TSH, T7, URIC, CMP #### [facility] [address] [place] [address] Dr. Conor Chan Albumin/Globulin [Mass ratio] 0.9 {ratio} Normal [facility] Comment on above: Performed By: #### L IPID, TSH, T7, URIC, CMP #### [facility] [address] [place] [address] Dr. Conor Chan ALP [Catalytic activity/Vol] 58 U/L Normal 38-126 [facility] Comment on above: Performed By: #### L IPID, TSH, T7, URIC, CMP #### [facility] [address] [place] [address] Dr. Conor Chan ALT [Catalytic activity/Vol] 40 U/L Normal 21-72 [facility] Comment on above: Performed By: #### L IPID, TSH, T7, URIC, CMP #### [facility] [address] [address] [address] Conor Chan Anion gap [Moles/Vol] 5.5 mmol/L Normal [facility] Comment on above: Performed By: #### L IPID, TSH, T7, URIC, CMP #### [facility] [address] [address] [address] Conor Chan AST [Catalytic activity/Vol] 18 U/L Normal 17-59 [facility] Comment on above: Performed By: #### L IPID, TSH, T7, URIC, CMP #### [facility] [address] [place] [address] Dr. Conor Chan Bilirubin [Mass/Vol] 0.5 mg/dL Normal 0.2-1.3 [facility] Comment on above: Performed By: #### L IPID, TSH, T7, URIC, CMP #### [facility] [address] [place] [address] Dr. Conor Chan Calcium [Mass/Vol] 9.9 mg/dL Normal 8.4-10.2 [facility] Comment on above: Performed By: #### L IPID, TSH, T7, URIC, CMP #### [facility] [address] [place] [address] Dr. Conor Chan Chloride [Moles/Vol] 97 mmol/L Critically low 98-107 [facility] Comment on above: Performed By: #### L IPID, TSH, T7, URIC, CMP #### [facility] [address] [place] [address] Dr. Conor Chan CO2 [Moles/Vol] 30.7 mmol/L Critically high 22.0-30.0 [facility] Comment on above: Performed By: #### L IPID, TSH, T7, URIC, CMP #### [facility] [address] [place] [address] Dr. Conor Chan Creatinine [Mass/Vol] 1.04 mg/dL Normal 0.66-1.25 [facility] Comment on above: Performed By: #### L IPID, TSH, T7, URIC, CMP #### [facility] [address] [place] [address] Dr. Conor Chan EGFR-AF PUERTO RICAN >60 Normal >=60 [facility] Comment on above: Performed By: #### L IPID, TSH, T7, URIC, CMP #### [facility] [address] [place] [address] Dr. Conor Chan EGFR-NON AF PUERTO RICAN >60 Normal >=60 [facility] Comment on above: Performed By: #### L IPID, TSH, T7, URIC, CMP #### [facility] [address] [place] [address] Dr. Conor Chan Globulin (S) [Mass/Vol] 4.2 g/dL Normal [facility] Comment on above: Performed By: #### L IPID, TSH, T7, URIC, CMP #### [facility] [address] [place] [address] Dr. Conor Chan Glucose [Mass/Vol] 122 mg/dL Critically high 74-106 T [facility] Comment on above: Performed By: #### L IPID, TSH, T7, URIC, CMP #### [facility] [address] [place] [address] Dr. Conor Chan Potassium [Moles/Vol] 3.2 mmol/L Critically low 3.4-5.0 [facility] Comment on above: Performed By: #### L IPID, TSH, T7, URIC, CMP #### [facility] [address] [place] [address] Dr. Conor Chan Protein [Mass/Vol] 7.9 g/dL Normal 6.1-8.2 [facility] Comment on above: Performed By: #### L IPID, TSH, T7, URIC, CMP #### [facility] [address] [place] [address] Dr. Conor Chan Sodium [Moles/Vol] 130 mmol/L Critically low 137-145 Th [facility] Comment on above: Performed By: #### L IPID, TSH, T7, URIC, CMP #### [facility] [address] [place] [address] Dr. Conor Chan Urea nitrogen [Mass/Vol] 15.0 mg/dL Normal 9.0-20.0 [facility] Comment on above: Performed By: #### L IPID, TSH, T7, URIC, CMP #### [facility] [address] [place] [address] Dr. Conor Chan Urea nitrogen/Creatinin e [Mass ratio] 14.4 mg/mg Normal [facility] Comment on above: Performed By: #### L IPID, TSH, T7, URIC, CMP #### [facility] [address] [place] [address] Dr. Conor Chan TSHon 12-20-2021 TSH 2.122 uIU/mL Normal 0.470-4.680 [facility] Comment on above: Performed By: #### L IPID, TSH, T7, URIC, CMP #### [facility] [address] [place] [address] Dr. Conor Chan TSH RANGE SEE BELOW Normal [facility] Comment on above: Result Comment: <0.3 4 UIU/ml HYPERTHYROID 0.34-5.60 UIU/ml EUTHYROID >5.60 UIU/ml HYPOTHYROID Performed By: #### L IPID, TSH, T7, URIC, CMP #### [facility] [address] [place] [address] Dr. Conor Chan URIC ACID SERUMon 12-20-2021 Urate [Mass/Vol] 7.3 mg/dL Normal 3.5-8.5 [facility] Comment on above: Performed By: #### L IPID, TSH, T7, URIC, CMP #### [facility] [address] [place] [address] Dr. Conor Chan XR LSPINE MIN 4 [...] by: OSCAR FRANCO Date: 2021-12-20 10:06 Normal [facility] Vital Signs Date Time Vital Sign Value Performing Clinician Facility 07-14-2025 08:50-0400 Body height 182.9 cm Car LUCIANO Work Phone: [facility] 07-14-2025 08:50-0400 Body mass index (BMI) [Ratio] 37.51 kg/m2 Car LUCIANO Work Phone: [facility] 07-14-2025 08:50-0400 Body weight 125.47 kg Car LUCIANO Work Phone: [facility] 07-20-2024 13:29-0400 Blood Pressure Location Rell ADAMSON [facility] 07-20-2024 13:29-0400 Diastolic blood pressure 78 mm[Hg] Rell VALENCIAL [facility] 07-20-2024 13:29-0400 Heart rate 72 /min Rell ADAMSON [facility] 07-20-2024 13:29-0400 Respiratory rate 16 /min Rell ADAMSON [facility] 07-20-2024 13:29-0400 Systolic blood pressure 116 mm[Hg] Rell ADAMSON [facility] 07-08-2024 09:47-0400 Body height 182.9 cm Car LUCIANO Work Phone: [facility] 07-08-2024 09:47-0400 Body mass index (BMI) [Ratio] 36.84 kg/m2 Car LUCIANO Work Phone: [facility] 07-08-2024 09:47-0400 Body weight 123.2 kg Car LUCIANO Work Phone: [facility] 2023 08:03-0400 Body height 182.9 cm Juan R Ling MD Work Phone: [facility] 2023 08:03-0400 Body weight 120.2 kg Bilal Butt Work Phone: [facility] 06-02-2023 13:26-0400 Body height 182.9 cm Darren Elizabeth TRAFFIC OPERATIONS MANAGER.MARITIME OFFICER Work Phone: [facility] 06-02-2023 13:26-0400 Body weight 117.03 kg Darren Elizabeth TRAFFIC OPERATIONS MANAGER.MARITIME OFFICER Work Phone: [facility] 06-02-2023 13:26-0400 Diastolic blood pressure 84 mm[Hg] Darren Elizabeth TRAFFIC OPERATIONS MANAGER.MARITIME OFFICER Work Phone: [facility] 06-02-2023 13:26-0400 Heart rate 63 /min Darren Elizabeth APRN.MARITIME OFFICER Work Phone: [facility] 06-02-2023 13:26-0400 Respiratory rate 18 /min Darren Elizabeth APRN.MARITIME OFFICER Work Phone: [facility] 06-02-2023 13:26-0400 SaO2% (BldA) [Mass fraction] 95 % Darren Elizabeth TRAFFIC OPERATIONS MANAGER.MARITIME OFFICER Work Phone: [facility] 06-02-2023 13:26-0400 Systolic blood pressure 128 mm[Hg] Darren Elizabeth APRN.MARITIME OFFICER Work Phone: [facility] 05-13-2023 11:22-0400 Body height 182.88 cm Avi Archery Work Phone: [facility] 250 DO Work Phone: 05-13-2023 11:22-0400 Body mass index (BMI) [Ratio] 36.21 kg/m2 Avi Lauren Hoy Work Phone: [facility] 250 DO Work Phone: 05-13-2023 11:22-0400 Body surface area Derived from formula 2.41 m2 Avi M Hoy Work Phone: [facility] 250 DO Work Phone: 05-13-2023 11:22-0400 Body weight 121.11 kg Avi M Hoy Work Phone: [facility] 250 DO Work Phone: 05-13-2023 11:22-0400 Diastolic blood pressure 78 mm[Hg] Avi M Hoy Work Phone: [facility] 250 DO Work Phone: 05-13-2023 11:22-0400 Heart rate 64 /min Avi M Hoy Work Phone: [facility] [facility] DO Work Phone: 05-13-2023 11:22-0400 Systolic blood pressure 132 mm[Hg] Avi M Hoy Work Phone: [facility] [facility] DO Work Phone: 05-07-2022 11:36-0400 Body height 182.88 cm Avi M Hoy Work Phone: [facility] 250 DO Work Phone: 05-07-2022 11:36-0400 Body mass index (BMI) [Ratio] 38.38 kg/m2 Avi M Hoy Work Phone: [facility] 250 DO Work Phone: 05-07-2022 11:36-0400 Body surface area Derived from formula 2.47 m2 Avi M Hoy Work Phone: [facility] [facility] DO Work Phone: 05-07-2022 11:36-0400 Body weight 128.37 kg Avi M Hoy Work Phone: [facility] DO Work Phone: 05-07-2022 11:36-0400 Diastolic blood pressure 72 mm[Hg] Avi Yepez Work Phone: [facility] 250 DO Work Phone: 05-07-2022 11:36-0400 Heart rate 66 /min Avi Yepez Work Phone: [facility] DO Work Phone: 05-07-2022 11:36-0400 Systolic blood pressure 110 mm[Hg] Avi Aguilar Hoy Work Phone: [facility] [facility] DO Work Phone: Encounters Encounter Date Encounter Type Care Provider Facility Start: 07-14-2025 End: 07-14-2025 Bamboo flowsheet Car LUCIANO Work Phone: [facility] Start: 07-14-2025 End: 07-14-2025 Bamboo flowsheet Car LUCIANO Work Phone: [facility] Start: 07-14-2025 End: 07-14-2025 ambulatory Avi Yepez MD Work Phone: [facility] Work Phone: Start: 07-14-2025 End: 07-14-2025 Patient encounter procedure Car LUCIANO Work Phone: [facility] Comment on above: Pre-op examination ( Primary Dx); Arthritis of left knee Start: 07-14-2025 End: 07-14-2025 Preprocedural examination done Car LUCIANO Work Phone: [facility] Start: 07-04-2025 End: 07-04-2025 ambulatory Evelyne Polk MD Facility:[facility] Start: 06-17-2025 End: 06-17-2025 Bamboo flowsheet Car LUCIANO Work Phone: [facility] Start: 06-17-2025 End: 06-17-2025 Bamboo flowsheet Car LUCIANO Work Phone: [facility] Start: 06-13-2025 End: 06-13-2025 ambulatory Evelyne Polk MD Facility: [facility] Start: 04-20-2025 End: 04-20-2025 Bamboo flowsheet Jr. Elias Lewis Stepanic DO Work Phone: [facility] Start: 04-20-2025 End: 04-20-2025 Bamboo flowsheet Jr. Elias Saucedo Stepanic DO Work Phone: [facility] Start: 04-20-2025 End: 04-20-2025 Office outpatient visit 40 minutes Elias Lewis Stepanic DO Work Phone: [facility] Comment on above: Acute pain of left k nee (Primary Dx); Arthritis of left knee Start: 04-20-2025 End: 04-20-2025 ambulatory JR., ELIAS Lewis STEPMARIANO Not Available Start: 03-04-2025 End: 03-04-2025 ambulatory [facility] Start: 02-18-2025 End: 02-18-2025 Office outpatient visit 15 minutes Car LUCIANO Work Phone: [facility] Comment on above: Acute pain of left k nee (Primary Dx); Arthritis of left knee; Knee instability, left Start: 02-18-2025 End: 02-18-2025 ambulatory CAR CUELLAR Not Available Start: 12-13-2024 End: 12-13-2024 ambulatory Evelyne Polk MD Facility: [facility] Start: 09-09-2024 End: 09-09-2024 ambulatory [facility] Start: 09-08-2024 End: 09-08-2024 ambulatory Rell ADAMSON Facility: [facility] Start: 09-08-2024 End: 09-08-2024 Patient encounter procedure Rell ADAMSON [facility] Start: 08-30-2024 End: 08-30-2024 Bamboo flowsheet Car [...] 08-25-2024 ambulatory MD Avi Yepez Work Phone: [facility] Work Phone: Start: 08-25-2024 End: 08-25-2024 Departed Referred MD Avi Yepez Work Phone: [facility] Start: 08-25-2024 End: 08-25-2024 ambulatory Rell ADAMSON Facility:[id number] Start: 08-16-2024 End: 08-16-2024 Bamboo flowsheet [...] Refill Corona Son Danish ARNOLD Work Phone: [facility] Comment on above: Post-op pain (Primar y Dx) Start: 07-20-2024 End: 07-20-2024 ambulatory Rell Marr ANNIEClif Facility:[facility] Start: 07-20-2024 End: 07-20-2024 Patient encounter procedure Rell ADAMSON [facility] Start: 07-19-2024 End: 07-19-2024 Bamboo flowsheet Maria E Garnett PT [facility] Start: 07-19-2024 End: 07-19-2024 Bamboo flowsheet Maria E Garnett PT [facility] Start: 07-19-2024 End: 07-19-2024 ambulatory Maria E Garnett PT [facility] Comment on above: [...] Preprocedural examination done Car LUCIANO Work Phone: [facility] Start: 07-08-2024 End: 07-08-2024 ambulatory CAR CUELLAR Not Available Start: 07-05-2024 ambulatory Rell ADAMSON Facility:[facility] Start: 06-21-2024 End: 06-21-2024 Office outpatient visit 25 minutes Jr. Elias Thomas DO Work Phone: [facility] Comment on above: Internal derangement of left knee (Primary Dx) Start: 06-21-2024 End: 06-21-2024 ambulatory ELIAS EDEN Not Available Start: 06-11-2024 End: 06-11-2024 ambulatory [facility] Start: 06-09-2024 Non-patient / Non-visit MD Indra Yepez Work Phone: [facility] Work Phone: Start: 2023 End: 2023 ambulatory JUAN R LING Facility:[facility] Start: 2023 End: 2023 Office outpatient new 30 minutes Juan R Ling MD Work Phone: [facility] Comment on above: Meralgia paresthetic a of left side (Primary Dx); Chronic midline low back pain without sciatica Start: 08-01-2023 End: 08-01-2023 ambulatory Darren Elizabeth TRAFFIC OPERATIONS MANAGER.MARITIME OFFICER Work Phone: [facility] Comment on above: Dr chong Cut me open Start: 07-01-2023 End: 07-01-2023 ambulatory NIKOLAY CAMP Facility:[facility] Start: 06-26-2023 Telephone encounter Nikolay Camp DO Work Phone: [facility] Comment on above: Preparations For Pro cedures (Pre-injection instructions) Start: 06-19-2023 Orders Only Nikolay hall DO Work Phone: Neurology Comment on above: Lumbar radiculopathy (Primary Dx); Displacement of lumbar intervertebral disc without myelopathy Start: 06-02-2023 End: 06-03-2023 ambulatory DARREN ELIZABETH Facility:[facility] Start: 06-02-2023 End: 06-02-2023 Patient encounter procedure Darren Elizabeth TRAFFIC OPERATIONS MANAGER.MARITIME OFFICER Work Phone: [facility] Comment on above: Radiculopathy, lumba r region (Primary Dx); Lumbar disc herniation Start: 05-13-2023 Office outpatient vi sit 25 minutes Avi Yepez Work Phone: [facility] 250 DO Work Phone: Start: 05-13-[address] Reilly Nelson II Facility: Start: 05-06-2023 Chart abstracting None (Historical) Neurology Start: 12-16-2022 Rx Renewal Avi Yepez Work Phone: [facility] [facility] DO Work Phone: Start: 07-17-2022 End: 07-17-2022 Departed Referred MD Avi Yepez Work Phone: [facility] [address] Start: 05-07-2022 Office outpatient vi sit 25 minutes Avi Yepez Work Phone: [facility] 250 DO Work Phone: Start: 01-03-[address] AVI YEPEZ Facility :[facility] Start: 12-21-2021 Encounter for genera l adult medical examination without abnormal findings DR AVI YEPEZ [facility] Start: 12-20-2021 End: 12-21-[address] AVI YEPEZ Facility:[facility] Start: 12-20-2021 End: 12-21-2021 Encounter for general adult medical examination without abnormal findings DR AVI YEPEZ Facility:[facility] Start: 12-10-2021 Rx Renewal Reilly mcmahon MD Work Phone: [facility] 250 DO Work Phone: Procedures Date Procedure Procedure Detail Performing Clinician Start: 07-14-2025 Plain X-ray of bilateral tibia and bilateral fibula Avi Yepez MD Work Phone: Start: 07-14-2025 Plain X-ray of bilateral femurs Aiv Yepez MD Work Phone: Start: 02-18-2025 Arthrocentesis aspir&/inj major jt/bursa w/o us Car LUCIANO Work Phone: Start: 08-25-2024 Colonoscopy Car LUCIANO Work Phone: Start: 08-25-2024 Colonoscopy Rell NILL Start: 08-25-2024 Esophagogastroduodenoscopy Rell NILClif Start: 07-09-2024 ALL CBC WITH AUTO DIFF Car Farris Work Phone: Start: 07-17-2022 Radiologic examination of knee MD Puja Yepez Work Phone: Start: 12-20-[address] AVI YEPEZ Comment on above: Performed By: #### PSASC #### [facility] [address] [place] [address] Dr. Conor Chan Start: 06-09-2020 Total colonoscopy Reilly Nelson MD Work Phone: Start: 07-02-2019 End: 07-02-2019 Colonoscopy Darren Elizabeth APRN.MARITIME OFFICER Work Phone: Cardiac catheterization Will renetta Nelson MD Work Phone: Cardiac catheterization Jorge huang NILL Cholecystectomy Reilly miranda MD Work Phone: Cholecystectomy Rell NILL Nasal septoplasty Rell MORALEZ Plan of Treatment Date Care Activity Detail Author Start: 08-25-2034 Screening for malign ant neoplasm of colon [facility] Start: 07-02-2029 Screening for malign ant neoplasm of colon [facility] Start: 12-20-2026 PROSTATE CANCER SCREENING DISCUSSION PROSTATE CANCER SCREENING DISCUSSION [facility] Start: 08-25-2025 End: 08-25-2025 Patient encounter procedure 08/25/2025 1:30 PM EDT Office Visit [facility] [address] [place] [address] Corona Peng NP [address] [place] [address] [facility] Start: 07-14-2025 End: 07-14-2026 aPTT in Blood by Coagulation assay APTT Lab Routine Arthritis of left knee Pre-op examination Expected: 07/14/2025, Expires: 07/14/2026 [facility] Work Phone: Comment on above: Expected: 07/14/2025 , Expires: 07/14/2026 Start: 07-14-2025 End: 07-14-2026 Bacteria identified in Urine by Culture Urine culture Microbiology Routine Arthritis of left knee Pre-op examination Expected: 07/14/2025 (Approximate), Expires: 07/14/2026 [facility] Comment on above: Expected: 07/14/2025 (Approximate), Expires: 07/14/2026 Start: 07-14-2025 End: 07-14-2026 CBC W Auto Differential panel - Blood CBC and differential Lab Routine Arthritis of left knee Pre-op examination Expected: 07/14/2025 (Approximate), Expires: 07/14/2026 [facility] Comment on above: Expected: 07/14/2025 (Approximate), Expires: 07/14/2026 Start: 07-14-2025 End: 07-14-2026 Comprehensive metabolic 2000 panel - Serum or Plasma Comprehensive metabolic panel Lab Routine Arthritis of left knee Pre-op examination Expected: 07/14/2025 (Approximate), Expires: 07/14/2026 [facility] Comment on above: Expected: 07/14/2025 (Approximate), Expires: 07/14/2026 Start: 07-14-2025 End: 07-14-2026 ECG 12 lead ECG 12 lead ECG Routine Arthritis of left knee Pre-op examination Expected: 07/14/2025 (Approximate), Expires: 07/14/2026 [facility] Comment on above: Expected: 07/14/2025 (Approximate), Expires: 07/14/2026 Start: 07-14-2025 End: 07-14-2026 Prothrombin time (PT) in Blood by Coagulation assay Protime-INR Lab Routine Arthritis of left knee Pre-op examination Expected: 07/14/2025 (Approximate), Expires: 07/14/2026 [facility] Comment on above: Expected: 07/14/2025 (Approximate), Expires: 07/14/2026 Start: 07-14-2025 End: 07-14-2026 Urinalysis complete panel - Urine Urinalysis with reflex microscopic Lab Routine Arthritis of left knee Pre-op examination Expected: 07/14/2025 (Approximate), Expires: 07/14/2026 [facility] Comment on above: Expected: 07/14/2025 (Approximate), Expires: 07/14/2026 Start: 07-14-2025 End: 07-14-2026 XR Femur and Tibia Views for leg length XR lower extremity leg length evaluation Imaging Routine Arthritis of left knee Pre-op examination Expected: 07/14/2025 (Approximate), Expires: 07/14/2026 [facility] Comment on above: Expected: 07/14/2025 (Approximate), Expires: 07/14/2026 Start: 07-14-2025 End: 07-14-2025 Patient encounter procedure [facility] Comment on above: Pre-op examination ( Primary Dx); Arthritis of left knee Start: 06-27-2025 Influenza vaccination Influenza Vacc ine (#1) [facility] Start: 06-17-2025 End: 06-17-2025 Patient encounter procedure [facility] Comment on above: Acute pain of left k nee (Primary Dx) Start: 04-20-2025 End: 04-20-2025 Patient encounter procedure 04/20/2025 8:30 AM EDT Office Visit [facility] [address] [place] [address] Jr. Elias Thomas, DO [address] [place] [address] Arrived [facility] Comment on above: Arrived Start: 08-30-2024 End: 08-30-2024 Patient encounter procedure 08/30/2024 10:15 AM EST Office Visit [facility] [address] [place] [address] Car Cuellar, PA [address] [place] [address] S/P left knee arthroscopy (Primary Dx) [facility] Comment on above: S/P left knee arthro scopy (Primary Dx) Start: 08-25-2024 [facility] Start: 08-16-2024 End: 08-16-2024 Patient encounter procedure 08/16/2024 10:00 AM EDT Office Visit [facility] [address] [place] [address] Car Cuellar, PA [address] [place] [address] S/P left knee arthroscopy (Primary Dx) [facility] Comment on above: S/P left knee arthro scopy (Primary Dx) Start: 08-12-2024 End: 08-12-2024 Patient encounter procedure 08/12/2024 9:00 AM EDT Office Visit [facility] [address] [place] [address] Car Cuellar, PA [address] [place] [address] [facility] Start: 07-29-2024 End: 07-29-2024 Patient encounter procedure 07/29/2024 10:45 AM EDT Procedure Visit [facility] Jr. Elias Thomas DO [address] [place] [address] [facility] Start: 07-19-2024 End: 07-19-2024 ambulatory [facility] Comment on above: Internal derangement of left knee Start: 07-08-2024 End: 07-08-2025 CBC W Auto Differential panel - Blood CBC and differential Lab Routine Preop examination Expected: 07/08/2024 (Approximate), Expires: 07/08/2025 [facility] Work Phone: Comment on above: Expected: 07/08/2024 (Approximate), Expires: 07/08/2025 Start: 07-08-2024 End: 07-08-2024 Patient encounter procedure 07/08/2024 10:00 AM EDT Office Visit [facility] [address] [place] [address] Car Cuellar PA [address] [place] [address] Preop examination (Primary Dx); Internal derangement of left knee [facility] Comment on above: Preop examination (P rimary Dx); Internal derangement of left knee Start: 06-27-2024 Influenza vaccination Influenza Vacc ine (#1) [facility] Start: 06-27-2023 Influenza vaccination [facility] Start: 05-13-2023 FUV, Provider: Reilly Nelson, Status: Pen, Time: 11:10 AM FUV, Provider: Reilly Nelson, Status: Pen, Time: 11:10 AM [facility] [employer] 250 DO Work Phone: Start: 10-27-2022 DEPRESSION ASSESSMENT DEPRESSION ASS ESSMENT [facility] Start: 05-17-2022 COVID-19 VACCINE (6 - Pfizer series) COVID-19 VACCINE (6 - Pfizer series) [facility] Start: 05-15-2022 FUV, Provider: Reilly Nelson, Status: Pen, Time: 2:00 PM FUV, Provider: Reilly Nelson, Status: Pen, Time: 2:00 PM [facility] [employer] 250 DO Work Phone: Start: 07-02-2020 Colonoscopy COLONOSCOPY [facility] Start: 07-02-2020 COLORECTAL CANCER SCREENING COLORECTAL CANCER SCREENING [facility] Start: 2016 Prostate Cancer Screening Discussion Prostate Cancer Screening Discussion [facility] Start: 2011 SHINGRIX VACCINE (1 of 2) SHINGRIX VACCINE (1 of 2) [facility] Start: 2006 COLOGUARD (FIT-DNA) COLOGUARD (FIT-D NA) [facility] Start: [address] COLONOGRAPHY [facility] Start: 2006 DIABETES SCREEN DIABETES SCREEN [facility] Start: 2006 Diabetes Screening Diabetes Screenin g [facility] Start: 2006 FECAL OCCULT BLOOD FECAL OCCULT BLOO D [facility] Start: 2006 SIGMOIDOSCOPY SIGMOIDOSCOPY [facility] Start: 1996 Lipid 1996 panel - Serum or Plasma Lipid Screening [facility] Start: 1996 LIPID SCREEN LIPID SCREEN [facility] Start: 1980 Urine microalbumin profile [facility] Start: 1979 HEPATITIS C SCREENING HEPATITIS C SC REENING [facility] Start: 1979 HIV SCREENING HIV SCREENING [facility] Start: 1961 Screening for malign ant neoplasm of colon [facility] End: 09-02-2024 Radex spine lumbosacral minimum 4 views XR LUMBAR MOTION 4V AP/LAT/ FLEX/EXT Radiology Routine Meralgia paresthetica of left side 1 Occurrences starting 2023 until 09/02/2024 [facility] Work Phone: Comment on above: 1 Occurrences starti ng 2023 until 09/02/2024 SPINE INTERVENTION PROCEDURE SPINE INTERVENTION PROCEDURE Procedures Routine Radiculopathy, lumbar region Lumbar disc herniation Ordered: 06/02/2023 [facility] Work Phone: Comment on above: Ordered: 06/02/2023 [facility] Immunizations Immunization Date Immunization Notes Care Provider Fa genity 09-03-2024 influenza virus vaccine, unspecified formulation Car LUCIANO Work Phone: [facility] 09-12-2023 influenza virus vaccine, unspecified formulation Jr. William PEREIRA Work Phone: [facility] [place] 10-14-2022 Pfizer COVID-19 Vac Bivalent 30 MCG/0.3ML Intramuscular Suspension Avi M Hoy Work Phone: [facility] 10-03-2022 influenza, injectabl e, quadrivalent, preservative free Avi Archery Work Phone: [facility] 250 DO Work Phone: 10-03-2022 influenza virus vaccine, unspecified formulation Darren Elizabeth APRN.MARITIME OFFICER Work Phone: [facility] 03-22-2022 Comirnaty 30 MCG/0.3 ML Intramuscular Suspension Avi Aguilar Hoy Work Phone: [facility] 250 DO Work Phone: 03-22-2022 Moderna COVID-19 Vaccine 100 MCG/0.5ML Intramuscular Suspension Avi Yepez Work Phone: [facility] Comment on above: Series: 03-22-2022 SARS-CoV-2 mRNA (lzbxdkddpfj-ueht-gxvek se) vaccine Rell ADASMON [facility] 03-22-2022 zoster vaccine recombinant Avi Yepez Work Phone: [facility] 250 DO Work Phone: 09-03-2021 Pfizer-BioNTech COVID-19 Vacc 30 MCG/0.3ML Intramuscular Suspension Avi Yepez Work Phone: [facility] 08-25-2021 influenza virus vaccine, unspecified formulation Rell ADAMSON [facility] 08-25-2021 influenza, injectabl e, quadrivalent, preservative free Avi Yepez Work Phone: [facility] 250 DO Work Phone: 08-25-2021 zoster vaccine recombinant Avi Archery Work Phone: [facility] 250 DO Work Phone: 02-13-2021 Pfizer-BioNTech COVID-19 Vacc 30 MCG/0.3ML Intramuscular Suspension Avi Yepez Work Phone: [facility] 01-20-2021 SARS-CoV-2 (COVID-19 ) mRNA BNT-162b2 mariselax Rell ADAMSON [facility] 01-13-2021 Pfizer-BioNTech COVID-19 Vacc 30 MCG/0.3ML Intramuscular Suspension Avi Yepez Work Phone: [facility] 12-23-2020 Pfizer-BioNTech COVID-19 Vacc 30 MCG/0.3ML Intramuscular Suspension Avi Yepez Work Phone: [facility] 08-28-2020 influenza, injectabl e, quadrivalent, preservative free Avi Yepez Work Phone: [facility] 250 DO Work Phone: 08-28-2020 influenza virus vaccine, unspecified formulation Juan R Ling MD Work Phone: [facility] Payers Date Payer Category Payer Self-pay [id number] 2021 Private Health Insurance [id number] 2007 Managed Care HMO (unspecified) [id number] 1961 Unknown [id number] 1961 Unknown [id number] [id number] 1961 Unknown [id number] [id number] 1961 Unknown [id number] [id number] 1961 Unknown [id number] [id number] 1961 Unknown [id number] 2.16.840.1.381389.3.579.2.727 1961 Unknown [id number] 2.16.840.1.000752.3.579.2.125 9 1961 Unknown [id number] 2.16.840.1.660204.3.579.2.125 9 1961 Unknown [id number] 2.16.840.1.523745.3.579.2.125 9 1961 Unknown [id number] 2.16.840.1.195417.3.579.2.125 9 1961 Unknown [id number] 2.16.840.1.539368.3.579.2.125 9 1961 Unknown [id number] 2.16.840.1.889197.3.579.2.125 9 1961 Unknown [id number] 2.16.840.1.920724.3.579.2.125 9 1961 Unknown [id number] 2.16.840.1.169624.3.579.2.196 1961 Unknown [id number] 2.16.840.1.954750.3.579.2.196 1961 Unknown [id number] [id number] 1959 Private Health Insurance [id number] Self-pay [id number] Unknown Unknown [facility] [id number] Unknown [id number] Social History Date Type Detail Facility Start: 06-02-2023 End: 07-14-2025 Consumes alcohol Consumes alcohol [facility] Comment on above: socially; occasional; Start: 09-28-2020 End: 05-10-2024 Tobacco smoking status NHIS Never smoked tobacco (finding) [facility] Start: 1960 Sex Assigned At Male [facility] Tobacco smoking stat us NHIS Tobacco smoking consumption unknown [facility] Start: 1960 Sex Assigned At Not on file [facility] Start: 06-02-2023 End: 07-14-2025 Gender identity Not on file [facility] Start: 06-02-2023 End: 05-10-2024 Tobacco use and exposure Smokeless tobacco non-user [facility] National Score (1-10 0), lower number is lower risk 61 [facility] Start: 07-28-2023 Gender identity Identifies as male gender (finding) [facility] Start: 07-28-2023 Sexual orientation Heterosexual (fin ding) [facility] Start: 07-08-2024 End: 07-14-2025 Alcoholic beverage intake Current drinker of alcohol (finding) [facility] Start: 05-10-2024 Alcohol Comment 1/WK [facility] Sex Male (finding) [facility] Functional Status Date Assessment Result Facility 09-08-2024 Functional Status N/A [facility] [place] 07-20-2024 Functional Status N/A [facility] Clinical Notes 05-06-2023 to 07-14-2025 ANKITA Stapleton - 07/14/2025 9:00 AM EDTJrHerbie Thomas, - 04/20/2025 8:30 AM ANKITA Burgos - 02/18/2025 9:00 AM ANKITA Burgos - 08/30/2024 10:15 AM EST Note Date & Type Note Facility 07-14-2025 History of Present illness Narrative Images from the original note were not included. GENERAL HISTORY AND PHYSICAL: NAME: Kim Nichols : 1960 HISTORY OF PRESENT ILLNESS: Kim Nichols is an 64 y.o. @ male. Here for surgery instructions left total knee arthroplasty August 11 @ [facility]. PAST MEDICAL HISTORY: Past Medical History: Diagnosis Date A-fib (HCC) GERD (gastroesophageal reflux disease) High cholesterol Hypertension PAST SURGICAL HISTORY: Past Surgical History: Procedure Laterality Date CHOLECYSTECTOMY 1996 CHOLECYSTECTOMY KNEE ARTHROSCOPY W/ MENISCECTOMY Right 07/29/2024 DR THOMAS SOCIAL HISTORY: Social History Occupational History Not [...] (NEURONTIN) 300 mg, 2 times daily HYDROcodone-acetaminophen (Orwell) 5-325 MG tablet No dose, route, or frequency recorded. Iron Polysacch [id number] (Poly-Iron 150 Forte) 150-0.025-1 MG capsule 1 [...] numbness. Vitals: Body mass index is 37.51 kg/m . PHYSICAL EXAM: Physical Exam Constitutional: [...] therapy for LT TKA August 11 @ [facility] Standing Status: Future Expected Date: 07/14/2025 Expiration Date: 01/11/2026 Referral Priority: Routine Referral Type: Rehabilitation - Outpatient Referral Reason: Specialty Services Required Referred to Provider: Issa Robbins PT Requested Specialty: Physical Therapy Number of [...] Gluconate (Hibiclens) 4 % solution Iron Polysacch [id number]-M05-GG (Poly-Iron 150 Forte) 150-0.025-1 MG capsule CANCELED: [...] reasonably complete activities of daily living such as prepping and cooking meals, grocery shopping , getting [...] August 25 2 1:30 with [facility] in [place] . documented in this encounter [facility] 04-20-2025 History of Present illness Narrative Images [...] or the patient requires discharge to a custodial facility, the patient may require to have additional inpatient hospital stay days following the surgery. Physical therapy is contraindicated in this patient''s case because of the zwuk-ux-guad articulation of the patient's knee.. Questions answered in laymen terms at the bedside. The diagnosis, home exercise plan and any ongoing restrictions/ recommendations reviewed. If unable to be reached in office, I recommend evaluation at nearest Emergency Room if any symptoms worsened or new symptoms develop for requiring urgent evaluation. Visit was preformed using [employer] pilot speech recognition. documented in this encounter [facility] 03-04-2025 Note MA Cardiology - [facility] Subjective Kim Nichols is a [...] and he had carotid stenosis, sister had ND, mother had brain aneurysm ROS All systems [...] twice a day., Disp: , Rfl: HYDROcodone-acetaminophen (Orwell) 5-325 mg tablet, Take 1 tablet by [...] in (more content not included)... [facility] 02-18-2025 History of Present illness Narrative Associated [...] Current pain management routine includes taking 2 Orwell before activity, which is not recommended. Discussed [...] requiring urgent evaluation. Visit was preformed using [employer] pilot speech recognition. documented in this encounter [facility] 09-09-2024 Note Cardiology Clinic No te Chief [...] as needed Richard Benitez MD Interventional Cardiology [facility] 08-30-2024 History of Present illness Narrative [...] encounter [facility] 08-16-2024 History of Present illness Narrative Images [...] symptoms from before surgery.. Pt going to [place] in December.. pt denies any catching or [...] tab(s), Oral, Ivy (more content not included)... [facility] Comment on above: Result Comment: Elec [...] encounter [facility] 07-08-2024 History of Present illness Narrative Images [...] Answer: No Ambulatory referral to Physical Therapy [facility] ; PLEASE CALL PATIENT TO [...] MONTEZ INSTRUCTIONS GIVEN TODAY 07/08 @10AM - [place] [facility] ; [facility] S[facility] ; [facility] TRA[facility] DISPENSE NPAR ([id number], [id number]) Follow up for 08/12 @9AM W/AMANDA IN [place]. documented in this encounter [facility] 06-21-2024 History of Present illness Narrative Images from the original note were not included. HISTORY OF PRESENT ILLNESS: EST PT Kim Nichols is an 63 y.o. @ male. EST PT RECHECK LT KNEE PAIN - POSSIBLY DISCUSS SURGERY- PT WAS GETTING A CARDIAC WORK UP- PT DID SEE DR BENITEZ (ORDER DEPARTMENT SUPERVISOR) 06/11/24; PT STATES HE IS CLEARED (OFFICE NOT IS UNDER ENCOUNTER) PT STATES HE WAS ADMITTED TO [facility] FOR A-FIB X 1DAY ~05/17/24 XRAY LT KNEE EPIC 05/10/24 XRAY LT KNEE [facility] 03/12/24 MRI LT KNEE [facility] 04/28/24 CORTISONE INJ 03/2024; TEMP RELIEF [...] Risk (06/11/2024) Received from [facility] Patient History Smoking Tobacco Use: Never Smokeless [...] states that he was cleared per his event set up specialist ; we will need to obtain [...] cardiac (more content not included)... [facility] 2023 Note HNO ID: [id number] Author: Juan R Ling MD Service: ? [...] issues. 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 [facility] 2023 Note HNO ID: [id number] Author: Bossman Saunders Service: ? Author Type: [...] opioids Medications: See medication reconciliation list in [facility] MEDICATIONS: Gabapentin, Orwell, Tylenol Have you ever seen a pain [...] routine daily living activities? No Bossman Escoto [facility] 2023 History of Present illness Narrative [...] issues. 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 Author Type: Nurse Practitioner Type: Progress Notes Filed: 08/01/2023 1:30 PM Note Text: SPINE SURGERY ESTABLISHED VISIT This is a virtual visit using [employer] Video Visit. It required patient-provider interaction for the medical decision making as documented below. DATE OF SERVICE: 08/01/2023 DATE OF LAST VISIT: 06/02/2023 SUBJECTIVE: HPI:Kim Nichols is a 62 year old male presenting via virtual vist s/p Left L5 transforaminal epidural steroid injection on 07/01/[address] Camp. Norco great initially and for the first few [...] which included preparing to see the patient, [id number] patient care, completing clinical documentation, obtaining and/or reviewing separately obtained history, performing a medically appropriate examination, counseling and educating the patient/family/caregiver, independently interpreting results (not separately reported), and communicating results to the patient/family/caregiver. SIGNATURE: Darren Elizabeth APRN.CNP PATIENT NAME: Kim Nichols DATE: August 01, 2023 TIME: 12:53 PM PAGER: [facility] 06-26-2023 Miscellaneous Notes Phoned patient and message left for Kim to confirm appointment for Kim Nichols for spine procedure on 07/01/2023. Patient notified that Emmet will call patient the night before with the time to arrive for injection. Patient verbalized understanding of the following: -Provided education on spine procedure and answered questions related to spine injection procedure. -Limited Radiology Technician is needed to drive patient home. [...] to report. Diabetic: No Patient given number [phone], spine injections schedulers, if there is any need to reschedule/ change appointment during normal business hours. Active MyChart users were informed to read PANOSOLhart procedure instructions prior to appointment. AMBULATORY PATIENT [...] POST INJECTION INSTRUCTIONS documented in this encounter [facility] 06-02-2023 Note HNO ID: [id number] Author: Darren Elizabeth APRN.KIRILL Service: ? Author [...] with him pain. He also is prescribed Orwell for breakthrough pain which he only takes [...] Normal. DATA REVIE (more content not included)... [facility] 06-02-2023 History of Present illness Narrative [...] with him pain. He also is prescribed Orwell for breakthrough pain which he only takes [...] which included preparing to see the patient, [id number] patient care, completing clinical documentation, obtaining and/or reviewing separately obtained history, performing a medically appropriate examination, counseling and educating the patient/family/caregiver, independently interpreting results (not separately reported), and communicating results to the patient/family/caregiver. SIGNATURE: Darren Elizabeth APRN.CNP PATIENT NAME: Kim Nichols DATE: June 02, 2023 TIME: 1:57 PM PAGER: documented in this encounter [facility] 05-14-2023 Note HNO ID: [id number] Author: Ember Delatorre PA-C Service: ? Author Type: Physician Teasel Gig Operator Type: Progress Notes Filed: 05/14/2023 4:17 PM Note Text: Per Triage: Kim Nichols is a 62 year old male that requests evaluation of lumbar spine. Per review, they have symptoms of back and LLE pain. Positive for numbness. CMT: Medication: Gabapentin, Tylenol, Orwell Studies (Reports unless indicated) MRI Lumbar: L4/5 moderate left foramen narrowing which may contribute to patient's symptoms 2. L5/S1 disc protrusion without significant canal or foramen narrowing. Disposition: Please schedule with surgical SANDY. Consider if injection is appropriate or on effective dose of Neurontin. Also see if symptoms correlate with imaging. [facility] 05-14-2023 History of Present illness Narrative Per Triage: Kim Nichols is a 62 year old male that requests evaluation of lumbar spine. Per review, they have symptoms of back and LLE pain. Positive for numbness. CMT: Medication: Gabapentin, Tylenol, Orwell Studies (Reports unless indicated) MRI Lumbar: L4/5 [...] Health Provider or Pain Management Provider at [facility]? No If answer is YES please schedule [...] facility where the MRI/CT/myelogram was completed: [facility] [address] [place] [address] MRI/CT/myelogram viewable in [facility]: No If not, please provide [phone] to fax in imaging reports for review. [...] Additional Comments Hydrocodone documented in this encounter [facility] 05-06-2023 Note HNO ID: [id number] Author: Mauricio Kelley Service: ? Author Type: ? Type: Progress Notes Filed: 05/14/2023 4:17 PM Note Text: Patient name: Kim Nichols Are you being referred by a [facility] Provider or Pain Management Provider at [facility]? No If answer is YES please schedule [...] facility where the MRI/CT/myelogram was completed: The [address] [address] MRI/CT/myelogram viewable in Epic: No If not, please provide [phone] to fax in imaging reports for review. [...] the surgery was completed: Additional Comments Hydrocodone [facility] Evaluation + Plan note No data available for this section [facility] [place] note No assessment inform ation available [facility] Work Phone: Evaluation note Diagnosis Radiculopathy, lumbar region- Primary Thoracic or lumbosacral neuritis or radiculitis, unspecified Lumbar disc herniation Displacement of lumbar intervertebral disc without myelopathy [facility] Diagnosis Lumbar radiculopathy- Primary Thoracic or lumbosacral neuritis or radiculitis, unspecified Displacement of lumbar intervertebral disc without myelopathy [facility] Diagnosis Meralgia paresthetica of left side- Primary Meralgia paresthetica Chronic midline low back pain without sciatica documented [facility] Diagnosis Post-op pain- Primary Other acute postoperative pain documented in this encounter [facility]* Diagnosis S/P left knee arthroscopy- Primary documented in this encounter [facility]* Diagnosis S/P left knee arthroscopy- Primary documented in this encounter [facility]* Diagnosis Preop examination- Primary Unspecified pre-operative examination Internal derangement of left knee documented in this encounter [facility]* Diagnosis Internal derangement of left knee- Primary documented in this encounter [facility]* Diagnosis Internal derangement of left knee- Primary Need for crutch training documented in this encounter [facility]* Diagnosis Acute pain of left knee- Primary Arthritis of left knee Knee instability, left documented in this encounter [facility]* Diagnosis Acute pain of left knee- Primary Arthritis of left knee documented in this encounter [facility]* Diagnosis Pre-op examination- Primary Arthritis of left [...] to their favorable impact on blood pressure andcholesterol.[facility] 250 DO Work Phone: History of Present [...] to call if they arise or occur. [facility] 250 DO Work Phone: History of [...] to call if they arise or occur. [facility] 250 DO Work Phone: Hospital Discharge instructions No data available for this section [facility] Progress note No data available for this section [facility] Reason for referral (narrative)* Diagnostic Procedure Only (Routine) - Pending Review Specialty Diagnoses / Procedures Referred By Contac t Referred To Contact XR IMAGING Diagnoses Meralgia paresthetica of left side Procedures XR LUMBAR MOTION 4V AP/LAT/ FLEX/EXT RADEX SPINE LUMBOSACRAL MINIMUM 4 VIEWS Juan R Ling MD [address] [place] [address] [place] [address] Referral ID Status Reason Start Date Expiration Date Visits Requested Visits Authorized [id number] Pending Review Auto-Generat ed Referral 2023 09/02/2024 1 1 [facility] for referral (narrative)* Consultation (Routine) - Pending Review Specialty Diagnoses / Procedures Referred By Contac t Referred To Contact Physical Therapy Diagnoses Internal derangement of left knee Procedures MT OFFICE/OUTPATIENT NEW HIGH MDM 60 MINUTES Car Cuellar PA [address] [place] [address] [facility] [address] [place] [address] Referral ID Status Reason Start Date Expiration Date Visits Requested Visits Authorized [id number] Pending Review Consult and Treat 07/01/2024 12/28/2024 1 1 [facility]No reason for referral [facility] Work [facility]: Summary Purpose Family History Unknown Family Member [...] being seen for an annual follow-up of.KIM NICHOSL is being seen for an annual follow-up of. Chief Complaint and Reason for Visit Chief Complaint X-ray Chief Complaint Unknown Chief Complaint Admit Date M17.12 z01.818 July 14, 2025 9:39am Additional Source Comments (unrecognized sect ion and content) No Status Records FoundNo Status Records FoundNo Status Records FoundNo Status Records FoundNo Status Records FoundNo Status Records FoundNo Status Records FoundNo Status Records FoundNo Status Records FoundNo Status Records Found INFORMATION SOURCE (unrecogn ized section and content) DATE CREATED AUTHOR 01/05/2022 [facility] DATE CREATED AUTHOR AUTHOR'S ORGANIZ ATION 05/14/2023 [facility] DATE CREATED AUTHOR AUTHOR'S ORGANIZ ATION 05/14/2023 [employer] DATE CREATED AUTHOR AUTHOR'S ORGANIZ ATION 2023 [facility] DATE CREATED AUTHOR AUTHOR'S ORGANIZ ATION 08/05/2023 [facility] DATE CREATED AUTHOR AUTHOR'S ORGANIZ ATION 09/01/2024 [facility] DATE CREATED AUTHOR AUTHOR'S ORGANIZ ATION 09/10/2024 [facility] DATE CREATED AUTHOR AUTHOR'S ORGANIZ ATION 03/06/2025 [facility] DATE CREATED AUTHOR AUTHOR'S ORGANIZ ATION 06/19/2025 [facility] EPIC DATE CREATED AUTHOR AUTHOR'S ORGANIZ ATION 07/10/2025 [facility] Care Teams (unrecognized sec tion and content) Team Status: Active Member Role Status Dates Avi Yepez MD Primary Care Provider Active Team Status: Inactive Member Role Status Dates Avi Yepez MD Primary Care Provider Active Start: July 14, 2025 End: July 14, 2025 Car Cuellar PA-C Attending Provider Active Start: July 14, 2025 End: July 14, 2025 Team Status: Active Member Role Status Dates [...] End: August 25, 2024 Rell Adamson MD [facility] Attending Provider Active Start: August 25, 2024 End: August 25, 2024 Team Status: Inactive Member Role Status Dates Avi Yepez MD Primary Care Provider Active Bijan Betts Jr, DO Attending Provider Active Pyrometer Operator Relationship Specialty Start Date End Date Avi Yepez MD [address] [facility] [place] [address] Referring Family Medicine 04/24/23 Pyrometer Operator Relationship Specialty Start Date End Date Avi Yepez MD [address] [facility] [place] [address] Referring Family Medicine 04/24/23 Pyrometer Operator Relationship Specialty Start Date End Date Avi Yepez MD [address] [facility] [place] [address] Referring Family Medicine 04/24/23 Pyrometer Operator Relationship Specialty Start Date End Date Avi Yepez MD [address] [facility] [place] [address] PCP - General Family Medicine 06/25/23 Avi Yepez MD [address] [facility] [place] [address] Referring Family Medicine 04/24/23 Pyrometer Operator Relationship Specialty Start Date End Date Avi Yepez MD [address] [facility] [place] [address] PCP - General Family Medicine 06/25/23 Avi Yepez MD [address] [facility] [place] [address] Referring Family Medicine 04/24/23 Pyrometer Operator Relationship Specialty Start Date End Date Avi Yepez MD [address] [facility] [place] [address] PCP - General Family Medicine 06/25/23 Avi Yepez MD [address] [facility] [place] [address] Referring Family Medicine 04/24/23 Pyrometer Operator Relationship Specialty Start Date End Date Avi Yepez MD [address] [place] [facility] [place] [address] PCP - General 05/05/24 Pyrometer Operator Relationship Specialty Start Date End Date Avi Yepez MD [address] [place] [address] PCP - General 05/05/24 Pyrometer Operator Relationship Specialty Start Date End Date Avi Yepez MD [address] [place] [place] [address] PCP - General 05/05/24 Pyrometer Operator Relationship Specialty Start Date End Date Avi Yepez MD [address] [place] [address] PCP - General 05/05/24 Pyrometer Operator Relationship Specialty Start Date End Date Avi Yepez MD [address] [place] [address] PCP - General 05/05/24 Pyrometer Operator Relationship Specialty Start Date End Date Avi Yepez MD [address] [place] [address] PCP - General 05/05/24 Pyrometer Operator Relationship Specialty Start Date End Date Avi Yepez MD [address] [place] [address] PCP - General 05/05/24 Pyrometer Operator Relationship Specialty Start Date End Date Avi Yepez MD [address] [place] [address] PCP - General 05/05/24 Pyrometer Operator Relationship Specialty Start Date End Date Avi Yepez MD [address] [place] [place] [address] PCP - General 05/05/24 Pyrometer Operator Relationship Specialty Start Date End Date Avi Yepez MD [address] [place] [address] PCP - General 05/05/24 Pyrometer Operator Relationship Specialty Start Date End Date Avi Yepez MD PCP - General 05/05/24 Pyrometer Operator Relationship Specialty Start Date End Date Avi Yepez MD PCP - General 05/05/24 Pyrometer Operator Relationship Specialty Start Date End Date Avi Yepez MD [address] [place] [place] [address] PCP - General Family Medicine 06/17/25 Pyrometer Operator Relationship Specialty Start Date End Date Avi Yepez MD [address] [place] [place] [address] PCP - General Family Medicine 06/17/25 Pyrometer Operator Relationship Specialty Start Date End Date Avi Yepez MD [address] [place] [address] PCP - General Family Medicine 06/17/25 Team Status: Inactive Member Role Status Dates Avi Yepez MD Primary Care Provider Active Start: July 14, 2025 End: July 14, 2025 Car Cuellar PA-C Attending Provider Active Start: July 14, 2025 End: July 14, 2025 Goals (unrecognized section and content) Goals may be documented in a n alternate section No data available for this sectionGoals may be documented in an alternate section No data available for this sectionGoals may be documented in an alternate section Source Comments (unrecognize d section and content) In the event this informatio n is protected by the Federal Confidentiality of Alcohol and Drug Abuse Patient Records regulations: The Federal rules restrict any use of the information to criminally investigate or prosecute any alcohol or drug abuse patient.[facility] the event this information is protected by the Federal Confidentiality of Alcohol and Drug Abuse Patient Records regulations: The Federal rules restrict any use of the information to criminally investigate or prosecute any alcohol or drug abuse patient.[facility] the event this information is protected by the Federal Confidentiality of Alcohol and Drug Abuse Patient Records regulations: The Federal rules restrict any use of the information to criminally investigate or prosecute any alcohol or drug abuse patient.[facility] the event this information is protected by the Federal Confidentiality of Alcohol and Drug Abuse Patient Records regulations: The Federal rules restrict any use of the information to criminally investigate or prosecute any alcohol or drug abuse patient.[facility] Center[facility] the event this information is protected by the Federal Confidentiality of Alcohol and Drug Abuse Patient Records regulations: The Federal rules restrict any use of the information to criminally investigate or prosecute any alcohol or drug abuse patient.[facility] Center[facility] the event this information is protected by the Federal Confidentiality of Alcohol and Drug Abuse Patient Records regulations: The Federal rules restrict any use of the information to criminally investigate or prosecute any alcohol or drug abuse patient.[facility] Reason for Visit (unrecogniz ed section and content) Reason Comments New Patient Reason Comments Preparations For Procedures Pre-injectio n instructions Reason Comments Low Back Pain New Patient Evaluation Reason Comments Pain Post-op Reason Comments Pain Reason Comments Pain Specialty Diagnoses / Procedures Referred By Contac t Referred To Contact Physical Therapy Diagnoses Internal derangement of left knee Procedures MT OFFICE/OUTPATIENT NEW HIGH MDM 60 MINUTES Car Cuellar, ANKITA [address] [facility] [address] [place] [address] Maria E Peck, EFRA Referral ID Status Reason Start Date Expiration Date Visits Requested Visits Authorized [id number] Authorized Consult and Treat 07/01/2024 12/28/2024 60 60 Reason Comments Pre-op Visit FOR RECORDS PERTAINING TO PATIENTS WHO ARE [...] ON THE PRIMARY CLINICAL RECORDS. [facility]. provides no warranty or guarantee of the accuracy or completeness of information in this document.
--- NOTE | 2025-07-15 10:50 | ECG_ITS ---
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 Measurements Intervals Fellows Rate: 71 P: 18 NH: 165 QRS: -12 QRSD: 87 T: 19 QT: 374 QTc: 407 Interpretive Statements SINUS RHYTHM LOW QRS VOLTAGE IN PRECORDIAL LEADS [QRS DEFLECTION < 1.0 mV IN CHEST LEADS] Abnormal ECG Compared to ECG 05/07/2024 12:44:31 No significant changes Electronically Signed On 07-15-2025 20:02:29 EDT by ELIAS ANN M.D.
[2025-07-15 11:25] LABS: Hematocrit 49.1 % (42.0-54.0); Hemoglobin 16.9 g/dL (14.0-18.0); Immature Granulocytes Abs Auto 0.02 10^3/uL (0.00-0.03); Immature Granulocytes Pct Auto 0.2 % (0.0-0.5); Lymphocytes Absolute Auto 0.7 10^3/uL (1.2-3.8); Mean Corpuscular HGB Conc 34.4 g/dL (29.9-35.2); Mean Corpuscular Hemoglobin 29.2 pg (25.9-34.0); Mean Corpuscular Volume 84.8 fL (80.0-94.0); Platelet Count 216 10^3/uL (150-450); Red Blood Count 5.79 10^6/uL (4.70-6.10); White Blood Count 8.4 10^3/uL (4.0-11.0)
[2025-07-15 11:35] LABS: INR 1.03; Partial Thromboplastin Time 31.5 sec (22.3-36.2); Prothrombin Time 10.9 sec (9.0-11.6)
[2025-07-15 11:36] LABS: Alanine Aminotransferase 33 U/L (16-63); Albumin Globulin Ratio 1.0; Albumin Level 3.9 g/dL (3.4-5.0); Alkaline Phosphatase 63 U/L (46-116); Anion Gap 10.6; Aspartate Amino Transferase 21 U/L (15-37); Blood Urea Nitrogen 14.0 mg/dL (7.0-18.0); Calcium 9.4 mg/dL (8.5-10.1); Carbon Dioxide 30.0 mmol/L (21.0-32.0); Chloride 103 mmol/L (98-107); Estimated GFR (African America >60 (>=60 mL/min/1.73m^2); Estimated GFR (Non-African Ame >60 (>=60 mL/min/1.73m^2); Globulin 4.1 g/dL; Glucose 116 mg/dL (74-106); Potassium 3.6 mmol/L (3.5-5.1); Sodium 140 mmol/L (136-145); Total Protein 8.0 g/dL (6.4-8.2)
[2025-07-15 14:34] LABS: Glucose Urine UA NEGATIVE (NEGATIVE)
== END 2025-07-15 10:42 | disposition home or self-care (01) ==
LOC: LAB 10:42
PROVIDERS: PCP Family Medicine; Visit Provider Personal Emergency Response Attendant
DX: Z01.818 Encounter for other preprocedural examination (principal); M17.12 Unilateral primary osteoarthritis, left knee
CPT/HCPCS: 36415; 80053; 81003; 85025; 85610; 85730; 87086; 93005

== ENCOUNTER 2025-07-28 07:49 | Outpatient (OUT) | payer OTHER, SELFPAY ==
--- OUTSIDE RECORDS SUMMARY | 2021-01-13 07:00 | XMS_ITS | Continuity of Care Document ---
Author Organization 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, [address] [place], [place], [id number], [place] tel:[phone] COVID ECHD No Information Radha Man. [address] [place], [place], [id number], [place]. tel:[phone] [facility], [address] [place] [address], [id number], tel:[phone] COVID ECHD No Information Radha Man. [address] [place], [place], [id number], [place]. tel:[phone] Family History Family Member Type Diagnosis Age At Onset No Information Immunizations Vaccine Date Status Comments Pfizer COVID administered Source: New Imm unization Record Pfizer COVID administered Source: New Imm unization Record Payers Payer name Insurance type Covered constitution party ID Authoriza tion(s) Aetna CI [id number] Aetna CI [id number] Aetna CI [id number] Social History Type Description Quantity Date Captured Comments Alcohol Use Details Unknown Caffeine Use Details Unknown Tobacco Use Status No Information Smoking Status No Information Sex Male Sexual Orientation Straight or heterosexual Gender Identity Male Chief Complaint And Reason For Visit No Information Reason For Referral Reason For Referral No Information History Of Present Illness Encounter Date Complaint History Of Prese nt Illness No Information Functional Status Date Functional Assessmen t No Information Instructions Date Instruction Additional Infor mation No Information Assessments Type Assessment Date No Information Patient Care Teams Name Effective Dates (start - stop) Status Members No Information
--- OUTSIDE RECORDS SUMMARY | 2025-07-14 09:00 | XMS_ITS | Encounter Summary ---
Author Organization [facility] Address [address] [place] [address] Care Team Providers Care Unloader Name Role Phone Jason Yepez MD Primary Care Provider [phone] Reason for Referral * Rehabilitation - Outpatient (Routine) - Pending Review Specialty Diagnoses / Procedures Referred By Contac t Referred To Contact Physical Therapy Diagnoses Arthritis of left knee Procedures [place] OFFICE/OUTPATIENT NEW HIGH MDM 60 MINUTES Justen Cuellar PA [address] [place] [address] Phone: tel: fax: Issa Robbins, PT [address] [facility] [address] [place] [address] Phone: tel: fax: Referral ID Status Reason Start Date Expiration Date Visits Requested Visits Authorized [id number] Pending Review Specialty Services Required 07/14/2025 01/10/2026 1 1 Reason for Visit * Reason Comments Pre-op Visit Encounter Details Date Type Department Care Team (Late st Contact Info) Description 07/14/2025 9:00 AM EDT Office Visit [facility] [address] [facility] [address] [place] [address] Justen Cuellar PA [address] [place] [address] Pre-op examination (Primary Dx); Arthritis of left knee Social [...] AM EDT documented as of this encounter Last Filed Vital Signs Vital Sign Reading Time Taken Comments Blood Pressure - - Pulse - - Temperature - - Respiratory Rate - - Oxygen Saturation - - Inhaled Oxygen Concentration - - Weight 125 kg (276 lb 9.6 oz) 07/14/2025 8:50 AM EDT Height 182.9 cm (6') 07/14/2025 8:50 AM EDT Body Mass Index 37.51 07/14/2025 8:50 AM EDT documented in this encounter Progress Notes * ANKITA Stapleton - 07/14/2025 9:00 AM EDT Images from the original note were not included. GENERAL HISTORY AND PHYSICAL: NAME: Harrison Nichols : 1960 HISTORY OF PRESENT ILLNESS: Harrison Nichols is an 64 y.o. @ male. Here for surgery instructions left total knee arthroplasty August 11 @ [facility]. PAST MEDICAL HISTORY: Past Medical History: Diagnosis Date A-fib (HCC) GERD (gastroesophageal reflux disease) High cholesterol Hypertension PAST SURGICAL HISTORY: Past Surgical History: Procedure Laterality Date CHOLECYSTECTOMY 1996 CHOLECYSTECTOMY KNEE ARTHROSCOPY W/ MENISCECTOMY Right 07/29/2024 DR FLETCHER SOCIAL HISTORY: Social History Occupational History Not on file Tobacco Use Smoking status: Never Smokeless tobacco: Never Substance and Sexual Activity Alcohol use: Yes Comment: 1/WK Drug use: Yes Types: Marijuana Comment: Gummies Sexual activity: Not on file ALLERGIES: Allergies Allergen Reactions Tramadol Unknown Amoxicillin Hives and Rash MEDICATIONS: Current Outpatient Medications Medication Instructions aspirin ([place]) 81 MG capsule Take by mouth Chlorhexidine Gluconate (Hibiclens) 4 % solution 1 Dose, Apply externally, Once, As directed night before surgery chlorthalidone ([place]) 25 MG tablet Eliquis 5 mg gabapentin (NEURONTIN) 300 mg, 2 times daily HYDROcodone-acetaminophen ([place]) 5-325 MG tablet No dose, route, or frequency recorded. Iron Polysacch [id number] (Poly-Iron 150 Forte) 150-0.025-1 MG capsule 1 tablet, Oral, Daily metoprolol tartrate (Lopressor) 25 MG tablet pantoprazole (PROTONIX) 40 mg, Daily before breakfast potassium chloride CR (K-Tab) 20 MEQ ER tablet rosuvastatin (CRESTOR) 20 mg, Nightly REVIEW OF SYSTEMS: Review of Systems Constitutional: Negative for fatigue, fever and unexpected weight change. HENT: Positive for sore throat (on zpack- no testing.). Eyes: Negative for redness and visual disturbance. Gastrointestinal: Negative for abdominal pain. Denies Indigestion Musculoskeletal: See note: Skin: Negative for color change and rash. Neurological: Negative for light-headedness and numbness. Vitals: Body mass index is 37.51 kg/m??. PHYSICAL EXAM: Physical Exam Constitutional: General: He is not in acute distress. Appearance: Normal appearance. HENT: Head: Normocephalic and atraumatic. Right Ear: External ear normal. Left Ear: External ear normal. Nose: Nose normal. No rhinorrhea. Mouth/Throat: Mouth: Mucous membranes are moist. Dentition: No gingival swelling or dental abscesses. Pharynx: Oropharynx is clear. Posterior oropharyngeal erythema (minimal cobble stoneing posterior pharynx, with post nasal drainge, likely viral) present. No pharyngeal swelling, oropharyngeal exudate or uvula swelling. Eyes: Extraocular Movements: Extraocular movements intact. Conjunctiva/sclera: Conjunctivae normal. Cardiovascular: Rate and Rhythm: Normal rate and regular rhythm. Pulses: Normal pulses. Heart sounds: Normal heart sounds. No murmur heard. Pulmonary: Effort: Pulmonary effort [...] Behavior normal. Orders Placed This Encounter Procedures Urine culture Standing Status: Future Number of Occurrences: 1 Expected Date: 07/14/2025 Expiration Date: 07/14/2026 Print requisition?: No XR lower extremity leg length evaluation Standing Status: Future Expected Date: 07/14/2025 Expiration Date: 07/14/2026 Reason for exam:: B/L LEG LENTH STUDY - NO MEASUREMENTS REQUIRED ; LT TKA 08/11 APTT Standing Status: Future Number of Occurrences: 1 Expected Date: 07/14/2025 Expiration Date: 07/14/2026 Print requisition?: No CBC and differential Standing Status: Future Number of Occurrences: 1 Expected Date: 07/14/2025 Expiration Date: 07/14/2026 Print requisition?: No Comprehensive metabolic panel Standing Status: Future Number of Occurrences: 1 Expected Date: 07/14/2025 Expiration Date: 07/14/2026 Print requisition?: No Protime-INR Standing Status: Future Number of Occurrences: 1 Expected Date: 07/14/2025 Expiration Date: 07/14/2026 Print requisition?: No Urinalysis with reflex microscopic Standing Status: Future Expected Date: 07/14/2025 Expiration Date: 07/14/2026 Print requisition?: No Ambulatory referral to Physical Therapy Home therapy for LT TKA August 11 @ [facility] Standing Status: Future Expected Date: 07/14/2025 Expiration Date: 01/11/2026 Referral Priority: Routine Referral Type: Rehabilitation - Outpatient Referral Reason: Specialty Services Required Referred to Provider: Issa Robbins, PT Requested Specialty: Physical Therapy Number of Visits Requested: 1 ECG 12 lead Standing Status: Future Number of Occurrences: 1 Expected Date: 07/14/2025 Expiration Date: 07/14/2026 ASSESSMENT: ICD-10-CM 1. Pre-op examination Z01.818 APTT CBC and differential Comprehensive metabolic panel Protime-INR XR lower extremity leg length evaluation ECG 12 lead Urine culture Urinalysis with reflex microscopic APTT CBC and differential Comprehensive metabolic panel Protime-INR ECG 12 lead Urine culture Chlorhexidine Gluconate (Hibiclens) 4 % solution Iron Polysacch [id number] (Poly-Iron 150 Forte) 150-0.025-1 MG capsule CANCELED: CBC and differential CANCELED: APTT CANCELED: Comprehensive metabolic panel CANCELED: Protime-INR CANCELED: XR lower extremity leg length evaluation CANCELED: ECG 12 lead CANCELED: Urine culture CANCELED: Urinalysis with reflex microscopic CANCELED: CBC and differential CANCELED: APTT CANCELED: Comprehensive metabolic panel CANCELED: Protime-INR CANCELED: ECG 12 lead CANCELED: Urine culture 2. Arthritis of left knee M17.12 APTT CBC and differential Comprehensive metabolic panel Protime-INR XR lower extremity leg length evaluation ECG 12 lead Urine culture Urinalysis with reflex microscopic APTT CBC and differential Comprehensive metabolic panel Protime-INR ECG 12 lead Urine culture Ambulatory referral to Physical Therapy CANCELED: CBC and differential CANCELED: APTT CANCELED: Comprehensive metabolic panel CANCELED: Protime-INR CANCELED: XR lower extremity leg length evaluation CANCELED: ECG 12 lead CANCELED: Urine culture CANCELED: Urinalysis with reflex microscopic CANCELED: CBC and differential CANCELED: APTT CANCELED: Comprehensive metabolic panel CANCELED: Protime-INR CANCELED: ECG 12 lead CANCELED: Urine culture PLAN: Discussed patient's need for a front wheel walker: The patient has mobility limitations that significantly impair their ability to participate in activities of daily living without the risk of fall. The patient would benefit from this walker to reasonably complete activities of daily living such asprepping and cooking meals, grocery shopping , getting too and from the bathroom in an acceptable timeframe given current limitations. To prevent risk of fall patient can not use crutches safely as an alternative. As the patient is considered a fall risk, the utilization of a front-wheeled walker would mitigate the risk for height morbidity and mortality secondary to the possibility of fall. After further discussion at bedside the patient is able to safely use a walker in the benefit of walker use would improve her functional mobility to resolve deficit discussed above in her diagnosis. This patient presents for preadmission testing for upcoming surgery. Complete history with medical,surgery, and current allergy and medication list obtained. Consent for surgery signed and witnessedafter verbal consent to perform surgery received. All questions answered and proposed surgery scheduled. SURGERY INSTRUCTIONS DR YEPEZ YOLIS NOTIFIED PRE CERT SENT HIBICLENS SENT Follow up in about 6 weeks (around 08/25/2025) for Post-Op August 25 2 1:30 with [facility] in [place] . documented in this encounter Plan of Treatment Upcoming Encounters Date Type Department Care Team (Late st Contact Info) Description 08/05/2025 1:30 PM EDT Evaluation [facility] [address] [place] [address] Tigist Mukherjee, EFRA 08/25/2025 1:30 PM EDT Office Visit [facility] [address] [place] [id number] Corona Peng, MANAGER [employer] [address] [place] [address] Scheduled Orders Name Type Priority Associated Diagnoses Orde r Schedule APTT Lab Routine Arthritis of left knee Pre-op examination Expected: 07/14/2025, Expires: 07/14/2026 CBC and differential Lab Routine Arthritis of left knee Pre-op examination Expected: 07/14/2025 (Approximate), Expires: 07/14/2026 Comprehensive metabolic panel Lab Routine Arthritis of left knee Pre-op examination Expected: 07/14/2025 (Approximate), Expires: 07/14/2026 Protime-INR Lab Routine Arthritis of left knee Pre-op examination Expected: 07/14/2025 (Approximate), Expires: 07/14/2026 XR lower extremity leg length evaluation Imaging Routine Arthritis of left knee Pre-op examination Expected: 07/14/2025 (Approximate), Expires: 07/14/2026 ECG 12 lead ECG Routine Arthritis of left knee Pre-op examination Expected: 07/14/2025 (Approximate), Expires: 07/14/2026 Urine culture Microbiology Routine Arthritis of left knee Pre-op examination Expected: 07/14/2025 (Approximate), Expires: 07/14/2026 Urinalysis with reflex microscopic Lab Routine Arthritis of left knee Pre-op examination Expected: 07/14/2025 (Approximate), Expires: 07/14/2026 Scheduled Referrals Name Type Priority Associated Diagnoses Order Schedule Ambulatory referral to Physical Therapy Outpatient Referral Routine Arthritis of left knee Expected: 07/14/2025 (Approximate), Expires: 01/11/2026 documented as of this encounter Visit Diagnoses Diagnosis Pre-op examination- Primary Arthritis of left knee documented in this encounter Care Teams Unloader Relationship Specialty Start Date End Date Jason Yepez MD [address] [place] [address] PCP - General Family Medicine 06/17/25 documented as of this encounter
--- OUTSIDE RECORDS SUMMARY | 2025-07-15 13:50 | XMS_ITS ---
Author Name Auto Generated Organization OHIP Care Team Providers Care Site Physician Name Role Phone CAR CUELLAR Attending Unavailable CAR CUELLAR Attending Unavailable CAR CUELLAR Attending Unavailable JR. FLETCHER GEORGE C Attending Unavaila ble CAR CUELLAR Attending Unavailable Car Cuellar Admitting Unavailable Car Cuellar Attending Unavailable NilRell nielsen Attending Unavailable NillRell Admitting Unavailable Jason Cervantes Primary Care Unavailable Jason Cervantes Primary Care Unavailable Car Cuellar Attending Unavailable Car Cuellar Admitting Unavailable NILLRell Attending Unavailable NILLRell Attending Unavailable Gibing LANDA, Evelyne Bradley Attending Unavailable Jam LANDA, Evelyne Bradley Attending Unavailable Jam LANDA, Evelyne Bradley Attending Unavailable OSORIO NICHOLSON Attending Unavailable CJ IRENE Attending Unavailable PROBLEMS DATE TYPE CONDITION / CODE ATTENDING STATUS [facility] 03/04/2025 Admitting Diagnosis Obesity, class 3 / E66.813(ICD-10) [facility] 03/04/2025 Admitting Diagnosis Atherosclerotic heart disease of tejon coronary artery without angina pectoris / I25.10(ICD-10) [facility] 03/04/2025 Admitting Diagnosis Paroxysmal atrial fibrillation / I48.0(ICD-10) [facility] 03/04/2025 Admitting Diagnosis Essential (primary) hypertension / I10(ICD-10) [facility] 03/04/2025 Admitting Diagnosis Pure hypercholesterolemia, unspecified / E78.00(ICD-10) [facility] 03/04/2025 Admitting Diagnosis Gastro-esophageal reflux disease without esophagitis / K21.9(ICD-10) [facility] 03/04/2025 Admitting Diagnosis Body mass index (BMI) 38.0-38.9, adult / Z68.38(ICD-10) [facility] PROCEDURES No Procedure Records Found RESULTS URINE CULTURE Observed: 07/15/2025 1:50 PM Status: F Source: [facility] No Growth 2 Days PERFORMED BY: [place] [address] PATHOLOGIST INFO ANALYST DOLORES RODRÍGUEZ M.D. Performed By: #### CUU #### [address] XR FEMUR BI Observed: 07/14/2025 4:08 PM Status: COMPLETED Source: [facility] [place] [address] XRay Report Signed Patient: Kim Nichols MR#: [id number] : 1960 Acct:[id number] Age/Sex: 64 / M ADM Date: 07/14/25 Loc: [facility] Room: Type: [facility] Attending Dr: Car Cuellar PA-C Copies to: Car Cuellar PA-C Ordering Provider: Car Cuellar PA-C Date of Service: 07/14/25 XR/XR femur BI: PRE OP ([id number]) XR/XR tibia/fibula BI: PRE OP History: Preop assessment for left total knee arthroplasty. Plain film imaging of the femurs. Adequate alignment. No acute displaced fracture. The right greater trochanter out of the field of view. No significant hip degeneration. Extensive left knee medial msyk-ka-hzpx contact degeneration. Unremarkable right knee. Plain film imaging of the tibia and fibula bilaterally. No acute displaced fracture. Adequate ankle joints. XR/XR tibia/fibula BI IMPRESSION: Extensive left and medial ohpj-td-haze contact the degeneration. Unremarkable hips. Unremarkable ankles. Impression dictated by: Tom Huerta M.D. 07/14/2025 4:10 PM Dictation Location: [facility] Transcribed By: [facility] 07/14/25 1610 Dictated By: Tom Huerta DO 07/14/25 1608 Signed By: <Electronically signed by Tom Huerta DO in OV> 07/14/25 1610 PROGRESS Observed: 03/04/2025 9:00 AM Status: COMPLETED Source: [facility] Cardiology - [facility] Subjective Kim Nichols is a 64 y.o. [...] and he had carotid stenosis, sister had UT, mother had brain aneurysm ROS All systems [...] twice a day., Disp: , Rfl: HYDROcodone-acetaminophen ([place]) 5-325 mg tablet, Take 1 tablet by [...] present. NEURO: strength/sensation equal and symmetric in bilateral upper and lower extremities. PSYCH: appropriate mood, affect, and judgement. Recent Labs 06/12/2024 Sodium 137, potassium 3.6, glucose 89, BUN 13, creatinine 1.04, GFR above 60, calcium 9.8 Triglycerides 66, cholesterol 137, HDL 46, LDL 77.8 11/13/2023 White blood count 7.3, hemoglobin 17, hematocrit 50, platelets 235 HbA1c 6% Total bilirubin 0.6, AST 20, ALT 42, total protein 8, albumin 3.7 TSH 3.28 Imaging and other tests EKG 06/11/2024 showed normal sinus rhythm, poor R progression V1-V3, no T or ST changes EK05/07/2024 at 1213 showed atrial fibrillation with rapid ventricular rate, ST changes in inferior and anterolateral leads EKG 05/07/2024 at 1244 showed normal sinus rhythm, low QRS voltage, nonspecific ST changes Echo: 05/26/2014 Stress test:05/25/2024 EKG portion Cardiac cath: 09/28/2020 at [facility] Event Monitor:06/09/2024 Assessment/Plan Mild coronary artery disease per cardiac catheterization 2019. Recent Lexiscan nuclear stress test showed only fixed inferior defect without ischemia and normal left ventricular systolic function therefore the perfusion defect is probably due to diaphragmatic attenuation Clinically stable. He is on aspirin, rosuvastatin, and metoprolol Paroxysmal atrial fibrillation diagnosed for the first time April 2024 He is maintaining normal sinus rhythm. He is on metoprolol for rate control and Eliquis for anticoagulation. He had event monitor in May 2024 without evidence of recurrent A-fib. Essential hypertension, on metoprolol and chlorthalidone, well-controlled Pure hypercholesterolemia, on rosuvastatin, well-controlled Obesity, BMI 34.9 kg/m??? GERD, hiatal hernia Spinal disc herniation and back pain Knees arthritis Plan: Continue current medications including aspirin, Eliquis, metoprolol, chlorthalidone, and rosuvastatin Check fasting lipids and AST ALT, the goal is to keep LDL cholesterol 70 or below Patient was advised regarding the importance of losing weight by following low calorie low-carb diet and exercise. Due to back and knees arthritis water exercises was recommended Follow-up in 6 months or sooner if need Cj Irene MD,[facility] OFFICE VISIT Observed: 03/04/2025 9:00 AM Status: COMPLETED Source: [facility] [id number] Kim Nichols 1960 M Date Provider Department Center 03/04/2025 [id number] IRENE CARD [facility] Family History Problem Relation Age of Onset Brain Aneurysm Mother Stroke Father Heart attack Sister Family Status - Relation Status Age at Mother Father Sister Level of Service:41088 [place] OFFICE/OUTPATIENT ESTABLISHED LOW MDM 20 MIN Reason for Visit and Comments: Coronary Artery Disease [187] - Denies SOB. Atrial Fibrillation [80] - On Eliquis, denies bleeding. Denies palpitations and syncope. Hyperlipidemia [182] - Had lipid panel in May 2024. On rosuvastatin. Hypertension [959008] Chest Pain [140908] - Intermittent, blames his hiatal hernia and back pain. PROGRESS Observed: 09/09/2024 11:20 AM Status: COMPLETED Source: [facility] Cardiology Clinic Note Chief Complaint: Follow up HPI: Kim Nichols [...] in 6 months, or sooner as needed Osorio Nicholson MD Interventional Cardiology [facility] OFFICE VISIT Observed: 09/09/2024 11:20 AM Status: COMPLETED Source: [facility] [id number] BertoKim conde J 1960 M Date Provider Department Center 09/09/2024 3848-OSORIO NICHOLSON RAVIN [place] Family History Problem Relation Age of Onset Brain Aneurysm Mother Stroke Father Heart attack Sister Family Status - Relation Status Age at Mother Father Sister Level of Service:08662 [place] OFFICE/OUTPATIENT ESTABLISHED LOW MDM 20 MIN GENERAL SURGERY OFFICE/CLINIC NOTE Obser gloria: 09/08/2024 4:32 PM Status: F Source: [facility] General Surgery Office/Clini c Note Chief Complaint post operative follow up [...] Protonix daily, patient will discuss with Dr Cervantes. 2. Fundic gland polyps of stomach, benign [...] Tab, 25 mg= 1 tab(s), Oral, BID [place] 325 mg-5 mg oral tablet, 1 tab(s), [...] virus vaccine, inactivated 09/12/2023 Recorded SARS-CoV-2 (COVID-19) [id number].[id number] 10/14/2022 Recorded influenza virus vaccine, inactivated 10/03/2022 Recorded SARSCoV2 mRNA(gybapjyfz-zrrt-ctwbnm) vac 03/22/2022 Recorded SARS-CoV-2 (COVID-19) mRNA BNT-162b2 vax 09/03/2021 Recorded influenza virus vaccine, inactivated 08/25/2021 Recorded SARS-CoV-2 (COVID-19) mRNA BNT-162b2 vax 02/13/2021 Recorded SARS-CoV-2 (COVID-19) mRNA BNT-162b2 vax 01/20/2021 Recorded SARS-CoV-2 (COVID-19) mRNA BNT-162b2 vax 01/13/2021 Recorded SARS-CoV-2 (COVID-19) mRNA BNT-162b2 vax 12/23/2020 Recorded influenza virus vaccine, inactivated 08/28/2020 Recorded Result Comment: Electronical ly Signed By: SNOW LANDA, Rell Marr\.br\Date and Time Signed: 09/08/24 16:32 EST AMBULATORY VISIT SUMMARY Observed: 09/08 1:23 PM Status: F Source: [facility] Ambulatory Visit Summary KIM NICHOLS :1960 Visit Date:09/08/2024 Ambulatory Visit Instructions Your Care Team Attending Physician - SNOW LANDA, Rell Marr Primary Care Physician - Jason Cervantes MD This Is Your Medications List acetaminophen-hydrocodone ([place] 325 mg-5 mg oral tablet) apixaban (Eliquis [...] What How Much When Instructions Unchanged acetaminophen-hydrocodone ([place] 325 mg-5 mg oral tablet) 1 Tablets [...] you for choosing us for your care. REMINDERS Observed: 08/26/2024 11:53 AM Status: F Source: [facility] Reminders From: María Ayala LPN To: N - Clinical; Sent: 08/26/2024 11:53:39 EDT Show up: 07/26/2034 07:00:00 EDT Subject: colonoscopy recall Due Date/Time: 08/25/2034 07:00:00 EDT Reminder/Recall Patient due for screening colonoscopy 08/25/2034. PATHOLOGY REQUEST FOR LAB ANGEL Collected: 08/25/2024 8:24 AM Status: F Source: [facility] Order Comment: PATHOLOGY GI SPECIMEN TYPE CODE TESTS RESULT OUT OF RANGE REFERENCE UNITS LAB PATH TO [facility] Pathology Request for Lab Angel Result Comment: See report. Scanned copy available in EMR. PERFORMED BY: [place] [address] PATHOLOGIST INFO ANALYST MICHAEL LEMUS M.D. Performed By: #### PATH TO [facility] #### [address] ALLERGIES DATE TYPE / CODE NAME / CODE REACTION SEVERITY SOURCE 05/10/2024 DRUG INGREDI/[id number]( SNOMED CT) TRAMADOL Other [facility] 09/26/2020 DRUG INGREDI/[id number]( SNOMED CT) AMOXICILLIN Hives~Rash Low [facility] /[id number](SNOME D CT) penicillin [id number] [facility] ENCOUNTERS ADMIT/DISCHARGE ACCOUNT NUMBER ADMITTING ENCOUNTER CLASS LOCATION SOURCE 07/15/2025/07/15/20 [id number] [facility] 07/14/2025/07/14/20 25 [id number] Car [facility] 07/14/2025/07/14/20 25 [id number] Ambulatory Building:[facility] 07/04/2025/07/04/20 [id number] [place] [place] 06/13/2025/06/13/20 25 [id number] Ambulatory PM [place]:PM [facility] 04/20/2025/04/20/20 25 [id number] Ambulatory Building:[facility] 03/04/2025/03/04/20 [id number] Ambulatory Building:[facility] 02/18/2025/02/19/20 [id number] Ambulatory Building:[facility] 12/13/2024/12/13/19 [id number] Ambulatory PM [place]PM [place] [facility] 09/09/2024/09/09/20 24 [id number] Ambulatory Building:[facility] 09/08/2024/09/08/20 24 [id number] Ambulatory GS [place] : Exam 2 [facility] 08/30/2024/08/30/20 24 [id number] Ambulatory Building:[facility] 08/25/2024/08/25/[id number] [facility] 08/25/2024/08/25/20 24 [id number] Ambulatory CD:[id number] 7Building:CD :[id number] [facility] 08/16/2024/08/16/20 24 [id number] Ambulatory Building:[facility] 07/05/2024 [id number] Ambulatory GS [place]:GS [place] [facility] PAYERS ENCOUNTER GUARANTOR PAYER SUBSCRIBER SOURCE 07/15/2025 [place], [place] [address]Yyb: () Primary Insurance:Self PayPolicy Number: Effective Date:2025-07-15 [facility]2025 Kim Riceshayden [place], [place] [address]Nyl: () Primary Insurance:Aetna Insurance CoPolicy Number: [id number] Date:5032-56-80[id number] PasRAJINDER olvera [address]LZ: Stella HansonB: [id number] [facility] [place]BELL[place], [place] [address]Hxo: (HP) [facility] 07/14/2025 Secondary Insurance:Self PayPolicy Number: Effective Date:2025-07-14 NOT GIVENUNK [facility] 07/14/2025 KIM HANSONB: [place] [address]Anz: (HP) Primary Insurance:AETNAPo licy Number: [id number] Date:4610-97-91Vp an Name:THERESA PALACIOS 518863RCRAJINDER MABRY [address]IP: STELLA HANSONB: [id number] [place] [address] [facility] 07/04/2025 Kim HansonB: [facility] [place] [address] Primary Insurance:AetnaPo licy Number: Effective Date:5746-96-32Ph an Name:GABRIEL Palacios [address] [place] [address]CK: Kim HansonB: [id number] [place] [address] [facility] 06/13/2025 Kim HansonB: [facility] [place] [address] Primary Insurance:AetnaPo licy Number: Effective Date:8047-30-07Ht an Name:GABRIEL Palacios [address] [place] [address]UP: Kim HansonB: [id number] [facility] [place] [address] [facility] 04/20/2025 KIM HANSONB: [place] [address]Swa: () Primary Insurance:AETNAPo licy Number: [id number] ve Date:7967-08-52Bc an Name:THERESA PALACIOS [id number] HIGGINS [address]CV: STELLA HANSONB: [id number] [place] [address] [facility] 03/04/2025 Primary Insurance:AETNAPo licy Number: [id number] Date:2007-10-27 STELLA DELA CRUZIDOB: [id number] [place] [address] [facility] 02/18/2025 KIM HANSONB: [place] [address]Yry: () Primary Insurance:AETNAPo licy Number: [id number] Date:4328-83-62Ch an Name:THERESA PALACIOS [id number] MABRY [address]KM: STELLA HANSONB: [id number] [place] [address] [facility] 12/13/2024 Kim HansonB: [place] [address] Primary Insurance:AetnaPo licy Number: Effective Date:9819-29-22If an Name:GABRIEL Palacios [address], [place] [address]KZ: Kim Dela CruziDOB: [id number] [place] [address] [facility] 09/09/2024 Primary Insurance:AETNAPo licy Number: [id number] ve Date:2007-10-27 STELLA LLANOSUSKIDOB: [id number] [facility] [place] [address] [facility] 09/08/2024 KIM DELA CRUZIDOB: YORKIRE PLTel: ~~([phone] (HP) Primary Insurance:AETNAPo licy Number: [id number] Date:0955-86-98[address] [address]ZD: STELLA MAGDALENAParkview Health [facility] 08/30/2024 KIM LLANOSUSKIDOB: [place] [address]Yyy: (HP) Primary Insurance:AETNAPo licy Number: [id number] Date:0106-32-13Yc an Name:[address] [place] [address]DF: STELLA HANSONB: [id number] [place] [address] [facility] 08/25/2024 Kim Dela Cruzi[address] [place], [place] [address]Pym: (HP) Primary Insurance:Self PayPolicy Number: Effective Date:2024-08-25 [facility] 08/25/2024 KMI LLANOSUSKIDOB: MIKEIRE PLTel: ~([phone] (HP) Primary Insurance:AETNAPo licy Number: [id number] Date:4753-85-35MZ [address] [address]UZ: STELLA MAGDALENAParkview Health [facility] Hospital 08/16/2024 KIM DELA CRUZIDOB: [place] [address]Hou: (HP) Primary Insurance:AETNAPo licy Number: [id number] Date:6886-91-87Qv an Name:THERESA PALACIOS [id number] MABRY [address]JN: STELLA HANSONB: [id number] [facility] [address] [facility] EPIC
--- OUTSIDE RECORDS SUMMARY | 2025-07-19 06:30 | XMS_ITS ---
Author Organization [facility] in [place] Address [address] [place] [address] Care Team Providers Care Administrator Health Care Facility Name Role Phone Del Cervantes Primary Care [...] N/A Encounters Encounter Location Date Provider Diagnosis [address] [address] 07/19/2025 Del Hosvetlana Atrial fibrillation I48.91 ; [...] * Harrison NICHOLS JDOB:1959 (64 yo M)Acc No.[id number]:07/19/2025 Progress Note Patient: Harrison ROLAND Provider: Tamara Cervantes ([facility])MD :1960 A ge:64 Y S ex:Male Date:07/19/2025 Address:[address] [place], [place] [id number] Check In:10:17 AM ESTCheck O ut:11:26 AM [...] Procedure Codes: * Preventive Medicine: Screenings/Counseling: B DE ACTION PLAN Above Normal BMI Follow-up D ietary management education, guidance, and counseling * * Sign off status: Completed Visit Status: C HK (Check Out) true * Provider: Tamara Cervantes ([facility])MD Date: 0 07/19/2025 Generated for Printi ng/Fayeniferg/eTransmitting on: 1 07:51 AM EDT History and Physical Notes [...]
--- OUTSIDE RECORDS SUMMARY | 2025-07-28 07:51 | XMS_ITS | Encounter Summary ---
Author Organization [facility] Address [address] [place] [address] Care Team Providers Care Supervisor Accounts Receivable Name Role Phone Jason Cervantes MD Primary Care Provider [phone] Jason Cervantes MD Primary Care Provider [phone] Encounter Details Date Type Department Care Team (Late st Contact Info) Description 05/03/2024 Orders Only [facility] [address] [place] [address] Jason Cervantes MD [address] [facility] [place] [phone] Social History Tobacco Use Types Packs/Day Years [...] Info) Description 08/05/2025 1:30 PM EDT Evaluation [facility] [address] [place] [address] Tigist Mukherjee, EFRA 08/25/2025 1:30 PM EDT Office Visit [facility] [phone] Corona Peng, [employer] O[employer]ATOR [address] [place] [address] documented as of this encounter Procedures Procedure Name Priority Date/Time Associated Diagnosis Comments XR KNEE LEFT 3 VIEW Routine 05/03/2024 9:47 AM EDT MR KNEE LEFT WO IV CONTRAST Routine 05/03/2024 9:26 AM EDT documented in this encounter Results * XR KNEE LEFT 3 VIEW (05/03/2024 9:47 AM EDT) Anatomical Region Laterality Modality Radiographic Mone ging Jason Cervantes MD IMG XR PROCEDURES Final Result * MR knee left wo IV contrast (05/03/2024 9:26 AM EDT) Anatomical Region Laterality Modality Lower Extremities, Knee Left Magnetic Resonance Jason Cervantes MD IMG MRI PROCEDURES Final Result documented in this encounter Visit Diagnoses Not on filedocumented in this encounter Care Teams Supervisor Accounts Receivable Relationship Specialty Start Date End Date Jason Cervantes MD PCP - General 05/05/24 06/16/25 Jason Cervantes MD [address] [place] [address] PCP - General Family Medicine 06/17/25 documented as of this encounter
--- OUTSIDE RECORDS SUMMARY | 2025-07-28 07:51 | XMS_ITS | Clinical Summary ---
Author Organization [facility] Address [address] [place] [address] Care Team Providers Care Strapper Operator Name Role Phone Avi Cervantes MD Primary Care Provider [phone] Allergies Active Allergy Reactions Criticality Noted Date Comments Amoxicillin Hives,Rash Low 09/26/2020 Tramadol Unknown 05/10/2024 Medications Eliquis 5 MG tablet 5 mg 4 Active aspirin (Vazalore) 81 MG capsule Take by mouth Activ e chlorthalidone (Hygroton) 25 MG tablet Active gabapentin (Neurontin) 300 MG capsule Take 300 mg by mouth in the morning and 300 mg in the evening. 3 Active metoprolol tartrate (Lopressor) 25 MG tablet 4 Active potassium chloride CR (K-Tab) 20 MEQ ER tablet 4 Active rosuvastatin (Crestor) 20 MG tablet Take 20 mg by mouth at bedtime Active pantoprazole (ProtoNix) 40 MG EC tablet Take 40 mg by mouth in the morning. Take before meals. Do not crush, chew, or split. Active HYDROcodone-sunshine taminophen ([place]) 5-325 MG tablet Active Iron Polysacch Beifj-V22-QD (Poly-Iron 150 Forte) 150-0.025-1 MG capsuleIndicati ons:Pre-op examination Take 1 tablet by mouth Daily 30 capsule 1 5 08/13/20 25 Active Diclofenac 35 MG capsule 07/14/20 25 Discontinu ed(Therapy completed) sucralfate (Carafate) 1 g tablet Take by mouth 4 (four) times a day before meals 07/14/20 25 Discontinu ed(Therapy completed) Chlorhexidine Gluconate (Hibiclens) 4 % solutionIndicat ions:Pre-op examination Apply 1 Dose topically 1 time for 1 dose As directed night before surgery 118 mL 5 07/14/20 25 Active Problems Problem Noted Date Diagnosed Date Internal derangement of left knee 07/19/2024 Need for crutch training 07/19/2024 Encounters Date Type Department Care Team Description 07/18/2025 Results Follow-Up [facility] [address] [place] [phone] Justen Cuellar PA ECG 12-LEAD 07/15/2025 External Result Encounter [facility]OMS External Department Unsolicited Justen Cuellar PA 07/15/2025 Clinisync Result Encounter NOMS External Department Unsolicited Justen Cuellar PA 07/15/2025 Results Follow-Up [facility] [address] [place] [phone] Justen Cuellar PA [facility] CMP (CMP) (FOR REMOTE [facility] USE), ALL CBC WITH AUTO DIFF, SRMCOH PROTHROMBIN TIME INR W/O COUM, Additional followed-up results: 2 07/15/2025 Clinisync Result Encounter NOMS External Department Unsolicited Justen Cuellar PA 07/14/2025 9:00 AM EDT Office Visit [facility] [address] [place] [phone] Justen Cuellar PA Pre-op examination (Primary Dx); Arthritis of left knee 07/14/2025 Results Follow-Up [facility] [address] [place] [address] Justen Ceullar PA XR femur bilateral 2 views 07/14/2025 External Result Encounter NOMS External Department Unsolicited Justen Cuellar PA 07/14/2025 [facility] [address] [place] [address] Anastasiya Kimbrough MA Arthritis of left knee (Primary Dx); Preop examination 07/14/2025 Bamboo flowsheet [facility] [address] [place] [address] Justen Cuellar PA 07/14/2025 Travel 07/11/2025 Travel 06/17/2025 Bamboo flowsheet [facility] [address] [place] [address] Justen Cuellar PA 06/17/2025 Travel 06/10/2025 Travel from Last 3 Months Family History Medical History Relation Name Comments Arthritis Mother Brain Aneurysm Mother Relation Name Status Comments [...] Mass Index 37.51 07/14/2025 8:50 AM EDT Plan of Treatment Upcoming Encounters Date Type Department Care Team (Late st Contact Info) Description 08/05/2025 1:30 PM EDT Evaluation [facility] [address] [place] [address] Tigist Mukherjee, EFRA 08/25/2025 1:30 PM EDT Office Visit [facility] [address] [place] [address] Croona Peng, ASSISTANT SALES DIRECTOR [address] [place] [address] Health Maintenance Due Date Last Done Comments CT Colonography 1960 FIT-DNA 1960 FIT 1960 FOBT 1960 Sigmoidoscopy 1960 Influenza Vaccine (#1) 2025 , 09/12/2023, 10/03/2022, Additional history exists Colonoscopy 08/25/2034 08/25/2024, 07/29, 07/02/2019, Additional history exists Colorectal Cancer Screening 08/25/2034 Procedures Procedure Name Priority Date/Time Associated Diagnosis Comments URINE CULTURE - [facility] Routine 07/15/2025 1:50 PM EDT TBH UA (CLEAN/CATCH) MICROSCOPIC IF INDICATE Routine 07/15/2025 1:50 PM EDT CULTURE, URINE, ROUTINE Routine 07/15/2025 1:50 PM EDT [facility] APTT Routine 07/15/2025 11:11 AM EDT SRMCO[facility] PROTHROMBIN TIME INR W/O COUM Routine 07/15/2025 11:11 AM EDT ALL CBC WITH AUTO DIFF Routine 07/15/2025 11:11 AM EDT [facility] CMP (CMP) (FOR REMOTE [facility] USE) Routine 07/15/2025 11:11 AM EDT ECG 12-LEAD 07/15/2025 10:57 AM EDT XR FEMUR 2 VW BILATERAL 07/14/2025 4:08 PM EDT COLONOSCOPY Routine 07/02/2019 12:00 PM EDT from Last 3 Months or Most Recently Relevant to Health Maintenance Results * URINE CULTURE - [facility] (07/15/2025 1:50 PM EDT) URINE CULTURE - [facility] Urine Culture - [facility] No Growth 2 Days [facility]ULTURE - [facility] Testing performed at [facility] URINE CULTURE - [facility] [address] [place] [address] [facility] 07/15/2025 1:50 PM EDT 07/15/2025 1:58 PM EDT Narrative CLINISYNC - 07/18/2025 10:46 AM EDT us Justen LUCIANO LAB BLOOD ORDERABLES Final Re sult CLINISYNC TB * TB UA (CLEAN/CATCH) MICROSCOPIC IF INDICATE (07/15/2025 1:50 PM EDT) Pathologist [facility] COLOR URINE YELLOW YELLOW TBH CLARITY URINE CLEAR CLEAR TBH SPECIFIC GRAVITY URINE 1.020 1.005 - 1.025 TBH PH URINE 7.0 5.0 - 9.0 TBH PROTEIN URINE TRACE NEG/TRACE mg/dL TBH GLUCOSE URINE UA NEGATIVE NEGATIVE mg/dL TBH BILIRUBIN URINE NEGATIVE NEGATIVE TBH KETONES URINE NEGATIVE NEGATIVE mg/dL TBH BLOOD URINE NEGATIVE NEGATIVE TBH NITRITE URINE NEGATIVE NEGATIVE TBH UROBILINOGEN URINE >=8.0 0.2 - 1.0 EU/dL TBH LEUKOCYTE ESTERASE URINE NEGATIVE NEGATIVE TBH URINE MICROSCOPIC INDICATED NO TBH 07/15/2025 1:50 PM EDT 07/15/2025 1:58 PM EDT Narrative CLINISYNC - 07/15/2025 2:34 PM EDT us Justen LUCIANO CLINISYNC Final Result CLINISYNC TB * Urine culture (07/15/2025 1:50 PM EDT) Pathologist [facility] NOTE No Growth 2 Days 07/17/2025 10:[address] [facility] Urine Urine specimen obtained by clean catch procedure / Unknown 07/15/2025 1:50 PM EDT 07/15/2025 8:32 PM EDT Justen LUCIANO LAB MICROBIOLOGY - GENERAL OR DERABLES Final Result Performing Organization Address City/[facility] [[email or web address]] Co de Phone Number [facility] [address] [place] [address], [facility] [address] [place] [address] * [facility] PROTHROMBIN TIME INR W/O COUM (07/15/2025 11:11 AM EDT) PROTHROMBIN TIME 10.9 9.0 - 11.6 sec TBH TBH INR 1.03 TBH Comment: DESIRED INR: 2.0-3.0 CONDITIONS NOT LISTED BELOW 2.5-3.5 FOR PROSTHETIC HEART VALVE REPLACEMENT 2.5-3.5 RECURRENT THROMBOSIS 07/15/2025 11:1 1 AM EDT 07/15/2025 11:12 AM EDT Narrative CLINISYNC - 07/15/2025 11:55 AM EDT Justen LUCIANO CLINISYNC Final Result Performing Organization Address City/[facility] [[email or web address]] Co de Phone Number CLINISYNC TB * (ABNORMAL) [facility] CMP (CMP) (FOR REMOTE [facility] USE) (07/15/2025 11:11 AM EDT) SODIUM 140 136 - 145 mmol/L TBH POTASSIUM 3.6 3.5 - 5.1 mmol/L TBH CHLORIDE 103 98 - 107 mmol/L TBH CARBON DIOXIDE 30.0 21.0 - 32.0 mmol/L TBH ANION GAP 10.6 TBH GLUCOSE 116(H) 74 - 106 mg/dL TBH BLOOD UREA NITROGEN 14.0 7.0 - 18.0 mg/dL TBH CREATININE 1.16 0.70 - 1.30 mg/dL TBH TBH EGFR-AF ECUADOREAN >60 >=60 mL/min/1. 73m 2 TBH TBH EGFR-NON AF ECUADOREAN >60 >=60 mL/min/1. 73m 2 TBH BUN CREATININE RATIO 12.1 TBH CALCIUM 9.4 8.5 - 10.1 mg/dL TBH BILIRUBIN TOTAL 1.1(H) 0.2 - 1.0 mg/dL TBH ASPARTATE AMINO TRANSFERASE 21 15 - 37 U/L TBH ALANINE AMINOTRANSFERASE 33 16 - 63 U/L TBH ALKALINE PHOSPHATASE 63 46 - 116 U/L TBH TOTAL PROTEIN 8.0 6.4 - 8.2 g/dL TBH ALBUMIN LEVEL 3.9 3.4 - 5.0 g/dL TBH GLOBULIN 4.1 g/dL TBH ALBUMIN GLOBULIN RATIO 1.0 TBH 07/15/2025 11:1 1 AM EDT 07/15/2025 11:12 AM EDT Narrative CLINISYNC - 07/15/2025 11:44 AM EDT Justen LUCIANO CLINISYNC Final Result [facility] * [facility] APTT (07/15/2025 11:11 AM EDT) PARTIAL THROMBOPLASTIN TIME 31.5 22.3 - 36.2 sec TB 07/15/2025 11:1 1 AM EDT 07/15/2025 11:12 AM EDT Narrative CLINISYNC - 07/15/2025 11:55 AM EDT Justen LUCIANO [facility]INIS[facility]NC [facility] * (ABNORMAL) ALL CBC WITH AUTO DIFF (07/15/2025 11:11 AM EDT) TB WBC 8.4 4.0 - 11.0 10 3/uL TBH TB RBC 5.79 4.70 - 6.10 10 6/uL TBH TBH HGB 16.9 14.0 - 18.0 g/dL TB TB HCT 49.1 42.0 - 54.0 % TBH TB MCV 84.8 80.0 - 94.0 fL TBH TB MCH 29.2 25.9 - 34.0 pg TBH TBH MCHC 34.4 29.9 - 35.2 g/dL TBH TBH RDW 13.5 11.0 - 15.0 % TBH TBH PLT 216 150 - 450 10 3/uL TBH TBH MPV 10.0 9.5 - 13.5 fL TBH NEUTROPHILS PERCENT AUTO 78.2(H) 43.0 - 75.0 % TBH LYMPHOCYTES PERCENT AUTO 8.2(L) 20.5 - 60.0 % TBH MONOCYTES PERCENT AUTO 11.0 1.7 - 12.0 % TBH TBH EO % 2.0 0.9 - 7.0 % TBH BASOPHILS PERCENT AUTO 0.4 0.2 - 2.0 % TBH IMMATURE GRANULOCYTES PCT AUTO 0.2 0.0 - 0.5 % TBH NEUTROPHILS ABSOLUTE AUTO 6.6(H) 1.4 - 6.5 10 3/uL TBH LYMPHOCYTES ABSOLUTE AUTO 0.7(L) 1.2 - 3.8 10 3/uL TBH MONOCYTES ABSOLUTE AUTO 0.9(H) 0.3 - 0.8 10 3/uL TBH TBH EO # 0.2 0.0 - 0.7 10 3/uL TBH BASOPHILS ABSOLUTE AUTO 0.0 0.0 - 0.1 10 3/uL TBH IMMATURE GRANULOCYTES ABS AUTO 0.02 0.00 - 0.03 10 3/uL TBH 07/15/2025 11:1 1 AM EDT 07/15/2025 11:12 AM EDT Narrative CLINISYNC - 07/15/2025 11:49 AM EDT us Justen LUCIANO CLINISYNC Final Result CLINISYNC [facility] * ECG 12-LEAD (07/15/2025 10:57 AM EDT) Anatomical Region Laterality Modality Other 07/15/2025 10:5 7 AM EDT Narrative 07/15/2025 8:02 PM EDT The [address] [address] Electrocardiograph Report Signed Patient: KIM NICHOLS MR#: [id number] : 1960 Acct:[id number] Age/Sex: 64 / M ADM Date: 07/15/25 Loc: LAB Attending Dr: Justen LUCIANO Ordering Physician: Justen Cuellar Date of Service: 07/15/25 Procedure(s): ECG 12 lead Accession Number(s): [id number] cc: [facility] Test Date: 2025-07-15 Pat Name: KIM NICHOLS Department: Room: - Gender: Male Fisher Quahog: : 1960 Requested By: AVI CERVANTES Order Number: [id number] Reading MD: ELIAS ANN M.D. Measurements Intervals [place] Rate: 71 P: 18 ID: [id number] QRS: -12 QRSD: 87 T: 19 QT: 374 QTc: 407 Interpretive Statements SINUS RHYTHM LOW QRS VOLTAGE IN PRECORDIAL LEADS [QRS DEFLECTION < 1.0 mV IN CHEST LEADS] Abnormal ECG Compared to ECG 05/07/2024 12:44:31 No significant changes Electronically Signed On 07-15-2025 20:02:29 EDT by ELIAS ANN M.D. Dictated By: ELIAS ANN Signed By: 07/15/25200107/15/252001 DD/ 56 TD/TT: Music Composer: Procedure Note Radiology, Radiologist, MD - 07/15/2025 [place] [address] Electrocardiograph Report Signed Patient: KIM NICHOLS R#: [id number] : 1960cct:[id number] Age/Sex: 64 / MADM Date: 07/15/25 Loc: LAB Attending Dr: Justen LUCIANO Ordering Physician: Justen Cuellar Date of Service: 07/15/25 Procedure(s): ECG 12 lead Accession Number(s): [id number] cc: [facility] Test Date: 2025-07-15 Pat Name: KIM NICHOLS Department: Room: - Gender: Male Fisher Quahog: : 1960 Requested By: AVI CERVANTES Order Number: [id number] Reading MD: ELIAS ANN M.D. Measurements Intervals [place] Rate: 71 P: 18 ID: [id number] QRS: -12 QRSD: 87 T: 19 QT: 374 QTc: 407 Interpretive Statements SINUS RHYTHM LOW QRS VOLTAGE IN PRECORDIAL LEADS [QRS DEFLECTION < 1.0 mV IN CHESTLEADS] Abnormal ECG Compared to ECG 05/07/2024 12:44:31 No significant changes Electronically Signed On 07-15-2025 20:02:29 EDT by ELIAS ANN M.D. Dictated By: ELIAS ANN Signed By:07/15/25200107/15/252001 DD/ 105 TD/TT: Music Composer: us Justen LUCIANO CLINISYNC IMAGING Final Resul t * XR femur bilateral 2 views (07/14/2025 4:08 PM EDT) Anatomical Region Laterality Modality Lower Extremities, Femur Bilateral Radiogr aphic Imaging 07/14/2025 4:08 PM EDT Impressions 07/14/2025 4:12 PM EDT Extensive left and medial fcij-gc-obdq contact the degeneration. Unremarkable hips. Unremarkable ankles. Impression dictated by: Tom Huerta M.D. 07/14/2025 4:10 PM Dictation Location: [facility]--16 Transcribed By: [facility] 07/14/25 1610 Dictated By: Tom Huerta DO 07/14/25 1608 Signed By: <Electronically signed by Tom Huerta DO in OV> 07/14/25 1610 Narrative 07/14/2025 4:12 PM EDT [facility] [place] [address] XRay Report Signed Patient: Kim Nichols MR#: [id number] : 1960 Acct:[id number] Age/Sex: 64 / M ADM Date: 07/14/25 Loc: [facility] Room: [facility] Attending Dr: Justen Cuellar PA-C Copies to: Justen Cuellar PA-C Ordering Provider: Justen Cuellar PA-C Date of Service: 07/14/25 XR/XR femur BI: PRE OP ([id number]) XR/XR tibia/fibula BI: PRE OP History: Preop assessment for left total knee arthroplasty. Plain film imaging of the femurs. Adequate alignment. No acute displaced fracture. The right greater trochanter out of the field of view. No significant hip degeneration. Extensive left knee medial hutu-dz-ruwm contact degeneration. Unremarkable right knee. Plain film imaging of the tibia and fibula bilaterally. No acute displaced fracture. Adequate ankle joints. XR/XR tibia/fibula BI Procedure Note Radiology, Radiologist, MD - 07/14/2025 [facility] [place] [address] [place] [address] XRay Report Signed Patient: Kim Nichols JMR#: [id number] : 1960cct:[id number] Age/Sex: 64 / MADM Date: 07/14/25 Loc: [facility] Room:[facility] Attending Dr: Justen Cuellar PA-C Copies to: Justen Cuellar PA-C Ordering Provider: Justen Cuellar PA-C Date of Service: 07/14/25 XR/XR femur BI: PRE OP ([id number]) XR/XR tibia/fibula BI: PRE OP History: Preop assessment for left total knee arthroplasty. Plain film imaging of the femurs. Adequate alignment. No acute displacedfracture. The right greater trochanter out of the field of view. No significant hipdegeneration. Extensive left knee medial sonh-gz-atqj contact degeneration. Unremarkable right knee. Plain film imaging of the tibia and fibula bilaterally. No acutedisplaced fracture. Adequate ankle joints. XR/XR tibia/fibula BI IMPRESSION: Extensive left and medial ynbf-ou-oehx contact the degeneration.Unremarkable hips. Unremarkable ankles. Impression dictated by: Tom Huerta M.D. 07/14/2025 4:10 PM Dictation Location: [place] [address] Transcribed By: [facility] 07/14/25 1610 Dictated By: Tom Huerta DO 07/14/25 1608 Signed By: <Electronically signed by Tom Huerta, DO in OV> 07/14/25 1610 us Justen LUCIANO IMG XR PROCEDURES Final Resul t * Colonoscopy (07/02/2019 12:00 PM EDT) Anatomical Region Laterality Modality Endoscopy 07/02/2019 12:0 0 PM EDT Narrative 07/02/2019 12:00 PM EDT PERFORMED AT [facility] LOCATION:[id number] Procedure Note CONVERSION, GENERIC - 03/12/2023 PERFORMED AT [facility] LOCATION:[id number] us Severiano Allison MD ENDOSCOPY PROCEDURE ORDERABL ES Final Result from Last 3 Months or Most Recently Relevant to Health Maintenance Insurance [employer] Care Teams Strapper Operator Relationship Specialty Start Date End Date Avi Cervantes MD [address] [facility] [place] [address] PCP - General Family Medicine 06/17/25
--- OUTSIDE RECORDS SUMMARY | 2025-07-28 07:51 | XMS_ITS | Encounter Summary ---
Author Organization [facility] Address [address] [facility] [address] [place] [address] Care Team Providers Care Cabinet Installer Name Role Phone Jason Cervantes MD Primary Care Provider [phone] Reason for Referral * Consultation (Routine) - Authorized Specialty Diagnoses / Procedures Referred By Contac t Referred To Contact Physical Therapy Diagnoses Arthritis of left knee Preop examination Procedures AR OFFICE/OUTPATIENT [facility] 60 MINUTES Justen Cuellar PA [address] [place] [address] Phone: tel: fax: Tigist Mukherjee PT Referral ID Status Reason Start Date Expiration Date Visits Requested Visits Authorized [id number] Authorized Consult and Treat 08/05/2025 01/10/2026 60 60 Encounter Details Date Type Department Care Team (Late st Contact Info) Description 07/14/2025 Orders [facility] [address] [facility] [address] [place] [address] Anastasiya Kimbrough MA Arthritis of left knee (Primary Dx); Preop examination Social History Tobacco Use Types Packs/Day Years [...] Info) Description 08/05/2025 1:30 PM EDT Evaluation [facility] [address] [facility] [address] [place] [address] Tigist Mukherjee, PT 08/25/2025 1:30 PM EDT Office Visit [facility] [address] [place] [address] Corona Peng, LEATHER CARTRIDGE BELT MAKER [address] [place] [address] Scheduled Referrals Name Type Priority Associated Diagnoses Orde r Schedule Ambulatory referral to Physical Therapy Outpatient Referral Routine Arthritis of left knee Preop examination Expected: 07/14/2025 (Approximate), Expires: 01/11/2026 documented as of this encounter Visit Diagnoses Diagnosis Arthritis of left knee- Primary Preop examination Unspecified pre-operative examination documented in this encounter Care Teams Cabinet Installer Relationship Specialty Start Date End Date Jason Cervantes MD [address] [facility] [place] [address] PCP - General Family Medicine 06/17/25 documented as of this encounter
--- OUTSIDE RECORDS SUMMARY | 2025-07-28 07:51 | XMS_ITS | Encounter Summary ---
Author Organization [facility] Address [address] [place] [address] Care Team Providers Care Physician Primary Care Sports Medicine Name Role Phone Jason Cervantes MD Primary Care Provider [phone] Encounter Details Date Type Department Care Team (Latest Contact Info) Description 07/14/2025 Travel Social History Tobacco Use Types Packs/Day [...] Physical Therapy [address] [place] [address] Tigist Mukherjee, EFRA 08/25/2025 1:30 PM EDT Office Visit [facility] [address] [place] [address] Corona Peng, [place] [address] [place], [place] [id number] documented as of this encounter Visit Diagnoses Not on filedocumented in this encounter Care Teams Physician Primary Care Sports Medicine Relationship Specialty Start Date End Date Jason Cervantes MD [address] [place] [address] PCP - General Family Medicine 06/17/25 documented as of this encounter
--- OUTSIDE RECORDS SUMMARY | 2025-07-28 07:51 | XMS_ITS | Encounter Summary ---
Author Organization [facility] Address [address] [facility] [place] [address] Care Team Providers Care Coat Hanger Shaper Machine Operator Name Role Phone Jason Cervantes MD Primary Care Provider [phone] Encounter Details Date Type Department Care Team (Late st Contact Info) Description 07/14/2025 Results Follow-Up [facility] [address] [place] [phone] Justen Cuellar, PA [address] [place] [phone] XR femur bilateral 2 views Social History Tobacco Use Types Packs/Day Years [...] EDT Evaluation [facility] [address] [place] [address] Tigist Mukherjee, EFRA 08/25/2025 1:30 PM EDT Office Visit [facility] [address] [place] [phone] oCrona Peng, EDITORIAL ASSISTANT [address] [place] [address] documented as of this encounter Visit Diagnoses Not on filedocumented in this encounter Care Teams Coat Hanger Shaper Machine Operator Relationship Specialty Start Date End Date Jason Cervantes MD [address] [place] [address] PCP - General Family Medicine 06/17/25 documented as of this encounter
--- OUTSIDE RECORDS SUMMARY | 2025-07-28 07:51 | XMS_ITS | Encounter Summary ---
Author Organization [facility] Address [address] [facility] [place] [address] Care Team Providers Care Etl Analyst Developer Name Role Phone Jason Cervantes MD Primary Care Provider [phone] Encounter Details Date Type Department Care Team (Late st Contact Info) Description 07/14/2025 Bamboo flowsheet [facility] [facility] [address] [facility] [address] [place] [address] Justen Cuellar, PA [address] [place] [address] Social History Tobacco Use Types Packs/Day Years [...] Physical Therapy [address] [place] [address] Tigist Mukherjee PT 08/25/2025 1:30 PM EDT Office Visit [facility] [address] [place] [address] Corona Peng, CONTROL CHEMIST [address] [facility] [place] [address] documented as of this encounter Visit Diagnoses Not on filedocumented in this encounter Care Teams Etl Analyst Developer Relationship Specialty Start Date End Date Jason Cervantes MD [address] [place] [address] PCP - General Family Medicine 06/17/25 documented as of this encounter
--- OUTSIDE RECORDS SUMMARY | 2025-07-28 07:51 | XMS_ITS | Encounter Summary ---
Author Organization [facility] Address [address] [place] [address] Care Team Providers Care Director Of Front Office Name Role Phone Jason Cervantes MD Primary Care Provider [phone] Encounter Details Date Type Department Care Team (Late st Contact Info) Description 07/14/2025 External Result Encounter [facility] External Department Unsolicited Justen Cuellar, PA [address] [place] [address] Social History Tobacco Use Types [...] Physical Therapy [address] [place] [address] Tigist Mukherjee, PT 08/25/2025 1:30 PM EDT Office Visit [facility] [address] [place] [address] Corona Peng, DOWN FILLER [address] [place] [address] documented as of this encounter Procedures Procedure Name Priority Date/Time Associated Diagnosis Comments XR FEMUR 2 VW BILATERAL 07/14/2025 4:08 PM EDT documented in this encounter Results * XR femur bilateral 2 views (07/14/2025 4:08 PM EDT) Anatomical Region Laterality Modality Lower Extremities, Femur Bilateral Radiogr aphic Imaging 07/14/2025 4:08 PM EDT Impressions 07/14/2025 4:12 PM EDT Extensive left and medial ccwk-es-csyy contact the degeneration. Unremarkable hips. Unremarkable ankles. Impression dictated by: Tom Huerta M.D. 07/14/2025 4:10 PM Dictation Location: RADIO-PC-16 Transcribed By: [facility] 07/14/25 1610 Dictated By: Tom Huerta DO 07/14/25 1608 Signed By: <Electronically signed by Tom Huerta DO in OV> 07/14/25 1610 Narrative 07/14/2025 4:12 PM EDT [facility] Main [place] [address] [place] [address] XRay Report Signed Patient: Harrison Nichols MR#: [id number] : 1960 Acct:[id number] Age/Sex: 64 / M ADM Date: 07/14/25 [facility] Type[facility] Attending Dr: Justen Cuellar PA-C Copies to: Justen Cuellar PA-C Ordering Provider: Justen Cuellar PA-C Date of Service: 07/14/25 XR/XR femur BI: PRE OP ([id number]) XR/XR tibia/fibula BI: PRE OP History: Preop assessment for left total knee arthroplasty. Plain film imaging of the femurs. Adequate alignment. No acute displaced fracture. The right greater trochanter out of the field of view. No significant hip degeneration. Extensive left knee medial welr-vn-oqsd contact degeneration. Unremarkable right knee. Plain film imaging of the tibia and fibula bilaterally. No acute displaced fracture. Adequate ankle joints. XR/XR tibia/fibula BI Procedure Note Radiology, Radiologist, MD - 07/14/2025 [facility] Main [place] [address] [place] [address] XRay Report Signed Patient: Harrison Nichols JMR#: [id number] : 1960cct:[id number] Age/Sex: 64 / MADM Date: 07/14/25 Loc: [facility] Room:Type: [facility] Attending Dr: Justen Cuellar PA-C Copies to: Justen Cuellar PA-C Ordering Provider: Justen Cuellar PA-C Date of Service: 07/14/25 XR/XR femur BI: PRE OP ([id number]) XR/XR tibia/fibula BI: PRE OP History: Preop assessment for left total knee arthroplasty. Plain film imaging of the femurs. Adequate alignment. No acute displacedfracture. The right greater trochanter out of the field of view. No significant hipdegeneration. Extensive left knee medial btvr-gg-czhm contact degeneration. Unremarkable right knee. Plain film imaging of the tibia and fibula bilaterally. No acutedisplaced fracture. Adequate ankle joints. XR/XR tibia/fibula BI IMPRESSION: Extensive left and medial klks-qh-ahty contact the degeneration.Unremarkable hips. Unremarkable ankles. Impression dictated by: Tom Huerta M.D. 07/14/2025 4:10 PM Dictation Location: [place] [address] Transcribed By: [facility] 07/14/25 1610 Dictated By: Tom Huerta DO 07/14/25 1608 Signed By: <Electronically signed by Tom Huerta DO in OV> 07/14/25 1610 us Justen GONZALEZ XR PROCEDURES Final Resul t documented in this encounter Visit Diagnoses Not on filedocumented in this encounter Care Teams Director Of Front Office Relationship Specialty Start Date End Date Jason Crevantes MD [address] [place] [address] PCP - General Family Medicine 06/17/25 documented as of this encounter
--- OUTSIDE RECORDS SUMMARY | 2025-07-28 07:51 | XMS_ITS | Encounter Summary ---
Author Organization [facility] Address [address] [place] [address] Phone Care Team Providers Care Recruiter Account Manager Name Role Phone Jason Cervantes MD Primary Care Provider [phone] Encounter Details Date Type Department Care Team (Late st Contact Info) Description 04/20/2019 Orders Only [facility] [address] [place] [address] Conversion, Onbase Social History Tobacco Use Types [...] on filedocumented in this encounter Care Teams Recruiter Account Manager Relationship Specialty Start Date End Date Jason Cervantes MD [address] [place] [address] PCP - General 05/07/22 documented as of this encounter
--- OUTSIDE RECORDS SUMMARY | 2025-07-28 07:52 | XMS_ITS | Encounter Summary ---
Author Organization [facility] Address [address] [facility] [[email or web address] [place] [address] Care Team Providers Care Cartridge Loader Name Role Phone Jason Cervantes MD Primary Care Provider [phone] Encounter Details Date Type Department Care Team (Late st Contact Info) Description 07/18/2025 Results Follow-Up [facility] [address] [place] [address] Justen Cuellar PA [address] [place] [address] ECG 12-LEAD Social History Tobacco Use Types Packs/Day Years [...] Physical Therapy [address] [place] [address] Tigist Mukherjee, EFRA 08/25/2025 1:30 PM EDT [facility] [address] [place] [address] Corona Peng, ARMORED CAR MESSENGER [address] [place] [address] documented as of this encounter Visit Diagnoses Not on filedocumented in this encounter Care Teams Cartridge Loader Relationship Specialty Start Date End Date Jason Cervantes MD [address] [place] [address] PCP - General Family Medicine 06/17/25 documented as of this encounter
--- OUTSIDE RECORDS SUMMARY | 2025-07-28 07:52 | XMS_ITS | Encounter Summary ---
Author Organization [facility] Address [address] [place] [address] Care Team Providers Care Sales Account Leader Name Role Phone Avi Yepez MD Primary Care Provider [phone] Encounter Details Date Type Department Care Team (Late st Contact Info) Description 07/15/2025 Clinisync Result Encounter [facility] External Department Unsolicited Justen Cuellar, PA [address] [place] [address] Social History Tobacco Use Types [...] Physical Therapy [address] [place] [address] Tigist Mukherjee, EFRA 08/25/2025 1:30 PM EDT Office Visit [facility] [address] [place] [address] Corona Peng, TRAILER DRIVER [address] [place] [address] documented as of this encounter Procedures Procedure Name Priority Date/Time Associated Diagnosis Comments ECG 12-LEAD 07/15/2025 10:57 AM EDT documented in this encounter Results * ECG 12-LEAD (07/15/2025 10:57 AM EDT) Anatomical Region Laterality Modality Other 07/15/2025 10:5 7 AM EDT Narrative 07/15/2025 8:02 [place] [address] Electrocardiograph Report Signed Patient: KIM NICHOLS MR#: [id number] : 1960 Acct:[id number] Age/Sex: 64 / M ADM Date: 07/15/25 Loc: LAB Attending Dr: Justen LUCIANO Ordering Physician: Justen Cuellar Date of Service: 07/15/25 Procedure(s): ECG 12 lead Accession Number(s): [id number] cc: [facility] Test Date: 2025-07-15 Pat Name: KIM NICHOLS Department: Room: - Gender: Male Senior Physical Therapist: : 1960 Requested By: AVI YEPEZ Order Number: [id number] Reading MD: ELIAS ANN M.D. Measurements Intervals [place] Rate: 71 P: 18 WV: 165 QRS: -12 QRSD: 87 T: 19 QT: 374 QTc: 407 Interpretive Statements SINUS RHYTHM LOW QRS VOLTAGE IN PRECORDIAL LEADS [QRS DEFLECTION < 1.0 mV IN CHEST LEADS] Abnormal ECG Compared to ECG 05/07/2024 12:44:31 No significant changes Electronically Signed On 07-15-2025 20:02:29 EDT by ELIAS ANN M.D. Dictated By: ELIAS ANN Signed By: 07/15/25200107/15/252001 DD/ 105 TD/TT: Power Line Installer And Repairer: Procedure Note Radiology, Radiologist, - 07/15/[address] [address] Electrocardiograph Report Signed Patient: KIM NICHOLS JMR#: [id number] : 1960cct:[id number] Age/Sex: 64 / MADM Date: 07/15/25 Loc: LAB Attending Dr: Justen LUCIANO Ordering Physician: Justen Cuellar Date of Service: 07/15/25 Procedure(s): ECG 12 lead Accession Number(s): [id number] cc: [facility] Test Date: 2025-07-15 Pat Name: KIM NICHOLS Department: Room: - Gender: Male Senior Physical Therapist: : 1960 Requested By: AVI YEPEZ Order Number: [id number] Reading MD: ELIAS ANN M.D. Measurements Intervals [place] Rate: 71 P: 18 WV: 165 QRS: -12 QRSD: 87 T: 19 QT: 374 QTc: 407 Interpretive Statements SINUS RHYTHM LOW QRS VOLTAGE IN PRECORDIAL LEADS [QRS DEFLECTION < 1.0 mV IN CHESTLEADS] Abnormal ECG Compared to ECG 05/07/2024 12:44:31 No significant changes Electronically Signed On 07-15-2025 20:02:29 EDT by ELIAS ANN M.D. Dictated By: ELIAS ANN Signed By:07/15/25200107/15/252001 DD/ 1057 TD/TT: Power Line Installer And Repairer: us Justen [facility] Final Resul t documented in this encounter Visit Diagnoses Not on filedocumented in this encounter Care Teams Sales Account Leader Relationship Specialty Start Date End Date Avi Yepez MD [address] [place] [address] PCP - General Family Medicine 06/17/25 documented as of this encounter
--- OUTSIDE RECORDS SUMMARY | 2025-07-28 07:52 | XMS_ITS | Encounter Summary ---
Author Organization [facility] Address [address] [place] [address] Care Team Providers Care Money Room Teller Name Role Phone Jason Cervantes MD Primary Care Provider [phone] Encounter Details Date Type Department Care Team (Late st Contact Info) Description 07/15/2025 External Result Encounter [facility] External Department Unsolicited Justen Cuellar, PA [address] [place] [address] Social History Tobacco Use Types [...] Therapy [address] [place] [address] Tigist Mukherjee, PT 08/25/2025 1:30 PM EDT Office Visit [facility] [address] [place] [address] Corona Peng, REGIONAL TRAINER [address] [place] [address] documented as of this encounter Procedures Procedure Name Priority Date/Time Associated Diagnosis Comments CULTURE, URINE, ROUTINE Routine 07/15/2025 1:50 PM EDT documented in this encounter Results * Urine culture (07/15/2025 1:50 PM EDT) Pathologist [facility] NOTE No Growth 2 Days 07/17/2025 10:17 AM EDT [facility] Urine Urine specimen obtained by clean catch procedure / Unknown 07/15/2025 1:50 PM EDT 07/15/2025 8:32 PM EDT Justen LUCIANO LAB MICROBIOLOGY - GENERAL OR DERABLES Final Result Performing Organization Address City/State/[facility] de Phone Number [facility] [address] [place] [address], [facility] [address] [place] [address] documented in this encounter Visit Diagnoses Not on filedocumented in this encounter Care Teams Money Room Teller Relationship Specialty Start Date End Date Jason Cervantes MD [address] [place] [address] PCP - General Family Medicine 06/17/25 documented as of this encounter
--- OUTSIDE RECORDS SUMMARY | 2025-07-28 07:52 | XMS_ITS | Encounter Summary ---
Author Organization [facility] Address [address] [facility] [place] [address] Care Team Providers Care Senior Electronics Engineer Name Role Phone Jason Cervantes MD Primary Care Provider [phone] Encounter Details Date Type Department Care Team (Late st Contact Info) Description 07/15/2025 Results Follow-Up [facility] [address] [place] [address] Justen Cuellar, PA [address] [place] [address] [facility] CMP (CMP) (FOR REMOTE [facility] USE), ALL CBC WITH AUTO DIFF, SRMCOH PROTHROMBIN TIME INR W/O COUM, Additional followed-up results: 2 Social History Tobacco Use Types Packs/Day Years [...] Physical Therapy [address] [place] [address] Tigist Mukherjee, PT 08/25/2025 1:30 PM EDT Office Visit [facility] [address] [place] [address] Corona Peng, RUG SHAMPOOER [address] [place] [address] documented as of this encounter Visit Diagnoses Not on filedocumented in this encounter Care Teams Senior Electronics Engineer Relationship Specialty Start Date End Date Jason Cervantes MD [address] [place] [address] PCP - General Family Medicine 06/17/25 documented as of this encounter
--- OUTSIDE RECORDS SUMMARY | 2025-07-28 07:52 | XMS_ITS | Clinical Summary ---
Author Organization [facility] Address [address] [place] [address] Care Team Providers Care Molecular Biologist Name Role Phone Jason Cervantes MD Unavailable [phone] Jason Cervantes MD Primary Care Provider [phone] Allergies Active Allergy Reactions Criticality Noted Date [...] original vaccine, a ge 12+ yr, monovalent (Noquo - PURPLE TOP) 09/03/2021,02/13/2021,01/13/2021,2020 COVID-19 original vaccine, [...] is lower risk 4 06/02/2023 Data from: https://www.neighborhoodatlas.medicine.[facility]/. Last address used for calculation [address] 06/02/2023 Sex and Gender Information Value [...] 1-dose 75+ series) 2036 Insurance Care Teams Molecular Biologist Relationship Specialty Start Date End Date Jason Cervantes MD [address] [place] [address] PCP - General Family Medicine 06/25/23 Jason Cervantes MD [address] [place] [address] Referring Family Medicine 04/24/23
--- OUTSIDE RECORDS SUMMARY | 2025-07-28 07:52 | XMS_ITS | Clinical Summary ---
Author Organization [facility] Address [address] [place] [address] Care Team Providers Care Pillowcase Sewer Name Role Phone Jason Cervantes MD Primary Care Provider [phone] Allergies Active Allergy Reactions Criticality Noted Date [...] in the morning. 12/27/2024 Active HYDROcodone-sunshine taminophen ([place]) 5-325 mg tablet Take 1 tablet by [...] complete this topic Insurance [employer] Care Teams Pillowcase Sewer Relationship Specialty Start Date End Date Jason Cervantes MD [address] [facility] [address] [address] PCP - General 09/09/24
--- OUTSIDE RECORDS SUMMARY | 2025-07-28 07:52 | XMS_ITS | Clinical Summary ---
Author Organization [facility] Address [address] [place] [address] Phone Care Team Providers Care Loss Prevention Investigator Name Role Phone Jason Cervantes MD Primary Care Provider [phone] Allergies No known active allergies Medications rosuvastatin (Crestor) 20 mg tabletIndication s:Hyperlipidemia , unspecified TAKE 1 TABLET BY MOUTH EVERYDAY AT BEDTIME 90 tablet 3 5 Active Encounters Date Type Department Care Team Description 06/21/[address] [facility] [address] [address] Carlota Walker MD Hyperlipidemia, unspecified [...] age to complete this topic Care Teams Loss Prevention Investigator Relationship Specialty Start Date End Date Jason Cervantes MD [address] [facility] [place] [address] PCP - General 05/07/22
--- OUTSIDE RECORDS SUMMARY | 2025-07-28 07:52 | XMS_ITS | Encounter Summary ---
Author Organization [facility] Address [address] [place] [address] Phone Care Team Providers Care Hand Laminator Name Role Phone Jason Cervantes MD Primary Care Provider [phone] Encounter Details Date Type Department Care Team (Late st Contact Info) Description 12/20/2021 Orders Only [facility] [address] [place] [address] Conversion, Onbase Social History Tobacco Use Types [...] on filedocumented in this encounter Care Teams Hand Laminator Relationship Specialty Start Date End Date Jason Cervantes MD [address] [facility] [place] [address] PCP - General 05/07/22 documented as of this encounter
--- OUTSIDE RECORDS SUMMARY | 2025-07-28 07:52 | XMS_ITS | Patient Health Record ---
Author Organization [facility] Address [address] [place] [address] Care Team Providers Care Manager Six Sigma Name Role Phone Del Cervantes Primary Care Provider Elis Salcedo Unavailable [phone] Allergies Allergen (clinical drug ingredient) Drug/Non Drug Allergy documented on EMR Reaction Allergy Type Onset Date Status amoxicillin Amoxicillin hives Drug Allergy Act kriss Results Component Value Reference Range Notes CBC AUTO DIFF Reviewed date:04/21/2025 07:35:49 PM Interpretation: Performing Lab: Notes/Report: [facility] , White Blood Count 6.4 4.0-11.0 [...] 3/uL Performing Lab: see note ML - [facility] GLYCOHEMOGLOBIN A1C Reviewed date:04/21/2025 07:35:49 PM Interpretation: Performing Lab: Notes/Report: [facility] , Glycohemoglobin A1C 5.5 4.5-6.2 % ADA RECOMMENDED LIMIT 4.0 - 6.0 ADA THERAPEUTIC TARGET < 7.0 > 7.0 ACTION SUGGESTED Estimated Average Glucose 111 Performing Lab: see note ML - [facility] INSULIN Reviewed date:04/24/2025 03:02:25 PM Interpretation: Performing Lab: Notes/Report: [facility] , Insulin 20.8 2.6-24.9 uIU/mL [address] [place], [place] [id number] Edi Architect: Adam Byers PhD, Phone: [phone] Performed at: [facility] Performing Lab: see note - [facility] LB T4 Reviewed date:04/21/2025 07:35:49 PM Interpretation: Performing Lab: Notes/Report: [facility] , T4 Thyroxine 8.50 4.50-12.10 ug/dL Performing Lab: see note ML - [facility] LB TSH Reviewed date:04/21/2025 07:35:49 PM Interpretation: Performing Lab: Notes/Report: [facility] , Thyroid Stimulating Hormone 1.589 0.358-3.740 uIU/mL Performing Lab: see note [facility] LB PROF 14(COMP METB) Reviewed date:07/15/2025 05:18:53 PM Interpretation: Performing Lab: Notes/Report: [facility] , Sodium 140 136-145 mmol/L Potassium 3.6 3.5-5.1 mmol/L Chloride 103 98-107 mmol/L Carbon Dioxide 30.0 21.0-32.0 mmol/L Anion Gap 10.6 Glucose 116 74-106 mg/dL Blood Urea Nitrogen 14.0 7.0-18.0 mg/dL Creatinine 1.16 0.70-1.30 mg/dL Estimated GFR ( Tatiana >60 >=60 mL/min/1.73m 2 Estimated GFR (Non- Candelaria >60 >=60 mL/min/1.73m 2 BUN Creatinine Ratio 12.1 Calcium 9.4 8.5-10.1 mg/dL Bilirubin Total 1.1 0.2-1.0 mg/dL Aspartate Amino Transferase 21 15-37 U/L Alanine Aminotransferase 33 16-63 U/L Alkaline Phosphatase 63 46-116 U/L Total Protein 8.0 6.4-8.2 g/dL Albumin Level 3.9 3.4-5.0 g/dL Globulin 4.1 Albumin Globulin Ratio 1.0 Performing Lab: see note ML - [facility] UA (CLEAN or CATCH) MICROSCO PIC IF INDICATE Reviewed date:07/15/2025 05:18:53 PM Interpretation: Performing Lab: Notes/Report: [facility] , Color Urine YELLOW YELLOW Clarity Urine CLEAR CLEAR Specific [place] Urine 1.020 1.005-1.025 pH Urine 7.0 5.0-9.0 Protein Urine TRACE NEG/TRACE mg/dL Glucose Urine UA NEGATIVE NEGATIVE mg/dL Bilirubin Urine NEGATIVE NEGATIVE Ketones Urine NEGATIVE NEGATIVE mg/dL Blood Urine NEGATIVE NEGATIVE Nitrite Urine NEGATIVE NEGATIVE Urobilinogen Urine >=8.0 0.2-1.0 EU/dL Leukocyte Esterase Urine NEGATIVE NEGATIVE Urine Microscopic Indicated NO Performing Lab: see note ML - [facility] LB Prothrombin Time INR Reviewed date:07/15/2025 05:18:53 PM Interpretation: Performing Lab: Notes/Report: [facility] , Prothrombin Time 10.9 9.0-11.6 sec INR 1.03 2.0-3.0 CONDITIONS NOT LISTED BELOW 2.5-3.5 FOR PROSTHETIC HEART VALVE REPLACEMENT DESIRED INR: 2.5-3.5 RECURRENT THROMBOSIS Performing Lab: see note - [facility] ECG 12 lead Reviewed date:07/16/2025 03:52:01 PM Interpretation: Performing Lab: Notes/Report: Source Facility: [facility]-[address] [place] [address] [place] [address] Electrocardiograph Report Signed Patient: KIM NICHOLS MR#: [id number] : 1960 Acct:[id number] Age/Sex: 64 / M ADM Date: 07/15/25 Loc: LAB Attending Dr: Justen LUCIANO Ordering Physician: Justen Cuellar Date of Service: 07/15/25 Procedure(s): ECG 12 lead Accession Number(s): [id number] cc: [facility] Test Date: 2025-07-15 Pat Name: KIM NICHOLS Department: Room: - 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 Measurements Intervals [place] Rate: 71 P: 18 LA: 165 QRS: -12 QRSD: 87 T: 19 QT: 374 QTc: 407 Interpretive Statements SINUS RHYTHM LOW QRS VOLTAGE IN PRECORDIAL LEADS [QRS DEFLECTION < 1.0 mV IN CHEST LEADS] Abnormal ECG Compared to ECG 05/07/2024 12:44:31 No significant changes Electronically Signed On 07-15-2025 20:02:29 EDT by ELIAS ANN M.D. Dictated By: ELIAS ANN Signed By: 07/15/25200107/15/252001 DD/ 1057 TD/TT: Incubator Operator: PTT Reviewed date:07/15/2025 05:18:53 PM Interpretation: Performing Lab: Notes/Report: [facility] , Partial Thromboplastin Time 31.5 22.3-36.2 sec Performing Lab: see note ML - [facility] LB CBC AUTO DIFF Reviewed date:07/15/2025 05:18:53 PM Interpretation: Performing Lab: Notes/Report: [facility] , White Blood Count 8.4 4.0-11.0 10 3/uL Red Blood Count 5.79 4.70-6.10 10 6/uL Hemoglobin 16.9 14.0-18.0 g/dL Hematocrit 49.1 42.0-54.0 % Mean Corpuscular Volume 84.8 80.0-94.0 fL Mean Corpuscular Hemoglobin 29.2 25.9-34.0 pg Mean Corpuscular HGB Conc 34.4 29.9-35.2 g/dL Red Cell Distribution Width 13.5 11.0-15.0 % Platelet Count 216 150-450 10 3/uL Mean Platelet Volume 10.0 9.5-13.5 fL Neutrophils Percent Auto 78.2 43.0-75.0 % Lymphocytes Percent Auto 8.2 20.5-60.0 % Monocytes Percent Auto 11.0 1.7-12.0 % Eosinophils Percent Auto 2.0 0.9-7.0 % Basophils Percent Auto 0.4 0.2-2.0 % Immature Granulocytes Pct Auto 0.2 0.0-0.5 % Neutrophils Absolute Auto 6.6 1.4-6.5 10 3/uL Lymphocytes Absolute Auto 0.7 1.2-3.8 10 3/uL Monocytes Absolute Auto 0.9 0.3-0.8 10 3/uL Eosinophils Absolute Auto 0.2 0.0-0.7 10 3/uL Basophils Absolute Auto 0.0 0.0-0.1 10 3/uL Immature Granulocytes Abs Auto 0.02 0.00-0.03 10 3/uL Performing Lab: see note ML - [facility] LB PSA SCREENING Reviewed date:04/21/2025 07:35:49 PM Interpretation: Performing Lab: Notes/Report: [facility] , Prostate Specific Antigen Scrn 1.36 <=4.00 ng/mL Performing Lab: see note ML - [facility] LB PROF 14(COMP METB) Reviewed date:04/21/2025 07:35:49 PM Interpretation: Performing Lab: Notes/Report: [facility] , Sodium 138 136-145 mmol/L Potassium 3.3 [...] 1.0 Performing Lab: see note ML - [facility] LIPID PROFILE Reviewed date:04/21/2025 07:35:49 PM Interpretation: Performing Lab: Notes/Report: [facility] , Triglycerides 86 <=150 mg/dL Cholesterol [...] RISK Performing Lab: see note ML - [facility] FREE T3 Reviewed date:04/21/2025 07:35:49 PM Interpretation: Performing Lab: Notes/Report: [facility] , Free T3 2.64 2.18-3.98 pg/mL Performing Lab: see note ML - [facility] LB Urine Culture - [facility] Reviewed date:07/18/2025 01:15:38 PM Interpretation: Performing Lab: Notes/Report: [facility] , Urine Culture - [facility] See Below For Report Urine Culture - [facility] No Growth 2 Days Urine Culture - FR Urine Culture - FR No Growth 2 Days Urine Culture - FR Testing performed at [facility] Urine Culture - [facility] No Growth 2 Days Urine Culture - [place] [address], [place] [address] Urine Culture - [facility] No Growth 2 Days Performing Lab: see note ML - [facility] LB XR thoracic spine 3V Reviewed date:04/21/2025 07:35:49 PM Interpretation: Performing Lab: Notes/Report: Source Facility: [facility]-[address] [place] [address] [place] [address] XRay Report Signed Patient: KIM NICHOLS MR#: [id number] : 1960 Acct:[id number] Age/Sex: 64 / M ADM Date: 04/21/25 Loc: LAB Attending Dr: Avi Cervantes M.D. Ordering Physician: Avi Cervantes M.D. Date of Service: 04/21/25 Procedure(s): XR thoracic spine 3V Accession Number(s): [id number] cc: Avi Cervantes M.D. The [place] [address] Patient Name: KIM NICHOLS MRN: [id number] date: 1960 Sex: M Assigned Patient Location: LAB Current Patient Location: LAB Accession/Order Number: [id number] Exam Date: 04/21/2025 08:46 Report Date: 04/21/2025 08:48 At the request of: AVI CERVANTES MD Procedure: XR thoracic spine 3V THORACIC [...] Ellis M.D. 04/21/2025 8:48 AM Dictation Location: [place] [address] Electronically authenticated by: [id number] Y Date: 04/21/2025 08:48 Dictated By: Stacy Ellis M.D. Signed By: 04/21/25849 DD/ 7 TD/TT: Incubator Operator: Reason For Referral Diagnosis 1 Chronic midline low back pain without sciatica (M54.50) Referral Organization [facility] Medicine Referring Provider First Name Del Referring Provider Last Name Billy Referring Provider Speciality Family Med icine Referred Provider Pain Management, TB Referred Provider Specialty Pain Medicin e Referral Priority Routine Medications Medication SIG (Take, Route, Frequency, Duration) Notes Start Date End Date Status Aspirin Adult Low Dose 81 MG 1 tablet Orally Once a day Active Rosuvastatin Calcium 20 MG 1 tablet Orally Once a day; Duration: 7 days Active HYDROcodone-Acetaminop hen 5-325 MG 1 tablet as needed - max sdose 2/day Orally every 6 hrs PRN 02/17/2025 Active Protonix 40 MG 1 tablet Orally Once a day; Duration: 90 days 09/10/2024 Active Gabapentin 300 MG TAKE 2 CAPSULES EVERY MORNING, 1 CAPSULE AT MIDDAY, AND 2 CAPSULES AT BEDTIME; Duration: 90 Active Metoprolol Tartrate 25 MG TAKE 1 TABLET 2 TIMES DAILYWITH FOOD; Duration: 90 Active Urea 40 % 1 application as needed to bottom of feet Externally Once a day; Duration: 30 days Dispense large trade size bottle/tube 10/07/2024 Active Eliquis 5 MG TAKE 1 TABLET BY MOUTH TWICE A DAY; Duration: 90 Active Luzu 1 % 1 application to bottom and sides of both feet Externally Once a day; Duration: 14 days Patient failed OTC lotrimin and Rx lotrisone in past 10/07/2024 Active Chlorthalidone 25 MG TAKE 1 TABLET BY MOUTH EVERY MORNING WITH FOOD FOR 90 DAYS; Duration: 90 Active Triamcinolone Acetonide 0.1 % 1 application Externally bid 12/07/2024 Active HYDROcodone-Acetaminop hen 5-325 MG 1 tablet as needed Orally every 6 hrs; Duration: 14 days 07/19/2025 Active Klor-Con M20 20 MEQ TAKE 1 TABLET 2 TIMES DAILYWITH FOOD; Duration: 90 Active Terbinafine HCl 1 % 1 application Externally bid; Duration: 21 days 10/12/2024 Active Social History Tobacco Use: Social History Observation Description Date Details (start date - stop date) Never Smoker NA - NA Tobacco Use/Smoking Question Answer Notes Patient is a nonsmoker Problems Problem Type SNOMED Code ICD Code Onset Dates Problem Status W/U Status Risk Notes Problem Gastro-esophageal reflux disease without esophagitis (061791750) Gastro-esophageal reflux disease without esophagitis (K21.9) Active confirmed Problem Osteoarthritis of knee (121375207) Unilateral primary osteoarthritis, left knee (M17.12) Active confirmed Problem Displacement of lumbar intervertebral disc without myelopathy (92897863) Other intervertebral disc displacement, lumbosacral region (M51.27) Active confirmed Problem Other specified symptoms and signs involving the circulatory and respiratory systems (R09.89) Active confirmed Problem Chest pain (45305657) Chest pain (R07.9) Active confirmed Problem Atrial fibrillation (42636991) Atrial fibrillation (I48.91) Active confirmed Problem History of cholecystectomy (707105459) History of cholecystectomy (Z90.49) Active confirmed Problem Osteoarthritis of knee (526122643) Knee osteoarthritis (M17.9) Active confirmed Problem Migraine (49902346) Migraine (G43.909) Active confirmed Problem Benign essential hypertension (2294785) Benign essential hypertension (I10) Active confirmed Problem Lumbar radiculopathy (513255790) Lumbar radiculopathy (M54.16) Active confirmed Problem Acute sinusitis (73427371) Acute sinusitis (J01.90) Active confirmed Problem Well adult (907742000) Well adult (Z00.00) Active confirmed Problem Erectile dysfunction (disorder) (699028733) Impotence (N52.9) Active confirmed Problem Willis cyst, 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) Active confirmed Problem Body mass index 40+ - morbidly obese (532356202) BMI 40.0-44.9, adult (Z68.41) Active confirmed Problem Atrial fibrillation (57529317) New onset a-fib (I48.91) Active confirmed Problem Spinal stenosis of lumbar region (31590011) Spinal stenosis, lumbar region without neurogenic claudication (M48.061) Active confirmed Problem Osteoarthritis of knee (281600580) Knee osteoarthritis (M17.10) Active confirmed Problem Dyspnea on exertion (02358924) MILIAN (dyspnea on exertion) (R06.00) Active confirmed Problem Chronic low back pain (finding) (286994954) Chronic midline low back pain without sciatica (M54.50) Active confirmed Vital Signs Heart Rate 76 /min 10/07/2024 Temperature 98 degrees Fahrenheit 10/07/2024 Respiratory Rate 16 /min 10/07/2024 Oximetry 98 % 10/07/2024 Blood pressure diastolic 82 mm Hg 07/19/2025 Height 70 in 07/19/2025 Blood pressure systolic 138 mm Hg 07/19/2025 Weight 278.4 lbs 07/19/2025 BMI 39.94 kg/m2 07/19/2025 Procedures Procedure Date Ordered Date Performed Result Body Sit e *CARDIO Stress Test - Lexiscan Nuclear 07/19/2025 N/A Encounters Encounter Location Date Provider Diagnosis [facility] [address] [place] [address] 09/10/2024 Del Hoy Benign essential hypertension I10 ; Well adult Z00.00 and Chest pain R07.9 [facility] [address] [place] [address] 12/07/2024 Del Hoy Benign essential hypertension I10 ; Chronic midline low back pain without sciatica M54.50 and Atrial fibrillation I48.91 [facility] [address] [place] [address] 04/11/2025 Del Hoy Knee osteoarthritis M17.10 ; Thoracic back pain M54.6 and Well adult Z00.00 [facility] [address] [place] [address] 07/19/2025 Del Hoy Atrial fibrillation I48.91 ; Chest pain R07.9 and Knee osteoarthritis M17.9 [facility] ([facility]) [address] [place] [address] [place] [address] 10/07/2024 Elis Salcedo Tinea pedis B35.3 [facility] [address] [place] [address] 10/04/2024 Del Hoy Benign essential hypertension I10 [facility] (PODIATRY) [address] [place] [address] [place] [address] 10/12/2024 Elis Salcedo [facility] [address] [place] [address] 02/17/2025 Del Hoy Benign essential hypertension I10 [facility] [address] [facility] [place] [address] 04/21/2025 Del Hoy Elevated bilirubin R17 [facility] [address] [place] [address] 05/12/2025 Del Hoy Knee osteoarthritis M17.10 [facility] [address] [place] [address] 06/20/2025 Del Hoy Knee osteoarthritis M17.10 [facility] [address] [place] [address] 07/13/2025 Del Hoy Assessments Encounter Date Diagnosis (ICD Code) Assessment [...] symptoms recurred.Prior to that he tried several [id number] remedies which failed to provide relief in [...] back pain without sciatica (ICD-10 - M54.50) 10/04/2024 Benign essential hypertension (ICD-10 - I10) 02/17/2025 Benign essential hypertension (ICD-10 - I10) 04/21/2025 Elevated bilirubin (ICD-10 - R17) 05/12/2025 Knee osteoarthritis (ICD-10 - M17.10) 06/20/2025 Knee osteoarthritis (ICD-10 - M17.10) 04/11/2025 Knee osteoarthritis (ICD-10 - M17.10) neecs new on 0 nees pain meds due to new knee 04/11/2025 Thoracic back pain (ICD-10 - M54.6) 04/11/2025 Well adult (ICD-10 - Z00.00) 07/19/2025 Atrial fibrillation (ICD-10 - I48.91) 07/19/2025 Chest pain (ICD-10 - R07.9) INtermittant chest pain 07/19/2025 Knee osteoarthritis (ICD-10 - M17.9) Cleared for OR if passes stress test 12/07/2024 Atrial fibrillation (ICD-10 - I48.91) 09/10/2024 Chest pain (ICD-10 - R07.9) 07/19/2025 Other Discussed increasing physical exercise and continuing/imple menting a healthier diet. Plan Of Treatment Pending Test Test Name [...] thoracic spine 3V 06/16/2024 PSA, SCREENING 04/11/2025 *CARDIO Stress Test - Lexiscan Nuclear 0 07/19/2025 CMP (COMP MET ELY) w/eGFR CKD-EPI 2024 CBC WITH DIFF 04/11/2025 Insurance Providers Payer Name Payer Address Payer Phone Subscriber Number Group Number Insured Name Patient Relationship to Insured Coverage Start Date Coverage End Date [employer] RAJINDER MABRY [phone] [id number] Stella Nichols Spouse - patient is the [...] essential hypertension I10 Surgical History Surgery Date(Month/Year) L4-5, L5-S1 Medial Branch Block- Dr Rao 07/04/25 EGD with biopsy of gastric polyp and col onoscopy to cecum 08/25/2024 Right Knee Scope 07/29/24 Laproscopic Gall Bladder Removal Septal Plasty Hospitalization History Reason Date(Month/Year) see above
--- OUTSIDE RECORDS SUMMARY | 2025-07-28 07:52 | XMS_ITS | Encounter Summary ---
Author Organization [facility] Address [address] [place] [address] Care Team Providers Care Marine Operations Coordinator Name Role Phone Jason Cervantes MD Primary Care Provider [phone] Encounter Details Date Type Department Care Team (Late st Contact Info) Description 07/15/2025 Clinisync Result Encounter [facility] External Department Unsolicited Justen Cuellar, PA [address] [place] [address] Social History Tobacco Use Types [...] Physical Therapy [address] [place] [address] Tigist Mukherjee, EFRA 08/25/2025 1:30 PM EDT Office Visit [facility] [address] [place] [address] Corona Peng, BESSEMER CONVERTER BLOWER [address] [place] [address] documented as of this encounter Procedures Procedure Name Priority Date/Time Associated Diagnosis Comments URINE CULTURE - [facility] Routine 07/15/2025 1:50 PM EDT [facility] UA (CLEAN/CATCH) MICROSCOPIC IF INDICATE Routine 07/15/2025 1:50 PM EDT [facility] PROTHROMBIN TIME INR W/O COUM Routine 07/15/2025 11:11 AM EDT [facility] CMP (CMP) (FOR REMOTE [facility] USE) Routine 07/15/2025 11:11 AM EDT [facility] APTT Routine 07/15/2025 11:11 AM EDT ALL CBC WITH AUTO DIFF Routine 07/15/2025 11:11 AM EDT documented in this encounter Results * URINE CULTURE - [facility] (07/15/2025 1:50 PM EDT) Pathologist [facility] URINE CULTURE - [facility] Urine Culture - [facility] No Growth 2 Days [facility] URINE CULTURE [facility] URINE CULTURE - [facility] Testing performed at [facility] URINE CULTURE - [facility] [address] [place] [address] [facility] 07/15/2025 1:50 PM EDT 07/15/2025 1:58 PM EDT Narrative [facility] - 07/18/2025 10:46 AM EDT us Justen LUCIANO LAB BLOOD ORDERABLES Final Re sult [facility] * [facility] UA (CLEAN/CATCH) MICROSCOPIC IF INDICATE (07/15/2025 1:50 PM EDT) COLOR URINE YELLOW YELLOW [facility] CLARITY URINE [...] Narrative [facility] - 07/15/2025 2:34 PM EDT Justen LUCIANO CLINISYJUAN Final Result [facility] * [facility] APTT (07/15/2025 11:11 AM EDT) PARTIAL THROMBOPLASTIN TIME 31.5 22.3 - 36.2 sec [facility] 07/15/2025 11:1 1 AM EDT 07/15/2025 11:12 AM EDT Narrative [facility] - 07/15/2025 11:55 AM EDT Justen LUCIANO CLINISYJUAN Final Result Performing Organization Address City/[facility] Co de Phone Number [facility] * [facility] PROTHROMBIN TIME INR W/O COUM (07/15/2025 11:11 AM EDT) PROTHROMBIN TIME 10.9 9.0 - 11.6 sec TB TB INR 1.03 [facility] Comment: DESIRED INR: 2.0-3.0 CONDITIONS NOT LISTED BELOW 2.5-3.5 FOR PROSTHETIC HEART VALVE REPLACEMENT 2.5-3.5 RECURRENT THROMBOSIS 07/15/2025 11:1 1 AM EDT 07/15/2025 11:12 AM EDT Narrative [facility] - 07/15/2025 11:55 AM EDT Justen LUCIANO [facility]INIS[facility]NC Final Result [facility] * (ABNORMAL) ALL CBC WITH AUTO DIFF (07/15/2025 11:11 AM EDT) [facility] TB WBC 8.4 4.0 - 11.0 10 3/uL [facility] TBH RBC 5.79 4.70 - 6.10 10 6/uL [facility] TBH HGB 16.9 14.0 - 18.0 g/dL [facility] TBH HCT 49.1 42.0 - 54.0 % [facility] TBH MCV 84.8 80.0 - 94.0 fL [facility] TBH MCH 29.2 25.9 - 34.0 pg TBH [...] us Justen LUCIANO CLINISYNC Final Result [facility] * (ABNORMAL) [facility] CMP (CMP) (FOR REMOTE [facility] USE) (07/15/2025 11:11 AM EDT) SODIUM 140 136 - 145 mmol/L [facility] POTASSIUM 3.6 3.5 - 5.1 mmol/L [facility] CHLORIDE 103 98 - 107 mmol/L [facility] CARBON DIOXIDE 30.0 21.0 - 32.0 mmol/L [facility] ANION GAP 10.6 [facility] GLUCOSE 116(H) 74 - 106 mg/dL [facility] BLOOD UREA NITROGEN 14.0 7.0 - 18.0 mg/dL [facility] CREATININE 1.16 0.70 - 1.30 mg/dL [facility] TBH EGFR-AF JAPANESE >60 >=60 mL/min/1. 73m 2 TB[facility] TBH EGFR-NON AF JAPANESE >60 >=60 mL/min/1. 73m 2 [facility] BUN [...] Narrative CLINISYNC - 07/15/2025 11:44 AM EDT us Justen LUCIANO CLINISYNC Final Result [facility] documented in this encounter Visit Diagnoses Not on filedocumented in this encounter Care Teams Marine Operations Coordinator Relationship Specialty Start Date End Date Jason Cervantes MD [address] [place] [address] PCP - General Family Medicine 06/17/25 documented as of this encounter
--- OUTSIDE RECORDS SUMMARY | 2025-07-28 07:52 | XMS_ITS | Encounter Summary ---
Author Organization [facility] Address [address] [place] [address] Phone Care Team Providers Care Comic Artist Name Role Phone Jason Cervantes MD Primary Care Provider [phone] Reason for Visit * Reason Comments Med Refill Encounter Details Date Type Department Care Team ([facility] st Contact Info) Description 06/21/2025 Refill [facility] [address] [facility] [address] [place] [address] Carlota Walker MD [address] [place] [address] Hyperlipidemia, unspecified Social History Tobacco [...] unspecified documented in this encounter Care Teams Comic Artist Relationship Specialty Start Date End Date Jason Cervantes MD [address] [facility] [address] [place] [id number] PCP - General 05/07/22 documented as of this encounter
--- OUTSIDE RECORDS SUMMARY | 2025-07-28 07:52 | XMS_ITS | Encounter Summary ---
Author Organization [facility] Address [address] [place] [address] Phone Care Team Providers Care Exercise Planner Name Role Phone Jason Cervantes MD Primary Care Provider [phone] Encounter Details Date Type Department Care Team (Late st Contact Info) Description 09/26/2020 Orders Only [facility] [address] [place] [address] Conversion, Onbase Social History Tobacco Use Types [...] on filedocumented in this encounter Care Teams Exercise Planner Relationship Specialty Start Date End Date Jason Cervantes MD [address] [place], [place] [phone] PCP - General 05/07/22 documented as of this encounter
--- NOTE | 2025-07-28 07:55 | NM_ITS ---
Patient Name: KIM BOWEN MR#: [id number] : 1960 Exam Date: 07/28/2025 Ordering Doctor: DR AVI YEPEZ . RADIOLOGY REPORT PROCEDURE: NM JUDY PERF SPECT REST STR COMPARISON: None. INDICATIONS: PRE PROCEDURE CARDIOVASCULAR EXAM, CHEST PAIN TECHNIQUE: Exam Description: Stress/Rest two day protocol gated SPECT Rest Imagin.0 mCi Tc-99m Cardiolite IV on 07/28/2025 Stress Imaging 26.0 mCi Tc-99m Cardiolite IV on 07/29/2025 Exercise Protocol: 0.4 mg Lexiscan given IV Heart Rate (bpm): Rest: 67 Max: 90 PMHR: 57 Blood Pressure: Rest: 141/77 Max: 147/88 Symptoms: None Rest and peak stress ECG findings were pending and the exercise portion of the study was pending per attending physician [facility] . For more details please see separate cardiac stress test report. FINDINGS: Normal Study QUALITY OF STUDY: Good PERFUSION DEFECT: None LOCATION: SIZE: SEVERITY: TYPE: WALL MOTION: Normal LV SIZE: 94 mL. TID / TCD: 1.1 LVEF: Calculated EF 56%. SUMMARY: Myocardial perfusion imaging study CONCLUSION: -No Ischemia on perfusion stress test. -Normal myocardial global systolic function. -Normal Transient ischemic dilatation score (1.1) Dictated by: Rigoberto Lowe MD on 07/29/2025 at 10:04 Approved by: Rigoberto Lowe MD on 07/29/2025 at 10:08
== END 2025-07-28 07:50 | disposition home or self-care (01) ==
LOC: NM 07:49
PROVIDERS: PCP Family Medicine; Visit Provider Family Medicine
DX: R07.9 Chest pain, unspecified (principal)
CPT/HCPCS: 78452; A9500

== ENCOUNTER 2025-07-29 07:56 | Outpatient (OUT) | payer OTHER, SELFPAY ==
--- OUTSIDE RECORDS SUMMARY | 2021-01-13 07:00 | XMS_ITS | Continuity of Care Document ---
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 [address] [place], [place], [id number], [place]. tel:[phone] [facility], [address] [place] [address], [id number], tel:[phone] COVID ECHD No Information Radha Man. [address] [place], [place], [id number], [place]. tel:[phone] Family History Family Member Type Diagnosis Age At Onset No Information Immunizations Vaccine Date Status Comments Pfizer COVID administered Source: New Imm unization Record Pfizer COVID administered Source: New Imm unization Record Payers Payer name Insurance type Covered alliance party ID Authoriza tion(s) Aetna CI [id number] Aetna CI [id number] Aetna CI [id number] Social History Type Description Quantity Date Captured [...]
--- OUTSIDE RECORDS SUMMARY | 2025-07-15 20:39 | XMS_ITS | Continuity of Care Document ---
Author Organization [facility] Address [address] [place] [address] Phone Care Team Providers Care Environmental Permitting Specialist Name Role Phone Jason Cervantes MD Primary Care Provider [phone] Justen Cuellar PA-C Attending Provider Care Teams Visit Care Team Team Status: Inactive Member Role Status Dates Jason Cervantes MD Primary Care Provider Active Start: July 14, 2025 End: July 14, 2025 Justen Cuellar PA-C Attending Provider Active Start: July 14, 2025 End: July 14, 2025 Patient Care Team Team Status: Inactive Member Role Status Dates Justen Cuellar PA-C Attending Provider Active Start: July 15, 2025 End: July 15, 2025 Chief Complaint and Reason for Visit Chief Complaint Admit Date M17.12 z01.818 July 14, 2025 9:39am Unknown July 15, 2025 1:50pm Allergies, Adverse Reactions, Alerts Allergen Type Severity Reaction Last Updated Verified Status amoxicillin Allergy Unknown Hives September 26, 2020 9:40am Ye s Active Social History Smoking Status Status Start Date End Date Date of Observa tion Never smoked tobacco (finding) September 28, 2020 11:49am Observation Status Observation Response Date of Response Legal Sex Male (finding) Sex Assigned At Male July Family History Relationship Condition Age at Onset Recorded Date/T tereza father Diabetes mellitus Unknown Malignant neoplasm of urinary bladder Unk nown Myocardial infarction Unknown Cerebrovascular accident (CVA) Unknown Abdominal aortic aneurysm (AAA) Unknown mother Cerebral aneurysm Unknown History of thyroidectomy Unknown sister Diabetes mellitus Unknown Medications Medication Status Dose Units Route Directions Qty Days St art Date Stop Date End Date Instructions Adherence Atorvastati n 40 mg Tablet Active 40 MG PO Daily [facility] 2019 1:00am Unknown Carvedilol 6.25 mg Tablet Active 6.25 MG PO Twice daily [facility] er 2019 1:00am Unknown Hydrocodone -Acetaminop hen 5-325 mg Tablet Active 1 TAB PO Q6H as needed for Headache [facility] er 2019 1:00am Unknown Chlorthalid one 25 mg Tablet Active 25 MG PO Daily [facility] er 2019 1:00am Unknown Fexofenadin e 180 mg Tablet Active 180 MG PO Daily as needed for Itching [facility] 2019 1:00am Unknown Omeprazole 40 mg Capsule,Del ayed Release(Dr/ Ec) Active 40 MG PO Daily [facility] er 2019 1:00am Unknown Aspirin 81 mg Tablet,Nikki yed Release (Dr/Ec) Active 81 MG PO Daily [facility] er 2019 1:00am Unknown Fluocinonid e 0.05 % Cream Active 1 APPLIC TOPICA L Daily [facility] er 2019 1:00am Unknown Multivitami n Tablet Active 1 TAB PO Every morning [facility] er 2019 1:00am Unknown Ascorbic Acid (Vitamin C) (Vitamin C) 1,000 mg Tablet Active 1 GM PO Daily [facility] 2019 1:00am Unknown Procedures Procedure Date Performed Status XR femur BI July 14, 2025 9:46am comp leted XR tibia/fibula BI July 14, 2025 9:47am c ompleted Urine Culture July 15, 2025 active Relevant Diagnostic Tests and/or Laboratory Data Diagnostic Imaging Reports Author Tom Huerta [facility] Authored July 14, 2025 4:08pm Report Dictated Date/Time Dictated By Status Radiology Report July 14, 2025 4:08pm DO lyly Beauchamp [facility] [place] [address] [place] [address] XRay Report Signed Patient: Harrison Nichols MR#: [id number] : 1960 Acct:[id number] Age/Sex: 64 / M ADM Date: 09/18/2 5 [facility]: Type[facility] Attending Dr: Justen Cuellar PA-C Copies to: Justen Cuellar PA-C~ Ordering Provider: Justen Cuellar PA-C Date of Service: 07/14/25 XR/XR femur BI: PRE OP ([id number]) XR/XR tibia/fibula BI: PRE OP History: Preop assessment for left total knee arthroplasty. Plain film imaging of the femurs. Adequate alignment. No acute displaced fracture. The right greater trochanter out of the field of view. No significant hip degeneration. Extensive left knee medial jqch-ex-aijm contact degeneration. Unremarkable right knee. Plain film imaging of the tibia and fibula bilaterally. No acute displaced fracture. Adequate ankle joints. XR/XR tibia/fibula BI IMPRESSION: Extensive left and medial jymx-ln-phon contact the degeneration. Unremarkable hips. Unremarkable ankles. Impression dictated by: Tom Huerta M.D. 07/14/2025 4:10 PM Dictation Location: [facility]16 Transcribed By: [facility] 07/14/25 1610 Dictated By: Tom Huerta DO 07/14/25 1608 Signed By: <Electronically signed by Tom Huerta DO in OV> 07/14/25 1610 Advance Directives Advance Directive Response Recorded Date/ Time Advance Directives No August 12:49pm Insurance Providers Guarantor Harrison Nichols Address [address] [place] [address] Contact Info. Home Phone: Payer Policy Id Subscriber's Name Subscriber Id Effectiv e Date Expiration Date [employer] [id number] Stella Nichols [id number] [facility] [id number] Stella Nichols [id number] Encounters Encounter Location(s) Arrival/Admit Date Discharge/Depart Date Provider(s) Departed Clinical -X-Ray [facility] July 14, 2025 9:39am July 14, 2025 9:40am Justen Cuellar PA-C Departed Referred -LAB Path Spec [facility] July 15, 2025 1:50pm July 15, 2025 1:51pm Justen Cuellar PA-C Plan of Treatment Future Tests Future scheduled test information is unavailable Pending Tests Test Name Ordered Date Scheduled Date Urine Culture July 15, 2025 1:50pm Future Visits Future appointment information is unavailable Referrals to Other Providers Referral information is unavailable Future Procedures Procedure Name Ordered Date Scheduled Date Urine Culture July 15, 2025 8:32pm Sept ember 2024 1:50pm Future Medications Future medication information is unavailable Patient Instructions Patient instructions are unavailable
--- OUTSIDE RECORDS SUMMARY | 2025-07-19 06:30 | XMS_ITS ---
Author Organization [facility] [place] Address [address] [place] [address] Care Team Providers Care Surveyor Oil Well Directional Name Role Phone Del Cervantes Primary Care Provider [phone] Allergies Allergen (clinical drug ingredient) Drug/Non Drug Allergy documented on EMR Reaction Allergy Type Onset Date Status amoxicillin Amoxicillin hives Drug Allergy Act kriss REASON FOR VISIT surgery clearance labs on 07/14 - having Left Total Knee on 08/11- Dr [facility] Medications Medication SIG (Take, Route, Frequency, Duration) Notes Start Date End Date Status HYDROcodone-Acetaminop hen 5-325 MG 1 tablet as needed - max sdose 2/day Orally every 6 hrs PRN 02/17/2025 Active Gabapentin 300 MG TAKE 2 CAPSULES EVERY MORNING, 1 CAPSULE AT MIDDAY, AND 2 CAPSULES AT BEDTIME; Duration: 90 Active Urea 40 % 1 application as needed to bottom of feet Externally Once a day; Duration: 30 days Dispense large trade size bottle/tube 10/07/2024 Active Eliquis 5 MG TAKE 1 TABLET BY MOUTH TWICE A DAY; Duration: 90 Active Chlorthalidone 25 MG TAKE 1 TABLET BY MOUTH EVERY MORNING WITH FOOD FOR 90 DAYS; Duration: 90 Active Aspirin Adult Low Dose 81 MG 1 tablet Orally Once a day Active Rosuvastatin Calcium 20 MG 1 tablet Orally Once a day; Duration: 7 days Active Triamcinolone Acetonide 0.1 % 1 application Externally bid 12/07/2024 Active Terbinafine HCl 1 % 1 application Externally bid; Duration: 21 days 10/12/2024 Active Protonix 40 MG 1 tablet Orally Once a day; Duration: 90 days 09/10/2024 Active Metoprolol Tartrate 25 MG TAKE 1 TABLET 2 TIMES DAILYWITH FOOD; Duration: 90 Active HYDROcodone-Acetaminop hen 5-325 MG 1 tablet as needed Orally every 6 hrs; Duration: 14 days 07/19/2025 Active Luzu 1 % 1 application to bottom and sides of both feet Externally Once a day; Duration: 14 days Patient failed OTC lotrimin and Rx lotrisone in past 10/07/2024 Active Klor-Con M20 20 MEQ TAKE 1 TABLET 2 TIMES DAILYWITH FOOD; Duration: 90 Active Social History Tobacco Use: Social History Observation Description Date Details (start date - stop date) Never Smoker NA - NA Tobacco Use/Smoking Question Answer Notes Patient is a nonsmoker Vital Signs Weight 278.4 lbs 07/19/2025 Height 70 in 07/19/2025 Blood pressure systolic 138 mm Hg 07/19/20 25 Blood pressure diastolic 82 mm Hg 025 BMI 39.94 kg/m2 07/19/2025 Procedures Procedure Date Ordered Date Performed Result Body Sit e *CARDIO Stress Test - Lexiscan Nuclear 07/19/2025 N/A Encounters Encounter Location Date Provider Diagnosis [address] [address] 07/19/2025 Del Hosvetlana Atrial fibrillation I48.91 ; Chest pain R07.9 and Knee osteoarthritis M17.9 Assessments Encounter Date Diagnosis (ICD Code) Assessment Notes Treatment Notes Treatment Clinical Notes Section Notes 07/19/2025 Atrial fibrillation (ICD-10 - I48.91) 07/19/2025 Chest pain (ICD-10 - R07.9) INtermittant chest pain 07/19/2025 Knee osteoarthritis (ICD-10 - M17.9) Cleared for OR if passes stress test 07/19/2025 Other Discussed increasing physical exercise and continuing/imple menting a healthier diet. Plan Of Treatment Medication Medication Name Sig Start Date Stop Date Notes HYDROcodone-Acetaminophen 5- 325 MG 1 tablet as needed Orally every 6 hrs; Duration: 14 days 07/19/2025 Treatment Notes Assessment Notes Chest pain INtermittant chest p ain Knee osteoarthritis Cleared for OR if pa sses stress test Other Discussed increasing physical exercise and continuing/implementing a healthier diet. Pending Test Test Name Order Date *CARDIO Stress Test - Lexiscan Nuclear 0 07/19/2025 Progress Notes * Harrison NICHOLS JDOB:1959 (64 yo M)Acc No.[id number]:07/19/2025 Progress Note Patient: Harrison ROLAND Provider: Tamara Cervantes ([facility])MD :1960 A ge:64 Y S ex:Male Date:07/19/2025 Address:[address] [place], [place] [id number] Check In:10:17 AM ESTCheck O ut:11:26 AM EST Subjective: * Chief Complaints: * s urgery clearance labs on 07/14 - having Left Total Knee on 08/11- [facility] * HPI: G eneral: Lef knee replacemetn in <30 days no current issues - ewxcepe c hest pain -reflux - No hs CAD, + Hx A-fib - failed stress test. C hest Pain: The patient complains of c hest pain. The symptoms have been present for 1 -2 days . The symptoms are m ild. Symptomatic treatment has included n one. Associated symptoms include f atigue, chest tightness. * ROS: G eneral/Constitutional: Lightheadedness d enies. C hange in appetite d enies. W eight Change d enies. C ardiovascular: Irregular heartbeat d enies. S welling in hands/feet?denies. R espiratory: Shortness of breath d enies. S hortness of breath at rest d enies. W heezing d enies. N eurologic: Dizziness d enies. F ainting d enies. H eadache?denies. * Active Problem List K21.9 Gastro-esophageal re flux disease without esophagitis Modified On:11/13/2023U Status:confirmed Z90.49 History of cholecyst ectomy Modified On:03/21/2023U Status:confirmed G43.909 Migraine Modified On:03/21/2023U Status:confirmed I10 Benign essential hyp ertension Modified On:11/13/2023U Status:confirmed J01.90 Acute sinusitis Modified On:03/21/2023 Status:confirmed [...] of gastric polyp and colonoscopy to cecum 08/25/2024L4-5, L5-S1 Medial Branch Block- Dr Rao 07/04/25 * Hospitalization/Major Diagno stic Procedure: s ee [...] Use/Smoking P atient is a n onsmoker * Medications: T akingAspirin Adult Low Dose(Aspirin) 81 MG Tablet Delayed Release 1 tablet Orally Once a day Chlorthalidone 25 MG Tablet TAKE 1 TABLET BY MOUTH EVERY MORNING WITH FOOD FOR 90 DAYS Eliquis(Apixaban) 5 MG Tablet TAKE 1 TABLET BY MOUTH TWICE A DAY Gabapentin 300 MG Capsule TAKE 2 CAPSULES EVERY MORNING, 1 CAPSULE AT MIDDAY, AND 2 CAPSULES AT BEDTIME HYDROcodone-Acetaminophen 5-325 MG Tablet 1 tablet as needed - max sdose 2/day Orally every 6 hrs , Notes to Pharmacist: PRNHYDROcodone-Acetaminophen 5-325 MG Tablet 1 tablet as needed Orally every 6 hrs Klor-Con M20(Potassium Chloride Olga Lidia ER) 20 MEQ Tablet Extended Release TAKE 1 TABLET 2 TIMES DAILYWITH FOOD Luzu(Luliconazole) 1 % Cream 1 application to bottom and sides of both feet Externally Once a day , Notes to Pharmacist: Patient failed OTC lotrimin and Rx lotrisone in pastMetoprolol Tartrate 25 MG Tablet TAKE 1 TABLET 2 TIMES DAILYWITH FOOD Protonix(Pantoprazole Sodium) 40 MG Tablet Delayed Release [...] 90 DAYS Taking Eliquis(Apixaban) 5 MG Tablet TAKE 1 TABLET BY MOUTH TWICE A DAY Taking Gabapentin 300 MG Capsule TAKE 2 CAPSULES EVERY MORNING, 1 CAPSULE AT MIDDAY, AND 2 CAPSULES AT BEDTIME Taking HYDROcodone-Acetaminophen 5-325 MG Tablet 1 tablet as needed - max sdose 2/day Orally every 6 hrs , Notes to Pharmacist: PRNTaking HYDROcodone-Acetaminophen 5-325 MG Tablet 1 tablet as needed Orally every 6 hrs Taking Klor-Con M20(Potassium Chloride Olga Lidia ER) 20 MEQ Tablet Extended Release TAKE 1 TABLET 2 TIMES DAILYWITH FOOD Taking Luzu(Luliconazole) 1 % Cream 1 application to bottom and sides of both feet Externally Once a day , Notes to Pharmacist: Patient failed OTC lotrimin and Rx lotrisone in pastTaking Metoprolol Tartrate 25 MG Tablet TAKE 1 TABLET 2 TIMES DAILYWITH FOOD Taking Protonix(Pantoprazole Sodium) 40 MG Tablet Delayed [...] Once a day Dispense large trade size bottle/tubeDiscontinuedAzithromycin 250 MG Tablet 2 tabs today then 1 tab Orally daily Medication List reviewed and reconciled with the patientDiscontinued Azithromycin 250 MG Tablet 2 tabs today then 1 tab Orally daily Medication List reviewed and reconciled with the patient * Allergies: A moxicillin: hives - Allergyno[Allergies Verified] Objective: * Vitals: W t:278.4lbs, Ht: 70 in, BP:138/82mm Hg, BMI:39.94Index. * Examination: G eneral Examination: GENERAL APPEARANCE: in no acute distress, well developed, well nourished. LUNGS: clear to auscultation bilaterally. CARDIO: S1, S2 normal, no murmurs, rubs, gallops. EXTREMITIES: no clubbing, cyanosis, or edema. NEUROLOGIC: alert, oriented to time, place, & person.? Assessment: * Assessment: 1. A trial fibrillation - I48.91 (Primary) 2 . C hest pain - R07.9 ? 3 . K nee osteoarthritis - M17.9 Plan: * Treatment: 2. C hest pain P rocedure: *CARDIO Stress Test - Lexiscan Nuclear Notes: INtermittant chest pain 3. K nee osteoarthritis Notes: Cleared for OR if passes stress test 4. O thers Notes:Discussed increasing physical exercise and continuing/implementing a healthier diet. * Procedure Codes: * Preventive Medicine: Screenings/Counseling: B NC ACTION PLAN Above Normal BMI Follow-up D ietary management education, guidance, and counseling * * Sign off status: Completed Visit Status: C HK (Check Out) true * Provider: Tamara Cervantes ([facility])MD Date: 0 07/19/2025 Generated for Printi ng/Fayeniferg/eTransmitting on: 1 07:58 AM EDT History and Physical Notes * HPI (History of Present Illness) Category Sub-Category Detail Notes Category Not es Chest Pain The patient complains of chest pain The symptoms have been present for 1-2 d ays The symptoms are mild Symptomatic treatment has included none Associated symptoms include fatigue, nena st tightness General Lef knee replacemetn in <30 days no current issues - ewxcepe c hest pain -reflux - No hs CAD, + Hx A-fib - failed stress test Examination Category Sub-Category Detail Notes Category Not es General Examination GENERAL APPEARANCE: in no ac audra distress, well developed, well nourished CARDIO: S1, S2 normal, no mu rmurs, rubs, gallops LUNGS: clear to auscultatio n bilaterally NEUROLOGIC: alert, oriented to t tereza, place, & person EXTREMITIES: no clubbing, cyanosi s, or edema
--- OUTSIDE RECORDS SUMMARY | 2025-07-29 07:58 | XMS_ITS | Encounter Summary ---
Author Organization [facility] Address [address] [place] [address] Care Team Providers Care Vest Tailor Name Role Phone Jason Cervantes MD Primary Care Provider [phone] Encounter Details Date Type Department Care Team (Late st Contact Info) Description 07/14/2025 External Result Encounter [facility] External Department Unsolicited Justen Cuellar, PA [address] [place] [address] Social History Tobacco Use Types [...] Therapy [address] [place] [address] Tigist Mukherjee, PT 08/25/2025 1:30 PM EDT Office Visit [facility] [address] [place] [address] Corona Peng, REINSTATEMENT CLERK [address] [place] [address] documented as of this encounter Procedures Procedure Name Priority Date/Time Associated Diagnosis Comments XR FEMUR 2 VW BILATERAL 07/14/2025 4:08 PM EDT documented in this encounter Results * XR femur bilateral 2 views (07/14/2025 4:08 PM EDT) Anatomical Region Laterality Modality Lower Extremities, Femur Bilateral Radiogr aphic Imaging 07/14/2025 4:08 PM EDT Impressions 07/14/2025 4:12 PM EDT Extensive left and medial nbdq-uc-judy contact the degeneration. Unremarkable hips. Unremarkable ankles. Impression dictated by: Tom Huerta M.D. 07/14/2025 4:10 PM Dictation Location: RADIO-PC-16 Transcribed By: [facility] 07/14/25 1610 Dictated By: Tom Huerta DO 07/14/25 1608 Signed By: <Electronically signed by Tom Huerta DO in OV> 07/14/25 1610 Narrative 07/14/2025 4:12 PM EDT [facility] Main [place] [address] [place] [address] XRay Report Signed Patient: Harrison Nichols MR#: [id number] : 1960 Acct:[id number] Age/Sex: 64 / M ADM Date: 07/14/25 [facility] Type[facility] Attending Dr: Justen Cuellar PA-C Copies to: Justen Cuellar PA-C Ordering Provider: Justen Cuellar PA-C Date of Service: 07/14/25 XR/XR femur BI: PRE OP ([id number]) XR/XR tibia/fibula BI: PRE OP History: Preop assessment for left total knee arthroplasty. Plain film imaging of the femurs. Adequate alignment. No acute displaced fracture. The right greater trochanter out of the field of view. No significant hip degeneration. Extensive left knee medial wrpw-rv-fdou contact degeneration. Unremarkable right knee. Plain film imaging of the tibia and fibula bilaterally. No acute displaced fracture. Adequate ankle joints. XR/XR tibia/fibula BI Procedure Note Radiology, Radiologist, MD - 07/14/2025 [facility] Main [place] [address] [place] [address] XRay Report Signed Patient: Harrison Nichols JMR#: [id number] : 1960cct:[id number] Age/Sex: 64 / MADM Date: 07/14/25 Loc: [facility] Room:Type: [facility] Attending Dr: Justen Ceullar PA-C Copies to: Justen Cuellar PA-C Ordering Provider: Justen Cuellar PA-C Date of Service: 07/14/25 XR/XR femur BI: PRE OP ([id number]) XR/XR tibia/fibula BI: PRE OP History: Preop assessment for left total knee arthroplasty. Plain film imaging of the femurs. Adequate alignment. No acute displacedfracture. The right greater trochanter out of the field of view. No significant hipdegeneration. Extensive left knee medial mfww-qr-jzbt contact degeneration. Unremarkable right knee. Plain film imaging of the tibia and fibula bilaterally. No acutedisplaced fracture. Adequate ankle joints. XR/XR tibia/fibula BI IMPRESSION: Extensive left and medial kogv-kk-fafc contact the degeneration.Unremarkable hips. Unremarkable ankles. Impression dictated by: Tom Huerta M.D. 07/14/2025 4:10 PM Dictation Location: [place] [address] Transcribed By: [facility] 07/14/25 1610 Dictated By: Tom Huerta DO 07/14/25 1608 Signed By: <Electronically signed by Tom Huerta DO in OV> 07/14/25 1610 us Justen GONZALEZ XR PROCEDURES Final Resul t documented in this encounter Visit Diagnoses Not on filedocumented in this encounter Care Teams Vest Tailor Relationship Specialty Start Date End Date Jason Cervantes MD [address] [place] [address] PCP - General Family Medicine 06/17/25 documented as of this encounter
--- OUTSIDE RECORDS SUMMARY | 2025-07-29 07:58 | XMS_ITS | Clinical Summary ---
Author Organization [facility] Address [address] [place] [address] Care Team Providers Care Credit Control Clerk Name Role Phone Avi Cervantes MD Primary Care Provider [phone] Allergies Active Allergy Reactions Criticality Noted Date [...] crush, chew, or split. Active HYDROcodone-sunshine taminophen (Merrifield) 5-325 MG tablet Active Iron Polysacch Zsbmj-K82-XZ (Poly-Iron 150 Forte) 150-0.025-1 MG capsuleIndicati ons:Pre-op [...] Department Care Team Description 07/18/2025 Results Follow-Up [facility] [address] [place] [address] Justen Cuellar PA ECG 12-LEAD 07/15/2025 External Result Encounter [facility]S External Department Unsolicited Justen Cuellar PA 07/15/2025 Clinisync Result Encounter NOMS External Department Unsolicited Justen Cuellar PA 07/15/2025 Results Follow-Up [facility] [address] [place] [phone] Justen Cuellar PA [facility] CMP (CMP) (FOR REMOTE [facility] USE), ALL CBC WITH AUTO DIFF, SRMCOH PROTHROMBIN TIME INR W/O COUM, Additional followed-up results: 2 07/15/2025 Clinisync Result Encounter [facility]OMS External Department Unsolicited Justen Cuellar PA 07/14/2025 9:00 AM EDT Office Visit [facility] [address] [place] [address] Justen Cuellar PA Pre-op examination (Primary Dx); Arthritis of left knee 07/14/2025 Results Follow-Up [facility] [address] [place] [address] Justen Cuellar PA XR femur bilateral 2 views 07/14/2025 External Result Encounter [facility]S External Department Unsolicited Justen Cuellar PA 07/14/2025 [facility] [address] [place] [address] Anastasiya Kimbrough MA Arthritis of left knee (Primary Dx); Preop examination 07/14/2025 Bamboo flowsheet [facility] [address] [place] [address] Justen Cuellar PA 07/14/2025 Travel 07/11/2025 Travel 06/17/2025 Bamboo flowsheet [facility] [address] [place] [address] Justen Cuellar PA 06/17/2025 Travel [...] Physical Therapy [address] [place] [address] Tigist Mukherjee, EFRA 08/25/2025 1:30 PM EDT Office Visit [facility] [address] [place] [address] Corona Peng, ALARM MECHANISM ADJUSTER [address] [place] [address] Health Maintenance Due Date Last Done Comments CT Colonography 1960 FIT-DNA 1960 FIT 1960 FOBT 1960 Sigmoidoscopy 1960 Influenza Vaccine (#1) 2025 , 09/12/2023, 10/03/2022, Additional history exists Colonoscopy 08/25/2034 08/25/2024, 07/29, 07/02/2019, Additional history exists Colorectal Cancer Screening 08/25/2034 Procedures Procedure Name Priority Date/Time Associated Diagnosis Comments [place] [facility] [place] Routine 07/15/2025 1:50 PM EDT [facility] UA (CLEAN/CATCH) MICROSCOPIC IF INDICATE Routine 07/15/2025 1:50 PM EDT CULTURE, URINE, ROUTINE Routine 07/15/2025 1:50 PM EDT [facility] APTT Routine 07/15/2025 11:11 AM EDT SRMCOH PROTHROMBIN TIME INR W/O COUM Routine 07/15/2025 11:11 AM EDT ALL CBC WITH AUTO DIFF Routine 07/15/2025 11:11 AM EDT [facility] CMP (CMP) (FOR REMOTE [facility] USE) Routine 07/15/2025 11:11 AM EDT ECG 12-LEAD 07/15/2025 10:57 AM EDT XR FEMUR 2 VW BILATERAL 07/14/2025 4:08 PM EDT COLONOSCOPY Routine 07/02/2019 12:00 PM EDT from Last 3 Months or Most Recently Relevant to Health Maintenance Results * [place] [facility] [place] (07/15/2025 1:50 PM EDT) [place]URE [place] [facility] [place] Urine Culture - [facility] [place] No Growth 2 Days [facility] URINE CULTURE - [facility] URINE CULTURE - [facility] [place] Testing performed at [facility] URINE CULTURE - [facility] [place] [address] [place] [address] [facility] 07/15/2025 1:50 PM EDT 07/15/2025 1:58 PM EDT Narrative CLINISYNC - 07/18/2025 10:46 AM EDT us Justen LUCIANO LAB BLOOD ORDERABLES Final Re sult CLINISYNC TB * TB UA (CLEAN/CATCH) MICROSCOPIC IF INDICATE (07/15/2025 1:50 PM EDT) Pathologist [facility] COLOR URINE YELLOW YELLOW TB[facility] CLARITY URINE [...] Urine culture (07/15/2025 1:50 PM EDT) Pathologist [facility] NOTE No Growth 2 Days 07/17/2025 10:17 AM EDT [facility] Urine Urine specimen obtained by clean catch procedure / Unknown 07/15/2025 1:50 PM EDT 07/15/2025 8:32 PM EDT Justen LUCIANO LAB MICROBIOLOGY - GENERAL OR DERABLES Final Result Performing Organization Address City/[facility] Co de Phone Number FORMERLY [facility], [facility] [address] [place] [address], [facility] [address] [place] [address] * SRMCOH PROTHROMBIN TIME INR W/O COUM [...] LUCIANO CLINISYNC Final Result Performing Organization Address City/[facility] Co de Phone Number CLINISYNC TB * (ABNORMAL) [facility] CMP (CMP) (FOR REMOTE [facility] USE) (07/15/2025 11:11 AM EDT) SODIUM [...] 0.70 - 1.30 mg/dL TBH TBH EGFR-AF GABONESE >60 >=60 mL/min/1. 73m 2 TBH TBH EGFR-NON AF GABONESE >60 >=60 mL/min/1. 73m 2 TBH BUN [...] AM EDT Justen LUCIANO [facility] * [facility] APTT (07/15/2025 11:11 AM EDT) PARTIAL THROMBOPLASTIN TIME 31.5 22.3 - 36.2 sec TB 07/15/2025 11:1 1 AM EDT 07/15/2025 11:12 AM EDT Narrative [facility]IN[facility]NC - 07/15/2025 11:55 AM EDT Justen LUCIANO [facility] Final Result [facility] * (ABNORMAL) ALL CBC WITH AUTO [...] us Justen LUCIANO CLINISYNC Final Result [facility] * ECG 12-LEAD (07/15/2025 10:57 AM EDT) Anatomical Region Laterality Modality Other 07/15/2025 10:5 7 AM EDT Narrative 07/15/2025 8:02 PM EDT The [address] [address] Electrocardiograph Report Signed Patient: KIM NICHOLS MR#: [id number] : 1960 Acct:[id number] Age/Sex: 64 / M ADM Date: 07/15/25 Loc: LAB Attending Dr: Justen LUCIANO Ordering Physician: Justen Cuellar Date of Service: 07/15/25 Procedure(s): ECG 12 lead Accession Number(s): [id number] cc: [facility] Test Date: 2025-07-15 Pat Name: KIM NICHOLS Department: Room: - Gender: Male Insurance Attorney: : 1960 Requested By: AVI CERVANTES Order Number: [id number] Reading MD: ELIAS ANN M.D. Measurements Intervals [place] Rate: 71 P: 18 SC: 165 QRS: -12 QRSD: 87 T: 19 QT: 374 QTc: 407 Interpretive Statements SINUS RHYTHM LOW QRS VOLTAGE IN PRECORDIAL LEADS [QRS DEFLECTION < 1.0 mV IN CHEST LEADS] Abnormal ECG Compared to ECG 05/07/2024 12:44:31 No significant changes Electronically Signed On 07-15-2025 20:02:29 EDT by ELIAS ANN M.D. Dictated By: ELIAS ANN Signed By: 07/15/25200107/15/252001 DD/ 56 TD/TT: Electric Refrigerator Preparer: Procedure Note Radiology, Radiologist, MD - 07/15/2025 [place] [address] Electrocardiograph Report Signed Patient: KIM NICHOLS R#: [id number] : 1960cct:[id number] Age/Sex: 64 / MADM Date: 07/15/25 Loc: LAB Attending Dr: Justen LUCIANO Ordering Physician: Justen Cuellar Date of Service: 07/15/25 Procedure(s): ECG 12 lead Accession Number(s): [id number] cc: [facility] Test Date: 2025-07-15 Pat Name: KIM NICHOLS Department: Room: - Gender: Male Insurance Attorney: : 1960 Requested By: AVI CERVANTES Order Number: [id number] Reading MD: ELIAS ANN M.D. Measurements Intervals [place] Rate: 71 P: 18 SC: 165 QRS: -12 QRSD: 87 T: 19 QT: 374 QTc: 407 Interpretive Statements SINUS RHYTHM LOW QRS VOLTAGE IN PRECORDIAL LEADS [QRS DEFLECTION < 1.0 mV IN CHESTLEADS] Abnormal ECG Compared to ECG 05/07/2024 12:44:31 No significant changes Electronically Signed On 07-15-2025 20:02:29 EDT by ELIAS ANN M.D. Dictated By: ELIAS ANN Signed By:07/15/25200107/15/252001 DD/ 105 TD/TT: Electric Refrigerator Preparer: us Justen LUCIANO CLINISYNC IMAGING Final Resul t * XR femur bilateral 2 views (07/14/2025 4:08 PM EDT) Anatomical Region Laterality Modality Lower Extremities, Femur Bilateral Radiogr aphic Imaging 07/14/2025 4:08 PM EDT Impressions 07/14/2025 4:12 PM EDT Extensive left and medial jkbb-tj-qrzn contact the degeneration. Unremarkable hips. Unremarkable ankles. Impression dictated by: Tom Huerta M.D. 07/14/2025 4:10 PM Dictation Location: [facility]--16 Transcribed By: [facility] 07/14/25 1610 Dictated By: Tom Huerta DO 07/14/25 1608 Signed By: <Electronically signed by Tom Huerta DO in OV> 07/14/25 1610 Narrative 07/14/2025 4:12 PM EDT [facility] [place] [address] XRay Report Signed Patient: Kim Nichols MR#: [id number] : 1960 Acct:[id number] Age/Sex: 64 / M ADM Date: 07/14/25 Loc: [facility] Room: Type: [facility] Attending Dr: Justen Cuellar PA-C Copies to: Justen Cuellar PA-C Ordering Provider: Justen Cuellar PA-C Date of Service: 07/14/25 XR/XR femur BI: PRE OP ([id number]) XR/XR tibia/fibula BI: PRE OP History: Preop assessment for left total knee arthroplasty. Plain film imaging of the femurs. Adequate alignment. No acute displaced fracture. The right greater trochanter out of the field of view. No significant hip degeneration. Extensive left knee medial isti-su-alcq contact degeneration. Unremarkable right knee. Plain film imaging of the tibia and fibula bilaterally. No acute displaced fracture. Adequate ankle joints. XR/XR tibia/fibula BI Procedure Note Radiology, Radiologist, MD - 07/14/2025 [facility] Main [place] [address] [place] [address] XRay Report Signed Patient: Kim Nichols JMR#: [id number] : 1960cct:[id number] Age/Sex: 64 / MADM Date: 07/14/25 Loc: [facility] Room:Type: [facility] Attending Dr: Justen Cuellar PA-C Copies to: Justen Cuellar PA-C Ordering Provider: Justen Cuellar PA-C Date of Service: 07/14/25 XR/XR femur BI: PRE OP ([id number]) XR/XR tibia/fibula BI: PRE OP History: Preop assessment for left total knee arthroplasty. Plain film imaging of the femurs. Adequate alignment. No acute displacedfracture. The right greater trochanter out of the field of view. No significant hipdegeneration. Extensive left knee medial jwkg-za-pnne contact degeneration. Unremarkable right knee. Plain film imaging of the tibia and fibula bilaterally. No acutedisplaced fracture. Adequate ankle joints. XR/XR tibia/fibula BI IMPRESSION: Extensive left and medial pahb-gs-vmst contact the degeneration.Unremarkable hips. Unremarkable ankles. Impression dictated by: Tom Huerta M.D. 07/14/2025 4:10 PM Dictation Location: [place] [address] Transcribed By: [facility] 07/14/25 1610 Dictated By: Tom Huerta DO 07/14/25 1608 Signed By: <Electronically signed by Tom Huerta, DO in OV> 07/14/25 1610 us Justen LUCIANO IMG XR PROCEDURES Final Resul t * Colonoscopy (07/02/2019 12:00 PM EDT) Anatomical Region Laterality Modality Endoscopy 07/02/2019 12:0 0 PM EDT Narrative 07/02/2019 12:00 PM EDT PERFORMED AT [facility] LOCATION:[id number] Procedure Note CONVERSION, GENERIC - 03/12/2023 PERFORMED AT [facility] LOCATION:[id number] us Severiano Allison MD ENDOSCOPY PROCEDURE ORDERABL ES Final Result from Last 3 Months or Most Recently Relevant to Health Maintenance Insurance [employer] Care Teams Credit Control Clerk Relationship Specialty Start Date End Date Avi Cervantes MD [address] [facility] [place] [address] PCP - General Family Medicine 06/17/25
--- OUTSIDE RECORDS SUMMARY | 2025-07-29 07:58 | XMS_ITS | Encounter Summary ---
Author Organization [facility] Address [address] [facility] [address] [place] [address] Care Team Providers Care Health Insurance Adjuster Name Role Phone Jason Cervantes MD Primary Care Provider [phone] Encounter Details Date Type Department Care Team (Late st Contact Info) Description 07/14/2025 Results Follow-Up [facility] [address] [place] [phone] Justen Cuellar, PA [address] [place] [phone] XR femur bilateral 2 views Social History [...] Physical Therapy [address] [place] [address] Tigist Mukherjee, EFRA 08/25/2025 1:30 PM EDT Office [facility] [address] [place] [phone] Corona Peng, INFORMATION SYSTEMS OPERATOR [address] [place] [address] documented as of this encounter Visit Diagnoses Not on filedocumented in this encounter Care Teams Health Insurance Adjuster Relationship Specialty Start Date End Date Jason Cervantes MD [address] [place] [address] PCP - General Family Medicine 06/17/25 documented as of this encounter
--- OUTSIDE RECORDS SUMMARY | 2025-07-29 07:58 | XMS_ITS | Encounter Summary ---
Author Organization [facility] Address [address] [place] [facility] [place] [address] Care Team Providers Care Director Nicu Name Role Phone Jason Cervantes MD Primary Care Provider [phone] Reason for Referral * Consultation (Routine) - Authorized Specialty Diagnoses / Procedures Referred By Contac t Referred To Contact Physical Therapy Diagnoses Arthritis of left knee Preop examination Procedures [place] OFFICE/OUTPATIENT [facility] 60 MINUTES Justen Cuellar PA [address] [place] [address] Phone: tel: fax: Tigist Mukherjee PT Referral ID Status Reason Start Date Expiration Date Visits Requested Visits Authorized [id number] Authorized Consult and Treat 08/05/2025 01/10/2026 60 60 Encounter Details Date Type Department Care Team (Late st Contact Info) Description 07/14/2025 [facility] [address] [facility] [address] [place] [address] Anastasiya Kimbrough MA Arthritis of left knee [...] EDT Evaluation [facility] [address] [facility] [address] [place] [address] Tigist Mukherjee, PT 08/25/2025 1:30 PM EDT Office Visit [facility] [address] [place] [address] Corona Peng, AB[employer]IG[employer]AL [employer]NC[employer] MEMBER [address] [place] [address] Scheduled Referrals Name Type Priority Associated Diagnoses Orde r Schedule Ambulatory referral to Physical Therapy Outpatient Referral Routine Arthritis of left knee Preop examination Expected: 07/14/2025 (Approximate), Expires: 01/11/2026 documented as of this encounter Visit Diagnoses Diagnosis Arthritis of left knee- Primary Preop examination Unspecified pre-operative examination documented in this encounter Care Teams Director Nicu Relationship Specialty Start Date End Date Jason Cervantes MD [address] [place] [facility] [place] [address] PCP - General Family Medicine 06/17/25 documented as of this encounter
--- OUTSIDE RECORDS SUMMARY | 2025-07-29 07:58 | XMS_ITS | Encounter Summary ---
Author Organization [facility] Address [address] [place] [address] Care Team Providers Care Nut Grinder Name Role Phone Jason Cervantes MD Primary Care Provider [phone] Jason Cervantes MD Primary Care Provider [phone] Encounter Details Date Type Department Care Team (Late st Contact Info) Description 05/03/2024 Orders Only [facility] [address] [place] [address] Jason Cervantes MD [address] [facility] [place] [address] Social History Tobacco Use Types Packs/Day Years [...] Physical Therapy [address] [place] [address] Tigist Mukherjee, EFRA 08/25/2025 1:30 PM EDT Office Visit [facility] [place] [address] Corona Peng, CORK INSULATION INSTALLER [address] [place] [address] documented as of this encounter Procedures Procedure [...] on filedocumented in this encounter Care Teams Nut Grinder Relationship Specialty Start Date End Date Jason Cervantes MD PCP - General 05/05/24 06/16/25 Jason Cervantes MD [address] [place] [address] PCP - General Family Medicine 06/17/25 documented as of this encounter
--- OUTSIDE RECORDS SUMMARY | 2025-07-29 07:58 | XMS_ITS | Encounter Summary ---
Author Organization [facility] Address [address] [place] [address] Phone Care Team Providers Care Basket Operator Name Role Phone Jason Cervantes MD Primary Care Provider [phone] Encounter Details Date Type Department Care Team (Late st Contact Info) Description 04/20/2019 Orders Only [facility] [address] [place] [address] Conversion, Onbase Social History Tobacco Use Types [...] on filedocumented in this encounter Care Teams Basket Operator Relationship Specialty Start Date End Date Jason Cervantes MD [address] [place] [address] PCP - General 05/07/22 documented as of this encounter
--- OUTSIDE RECORDS SUMMARY | 2025-07-29 07:59 | XMS_ITS | Encounter Summary ---
Author Organization [facility] Address [address] [facility] [place] [address] Care Team Providers Care Green Chain Worker Name Role Phone Jason Cervantes MD Primary Care Provider [phone] Encounter Details Date Type Department Care Team (Late st Contact Info) Description 07/15/2025 Results Follow-Up [facility] [address] [place] [address] Justen Cuellar, PA [address] [place] [address] [facility] CMP (CMP) (FOR REMOTE [facility] USE), ALL CBC WITH AUTO DIFF, SRMCOH [...] Physical Therapy [address] [place] [address] Tigist Mukherjee, PT 08/25/2025 1:30 PM EDT Office Visit [facility] [address] [place] [address] Corona Peng, TEST DECK SUPERVISOR [address] [place] [address] documented as of this encounter Visit Diagnoses Not on filedocumented in this encounter Care Teams Green Chain Worker Relationship Specialty Start Date End Date Jason Cervantes MD [address] [place] [address] PCP - General Family Medicine 06/17/25 documented as of this encounter
--- OUTSIDE RECORDS SUMMARY | 2025-07-29 07:59 | XMS_ITS | Encounter Summary ---
Author Organization [facility] Address [address] [place] [address] Care Team Providers Care Dental Insurance Biller Name Role Phone Jason Cervantes MD Primary Care Provider [phone] Encounter Details Date Type Department Care Team (Late st Contact Info) Description 07/15/2025 Clinisync Result Encounter [facility] External Department Unsolicited uJsten Cuellar, PA [address] [place] [address] Social History Tobacco Use Types [...] Physical Therapy [address] [place] [address] Tigist Mukherjee, EFRA 08/25/2025 1:30 PM EDT Office Visit [facility] [id number] [place] [address] Corona Peng, ASSOCIATE DIRECTOR REGULATORY AFFAIRS [address] [place] [address] documented as of this encounter Procedures Procedure Name Priority Date/Time Associated Diagnosis Comments [facility]INE CULTURE - [facility] Routine 07/15/2025 1:50 PM EDT [facility] UA (CLEAN/CATCH) MICROSCOPIC IF INDICATE Routine 07/15/2025 1:50 PM EDT [facility] PROTHROMBIN TIME INR W/O COUM Routine 07/15/2025 11:11 AM EDT [facility] CMP (CMP) (FOR REMOTE [facility] USE) Routine 07/15/2025 11:11 AM EDT [facility] APTT Routine 07/15/2025 11:11 AM EDT ALL CBC WITH AUTO DIFF Routine 07/15/2025 11:11 AM EDT documented in this encounter Results * URINE CULTURE - [facility] (07/15/2025 1:50 PM EDT) Pathologist [facility] URINE CULTURE - [facility] Urine Culture - [facility] No Growth 2 Days [facility] URINE CULTURE [facility] URINE CULTURE [facility] Testing performed at [facility] URINE CULTURE - [facility] [address] [place] [address] [facility] 07/15/2025 1:50 PM EDT 07/15/2025 1:58 PM EDT Narrative CLINISYNC - 07/18/2025 10:46 AM EDT us Justen LUCIANO LAB BLOOD ORDERABLES Final Re sult [facility] * [facility] UA (CLEAN/CATCH) MICROSCOPIC IF INDICATE [...] PM EDT Justen LUCIANO CLINISYJUAN Final Result [facility] * [facility] APTT (07/15/2025 11:11 AM EDT) PARTIAL THROMBOPLASTIN TIME 31.5 22.3 - 36.2 sec [facility] 07/15/2025 11:1 1 AM EDT 07/15/2025 11:12 AM EDT Narrative CLINISYNC - 07/15/2025 11:55 AM EDT Justen LUCIANO CLINISYJUAN Final Result Performing Organization Address City/[facility] Co de Phone Number [facility] * [facility] PROTHROMBIN TIME INR W/O COUM (07/15/2025 11:11 AM EDT) PROTHROMBIN TIME 10.9 9.0 - 11.6 sec TB TB INR 1.03 [facility]H Comment: DESIRED INR: 2.0-3.0 CONDITIONS NOT LISTED BELOW 2.5-3.5 FOR PROSTHETIC HEART VALVE REPLACEMENT 2.5-3.5 RECURRENT THROMBOSIS 07/15/2025 11:1 1 AM EDT 07/15/2025 11:12 AM EDT Narrative CLINISYNC - 07/15/2025 11:55 AM EDT Justen LUCIANO CLINISYNC Final Result [facility] * (ABNORMAL) ALL CBC WITH AUTO DIFF (07/15/2025 11:11 AM EDT) [facility] TB WBC 8.4 4.0 - 11.0 10 [...] [facility] CMP (CMP) (FOR REMOTE [facility] USE) (07/15/2025 11:11 AM EDT) SODIUM 140 136 - 145 mmol/L [facility]H POTASSIUM 3.6 3.5 - 5.1 mmol/L [facility] CHLORIDE 103 98 - 107 mmol/L [facility] CARBON DIOXIDE 30.0 21.0 - 32.0 mmol/L [facility] ANION GAP 10.6 [facility] GLUCOSE 116(H) 74 - 106 mg/dL [facility] BLOOD UREA NITROGEN 14.0 7.0 - 18.0 mg/dL [facility] CREATININE 1.16 0.70 - 1.30 mg/dL TBH TBH EGFR-AF BELARUSIAN >60 >=60 mL/min/1. 73m 2 TBH TBH EGFR-NON AF BELARUSIAN >60 >=60 mL/min/1. 73m 2 [facility] BUN [...] on filedocumented in this encounter Care Teams Dental Insurance Biller Relationship Specialty Start Date End Date Jason Cervantes MD [address] [place] [address] PCP - General Family Medicine 06/17/25 documented as of this encounter
--- OUTSIDE RECORDS SUMMARY | 2025-07-29 07:59 | XMS_ITS | Encounter Summary ---
Author Organization [facility] Address [address] [facility] [place] [address] Care Team Providers Care Arson Investigator Name Role Phone Jason Cervantes MD Primary Care Provider [phone] Encounter Details Date Type Department Care Team (Late st Contact Info) Description 07/18/2025 Results Follow-Up [facility] [address] [place] [address] Justen Cuellar PA [address] [place] [address] ECG 12-LEAD Social History Tobacco [...] Physical Therapy [address] [place] [address] Tigist Mukherjee, EFRA 08/25/2025 1:30 PM EDT Office Visit [facility] [address] [place] [address] Corona Peng, IRON AND STEEL WORK SUPERVISOR [address] [place] [address] documented as of this encounter Visit Diagnoses Not on filedocumented in this encounter Care Teams Arson Investigator Relationship Specialty Start Date End Date Jason Cervantes MD [address] [place] [address] PCP - General Family Medicine 06/17/25 documented as of this encounter
--- OUTSIDE RECORDS SUMMARY | 2025-07-29 07:59 | XMS_ITS | Clinical Summary ---
Author Organization [facility] Address [address] [place] [address] Care Team Providers Care Blueprint Duplicator Name Role Phone Jason Cervantes MD Primary Care Provider [phone] Allergies Active Allergy Reactions Criticality Noted Date [...] in the morning. 12/27/2024 Active HYDROcodone-sunshine taminophen ([place]) 5-325 mg tablet Take 1 tablet by [...] complete this topic Insurance [employer] Care Teams Blueprint Duplicator Relationship Specialty Start Date End Date Jason Cervantes MD [address] [facility] [address] PCP - General 09/09/24
--- OUTSIDE RECORDS SUMMARY | 2025-07-29 07:59 | XMS_ITS | Encounter Summary ---
Author Organization [facility] Address [address] [place] [address] Phone Care Team Providers Care Patient Relations Manager Name Role Phone Jason Cervantes MD Primary Care Provider [phone] Encounter Details Date Type Department Care Team (Late st Contact Info) Description 09/26/2020 Orders Only [facility] [address] [place] [place] [address] Conversion, Onbase Social History Tobacco Use Types [...] on filedocumented in this encounter Care Teams Patient Relations Manager Relationship Specialty Start Date End Date Jason Cervantes MD [address] [place], [place] [phone] PCP - General 05/07/22 documented as of this encounter
--- OUTSIDE RECORDS SUMMARY | 2025-07-29 07:59 | XMS_ITS | Encounter Summary ---
Author Organization [facility] Address [address] [place] [address] Phone Care Team Providers Care Electrical Plumbing Supervisor Name Role Phone Jason Cervantes MD Primary Care Provider [phone] Reason for Visit * Reason Comments Med Refill Encounter Details Date Type Department Care Team ([facility] st Contact Info) Description 06/21/2025 Refill [facility] [address] [facility] [address] [place] [address] Carlota Walker MD [address] [facility] [place] [address] Hyperlipidemia, unspecified Social History Tobacco [...] unspecified documented in this encounter Care Teams Electrical Plumbing Supervisor Relationship Specialty Start Date End Date Jason Cervantes MD [address] [facility] [address] [place] [phone] PCP - General 05/07/22 documented as of this encounter
--- OUTSIDE RECORDS SUMMARY | 2025-07-29 07:59 | XMS_ITS | Clinical Summary ---
Author Organization [facility] Address [address] [place] [address] Phone Care Team Providers Care Skull Splitter Name Role Phone Jason Cervantes MD Primary Care Provider [phone] Allergies No known active allergies Medications rosuvastatin (Crestor) 20 mg tabletIndication s:Hyperlipidemia , unspecified TAKE 1 TABLET BY MOUTH EVERYDAY AT BEDTIME 90 tablet 3 5 Active Encounters Date Type Department Care Team Description 06/21/2025 Refill [facility] [address] [address] Carlota Walker MD Hyperlipidemia, unspecified [...] age to complete this topic Care Teams Skull Splitter Relationship Specialty Start Date End Date Jason Cervantes MD [address] [facility] [place] [address] PCP - General 05/07/22
--- OUTSIDE RECORDS SUMMARY | 2025-07-29 07:59 | XMS_ITS | Clinical Summary ---
Author Organization [facility] Address [address] [place] [address] Care Team Providers Care Traditional Maori Health Practitioner Name Role Phone Jason Cervantes MD Unavailable [phone] Jason Cervantes MD Primary Care Provider [phone] Allergies Active Allergy Reactions Criticality Noted Date [...] original vaccine, a ge 12+ yr, monovalent ([employer] - PURPLE TOP) 09/03/2021,02/13/2021,01/13/2021,2020 COVID-19 original vaccine, [...] risk 4 06/02/2023 Data from: https://www.neighborhoodatlas.medicine.[facility] Last address used for calculation [address] 06/02/2023 Sex and Gender Information Value [...] 1-dose 75+ series) 2036 Insurance Care Teams Traditional Maori Health Practitioner Relationship Specialty Start Date End Date Jason Cervantes MD [address] [place] [address] PCP - General Family Medicine 06/25/23 Jsaon Cervantes MD [address] [place] [address] Referring Family Medicine 04/24/23
--- OUTSIDE RECORDS SUMMARY | 2025-07-29 07:59 | XMS_ITS | Patient Health Record ---
Author Organization [facility] [place] [facility] Address [address] [place] [address] Care Team Providers Care Brand Advocate Name Role Phone Del Cervantes Primary Care Provider [phone] Unavailable [phone] Allergies Allergen (clinical drug ingredient) Drug/Non Drug Allergy documented on EMR Reaction Allergy Type Onset Date Status amoxicillin Amoxicillin hives Drug Allergy Act kriss Results Component Value Reference Range Notes CBC AUTO DIFF Reviewed date:04/21/2025 07:35:49 PM Interpretation: Performing Lab: Notes/Report: [facility] , White Blood Count 6.4 4.0-11.0 [...] 3/uL Performing Lab: see note ML - [facility] INSULIN Reviewed date:04/24/2025 03:02:25 PM Interpretation: Performing Lab: Notes/Report: [facility] , Insulin 20.8 2.6-24.9 uIU/mL Performed at: [facility] [address] [id number] Pressure Tester Operator: Adam Byers PhD, Phone: [phone] Performing Lab: see note - [facility] LB Prothrombin Time INR Reviewed date:07/15/2025 05:18:53 PM Interpretation: Performing Lab: Notes/Report: [facility] , Prothrombin Time 10.9 9.0-11.6 sec INR 1.03 DESIRED INR: 2.0-3.0 CONDITIONS NOT LISTED BELOW 2.5-3.5 FOR PROSTHETIC HEART VALVE REPLACEMENT 2.5-3.5 RECURRENT THROMBOSIS Performing Lab: see note ML - [facility] LB PTT Reviewed date:07/15/2025 05:18:53 PM Interpretation: Performing Lab: Notes/Report: [facility] , Partial Thromboplastin Time 31.5 22.3-36.2 sec Performing Lab: see note ML - [facility] LB TSH Reviewed date:04/21/2025 07:35:49 PM Interpretation: Performing Lab: Notes/Report: [facility] , Thyroid Stimulating Hormone 1.589 0.358-3.740 uIU/mL Performing Lab: see note ML - [facility] LB T4 Reviewed date:04/21/2025 07:35:49 PM Interpretation: Performing Lab: Notes/Report: [facility] , T4 Thyroxine 8.50 4.50-12.10 ug/dL Performing Lab: see note ML - [facility] LB PSA SCREENING Reviewed date:04/21/2025 07:35:49 PM Interpretation: Performing Lab: Notes/Report: [facility] , Prostate Specific Antigen Scrn 1.36 <=4.00 ng/mL Performing Lab: see note ML - [facility] LB PROF 14(COMP METB) Reviewed date:04/21/2025 07:35:49 PM Interpretation: Performing Lab: Notes/Report: [facility] , Sodium 138 136-145 mmol/L Potassium [...] 1.0 Performing Lab: see note ML - [facility] LB LIPID PROFILE Reviewed date:04/21/2025 07:35:49 PM Interpretation: Performing Lab: Notes/Report: [facility] , Triglycerides 86 <=150 mg/dL Cholesterol [...] HIGH RISK Performing Lab: see note - [facility] LB GLYCOHEMOGLOBIN A1C Reviewed date:04/21/2025 07:35:49 PM Interpretation: Performing Lab: Notes/Report: [facility] , Glycohemoglobin A1C 5.5 4.5-6.2 % ADA RECOMMENDED LIMIT 4.0 - 6.0 ADA THERAPEUTIC TARGET < 7.0 ACTION SUGGESTED > 7.0 Estimated Average Glucose 111 Performing Lab: see note - [facility] LB FREE T3 Reviewed date:04/21/2025 07:35:49 PM Interpretation: Performing Lab: Notes/Report: [facility] , Free T3 2.64 2.18-3.98 pg/mL Performing Lab: see note - [facility] LB XR thoracic spine 3V Reviewed date:04/21/2025 07:35:49 PM Interpretation: Performing Lab: Notes/Report: Source Facility: [place] [address] XRay Report Signed Patient: KIM NICHOLS MR#: [id number] : 1960 Acct:[id number] Age/Sex: 64 / M ADM Date: 04/21/25 Loc: LAB Attending Dr: Avi Cervantes M.D. Ordering Physician: Avi Cervantes M.D. Date of Service: 04/21/25 Procedure(s): XR thoracic spine 3V Accession Number(s): [id number] cc: Avi Cervantes M.D. [place] [id number] Patient Name: KIM NICHOLS MRN: [id number] date: 1960 Sex: M Assigned Patient Location: LAB Current Patient Location: LAB Accession/Order Number: [id number] Exam Date: 04/21/2025 08:46 Report Date: 04/21/2025 [...] Ellis M.D. 04/21/2025 8:48 AM Dictation Location: [place] [address] Electronically authenticated by: [id number] Y Date: 04/21/2025 08:48 Dictated By: Stacy Ellis M.D. Signed By: 04/21/25 0850 DD/ 0848 TD/TT: Spray Painting Machine Operator: ECG 12 lead Reviewed date:07/16/2025 03:52:01 PM Interpretation: Performing Lab: Notes/Report: Source Facility: [place] [address] Electrocardiograph Report Signed Patient: KIM NICHOLS MR#: [id number] : 1960 Acct:[id number] Age/Sex: 64 / M ADM Date: 07/15/25 Loc: LAB Attending Dr: Justen LUCIANO Ordering Physician: Justen Cuellar Date of Service: 07/15/25 Procedure(s): ECG 12 lead Accession Number(s): [id number] cc: [facility] Test Date: 2025-07-15 Pat Name: KIM NICHOLS Department: Room: - Gender: Male Retail Reset Merchandiser: : 1960 Requested By: AVI CERVANTES Order Number: [id number] Ac MD: ELIAS ANN M.D. Measurements Intervals Pratt Rate: 71 P: 18 OR: 165 QRS: -12 QRSD: 87 T: 19 QT: 374 QTc: 407 Interpretive Statements SINUS RHYTHM LOW QRS VOLTAGE IN PRECORDIAL LEADS [QRS DEFLECTION < 1.0 mV IN CHEST LEADS] Abnormal ECG Compared to ECG 05/07/2024 12:44:31 No significant changes Electronically Signed On 07-15-2025 20:02:29 EDT by ELIAS ANN M.D. Dictated By: ELIAS ANN Signed By: 07/15/25200107/15/252001 DD/ 1057 TD/TT: Spray Painting Machine Operator: Urine Culture - [facility] Reviewed date:07/18/2025 01:15:38 PM Interpretation: Performing Lab: Notes/Report: [facility] , Urine Culture - [facility] See Below For Report Urine Culture - [facility] No Growth 2 Days Urine Culture - [facility] Urine Culture - [facility] No Growth 2 Days Urine Culture - [facility] Testing performed at [facility] Urine Culture [facility] No Growth 2 Days [facility]rine Culture - [facility] [address] [place] [address] Urine Culture - [facility] No Growth 2 Days Performing Lab: see note ML - [facility] LB UA (CLEAN or CATCH) MICROSCO PIC IF INDICATE Reviewed date:07/15/2025 05:18:53 PM Interpretation: Performing Lab: Notes/Report: [facility] , Color Urine YELLOW YELLOW Clarity Urine CLEAR CLEAR Specific Marcella Urine 1.020 1.005-1.025 pH Urine 7.0 5.0-9.0 Protein Urine TRACE NEG/TRACE mg/dL Glucose Urine UA NEGATIVE NEGATIVE mg/dL Bilirubin Urine NEGATIVE NEGATIVE Ketones Urine NEGATIVE NEGATIVE mg/dL Blood Urine NEGATIVE NEGATIVE Nitrite Urine NEGATIVE NEGATIVE Urobilinogen Urine >=8.0 0.2-1.0 EU/dL Leukocyte Esterase Urine NEGATIVE NEGATIVE Urine Microscopic Indicated NO Performing Lab: see note ML - [facility] LB PROF 14(COMP METB) Reviewed date:07/15/2025 05:18:53 PM Interpretation: Performing Lab: Notes/Report: [facility] , Sodium 140 136-145 mmol/L Potassium [...] 1.0 Performing Lab: see note ML - [facility] LB CBC AUTO DIFF Reviewed date:07/15/2025 05:18:53 PM Interpretation: Performing Lab: Notes/Report: [facility] , White Blood Count 8.4 4.0-11.0 10 [...] Performing Lab: see note ML - [facility] Reason For Referral Diagnosis 1 Chronic midline low back pain without sciatica (M54.50) Referral Organization [facility] Referring Provider First Name Del Referring [...] Notes Problem Gastro-esophageal reflux disease without esophagitis (641215154) Gastro-esophageal reflux disease without esophagitis (K21.9) Active confirmed Problem Osteoarthritis of knee (754862360) Unilateral primary osteoarthritis, left knee (M17.12) Active confirmed Problem Displacement of lumbar intervertebral disc without myelopathy (92576585) Other intervertebral disc displacement, lumbosacral region (M51.27) Active confirmed Problem Other specified symptoms and signs involving the circulatory and respiratory systems (R09.89) Active confirmed Problem Chest pain (49976470) Chest pain (R07.9) Active confirmed Problem Atrial fibrillation (90650693) Atrial fibrillation (I48.91) Active confirmed Problem History of cholecystectomy (855294133) History of cholecystectomy (Z90.49) Active confirmed Problem Osteoarthritis of knee (458442488) Knee osteoarthritis (M17.9) Active confirmed Problem Migraine (63342846) Migraine (G43.909) Active confirmed Problem Benign essential hypertension (0765132) Benign essential hypertension (I10) Active confirmed Problem Lumbar radiculopathy (805439790) Lumbar radiculopathy (M54.16) Active confirmed Problem Acute sinusitis (93518023) Acute sinusitis (J01.90) Active confirmed Problem Well adult (773528727) Well adult (Z00.00) Active confirmed Problem Erectile dysfunction (disorder) (505016370) Impotence (N52.9) Active confirmed Problem Willis cyst, 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) Active confirmed Problem Body mass index 40+ - morbidly obese (703139607) BMI 40.0-44.9, adult (Z68.41) Active confirmed Problem Atrial fibrillation (79502655) New onset a-fib (I48.91) Active confirmed Problem Spinal stenosis of lumbar region (37865355) Spinal stenosis, lumbar region without neurogenic claudication (M48.061) Active confirmed Problem Osteoarthritis of knee (958346819) Knee osteoarthritis (M17.10) Active confirmed Problem Dyspnea on exertion (32732147) MILIAN (dyspnea on exertion) (R06.00) Active confirmed Problem Chronic low back pain (finding) (085760277) Chronic midline low back pain without sciatica [...] N/A Encounters Encounter Location Date Provider Diagnosis [facility] [address] [place] [address] 06/20/2025 Del Hoy Knee osteoarthritis M17.10 [facility] [address] [place] [address] 07/13/2025 Del Hoy [facility] [address] [place] [address] 10/04/2024 Del Hoy Benign essential hypertension I10 [facility] [place] [place] [facility] [address] [place] [address] [place] [address] 10/12/2024 Elis Salcedo [facility] [address] [facility] [address] 02/17/2025 Del Hoy Benign essential hypertension I10 [facility] [address] [place] [address] 04/21/2025 Del Hoy Elevated bilirubin R17 [facility] [address] [place] [address] 05/12/2025 Del Hoy Knee osteoarthritis M17.10 [facility] [place] [facility] [address] [place] [address] [place] [address] 10/07/2024 Elis Salcedo Tinea pedis B35.3 [facility] [address] [place] [address] 09/10/2024 Del Hoy Benign essential hypertension I10 ; Well adult Z00.00 and Chest pain R07.9 [facility] [address] [place] [address] 12/07/2024 Del Hoy Benign essential hypertension I10 ; Chronic midline low back pain without sciatica M54.50 and Atrial fibrillation I48.91 [facility] [address] [place] [address] 04/11/2025 Del Hoy Knee osteoarthritis M17.10 ; Thoracic back pain M54.6 and Well adult Z00.00 [facility] [address] [place] [address] 07/19/2025 Del Hoy Atrial fibrillation I48.91 ; [...] symptoms recurred.Prior to that he tried several [id number] remedies which failed to provide relief in [...] Date Coverage End Date [employer] [address] [place] [phone] [id number] Stella Nichols Spouse - patient is the [...]
--- OUTSIDE RECORDS SUMMARY | 2025-07-29 07:59 | XMS_ITS | Encounter Summary ---
Author Organization [facility] Address [address] [place] [address] Care Team Providers Care Social And Political Studies Professor Name Role Phone Jason Cervantes MD Primary Care Provider [phone] Encounter Details Date Type Department Care Team (Late st Contact Info) Description 07/15/2025 External Result Encounter [facility] External Department Unsolicited Justen Cuellar, PA [address] [place] [address] Social History Tobacco Use Types [...] Therapy [address] [place] [address] Tigist Mukherjee, PT 08/25/2025 1:30 PM EDT Office Visit [facility] [address] [place] [address] Corona Peng, DRIVER COURIER [address] [place] [address] documented as of this encounter Procedures Procedure Name Priority Date/Time Associated Diagnosis Comments CULTURE, URINE, ROUTINE Routine 07/15/2025 1:50 PM EDT documented in this encounter Results * Urine culture (07/15/2025 1:50 PM EDT) Pathologist [facility] NOTE No Growth 2 Days 07/17/2025 10:17 AM EDT [facility] Urine Urine specimen obtained by clean catch procedure / Unknown 07/15/2025 1:50 PM EDT 07/15/2025 8:32 PM EDT Justen LUCIANO LAB MICROBIOLOGY - GENERAL OR DERABLES Final Result Performing Organization Address City/State/[facility] de Phone Number [facility] [address] [place] [address], [facility] [address] [place] [address] documented in this encounter Visit Diagnoses Not on filedocumented in this encounter Care Teams Social And Political Studies Professor Relationship Specialty Start Date End Date Jason Cervantes MD [address] [place] [address] PCP - General Family Medicine 06/17/25 documented as of this encounter
--- OUTSIDE RECORDS SUMMARY | 2025-07-29 07:59 | XMS_ITS | Encounter Summary ---
Author Organization [facility] Address [address] [place] [address] Phone Care Team Providers Care Manager Field Service Name Role Phone Jason Cervantes MD Primary Care Provider [phone] Encounter Details Date Type Department Care Team (Late st Contact Info) Description 12/20/[address] [facility] [address] [place] [address] Conversion, Onbase Social History Tobacco Use Types [...] on filedocumented in this encounter Care Teams Manager Field Service Relationship Specialty Start Date End Date Jason Cervantes MD [address] [facility] [place] [address] PCP - General 05/07/22 documented as of this encounter
--- OUTSIDE RECORDS SUMMARY | 2025-07-29 07:59 | XMS_ITS | Encounter Summary ---
Author Organization [facility] Address [address] [place] [place] [address] Care Team Providers Care Signal Tower Director Name Role Phone Avi Yepez MD Primary Care Provider [phone] Encounter Details Date Type Department Care Team (Late st Contact Info) Description 07/15/2025 Clinisync Result Encounter [facility] Unsolicited Justen Cuellar, PA [address] [place] [address] Social History Tobacco Use Types [...] Physical Therapy [address] [place] [address] Tigist Mukherjee, EFRA 08/25/2025 1:30 PM EDT Office Visit [facility] [address] [place] [address] Corona Peng, [employer]GR[employer]HER [address] [place] [address] documented as of this encounter Procedures Procedure Name Priority Date/Time Associated Diagnosis Comments ECG 12-LEAD 07/15/2025 10:57 AM EDT documented in this encounter Results * ECG 12-LEAD (07/15/2025 10:57 AM EDT) Anatomical Region Laterality Modality Other 07/15/2025 10:5 7 AM EDT Narrative 07/15/2025 8:02 [place] [address] Electrocardiograph Report Signed Patient: KIM NICHOLS MR#: [id number] : 1960 Acct:[id number] Age/Sex: 64 / M ADM Date: 07/15/25 Loc: LAB Attending Dr: Justen LUCIANO Ordering Physician: Justen Cuellar Date of Service: 07/15/25 Procedure(s): ECG 12 lead Accession Number(s): [id number] cc: [facility] Test Date: 2025-07-15 Pat Name: KIM NICHOLS Department: Room: - Gender: Male Civil Designer: : 1960 Requested By: AVI YEPEZ Order Number: [id number] Reading MD: ELIAS ANN M.D. Measurements Intervals [place] Rate: 71 P: 18 RI: 165 QRS: -12 QRSD: 87 T: 19 QT: 374 QTc: 407 Interpretive Statements SINUS RHYTHM LOW QRS VOLTAGE IN PRECORDIAL LEADS [QRS DEFLECTION < 1.0 mV IN CHEST LEADS] Abnormal ECG Compared to ECG 05/07/2024 12:44:31 No significant changes Electronically Signed On 07-15-2025 20:02:29 EDT by ELIAS ANN M.D. Dictated By: ELIAS ANN Signed By: 07/15/25200107/15/252001 DD/ 105 TD/TT: [employer]emaker Custom: Procedure Note Radiology, Radiologist, - 07/15/[address] [address] Electrocardiograph Report Signed Patient: KIM NICHOLS JMR#: [id number] : 1960cct:[id number] Age/Sex: 64 / MADM Date: 07/15/25 Loc: LAB Attending Dr: Justen LUCIANO Ordering Physician: Justen Cuellar Date of Service: 07/15/25 Procedure(s): ECG 12 lead Accession Number(s): [id number] cc: [facility] Test Date: 2025-07-15 Pat Name: KIM NICHOLS Department: Room: - Gender: Male Civil Designer: : 1960 Requested By: AVI YEPEZ Order Number: [id number] Reading MD: ELIAS ANN M.D. Measurements Intervals [place] Rate: 71 P: 18 RI: 165 QRS: -12 QRSD: 87 T: 19 QT: 374 QTc: 407 Interpretive Statements SINUS RHYTHM LOW QRS VOLTAGE IN PRECORDIAL LEADS [QRS DEFLECTION < 1.0 mV IN CHESTLEADS] Abnormal ECG Compared to ECG 05/07/2024 12:44:31 No significant changes Electronically Signed On 07-15-2025 20:02:29 EDT by ELIAS ANN M.D. Dictated By: ELIAS ANN Signed By:07/15/25200107/15/252001 DD/ 1057 TD/TT: [employer]emaker Custom: us Justen [facility]CIANO [facility] Final Resul t documented in this encounter Visit Diagnoses Not on filedocumented in this encounter Care Teams Signal Tower Director Relationship Specialty Start Date End Date Avi Yepez MD [address] [place] [address] PCP - General Family Medicine 06/17/25 documented as of this encounter
--- OUTSIDE RECORDS SUMMARY | 2025-07-29 08:00 | XMS_ITS | CCD ---
Author Organization [facility] Care Team Providers Care Teaseler Name Role Phone Unavailable Unavailable DR AVI [...] Care Provider MD Rell Adamson Attending Provider Rell ADAMSON Attending Unavailable Rell ADAMSON Attending Unavailable Rell ADAMSON Attending Unavailable RICHARD BENITEZ Attending Unavailable RICHARD BENITEZ Attending Unavailable CJ MOHAMUD Attending Unavailable Avi Yepez MD Primary Care Provider Avi Yepez MD Primary Care Provider [phone] Jam LANDA, Evelyne Bradley Attending Unavailable Jam LANDA, Evelyne Bradley Attending Unavailable Jam LANDA, Evelyne Bradley Attending Unavailable Avi Yepez MD Primary Care Provider [phone] Car Cuellar PA-C Attending Provider [phone] CAR CUELLAR Attending Unavailable JR. THOMAS GEORGE C Attending UnavailMARIA E Angel Attending Unavailable CAR CUELLAR Referring Unavailable CAR CUELLAR Attending Unavailable CAR CUELLAR Attending Unavailable CAR CUELLAR Attending Unavailable Rell Adamson Admitting Unavailable Rell Adamson Attending Unavailable Avi Yepez Primary Care Unavailable Car Cuellar Admitting Unavailable Car Cuellar Attending Unavailable Car Cuellar Admitting Unavailable Car Cuellar Attending Unavailable Avi Yepez Primary Care Unavailable Allergies Allergy Classification Reported Allergen(s) Allergy Type Date of Onset Reaction(s) Facility (20 sources) Amoxicillin; Translations: [amoxicillin] Drug Allergy 0 [facility] (1 source) Amoxicillin Drug Allergy [facility] (1 source) traMADol Drug Allergy [facility] (3 sources) Penicillin; Translations: [penicillin] Drug Allergy Weal (disorder) [facility] [place] (20 sources) traMADol; Translations: [TRAMADOL] Drug Allergy 4 Unknown [facility] (1 source) Amoxicillin Drug Allergy 0 [facility] Medications Current Medications Medication Drug Class(es) Dates Sig (Normalized) Sig (Original) acetaminophen 325 mg / HYDROcodone bitartrate 5 mg oral tablet (20 sources) Opioid Agonist Start: 07-08-2024 take 1 tablet by mouth twice daily as needed for pain Seaford 325 mg-5 mg oral tablet 1 tab(s), Oral, BID as needed for pain, Refill(s) 0 Start Date: 07/08/24 Status: Ordered Start: 03-29-2024 End: 06-21-2024 take 1 tablet by mouth every twelve hours HYDROcodone-acetaminophen (Seaford) 5-325 MG tablet Take 1 tablet by mouth every 12 (twelve) hours 03/29/2024 06/21/2024 Discontinued (Therapy completed) Start: 09-26-2020 End: 07-31-2024 take 1 tablet by mouth every six hours as needed for headache HYDROcodone-acet aminophen (Seaford) 5-325 MG tablet Active Seaford 5-325 MG T ABS TAKE 1 TABLET EVERY 4 TO 6 HOURS NEEDED. Quantity: 0 Refills: 0 Ordered: 13-May-2023 DO Active Comment on above: Take 1 tablet by zainab th every 6 hours as needed. apixaban 5 mg oral tablet (20 sources) Factor Xa Inhibitor Start: 05-08-2024 Eliquis 5 MG tablet 5 mg 05/08/2024 Active ascorbic acid 1000 mg oral tablet (4 sources) Vitamin C Start: 09-26-2020 take 1 g by mouth once daily aspirin 81 mg delayed release oral tablet (20 sources) Platelet Aggregation Inhibitor, Nonsteroidal Anti-inflammatory Drug Start: 09-26-2020 take 1 tablet by mouth once daily aspirin (Vazalor e) 81 MG capsule Take by mouth Active Comment on above: Take by mouth. atorvastatin 40 mg oral tablet (4 sources) HMG-CoA Reductase Inhibitor Start: take 1 tablet by mouth once daily carvedilol 6.25 mg oral tablet (4 sources) alpha-Adrenergic Pina, beta-Adrenergic Pina Start: take [...] completed) fexofenadine hydrochloride 180 mg oral tablet (4 sources) Histamine-1 Receptor Antagonist Start: take 1 tablet by mouth once daily as needed fluocinonide 0.5 mg/ml topical cream (4 sources) Corticosteroid Start: folic acid 1 mg / polysaccharide iron complex 150 mg / vitamin b12 0.025 mg oral capsule (5 sources) Vitamin B12 Start: End: take 1 tablet by mouth once daily Iron Polysacch Mscyv-L13-XL (Poly-Iron 150 Forte) 150-0.025-1 MG capsule Indications: [...] morning September 26, 2020 1:00am Multivitamin Tablet (2 sources) Start: take 1 tablet by mouth once daily in the morning omeprazole 40 mg delayed release oral capsule (17 sources) Proton Pump Inhibitor Start: End: take [...] [Coronary atherosclerosis of unspecified type of vessel, [place] or graft] Onset: 03-04-2025 07-08-2024 Chronic Diabetes [...] Test Name Value Interpretation Reference Range Facility [facility] CMP (CMP) (FOR REMOTE FH C USE)on 07-15-2025 Albumin [Mass/Vol] 3.9 g/dL 3.4 - 5.0 g/dL [facility] ALBUMIN GLOBULIN RATIO 1 [facility] ALP [Catalytic activity/Vol] 63 U/L 46 - 116 U/L [facility] ALT [Catalytic activity/Vol] 33 U/L 16 - 63 U/L [facility] Anion gap [Moles/Vol] 10.6 mmol/L [facility] AST [Catalytic activity/Vol] 21 U/L 15 - 37 U/L [facility] Bilirubin [Mass/Vol] 1.1 mg/dL High 0.2 - 1.0 mg/dL [facility] Calcium [Mass/Vol] 9.4 mg/dL 8.5 - 10. 1 mg/dL [facility] Chloride [Moles/Vol] 103 mmol/L 98 - 107 mmol/L [facility] CO2 [Moles/Vol] 30 mmol/L 21.0 - 32.0 mmol/L [facility] Creatinine [Mass/Vol] 1.16 mg/dL 0.70 - 1.30 mg/dL [facility] GFR/1.73 sq M.predicted CKD-EPI (S/P/Bld) [Vol rate/Area] >60 >=60 mL/min/1.73 m 2 [facility] Globulin (S) [Mass/Vol] 4.1 g/dL [facility] Glucose [Mass/Vol] 116 mg/dL High 74 - 106 mg/dL [facility] Interpretation and review of laboratory results Abnormal [facility] Potassium [Moles/Vol] 3.6 mmol/L 3.5 - 5.1 mmol/L [facility] Protein [Mass/Vol] 8 g/dL 6.4 - 8.2 g/dL [facility] Sodium [Moles/Vol] 140 mmol/L 136 - 145 mmol/L [facility] TBH EGFR-NON AF NAURUAN >60 >=60 mL/min/1.73 m 2 [facility] Urea nitrogen [Mass/Vol] 14 mg/dL 7.0 - 18.0 mg/dL [facility] Urea nitrogen/Creatinin e [Mass ratio] 12.1 mg/mg [facility] ECG 12-LEADon 07-15-2025 [place] [address] Electrocardiograph Report Signed Patient: KIM NICHOLS MR#: [id number] : 1960 Acct:[id number] Age/Sex: 64 / M ADM Date: 07/15/25 Loc: LAB Attending Dr: Car LUCIANO Ordering Physician: Car Cuellar Date of Service: 07/15/25 Procedure(s): ECG 12 lead Accession Number(s): [id number] cc: [facility] Test Date: 2025-07-15 Pat Name: KIM NICHOLS Department: Room: - Gender: Male 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 Measurements Intervals [place] Rate: 71 P: 18 KS: 165 QRS: -12 QRSD: 87 T: 19 QT: 374 QTc: 407 Interpretive Statements SINUS RHYTHM LOW QRS VOLTAGE IN PRECORDIAL LEADS [QRS DEFLECTION < 1.0 mV IN CHEST LEADS] Abnormal ECG Compared to ECG 05/07/2024 12:44:31 No significant changes Electronically Signed On 07-15-2025 20:02:29 EDT by ELIAS ANN M.D. 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 Measurements Intervals [place] Rate: 71 P: 18 KS: 165 QRS: -12 QRSD: 87 T: 19 QT: 374 QTc: 407 Interpretive Statements SINUS RHYTHM LOW QRS VOLTAGE IN PRECORDIAL LEADS [QRS DEFLECTION < 1.0 mV IN CHEST LEADS] Abnormal ECG Compared to ECG 05/07/2024 12:44:31 No significant changes Electronically Signed On 07-15-2025 20:02:29 EDT by ELIAS ANN M.D. Dictated By: ELIAS ANN Signed By: 07/15/25200107/15/252001 DD/ 105 TD/TT: Furniture Manager: [facility] Radiology Study observation (narrative) [facility] ECG 12-LEADOrdered By: ReDent Novat Radiology on 07-15-2025 [facility] Work Phone: Urine Cultureon 07-15-2025 Bacteria identified Cx Nom (U) No Growth 2 Days PERFORMED BY: [place] [address] PATHOLOGIST PHOTOGRAPHIC PROCESS SCREEN MAKER DOLORES RODRÍGUEZ M.D. Normal [facility] Comment on above: Performed By: #### C UU #### [address] X-ray reportOrdered By: Ángel Huerta on 07-14-2025 Study report [facility] Main [place] [address] [place] [address] XRay Report Signed Patient: Kim Nichols MR#: [id number] : 1960 Acct:[id number] Age/Sex: 64 / M ADM Date: 5 Loc: XDS Room: Type: [facility] Attending Dr: Car Cuellar PA-C Copies to: Car Cuellar PA-C~ Ordering Provider: Car Cuellar PA-C Date of Service: 07/14/25 XR/XR femur BI: PRE OP ([id number]) XR/XR tibia/fibula BI: PRE OP History: Preop assessment for left total knee arthroplasty. Plain film imaging of the femurs. Adequate alignment. No acute displaced fracture. The right greater trochanter out of the field of view. No significant hip degeneration. Extensive left knee medial esfv-hy-auad contact degeneration. Unremarkable right knee. Plain film imaging of the tibia and fibula bilaterally. No acute displaced fracture. Adequate ankle joints. XR/XR tibia/fibula BI IMPRESSION: Extensive left and medial cvqp-td-kmxm contact the degeneration. Unremarkable hips. Unremarkable ankles. Impression dictated by: Tom Huerta M.D. 07/14/2025 4:10 PM Dictation Location: [facility] Transcribed By: [facility] 07/14/25 1610 Dictated By: Tom Huerta DO 07/14/25 1608 Signed By: 07/14/25 1610 [facility] XR femur BIon 07-14-2025 XR femur BI [facility] Main [address] [address] XRay Report Signed Patient: Kim Nichols MR#: [id number] : 1960 Acct:[id number] Age/Sex: 64 / M ADM Date: 07/14/25 Loc: XDS Room: Type: [facility] Attending Dr: Car Cuellar PA-C Copies to: Car Cuellar PA-C Ordering Provider: Car Cuellar PA-C Date of Service: 07/14/25 XR/XR femur BI: PRE OP ([id number]) XR/XR tibia/fibula BI: PRE OP History: Preop assessment for left total knee arthroplasty. Plain film imaging of the femurs. Adequate alignment. No acute displaced fracture. The right greater trochanter out of the field of view. No significant hip degeneration. Extensive left knee medial sogv-jq-riul contact degeneration. Unremarkable right knee. Plain film imaging of the tibia and fibula bilaterally. No acute displaced fracture. Adequate ankle joints. XR/XR tibia/fibula BI IMPRESSION: Extensive left and medial dmxy-km-lbmv contact the degeneration. Unremarkable hips. Unremarkable ankles. Impression dictated by: Tom Huerta M.D. 07/14/2025 4:10 PM Dictation Location: [place] [address] Transcribed By: [facility] 07/14/25 1610 Dictated By: Tom Huerta DO 07/14/25 1608 Signed By: 07/14/25 1610 Normal [facility] Office Visiton 03-04-2025 Follow-up visit [id number] Kim Nichols 1960 M Date Provider Department Center 03/04/2025 [id number] [facility] Family History Problem Relation Age of Onset Brain Aneurysm Mother Stroke Father Heart attack Sister Family Status - Relation Status Age at Mother Father Sister Level of Service:[address] [place] OFFICE/OUTPATIENT ESTABLISHED LOW MDM 20 MIN Reason for Visit and Comments: Coronary Artery Disease [187] - Denies SOB. Atrial Fibrillation [80] - On Eliquis, denies bleeding. Denies palpitations and syncope. Hyperlipidemia [182] - Had lipid panel in May 2024. On rosuvastatin. Hypertension [558502] Chest Pain [286473] - Intermittent, blames his hiatal hernia and back pain. Normal [facility] No Panel Informationon 02-18 ANKITA Stapleton [...] and draped in the usual sterile fashion. [facility] Office Visiton 09-09-2024 Follow-up visit [id number] Kim Nichols 1960 M Date Provider Department Center 09/09/2024 3848-RICHARD BENITEZ [facility] Family History Problem Relation Age of Onset Brain Aneurysm Mother Stroke Father Heart attack Sister Family Status - Relation Status Age at Mother Father Sister Level of Service:[address]647 [place] OFFICE/OUTPATIENT ESTABLISHED LOW MDM 20 MIN Normal [facility] Ambulatory Visit Summaryon 1 11-08-2023 Ambulatory Visit Summary Ambulatory Visit Summary KIM NICHOLS :1960 Visit Date:09/08/2024 Ambulatory Visit Instructions Your Care Team Attending Physician - SNOW LANDA, Rell Marr Primary Care Physician - Avi Yepez MD This Is Your Medications List acetaminophen-hydrocodone (Seaford 325 mg-5 mg oral tablet) apixaban (Eliquis [...] What How Much When Instructions Unchanged acetaminophen-hydrocodone (Seaford 325 mg-5 mg oral tablet) 1 Tablets [...] for choosing us for your care. Normal [facility] General Surgery Office/Clini c Noteon 09-08-2024 General [...] Tab, 25 mg= 1 tab(s), Oral, BID Seaford 325 mg-5 mg oral tablet, 1 tab(s), [...] virus vaccine, inactivated 09/12/2023 Recorded SARS-CoV-2 (COVID-19) [id number] 10/14/2022 Recorded influenza virus vaccine, inactivated 10/03/2022 Recorded SARSCoV2 mRNA(dxhfggsae-ijtu-hcqtbw) vac 03/22/2022 Recorded SARS-CoV-2 (COVID-19) mRNA BNT-162b2 vax 09/03/2021 Recorded influenza virus vaccine, inactivated 08/25/2021 Recorded SARS-CoV-2 (COVID-19) mRNA BNT-162b2 vax 02/13/2021 Recorded SARS-CoV-2 (COVID-19) mRNA BNT-162b2 vax 01/20/2021 Recorded SARS-CoV-2 (COVID-19) mRNA BNT-162b2 vax 01/13/2021 Recorded SARS-CoV-2 (COVID-19) mRNA BNT-162b2 vax 12/23/2020 Recorded influenza virus vaccine, inactivated 08/28/2020 Recorded Normal [facility] Comment on above: Result Comment: Elec tronically Signed By: SNOW LANDA, Rell Marr\.br\Date and Time Signed: 09/08/24 16:32 EST Reminderson 08-26-2024 Reminders Reminders From: María Ayala LPN To: N - Clinical; Sent: 08/26/2024 11:53:39 EDT Show up: 07/26/2034 07:00:00 EDT Subject: colonoscopy recall Due Date/Time: 08/25/2034 07:00:00 EDT Reminder/Recall Patient due for screening colonoscopy 08/25/2034. Normal [facility] Pathology Request for Lab Co rpon 08-25-2024 Pathology Request for Lab Le Normal [facility] Comment on above: Order Comment: PATHO LOGY GI SPECIMEN Result Comment: See report. Scanned copy available in EMR. PERFORMED BY: [place] [address] PATHOLOGIST PHOTOGRAPHIC PROCESS SCREEN MAKER MICHAEL LEMUS M.D. Performed By: #### P ATH TO [facility] #### [address] Ambulatory Visit Summaryon 0 07-20-2024 Ambulatory [...] prescribing physician if questions or concerns acetaminophen-hydrocodone (Seaford 325 mg-5 mg oral tablet) apixaban (Eliquis [...] What How Much When Instructions Unchanged acetaminophen-hydrocodone (Seaford 325 mg-5 mg oral tablet) 1 Tablets [...] for choosing us for your care. Normal [facility] ALL CBC WITH AUTO DIFFon BASOPHILS ABSOLUTE AUTO 0.0 [facility] Basophils/100 WBC (Bld) 0.5 % 0.2 - 2.0 % [facility] Eosinophils/100 WBC (Bld) 3.0 % 0.9 - 7.0 % [facility] Erythrocyte distribution width (RBC) [Ratio] 13.9 % 11.0 - 15.0 % [facility] Hematocrit (Bld) [Volume fraction] 46.2 % 42.0 - 54.0 % [facility] Hemoglobin (Bld) [Mass/Vol] 15.6 g/dL 14.0 - 18.0 g/dL [facility] IMMATURE GRANULOCYTES ABS AUTO 0.03 [facility] Immature granulocytes/100 WBC (Bld) 0.5 % 0.0 - 0.5 % [facility] LYMPHOCYTES ABSOLUTE AUTO 1.4 [facility] Lymphocytes/100 WBC (Bld) 22.3 % 20.5 - 60.0 % [facility] MCH (RBC) [Entitic mass] 28.9 pg 25.9 - 34.0 pg [facility] MCHC (RBC) [Mass/Vol] 33.8 g/dL 29.9 - 35.2 g/dL [facility] MCV (RBC) [Entitic vol] 85.7 fL 80.0 - 94.0 fL [facility] MONOCYTES ABSOLUTE AUTO 0.7 [facility] Monocytes/100 WBC (Bld) 11.6 % 1.7 - 12.0 % [facility] NEUTROPHILS ABSOLUTE AUTO 4.0 [facility] Neutrophils/100 WBC (Bld) 62.1 % 43.0 - 75.0 % [facility] Platelet mean volume (Bld) [Entitic vol] 10.5 fL 9.5 - 13.5 fL [facility] TBH EO # 0.2 [facility] TB PLT 246 [facility] TB RBC 5.39 [facility] TB WBC 6.4 [facility] Healthcare Office Visiton 06-11-2024 Follow-up visit [id number] Kim Nichols 1960 M Date Provider Department [place] 06/11/2024 3848-RICHARD BENITEZ Hos Family History Problem Relation Age of Onset Brain Aneurysm Mother Stroke Father Heart attack Sister Family Status - Relation Status Age at Mother Father Sister Level of Service:[address] [place] OFFICE/OUTPATIENT NEW MODERATE MDM 45 MINUTES Reason for Visit and Comments: New Patient [Other] - CHEST PAIN/AFIB Normal [facility] CNOVon 2023 CNOV Office Visit ([facility] ) KIM NICHOLS ([id number]) 1960 M Date Time Provider Department 08/04/23 8:00 AM JUAN R LING During your visit today, we recorded the following information about you: Weight Height 120.2 kg 1.829 m Paul Escoto Bossman 2023 9:14 AM Signed Pt has been [...] opioids Medications: See medication reconciliation list in [facility] MEDICATIONS: Gabapentin, Seaford, Tylenol Have you ever seen a pain [...] issues. 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 [facility] 07-08-2023 [facility] Telephone (SPNMMN) KIM NICHOLS ([id number]) 1960 Date Time Provider Department 07/08/23 NIKOLAY CAMP [facility] During your visit today, we recorded the following information about you: Stacy Gallagher RN 07/08/2023 12:56 PM Signed Post Spine Injection phone call: [phone] on 07/08/23 Patient denies fever, chills, new [...] appointment 2-4 weeks post procedure by calling [phone] Patient does not have any questions or concerns. Patient will call office with any questions or concerns. Allergies As of Date: 07/08/2023 Noted Allergy Reaction AMOXICILLIN 09/26/2020 4 - Hives 2 - Rash Date Reviewed: 07/01/2023 Reviewed by: Fausto Pal FAVIOLA - Fully Assessed Reason for Visit: [...] Encounter Status:Closed by STACY GALLAGHER on 07/08/23 [facility] HISTORY PHYSICALon HISTORY PHYSICAL HNO ID: [id number] Author: Sherice Galvin APRN.DOPE SPRAYER Service: ? Author Type: Nurse Practitioner Type: [...] Prophylaxis/Anticoagulants VTE Prophylaxis: NA SIGNATURE: Sherice Galvin APRN.DOPE SPRAYER PATIENT NAME: Kim Nichols DATE: July 01, 2023 TIME: 9:04 AM Normal [facility] OPERATIVE NOon 07-01-2023 OPERATIVE NO HNO ID: [id number] Author: Nikolay Camp DO Service: Physical Medicine AND Rehabilitation Author Type: Physician Type: Operative Report Filed: 07/01/2023 9:40 AM Note Text: PROCEDURE REPORT Surgery/Procedure Date: July 01, 2023 Interventionalist: Nikolay Camp DO Procedure(s): Left L5 transforaminal epidural steroid injection Pre-Op/Pre-Procedure Diagnosis: Lumbar radiculopathy Post-Op Diagnosis: same SUBJECTIVE: Kim Nichols is a 62 year old male, who presents to the [facility] for a left L5 transforaminal epidural steroid injection. This is his first (1) procedure. 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 Pain is [...] Castrejon [facility] Nina [facility] KIM NICHOLS ([id number]) 1960 M Date Time Provider Department 06/26/23 [facility] CAMP [facility] During your visit today, we recorded the following information about you: Oscar Rollins LPN 06/26/2023 9:20 AM Signed Phoned patient and message left for Kim to confirm appointment for Kim Nichols for spine procedure on 07/01/2023. Patient notified that Forreston will call patient the night before with the time to arrive for injection. Patient verbalized understanding of the following: -Provided education on spine procedure and answered questions related to spine injection procedure. -Lvn Lpn is needed to drive patient home. -NPO [...] to report. Diabetic: No Patient given number [phone], spine injections schedulers, if there is any need to reschedule/ change appointment during normal business hours. Active [facility] users were informed to read [facility] procedure instructions prior to appointment. AMBULATORY PATIENT [...] Encounter Status:Closed by OSCAR ROLLINS on 06/26/23 [facility] CNOVon 06-02-2023 CNOV Office Visit (SPNSMN ) KIM NICHOLS ([id number]) 1960 M Date Time Provider Department 06/02/23 1:40 PM [facility] During your visit today, we recorded the following information about you: Pulse Respiration Blood pressure Weight 63/minute 18/minute 128/84 117 kg Height 1.829 m Darren Elizabeth, KRYS.DOPE SPRAYER 06/03/2023 1:01 PM Signed SPINE SURGERY OUTPATIENT [...] with him pain. He also is prescribed Seaford for breakthrough pain which he only takes [...] Weight Tips; Status:Complete - Retrospective Authorization; Done: [id number] Some eating tips that can help you lose weight.; Status:Complete - Retrospective Authorization; Done: [id number] Coronary disease, Hyperlipidemia Renew: Aspirin EC Low Dose 81 MG Oral Tablet Delayed Release; TAKE 1 TABLET DAILY DIRECTED Hyperlipidemia Renew: Rosuvastatin Calcium 20 MG Oral Tablet; take 1 tablet by mouth at bedtime SocHx: Never a smoker Tobacco Use Screening; Status:Complete; Done: [id number] Patient Instructions Please bring all medicines, vitamins, [...] MG Oral CapsuleTAKE 1 CAPSULE TWICE DAILY. Seaford 5-325 MG TABSTAKE 1 TABLET EVERY 4 [...] negative for complaint. Vitals Vital Signs Recorded: [id number] 11:22AM Heart Rate64, R Radial Vogmmrkh584, RUE, Sitting Lfrngpznk27, RUE, Sitting Height6 ft Lqmkdt492 lb BMI Omzjolwjox05.21 kg/m2 BSA Calculated2.41 Tobacco Useb) No PHQ-2 [...] no hep (more content not included)... Normal [facility] Tobacco Screening.on 023 Adult depression screening assessment No [facility] [address] DO Work Phone: Tobacco use status [facility] b) No [facility] [address] DO Work Phone: Tobacco Screening.on 022 Adult depression screening assessment No -[facility] [address] DO Work Phone: Fall risk assessment c) Not medically indicated [facility] [place] [facility] DO Work Phone: Tobacco use status [facility] b) No -[facility] [address] DO Work Phone: H PYLORI ANTIBODY IGGon 11-28 H. PYLORI IGG ABS 0.45 Index Value Normal 0.00-0.79 [facility] Comment on above: Result Comment: Nega tive <0.80 Equivocal 0.80 - 0.89 Positive >0.89 Performed By: #### L IPID, TSH, T7, URIC, CMP #### [facility] [address] [place] [address] [address] Conor Chan INSULINon 12-21-2021 Insulin 55.2 uIU/mL Critically high 2.6-24.[address] [facility] Comment on above: Performed By: #### I NSULIN #### [facility] [address] [place] [address] [address] Conor Chan TESTOSTERONE, TOTALon 2021 Testosterone [Mass/Vol] 380 ng/dL Normal 264-916 [facility] Comment on above: Result Comment: Adul t male reference interval is based on a population of healthy nonobese males (BMI <30) between 19 and 39 years old. román Cool.al. JCEM 2017,102;4986-7405. PMID: [id number]. Performed By: #### L IPID, TSH, T7, URIC, CMP #### [facility] [address] [place] [address] [address] Conor Chan CBC AUTO DIFFon 12-20-2021 BASO # 0.0 103/ul Normal 0.0-0.1 [facility] Comment on above: Performed By: #### C BC #### [facility] [address] [place] [address] [address] Conor Chan Basophils/100 WBC (Bld) 0.5 % Normal 0.2-2.0 [facility] Comment on above: Performed By: #### C BC #### [facility] [address] [place] [address] [address] Conor Chan EO # 0.2 103/ul Normal 0.0-0.7 [facility] Comment on above: Performed By: #### C BC #### [facility] [address] [place] [address] [address] Conor Chan Eosinophils/100 WBC (Bld) 3.5 % Normal 0.9-7.0 [facility] Comment on above: Performed By: #### C BC #### [facility] [address] [place] [address] [address] Conor Chan Erythrocyte distribution width (RBC) [Ratio] 13.8 % Normal 11.0-15.0 [facility] Comment on above: Performed By: #### C BC #### [facility] [address] [address] [address] Conor Chan Hematocrit (Bld) [Volume fraction] 48.5 % Normal 42.0-54.0 [facility] Comment on above: Performed By: #### C BC #### [facility] [address] [address] [address] Conor Chan Hemoglobin (Bld) [Mass/Vol] 16.3 g/dL Normal 14.0-18.0 [facility] Comment on above: Performed By: #### C BC #### [facility] [address] [address] [address] Conor Chan IG # 0.02 10e3/ul Normal 0.00-0.03 [facility] Comment on above: Performed By: #### C BC #### [facility] [address] [place] [address] Dr. Conor Chan IG % 0.3 % Normal 0.0-0.5 [facility] Comment on above: Performed By: #### C BC #### [facility] [address] [place] [address] Dr. Conor Chan LYMPH # 1.4 103/ul Normal 1.2-3.8 [facility] Comment on above: Performed By: #### C BC #### [facility] [address] [place] [address] Dr. Conor Chan Lymphocytes/100 WBC (Bld) 21.7 % Normal 20.5-60.0 [facility] Comment on above: Performed By: #### C BC #### [facility] [address] [place] [address] Dr. Conor Chan MANUAL DIFF REQ NO Normal [facility] Comment on above: Performed By: #### C BC #### [facility] [address] [place] [address] Dr. Conor Chan MCH (RBC) [Entitic mass] 28.5 pg Normal 25.9-34.0 [facility] Comment on above: Performed By: #### C BC #### [facility] [address] [place] [address] Dr. Conor Chan MCHC (RBC) [Mass/Vol] 33.6 g/dL Normal 29.9-35.2 [facility] Comment on above: Performed By: #### C BC #### [facility] [address] [place] [address] Dr. Conor Chan MCV (RBC) [Entitic vol] 84.9 fL Normal 80.0-94.0 [facility] Comment on above: Performed By: #### C BC #### [facility] [address] [place] [address] Dr. Conor Chan MONO # 0.6 103/ul Normal 0.3-0.8 [facility] Comment on above: Performed By: #### C BC #### [facility] [address] [place] [address] Dr. Conor Chan Monocytes/100 WBC (Bld) 9.3 % Normal 1.7-12.0 [facility] Comment on above: Performed By: #### C BC #### [facility] [address] [place] [address] Dr. Conor Chan NEUT # 4.1 103/ul Normal 1.4-6.5 [facility] Comment on above: Performed By: #### C BC #### [facility] [address] [place] [address] Dr. Conor Chan Neutrophils/100 WBC (Bld) 64.7 % Normal 43.0-75.0 [facility] Comment on above: Performed By: #### C BC #### [facility] [address] [place] [address] Dr. Conor Chan Platelet mean volume (Bld) [Entitic vol] 9.8 fL Normal 9.5-13.5 [facility] Comment on above: Performed By: #### C BC #### [facility] [address] [place] [address] Dr. Conor Chan PLT 235 103/ul Normal 150-450 [facility] Comment on above: Performed By: #### C BC #### [facility] [address] [place] [address] Dr. Conor Chan RBC 5.71 106/ul Normal 4.70-6.10 [facility] Comment on above: Performed By: #### C BC #### [facility] [address] [place] [address] Dr. Conor Chan WBC 6.4 103/ul Normal 4.0-11.0 [facility] Comment on above: Performed By: #### C BC #### [facility] [address] [place] [address] Dr. Conor Chan FREE THYROXINE INDEX T7on FTI 2.89 Normal [facility] Comment on above: Performed By: #### L IPID, TSH, T7, URIC, CMP #### [facility] [address] [place] [address] Dr. Conor Chan T3U 34.0 % Normal 23.5-40.5 [facility] Comment on above: Performed By: #### L IPID, TSH, T7, URIC, CMP #### [facility] [address] [place] [address] Dr. Conor Chan T4 [Mass/Vol] 8.50 ug/dL Normal 5.53-11.00 [facility] Comment on above: Performed By: #### L IPID, TSH, T7, URIC, CMP #### [facility] [address] [place] [address] Dr. Conor Chan GLYCOHEMOGLOBIN A1Con 2021 ADA RECOMMENDATION ADA THERAPEUTIC TARG ET 6.0 - 7.0 ACTION SUGGESTED > 7.0 Normal [facility] Comment on above: Performed By: #### A 1C #### [facility] [address] [place] [address] Dr. Conor Chan Glucose [Mass/Vol] 126 mg/dL Normal [facility] Comment on above: Performed By: #### A 1C #### [facility] [address] [place] [address] Dr. Conor Chan HbA1c (Bld) [Mass fraction] 6.0 % Normal <=6.0 [facility] Comment on above: Performed By: #### A 1C #### [facility] [address] [place] [address] Dr. Conor Chan LIPID PROFILEon 12-20-2021 CHOL-HDL RATIO NORM SEE BELOW Normal [facility] Comment on above: Result Comment: 3.3 - 4.4 LOW RISK 4.4 - 7.1 AVERAGE RISK 7.1 - 11.0 MODERATE RISK >11.0 HIGH RISK Performed By: #### L IPID, TSH, T7, URIC, CMP #### [facility] [address] [place] [address] Dr. Conor Chan Cholesterol [Mass/Vol] 161 mg/dL Normal <=200 [facility] Comment on above: Performed By: #### L IPID, TSH, T7, URIC, CMP #### [facility] [address] [address] [address] Conor Chan Cholesterol in HDL [Mass/Vol] 50 mg/dL Normal [facility] Comment on above: Performed By: #### L IPID, TSH, T7, URIC, CMP #### [facility] [address] [address] [address] Conor Chan Cholesterol in LDL [Mass/Vol] 96.0 mg/dL Normal [facility] Comment on above: Performed By: #### L IPID, TSH, T7, URIC, CMP #### [facility] [address] [address] [address] Conor Chan Cholesterol.total/ Cholesterol in HDL [Mass ratio] 3.2 {ratio} Normal [facility] Comment on above: Performed By: #### L IPID, TSH, T7, URIC, CMP #### [facility] [address] [address] [address] Conor Chan HDL NORMAL > or = 60 mg/dl - LO W CARDIOVASCULAR RISK <40 mg/dl - HIGH CARDIOVASCULAR RISK Normal [facility] Comment on above: Performed By: #### L IPID, TSH, T7, URIC, CMP #### [facility] [address] [address] [address] Conor Chan LDL CALC NORMAL SEE BELOW Normal [facility] Comment on above: Result Comment: <100 mg/dl OPTIMAL 100 - 129 mg/dl NEAR OR ABOVE OPTIMAL 130 - 159 mg/dl BORDERLINE HIGH 160 - 189 mg/dl HIGH >190 mg/dl VERY HIGH Performed By: #### L IPID, TSH, T7, URIC, CMP #### [facility] [address] [address] [address] Conor Chan Triglyceride [Mass/Vol] 75 mg/dL Normal <=150 [facility] Comment on above: Performed By: #### L IPID, TSH, T7, URIC, CMP #### [facility] [address] [address] [address] Conor Chan VLDL CALC 15.0 mg/dL Normal [facility] Comment on above: Performed By: #### L IPID, TSH, T7, URIC, CMP #### [facility] [address] [place] [address] Dr. Conor Chan PROF 14(COMP METB)on 022 Albumin [Mass/Vol] 3.7 g/dL Normal 3.5-5.[address] [facility] Comment on above: Performed By: #### L IPID, TSH, T7, URIC, CMP #### [facility] [address] [place] [address] Dr. Conor Chan Albumin/Globulin [Mass ratio] 0.9 {ratio} Normal [facility] Comment on above: Performed By: #### L IPID, TSH, T7, URIC, CMP #### [facility] [address] [place] [address] Dr. Conor Chan ALP [Catalytic activity/Vol] 58 U/L Normal 38-126 [facility] Comment on above: Performed By: #### L IPID, TSH, T7, URIC, CMP #### [facility] [address] [place] [address] Dr. Conor Chan ALT [Catalytic activity/Vol] 40 U/L Normal 21-72 [facility] Comment on above: Performed By: #### L IPID, TSH, T7, URIC, CMP #### [facility] [address] [place] [address] Dr. Conor Chan Anion gap [Moles/Vol] 5.5 mmol/L Normal [facility] Comment on above: Performed By: #### L IPID, TSH, T7, URIC, CMP #### [facility] [address] [place] [address] Dr. Conor Chan AST [Catalytic activity/Vol] 18 U/L Normal 17-59 [facility] Comment on above: Performed By: #### L IPID, TSH, T7, URIC, CMP #### [facility] [address] [place] [address] Dr. Conor Chan Bilirubin [Mass/Vol] 0.5 mg/dL Normal 0.2-1.3 [facility] Comment on above: Performed By: #### L IPID, TSH, T7, URIC, CMP #### [facility] [address] [place] [address] Dr. Conor Chan Calcium [Mass/Vol] 9.9 mg/dL Normal 8.4-10.[address] [facility] Comment on above: Performed By: #### L IPID, TSH, T7, URIC, CMP #### [facility] [address] [place] [address] Dr. Conor Chan Chloride [Moles/Vol] 97 mmol/L Critically low 98-107 [facility] Comment on above: Performed By: #### L IPID, TSH, T7, URIC, CMP #### [facility] [address] [place] [address] Dr. Conor Chan CO2 [Moles/Vol] 30.7 mmol/L Critically high 22.0-30.0 [facility] Comment on above: Performed By: #### L IPID, TSH, T7, URIC, CMP #### [facility] [address] [place] [address] Dr. Conor Chan Creatinine [Mass/Vol] 1.04 mg/dL Normal 0.66-1.25 [facility] Comment on above: Performed By: #### L IPID, TSH, T7, URIC, CMP #### [facility] [address] [place] [address] Dr. Conor Chan EGFR-AF NAURUAN >60 Normal >=[address] [facility] Comment on above: Performed By: #### L IPID, TSH, T7, URIC, CMP #### [facility] [address] [place] [address] Dr. Conor Chan EGFR-NON AF NAURUAN >60 Normal >=60 [facility] Comment on above: Performed By: #### L IPID, TSH, T7, URIC, CMP #### [facility] [address] [place] [address] Dr. Conor Chan Globulin (S) [Mass/Vol] 4.2 g/dL Normal [facility] Comment on above: Performed By: #### L IPID, TSH, T7, URIC, CMP #### [facility] [address] [place] [address] Dr. Conor Chan Glucose [Mass/Vol] 122 mg/dL Critically high 74-106 [facility] Comment on above: Performed By: #### L IPID, TSH, T7, URIC, CMP #### [facility] [address] [place] [address] Dr. Conor Chan Potassium [Moles/Vol] 3.2 mmol/L Critically low 3.4-5.0 [facility] Comment on above: Performed By: #### L IPID, TSH, T7, URIC, CMP #### [facility] [address] [place] [address] Dr. Conor Chan Protein [Mass/Vol] 7.9 g/dL Normal 6.1-8.[address] [facility] Comment on above: Performed By: #### L IPID, TSH, T7, URIC, CMP #### [facility] [address] [place] [address] Dr. Conor Chan Sodium [Moles/Vol] 130 mmol/L Critically low 137-145 [facility] Comment on above: Performed By: #### L IPID, TSH, T7, URIC, CMP #### [facility] [address] [place] [address] Dr. Conor Chan Urea nitrogen [Mass/Vol] 15.0 mg/dL Normal 9.0-20.0 [facility] Comment on above: Performed By: #### L IPID, TSH, T7, URIC, CMP #### [facility] [address] [place] [address] Dr. Conor Chan Urea nitrogen/Creatinin e [Mass ratio] 14.4 mg/mg Normal [facility] Comment on above: Performed By: #### L IPID, TSH, T7, URIC, CMP #### [facility] [address] [place] [address] Dr. Conor Chan TSHon 12-20-2021 TSH 2.122 uIU/mL Normal 0.470-4.680 [facility] Comment on above: Performed By: #### L IPID, TSH, T7, URIC, CMP #### [facility] [address] [place] [address] Dr. Conor Chan TSH RANGE SEE BELOW Normal [facility] Comment on above: Result Comment: <0.3 4 UIU/ml HYPERTHYROID 0.34-5.60 UIU/ml EUTHYROID >5.60 UIU/ml HYPOTHYROID Performed By: #### L IPID, TSH, T7, URIC, CMP #### [facility] [address] [place], [place] [address] Dr. Conor Chan URIC ACID SERUMon 12-20-2021 Urate [Mass/Vol] 7.3 mg/dL Normal 3.5-8.[address] [facility] Comment on above: Performed By: #### L IPID, TSH, T7, URIC, CMP #### [facility] [address] [place], [place] [address] Dr. Conor Chan XR LSPINE MIN 4 [...] by: OSCAR FRANCO Date: 2021-12-20 10:06 Normal [facility] Vital Signs Date Time Vital Sign Value Performing Clinician Facility 07-14-2025 08:50-0400 Body height 182.9 cm Car LUCIANO Work Phone: [facility] 07-14-2025 08:50-0400 Body mass index (BMI) [Ratio] 37.51 kg/m2 Car LUCIANO Work Phone: [facility] 07-14-2025 08:50-0400 Body weight 125.47 kg Car LUCIANO Work Phone: [facility] 07-20-2024 13:29-0400 Blood Pressure Location Rell ADAMSON [facility] [place] 07-20-2024 13:29-0400 Diastolic blood pressure 78 mm[Hg] Rell NILL [facility] 07-20-2024 13:29-0400 Heart rate 72 /min Rell VALENCIAL [facility] 07-20-2024 13:29-0400 Respiratory rate 16 /min Rell VALENCIAL [facility] 07-20-2024 13:29-0400 Systolic blood pressure 116 mm[Hg] Rlel VALENCIAL [facility] 07-08-2024 09:47-0400 Body height 182.9 cm Car LUCIANO Work Phone: [facility] 07-08-2024 09:47-0400 Body mass index (BMI) [Ratio] 36.84 kg/m2 Car LUCIANO Work Phone: [facility] 07-08-2024 09:47-0400 Body weight 123.2 kg Car LUCIANO Work Phone: [facility] 2023 08:03-0400 Body height 182.9 cm Bilal Butt Work Phone: [facility] 2023 08:03-0400 Body weight 120.2 kg Bilal Butt Work Phone: [facility] 06-02-2023 13:26-0400 Body height 182.9 cm Darren Elizabeth APRN.[employer]OPE [employer] Work Phone: [facility] 06-02-2023 13:26-0400 Body weight 117.03 kg Darren Elizabeth APRN.[employer] Work Phone: [facility] 06-02-2023 13:26-0400 Diastolic blood pressure 84 mm[Hg] Darren Elizabeth APRN.[employer] Work Phone: [facility] 06-02-2023 13:26-0400 Heart rate 63 /min Darren Elizabeth APRN.[employer]OPE [employer] Work Phone: [facility] 06-02-2023 13:26-0400 Respiratory rate 18 /min Darren Elizabeth EXECUTIVE VICE PRESIDENT AND CHIEF FINANCIAL OFFICER.[employer] Work Phone: [facility] 06-02-2023 13:26-0400 SaO2% (BldA) [Mass fraction] 95 % Darren Elizabeth EXECUTIVE VICE PRESIDENT AND CHIEF FINANCIAL OFFICER.[employer]OPE [employer]ER Work Phone: [facility] 06-02-2023 13:26-0400 Systolic blood pressure 128 mm[Hg] Darren Elizabeth EXECUTIVE VICE PRESIDENT AND CHIEF FINANCIAL OFFICER.[employer] Work Phone: [facility] 05-13-2023 11:22-0400 Body height 182.88 cm Avi M Hoy Work Phone: [facility] DO Work Phone: 05-13-2023 11:22-0400 Body mass index (BMI) [Ratio] 36.21 kg/m2 Avi M Hoy Work Phone: [facility] DO Work Phone: 05-13-2023 11:22-0400 Body surface area Derived from formula 2.41 m2 Avi M Hoy Work Phone: [facility] 250 DO Work Phone: 05-13-2023 11:22-0400 Body weight 121.11 kg Avi M Hoy Work Phone: [facility] 250 DO Work Phone: 05-13-2023 11:22-0400 Diastolic blood pressure 78 mm[Hg] Avi M Hoy Work Phone: [facility] DO Work Phone: 05-13-2023 11:22-0400 Heart rate 64 /min Avi M Hoy Work Phone: [facility] 250 DO Work Phone: 05-13-2023 11:22-0400 Systolic blood pressure 132 mm[Hg] Avi M Hoy Work Phone: [facility] [facility] DO Work Phone: 05-07-2022 11:36-0400 Body height 182.88 cm Avi Aguilar Hoy Work Phone: [facility] 250 DO Work Phone: 05-07-2022 11:36-0400 Body mass index (BMI) [Ratio] 38.38 kg/m2 Avi Lauren Hoy Work Phone: [facility] DO Work Phone: 05-07-2022 11:36-0400 Body surface area Derived from formula 2.47 m2 Avi Lauren Hoy Work Phone: [facility] DO Work Phone: 05-07-2022 11:36-0400 Body weight 128.37 kg Avi Lauren Hoy Work Phone: [facility] DO Work Phone: 05-07-2022 11:36-0400 Diastolic blood pressure 72 mm[Hg] Avi Lauren Hoy Work Phone: [facility] DO Work Phone: 05-07-2022 11:36-0400 Heart rate 66 /min Avi Lauren Hoy Work Phone: [facility] DO Work Phone: 05-07-2022 11:36-0400 Systolic blood pressure 110 mm[Hg] Avi Lauren Hoy Work Phone: [facility] DO Work Phone: Encounters Encounter Date Encounter Type Care Provider Facility Start: 07-15-2025 End: 07-15-2025 Clinisync Result Encounter Car LUCIANO Work Phone: [facility] Unsolicited Start: 07-15-2025 End: 07-16-2025 Clinisync Result Encounter Car LUCIANO Work Phone: [facility] Unsolicited Start: 07-15-2025 End: 07-16-2025 External Result Encounter Car LUCIANO Work Phone: [facility] Unsolicited Start: 07-15-2025 End: 07-15-2025 ambulatory Avi Yepez MD Work Phone: [facility] Work Phone: Start: 07-15-2025 End: 07-15-2025 Departed Referred Car LUCIANO-[facility] Start: 07-14-2025 End: 07-14-2025 Bamboo flowsheet Car LUCIANO Work Phone: [facility] Start: 07-14-2025 End: 07-14-2025 Bamboo flowsheet Car LUCIANO Work Phone: [facility] Start: 07-14-2025 End: 07-14-2025 Patient encounter procedure Car LUCIANO Work Phone: [facility] Comment on above: Pre-op examination ( Primary Dx); Arthritis of left knee Start: 07-14-2025 End: 07-14-2025 Preprocedural examination done Car LUCIANO Work Phone: [facility] Start: 07-14-2025 End: 07-14-2025 ambulatory Avi Yepez MD Work Phone: [facility] Work Phone: Start: 07-04-2025 End: 07-04-2025 ambulatory Evelyne Polk MD Facility:[facility] Start: 06-17-2025 End: 06-17-2025 Bamboo flowsheet Car LUCIANO Work Phone: [facility] Start: 06-17-2025 End: 06-17-2025 Bamboo flowsheet aCr LUCIANO Work Phone: [facility] Start: 06-13-2025 End: 06-13-2025 ambulatory Evelyne Polk MD Facility: [facility] Start: 04-20-2025 End: 04-20-2025 Bambowade virk Jr. Elias Lewis Stepanic DO Work Phone: [facility] Start: 04-20-2025 End: 04-20-2025 Bamboo flowsheet Elais Lewis Stepanic DO Work Phone: [facility] Start: 04-20-2025 End: 04-20-2025 Office outpatient visit 40 minutes Elias Lewis Stepanic DO Work Phone: [facility] Comment on above: Acute pain of left k nee (Primary Dx); Arthritis of left knee Start: 04-20-2025 End: 04-20-2025 ambulatory ELIAS EDEN Not Available Start: 03-04-2025 End: 03-04-2025 ambulatory [facility] Start: 02-18-2025 End: 02-18-2025 Office outpatient visit 15 minutes Car Cuellar PA Work Phone: [facility] Comment on above: Acute pain of left k nee (Primary Dx); Arthritis of left knee; Knee instability, left Start: 02-18-2025 End: 02-18-2025 ambulatory CAR CUELLAR Not Available Start: 12-13-2024 End: 12-13-2024 ambulatory Evelyne Polk MD Facility: [facility] Start: 09-09-2024 End: 09-09-2024 ambulatory [facility] Start: 09-08-2024 End: 09-08-2024 ambulatory Rell ADAMSON Facility:[facility] Start: 09-08-2024 End: 09-08-2024 Patient encounter procedure Rell ADAMSON [facility] [place] Start: 08-30-2024 End: 08-30-2024 Bamboo flowsheet Car Cuellar PA Work Phone: [facility] Start: 08-30-2024 End: 08-30-2024 Bamboo flowsheet Car Cuellar PA Work Phone: [facility] Start: 08-30-2024 End: 08-30-2024 Postop follow up visit related to original px Car Arthur Cuellar PA Work Phone: [facility] Comment on above: S/P left knee arthro scopy (Primary Dx) Start: 08-30-2024 End: 08-30-2024 ambulatory CAR CUELLAR Not Available Start: 08-25-2024 End: 08-25-2024 ambulatory MD Avi Yepez Work Phone: [facility] Work Phone: Start: 08-25-2024 End: 08-25-2024 Departed Referred MD Avi Yepez Work Phone: [facility] Start: 08-25-2024 End: 08-25-2024 ambulatory Rell ADAMSON Facility:[id number] Start: 08-16-2024 End: 08-16-2024 Bamboo flowsheet Car Cuellar PA Work Phone: [facility] Start: 08-16-2024 End: 08-16-2024 Bamboo flowsheet Car Arthur Cuellar PA Work Phone: [facility] Start: 08-16-2024 End: 08-16-2024 Postop follow up visit related to original px Car Arthur Cuellar PA Work Phone: [facility] Comment on above: S/P left knee arthro scopy (Primary Dx) Start: 08-16-2024 End: 08-16-2024 ambulatory CAR CUELLAR Not Available Start: 07-28-2024 End: 07-28-2024 Refill Corona Peng [employer]SING [employer] PROFESSIONAL Work Phone: [facility] Comment on above: Post-op pain (Primar y Dx) Start: 07-20-2024 End: 07-20-2024 ambulatory Rell ADAMSON Facility:[facility] Start: 07-20-2024 End: 07-20-2024 [facility] Start: 07-19-2024 End: 07-19-2024 Bamboo flowsheet Maria E [place] PT [facility] Start: 07-19-2024 End: [...] ORTHO Start: 07-08-2024 End: 07-08-2024 Bamboo flowsheet aCr LUCIANO Work Phone: [facility] Start: 07-08-2024 End: 07-08-2024 Patient encounter procedure Car LUCIANO Work Phone: [facility] Comment on above: Preop examination (P rimary Dx); Internal derangement of left knee Start: 07-08-2024 End: 07-08-2024 Preprocedural examination done Car LUCIANO Work Phone: [facility] Start: 07-05-2024 ambulatory Rell ADAMSON Facility:[facility] Start: 06-21-2024 End: 06-21-2024 Office outpatient visit 25 minutes Elias Thomas DO Work Phone: [facility] Comment on above: Internal derangement of left knee (Primary Dx) Start: 06-11-2024 End: 06-11-2024 ambulatory STEVETamara [facility] Start: 06-09-2024 Non-patient / Non-visit MD Indra Yepez Work Phone: [facility] Work Phone: Start: 2023 End: 2023 ambulatory JUAN R LING Facility:[facility] Start: 2023 End: 2023 Office outpatient new 30 minutes Juan R Ling MD Work Phone: [facility] Comment on above: Meralgia paresthetic a of left side (Primary Dx); Chronic midline low back pain without sciatica Start: 08-01-2023 End: 08-01-2023 ambulatory Darren Elizabeth EXECUTIVE VICE PRESIDENT AND CHIEF FINANCIAL OFFICER.[employer]AYER Work Phone: [facility] Comment on above: Dr chong Cut me open Start: 07-01-2023 End: 07-01-2023 ambulatory NIKOLAY CAMP Facility:[facility] Start: 06-26-2023 Telephone encounter Nikolay Camp DO Work Phone: [facility] Comment on above: Preparations For Pro cedures (Pre-injection instructions) Start: 06-19-2023 Orders Only Nikolay Montgomery rafael DO Work Phone: Neurology Comment on above: Lumbar radiculopathy (Primary Dx); Displacement of lumbar intervertebral disc without myelopathy Start: 06-02-2023 End: 06-03-2023 ambulatory DARREN ELIZABETH Facility:[facility] Start: 06-02-2023 End: 06-02-2023 Patient encounter procedure Darren Elizabeth EXECUTIVE VICE PRESIDENT AND CHIEF FINANCIAL OFFICER.DOPE SPRAYER Work Phone: [facility] Comment on above: Radiculopathy, lumba r region (Primary Dx); Lumbar disc herniation Start: 05-13-2023 Office outpatient vi sit 25 minutes Avi Yepez Work Phone: [facility] 250 DO Work Phone: Start: 05-13-[address] Reilly Nelson II Facility: Start: 05-06-2023 Chart abstracting None (Historical) Neurology Start: 12-16-2022 Rx Renewal Avi Yepez Work Phone: [facility] 250 DO Work Phone: Start: 07-17-2022 End: 07-17-2022 Departed Referred MD Avi Yepez Work Phone: [facility] [address] 250 Start: 05-07-2022 Office outpatient vi sit 25 minutes Avi Yepez Work Phone: [facility] 250 DO Work Phone: Start: 01-03-[address] AVI YEPEZ Facility :H1 Start: 12-21-2021 Encounter for genera l adult medical examination without abnormal findings DR AVI YEPEZ [facility] Start: 12-20-2021 End: 12-21-[address] AVI YEPEZ Facility:H1 Start: 12-20-2021 End: 12-21-2021 Encounter for general adult medical examination without abnormal findings DR AVI YEPEZ Facility:H1 Start: 12-10-2021 Rx Renewal Reilly mcmahon MD Work Phone: [facility] 250 DO Work Phone: Procedures Date Procedure Procedure Detail Performing Clinician Start: 07-15-2025 Culture bacterial quanttative colony count urine Car LUCIANO Work Phone: Start: 07-15-2025 [facility] CMP (CMP) (FOR REMOTE [facility] USE) Donald LUCIANO Work Phone: Start: 07-15-2025 ECG 12-LEAD Car LUCIANO Work Phone: Start: 07-14-2025 Plain X-ray of bilateral tibia and bilateral fibula Avi Yepez MD Work Phone: Start: 07-14-2025 Plain X-ray of bilateral femurs Avi Yepez MD Work Phone: Start: 02-18-2025 Arthrocentesis aspir&/inj major jt/bursa w/o us Car LUCIANO Work Phone: Start: 08-25-2024 Colonoscopy Car LUCIANO Work Phone: Start: 08-25-2024 Colonoscopy Rell ADAMSON Start: 08-25-2024 Esophagogastroduodenoscopy Rell NILL Start: 07-09-2024 ALL CBC WITH AUTO DIFF Car Farris Work Phone: Start: 07-17-2022 Radiologic examination of knee MD Puja Yepez Work Phone: Start: 12-20-[address] AVI YEPEZ Comment on above: Performed By: #### PSASC #### [facility] [address] [place] [address] Dr. Conor Chan Start: 06-09-2020 Total colonoscopy Reilly Nelson MD Work Phone: Start: 07-02-2019 End: 07-02-2019 Colonoscopy Darren Elizabeth APRN.DOPE SPRAYER Work Phone: Cardiac catheterization Will renetta Nelson MD Work Phone: Cardiac catheterization Jorge huang NILL Cholecystectomy Reilly miranda MD Work Phone: Cholecystectomy Rell NILL Nasal septoplasty Rell MORALEZ Plan of Treatment Date Care Activity Detail Author Start: 08-25-2034 Screening for malign ant neoplasm of colon [facility] Start: 07-02-2029 Screening for malign ant neoplasm of colon [facility] Start: 12-20-2026 PROSTATE CANCER SCREENING DISCUSSION PROSTATE CANCER SCREENING DISCUSSION [facility] Start: 08-25-2025 End: 08-25-2025 Patient encounter procedure 08/25/2025 1:30 PM EDT Office Visit [facility] [address] [place] [address] Corona Peng, C[place]TON [address] [place] [address] [facility] Start: 08-05-2025 End: 08-05-2025 ambulatory 08/05/2025 1:30 PM EDT Evaluation [facility] [address] [place] [address] Tigist Mukherjee, PT [facility] [place] [facility] Start: 07-15-2025 Bacteria identified in Urine by Culture [facility] Start: 07-15-2025 Urine culture [facility] Start: 07-14-2025 End: 07-14-2026 aPTT in Blood by Coagulation assay APTT Lab Routine Arthritis of left knee Pre-op examination Expected: 07/14/2025, Expires: 07/14/2026 [facility] Work Phone: Comment on above: Expected: 07/14/2025 , Expires: 07/14/2026 Start: 07-14-2025 End: 07-14-2026 Bacteria identified in Urine by Culture Urine culture Microbiology Routine Arthritis of left knee Pre-op examination Expected: 07/14/2025 (Approximate), Expires: 07/14/2026 [facility] Comment on above: Expected: 07/14/2025 (Approximate), Expires: 07/14/2026 Start: 07-14-2025 End: 07-14-2026 CBC W Auto Differential panel - Blood CBC and differential Lab Routine Arthritis of left knee Pre-op examination Expected: 07/14/2025 (Approximate), Expires: 07/14/2026 [facility] Comment on above: Expected: 07/14/2025 (Approximate), Expires: 07/14/2026 Start: 07-14-2025 End: 07-14-2026 Comprehensive metabolic 2000 panel - Serum or Plasma Comprehensive metabolic panel Lab Routine Arthritis of left knee Pre-op examination Expected: 07/14/2025 (Approximate), Expires: 07/14/2026 [facility] Comment on above: Expected: 07/14/2025 (Approximate), Expires: 07/14/2026 Start: 07-14-2025 End: 07-14-2026 ECG 12 lead ECG 12 lead ECG Routine Arthritis of left knee Pre-op examination Expected: 07/14/2025 (Approximate), Expires: 07/14/2026 [facility] Comment on above: Expected: 07/14/2025 (Approximate), Expires: 07/14/2026 Start: 07-14-2025 End: 07-14-2026 Prothrombin time (PT) in Blood by Coagulation assay Protime-INR Lab Routine Arthritis of left knee Pre-op examination Expected: 07/14/2025 (Approximate), Expires: 07/14/2026 [facility] Comment on above: Expected: 07/14/2025 (Approximate), Expires: 07/14/2026 Start: 07-14-2025 End: 07-14-2026 Urinalysis complete panel - Urine Urinalysis with reflex microscopic Lab Routine Arthritis of left knee Pre-op examination Expected: 07/14/2025 (Approximate), Expires: 07/14/2026 [facility] Comment on above: Expected: 07/14/2025 (Approximate), Expires: 07/14/2026 Start: 07-14-2025 End: 07-14-2026 XR Femur and Tibia Views for leg length XR lower extremity leg length evaluation Imaging Routine Arthritis of left knee Pre-op examination Expected: 07/14/2025 (Approximate), Expires: 07/14/2026 [facility] Comment on above: Expected: 07/14/2025 (Approximate), Expires: 07/14/2026 Start: 07-14-2025 End: 07-14-2025 Patient encounter procedure [facility] Comment on above: Pre-op examination ( Primary Dx); Arthritis of left knee Start: 06-27-2025 Influenza vaccination Influenza Vacc ine (#1) [facility] Start: 06-17-2025 End: 06-17-2025 Patient encounter procedure [facility] Comment on above: Acute pain of left k nee (Primary Dx) Start: 04-20-2025 End: 04-20-2025 Patient encounter procedure 04/20/2025 8:30 AM EDT Office Visit [facility] [address] [place] [address] Jr. Elias Thomas DO [address] [place] [address] Arrived [facility] Comment on above: Arrived Start: 08-30-2024 End: 08-30-2024 Patient encounter procedure 08/30/2024 10:15 AM EST Office Visit [facility] [address] [place] [address] Car Cuellar, PA [address] [facility] [address] [place] [address] S/P left knee arthroscopy (Primary Dx) [facility] Comment on above: S/P left knee arthro scopy (Primary Dx) Start: 08-25-2024 [facility] Start: 08-16-2024 End: 08-16-2024 Patient encounter procedure 08/16/2024 10:00 AM EDT Office Visit [facility] [address] [place] [address] Car Cuellar, PA [address] [facility] [address] [place] [address] S/P left knee arthroscopy (Primary Dx) [facility] Comment on above: S/P left knee arthro scopy (Primary Dx) Start: 08-12-2024 End: 08-12-2024 Patient encounter procedure 08/12/2024 9:00 AM EDT Office Visit [facility] [address] [place] [address] Car Cuellar, PA [address] [facility] [address] [place] [address] [facility] Start: 07-29-2024 End: 07-29-2024 Patient encounter procedure 07/29/2024 10:45 AM EDT Procedure Visit [facility] Jr. Elias Thomas DO [address] [place] [address] [facility] Start: 07-19-2024 End: 07-19-2024 ambulatory [facility] Comment on above: Internal derangement of left knee Start: 07-08-2024 End: 07-08-2025 CBC W Auto Differential panel - Blood CBC and differential Lab Routine Preop examination Expected: 07/08/2024 (Approximate), Expires: 07/08/2025 [facility] Work Phone: Comment on above: Expected: 07/08/2024 (Approximate), Expires: 07/08/2025 Start: 07-08-2024 End: 07-08-2024 Patient encounter procedure 07/08/2024 10:00 AM EDT Office Visit [facility] [address] [place] [address] Car Cuellar PA [address] [place] [address] Preop examination (Primary Dx); Internal derangement of left knee [facility] Comment on above: Preop examination (P rimary Dx); Internal derangement of left knee Start: 06-27-2024 Influenza vaccination Influenza Vacc ine (#1) [facility] Start: 06-27-2023 Influenza vaccination [facility] Start: 05-13-2023 FUV, Provider: Reilly Nelson, Status: Jus, Time: 11:10 AM FUV, Provider: Reilly Nelson, Status: Jus, Time: 11:10 AM [facility] 250 DO Work Phone: Start: 10-27-2022 DEPRESSION ASSESSMENT DEPRESSION ASS ESSMENT [facility] Start: 05-17-2022 COVID-19 VACCINE (6 - Pfizer series) COVID-19 VACCINE (6 - Pfizer series) [facility] Start: 05-15-2022 FUV, Provider: Reilly Nelson, Status: Pen, Time: 2:00 PM FUV, Provider: Reilly Nelson, Status: Pen, Time: 2:00 PM -[facility] 250 DO Work Phone: Start: 07-02-2020 Colonoscopy COLONOSCOPY [facility] Start: 07-02-2020 COLORECTAL CANCER SCREENING COLORECTAL CANCER SCREENING [facility] Start: 2016 Prostate Cancer Screening Discussion Prostate Cancer Screening Discussion [facility] Start: 2011 SHINGRIX VACCINE (1 of 2) SHINGRIX VACCINE (1 of 2) [facility] Start: 2006 COLOGUARD (FIT-DNA) COLOGUARD (FIT-D NA) [facility] Start: [address] COLONOGRAPHY [facility] Start: 2006 DIABETES SCREEN DIABETES SCREEN [facility] Start: 2006 Diabetes Screening Diabetes Screenin g [facility] Start: 2006 FECAL OCCULT BLOOD FECAL OCCULT BLOO D [facility] Start: 2006 SIGMOIDOSCOPY SIGMOIDOSCOPY [facility] Start: 1996 Lipid 1996 panel - Serum or Plasma Lipid Screening [facility] Start: 1996 LIPID SCREEN LIPID SCREEN [facility] Start: 1980 Urine microalbumin profile [facility] Start: 1979 HEPATITIS C SCREENING HEPATITIS C SC REENING [facility] Start: 1979 HIV SCREENING HIV SCREENING [facility] Start: 1961 Screening for malign ant neoplasm of colon [facility] End: 09-02-2024 Radex spine lumbosacral minimum 4 views XR LUMBAR MOTION 4V AP/LAT/ FLEX/EXT Radiology Routine Meralgia paresthetica of left side 1 Occurrences starting 2023 until 09/02/2024 [facility] Work Phone: Comment on above: 1 Occurrences starti ng 2023 until 09/02/2024 SPINE INTERVENTION PROCEDURE SPINE INTERVENTION PROCEDURE Procedures Routine Radiculopathy, lumbar region Lumbar disc herniation Ordered: 06/02/2023 [facility] Work Phone: Comment on above: Ordered: 06/02/2023 [facility] Immunizations Immunization Date Immunization Notes Care Provider [facility] 09-03-2024 influenza virus vaccine, unspecified formulation Car Cuellar PA Work Phone: [facility] 09-12-2023 influenza virus vaccine, unspecified formulation Jr. Thomas DO Work Phone: [facility] 10-14-2022 Pfizer COVID-19 Vac Bivalent 30 MCG/0.3ML Intramuscular Suspension Avi M Hoy Work Phone: [facility] 10-03-2022 influenza, injectabl e, quadrivalent, preservative free Avi M Hoy Work Phone: [facility] 250 DO Work Phone: 10-03-2022 influenza virus vaccine, unspecified formulation Darren Elizabeth APRN.DOPE SPRAYER Work Phone: [facility] 03-22-2022 Comirnaty 30 MCG/0.3 ML Intramuscular Suspension Avi M Hoy Work Phone: [facility] 250 DO Work Phone: 03-22-2022 Moderna COVID-19 Vaccine 100 MCG/0.5ML Intramuscular Suspension Avi M Hoy Work Phone: [facility] Comment on above: Series: 03-22-2022 SARS-CoV-2 mRNA (qgknzsgejdl-dmro-dusiq se) vaccine Rell ADAMSON [facility] 03-22-2022 zoster vaccine recombinant [facility]vi M Hoy [facility] DO Work Phone: 09-03-2021 Pfizer-BioNTech COVID-19 Vacc 30 MCG/0.3ML Intramuscular Suspension Avi M Hoy Work Phone: [facility] 08-25-2021 influenza virus vaccine, unspecified formulation Rell ADAMSON [facility] 08-25-2021 influenza, injectabl e, quadrivalent, preservative free Avi Archery Work Phone: [facility] 250 DO Work Phone: 08-25-2021 zoster vaccine recombinant Avi M Hoy Work Phone: [facility] 250 DO Work Phone: 02-13-2021 Pfizer-BioNTech COVID-19 Vacc 30 MCG/0.3ML Intramuscular Suspension Avi M Hoy Work Phone: [facility] 01-20-2021 SARS-CoV-2 (COVID-19 ) mRNA BNT-162b2 vax Rell VALENCIAL [facility] 01-13-2021 Pfizer-BioNTech COVID-19 Vacc 30 MCG/0.3ML Intramuscular Suspension Avi M Hoy Work Phone: [facility] 12-23-2020 Pfizer-BioNTech COVID-19 Vacc 30 MCG/0.3ML Intramuscular Suspension Avi M Hoy Work Phone: [facility] 08-28-2020 influenza, injectabl e, quadrivalent, preservative free Avi Archery Work Phone: [facility] 250 DO Work Phone: 08-28-2020 influenza virus vaccine, unspecified formulation Juan R Ling MD Work Phone: [facility] Payers Date Payer Category Payer Self-pay [id number] 2021 Private Health Insurance [id number] 2007 Managed Care HMO (unspecified) [id number] 1961 Unknown [id number] 1961 Unknown [id number] [id number] 1961 Unknown [id number] [id number] 1961 Unknown [id number] [id number] 1961 Unknown [id number] [id number] 1961 Unknown [id number] [id number] 1961 Unknown [id number] [id number] 1961 Unknown [id number] 2.16.840.1.729893.3.579.2.196 1961 Unknown [id number] 2.16.840.1.465927.3.579.2.196 1961 Unknown [id number] 2.16.840.1.698945.3.579.2.125 9 1961 Unknown [id number] 2.16.840.1.117615.3.579.2.125 9 1961 Unknown [id number] 2.16.840.1.328876.3.579.2.125 9 1961 Unknown [id number] 2.16.840.1.462436.3.579.2.125 9 1961 Unknown [id number] 2.16.840.1.955759.3.579.2.125 9 1961 Unknown [id number] [id number] 9 1959 Private Health Insurance [id number] Self-pay [id number] Unknown Unknown [facility] [id number] Unknown [id number] [id number] Unknown [id number] [id number] Unknown [id number] Social History Date Type Detail Facility Start: 06-02-2023 End: 07-14-2025 Consumes alcohol Consumes alcohol [facility] Comment on above: socially; occasional; Start: 09-28-2020 End: 05-10-2024 Tobacco smoking status NHIS Never smoked tobacco (finding) [facility] Start: 1960 Sex Assigned At Male F [facility] Tobacco smoking stat [facility] Tobacco smoking consumption unknown [facility] Start: 1960 Sex Assigned At Not on file [facility] Start: 06-02-2023 End: 07-14-2025 Gender identity Not on file [facility] Start: 06-02-2023 End: 05-10-2024 Tobacco use and exposure Smokeless tobacco non-user [facility] National Score (1-10 0), lower number is lower risk 61 [facility] Start: 07-28-2023 Gender identity Identifies as male gender (finding) [facility] Start: 07-28-2023 Sexual orientation Heterosexual (fin ding) [facility] Start: 07-08-2024 End: 07-14-2025 Alcoholic beverage intake Current drinker of alcohol (finding) [facility] Start: 05-10-2024 Alcohol Comment 1/WK [facility] Sex Male (finding) [facility] Functional Status Date Assessment Result Facility 09-08-2024 Functional Status N/A [facility] [place] 07-20-2024 Functional Status N/A [facility] [place] Clinical Notes 05-06-2023 to 07-14-2025 Car Cuellar, ANKITA - 07/14/2025 9:00 AM EDTJr. Elias Thomas DO - 04/20/2025 8:30 AM ANKITA Burgos - [...] total knee arthroplasty August 11 @ [facility]. PAST MEDICAL HISTORY: Past Medical History: Diagnosis [...] (NEURONTIN) 300 mg, 2 times daily HYDROcodone-acetaminophen (Seaford) 5-325 MG tablet No dose, route, or frequency recorded. Iron Polysacch [id number] (Poly-Iron 150 Forte) 150-0.025-1 MG capsule 1 [...] Gluconate (Hibiclens) 4 % solution Iron Polysacch [id number] (Poly-Iron 150 Forte) 150-0.025-1 MG capsule CANCELED: [...] August 25 2 1:30 with Corona in [place] . documented in this encounter [facility] 04-20-2025 History of Present illness Narrative Images [...] in this patient''s case because of the hqzy-ju-lxhg articulation of the patient's knee.. Questions answered in laymen terms at the bedside. The diagnosis, home exercise plan and any ongoing restrictions/ recommendations reviewed. If unable to be reached in office, I recommend evaluation at nearest Emergency Room if any symptoms worsened or new symptoms develop for requiring urgent evaluation. Visit was preformed using [employer]-ch[employer] raiser speech recognition. documented in this encounter [facility] 03-04-2025 Note IN Cardiology - [facility] Subjective Kim Nichols is a [...] and he had carotid stenosis, sister had AL, mother had brain aneurysm ROS All systems [...] twice a day., Disp: , Rfl: HYDROcodone-acetaminophen (Seaford) 5-325 mg tablet, Take 1 tablet by [...] and symmetric in (more content not included)... [facility] 02-18-2025 History of Present illness Narrative [...] Current pain management routine includes taking 2 Seaford before activity, which is not recommended. Discussed [...] requiring urgent evaluation. Visit was preformed using [employer] speech recognition. documented in this encounter [facility] 09-09-2024 Note Cardiology Clinic No te Chief [...] as needed Richard Benitez MD Interventional Cardiology [facility] 08-30-2024 History of Present illness Narrative [...] requiring urgent evaluation. documented in this encounter [facility] 08-16-2024 History of Present illness Narrative Images [...] requiring urgent evaluation. documented in this encounter [facility] 08-16-2024 Instructions ANKITA Stapleton - 08/16/2024 10:00 [...] than 10 mins documented in this encounter [facility] 07-28-2024 Telephone encounter Note Post op pain rx. PDMP reviewed [facility] 07-28-2024 Miscellaneous Notes Post op pain rx. PDMP reviewed documented in this encounter [facility] 07-20-2024 Note General Surgery Offi ce/Clinic Note [...] tab(s), Oral, Ivy (more content not included)... [facility] Comment on above: Result Comment: Elec tronically Signed By: SNOW LANDA, Rell Mccormick\Date and Time Signed: 07/20/24 14:20 EDT 07-19-2024 History of Present illness Narrative Physical Therapy Physical Therapy Evaluation Visit Patient Name: Kim Nichlos Today's Date: 07/19/2024 Encounter Diagnoses Name Primary? [...] sign below. Date: documented in this encounter [facility] 07-08-2024 History of Present illness Narrative Images [...] Consult and Treat Referred to Provider: Tasha Davis PT Requested Specialty: Physical Therapy Number of [...] MONTEZ INSTRUCTIONS GIVEN TODAY 9/12 @10AM - [place] CARDIAC CLEARANCE ; OBTAINED - ELIQUIS PROTOCOL PT REFERRAL SENT ; [facility] TRAIN [facility] DISPENSE NPAR ([id number], [id number]) Follow up for 08/12 @9AM W/AMANDA IN [place]. documented in this encounter [facility] 06-21-2024 History of Present illness Narrative Images from the original note were not included. HISTORY OF PRESENT ILLNESS: EST PT Kim Nichols is an 63 y.o. @ male. EST PT RECHECK LT KNEE PAIN - POSSIBLY DISCUSS SURGERY- PT WAS GETTING A CARDIAC WORK UP- PT DID SEE DR BENITEZ (RESEARCH PROFESSOR OF BIOSTATISTICS) 06/11/24; PT STATES HE IS CLEARED (OFFICE NOT IS UNDER ENCOUNTER) PT STATES HE WAS ADMITTED TO [facility] FOR A-FIB X 1DAY ~05/17/24 XRAY LT KNEE [facility] 05/10/24 XRAY LT KNEE [facility] 03/12/24 MRI LT KNEE [facility] 04/28/24 CORTISONE INJ 03/2024; TEMP RELIEF [...] Use: Low Risk (06/11/2024) Received from [facility] Patient History Smoking Tobacco Use: Never Smokeless [...] states that he was cleared per his certified novell administrator ; we will need to obtain clearance [...] Elias Thomas D.O. documented in this encounter [facility] 06-11-2024 Note Cardiology Clinic No te Chief [...] without additional cardiac (more content not included)... [facility] 2023 Note HNO ID: [id number] Author: Juan R Ling MD Service: ? [...] issues. 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 [facility] 2023 Note HNO ID: [id number] Author: Bossman Saunders Service: ? Author Type: [...] opioids Medications: See medication reconciliation list in [facility] MEDICATIONS: Gabapentin, Seaford, Tylenol Have you ever seen a pain [...] completing routine daily living activities? No Bossman [facility] 2023 History of Present illness Narrative [...] issues. 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 Author Type: Nurse Practitioner Type: Progress Notes Filed: 08/01/2023 1:30 PM Note Text: SPINE SURGERY ESTABLISHED VISIT This is a virtual visit using [employer] Zoom Video Visit. It required patient-provider interaction for the medical decision making as documented below. DATE OF SERVICE: 08/01/2023 DATE OF LAST VISIT: 06/02/2023 SUBJECTIVE: HPI:Kim Nichols is a 62 year old male presenting via virtual vist s/p Left L5 transforaminal epidural steroid injection on 07/01/[address] Camp. [place] great initially and for the first few days after injection, symptoms returned shortly after. Patient has increased his Gabapentin 300 mg from BID to TID and is feeling good today. 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 Patient notified that [facility] will call patient the night before with the time to arrive for injection. Patient verbalized understanding of the following: -Provided education on spine procedure and answered questions related to spine injection procedure. -Lvn Lpn is needed to drive patient home. -NPO [...] to report. Diabetic: No Patient given number [phone], spine injections schedulers, if there is any need to reschedule/ change appointment during normal business hours. Active [employer] users were informed to read MyChart procedure [...] INSTRUCTIONS documented in this encounter [facility] 06-02-2023 Note HNO ID: [id number] Author: Darren Elizabeth APRN.DOPE SPRAYER Service: ? Author Type: Nurse Practitioner Type: [...] with him pain. He also is prescribed Seaford for breakthrough pain which he only takes [...] with him pain. He also is prescribed Seaford for breakthrough pain which he only takes [...] which included preparing to see the patient, [id number] patient care, completing clinical documentation, obtaining and/or reviewing separately obtained history, performing a medically appropriate examination, counseling and educating the patient/family/caregiver, independently interpreting results (not separately reported), and communicating results to the patient/family/caregiver. SIGNATURE: Darren Elizabeth APRN.CNP PATIENT NAME: Kim Nichols DATE: June 02, 2023 TIME: 1:57 PM PAGER: documented in this encounter [facility] 05-14-2023 Note HNO ID: [id number] Author: Ember Delatorre PA-C Service: ? Author Type: Physician Arterial Embalmer Type: Progress Notes Filed: 05/14/2023 4:17 PM Note Text: Per Triage: Kim Nichols is a 62 year old male that requests evaluation of lumbar spine. Per review, they have symptoms of back and LLE pain. Positive for numbness. CMT: Medication: Gabapentin, Tylenol, Seaford Studies (Reports unless indicated) MRI Lumbar: L4/5 [...] Positive for numbness. CMT: Medication: Gabapentin, Tylenol, Seaford Studies (Reports unless indicated) MRI Lumbar: L4/5 [...] Health Provider or Pain Management Provider at [facility]? No If answer is YES [...] the MRI/CT/myelogram was completed: [facility] [address] [place] [address] MRI/CT/myelogram viewable in Epic: No If not, please provide [phone] to fax in imaging reports for review. [...] Hydrocodone documented in this encounter [facility] 05-06-2023 Note HNO ID: [id number] Author: Mauricio Kelley Service: ? Author Type: ? Type: Progress Notes Filed: 05/14/2023 4:17 PM Note Text: Patient name: Kim Nichols Are you being referred by a [place] for Spine Health Provider or Pain Management Provider at [facility]? No If answer is YES [...] facility where the MRI/CT/myelogram was completed: The [facility] [address] [place] [address] MRI/CT/myelogram viewable in Epic: No If not, please provide [phone] to fax in imaging reports for review. [...] available for this section [facility] [place] Evaluation note No assessment inform ation available [facility] Work Phone: Evaluation note Diagnosis Radiculopathy, lumbar region- Primary Thoracic or lumbosacral neuritis or radiculitis, unspecified Lumbar disc herniation Displacement of lumbar intervertebral disc without myelopathy [facility] Lumbar radiculopathy- Primary Thoracic or lumbosacral neuritis or radiculitis, unspecified Displacement of lumbar intervertebral disc without myelopathy [facility] Diagnosis Meralgia paresthetica of left side- Primary Meralgia paresthetica Chronic midline low back pain without sciatica [facility] Diagnosis Post-op pain- Primary Other acute postoperative pain documented in this encounter [facility]* Diagnosis S/P left knee arthroscopy- Primary documented in this encounter [facility]* Diagnosis S/P left knee arthroscopy- Primary documented in this encounter [facility]* Diagnosis Preop examination- Primary Unspecified pre-operative examination Internal derangement of left knee documented in this encounter [facility]* Diagnosis Internal derangement of left knee- Primary documented in this encounter [facility]* Diagnosis Internal derangement of left knee- Primary Need for crutch training documented in this encounter [facility]* Diagnosis Acute pain of left knee- Primary Arthritis of left knee Knee instability, left documented in this encounter [facility]* Diagnosis Acute pain of left knee- Primary Arthritis of left knee [facility] Diagnosis Pre-op examination- Primary Arthritis [...] to their favorable impact on blood pressure andcholesterol.[facility] 250 DO Work Phone: History [...] to call if they arise or occur. [facility] Work Phone: History of Present illness [...] to call if they arise or occur. [facility] 250 DO Work Phone: Hospital Discharge instructions No data available for this section [facility] General Surgery [facility] Progress note No data available for this section [facility] Reason for referral (narrative)* Diagnostic Procedure Only (Routine) - Pending Review Specialty Diagnoses / Procedures Referred By Erlinda mao Referred To Contact XR IMAGING Diagnoses Meralgia paresthetica of left side Procedures XR LUMBAR MOTION 4V AP/LAT/ FLEX/EXT RADEX SPINE LUMBOSACRAL MINIMUM 4 VIEWS Juan R Ling MD [address] [place] [address] [place] [address] Referral ID Status Reason Start Date Expiration Date Visits Requested Visits Authorized [id number] Pending Review Auto-Generat ed Referral 2023 09/02/2024 1 1 [facility] for referral (narrative)* Consultation (Routine) - Pending Review Specialty Diagnoses / Procedures Referred By Erlinda mao Referred To Contact Physical Therapy Diagnoses Internal derangement of left knee Procedures [place] OFFICE/OUTPATIENT NEW HIGH MDM 60 MINUTES Car Cuellar PA [address] [place] [address] [facility] [address] [place] [address] Referral ID Status Reason Start Date Expiration Date Visits Requested Visits Authorized [id number] Pending Review Consult and Treat 07/01/2024 12/28/2024 1 [facility]No reason for referral [facility] Work [facility]: Summary Purpose Family History No Family History [...] Chief Complaint Unknown Chief Complaint Admit Date M105.07 [id number] July 14, 2025 9:39am Chief Complaint Admit Date [id number] July 14, 2025 9:39am Unknown July 15, 2025 1:50pm Additional Source Comments (unrecognized sect ion and content) No Status Records FoundNo Status Records FoundNo Status Records FoundNo Status Records FoundNo Status Records FoundNo Status Records FoundNo Status Records FoundNo Status Records FoundNo Status Records FoundNo Status Records Found INFORMATION SOURCE (unrecogn ized section and content) DATE CREATED AUTHOR 01/05/2022 [facility] DATE CREATED AUTHOR AUTHOR'S ORGANIZ ATION 05/14/2023 [facility] DATE CREATED AUTHOR AUTHOR'S ORGANIZ ATION 05/14/2023 [facility] DATE CREATED AUTHOR AUTHOR'S ORGANIZ ATION 2023 [facility] DATE CREATED AUTHOR AUTHOR'S ORGANIZ ATION [facility]/05/2023 [facility] DATE CREATED AUTHOR AUTHOR'S ORGANIZ ATION 09/10/2024 [facility] DATE CREATED AUTHOR AUTHOR'S ORGANIZ ATION 03/06/2025 [facility] DATE CREATED AUTHOR AUTHOR'S ORGANIZ ATION 07/10/2025 [facility] DATE CREATED AUTHOR AUTHOR'S ORGANIZ ATION 07/15/2025 [facility] EPIC DATE CREATED AUTHOR AUTHOR'S ORGANIZ ATION 07/17/2025 [facility] Care Teams (unrecognized sec tion and content) [...] End: August 25, 2024 Rell Adamson MD [facility] Attending Provider Active Start: August 25, 2024 End: August 25, 2024 Team Status: Inactive Member Role Status Dates Avi Yepez MD Primary Care Provider Active Bijan Betts Jr, DO Attending Provider Active Teaseler Relationship Specialty Start Date End Date Avi Yepez MD [address] [facility] [place] [address] Referring Family Medicine 04/24/23 Teaseler Relationship Specialty Start Date End Date Avi Yepez MD [address] [facility] [place] [address] Referring Family Medicine 04/24/23 Teaseler Relationship Specialty Start Date End Date Avi Yepez MD [address] [facility] [place] [address] Referring Family Medicine 04/24/23 Teaseler Relationship Specialty Start Date End Date Avi Ypeez MD [address] [facility] [place] [address] PCP - General Family Medicine 06/25/23 Avi Yepez MD [address] [facility] [place] [address] Referring Family Medicine 04/24/23 Teaseler Relationship Specialty Start Date End Date Avi Yepez MD [address] [facility] [place] [address] PCP - General Family Medicine 06/25/23 Avi Yepez MD [address] [facility] [place] [address] Referring Family Medicine 04/24/23 Teaseler Relationship Specialty Start Date End Date Avi Yepez MD [address] [facility] [place] [address] PCP - General Family Medicine 06/25/23 Avi Yepez MD [address] [facility] [place] [address] Referring Family Medicine 04/24/23 Teaseler Relationship Specialty Start Date End Date Avi Yepez MD [address] [place] [facility] [address] PCP - General 05/05/24 Teaseler Relationship Specialty Start Date End Date Avi Yepez MD [address] [place] [facility] [address] PCP - General 05/05/24 Teaseler Relationship Specialty Start Date End Date Avi Yepez MD [address] [place] [facility] [address] PCP - General 05/05/24 Teaseler Relationship Specialty Start Date End Date Avi Yepez MD [address] [place] [facility] [address] PCP - General 05/05/24 Teaseler Relationship Specialty Start Date End Date Avi Yepez MD [address] [place] [facility] [address] PCP - General 05/05/24 Teaseler Relationship Specialty Start Date End Date Avi Yepez MD [address] [place] [facility] [address] PCP - General 05/05/24 Teaseler Relationship Specialty Start Date End Date Avi Yepez MD [address] [place] [facility] [address] PCP - General 05/05/24 Teaseler Relationship Specialty Start Date End Date Avi Yepez MD [address] [facility], [facility] PCP - General 05/05/24 Teaseler Relationship Specialty Start Date End Date Avi Yepez MD [address] [facility], [facility] PCP - General 05/05/24 Teaseler Relationship Specialty Start Date End Date Avi Yepez MD [address] [facility], [facility] PCP - General 05/05/24 Teaseler Relationship Specialty Start Date End Date Avi Yepez MD PCP - General 05/05/24 Teaseler Relationship Specialty Start Date End Date Avi Yepez MD PCP - General 05/05/24 Teaseler Relationship Specialty Start Date End Date Avi Yepez MD [address] [place] [facility] [address] PCP - General Family Medicine 06/17/25 Teaseler Relationship Specialty Start Date End Date Avi Yepez MD [address] [place] [address] PCP - General Family Medicine 06/17/25 Teaseler Relationship Specialty Start Date End Date Avi Yepez MD [address] [place] [address] PCP - General Family Medicine 06/17/25 Team Status: Inactive Member Role Status Dates Car Cuellar PA-C Attending Provider Active Start: July 15, 2025 End: July 15, 2025 Teaseler Relationship Specialty Start Date End Date Avi Yepez MD [address] [place] [address] PCP - General Family Medicine 06/17/25 Goals (unrecognized section and content) Goals may be documented in a n alternate section No data available for this sectionGoals may be documented in an alternate section No data available for this sectionGoals may be documented in an alternate sectionGoals may be documented in an alternate section Source Comments (unrecognize d section and content) In the event this informatio n is protected by the Federal Confidentiality of Alcohol and Drug Abuse Patient Records regulations: The Federal rules restrict any use of the information to criminally investigate or prosecute any alcohol or drug abuse patient.[facility] the event this information is protected by the Federal Confidentiality of Alcohol and Drug Abuse Patient Records regulations: The Federal rules restrict any use of the information to criminally investigate or prosecute any alcohol or drug abuse patient.[facility] the event this information is protected by the Federal Confidentiality of Alcohol and Drug Abuse Patient Records regulations: The Federal rules restrict any use of the information to criminally investigate or prosecute any alcohol or drug abuse patient.[facility] the event this information is protected by the Federal Confidentiality of Alcohol and Drug Abuse Patient Records regulations: The Federal rules restrict any use of the information to criminally investigate or prosecute any alcohol or drug abuse patient.[facility] the event this information is protected by the Federal Confidentiality of Alcohol and Drug Abuse Patient Records regulations: The Federal rules restrict any use of the information to criminally investigate or prosecute any alcohol or drug abuse patient.[facility] the event this information is protected by the Federal Confidentiality of Alcohol and Drug Abuse Patient Records regulations: The Federal rules restrict any use of the information to criminally investigate or prosecute any alcohol or drug abuse patient.[facility] Reason for Visit (unrecogniz ed section [...] NEW HIGH MDM 60 MINUTES Car Cuellar, PA [address] [facility] [address] [place] [address] Maria E Peck, EFRA Referral ID Status Reason Start Date Expiration Date Visits Requested Visits Authorized [id number] Authorized Consult and Treat 07/01/2024 12/28/2024 60 [...] BE BASED ON THE PRIMARY CLINICAL RECORDS. [employer] [facility] provides no warranty or guarantee of the accuracy or completeness of information in this document.
[2025-07-29] MEDS: REGADENOSON 0.4 MG/5 ML SYRINGE IV (08:44)
--- NOTE | 2025-08-01 09:05 | P.STRESS_ITS ---
Stress Test Stress Test Allergies Allergy/AdvReac Type Severity Reaction Status Date / Time amoxicillin Allergy Intermediate Rash Verified 08/01/25 08:26 thiopental (From Pentothal) Allergy delayed Verified 08/01/25 08:26 emergence Requesting physician: Jason Cervantes Procedure: This was a Lexiscan stress test with myocardial perfusion imaging performed at the [facility] on 07/29/2025. Intravenous line was secured. The patient was attached to electrocardiographic monitoring. Baseline vital signs and ECG were obtained. Lexiscan 0.4 mg was administered intravenously followed by administration of Cardiolite. The patient then went on to obtain myocardial perfusion imaging. Resting heart rate was 67 bpm and peak heart rate was 90 bpm. Resting blood pressure was 141/77 and peak blood pressure was 147/88. General Information: Reason for Stress Test: Protocol completed. Cardiac History and Risk Factors: Hypertension, hyperlipidemia. Resting 12 - Lead Electrocardiogram: Normal sinus rhythm. Stress Test: Protocol: Pharmacologic stress with Lexiscan. Exercise Capacity: Not assessed. Blood Pressure Response: Resting hypertension. Rhythm: Sinus rhythm with no arrhythmias. ST - Response: No ischemic ST changes. Patient Response: No symptoms. Interpretation: 1. Negative stress test for Lexiscan induced ischemic ECG changes. 2. Myocardial perfusion images will be reported separately.
== END 2025-07-29 07:57 | disposition home or self-care (01) ==
LOC: CARD 07:56
PROVIDERS: PCP Family Medicine; Visit Provider Family Medicine
DX: R07.9 Chest pain, unspecified (principal)
CPT/HCPCS: 93017; J2785

== ENCOUNTER 2025-07-29 07:57 | Outpatient (OUT) | payer OTHER, SELFPAY ==
--- OUTSIDE RECORDS SUMMARY | 2021-01-13 07:00 | XMS_ITS | Continuity of Care Document ---
Author Organization [facility] Address [address] [place] [address] Phone Care Team Providers Care Zoo Keeper Name Role Phone Severiano Martin Unavailable Unavailable Procedures Procedure Date Pfizer COVID Vaccine Admin Dose 2 COVID-19 Pfizer Pfizer COVID Vaccine Admin Dose 1 COVID-19 Pfizer Advance Directives Directive Yes / No Effective Date File Name No Information Encounters Encounter Description Practice Location Reason(s) For Visit Diagnoses Date Provider Providers Copied on Encounter [facility], [address] [place], [place], [id number], [place] tel:[phone] COVID ECHD No Information Radha Man. [address] [place], [place], [id number], [place]. tel:[phone] [facility], [address] [place] [address], [id number], tel:[phone] COVID ECHD No Information Radha Man. [address] [place], [place], [id number], [place]. tel:[phone] Family History Family Member Type Diagnosis Age At Onset No Information Immunizations Vaccine Date Status Comments Pfizer COVID administered Source: New Imm unization Record Pfizer COVID administered Source: New Imm unization Record Payers Payer name Insurance type Covered democrat ID Authoriza tion(s) Aetna CI [id number] Aetna CI [id number] Aetna CI [id number] Social History Type Description Quantity Date Captured [...]
--- OUTSIDE RECORDS SUMMARY | 2025-07-29 08:01 | XMS_ITS | CCD ---
Author Organization [facility] Care Team Providers Care Foreign Correspondent Name Role Phone Unavailable Unavailable DR AVI [...] Provider Avi Yepez MD Primary Care Provider [phone] Jam LANDA, Evelyne Bradley Attending Unavailable Jam LANDA, Evelyne Bradley Attending Unavailable Jam LANDA, Evelyne Bradley Attending Unavailable Avi Yepez MD Primary Care Provider [phone] Car Cuellar PA-C Attending Provider [phone] CAR CUELLAR Attending Unavailable JR. THOMAS GEORGE [...] Translations: [amoxicillin] Drug Allergy 0 [facility] (1 source) Amoxicillin Drug Allergy [facility] (1 source) traMADol Drug Allergy [facility] (3 sources) Penicillin; Translations: [penicillin] Drug Allergy Weal (disorder) [facility] General Surgery [place] (20 sources) traMADol; Translations: [TRAMADOL] Drug Allergy 4 Unknown [facility] (1 source) Amoxicillin Drug Allergy 0 [facility] Repository Medications Current Medications Medication Drug Class(es) Dates Sig (Normalized) Sig (Original) acetaminophen 325 mg / HYDROcodone bitartrate 5 mg oral tablet (20 sources) Opioid Agonist Start: 07-08-2024 take 1 tablet by mouth twice daily as needed for pain Portis 325 mg-5 mg oral tablet 1 tab(s), Oral, BID as needed for pain, Refill(s) 0 Start Date: 07/08/24 Status: Ordered Start: 03-29-2024 End: 06-21-2024 take 1 tablet by mouth every twelve hours HYDROcodone-acetaminophen (Portis) 5-325 MG tablet Take 1 tablet by mouth every 12 (twelve) hours 03/29/2024 06/21/2024 Discontinued (Therapy completed) Start: 09-26-2020 End: 07-31-2024 take 1 tablet by mouth every six hours as needed for headache HYDROcodone-acet aminophen (Portis) 5-325 MG tablet Active Portis 5-325 MG T ABS TAKE 1 TABLET [...] tablet by mouth once daily Iron Polysacch Bcjrw-V79-NA (Poly-Iron 150 Forte) 150-0.025-1 MG capsule Indications: [...] [Coronary atherosclerosis of unspecified type of vessel, [place] or graft] Onset: 03-04-2025 07-08-2024 Chronic Diabetes [...] [Mass/Vol] 3.9 g/dL 3.4 - 5.0 g/dL [facility] ALBUMIN GLOBULIN RATIO 1 [facility] ALP [Catalytic activity/Vol] 63 U/L 46 - 116 U/L [facility] ALT [Catalytic activity/Vol] 33 U/L 16 - 63 U/L [facility] Anion gap [Moles/Vol] 10.6 mmol/L [facility] AST [Catalytic activity/Vol] 21 U/L 15 - 37 U/L [facility] Bilirubin [Mass/Vol] 1.1 mg/dL High 0.2 - 1.0 mg/dL [facility] Calcium [Mass/Vol] 9.4 mg/dL 8.5 - 10. 1 mg/dL [facility] Chloride [Moles/Vol] 103 mmol/L 98 - 107 mmol/L [facility] CO2 [Moles/Vol] 30 mmol/L 21.0 - 32.0 mmol/L [facility] Creatinine [Mass/Vol] 1.16 mg/dL 0.70 - 1.30 mg/dL [facility] GFR/1.73 sq M.predicted CKD-EPI (S/P/Bld) [Vol rate/Area] >60 >=60 mL/min/1.73 m 2 [facility] Globulin (S) [Mass/Vol] 4.1 g/dL [facility] Glucose [Mass/Vol] 116 mg/dL High 74 - 106 mg/dL [facility] Interpretation and review of laboratory results Abnormal [facility] Potassium [Moles/Vol] 3.6 mmol/L 3.5 - 5.1 mmol/L [facility] Protein [Mass/Vol] 8 g/dL 6.4 - 8.2 g/dL [facility] Sodium [Moles/Vol] 140 mmol/L 136 - 145 mmol/L [facility] TBH EGFR-NON AF [place] >60 >=60 mL/min/1.73 m 2 [facility] Urea nitrogen [Mass/Vol] 14 mg/dL 7.0 - 18.0 mg/dL [facility] Urea nitrogen/Creatinin e [Mass ratio] 12.1 mg/mg [facility] ECG 12-LEADon 07-15-2025 [place] [address] Electrocardiograph Report Signed Patient: KIM NICHOLS MR#: [id number] : 1960 Acct:[id number] Age/Sex: 64 / M ADM Date: 07/15/25 Loc: LAB Attending Dr: Car LUCIANO Ordering Physician: Car Cuellar Date of Service: 07/15/25 Procedure(s): ECG 12 lead Accession Number(s): [id number] cc: [facility] Test Date: 2025-07-15 Pat Name: KIM NICHOLS Department: Room: - Gender: Male Anesthesiologist Assistant: : 1960 Requested By: AVI YEPEZ Order Number: [id number] Reading MD: ELIAS ANN M.D. Measurements Intervals [place] Rate: 71 P: 18 [place]: 165 QRS: -12 QRSD: 87 T: 19 QT: 374 QTc: 407 Interpretive Statements SINUS RHYTHM LOW QRS VOLTAGE IN PRECORDIAL LEADS [QRS DEFLECTION < 1.0 mV IN CHEST LEADS] Abnormal ECG Compared to ECG 05/07/2024 12:44:31 No significant changes Electronically Signed On 07-15-2025 20:02:29 EDT by ELIAS ANN M.D. Dictated By: ELIAS ANN Signed By: 07/15/25200107/15/252001 DD/ 1057 TD/TT: Utility Technician: [facility] Radiology, Radiologi MD car[place] - 07/15/2025 [place] [address] Electrocardiograph Report Signed Patient: KIM NICHOLS MR#: [id number] : 1960 Acct:[id number] Age/Sex: 64 / M ADM Date: 07/15/25 Loc: LAB Attending Dr: Car LUCIANO Ordering Physician: Car Cuellar Date of Service: 07/15/25 Procedure(s): ECG 12 lead Accession Number(s): [id number] cc: [facility] Test Date: 2025-07-15 Pat Name: KIM NICHOLS Department: Room: - Gender: Male Anesthesiologist Assistant: : 1960 Requested By: AVI YEPEZ Order Number: [id number] Reading MD: ELIAS ANN M.D. Measurements Intervals [place] Rate: 71 P: 18 [place]: 165 QRS: -12 QRSD: 87 T: 19 QT: 374 QTc: 407 Interpretive Statements SINUS RHYTHM LOW QRS VOLTAGE IN PRECORDIAL LEADS [QRS DEFLECTION < 1.0 mV IN CHEST LEADS] Abnormal ECG Compared to ECG 05/07/2024 12:44:31 No significant changes Electronically Signed On 07-15-2025 20:02:29 EDT by ELIAS ANN M.D. Dictated By: ELIAS ANN Signed By: 07/15/25200107/15/252001 DD/ 105 TD/TT: Utility Technician: [facility] Radiology Study observation (narrative) [facility] ECG 12-LEADOrdered By: [facility] on 07-15-2025 [facility] Work Phone: Urine Cultureon 07-15-2025 Bacteria identified Cx Nom (U) No Growth 2 Days PERFORMED BY: [place] [id number] PATHOLOGIST COIN TELLER DOLORES RODRÍGUEZ M.D. Normal [facility] Comment on above: Performed By: #### C UU #### [address] X-ray reportOrdered By: Ángel Huerta on 07-14-2025 Study report [facility] Main [place] [address] [place] [address] XRay Report Signed Patient: Kim Nichols MR#: [id number] : 1960 Acct:[id number] Age/Sex: 64 / M ADM Date: 5 Loc: XDS Room: Type: [facility] Attending Dr: Car Cuellar PA-C Copies to: Car Cuellar PA-C~ Ordering Provider: Car Cuellar PA-C Date of Service: 07/14/25 XR/XR femur BI: PRE OP ([id number]) XR/XR tibia/fibula BI: PRE OP History: Preop assessment for left total knee arthroplasty. Plain film imaging of the femurs. Adequate alignment. No acute displaced fracture. The right greater trochanter out of the field of view. No significant hip degeneration. Extensive left knee medial loha-kd-bqtz contact degeneration. Unremarkable right knee. Plain film imaging of the tibia and fibula bilaterally. No acute displaced fracture. Adequate ankle joints. XR/XR tibia/fibula BI IMPRESSION: Extensive left and medial brpt-ku-jbtw contact the degeneration. Unremarkable hips. Unremarkable ankles. Impression dictated by: Tom Huerta M.D. 07/14/2025 4:10 PM Dictation Location: [facility]-16 Transcribed By: [facility] 07/14/25 1610 Dictated By: Tom Huerta DO 07/14/25 1608 Signed By: 07/14/25 1610 [facility] XR femur BIon 07-14-2025 XR femur BI [facility] Main [address] [address] XRay Report Signed Patient: Kim Nichols MR#: [id number] : 1960 Acct:[id number] Age/Sex: 64 / M ADM Date: 07/14/25 Loc: XDS Room: Type: [facility] Attending Dr: Car Cuellar PA-C Copies to: Car Cuellar PA-C Ordering Provider: Car Cuellar PA-C Date of Service: 07/14/25 XR/XR femur BI: PRE OP ([id number]) XR/XR tibia/fibula BI: PRE OP History: Preop assessment for left total knee arthroplasty. Plain film imaging of the femurs. Adequate alignment. No acute displaced fracture. The right greater trochanter out of the field of view. No significant hip degeneration. Extensive left knee medial ehtc-pt-cxzu contact degeneration. Unremarkable right knee. Plain film imaging of the tibia and fibula bilaterally. No acute displaced fracture. Adequate ankle joints. XR/XR tibia/fibula BI IMPRESSION: Extensive left and medial optw-wj-bjts contact the degeneration. Unremarkable hips. Unremarkable ankles. Impression dictated by: Tom Huerta M.D. 07/14/2025 4:10 PM Dictation Location: [place] [address] Transcribed By: [facility] 07/14/25 1610 Dictated By: Tom Huerta DO 07/14/25 1608 Signed By: 07/14/25 1610 Normal [facility] Office Visiton 03-04-2025 Follow-up visit [id number] Kim Nichols 1960 M Date Provider Department Center 03/04/2025 [id number] Family History Problem Relation Age of Onset Brain Aneurysm Mother Stroke Father Heart attack Sister Family Status - Relation Status Age at Mother Father Sister Level of Service:[address] [place] OFFICE/OUTPATIENT ESTABLISHED LOW MDM 20 MIN Reason for Visit and Comments: Coronary Artery Disease [187] - Denies SOB. Atrial Fibrillation [80] - On Eliquis, denies bleeding. Denies palpitations and syncope. Hyperlipidemia [182] - Had lipid panel in May 2024. On rosuvastatin. Hypertension [414774] Chest Pain [652415] - Intermittent, blames his hiatal hernia and back pain. Normal [facility] No Panel Informationon 02-18 ANKITA [place]ap[place] [...] and draped in the usual sterile fashion. [facility] Office Visiton 09-09-2024 Follow-up visit [id number] Kim Nichols 1960 M Date Provider Department Center 09/09/2024 3848-RICHARD BENITEZ [facility] Family History Problem Relation Age of Onset Brain Aneurysm Mother Stroke Father Heart attack Sister Family Status - Relation Status Age at Mother Father Sister Level of Service:[address]31 [place] OFFICE/OUTPATIENT ESTABLISHED LOW MDM 20 MIN Normal [facility] Ambulatory Visit Summaryon 1 11-08-2023 Ambulatory Visit Summary Ambulatory Visit Summary KIM NICHOLS :1960 Visit Date:09/08/2024 Ambulatory Visit Instructions Your Care Team Attending Physician - SNOW LANDA, Rell Marr Primary Care Physician - Avi Yepez MD This Is Your Medications List acetaminophen-hydrocodone (Portis 325 mg-5 mg oral tablet) apixaban (Eliquis [...] What How Much When Instructions Unchanged acetaminophen-hydrocodone (Portis 325 mg-5 mg oral tablet) 1 Tablets [...] for choosing us for your care. Normal [facility] General Surgery Office/Clini c Noteon 09-08-2024 [...] Tab, 25 mg= 1 tab(s), Oral, BID Portis 325 mg-5 mg oral tablet, 1 tab(s), [...] virus vaccine, inactivated 09/12/2023 Recorded SARS-CoV-2 (COVID-19) [id number].[id number] 10/14/2022 Recorded influenza virus vaccine, inactivated 10/03/2022 Recorded SARSCoV2 mRNA(eiedcdqyc-gcej-nscpno) vac 03/22/2022 Recorded SARS-CoV-2 (COVID-19) mRNA BNT-162b2 vax 09/03/2021 Recorded influenza virus vaccine, inactivated 08/25/2021 Recorded SARS-CoV-2 (COVID-19) mRNA BNT-162b2 vax 02/13/2021 Recorded SARS-CoV-2 (COVID-19) mRNA BNT-162b2 vax 01/20/2021 Recorded SARS-CoV-2 (COVID-19) mRNA BNT-162b2 vax 01/13/2021 Recorded SARS-CoV-2 (COVID-19) mRNA BNT-162b2 vax 12/23/2020 Recorded influenza virus vaccine, inactivated 08/28/2020 Recorded Normal [facility] Comment on above: Result Comment: Elec tronically Signed By: SNOW LANDA, Rell Marr\.br\Date and Time Signed: 09/08/24 16:32 EST Reminderson 08-26-2024 Reminders Reminders From: María Ayala LPN To: N - Clinical; Sent: 08/26/2024 11:53:39 EDT Show up: 07/26/2034 07:00:00 EDT Subject: colonoscopy recall Due Date/Time: 08/25/2034 07:00:00 EDT Reminder/Recall Patient due for screening colonoscopy 08/25/2034. Normal [facility] Pathology Request for Lab Co rpon 08-25-2024 Pathology Request for Lab Le Normal [facility] Comment on above: Order Comment: PATHO LOGY GI SPECIMEN Result Comment: See report. Scanned copy available in EMR. PERFORMED BY: [place] [address] PATHOLOGIST COIN TELLER MICHAEL LEMUS M.D. Performed By: #### P ATH TO [facility] #### [address] Ambulatory Visit Summaryon 0 07-20-2024 Ambulatory [...] prescribing physician if questions or concerns acetaminophen-hydrocodone (Portis 325 mg-5 mg oral tablet) apixaban (Eliquis [...] What How Much When Instructions Unchanged acetaminophen-hydrocodone (Portis 325 mg-5 mg oral tablet) 1 Tablets [...] for choosing us for your care. Normal [facility] ALL CBC WITH AUTO DIFFon BASOPHILS ABSOLUTE AUTO 0.0 [facility] Basophils/100 WBC (Bld) 0.5 % 0.2 - 2.0 % [facility] Eosinophils/100 WBC (Bld) 3.0 % 0.9 - 7.0 % [facility] Erythrocyte distribution width (RBC) [Ratio] 13.9 % 11.0 - 15.0 % [facility] Hematocrit (Bld) [Volume fraction] 46.2 % 42.0 - 54.0 % [facility] Hemoglobin (Bld) [Mass/Vol] 15.6 g/dL 14.0 - 18.0 g/dL [facility] IMMATURE GRANULOCYTES ABS AUTO 0.03 [facility] Immature granulocytes/100 WBC (Bld) 0.5 % 0.0 - 0.5 % [facility] LYMPHOCYTES ABSOLUTE AUTO 1.4 [facility] Lymphocytes/100 WBC (Bld) 22.3 % 20.5 - 60.0 % [facility] MCH (RBC) [Entitic mass] 28.9 pg 25.9 - 34.0 pg [facility] MCHC (RBC) [Mass/Vol] 33.8 g/dL 29.9 - 35.2 g/dL [facility] MCV (RBC) [Entitic vol] 85.7 fL 80.0 - 94.0 fL [facility] MONOCYTES ABSOLUTE AUTO 0.7 [facility] Monocytes/100 WBC (Bld) 11.6 % 1.7 - 12.0 % [facility] NEUTROPHILS ABSOLUTE AUTO 4.0 [facility] Neutrophils/100 WBC (Bld) 62.1 % 43.0 - 75.0 % [facility] Platelet mean volume (Bld) [Entitic vol] 10.5 fL 9.5 - 13.5 fL [facility] TBH EO # 0.2 [facility] TB PLT 246 [facility] TB RBC 5.39 [facility] TB WBC 6.4 [facility] Healthcare Office Visiton 06-11-2024 Follow-up visit [id number] Kim Nichols 1960 M Date Provider Department [place] 06/11/2024 3848-RICHARD BENITEZ Hos Family History Problem Relation Age of Onset Brain Aneurysm Mother Stroke Father Heart attack Sister Family Status - Relation Status Age at Mother Father Sister Level of Service:[address]482 [place] OFFICE/OUTPATIENT NEW MODERATE MDM 45 MINUTES Reason for Visit and Comments: New Patient [Other] - CHEST PAIN/AFIB Normal [facility] CNOVon 2023 CNOV Office Visit ([facility] ) KIM NICHOLS ([id number]) 1960 M Date Time Provider Department 08/04/23 [...] in [facility] MEDICATIONS: Gabapentin, Portis, Tylenol Have you ever seen a pain [...] issues. 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 [facility] 07-08-2023 [facility] Telephone (SPNMMN) KIM NICHOLS ([id number]) 1960 Date Time Provider Department 07/08/23 NIKOLAY CAMP [facility] During your visit today, we recorded the following information about you: Stacy Gallagher RN 07/08/2023 12:56 PM Signed Post Spine Injection phone call: [phone] on 07/08/23 Patient denies fever, chills, new [...] appointment 2-4 weeks post procedure by calling [phone] Patient does not have any questions or [...] Encounter Status:Closed by STACY GALLAGHER on 07/08/23 [facility] HISTORY PHYSICALon HISTORY PHYSICAL HNO ID: [id number] Author: Sherice Galvin APRN.CLAY STAIN MIXER Service: ? Author Type: Nurse Practitioner Type: [...] Prophylaxis/Anticoagulants VTE Prophylaxis: NA SIGNATURE: Sherice Galvin APRN.CLAY STAIN MIXER PATIENT NAME: Kim Nichols DATE: July 01, 2023 TIME: 9:04 AM Normal [facility] OPERATIVE NOon 07-01-2023 OPERATIVE NO HNO ID: [id number] Author: Nikolay Camp DO Service: Physical Medicine AND Rehabilitation Author Type: Physician Type: Operative Report Filed: 07/01/2023 9:40 AM Note Text: PROCEDURE REPORT Surgery/Procedure Date: July 01, 2023 Interventionalist: Nikolay Camp DO Procedure(s): Left L5 transforaminal epidural steroid injection Pre-Op/Pre-Procedure Diagnosis: Lumbar radiculopathy Post-Op Diagnosis: same SUBJECTIVE: Kim Nichols is a 62 year old male, who presents to the [facility] for a left L5 transforaminal epidural steroid injection. This is his first (1) procedure. 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 Pain is [...] home in stable condition. DO Fátima Castrejon [facility] Nina [facility] KIM NICHOLS ([id number]) 1960 M Date Time Provider Department 06/26/23 [facility] CAMP [facility] During your visit today, we recorded the following information about you: Oscar Rollins LPN 06/26/2023 9:20 AM Signed Phoned patient and message left for Kim to confirm appointment for Kim iNchols for spine procedure on 07/01/2023. Patient notified that [place] will call patient the night before with the time to arrive for injection. Patient verbalized understanding of the following: -Provided education on spine procedure and answered questions related to spine injection procedure. -Regulatory Law Specialist is needed to drive patient home. -NPO [...] to report. Diabetic: No Patient given number [phone], spine injections schedulers, if there is any need to reschedule/ change appointment during normal business hours. Active [employer] users were informed to read [employer] procedure instructions prior to appointment. AMBULATORY PATIENT [...] Encounter Status:Closed by OSCAR ROLLINS on 06/26/23 [facility] CNOVon 06-02-2023 CNOV Office Visit ([facility] ) KIM NICHOLS ([id number]) 1960 M Date Time Provider Department 06/02/23 1:40 PM [facility] During your visit today, we recorded the following information about you: Pulse Respiration Blood pressure Weight 63/minute 18/minute 128/84 117 kg Height 1.829 m Darren Elizabeth, KRYS.CLAY STAIN MIXER 06/03/2023 1:01 PM Signed SPINE SURGERY OUTPATIENT [...] with him pain. He also is prescribed Portis for breakthrough pain which he only takes [...] Weight Tips; Status:Complete - Retrospective Authorization; Done: [id number] Some eating tips that can help you lose weight.; Status:Complete - Retrospective Authorization; Done: [id number] Coronary disease, Hyperlipidemia Renew: Aspirin EC Low Dose 81 MG Oral Tablet Delayed Release; TAKE 1 TABLET DAILY DIRECTED Hyperlipidemia Renew: Rosuvastatin Calcium 20 MG Oral Tablet; take 1 tablet by mouth at bedtime SocHx: Never a smoker Tobacco Use Screening; Status:Complete; Done: [id number] Patient Instructions Please bring all medicines, vitamins, [...] MG Oral CapsuleTAKE 1 CAPSULE TWICE DAILY. Portis 5-325 MG TABSTAKE 1 TABLET EVERY 4 [...] negative for complaint. Vitals Vital Signs Recorded: [id number] 11:22AM Heart Rate64, R Radial Jtcpsjpk706, RUE, Sitting Osmcavxak86, RUE, Sitting Height6 ft Amtjcn588 lb BMI Jzidqssucr79.21 kg/m2 BSA Calculated2.41 Tobacco Useb) No PHQ-2 [...] Screening.on 023 Adult depression screening assessment No [facility] [address] DO Work Phone: Tobacco use status [facility] b) No [facility] [address] DO Work Phone: Tobacco Screening.on 022 Adult depression screening assessment No -[facility] [address] DO Work Phone: Fall risk assessment c) Not medically indicated [facility] [place] [facility] [address] DO Work Phone: Tobacco use status [facility] b) No -[facility] [address] DO Work Phone: H PYLORI ANTIBODY IGGon 11-28 H. PYLORI IGG ABS 0.45 Index Value Normal 0.00-0.79 T [facility] Comment on above: Result Comment: Nega tive <0.80 Equivocal 0.80 - 0.89 Positive >0.89 Performed By: #### L IPID, TSH, T7, URIC, CMP #### [facility] [address] [place] [address] [address] Conor Chan INSULINon 12-21-2021 Insulin 55.2 uIU/mL Critically high 2.6-24.9 [facility] Comment on above: Performed By: #### I NSULIN #### [facility] [address] [place] [address] [address] Conor Chan TESTOSTERONE, TOTALon 2021 Testosterone [Mass/Vol] 380 ng/dL Normal 264-916 [facility] Comment on above: Result Comment: Adul t male reference interval is based on a population of healthy nonobese males (BMI <30) between 19 and 39 years old. román Cool.al. JCEM 2017,102;4289-6307. PMID: [id number]. Performed By: #### L IPID, TSH, T7, URIC, CMP #### [facility] [address] [place] [address] [address] Conor Chan CBC AUTO DIFFon 12-20-2021 BASO # 0.0 103/ul Normal 0.0-0.1 [facility] Comment on above: Performed By: #### C BC #### [facility] [address] [place] [address] [address] Conor Chan Basophils/100 WBC (Bld) 0.5 % Normal 0.2-2.0 [facility] Comment on above: Performed By: #### C BC #### [facility] [address] [place] [address] [address] Conor Chan EO # 0.2 103/ul Normal 0.0-0.7 [facility] Comment on above: Performed By: #### C BC #### [facility] [address] [place] [address] [address] Conor Chan Eosinophils/100 WBC (Bld) 3.5 % Normal 0.9-7.0 [facility] Comment on above: Performed By: #### C BC #### [facility] [address] [place] [address] [address] Conor Chan Erythrocyte distribution width (RBC) [Ratio] 13.8 % Normal 11.0-15.0 [facility] Comment on above: Performed By: #### C BC #### [facility] [address] [place] [address] [address] Conor Chan Hematocrit (Bld) [Volume fraction] 48.5 % Normal 42.0-54.0 [facility] Comment on above: Performed By: #### C BC #### [facility] [address] [place] [address] [address] Conor Chan Hemoglobin (Bld) [Mass/Vol] 16.3 g/dL Normal 14.0-18.0 [facility] Comment on above: Performed By: #### C BC #### [facility] [address] [place] [address] [address] Conor Chan IG # 0.02 10e3/ul Normal 0.00-0.03 [facility] Comment on above: Performed By: #### C BC #### [facility] [address] [place] [address] Dr. Conor Chan IG % 0.3 % Normal 0.0-0.5 [facility] Comment on above: Performed By: #### C BC #### [facility] [address] [place] [address] Dr. Conor Chan LYMPH # 1.4 103/ul Normal 1.2-3.8 [facility] Comment on above: Performed By: #### C BC #### [facility] [address] [place] [address] Dr. Conor Chan Lymphocytes/100 WBC (Bld) 21.7 % Normal 20.5-60.0 [facility] Comment on above: Performed By: #### C BC #### [facility] [address] [place] [address] Dr. Conor Chan MANUAL DIFF REQ NO Normal [facility] Comment on above: Performed By: #### C BC #### [facility] [address] [place] [address] Dr. Conor Chan MCH (RBC) [Entitic mass] 28.5 pg Normal 25.9-34.0 [facility] Comment on above: Performed By: #### C BC #### [facility] [address] [place] [address] Dr. Conor Chan MCHC (RBC) [Mass/Vol] 33.6 g/dL Normal 29.9-35.2 [facility] Comment on above: Performed By: #### C BC #### [facility] [address] [place] [address] Dr. Conor Chan MCV (RBC) [Entitic vol] 84.9 fL Normal 80.0-94.0 [facility] Comment on above: Performed By: #### C BC #### [facility] [address] [place] [address] Dr. Conor Chan MONO # 0.6 103/ul Normal 0.3-0.8 [facility] Comment on above: Performed By: #### C BC #### [facility] [address] [place] [address] Dr. Conor Chan Monocytes/100 WBC (Bld) 9.3 % Normal 1.7-12.0 [facility] Comment on above: Performed By: #### C BC #### [facility] [address] [place] [address] Dr. Conor Chan NEUT # 4.1 103/ul Normal 1.4-6.5 [facility] Comment on above: Performed By: #### C BC #### [facility] [address] [place] [address] Dr. Conor Chan Neutrophils/100 WBC (Bld) 64.7 % Normal 43.0-75.0 [facility] Comment on above: Performed By: #### C BC #### [facility] [address] [place] [address] Dr. Conor Chan Platelet mean volume (Bld) [Entitic vol] 9.8 fL Normal 9.5-13.5 [facility] Comment on above: Performed By: #### C BC #### [facility] [address] [place] [address] Dr. Conor Chan PLT 235 103/ul Normal 150-450 [facility] Comment on above: Performed By: #### C BC #### [facility] [address] [place] [address] Dr. Conor Chan RBC 5.71 106/ul Normal 4.70-6.10 [facility] Comment on above: Performed By: #### C BC #### [facility] [address] [place] [address] Dr. Conor Chan WBC 6.4 103/ul Normal 4.0-11.0 [facility] Comment on above: Performed By: #### C BC #### [facility] [address] [place] [address] Dr. Conor Chan FREE THYROXINE INDEX T7on FTI 2.89 Normal [facility] Comment on above: Performed By: #### L IPID, TSH, T7, URIC, CMP #### [facility] [address] [place] [address] Dr. Conor Chan T3U 34.0 % Normal 23.5-40.5 [facility] Comment on above: Performed By: #### L IPID, TSH, T7, URIC, CMP #### [facility] [address] [place] [address] Dr. Conor Chan T4 [Mass/Vol] 8.50 ug/dL Normal 5.53-11.00 [facility] Comment on above: Performed By: #### L IPID, TSH, T7, URIC, CMP #### [facility] [address] [place] [address] Dr. Conor Chan GLYCOHEMOGLOBIN A1Con 2021 ADA RECOMMENDATION ADA THERAPEUTIC TARG ET 6.0 - 7.0 ACTION SUGGESTED > 7.0 Normal [facility] Comment on above: Performed By: #### A 1C #### [facility] [address] [place] [address] Dr. Conor Chan Glucose [Mass/Vol] 126 mg/dL Normal [facility] Comment on above: Performed By: #### A 1C #### [facility] [address] [place] [address] Dr. Conor Chan HbA1c (Bld) [Mass fraction] 6.0 % Normal <=6.0 [facility] Comment on above: Performed By: #### A 1C #### [facility] [address] [place] [address] Dr. Conor Chan LIPID PROFILEon 12-20-2021 CHOL-HDL RATIO NORM SEE BELOW Normal [facility] Comment on above: Result Comment: 3.3 - 4.4 LOW RISK 4.4 - 7.1 AVERAGE RISK 7.1 - 11.0 MODERATE RISK >11.0 HIGH RISK Performed By: #### L IPID, TSH, T7, URIC, CMP #### [facility] [address] [place] [address] Dr. Conor Chan Cholesterol [Mass/Vol] 161 mg/dL Normal <=200 [facility] Comment on above: Performed By: #### L IPID, TSH, T7, URIC, CMP #### [facility] [address] [address] [address] Conor Chan Cholesterol in HDL [Mass/Vol] 50 mg/dL Normal [facility] Comment on above: Performed By: #### L IPID, TSH, T7, URIC, CMP #### [facility] [address] [address] [address] Conor Chan Cholesterol in LDL [Mass/Vol] 96.0 mg/dL Normal [facility] Comment on above: Performed By: #### L IPID, TSH, T7, URIC, CMP #### [facility] [address] [address] [address] Conor Chan Cholesterol.total/ Cholesterol in HDL [Mass ratio] 3.2 {ratio} Normal [facility] Comment on above: Performed By: #### L IPID, TSH, T7, URIC, CMP #### [facility] [address] [address] [address] Conor Chan HDL NORMAL > or = 60 mg/dl - LO W CARDIOVASCULAR RISK <40 mg/dl - HIGH CARDIOVASCULAR RISK Normal [facility] Comment on above: Performed By: #### L IPID, TSH, T7, URIC, CMP #### [facility] [address] [address] [address] Conor Chan LDL CALC NORMAL SEE BELOW Normal [facility] Comment on above: Result Comment: <100 mg/dl OPTIMAL 100 - 129 mg/dl NEAR OR ABOVE OPTIMAL 130 - 159 mg/dl BORDERLINE HIGH 160 - 189 mg/dl HIGH >190 mg/dl VERY HIGH Performed By: #### L IPID, TSH, T7, URIC, CMP #### [facility] [address] [address] [address] Conor Chan Triglyceride [Mass/Vol] 75 mg/dL Normal <=150 [facility] Comment on above: Performed By: #### L IPID, TSH, T7, URIC, CMP #### [facility] [address] [address] [address] Conor Chan VLDL CALC 15.0 mg/dL Normal [facility] Comment on above: Performed By: #### L IPID, TSH, T7, URIC, CMP #### [facility] [address] [place] [address] Dr. Conor Chan PROF 14(COMP METB)on 022 Albumin [Mass/Vol] 3.7 g/dL Normal 3.5-5.0 [facility] Comment on above: Performed By: #### L IPID, TSH, T7, URIC, CMP #### [facility] [address] [place] [address] Dr. Conor Chan Albumin/Globulin [Mass ratio] 0.9 {ratio} Normal [facility] Comment on above: Performed By: #### L IPID, TSH, T7, URIC, CMP #### [facility] [address] [place] [address] Dr. Conor Chan ALP [Catalytic activity/Vol] 58 U/L Normal 38-126 [facility] Comment on above: Performed By: #### L IPID, TSH, T7, URIC, CMP #### [facility] [address] [place] [address] Dr. Conor Chan ALT [Catalytic activity/Vol] 40 U/L Normal 21-72 [facility] Comment on above: Performed By: #### L IPID, TSH, T7, URIC, CMP #### [facility] [address] [place] [address] Dr. Conor Chan Anion gap [Moles/Vol] 5.5 mmol/L Normal [facility] Comment on above: Performed By: #### L IPID, TSH, T7, URIC, CMP #### [facility] [address] [place] [address] Dr. Conor Chan AST [Catalytic activity/Vol] 18 U/L Normal 17-59 [facility] Comment on above: Performed By: #### L IPID, TSH, T7, URIC, CMP #### [facility] [address] [place] [address] Dr. Conor Chan Bilirubin [Mass/Vol] 0.5 mg/dL Normal 0.2-1.3 [facility] Comment on above: Performed By: #### L IPID, TSH, T7, URIC, CMP #### [facility] [address] [place] [address] Dr. Conor Chan Calcium [Mass/Vol] 9.9 mg/dL Normal 8.4-10.2 [facility] Comment on above: Performed By: #### L IPID, TSH, T7, URIC, CMP #### [facility] [address] [place] [address] Dr. Conor Chan Chloride [Moles/Vol] 97 mmol/L Critically low 98-107 [facility] Comment on above: Performed By: #### L IPID, TSH, T7, URIC, CMP #### [facility] [address] [place] [address] Dr. Conor Chan CO2 [Moles/Vol] 30.7 mmol/L Critically high 22.0-30.0 [facility] Comment on above: Performed By: #### L IPID, TSH, T7, URIC, CMP #### [facility] [address] [place] [address] Dr. Conor Chan Creatinine [Mass/Vol] 1.04 mg/dL Normal 0.66-1.25 [facility] Comment on above: Performed By: #### L IPID, TSH, T7, URIC, CMP #### [facility] [address] [place] [address] Dr. Conor Chan EGFR-AF [place] ISLANDER >60 Normal >=60 [facility] Comment on above: Performed By: #### L IPID, TSH, T7, URIC, CMP #### [facility] [address] [place] [address] Dr. Conor Chan EGFR-NON AF [place] ISLANDER >60 Normal >=60 [facility] Comment on above: Performed By: #### L IPID, TSH, T7, URIC, CMP #### [facility] [address] [place] [address] Dr. Conor Chan Globulin (S) [Mass/Vol] 4.2 g/dL Normal [facility] Comment on above: Performed By: #### L IPID, TSH, T7, URIC, CMP #### [facility] [address] [place] [address] Dr. Conor Chan Glucose [Mass/Vol] 122 mg/dL Critically high 74-106 T [facility] Comment on above: Performed By: #### L IPID, TSH, T7, URIC, CMP #### [facility] [address] [place] [address] Dr. Conor Chan Potassium [Moles/Vol] 3.2 mmol/L Critically low 3.4-5.0 [facility] Comment on above: Performed By: #### L IPID, TSH, T7, URIC, CMP #### [facility] [address] [place] [address] Dr. Conor Chan Protein [Mass/Vol] 7.9 g/dL Normal 6.1-8.2 [facility] Comment on above: Performed By: #### L IPID, TSH, T7, URIC, CMP #### [facility] [address] [place] [address] Dr. Conor Chan Sodium [Moles/Vol] 130 mmol/L Critically low 137-145 [facility] Comment on above: Performed By: #### L IPID, TSH, T7, URIC, CMP #### [facility] [address] [place] [address] Dr. Conor Chan Urea nitrogen [Mass/Vol] 15.0 mg/dL Normal 9.0-20.0 [facility] Comment on above: Performed By: #### L IPID, TSH, T7, URIC, CMP #### [facility] [address] [place] [address] Dr. Conor Chan Urea nitrogen/Creatinin e [Mass ratio] 14.4 mg/mg Normal [facility] Comment on above: Performed By: #### L IPID, TSH, T7, URIC, CMP #### [facility] [address] [place] [address] Dr. Conor Chan TSHon 12-20-2021 TSH 2.122 uIU/mL Normal 0.470-4.680 [facility] Comment on above: Performed By: #### L IPID, TSH, T7, URIC, CMP #### [facility] [address] [place] [address] Dr. Conor Chan TSH RANGE SEE BELOW Normal [facility] Comment on above: Result Comment: <0.3 4 UIU/ml HYPERTHYROID 0.34-5.60 UIU/ml EUTHYROID >5.60 UIU/ml HYPOTHYROID Performed By: #### L IPID, TSH, T7, URIC, CMP #### [facility] [address] [place], [place] [address] Dr. Conor Chan URIC ACID SERUMon 12-20-2021 Urate [Mass/Vol] 7.3 mg/dL Normal 3.5-8.5 [facility] Comment on above: Performed By: #### L IPID, TSH, T7, URIC, CMP #### [facility] [address] [place], [place] [address] Dr. Conor Chan XR LSPINE MIN 4 [...] FRANCO Date: 2021-12-20 10:06 Normal [facility] Vital Signs Date Time Vital Sign Value Performing Clinician Facility 07-14-2025 08:50-0400 Body height 182.9 cm Car LUCIANO Work Phone: [facility] 07-14-2025 08:50-0400 Body mass index (BMI) [Ratio] 37.51 kg/m2 Car LUCIANO Work Phone: [facility] 07-14-2025 08:50-0400 Body weight 125.47 kg Car LUCIANO Work Phone: [facility] 07-20-2024 13:29-0400 Blood Pressure Location Rell ADAMSON [facility] [place] 07-20-2024 13:29-0400 Diastolic blood pressure 78 mm[Hg] Erll NILL [facility] 07-20-2024 13:29-0400 Heart rate 72 /min Rell VALENCIAL [facility] 07-20-2024 13:29-0400 Respiratory rate 16 /min Rell VALENCIAL [facility] 07-20-2024 13:29-0400 Systolic blood pressure 116 mm[Hg] Rell VALENCIAL [facility] 07-08-2024 09:47-0400 Body height 182.9 cm aCr LUCIANO Work Phone: [facility] 07-08-2024 09:47-0400 Body mass index (BMI) [Ratio] 36.84 kg/m2 Car LUCIANO Work Phone: [facility] 07-08-2024 09:47-0400 Body weight 123.2 kg Car LUCIANO Work Phone: [facility] 2023 08:03-0400 Body height 182.9 cm Bilal Butt Work Phone: [facility] 2023 08:03-0400 Body weight 120.2 kg Bilal Butt Work Phone: [facility] 06-02-2023 13:26-0400 Body height 182.9 cm Darren Elizabeth APRN.[employer] Work Phone: [facility] 06-02-2023 13:26-0400 Body weight 117.03 kg Darren Elizabeth APRN.[employer] Work Phone: [facility] 06-02-2023 13:26-0400 Diastolic blood pressure 84 mm[Hg] Darren Elizabeth APRN.[employer] Work Phone: [facility] 06-02-2023 13:26-0400 Heart rate 63 /min Darren Elizabeth APRN.[employer] Work Phone: [facility] 06-02-2023 13:26-0400 Respiratory rate 18 /min Darren Elizabeth [employer]GO AND CONTAINER INSPECTOR.[employer] Work Phone: [facility] 06-02-2023 13:26-0400 SaO2% (BldA) [Mass fraction] 95 % Darren Elizabeth [employer] AND CONTAINER INSPECTOR.[employer] Work Phone: [facility] 06-02-2023 13:26-0400 Systolic blood pressure 128 mm[Hg] Darren Elizabeth [employer] AND CONTAINER INSPECTOR.[employer] Work Phone: [facility] 05-13-2023 11:22-0400 Body height 182.88 cm Avi M Hoy Work Phone: [facility] DO Work Phone: 05-13-2023 11:22-0400 Body mass index (BMI) [Ratio] 36.21 kg/m2 Avi M Hoy Work Phone: [facility] DO Work Phone: 05-13-2023 11:22-0400 Body surface area Derived from formula 2.41 m2 Avi M Hoy Work Phone: [facility] DO Work Phone: 05-13-2023 11:22-0400 Body weight 121.11 kg Avi M Hoy Work Phone: [facility] DO Work Phone: 05-13-2023 11:22-0400 Diastolic blood pressure 78 mm[Hg] Avi M Hoy Work Phone: [facility] DO Work Phone: 05-13-2023 11:22-0400 Heart rate 64 /min Avi M Hoy Work Phone: [facility] DO Work Phone: 05-13-2023 11:22-0400 Systolic blood pressure 132 mm[Hg] Avi M Hoy Work Phone: [facility] DO Work Phone: 05-07-2022 11:36-0400 Body height 182.88 cm Avi Aguilar Hoy Work Phone: [facility] DO Work Phone: 05-07-2022 11:36-0400 Body mass index (BMI) [Ratio] 38.38 kg/m2 Avi Lauren Hoy Work Phone: [facility] DO Work Phone: 05-07-2022 11:36-0400 Body surface area Derived from formula 2.47 m2 Avi Lauren Hoy Work Phone: [facility] DO Work Phone: 05-07-2022 11:36-0400 Body weight 128.37 kg Avi Lauren Hoy Work Phone: [facility] DO Work Phone: 05-07-2022 11:36-0400 Diastolic blood pressure 72 mm[Hg] Avi Lauren Hoy Work Phone: [facility] DO Work Phone: 05-07-2022 11:36-0400 Heart rate 66 /min Avi Lauren Hoy Work Phone: [facility] DO Work Phone: 05-07-2022 11:36-0400 Systolic blood pressure 110 mm[Hg] Avi Lauren Hoy Work Phone: [facility] DO Work Phone: Encounters Encounter [...] 07-15-2025 ambulatory Avi Yepez MD Work Phone: [facility] Work Phone: Start: 07-15-2025 End: 07-15-2025 Departed Referred Car LUCIANO-C -[facility] Start: 07-14-2025 End: 07-14-2025 Bamboo flowsheet Car LUCIANO Work Phone: [facility] Start: 07-14-2025 End: 07-14-2025 Bamboo flowsheet Car LUCIANO Work Phone: [facility] Start: 07-14-2025 End: 07-14-2025 Patient encounter procedure Car LUCIANO Work Phone: [facility] Comment on above: Pre-op examination ( Primary Dx); Arthritis of left knee Start: 07-14-2025 End: 07-14-2025 Preprocedural examination done Car LUCIANO Work Phone: [facility] Start: 07-14-2025 End: 07-14-2025 ambulatory Avi Yepez MD Work Phone: [facility] Work Phone: Start: 07-04-2025 End: 07-04-2025 ambulatory Evelyne Polk MD Facility:[facility] Start: 06-17-2025 End: 06-17-2025 Bamboo flowsheet Car LUCIANO Work Phone: [facility] Start: 06-17-2025 End: 06-17-2025 Bamboo flowsheet Car LUCIANO Work Phone: [facility] Start: 06-13-2025 End: 06-13-2025 ambulatory Evelyne Polk MD Facility: [facility] Start: 04-20-2025 End: 04-20-2025 Bambowade virk Jr. Elias Lewis Stepanic DO Work Phone: [facility] Start: 04-20-2025 End: 04-20-2025 Bamboo flowsheet Elias Lewis Stepanic DO Work Phone: [facility] Start: 04-20-2025 End: 04-20-2025 Office outpatient visit 40 minutes Elias Lewis Stepanic DO Work Phone: [facility] Comment on above: Acute pain of left k nee (Primary Dx); Arthritis of left knee Start: 04-20-2025 End: 04-20-2025 ambulatory ELIAS EDEN Not Available Start: 03-04-2025 End: 03-04-2025 ambulatory [facility] Start: 02-18-2025 End: 02-18-2025 Office outpatient visit 15 minutes Car Cuellar PA Work Phone: [facility] Comment on above: Acute pain of left k nee (Primary Dx); Arthritis of left knee; Knee instability, left Start: 02-18-2025 End: 02-18-2025 ambulatory CAR CUELLAR Not Available Start: 12-13-2024 End: 12-13-2024 ambulatory Evelyne Polk MD Facility: [facility] Start: 09-09-2024 End: 09-09-2024 ambulatory [facility] Start: 09-08-2024 End: 09-08-2024 ambulatory Rell ADAMSON Facility:[facility] Start: 09-08-2024 End: 09-08-2024 Patient encounter procedure Rell ADAMSON [facility] [place] Start: 08-30-2024 End: 08-30-2024 Bamboo flowsheet Car [...] 08-25-2024 ambulatory MD Avi Yepez Work Phone: [facility] Work Phone: Start: 08-25-2024 End: 08-25-2024 Departed Referred MD Avi Yepez Work Phone: [facility] Start: 08-25-2024 End: 08-25-2024 ambulatory Rell ADAMSON Facility:[id number] Start: 08-16-2024 End: 08-16-2024 Bamboo flowsheet [...] Start: 07-28-2024 End: 07-28-2024 Refill Corona Peng [place] Work Phone: [facility] Comment on above: Post-op pain (Primar y Dx) Start: 07-20-2024 End: 07-20-2024 ambulatory Rell ADAMSON Facility:[facility] Start: 07-20-2024 End: 07-20-2024 Patient encounter [facility] Start: 07-19-2024 End: 07-19-2024 Bamboo flowsheet Maria E Granville PT [facility] Start: 07-19-2024 End: 07-19-2024 Bamboo flowsheet Maria E Liv PT [facility] Start: 07-19-2024 End: 07-19-2024 ambulatory Maria E Liv PT [facility] Comment on above: Internal derangement of left knee (Primary Dx); Need for crutch training Start: 07-09-2024 End: 07-09-2024 Clinisync Result Encounter Cra LUCIANO Work Phone: [facility] Unsolicited [...] Dx) Start: 06-11-2024 End: 06-11-2024 ambulatory STEVETamara [facility] Start: 06-09-2024 Non-patient / Non-visit MD Indra Yepez Work Phone: [facility] Work Phone: Start: 2023 End: 2023 ambulatory JUAN R LING Facility:[facility] Start: 2023 End: 2023 Office outpatient new 30 minutes Juan R Ling MD Work Phone: [facility] Comment on above: Meralgia paresthetic a of left side (Primary Dx); Chronic midline low back pain without sciatica Start: 08-01-2023 End: 08-01-2023 ambulatory Darren Elizabeth [employer] AND CONTAINER INSPECTOR.[employer] Work Phone: [facility] Comment on above: Dr chong Cut me open Start: 07-01-2023 End: 07-01-2023 ambulatory NIKOLAY CAMP Facility:[facility] Start: 06-26-2023 Telephone encounter Nikolay Camp DO Work Phone: [facility] Comment on above: Preparations For Pro cedures (Pre-injection instructions) Start: 06-19-2023 Orders Only Nikolay Montgomery rafael DO Work Phone: Neurology Comment on above: Lumbar radiculopathy (Primary Dx); Displacement of lumbar intervertebral disc without myelopathy Start: 06-02-2023 End: 06-03-2023 ambulatory DARREN ELIZABETH Facility:[facility] Start: 06-02-2023 End: 06-02-2023 Patient encounter procedure Darren Elizabeth [employer] AND CONTAINER INSPECTOR.[employer] Work Phone: [facility] Comment on above: Radiculopathy, lumba r region (Primary Dx); Lumbar disc herniation Start: 05-13-2023 Office outpatient vi sit 25 minutes Avi Yepez Work Phone: [facility] DO Work Phone: Start: 05-13-[address] Reilly Nelson II Facility: Start: 05-06-2023 Chart abstracting None (Historical) Neurology Start: 12-16-2022 Rx Renewal Avi Yepez Work Phone: [facility] DO Work Phone: Start: 07-17-2022 End: 07-17-2022 Departed Referred MD Avi Yepez Work Phone: [facility] [address] Start: 05-07-2022 Office outpatient vi sit 25 minutes Avi Yepez Work Phone: [facility] DO Work Phone: Start: 01-03-[address] AVI YEPEZ Facility :[facility] Start: 12-21-2021 Encounter for genera l adult medical examination without abnormal findings DR AVI YEPEZ [facility] Start: 12-20-2021 End: 12-21-[address] AVI YEPEZ Facility:[facility] Start: 12-20-2021 End: 12-21-2021 Encounter for general adult medical examination without abnormal findings DR AVI YEPEZ Facility:[facility] Start: 12-10-2021 Rx Renewal Reilly mcmahon MD Work Phone: [facility] DO Work Phone: Procedures Date Procedure Procedure Detail Performing Clinician Start: 07-15-2025 Culture bacterial quanttative colony count urine Car LUCIANO Work Phone: Start: 07-15-2025 [facility] CMP (CMP) (FOR REMOTE [facility] USE) Donald LUCIANO Work Phone: Start: 07-15-2025 [...] Start: 07-17-2022 Radiologic examination of knee MD Puaj Yepez Work Phone: Start: 12-20-[address] AVI YEPEZ Comment on above: Performed By: #### PSASC #### [facility] [address] [place] [address] Dr. Conor Chan Start: 06-09-2020 Total colonoscopy Reilly Nelson MD Work Phone: Start: 07-02-2019 End: 07-02-2019 Colonoscopy Darren Elizabeth APRN.[employer] Work Phone: Cardiac catheterization Will renetta Nelosn MD Work Phone: Cardiac catheterization Jorge huang NILL Cholecystectomy Reilly miranda MD Work Phone: Cholecystectomy Rell NILL Nasal septoplasty Rell MORALEZ Plan of Treatment Date Care Activity Detail Author Start: 08-25-2034 Screening for malign ant neoplasm of colon [facility] Start: 07-02-2029 Screening for malign ant neoplasm of colon [facility] Start: 12-20-2026 PROSTATE CANCER SCREENING DISCUSSION PROSTATE CANCER SCREENING DISCUSSION [facility] Start: 08-25-2025 End: 08-25-2025 Patient encounter procedure 08/25/2025 1:30 PM EDT Office Visit [facility] [address] [place] [address] Corona Peng, [place] [address] [place] [address] [facility] Start: 08-05-2025 End: 08-05-2025 ambulatory 08/05/2025 1:30 PM EDT Evaluation [facility] [address] [place] [address] Tigist Mukherjee, PT [facility] Start: 07-15-2025 Bacteria identified in Urine by Culture [facility] Start: 07-15-2025 Urine culture [facility] Start: 07-14-2025 End: 07-14-2026 aPTT in Blood by Coagulation assay APTT Lab Routine Arthritis of left knee Pre-op examination Expected: 07/14/2025, Expires: 07/14/2026 [facility] Work Phone: Comment on above: Expected: 07/14/2025 , Expires: 07/14/2026 Start: 07-14-2025 End: 07-14-2026 Bacteria identified in Urine by Culture Urine culture Microbiology Routine Arthritis of left knee Pre-op examination Expected: 07/14/2025 (Approximate), Expires: 07/14/2026 [facility] Comment on above: Expected: 07/14/2025 (Approximate), Expires: 07/14/2026 Start: 07-14-2025 End: 07-14-2026 CBC W Auto Differential panel - Blood CBC and differential Lab Routine Arthritis of left knee Pre-op examination Expected: 07/14/2025 (Approximate), Expires: 07/14/2026 [facility] Comment on above: Expected: 07/14/2025 (Approximate), Expires: [...] Pre-op examination Expected: 07/14/2025 (Approximate), Expires: 07/14/2026 [facility] Comment on above: Expected: 07/14/2025 (Approximate), Expires: 07/14/2026 Start: 07-14-2025 End: 07-14-2026 Urinalysis complete panel - Urine Urinalysis with reflex microscopic Lab Routine Arthritis of left knee Pre-op examination Expected: 07/14/2025 (Approximate), Expires: 07/14/2026 [facility] Comment on above: Expected: 07/14/2025 (Approximate), Expires: 07/14/2026 Start: 07-14-2025 End: 07-14-2026 XR Femur and Tibia Views for leg length XR lower extremity leg length evaluation Imaging Routine Arthritis of left knee Pre-op examination Expected: 07/14/2025 (Approximate), Expires: 07/14/2026 [facility] Comment on above: Expected: 07/14/2025 (Approximate), Expires: [...] 04/20/2025 8:30 AM EDT Office Visit [facility] [address] [place] [address] Jr. Elias Thomas DO [address] [place] [address] Arrived [facility] Comment on above: Arrived Start: 08-30-2024 End: 08-30-2024 Patient encounter procedure 08/30/2024 10:15 AM EST Office Visit [facility] [address] [place] [address] Car Cuellar, PA [address] [facility] [address] [place] [address] S/P left knee arthroscopy (Primary Dx) [facility] Comment on above: S/P left knee arthro scopy (Primary Dx) Start: 08-25-2024 [facility] Start: 08-16-2024 End: 08-16-2024 Patient encounter procedure 08/16/2024 10:00 AM EDT Office Visit [facility] [address] [place] [address] Car Cuellar, PA [address] [facility] [address] [place] [address] S/P left knee arthroscopy (Primary Dx) [facility] Comment on above: S/P left knee arthro scopy (Primary Dx) Start: 08-12-2024 End: 08-12-2024 Patient encounter procedure 08/12/2024 9:00 AM EDT Office Visit [facility] [address] [place] [address] Car Cuellar, PA [address] [facility] [address] [place] [address] [facility] Start: 07-29-2024 End: 07-29-2024 Patient encounter procedure 07/29/2024 10:45 AM EDT Procedure Visit [facility] Jr. Elias Thomas DO [address] [place] [address] [facility] Start: 07-19-2024 End: 07-19-2024 ambulatory [facility] Comment on above: Internal derangement of left knee Start: 07-08-2024 End: 07-08-2025 CBC W Auto Differential panel - Blood CBC and differential Lab Routine Preop examination Expected: 07/08/2024 (Approximate), Expires: 07/08/2025 [facility] Work Phone: Comment on above: Expected: 07/08/2024 (Approximate), Expires: 07/08/2025 Start: 07-08-2024 End: 07-08-2024 Patient encounter procedure 07/08/2024 10:00 AM EDT Office Visit [facility] [address] [place] [address] Car Cuellar PA [address] [place] [address] Preop examination (Primary Dx); Internal derangement of left knee [facility] Comment on above: Preop examination (P rimary Dx); Internal derangement of left knee Start: 06-27-2024 Influenza vaccination Influenza Vacc ine (#1) [facility] Start: 06-27-2023 Influenza vaccination [facility] Start: 05-13-2023 FUV, Provider: Reilly Nelson, Status: Jus, Time: 11:10 AM FUV, Provider: Reilly Nelson, Status: Jus, Time: 11:10 AM [facility] 250 DO Work Phone: Start: 10-27-2022 DEPRESSION ASSESSMENT DEPRESSION ASS ESSMENT [facility] Start: 05-17-2022 COVID-19 VACCINE (6 - Pfizer series) COVID-19 VACCINE (6 - Pfizer series) [facility] Start: 05-15-2022 FUV, Provider: Reilly Nelson, Status: Pen, Time: 2:00 PM FUV, Provider: Reilly Nelson, Status: Pen, Time: 2:00 PM -[facility] 250 DO Work Phone: Start: 07-02-2020 Colonoscopy COLONOSCOPY [facility] Start: 07-02-2020 COLORECTAL CANCER SCREENING COLORECTAL CANCER SCREENING [facility] Start: 2016 Prostate Cancer Screening Discussion Prostate Cancer Screening Discussion [facility] Start: 2011 SHINGRIX VACCINE (1 of 2) SHINGRIX VACCINE (1 of 2) [facility] Start: 2006 COLOGUARD (FIT-DNA) COLOGUARD (FIT-D NA) [facility] Start: [address] COLONOGRAPHY [facility] Start: 2006 DIABETES SCREEN DIABETES SCREEN [facility] Start: 2006 Diabetes Screening Diabetes Screenin g [facility] Start: 2006 FECAL OCCULT BLOOD FECAL OCCULT BLOO D [facility] Start: 2006 SIGMOIDOSCOPY SIGMOIDOSCOPY [facility] Start: 1996 Lipid 1996 panel - Serum or Plasma Lipid Screening [facility] Start: 1996 LIPID SCREEN LIPID SCREEN [facility] Start: 1980 Urine microalbumin profile [facility] Start: 1979 HEPATITIS C SCREENING HEPATITIS C SC REENING [facility] Start: 1979 HIV SCREENING HIV SCREENING [facility] Start: 1961 Screening for malign ant neoplasm of colon [facility] End: 09-02-2024 Radex spine lumbosacral minimum 4 views XR LUMBAR MOTION 4V AP/LAT/ FLEX/EXT Radiology Routine Meralgia paresthetica of left side 1 Occurrences starting 2023 until 09/02/2024 [facility] Work Phone: Comment on above: 1 Occurrences starti ng 2023 until 09/02/2024 SPINE INTERVENTION PROCEDURE SPINE INTERVENTION PROCEDURE Procedures Routine Radiculopathy, lumbar region Lumbar disc herniation Ordered: 06/02/2023 [facility] Work Phone: Comment on above: Ordered: 06/02/2023 [facility] Immunizations Immunization Date Immunization Notes Care Provider [facility] 09-03-2024 influenza virus vaccine, unspecified formulation Car Cuellar PA Work Phone: [facility] 09-12-2023 influenza virus vaccine, unspecified formulation Jr. Thomas DO Work Phone: [facility] 10-14-2022 Pfizer COVID-19 Vac Bivalent 30 MCG/0.3ML Intramuscular Suspension Avi M Hoy Work Phone: [facility] 10-03-2022 influenza, injectabl e, quadrivalent, preservative free Avi M Hoy Work Phone: [facility] 250 DO Work Phone: 10-03-2022 influenza virus vaccine, unspecified formulation Darren Elizabeth APRN.CLAY STAIN MIXER Work Phone: [facility] 03-22-2022 Comirnaty 30 MCG/0.3 ML Intramuscular Suspension Avi M Hoy Work Phone: [facility] 250 DO Work Phone: 03-22-2022 Moderna COVID-19 Vaccine 100 MCG/0.5ML Intramuscular Suspension Avi M Hoy Work Phone: [facility] Comment on above: Series: 03-22-2022 SARS-CoV-2 mRNA (tjlpsvkalwn-sdao-lswyb se) vaccine Rell ADAMSON [facility] 03-22-2022 zoster vaccine recombinant [facility]vi M Hoy Work [facility] Work Phone: 09-03-2021 Pfizer-BioNTech COVID-19 Vacc 30 MCG/0.3ML Intramuscular Suspension Avi M Hoy Work Phone: [facility] 08-25-2021 influenza virus vaccine, unspecified formulation Rell ADAMSON [facility] 08-25-2021 influenza, injectabl e, quadrivalent, preservative free Avi Archery Work Phone: [facility] 250 DO Work Phone: 08-25-2021 zoster vaccine recombinant Avi M Hoy Work Phone: [facility] 250 DO Work Phone: 02-13-2021 Pfizer-BioNTech COVID-19 Vacc 30 MCG/0.3ML Intramuscular Suspension Avi M Hoy Work Phone: [facility] 01-20-2021 SARS-CoV-2 (COVID-19 ) mRNA BNT-162b2 vax Rell VALENCIAL [facility] 01-13-2021 Pfizer-BioNTech COVID-19 Vacc 30 MCG/0.3ML Intramuscular Suspension Avi M Hoy Work Phone: [facility] 12-23-2020 Pfizer-BioNTech COVID-19 Vacc 30 MCG/0.3ML Intramuscular Suspension Avi M Hoy Work Phone: [facility] 08-28-2020 influenza, injectabl e, quadrivalent, preservative free Avi Archery Work Phone: [facility] 250 DO Work Phone: 08-28-2020 influenza virus vaccine, unspecified formulation Juan R Ling MD Work Phone: [facility] Payers Date Payer Category Payer Self-pay [id number] 2021 Private Health Insurance [id number] 2007 Managed Care HMO (unspecified) [id number] 1961 Unknown [id number] 1961 Unknown [id number] [id number] 1961 Unknown [id number] 2.16.840.1.734636.3.579.2.356 1961 Unknown [id number] 2.16.840.1.585399.3.579.2.727 1961 Unknown [id number] 2.16.840.1.330515.3.579.2.727 1961 Unknown [id number] 2.16.840.1.225915.3.579.2.727 1961 Unknown [id number] 2.16.840.1.031601.3.579.2.196 1961 Unknown [id number] 2.16.840.1.843876.3.579.2.196 1961 Unknown [id number] 2.16.840.1.336483.3.579.2.196 1961 Unknown [id number] 2.16.840.1.273759.3.579.2.125 9 1961 Unknown [id number] 2.16.840.1.378912.3.579.2.125 9 1961 Unknown [id number] 2.16.840.1.379752.3.579.2.125 9 1961 Unknown [id number] 2.16.840.1.297011.3.579.2.125 9 1961 Unknown [id number] 2.16.840.1.449343.3.579.2.125 9 1961 Unknown [id number] 2.16.840.1.920778.3.579.2.125 9 1959 Private Health Insurance [id number] Self-pay [id number] Unknown Unknown [facility] [id number] Unknown [id number] [id number] Unknown [id number] 2.16.840.1.485815.3.579.2.531 Unknown [id number] [id number] Social History Date Type Detail Facility Start: 06-02-2023 End: 07-14-2025 Consumes alcohol Consumes alcohol [facility] Comment on above: socially; occasional; Start: 09-28-2020 End: 05-10-2024 Tobacco smoking status NHIS Never smoked tobacco (finding) [facility] Start: 1960 Sex Assigned At Male F [facility] Tobacco smoking stat [facility] Tobacco smoking consumption unknown [facility] Start: 1960 Sex Assigned At Not on file [facility] Start: 06-02-2023 End: 07-14-2025 Gender identity Not on file [facility] Start: 06-02-2023 End: 05-10-2024 Tobacco use and exposure Smokeless tobacco non-user [facility] National Score (1-10 0), lower number is lower risk 61 [facility] Start: 07-28-2023 Gender identity Identifies as male gender (finding) [facility] Start: 07-28-2023 Sexual orientation Heterosexual (fin ding) [facility] Start: 07-08-2024 End: 07-14-2025 Alcoholic beverage intake Current drinker of alcohol (finding) [facility] Start: 05-10-2024 Alcohol Comment 1/WK [facility] Sex Male (finding) [facility] Functional Status Date Assessment Result Facility 09-08-2024 Functional Status N/A [facility] [place] 07-20-2024 Functional Status N/A [facility] Clinical Notes 05-06-2023 to 07-14-2025 Car Cuellar, [...] (NEURONTIN) 300 mg, 2 times daily HYDROcodone-acetaminophen (Portis) 5-325 MG tablet No dose, route, or frequency recorded. Iron Polysacch Nmryx-S62-VV (Poly-Iron 150 Forte) 150-0.025-1 MG capsule 1 [...] Gluconate (Hibiclens) 4 % solution Iron Polysacch Eswja-A59-IA (Poly-Iron 150 Forte) 150-0.025-1 MG capsule CANCELED: [...] August 25 2 1:30 with [facility] in [place] . documented in this encounter [facility] 04-20-2025 History of Present illness Narrative Images [...] in this patient''s case because of the aoyf-cy-gyac articulation of the patient's knee.. Questions answered in laymen terms at the bedside. The diagnosis, home exercise plan and any ongoing restrictions/ recommendations reviewed. If unable to be reached in office, I recommend evaluation at nearest Emergency Room if any symptoms worsened or new symptoms develop for requiring urgent evaluation. Visit was preformed using [employer]-river pilot speech recognition. documented in this encounter [facility] 03-04-2025 Note [place] [facility] - [facility] Subjective Kim Nichols is [...] and he had carotid stenosis, sister had [place], mother had brain aneurysm ROS All systems [...] twice a day., Disp: , Rfl: HYDROcodone-acetaminophen (Portis) 5-325 mg tablet, Take 1 tablet by [...] and symmetric in (more content not included)... [facility] 02-18-2025 History of Present illness Narrative [...] Current pain management routine includes taking 2 Portis before activity, which is not recommended. Discussed [...] requiring urgent evaluation. Visit was preformed using [employer] speech recognition. documented in this encounter [facility] 09-09-2024 Note Cardiology Clinic No te Chief [...] as needed Richard Benitez MD Interventional Cardiology [facility] 08-30-2024 History of Present illness [...] requiring urgent evaluation. documented in this encounter [facility] 08-16-2024 History of Present illness Narrative Images [...] requiring urgent evaluation. documented in this encounter [facility] 08-16-2024 Instructions ANKITA Stapleton - 08/16/2024 10:00 [...] than 10 mins documented in this encounter [facility] 07-28-2024 Telephone encounter Note Post op pain rx. PDMP reviewed [facility] 07-28-2024 Miscellaneous Notes Post op pain rx. PDMP reviewed documented in this encounter [facility] 07-20-2024 Note General Surgery Offi ce/Clinic Note [...] tab(s), Oral, Ivy (more content not included)... [facility] Comment on above: Result Comment: Elec [...] sign below. Date: documented in this encounter [facility] 07-08-2024 History of Present illness Narrative Images [...] SENT ; CRUTCH TRAIN AND DISPENSE NPAR ([id number], [id number]) Follow up for 08/12 @9AM W/AMANDA IN [place]. documented in this encounter [facility] 06-21-2024 History of Present illness Narrative Images from the original note were not included. HISTORY OF PRESENT ILLNESS: EST PT Kim Nichols is an 63 y.o. @ male. EST PT RECHECK LT KNEE PAIN - POSSIBLY DISCUSS SURGERY- PT WAS GETTING A CARDIAC WORK UP- PT DID SEE DR BENITEZ (WATCH CRYSTAL CUTTER) 06/11/24; PT STATES HE IS CLEARED (OFFICE NOT IS UNDER ENCOUNTER) PT STATES HE WAS ADMITTED TO [facility] FOR A-FIB X 1DAY ~05/17/24 XRAY LT KNEE [facility] 05/10/24 XRAY LT KNEE [facility] 03/12/24 MRI LT KNEE [facility] 04/28/24 CORTISONE INJ 03/2024; TEMP RELIEF [...] Risk (06/11/2024) Received from [facility] Patient History Smoking Tobacco Use: Never Smokeless [...] states that he was cleared per his equipment engineer ; we will need to obtain [...] Elias Thomas D.O. documented in this encounter [facility] 06-11-2024 Note Cardiology Clinic No te Chief [...] without additional cardiac (more content not included)... [facility] 2023 Note HNO ID: [id number] Author: Juan R Ling MD Service: ? [...] issues. 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 [facility] 2023 Note HNO ID: [id number] Author: Bossman Saunders Service: ? Author Type: [...] in [facility] MEDICATIONS: Gabapentin, Portis, Tylenol Have you ever seen a pain [...] completing routine daily living activities? No [facility] 2023 History of Present illness Narrative [...] issues. 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 Author Type: Nurse Practitioner Type: Progress Notes Filed: 08/01/2023 1:30 PM Note Text: SPINE SURGERY ESTABLISHED VISIT This is a virtual visit using [employer] Zoom Video Visit. It required patient-provider interaction for the medical decision making as documented below. DATE OF SERVICE: 08/01/2023 DATE OF LAST VISIT: 06/02/2023 SUBJECTIVE: HPI:Kim Nichols is a 62 year old male presenting via virtual vist s/p Left L5 transforaminal epidural steroid injection on 07/01/[address] Camp. [place] great initially and for the first few days after injection, symptoms returned shortly after. Patient has increased his Gabapentin 300 mg from BID to TID and is feeling good today. 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 Patient notified that [place] will call patient the night before with the time to arrive for injection. Patient verbalized understanding of the following: -Provided education on spine procedure and answered questions related to spine injection procedure. -Regulatory Law Specialist is needed to drive patient home. -NPO [...] to report. Diabetic: No Patient given number [phone], spine injections schedulers, if there is any need to reschedule/ change appointment during normal business hours. Active [employer] users were informed to read MyChart procedure [...] POST INJECTION INSTRUCTIONS documented in this encounter [facility] 06-02-2023 Note HNO ID: [id number] Author: Darren Elizabeth APRN.CLAY STAIN MIXER Service: ? Author Type: Nurse Practitioner Type: [...] with him pain. He also is prescribed Portis for breakthrough pain which he only takes [...] included)... [facility] 06-02-2023 History of Present illness Narrative SPINE [...] with him pain. He also is prescribed Portis for breakthrough pain which he only takes [...] which included preparing to see the patient, [id number] patient care, completing clinical documentation, obtaining and/or reviewing separately obtained history, performing a medically appropriate examination, counseling and educating the patient/family/caregiver, independently interpreting results (not separately reported), and communicating results to the patient/family/caregiver. SIGNATURE: Darren Elizabeth APRN.CNP PATIENT NAME: Kim Nichols DATE: June 02, 2023 TIME: 1:57 PM PAGER: documented in this encounter [facility] 05-14-2023 Note HNO ID: [id number] Author: Ember Delatorre PA-C Service: ? Author Type: Physician Aerospace Technician Type: Progress Notes Filed: 05/14/2023 4:17 PM Note Text: Per Triage: Kim Nichols is a 62 year old male that requests evaluation of lumbar spine. Per review, they have symptoms of back and LLE pain. Positive for numbness. CMT: Medication: Gabapentin, Tylenol, Portis Studies (Reports unless indicated) MRI Lumbar: L4/5 moderate left foramen narrowing which may contribute to patient's symptoms 2. L5/S1 disc protrusion without significant canal or foramen narrowing. Disposition: Please schedule with surgical SANDY. Consider if injection is appropriate or on effective dose of Neurontin. Also see if symptoms correlate with imaging. [facility] 05-14-2023 History of Present illness Narrative Per Triage: Kim Nichols is a 62 year old male that requests evaluation of lumbar spine. Per review, they have symptoms of back and LLE pain. Positive for numbness. CMT: Medication: Gabapentin, Tylenol, Portis Studies (Reports unless indicated) MRI Lumbar: L4/5 [...] Provider or Pain Management Provider at [facility]? No If answer is YES [...] facility where the MRI/CT/myelogram was completed: [facility] [address] [place] [address] MRI/CT/myelogram viewable in Epic: No If not, please provide [phone] to fax in imaging reports for review. Also, please inform patient to hand carry imaging disc to appointment. XR (spine) within 12 months: No If YES, please ask for the name/address of the facility where the XR was completed: Dr. iNx's patients: Have you had previous EMG/Nerve Conduction [...] Additional Comments Hydrocodone documented in this encounter [facility] 05-06-2023 Note HNO ID: [id number] Author: Mauricio Kelley Service: ? Author Type: ? Type: Progress Notes Filed: 05/14/2023 4:17 PM Note Text: Patient name: Kim Nichols Are you being referred by a [place] for Spine Health Provider or Pain Management Provider at [facility]? No If answer is YES [...] facility where the MRI/CT/myelogram was completed: [facility] [address] [place] [address] MRI/CT/myelogram viewable in Epic: No If not, please provide [phone] to fax in imaging reports for review. 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 [facility] Diagnosis Lumbar radiculopathy- Primary Thoracic or lumbosacral neuritis or radiculitis, unspecified Displacement of lumbar intervertebral disc without myelopathy [facility] Diagnosis Meralgia paresthetica of left side- Primary Meralgia paresthetica Chronic midline low back pain without sciatica [facility] Diagnosis Post-op pain- Primary Other acute postoperative pain documented in this encounter [facility]* Diagnosis S/P left knee arthroscopy- Primary documented in this encounter [facility]* Diagnosis S/P left knee arthroscopy- Primary documented in this encounter [facility]* Diagnosis Preop examination- Primary Unspecified pre-operative examination Internal derangement of left knee documented in this encounter [facility]* Diagnosis Internal derangement of left knee- Primary documented in this encounter [facility]* Diagnosis Internal derangement of left knee- Primary Need for crutch training documented in this encounter [facility]* Diagnosis Acute pain of left knee- Primary Arthritis of left knee Knee instability, left documented in this encounter [facility]* Diagnosis Acute pain of [...] to their favorable impact on blood pressure andcholesterol.[facility] 250 DO Work Phone: History of [...] to call if they arise or occur. [facility] Work Phone: History of Present illness [...] to call if they arise or occur. [facility] 250 DO Work Phone: Hospital Discharge instructions No data available for this section [facility] General Surgery Fern Progress note No data available for this section [facility] Surgery Fern Reason for referral (narrative)* Diagnostic Procedure Only (Routine) - Pending Review Specialty Diagnoses / Procedures Referred By Erlinda mao Referred To Contact XR IMAGING Diagnoses Meralgia paresthetica of left side Procedures XR LUMBAR MOTION 4V AP/LAT/ FLEX/EXT RADEX SPINE LUMBOSACRAL MINIMUM 4 VIEWS Juan R Ling MD [address] [place] [address] [place] [address] Referral ID Status Reason Start Date Expiration Date Visits Requested Visits Authorized [id number] Pending Review Auto-Generat ed Referral 2023 09/02/2024 1 1 [facility] for referral (narrative)* Consultation (Routine) - Pending Review Specialty Diagnoses / Procedures Referred By Erlinda mao Referred To Contact Physical Therapy Diagnoses Internal derangement of left knee Procedures [place] OFFICE/OUTPATIENT NEW HIGH MDM 60 MINUTES Car Cuellar PA [address] [place] [address] [facility] [address] [place] [address] Referral ID Status Reason Start Date Expiration Date Visits Requested Visits Authorized [id number] Pending Review Consult and Treat 07/01/2024 12/28/2024 1 1 [facility]No reason for referral information [facility] Work Phone: Summary Purpose Family History [...] DATE CREATED AUTHOR AUTHOR'S ORGANIZ ATION 05/14/2023 [facility] DATE CREATED AUTHOR AUTHOR'S ORGANIZ ATION 05/14/2023 [employer] DATE CREATED AUTHOR AUTHOR'S ORGANIZ ATION 2023 [facility] DATE CREATED AUTHOR AUTHOR'S ORGANIZ ATION 08/05/2023 [facility] DATE CREATED AUTHOR AUTHOR'S ORGANIZ ATION 09/10/2024 [facility] DATE CREATED AUTHOR AUTHOR'S ORGANIZ ATION 03/06/2025 [facility] DATE CREATED AUTHOR AUTHOR'S ORGANIZ ATION 07/10/2025 [facility] DATE CREATED AUTHOR AUTHOR'S ORGANIZ ATION 07/15/2025 [facility] EPIC DATE CREATED AUTHOR AUTHOR'S ORGANIZ ATION 07/17/2025 [facility] Care Teams (unrecognized sec tion [...] End: August 25, 2024 Rell Adamson MD [facility] Attending Provider Active Start: August 25, 2024 End: August 25, 2024 Team Status: Inactive Member Role Status Dates Avi Yepez MD Primary Care Provider Active Bijan Betts Jr, DO Attending Provider Active Foreign Correspondent Relationship Specialty Start Date End Date Avi Yepez MD [address] [place] [facility] [place] [address] Referring Family Medicine 04/24/23 Foreign Correspondent Relationship Specialty Start Date End Date Avi Yepez MD [address] [place] [facility] [place] [address] Referring Family Medicine 04/24/23 Foreign Correspondent Relationship Specialty Start Date End Date Avi Yepez MD [address] [place] [facility] [place] [address] Referring Family Medicine 04/24/23 Foreign Correspondent Relationship Specialty Start Date End Date Avi Yepez MD [address] [place] [facility] [place] [address] PCP - General Family Medicine 06/25/23 Avi Yepez MD [address] [place] [facility] [place] [address] Referring Family Medicine 04/24/23 Foreign Correspondent Relationship Specialty Start Date End Date Avi Yepez MD [address] [place] [facility] [place] [address] PCP - General Family Medicine 06/25/23 Avi Yepez MD [address] [place] [facility] [place] [address] Referring Family Medicine 04/24/23 Foreign Correspondent Relationship Specialty Start Date End Date Avi Yepez MD [address] [place] [facility] [place] [address] PCP - General Family Medicine 06/25/23 Avi Yepez MD [address] [facility] [place] [address] Referring Family Medicine 04/24/23 Foreign Correspondent Relationship Specialty Start Date End Date Avi Yepez MD [address] [facility] [address] PCP - General 05/05/24 Foreign Correspondent Relationship Specialty Start Date End Date Avi Yepez MD [address] [facility] [address] PCP - General 05/05/24 Foreign Correspondent Relationship Specialty Start Date End Date Avi Yepez MD [address] [facility] [address] PCP - General 05/05/24 Foreign Correspondent Relationship Specialty Start Date End Date Avi Yepez MD [address] [facility] [address] PCP - General 05/05/24 Foreign Correspondent Relationship Specialty Start Date End Date Avi Yepez MD [address] [facility] [address] PCP - General 05/05/24 Foreign Correspondent Relationship Specialty Start Date End Date Avi Yepez MD [address] [facility] [address] PCP - General 05/05/24 Foreign Correspondent Relationship Specialty Start Date End Date Avi Yepez MD [address] [facility] [address] PCP - General 05/05/24 Foreign Correspondent Relationship Specialty Start Date End Date Avi Yepez MD [address] [facility] PCP - General 05/05/24 Foreign Correspondent Relationship Specialty Start Date End Date Avi Yepez MD [address] [facility], [facility] PCP - General 05/05/24 Foreign Correspondent Relationship Specialty Start Date End Date Avi Yepez MD [address] [facility], [facility] PCP - General 05/05/24 Foreign Correspondent Relationship Specialty Start Date End Date Avi Yepez MD PCP - General 05/05/24 Foreign Correspondent Relationship Specialty Start Date End Date Avi Yepez MD PCP - General 05/05/24 Foreign Correspondent Relationship Specialty Start Date End Date Avi Yepez MD [address] [facility] [address] PCP - General Family Medicine 06/17/25 Foreign Correspondent Relationship Specialty Start Date End Date Avi Yepez MD [address] [place] [address] PCP - General Family Medicine 06/17/25 Foreign Correspondent Relationship Specialty Start Date End Date Avi Yepez MD [address] [place] [address] PCP - General Family Medicine 06/17/25 Team Status: Inactive Member Role Status Dates Car Cuellar PA-C Attending Provider Active Start: July 15, 2025 End: July 15, 2025 Foreign Correspondent Relationship Specialty Start Date End Date Avi Yepez MD [address] [place] [address] PCP - General Family Medicine 06/17/25 Goals [...] or prosecute any alcohol or drug abuse patient.[facility] Hospital[facility] the event this information is protected by the Federal Confidentiality of Alcohol and Drug Abuse Patient Records regulations: The Federal rules restrict any use of the information to criminally investigate or prosecute any alcohol or drug abuse patient.[facility] Hospital[facility] the event this information is protected by the Federal Confidentiality of Alcohol and Drug Abuse Patient Records regulations: The Federal rules restrict any use of the information to criminally investigate or prosecute any alcohol or drug abuse patient.[facility] the event this information is protected by the Federal Confidentiality of Alcohol and Drug Abuse Patient Records regulations: The Federal rules restrict any use of the information to criminally investigate or prosecute any alcohol or drug abuse patient.[facility] the event this information is protected by the Federal Confidentiality of Alcohol and Drug Abuse Patient Records regulations: The Federal rules restrict any use of the information to criminally investigate or prosecute any alcohol or drug abuse patient.[facility] HospitalIn the event this information is protected by the Federal Confidentiality of Alcohol and Drug Abuse Patient Records regulations: The Federal rules restrict any use of the information to criminally investigate or prosecute any alcohol or drug abuse patient.[facility] Reason for Visit (unrecogniz ed section and content) Reason Comments New Patient Reason Comments Preparations For Procedures Pre-injectio n instructions Reason Comments Low Back Pain New Patient Evaluation Reason Comments Pain Post-op Reason Comments Pain Reason Comments Pain Specialty Diagnoses / Procedures Referred By Contac t Referred To Contact Physical Therapy Diagnoses Internal derangement of left knee Procedures [place] OFFICE/OUTPATIENT NEW HIGH MDM 60 MINUTES Car Cuellar, PA [address] [facility] [address] [place] [address] Maria E Peck, EFRA Referral ID Status Reason Start Date Expiration Date Visits Requested Visits Authorized [id number] Authorized Consult and Treat 07/01/2024 12/28/2024 60 [...] BE BASED ON THE PRIMARY CLINICAL RECORDS. [facility]. provides no warranty or guarantee of the accuracy or completeness of information in this document.
== END 2025-07-29 07:58 | disposition home or self-care (01) ==
LOC: NM 07:57
PROVIDERS: PCP Family Medicine; Visit Provider Family Medicine
DX: R07.9 Chest pain, unspecified (principal)

== ENCOUNTER 2025-08-01 08:07 | Day surgery (SDC) | payer OTHER, SELFPAY ==
--- OUTSIDE RECORDS SUMMARY | 2025-08-01 08:13 | XMS_ITS | CCD ---
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 Organ Mechanic Apprentice Name Role Phone Unavailable Unavailable DR AVI [...] Care Provider MD Rell Adamson Attending Provider [phone] Rell ADAMSON Attending Unavailable Rell ADAMSON Attending Unavailable Rell ADAMSON Attending Unavailable RICHARD BENITEZ Attending Unavailable RICHARD BENITEZ Attending Unavailable CJ MOHAMUD Attending Unavailable Avi Yepez MD Primary Care Provider Avi Yepez MD Primary Care Provider [phone] Jam LANDA, Evelyne Bradley Attending Unavailable Jam LANDA, Evelyne Bradley Attending Unavailable Jam LANDA, Evelyne Bradley Attending Unavailable Avi Yepez MD Primary Care Provider [phone] Car Cuellar PA-C Attending Provider [phone] CAR CUELLAR Attending Unavailable JR. THOMAS GEORGE [...] Translations: [amoxicillin] Drug Allergy [address] [facility] (1 source) Amoxicillin Drug Allergy [facility] (1 source) traMADol Drug Allergy [facility] (3 sources) Penicillin; Translations: [penicillin] Drug Allergy Weal (disorder) [facility] [place] (20 sources) traMADol; Translations: [TRAMADOL] Drug Allergy [address] [facility] (1 source) Amoxicillin Drug Allergy [address] [facility] Medications Current Medications Medication Drug Class(es) Dates Sig (Normalized) Sig (Original) acetaminophen 325 mg / HYDROcodone bitartrate 5 mg oral tablet (20 sources) Opioid Agonist Start: 07-08-2024 take 1 tablet by mouth twice daily as needed for pain New Creek 325 mg-5 mg oral tablet 1 tab(s), Oral, BID as needed for pain, Refill(s) 0 Start Date: 07/08/24 Status: Ordered Start: 03-29-2024 End: 06-21-2024 take 1 tablet by mouth every twelve hours HYDROcodone-acetaminophen (New Creek) 5-325 MG tablet Take 1 tablet by mouth every 12 (twelve) hours 03/29/2024 06/21/2024 Discontinued (Therapy completed) Start: 09-26-2020 End: 07-31-2024 take 1 tablet by mouth every six hours as needed for headache HYDROcodone-acet aminophen ([place]) 5-325 MG tablet Active [place] Creek 5-325 MG T ABS TAKE 1 TABLET [...] tablet by mouth once daily Iron Polysacch Nqqlr-S97-NM (Poly-Iron 150 Forte) 150-0.025-1 MG capsule Indications: [...] [Coronary atherosclerosis of unspecified type of vessel, little river or graft] Onset: 03-04-2025 07-08-2024 Chronic [...] [Mass/Vol] 3.9 g/dL 3.4 - 5.0 g/dL [facility] ALBUMIN GLOBULIN RATIO 1 [facility] ALP [Catalytic activity/Vol] 63 U/L 46 - 116 U/L [facility] ALT [Catalytic activity/Vol] 33 U/L 16 - 63 U/L [facility] Anion gap [Moles/Vol] 10.6 mmol/L [facility] AST [Catalytic activity/Vol] 21 U/L 15 - 37 U/L [facility] Bilirubin [Mass/Vol] 1.1 mg/dL High 0.2 - 1.0 mg/dL [facility] Calcium [Mass/Vol] 9.4 mg/dL 8.5 - 10. 1 mg/dL [facility] Chloride [Moles/Vol] 103 mmol/L 98 - 107 mmol/L [facility] CO2 [Moles/Vol] 30 mmol/L 21.0 - 32.0 mmol/L [facility] Creatinine [Mass/Vol] 1.16 mg/dL 0.70 - 1.30 mg/dL [facility] GFR/1.73 sq M.predicted CKD-EPI (S/P/Bld) [Vol rate/Area] >60 >=60 mL/min/1.73 m 2 [facility] Globulin (S) [Mass/Vol] 4.1 g/dL [facility] Glucose [Mass/Vol] 116 mg/dL High 74 - 106 mg/dL [facility] Interpretation and review of laboratory results Abnormal [facility] Potassium [Moles/Vol] 3.6 mmol/L 3.5 - 5.1 mmol/L [facility] Protein [Mass/Vol] 8 g/dL 6.4 - 8.2 g/dL [facility] Sodium [Moles/Vol] 140 mmol/L 136 - 145 mmol/L [facility] TBH EGFR-NON AF GERMAN >60 >=60 mL/min/1.73 m 2 [facility] Urea nitrogen [Mass/Vol] 14 mg/dL 7.0 - 18.0 mg/dL [facility] Urea nitrogen/Creatinin e [Mass ratio] 12.1 mg/mg [facility] ECG 12-LEADon 07-15-2025 [place] [address] Electrocardiograph Report Signed Patient: KIM NICHOLS MR#: [id number] : 1960 Acct:[id number] Age/Sex: 64 / M ADM Date: 07/15/25 Loc: LAB Attending Dr: Car LUCIANO Ordering Physician: Car Cuellar Date of Service: 07/15/25 Procedure(s): ECG 12 lead Accession Number(s): [id number] cc: [facility] Test Date: 2025-07-15 Pat Name: KIM NICHOLS Department: Room: - 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 Measurements Intervals [place] Rate: 71 P: 18 CT: 165 QRS: -12 QRSD: 87 T: 19 QT: 374 QTc: 407 Interpretive Statements SINUS RHYTHM LOW QRS VOLTAGE IN PRECORDIAL LEADS [QRS DEFLECTION < 1.0 mV IN CHEST LEADS] Abnormal ECG Compared to ECG 05/07/2024 12:44:31 No significant changes Electronically Signed On 07-15-2025 20:02:29 EDT by ELIAS ANN M.D. 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 Measurements Intervals [place] Rate: 71 P: 18 CT: 165 QRS: -12 QRSD: 87 T: 19 QT: 374 QTc: 407 Interpretive Statements SINUS RHYTHM LOW QRS VOLTAGE IN PRECORDIAL LEADS [QRS DEFLECTION < 1.0 mV IN CHEST LEADS] Abnormal ECG Compared to ECG 05/07/2024 12:44:31 No significant changes Electronically Signed On 07-15-2025 20:02:29 EDT by ELIAS ANN M.D. Dictated By: ELIAS ANN Signed By: 07/15/25200107/15/252001 DD/ 105 TD/TT: Fire Chief: [facility] Radiology Study observation (narrative) [facility] ECG 12-LEADOrdered By: [employer] Testingt Radiology on 07-15-2025 [facility] Work Phone: Urine Cultureon 07-15-2025 Bacteria identified Cx Nom (U) No Growth 2 Days PERFORMED BY: [place] [address] PATHOLOGIST MOLD MAINTENANCE TECHNICIAN DOLORES RODRÍGUEZ M.D. Normal [facility] Comment on above: Performed By: #### C UU #### [address] X-ray reportOrdered By: Ángel Huerta on 07-14-2025 Study report [facility] Main [place] [address] [place] [address] XRay Report Signed Patient: Kim Nichols MR#: [id number] : 1960 Acct:[id number] Age/Sex: 64 / M ADM Date: 5 Loc: XDS Room: Type: [facility] Attending Dr: Car Cuellar PA-C Copies to: Car Cuellar PA-C~ Ordering Provider: Car Cuellar PA-C Date of Service: 07/14/25 XR/XR femur BI: PRE OP ([id number]) XR/XR tibia/fibula BI: PRE OP History: Preop assessment for left total knee arthroplasty. Plain film imaging of the femurs. Adequate alignment. No acute displaced fracture. The right greater trochanter out of the field of view. No significant hip degeneration. Extensive left knee medial dinh-re-xwdp contact degeneration. Unremarkable right knee. Plain film imaging of the tibia and fibula bilaterally. No acute displaced fracture. Adequate ankle joints. XR/XR tibia/fibula BI IMPRESSION: Extensive left and medial nitg-jt-oydl contact the degeneration. Unremarkable hips. Unremarkable ankles. Impression dictated by: Tom Huerta M.D. 07/14/2025 4:10 PM Dictation Location: [facility] Transcribed By: [facility] 07/14/25 1610 Dictated By: Tom Huerta DO 07/14/25 1608 Signed By: 07/14/[address] [facility] XR femur BIon 07-14-2025 XR femur BI [facility] Main [address] [address] XRay Report Signed Patient: Kim Nichols MR#: [id number] : 1960 Acct:[id number] Age/Sex: 64 / M ADM Date: 07/14/25 Loc: XDS Room: Type: [facility] Attending Dr: Car Cuellar PA-C Copies to: Car Cuellar PA-C Ordering Provider: Car Cuellar PA-C Date of Service: 07/14/25 XR/XR femur BI: PRE OP ([id number]) XR/XR tibia/fibula BI: PRE OP History: Preop assessment for left total knee arthroplasty. Plain film imaging of the femurs. Adequate alignment. No acute displaced fracture. The right greater trochanter out of the field of view. No significant hip degeneration. Extensive left knee medial xbew-ud-wkgs contact degeneration. Unremarkable right knee. Plain film imaging of the tibia and fibula bilaterally. No acute displaced fracture. Adequate ankle joints. XR/XR tibia/fibula BI IMPRESSION: Extensive left and medial fdvn-sp-cgdf contact the degeneration. Unremarkable hips. Unremarkable ankles. Impression dictated by: Tom Huerta M.D. 07/14/2025 4:10 PM Dictation Location: [place] [address] Transcribed By: [facility] 07/14/25 1610 Dictated By: Tom Huerta DO 07/14/25 1608 Signed By: 07/14/25 1610 Normal [facility] Office Visiton 03-04-2025 Follow-up visit [id number] Kim Nichols 1960 M Date Provider Department Center 03/04/2025 [id number] Family History Problem Relation Age of Onset Brain Aneurysm Mother Stroke Father Heart attack Sister Family Status - Relation Status Age at Mother Father Sister Level of Service:[address] CT OFFICE/OUTPATIENT ESTABLISHED LOW MDM 20 MIN Reason for Visit and Comments: Coronary Artery Disease [187] - Denies SOB. Atrial Fibrillation [80] - On Eliquis, denies bleeding. Denies palpitations and syncope. Hyperlipidemia [182] - Had lipid panel in May 2024. On rosuvastatin. Hypertension [698997] Chest Pain [477881] - Intermittent, blames his hiatal hernia and back pain. Normal [facility] No Panel Informationon 02-18 ANKITA Stapleton [...] draped in the usual sterile fashion. [facility] Office Visiton 09-09-2024 Follow-up visit [id number] Kim Nichols 1960 M Date Provider Department Center 09/09/2024 3848-RICHARD BENITEZ [facility] Family History Problem Relation Age of Onset Brain Aneurysm Mother Stroke Father Heart attack Sister Family Status - Relation Status Age at Mother Father Sister Level of Service:86635 CT OFFICE/OUTPATIENT ESTABLISHED LOW MDM 20 MIN Normal [facility] Ambulatory Visit Summaryon 1 11-08-2023 Ambulatory Visit Summary Ambulatory Visit Summary KIM NICHOLS :1960 Visit Date:09/08/2024 Ambulatory Visit Instructions Your Care Team Attending Physician - SNOW LANDA, Rell Marr Primary Care Physician - Avi Yepez MD This Is Your Medications List acetaminophen-hydrocodone ([place] 325 mg-5 mg oral tablet) apixaban (Eliquis [...] What How Much When Instructions Unchanged acetaminophen-hydrocodone ([place] 325 mg-5 mg oral tablet) 1 Tablets [...] for choosing us for your care. Normal [facility] General Surgery Office/Clini c Noteon 09-08-2024 General [...] Tab, 25 mg= 1 tab(s), Oral, BID [place] 325 mg-5 mg oral tablet, 1 tab(s), [...] virus vaccine, inactivated 09/12/2023 Recorded SARS-CoV-2 (COVID-19) [id number].[id number] 10/14/2022 Recorded influenza virus vaccine, inactivated 10/03/2022 Recorded SARSCoV2 mRNA(ktdhtuppw-paic-fhuhek) vac 03/22/2022 Recorded SARS-CoV-2 (COVID-19) mRNA BNT-162b2 vax 09/03/2021 Recorded influenza virus vaccine, inactivated 08/25/2021 Recorded SARS-CoV-2 (COVID-19) mRNA BNT-162b2 vax 02/13/2021 Recorded SARS-CoV-2 (COVID-19) mRNA BNT-162b2 vax 01/20/2021 Recorded SARS-CoV-2 (COVID-19) mRNA BNT-162b2 vax 01/13/2021 Recorded SARS-CoV-2 (COVID-19) mRNA BNT-162b2 vax 12/23/2020 Recorded influenza virus vaccine, inactivated 08/28/2020 Recorded Normal [facility] Comment on above: Result Comment: Elec tronically Signed By: SNOW LANDA, Rell Marr\.br\Date and Time Signed: 09/08/24 16:32 EST Reminderson 08-26-2024 Reminders Reminders From: María Ayala LPN To: N - Clinical; Sent: 08/26/2024 11:53:39 EDT Show up: 07/26/2034 07:00:00 EDT Subject: colonoscopy recall Due Date/Time: 08/25/2034 07:00:00 EDT Reminder/Recall Patient due for screening colonoscopy 08/25/2034. Normal [facility] Pathology Request for Lab Co rpon 08-25-2024 Pathology Request for Lab Le Normal [facility] Comment on above: Order Comment: PATHO LOGY GI SPECIMEN Result Comment: See report. Scanned copy available in EMR. PERFORMED BY: [place] [address] PATHOLOGIST MOLD MAINTENANCE TECHNICIAN MICHAEL LEMUS M.D. Performed By: #### P ATH TO [facility] #### [address] Ambulatory Visit Summaryon 0 07-20-2024 Ambulatory [...] prescribing physician if questions or concerns acetaminophen-hydrocodone ([place] 325 mg-5 mg oral tablet) apixaban (Eliquis [...] What How Much When Instructions Unchanged acetaminophen-hydrocodone ([place] 325 mg-5 mg oral tablet) 1 Tablets [...] for choosing us for your care. Normal [facility] ALL CBC WITH AUTO DIFFon BASOPHILS ABSOLUTE AUTO 0.0 [facility] Basophils/100 WBC (Bld) 0.5 % 0.2 - 2.0 % [facility] Eosinophils/100 WBC (Bld) 3.0 % 0.9 - 7.0 % [facility] Erythrocyte distribution width (RBC) [Ratio] 13.9 % 11.0 - 15.0 % [facility] Hematocrit (Bld) [Volume fraction] 46.2 % 42.0 - 54.0 % [facility] Hemoglobin (Bld) [Mass/Vol] 15.6 g/dL 14.0 - 18.0 g/dL [facility] IMMATURE GRANULOCYTES ABS AUTO 0.03 [facility] Immature granulocytes/100 WBC (Bld) 0.5 % 0.0 - 0.5 % [facility] LYMPHOCYTES ABSOLUTE AUTO 1.4 [facility] Lymphocytes/100 WBC (Bld) 22.3 % 20.5 - 60.0 % [facility] MCH (RBC) [Entitic mass] 28.9 pg 25.9 - 34.0 pg [facility] MCHC (RBC) [Mass/Vol] 33.8 g/dL 29.9 - 35.2 g/dL [facility] MCV (RBC) [Entitic vol] 85.7 fL 80.0 - 94.0 fL [facility] MONOCYTES ABSOLUTE AUTO 0.7 [facility] Monocytes/100 WBC (Bld) 11.6 % 1.7 - 12.0 % [facility] NEUTROPHILS ABSOLUTE AUTO 4.0 [facility] Neutrophils/100 WBC (Bld) 62.1 % 43.0 - 75.0 % [facility] Platelet mean volume (Bld) [Entitic vol] 10.5 fL 9.5 - 13.5 fL [facility] TBH EO # 0.2 [facility] TB PLT 246 [facility] TB RBC 5.39 [facility] TB WBC 6.4 [facility] Office Visiton 06-11-2024 Follow-up visit [id number] Kim Nichols 1960 M Date Provider Department [place] 06/11/2024 3848-RICHARD BENITEZ Hos Family History Problem Relation Age of Onset Brain Aneurysm Mother Stroke Father Heart attack Sister Family Status - Relation Status Age at Mother Father Sister Level of Service:58456 CT OFFICE/OUTPATIENT NEW MODERATE MDM 45 MINUTES Reason for Visit and Comments: New Patient [Other] - CHEST PAIN/AFIB Normal [facility] CNOVon 2023 CNOV Office Visit ([facility] ) KIM NICHOLS ([id number]) 1960 M Date Time Provider Department 08/04/23 [...] opioids Medications: See medication reconciliation list in [facility] MEDICATIONS: Gabapentin, [place], Tylenol Have you ever seen a pain [...] issues. 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 [facility] 07-08-2023 [facility] Telephone (SPNMMN) KIM NICHOLS ([id number]) 1960 Date Time Provider Department 07/08/23 [facility] During your visit today, we recorded the following information about you: Stacy Gallagher RN 07/08/2023 12:56 PM Signed Post Spine Injection phone call: [phone] on 07/08/23 Patient denies fever, chills, new [...] appointment 2-4 weeks post procedure by calling [phone] Patient does not have any questions or [...] Encounter Status:Closed by STACY GALLAGHER on 07/08/23 [facility] HISTORY PHYSICALon HISTORY PHYSICAL HNO ID: [id number] Author: Sherice Galvin APRN.SALES REPRESENTATIVE MEATS Service: ? 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 Pain is [...] stable condition. DO Fátima Castrejon [facility] Nina 06-26-2023 [facility] (SPNMM[facility] KIM NICHOLS ([id number]) 1960 M Date Time Provider Department 06/26/23 [facility] During your visit today, we recorded the following information about you: Oscar Rollins LPN 06/26/2023 9:20 AM Signed Phoned patient and message left for Kim to confirm appointment for Kim Nichols for spine procedure on 07/01/2023. Patient notified that [facility] will call patient the night before with the time to arrive for injection. Patient verbalized understanding of the following: -Provided education on spine procedure and answered questions related to spine injection procedure. -Feeder Driver is needed to drive patient home. -NPO [...] to report. Diabetic: No Patient given number [phone], spine injections schedulers, if there is any need to reschedule/ change appointment during normal business hours. Active [employer] users were informed to read [employer] procedure instructions prior to appointment. AMBULATORY PATIENT [...] Encounter Status:Closed by OSCAR ROLLINS on 06/26/23 [facility] CNOVon 06-02-2023 CNOV Office Visit (SPNSMN ) KIM NICHOLS ([id number]) 1960 M Date Time Provider Department 06/02/23 1:40 PM DARREN [facility]ABETHMN During your visit today, we recorded the following information about you: Pulse Respiration Blood pressure Weight 63/minute 18/minute 128/84 117 kg Height 1.829 m Darren Elizabeth, KRYS.SALES REPRESENTATIVE MEATS 06/03/2023 1:01 PM Signed SPINE SURGERY OUTPATIENT [...] with him pain. He also is prescribed New Creek for breakthrough pain which he only takes [...] (more content not included)... Normal [facility] Office Visit (Cardiology)on 05-13-2023 Follow-up [...] Weight Tips; Status:Complete - Retrospective Authorization; Done: [id number] Some eating tips that can help you lose weight.; Status:Complete - Retrospective Authorization; Done: [id number] Coronary disease, Hyperlipidemia Renew: Aspirin EC Low Dose 81 MG Oral Tablet Delayed Release; TAKE 1 TABLET DAILY DIRECTED Hyperlipidemia Renew: Rosuvastatin Calcium 20 MG Oral Tablet; take 1 tablet by mouth at bedtime SocHx: Never a smoker Tobacco Use Screening; Status:Complete; Done: [id number] Patient Instructions Please bring all medicines, vitamins, [...] MG Oral CapsuleTAKE 1 CAPSULE TWICE DAILY. New Creek 5-325 MG TABSTAKE 1 TABLET EVERY 4 [...] negative for complaint. Vitals Vital Signs Recorded: [id number] 11:22AM Heart Rate64, R Radial Qrpyqdfk670, RUE, Sitting Vsnexmpet25, RUE, Sitting Height6 ft Zwgmfm407 lb BMI Jyqsrqjfrx36.21 kg/m2 BSA Calculated2.41 Tobacco Useb) No PHQ-2 [...] Screening.on 023 Adult depression screening assessment No [facility] [address] DO Work Phone: Tobacco use status [facility] b) No [facility] [address] DO Work Phone: Tobacco Screening.on 022 Adult depression screening assessment No -[facility] [address] DO Work Phone: Fall risk assessment c) Not medically indicated [facility] [address] DO Work Phone: Tobacco use status [facility] b) No -[facility] [address] DO Work Phone: H PYLORI ANTIBODY IGGon 11-28 H. PYLORI IGG ABS 0.45 Index Value Normal 0.00-0.79 T [facility] Comment on above: Result Comment: Nega tive <0.80 Equivocal 0.80 - 0.89 Positive >0.89 Performed By: #### L IPID, TSH, T7, URIC, CMP #### [facility] [address] [place] [address] [address] Conor Chan INSULINon 12-21-2021 Insulin 55.2 uIU/mL Critically high 2.6-24.9 [facility] Comment on above: Performed By: #### I NSULIN #### [facility] [address] [place] [address] [address] Conor Chan TESTOSTERONE, TOTALon 2021 Testosterone [Mass/Vol] 380 ng/dL Normal 264-916 [facility] Comment on above: Result Comment: Adul t male reference interval is based on a population of healthy nonobese males (BMI <30) between 19 and 39 years old. román Cool.al. JCEM 2017,102;6947-5696. PMID: [id number]. Performed By: #### L IPID, TSH, T7, URIC, CMP #### [facility] [address] [place] [address] [address] Conor Chan CBC AUTO DIFFon 12-20-2021 BASO # 0.0 103/ul Normal 0.0-0.1 [facility] Comment on above: Performed By: #### C BC #### [facility] [address] [place] [address] [address] Conor Chan Basophils/100 WBC (Bld) 0.5 % Normal 0.2-2.0 [facility] Comment on above: Performed By: #### C BC #### [facility] [address] [place] [address] [address] Conor Chan EO # 0.2 103/ul Normal 0.0-0.7 [facility] Comment on above: Performed By: #### C BC #### [facility] [address] [place] [address] [address] Conor Chan Eosinophils/100 WBC (Bld) 3.5 % Normal 0.9-7.0 [facility] Comment on above: Performed By: #### C BC #### [facility] [address] [place] [address] [address] Conor Chan Erythrocyte distribution width (RBC) [Ratio] 13.8 % Normal 11.0-15.0 [facility] Comment on above: Performed By: #### C BC #### [facility] [address] [place] [address] [address] Conor Chan Hematocrit (Bld) [Volume fraction] 48.5 % Normal 42.0-54.0 [facility] Comment on above: Performed By: #### C BC #### [facility] [address] [place] [address] [address] Conor Chan Hemoglobin (Bld) [Mass/Vol] 16.3 g/dL Normal 14.0-18.0 [facility] Comment on above: Performed By: #### C BC #### [facility] [address] [place] [address] [address] Conor Chan IG # 0.02 10e3/ul Normal 0.00-0.03 [facility] Comment on above: Performed By: #### C BC #### [facility] [address] [place] [address] Dr. Conor Chan IG % 0.3 % Normal 0.0-0.5 [facility] Comment on above: Performed By: #### C BC #### [facility] [address] [place] [address] Dr. Conor Chan LYMPH # 1.4 103/ul Normal 1.2-3.8 [facility] Comment on above: Performed By: #### C BC #### [facility] [address] [place] [address] Dr. Conor Chan Lymphocytes/100 WBC (Bld) 21.7 % Normal 20.5-60.0 [facility] Comment on above: Performed By: #### C BC #### [facility] [address] [place] [address] Dr. Conor Chan MANUAL DIFF REQ NO Normal [facility] Comment on above: Performed By: #### C BC #### [facility] [address] [place] [address] Dr. Conor Chan MCH (RBC) [Entitic mass] 28.5 pg Normal 25.9-34.0 [facility] Comment on above: Performed By: #### C BC #### [facility] [address] [place] [address] Dr. Conor Chan MCHC (RBC) [Mass/Vol] 33.6 g/dL Normal 29.9-35.2 [facility] [place] Comment on above: Performed By: #### C BC #### [facility] [address] [place] [address] Dr. Conor Chan MCV (RBC) [Entitic vol] 84.9 fL Normal 80.0-94.0 [facility] Comment on above: Performed By: #### C BC #### [facility] [address] [place] [address] Dr. Conor Chan MONO # 0.6 103/ul Normal 0.3-0.8 [facility] [place] Comment on above: Performed By: #### C BC #### [facility] [address] [place] [address] Dr. Conor Chan Monocytes/100 WBC (Bld) 9.3 % Normal 1.7-12.0 [facility] [place] Comment on above: Performed By: #### C BC #### [facility] [address] [place] [address] Dr. Conor Chan NEUT # 4.1 103/ul Normal 1.4-6.5 [facility] Comment on above: Performed By: #### C BC #### [facility] [address] [place] [address] Dr. Conor Chan Neutrophils/100 WBC (Bld) 64.7 % Normal 43.0-75.0 [facility] [place] Comment on above: Performed By: #### C BC #### [facility] [address] [place] [address] Dr. Conor Chan Platelet mean volume (Bld) [Entitic vol] 9.8 fL Normal 9.5-13.5 [facility] [place] Comment on above: Performed By: #### C BC #### [facility] [address] [place] [address] Dr. Conor Chan PLT 235 103/ul Normal 150-450 [facility] Comment on above: Performed By: #### C BC #### [facility] [address] [place] [address] Dr. Conor Chan RBC 5.71 106/ul Normal 4.70-6.10 [facility] Comment on above: Performed By: #### C BC #### [facility] [address] [place] [address] Dr. Conor Chan WBC 6.4 103/ul Normal 4.0-11.0 [facility] Comment on above: Performed By: #### C BC #### [facility] [address] [place] [address] Dr. Conor Chan FREE THYROXINE INDEX T7on FTI 2.89 Normal [facility] Comment on above: Performed By: #### L IPID, TSH, T7, URIC, CMP #### [facility] [address] [place] [address] Dr. Conor Chan T3U 34.0 % Normal 23.5-40.5 [facility] [place] Comment on above: Performed By: #### L IPID, TSH, T7, URIC, CMP #### [facility] [address] [place] [address] Dr. Conor Chan T4 [Mass/Vol] 8.50 ug/dL Normal 5.53-11.00 [facility] Comment on above: Performed By: #### L IPID, TSH, T7, URIC, CMP #### [facility] [address] [place] [address] Dr. Conor Chan GLYCOHEMOGLOBIN A1Con 2021 ADA RECOMMENDATION ADA THERAPEUTIC TARG ET 6.0 - 7.0 ACTION SUGGESTED > 7.0 Normal [facility] [place] Comment on above: Performed By: #### A 1C #### [facility] [address] [place] [address] Dr. Conor Chan Glucose [Mass/Vol] 126 mg/dL Normal [facility] Comment on above: Performed By: #### A 1C #### [facility] [address] [place] [address] Dr. Conor Chan HbA1c (Bld) [Mass fraction] 6.0 % Normal <=6.0 [facility] [place] Comment on above: Performed By: #### A 1C #### [facility] [address] [place] [address] Dr. Conor Chan LIPID PROFILEon 12-20-2021 CHOL-HDL RATIO NORM SEE BELOW Normal [facility] [place] Comment on above: Result Comment: 3.3 - 4.4 LOW RISK 4.4 - 7.1 AVERAGE RISK 7.1 - 11.0 MODERATE RISK >11.0 HIGH RISK Performed By: #### L IPID, TSH, T7, URIC, CMP #### [facility] [address] [place] [address] Dr. Conor Chan Cholesterol [Mass/Vol] 161 mg/dL Normal <=200 [facility] [place] Comment on above: Performed By: #### L IPID, TSH, T7, URIC, CMP #### [facility] [address] [address] [address] Conor Chan Cholesterol in HDL [Mass/Vol] 50 mg/dL Normal [facility] [place] Comment on above: Performed By: #### L IPID, TSH, T7, URIC, CMP #### [facility] [address] [address] [address] Conor Chan Cholesterol in LDL [Mass/Vol] 96.0 mg/dL Normal [facility] [place] Comment on above: Performed By: #### L IPID, TSH, T7, URIC, CMP #### [facility] [address] [address] [address] Conor Chan Cholesterol.total/ Cholesterol in HDL [Mass ratio] 3.2 {ratio} Normal [facility] [place] Comment on above: Performed By: #### L IPID, TSH, T7, URIC, CMP #### [facility] [address] [address] [address] Conor Chan HDL NORMAL > or = 60 mg/dl - LO W CARDIOVASCULAR RISK <40 mg/dl - HIGH CARDIOVASCULAR RISK Normal [facility] [place] Comment on above: Performed By: #### L IPID, TSH, T7, URIC, CMP #### [facility] [address] [address] [address] Conor Chan LDL CALC NORMAL SEE BELOW Normal [facility] Comment on above: Result Comment: <100 mg/dl OPTIMAL 100 - 129 mg/dl NEAR OR ABOVE OPTIMAL 130 - 159 mg/dl BORDERLINE HIGH 160 - 189 mg/dl HIGH >190 mg/dl VERY HIGH Performed By: #### L IPID, TSH, T7, URIC, CMP #### [facility] [address] [address] [address] Conor Chan Triglyceride [Mass/Vol] 75 mg/dL Normal <=150 [facility] Comment on above: Performed By: #### L IPID, TSH, T7, URIC, CMP #### [facility] [address] [address] [address] Conor Chan VLDL CALC 15.0 mg/dL Normal [facility] [place] Comment on above: Performed By: #### L IPID, TSH, T7, URIC, CMP #### [facility] [address] [place] [address] Dr. Conor Chan PROF 14(COMP METB)on 022 Albumin [Mass/Vol] 3.7 g/dL Normal 3.5-5.0 [facility] Comment on above: Performed By: #### L IPID, TSH, T7, URIC, CMP #### [facility] [address] [place] [address] Dr. Conor Chan Albumin/Globulin [Mass ratio] 0.9 {ratio} Normal [facility] [place] Comment on above: Performed By: #### L IPID, TSH, T7, URIC, CMP #### [facility] [address] [place] [address] Dr. Conor Chan ALP [Catalytic activity/Vol] 58 U/L Normal 38-126 [facility] [place] Comment on above: Performed By: #### L IPID, TSH, T7, URIC, CMP #### [facility] [address] [place] [address] Dr. Conor Chan ALT [Catalytic activity/Vol] 40 U/L Normal 21-72 [facility] [place] Comment on above: Performed By: #### L IPID, TSH, T7, URIC, CMP #### [facility] [address] [place] [address] Dr. Conor Chan Anion gap [Moles/Vol] 5.5 mmol/L Normal [facility] [place] Comment on above: Performed By: #### L IPID, TSH, T7, URIC, CMP #### [facility] [address] [place] [address] Dr. Conor Chan AST [Catalytic activity/Vol] 18 U/L Normal 17-59 [facility] [place] Comment on above: Performed By: #### L IPID, TSH, T7, URIC, CMP #### [facility] [address] [place] [address] Dr. Conor Chan Bilirubin [Mass/Vol] 0.5 mg/dL Normal 0.2-1.3 [facility] [place] Comment on above: Performed By: #### L IPID, TSH, T7, URIC, CMP #### [facility] [address] [place] [address] Dr. Conor Chan Calcium [Mass/Vol] 9.9 mg/dL Normal 8.4-10.2 [facility] Comment on above: Performed By: #### L IPID, TSH, T7, URIC, CMP #### [facility] [address] [place] [address] Dr. Conor Chan Chloride [Moles/Vol] 97 mmol/L Critically low 98-107 [facility] Comment on above: Performed By: #### L IPID, TSH, T7, URIC, CMP #### [facility] [address] [place] [address] Dr. Conor Chan CO2 [Moles/Vol] 30.7 mmol/L Critically high 22.0-30.0 [facility] [place] Comment on above: Performed By: #### L IPID, TSH, T7, URIC, CMP #### [facility] [address] [place] [address] Dr. Conor Chan Creatinine [Mass/Vol] 1.04 mg/dL Normal 0.66-1.25 [facility] [place] Comment on above: Performed By: #### L IPID, TSH, T7, URIC, CMP #### [facility] [address] [place] [address] Dr. Conor Chan EGFR-AF GERMAN >60 Normal >=60 [facility] Comment on above: Performed By: #### L IPID, TSH, T7, URIC, CMP #### [facility] [address] [place] [address] Dr. Conor Chan EGFR-NON AF GERMAN >60 Normal >=60 [facility] [place] Comment on above: Performed By: #### L IPID, TSH, T7, URIC, CMP #### [facility] [address] [place] [address] Dr. Conor Chan Globulin (S) [Mass/Vol] 4.2 g/dL Normal [facility] [place] Comment on above: Performed By: #### L IPID, TSH, T7, URIC, CMP #### [facility] [address] [place] [address] Dr. Conor Chan Glucose [Mass/Vol] 122 mg/dL Critically high 74-106 T [facility] Comment on above: Performed By: #### L IPID, TSH, T7, URIC, CMP #### [facility] [address] [place] [address] Dr. Conor Chan Potassium [Moles/Vol] 3.2 mmol/L Critically low 3.4-5.0 [facility] [place] Comment on above: Performed By: #### L IPID, TSH, T7, URIC, CMP #### [facility] [address] [place] [address] Dr. Conor Chan Protein [Mass/Vol] 7.9 g/dL Normal 6.1-8.2 [facility] Comment on above: Performed By: #### L IPID, TSH, T7, URIC, CMP #### [facility] [address] [place] [address] Dr. Conor Chan Sodium [Moles/Vol] 130 mmol/L Critically low 137-145 [facility] Comment on above: Performed By: #### L IPID, TSH, T7, URIC, CMP #### [facility] [address] [place] [address] Dr. Conor Chan Urea nitrogen [Mass/Vol] 15.0 mg/dL Normal 9.0-20.0 [facility] [place] Comment on above: Performed By: #### L IPID, TSH, T7, URIC, CMP #### [facility] [address] [place] [address] Dr. Conor Chan Urea nitrogen/Creatinin e [Mass ratio] 14.4 mg/mg Normal [facility] [place] Comment on above: Performed By: #### L IPID, TSH, T7, URIC, CMP #### [facility] [address] [place] [address] Dr. Conor Chan TSHon 12-20-2021 TSH 2.122 uIU/mL Normal 0.470-4.680 [facility] Comment on above: Performed By: #### L IPID, TSH, T7, URIC, CMP #### [facility] [address] [place] [address] Dr. Conor Chan TSH RANGE SEE BELOW Normal [facility] Comment on above: Result Comment: <0.3 4 UIU/ml HYPERTHYROID 0.34-5.60 UIU/ml EUTHYROID >5.60 UIU/ml HYPOTHYROID Performed By: #### L IPID, TSH, T7, URIC, CMP #### [facility] [address] [place], [place] [address] Dr. Conor Chan URIC ACID SERUMon 12-20-2021 Urate [Mass/Vol] 7.3 mg/dL Normal 3.5-8.5 [facility] Comment on above: Performed By: #### L IPID, TSH, T7, URIC, CMP #### [facility] [address] [place], [place] [address] Dr. Conor Chan XR LSPINE MIN 4 [...] by: OSCAR FRANCO Date: 2021-12-20 10:06 Normal [facility] [place] Vital Signs Date Time Vital Sign Value Performing Clinician Facility 07-14-2025 08:50-0400 Body height 182.9 cm Car LUCIANO Work Phone: [facility] 07-14-2025 08:50-0400 Body mass index (BMI) [Ratio] 37.51 kg/m2 Car LUCIANO Work Phone: [facility] 07-14-2025 08:50-0400 Body weight 125.47 kg Car LUCIANO Work Phone: [facility] 07-20-2024 13:29-0400 Blood Pressure Location Rell ADAMSON [facility] [place] 07-20-2024 13:29-0400 Diastolic blood pressure 78 mm[Hg] Rell NILL [facility] 07-20-2024 13:29-0400 Heart rate 72 /min Rell VALENCIAL [facility] 07-20-2024 13:29-0400 Respiratory rate 16 /min Rell VALENCIAL [facility] 07-20-2024 13:29-0400 Systolic blood pressure 116 mm[Hg] Rell VALENCIAL [facility] 07-08-2024 09:47-0400 Body height 182.9 cm Car LUCIANO Work Phone: [facility] 07-08-2024 09:47-0400 Body mass index (BMI) [Ratio] 36.84 kg/m2 Car LUCIANO Work Phone: [facility] 07-08-2024 09:47-0400 Body weight 123.2 kg Car LUCIANO Work Phone: [facility] 2023 08:03-0400 Body height 182.9 cm Bilal Butt Work Phone: [facility] 2023 08:03-0400 Body weight 120.2 kg Bilal Butt Work Phone: [facility] 06-02-2023 13:26-0400 Body height 182.9 cm Darren Elizabeth APRN.SALES REPRESENTATIVE [employer] Work Phone: [facility] 06-02-2023 13:26-0400 Body weight 117.03 kg Darren Elizabeth APRN.SALES REPRESENTATIVE [employer] Work Phone: [facility] 06-02-2023 13:26-0400 Diastolic blood pressure 84 mm[Hg] Darren Elizabeth APRN.SAL[employer] REPRESENTATIVE [employer] Work Phone: [facility] 06-02-2023 13:26-0400 Heart rate 63 /min Darren Elizabeth APRN.[employer]AL[employer] REPRESENTATIVE [employer] Work Phone: [facility] 06-02-2023 13:26-0400 Respiratory rate 18 /min Darren Elizabeth LINE SERVICE SUPERVISOR.SALES REPRESENTATIVE [employer] Work Phone: [facility] 06-02-2023 13:26-0400 SaO2% (BldA) [Mass fraction] 95 % Darren Elizabeth LINE SERVICE SUPERVISOR.SALES REPRESENTATIVE [employer]ATS Work Phone: [facility] 06-02-2023 13:26-0400 Systolic blood pressure 128 mm[Hg] Darren Elizabeth LINE SERVICE SUPERVISOR.SAL[employer] REPRESENTATIVE [employer] Work Phone: [facility] 05-13-2023 11:22-0400 Body height 182.88 cm Avi M Hoy Work Phone: [facility] DO Work Phone: 05-13-2023 11:22-0400 Body mass index (BMI) [Ratio] 36.21 kg/m2 Avi M Hoy Work Phone: [facility] 250 DO Work Phone: 05-13-2023 11:22-0400 Body surface area Derived from formula 2.41 m2 Avi M Hoy Work Phone: [facility] 250 DO Work Phone: 05-13-2023 11:22-0400 Body weight 121.11 kg Avi M Hoy Work Phone: [facility] 250 DO Work Phone: 05-13-2023 11:22-0400 Diastolic blood pressure 78 mm[Hg] Avi M Hoy Work Phone: [facility] DO Work Phone: 05-13-2023 11:22-0400 Heart rate 64 /min Avi M Hoy Work Phone: [facility] 250 DO Work Phone: 05-13-2023 11:22-0400 Systolic blood pressure 132 mm[Hg] Avi M Hoy Work Phone: [facility] 250 DO Work Phone: 05-07-2022 11:36-0400 Body height 182.88 cm Avi Aguilar Hoy Work Phone: [facility] [facility] 250 DO Work Phone: 05-07-2022 11:36-0400 Body mass index (BMI) [Ratio] 38.38 kg/m2 Avi Lauren Hoy Work Phone: [facility] 250 DO Work Phone: 05-07-2022 11:36-0400 Body surface area Derived from formula 2.47 m2 Avi Lauren Hoy Work Phone: [facility] 250 DO Work Phone: 05-07-2022 11:36-0400 Body weight 128.37 kg Avi Lauren Hoy Work Phone: [facility] 250 DO Work Phone: 05-07-2022 11:36-0400 Diastolic blood pressure 72 mm[Hg] Avi Lauren Hoy Work Phone: [facility] 250 DO Work Phone: 05-07-2022 11:36-0400 Heart rate 66 /min Avi Lauren Hoy Work Phone: [facility] DO Work Phone: 05-07-2022 11:36-0400 Systolic blood pressure 110 mm[Hg] Avi Lauren Hoy Work Phone: [facility] DO Work Phone: Encounters Encounter [...] 07-15-2025 ambulatory Avi Yepez MD Work Phone: [facility] Work Phone: Start: 07-15-2025 End: 07-15-2025 Departed Referred Car LUCIANO-[facility] Start: 07-14-2025 End: 07-14-2025 Bamboo flowsheet Car LUCIANO Work Phone: [facility] Start: 07-14-2025 End: 07-14-2025 Bamboo flowsheet Car LUCIANO Work Phone: [facility] [employer] [facility] [facility] Start: 07-14-2025 End: 07-14-2025 Patient encounter procedure Car LUCIANO Work Phone: [facility] Comment on above: Pre-op examination ( Primary Dx); Arthritis of left knee Start: 07-14-2025 End: 07-14-2025 Preprocedural examination done Car LUCIANO Work Phone: [facility] Start: 07-14-2025 End: 07-14-2025 ambulatory Avi Yepez MD Work Phone: [facility] Work Phone: Start: 07-04-2025 End: 07-04-2025 ambulatory Evelyne Polk MD Facility:[facility] Start: 06-17-2025 End: 06-17-2025 Bamboo flowsheet Car LUCIANO Work Phone: [facility] Start: 06-17-2025 End: 06-17-2025 Bamboo flowsheet Car LUCIANO Work Phone: [facility] Start: 06-13-2025 End: 06-13-2025 ambulatory Evelyne Polk MD Facility: [facility] Start: 04-20-2025 End: 04-20-2025 Bambowade virk Jr. Elias Lewis Stepanic DO Work Phone: [facility] Start: 04-20-2025 End: 04-20-2025 Bamboo flowsheet Elias Lewis Stepanic DO Work Phone: [facility] Start: 04-20-2025 End: 04-20-2025 Office outpatient visit 40 minutes Elias Lewis Stepanic DO Work Phone: [facility] Comment on above: Acute pain of left k nee (Primary Dx); Arthritis of left knee Start: 04-20-2025 End: 04-20-2025 ambulatory ELIAS EDEN Not Available Start: 03-04-2025 End: 03-04-2025 ambulatory [facility] Start: 02-18-2025 End: 02-18-2025 Office outpatient visit 15 minutes Car Cuellar PA Work Phone: [facility] Comment on above: Acute pain of left k nee (Primary Dx); Arthritis of left knee; Knee instability, left Start: 02-18-2025 End: 02-18-2025 ambulatory CAR CUELLAR Not Available Start: 12-13-2024 End: 12-13-2024 ambulatory Evelyne Polk MD Facility: [facility] Start: 09-09-2024 End: 09-09-2024 ambulatory [facility] Start: 09-08-2024 End: 09-08-2024 ambulatory Rell ADAMSON Facility:[facility] Start: 09-08-2024 End: 09-08-2024 Patient encounter procedure Rell ADAMSON [facility] [place] Start: 08-30-2024 End: 08-30-2024 Bamboo flowsheet Car [...] 08-25-2024 ambulatory MD Avi Yepez Work Phone: [facility] Work Phone: Start: 08-25-2024 End: 08-25-2024 Departed Referred MD Avi Yepez Work Phone: [facility] Start: 08-25-2024 End: 08-25-2024 ambulatory Rell ADAMSON Facility:[id number] Start: 08-16-2024 End: 08-16-2024 Bamboo flowsheet [...] Start: 07-28-2024 End: 07-28-2024 Refill Corona Peng [facility] Work Phone: [facility] Comment on above: Post-op pain (Primar y Dx) Start: 07-20-2024 End: 07-20-2024 ambulatory Rell ADAMSON Facility:[facility] Start: 07-20-2024 End: 07-20-2024 Patient encounter procedure [facility] Start: 07-19-2024 End: 07-19-2024 Bamboo flowsheet Maria E Garland PT [facility] Start: 07-19-2024 End: [...] Dx) Start: 06-11-2024 End: 06-11-2024 ambulatory STEVETamara [facility] Start: 06-09-2024 Non-patient / Non-visit MD Indra Yepez Work Phone: [facility] Work Phone: Start: 2023 End: 2023 ambulatory JUAN R LING Facility:[facility] Start: 2023 End: 2023 Office outpatient new 30 minutes Juan R Ling MD Work Phone: [facility] Comment on above: Meralgia paresthetic a of left side (Primary Dx); Chronic midline low back pain without sciatica Start: 08-01-2023 End: 08-01-2023 ambulatory Darren Elizabeth LINE SERVICE SUPERVISOR.[employer]ALES REPRESENTATIVE [employer] Work Phone: [facility] Comment on above: Dr chong Cut me open Start: 07-01-2023 End: 07-01-2023 ambulatory NIKOLAY CAMP Facility:[facility] Start: 06-26-2023 Telephone encounter Nikolay Camp DO Work Phone: [facility] Comment on above: Preparations For Pro cedures (Pre-injection instructions) Start: 06-19-2023 Orders Only Nikolay Montgomery rafael DO Work Phone: Neurology Comment on above: Lumbar radiculopathy (Primary Dx); Displacement of lumbar intervertebral disc without myelopathy Start: 06-02-2023 End: 06-03-2023 ambulatory DARREN ELIZABETH Facility:[facility] Start: 06-02-2023 End: 06-02-2023 Patient encounter procedure Darren Elizabeth LINE SERVICE SUPERVISOR.SALES REPRESENTATIVE [employer] Work Phone: [facility] Comment on above: Radiculopathy, lumba r region (Primary Dx); Lumbar disc herniation Start: 05-13-2023 Office outpatient vi sit 25 minutes Avi Yepez Work Phone: [facility] 250 DO Work Phone: Start: 05-13-[address] Reilly Nelson II Facility: Start: 05-06-2023 Chart abstracting None (Historical) Neurology Start: 12-16-2022 Rx Renewal Avi Yepez Work Phone: [facility] 250 DO Work Phone: Start: 07-17-2022 End: 07-17-2022 Departed Referred MD Avi Yepez Work Phone: [facility] [address] Start: 05-07-2022 Office outpatient vi sit 25 minutes Avi Yepez Work Phone: [facility] [facility] 250 DO Work Phone: Start: 01-03-[address] AVI YEPEZ Facility :[facility] Start: 12-21-2021 Encounter for genera l adult medical examination without abnormal findings DR AVI YEPEZ [facility] Start: 12-20-2021 End: 12-21-[address] AVI YEPEZ Facility:[facility] Start: 12-20-2021 End: 12-21-2021 Encounter for general adult medical examination without abnormal findings DR AVI YEPEZ Facility:[facility] Start: 12-10-2021 Rx Renewal Reilly mcmahon MD Work Phone: [facility] 250 DO Work Phone: Procedures Date Procedure Procedure Detail Performing Clinician Start: 07-15-2025 Culture bacterial quanttative colony count urine Car LUCIANO Work Phone: Start: 07-15-2025 [facility] CMP (CMP) (FOR REMOTE [facility] USE) Donald LUCIANO Work Phone: Start: 07-15-2025 [...] on above: Performed By: #### PSASC #### [facility] [address] [place] [address] Dr. Conor Chan Start: 06-09-2020 Total colonoscopy Reilly Nelson MD Work Phone: Start: 07-02-2019 End: 07-02-2019 Colonoscopy Darren Elizabeth APRN.SALES REPRESENTATIVE [employer] Work Phone: Cardiac catheterization Will renetta Nelson MD Work Phone: Cardiac catheterization Jorge huang NILL Cholecystectomy Reilly miranda MD Work Phone: Cholecystectomy Rell NILL Nasal septoplasty Rell MORALEZ Plan of Treatment Date Care Activity Detail Author Start: 08-25-2034 Screening for malign ant neoplasm of colon [facility] Start: 07-02-2029 Screening for malign ant neoplasm of colon [facility] Start: 12-20-2026 PROSTATE CANCER SCREENING DISCUSSION PROSTATE CANCER SCREENING DISCUSSION [facility] Start: 08-25-2025 End: 08-25-2025 Patient encounter procedure 08/25/2025 1:30 PM EDT Office Visit [facility] [address] [place] [address] Corona Peng, [place] [address] [place] [address] [facility] Start: 08-05-2025 End: 08-05-2025 ambulatory 08/05/2025 1:30 PM EDT Evaluation [facility] [address] [place] [address] Tigist Mukherjee, PT [facility] Start: 07-15-2025 Bacteria identified in Urine by Culture [facility] Start: 07-15-[address] [facility] Start: 07-14-2025 End: 07-14-2026 aPTT in Blood by Coagulation assay APTT Lab Routine Arthritis of left knee Pre-op examination Expected: 07/14/2025, Expires: 07/14/2026 [facility] Work Phone: Comment on above: Expected: 07/14/2025 , Expires: 07/14/2026 Start: 07-14-2025 End: 07-14-2026 Bacteria identified in Urine by Culture Urine culture Microbiology Routine Arthritis of left knee Pre-op examination Expected: 07/14/2025 (Approximate), Expires: 07/14/2026 [facility] Comment on above: Expected: 07/14/2025 (Approximate), Expires: 07/14/2026 Start: 07-14-2025 End: 07-14-2026 CBC W Auto Differential panel - Blood CBC and differential Lab Routine Arthritis of left knee Pre-op examination Expected: 07/14/2025 (Approximate), Expires: 07/14/2026 [facility] Comment on above: Expected: 07/14/2025 (Approximate), Expires: 07/14/2026 Start: 07-14-2025 End: 07-14-2026 Comprehensive metabolic 2000 panel - Serum or Plasma Comprehensive metabolic panel Lab Routine Arthritis of left knee Pre-op examination Expected: 07/14/2025 (Approximate), Expires: 07/14/2026 [facility] Comment on above: Expected: 07/14/2025 (Approximate), Expires: 07/14/2026 Start: 07-14-2025 End: 07-14-2026 ECG 12 lead ECG 12 lead ECG Routine Arthritis of left knee Pre-op examination Expected: 07/14/2025 (Approximate), Expires: 07/14/2026 [facility] Comment on above: Expected: 07/14/2025 (Approximate), Expires: 07/14/2026 Start: 07-14-2025 End: 07-14-2026 Prothrombin time (PT) in Blood by Coagulation assay Protime-INR Lab Routine Arthritis of left knee Pre-op examination Expected: 07/14/2025 (Approximate), Expires: 07/14/2026 [facility] Comment on above: Expected: 07/14/2025 (Approximate), Expires: 07/14/2026 Start: 07-14-2025 End: 07-14-2026 Urinalysis complete panel - Urine Urinalysis with reflex microscopic Lab Routine Arthritis of left knee Pre-op examination Expected: 07/14/2025 (Approximate), Expires: 07/14/2026 [facility] Comment on above: Expected: 07/14/2025 (Approximate), Expires: 07/14/2026 Start: 07-14-2025 End: 07-14-2026 XR Femur and Tibia Views for leg length XR lower extremity leg length evaluation Imaging Routine Arthritis of left knee Pre-op examination Expected: 07/14/2025 (Approximate), Expires: 07/14/2026 [facility] Comment on above: Expected: 07/14/2025 (Approximate), Expires: 07/14/2026 Start: 07-14-2025 End: 07-14-2025 Patient encounter procedure [facility] Comment on above: Pre-op examination ( Primary Dx); Arthritis of left knee Start: 06-27-2025 Influenza vaccination Influenza Vacc ine (#1) [facility] Start: 06-17-2025 End: 06-17-2025 Patient encounter procedure [facility] Comment on above: Acute pain of left k nee (Primary Dx) Start: 04-20-2025 End: 04-20-2025 Patient encounter procedure 04/20/2025 8:30 AM EDT Office Visit [facility] [address] [place] [address] Jr. Elias Thomas DO [address] [place] [address] Arrived [facility] Comment on above: Arrived Start: 08-30-2024 End: 08-30-2024 Patient encounter procedure 08/30/2024 10:15 AM EST Office Visit [facility] [address] [place] [address] Car Cuellar, PA [address] [facility] [address] [place] [address] S/P left knee arthroscopy (Primary Dx) [facility] Comment on above: S/P left knee arthro scopy (Primary Dx) Start: 08-25-2024 [facility] Start: 08-16-2024 End: 08-16-2024 Patient encounter procedure 08/16/2024 10:00 AM EDT Office Visit [facility] [address] [place] [address] Car Cuellar, PA [address] [facility] [address] [place] [address] S/P left knee arthroscopy (Primary Dx) [facility] Comment on above: S/P left knee arthro scopy (Primary Dx) Start: 08-12-2024 End: 08-12-2024 Patient encounter procedure 08/12/2024 9:00 AM EDT Office Visit [facility] [address] [place] [address] Car Cuellar, PA [address] [facility] [address] [place] [address] [facility] Start: 07-29-2024 End: 07-29-2024 Patient encounter procedure 07/29/2024 10:45 AM EDT Procedure Visit [facility] Jr. Elias Thomas DO [address] [place] [address] [facility] Start: 07-19-2024 End: 07-19-2024 ambulatory [facility] Comment on above: Internal derangement of left knee Start: 07-08-2024 End: 07-08-2025 CBC W Auto Differential panel - Blood CBC and differential Lab Routine Preop examination Expected: 07/08/2024 (Approximate), Expires: 07/08/[address] [facility] Work Phone: Comment on above: Expected: 07/08/2024 (Approximate), Expires: 07/08/2025 Start: 07-08-2024 End: 07-08-2024 Patient encounter procedure 07/08/2024 10:00 AM EDT Office Visit [facility] [address] [place] [address] Car Cuellar PA [address] [place] [address] Preop examination (Primary Dx); Internal derangement of left knee [facility] Comment on above: Preop examination (P rimary Dx); Internal derangement of left knee Start: 06-27-2024 Influenza vaccination Influenza Vacc ine (#1) [facility] Start: 06-27-2023 Influenza vaccination [facility] Start: 05-13-2023 FUV, Provider: Reilly Nelson, Status: Jus, Time: 11:10 AM FUV, Provider: Reilly Nelson, Status: Jus, Time: 11:10 AM [facility] 250 DO Work Phone: Start: 10-27-2022 DEPRESSION ASSESSMENT DEPRESSION ASS ESSMENT [facility] Start: 05-17-2022 COVID-19 VACCINE (6 - Pfizer series) COVID-19 VACCINE (6 - Pfizer series) [facility] Start: 05-15-2022 FUV, Provider: Reilly Nelson, Status: Pen, Time: 2:00 PM FUV, Provider: Reilly Nelson, Status: Pen, Time: 2:00 PM [facility] [employer] 250 DO Work Phone: Start: 07-02-2020 Colonoscopy COLONOSCOPY [facility] Start: 07-02-2020 COLORECTAL CANCER SCREENING COLORECTAL CANCER SCREENING [facility] Start: 2016 Prostate Cancer Screening Discussion Prostate Cancer Screening Discussion [facility] Start: 2011 SHINGRIX VACCINE (1 of 2) SHINGRIX VACCINE (1 of 2) [facility] Start: 2006 COLOGUARD (FIT-DNA) COLOGUARD (FIT-D NA) [facility] Start: [address] COLONOGRAPHY [facility] Start: 2006 DIABETES SCREEN DIABETES SCREEN [facility] Start: 2006 Diabetes Screening Diabetes Screenin g [facility] Start: 2006 FECAL OCCULT BLOOD FECAL OCCULT BLOO D [facility] Start: 2006 SIGMOIDOSCOPY SIGMOIDOSCOPY [facility] Start: 1996 Lipid 1996 panel - Serum or Plasma Lipid Screening [facility] Start: 1996 LIPID SCREEN LIPID SCREEN [facility] Start: 1980 Urine microalbumin profile [facility] Start: 1979 HEPATITIS C SCREENING HEPATITIS C SC REENING [facility] Start: 1979 HIV SCREENING HIV SCREENING [facility] Start: 1961 Screening for malign ant neoplasm of colon [facility] End: 09-02-2024 Radex spine lumbosacral minimum 4 views XR LUMBAR MOTION 4V AP/LAT/ FLEX/EXT Radiology Routine Meralgia paresthetica of left side 1 Occurrences starting 2023 until 09/02/2024 [facility] Work Phone: Comment on above: 1 Occurrences starti ng 2023 until 09/02/2024 SPINE INTERVENTION PROCEDURE SPINE INTERVENTION PROCEDURE Procedures Routine Radiculopathy, lumbar region Lumbar disc herniation Ordered: 06/02/2023 [facility] Work Phone: Comment on above: Ordered: 06/02/[address] [facility] [address] [facility] Immunizations Immunization Date Immunization Notes Care Provider [facility] 09-03-2024 influenza virus vaccine, unspecified formulation Car Cuellar PA Work Phone: [facility] 09-12-2023 influenza virus vaccine, unspecified formulation Jr. Thomas DO Work Phone: [facility] 10-14-2022 Pfizer COVID-19 Vac Bivalent 30 MCG/0.3ML Intramuscular Suspension Avi M Hoy Work Phone: [facility] 10-03-2022 influenza, injectabl e, quadrivalent, preservative free Avi M Hoy Work Phone: [facility] 250 DO Work Phone: 10-03-2022 influenza virus vaccine, unspecified formulation Darren Elizabeth APRN.[employer]PRESENTAT[employer] Work Phone: [facility] 03-22-2022 Comirnaty 30 MCG/0.3 ML Intramuscular Suspension Avi M Hoy Work Phone: [facility] 250 DO Work Phone: 03-22-2022 Moderna COVID-19 Vaccine 100 MCG/0.5ML Intramuscular Suspension Avi M Hoy Work Phone: [facility] Comment on above: Series: 03-22-2022 SARS-CoV-2 mRNA (vtmoppyvbbr-omkp-mwhed se) vaccine Rell ADAMSON [facility] 03-22-2022 zoster vaccine recombinant Avi M Hoy Work Phone: [facility] 250 DO Work Phone: 09-03-2021 Pfizer-BioNTech COVID-19 Vacc 30 MCG/0.3ML Intramuscular Suspension Avi M Hoy Work Phone: [facility] 08-25-2021 influenza virus vaccine, unspecified formulation Rell ADAMSON [facility] 08-25-2021 influenza, injectabl e, quadrivalent, preservative free Avi Archery Work Phone: [facility] 250 DO Work Phone: 08-25-2021 zoster vaccine recombinant Avi M Hoy Work Phone: [facility] 250 DO Work Phone: 02-13-2021 Pfizer-BioNTech COVID-19 Vacc 30 MCG/0.3ML Intramuscular Suspension Avi M Hoy Work Phone: [facility] 01-20-2021 SARS-CoV-2 (COVID-19 ) mRNA BNT-162b2 vax Rell VALENCIAL [facility] 01-13-2021 Pfizer-BioNTech COVID-19 Vacc 30 MCG/0.3ML Intramuscular Suspension Avi M Hoy Work Phone: [facility] 12-23-2020 Pfizer-BioNTech COVID-19 Vacc 30 MCG/0.3ML Intramuscular Suspension Avi M Hoy Work Phone: [facility] 08-28-2020 influenza, injectabl e, quadrivalent, preservative free Avi Archery Work Phone: [facility] 250 DO Work Phone: 08-28-2020 influenza virus vaccine, unspecified formulation Juan R Ling MD Work Phone: [facility] Payers Date Payer Category Payer Self-pay [id number] 2021 Private Health Insurance [id number] 2007 Managed Care HMO (unspecified) [id number] 1961 Unknown [id number] 1961 Unknown [id number] [id number] 1961 Unknown [id number] 2.16.840.1.553553.3.579.2.356 1961 Unknown [id number] 2.16.840.1.166950.3.579.2.727 1961 Unknown [id number] 2.16.840.1.701517.3.579.2.727 1961 Unknown [id number] 2.16.840.1.427104.3.579.2.727 1961 Unknown [id number] 2.16.840.1.667305.3.579.2.196 1961 Unknown [id number] 2.16.840.1.562891.3.579.2.196 1961 Unknown [id number] 2.16.840.1.782754.3.579.2.196 1961 Unknown [id number] 2.16.840.1.491978.3.579.2.125 9 1961 Unknown [id number] 2.16.840.1.892680.3.579.2.125 9 1961 Unknown [id number] 2.16.840.1.444636.3.579.2.125 9 1961 Unknown [id number] 2.16.840.1.492912.3.579.2.125 9 1961 Unknown [id number] 2.16.840.1.724044.3.579.2.125 9 1961 Unknown [id number] 2.16.840.1.856885.3.579.2.125 9 1959 Private Health Insurance [id number] Self-pay [id number] Unknown Unknown [facility] [id number] Unknown [id number] [id number] Unknown [id number] 2.16.840.1.015560.3.579.2.531 Unknown [id number] [id number] Social History Date Type Detail Facility Start: 06-02-2023 End: 07-14-2025 Consumes alcohol Consumes alcohol [facility] Comment on above: socially; occasional; Start: 09-28-2020 End: 05-10-2024 Tobacco smoking status NHIS Never smoked tobacco (finding) [facility] Start: 1960 Sex Assigned At Male F [facility] Tobacco smoking stat [facility] Tobacco smoking consumption unknown [facility] Start: 1960 Sex Assigned At Not on file [facility] Start: 06-02-2023 End: 07-14-2025 Gender identity Not on file [facility] Start: 06-02-2023 End: 05-10-2024 Tobacco use and exposure Smokeless tobacco non-user [facility] National Score (1-10 0), lower number is lower risk 61 [facility] Start: 07-28-2023 Gender identity Identifies as male gender (finding) [facility] Start: 07-28-2023 Sexual orientation Heterosexual (fin ding) [facility] Start: 07-08-2024 End: 07-14-2025 Alcoholic beverage intake Current drinker of alcohol (finding) [facility] Start: 05-10-2024 Alcohol Comment 1/WK [facility] Sex Male (finding) [facility] Functional Status Date Assessment Result Facility 09-08-2024 Functional Status N/A [facility] 07-20-2024 Functional Status N/A [facility] Clinical Notes 05-06-2023 to 07-14-2025 Car Cuellar, [...] (NEURONTIN) 300 mg, 2 times daily HYDROcodone-acetaminophen (New Creek) 5-325 MG tablet No dose, route, or frequency recorded. Iron Polysacch [id number]-N78-CA (Poly-Iron 150 Forte) 150-0.025-1 MG capsule 1 [...] Gluconate (Hibiclens) 4 % solution Iron Polysacch Gsphg-M10-NN (Poly-Iron 150 Forte) 150-0.025-1 MG capsule CANCELED: [...] August 25 2 1:30 with [facility] in [place] . documented in this encounter [facility] 04-20-2025 History of Present illness Narrative Images [...] or the patient requires discharge to a half-way facility, the patient may require to have additional inpatient hospital stay days following the surgery. Physical therapy is contraindicated in this patient''s case because of the [id number]-mp-[id number] articulation of the patient's knee.. Questions answered in laymen terms at the bedside. The diagnosis, home exercise plan and any ongoing restrictions/ recommendations reviewed. If unable to be reached in office, I recommend evaluation at nearest Emergency Room if any symptoms worsened or new symptoms develop for requiring urgent evaluation. Visit was preformed using [employer] speech recognition. documented in this encounter [facility] 03-04-2025 Note PR Cardiology - [facility] Subjective Kim Nichols is a [...] and he had carotid stenosis, sister had NE, mother had brain aneurysm ROS All systems [...] twice a day., Disp: , Rfl: HYDROcodone-acetaminophen (New Creek) 5-325 mg tablet, Take 1 tablet by [...] and symmetric in (more content not included)... [facility] 02-18-2025 History of Present illness Narrative [...] Current pain management routine includes taking 2 New Creek before activity, which is not recommended. Discussed [...] requiring urgent evaluation. Visit was preformed using [employer] speech recognition. documented in this encounter [facility] 09-09-2024 Note Cardiology Clinic No te [...] as needed Richard Benitez MD Interventional Cardiology [facility] 08-30-2024 History of Present illness Narrative [...] requiring urgent evaluation. documented in this encounter [facility] 08-16-2024 History of Present illness Narrative [...] requiring urgent evaluation. documented in this encounter [facility] 08-16-2024 Instructions ANKITA Stapleton - 08/16/2024 [...] than 10 mins documented in this encounter [facility] 07-28-2024 Telephone encounter Note Post op pain rx. PDMP reviewed [facility] 07-28-2024 Miscellaneous Notes Post op pain rx. PDMP reviewed documented in this encounter [facility] 07-20-2024 Note General Surgery Offi ce/Clinic [...] tab(s), Oral, Ivy (more content not included)... [facility] Comment on above: Result Comment: Elec tronically [...] sign below. Date: documented in this encounter [facility] 07-08-2024 History of Present illness Narrative [...] SENT ; [facility] ([id number]) Follow up for 08/12 @9AM W/[facility] IN [place]. documented in this encounter [facility] 06-21-2024 History of Present illness Narrative Images from the original note were not included. HISTORY OF PRESENT ILLNESS: EST PT Kim Nichols is an 63 y.o. @ male. EST PT RECHECK LT KNEE PAIN - POSSIBLY DISCUSS SURGERY- PT WAS GETTING A CARDIAC WORK UP- PT DID SEE DR BENITEZ (BAKED AND GRAPHITE INSPECTOR) 06/11/24; PT STATES HE IS CLEARED (OFFICE [...] states that he was cleared per his supervisor color making ; we will need to obtain clearance [...] Elias Thomas D.O. documented in this encounter [facility] 06-11-2024 Note Cardiology Clinic No te [...] without additional cardiac (more content not included)... [facility] 2023 Note HNO ID: [id number] Author: Juan R Ling MD Service: ? [...] issues. 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 [facility] 2023 Note HNO ID: [id number] Author: Bossman Saunders Service: ? Author Type: [...] opioids Medications: See medication reconciliation list in [facility] MEDICATIONS: Gabapentin, New Creek, Tylenol Have you ever seen a pain [...] completing routine daily living activities? No [facility] 2023 History of Present illness Narrative [...] issues. 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 Author Type: Nurse Practitioner Type: Progress Notes Filed: 08/01/2023 1:30 PM Note Text: SPINE SURGERY ESTABLISHED VISIT This is a virtual visit using [employer] Zoom Video Visit. It required patient-provider interaction for the medical decision making as documented below. DATE OF SERVICE: 08/01/2023 DATE OF LAST VISIT: 06/02/2023 SUBJECTIVE: HPI:Kim Nichols is a 62 year old male presenting via virtual vist s/p Left L5 transforaminal epidural steroid injection on 07/01/[address] Camp. Angora great initially and for the first few days after injection, symptoms returned shortly after. Patient has increased his Gabapentin 300 mg from BID to TID and is feeling good today. 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 SIGNATURE: Darren Elizabeth APRN.CNP PATIENT NAME: Kim Nichols DATE: August 01, 2023 TIME: 12:53 PM PAGER: [facility] 06-26-2023 Miscellaneous Notes Phoned patient and message left for Kim to confirm appointment for Kim Nichols for spine procedure on 07/01/2023. Patient notified that [facility] will call patient the night before with the time to arrive for injection. Patient verbalized understanding of the following: -Provided education on spine procedure and answered questions related to spine injection procedure. -Feeder Driver is needed to drive patient home. -NPO [...] to report. Diabetic: No Patient given number [phone], spine injections schedulers, if there is any need to reschedule/ change appointment during normal business hours. Active [employer] users were informed to read MyChart procedure [...] POST INJECTION INSTRUCTIONS documented in this encounter [facility] 06-02-2023 Note HNO ID: [id number] Author: Darren Elizabeth APRN.[employer]AL[employer] REPRESENTATIVE [employer] Service: ? Author Type: Nurse Practitioner Type: [...] with him pain. He also is prescribed New Creek for breakthrough pain which he only takes [...] REVIE (more content not included)... [facility] 06-02-2023 History of Present illness [...] with him pain. He also is prescribed New Creek for breakthrough pain which he only takes [...] which included preparing to see the patient, [id number]-[id number] patient care, completing clinical documentation, obtaining and/or reviewing separately obtained history, performing a medically appropriate examination, counseling and educating the patient/family/caregiver, independently interpreting results (not separately reported), and communicating results to the patient/family/caregiver. SIGNATURE: Darren Elizabeth APRN.CNP PATIENT NAME: Kim Nichols DATE: June 02, 2023 TIME: 1:57 PM PAGER: documented in this encounter [facility] 05-14-2023 Note HNO ID: [id number] Author: Ember Delatorre PA-C Service: ? Author Type: Physician Rate Reviewer Type: Progress Notes Filed: 05/14/2023 4:17 PM Note Text: Per Triage: Kim Nichols is a 62 year old male that requests evaluation of lumbar spine. Per review, they have symptoms of back and LLE pain. Positive for numbness. CMT: Medication: Gabapentin, Tylenol, New Creek Studies (Reports unless indicated) MRI Lumbar: L4/5 moderate left foramen narrowing which may contribute to patient's symptoms 2. L5/S1 disc protrusion without significant canal or foramen narrowing. Disposition: Please schedule with surgical SANDY. Consider if injection is appropriate or on effective dose of Neurontin. Also see if symptoms correlate with imaging. [facility] 05-14-2023 History of Present illness Narrative Per Triage: Kim Nichols is a 62 year old male that requests evaluation of lumbar spine. Per review, they have symptoms of back and LLE pain. Positive for numbness. CMT: Medication: Gabapentin, Tylenol, New Creek Studies (Reports unless indicated) MRI Lumbar: L4/5 [...] or Pain Management Provider at [facility]? No If answer is YES please schedule [...] facility where the MRI/CT/myelogram was completed: [facility] [address] [place] [address] MRI/CT/myelogram viewable in Epic: No If not, please provide [phone] to fax in imaging reports for review. [...] Additional Comments Hydrocodone documented in this encounter [facility] 05-06-2023 Note HNO ID: [id number] Author: Mauricio Kelley Service: ? Author Type: ? Type: Progress Notes Filed: 05/14/2023 4:17 PM Note Text: Patient name: Kim Nichols Are you being referred by a [place] for Spine Health Provider or Pain Management Provider at [facility]? No If answer is YES please schedule [...] facility where the MRI/CT/myelogram was completed: [facility] [address] [place] [address] MRI/CT/myelogram viewable in Epic: No If not, please provide [phone] to fax in imaging reports for review. [...] was completed: Additional Comments Hydrocodone [facility] Evaluation + Plan note No data available for this section [facility] Evaluation note No assessment inform ation available [facility] Work Phone: Evaluation note Diagnosis Radiculopathy, lumbar region- Primary Thoracic or lumbosacral neuritis or radiculitis, unspecified Lumbar disc herniation Displacement of lumbar intervertebral disc without myelopathy [facility] Diagnosis Lumbar radiculopathy- Primary Thoracic or lumbosacral neuritis or radiculitis, unspecified Displacement of lumbar intervertebral disc without myelopathy [facility] Meralgia paresthetica of left side- Primary Meralgia paresthetica Chronic midline low back pain without sciatica documented [facility] Diagnosis Post-op pain- Primary Other acute postoperative pain documented in this encounter [facility]* Diagnosis S/P left knee arthroscopy- Primary documented in this encounter [facility]* Diagnosis S/P left knee arthroscopy- Primary documented in this encounter [facility]* Diagnosis Preop examination- Primary Unspecified pre-operative examination Internal derangement of left knee documented in this encounter [facility]* Diagnosis Internal derangement of left knee- Primary documented in this encounter [facility]* Diagnosis Internal derangement of left knee- Primary Need for crutch training documented in this encounter [facility]* Diagnosis Acute pain of left knee- Primary Arthritis of left knee Knee instability, left documented in this encounter [facility]* Diagnosis Acute pain of [...] to their favorable impact on blood pressure andcholesterol.[facility] 250 DO Work Phone: History of [...] to call if they arise or occur. [facility] [employer] DO Work Phone: History of Present illness [...] to call if they arise or occur. [facility] 250 DO Work Phone: Hospital Discharge instructions No data available for this section [facility] General Surgery Fern Progress note No data available for this section [facility] Surgery Fern Reason for referral (narrative)* Diagnostic Procedure Only (Routine) - Pending Review Specialty Diagnoses / Procedures Referred By Erlinda mao Referred To Contact XR IMAGING Diagnoses Meralgia paresthetica of left side Procedures XR LUMBAR MOTION 4V AP/LAT/ FLEX/EXT RADEX SPINE LUMBOSACRAL MINIMUM 4 VIEWS Juan R Ling MD [address] [place] [address] [place] [address] Referral ID Status Reason Start Date Expiration Date Visits Requested Visits Authorized [id number] Pending Review Auto-Generat ed Referral 2023 09/02/2024 1 1 [facility] for referral (narrative)* Consultation (Routine) - Pending Review Specialty Diagnoses / Procedures Referred By Erlinda mao Referred To Contact Physical Therapy Diagnoses Internal derangement of left knee Procedures CT OFFICE/OUTPATIENT NEW HIGH MDM 60 MINUTES Car Cuellar PA [address] [place] [address] [facility] [address] [place] [address] Referral ID Status Reason Start Date Expiration Date Visits Requested Visits Authorized [id number] Pending Review Consult and Treat 07/01/2024 12/28/2024 1 1 [facility]No reason for referral [facility] Work Phone: Summary Purpose Family History [...] DATE CREATED AUTHOR AUTHOR'S ORGANIZ ATION 05/14/2023 [facility] DATE CREATED AUTHOR AUTHOR'S ORGANIZ ATION 05/14/2023 [employer] DATE CREATED AUTHOR AUTHOR'S ORGANIZ ATION 2023 [facility] DATE CREATED AUTHOR AUTHOR'S ORGANIZ ATION 08/05/2023 [facility] DATE CREATED AUTHOR AUTHOR'S ORGANIZ ATION 09/10/2024 [facility] DATE CREATED AUTHOR AUTHOR'S ORGANIZ ATION 03/06/2025 [facility] DATE CREATED AUTHOR AUTHOR'S ORGANIZ ATION 07/10/2025 [facility] DATE CREATED AUTHOR AUTHOR'S ORGANIZ ATION 07/15/2025 [facility] EPIC DATE CREATED AUTHOR AUTHOR'S ORGANIZ ATION 07/17/2025 [facility] Care Teams (unrecognized sec tion [...] August 25, 2024 Rell Adamson MD [facility] Attending Provider Active Start: August 25, 2024 End: August 25, 2024 Team Status: Inactive Member Role Status Dates Avi Yepez MD Primary Care Provider Active Bijan Betts Jr, DO Attending Provider Active Pipe Organ Mechanic Apprentice Relationship Specialty Start Date End Date Avi Yepez MD [address] [place] [facility] [place] [address] Referring Family Medicine 04/24/23 Pipe [employer] Mechanic Apprentice Relationship Specialty Start Date End Date Avi Yepez MD [address] [place] [facility] [place] [address] Referring Family Medicine 04/24/23 Pipe [employer] Mechanic Apprentice Relationship Specialty Start Date End Date Avi Yepez MD [address] [place] [facility] [place] [address] Referring Family Medicine 04/24/23 Pipe [employer] Mechanic Apprentice Relationship Specialty Start Date End Date Avi Yepez MD [address] [place] [facility] [place] [address] PCP - General Family Medicine 06/25/23 Avi Yepez MD [address] [place] [facility] [place] [address] Referring Family Medicine 04/24/23 Pipe Organ Mechanic Apprentice Relationship Specialty Start Date End Date Avi Yepez MD [address] [place] [facility] [place] [address] PCP - General Family Medicine 06/25/23 Avi Yepez MD [address] [place] [facility] [place] [address] Referring Family Medicine 04/24/23 Pipe Organ Mechanic Apprentice Relationship Specialty Start Date End Date Avi Yepez MD [address] [place] [facility] [place] [address] PCP - General Family Medicine 06/25/23 Avi Yepez MD [address] [place] [facility] [place] [address] Referring Family Medicine 04/24/23 Pipe Organ Mechanic Apprentice Relationship Specialty Start Date End Date Avi Yepez MD [address] [place] [facility] [place] [address] PCP - General 05/05/24 Pipe Organ Mechanic Apprentice Relationship Specialty Start Date End Date Avi Yepez MD [address] [place] [facility] [place] [address] PCP - General 05/05/24 Pipe Organ Mechanic Apprentice Relationship Specialty Start Date End Date Avi Yepez MD [address] [place] [facility] [place] [address] PCP - General 05/05/24 Pipe Organ Mechanic Apprentice Relationship Specialty Start Date End Date Avi Yepez MD [address] [place] [facility] [place] [address] PCP - General 05/05/24 Pipe Organ Mechanic Apprentice Relationship Specialty Start Date End Date Avi Yepez MD [address] [place] [facility] [place] [address] PCP - General 05/05/24 Pipe Organ Mechanic Apprentice Relationship Specialty Start Date End Date Avi Yepez MD [address] [place] [facility] [place] [address] PCP - General 05/05/24 Pipe Organ Mechanic Apprentice Relationship Specialty Start Date End Date Avi Yepez MD [address] [place] [facility] [place] [address] PCP - General 05/05/24 Pipe Organ Mechanic Apprentice Relationship Specialty Start Date End Date Avi Yepez MD [address] [facility], [facility] PCP - General 05/05/24 Pipe Organ Mechanic Apprentice Relationship Specialty Start Date End Date Avi Yepez MD [address] [facility], [facility] PCP - General 05/05/24 Pipe Organ Mechanic Apprentice Relationship Specialty Start Date End Date Avi Yepez MD [address] [facility], [facility] PCP - General 05/05/24 Pipe Organ Mechanic Apprentice Relationship Specialty Start Date End Date Avi Yepez MD PCP - General 05/05/24 Pipe Organ Mechanic Apprentice Relationship Specialty Start Date End Date Avi Yepez MD PCP - General 05/05/24 Pipe Organ Mechanic Apprentice Relationship Specialty Start Date End Date Avi Yepez MD [address] [place] [facility] [place] [address] PCP - General Family Medicine 06/17/25 Pipe Organ Mechanic Apprentice Relationship Specialty Start Date End Date Avi Yepez MD [address] [place] [address] PCP - General Family Medicine 06/17/25 Pipe Organ Mechanic Apprentice Relationship Specialty Start Date End Date Avi Yepez MD [address] [place] [address] PCP - General Family Medicine 06/17/25 Team Status: Inactive Member Role Status Dates Car Cuellar PA-C Attending Provider Active Start: July 15, 2025 End: July 15, 2025 Pipe Organ Mechanic Apprentice Relationship Specialty Start Date End Date Avi Yepez MD [address] [place] [address] PCP - General Family Medicine 06/17/25 Goals [...] or prosecute any alcohol or drug abuse patient.[facility] the event this information is protected by the Federal Confidentiality of Alcohol and Drug Abuse Patient Records regulations: The Federal rules restrict any use of the information to criminally investigate or prosecute any alcohol or drug abuse patient.[facility] the event this information is protected by the Federal Confidentiality of Alcohol and Drug Abuse Patient Records regulations: The Federal rules restrict any use of the information to criminally investigate or prosecute any alcohol or drug abuse patient.[facility] the event this information is protected by the Federal Confidentiality of Alcohol and Drug Abuse Patient Records regulations: The Federal rules restrict any use of the information to criminally investigate or prosecute any alcohol or drug abuse patient.[facility] the event this information is protected by the Federal Confidentiality of Alcohol and Drug Abuse Patient Records regulations: The Federal rules restrict any use of the information to criminally investigate or prosecute any alcohol or drug abuse patient.[facility] the event this information is protected by the Federal Confidentiality of Alcohol and Drug Abuse Patient Records regulations: The Federal rules restrict any use of the information to criminally investigate or prosecute any alcohol or drug abuse patient.[facility] Reason for Visit (unrecogniz ed section and content) Reason Comments New Patient Reason Comments Preparations For Procedures Pre-injectio n instructions Reason Comments Low Back Pain New Patient Evaluation Reason Comments Pain Post-op Reason Comments Pain Reason Comments Pain Specialty Diagnoses / Procedures Referred By Contac t Referred To Contact Physical Therapy Diagnoses Internal derangement of left knee Procedures CT OFFICE/OUTPATIENT NEW HIGH MDM 60 MINUTES Car Cuellar, PA [address] [facility] [address] [place] [address] Maria E Peck, EFRA Referral ID Status Reason Start Date Expiration Date Visits Requested Visits Authorized [id number] Authorized Consult and Treat 07/01/2024 12/28/2024 60 [...] BE BASED ON THE PRIMARY CLINICAL RECORDS. [facility]. provides no warranty or guarantee of the accuracy or completeness of information in this document.
[2025-08-01 08:24] VITALS: BP 135/91; PULSE 71; TEMP 36.7; O2SAT 93
[2025-08-01 09:02] VITALS: BP 143/75; PULSE 63; O2SAT 95
[2025-08-01 09:03] VITALS: BP 157/80; PULSE 68; O2SAT 94
[2025-08-01] MEDS: BUPIVACAINE HCL 0.25% PF 25 MG/10 ML VIAL 8 ML INJ (09:03)
[2025-08-01] MEDS: LIDOCAINE HCL 2% 400 MG/20 ML MDV INJ (09:04)
--- NOTE | 2025-08-01 09:06 | W.PM.PROCNOT ---
Date of procedure: 08/01/25 Pre-op diagnosis: Pain due to lumbar spondylosis without myelopathy Post-op diagnosis: same as pre-op Procedure: Procedure: Bilateral L4-5, L5-S1 medial branch block Medications: Bupivacaine 0.25% 6cc The patient was seen and examined in the preoperative holding area.? An informed consent was obtained and placed on the chart.? The patient was brought to the medical procedure unit and placed in the prone position.? A timeout was completed verifying correct patient, procedure site, positioning, plan, and special equipment.? Using aseptic technique, the needle was placed at left L4. Under direct fluoroscopic visualization a Quincke-tipped spinal needle was advanced to the junction of the superior articulating process with the transverse process at the designated medial branch segment.? Preceded by negative aspiration, the above-mentioned injectate was placed in 1 mL aliquots.? The procedure was repeated at left L5, S1.? The needle was removed and insertion site was covered. The same procedure, at the same levels, was completed on the right side. The patient was taken to the postprocedural recovery area and monitored for an appropriate length of time before found suitable for discharge in the company of a responsible adult. Anesthesia: Local Surgeon: Evelyne Polk Pathology: none sent Condition: stable Disposition: no change
== END 2025-08-01 09:09 | disposition home or self-care (01) ==
PROVIDERS: PCP Family Medicine; Visit Provider Anesthesiology
DX: M47.816 Spondylosis without myelopathy or radiculopathy, lumbar region (principal); M54.50 Low back pain, unspecified
CPT/HCPCS: 64493; 64494; J0665

== ENCOUNTER 2025-08-04 07:52 | Outpatient (OUT) | payer OTHER, SELFPAY ==
--- OUTSIDE RECORDS SUMMARY | 2025-08-04 08:16 | XMS_ITS | CCD ---
Author Organization [facility] Care Team Providers Care Representative Phlebotomy Services Name Role Phone Unavailable Unavailable DR AVI [...] Provider Avi Yepez MD Primary Care Provider [phone] Jam LANDA, Evelyne Bradley Attending Unavailable Jam LANDA, Evelyne Bradley Attending Unavailable Jam LANDA, Evelyne Bradley Attending Unavailable Avi Yepez MD Primary Care Provider [phone] Car Cuellar PA-C Attending Provider CAR CUELLAR Attending Unavailable JR. THOMAS GEORGE C Attending UnavailMARIA E Angel Attending Unavailable CAR CUELLAR Referring Unavailable CAR CUELLAR Attending Unavailable CAR CUELLAR Attending Unavailable CAR CUELLAR Attending Unavailable Car Cuellar Admitting Unavailable Car Cuellar Attending Unavailable Rell Adamson Attending Unavailable Rell Adamson Admitting Unavailable Avi Yepez Primary Care Unavailable Avi Yepez Primary Care Unavailable Car Cuellar Attending Unavailable Car Cuellar Admitting Unavailable Allergies Allergy Classification Reported Allergen(s) Allergy Type Date of Onset Reaction(s) Facility (20 sources) Amoxicillin; Translations: [amoxicillin] Drug Allergy 0 Judith Beck [facility] (1 source) Amoxicillin Drug Allergy [facility] Repository (1 source) traMADol Drug Allergy [facility] Repository (3 sources) Penicillin; Translations: [penicillin] Drug Allergy Weal (disorder) [facility] (20 sources) traMADol; Translations: [TRAMADOL] Drug Allergy 4 Unknown [facility] (1 source) Amoxicillin Drug Allergy 0 [facility] Repository Medications Current Medications Medication Drug Class(es) Dates Sig (Normalized) Sig (Original) acetaminophen 325 mg / HYDROcodone bitartrate 5 mg oral tablet (20 sources) Opioid Agonist Start: 07-08-2024 take 1 tablet by mouth twice daily as needed for pain Rosenberg 325 mg-5 mg oral tablet 1 tab(s), Oral, BID as needed for pain, Refill(s) 0 Start Date: 07/08/24 Status: Ordered Start: 03-29-2024 End: 06-21-2024 take 1 tablet by mouth every twelve hours HYDROcodone-acetaminophen (Rosenberg) 5-325 MG tablet Take 1 tablet by mouth every 12 (twelve) hours 03/29/2024 06/21/2024 Discontinued (Therapy completed) Start: 09-26-2020 End: 07-31-2024 take 1 tablet by mouth every six hours as needed for headache HYDROcodone-acet aminophen (Rosenberg) 5-325 MG tablet Active Rosenberg 5-325 MG T ABS TAKE 1 TABLET [...] tablet by mouth once daily Iron Polysacch Iyzms-I42-MO (Poly-Iron 150 Forte) 150-0.025-1 MG capsule Indications: [...] [Coronary atherosclerosis of unspecified type of vessel, [place] bay or graft] Onset: 03-04-2025 07-08-2024 Chronic [...] 3.4 - 5.0 g/dL [facility] ALBUMIN GLOBULIN RATIO 1 [facility] ALP [Catalytic activity/Vol] 63 U/L 46 - 116 U/L [facility] ALT [Catalytic activity/Vol] 33 U/L 16 - 63 U/L [facility] Anion gap [Moles/Vol] 10.6 mmol/L [facility] AST [Catalytic activity/Vol] 21 U/L 15 - 37 U/L [facility] Bilirubin [Mass/Vol] 1.1 mg/dL High 0.2 - 1.0 mg/dL [facility] Calcium [Mass/Vol] 9.4 mg/dL 8.5 - 10. 1 mg/dL [facility] Chloride [Moles/Vol] 103 mmol/L 98 - 107 mmol/L [facility] CO2 [Moles/Vol] 30 mmol/L 21.0 - 32.0 mmol/L [facility] Creatinine [Mass/Vol] 1.16 mg/dL 0.70 - 1.30 mg/dL [facility] GFR/1.73 sq M.predicted CKD-EPI (S/P/Bld) [Vol rate/Area] >60 >=60 mL/min/1.73 m 2 [facility] Globulin (S) [Mass/Vol] 4.1 g/dL [facility] Glucose [Mass/Vol] 116 mg/dL High 74 - 106 mg/dL [facility] Interpretation and review of laboratory results Abnormal [facility] Potassium [Moles/Vol] 3.6 mmol/L 3.5 - 5.1 mmol/L [facility] Protein [Mass/Vol] 8 g/dL 6.4 - 8.2 g/dL [facility] Sodium [Moles/Vol] 140 mmol/L 136 - 145 mmol/L [facility] TBH EGFR-NON AF [facility] HELEN[facility] >60 >=60 mL/min/1.73 m 2 [facility] Urea nitrogen [Mass/Vol] 14 mg/dL 7.0 - 18.0 mg/dL [facility] Urea nitrogen/Creatinin e [Mass ratio] 12.1 mg/mg [facility] ECG 12-LEADon 07-15-2025 [place] [address] Electrocardiograph Report Signed Patient: KIM NICHOLS MR#: [id number] : 1960 Acct:[id number] Age/Sex: 64 / M ADM Date: 07/15/25 Loc: LAB Attending Dr: Car LUCIANO Ordering Physician: Car Cuellar Date of Service: 07/15/25 Procedure(s): ECG 12 lead Accession Number(s): [id number] cc: [facility] Test Date: 2025-07-15 Pat Name: KIM NICHOLS Department: Room: - 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 Measurements Intervals [place] Rate: 71 P: 18 IA: 165 QRS: -12 QRSD: 87 T: 19 QT: 374 QTc: 407 Interpretive Statements SINUS RHYTHM LOW QRS VOLTAGE IN PRECORDIAL LEADS [QRS DEFLECTION < 1.0 mV IN CHEST LEADS] Abnormal ECG Compared to ECG 05/07/2024 12:44:31 No significant changes Electronically Signed On 07-15-2025 20:02:29 EDT by ELIAS ANN M.D. 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 Measurements Intervals [place] Rate: 71 P: 18 IA: 165 QRS: -12 QRSD: 87 T: 19 QT: 374 QTc: 407 Interpretive Statements SINUS RHYTHM LOW QRS VOLTAGE IN PRECORDIAL LEADS [QRS DEFLECTION < 1.0 mV IN CHEST LEADS] Abnormal ECG Compared to ECG 05/07/2024 12:44:31 No significant changes Electronically Signed On 07-15-2025 20:02:29 EDT by ELIAS ANN M.D. Dictated By: ELIAS ANN Signed By: 07/15/25200107/15/252001 DD/ 105 TD/TT: Frog Farmer: [facility] Radiology Study observation (narrative) [facility] ECG 12-LEADOrdered By: Trenergit Radiology on 07-15-2025 [facility] Healthcare Work Phone: Urine Cultureon 07-15-2025 Bacteria identified Cx Nom (U) No Growth 2 Days PERFORMED BY: [place] [address] PATHOLOGIST MANUFACTURING QUALITY MANAGER DOLORES RODRÍGUEZ M.D. Normal [facility] Comment on above: Performed By: #### C UU #### [address] X-ray reportOrdered By: Ángel Huerta on 07-14-2025 Study report [facility] Main [place] [address] [place] [address] XRay Report Signed Patient: Kim Nichols MR#: [id number] : 1960 Acct:[id number] Age/Sex: 64 / M ADM Date: 5 Loc: XDS Room: Type: [facility] Attending Dr: Car Cuellar PA-C Copies to: Car Cuellar PA-C~ Ordering Provider: Car Cuellar PA-C Date of Service: 07/14/25 XR/XR femur BI: PRE OP ([id number]) XR/XR tibia/fibula BI: PRE OP History: Preop assessment for left total knee arthroplasty. Plain film imaging of the femurs. Adequate alignment. No acute displaced fracture. The right greater trochanter out of the field of view. No significant hip degeneration. Extensive left knee medial vwgc-ip-tqdi contact degeneration. Unremarkable right knee. Plain film imaging of the tibia and fibula bilaterally. No acute displaced fracture. Adequate ankle joints. XR/XR tibia/fibula BI IMPRESSION: Extensive left and medial jstf-ms-sgqg contact the degeneration. Unremarkable hips. Unremarkable ankles. Impression dictated by: Tom Huerta M.D. 07/14/2025 4:10 PM Dictation Location: [facility] Transcribed By: [facility] 07/14/25 1610 Dictated By: Tom Huerta DO 07/14/25 1608 Signed By: 07/14/25 1610 [facility] XR femur BIon 07-14-2025 XR femur BI [facility] Main [address] [address] XRay Report Signed Patient: Kim Nichols MR#: [id number] : 1960 Acct:[id number] Age/Sex: 64 / M ADM Date: 07/14/25 Loc: XDS Room: Type: [facility] Attending Dr: Car Cuellar PA-C Copies to: Car Cuellar PA-C Ordering Provider: Car Cuellar PA-C Date of Service: 07/14/25 XR/XR femur BI: PRE OP ([id number]) XR/XR tibia/fibula BI: PRE OP History: Preop assessment for left total knee arthroplasty. Plain film imaging of the femurs. Adequate alignment. No acute displaced fracture. The right greater trochanter out of the field of view. No significant hip degeneration. Extensive left knee medial lmas-lu-kjju contact degeneration. Unremarkable right knee. Plain film imaging of the tibia and fibula bilaterally. No acute displaced fracture. Adequate ankle joints. XR/XR tibia/fibula BI IMPRESSION: Extensive left and medial icfq-el-fgwp contact the degeneration. Unremarkable hips. Unremarkable ankles. Impression dictated by: Tom Huerta M.D. 07/14/2025 4:10 PM Dictation Location: [place] [address] Transcribed By: [facility] 07/14/25 1610 Dictated By: Tom Huerta DO 07/14/25 1608 Signed By: 07/14/25 1610 Normal [facility] Office Visiton 03-04-2025 Follow-up visit [id number] Kim Nichols 1960 M Date Provider Department Center 03/04/2025 [id number] [facility] Family History Problem Relation Age of Onset Brain Aneurysm Mother Stroke Father Heart attack Sister Family Status - Relation Status Age at Mother Father Sister Level of Service:78825 [place] OFFICE/OUTPATIENT ESTABLISHED LOW MDM 20 MIN Reason for Visit and Comments: Coronary Artery Disease [187] - Denies SOB. Atrial Fibrillation [80] - On Eliquis, denies bleeding. Denies palpitations and syncope. Hyperlipidemia [182] - Had lipid panel in May 2024. On rosuvastatin. Hypertension [104142] Chest Pain [848237] - Intermittent, blames his hiatal hernia and back pain. Normal [facility] No Panel Informationon 02-18 ANKITA [...] and draped in the usual sterile fashion. [facility] Office Visiton 09-09-2024 Follow-up visit [id number] Kim Nichols 1960 M Date Provider Department Center 09/09/2024 3848-RICHARD BENITEZ [facility] Family History Problem Relation Age of Onset Brain Aneurysm Mother Stroke Father Heart attack Sister Family Status - Relation Status Age at Mother Father Sister Level of Service:99992 [place] OFFICE/OUTPATIENT ESTABLISHED LOW MDM 20 MIN Normal [facility] Ambulatory Visit Summaryon 1 11-08-2023 Ambulatory Visit Summary Ambulatory Visit Summary KIM NICHOLS :1960 Visit Date:09/08/2024 Ambulatory Visit Instructions Your Care Team Attending Physician - SNOW LANDA, Rell Marr Primary Care Physician - Avi Yepez MD This Is Your Medications List acetaminophen-hydrocodone (Rosenberg 325 mg-5 mg oral tablet) apixaban (Eliquis [...] What How Much When Instructions Unchanged acetaminophen-hydrocodone (Rosenberg 325 mg-5 mg oral tablet) 1 Tablets [...] for choosing us for your care. Normal [facility] General Surgery Office/Clini c Noteon [...] Tab, 25 mg= 1 tab(s), Oral, BID Rosenberg 325 mg-5 mg oral tablet, 1 tab(s), [...] virus vaccine, inactivated 09/12/2023 Recorded SARS-CoV-2 (COVID-19) [id number].[id number] 10/14/2022 Recorded influenza virus vaccine, inactivated 10/03/2022 Recorded SARSCoV2 mRNA(xyzxnlwnw-ezjx-jqmxjj) vac 03/22/2022 Recorded SARS-CoV-2 (COVID-19) mRNA BNT-162b2 vax 09/03/2021 Recorded influenza virus vaccine, inactivated 08/25/2021 Recorded SARS-CoV-2 (COVID-19) mRNA BNT-162b2 vax 02/13/2021 Recorded SARS-CoV-2 (COVID-19) mRNA BNT-162b2 vax 01/20/2021 Recorded SARS-CoV-2 (COVID-19) mRNA BNT-162b2 vax 01/13/2021 Recorded SARS-CoV-2 (COVID-19) mRNA BNT-162b2 vax 12/23/2020 Recorded influenza virus vaccine, inactivated 08/28/2020 Recorded Normal [facility] Comment on above: Result Comment: Elec tronically Signed By: SNOW LANDA, Rell Marr\.br\Date and Time Signed: 09/08/24 16:32 EST Reminderson 08-26-2024 Reminders Reminders From: María Ayala LPN To: N - Clinical; Sent: 08/26/2024 11:53:39 EDT Show up: 07/26/2034 07:00:00 EDT Subject: colonoscopy recall Due Date/Time: 08/25/2034 07:00:00 EDT Reminder/Recall Patient due for screening colonoscopy 08/25/2034. Normal [facility] Pathology Request for Lab Co rpon 08-25-2024 Pathology Request for Lab Le Normal [facility] Comment on above: Order Comment: PATHO LOGY GI SPECIMEN Result Comment: See report. Scanned copy available in EMR. PERFORMED BY: [place] [address] PATHOLOGIST MANUFACTURING QUALITY MANAGER MICHAEL LEMUS M.D. Performed By: #### P ATH TO [facility] #### [address] Ambulatory Visit Summaryon 0 07-20-2024 Ambulatory [...] prescribing physician if questions or concerns acetaminophen-hydrocodone (Rosenberg 325 mg-5 mg oral tablet) apixaban (Eliquis [...] What How Much When Instructions Unchanged acetaminophen-hydrocodone (Rosenberg 325 mg-5 mg oral tablet) 1 Tablets [...] for choosing us for your care. Normal [facility] ALL CBC WITH AUTO DIFFon BASOPHILS ABSOLUTE AUTO 0.0 [facility] Basophils/100 WBC (Bld) 0.5 % 0.2 - 2.0 % [facility] Eosinophils/100 WBC (Bld) 3.0 % 0.9 - 7.0 % [facility] Erythrocyte distribution width (RBC) [Ratio] 13.9 % 11.0 - 15.0 % [facility] Hematocrit (Bld) [Volume fraction] 46.2 % 42.0 - 54.0 % [facility] Hemoglobin (Bld) [Mass/Vol] 15.6 g/dL 14.0 - 18.0 g/dL [facility] IMMATURE GRANULOCYTES ABS AUTO 0.03 [facility] Immature granulocytes/100 WBC (Bld) 0.5 % 0.0 - 0.5 % [facility] LYMPHOCYTES ABSOLUTE AUTO 1.4 [facility] Lymphocytes/100 WBC (Bld) 22.3 % 20.5 - 60.0 % [facility] MCH (RBC) [Entitic mass] 28.9 pg 25.9 - 34.0 pg [facility] MCHC (RBC) [Mass/Vol] 33.8 g/dL 29.9 - 35.2 g/dL [facility] MCV (RBC) [Entitic vol] 85.7 fL 80.0 - 94.0 fL [facility] MONOCYTES ABSOLUTE AUTO 0.7 [facility] Monocytes/100 WBC (Bld) 11.6 % 1.7 - 12.0 % [facility] NEUTROPHILS ABSOLUTE AUTO 4.0 [facility] Neutrophils/100 WBC (Bld) 62.1 % 43.0 - 75.0 % [facility] Platelet mean volume (Bld) [Entitic vol] 10.5 fL 9.5 - 13.5 fL [facility] TBH EO # 0.2 [facility] TB PLT 246 [facility] TB RBC 5.39 [facility] TB WBC 6.4 [facility] Healthcare Office Visiton 06-11-2024 Follow-up visit [id number] Kim Nichols 1960 M Date Provider Department [place] 06/11/2024 3848-RICHARD BENITEZ Hos Family History Problem Relation Age of Onset Brain Aneurysm Mother Stroke Father Heart attack Sister Family Status - Relation Status Age at Mother Father Sister Level of Service:59998 [place] OFFICE/OUTPATIENT NEW MODERATE MDM 45 MINUTES Reason for Visit and Comments: New Patient [Other] - CHEST PAIN/AFIB Normal [facility] CNOVon 2023 CNOV Office Visit ([facility] ) KIM NICHOLS ([id number]) 1960 M Date Time Provider Department 08/04/23 [...] opioids Medications: See medication reconciliation list in [facility] MEDICATIONS: Gabapentin, Rosenberg, Tylenol Have you ever seen a pain [...] issues. 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 [facility] 07-08-2023 [facility] Telephone (SPNMMN) KIM NICHOLS ([id number]) 1960 Date Time Provider Department 07/08/23 NIKOLAY CAMP [facility] During your visit today, we recorded the following information about you: Stacy Gallagher RN 07/08/2023 12:56 PM Signed Post Spine Injection phone call: [phone] on 07/08/23 Patient denies fever, chills, new [...] appointment 2-4 weeks post procedure by calling [phone] Patient does not have any questions or [...] Encounter Status:Closed by STACY GALLAGHER on 07/08/23 [facility] HISTORY PHYSICALon HISTORY PHYSICAL HNO ID: [id number] Author: Sherice Galvin APRN.FORENSIC PSYCHOLOGIST Service: ? Author Type: Nurse Practitioner Type: [...] Prophylaxis/Anticoagulants VTE Prophylaxis: NA SIGNATURE: Sherice Galvin APRN.FORENSIC PSYCHOLOGIST PATIENT NAME: Kim Nichols DATE: July 01, 2023 TIME: 9:04 AM Normal [facility] OPERATIVE NOon 07-01-2023 OPERATIVE NO HNO ID: [id number] Author: Nikolay Camp DO Service: Physical Medicine AND Rehabilitation Author Type: Physician Type: Operative Report Filed: 07/01/2023 9:40 AM Note Text: PROCEDURE REPORT Surgery/Procedure Date: July 01, 2023 Interventionalist: Nikolay Camp DO Procedure(s): Left L5 transforaminal epidural steroid injection Pre-Op/Pre-Procedure Diagnosis: Lumbar radiculopathy Post-Op Diagnosis: same SUBJECTIVE: Kim Nichols is a 62 year old male, who presents to the [facility] for a left L5 transforaminal epidural steroid injection. This is his first (1) procedure. 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 Pain is central [...] home in stable condition. DO Fátima Castrejon [facility] Nina [facility] KIM NICHOLS ([id number]) 1960 M Date Time Provider Department 06/26/23 [facility] During your visit today, we recorded the following information about you: Oscar Rollins LPN 06/26/2023 9:20 AM Signed Phoned patient and message left for Kim to confirm appointment for Kim Nichols for spine procedure on 07/01/2023. Patient notified that [place] will call patient the night before with the time to arrive for injection. Patient verbalized understanding of the following: -Provided education on spine procedure and answered questions related to spine injection procedure. -Manager Reimbursement is needed to drive patient home. -NPO [...] to report. Diabetic: No Patient given number [phone], spine injections schedulers, if there is any need to reschedule/ change appointment during normal business hours. Active [employer] users were informed to read [employer] procedure instructions prior to appointment. AMBULATORY PATIENT [...] Encounter Status:Closed by OSCAR ROLLINS on 06/26/23 [facility] CNOVon 06-02-2023 CNOV Office Visit (SPNSMN ) KIM NICHOLS ([id number]) 1960 M Date Time Provider Department 06/02/23 1:40 PM [facility] During your visit today, we recorded the following information about you: Pulse Respiration Blood pressure Weight 63/minute 18/minute 128/84 117 kg Height 1.829 m Darren Elizabeth, KRYS.FORENSIC PSYCHOLOGIST 06/03/2023 1:01 PM Signed SPINE SURGERY OUTPATIENT [...] with him pain. He also is prescribed Rosenberg for breakthrough pain which he only takes [...] well de (more content not included)... Normal [facility] Office Visit (Cardiology)on 05-13-2023 Follow-up visit Diagnoses/Problems Assessed Coronary disease (414.00) (I25.10) Essential hypertension, benign (401.1) (I10) Hyperlipidemia (272.4) (E78.5) Class 2 obesity with body mass index (BMI) of 36.0 to 36.9 in adult (278.00,V85.36) (E66.9,Z68.36) Never a smoker Orders Class 2 obesity with body mass index (BMI) of 36.0 to 36.9 in adult Healthy Weight Tips; Status:Complete - Retrospective Authorization; Done: [id number] Some eating tips that can help you lose weight.; Status:Complete - Retrospective Authorization; Done: [id number] Coronary disease, Hyperlipidemia Renew: Aspirin EC Low Dose 81 MG Oral Tablet Delayed Release; TAKE 1 TABLET DAILY DIRECTED Hyperlipidemia Renew: Rosuvastatin Calcium 20 MG Oral Tablet; take 1 tablet by mouth at bedtime SocHx: Never a smoker Tobacco Use Screening; Status:Complete; Done: [id number] Patient Instructions Please bring all medicines, vitamins, [...] MG Oral CapsuleTAKE 1 CAPSULE TWICE DAILY. Rosenberg 5-325 MG TABSTAKE 1 TABLET EVERY 4 [...] negative for complaint. Vitals Vital Signs Recorded: [id number] 11:22AM Heart Rate64, R Radial [id number], RUE, Sitting Neqwzfawv48, RUE, Sitting Height6 ft Rpxfyq382 lb BMI Zkdbexpdym00.21 kg/m2 BSA Calculated2.41 Tobacco Useb) No PHQ-2 [...] Screening.on 023 Adult depression screening assessment No [facility] [address] DO Work Phone: Tobacco use status [facility] b) No [facility] [address] DO Work Phone: Tobacco Screening.on 022 Adult depression screening assessment No -[facility] [address] DO Work Phone: Fall risk assessment c) Not medically indicated [facility] [address] DO Work Phone: Tobacco use status [facility] b) No [facility] [address] DO Work Phone: H PYLORI ANTIBODY IGGon 11-28 H. PYLORI IGG ABS 0.45 Index Value Normal 0.00-0.79 [facility] Comment on above: Result Comment: Nega tive <0.80 Equivocal 0.80 - 0.89 Positive >0.89 Performed By: #### L IPID, TSH, T7, URIC, CMP #### [facility] [address] [place] [address] [address] Conor Chan INSULINon 12-21-2021 Insulin 55.2 uIU/mL Critically high 2.6-24.9 [facility] Comment on above: Performed By: #### I NSULIN #### [facility] [address] [address] [address] Conor Chan TESTOSTERONE, TOTALon 2021 Testosterone [Mass/Vol] 380 ng/dL Normal 264-916 [facility] Comment on above: Result Comment: Adul t male reference interval is based on a population of healthy nonobese males (BMI <30) between 19 and 39 years old. román Cool.al. JCEM 2017,102;1349-3577. PMID: [id number]. Performed By: #### L IPID, TSH, T7, URIC, CMP #### [facility] [address] [address] [address] Conor Chan CBC AUTO DIFFon 12-20-2021 BASO # 0.0 103/ul Normal 0.0-0.1 [facility] Comment on above: Performed By: #### C BC #### [facility] [address] [address] [address] Conor Chan Basophils/100 WBC (Bld) 0.5 % Normal 0.2-2.0 [facility] Comment on above: Performed By: #### C BC #### [facility] [address] [address] [address] Conor Chan EO # 0.2 103/ul Normal 0.0-0.7 [facility] Comment on above: Performed By: #### C BC #### [facility] [address] [address] [address] Conor Chan Eosinophils/100 WBC (Bld) 3.5 % Normal 0.9-7.0 [facility] Comment on above: Performed By: #### C BC #### [facility] [address] [address] [address] Conor Chan Erythrocyte distribution width (RBC) [Ratio] 13.8 % Normal 11.0-15.0 [facility] Comment on above: Performed By: #### C BC #### [facility] [facility] [address] [address] [address] Conor Chan Hematocrit (Bld) [Volume fraction] 48.5 % Normal 42.0-54.0 [facility] Comment on above: Performed By: #### C BC #### [facility] [address] [address] [address] Conor Chan Hemoglobin (Bld) [Mass/Vol] 16.3 g/dL Normal 14.0-18.0 [facility] Comment on above: Performed By: #### C BC #### [facility] [address] [address] [address] Conor Chan IG # 0.02 10e3/ul Normal 0.00-0.03 [facility] Comment on above: Performed By: #### C BC #### [facility] [address] [place] [address] Dr. Conor Chan IG % 0.3 % Normal 0.0-0.5 [facility] Comment on above: Performed By: #### C BC #### [facility] [address] [place] [address] Dr. Conor Chan LYMPH # 1.4 103/ul Normal 1.2-3.8 [facility] Comment on above: Performed By: #### C BC #### [facility] [address] [place] [address] Dr. Conor Chan Lymphocytes/100 WBC (Bld) 21.7 % Normal 20.5-60.0 [facility] Comment on above: Performed By: #### C BC #### [facility] [address] [place] [address] Dr. Conor Chan MANUAL DIFF REQ NO Normal [facility] Comment on above: Performed By: #### C BC #### [facility] [address] [place] [address] Dr. Conor Chan MCH (RBC) [Entitic mass] 28.5 pg Normal 25.9-34.0 [facility] Comment on above: Performed By: #### C BC #### [facility] [address] [place] [address] Dr. Conor Chan MCHC (RBC) [Mass/Vol] 33.6 g/dL Normal 29.9-35.2 [facility] Comment on above: Performed By: #### C BC #### [facility] [address] [place] [address] Dr. Conor Chan MCV (RBC) [Entitic vol] 84.9 fL Normal 80.0-94.0 [facility] Comment on above: Performed By: #### C BC #### [facility] [address] [place] [address] Dr. Conor Chan MONO # 0.6 103/ul Normal 0.3-0.8 [facility] Comment on above: Performed By: #### C BC #### [facility] [address] [place] [address] Dr. Conor Chan Monocytes/100 WBC (Bld) 9.3 % Normal 1.7-12.0 [facility] Comment on above: Performed By: #### C BC #### [facility] [address] [place] [address] Dr. Conor Chan NEUT # 4.1 103/ul Normal 1.4-6.5 [facility] Comment on above: Performed By: #### C BC #### [facility] [address] [place] [address] Dr. Conor Chan Neutrophils/100 WBC (Bld) 64.7 % Normal 43.0-75.0 [facility] Comment on above: Performed By: #### C BC #### [facility] [address] [place] [address] Dr. Conor Chan Platelet mean volume (Bld) [Entitic vol] 9.8 fL Normal 9.5-13.5 [facility] Comment on above: Performed By: #### C BC #### [facility] [address] [place] [address] Dr. Conor Chan PLT 235 103/ul Normal 150-450 [facility] Comment on above: Performed By: #### C BC #### [facility] [address] [place] [address] Dr. Conor Chan RBC 5.71 106/ul Normal 4.70-6.10 [facility] Comment on above: Performed By: #### C BC #### [facility] [address] [place] [address] Dr. Conor Chan WBC 6.4 103/ul Normal 4.0-11.0 [facility] Comment on above: Performed By: #### C BC #### [facility] [address] [place] [address] Dr. Conor Chan FREE THYROXINE INDEX T7on FTI 2.89 Normal [facility] Comment on above: Performed By: #### L IPID, TSH, T7, URIC, CMP #### [facility] [address] [place] [address] Dr. Conor Chan T3U 34.0 % Normal 23.5-40.5 [facility] Comment on above: Performed By: #### L IPID, TSH, T7, URIC, CMP #### [facility] [address] [place] [address] Dr. Conor Chan T4 [Mass/Vol] 8.50 ug/dL Normal 5.53-11.00 [facility] Comment on above: Performed By: #### L IPID, TSH, T7, URIC, CMP #### [facility] [address] [place] [address] Dr. Conor Chan GLYCOHEMOGLOBIN A1Con 2021 ADA RECOMMENDATION ADA THERAPEUTIC TARG ET 6.0 - 7.0 ACTION SUGGESTED > 7.0 Normal [facility] Comment on above: Performed By: #### A 1C #### [facility] [address] [place] [address] Dr. Conor Chan Glucose [Mass/Vol] 126 mg/dL Normal [facility] Comment on above: Performed By: #### A 1C #### [facility] [address] [place] [address] Dr. Conor Chan HbA1c (Bld) [Mass fraction] 6.0 % Normal <=6.0 [facility] Comment on above: Performed By: #### A 1C #### [facility] [address] [place] [address] Dr. Conor Chan LIPID PROFILEon 12-20-2021 CHOL-HDL RATIO NORM SEE BELOW Normal [facility] Comment on above: Result Comment: 3.3 - 4.4 LOW RISK 4.4 - 7.1 AVERAGE RISK 7.1 - 11.0 MODERATE RISK >11.0 HIGH RISK Performed By: #### L IPID, TSH, T7, URIC, CMP #### [facility] [address] [place] [address] Dr. Conor Chan Cholesterol [Mass/Vol] 161 mg/dL Normal <=200 [facility] Comment on above: Performed By: #### L IPID, TSH, T7, URIC, CMP #### [facility] [address] [address] [address] Conor Chan Cholesterol in HDL [Mass/Vol] 50 mg/dL Normal [facility] Comment on above: Performed By: #### L IPID, TSH, T7, URIC, CMP #### [facility] [address] [address] [address] Conor Chan Cholesterol in LDL [Mass/Vol] 96.0 mg/dL Normal [facility] Comment on above: Performed By: #### L IPID, TSH, T7, URIC, CMP #### [facility] [address] [address] [address] Conor Chan Cholesterol.total/ Cholesterol in HDL [Mass ratio] 3.2 {ratio} Normal [facility] Comment on above: Performed By: #### L IPID, TSH, T7, URIC, CMP #### [facility] [address] [address] [address] Conor Chan HDL NORMAL > or = 60 mg/dl - LO W CARDIOVASCULAR RISK <40 mg/dl - HIGH CARDIOVASCULAR RISK Normal [facility] Comment on above: Performed By: #### L IPID, TSH, T7, URIC, CMP #### [facility] [address] [address] [address] Conor Chan LDL CALC NORMAL SEE BELOW Normal [facility] Comment on above: Result Comment: <100 mg/dl OPTIMAL 100 - 129 mg/dl NEAR OR ABOVE OPTIMAL 130 - 159 mg/dl BORDERLINE HIGH 160 - 189 mg/dl HIGH >190 mg/dl VERY HIGH Performed By: #### L IPID, TSH, T7, URIC, CMP #### [facility] [address] [address] [address] Conor Chan Triglyceride [Mass/Vol] 75 mg/dL Normal <=150 [facility] Comment on above: Performed By: #### L IPID, TSH, T7, URIC, CMP #### [facility] [address] [address] [address] Conor Chan VLDL CALC 15.0 mg/dL Normal [facility] Comment on above: Performed By: #### L IPID, TSH, T7, URIC, CMP #### [facility] [address] [place] [address] Dr. Conor Chan PROF 14(COMP METB)on 022 Albumin [Mass/Vol] 3.7 g/dL Normal 3.5-5.0 [facility] Comment on above: Performed By: #### L IPID, TSH, T7, URIC, CMP #### [facility] [address] [place] [address] Dr. Conor Chan Albumin/Globulin [Mass ratio] 0.9 {ratio} Normal [facility] Comment on above: Performed By: #### L IPID, TSH, T7, URIC, CMP #### [facility] [address] [place] [address] Dr. Conor Chan ALP [Catalytic activity/Vol] 58 U/L Normal 38-126 [facility] Comment on above: Performed By: #### L IPID, TSH, T7, URIC, CMP #### [facility] [address] [place] [address] Dr. Conor Chan ALT [Catalytic activity/Vol] 40 U/L Normal 21-72 [facility] Comment on above: Performed By: #### L IPID, TSH, T7, URIC, CMP #### [facility] [address] [place] [address] Dr. Conor Chan Anion gap [Moles/Vol] 5.5 mmol/L Normal [facility] Comment on above: Performed By: #### L IPID, TSH, T7, URIC, CMP #### [facility] [address] [place] [address] Dr. Conor Chan AST [Catalytic activity/Vol] 18 U/L Normal 17-59 [facility] Comment on above: Performed By: #### L IPID, TSH, T7, URIC, CMP #### [facility] [address] [place] [address] Dr. Conor Chan Bilirubin [Mass/Vol] 0.5 mg/dL Normal 0.2-1.3 [facility] Comment on above: Performed By: #### L IPID, TSH, T7, URIC, CMP #### [facility] [address] [place] [address] Dr. Conor Chan Calcium [Mass/Vol] 9.9 mg/dL Normal 8.4-10.2 [facility] Comment on above: Performed By: #### L IPID, TSH, T7, URIC, CMP #### [facility] [address] [place] [address] Dr. Conor Chan Chloride [Moles/Vol] 97 mmol/L Critically low 98-107 [facility] Comment on above: Performed By: #### L IPID, TSH, T7, URIC, CMP #### [facility] [address] [place] [address] Dr. Conor Chan CO2 [Moles/Vol] 30.7 mmol/L Critically high 22.0-30.0 [facility] Comment on above: Performed By: #### L IPID, TSH, T7, URIC, CMP #### [facility] [address] [place] [address] Dr. Conor Chan Creatinine [Mass/Vol] 1.04 mg/dL Normal 0.66-1.25 [facility] Comment on above: Performed By: #### L IPID, TSH, T7, URIC, CMP #### [facility] [address] [place] [address] Dr. Conor Chan EGFR-AF [facility] >60 Normal >=60 [facility] Comment on above: Performed By: #### L IPID, TSH, T7, URIC, CMP #### [facility] [address] [place] [address] Dr. Conor Chan EGFR-NON AF [facility] >60 Normal >=60 [facility] Comment on above: Performed By: #### L IPID, TSH, T7, URIC, CMP #### [facility] [address] [place] [address] Dr. Conor Chan Globulin (S) [Mass/Vol] 4.2 g/dL Normal [facility] Comment on above: Performed By: #### L IPID, TSH, T7, URIC, CMP #### [facility] [address] [place] [address] Dr. Conor Chan Glucose [Mass/Vol] 122 mg/dL Critically high 74-106 [facility] Comment on above: Performed By: #### L IPID, TSH, T7, URIC, CMP #### [facility] [address] [place] [address] Dr. Conor Chan Potassium [Moles/Vol] 3.2 mmol/L Critically low 3.4-5.0 [facility] Comment on above: Performed By: #### L IPID, TSH, T7, URIC, CMP #### [facility] [address] [place] [address] Dr. Conor Chan Protein [Mass/Vol] 7.9 g/dL Normal 6.1-8.2 [facility] Comment on above: Performed By: #### L IPID, TSH, T7, URIC, CMP #### [facility] [address] [place] [address] Dr. Conor Chan Sodium [Moles/Vol] 130 mmol/L Critically low 137-145 [facility] Comment on above: Performed By: #### L IPID, TSH, T7, URIC, CMP #### [facility] [address] [place] [address] Dr. Conor Chan Urea nitrogen [Mass/Vol] 15.0 mg/dL Normal 9.0-20.0 [facility] Comment on above: Performed By: #### L IPID, TSH, T7, URIC, CMP #### [facility] [address] [place] [address] Dr. Conor Chan Urea nitrogen/Creatinin e [Mass ratio] 14.4 mg/mg Normal [facility] Comment on above: Performed By: #### L IPID, TSH, T7, URIC, CMP #### [facility] [address] [place] [address] Dr. Conor Chan TSHon 12-20-2021 TSH 2.122 uIU/mL Normal 0.470-4.680 [facility] Comment on above: Performed By: #### L IPID, TSH, T7, URIC, CMP #### [facility] [address] [place] [address] Dr. Conor Chan TSH RANGE SEE BELOW Normal [facility] Comment on above: Result Comment: <0.3 4 UIU/ml HYPERTHYROID 0.34-5.60 UIU/ml EUTHYROID >5.60 UIU/ml HYPOTHYROID Performed By: #### L IPID, TSH, T7, URIC, CMP #### [facility] [address] [place], [place] [address] Dr. Conor Chan URIC ACID SERUMon 12-20-2021 Urate [Mass/Vol] 7.3 mg/dL Normal 3.5-8.5 [facility] Comment on above: Performed By: #### L IPID, TSH, T7, URIC, CMP #### [facility] [address] [place], [place] [address] Dr. Conor Chan XR LSPINE MIN 4 [...] Car LUCIANO Work Phone: [facility] 07-14-2025 08:50-0400 Body mass index (BMI) [Ratio] 37.51 kg/m2 Car LUCIANO Work Phone: [facility] 07-14-2025 08:50-0400 Body weight 125.47 kg Car LUCIANO Work Phone: [facility] 07-20-2024 13:29-0400 Blood Pressure Location Rell ADAMSON [facility] 07-20-2024 13:29-0400 Diastolic blood pressure 78 mm[Hg] Rell NILL [facility] 07-20-2024 13:29-0400 Heart rate 72 /min Rell VALENCIAL [facility] 07-20-2024 13:29-0400 Respiratory rate 16 /min Rell VALENCIAL [facility] 07-20-2024 13:29-0400 Systolic blood pressure 116 mm[Hg] Rell VALENCIAL [facility] 07-08-2024 09:47-0400 Body height 182.9 cm Car LUCIANO Work Phone: [facility] 07-08-2024 09:47-0400 Body mass index (BMI) [Ratio] 36.84 kg/m2 Car LUCIANO Work Phone: [facility] 07-08-2024 09:47-0400 Body weight 123.2 kg Car LUCIANO Work Phone: [facility] 2023 08:03-0400 Body height 182.9 cm Bilal Butt Work Phone: [facility] 2023 08:03-0400 Body weight 120.2 kg Bilal Butt Work Phone: [facility] 06-02-2023 13:26-0400 Body height 182.9 cm Darren Elizabeth APRN.FORENSIC PSYCHOLOGIST Work Phone: [facility] 06-02-2023 13:26-0400 Body weight 117.03 kg Darren Elizabeth APRN.FORENSIC PSYCHOLOGIST Work Phone: [facility] 06-02-2023 13:26-0400 Diastolic blood pressure 84 mm[Hg] Darren Elizabeth APRN.FORENSIC PSYCHOLOGIST Work Phone: [facility] 06-02-2023 13:26-0400 Heart rate 63 /min Darren Elizabeth APRN.FORENSIC PSYCHOLOGIST Work Phone: [facility] 06-02-2023 13:26-0400 Respiratory rate 18 /min Darren Elizabeth QUALITY SUPERVISOR.FORENSIC PSYCHOLOGIST Work Phone: [facility] 06-02-2023 13:26-0400 SaO2% (BldA) [Mass fraction] 95 % Darren Elizabeth QUALITY SUPERVISOR.FORENSIC PSYCHOLOGIST Work Phone: [facility] 06-02-2023 13:26-0400 Systolic blood pressure 128 mm[Hg] Darren Elizabeth QUALITY SUPERVISOR.FORENSIC PSYCHOLOGIST Work Phone: [facility] 05-13-2023 11:22-0400 Body height 182.88 cm Avi M Hoy Work Phone: [facility] DO Work Phone: 05-13-2023 11:22-0400 Body mass index (BMI) [Ratio] 36.21 kg/m2 Avi M Hoy Work Phone: [facility] DO Work Phone: 05-13-2023 11:22-0400 Body surface area Derived from formula 2.41 m2 Avi M Hoy Work Phone: [facility] DO Work Phone: 05-13-2023 11:22-0400 Body weight 121.11 kg Avi M Hoy Work Phone: [facility] DO Work Phone: 05-13-2023 11:22-0400 Diastolic blood pressure 78 mm[Hg] Avi M Hoy Work Phone: [facility] DO Work Phone: 05-13-2023 11:22-0400 Heart rate 64 /min Avi M Hoy Work Phone: [facility] DO Work Phone: 05-13-2023 11:22-0400 Systolic blood pressure 132 mm[Hg] Avi M Hoy Work Phone: [facility] DO Work Phone: 05-07-2022 11:36-0400 Body height 182.88 cm Avi Aguilar Hoy Work Phone: [facility] DO Work Phone: 05-07-2022 11:36-0400 Body mass index (BMI) [Ratio] 38.38 kg/m2 Avi Lauren Hoy Work Phone: [facility] DO Work Phone: 05-07-2022 11:36-0400 Body surface area Derived from formula 2.47 m2 Avi Lauren Hoy Work Phone: [facility] DO Work Phone: 05-07-2022 11:36-0400 Body weight 128.37 kg Avi Lauren Hoy Work Phone: [facility] DO Work Phone: 05-07-2022 11:36-0400 Diastolic blood pressure 72 mm[Hg] Avi Lauren Hoy Work Phone: [facility] DO Work Phone: 05-07-2022 11:36-0400 Heart rate 66 /min Avi Lauren Hoy Work Phone: [facility] DO Work Phone: 05-07-2022 11:36-0400 Systolic blood pressure 110 mm[Hg] Avi Lauren Hoy Work Phone: [facility] DO Work Phone: Encounters Encounter Date Encounter Type Care Provider Facility Start: 07-15-2025 End: 07-15-2025 Clinisync Result Encounter Car LUCIANO Work Phone: [facility] External Department Unsolicited Start: 07-15-2025 End: 07-16-2025 Clinisync Result Encounter Car LUCIANO Work Phone: [facility] External Department Unsolicited Start: 07-15-2025 End: 07-16-2025 External Result Encounter Car LUCIANO Work Phone: [facility] External Department Unsolicited Start: 07-15-2025 End: 07-15-2025 ambulatory Avi Yepez MD Work Phone: [facility] Work Phone: Start: 07-15-2025 End: 07-15-2025 Departed Referred Car LUCIANO-[facility] Start: 07-14-2025 End: 07-14-2025 Bamboo flowsheet Car LUCIANO Work Phone: [facility] Start: 07-14-2025 End: 07-14-2025 Bamboo flowsheet Car LUCIANO Work Phone: [facility] Start: 07-14-2025 Encounter for other preprocedural examination Car Cuellar [facility] Start: 07-14-2025 End: 07-14-2025 Patient encounter procedure Car LUCIANO Work Phone: [facility] Comment on above: Pre-op examination ( Primary Dx); Arthritis of left knee Start: 07-14-2025 End: 07-14-2025 Preprocedural examination done Car LUCIANO Work Phone: [facility] Healthcare Start: 07-14-2025 End: 07-14-2025 ambulatory Avi Yepez MD Work Phone: [facility] Work Phone: Start: 07-04-2025 End: 07-04-2025 ambulatory Evelyne Polk MD [facility] Start: 06-17-2025 End: 06-17-2025 Bamboo flowsheet Car LUCIANO Work Phone: [facility] Start: 06-17-2025 End: 06-17-2025 Bamboo flowsheet Car LUCIANO Work Phone: [facility] Start: 06-13-2025 End: 06-13-2025 ambulatory Evelyne Polk MD Facility:[facility] Start: 04-20-2025 End: 04-20-2025 Bamboo flowsheet Jr. Elias Saucedo Stepanic DO Work Phone: [facility] Start: 04-20-2025 End: 04-20-2025 Bamboo flowsheet Jr. Elias Saucedo Stepanic DO Work Phone: [facility] Start: 04-20-2025 End: 04-20-2025 Office outpatient visit 40 minutes Herbie Saucedo Stepanic DO Work Phone: [facility] Comment on above: Acute pain of left k nee (Primary Dx); Arthritis of left knee Start: 04-20-2025 End: 04-20-2025 ambulatory Herbie, ELIAS Lewis STEPMARIANO Not Available Start: 03-04-2025 End: 03-04-2025 ambulatory [facility] Start: 02-18-2025 End: 02-18-2025 Office outpatient visit 15 minutes Car Cuellar PA Work Phone: [facility] Comment on above: Acute pain of left k nee (Primary Dx); Arthritis of left knee; Knee instability, left Start: 02-18-2025 End: 02-18-2025 ambulatory CAR CUELLAR Not Available Start: 12-13-2024 End: 12-13-2024 ambulatory Evelyne Polk MD Facility:[facility] Start: 09-09-2024 End: 09-09-2024 [facility] Start: 09-08-2024 End: 09-08-2024 ambulatory Rell ADAMSON Facility:[facility] Start: 09-08-2024 End: 09-08-2024 Patient encounter procedure Rell ADAMSON [facility] Start: 08-30-2024 End: 08-30-2024 Bamboo flowsheet Car [...] 08-25-2024 ambulatory MD Avi Yepez Work Phone: [facility] Work Phone: Start: 08-25-2024 End: 08-25-2024 Departed Referred MD Avi Yepez Work Phone: [facility] Start: 08-25-2024 End: 08-25-2024 ambulatory Rell ADAMSON Facility:[id number] Start: 08-16-2024 End: 08-16-2024 Bamboo flowsheet [...] CUELLAR Not Available Start: 07-28-2024 End: 07-28-2024 Sadiq Peng NP Work Phone: [facility] Comment on above: Post-op pain (Primar y Dx) Start: 07-20-2024 End: 07-20-2024 ambulatory Rlel ADAMSON Facility:[facility] Start: 07-20-2024 End: 07-20-2024 Patient encounter procedure Rell ADAMSON [facility] Start: 07-19-2024 End: 07-19-2024 Bamboo flowsheet Maria E Liv PT [facility] Start: 07-19-2024 End: 07-19-2024 Bamboo flowsheet Maria E [place] PT [facility] Start: 07-19-2024 End: [...] 25 minutes Elias Thomas DO Work Phone: [facility] Comment on above: Internal derangement of left knee (Primary Dx) Start: 06-11-2024 End: 06-11-2024 [facility] Start: 06-09-2024 Non-patient / Non-visit MD Indra Yepez Work Phone: [facility] Work Phone: Start: 2023 End: 2023 ambulatory JUAN R LING Facility:[facility] Start: 2023 End: 2023 Office outpatient new 30 minutes Juan R Ling MD Work Phone: [facility] Comment on above: Meralgia paresthetic a of left side (Primary Dx); Chronic midline low back pain without sciatica Start: 08-01-2023 End: 08-01-2023 ambulatory Darren Elizabeth QUALITY SUPERVISOR.FORENSIC PSYCHOLOGIST Work Phone: [facility] Comment on above: Dr chong Cut me open Start: 07-01-2023 End: 07-01-2023 ambulatory NIKOLAY CAMP Facility:[facility] Start: 06-26-2023 Telephone encounter Nikolay Camp DO Work Phone: [facility] Comment on above: Preparations For Pro cedures (Pre-injection instructions) Start: 06-19-2023 Orders Only Nikolay hall DO Work Phone: Neurology Comment on above: Lumbar radiculopathy (Primary Dx); Displacement of lumbar intervertebral disc without myelopathy Start: 06-02-2023 End: 06-03-2023 ambulatory DARREN ELIZABETH Facility:[facility] Start: 06-02-2023 End: 06-02-2023 Patient encounter procedure Darren Elizabeth QUALITY SUPERVISOR.FORENSIC PSYCHOLOGIST Work Phone: [facility] [place] Comment on above: Radiculopathy, lumba r region (Primary Dx); Lumbar disc herniation Start: 05-13-2023 Office outpatient vi sit 25 minutes Avi Yepez Work Phone: [facility] [facility] DO Work Phone: Start: 05-13-[address] Reilly Nelson II Facility: Start: 05-06-2023 Chart abstracting None (Historical) Neurology Start: 12-16-2022 Rx Renewal Avi Yepez Work Phone: [facility] [facility] DO Work Phone: Start: 07-17-2022 End: 07-17-2022 Departed Referred MD Avi Yepez Work Phone: [facility] [address] Start: 05-07-2022 Office outpatient vi sit 25 minutes Avi Yepez Work Phone: [facility] [facility] DO Work Phone: Start: 01-03-[address] AVI YEPEZ Facility :H1 Start: 12-21-2021 Encounter for genera l adult medical examination without abnormal findings DR AVI YEPEZ [facility] Start: 12-20-2021 End: 12-21-[address] AVI YEPEZ Facility:H1 Start: 12-20-2021 End: 12-21-2021 Encounter for general adult medical examination without abnormal findings DR AVI YEPEZ Facility:H1 Start: 12-10-2021 Rx Renewal Reilly mcmahon MD Work Phone: [facility] [facility] DO Work Phone: Procedures Date Procedure Procedure Detail Performing Clinician Start: 07-15-2025 Culture bacterial quanttative colony count urine Car LUCIANO Work Phone: Start: 07-15-2025 [facility] CMP (CMP) (FOR REMOTE [facility] USE) Donald LUCIANO Work Phone: Start: 07-15-2025 [...] Colonoscopy Rell ADAMSON Start: 08-25-2024 Esophagogastroduodenoscopy Rell ADAMSON Start: 07-09-2024 ALL CBC WITH AUTO DIFF Car Farris Work Phone: Start: 07-17-2022 Radiologic examination of knee MD Puja Yepez Work Phone: Start: 12-20-[address] AVI YEPEZ Comment on above: Performed By: #### [facility]ASC #### [facility] [address] [place] [address] Dr. Conor Chan Start: 06-09-2020 Total colonoscopy Reilly Nelson MD Work Phone: Start: 07-02-2019 End: 07-02-2019 Colonoscopy Darren Elizabeth QUALITY SUPERVISOR.FORENSIC PSYCHOLOGIST Work Phone: Cardiac catheterization Will renetta Nelson MD Work Phone: Cardiac catheterization Jorge ADAMSON Cholecystectomy Reilly miranda MD Work Phone: Cholecystectomy Rell ADAMSON Nasal septoplasty Rell MORALEZ Plan of Treatment Date Care Activity Detail Author Start: 08-25-2034 Screening for malign ant neoplasm of colon [facility] Start: 07-02-2029 Screening for malign ant neoplasm of colon [facility] Start: 12-20-2026 PROSTATE CANCER SCREENING DISCUSSION PROSTATE CANCER SCREENING DISCUSSION [facility] Start: 08-25-2025 End: 08-25-2025 Patient encounter procedure 08/25/2025 1:30 PM EDT Office Visit [facility] [address] [place] [address] Corona Peng, TELLERS SUPERVISOR [address] [place] [address] [facility] Start: 08-05-2025 End: 08-05-2025 ambulatory 08/05/2025 1:30 PM EDT Evaluation [facility] [place] [facility] [address] [place] [address] Tigist Mukherjee, PT [facility] Start: 07-15-2025 Bacteria identified in Urine by Culture [facility] Start: 07-15-2025 Urine culture [facility] Start: 07-14-2025 End: 07-14-2026 aPTT in Blood by Coagulation assay APTT Lab Routine Arthritis of left knee Pre-op examination Expected: 07/14/2025, Expires: 07/14/2026 [facility] Work Phone: Comment on above: Expected: 07/14/2025 , Expires: 07/14/2026 Start: 07-14-2025 End: 07-14-2026 Bacteria identified in Urine by Culture Urine culture Microbiology Routine Arthritis of left knee Pre-op examination Expected: 07/14/2025 (Approximate), Expires: 07/14/2026 [facility] Comment on above: Expected: 07/14/2025 (Approximate), Expires: 07/14/2026 Start: 07-14-2025 End: 07-14-2026 CBC W Auto Differential panel - Blood CBC and differential Lab Routine Arthritis of left knee Pre-op examination Expected: 07/14/2025 (Approximate), Expires: 07/14/2026 [facility] Comment on above: Expected: 07/14/2025 (Approximate), Expires: 07/14/2026 Start: 07-14-2025 End: 07-14-2026 Comprehensive metabolic 2000 panel - Serum or Plasma Comprehensive metabolic panel Lab Routine Arthritis of left knee Pre-op examination Expected: 07/14/2025 (Approximate), Expires: 07/14/2026 [facility] Comment on above: Expected: 07/14/2025 (Approximate), Expires: 07/14/2026 Start: 07-14-2025 End: 07-14-2026 ECG 12 lead ECG 12 lead ECG Routine Arthritis of left knee Pre-op examination Expected: 07/14/2025 (Approximate), Expires: 07/14/2026 [facility] Comment on above: Expected: 07/14/2025 (Approximate), Expires: 07/14/2026 Start: 07-14-2025 End: 07-14-2026 Prothrombin time (PT) in Blood by Coagulation assay Protime-INR Lab Routine Arthritis of left knee Pre-op examination Expected: 07/14/2025 (Approximate), Expires: 07/14/2026 [facility] Comment on above: Expected: 07/14/2025 (Approximate), Expires: 07/14/2026 Start: 07-14-2025 End: 07-14-2026 Urinalysis complete panel - Urine Urinalysis with reflex microscopic Lab Routine Arthritis of left knee Pre-op examination Expected: 07/14/2025 (Approximate), Expires: 07/14/2026 [facility] Comment on above: Expected: 07/14/2025 (Approximate), Expires: 07/14/2026 Start: 07-14-2025 End: 07-14-2026 XR Femur and Tibia Views for leg length XR lower extremity leg length evaluation Imaging Routine Arthritis of left knee Pre-op examination Expected: 07/14/2025 (Approximate), Expires: 07/14/2026 [facility] Comment on above: Expected: 07/14/2025 (Approximate), Expires: 07/14/2026 Start: 07-14-2025 End: 07-14-2025 Patient encounter procedure [facility] Comment on above: Pre-op examination ( Primary Dx); Arthritis of left knee Start: 06-27-2025 Influenza vaccination Influenza Vacc ine (#1) [facility] Start: 06-17-2025 End: 06-17-2025 Patient encounter procedure [facility] Comment on above: Acute pain of left k nee (Primary Dx) Start: 04-20-2025 End: 04-20-2025 Patient encounter procedure 04/20/2025 8:30 AM EDT Office Visit [facility] [address] [place] [address] Jr. Elias Thomas DO [address] [place] [address] Arrived [facility] Comment on above: Arrived Start: 08-30-2024 End: 08-30-2024 Patient encounter procedure 08/30/2024 10:15 AM EST Office Visit [facility] [address] [place] [address] Car Cuellar, PA [address] [place] [address] S/P left knee arthroscopy (Primary Dx) [facility] Comment on above: S/P left knee arthro scopy (Primary Dx) Start: 08-25-2024 [facility] Start: 08-16-2024 End: 08-16-2024 Patient encounter procedure 08/16/2024 10:00 AM EDT Office Visit [facility] [address] [place] [address] Car Cuellar, PA [address] [place] [address] S/P left knee arthroscopy (Primary Dx) [facility] Comment on above: S/P left knee arthro scopy (Primary Dx) Start: 08-12-2024 End: 08-12-2024 Patient encounter procedure 08/12/2024 9:00 AM EDT Office Visit [facility] [address] [place] [address] Car Cuellar, PA [address] [place] [address] [facility] Start: 07-29-2024 End: 07-29-2024 Patient encounter procedure 07/29/2024 10:45 AM EDT Procedure Visit [facility] EXT Jr. Elias Dsouza DO [address] [place] [address] [facility] Start: 07-19-2024 End: 07-19-2024 ambulatory [facility] Comment on above: Internal derangement of left knee Start: 07-08-2024 End: 07-08-2025 CBC W Auto Differential panel - Blood CBC and differential Lab Routine Preop examination Expected: 07/08/2024 (Approximate), Expires: 07/08/2025 [facility] Work Phone: Comment on above: Expected: 07/08/2024 (Approximate), Expires: 07/08/2025 Start: 07-08-2024 End: 07-08-2024 Patient encounter procedure 07/08/2024 10:00 AM EDT Office Visit [facility] [address] [place] [address] Car Cuellar, PA [address] [place] [address] Preop examination (Primary Dx); Internal derangement of left knee [facility] Comment on above: Preop examination (P rimary Dx); Internal derangement of left knee Start: 06-27-2024 Influenza vaccination Influenza Vacc ine (#1) [facility] Start: 06-27-2023 Influenza vaccination [facility] Start: 05-13-2023 FUV, Provider: Reilly Nelson, Status: Pen, Time: 11:10 AM FUV, Provider: Reilly Nelson, Status: Pen, Time: 11:10 AM [facility] 250 DO Work Phone: Start: 10-27-2022 DEPRESSION ASSESSMENT DEPRESSION ASS ESSMENT [facility] Start: 05-17-2022 COVID-19 VACCINE (6 - Pfizer series) COVID-19 VACCINE (6 - Pfizer series) [facility] Start: 05-15-2022 FUV, Provider: Reilly Nelson, Status: Pen, Time: 2:00 PM FUV, Provider: Reilly Nelson, Status: Jus, Time: 2:00 PM [facility] [facility] DO Work Phone: Start: 07-02-2020 Colonoscopy COLONOSCOPY [facility] Start: 07-02-2020 COLORECTAL CANCER SCREENING COLORECTAL CANCER SCREENING [facility] Start: 2016 Prostate Cancer Screening Discussion Prostate Cancer Screening Discussion [facility] Start: 2011 SHINGRIX VACCINE (1 of 2) SHINGRIX VACCINE (1 of 2) [facility] Start: 2006 COLOGUARD (FIT-DNA) COLOGUARD (FIT-D NA) [facility] Start: [address] COLONOGRAPHY [facility] Start: 2006 DIABETES SCREEN DIABETES SCREEN [facility] Start: 2006 Diabetes Screening Diabetes Screenin g [facility] Start: 2006 FECAL OCCULT BLOOD FECAL OCCULT BLOO D [facility] Start: 2006 SIGMOIDOSCOPY SIGMOIDOSCOPY [facility] Start: 1996 Lipid 1996 panel - Serum or Plasma Lipid Screening [facility] Start: 1996 LIPID SCREEN LIPID SCREEN [facility] Start: 1980 Urine microalbumin profile [facility] Start: 1979 HEPATITIS C SCREENING HEPATITIS C SC REENING [facility] Start: 1979 HIV SCREENING HIV SCREENING [facility] Start: 1961 Screening for malign ant neoplasm of colon [facility] End: 09-02-2024 Radex spine lumbosacral minimum 4 views XR LUMBAR MOTION 4V AP/LAT/ FLEX/EXT Radiology Routine Meralgia paresthetica of left side 1 Occurrences starting 2023 until 09/02/2024 [facility] Work Phone: Comment on above: 1 Occurrences starti ng 2023 until 09/02/2024 SPINE INTERVENTION PROCEDURE SPINE INTERVENTION PROCEDURE Procedures Routine Radiculopathy, lumbar region Lumbar disc herniation Ordered: 06/02/2023 [facility] Work Phone: Comment on above: Ordered: 06/02/2023 [facility] RACHAEL [facility] Immunizations Immunization Date Immunization Notes Care Provider Deepa rehman 09-03-2024 influenza virus vaccine, unspecified formulation Car Cuellar PA Work Phone: [facility] 09-12-2023 influenza virus vaccine, unspecified formulation Jr. Thomas DO Work Phone: [facility] 10-14-2022 Pfizer COVID-19 Vac Bivalent 30 MCG/0.3ML Intramuscular Suspension Avi M Hoy Work Phone: [facility] 10-03-2022 influenza, injectabl e, quadrivalent, preservative free Avi M Hoy Work Phone: [facility] 250 DO Work Phone: 10-03-2022 influenza virus vaccine, unspecified formulation Darren Elizabeth APRN.FORENSIC PSYCHOLOGIST Work Phone: [facility] 03-22-2022 Comirnaty 30 MCG/0.3 ML Intramuscular Suspension Avi M Hoy Work Phone: [facility] 250 DO Work Phone: 03-22-2022 Moderna COVID-19 Vaccine 100 MCG/0.5ML Intramuscular Suspension Avi M Hoy Work Phone: [facility] Comment on above: Series: 03-22-2022 SARS-CoV-2 mRNA (hlrkognjlbt-pxjf-bvxfq se) vaccine Rell ADAMSON [facility] 03-22-2022 zoster vaccine recombinant Avi M Hoy Work Phone: [facility] 250 DO Work Phone: 09-03-2021 Pfizer-BioNTech COVID-19 Vacc 30 MCG/0.3ML Intramuscular Suspension Avi M Hoy Work Phone: [facility] 10-30-2021 influenza virus vaccine, unspecified formulation Rell ADAMSON [facility] 08-25-2021 influenza, injectabl e, quadrivalent, preservative free Avi Yepez Work Phone: [facility] 250 DO Work Phone: 08-25-2021 zoster vaccine recombinant Avi Yepez Work Phone: [facility] 250 DO Work Phone: 02-13-2021 Pfizer-BioNTech COVID-19 Vacc 30 MCG/0.3ML Intramuscular Suspension Avi Yepez Work Phone: [facility] 01-20-2021 SARS-CoV-2 (COVID-19 ) mRNA BNT-162b2 vax Rell ADAMSON [facility] 01-13-2021 Pfizer-BioNTech COVID-19 Vacc 30 MCG/0.3ML Intramuscular Suspension Avi Yepez Work Phone: [facility] 12-23-2020 Pfizer-BioNTech COVID-19 Vacc 30 MCG/0.3ML Intramuscular Suspension Avi Yepez Work Phone: [facility] 08-28-2020 influenza, injectabl e, quadrivalent, preservative free Avi Yepez Work Phone: [facility] 250 DO Work Phone: 08-28-2020 influenza virus vaccine, unspecified formulation Juan R Ling MD Work Phone: [facility] Payers Date Payer Category Payer Self-pay [id number] 2021 Private Health Insurance [id number] 2007 Managed Care O (unspecified) [id number] 1961 Unknown [id number] 1961 Unknown [id number] [id number] 1961 Unknown [id number] [id number] 1961 Unknown [id number] [id number] 1961 Unknown [id number] [id number] 1961 Unknown [id number] [id number] 1961 Unknown [id number] 2.16.840.1.564895.3.579.2.196 1961 Unknown [id number] 2.16.840.1.024573.3.579.2.196 1961 Unknown [id number] 2.16.840.1.676493.3.579.2.196 1961 Unknown [id number] 2.16.840.1.978048.3.579.2.125 9 1961 Unknown [id number] 2.16.840.1.787545.3.579.2.125 9 1961 Unknown [id number] 2.16.840.1.393327.3.579.2.125 9 1961 Unknown [id number] 2.16.840.1.430869.3.579.2.125 9 1961 Unknown [id number] 2.16.840.1.133079.3.579.2.125 9 1961 Unknown [id number] [id number] 9 1960 Private Health Insurance [id number] Self-pay [id number] Unknown Unknown [place] [id number] Unknown [id number] [id number] Unknown [id number] [id number] Unknown [id number] [id number] Social History Date Type Detail Facility Start: 06-02-2023 End: 07-14-2025 Consumes alcohol Consumes alcohol [facility] Comment on above: socially; occasional; Start: 09-28-2020 End: 05-10-2024 Tobacco smoking status MIIS Never smoked tobacco (finding) [facility] Start: 1960 Sex Assigned At Male F [facility] consumption unknown [facility] Start: 1960 Sex Assigned At Not on file [facility] Start: 06-02-2023 End: 07-14-2025 Gender identity Not on file [facility] Start: 06-02-2023 End: 05-10-2024 Tobacco use and exposure Smokeless tobacco non-user [facility] National Score (1-10 0), lower number is lower risk 61 [facility] Start: 07-28-2023 Gender identity Identifies as male gender (finding) [facility] Start: 07-28-2023 Sexual orientation Heterosexual (fin ding) [facility] Start: 07-08-2024 End: 07-14-2025 Alcoholic beverage intake Current drinker of alcohol (finding) [facility] Start: 05-10-2024 Alcohol Comment 1/WK [facility] Sex Male (finding) [facility] Functional Status Date Assessment Result Facility 09-08-2024 Functional Status N/A [facility] 07-20-2024 Functional Status N/A [facility] Clinical Notes 05-06-2023 to 07-14-2025 ANKITA Stapleton [...] (NEURONTIN) 300 mg, 2 times daily HYDROcodone-acetaminophen (Rosenberg) 5-325 MG tablet No dose, route, or frequency recorded. Iron Polysacch Zbaze-Y19-KX (Poly-Iron 150 Forte) 150-0.025-1 MG capsule 1 [...] - NO MEASUREMENTS REQUIRED ; LT TKA 10/16 APTT Standing Status: Future Number of Occurrences: [...] Gluconate (Hibiclens) 4 % solution Iron Polysacch Zgeqy-L57-EO (Poly-Iron 150 Forte) 150-0.025-1 MG capsule CANCELED: [...] August 25 2 1:30 with Corona in [place] . documented in this encounter [facility] 04-20-2025 History of Present illness Narrative Images [...] or the patient requires discharge to a fci facility, the patient may require to have additional inpatient hospital stay days following the surgery. Physical therapy is contraindicated in this patient''s case because of the pkto-ru-fvbw articulation of the patient's knee.. Questions answered in laymen terms at the bedside. The diagnosis, home exercise plan and any ongoing restrictions/ recommendations reviewed. If unable to be reached in office, I recommend evaluation at nearest Emergency Room if any symptoms worsened or new symptoms develop for requiring urgent evaluation. Visit was preformed using [employer]-pilot plant technician speech recognition. documented in this encounter [facility] 03-04-2025 Note DE Cardiology - [facility] Subjective Kim Nichols is [...] and he had carotid stenosis, sister had GA, mother had brain aneurysm ROS All systems [...] twice a day., Disp: , Rfl: HYDROcodone-acetaminophen (Rosenberg) 5-325 mg tablet, Take 1 tablet by [...] in (more content not included)... [facility] 02-18-2025 History of Present illness [...] Current pain management routine includes taking 2 Rosenberg before activity, which is not recommended. Discussed [...] requiring urgent evaluation. Visit was preformed using [employer] speech recognition. documented in this encounter [facility] 09-09-2024 Note Cardiology Clinic No te [...] as needed Richard Benitez MD Interventional Cardiology [facility] 08-30-2024 History of Present illness [...] documented in this encounter [facility] 08-16-2024 History of Present illness Narrative [...] documented in this encounter [facility] 08-16-2024 Instructions ANKITA Stapleton - 08/16/2024 [...] documented in this encounter [facility] 07-28-2024 Telephone encounter Note Post op pain rx. PDMP reviewed [facility] 07-28-2024 Miscellaneous Notes Post op pain rx. PDMP reviewed documented in this encounter [facility] 07-20-2024 Note General Surgery Offi ce/Clinic [...] tab(s), Oral, Ivy (more content not included)... [facility] Comment on above: Result Comment: [...] documented in this encounter [facility] 07-08-2024 History of Present illness Narrative [...] All questions answered and proposed surgery scheduled. (Clif) KNEE SCOPE 07/29 @TANMAY SX INSTRUCTIONS GIVEN TODAY 07/08 @10AM - [place] [facility] ; OBTAINED - NELLA PROTOCOL PT REFERRAL SENT ; CRUTCH TRAIN AND DISPENSE NPAR ([id number], [id number]) Follow up for 08/12 @9AM W/AMANDA IN [place]. documented in this encounter [facility] 06-21-2024 History of Present illness Narrative Images from the original note were not included. HISTORY OF PRESENT ILLNESS: EST PT Kim Nichols is an 63 y.o. @ male. EST PT RECHECK LT KNEE PAIN - POSSIBLY DISCUSS SURGERY- PT WAS GETTING A CARDIAC WORK UP- PT DID SEE DR BENITEZ (ELECTRIC MOTOR REPAIRING SUPERVISOR) 06/11/24; PT STATES HE IS CLEARED (OFFICE NOT IS UNDER ENCOUNTER) PT STATES HE WAS ADMITTED TO [facility] FOR A-FIB X 1DAY ~05/17/24 XRAY LT KNEE EPIC 05/10/24 XRAY LT KNEE [facility] 03/12/24 MRI LT KNEE [facility] 04/28/24 CORTISONE INJ 03/2024; TEMP RELIEF [...] Risk (06/11/2024) Received from [facility] Patient History Smoking Tobacco Use: Never [...] states that he was cleared per his supercharger repair supervisor ; we will need to obtain clearance [...] documented in this encounter [facility] 06-11-2024 Note Cardiology Clinic No te [...] or any previous visit (from the past 4463 hour(s)). Echo results: No echocardiogram results found [...] cardiac (more content not included)... [facility] 2023 Note HNO ID: [id number] Author: Juan R Ling MD Service: ? [...] issues. 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 [facility] 2023 Note HNO ID: [id number] Author: Bossman Saunders Service: ? Author Type: [...] opioids Medications: [facility] MEDICATIONS: Gabapentin, Rosenberg, Tylenol Have you ever seen a pain [...] or completing routine daily living activities? No [facility] 2023 History of Present illness [...] issues. 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 Author Type: Nurse Practitioner Type: Progress Notes Filed: 08/01/2023 1:30 PM Note Text: SPINE SURGERY ESTABLISHED VISIT This is a virtual visit using [employer] Video Visit. It required patient-provider interaction for the medical decision making as documented below. DATE OF SERVICE: 08/01/2023 DATE OF LAST VISIT: 06/02/2023 SUBJECTIVE: HPI:Kim Nichols is a 62 year old male presenting via virtual vist s/p Left L5 transforaminal epidural steroid injection on 07/01/[address] Camp. Savage great initially and for the first few days after injection, symptoms returned shortly after. Patient has increased his Gabapentin 300 mg from BID to TID and is feeling good today. 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 SIGNATURE: Darren Elizabeth APRN.CNP PATIENT NAME: Kim Nichols DATE: August 01, 2023 TIME: 12:53 PM PAGER: [facility] 06-26-2023 Miscellaneous Notes Phoned patient and message left for Kim to confirm appointment for Kim Nichols for spine procedure on 07/01/2023. Patient notified that [facility] will call patient the night before with the time to arrive for injection. Patient verbalized understanding of the following: -Provided education on spine procedure and answered questions related to spine injection procedure. -Manager Reimbursement is needed to drive patient home. -NPO [...] to report. Diabetic: No Patient given number [phone], spine injections schedulers, if there is any [...] INSTRUCTIONS documented in this encounter [facility] 06-02-2023 Note HNO ID: [id number] Author: Darren Elizabeth APRN.KIRILL Service: ? Author [...] with him pain. He also is prescribed Rosenberg for breakthrough pain which he only takes [...] Normal. DATA REVIE (more content not included)... [facility] 06-02-2023 History of Present illness Narrative [...] with him pain. He also is prescribed Rosenberg for breakthrough pain which he only takes [...] which included preparing to see the patient, [id number] patient care, completing clinical documentation, obtaining and/or reviewing separately obtained history, performing a medically appropriate examination, counseling and educating the patient/family/caregiver, independently interpreting results (not separately reported), and communicating results to the patient/family/caregiver. SIGNATURE: Darren Elizabeth APRN.KIRILL PATIENT NAME: Kim Nichols DATE: June 02, 2023 TIME: 1:57 PM PAGER: documented in this encounter [facility] 05-14-2023 Note HNO ID: [id number] Author: Ember Delatorre PA-C Service: ? Author Type: Physician French Lecturer Type: Progress Notes Filed: 05/14/2023 4:17 PM Note Text: Per Triage: Kim Nichols is a 62 year old male that requests evaluation of lumbar spine. Per review, they have symptoms of back and LLE pain. Positive for numbness. CMT: Medication: Gabapentin, Tylenol, Rosenberg Studies (Reports unless indicated) MRI Lumbar: L4/5 moderate left foramen narrowing which may contribute to patient's symptoms 2. L5/S1 disc protrusion without significant canal or foramen narrowing. Disposition: Please schedule with surgical SANDY. Consider if injection is appropriate or on effective dose of Neurontin. Also see if symptoms correlate with imaging. [facility] 05-14-2023 History of Present illness Narrative Per Triage: Kim Nichols is a 62 year old male that requests evaluation of lumbar spine. Per review, they have symptoms of back and LLE pain. Positive for numbness. CMT: Medication: Gabapentin, Tylenol, Rosenberg Studies (Reports unless indicated) MRI Lumbar: L4/5 [...] Health Provider or Pain Management Provider at [facility]? No If answer is YES please [...] the MRI/CT/myelogram was completed: [facility] [address] [place] [address] MRI/CT/myelogram viewable in Epic: No If not, please provide [phone] to fax in imaging reports for review. [...] Hydrocodone documented in this encounter [facility] 05-06-2023 Note HNO ID: [id number] Author: Mauricio Kelley Service: ? Author Type: ? Type: Progress Notes Filed: 05/14/2023 4:17 PM Note Text: Patient name: Kim Nichols Are you being referred by a [facility] for [facility] Provider or Pain Management Provider at [facility]? No If answer is YES please schedule directly with surgeon, triage does not need to be completed. Is this a self-referral No If not, who is the Referring Provider vAi Yepez Is this a 2nd opinion? No Were you offered surgery? No MRI/CT/myelogram within 12 months? Yes If NO , please refer to medical spine or PCP to complete above imaging, triage does not need to be completed If YES,? please ask for the name/address of the facility where the MRI/CT/myelogram was completed: [facility] [place] [address] [id number] MRI/CT/myelogram viewable in Epic: No If not, please provide [phone] to fax in imaging reports for review. [...] the surgery was completed: Additional Comments Hydrocodone [facility] Evaluation + Plan note No data available for this section [facility] Evaluation note No assessment inform ation available [facility] Work Phone: Evaluation note Diagnosis Radiculopathy, lumbar region- Primary Thoracic or lumbosacral neuritis or radiculitis, unspecified Lumbar disc herniation Displacement of lumbar intervertebral disc without myelopathy [facility] Diagnosis Lumbar radiculopathy- Primary Thoracic or lumbosacral neuritis or radiculitis, unspecified Displacement of lumbar intervertebral disc without myelopathy [facility] Diagnosis Meralgia paresthetica of left side- Primary Meralgia paresthetica Chronic midline low back pain without sciatica [facility] Diagnosis Post-op pain- Primary Other acute postoperative pain documented in this encounter [facility]* Diagnosis S/P left knee arthroscopy- Primary documented in this encounter [facility]* Diagnosis S/P left knee arthroscopy- Primary documented in this encounter [facility]* Diagnosis Preop examination- Primary Unspecified pre-operative examination Internal derangement of left knee documented in this encounter [facility]* Diagnosis Internal derangement of left knee- Primary documented in this encounter [facility]* Diagnosis Internal derangement of left knee- Primary Need for crutch training documented in this encounter [facility]* Diagnosis Acute pain of [...] to their favorable impact on blood pressure andcholesterol.[facility] 250 DO Work Phone: History of Present [...] to call if they arise or occur. [facility] 099 [address] Work Phone: History of Present illness Narrative* [...] to call if they arise or occur. [facility] 250 DO Work Phone: Hospital Discharge instructions No data available for this section [facility] Fern Progress note No data available for this section [facility] Reason for referral (narrative)* Diagnostic Procedure Only (Routine) - Pending Review Specialty Diagnoses / Procedures Referred By Erlinda mao Referred To Contact XR IMAGING Diagnoses Meralgia paresthetica of left side Procedures XR LUMBAR MOTION 4V AP/LAT/ FLEX/EXT RADEX SPINE LUMBOSACRAL MINIMUM 4 VIEWS Juan R Ling MD [address] [place] [address] [place] [address] Referral ID Status Reason Start Date Expiration Date Visits Requested Visits Authorized [id number] Pending Review Auto-Generat ed Referral 2023 09/02/2024 1 1 [facility] for referral (narrative)* Consultation (Routine) - Pending Review Specialty Diagnoses / Procedures Referred By Erlinda mao Referred To Contact Physical Therapy Diagnoses Internal derangement of left knee Procedures IA OFFICE/OUTPATIENT NEW HIGH MDM 60 MINUTES Car Cuellar, ANKITA [address] [place] [address] [facility] [address] [place] [address] Referral ID Status Reason Start Date Expiration Date Visits Requested Visits Authorized [id number] Pending Review Consult and Treat 07/01/2024 12/28/2024 1 1 FERNY Reyes for referral (narrative)No reason for referral information [facility] Work Phone: Summary Purpose Family History No [...] Date M17.12 z01.818 July 14, 2025 9:39am Chief Complaint Admit Date M17.12 z01.818 July [...] and content) DATE CREATED AUTHOR 01/05/2022 [facility] DATE CREATED AUTHOR AUTHOR'S ORGANIZ ATION 05/14/2023 [facility] DATE CREATED AUTHOR AUTHOR'S ORGANIZ ATION 05/14/2023 [employer] DATE CREATED AUTHOR AUTHOR'S ORGANIZ ATION 2023 [facility] DATE CREATED AUTHOR AUTHOR'S ORGANIZ ATION 08/05/2023 [facility] DATE CREATED AUTHOR AUTHOR'S ORGANIZ ATION 09/10/2024 [facility] DATE CREATED AUTHOR AUTHOR'S ORGANIZ ATION 03/06/2025 [facility] DATE CREATED AUTHOR AUTHOR'S ORGANIZ ATION 07/10/2025 [facility] DATE CREATED AUTHOR AUTHOR'S ORGANIZ ATION 07/15/2025 [facility] EPIC DATE CREATED AUTHOR AUTHOR'S ORGANIZ ATION 08/02/2025 [facility] Care Teams (unrecognized sec tion [...] End: August 25, 2024 Rell Adamson MD [facility] Attending Provider Active Start: August 25, 2024 End: August 25, 2024 Team Status: Inactive Member Role Status Dates Avi Yepez MD Primary Care Provider Active Bijan Betts Jr, DO Attending Provider Active Representative Phlebot[employer] Services Relationship Specialty Start Date End Date Avi Yepez MD [address] [phone] Referring Family Medicine 04/24/23 [employer] Relationship Specialty Start Date End Date Avi Yepez MD [address] [phone] Referring Family Medicine 04/24/23 [employer] Relationship Specialty Start Date End Date Avi Yepez MD [address] [phone] Referring Family Medicine 04/24/23 [employer] Relationship Specialty Start Date End Date Avi Yepez MD [address] [phone] PCP - General Family Medicine 06/25/23 Avi Yepez MD [address] [place] [address] Referring Family Medicine 04/24/23 [facility] [employer] Relationship Specialty Start Date End Date Avi Yepez MD [address] [phone] PCP - General Family Medicine 06/25/23 Avi Yepez MD [address] [place] [facility] [address] Referring Family Medicine 04/24/23 [employer]le[employer] Services Relationship Specialty Start Date End Date Avi Yepez MD [address] [facility], [facility] PCP - General Family Medicine 06/25/23 Avi Yepez MD [address] [place] [facility] [address] Referring Family Medicine 04/24/23 Representative Phlebotomy Services Relationship Specialty Start Date End Date Avi Yepez MD [address] [facility], [facility] PCP - General 05/05/24 Representative Phlebotomy Services Relationship Specialty Start Date End Date Avi Yepez MD [address] [facility] [address] PCP - General 05/05/24 Representative Phlebotomy Services Relationship Specialty Start Date End Date Avi Yepez MD [address] [facility] [address] PCP - General 05/05/24 Representative Phlebotomy Services Relationship Specialty Start Date End Date Avi Yepez MD [address] [facility] [address] PCP - General 05/05/24 Representative Phlebotomy Services Relationship Specialty Start Date End Date Avi Yepez MD [address] [facility] [address] PCP - General 05/05/24 Representative Phlebotomy Services Relationship Specialty Start Date End Date Avi Yepez MD [address] [facility] [address] PCP - General 05/05/24 Representative Phlebotomy Services Relationship Specialty Start Date End Date Avi Yepez MD [address] [facility] [address] PCP - General 05/05/24 Representative Phlebotomy Services Relationship Specialty Start Date End Date Avi Yepez MD [address] [facility] [address] PCP - General 05/05/24 Representative Phlebotomy Services Relationship Specialty Start Date End Date Avi Yepez MD [address] [facility] [address] PCP - General 05/05/24 Representative Phlebotomy Services Relationship Specialty Start Date End Date Avi Yepez MD [address] [facility] [address] PCP - General 05/05/24 Representative Phlebotomy Services Relationship Specialty Start Date End Date Avi Yepez MD PCP - General 05/05/24 Representative Phlebotomy Services Relationship Specialty Start Date End Date Avi Yepez MD PCP - General 05/05/24 Representative Phlebotomy Services Relationship Specialty Start Date End Date Avi Yepez MD [address] [facility] [address] PCP - General Family Medicine 06/17/25 Representative Phlebotomy Services Relationship Specialty Start Date End Date Avi Yepez MD [address] [facility] [place] [address] PCP - General Family Medicine 06/17/25 Representative Phlebotomy Services Relationship Specialty Start Date End Date Avi Yepez MD [address] [facility] [place] [address] PCP - General Family Medicine 06/17/25 Team Status: Inactive Member Role Status Dates Car Cuellar PA-C Attending Provider Active Start: July 15, 2025 End: July 15, 2025 Representative Phlebotomy Services Relationship Specialty Start Date End Date Avi Yepez MD [address] [facility] [place] [address] PCP - General Family Medicine 06/17/25 Goals [...] any alcohol or drug abuse patient.[facility] the event this information is protected by the Federal Confidentiality of Alcohol and Drug Abuse Patient Records regulations: The Federal rules restrict any use of the information to criminally investigate or prosecute any alcohol or drug abuse patient.[facility] the event this information is protected by the Federal Confidentiality of Alcohol and Drug Abuse Patient Records regulations: The Federal rules restrict any use of the information to criminally investigate or prosecute any alcohol or drug abuse patient.[facility] the event this information is protected by the Federal Confidentiality of Alcohol and Drug Abuse Patient Records regulations: The Federal rules restrict any use of the information to criminally investigate or prosecute any alcohol or drug abuse patient.[facility] the event this information is protected by the Federal Confidentiality of Alcohol and Drug Abuse Patient Records regulations: The Federal rules restrict any use of the information to criminally investigate or prosecute any alcohol or drug abuse patient.[facility] the event this information is protected by the Federal Confidentiality of Alcohol and Drug Abuse Patient Records regulations: The Federal rules restrict any use of the information to criminally investigate or prosecute any alcohol or drug abuse patient.[facility] Reason for Visit (unrecogniz ed section and content) Reason Comments New Patient Reason Comments Preparations For Procedures Pre-injectio n instructions Reason Comments Low Back Pain New Patient Evaluation Reason Comments Pain Post-op Reason Comments Pain Reason Comments Pain Specialty Diagnoses / Procedures Referred By Contac t Referred To Contact Physical Therapy Diagnoses Internal derangement of left knee Procedures IA OFFICE/OUTPATIENT NEW HIGH MDM 60 MINUTES Car Cuellar PA [address] [facility] [address] [place] [address] Maria E Peck, EFRA Referral ID Status Reason Start Date Expiration Date Visits Requested Visits Authorized [id number] Authorized Consult and Treat 07/01/2024 12/28/2024 60 [...] BE BASED ON THE PRIMARY CLINICAL RECORDS. [employer] [facility]. provides no warranty or guarantee of the accuracy or completeness of information in this document.
--- NOTE | 2025-08-04 08:30 | PM.CN ---
Consult Note: HPI Data of Consult Patient: known to practice within the last 3 years Requesting Physician: Anamaria Waller NP Primary Care Provider: Jason Cervantes MD Consult Narrative Reason for consult: low back pain Narrative: Harrison Nichols a 65 year old male presents for evaluation of chronic low back pain secondary to lumbar ddd, lumbar spondylosis based on prior MRI. pt was evaluated by [facility] and deemed nonsurgical. cannot tolerate formal PT due to increased pain, has attempted HEP > 6 weeks with minimal relief. pain today 0.5 /10 aching increasing to 6/10 with standing, walking, sleeping, transitioning. pain improved mildly with reclining in his chair and heat. utilizing tylenol with no improvement, cannot take NSAIDs on eliquis. prn use of norco through pcp as well as gabapentin without side effects. recently underwent bilateral L4-5 L5-S1 facet medial branch block #1 and #2 with no improvement. >80% improvement in pain and functional ability for at least 3 hours post injection. preop pain up to 6/10 post op pain 0/10. cc:: CC: Anamaria Waller NP [facility] Medical History Migraine ?G43.909 - Migraine, unspecified, not intractable, without status migrainosus (ICD-10) Colon polyp ?K63.5 - Polyp of colon (ICD-10) Sleep apnea ?G47.30 - Sleep apnea, unspecified (ICD-10) Atrial fibrillation ?I48.91 - Unspecified atrial fibrillation (ICD-10) Erectile dysfunction ?N52.9 - Male erectile dysfunction, unspecified (ICD-10) Hypokalemia ?E87.6 - Hypokalemia (ICD-10) New onset a-fib ?I48.91 - Unspecified atrial fibrillation (ICD-10) H/O multiple concussions ?Z87.820 - Personal history of traumatic brain injury (ICD-10) Arthritis ?M19.90 - Unspecified osteoarthritis, unspecified site (ICD-10) Bulging lumbar disc ?M51.36 - Other intervertebral disc degeneration, lumbar region (ICD-10) Chronic GERD ?K21.9 - Gastro-esophageal reflux disease without esophagitis (ICD-10) Hyperlipidemia ?E78.5 - Hyperlipidemia, unspecified (ICD-10) Hypertension ?I10 - Essential (primary) hypertension (ICD-10) Surgical History History of arthroscopy of knee (07/2024) ?Z98.890 - Other specified postprocedural states (ICD-10) H/O nasal septoplasty ?Z98.890 - Other specified postprocedural states (ICD-10) H/O left heart catheterization by ventricular puncture ?Z98.890 - Other specified postprocedural states (ICD-10) Hx of cholecystectomy ?Z90.49 - Acquired absence of other specified parts of digestive tract (ICD-10) Family History Sister Family history of myocardial infarction Family history of diabetes mellitus Father Family history of cancer Family history of myocardial infarction Family history of hypertension Family history of diabetes mellitus Mother Brain aneurysm Grandmother Family history of stroke Social History Within the past year, how often did you have a drink containing alcohol: monthly or less Within the past year, how many standard drinks containing alcohol did you have on a typical day: 1 or 2 Within the past year, how often did you have six or more drinks on one occasion: never Total score: 0 Score interpretation: A score less than 4 is consistent with normal alcohol consumption. Smoking status: Never smoker Non-prescribed substance use: cannabis (any form) Previous occupational history: Retired Highest level of school completed/degree received: Bachelor's degree Are you now , , , , never or living with a partner: In a typical week, how many times do you talk on the telephone with family, friends, or neighbors: twice per week How often do you get together with friends or relatives: twice per week How often do you attend islam or cheondoism services: 4 or more times per year Do you belong to any clubs or organizations such as islam groups unions, fraternal or athletic groups, or school groups: no Total score: 3 Score interpretation: A score of greater than or equal to 2 indicates the lowest level of social isolation. Little interest or pleasure in doing things: not at all Feeling down, depressed, or hopeless: several days Feel stressed/tense/nervous/anxious/difficulty sleeping: not at all Do you think of yourself as: straight/heterosexual Gender Identity: male Meds Home Medications and Allergies Home Medications ?Medication ?Instructions ?Recorded ?Confirmed ?Type aspirin 81 mg capsule 81 mg PO DAILY 05/07/24 08/01/25 History chlorthalidone 25 mg tablet 25 mg PO QAM 05/07/24 08/01/25 History gabapentin 300 mg capsule 300 mg PO BID 05/07/24 08/01/25 History rosuvastatin 20 mg tablet 20 mg PO .QHS 05/07/24 08/01/25 History apixaban 5 mg tablet (Eliquis) 5 mg PO BID #60 tabs 05/08/24 08/01/25 Rx metoprolol tartrate 25 mg tablet 25 mg PO BID #60 tabs 05/08/24 08/01/25 Rx potassium chloride 20 mEq 20 meq PO BID #60 tabs 05/08/24 08/01/25 Rx tablet,extended release hydrocodone 5 mg-acetaminophen 325 1 tab PO Q6H PRN pain 08/17/24 08/01/25 History mg tablet pantoprazole 40 mg tablet,delayed 40 mg PO DAILY 12/13/24 08/01/25 History release Allergies Allergy/AdvReac Type Severity Reaction Status Date / Time amoxicillin Allergy Intermediate Rash Verified 08/01/25 08:26 thiopental (From Pentothal) Allergy delayed Verified 08/01/25 08:26 emergence Exam Constitutional Documenting provider has reviewed patient's vital signs: yes Common normals: no apparent distress, oriented x3, healthy appearing, alert and well nourished General appearance: cooperative [facility] Common normals: normocephalic, hearing grossly normal bilaterally and moist oral mucous membranes Head and scalp: normocephalic Eye Common normals: PERRL Pupil: PERRL Neck & C-Spine Common normals: full ROM General: normal visual inspection Chest Common normals: inspection of chest normal Respiratory Common normals: normal respiratory effort, no retractions and no use of accessory muscles Back & Pelvis Lumbar spine/lower back: ROM limited, pain with ROM, lumbar spinal tenderness Lumbar spinal tenderness location: L2, L3, L4 and L5 and straight leg raise negative bilaterally Other: strength 5/5 in BLE sensation intact BLE myofascial spasm noted below Neuro Common normals: oriented x3 Sensorium/orientation: alert Psych Common normals: mental status grossly normal, thought process normal, cooperative, affect normal, speech normal and activity/motor behavior normal Speech: normal speech Thought process: normal thought process Results Additional Findings Additional findings: If on a controlled substance or opioids, I have checked an [place] report on this patient and there are no aberrancies noted in the prescribing history.??If on a controlled substance or opioid a drug screen was completed and reviewed within the last year, and if there has not been a drug screen completed we ordered one today to monitor higher risk, state monitored pain medication use. As part of providing excellent, safe, comprehensive care, the following was completed at our patient's visit: 1. A medication reconciliation and review to ensure accurate knowledge of current/active medications, including asking our patients to inform us about any [id number] medications or herbal remedies/nutritional supplements/alternative remedies. 2. A review to specifically ensure our patients have had annual screening for screening for depression, screening for tobacco use, and screening for unhealthy alcohol use. For concerning screenings had a discussion with the patient, provided patient education, and recommended follow-up with primary care provider when appropriate. If patient noted with a risk of falling, they received education on strength, gait, and balance training to prevent future risk of falling. Portions of this note may have been carried over from the previous visit and updated as appropriate. Please note this office utilizes paper charting in addition to the electronic medical record. A list of current medications, vitals, and PMH is available there as the clinical staff outside of myself do not have access to [employer] charting during the clinic day operations. As part of providing quality comprehensive care the current medications, vitals, and PMH were reviewed in the paper chart. Assessment and Plan Assessment and Plan (1) Lumbar spondylosis: Assessment and Plan: The patient has had over 3 months of moderate to severe low back pain with functional impairment and inadequate response to conservative care including NSAIDS (unless there are contraindication such as concurrent blood thinners), multiple oral or topical pain medications, and home exercise program/physical therapy.? Patient has completed >6 weeks of guided home exercise program and/or formal physical therapy program without relief of their symptoms.? I have reviewed the imaging of the lumbar spine and no red flags were identified.? The imaging reveals radiographic findings consistent with lumbar facet arthropathy, lumbar spondylosis, lumbar bulging disc The Oswestry Disability Index was completed, and the patient scored a 22%.? The patient noted the following:?? moderate pain with standing, lifting, ADLs, travel We discussed the risks and benefits of the procedure with the patient, and we are NOT planning on using sedation as outlined in the guidelines from Medicare unless there is a documented reason that sedation would be strongly recommended.??The procedure will be completed with fluoroscopic guidance.? 06/15/25 bilateral L2-3 L3-4 facet medial branch block preop pain 1/10 post op pain 0/10 for 15 minutes 07-04-25 bilateral L4-5 L5-S1 facet medial branch block #1 08/01/25 bilateral L4-5 L5-S1 facet medial branch block #2 (2) Myofascial pain: Plan bilateral L4-5 L5-S1 facet medial RFA for facet mediated pain continue medication management through PCP continue transdermal cream 3-4x/day to affected areas, finding benefit f/u 1 month after RFA
== END 2025-08-04 07:53 | disposition home or self-care (01) ==
LOC: PM 07:53
PROVIDERS: PCP Family Medicine; Visit Provider Nurse Practitioner
DX: M47.816 Spondylosis without myelopathy or radiculopathy, lumbar region (principal); M79.18 Myalgia, other site
CPT/HCPCS: G0463

== ENCOUNTER 2025-10-10 09:18 | Day surgery (SDC) | payer OTHER, SELFPAY ==
[2025-10-10 09:34] VITALS: BP 133/87; PULSE 82; TEMP 36.7; O2SAT 95
[2025-10-10 10:45] VITALS: BP 167/81; PULSE 87; O2SAT 97
[2025-10-10 10:46] VITALS: BP 155/92; PULSE 78; O2SAT 97
[2025-10-10] MEDS: BUPIVACAINE HCL 0.25% PF 25 MG/10 ML VIAL 4 ML INJ (10:47)
[2025-10-10] MEDS: LIDOCAINE HCL 2% 400 MG/20 ML MDV 12 ML INJ (10:48)
[2025-10-10] MEDS: METHYLPREDNISOLONE ACETATE 40 MG/ML VIAL 80 MG INJ (10:48)
--- NOTE | 2025-10-10 10:58 | P.ON_ITS ---
Date of procedure: 10/10/25 Pre-op diagnosis: Pain due to lumbar spondylosis without myelopathy Post-op diagnosis: same as pre-op Procedure: Procedure: Bilateral L4-5, L5-S1 radiofrequency ablation Medications: Bupivacaine 0.25% 4cc, depomedrol 80mg, lidocaine 2% 6cc The patient was seen and examined in the preoperative holding area.? The site was marked.? Written informed consent was obtained and placed on the chart.? The patient was brought to the medical procedure unit and placed in the prone position.? A timeout was completed verifying correct patient, procedure, positioning, and special requirements.? The skin overlying the target points, the designated medial branch, were prepped and draped in the usual sterile fashion.? The target point was achieved with a 20-gauge 15 cm with a 10 mm curved active tip radiofrequency cannula under direct fluoroscopic visualizati on.? The needle was inserted at level L4 on the right side. Needle tip position was confirmed with lateral fluoroscopic position.? Motor stimulation was carried out at 2 Hz up to 5 volts with the absence of extremity activity.? This was repeated at level L5, S1 on right side.?? Sensory stimulation was carried out.? Concordant pain was realized at the above- mentioned sites.? Then radiofrequency lesioning was carried out times 90 seconds at 80 degrees times 2 lesions at each level.? The radiofrequency probe was removed prior to cannula removal.? The above-mentioned injectate was placed in 1 mL increments.? The needle was removed. The same procedure, with the same steps, was then completed on the left side at the same levels. Insertion sites were covered.? The patient was taken to the postoperative recovery area and monitored for an appropriate length of time before being found suitable for discharge in the company of a responsible adult. Anesthesia: Local Surgeon: Evelyne Polk Pathology: none sent Condition: stable Disposition: no change
== END 2025-10-10 11:05 | disposition home or self-care (01) ==
PROVIDERS: PCP Family Medicine; Visit Provider Anesthesiology
DX: M47.816 Spondylosis without myelopathy or radiculopathy, lumbar region (principal); G89.29 Other chronic pain
CPT/HCPCS: 64635; 64636; J0665; J1010